=== PATIENT | female | born 1970 | race Caucasian/White ===

== ENCOUNTER 2017-11-08 07:46 | Day surgery (SDC) | payer MEDICARE, MEDICAID, SELFPAY ==
[2017-11-08 08:20] VITALS: BP 112/68; PULSE 53; RESP 18; TEMP 35.8; O2SAT 99; BMI 63.3
--- NOTE | 2017-11-08 09:40 | RAD_ITS ---
PROCEDURE: Cervical facet joint block DATE OF EXAMINATION: November 08, 2017. INDICATION: Female, 47 years old. Chronic neck pain. FLUOROSCOPY TIME (if supplied): (0:11) minutes/seconds Fluoroscopic services provided for left C4-C7 facet joint block. RAD/Cerv Spine 2 or 3 Views IMPRESSION: Imaging provided for left C4-C7 facet joint block. Electronically Signed: Sabino Ackerman MD at 11:33 EST Tel [phone], Service support ,
[2017-11-08] MEDS: MethylPREDNISolone Acetate 80 MG/ML Vial (09:55)
[2017-11-08] MEDS: Bupivacaine 0.25% 30 ML Vial (09:55)
[2017-11-08 10:07] VITALS: BP 112/68; BP 118/73; PULSE 52; RESP 16; TEMP 36.4; O2SAT 100
[2017-11-08 10:12] VITALS: BP 110/72; BP 112/68; PULSE 52; RESP 16; O2SAT 100
[2017-11-08 10:15] VITALS: BP 112/68; BP 118/74; PULSE 50; RESP 16; O2SAT 100
[2017-11-08 10:16] VITALS: BP 112/68; BP 121/73; PULSE 74; RESP 16; TEMP 36.4; O2SAT 99
[2017-11-08 10:46] VITALS: BP 112/68
--- NOTE | 2017-11-08 13:20 | OP.PCM_ITS ---
Problem List (1) Cervical spondylosis Status: Chronic (2) Degenerative disc disease, cervical Status: Chronic (3) Facet arthropathy, cervical Status: Chronic Report of Operation Date of Procedure: 11/08/17 Pre-Operative Diagnosis: Cervical spondylosis, cervical degenerative disc disease, cervical facet arthropathy Post-Operative Diagnosis: Cervical spondylosis, cervical degenerative disc disease, cervical facet arthropathy Surgery/Procedure Performed:: Left-sided cervical facet steroid injection C4, C5 , C6, C7 Description of Surgical Findings:: PROCEDURE: Left-sided cervical facet steroid injection C4, C5, C6, C7 PREOPERATIVE DIAGNOSES: Cervical spondylosis, cervical degenerative disc disease, and cervical facet arthropathy POSTOPERATIVE DIAGNOSES: Cervical spondylosis, cervical degenerative disc disease, and cervical facet arthropathy ANESTHESIA: MAC COMPLICATIONS: None BLOOD LOSS: Minimal PROCEDURE IN DETAIL: History and physical today was reviewed. Risks and benefits of the procedure were explained. The patient understood, agreed to our procedure, and informed consent was obtained. IV inserted per routine protocol. The patient was taken to the operating room, placed in a prone position with a pillow positioned underneath the chest. The neck area was prepped and draped in a sterile fashion using iodine x3. Under fluoroscopy guidance, on AP view, C4 through C7 vertebral bodies were visualized. . Under direct visualization with fluoroscopy at approximately 15-degree angle, starting on the left C4, ending on the left C7, passing through the C5-C6 using a 25-gauge 3-1/2 inch spinal needle, the needle was passed through the skin. The tip of the needle was maneuvered and directed towards the apophyseal junction of each corresponding vertebra. Once the tip of the needle was at the vicinity of the medial branch and in contact with the bone, the needle was redirected more lateral towards the medial branch. Once in contact with the medial branch, the stylet of each needle was then removed. After negative aspiration of blood with CSF and confirmation of AP as well as oblique view, a total of 3 mL of preservative- free 0.25% Marcaine with 80 mg Depo-Medrol was injected in divided doses between those 4 levels. The needles were then removed intact. The patient experienced no signs or symptoms of intrathecal, intravascular injection. The patient experienced no paraesthesia. The procedure was completed without any apparent Difficulty or complication the patient appeared to tolerate well. ASSESSMENT AND PLAN: This is a 47-year-old Female with cervical spondylosis, cervical degenerative disc disease, and cervical facet arthropathy, status post left-sided cervical facet steroid injection C4 through C7. The patient will continue her current medications. The patient will follow up in approximately 2 weeks fo reevaluation.
== END 2017-11-08 10:48 | disposition home or self-care (01) ==
LOC: SDC 07:46 → AC 07:48
PROVIDERS: Family Provider Family Medicine; PCP Family Medicine; Visit Provider Anesthesiology Pain Medicine
PROC: 3E0U3BZ Introduction of Anesthetic Agent into Joints, Percutaneous Approach (ICD-10-PCS; CPT 64490; principal; 2017-11-08 09:35)
DX: M47.892 Other spondylosis, cervical region (principal); M50.30 Other cervical disc degeneration, unspecified cervical region; M46.92 Unspecified inflammatory spondylopathy, cervical region; M48.02 Spinal stenosis, cervical region; M54.12 Radiculopathy, cervical region; M19.119 Post-traumatic osteoarthritis, unspecified shoulder; M75.02 Adhesive capsulitis of left shoulder; M70.62 Trochanteric bursitis, left hip; G89.29 Other chronic pain; Z79.891 Long term (current) use of opiate analgesic; I48.91 Unspecified atrial fibrillation; I27.20 Pulmonary hypertension, unspecified; I07.1 Rheumatic tricuspid insufficiency; I10 Essential (primary) hypertension; R01.1 Cardiac murmur, unspecified; K21.9 Gastro-esophageal reflux disease without esophagitis; F32.9 Major depressive disorder, single episode, unspecified; F41.0 Panic disorder [episodic paroxysmal anxiety]; G43.909 Migraine, unspecified, not intractable, without status migrainosus; Z79.01 Long term (current) use of anticoagulants; Z79.899 Other long term (current) drug therapy
CPT/HCPCS: 64490; 64491; 64492; 72040; J7120

== ENCOUNTER 2017-12-06 07:38 | Day surgery (SDC) | payer MEDICARE, MEDICAID, SELFPAY ==
[2017-12-06 08:02] VITALS: BP 126/68; PULSE 60; RESP 16; TEMP 36.1; O2SAT 98; BMI 64.0
--- NOTE | 2017-12-06 09:30 | RAD_ITS ---
STUDY: GREATER TROCHANTERIC INJECTION LEFT REASON FOR EXAM: Female, 47 years old. Pain. FLUOROSCOPY TIME (if supplied): (0:57) minutes/seconds TECHNIQUE: Imaging provided for left greater trochanteric bursa injection. COMPARISON: None. RAD/Hip 1 view with Pelvis IMPRESSION: Intraoperative imaging provided for left trochanteric injection. Electronically Signed: Sabino Ackerman MD at 9:04 EST Tel [phone], Service support ,
[2017-12-06] MEDS: Bupivacaine 0.25% 30 ML Vial (09:56)
[2017-12-06] MEDS: MethylPREDNISolone Acetate 80 MG/ML Vial (09:56)
[2017-12-06 10:10] VITALS: BP 120/73; BP 126/68; PULSE 65; RESP 16; TEMP 36.7; O2SAT 99
[2017-12-06 10:15] VITALS: BP 123/74; BP 126/68; PULSE 66; RESP 18; O2SAT 99
[2017-12-06 10:20] VITALS: BP 126/68; BP 134/85; PULSE 60; RESP 16; O2SAT 98
[2017-12-06 10:24] VITALS: BP 126/68; BP 128/68; PULSE 62; RESP 18; TEMP 36.4; O2SAT 100
[2017-12-06 10:50] VITALS: BP 126/68
--- NOTE | 2017-12-06 10:57 | OP.PCM_ITS ---
Problem List (1) Trochanteric bursitis of left hip Status: Chronic Report of Operation Date of Procedure: 12/06/17 Pre-Operative Diagnosis: Greater trochanteric bursitis Post-Operative Diagnosis: Greater trochanteric bursitis Surgery/Procedure Performed:: Left greater trochanteric bursa steroid injection under fluoroscopy guidance Description of Surgical Findings:: PROCEDURE: Left sided greater trochanteric bursa steroid injection under fluoroscopy guidance PREOPERATIVE DIAGNOSES: Greater trochanteric bursitis POSTOPERATIVE DIAGNOSES: Greater trochanteric bursitis ANESTHESIA: MAC COMPLICATIONS: None BLOOD LOSS: Minimal PROCEDURE IN DETAIL: History and physical today was reviewed. Risks and benefits of the procedure were explained. The patient understood, agreed to our procedure, and informed consent was obtained. IV inserted per routine protocol. The patient was taken to the operating room, placed in a supine position the left hip area was prepped and draped in a sterile fashion using iodine ?3 under direct visualization with fluoroscopy on AP view the left greater trochanter was visualized the skin and subcutaneous tissue were anesthetized with approximately 3 cc of 1% lidocaine using a 25- gauge regular needle under direct visualization with fluoroscopy on a lateral approach using a 22-gauge 5 inch spinal needle the needle was advanced via the skin the tip of the needle was was maneuvered and directed towards the greater trochanteric bursa once the tip of the needle is at the vicinity of the greater trochanteric bone and bursa after negative aspiration for blood a total of 1 cc of contrast were injected to confirm correct placement of the needle as well as wrapping around the greater trochanteric bursa, after repeated negative aspiration for blood and confirmation AP as well as oblique view a total of 10 cc of preservative-free 0.25% Marcaine with 80 mg of Depo-Medrol were injected in and around the bursa the needle was then removed intact patient experienced no signs or symptoms of intravascular injection patient experienced no paresthesia the procedure was completed without any apparent difficulty any complication and the patient appeared to tolerate well. ASSESSMENT AND PLAN: This is a 47-year-old female with greater trochanteric bursitis status post left greater trochanteric bursa steroid injection under fluoroscopic guidance patient will continue her current medications patient will follow approximately 2 weeks for reevaluation.
== END 2017-12-06 10:50 | disposition home or self-care (01) ==
LOC: SDC 07:41 → AC 07:41
PROVIDERS: Family Provider Family Medicine; PCP Family Medicine; Visit Provider Anesthesiology Pain Medicine
PROC: 3E0U3GC Introduction of Other Therapeutic Substance into Joints, Percutaneous Approach (ICD-10-PCS; CPT 20610; principal; 2017-12-06 09:25)
DX: M70.62 Trochanteric bursitis, left hip (principal); G89.29 Other chronic pain; Y93.9 Activity, unspecified; I10 Essential (primary) hypertension; R01.1 Cardiac murmur, unspecified; I48.91 Unspecified atrial fibrillation; Z79.01 Long term (current) use of anticoagulants; J45.909 Unspecified asthma, uncomplicated; G43.909 Migraine, unspecified, not intractable, without status migrainosus; K21.9 Gastro-esophageal reflux disease without esophagitis; K58.9 Irritable bowel syndrome, unspecified; F41.9 Anxiety disorder, unspecified; F32.9 Major depressive disorder, single episode, unspecified; M06.9 Rheumatoid arthritis, unspecified; E66.01 Morbid (severe) obesity due to excess calories; Z68.44 Body mass index [BMI] 60.0-69.9, adult; M48.02 Spinal stenosis, cervical region; M50.10 Cervical disc disorder with radiculopathy, unspecified cervical region; M46.92 Unspecified inflammatory spondylopathy, cervical region; M47.812 Spondylosis without myelopathy or radiculopathy, cervical region; M19.019 Primary osteoarthritis, unspecified shoulder; M75.00 Adhesive capsulitis of unspecified shoulder; M79.2 Neuralgia and neuritis, unspecified; Z79.52 Long term (current) use of systemic steroids; Z79.891 Long term (current) use of opiate analgesic; Z79.899 Other long term (current) drug therapy
CPT/HCPCS: 20610; 73501; 76000; J7120

== ENCOUNTER → 2018-01-20 10:53 | Outpatient (CLI) | payer MEDICARE, MEDICAID, SELFPAY ==
--- NOTE | 2018-01-20 11:06 | RAD_ITS ---
STUDY: X-RAY - PELVIS AND LEFT HIP REASON FOR EXAM: Female, 47 years old. Left hip pain. TECHNIQUE: Radiological exam, hip, unilateral, with pelvis when performed; 2 or 3 views. COMPARISON: None. FINDINGS: There is a non-specific bowel gas pattern. Normal visualized soft tissue structures. Normal bilateral iliac wings, sacroiliac joints and visualized sacrum. Normal bilateral superior and inferior pubic rami. Normal pubic symphysis. Normal bilateral ischial tuberosities. Normal visualized femoral head. Normal acetabulum. Normal hip joint. RAD/Hip 2-3 Views with Pelvis IMPRESSION: Normal x-ray examination of the pelvis and hip. Electronically Signed: Sabino Ackerman MD at 12:36 EDT Tel [phone], Service support ,
== END ==
PROVIDERS: Family Provider Family Medicine; PCP Family Medicine; Visit Provider Anesthesiology Pain Medicine
DX: M25.552 Pain in left hip (principal)
CPT/HCPCS: 73502

== ENCOUNTER 2018-02-07 12:02 | Day surgery (SDC) | payer MEDICARE, MEDICAID, SELFPAY ==
[2018-02-07] VITALS (7 sets, daily range): BP systolic 116–126; BP diastolic 63–70; PULSE 52–56; RESP 16; TEMP 36.1–36.4; O2SAT 99–100; BMI 67.9
--- NOTE | 2018-02-07 13:10 | RAD_ITS ---
STUDY: X-RAY - SACROILIAC JOINTS REASON FOR EXAM: Female, 47 years old. Left SI joint injection. TECHNIQUE: Fluoroscopic assistance was provided to Dr. Mix. A single intraprocedural fluoroscopic spot view(s) of the sacroiliac joint was obtained. COMPARISON: None. FINDINGS: A metal needle is seen at the inferior aspect of the left sacroiliac joint, and localizing contrast injection opacifies tissues along the inferior margin of the SI joint. RAD/Fluoro Guided Needle Placement IMPRESSION: Fluoroscopic guidance for left sacroiliac joint injection. Electronically Signed: Humble Parker MD at 15:56 EDT , Service support ,
[2018-02-07] MEDS: MethylPREDNISolone Acetate 80 MG/ML Vial (13:54)
[2018-02-07] MEDS: Bupivacaine 0.25% 30 ML Vial (13:54)
--- NOTE | 2018-02-07 14:05 | PCM.OPRPT ---
Problem List (1) Sacroiliitis Status: Chronic (2) Sacrococcygeal disorders, not elsewhere classified Status: Chronic Report of Operation Date of Procedure: 02/07/18 Pre-Operative Diagnosis: Sacroiliitis, sacroiliac joint dysfunction Post-Operative Diagnosis: Sacroiliitis, sacroiliac joint dysfunction Surgery/Procedure Performed:: Left sacroiliac joint steroid injection under fluoroscopic guidance Description of Surgical Findings:: PROCEDURE: Left-sided sacroiliac joint steroid injection under fluoroscopic guidance PREOPERATIVE DIAGNOSIS: Sacroiliitis, sacroiliac joint dysfunction POSTOPERATIVE DIAGNOSIS: Sacroiliitis, sacroiliac joint dysfunction ANESTHESIA: MAC COMPLICATIONS: None BLOOD LOSS: Minimal PROCEDURE IN DETAIL: History and physical today was reviewed. Risks and benefits of the procedure were explained. The patient understood, agreed to our procedure, and informed consent was obtained. IV inserted per routine protocol. The patient was taken to the operating room, placed in a prone position with a pillow positioned underneath the abdomen. The left side of the lower back and buttock area was prepped and draped in a sterile fashion using iodine ?3 under fluoroscopic guidance on AP with approximately 15? angle the left sacroiliac joint with visualized the skin and subcutaneous tissue and size approximately 3 cc of 1% lidocaine using a 25-gauge regular needle under direct visualization fluoroscopy at approximately 15? angle using a 22-gauge 5 inch spinal needle the needle passed through the skin the tip of the needle's maneuver and directed towards the inferior one third of the posterior SI joint once the tip of the needle was at the vicinity of the joint after negative aspiration for blood or CSF a total of 1 cc of contrast were injected to confirm correct placement of the needle as well as cephalocaudad spread the confirmation was obtained on AP as well as lateral view after repeated negative aspiration confirmation a total of 4 cc of preservative-free 0.25% Marcaine with 40 mg of Depo-Medrol were injected in and around the SI joint the needle was then removed intact. The patient experienced no signs or symptoms intrathecal, intravascular injection. The patient experienced no paraesthesia. The procedure was completed without any apparent difficult, any complication. The patient appeared to tolerate well. ASSESSMENT AND PLAN: This is a 47-year-old Female with sacroiliitis, sacroiliac joint dysfunction status post left sacroiliac joint steroid injection under fluoroscopic guidance. The patient will continue her current medications. The patient will follow in approximately 2 weeks for possible repeat of the procedure if indicated.
--- NOTE | 2018-02-07 14:17 | OP.PCM_ITS ---
Problem List (1) Sacroiliitis Status: Chronic (2) Sacrococcygeal disorders, not elsewhere classified Status: Chronic Report of Operation Date of Procedure: 02/07/18 Pre-Operative Diagnosis: Sacroiliitis, sacroiliac joint dysfunction Post-Operative Diagnosis: Sacroiliitis, sacroiliac joint dysfunction Surgery/Procedure Performed:: Left sacroiliac joint steroid injection under fluoroscopic guidance Description of Surgical Findings:: PROCEDURE: Left-sided sacroiliac joint steroid injection under fluoroscopic guidance PREOPERATIVE DIAGNOSIS: Sacroiliitis, sacroiliac joint dysfunction POSTOPERATIVE DIAGNOSIS: Sacroiliitis, sacroiliac joint dysfunction ANESTHESIA: MAC COMPLICATIONS: None BLOOD LOSS: Minimal PROCEDURE IN DETAIL: History and physical today was reviewed. Risks and benefits of the procedure were explained. The patient understood, agreed to our procedure, and informed consent was obtained. IV inserted per routine protocol. The patient was taken to the operating room, placed in a prone position with a pillow positioned underneath the abdomen. The left side of the lower back and buttock area was prepped and draped in a sterile fashion using iodine ?3 under fluoroscopic guidance on AP with approximately 15? angle the left sacroiliac joint with visualized the skin and subcutaneous tissue and size approximately 3 cc of 1% lidocaine using a 25- gauge regular needle under direct visualization fluoroscopy at approximately 15 ? angle using a 22-gauge 5 inch spinal needle the needle passed through the skin the tip of the needle's maneuver and directed towards the inferior one third of the posterior SI joint once the tip of the needle was at the vicinity of the joint after negative aspiration for blood or CSF a total of 1 cc of contrast were injected to confirm correct placement of the needle as well as cephalocaudad spread the confirmation was obtained on AP as well as lateral view after repeated negative aspiration confirmation a total of 4 cc of preservative-free 0.25% Marcaine with 40 mg of Depo-Medrol were injected in and around the SI joint the needle was then removed intact. The patient experienced no signs or symptoms intrathecal, intravascular injection. The patient experienced no paraesthesia. The procedure was completed without any apparent difficult, any complication. The patient appeared to tolerate well. ASSESSMENT AND PLAN: This is a 47-year-old Female with sacroiliitis, sacroiliac joint dysfunction status post left sacroiliac joint steroid injection under fluoroscopic guidance. The patient will continue her current medications. The patient will follow in approximately 2 weeks for possible repeat of the procedure if indicated.
== END 2018-02-07 14:46 | disposition home or self-care (01) ==
LOC: SDC 12:03 → AC 12:06
PROVIDERS: Family Provider Family Medicine; PCP Family Medicine; Visit Provider Anesthesiology Pain Medicine
PROC: 3E0U3GC Introduction of Other Therapeutic Substance into Joints, Percutaneous Approach (ICD-10-PCS; CPT 27096; principal; 2018-02-07 13:05)
DX: M46.1 Sacroiliitis, not elsewhere classified (principal); M53.3 Sacrococcygeal disorders, not elsewhere classified; I48.91 Unspecified atrial fibrillation; I10 Essential (primary) hypertension; E07.9 Disorder of thyroid, unspecified; K21.9 Gastro-esophageal reflux disease without esophagitis; F32.9 Major depressive disorder, single episode, unspecified; F41.9 Anxiety disorder, unspecified; M06.862 Other specified rheumatoid arthritis, left knee; M06.861 Other specified rheumatoid arthritis, right knee; G43.909 Migraine, unspecified, not intractable, without status migrainosus; Z79.891 Long term (current) use of opiate analgesic; Z79.01 Long term (current) use of anticoagulants; Z79.899 Other long term (current) drug therapy
CPT/HCPCS: 27096; 76000; 77002; J7120

== ENCOUNTER 2018-02-25 05:24 | Day surgery (SDC) | payer MEDICARE, MEDICAID, SELFPAY ==
--- NOTE | 2018-02-21 11:26 | RAD_ITS ---
STUDY: X-RAY CHEST REASON FOR EXAM: Female, 47 years old. Preoperative evaluation. Shortness of breath. TECHNIQUE: PA and lateral views of the chest. COMPARISON: Comparison is made with prior study dated May 07, 2017. FINDINGS: The lungs are clear and expanded. There is no demonstrated pleural abnormality. Normal size heart. Normal mediastinum and gene. Normal visualized pulmonary arteries. Normal visualized aortic arch and descending thoracic aorta. Normal visualized thoracic spine. Normal visualized ribs, clavicles, and shoulders. There is no demonstrated abnormality of the visualized soft tissue structures of the upper abdomen. RAD/Chest PA and Lateral IMPRESSION: Normal x-ray examination of the chest. Electronically Signed: Sabino Ackerman MD at 12:17 EDT Tel [phone], Service support ,
[2018-02-21 13:12] LABS: Hematocrit 35.4 % (37-47); Hemoglobin 11.5 g/dl (12.0-15.0); Mean Corp Hgb Conc 32.5 g/gl (32-36); Mean Corpuscular Hgb 28.8 pg (27.0-32.0); Mean Corpuscular Volume 88.5 fL (81-99); Mean Platelet Vol. 10.8 fl (6.2-12.0); Platelet Count 317 K/mm3 (150-450); RBC Distribution Width CV 16.2 % (11.6-14.6); RBC Distribution Width SD 52.3 fl (35.1-43.9); White Blood Count 6.8 K/mm3 (4.4-11.0)
[2018-02-21 13:13] LABS: Scan Indicated on CBC? Y/N NO
[2018-02-21 14:01] LABS: BUN 13 mg/dL (7-18); BUN/Creat Ratio 14.9 RATIO (10-20); Calcium,Total 8.9 mg/dL (8.5-10.1); Chloride 105 mmol/L (98-107); Creatinine, Serum 0.87 mg/dL (0.55-1.02); EST Glomerular Filtration Rate 74 mL/min (>60); Est Glom Filt Rate - Afr Amer 90 mL/min (>60); Glucose 75 mg/dL (74-106); Potassium 4.2 mmol/L (3.5-5.1); Sodium Level 135 mmol/L (136-145)
[2018-02-21 14:02] LABS: Anion Gap 9 (5-15); Thyroid Stim Hormone (TSH) 1.78 uIU/mL (0.358-3.74)
[2018-02-25] VITALS (7 sets, daily range): BP systolic 98–139; BP diastolic 42–79; PULSE 50–58; RESP 14–16; TEMP 36.2–36.7; O2SAT 97–99; BMI 66.6
[2018-02-25] MEDS: Cefazolin 2 GM in 0.9% Normal Saline 100 ML IV (07:15)
--- NOTE | 2018-02-25 07:27 | PCM.OPRPT ---
Report of Operation Date of Procedure: 02/25/18 Pre-Operative Diagnosis: Recurrent rotator cuff tear left shoulder Post-Operative Diagnosis: Recurrent rotator cuff left shoulder Surgery/Procedure Performed:: Revision rotator cuff repair left shoulder Description of Surgical Findings:: Returns tear supraspinatus japanese interpreter: Phuc Harkins Type of Anesthesia:: General Anesthesiologist: Octaviano Samuel Estimated Blood Loss (mL): 25 Fluids Replaced: See anesthesia report Description of Procedure: Implants: Arthrex double loaded 5.5 mm corkscrew ?1, speed bridge construct 1 of the medial plants failed fixation, 2 swivel locks for lateral row Surgical indications: Sienna is a 47-year-old female who had previously undergone rotator cuff repair by me several months ago. MRI does reveal that the rotator cuff repair had failed. She has elected to undergo revision of that repair Procedure description: Patient was greeted in the preoperative area. Their left shoulder was marked with surgical marker. Preoperative antibiotics were administered. The patient was then taken to the operating suite in a stable condition. After adequate anesthesia was obtained and it was secured there placed in standard beachchair position. All bony prominences were well-padded her head was secured in a beachchair positioner. The arm was then prepped and draped in the usual sterile fashion. Surgical timeout was performed surgery was commenced. Standard posterior viewing portal was made and 30? arthroscope was introduced into the glenohumeral joint. Anterior portal was made under direct visualization. Extensive debridement of the anterior capsule was performed evaluation of the shoulder itself was performed with the following findings: Previous repair sutures intact as well as the anchor in place however the tissue pulled away from the prepared greater tuberosity. Spinal needle was used to place a PDS suture through this tear for easier identification from the bursal side. The subacromial space was then entered and extensive debridement of the subacromial bursa was performed. I then used a taper and floater and remove the previous suture material. I debrided the recurrent tear which revealed approximately 2-1/2 cm mesenteric shaped tear I then debrided the greater tuberosity and decorticated this for bleeding bony surface for repair. I did require sensory portals because of the patient's size and for easier suture management. A passport was placed however because of the patient's size I did require a formal cannula as the passport was not long enough. Once I had obtained viable rotator cuff tissue were then percutaneously placed speed bridge medial row and passes through the rotator cuff. As I was placing tension on the suture did identify that the anchor itself lost fixation and pulled out of patient's poor bone quality. Because of this I then placed a double loaded 5.5 mm corkscrew which did purchase nicely I then used a scorpion suture passer to pass the 2 suture limbs in a horizontal mattress type fashion through the supraspinatus. I then parked these in the accessory posterior lateral portal. The second speed bridge was then placed the medial row posteriorly good purchase was obtained with this and the suture was then passed with the scorpion suture passer. At this point I retrieved the horizontal mattress sutures and tied a modified Road sliding locking knot with 3 half hitches to secure the rotator cuff to the prepared bone at the medial row excellent loop and not security was obtained and approximation of the rotator cuff to the decorticated bone was achieved. At this point I then prepared for the lateral row with thermal wand and retrieved one suture limb from each horizontal mattress knot as well as 1 of the fiber tapes posteriorly from the speed bridge. These were placed in a swivel lock and placed in the lateral aspect the greater tuberosity to create lateral repair excellent purchase was obtained and these were trimmed at the anchor. The remaining sutures were then retrieved through the cannula placed in a swivel lock and placed posteriorly to this to complete the double row for anchor repair. Was extremely happy with the fixation and approximation of the rotator cuff to the prepared bone. This point all instruments were removed the arthroscopy portals were closed in a standard fashion with 4-0 nylon Physician food service assistant was integral in all portions of this procedure. They assisted with positioning the patient, draping the extremity, holding retractors, closing the wound, and applying the dressing. This was all done under my direct supervision. The physician food service assistant was essential for a successful, efficient surgery. - Admit VTE Documentation VTE Present on Admission: Yes VTE Mechan Device Prophylaxis: SCD's, Knee High CARON Hose VTE Pharm Prophylaxis ordered?: Yes
--- NOTE | 2018-02-25 07:36 | DCINST_ITS ---
Discharge Diet: No Restrictions Discharge Activity: May Not Drive May shower in (days): 1 Ice area for (Minutes): 20 - Ice area for 20 minutes each hour while awake Call your doctor if your incision/area has: Continuous Slow Oozing, Sudden Increased Bleeding, Increased Pain/ Swelling, Increased Redness, Foul Smelling Discharge Call your doctor if you observe: Fever of 101 or Higher, Coldness, Increased Pain, Numbness or Tingling, Change in Color Suture Line Care: Avoid Pulling/Pushing Change Dressing in (Days):: 3 Remove Dressing in (days):: 3 Cleanse incision/area with: Soap & Water Additional Instructions: Maintain UltraSling for 6 weeks, may remove for bathing and therapy Allergies/Adverse Reactions: Allergies amoxicillin trihydrate [From Augmentin] Allergy (Verified 11/03/17 14:03) Hives Iodinated Contrast- Oral and IV Dye [CONTRASTS] Allergy (Verified 11/03/17 14:03 ) Anaphylaxis potassium clavulanate [From Augmentin] Allergy (Verified 11/03/17 14:03) Hives Medications to take at Discharge Amlodipine [Norvasc] 10 mg PO QHS 08/01/14 Furosemide [Lasix] 80 mg PO BID 08/01/14 Isosorbide Mononitrate [Imdur] 60 mg PO BID 08/01/14 Lisinopril [Zestril] 10 mg PO DAILY 08/01/14 Topiramate [Topamax] 100 mg PO BID 08/01/14 Apixaban [Eliquis] 5 mg PO BID 05/07/17 Escitalopram Oxalate [Lexapro] 20 mg PO DAILY 05/07/17 Gabapentin [Neurontin] 300 mg PO TID 05/07/17 Melatonin 10 mg PO QHS 05/07/17 Omeprazole [Prilosec] 20 mg PO DAILY 05/07/17 Sotalol HCl [Betapace AF (Beta Bijan)] 120 mg PO BID 05/07/17 Cyclobenzaprine [Flexeril] 10 mg PO TID 07/13/17 Dicyclomine HCl [Bentyl] 20 mg PO TIDAC #20 capsule 10/07/17 Ondansetron [Zofran Odt] 4 mg PO Q8H PRN PRN #10 tablet 10/07/17 Oxycodone [Oxyir] 5 mg PO Q4H PRN PRN 7 Days #56 tablet 02/25/18 The following prescriptions were given: Oxycodone [Oxyir] 5 mg PO Q4H PRN PRN 7 Days #56 tablet PRN Reason: Pain Please Follow Up With: Abdiel Leija, When: as scheduled
[2018-02-25] MEDS: Bupivacaine Mpf 0.5% 30 ML VIAL (09:07)
== END 2018-02-25 11:44 | disposition home or self-care (01) ==
LOC: SDC 05:25 → AC 05:26
PROVIDERS: Family Provider Family Medicine; PCP Family Medicine; Visit Provider Orthopaedic Surgery
PROC: (CPT 29827; principal; 2018-02-25 06:55)
DX: M75.102 Unspecified rotator cuff tear or rupture of left shoulder, not specified as traumatic (principal); I48.91 Unspecified atrial fibrillation; R01.1 Cardiac murmur, unspecified; E66.01 Morbid (severe) obesity due to excess calories; Z68.44 Body mass index [BMI] 60.0-69.9, adult; J45.909 Unspecified asthma, uncomplicated; K21.9 Gastro-esophageal reflux disease without esophagitis; K58.9 Irritable bowel syndrome, unspecified; G43.909 Migraine, unspecified, not intractable, without status migrainosus; F32.9 Major depressive disorder, single episode, unspecified; F41.9 Anxiety disorder, unspecified; E07.9 Disorder of thyroid, unspecified; Z98.84 Bariatric surgery status; Z86.73 Personal history of transient ischemic attack (TIA), and cerebral infarction without residual deficits; Z79.01 Long term (current) use of anticoagulants; Z79.899 Other long term (current) drug therapy
CPT/HCPCS: 01630; 29827; 36415; 71046; 80048; 84443; 85027; J7120; C1713; J2405

== ENCOUNTER 2018-05-23 09:59 | Day surgery (SDC) | payer MEDICARE, MEDICAID, SELFPAY ==
[2018-05-23 10:32] VITALS: BP 115/48; PULSE 66; RESP 18; TEMP 36; O2SAT 100; BMI 67.9
[2018-05-23] MEDS: Bupivacaine 0.25% 30 ML Vial (11:18)
[2018-05-23] MEDS: MethylPREDNISolone Acetate 80 MG/ML Vial (11:18)
[2018-05-23 11:25] VITALS: BP 110/54; BP 115/48; PULSE 66; RESP 22; TEMP 36.5; O2SAT 98
[2018-05-23 11:30] VITALS: BP 108/56; BP 115/48; PULSE 66; RESP 22; O2SAT 100
[2018-05-23 11:35] VITALS: BP 108/52; BP 115/48; PULSE 66; RESP 20; O2SAT 100
[2018-05-23 11:40] VITALS: BP 111/56; BP 115/48; PULSE 66; RESP 18; TEMP 36.5; O2SAT 100
[2018-05-23 12:00] VITALS: BP 115/48
--- NOTE | 2018-05-23 13:05 | PCM.OPRPT ---
Problem List (1) Sacrococcygeal disorders, not elsewhere classified Status: Chronic (2) Sacroiliitis Status: Chronic Report of Operation Date of Procedure: 05/23/18 Pre-Operative Diagnosis: Sacroiliitis, sacroiliac joint dysfunction Post-Operative Diagnosis: Sacroiliitis, sacroiliac joint dysfunction Surgery/Procedure Performed:: Left sacroiliac joint steroid injection under fluoroscopic guidance Description of Surgical Findings:: PROCEDURE: Left sacroiliac joint steroid injection under fluoroscopic guidance PREOPERATIVE DIAGNOSIS: Sacroiliitis, sacroiliac joint dysfunction POSTOPERATIVE DIAGNOSIS: Sacroiliitis, sacroiliac joint dysfunction ANESTHESIA: MAC COMPLICATIONS: None BLOOD LOSS: Minimal PROCEDURE IN DETAIL: History and physical today was reviewed. Risks and benefits of the procedure were explained. The patient understood, agreed to our procedure, and informed consent was obtained. IV inserted per routine protocol. The patient was taken to the operating room, placed in a prone position with a pillow positioned underneath the abdomen. The lower back and buttock area was prepped and draped in a sterile fashion using iodine ?3 under fluoroscopy guidance on an AP view the left SI joint was visualized the skin and subcutaneous tissue were anesthetized with approximately 5 cc of 1% lidocaine using a 25-gauge regular needle under direct visual visualization with fluoroscopy at approximately 15? angle starting on the left sacroiliac joint using a 22-gauge 3-1/2 inch spinal needle the needle was advanced via the skin the tip of the needle's maneuver and directed towards the inferior one third of the posterior SI joint once tip of the needle was at the vicinity of the SI joint after negative aspiration for blood or CSF and confirmation of AP as well as oblique view a total of 1 cc of contrast were injected in divided doses to confirm correct placement of the needle as well as cephalocaudad spread after repeated negative aspiration and confirmation a total of 4 cc of preservative-free 0.25% Marcaine with 40 mg of Depo-Medrol were injected in divided doses between both levels. The needles were then removed intact. The patient experienced no signs or symptoms intrathecal, intravascular injection. The patient experienced no paraesthesia. The procedure was completed without any apparent difficult, any complication. The patient appeared to tolerate well. ASSESSMENT AND PLAN: This is a 48-year-old Female with sacroiliitis, sacroiliac joint dysfunction status post left sacroiliac joint steroid injection under fluoroscopic guidance. The patient will continue her current medications. The patient will follow in approximately 2 weeks for possible repeat of the procedure if indicated.
== END 2018-05-23 12:03 | disposition home or self-care (01) ==
LOC: SDC 10:00
PROVIDERS: Family Provider Family Medicine; PCP Family Medicine; Visit Provider Anesthesiology Pain Medicine
PROC: 3E0U3GC Introduction of Other Therapeutic Substance into Joints, Percutaneous Approach (ICD-10-PCS; CPT 27096; principal; 2018-05-23 11:05)
DX: M46.1 Sacroiliitis, not elsewhere classified (principal); M53.3 Sacrococcygeal disorders, not elsewhere classified; M47.22 Other spondylosis with radiculopathy, cervical region; M48.02 Spinal stenosis, cervical region; M50.30 Other cervical disc degeneration, unspecified cervical region; M19.019 Primary osteoarthritis, unspecified shoulder; M75.00 Adhesive capsulitis of unspecified shoulder; G89.29 Other chronic pain; M70.62 Trochanteric bursitis, left hip; I10 Essential (primary) hypertension; E07.9 Disorder of thyroid, unspecified; R01.1 Cardiac murmur, unspecified; E66.01 Morbid (severe) obesity due to excess calories; Z68.44 Body mass index [BMI] 60.0-69.9, adult; G43.909 Migraine, unspecified, not intractable, without status migrainosus; J45.909 Unspecified asthma, uncomplicated; K58.9 Irritable bowel syndrome, unspecified; K21.9 Gastro-esophageal reflux disease without esophagitis; E78.00 Pure hypercholesterolemia, unspecified; F41.9 Anxiety disorder, unspecified; F32.9 Major depressive disorder, single episode, unspecified; M06.9 Rheumatoid arthritis, unspecified; Z79.891 Long term (current) use of opiate analgesic; Z79.01 Long term (current) use of anticoagulants; Z79.899 Other long term (current) drug therapy
CPT/HCPCS: 01992; 64493; 76000; 77002; J7120; J2405

== ENCOUNTER 2018-06-08 13:03 | Emergency (ER) | payer MEDICARE, MEDICAID, SELFPAY ==
[2018-06-08 13:04] VITALS: BP 125/83; PULSE 71; RESP 22; TEMP 36.6; O2SAT 99; BMI 66.2
--- NOTE | 2018-06-08 13:49 | ED.DEP ---
ED Disposition - Plan for ED Patient: Chief Complaint: Anxiety Instructions: ED Panic Attack Prescriptions: Lorazepam [Ativan] 1 mg PO TID PRN #6 tablet PRN Reason: Anxiety Referrals: Andres Wade MD [Primary Care Provider] - [facility] [GROUP OF PHYSICIANS] -
[2018-06-08] MEDS: LORazepam 1 MG Tablet PO (13:53)
--- NOTE | 2018-06-08 13:53 | ED.VISSUMM ---
- ER Visit Summary Date of Service: 06/08/18 Chief Complaint: Panic attack History of Present Illness: The patient is a 48 F presenting with panic attack. She states her symptoms started 2 days ago. She has been arguing with her daughter. She was brought in today by her objective c developer. She takes Vistaril as needed for anxiety. Her counselor is requesting a benzo on a short-term basis. Her appointment with the counseling center to see the psychiatrist is on June 22. She denies suicidal thoughts or plan. Denies chest pain or shortness of breath. Denies other complaints. Physical Examination: Vitals are stable. Patient is afebrile. Alert no acute distress. HEENT exam is unremarkable. Neck is supple. Lungs are clear and equal bilaterally. Heart is regular rate and rhythm. Abdomen is soft nontender nondistended. Extremities are unremarkable. Skin is warm and dry. No focal neurologic deficit. Anxious. No suicidal ideation Remainder of exam is unremarkable. Emergency Department Course and Treatment: Patient is given Ativan p.o. with improvement. She is given a prescription for Ativan #6. Discussed with the counseling center, they are unable to move up her appointment. She will follow-up at her scheduled appointment on June 22. She is advised to return to the ED for any worsening complaints. Disposition: Discharge home Impression: Anxiety This note was generated with [employer] dictation software. It may contain incorrect words, spelling, and punctuation that were not noted in review of the chart prior to signing ED Disposition - Plan for ED Patient: Chief Complaint: Anxiety Instructions: ED Panic Attack Prescriptions: Lorazepam [Ativan] 1 mg PO TID PRN #6 tablet PRN Reason: Anxiety Referrals: [facility] [GROUP OF PHYSICIANS] - Andres Wade MD [Primary Care Provider] -
[2018-06-08 14:11] VITALS: BP 140/81; PULSE 63; RESP 16; O2SAT 100
== END 2018-06-08 14:12 | disposition home or self-care (01) ==
LOC: ED 13:41
PROVIDERS: Emergency Provider Emergency Medicine; Family Provider Family Medicine; PCP Family Medicine
DX: F41.9 Anxiety disorder, unspecified (principal); F32.9 Major depressive disorder, single episode, unspecified; I10 Essential (primary) hypertension; Z79.899 Other long term (current) drug therapy
CPT/HCPCS: 99283

== ENCOUNTER 2018-08-08 07:38 | Day surgery (SDC) | payer MEDICARE, MEDICAID, SELFPAY ==
[2018-08-08 07:58] VITALS: BP 127/90; PULSE 62; RESP 20; TEMP 36.6; O2SAT 100; BMI 69.3
[2018-08-08] MEDS: MethylPREDNISolone Acetate 80 MG/ML Vial (08:36)
[2018-08-08] MEDS: Bupivacaine 0.5% PF 10 ML VIAL (08:37)
[2018-08-08 08:46] VITALS: BP 127/90; BP 96/46; PULSE 60; RESP 16; TEMP 36.6; O2SAT 99
--- NOTE | 2018-08-08 08:49 | PCM.OPRPT ---
Problem List (1) Cervical spondylosis Status: Chronic (2) Degenerative disc disease, cervical Status: Chronic (3) Facet arthropathy, cervical Status: Chronic Report of Operation Date of Procedure: 08/08/18 Pre-Operative Diagnosis: Cervical spondylosis, cervical degenerative disc disease, cervical facet arthropathy Post-Operative Diagnosis: Cervical spondylosis, cervical degenerative disc disease, cervical facet arthropathy Surgery/Procedure Performed:: Left-sided cervical facet steroid injection at C4, C5, C6, C7 Description of Surgical Findings:: PROCEDURE: Left-sided cervical facet steroid injection C4, C5, C6, C7 PREOPERATIVE DIAGNOSES: Cervical spondylosis, cervical degenerative disc disease, and cervical facet arthropathy POSTOPERATIVE DIAGNOSES: Cervical spondylosis, cervical degenerative disc disease, and cervical facet arthropathy ANESTHESIA: MAC COMPLICATIONS: None BLOOD LOSS: Minimal PROCEDURE IN DETAIL: History and physical today was reviewed. Risks and benefits of the procedure were explained. The patient understood, agreed to our procedure, and informed consent was obtained. IV inserted per routine protocol. The patient was taken to the operating room, placed in a prone position with a pillow positioned underneath the chest. The neck area was prepped and draped in a sterile fashion using iodine x3. Under fluoroscopy guidance, on AP view, C4 through C7 vertebral bodies were visualized, at approximately 10 degrees starting on the left C4 ending on the left C7 passing through the C5-C6 using a 25-gauge 3-1/2 inch spinal needle the needle was advanced via the skin through the needle's maneuver and directed towards the epiphyseal junction of each corresponding vertebra once the tip of the needle was at the vicinity of the medial branch and contact with the bone after negative aspiration for blood or CSF and confirmation AP oblique as well as lateral view a total of 4 cc of preservative-free 0.25% Marcaine with 80 mg of Depo-Medrol were injected in divided doses between those 4 levels the needles were then removed intact patient experienced no sinus symptoms of intrathecal or intravascular injection patient experienced no paresthesia the procedure was completed without any apparent difficulty any complication the patient appeared to tolerate well. ASSESSMENT AND PLAN: This is a 48-year-old Female with cervical spondylosis, cervical degenerative disc disease, and cervical facet arthropathy, status post left-sided cervical facet steroid injection C4 through C7. The patient will continue her current medications. The patient will follow up in approximately 2 weeks fo reevaluation.
[2018-08-08 08:50] VITALS: BP 127/90; BP 93/60; PULSE 60; RESP 16; O2SAT 99
[2018-08-08 08:55] VITALS: BP 112/47; BP 127/90; PULSE 57; RESP 14; TEMP 36.4; O2SAT 100
[2018-08-08 09:15] VITALS: BP 127/90
--- NOTE | 2018-08-08 09:15 | RAD_ITS ---
STUDY: X-RAY - CERVICAL SPINE REASON FOR EXAM: Female, 48 years old. Cervical block facet at C4-C7 TECHNIQUE: 4 view(s) of the cervical spine were obtained. COMPARISON: None FINDINGS: 4 intraoperative spot fluoroscopy images were obtained. No acute findings. Please see performing physician's report for full details. RAD/Cerv Spine 4 or 5 Views IMPRESSION: As above Electronically Signed: Andrew Weinstein DO at 12:42 EST Tel , Service support ,
== END 2018-08-08 09:50 | disposition home or self-care (01) ==
LOC: SDC 07:40
PROVIDERS: Family Provider Family Medicine; PCP Family Medicine; Referring Provider Anesthesiology Pain Medicine; Visit Provider Anesthesiology Pain Medicine
PROC: 3E0U3BZ Introduction of Anesthetic Agent into Joints, Percutaneous Approach (ICD-10-PCS; CPT 64490; principal; 2018-08-08 09:10)
DX: M47.892 Other spondylosis, cervical region (principal); M50.30 Other cervical disc degeneration, unspecified cervical region; M46.82 Other specified inflammatory spondylopathies, cervical region; I10 Essential (primary) hypertension; I48.91 Unspecified atrial fibrillation; E03.9 Hypothyroidism, unspecified; K21.9 Gastro-esophageal reflux disease without esophagitis; F32.9 Major depressive disorder, single episode, unspecified; F41.9 Anxiety disorder, unspecified; Z79.01 Long term (current) use of anticoagulants; Z79.899 Other long term (current) drug therapy
CPT/HCPCS: 64491; 64492; 64490; 72050; J7120; J3490

== ENCOUNTER 2018-12-01 09:45 | Outpatient (RCR) | payer MEDICARE, MEDICAID, SELFPAY ==
[2018-11-08 16:30] VITALS: BMI 63.3
[2018-11-10 11:07] VITALS: BP 110/72; PULSE 67; RESP 18; TEMP 36; BMI 73.8
--- NOTE | 2018-11-10 12:31 | HP.PCM_ITS ---
(1) Ulcer of right lower extremity with fat layer exposed Status: Acute Current Visit: Yes Code(s): L97.912 - Non-pressure chronic ulcer of unspecified part of right lower leg with fat layer exposed (2) Morbid obesity Status: Chronic Current Visit: Yes Code(s): E66.01 - Morbid (severe) obesity due to excess calories (3) Bilateral lower extremity edema Status: Chronic Current Visit: Yes Code(s): R60.0 - Localized edema History of Present Illness Chief Complaint: Right lower extremity ulcers. History of Wound: Ms. Molina is a 48-year-old who was referred to the wound center by her primary care physician due to right lower extremity ulcers. Per patient, started out with redness pain and swelling for which she was managed for cellulitis. Subsequently developed ulcerations in her calf and enciso. She feels well other at this time and denies chills, fever, nausea, vomitting or change in her bowel habit. Past Medical History Past Medical History: Chronic Problems Trochanteric bursitis of left hip (Chronic) Sacroiliitis (Chronic) Sacrococcygeal disorders, not elsewhere classified (Chronic) Morbid obesity (Chronic) Bilateral lower extremity edema (Chronic) Facet arthropathy, cervical (Chronic) Degenerative disc disease, cervical (Chronic) Cervical spondylosis (Chronic) Allergies/Adverse Reactions: Allergies amoxicillin trihydrate [From Augmentin] Allergy (Verified 08/08/18 07:53) Hives baclofen Allergy (Verified 11/10/18 11:36) Unknown gabapentin Allergy (Verified 11/10/18 11:36) Unknown Iodinated Contrast- Oral and IV Dye [CONTRASTS] Allergy (Verified 08/08/18 07:53) Anaphylaxis potassium clavulanate [From Augmentin] Allergy (Verified 08/08/18 07:53) Hives shrimp Allergy (Verified 11/10/18 11:36) Unknown valerian root Allergy (Uncoded 11/10/18 11:36) Unknown Home Medications: Ambulatory Orders Medication Instructions Recorded Furosemide [Lasix] 80 mg PO BID 08/01/14 Isosorbide Mononitrate [Imdur] 120 mg PO DAILY 08/01/14 Topiramate [Topamax] 100 mg PO TID 08/01/14 Apixaban [Eliquis] 5 mg PO BID 05/07/17 Omeprazole [Prilosec] 20 mg PO DAILY 05/07/17 Sotalol HCl [Betapace AF (Beta 80 mg PO BID 05/07/17 Bijan)] Cyclobenzaprine [Flexeril] 10 mg PO TID PRN 07/13/17 Ondansetron [Zofran Odt] 4 mg PO Q8H PRN PRN #10 tablet 10/07/17 Amitriptyline HCl 25 mg PO 06/08/18 Dicyclomine HCl [Bentyl] 10 mg PO 4X/DAY 06/08/18 Hydroxyzine Pamoate [Vistaril] 100 mg PO TID PRN PRN 06/08/18 Spironolactone 25 mg PO DAILY 06/08/18 ALPRAZolam [Xanax] 0.5 mg PO QHS PRN 07/01/18 Albuterol Inhaler [Ventolin Hfa 2 puff INHALATION Q6H PRN PRN 11/10/18 (SP)] Amlodipine [Norvasc] 10 mg PO DAILY 11/10/18 Colestipol Tablet [Colestid Tablet] 3 gm PO DAILY 11/10/18 Doxycycline Monohydrate [Monodox] 100 mg PO BID 11/10/18 Ferrous Sulfate 325 mg PO DAILY@0800 11/10/18 Furosemide [Lasix] 20 mg PO DAILY 11/10/18 Guaifenesin [Mucinex] 600 mg PO BID PRN 11/10/18 Meclizine HCl [Antivert] 25 mg PO TID PRN 11/10/18 Nystatin Powder [Mycostatin Powder] 1 applic TOPICAL 4X/DAY 11/10/18 Sertraline HCl [Zoloft] 50 mg PO DAILY 11/10/18 Sumatriptan Succinate [Imitrex] 100 mg PO .X1 PRN 11/10/18 Smoking Status: Never smoker Review of Systems Constitutional: Denies: Anorexia, Chills Eyes: Denies: Blurred vision, Pain Cardiovascular: Denies: Chest Pain, Claudication Respiratory: Denies: Cough, Hemoptysis Gastrointestinal: Denies: Abdominal Pain, Hematemesis, Vomiting Genitourinary: Denies: Hematuria Skin: Denies: Jaundice - Physical Exam Vital Signs Temp Pulse Resp BP 96.8 F L 67 18 110/72 11/10/18 11:07 11/10/18 11:07 11/10/18 11:07 11/10/18 11:07 General: Alert, Oriented x3, Cooperative, No apparent distress HEENT: Atraumatic, Normocephalic Oral: Moist Mucosa Neck: Supple Lungs: Normal air movement Cardiovascular: Regular rate, Regular Rhythm, Normal S1, Normal S2 Abdomen: Non Tender, Obese Extremities: No cyanosis, Edema Skin: Ulcer/ Wound Wound Measurements and Assessment WC - Nurse 1 - General Ulcer Measurement Start: 11/10/18 11:04 Freq: Status: Active Protocol: Activity Type Activity Date Activity User E-Sign Co-Sign Detail Recorded Client Recorded Date Recorded By Document 11/10/18 11:07 AN [id number] 11/10/18 11:37 AN 11/10/18 11:07 Wound Center Nurse 1 [Ulcer Assessment] #2 RIGHT ENCISO -Current Size (cm) - Length 0.8 -Current Size (cm) - Width 0.4 -Current Size (cm) - Depth 0.1 -Total Square Cm 0.32 -Date of Last Picture (Recall this 11/10/18 field) -Photo Taken Yes -Epithelialization None Present -Tunneling No -Undermining/Tunneling No -Circular Undermining No -Classification - Thickness Unclassifiable (Eschar Covered ) -Exudate Amt None Present -Wound Margin Distinct, Outline Attached -Granulation Amt None Present (0 %) -Necrosis Amt Large (67-100%) -Necrotic Tissue Type Eschar -Texture (Martha-wound Skin Appearance) Assessed Localized Edema -Moisture (Martha-wound Skin Appearance Assessed ) -Color (Martha-wound Skin Appearance) Assessed Erythema -Temperature (Martha-wound Skin No Abnormality Appearance) (Pt Warm) -Tenderness on Palpation (Martha-wound Yes Skin Appearance) -Ulcer Cleansing Rinsed/ Irrigated with Saline -Foul Odor after Cleansing Yes -Anesthetic Used 5% Lidocaine Gel #1 RIGHT POSTERIOR CALF CLUSTER -Current Size (cm) - Length 13.5 -Current Size (cm) - Width 11.7 -Current Size (cm) - Depth 0.1 -Total Square Cm 157.95 -Date of Last Picture (Recall this 11/17/18 field) -Photo Taken Yes -Epithelialization None Present -Tunneling No -Undermining/Tunneling No -Circular Undermining No -Classification - Thickness Full Thickness without Exposed Support Structure -Exudate Amt Large -Exudate Type Serous -Wound Margin Flat & Intact -Granulation Amt None Present (0 %) -Granulation Quality Red -Slough/Fibrin Yes -Necrosis Amt Large (67-100%) -Necrotic Tissue Type Adherent Slough -Texture (Martha-wound Skin Appearance) Assessed Localized Edema -Moisture (Martha-wound Skin Appearance Assessed ) Weeping -Color (Martha-wound Skin Appearance) Assessed Erythema -Temperature (Martha-wound Skin No Abnormality Appearance) (Pt Warm) -Tenderness on Palpation (Martha-wound Yes Skin Appearance) -Ulcer Cleansing Rinsed/ Irrigated with Saline -Foul Odor after Cleansing No -Anesthetic Used 5% Lidocaine Gel [Edema Assessment] -Right Calf (cm) 63.5 -Right Ankle (cm) 34.7 -Left Calf (cm) 59.5 -Left Ankle (cm) 31.3 WC - Nurse 2 - General Ulcer CM Notes Start: 11/10/18 11:04 Freq: Status: Active Protocol: Activity Type Activity Date Activity User E-Sign Co-Sign Detail Recorded Client Recorded Date Recorded By Document 11/10/18 11:55 MW [id number] 11/10/18 12:01 MW 11/10/18 11:55 Wound Center Nurse 2 [Procedure/Treatment] #2 RIGHT ENCISO -Time 11:58 -Correct Patient Yes -Correct Side, Site, Position Yes -Correct Procedure Yes -Procedure Performed Yes -Type of Procedure Debridement -Clinical Debridement Subcutaneous -Post Debridement Size (cm) - Length 0.8 -Post Debridement Size (cm) - Width 0.3 -Post Debridement Size (cm) - Depth 0.1 -Total Square Cm 0.24 -Wound/Ulcer Outcome Not Healed -Ulcer Cleansing Rinsed/ Irrigated with Saline -Foul Odor after Cleansing No -Bioengineered Tissue No -Bleeding Controlled with Pressure -Offloading No -Treatment Response Procedure Tolerated Well #1 RIGHT POSTERIOR CALF CLUSTER -Time 11:56 -Correct Patient Yes -Correct Side, Site, Position Yes -Correct Procedure Yes -Procedure Performed Yes -Type of Procedure Debridement -Clinical Debridement Subcutaneous -Post Debridement Size (cm) - Length 13.0 -Post Debridement Size (cm) - Width 11.0 -Post Debridement Size (cm) - Depth 0.1 -Total Square Cm 143.00 -Wound/Ulcer Outcome Not Healed -Ulcer Cleansing Rinsed/ Irrigated with Saline -Foul Odor after Cleansing No -Bioengineered Tissue No -Bleeding Controlled with Pressure -Offloading No -Treatment Response Procedure Tolerated Well [See Physician Procedure note for Specifics] Pain Scale: 0-10 Numeric [Pain] -Is Patient Pain Free? Yes Musculoskeletal: No Muscle Wasting Neurological: Cranial nerves II-XII grossly intact Psych/Mental Status: Normal Affect Debridement Note Post-Debridement Measurements/Treatment WC - Nurse 2 - General Ulcer CM Notes Start: 11/10/18 11:04 Freq: Status: Active Protocol: Activity Type Activity Date Activity User E-Sign Co-Sign Detail Recorded Client Recorded Date Recorded By Document 11/10/18 11:55 MW [id number] 11/10/18 12:01 MW 11/10/18 11:55 Wound Center Nurse 2 #2 RIGHT ENCISO -Time 11:58 -Correct Patient Yes -Correct Side, Site, Position Yes -Correct Procedure Yes -Procedure Performed Yes -Type of Procedure Debridement -Clinical Debridement Subcutaneous -Post Debridement Size (cm) - Length 0.8 -Post Debridement Size (cm) - Width 0.3 -Post Debridement Size (cm) - Depth 0.1 -Total Square Cm 0.24 -Wound/Ulcer Outcome Not Healed -Ulcer Cleansing Rinsed/ Irrigated with Saline -Foul Odor after Cleansing No -Bioengineered Tissue No -Bleeding Controlled with Pressure -Offloading No -Treatment Response Procedure Tolerated Well #1 RIGHT POSTERIOR CALF CLUSTER -Time 11:56 -Correct Patient Yes -Correct Side, Site, Position Yes -Correct Procedure Yes -Procedure Performed Yes -Type of Procedure Debridement -Clinical Debridement Subcutaneous -Post Debridement Size (cm) - Length 13.0 -Post Debridement Size (cm) - Width 11.0 -Post Debridement Size (cm) - Depth 0.1 -Total Square Cm 143.00 -Wound/Ulcer Outcome Not Healed -Ulcer Cleansing Rinsed/ Irrigated with Saline -Foul Odor after Cleansing No -Bioengineered Tissue No -Bleeding Controlled with Pressure -Offloading No -Treatment Response Procedure Tolerated Well Pain Scale: 0-10 Numeric Is Patient Pain Free? Yes Wound debrided: Right lower extremity, calf Wound Grade/Stage: Stage II Type of Debridement: Excisional debridement Anesthesia Used: 4% Lidocaine Solution Depth: Down to and including healthy tissue, in the subcutaneous layer Percentage of wound debrided: 100 Instrument Used: 3mm curette Tissue Removed: Slough and devitalized tissue Severity: Fat Layer Exposed Amount of bleeding with debridement: Mild Bleeding Controlled with: Pressure Patient tolerated procedure well - Additional Wound Wound debrided: Right enciso Wound Grade/Stage: Stage II Type of Debridement: Excisional debridement Anesthesia Used: 4% Lidocaine Solution Depth: Down to and including healthy tissue, in the subcutaneous layer Percentage of wound debrided: 100 Instrument Used: 3mm curette Tissue Removed: Slough and devitalized tissue Amount of bleeding with debridement: Mild Bleeding Controlled with: Pressure Patient tolerated procedure: Patient tolerated procedure well Assessment/Plan Active Problems Ulcer of right lower extremity with fat layer exposed (Acute) Morbid obesity (Chronic) Bilateral lower extremity edema (Chronic) Assessment: Same as above. Plan: Debridement done as documented above. Procedure was well-tolerated. Fibracol to open surfaces with Xeroform over right posterior lower extremity. Fibracol over the right enciso ulcer. Change daily. SurePress for edema management. Elevate lower extremity when seated and in bed. Increased protein intake recommended. Her questions were answered and she was advised to call with any further questions or concerns. Follow-up in 1 week. This note was generated with [employer] software. It may contain incorrect words, spelling, and punctuation that were not noted in checking the note before signing.
[2018-11-24 10:06] VITALS: BP 124/83; PULSE 62; RESP 18; TEMP 35.7; BMI 73.8
--- NOTE | 2018-11-24 11:35 | PN.PCM_ITS ---
(1) Ulcer of right lower extremity with fat layer exposed Status: Acute Current Visit: Yes Code(s): L97.912 - Non-pressure chronic ulcer of unspecified part of right lower leg with fat layer exposed (2) Morbid obesity Status: Chronic Current Visit: Yes Code(s): E66.01 - Morbid (severe) obesity due to excess calories (3) Bilateral lower extremity edema Status: Chronic Current Visit: Yes Code(s): R60.0 - Localized edema (4) Ulcer of left lower extremity with fat layer exposed Status: Acute Current Visit: Yes Code(s): L97.922 - Non-pressure chronic ulcer of unspecified part of left lower leg with fat layer exposed (5) Toe ulcer, right Status: Acute Current Visit: Yes Code(s): L97.519 - Non-pressure chronic ulcer of other part of right foot with unspecified severity Comment: Third and fourth. Type of Wound Chief Complaint: Right lower extremity ulcers. History of Wound: Ms. Molina is a 48-year-old who was referred to the wound center by her primary care physician due to right lower extremity ulcers. Per patient, started out with redness pain and swelling for which she was managed for cellulitis. Subsequently developed ulcerations in her calf and enciso. She feels well other at this time and denies chills, fever, nausea, vomitting or change in her bowel habit. Progress of Wound: Right enciso ulcer is healed. Right posterior cluster improving. New left posterior and right toe ulcers. - Physical Exam Vital Signs Temp Pulse Resp BP 96.2 F L 62 18 124/83 H 11/24/18 10:06 11/24/18 10:06 11/24/18 10:06 11/24/18 10:06 General: Alert, Oriented x3, Cooperative, No apparent distress HEENT: Atraumatic, Normocephalic Oral: Moist Mucosa Neck: Supple Lungs: Normal air movement Abdomen: Obese Extremities: No cyanosis, Edema Skin: Ulcer/ Wound Wound Measurements and Assessment WC - Nurse 1 - General Ulcer Measurement Start: 11/10/18 11:04 Freq: Status: Active Protocol: Activity Type Activity Date Activity User E-Sign Co-Sign Detail Recorded Client Recorded Date Recorded By Document 11/24/18 10:06 AN [id number] 11/24/18 10:38 AN 11/24/18 10:06 Wound Center Nurse 1 [Ulcer Assessment] #5 RIGHT FOURTH TOE POSTERIOR -Current Size (cm) - Length 0.5 -Current Size (cm) - Width 1.5 -Current Size (cm) - Depth 0.4 -Total Square Cm 0.75 -Date of Last Picture (Recall this 11/24/18 field) -Photo Taken Yes -Epithelialization None Present -Tunneling No -Undermining/Tunneling No -Classification - Thickness Full Thickness without Exposed Support Structure -Exudate Amt Medium -Exudate Type Serosanguineous -Wound Margin Distinct, Outline Attached -Granulation Amt Large (67-100%) -Granulation Quality Red -Slough/Fibrin No -Necrosis Amt None Present (0 %) -Structure Exposed None/Limited to Skin Breakdown -Texture (Martha-wound Skin Appearance) Assessed -Moisture (Martha-wound Skin Appearance Assessed ) Maceration -Color (Martha-wound Skin Appearance) Assessed -Temperature (Martha-wound Skin Cool/Cold Appearance) -Tenderness on Palpation (Martha-wound Yes Skin Appearance) -Ulcer Cleansing Rinsed/ Irrigated with Saline -Foul Odor after Cleansing No -Anesthetic Used 4% Lidocaine Solution #4 RIGHT THIRD TOE POSTERIOR -Current Size (cm) - Length 0.2 -Current Size (cm) - Width 1.1 -Current Size (cm) - Depth 0.3 -Total Square Cm 0.22 -Date of Last Picture (Recall this 11/24/18 field) -Photo Taken Yes -Epithelialization None Present -Tunneling No -Undermining/Tunneling No -Circular Undermining No -Classification - Thickness Full Thickness without Exposed Support Structure -Exudate Amt Medium -Exudate Type Serosanguineous -Wound Margin Distinct, Outline Attached -Granulation Amt Large (67-100%) -Granulation Quality Red -Slough/Fibrin No -Structure Exposed None/Limited to Skin Breakdown -Texture (Martha-wound Skin Appearance) Assessed -Moisture (Martha-wound Skin Appearance Assessed ) Maceration -Color (Martha-wound Skin Appearance) Assessed -Temperature (Martha-wound Skin Cool/Cold Appearance) -Tenderness on Palpation (Martha-wound Yes Skin Appearance) -Ulcer Cleansing Rinsed/ Irrigated with Saline -Foul Odor after Cleansing No -Anesthetic Used 4% Lidocaine Solution #3 LEFT POSTERIOR LOWER LEG -Current Size (cm) - Length 4.5 -Current Size (cm) - Width 2.5 -Current Size (cm) - Depth 0.1 -Total Square Cm 11.25 -Date of Last Picture (Recall this 11/24/18 field) -Photo Taken Yes -Epithelialization None Present -Tunneling No -Undermining/Tunneling No -Circular Undermining No -Classification - Thickness Full Thickness without Exposed Support Structure -Exudate Amt Small -Exudate Type Serosanguineous -Wound Margin Distinct, Outline Attached -Granulation Amt Large (67-100%) -Granulation Quality Red -Slough/Fibrin No -Necrosis Amt None Present (0 %) -Texture (Martha-wound Skin Appearance) Assessed Localized Edema -Moisture (Martha-wound Skin Appearance Assessed ) Weeping -Color (Martha-wound Skin Appearance) Assessed -Temperature (Martha-wound Skin Cool/Cold Appearance) -Tenderness on Palpation (Martha-wound Yes Skin Appearance) -Ulcer Cleansing Rinsed/ Irrigated with Saline -Foul Odor after Cleansing No -Anesthetic Used 4% Lidocaine Solution #2 RIGHT ENCISO -Current Size (cm) - Length 0.1 -Current Size (cm) - Width 0.1 -Current Size (cm) - Depth 0.1 -Total Square Cm 0.01 #1 RIGHT POSTERIOR CALF CLUSTER -Current Size (cm) - Length 13.5 -Current Size (cm) - Width 11.5 -Current Size (cm) - Depth 0.1 -Total Square Cm 155.25 -Photo Taken No -Epithelialization Small 1-33% -Tunneling No -Undermining/Tunneling No -Circular Undermining No -Classification - Thickness Full Thickness without Exposed Support Structure -Exudate Amt Medium -Exudate Type Serous -Wound Margin Flat & Intact -Granulation Amt Medium (34-66%) -Granulation Quality Red -Necrosis Amt Medium (34-66%) -Necrotic Tissue Type Adherent Slough -Structure Exposed None/Limited to Skin Breakdown -Texture (Martha-wound Skin Appearance) Assessed -Moisture (Martha-wound Skin Appearance Assessed ) -Color (Martha-wound Skin Appearance) Not Assessed -Temperature (Martha-wound Skin No Abnormality Appearance) (Pt Warm) -Tenderness on Palpation (Martha-wound No Skin Appearance) -Ulcer Cleansing Rinsed/ Irrigated with Saline -Foul Odor after Cleansing No -Anesthetic Used 4% Lidocaine Solution [Edema Assessment] -Right Calf (cm) 66 -Right Ankle (cm) 33 -Left Calf (cm) 60 -Left Ankle (cm) 30 WC - Nurse 2 - General Ulcer CM Notes Start: 11/10/18 11:04 Freq: Status: Active Protocol: Activity Type Activity Date Activity User E-Sign Co-Sign Detail Recorded Client Recorded Date Recorded By Document 11/24/18 10:57 AN [id number] 11/24/18 11:12 AN 11/24/18 10:57 Wound Center Nurse 2 [Procedure/Treatment] #5 RIGHT FOURTH TOE POSTERIOR -Time 10:58 -Correct Patient Yes -Correct Side, Site, Position Yes -Correct Procedure Yes -Procedure Performed Yes -Post Debridement Size (cm) - Length 0.4 -Post Debridement Size (cm) - Width 1.0 -Post Debridement Size (cm) - Depth 0.2 -Total Square Cm 0.40 -Wound/Ulcer Outcome Not Healed -Ulcer Cleansing Rinsed/ Irrigated with Saline -Foul Odor after Cleansing No -Bioengineered Tissue No -Bleeding Controlled with Pressure -Treatment Response Procedure Tolerated Well #4 RIGHT THIRD TOE POSTERIOR -Time 10:58 -Correct Patient Yes -Correct Side, Site, Position Yes -Correct Procedure Yes -Procedure Performed Yes -Type of Procedure Debridement -Clinical Debridement Subcutaneous -Post Debridement Size (cm) - Length 0.4 -Post Debridement Size (cm) - Width 1.2 -Post Debridement Size (cm) - Depth 0.2 -Total Square Cm 0.48 -Wound/Ulcer Outcome Not Healed -Ulcer Cleansing Rinsed/ Irrigated with Saline -Foul Odor after Cleansing No -Bioengineered Tissue No -Bleeding Controlled with Pressure -Treatment Response Procedure Tolerated Well #3 LEFT POSTERIOR LOWER LEG -Time 10:58 -Correct Patient Yes -Correct Side, Site, Position Yes -Correct Procedure Yes -Procedure Performed Yes -Type of Procedure Debridement -Clinical Debridement Selective -Post Debridement Size (cm) - Length 4.6 -Post Debridement Size (cm) - Width 2.6 -Post Debridement Size (cm) - Depth 0.1 -Total Square Cm 11.96 -Wound/Ulcer Outcome Not Healed -Ulcer Cleansing Rinsed/ Irrigated with Saline -Foul Odor after Cleansing No -Bioengineered Tissue No -Bleeding Controlled with Pressure -Offloading No -Treatment Response Procedure Tolerated Well #2 RIGHT ENCISO -Time 10:59 -Correct Patient Yes -Correct Side, Site, Position Yes -Correct Procedure Yes -Procedure Performed No -Post Debridement Size (cm) - Length 0 -Post Debridement Size (cm) - Width 0 -Post Debridement Size (cm) - Depth 0 -Total Square Cm 0 -Wound/Ulcer Outcome Healed- Epithelialized #1 RIGHT POSTERIOR CALF CLUSTER -Time 11:00 -Correct Patient Yes -Correct Side, Site, Position Yes -Correct Procedure Yes -Procedure Performed Yes -Type of Procedure Debridement -Clinical Debridement Subcutaneous -Post Debridement Size (cm) - Length 11.0 -Post Debridement Size (cm) - Width 9 -Post Debridement Size (cm) - Depth 0.1 -Total Square Cm 99.0 -Wound/Ulcer Outcome Not Healed -Ulcer Cleansing Rinsed/ Irrigated with Saline -Foul Odor after Cleansing No -Bioengineered Tissue No -Bleeding Controlled with Pressure -Offloading No -Treatment Response Procedure Tolerated Well [See Physician Procedure note for Specifics] Musculoskeletal: No Muscle Wasting Neurological: Cranial nerves II-XII grossly intact Psych/Mental Status: Normal Affect Debridement Note Post-Debridement Measurements/Treatment WC - Nurse 2 - General Ulcer CM Notes Start: 11/10/18 11:04 Freq: Status: Active Protocol: Activity Type Activity Date Activity User E-Sign Co-Sign Detail Recorded Client Recorded Date Recorded By Document 11/10/18 11:55 MW [id number] 11/10/18 12:01 MW Document 11/24/18 10:57 AN [id number] 11/24/18 11:12 AN 11/10/18 11/24/18 11:55 10:57 Wound Center Nurse 2 #5 RIGHT FOURTH TOE POSTERIOR -Time 10:58 -Correct Patient Yes -Correct Side, Site, Position Yes -Correct Procedure Yes -Procedure Performed Yes -Post Debridement Size (cm) - Length 0.4 -Post Debridement Size (cm) - Width 1.0 -Post Debridement Size (cm) - Depth 0.2 -Total Square Cm 0.40 -Wound/Ulcer Outcome Not Healed -Ulcer Cleansing Rinsed/ Irrigated with Saline -Foul Odor after Cleansing No -Bioengineered Tissue No -Bleeding Controlled with Pressure -Treatment Response Procedure Tolerated Well #4 RIGHT THIRD TOE POSTERIOR -Time 10:58 -Correct Patient Yes -Correct Side, Site, Position Yes -Correct Procedure Yes -Procedure Performed Yes -Type of Procedure Debridement -Clinical Debridement Subcutaneous -Post Debridement Size (cm) - Length 0.4 -Post Debridement Size (cm) - Width 1.2 -Post Debridement Size (cm) - Depth 0.2 -Total Square Cm 0.48 -Wound/Ulcer Outcome Not Healed -Ulcer Cleansing Rinsed/ Irrigated with Saline -Foul Odor after Cleansing No -Bioengineered Tissue No -Bleeding Controlled with Pressure -Treatment Response Procedure Tolerated Well #3 LEFT POSTERIOR LOWER LEG -Time 10:58 -Correct Patient Yes -Correct Side, Site, Position Yes -Correct Procedure Yes -Procedure Performed Yes -Type of Procedure Debridement -Clinical Debridement Selective -Post Debridement Size (cm) - Length 4.6 -Post Debridement Size (cm) - Width 2.6 -Post Debridement Size (cm) - Depth 0.1 -Total Square Cm 11.96 -Wound/Ulcer Outcome Not Healed -Ulcer Cleansing Rinsed/ Irrigated with Saline -Foul Odor after Cleansing No -Bioengineered Tissue No -Bleeding Controlled with Pressure -Offloading No -Treatment Response Procedure Tolerated Well #2 RIGHT ENCISO -Time 11:58 10:59 -Correct Patient Yes Yes -Correct Side, Site, Position Yes Yes -Correct Procedure Yes Yes -Procedure Performed Yes No -Type of Procedure Debridement -Clinical Debridement Subcutaneous -Post Debridement Size (cm) - Length 0.8 0 -Post Debridement Size (cm) - Width 0.3 0 -Post Debridement Size (cm) - Depth 0.1 0 -Total Square Cm 0.24 0 -Wound/Ulcer Outcome Not Healed Healed- Epithelialized -Ulcer Cleansing Rinsed/ Irrigated with Saline -Foul Odor after Cleansing No -Bioengineered Tissue No -Bleeding Controlled with Pressure -Offloading No -Treatment Response Procedure Tolerated Well #1 RIGHT POSTERIOR CALF CLUSTER -Time 11:56 11:00 -Correct Patient Yes Yes -Correct Side, Site, Position Yes Yes -Correct Procedure Yes Yes -Procedure Performed Yes Yes -Type of Procedure Debridement Debridement -Clinical Debridement Subcutaneous Subcutaneous -Post Debridement Size (cm) - Length 13.0 11.0 -Post Debridement Size (cm) - Width 11.0 9 -Post Debridement Size (cm) - Depth 0.1 0.1 -Total Square Cm 143.00 99.0 -Wound/Ulcer Outcome Not Healed Not Healed -Ulcer Cleansing Rinsed/ Rinsed/ Irrigated with Irrigated with Saline Saline -Foul Odor after Cleansing No No -Bioengineered Tissue No No -Bleeding Controlled with Pressure Pressure -Offloading No No -Treatment Response Procedure Procedure Tolerated Well Tolerated Well Pain Scale: 0-10 Numeric Is Patient Pain Free? Yes Wound debrided: Right lower extremity posterior (calf) Wound Grade/Stage: Stage II Type of Debridement: Excisional debridement Anesthesia Used: 4% Lidocaine Solution Depth: Down to and including healthy tissue, in the subcutaneous layer Percentage of wound debrided: 100 Instrument Used: 3mm curette Tissue Removed: Slough and devitalized tissue Severity: Fat Layer Exposed Amount of bleeding with debridement: Mild Bleeding Controlled with: Pressure Patient tolerated procedure well - Additional Wound Wound debrided: Left lower extremity cluster Wound Grade/Stage: Stage II Type of Debridement: Selective debridement Anesthesia Used: 4% Lidocaine Solution Depth: Down to and including healthy tissue Percentage of wound debrided: 100 Instrument Used: 3mm curette Tissue Removed: Often devitalized tissue Severity: Limited To Skin Breakdown Amount of bleeding with debridement: Mild Bleeding Controlled with: Pressure Patient tolerated procedure: Patient tolerated procedure well - Additional Wound Wound debrided: Right third toe Wound Grade/Stage: Stage II Type of Debridement: Excisional debridement Anesthesia Used: 4% Lidocaine Solution Depth: Down to and including healthy tissue, in the subcutaneous layer Percentage of wound debrided: 100 Instrument Used: 3mm curette Tissue Removed: Slough and devitalized tissue Severity: Fat Layer Exposed Amount of bleeding with debridement: Mild Bleeding Controlled with: Pressure Patient tolerated procedure: Patient tolerated procedure well - Additional Wound Wound debrided: Right fourth toe Wound Grade/Stage: Stage II Type of Debridement: Excisional debridement Anesthesia Used: 4% Lidocaine Solution Depth: Down to and including healthy tissue, in the subcutaneous layer Percentage of wound debrided: 100 Instrument Used: 3mm curette Tissue Removed: Slough and devitalized tissue Severity: Fat Layer Exposed Amount of bleeding with debridement: Mild Bleeding Controlled with: Pressure Patient tolerated procedure: Patient tolerated procedure well Assessment/Plan Active Problems Ulcer of right lower extremity with fat layer exposed (Acute) Morbid obesity (Chronic) Bilateral lower extremity edema (Chronic) Ulcer of left lower extremity with fat layer exposed (Acute) Toe ulcer, right (Acute) Third and fourth. Assessment: Same as above. Plan: Debridement done as documented above. Procedure was well-tolerated. Fibracol to open surfaces with Xeroform over right and left posterior lower extremity. Fibracol ulcer to right toe ulcers. Change daily. Not able to properly apply SurePress, switch to daily Isreal wraps. Elevate lower extremity when seated and in bed. Increased protein intake recommended. Her questions were answered and she was advised to call with any further questions or concerns. Follow-up in 1 week. This note was generated with [employer] software. It may contain incorrect words, spelling, and punctuation that were not noted in checking the note before signing.
[2018-12-01 09:44] VITALS: BP 125/72; PULSE 70; RESP 22; TEMP 35.9; BMI 73.8
--- NOTE | 2018-12-01 11:16 | PN.PCM_ITS ---
(1) Ulcer of right lower extremity with fat layer exposed Status: Acute Current Visit: Yes Code(s): L97.912 - Non-pressure chronic ulcer of unspecified part of right lower leg with fat layer exposed (2) Morbid obesity Status: Chronic Current Visit: Yes Code(s): E66.01 - Morbid (severe) obesity due to excess calories (3) Bilateral lower extremity edema Status: Chronic Current Visit: Yes Code(s): R60.0 - Localized edema (4) Ulcer of left lower extremity with fat layer exposed Status: Acute Current Visit: Yes Code(s): L97.922 - Non-pressure chronic ulcer of unspecified part of left lower leg with fat layer exposed (5) Toe ulcer, right Status: Acute Current Visit: Yes Code(s): L97.519 - Non-pressure chronic ulcer of other part of right foot with unspecified severity Comment: Third and fourth. Type of Wound Chief Complaint: Right lower extremity ulcers. History of Wound: Ms. Molina is a 48-year-old who was referred to the wound center by her primary care physician due to right lower extremity ulcers. Per patient, started out with redness pain and swelling for which she was managed for cellulitis. Subsequently developed ulcerations in her calf and enciso. She feels well other at this time and denies chills, fever, nausea, vomitting or change in her bowel habit. Progress of Wound: Improving. No new concerns at this time. - Physical Exam Vital Signs Temp Pulse Resp BP 96.6 F L 70 22 H 125/72 H 12/01/18 09:44 12/01/18 09:44 12/01/18 09:44 12/01/18 09:44 General: Alert, Oriented x3, Cooperative, No apparent distress HEENT: Atraumatic, Normocephalic Oral: Moist Mucosa Neck: Supple Lungs: Normal air movement Abdomen: Non Tender, Obese Extremities: No cyanosis, Edema Skin: Ulcer/ Wound Wound Measurements and Assessment WC - Nurse 1 - General Ulcer Measurement Start: 11/10/18 11:04 Freq: Status: Active Protocol: Activity Type Activity Date Activity User E-Sign Co-Sign Detail Recorded Client Recorded Date Recorded By Document 12/01/18 09:44 [facility] [id number] 12/01/18 09:59 BMF 12/01/18 09:44 Wound Center Nurse 1 [Ulcer Assessment] #5 RIGHT FOURTH TOE POSTERIOR -Combined with other wound No -Current Size (cm) - Length 0.2 -Current Size (cm) - Width 1.7 -Current Size (cm) - Depth 0.1 -Total Square Cm 0.34 -Photo Taken No -Epithelialization Small 1-33% -Tunneling No -Undermining/Tunneling No -Circular Undermining No -Exudate Amt None Present -Wound Margin Thickened -Granulation Amt Large (67-100%) -Granulation Quality [place] -Slough/Fibrin No -Necrosis Amt None Present (0 %) -Texture (Martha-wound Skin Appearance) Scarring -Moisture (Martha-wound Skin Appearance Maceration ) -Color (Martha-wound Skin Appearance) Palor -Temperature (Martha-wound Skin No Abnormality Appearance) (Pt Warm) -Tenderness on Palpation (Martha-wound No Skin Appearance) -Ulcer Cleansing Wound Cleanser -Foul Odor after Cleansing No -Anesthetic Used 4% Lidocaine Solution #4 RIGHT THIRD TOE POSTERIOR -Combined with other wound No -Current Size (cm) - Length 0.1 -Current Size (cm) - Width 1.3 -Current Size (cm) - Depth 0.2 -Total Square Cm 0.13 -Photo Taken No -Epithelialization Small 1-33% -Tunneling No -Undermining/Tunneling No -Circular Undermining No -Exudate Amt None Present -Wound Margin Thickened -Granulation Amt Large (67-100%) -Granulation Quality [place] -Slough/Fibrin No -Necrosis Amt None Present (0 %) -Texture (Martha-wound Skin Appearance) Scarring -Moisture (Martha-wound Skin Appearance Maceration ) -Color (Martha-wound Skin Appearance) Palor -Temperature (Martha-wound Skin No Abnormality Appearance) (Pt Warm) -Tenderness on Palpation (Martha-wound No Skin Appearance) -Ulcer Cleansing Wound Cleanser -Foul Odor after Cleansing No -Anesthetic Used 4% Lidocaine Solution #3 LEFT POSTERIOR LOWER LEG -Combined with other wound No -Current Size (cm) - Length 0.1 -Current Size (cm) - Width 0.1 -Current Size (cm) - Depth 0.1 -Total Square Cm 0.01 -Epithelialization Large 67-100% -Tunneling No -Undermining/Tunneling No -Circular Undermining No -Temperature (Martha-wound Skin No Abnormality Appearance) (Pt Warm) -Tenderness on Palpation (Martha-wound No Skin Appearance) -Ulcer Cleansing Wound Cleanser -Foul Odor after Cleansing No -Anesthetic Used 4% Lidocaine Solution #1 RIGHT POSTERIOR CALF CLUSTER -Combined with other wound No -Current Size (cm) - Length 5.9 -Current Size (cm) - Width 11 -Current Size (cm) - Depth 0.1 -Total Square Cm 64.9 -Photo Taken No -Epithelialization Small 1-33% -Tunneling No -Undermining/Tunneling No -Circular Undermining No -Exudate Amt Small -Exudate Type Serous -Wound Margin Flat & Intact -Granulation Amt Small (1-33%) -Granulation Quality [place] -Slough/Fibrin Yes -Necrosis Amt Large (67-100%) -Necrotic Tissue Type Adherent Slough -Texture (Martha-wound Skin Appearance) Scarring -Moisture (Martha-wound Skin Appearance Assessed ) -Color (Martha-wound Skin Appearance) Assessed Erythema -Temperature (Martha-wound Skin No Abnormality Appearance) (Pt Warm) -Tenderness on Palpation (Martha-wound No Skin Appearance) -Ulcer Cleansing Wound Cleanser -Foul Odor after Cleansing No -Anesthetic Used 4% Lidocaine Solution [Edema Assessment] -Lower Limb Edema Present Yes -Right Calf (cm) 67 -Right Ankle (cm) 34.5 -Left Calf (cm) 61 -Left Ankle (cm) 30.8 WC - Nurse 2 - General Ulcer CM Notes Start: 11/10/18 11:04 Freq: Status: Active Protocol: Activity Type Activity Date Activity User E-Sign Co-Sign Detail Recorded Client Recorded Date Recorded By Document 12/01/18 10:38 MW [id number] 12/01/18 10:44 MW 12/01/18 10:38 Wound Center Nurse 2 [Procedure/Treatment] #5 RIGHT FOURTH TOE POSTERIOR -Time 10:40 -Correct Patient Yes -Correct Side, Site, Position Yes -Correct Procedure Yes -Procedure Performed Yes -Type of Procedure Debridement -Clinical Debridement Subcutaneous -Post Debridement Size (cm) - Length 0.2 -Post Debridement Size (cm) - Width 0.5 -Post Debridement Size (cm) - Depth 0.1 -Total Square Cm 0.10 -Wound/Ulcer Outcome Not Healed -Ulcer Cleansing Rinsed/ Irrigated with Saline -Foul Odor after Cleansing No -Bioengineered Tissue No -Bleeding Controlled with Pressure -Offloading No -Treatment Response Procedure Tolerated Well #4 RIGHT THIRD TOE POSTERIOR -Time 10:40 -Correct Patient Yes -Correct Side, Site, Position Yes -Correct Procedure Yes -Procedure Performed No -Post Debridement Size (cm) - Length 0 -Post Debridement Size (cm) - Width 0 -Post Debridement Size (cm) - Depth 0 -Total Square Cm 0 -Wound/Ulcer Outcome Healed- Epithelialized #3 LEFT POSTERIOR LOWER LEG -Time 10:40 -Correct Patient Yes -Correct Side, Site, Position Yes -Correct Procedure Yes -Procedure Performed No -Post Debridement Size (cm) - Length 0 -Post Debridement Size (cm) - Width 0 -Post Debridement Size (cm) - Depth 0 -Total Square Cm 0 -Wound/Ulcer Outcome Healed- Epithelialized #1 RIGHT POSTERIOR CALF CLUSTER -Time 10:40 -Correct Patient Yes -Correct Side, Site, Position Yes -Correct Procedure Yes -Procedure Performed Yes -Type of Procedure Debridement -Clinical Debridement Subcutaneous -Post Debridement Size (cm) - Length 6.0 -Post Debridement Size (cm) - Width 9.0 -Post Debridement Size (cm) - Depth 0.1 -Total Square Cm 54.00 -Wound/Ulcer Outcome Not Healed -Ulcer Cleansing Rinsed/ Irrigated with Saline -Foul Odor after Cleansing No -Bioengineered Tissue No -Bleeding Controlled with Pressure -Offloading No -Treatment Response Procedure Tolerated Well [See Physician Procedure note for Specifics] Pain Scale: 0-10 Numeric [Pain] -Is Patient Pain Free? Yes Musculoskeletal: No Muscle Wasting Neurological: Cranial nerves II-XII grossly intact Psych/Mental Status: Normal Affect Debridement Note Post-Debridement Measurements/Treatment WC - Nurse 2 - General Ulcer CM Notes Start: 11/10/18 11:04 Freq: Status: Active Protocol: Activity Type Activity Date Activity User E-Sign Co-Sign Detail Recorded Client Recorded Date Recorded By Document 11/10/18 11:55 MW [id number] 11/10/18 12:01 MW Document 11/24/18 10:57 AN [id number] 11/24/18 11:12 AN Document 12/01/18 10:38 MW [id number] 12/01/18 10:44 MW 11/10/18 11/24/18 12/01/18 11:55 10:57 10:38 Wound Center Nurse 2 #5 RIGHT FOURTH TOE POSTERIOR -Time 10:58 10:40 -Correct Patient Yes Yes -Correct Side, Site, Position Yes Yes -Correct Procedure Yes Yes -Procedure Performed Yes Yes -Type of Procedure Debridement -Clinical Debridement Subcutaneous -Post Debridement Size (cm) - Length 0.4 0.2 -Post Debridement Size (cm) - Width 1.0 0.5 -Post Debridement Size (cm) - Depth 0.2 0.1 -Total Square Cm 0.40 0.10 -Wound/Ulcer Outcome Not Healed Not Healed -Ulcer Cleansing Rinsed/ Rinsed/ Irrigated with Irrigated with Saline Saline -Foul Odor after Cleansing No No -Bioengineered Tissue No No -Bleeding Controlled with Pressure Pressure -Offloading No -Treatment Response Procedure Procedure Tolerated Well Tolerated Well #4 RIGHT THIRD TOE POSTERIOR -Time 10:58 10:40 -Correct Patient Yes Yes -Correct Side, Site, Position Yes Yes -Correct Procedure Yes Yes -Procedure Performed Yes No -Type of Procedure Debridement -Clinical Debridement Subcutaneous -Post Debridement Size (cm) - Length 0.4 0 -Post Debridement Size (cm) - Width 1.2 0 -Post Debridement Size (cm) - Depth 0.2 0 -Total Square Cm 0.48 0 -Wound/Ulcer Outcome Not Healed Healed- Epithelialized -Ulcer Cleansing Rinsed/ Irrigated with Saline -Foul Odor after Cleansing No -Bioengineered Tissue No -Bleeding Controlled with Pressure -Treatment Response Procedure Tolerated Well #3 LEFT POSTERIOR LOWER LEG -Time 10:58 10:40 -Correct Patient Yes Yes -Correct Side, Site, Position Yes Yes -Correct Procedure Yes Yes -Procedure Performed Yes No -Type of Procedure Debridement -Clinical Debridement Selective -Post Debridement Size (cm) - Length 4.6 0 -Post Debridement Size (cm) - Width 2.6 0 -Post Debridement Size (cm) - Depth 0.1 0 -Total Square Cm 11.96 0 -Wound/Ulcer Outcome Not Healed Healed- Epithelialized -Ulcer Cleansing Rinsed/ Irrigated with Saline -Foul Odor after Cleansing No -Bioengineered Tissue No -Bleeding Controlled with Pressure -Offloading No -Treatment Response Procedure Tolerated Well #2 RIGHT ENCISO -Time 11:58 10:59 -Correct Patient Yes Yes -Correct Side, Site, Position Yes Yes -Correct Procedure Yes Yes -Procedure Performed Yes No -Type of Procedure Debridement -Clinical Debridement Subcutaneous -Post Debridement Size (cm) - Length 0.8 0 -Post Debridement Size (cm) - Width 0.3 0 -Post Debridement Size (cm) - Depth 0.1 0 -Total Square Cm 0.24 0 -Wound/Ulcer Outcome Not Healed Healed- Epithelialized -Ulcer Cleansing Rinsed/ Irrigated with Saline -Foul Odor after Cleansing No -Bioengineered Tissue No -Bleeding Controlled with Pressure -Offloading No -Treatment Response Procedure Tolerated Well #1 RIGHT POSTERIOR CALF CLUSTER -Time 11:56 11:00 10:40 -Correct Patient Yes Yes Yes -Correct Side, Site, Position Yes Yes Yes -Correct Procedure Yes Yes Yes -Procedure Performed Yes Yes Yes -Type of Procedure Debridement Debridement Debridement -Clinical Debridement Subcutaneous Subcutaneous Subcutaneous -Post Debridement Size (cm) - Length 13.0 11.0 6.0 -Post Debridement Size (cm) - Width 11.0 9 9.0 -Post Debridement Size (cm) - Depth 0.1 0.1 0.1 -Total Square Cm 143.00 99.0 54.00 -Wound/Ulcer Outcome Not Healed Not Healed Not Healed -Ulcer Cleansing Rinsed/ Rinsed/ Rinsed/ Irrigated with Irrigated with Irrigated with Saline Saline Saline -Foul Odor after Cleansing No No No -Bioengineered Tissue No No No -Bleeding Controlled with Pressure Pressure Pressure -Offloading No No No -Treatment Response Procedure Procedure Procedure Tolerated Well Tolerated Well Tolerated Well Pain Scale: 0-10 Numeric Is Patient Pain Free? Yes Yes Wound debrided: Right lower extremity (posterior) Wound Grade/Stage: Stage II Type of Debridement: Excisional debridement Anesthesia Used: 4% Lidocaine Solution Depth: Down to and including healthy tissue, in the subcutaneous layer Percentage of wound debrided: 100 Instrument Used: 3mm curette Tissue Removed: Slough and devitalized tissue Severity: Fat Layer Exposed Amount of bleeding with debridement: Mild Bleeding Controlled with: Pressure Patient tolerated procedure well - Additional Wound Wound debrided: Right fourth toe Wound Grade/Stage: Stage II Type of Debridement: Excisional debridement Anesthesia Used: 4% Lidocaine Solution Depth: Down to and including healthy tissue, in the subcutaneous layer Percentage of wound debrided: 100 Instrument Used: 3mm curette Tissue Removed: Slough and devitalized tissue Severity: Fat Layer Exposed Amount of bleeding with debridement: Mild Bleeding Controlled with: Pressure Patient tolerated procedure: Patient tolerated procedure well Assessment/Plan Active Problems Ulcer of right lower extremity with fat layer exposed (Acute) Morbid obesity (Chronic) Bilateral lower extremity edema (Chronic) Ulcer of left lower extremity with fat layer exposed (Acute) Toe ulcer, right (Acute) Third and fourth. Assessment: Same as above. Plan: Left lower extremity and right third toe ulcers are healed. Debridement done as documented above. Procedure was well-tolerated. Fibracol to open surfaces with Xeroform over right and left posterior lower extremity. Fibracol ulcer to right toe ulcers. Change daily. Continue daily Isreal wraps. Elevate lower extremity when seated and in bed. Increased protein intake recommended. Her questions were answered and she was advised to call with any further questions or concerns. Follow-up in 1 week. This note was generated with [employer] dictation software. It may contain incorrect words, spelling, and punctuation that were not noted in checking the note before signing.
== END 2018-12-01 23:59 ==
LOC: WC 09:45
PROVIDERS: Family Provider Family Medicine; PCP Family Medicine; Visit Provider Internal Medicine
DX: L97.812 Non-pressure chronic ulcer of other part of right lower leg with fat layer exposed (principal); E66.01 Morbid (severe) obesity due to excess calories; Z68.45 Body mass index [BMI] 70 or greater, adult; Z71.3 Dietary counseling and surveillance; R60.0 Localized edema; M50.30 Other cervical disc degeneration, unspecified cervical region; L97.212 Non-pressure chronic ulcer of right calf with fat layer exposed; L97.512 Non-pressure chronic ulcer of other part of right foot with fat layer exposed
CPT/HCPCS: 11042; 11045; 97597; 99213; G0463

== ENCOUNTER 2018-12-19 08:04 | Day surgery (SDC) | payer MEDICARE, MEDICAID, SELFPAY ==
[2018-11-24 10:06] VITALS: BMI 73.8
[2018-12-14 09:44] VITALS: BMI 73.8
[2018-12-19 08:55] VITALS: BP 113/81; PULSE 63; RESP 18; TEMP 36.4; O2SAT 95; BMI 76.2
--- NOTE | 2018-12-19 09:43 | RAD_ITS ---
STUDY: X-RAY - SACROILIAC JOINTS REASON FOR EXAM: Female, 48 years old. SI joint block TECHNIQUE: 2 intraoperative view(s) of the sacroiliac joints were obtained. COMPARISON: None. FINDINGS: 2 limited intraoperative views of the left SI joint performed as the patient has undergone block. RAD/Fluoro Guided Needle Placement IMPRESSION: SI joint block Electronically Signed: Humble Orr MD at 12:47 EDT , Service support ,
[2018-12-19] MEDS: MethylPREDNISolone Acetate 80 MG/ML Vial (09:48)
[2018-12-19] MEDS: Bupivacaine 0.25% 30 ML Vial (09:48)
[2018-12-19 09:55] VITALS: BP 104/78; BP 113/81; PULSE 62; RESP 16; TEMP 36.5; O2SAT 97
[2018-12-19 10:00] VITALS: BP 113/81; BP 119/63; PULSE 58; RESP 18; O2SAT 100
[2018-12-19 10:05] VITALS: BP 113/81; BP 93/75; PULSE 59; RESP 18; O2SAT 100
[2018-12-19 10:10] VITALS: BP 107/60; BP 113/81; PULSE 59; RESP 18; TEMP 36.7; O2SAT 100
[2018-12-19 10:36] VITALS: BP 113/81
--- NOTE | 2018-12-19 11:20 | OP.PCM_ITS ---
Problem List (1) Sacrococcygeal disorders, not elsewhere classified Status: Chronic (2) Sacroiliitis Status: Chronic Report of Operation Date of Procedure: 12/19/18 Pre-Operative Diagnosis: Sacroiliitis, SI joint dysfunction Post-Operative Diagnosis: Sacroiliitis, SI joint dysfunction Surgery/Procedure Performed:: Left sacroiliac joint steroid injection under fluoroscopic guidance Description of Surgical Findings:: PROCEDURE: Left sacroiliac joint steroid injection under fluoroscopic guidance PREOPERATIVE DIAGNOSIS: Sacroiliitis, SI joint dysfunction POSTOPERATIVE DIAGNOSIS: Sacroiliitis, SI joint dysfunction ANESTHESIA: MAC COMPLICATIONS: None BLOOD LOSS: Minimal PROCEDURE IN DETAIL: History and physical today was reviewed. Risks and benefits of the procedure were explained. The patient understood, agreed to our procedure, and informed consent was obtained. IV inserted per routine protocol. The patient was taken to the operat ing room, placed in a prone position with a pillow positioned underneath the abdomen. The left lower back and buttock area was prepped and draped in a sterile fashion using iodine x3 under fluoroscopic guidance and approximately 15 degree the left SI joint was visualized the skin and subcutaneous tissue were anesthetized approximately 5 cc 1% lidocaine using a 25-gauge regular needle.under direct visualization fluoroscopy using a 22-gauge 5 inch spinal needle the needle passed through the skin the tip of the needle was maneuvered and directed towards the inferior one third of the posterior SI joint once the tip of the needle was at the vicinity of the joint after negative aspiration for blood or CSF a total of 2 cc of contrast were injected to confirm correct placement of the needle as well as cephalocaudad spread of the contrast after repeated negative aspiration and confirmation with AP as well as oblique view a total of 4 cc of preservative-free 0.25% Marcaine and 40 mg of Depo-Medrol were injected in and around the SI joint, the needles were then removed intact. The patient experienced no signs or symptoms intrathecal, intravascular injection. The patient experienced no paraesthesia. The procedure was completed without any apparent difficult, any complication. The patient appeared to tolerate well. ASSESSMENT AND PLAN: This is a 48-year-old female with sacroiliitis, SI joint dysfunction status post left-sided sacroiliac joint steroid injection under fluoroscopic guidance. The patient will continue her current medications. The patient will follow in approximately 2 weeks for toleration..
== END 2018-12-19 10:37 | disposition home or self-care (01) ==
LOC: SDC 08:06 → AC 08:33
PROVIDERS: Family Provider Family Medicine; PCP Family Medicine; Referring Provider Anesthesiology Pain Medicine; Visit Provider Anesthesiology Pain Medicine
PROC: 3E0U3BZ Introduction of Anesthetic Agent into Joints, Percutaneous Approach (ICD-10-PCS; CPT 64451; principal; 2018-12-05 08:05)
DX: M46.1 Sacroiliitis, not elsewhere classified (principal); M53.3 Sacrococcygeal disorders, not elsewhere classified; K21.9 Gastro-esophageal reflux disease without esophagitis; E78.00 Pure hypercholesterolemia, unspecified; I48.91 Unspecified atrial fibrillation; I10 Essential (primary) hypertension; J45.909 Unspecified asthma, uncomplicated; K58.9 Irritable bowel syndrome, unspecified; G43.909 Migraine, unspecified, not intractable, without status migrainosus; Z79.899 Other long term (current) drug therapy
CPT/HCPCS: 27096; 76000; 77002; J7120

== ENCOUNTER 2018-12-28 09:45 | Outpatient (RCR) | payer MEDICARE, MEDICAID, SELFPAY ==
[2018-12-02 01:35] VITALS: BP 125/72; PULSE 70; RESP 22; TEMP 35.9
[2018-12-08 09:39] VITALS: BP 118/65; PULSE 76; RESP 20; TEMP 35.3; BMI 73.8
--- NOTE | 2018-12-08 10:46 | PCM.WC.PN ---
(1) Toe ulcer, right Status: Acute Current Visit: Yes Code(s): L97.519 - Non-pressure chronic ulcer of other part of right foot with unspecified severity Comment: Third and fourth. (2) Ulcer of right lower extremity with fat layer exposed Status: Acute Current Visit: Yes Code(s): L97.912 - Non-pressure chronic ulcer of unspecified part of right lower leg with fat layer exposed (3) Bilateral lower extremity edema Status: Chronic Current Visit: Yes Code(s): R60.0 - Localized edema (4) Open wound of second toe of left foot Status: Acute Current Visit: Yes Code(s): S91.105A - Unspecified open wound of left lesser toe(s) without damage to nail, initial encounter Comment: Traumatic, Penetrating. Type of Wound Chief Complaint: Right lower extremity ulcers. History of Wound: Ms. Molina is a 48-year-old who was referred to the wound center by her primary care physician due to right lower extremity ulcers. Per patient, started out with redness pain and swelling for which she was managed for cellulitis. Subsequently developed ulcerations in her calf and enciso. She feels well other at this time and denies chills, fever, nausea, vomitting or change in her bowel habit. Progress of Wound: Increased darinage and pain of right posterior lower extremity. Right toes have healed. New left toe wound after fall. - Physical Exam Vital Signs Temp Pulse Resp BP 95.5 F L 76 20 H 118/65 12/08/18 09:39 12/08/18 09:39 12/08/18 09:39 12/08/18 09:39 General: Alert, Oriented x3, Cooperative, No apparent distress HEENT: Atraumatic, Normocephalic Oral: Moist Mucosa Neck: Supple Lungs: Normal air movement Abdomen: Non Tender, Obese Extremities: No cyanosis, Edema Skin: Ulcer/ Wound Wound Measurements and Assessment WC - Nurse 1 - General Ulcer Measurement Start: 12/08/18 09:38 Freq: Status: Active Protocol: Activity Type Activity Date Activity User E-Sign Co-Sign Detail Recorded Client Recorded Date Recorded By Document 12/08/18 09:39 AN [id number] 12/08/18 09:51 AN 12/08/18 09:39 Wound Center Nurse 1 [Ulcer Assessment] #5 RIGHT FOURTH TOE POSTERIOR -Combined with other wound No -Current Size (cm) - Length 0.1 -Current Size (cm) - Width 0.1 -Current Size (cm) - Depth 0.1 -Total Square Cm 0.01 -Epithelialization Large 67-100% -Tunneling No -Undermining/Tunneling No -Circular Undermining No -Temperature (Martha-wound Skin No Abnormality Appearance) (Pt Warm) -Tenderness on Palpation (Martha-wound No Skin Appearance) -Ulcer Cleansing Wound Cleanser -Foul Odor after Cleansing No -Anesthetic Used 4% Lidocaine Solution #4 RIGHT THIRD TOE POSTERIOR -Combined with other wound No -Current Size (cm) - Length 0.1 -Current Size (cm) - Width 0.1 -Current Size (cm) - Depth 0.1 -Total Square Cm 0.01 -Epithelialization Large 67-100% -Temperature (Martha-wound Skin No Abnormality Appearance) (Pt Warm) -Ulcer Cleansing Wound Cleanser -Foul Odor after Cleansing No -Anesthetic Used 4% Lidocaine Solution #3 LEFT POSTERIOR LOWER LEG -Combined with other wound No -Current Size (cm) - Length 0 -Current Size (cm) - Width 0 -Current Size (cm) - Depth 0 -Total Square Cm 0 -Date of Last Picture (Recall this 12/08/18 field) -Photo Taken Yes -Epithelialization Large 67-100% -Tunneling No -Undermining/Tunneling No -Circular Undermining No #1 RIGHT POSTERIOR CALF CLUSTER -Combined with other wound No -Current Size (cm) - Length 15 -Current Size (cm) - Width 9.3 -Current Size (cm) - Depth 0.1 -Total Square Cm 139.5 -Photo Taken No -Epithelialization None Present -Tunneling No -Undermining/Tunneling No -Circular Undermining No -Exudate Amt Large -Exudate Type Serous -Wound Margin Flat & Intact -Granulation Amt Medium (34-66%) -Granulation Quality [place] -Slough/Fibrin Yes -Necrosis Amt Large (67-100%) -Necrotic Tissue Type Adherent Slough -Structure Exposed None/Limited to Skin Breakdown -Texture (Martha-wound Skin Appearance) Scarring -Moisture (Martha-wound Skin Appearance Weeping ) -Color (Martha-wound Skin Appearance) Erythema -Temperature (Martha-wound Skin No Abnormality Appearance) (Pt Warm) -Tenderness on Palpation (Martha-wound No Skin Appearance) -Ulcer Cleansing Wound Cleanser -Foul Odor after Cleansing No -Anesthetic Used 4% Lidocaine Solution [Edema Assessment] -Lower Limb Edema Present Yes -Right Calf (cm) 69.6 -Right Ankle (cm) 34.4 -Left Calf (cm) 62 -Left Ankle (cm) 31.1 WC - Nurse 2 - General Ulcer CM Notes Start: 12/08/18 09:38 Freq: Status: Active Protocol: Activity Type Activity Date Activity User E-Sign Co-Sign Detail Recorded Client Recorded Date Recorded By Document 12/08/18 10:12 MW [id number] 12/08/18 10:19 MW 12/08/18 10:12 Wound Center Nurse 2 [Procedure/Treatment] #6 left 2nd toe dorsal -Time 10:16 -Correct Patient Yes -Correct Side, Site, Position Yes -Correct Procedure Yes -Procedure Performed Yes -Type of Procedure Debridement -Clinical Debridement Subcutaneous -Post Debridement Size (cm) - Length 0.6 -Post Debridement Size (cm) - Width 0.7 -Post Debridement Size (cm) - Depth 0.1 -Total Square Cm 0.42 -Wound/Ulcer Outcome Not Healed -Ulcer Cleansing Rinsed/ Irrigated with Saline -Foul Odor after Cleansing No -Bioengineered Tissue No -Bleeding Controlled with Pressure -Offloading No -Treatment Response Procedure Tolerated Well #5 RIGHT FOURTH TOE POSTERIOR -Time 10:13 -Correct Patient Yes -Correct Side, Site, Position Yes -Correct Procedure Yes -Procedure Performed No -Post Debridement Size (cm) - Length 0 -Post Debridement Size (cm) - Width 0 -Post Debridement Size (cm) - Depth 0 -Total Square Cm 0 -Wound/Ulcer Outcome Healed- Epithelialized #4 RIGHT THIRD TOE POSTERIOR -Time 10:15 -Correct Patient Yes -Correct Side, Site, Position Yes -Correct Procedure Yes -Procedure Performed No -Wound/Ulcer Outcome Healed- Epithelialized #3 LEFT POSTERIOR LOWER LEG -Time 10:13 -Correct Patient Yes -Correct Side, Site, Position Yes -Correct Procedure Yes -Procedure Performed No -Wound/Ulcer Outcome Healed- Epithelialized #1 RIGHT POSTERIOR CALF CLUSTER -Time 10:14 -Correct Patient Yes -Correct Side, Site, Position Yes -Correct Procedure Yes -Procedure Performed Yes -Type of Procedure Debridement -Clinical Debridement Subcutaneous -Post Debridement Size (cm) - Length 16.5 -Post Debridement Size (cm) - Width 15.0 -Post Debridement Size (cm) - Depth 0.1 -Total Square Cm 247.50 -Wound/Ulcer Outcome Not Healed -Ulcer Cleansing Rinsed/ Irrigated with Saline -Foul Odor after Cleansing No -Bioengineered Tissue No -Bleeding Controlled with Pressure -Offloading No -Treatment Response Procedure Tolerated Well [See Physician Procedure note for Specifics] Pain Scale: 0-10 Numeric [Pain] -Is Patient Pain Free? Yes Musculoskeletal: No Muscle Wasting Neurological: Cranial nerves II-XII grossly intact Psych/Mental Status: Normal Affect Debridement Note Post-Debridement Measurements/Treatment WC - Nurse 2 - General Ulcer CM Notes Start: 12/08/18 09:38 Freq: Status: Active Protocol: Activity Type Activity Date Activity User E-Sign Co-Sign Detail Recorded Client Recorded Date Recorded By Document 12/08/18 10:12 MW [id number] 12/08/18 10:19 MW 12/08/18 10:12 Wound Center Nurse 2 #6 left 2nd toe dorsal -Time 10:16 -Correct Patient Yes -Correct Side, Site, Position Yes -Correct Procedure Yes -Procedure Performed Yes -Type of Procedure Debridement -Clinical Debridement Subcutaneous -Post Debridement Size (cm) - Length 0.6 -Post Debridement Size (cm) - Width 0.7 -Post Debridement Size (cm) - Depth 0.1 -Total Square Cm 0.42 -Wound/Ulcer Outcome Not Healed -Ulcer Cleansing Rinsed/ Irrigated with Saline -Foul Odor after Cleansing No -Bioengineered Tissue No -Bleeding Controlled with Pressure -Offloading No -Treatment Response Procedure Tolerated Well #5 RIGHT FOURTH TOE POSTERIOR -Time 10:13 -Correct Patient Yes -Correct Side, Site, Position Yes -Correct Procedure Yes -Procedure Performed No -Post Debridement Size (cm) - Length 0 -Post Debridement Size (cm) - Width 0 -Post Debridement Size (cm) - Depth 0 -Total Square Cm 0 -Wound/Ulcer Outcome Healed- Epithelialized #4 RIGHT THIRD TOE POSTERIOR -Time 10:15 -Correct Patient Yes -Correct Side, Site, Position Yes -Correct Procedure Yes -Procedure Performed No -Wound/Ulcer Outcome Healed- Epithelialized #3 LEFT POSTERIOR LOWER LEG -Time 10:13 -Correct Patient Yes -Correct Side, Site, Position Yes -Correct Procedure Yes -Procedure Performed No -Wound/Ulcer Outcome Healed- Epithelialized #1 RIGHT POSTERIOR CALF CLUSTER -Time 10:14 -Correct Patient Yes -Correct Side, Site, Position Yes -Correct Procedure Yes -Procedure Performed Yes -Type of Procedure Debridement -Clinical Debridement Subcutaneous -Post Debridement Size (cm) - Length 16.5 -Post Debridement Size (cm) - Width 15.0 -Post Debridement Size (cm) - Depth 0.1 -Total Square Cm 247.50 -Wound/Ulcer Outcome Not Healed -Ulcer Cleansing Rinsed/ Irrigated with Saline -Foul Odor after Cleansing No -Bioengineered Tissue No -Bleeding Controlled with Pressure -Offloading No -Treatment Response Procedure Tolerated Well Pain Scale: 0-10 Numeric Is Patient Pain Free? Yes Wound debrided: Right Calf Cluster Wound Grade/Stage: Stage II Type of Debridement: Excisional debridement Anesthesia Used: 4% Lidocaine Solution Depth: Down to and including healthy tissue, in the subcutaneous layer Percentage of wound debrided: 100 Instrument Used: 5mm curette Tissue Removed: Slough and devitalized tissue Severity: Fat Layer Exposed Amount of bleeding with debridement: Mild Bleeding Controlled with: Pressure Patient tolerated procedure well - Additional Wound Wound debrided: Left seond toe Wound Grade/Stage: Stage I Type of Debridement: Excisional debridement Anesthesia Used: 4% Lidocaine Solution Depth: Down to and including healthy tissue Percentage of wound debrided: 100 Instrument Used: 3mm curette Tissue Removed: Devitalized tissue Severity: Limited To Skin Breakdown Amount of bleeding with debridement: Mild Bleeding Controlled with: Pressure Patient tolerated procedure: Patient tolerated procedure well Assessment/Plan Active Problems Ulcer of right lower extremity with fat layer exposed (Acute) Bilateral lower extremity edema (Chronic) Toe ulcer, right (Acute) Third and fourth. Open wound of second toe of left foot (Acute) Traumatic, Penetrating. Assessment: Same as above. Plan: Debridement done as documented above. Procedure was well-tolerated. Fibracol to open surfaces with Xeroform over top. Fibrocol also to new left foot wound. Due to concern for right calf cellulitis, will start on Keflex and Doxycycline. Prescription given. 3M wraps for edema management. Change on Wednesday. Elevate lower extremity when seated and in bed. Increased protein intake recommended. Her questions were answered and she was advised to call with any further questions or concerns. Follow-up in 1 week. This note was generated with [employer] software. It may contain incorrect words, spelling, and punctuation that were not noted in checking the note before signing.
--- NOTE | 2018-12-08 10:50 | PN.PCM_ITS ---
(1) Toe ulcer, right Status: Acute Current Visit: Yes Code(s): L97.519 - Non-pressure chronic u lcer of other part of right foot with unspecified severity Comment: Third and fourth. (2) Ulcer of right lower extremity with fat layer exposed Status: Acute Current Visit: Yes Code(s): L97.912 - Non-pressure chronic ulcer of unspecified part of right lower leg with fat layer exposed (3) Bilateral lower extremity edema Status: Chronic Current Visit: Yes Code(s): R60.0 - Localized edema (4) Open wound of second toe of left foot Status: Acute Current Visit: Yes Code(s): S91.105A - Unspecified open wound of left lesser toe(s) without damage to nail, initial encounter Comment: Traumatic, Penetrating. Type of Wound Chief Complaint: Right lower extremity ulcers. History of Wound: Ms. Molina is a 48-year-old who was referred to the wound center by her primary care physician due to right lower extremity ulcers. Per patient, started out with redness pain and swelling for which she was managed for cellulitis. Subsequently developed ulcerations in her calf and enciso. She feels well other at this time and denies chills, fever, nausea, vomitting or change in her bowel habit. Progress of Wound: Increased darinage and pain of right posterior lower extremity. Right toes have healed. New left toe wound after fall. - Physical Exam Vital Signs Temp Pulse Resp BP 95.5 F L 76 20 H 118/65 12/08/18 09:39 12/08/18 09:39 12/08/18 09:39 12/08/18 09:39 General: Alert, Oriented x3, Cooperative, No apparent distress HEENT: Atraumatic, Normocephalic Oral: Moist Mucosa Neck: Supple Lungs: Normal air movement Abdomen: Non Tender, Obese Extremities: No cyanosis, Edema Skin: Ulcer/ Wound Wound Measurements and Assessment WC - Nurse 1 - General Ulcer Measurement Start: 12/08/18 09:38 Freq: Status: Active Protocol: Activity Type Activity Date Activity User E-Sign Co-Sign Detail Recorded Client Recorded Date Recorded By Document 12/08/18 09:39 AN [id number] 12/08/18 09:51 AN 12/08/18 09:39 Wound Center Nurse 1 [Ulcer Assessment] #5 RIGHT FOURTH TOE POSTERIOR -Combined with other wound No -Current Size (cm) - Length 0.1 -Current Size (cm) - Width 0.1 -Current Size (cm) - Depth 0.1 -Total Square Cm 0.01 -Epithelialization Large 67-100% -Tunneling No -Undermining/Tunneling No -Circular Undermining No -Temperature (Martha-wound Skin No Abnormality Appearance) (Pt Warm) -Tenderness on Palpation (Martha-wound No Skin Appearance) -Ulcer Cleansing Wound Cleanser -Foul Odor after Cleansing No -Anesthetic Used 4% Lidocaine Solution #4 RIGHT THIRD TOE POSTERIOR -Combined with other wound No -Current Size (cm) - Length 0.1 -Current Size (cm) - Width 0.1 -Current Size (cm) - Depth 0.1 -Total Square Cm 0.01 -Epithelialization Large 67-100% -Temperature (Martha-wound Skin No Abnormality Appearance) (Pt Warm) -Ulcer Cleansing Wound Cleanser -Foul Odor after Cleansing No -Anesthetic Used 4% Lidocaine Solution #3 LEFT POSTERIOR LOWER LEG -Combined with other wound No -Current Size (cm) - Length 0 -Current Size (cm) - Width 0 -Current Size (cm) - Depth 0 -Total Square Cm 0 -Date of Last Picture (Recall this 12/08/18 field) -Photo Taken Yes -Epithelialization Large 67-100% -Tunneling No -Undermining/Tunneling No -Circular Undermining No #1 RIGHT POSTERIOR CALF CLUSTER -Combined with other wound No -Current Size (cm) - Length 15 -Current Size (cm) - Width 9.3 -Current Size (cm) - Depth 0.1 -Total Square Cm 139.5 -Photo Taken No -Epithelialization None Present -Tunneling No -Undermining/Tunneling No -Circular Undermining No -Exudate Amt Large -Exudate Type Serous -Wound Margin Flat & Intact -Granulation Amt Medium (34-66%) -Granulation Quality [place] -Slough/Fibrin Yes -Necrosis Amt Large (67-100%) -Necrotic Tissue Type Adherent Slough -Structure Exposed None/Limited to Skin Breakdown -Texture (Martha-wound Skin Appearance) Scarring -Moisture (Martha-wound Skin Appearance Weeping ) -Color (Martha-wound Skin Appearance) Erythema -Temperature (Martha-wound Skin No Abnormality Appearance) (Pt Warm) -Tenderness on Palpation (Martha-wound No Skin Appearance) -Ulcer Cleansing Wound Cleanser -Foul Odor after Cleansing No -Anesthetic Used 4% Lidocaine Solution [Edema Assessment] -Lower Limb Edema Present Yes -Right Calf (cm) 69.6 -Right Ankle (cm) 34.4 -Left Calf (cm) 62 -Left Ankle (cm) 31.1 WC - Nurse 2 - General Ulcer CM Notes Start: 12/08/18 09:38 Freq: Status: Active Protocol: Activity Type Activity Date Activity User E-Sign Co-Sign Detail Recorded Client Recorded Date Recorded By Document 12/08/18 10:12 MW [id number] 12/08/18 10:19 MW 12/08/18 10:12 Wound Center Nurse 2 [Procedure/Treatment] #6 left 2nd toe dorsal -Time 10:16 -Correct Patient Yes -Correct Side, Site, Position Yes -Correct Procedure Yes -Procedure Performed Yes -Type of Procedure Debridement -Clinical Debridement Subcutaneous -Post Debridement Size (cm) - Length 0.6 -Post Debridement Size (cm) - Width 0.7 -Post Debridement Size (cm) - Depth 0.1 -Total Square Cm 0.42 -Wound/Ulcer Outcome Not Healed -Ulcer Cleansing Rinsed/ Irrigated with Saline -Foul Odor after Cleansing No -Bioengineered Tissue No -Bleeding Controlled with Pressure -Offloading No -Treatment Response Procedure Tolerated Well #5 RIGHT FOURTH TOE POSTERIOR -Time 10:13 -Correct Patient Yes -Correct Side, Site, Position Yes -Correct Procedure Yes -Procedure Performed No -Post Debridement Size (cm) - Length 0 -Post Debridement Size (cm) - Width 0 -Post Debridement Size (cm) - Depth 0 -Total Square Cm 0 -Wound/Ulcer Outcome Healed- Epithelialized #4 RIGHT THIRD TOE POSTERIOR -Time 10:15 -Correct Patient Yes -Correct Side, Site, Position Yes -Correct Procedure Yes -Procedure Performed No -Wound/Ulcer Outcome Healed- Epithelialized #3 LEFT POSTERIOR LOWER LEG -Time 10:13 -Correct Patient Yes -Correct Side, Site, Position Yes -Correct Procedure Yes -Procedure Performed No -Wound/Ulcer Outcome Healed- Epithelialized #1 RIGHT POSTERIOR CALF CLUSTER -Time 10:14 -Correct Patient Yes -Correct Side, Site, Position Yes -Correct Procedure Yes -Procedure Performed Yes -Type of Procedure Debridement -Clinical Debridement Subcutaneous -Post Debridement Size (cm) - Length 16.5 -Post Debridement Size (cm) - Width 15.0 -Post Debridement Size (cm) - Depth 0.1 -Total Square Cm 247.50 -Wound/Ulcer Outcome Not Healed -Ulcer Cleansing Rinsed/ Irrigated with Saline -Foul Odor after Cleansing No -Bioengineered Tissue No -Bleeding Controlled with Pressure -Offloading No -Treatment Response Procedure Tolerated Well [See Physician Procedure note for Specifics] Pain Scale: 0-10 Numeric [Pain] -Is Patient Pain Free? Yes Musculoskeletal: No Muscle Wasting Neurological: Cranial nerves II-XII grossly intact Psych/Mental Status: Normal Affect Debridement Note Post-Debridement Measurements/Treatment WC - Nurse 2 - General Ulcer CM Notes Start: 12/08/18 09:38 Freq: Status: Active Protocol: Activity Type Activity Date Activity User E-Sign Co-Sign Detail Recorded Client Recorded Date Recorded By Document 12/08/18 10:12 MW [id number] 12/08/18 10:19 MW 12/08/18 10:12 Wound Center Nurse 2 #6 left 2nd toe dorsal -Time 10:16 -Correct Patient Yes -Correct Side, Site, Position Yes -Correct Procedure Yes -Procedure Performed Yes -Type of Procedure Debridement -Clinical Debridement Subcutaneous -Post Debridement Size (cm) - Length 0.6 -Post Debridement Size (cm) - Width 0.7 -Post Debridement Size (cm) - Depth 0.1 -Total Square Cm 0.42 -Wound/Ulcer Outcome Not Healed -Ulcer Cleansing Rinsed/ Irrigated with Saline -Foul Odor after Cleansing No -Bioengineered Tissue No -Bleeding Controlled with Pressure -Offloading No -Treatment Response Procedure Tolerated Well #5 RIGHT FOURTH TOE POSTERIOR -Time 10:13 -Correct Patient Yes -Correct Side, Site, Position Yes -Correct Procedure Yes -Procedure Performed No -Post Debridement Size (cm) - Length 0 -Post Debridement Size (cm) - Width 0 -Post Debridement Size (cm) - Depth 0 -Total Square Cm 0 -Wound/Ulcer Outcome Healed- Epithelialized #4 RIGHT THIRD TOE POSTERIOR -Time 10:15 -Correct Patient Yes -Correct Side, Site, Position Yes -Correct Procedure Yes -Procedure Performed No -Wound/Ulcer Outcome Healed- Epithelialized #3 LEFT POSTERIOR LOWER LEG -Time 10:13 -Correct Patient Yes -Correct Side, Site, Position Yes -Correct Procedure Yes -Procedure Performed No -Wound/Ulcer Outcome Healed- Epithelialized #1 RIGHT POSTERIOR CALF CLUSTER -Time 10:14 -Correct Patient Yes -Correct Side, Site, Position Yes -Correct Procedure Yes -Procedure Performed Yes -Type of Procedure Debridement -Clinical Debridement Subcutaneous -Post Debridement Size (cm) - Length 16.5 -Post Debridement Size (cm) - Width 15.0 -Post Debridement Size (cm) - Depth 0.1 -Total Square Cm 247.50 -Wound/Ulcer Outcome Not Healed -Ulcer Cleansing Rinsed/ Irrigated with Saline -Foul Odor after Cleansing No -Bioengineered Tissue No -Bleeding Controlled with Pressure -Offloading No -Treatment Response Procedure Tolerated Well Pain Scale: 0-10 Numeric Is Patient Pain Free? Yes Wound debrided: Right Calf Cluster Wound Grade/Stage: Stage II Type of Debridement: Excisional debridement Anesthesia Used: 4% Lidocaine Solution Depth: Down to and including healthy tissue, in the subcutaneous layer Percentage of wound debrided: 100 Instrument Used: 5mm curette Tissue Removed: Slough and devitalized tissue Severity: Fat Layer Exposed Amount of bleeding with debridement: Mild Bleeding Controlled with: Pressure Patient tolerated procedure well - Additional Wound Wound debrided: Left seond toe Wound Grade/Stage: Stage I Type of Debridement: Excisional debridement Anesthesia Used: 4% Lidocaine Solution Depth: Down to and including healthy tissue Percentage of wound debrided: 100 Instrument Used: 3mm curette Tissue Removed: Devitalized tissue Severity: Limited To Skin Breakdown Amount of bleeding with debridement: Mild Bleeding Controlled with: Pressure Patient tolerated procedure: Patient tolerated procedure well Assessment/Plan Active Problems Ulcer of right lower extremity with fat layer exposed (Acute) Bilateral lower extremity edema (Chronic) Toe ulcer, right (Acute) Third and fourth. Open wound of second toe of left foot (Acute) Traumatic, Penetrating. Assessment: Same as above. Plan: Debridement done as documented above. Procedure was well-tolerated. Fibracol to open surfaces with Xeroform over top. Fibrocol also to new left foot wound. Due to concern for right calf cellulitis, will start on Keflex and Doxycycline. Prescription given. 3M wraps for edema management. Change on Wednesday . Elevate lower extremity when seated and in bed. Increased protein intake recommended. Her questions were answered and she was advised to call with any further questions or concerns. Follow-up in 1 week. This note was generated with [employer] software. It may contain incorrect words, spelling, and punctuation that were not noted in checking the note before signing.
[2018-12-14 09:44] VITALS: BP 134/75; PULSE 69; RESP 16; TEMP 36; BMI 73.8
--- NOTE | 2018-12-14 10:46 | PCM.WC.PN ---
(1) Toe ulcer, right Status: Acute Current Visit: Yes Code(s): L97.519 - Non-pressure chronic ulcer of other part of right foot with unspecified severity Comment: Third and fourth. (2) Ulcer of right lower extremity with fat layer exposed Status: Acute Current Visit: Yes Code(s): L97.912 - Non-pressure chronic ulcer of unspecified part of right lower leg with fat layer exposed (3) Bilateral lower extremity edema Status: Chronic Current Visit: Yes Code(s): R60.0 - Localized edema (4) Open wound of second toe of left foot Status: Acute Current Visit: Yes Code(s): S91.105A - Unspecified open wound of left lesser toe(s) without damage to nail, initial encounter Comment: Traumatic, Penetrating. Type of Wound Chief Complaint: Right lower extremity ulcers. History of Wound: Ms. Molina is a 48-year-old who was referred to the wound center by her primary care physician due to right lower extremity ulcers. Per patient, started out with redness pain and swelling for which she was managed for cellulitis. Subsequently developed ulcerations in her calf and enciso. She feels well other at this time and denies chills, fever, nausea, vomitting or change in her bowel habit. Progress of Wound: Drainage and pain of her right lower extremity have improved. She has completed a course of antibiotics. Had some concerns with her 3M wrap over the last week. - Physical Exam Vital Signs Temp Pulse Resp BP 96.8 F L 69 16 134/75 H 12/14/18 09:44 12/14/18 09:44 12/14/18 09:44 12/14/18 09:44 General: Alert, Oriented x3, Cooperative, No apparent distress HEENT: Atraumatic, Normocephalic Oral: Moist Mucosa Neck: Supple Lungs: Normal air movement Abdomen: Obese Extremities: No cyanosis, Edema Skin: Ulcer/ Wound Wound Measurements and Assessment WC - Nurse 1 - General Ulcer Measurement Start: 12/08/18 09:38 Freq: Status: Active Protocol: Activity Type Activity Date Activity User E-Sign Co-Sign Detail Recorded Client Recorded Date Recorded By Document 12/14/18 09:44 [facility] [id number] 12/14/18 09:54 [facility] 12/14/18 09:44 Wound Center Nurse 1 [Ulcer Assessment] #6 left 2nd toe dorsal -Combined with other wound No -Current Size (cm) - Length 0.5 -Current Size (cm) - Width 0.8 -Current Size (cm) - Depth 0.1 -Total Square Cm 0.40 -Photo Taken No -Epithelialization None Present -Tunneling No -Undermining/Tunneling No -Circular Undermining No -Exudate Amt None Present -Wound Margin Flat & Intact -Granulation Amt None Present (0 %) -Slough/Fibrin Yes -Necrosis Amt Large (67-100%) -Necrotic Tissue Type Eschar -Texture (Martha-wound Skin Appearance) Scarring -Moisture (Martha-wound Skin Appearance Assessed ) -Color (Martha-wound Skin Appearance) Assessed -Temperature (Martha-wound Skin No Abnormality Appearance) (Pt Warm) -Tenderness on Palpation (Martha-wound No Skin Appearance) -Ulcer Cleansing Wound Cleanser -Foul Odor after Cleansing No -Anesthetic Used 4% Lidocaine Solution #1 RIGHT POSTERIOR CALF CLUSTER -Combined with other wound No -Current Size (cm) - Length 14 -Current Size (cm) - Width 7.5 -Current Size (cm) - Depth 0.1 -Total Square Cm 105.0 -Photo Taken No -Epithelialization Small 1-33% -Tunneling No -Undermining/Tunneling No -Circular Undermining No -Exudate Amt Medium -Exudate Type Serous -Wound Margin Flat & Intact -Granulation Amt Medium (34-66%) -Granulation Quality [place] -Slough/Fibrin Yes -Necrosis Amt Medium (34-66%) -Necrotic Tissue Type Adherent Slough -Texture (Martha-wound Skin Appearance) Scarring -Moisture (Martha-wound Skin Appearance Maceration ) -Color (Martha-wound Skin Appearance) Erythema Palor -Temperature (Martha-wound Skin No Abnormality Appearance) (Pt Warm) -Tenderness on Palpation (Martha-wound No Skin Appearance) -Ulcer Cleansing Wound Cleanser -Foul Odor after Cleansing No -Anesthetic Used 4% Lidocaine Solution [Edema Assessment] -Lower Limb Edema Present Yes -Right Calf (cm) 66.4 -Right Ankle (cm) 34.5 -Left Calf (cm) 62.6 -Left Ankle (cm) 32.2 WC - Nurse 2 - General Ulcer CM Notes Start: 12/08/18 09:38 Freq: Status: Active Protocol: Activity Type Activity Date Activity User E-Sign Co-Sign Detail Recorded Client Recorded Date Recorded By Document 12/14/18 10:31 MW [id number] 12/14/18 10:38 MW 12/14/18 10:31 Wound Center Nurse 2 [Procedure/Treatment] #6 left 2nd toe dorsal -Time 10:31 -Correct Patient Yes -Correct Side, Site, Position Yes -Correct Procedure Yes -Procedure Performed Yes -Type of Procedure Debridement -Clinical Debridement Subcutaneous -Post Debridement Size (cm) - Length 0.4 -Post Debridement Size (cm) - Width 0.9 -Post Debridement Size (cm) - Depth 0.1 -Total Square Cm 0.36 -Wound/Ulcer Outcome Not Healed -Ulcer Cleansing Rinsed/ Irrigated with Saline -Foul Odor after Cleansing No -Bioengineered Tissue No -Bleeding Controlled with Pressure -Offloading No -Treatment Response Procedure Tolerated Well #1 RIGHT POSTERIOR CALF CLUSTER -Time 10:35 -Correct Patient Yes -Correct Side, Site, Position Yes -Correct Procedure Yes -Procedure Performed Yes -Type of Procedure Debridement -Clinical Debridement Subcutaneous -Post Debridement Size (cm) - Length 13.0 -Post Debridement Size (cm) - Width 8.0 -Post Debridement Size (cm) - Depth 0.1 -Total Square Cm 104.00 -Wound/Ulcer Outcome Not Healed -Ulcer Cleansing Rinsed/ Irrigated with Saline -Foul Odor after Cleansing No -Bioengineered Tissue No -Bleeding Controlled with Pressure -Offloading No -Treatment Response Procedure Tolerated Well [See Physician Procedure note for Specifics] Pain Scale: 0-10 Numeric [Pain] -Is Patient Pain Free? Yes Musculoskeletal: No Muscle Wasting Neurological: Cranial nerves II-XII grossly intact Psych/Mental Status: Normal Affect Debridement Note Post-Debridement Measurements/Treatment WC - Nurse 2 - General Ulcer CM Notes Start: 12/08/18 09:38 Freq: Status: Active Protocol: Activity Type Activity Date Activity User E-Sign Co-Sign Detail Recorded Client Recorded Date Recorded By Document 12/08/18 10:12 MW [id number] 12/08/18 10:19 MW Document 12/14/18 10:31 MW [id number] 12/14/18 10:38 MW 12/08/18 12/14/18 10:12 10:31 Wound Center Nurse 2 #6 left 2nd toe dorsal -Time 10:16 10:31 -Correct Patient Yes Yes -Correct Side, Site, Position Yes Yes -Correct Procedure Yes Yes -Procedure Performed Yes Yes -Type of Procedure Debridement Debridement -Clinical Debridement Subcutaneous Subcutaneous -Post Debridement Size (cm) - Length 0.6 0.4 -Post Debridement Size (cm) - Width 0.7 0.9 -Post Debridement Size (cm) - Depth 0.1 0.1 -Total Square Cm 0.42 0.36 -Wound/Ulcer Outcome Not Healed Not Healed -Ulcer Cleansing Rinsed/ Rinsed/ Irrigated with Irrigated with Saline Saline -Foul Odor after Cleansing No No -Bioengineered Tissue No No -Bleeding Controlled with Pressure Pressure -Offloading No No -Treatment Response Procedure Procedure Tolerated Well Tolerated Well #5 RIGHT FOURTH TOE POSTERIOR -Time 10:13 -Correct Patient Yes -Correct Side, Site, Position Yes -Correct Procedure Yes -Procedure Performed No -Post Debridement Size (cm) - Length 0 -Post Debridement Size (cm) - Width 0 -Post Debridement Size (cm) - Depth 0 -Total Square Cm 0 -Wound/Ulcer Outcome Healed- Epithelialized #4 RIGHT THIRD TOE POSTERIOR -Time 10:15 -Correct Patient Yes -Correct Side, Site, Position Yes -Correct Procedure Yes -Procedure Performed No -Wound/Ulcer Outcome Healed- Epithelialized #3 LEFT POSTERIOR LOWER LEG -Time 10:13 -Correct Patient Yes -Correct Side, Site, Position Yes -Correct Procedure Yes -Procedure Performed No -Wound/Ulcer Outcome Healed- Epithelialized #1 RIGHT POSTERIOR CALF CLUSTER -Time 10:14 10:35 -Correct Patient Yes Yes -Correct Side, Site, Position Yes Yes -Correct Procedure Yes Yes -Procedure Performed Yes Yes -Type of Procedure Debridement Debridement -Clinical Debridement Subcutaneous Subcutaneous -Post Debridement Size (cm) - Length 16.5 13.0 -Post Debridement Size (cm) - Width 15.0 8.0 -Post Debridement Size (cm) - Depth 0.1 0.1 -Total Square Cm 247.50 104.00 -Wound/Ulcer Outcome Not Healed Not Healed -Ulcer Cleansing Rinsed/ Rinsed/ Irrigated with Irrigated with Saline Saline -Foul Odor after Cleansing No No -Bioengineered Tissue No No -Bleeding Controlled with Pressure Pressure -Offloading No No -Treatment Response Procedure Procedure Tolerated Well Tolerated Well Pain Scale: 0-10 Numeric Is Patient Pain Free? Yes Yes Wound debrided: Right calf Wound Grade/Stage: Stage II Type of Debridement: Excisional debridement Anesthesia Used: 4% Lidocaine Solution Depth: Down to and including healthy tissue, in the subcutaneous layer Percentage of wound debrided: 100 Instrument Used: 5mm curette Tissue Removed: Slough and devitalized tissue Severity: Fat Layer Exposed Amount of bleeding with debridement: Mild Bleeding Controlled with: Pressure Patient tolerated procedure well - Additional Wound Wound debrided: Left second toe Wound Grade/Stage: Stage II Type of Debridement: Excisional debridement Anesthesia Used: 4% Lidocaine Solution Depth: Down to and including healthy tissue, in the subcutaneous layer Percentage of wound debrided: 100 Instrument Used: 3mm curette Tissue Removed: Slough and devitalized tissue Severity: Fat Layer Exposed Amount of bleeding with debridement: Mild Bleeding Controlled with: Pressure Patient tolerated procedure: Patient tolerated procedure well Assessment/Plan Active Problems Ulcer of right lower extremity with fat layer exposed (Acute) Bilateral lower extremity edema (Chronic) Toe ulcer, right (Acute) Third and fourth. Open wound of second toe of left foot (Acute) Traumatic, Penetrating. Assessment: Same as above. Plan: Debridement done as documented above. Procedure was well-tolerated. Continue Fibracol to open surfaces with Xeroform over top. Will switch back to daily Isreal wraps. Did not do well with the 3M's. Elevate lower extremity when seated and in bed. Increased protein intake recommended. Her questions were answered and she was advised to call with any further questions or concerns. Follow-up in 1 week. This note was generated with [employer] software. It may contain incorrect words, spelling, and punctuation that were not noted in checking the note before signing.
--- NOTE | 2018-12-14 10:49 | PN.PCM_ITS ---
(1) Toe ulcer, right Status: Acute Current Visit: Yes Code(s): L97.519 - Non-pressure chronic u lcer of other part of right foot with unspecified severity Comment: Third and fourth. (2) Ulcer of right lower extremity with fat layer exposed Status: Acute Current Visit: Yes Code(s): L97.912 - Non-pressure chronic ulcer of unspecified part of right lower leg with fat layer exposed (3) Bilateral lower extremity edema Status: Chronic Current Visit: Yes Code(s): R60.0 - Localized edema (4) Open wound of second toe of left foot Status: Acute Current Visit: Yes Code(s): S91.105A - Unspecified open wound of left lesser toe(s) without damage to nail, initial encounter Comment: Traumatic, Penetrating. Type of Wound Chief Complaint: Right lower extremity ulcers. History of Wound: Ms. Molina is a 48-year-old who was referred to the wound center by her primary care physician due to right lower extremity ulcers. Per patient, started out with redness pain and swelling for which she was managed for cellulitis. Subsequently developed ulcerations in her calf and enciso. She feels well other at this time and denies chills, fever, nausea, vomitting or change in her bowel habit. Progress of Wound: Drainage and pain of her right lower extremity have improved. She has completed a course of antibiotics. Had some concerns with her 3M wrap over the last week. - Physical Exam Vital Signs Temp Pulse Resp BP 96.8 F L 69 16 134/75 H 12/14/18 09:44 12/14/18 09:44 12/14/18 09:44 12/14/18 09:44 General: Alert, Oriented x3, Cooperative, No apparent distress HEENT: Atraumatic, Normocephalic Oral: Moist Mucosa Neck: Supple Lungs: Normal air movement Abdomen: Obese Extremities: No cyanosis, Edema Skin: Ulcer/ Wound Wound Measurements and Assessment WC - Nurse 1 - General Ulcer Measurement Start: 12/08/18 09:38 Freq: Status: Active Protocol: Activity Type Activity Date Activity User E-Sign Co-Sign Detail Recorded Client Recorded Date Recorded By Document 12/14/18 09:44 [facility] [id number] 12/14/18 09:54 [facility] 12/14/18 09:44 Wound Center Nurse 1 [Ulcer Assessment] #6 left 2nd toe dorsal -Combined with other wound No -Current Size (cm) - Length 0.5 -Current Size (cm) - Width 0.8 -Current Size (cm) - Depth 0.1 -Total Square Cm 0.40 -Photo Taken No -Epithelialization None Present -Tunneling No -Undermining/Tunneling No -Circular Undermining No -Exudate Amt None Present -Wound Margin Flat & Intact -Granulation Amt None Present (0 %) -Slough/Fibrin Yes -Necrosis Amt Large (67-100%) -Necrotic Tissue Type Eschar -Texture (Martha-wound Skin Appearance) Scarring -Moisture (Martha-wound Skin Appearance Assessed ) -Color (Martha-wound Skin Appearance) Assessed -Temperature (Martha-wound Skin No Abnormality Appearance) (Pt Warm) -Tenderness on Palpation (Martha-wound No Skin Appearance) -Ulcer Cleansing Wound Cleanser -Foul Odor after Cleansing No -Anesthetic Used 4% Lidocaine Solution #1 RIGHT POSTERIOR CALF CLUSTER -Combined with other wound No -Current Size (cm) - Length 14 -Current Size (cm) - Width 7.5 -Current Size (cm) - Depth 0.1 -Total Square Cm 105.0 -Photo Taken No -Epithelialization Small 1-33% -Tunneling No -Undermining/Tunneling No -Circular Undermining No -Exudate Amt Medium -Exudate Type Serous -Wound Margin Flat & Intact -Granulation Amt Medium (34-66%) -Granulation Quality [place] -Slough/Fibrin Yes -Necrosis Amt Medium (34-66%) -Necrotic Tissue Type Adherent Slough -Texture (Martha-wound Skin Appearance) Scarring -Moisture (Martha-wound Skin Appearance Maceration ) -Color (Martha-wound Skin Appearance) Erythema Palor -Temperature (Martha-wound Skin No Abnormality Appearance) (Pt Warm) -Tenderness on Palpation (Martha-wound No Skin Appearance) -Ulcer Cleansing Wound Cleanser -Foul Odor after Cleansing No -Anesthetic Used 4% Lidocaine Solution [Edema Assessment] -Lower Limb Edema Present Yes -Right Calf (cm) 66.4 -Right Ankle (cm) 34.5 -Left Calf (cm) 62.6 -Left Ankle (cm) 32.2 WC - Nurse 2 - General Ulcer CM Notes Start: 12/08/18 09:38 Freq: Status: Active Protocol: Activity Type Activity Date Activity User E-Sign Co-Sign Detail Recorded Client Recorded Date Recorded By Document 12/14/18 10:31 MW [id number] 12/14/18 10:38 MW 12/14/18 10:31 Wound Center Nurse 2 [Procedure/Treatment] #6 left 2nd toe dorsal -Time 10:31 -Correct Patient Yes -Correct Side, Site, Position Yes -Correct Procedure Yes -Procedure Performed Yes -Type of Procedure Debridement -Clinical Debridement Subcutaneous -Post Debridement Size (cm) - Length 0.4 -Post Debridement Size (cm) - Width 0.9 -Post Debridement Size (cm) - Depth 0.1 -Total Square Cm 0.36 -Wound/Ulcer Outcome Not Healed -Ulcer Cleansing Rinsed/ Irrigated with Saline -Foul Odor after Cleansing No -Bioengineered Tissue No -Bleeding Controlled with Pressure -Offloading No -Treatment Response Procedure Tolerated Well #1 RIGHT POSTERIOR CALF CLUSTER -Time 10:35 -Correct Patient Yes -Correct Side, Site, Position Yes -Correct Procedure Yes -Procedure Performed Yes -Type of Procedure Debridement -Clinical Debridement Subcutaneous -Post Debridement Size (cm) - Length 13.0 -Post Debridement Size (cm) - Width 8.0 -Post Debridement Size (cm) - Depth 0.1 -Total Square Cm 104.00 -Wound/Ulcer Outcome Not Healed -Ulcer Cleansing Rinsed/ Irrigated with Saline -Foul Odor after Cleansing No -Bioengineered Tissue No -Bleeding Controlled with Pressure -Offloading No -Treatment Response Procedure Tolerated Well [See Physician Procedure note for Specifics] Pain Scale: 0-10 Numeric [Pain] -Is Patient Pain Free? Yes Musculoskeletal: No Muscle Wasting Neurological: Cranial nerves II-XII grossly intact Psych/Mental Status: Normal Affect Debridement Note Post-Debridement Measurements/Treatment WC - Nurse 2 - General Ulcer CM Notes Start: 12/08/18 09:38 Freq: Status: Active Protocol: Activity Type Activity Date Activity User E-Sign Co-Sign Detail Recorded Client Recorded Date Recorded By Document 12/08/18 10:12 MW [id number] 12/08/18 10:19 MW Document 12/14/18 10:31 MW [id number] 12/14/18 10:38 MW 12/08/18 12/14/18 10:12 10:31 Wound Center Nurse 2 #6 left 2nd toe dorsal -Time 10:16 10:31 -Correct Patient Yes Yes -Correct Side, Site, Position Yes Yes -Correct Procedure Yes Yes -Procedure Performed Yes Yes -Type of Procedure Debridement Debridement -Clinical Debridement Subcutaneous Subcutaneous -Post Debridement Size (cm) - Length 0.6 0.4 -Post Debridement Size (cm) - Width 0.7 0.9 -Post Debridement Size (cm) - Depth 0.1 0.1 -Total Square Cm 0.42 0.36 -Wound/Ulcer Outcome Not Healed Not Healed -Ulcer Cleansing Rinsed/ Rinsed/ Irrigated with Irrigated with Saline Saline -Foul Odor after Cleansing No No -Bioengineered Tissue No No -Bleeding Controlled with Pressure Pressure -Offloading No No -Treatment Response Procedure Procedure Tolerated Well Tolerated Well #5 RIGHT FOURTH TOE POSTERIOR -Time 10:13 -Correct Patient Yes -Correct Side, Site, Position Yes -Correct Procedure Yes -Procedure Performed No -Post Debridement Size (cm) - Length 0 -Post Debridement Size (cm) - Width 0 -Post Debridement Size (cm) - Depth 0 -Total Square Cm 0 -Wound/Ulcer Outcome Healed- Epithelialized #4 RIGHT THIRD TOE POSTERIOR -Time 10:15 -Correct Patient Yes -Correct Side, Site, Position Yes -Correct Procedure Yes -Procedure Performed No -Wound/Ulcer Outcome Healed- Epithelialized #3 LEFT POSTERIOR LOWER LEG -Time 10:13 -Correct Patient Yes -Correct Side, Site, Position Yes -Correct Procedure Yes -Procedure Performed No -Wound/Ulcer Outcome Healed- Epithelialized #1 RIGHT POSTERIOR CALF CLUSTER -Time 10:14 10:35 -Correct Patient Yes Yes -Correct Side, Site, Position Yes Yes -Correct Procedure Yes Yes -Procedure Performed Yes Yes -Type of Procedure Debridement Debridement -Clinical Debridement Subcutaneous Subcutaneous -Post Debridement Size (cm) - Length 16.5 13.0 -Post Debridement Size (cm) - Width 15.0 8.0 -Post Debridement Size (cm) - Depth 0.1 0.1 -Total Square Cm 247.50 104.00 -Wound/Ulcer Outcome Not Healed Not Healed -Ulcer Cleansing Rinsed/ Rinsed/ Irrigated with Irrigated with Saline Saline -Foul Odor after Cleansing No No -Bioengineered Tissue No No -Bleeding Controlled with Pressure Pressure -Offloading No No -Treatment Response Procedure Procedure Tolerated Well Tolerated Well Pain Scale: 0-10 Numeric Is Patient Pain Free? Yes Yes Wound debrided: Right calf Wound Grade/Stage: Stage II Type of Debridement: Excisional debridement Anesthesia Used: 4% Lidocaine Solution Depth: Down to and including healthy tissue, in the subcutaneous layer Percentage of wound debrided: 100 Instrument Used: 5mm curette Tissue Removed: Slough and devitalized tissue Severity: Fat Layer Exposed Amount of bleeding with debridement: Mild Bleeding Controlled with: Pressure Patient tolerated procedure well - Additional Wound Wound debrided: Left second toe Wound Grade/Stage: Stage II Type of Debridement: Excisional debridement Anesthesia Used: 4% Lidocaine Solution Depth: Down to and including healthy tissue, in the subcutaneous layer Percentage of wound debrided: 100 Instrument Used: 3mm curette Tissue Removed: Slough and devitalized tissue Severity: Fat Layer Exposed Amount of bleeding with debridement: Mild Bleeding Controlled with: Pressure Patient tolerated procedure: Patient tolerated procedure well Assessment/Plan Active Problems Ulcer of right lower extremity with fat layer exposed (Acute) Bilateral lower extremity edema (Chronic) Toe ulcer, right (Acute) Third and fourth. Open wound of second toe of left foot (Acute) Traumatic, Penetrating. Assessment: Same as above. Plan: Debridement done as documented above. Procedure was well-tolerated. Continue Fibracol to open surfaces with Xeroform over top. Will switch back to daily Isreal wraps. Did not do well with the 3M's. Elevate lower extremity when seated and in bed. Increased protein intake recommended. Her questions were answered and she was advised to call with any further questions or concerns. Follow-up in 1 week. This note was generated with [employer] dictation software. It may contain incorrect words, spelling, and punctuation that were not noted in checking the note before signing.
[2018-12-21 09:13] VITALS: BP 145/81; PULSE 73; RESP 22; TEMP 35.3; BMI 73.8
--- NOTE | 2018-12-21 12:19 | PCM.WC.PN ---
(1) Toe ulcer, right Status: Acute Current Visit: Yes Code(s): L97.519 - Non-pressure chronic ulcer of other part of right foot with unspecified severity Comment: Third and fourth. (2) Ulcer of right lower extremity with fat layer exposed Status: Acute Current Visit: Yes Code(s): L97.912 - Non-pressure chronic ulcer of unspecified part of right lower leg with fat layer exposed (3) Bilateral lower extremity edema Status: Chronic Current Visit: Yes Code(s): R60.0 - Localized edema (4) Open wound of second toe of left foot Status: Acute Current Visit: Yes Code(s): S91.105A - Unspecified open wound of left lesser toe(s) without damage to nail, initial encounter Comment: Traumatic, Penetrating. Type of Wound Chief Complaint: Right lower extremity ulcers. History of Wound: Ms. Molina is a 48-year-old who was referred to the wound center by her primary care physician due to right lower extremity ulcers. Per patient, started out with redness pain and swelling for which she was managed for cellulitis. Subsequently developed ulcerations in her calf and enciso. She feels well other at this time and denies chills, fever, nausea, vomitting or change in her bowel habit. Progress of Wound: For edema control. She will like to go back on the 3M wraps. - Physical Exam Vital Signs Temp Pulse Resp BP 95.5 F L 73 22 H 145/81 H 12/21/18 09:13 12/21/18 09:13 12/21/18 09:13 12/21/18 09:13 General: Alert, Oriented x3, Cooperative, No apparent distress HEENT: Atraumatic, Normocephalic Oral: Moist Mucosa Neck: Supple Lungs: Normal air movement Abdomen: Non Tender, Obese Extremities: No cyanosis, Edema Skin: Ulcer/ Wound Wound Measurements and Assessment WC - Nurse 1 - General Ulcer Measurement Start: 12/08/18 09:38 Freq: Status: Active Protocol: Activity Type Activity Date Activity User E-Sign Co-Sign Detail Recorded Client Recorded Date Recorded By Document 12/21/18 09:[address] [facility] [id number] 12/21/18 09:[address] [facility] 12/21/18 09:13 Wound Center Nurse 1 [Ulcer Assessment] #6 left 2nd toe dorsal -Combined with other wound No -Current Size (cm) - Length 0.5 -Current Size (cm) - Width 0.6 -Current Size (cm) - Depth 0.1 -Total Square Cm 0.30 -Photo Taken No -Epithelialization Small 1-33% -Tunneling No -Undermining/Tunneling No -Circular Undermining No -Exudate Amt Small -Exudate Type Serosanguineous -Wound Margin Distinct, Outline Attached -Granulation Amt Small (1-33%) -Granulation Quality [place] -Slough/Fibrin Yes -Necrosis Amt Large (67-100%) -Necrotic Tissue Type Adherent Slough -Texture (Martha-wound Skin Appearance) Scarring -Moisture (Martha-wound Skin Appearance Assessed ) -Color (Martha-wound Skin Appearance) Assessed -Temperature (Martha-wound Skin No Abnormality Appearance) (Pt Warm) -Tenderness on Palpation (Martha-wound No Skin Appearance) -Ulcer Cleansing Wound Cleanser -Foul Odor after Cleansing No -Anesthetic Used 4% Lidocaine Solution #1 RIGHT POSTERIOR CALF CLUSTER -Combined with other wound No -Current Size (cm) - Length 16.5 -Current Size (cm) - Width 10 -Current Size (cm) - Depth 0.1 -Total Square Cm 165.0 -Photo Taken No -Epithelialization None Present -Tunneling No -Undermining/Tunneling No -Circular Undermining No -Exudate Amt Large -Exudate Type Serous -Wound Margin Flat & Intact -Granulation Amt Medium (34-66%) -Granulation Quality Red -Slough/Fibrin Yes -Necrosis Amt Medium (34-66%) -Necrotic Tissue Type Adherent Slough -Texture (Martha-wound Skin Appearance) Scarring -Moisture (Martha-wound Skin Appearance Maceration ) Weeping -Color (Martha-wound Skin Appearance) Erythema -Temperature (Martha-wound Skin No Abnormality Appearance) (Pt Warm) -Tenderness on Palpation (Martha-wound No Skin Appearance) -Ulcer Cleansing Rinsed/ Irrigated with Saline -Foul Odor after Cleansing No -Anesthetic Used 4% Lidocaine Solution [Edema Assessment] -Lower Limb Edema Present Yes -Right Calf (cm) 69.6 -Right Ankle (cm) 30.4 -Left Calf (cm) 61.5 -Left Ankle (cm) 32 WC - Nurse 2 - General Ulcer CM Notes Start: 12/08/18 09:38 Freq: Status: Active Protocol: Activity Type Activity Date Activity User E-Sign Co-Sign Detail Recorded Client Recorded Date Recorded By Document 12/21/18 09:56 MW [id number] 12/21/18 10:02 MW 12/21/18 09:56 Wound Center Nurse 2 [Procedure/Treatment] #6 left 2nd toe dorsal -Time 09:58 -Correct Patient Yes -Correct Side, Site, Position Yes -Correct Procedure Yes -Procedure Performed Yes -Type of Procedure Debridement -Clinical Debridement Subcutaneous -Post Debridement Size (cm) - Length 0.4 -Post Debridement Size (cm) - Width 0.8 -Post Debridement Size (cm) - Depth 0.1 -Total Square Cm 0.32 -Wound/Ulcer Outcome Not Healed -Ulcer Cleansing Rinsed/ Irrigated with Saline -Foul Odor after Cleansing No -Bioengineered Tissue No -Bleeding Controlled with Pressure -Offloading No -Treatment Response Procedure Tolerated Well #1 RIGHT POSTERIOR CALF CLUSTER -Time 09:58 -Correct Patient Yes -Correct Side, Site, Position Yes -Correct Procedure Yes -Procedure Performed Yes -Type of Procedure Debridement -Clinical Debridement Subcutaneous -Post Debridement Size (cm) - Length 17.5 -Post Debridement Size (cm) - Width 9.0 -Post Debridement Size (cm) - Depth 0.1 -Total Square Cm 157.50 -Wound/Ulcer Outcome Not Healed -Ulcer Cleansing Rinsed/ Irrigated with Saline -Foul Odor after Cleansing No -Bioengineered Tissue No -Bleeding Controlled with Pressure -Offloading No -Treatment Response Procedure Tolerated Well [See Physician Procedure note for Specifics] Pain Scale: 0-10 Numeric [Pain] -Is Patient Pain Free? Yes Musculoskeletal: No Muscle Wasting Neurological: Cranial nerves II-XII grossly intact Psych/Mental Status: Normal Affect Debridement Note Post-Debridement Measurements/Treatment WC - Nurse 2 - General Ulcer CM Notes Start: 12/08/18 09:38 Freq: Status: Active Protocol: Activity Type Activity Date Activity User E-Sign Co-Sign Detail Recorded Client Recorded Date Recorded By Document 12/08/18 10:12 MW [id number] 12/08/18 10:19 MW Document 12/14/18 10:31 MW [id number] 12/14/18 10:38 MW Document 12/21/18 09:56 MW [id number] 12/21/18 10:02 MW 12/08/18 12/14/18 12/21/18 10:12 10:31 09:56 Wound Center Nurse 2 #6 left 2nd toe dorsal -Time 10:16 10:31 09:58 -Correct Patient Yes Yes Yes -Correct Side, Site, Position Yes Yes Yes -Correct Procedure Yes Yes Yes -Procedure Performed Yes Yes Yes -Type of Procedure Debridement Debridement Debridement -Clinical Debridement Subcutaneous Subcutaneous Subcutaneous -Post Debridement Size (cm) - Length 0.6 0.4 0.4 -Post Debridement Size (cm) - Width 0.7 0.9 0.8 -Post Debridement Size (cm) - Depth 0.1 0.1 0.1 -Total Square Cm 0.42 0.36 0.32 -Wound/Ulcer Outcome Not Healed Not Healed Not Healed -Ulcer Cleansing Rinsed/ Rinsed/ Rinsed/ Irrigated with Irrigated with Irrigated with Saline Saline Saline -Foul Odor after Cleansing No No No -Bioengineered Tissue No No No -Bleeding Controlled with Pressure Pressure Pressure -Offloading No No No -Treatment Response Procedure Procedure Procedure Tolerated Well Tolerated Well Tolerated Well #5 RIGHT FOURTH TOE POSTERIOR -Time 10:13 -Correct Patient Yes -Correct Side, Site, Position Yes -Correct Procedure Yes -Procedure Performed No -Post Debridement Size (cm) - Length 0 -Post Debridement Size (cm) - Width 0 -Post Debridement Size (cm) - Depth 0 -Total Square Cm 0 -Wound/Ulcer Outcome Healed- Epithelialized #4 RIGHT THIRD TOE POSTERIOR -Time 10:15 -Correct Patient Yes -Correct Side, Site, Position Yes -Correct Procedure Yes -Procedure Performed No -Wound/Ulcer Outcome Healed- Epithelialized #3 LEFT POSTERIOR LOWER LEG -Time 10:13 -Correct Patient Yes -Correct Side, Site, Position Yes -Correct Procedure Yes -Procedure Performed No -Wound/Ulcer Outcome Healed- Epithelialized #1 RIGHT POSTERIOR CALF CLUSTER -Time 10:14 10:35 09:58 -Correct Patient Yes Yes Yes -Correct Side, Site, Position Yes Yes Yes -Correct Procedure Yes Yes Yes -Procedure Performed Yes Yes Yes -Type of Procedure Debridement Debridement Debridement -Clinical Debridement Subcutaneous Subcutaneous Subcutaneous -Post Debridement Size (cm) - Length 16.5 13.0 17.5 -Post Debridement Size (cm) - Width 15.0 8.0 9.0 -Post Debridement Size (cm) - Depth 0.1 0.1 0.1 -Total Square Cm 247.50 104.00 157.50 -Wound/Ulcer Outcome Not Healed Not Healed Not Healed -Ulcer Cleansing Rinsed/ Rinsed/ Rinsed/ Irrigated with Irrigated with Irrigated with Saline Saline Saline -Foul Odor after Cleansing No No No -Bioengineered Tissue No No No -Bleeding Controlled with Pressure Pressure Pressure -Offloading No No No -Treatment Response Procedure Procedure Procedure Tolerated Well Tolerated Well Tolerated Well Pain Scale: 0-10 Numeric Is Patient Pain Free? Yes Yes Yes Wound debrided: Left second toe Wound Grade/Stage: Stage II Type of Debridement: Excisional debridement Anesthesia Used: 4% Lidocaine Solution Depth: Down to and including healthy tissue, in the subcutaneous layer Percentage of wound debrided: 100 Instrument Used: 3mm curette Tissue Removed: Slough and devitalized tissue Severity: Fat Layer Exposed Amount of bleeding with debridement: Mild Bleeding Controlled with: Pressure Patient tolerated procedure well - Additional Wound Wound debrided: Right lower extremity Wound Grade/Stage: Stage II Type of Debridement: Excisional debridement Anesthesia Used: 4% Lidocaine Solution Depth: Down to and including healthy tissue, in the subcutaneous layer Percentage of wound debrided: 100 Instrument Used: 5mm curette Tissue Removed: Slough and devitalized tissue Severity: Fat Layer Exposed Amount of bleeding with debridement: Mild Bleeding Controlled with: Pressure Patient tolerated procedure: Patient tolerated procedure well Assessment/Plan Active Problems Ulcer of right lower extremity with fat layer exposed (Acute) Bilateral lower extremity edema (Chronic) Toe ulcer, right (Acute) Third and fourth. Open wound of second toe of left foot (Acute) Traumatic, Penetrating. Assessment: Same as above. Plan: Debridement done as documented above. Procedure was well-tolerated. Switch to Promogran to open surfaces with Adaptic over top. Worsening edema. Patient states that she believes she will better tolerate the 3M wraps now ?. 3M wrap for edema management. Change in Wednesday by home health. Elevate lower extremity when seated and in bed. Increased protein intake recommended. Her questions were answered and she was advised to call with any further questions or concerns. Follow-up in 1 week. This note was generated with Spreadsaveation software. It may contain incorrect words, spelling, and punctuation that were not noted in checking the note before signing.
--- NOTE | 2018-12-21 12:23 | PN.PCM_ITS ---
(1) Toe ulcer, right Status: Acute Current Visit: Yes Code(s): L97.519 - Non-pressure chronic u lcer of other part of right foot with unspecified severity Comment: Third and fourth. (2) Ulcer of right lower extremity with fat layer exposed Status: Acute Current Visit: Yes Code(s): L97.912 - Non-pressure chronic ulcer of unspecified part of right lower leg with fat layer exposed (3) Bilateral lower extremity edema Status: Chronic Current Visit: Yes Code(s): R60.0 - Localized edema (4) Open wound of second toe of left foot Status: Acute Current Visit: Yes Code(s): S91.105A - Unspecified open wound of left lesser toe(s) without damage to nail, initial encounter Comment: Traumatic, Penetrating. Type of Wound Chief Complaint: Right lower extremity ulcers. History of Wound: Ms. Molina is a 48-year-old who was referred to the wound center by her primary care physician due to right lower extremity ulcers. Per patient, started out with redness pain and swelling for which she was managed for cellulitis. Subsequently developed ulcerations in her calf and enciso. She feels well other at this time and denies chills, fever, nausea, vomitting or change in her bowel habit. Progress of Wound: For edema control. She will like to go back on the 3M wraps. - Physical Exam Vital Signs Temp Pulse Resp BP 95.5 F L 73 22 H 145/81 H 12/21/18 09:13 12/21/18 09:13 12/21/18 09:13 12/21/18 09:13 General: Alert, Oriented x3, Cooperative, No apparent distress HEENT: Atraumatic, Normocephalic Oral: Moist Mucosa Neck: Supple Lungs: Normal air movement Abdomen: Non Tender, Obese Extremities: No cyanosis, Edema Skin: Ulcer/ Wound Wound Measurements and Assessment WC - Nurse 1 - General Ulcer Measurement Start: 12/08/18 09:38 Freq: Status: Active Protocol: Activity Type Activity Date Activity User E-Sign Co-Sign Detail Recorded Client Recorded Date Recorded By Document 12/21/18 09:13 [facility] [id number] 12/21/18 09:28 [facility] 12/21/18 09:13 Wound Center Nurse 1 [Ulcer Assessment] #6 left 2nd toe dorsal -Combined with other wound No -Current Size (cm) - Length 0.5 -Current Size (cm) - Width 0.6 -Current Size (cm) - Depth 0.1 -Total Square Cm 0.30 -Photo Taken No -Epithelialization Small 1-33% -Tunneling No -Undermining/Tunneling No -Circular Undermining No -Exudate Amt Small -Exudate Type Serosanguineous -Wound Margin Distinct, Outline Attached -Granulation Amt Small (1-33%) -Granulation Quality [place] -Slough/Fibrin Yes -Necrosis Amt Large (67-100%) -Necrotic Tissue Type Adherent Slough -Texture (Martha-wound Skin Appearance) Scarring -Moisture (Martha-wound Skin Appearance Assessed ) -Color (Martha-wound Skin Appearance) Assessed -Temperature (Martha-wound Skin No Abnormality Appearance) (Pt Warm) -Tenderness on Palpation (Martha-wound No Skin Appearance) -Ulcer Cleansing Wound Cleanser -Foul Odor after Cleansing No -Anesthetic Used 4% Lidocaine Solution #1 RIGHT POSTERIOR CALF CLUSTER -Combined with other wound No -Current Size (cm) - Length 16.5 -Current Size (cm) - Width 10 -Current Size (cm) - Depth 0.1 -Total Square Cm 165.0 -Photo Taken No -Epithelialization None Present -Tunneling No -Undermining/Tunneling No -Circular Undermining No -Exudate Amt Large -Exudate Type Serous -Wound Margin Flat & Intact -Granulation Amt Medium (34-66%) -Granulation Quality Red -Slough/Fibrin Yes -Necrosis Amt Medium (34-66%) -Necrotic Tissue Type Adherent Slough -Texture (Martha-wound Skin Appearance) Scarring -Moisture (Martha-wound Skin Appearance Maceration ) Weeping -Color (Martha-wound Skin Appearance) Erythema -Temperature (Martha-wound Skin No Abnormality Appearance) (Pt Warm) -Tenderness on Palpation (Martha-wound No Skin Appearance) -Ulcer Cleansing Rinsed/ Irrigated with Saline -Foul Odor after Cleansing No -Anesthetic Used 4% Lidocaine Solution [Edema Assessment] -Lower Limb Edema Present Yes -Right Calf (cm) 69.6 -Right Ankle (cm) 30.4 -Left Calf (cm) 61.5 -Left Ankle (cm) 32 WC - Nurse 2 - General Ulcer CM Notes Start: 12/08/18 09:38 Freq: Status: Active Protocol: Activity Type Activity Date Activity User E-Sign Co-Sign Detail Recorded Client Recorded Date Recorded By Document 12/21/18 09:56 MW [id number] 12/21/18 10:02 MW 12/21/18 09:56 Wound Center Nurse 2 [Procedure/Treatment] #6 left 2nd toe dorsal -Time 09:58 -Correct Patient Yes -Correct Side, Site, Position Yes -Correct Procedure Yes -Procedure Performed Yes -Type of Procedure Debridement -Clinical Debridement Subcutaneous -Post Debridement Size (cm) - Length 0.4 -Post Debridement Size (cm) - Width 0.8 -Post Debridement Size (cm) - Depth 0.1 -Total Square Cm 0.32 -Wound/Ulcer Outcome Not Healed -Ulcer Cleansing Rinsed/ Irrigated with Saline -Foul Odor after Cleansing No -Bioengineered Tissue No -Bleeding Controlled with Pressure -Offloading No -Treatment Response Procedure Tolerated Well #1 RIGHT POSTERIOR CALF CLUSTER -Time 09:58 -Correct Patient Yes -Correct Side, Site, Position Yes -Correct Procedure Yes -Procedure Performed Yes -Type of Procedure Debridement -Clinical Debridement Subcutaneous -Post Debridement Size (cm) - Length 17.5 -Post Debridement Size (cm) - Width 9.0 -Post Debridement Size (cm) - Depth 0.1 -Total Square Cm 157.50 -Wound/Ulcer Outcome Not Healed -Ulcer Cleansing Rinsed/ Irrigated with Saline -Foul Odor after Cleansing No -Bioengineered Tissue No -Bleeding Controlled with Pressure -Offloading No -Treatment Response Procedure Tolerated Well [See Physician Procedure note for Specifics] Pain Scale: 0-10 Numeric [Pain] -Is Patient Pain Free? Yes Musculoskeletal: No Muscle Wasting Neurological: Cranial nerves II-XII grossly intact Psych/Mental Status: Normal Affect Debridement Note Post-Debridement Measurements/Treatment WC - Nurse 2 - General Ulcer CM Notes Start: 12/08/18 09:38 Freq: Status: Active Protocol: Activity Type Activity Date Activity User E-Sign Co-Sign Detail Recorded Client Recorded Date Recorded By Document 12/08/18 10:12 MW [id number] 12/08/18 10:19 MW Document 12/14/18 10:31 MW [id number] 12/14/18 10:38 MW Document 12/21/18 09:56 MW [id number] 12/21/18 10:02 MW 12/08/18 12/14/18 12/21/18 10:12 10:31 09:56 Wound Center Nurse 2 #6 left 2nd toe dorsal -Time 10:16 10:31 09:58 -Correct Patient Yes Yes Yes -Correct Side, Site, Position Yes Yes Yes -Correct Procedure Yes Yes Yes -Procedure Performed Yes Yes Yes -Type of Procedure Debridement Debridement Debridement -Clinical Debridement Subcutaneous Subcutaneous Subcutaneous -Post Debridement Size (cm) - Length 0.6 0.4 0.4 -Post Debridement Size (cm) - Width 0.7 0.9 0.8 -Post Debridement Size (cm) - Depth 0.1 0.1 0.1 -Total Square Cm 0.42 0.36 0.32 -Wound/Ulcer Outcome Not Healed Not Healed Not Healed -Ulcer Cleansing Rinsed/ Rinsed/ Rinsed/ Irrigated with Irrigated with Irrigated with Saline Saline Saline -Foul Odor after Cleansing No No No -Bioengineered Tissue No No No -Bleeding Controlled with Pressure Pressure Pressure -Offloading No No No -Treatment Response Procedure Procedure Procedure Tolerated Well Tolerated Well Tolerated Well #5 RIGHT FOURTH TOE POSTERIOR -Time 10:13 -Correct Patient Yes -Correct Side, Site, Position Yes -Correct Procedure Yes -Procedure Performed No -Post Debridement Size (cm) - Length 0 -Post Debridement Size (cm) - Width 0 -Post Debridement Size (cm) - Depth 0 -Total Square Cm 0 -Wound/Ulcer Outcome Healed- Epithelialized #4 RIGHT THIRD TOE POSTERIOR -Time 10:15 -Correct Patient Yes -Correct Side, Site, Position Yes -Correct Procedure Yes -Procedure Performed No -Wound/Ulcer Outcome Healed- Epithelialized #3 LEFT POSTERIOR LOWER LEG -Time 10:13 -Correct Patient Yes -Correct Side, Site, Position Yes -Correct Procedure Yes -Procedure Performed No -Wound/Ulcer Outcome Healed- Epithelialized #1 RIGHT POSTERIOR CALF CLUSTER -Time 10:14 10:35 09:58 -Correct Patient Yes Yes Yes -Correct Side, Site, Position Yes Yes Yes -Correct Procedure Yes Yes Yes -Procedure Performed Yes Yes Yes -Type of Procedure Debridement Debridement Debridement -Clinical Debridement Subcutaneous Subcutaneous Subcutaneous -Post Debridement Size (cm) - Length 16.5 13.0 17.5 -Post Debridement Size (cm) - Width 15.0 8.0 9.0 -Post Debridement Size (cm) - Depth 0.1 0.1 0.1 -Total Square Cm 247.50 104.00 157.50 -Wound/Ulcer Outcome Not Healed Not Healed Not Healed -Ulcer Cleansing Rinsed/ Rinsed/ Rinsed/ Irrigated with Irrigated with Irrigated with Saline Saline Saline -Foul Odor after Cleansing No No No -Bioengineered Tissue No No No -Bleeding Controlled with Pressure Pressure Pressure -Offloading No No No -Treatment Response Procedure Procedure Procedure Tolerated Well Tolerated Well Tolerated Well Pain Scale: 0-10 Numeric Is Patient Pain Free? Yes Yes Yes Wound debrided: Left second toe Wound Grade/Stage: Stage II Type of Debridement: Excisional debridement Anesthesia Used: 4% Lidocaine Solution Depth: Down to and including healthy tissue, in the subcutaneous layer Percentage of wound debrided: 100 Instrument Used: 3mm curette Tissue Removed: Slough and devitalized tissue Severity: Fat Layer Exposed Amount of bleeding with debridement: Mild Bleeding Controlled with: Pressure Patient tolerated procedure well - Additional Wound Wound debrided: Right lower extremity Wound Grade/Stage: Stage II Type of Debridement: Excisional debridement Anesthesia Used: 4% Lidocaine Solution Depth: Down to and including healthy tissue, in the subcutaneous layer Percentage of wound debrided: 100 Instrument Used: 5mm curette Tissue Removed: Slough and devitalized tissue Severity: Fat Layer Exposed Amount of bleeding with debridement: Mild Bleeding Controlled with: Pressure Patient tolerated procedure: Patient tolerated procedure well Assessment/Plan Active Problems Ulcer of right lower extremity with fat layer exposed (Acute) Bilateral lower extremity edema (Chronic) Toe ulcer, right (Acute) Third and fourth. Open wound of second toe of left foot (Acute) Traumatic, Penetrating. Assessment: Same as above. Plan: Debridement done as documented above. Procedure was well-tolerated. Switch to Promogran to open surfaces with Adaptic over top. Worsening edema. Patient states that she believes she will better tolerate the 3M wraps now ?. 3M wrap for edema management. Change in Wednesday by home health. Elevate lower extremity when seated and in bed. Increased protein intake recommended. Her questions were answered and she was advised to call with any further questions or concerns. Follow-up in 1 week. This note was generated with Riboxxation software. It may contain incorrect words, spelling, and punctuation that were not noted in checking the note before signing.
[2018-12-28 09:20] VITALS: BP 128/79; PULSE 70; RESP 22; TEMP 35; BMI 73.8
--- NOTE | 2018-12-28 09:56 | PCM.WC.PN ---
(1) Toe ulcer, right Status: Acute Current Visit: Yes Code(s): L97.519 - Non-pressure chronic ulcer of other part of right foot with unspecified severity Comment: Third and fourth. (2) Ulcer of right lower extremity with fat layer exposed Status: Acute Current Visit: Yes Code(s): L97.912 - Non-pressure chronic ulcer of unspecified part of right lower leg with fat layer exposed (3) Bilateral lower extremity edema Status: Chronic Current Visit: Yes Code(s): R60.0 - Localized edema (4) Open wound of second toe of left foot Status: Acute Current Visit: Yes Code(s): S91.105A - Unspecified open wound of left lesser toe(s) without damage to nail, initial encounter Comment: Traumatic, Penetrating. (5) Ulcer of left lower extremity with fat layer exposed Status: Acute Current Visit: No Code(s): L97.922 - Non-pressure chronic ulcer of unspecified part of left lower leg with fat layer exposed Type of Wound Chief Complaint: Right lower extremity ulcers. History of Wound: Ms. Molina is a 48-year-old who was referred to the wound center by her primary care physician due to right lower extremity ulcers. Per patient, started out with redness pain and swelling for which she was managed for cellulitis. Subsequently developed ulcerations in her calf and enciso. She feels well other at this time and denies chills, fever, nausea, vomitting or change in her bowel habit. Progress of Wound: New left lower extremity ulcer and increased swelling/blistering of both lower extremitoes. Per home health, patient is non compliant with dressing, wraps and keeping her extremitoes up. She denies any new concerns at this time. - Physical Exam Vital Signs Temp Pulse Resp BP 95 F L 70 22 H 128/79 H 12/28/18 09:20 12/28/18 09:20 12/28/18 09:20 12/28/18 09:20 General: Alert, Oriented x3, Cooperative, No apparent distress HEENT: Atraumatic, Normocephalic Oral: Moist Mucosa Neck: Supple Lungs: Normal air movement Abdomen: Obese Extremities: No cyanosis, Edema Skin: Ulcer/ Wound Wound Measurements and Assessment WC - Nurse 1 - General Ulcer Measurement Start: 12/08/18 09:38 Freq: Status: Active Protocol: Activity Type Activity Date Activity User E-Sign Co-Sign Detail Recorded Client Recorded Date Recorded By Document 12/28/18 09:20 [facility] [id number] 12/28/18 09:33 [facility] 12/28/18 09:20 Wound Center Nurse 1 [Ulcer Assessment] #7- LT ENCISO -Combined with other wound No -Current Size (cm) - Length 2.2 -Current Size (cm) - Width 2.4 -Current Size (cm) - Depth 0.1 -Total Square Cm 5.28 -Date of Last Picture (Recall this 12/28/18 field) -Photo Taken Yes -Epithelialization None Present -Tunneling No -Undermining/Tunneling No -Circular Undermining No -Classification - Thickness Partial Thickness -Exudate Amt Small -Exudate Type Serous -Wound Margin Flat & Intact -Granulation Amt Large (67-100%) -Granulation Quality Red -Slough/Fibrin No -Necrosis Amt None Present (0 %) -Structure Exposed None/Limited to Skin Breakdown -Texture (Martha-wound Skin Appearance) Assessed -Moisture (Martha-wound Skin Appearance Assessed ) Weeping -Color (Martha-wound Skin Appearance) Assessed Erythema -Temperature (Martha-wound Skin No Abnormality Appearance) (Pt Warm) -Tenderness on Palpation (Martha-wound No Skin Appearance) -Ulcer Cleansing Wound Cleanser -Foul Odor after Cleansing No -Anesthetic Used 4% Lidocaine Solution #6 left 2nd toe dorsal -Combined with other wound No -Current Size (cm) - Length 0.4 -Current Size (cm) - Width 0.5 -Current Size (cm) - Depth 0.2 -Total Square Cm 0.20 -Photo Taken No -Epithelialization Small 1-33% -Tunneling No -Undermining/Tunneling No -Circular Undermining No -Exudate Amt Small -Exudate Type Serous -Wound Margin Flat & Intact -Granulation Amt Large (67-100%) -Granulation Quality [place] -Slough/Fibrin Yes -Necrosis Amt Small (1-33%) -Necrotic Tissue Type Adherent Slough -Texture (Martha-wound Skin Appearance) Scarring -Moisture (Martha-wound Skin Appearance Maceration ) -Color (Martha-wound Skin Appearance) Palor -Temperature (Martha-wound Skin No Abnormality Appearance) (Pt Warm) -Tenderness on Palpation (Martha-wound No Skin Appearance) -Ulcer Cleansing Wound Cleanser -Foul Odor after Cleansing No -Anesthetic Used 4% Lidocaine Solution #1 RIGHT POSTERIOR CALF CLUSTER -Combined with other wound No -Current Size (cm) - Length 14 -Current Size (cm) - Width 8 -Current Size (cm) - Depth 0.1 -Total Square Cm 112 -Photo Taken No -Epithelialization Small 1-33% -Tunneling No -Undermining/Tunneling No -Circular Undermining No -Exudate Amt Large -Exudate Type Serous -Wound Margin Flat & Intact -Granulation Amt Medium (34-66%) -Granulation Quality Red -Slough/Fibrin Yes -Necrosis Amt Medium (34-66%) -Necrotic Tissue Type Adherent Slough -Texture (Martha-wound Skin Appearance) Assessed Excoriation Scarring Rash -Moisture (Martha-wound Skin Appearance Assessed ) Weeping -Color (Martha-wound Skin Appearance) Assessed Erythema -Temperature (Martha-wound Skin No Abnormality Appearance) (Pt Warm) -Tenderness on Palpation (Martha-wound No Skin Appearance) -Ulcer Cleansing Wound Cleanser -Foul Odor after Cleansing No -Anesthetic Used 4% Lidocaine Solution [Edema Assessment] -Lower Limb Edema Present Yes -Right Calf (cm) 60 -Right Ankle (cm) 32.1 -Left Calf (cm) 67.2 -Left Ankle (cm) 35 WC - Nurse 2 - General Ulcer CM Notes Start: 12/08/18 09:38 Freq: Status: Active Protocol: Activity Type Activity Date Activity User E-Sign Co-Sign Detail Recorded Client Recorded Date Recorded By Document 12/28/18 09:47 MW [id number] 12/28/18 09:55 MW 12/28/18 09:47 Wound Center Nurse 2 [Procedure/Treatment] #7- LT ENCISO -Time 09:50 -Correct Patient Yes -Correct Side, Site, Position Yes -Correct Procedure Yes -Procedure Performed Yes -Type of Procedure Debridement -Clinical Debridement Subcutaneous -Post Debridement Size (cm) - Length 2.5 -Post Debridement Size (cm) - Width 3.0 -Post Debridement Size (cm) - Depth 0.1 -Total Square Cm 7.50 -Wound/Ulcer Outcome Not Healed -Ulcer Cleansing Rinsed/ Irrigated with Saline -Foul Odor after Cleansing No -Bioengineered Tissue No -Bleeding Controlled with Pressure -Offloading No -Treatment Response Procedure Tolerated Well #6 left 2nd toe dorsal -Time 09:51 -Correct Patient Yes -Correct Side, Site, Position Yes -Correct Procedure Yes -Procedure Performed Yes -Type of Procedure Debridement -Clinical Debridement Subcutaneous -Post Debridement Size (cm) - Length 0.3 -Post Debridement Size (cm) - Width 0.5 -Post Debridement Size (cm) - Depth 0.1 -Total Square Cm 0.15 -Wound/Ulcer Outcome Not Healed -Ulcer Cleansing Rinsed/ Irrigated with Saline -Foul Odor after Cleansing No -Bioengineered Tissue No -Bleeding Controlled with Pressure -Offloading No -Treatment Response Procedure Tolerated Well #1 RIGHT POSTERIOR CALF CLUSTER -Time 09:52 -Correct Patient Yes -Correct Side, Site, Position Yes -Correct Procedure Yes -Procedure Performed Yes -Type of Procedure Debridement -Clinical Debridement Subcutaneous -Post Debridement Size (cm) - Length 15.0 -Post Debridement Size (cm) - Width 9.0 -Post Debridement Size (cm) - Depth 0.1 -Total Square Cm 135.00 -Wound/Ulcer Outcome Not Healed -Ulcer Cleansing Rinsed/ Irrigated with Saline -Foul Odor after Cleansing No -Bioengineered Tissue No -Bleeding Controlled with Pressure -Offloading No -Treatment Response Procedure Tolerated Well [See Physician Procedure note for Specifics] Pain Scale: 0-10 Numeric [Pain] -Is Patient Pain Free? Yes Musculoskeletal: No Muscle Wasting Neurological: Cranial nerves II-XII grossly intact Psych/Mental Status: Normal Affect Debridement Note Post-Debridement Measurements/Treatment WC - Nurse 2 - General Ulcer CM Notes Start: 12/08/18 09:38 Freq: Status: Active Protocol: Activity Type Activity Date Activity User E-Sign Co-Sign Detail Recorded Client Recorded Date Recorded By Document 12/08/18 10:12 MW [id number] 12/08/18 10:19 MW Document 12/14/18 10:31 MW [id number] 12/14/18 10:38 MW Document 12/21/18 09:56 MW [id number] 12/21/18 10:02 MW Document 12/28/18 09:47 MW [id number] 12/28/18 09:55 MW 12/08/18 12/14/18 12/21/18 10:12 10:31 09:56 Wound Center Nurse 2 #7- LT ENCISO -Time -Correct Patient -Correct Side, Site, Position -Correct Procedure -Procedure Performed -Type of Procedure -Clinical Debridement -Post Debridement Size (cm) - Length -Post Debridement Size (cm) - Width -Post Debridement Size (cm) - Depth -Total Square Cm -Wound/Ulcer Outcome -Ulcer Cleansing -Foul Odor after Cleansing -Bioengineered Tissue -Bleeding Controlled with -Offloading -Treatment Response #6 left 2nd toe dorsal -Time 10:16 10:31 09:58 -Correct Patient Yes Yes Yes -Correct Side, Site, Position Yes Yes Yes -Correct Procedure Yes Yes Yes -Procedure Performed Yes Yes Yes -Type of Procedure Debridement Debridement Debridement -Clinical Debridement Subcutaneous Subcutaneous Subcutaneous -Post Debridement Size (cm) - Length 0.6 0.4 0.4 -Post Debridement Size (cm) - Width 0.7 0.9 0.8 -Post Debridement Size (cm) - Depth 0.1 0.1 0.1 -Total Square Cm 0.42 0.36 0.32 -Wound/Ulcer Outcome Not Healed Not Healed Not Healed -Ulcer Cleansing Rinsed/ Rinsed/ Rinsed/ Irrigated with Irrigated with Irrigated with Saline Saline Saline -Foul Odor after Cleansing No No No -Bioengineered Tissue No No No -Bleeding Controlled with Pressure Pressure Pressure -Offloading No No No -Treatment Response Procedure Procedure Procedure Tolerated Well Tolerated Well Tolerated Well #5 RIGHT FOURTH TOE POSTERIOR -Time 10:13 -Correct Patient Yes -Correct Side, Site, Position Yes -Correct Procedure Yes -Procedure Performed No -Post Debridement Size (cm) - Length 0 -Post Debridement Size (cm) - Width 0 -Post Debridement Size (cm) - Depth 0 -Total Square Cm 0 -Wound/Ulcer Outcome Healed- Epithelialized #4 RIGHT THIRD TOE POSTERIOR -Time 10:15 -Correct Patient Yes -Correct Side, Site, Position Yes -Correct Procedure Yes -Procedure Performed No -Wound/Ulcer Outcome Healed- Epithelialized #3 LEFT POSTERIOR LOWER LEG -Time 10:13 -Correct Patient Yes -Correct Side, Site, Position Yes -Correct Procedure Yes -Procedure Performed No -Wound/Ulcer Outcome Healed- Epithelialized #1 RIGHT POSTERIOR CALF CLUSTER -Time 10:14 10:35 09:58 -Correct Patient Yes Yes Yes -Correct Side, Site, Position Yes Yes Yes -Correct Procedure Yes Yes Yes -Procedure Performed Yes Yes Yes -Type of Procedure Debridement Debridement Debridement -Clinical Debridement Subcutaneous Subcutaneous Subcutaneous -Post Debridement Size (cm) - Length 16.5 13.0 17.5 -Post Debridement Size (cm) - Width 15.0 8.0 9.0 -Post Debridement Size (cm) - Depth 0.1 0.1 0.1 -Total Square Cm 247.50 104.00 157.50 -Wound/Ulcer Outcome Not Healed Not Healed Not Healed -Ulcer Cleansing Rinsed/ Rinsed/ Rinsed/ Irrigated with Irrigated with Irrigated with Saline Saline Saline -Foul Odor after Cleansing No No No -Bioengineered Tissue No No No -Bleeding Controlled with Pressure Pressure Pressure -Offloading No No No -Treatment Response Procedure Procedure Procedure Tolerated Well Tolerated Well Tolerated Well Pain Scale: 0-10 Numeric Is Patient Pain Free? Yes Yes Yes 12/28/18 09:47 Wound Center Nurse 2 #7- LT ENCISO -Time 09:50 -Correct Patient Yes -Correct Side, Site, Position Yes -Correct Procedure Yes -Procedure Performed Yes -Type of Procedure Debridement -Clinical Debridement Subcutaneous -Post Debridement Size (cm) - Length 2.5 -Post Debridement Size (cm) - Width 3.0 -Post Debridement Size (cm) - Depth 0.1 -Total Square Cm 7.50 -Wound/Ulcer Outcome Not Healed -Ulcer Cleansing Rinsed/ Irrigated with Saline -Foul Odor after Cleansing No -Bioengineered Tissue No -Bleeding Controlled with Pressure -Offloading No -Treatment Response Procedure Tolerated Well #6 left 2nd toe dorsal -Time 09:51 -Correct Patient Yes -Correct Side, Site, Position Yes -Correct Procedure Yes -Procedure Performed Yes -Type of Procedure Debridement -Clinical Debridement Subcutaneous -Post Debridement Size (cm) - Length 0.3 -Post Debridement Size (cm) - Width 0.5 -Post Debridement Size (cm) - Depth 0.1 -Total Square Cm 0.15 -Wound/Ulcer Outcome Not Healed -Ulcer Cleansing Rinsed/ Irrigated with Saline -Foul Odor after Cleansing No -Bioengineered Tissue No -Bleeding Controlled with Pressure -Offloading No -Treatment Response Procedure Tolerated Well #5 RIGHT FOURTH TOE POSTERIOR -Time -Correct Patient -Correct Side, Site, Position -Correct Procedure -Procedure Performed -Post Debridement Size (cm) - Length -Post Debridement Size (cm) - Width -Post Debridement Size (cm) - Depth -Total Square Cm -Wound/Ulcer Outcome #4 RIGHT THIRD TOE POSTERIOR -Time -Correct Patient -Correct Side, Site, Position -Correct Procedure -Procedure Performed -Wound/Ulcer Outcome #3 LEFT POSTERIOR LOWER LEG -Time -Correct Patient -Correct Side, Site, Position -Correct Procedure -Procedure Performed -Wound/Ulcer Outcome #1 RIGHT POSTERIOR CALF CLUSTER -Time 09:52 -Correct Patient Yes -Correct Side, Site, Position Yes -Correct Procedure Yes -Procedure Performed Yes -Type of Procedure Debridement -Clinical Debridement Subcutaneous -Post Debridement Size (cm) - Length 15.0 -Post Debridement Size (cm) - Width 9.0 -Post Debridement Size (cm) - Depth 0.1 -Total Square Cm 135.00 -Wound/Ulcer Outcome Not Healed -Ulcer Cleansing Rinsed/ Irrigated with Saline -Foul Odor after Cleansing No -Bioengineered Tissue No -Bleeding Controlled with Pressure -Offloading No -Treatment Response Procedure Tolerated Well Pain Scale: 0-10 Numeric Is Patient Pain Free? Yes Wound debrided: Left enciso cluster Wound Grade/Stage: Stage II Type of Debridement: Excisional debridement Anesthesia Used: 4% Lidocaine Solution Depth: Down to and including healthy tissue, in the subcutaneous layer Percentage of wound debrided: 100 Instrument Used: 3mm curette Tissue Removed: Slough and devitalized tissue Severity: Fat Layer Exposed Amount of bleeding with debridement: Mild Bleeding Controlled with: Pressure Patient tolerated procedure well - Additional Wound Wound debrided: Left second toe Wound Grade/Stage: Stage II Type of Debridement: Excisional debridement Anesthesia Used: 4% Lidocaine Solution Depth: Down to and including healthy tissue, in the subcutaneous layer Percentage of wound debrided: 100 Instrument Used: 3mm curette Tissue Removed: slough and devitalized tissue Severity: Fat Layer Exposed Amount of bleeding with debridement: Mild Bleeding Controlled with: Pressure Patient tolerated procedure: Patient tolerated procedure well - Additional Wound Wound debrided: Right lower extremity posterior cluster Wound Grade/Stage: Stage II Type of Debridement: Excisional debridement Anesthesia Used: 4% Lidocaine Solution Depth: Down to and including healthy tissue, in the subcutaneous layer Percentage of wound debrided: 100 Instrument Used: 5mm curette Tissue Removed: Slough and devitalized tissue Severity: Fat Layer Exposed Amount of bleeding with debridement: Mild Bleeding Controlled with: Pressure Patient tolerated procedure: Patient tolerated procedure well Assessment/Plan Active Problems Ulcer of right lower extremity with fat layer exposed (Acute) Bilateral lower extremity edema (Chronic) Toe ulcer, right (Acute) Third and fourth. Open wound of second toe of left foot (Acute) Traumatic, Penetrating. Assessment: Same as above. Plan: Debridement done as documented above. Procedure was well-tolerated. Continue Promogran to open surfaces with Adaptic over top. Worsening edema. Tried 3M last week however patient took it off again beacuse she did not tolerate it. Went back to [place] [facility] but she has not been complaint. Compliance with dressings very strongly recommended. Also advised that she elevate lower extremity when seated and in bed. Increased protein intake recommended. She expressed understanding. Her questions were answered and she was advised to call with any further questions or concerns. Follow-up in 1 week. This note was generated with [employer] dictation software. It may contain incorrect words, spelling, and punctuation that were not noted in checking the note before signing.
--- NOTE | 2018-12-28 10:00 | PN.PCM_ITS ---
(1) Toe ulcer, right Status: Acute Current Visit: Yes Code(s): L97.519 - Non-pressure chronic u lcer of other part of right foot with unspecified severity Comment: Third and fourth. (2) Ulcer of right lower extremity with fat layer exposed Status: Acute Current Visit: Yes Code(s): L97.912 - Non-pressure chronic ulcer of unspecified part of right lower leg with fat layer exposed (3) Bilateral lower extremity edema Status: Chronic Current Visit: Yes Code(s): R60.0 - Localized edema (4) Open wound of second toe of left foot Status: Acute Current Visit: Yes Code(s): S91.105A - Unspecified open wound of left lesser toe(s) without damage to nail, initial encounter Comment: Traumatic, Penetrating. (5) Ulcer of left lower extremity with fat layer exposed Status: Acute Current Visit: No Code(s): L97.922 - Non-pressure chronic ulcer of unspecified part of left lower leg with fat layer exposed Type of Wound Chief Complaint: Right lower extremity ulcers. History of Wound: Ms. Molina is a 48-year-old who was referred to the wound center by her primary care physician due to right lower extremity ulcers. Per patient, started out with redness pain and swelling for which she was managed for cellulitis. Subsequently developed ulcerations in her calf and enciso. She feels well other at this time and denies chills, fever, nausea, vomitting or change in her bowel habit. Progress of Wound: New left lower extremity ulcer and increased swelling/blistering of both lower extremitoes. Per home health, patient is non compliant with dressing, wraps and keeping her extremitoes up. She denies any new concerns at this time. - Physical Exam Vital Signs Temp Pulse Resp BP 95 F L 70 22 H 128/79 H 12/28/18 09:20 12/28/18 09:20 12/28/18 09:20 12/28/18 09:20 General: Alert, Oriented x3, Cooperative, No apparent distress HEENT: Atraumatic, Normocephalic Oral: Moist Mucosa Neck: Supple Lungs: Normal air movement Abdomen: Obese Extremities: No cyanosis, Edema Skin: Ulcer/ Wound Wound Measurements and Assessment WC - Nurse 1 - General Ulcer Measurement Start: 12/08/18 09:38 Freq: Status: Active Protocol: Activity Type Activity Date Activity User E-Sign Co-Sign Detail Recorded Client Recorded Date Recorded By Document 12/28/18 09:20 [facility] [id number] 12/28/18 09:33 [facility] 12/28/18 09:20 Wound Center Nurse 1 [Ulcer Assessment] #7- LT ENCISO -Combined with other wound No -Current Size (cm) - Length 2.2 -Current Size (cm) - Width 2.4 -Current Size (cm) - Depth 0.1 -Total Square Cm 5.28 -Date of Last Picture (Recall this 12/28/18 field) -Photo Taken Yes -Epithelialization None Present -Tunneling No -Undermining/Tunneling No -Circular Undermining No -Classification - Thickness Partial Thickness -Exudate Amt Small -Exudate Type Serous -Wound Margin Flat & Intact -Granulation Amt Large (67-100%) -Granulation Quality Red -Slough/Fibrin No -Necrosis Amt None Present (0 %) -Structure Exposed None/Limited to Skin Breakdown -Texture (Martha-wound Skin Appearance) Assessed -Moisture (Martha-wound Skin Appearance Assessed ) Weeping -Color (Martha-wound Skin Appearance) Assessed Erythema -Temperature (Martha-wound Skin No Abnormality Appearance) (Pt Warm) -Tenderness on Palpation (Martha-wound No Skin Appearance) -Ulcer Cleansing Wound Cleanser -Foul Odor after Cleansing No -Anesthetic Used 4% Lidocaine Solution #6 left 2nd toe dorsal -Combined with other wound No -Current Size (cm) - Length 0.4 -Current Size (cm) - Width 0.5 -Current Size (cm) - Depth 0.2 -Total Square Cm 0.20 -Photo Taken No -Epithelialization Small 1-33% -Tunneling No -Undermining/Tunneling No -Circular Undermining No -Exudate Amt Small -Exudate Type Serous -Wound Margin Flat & Intact -Granulation Amt Large (67-100%) -Granulation Quality [place] -Slough/Fibrin Yes -Necrosis Amt Small (1-33%) -Necrotic Tissue Type Adherent Slough -Texture (Martha-wound Skin Appearance) Scarring -Moisture (Martha-wound Skin Appearance Maceration ) -Color (Martha-wound Skin Appearance) Palor -Temperature (Martha-wound Skin No Abnormality Appearance) (Pt Warm) -Tenderness on Palpation (Martha-wound No Skin Appearance) -Ulcer Cleansing Wound Cleanser -Foul Odor after Cleansing No -Anesthetic Used 4% Lidocaine Solution #1 RIGHT POSTERIOR CALF CLUSTER -Combined with other wound No -Current Size (cm) - Length 14 -Current Size (cm) - Width 8 -Current Size (cm) - Depth 0.1 -Total Square Cm 112 -Photo Taken No -Epithelialization Small 1-33% -Tunneling No -Undermining/Tunneling No -Circular Undermining No -Exudate Amt Large -Exudate Type Serous -Wound Margin Flat & Intact -Granulation Amt Medium (34-66%) -Granulation Quality Red -Slough/Fibrin Yes -Necrosis Amt Medium (34-66%) -Necrotic Tissue Type Adherent Slough -Texture (Martha-wound Skin Appearance) Assessed Excoriation Scarring Rash -Moisture (Martha-wound Skin Appearance Assessed ) Weeping -Color (Martha-wound Skin Appearance) Assessed Erythema -Temperature (Martha-wound Skin No Abnormality Appearance) (Pt Warm) -Tenderness on Palpation (Martha-wound No Skin Appearance) -Ulcer Cleansing Wound Cleanser -Foul Odor after Cleansing No -Anesthetic Used 4% Lidocaine Solution [Edema Assessment] -Lower Limb Edema Present Yes -Right Calf (cm) 60 -Right Ankle (cm) 32.1 -Left Calf (cm) 67.2 -Left Ankle (cm) 35 WC - Nurse 2 - General Ulcer CM Notes Start: 12/08/18 09:38 Freq: Status: Active Protocol: Activity Type Activity Date Activity User E-Sign Co-Sign Detail Recorded Client Recorded Date Recorded By Document 12/28/18 09:47 MW [id number] 12/28/18 09:55 MW 12/28/18 09:47 Wound Center Nurse 2 [Procedure/Treatment] #7- LT ENCISO -Time 09:50 -Correct Patient Yes -Correct Side, Site, Position Yes -Correct Procedure Yes -Procedure Performed Yes -Type of Procedure Debridement -Clinical Debridement Subcutaneous -Post Debridement Size (cm) - Length 2.5 -Post Debridement Size (cm) - Width 3.0 -Post Debridement Size (cm) - Depth 0.1 -Total Square Cm 7.50 -Wound/Ulcer Outcome Not Healed -Ulcer Cleansing Rinsed/ Irrigated with Saline -Foul Odor after Cleansing No -Bioengineered Tissue No -Bleeding Controlled with Pressure -Offloading No -Treatment Response Procedure Tolerated Well #6 left 2nd toe dorsal -Time 09:51 -Correct Patient Yes -Correct Side, Site, Position Yes -Correct Procedure Yes -Procedure Performed Yes -Type of Procedure Debridement -Clinical Debridement Subcutaneous -Post Debridement Size (cm) - Length 0.3 -Post Debridement Size (cm) - Width 0.5 -Post Debridement Size (cm) - Depth 0.1 -Total Square Cm 0.15 -Wound/Ulcer Outcome Not Healed -Ulcer Cleansing Rinsed/ Irrigated with Saline -Foul Odor after Cleansing No -Bioengineered Tissue No -Bleeding Controlled with Pressure -Offloading No -Treatment Response Procedure Tolerated Well #1 RIGHT POSTERIOR CALF CLUSTER -Time 09:52 -Correct Patient Yes -Correct Side, Site, Position Yes -Correct Procedure Yes -Procedure Performed Yes -Type of Procedure Debridement -Clinical Debridement Subcutaneous -Post Debridement Size (cm) - Length 15.0 -Post Debridement Size (cm) - Width 9.0 -Post Debridement Size (cm) - Depth 0.1 -Total Square Cm 135.00 -Wound/Ulcer Outcome Not Healed -Ulcer Cleansing Rinsed/ Irrigated with Saline -Foul Odor after Cleansing No -Bioengineered Tissue No -Bleeding Controlled with Pressure -Offloading No -Treatment Response Procedure Tolerated Well [See Physician Procedure note for Specifics] Pain Scale: 0-10 Numeric [Pain] -Is Patient Pain Free? Yes Musculoskeletal: No Muscle Wasting Neurological: Cranial nerves II-XII grossly intact Psych/Mental Status: Normal Affect Debridement Note Post-Debridement Measurements/Treatment WC - Nurse 2 - General Ulcer CM Notes Start: 12/08/18 09:38 Freq: Status: Active Protocol: Activity Type Activity Date Activity User E-Sign Co-Sign Detail Recorded Client Recorded Date Recorded By Document 12/08/18 10:12 MW [id number] 12/08/18 10:19 MW Document 12/14/18 10:31 MW [id number] 12/14/18 10:38 MW Document 12/21/18 09:56 MW [id number] 12/21/18 10:02 MW Document 12/28/18 09:47 MW [id number] 12/28/18 09:55 MW 12/08/18 12/14/18 12/21/18 10:12 10:31 09:56 Wound Center Nurse 2 #7- LT ENCISO -Time -Correct Patient -Correct Side, Site, Position -Correct Procedure -Procedure Performed -Type of Procedure -Clinical Debridement -Post Debridement Size (cm) - Length -Post Debridement Size (cm) - Width -Post Debridement Size (cm) - Depth -Total Square Cm -Wound/Ulcer Outcome -Ulcer Cleansing -Foul Odor after Cleansing -Bioengineered Tissue -Bleeding Controlled with -Offloading -Treatment Response #6 left 2nd toe dorsal -Time 10:16 10:31 09:58 -Correct Patient Yes Yes Yes -Correct Side, Site, Position Yes Yes Yes -Correct Procedure Yes Yes Yes -Procedure Performed Yes Yes Yes -Type of Procedure Debridement Debridement Debridement -Clinical Debridement Subcutaneous Subcutaneous Subcutaneous -Post Debridement Size (cm) - Length 0.6 0.4 0.4 -Post Debridement Size (cm) - Width 0.7 0.9 0.8 -Post Debridement Size (cm) - Depth 0.1 0.1 0.1 -Total Square Cm 0.42 0.36 0.32 -Wound/Ulcer Outcome Not Healed Not Healed Not Healed -Ulcer Cleansing Rinsed/ Rinsed/ Rinsed/ Irrigated with Irrigated with Irrigated with Saline Saline Saline -Foul Odor after Cleansing No No No -Bioengineered Tissue No No No -Bleeding Controlled with Pressure Pressure Pressure -Offloading No No No -Treatment Response Procedure Procedure Procedure Tolerated Well Tolerated Well Tolerated Well #5 RIGHT FOURTH TOE POSTERIOR -Time 10:13 -Correct Patient Yes -Correct Side, Site, Position Yes -Correct Procedure Yes -Procedure Performed No -Post Debridement Size (cm) - Length 0 -Post Debridement Size (cm) - Width 0 -Post Debridement Size (cm) - Depth 0 -Total Square Cm 0 -Wound/Ulcer Outcome Healed- Epithelialized #4 RIGHT THIRD TOE POSTERIOR -Time 10:15 -Correct Patient Yes -Correct Side, Site, Position Yes -Correct Procedure Yes -Procedure Performed No -Wound/Ulcer Outcome Healed- Epithelialized #3 LEFT POSTERIOR LOWER LEG -Time 10:13 -Correct Patient Yes -Correct Side, Site, Position Yes -Correct Procedure Yes -Procedure Performed No -Wound/Ulcer Outcome Healed- Epithelialized #1 RIGHT POSTERIOR CALF CLUSTER -Time 10:14 10:35 09:58 -Correct Patient Yes Yes Yes -Correct Side, Site, Position Yes Yes Yes -Correct Procedure Yes Yes Yes -Procedure Performed Yes Yes Yes -Type of Procedure Debridement Debridement Debridement -Clinical Debridement Subcutaneous Subcutaneous Subcutaneous -Post Debridement Size (cm) - Length 16.5 13.0 17.5 -Post Debridement Size (cm) - Width 15.0 8.0 9.0 -Post Debridement Size (cm) - Depth 0.1 0.1 0.1 -Total Square Cm 247.50 104.00 157.50 -Wound/Ulcer Outcome Not Healed Not Healed Not Healed -Ulcer Cleansing Rinsed/ Rinsed/ Rinsed/ Irrigated with Irrigated with Irrigated with Saline Saline Saline -Foul Odor after Cleansing No No No -Bioengineered Tissue No No No -Bleeding Controlled with Pressure Pressure Pressure -Offloading No No No -Treatment Response Procedure Procedure Procedure Tolerated Well Tolerated Well Tolerated Well Pain Scale: 0-10 Numeric Is Patient Pain Free? Yes Yes Yes 12/28/18 09:47 Wound Center Nurse 2 #7- LT ENCISO -Time 09:50 -Correct Patient Yes -Correct Side, Site, Position Yes -Correct Procedure Yes -Procedure Performed Yes -Type of Procedure Debridement -Clinical Debridement Subcutaneous -Post Debridement Size (cm) - Length 2.5 -Post Debridement Size (cm) - Width 3.0 -Post Debridement Size (cm) - Depth 0.1 -Total Square Cm 7.50 -Wound/Ulcer Outcome Not Healed -Ulcer Cleansing Rinsed/ Irrigated with Saline -Foul Odor after Cleansing No -Bioengineered Tissue No -Bleeding Controlled with Pressure -Offloading No -Treatment Response Procedure Tolerated Well #6 left 2nd toe dorsal -Time 09:51 -Correct Patient Yes -Correct Side, Site, Position Yes -Correct Procedure Yes -Procedure Performed Yes -Type of Procedure Debridement -Clinical Debridement Subcutaneous -Post Debridement Size (cm) - Length 0.3 -Post Debridement Size (cm) - Width 0.5 -Post Debridement Size (cm) - Depth 0.1 -Total Square Cm 0.15 -Wound/Ulcer Outcome Not Healed -Ulcer Cleansing Rinsed/ Irrigated with Saline -Foul Odor after Cleansing No -Bioengineered Tissue No -Bleeding Controlled with Pressure -Offloading No -Treatment Response Procedure Tolerated Well #5 RIGHT FOURTH TOE POSTERIOR -Time -Correct Patient -Correct Side, Site, Position -Correct Procedure -Procedure Performed -Post Debridement Size (cm) - Length -Post Debridement Size (cm) - Width -Post Debridement Size (cm) - Depth -Total Square Cm -Wound/Ulcer Outcome #4 RIGHT THIRD TOE POSTERIOR -Time -Correct Patient -Correct Side, Site, Position -Correct Procedure -Procedure Performed -Wound/Ulcer Outcome #3 LEFT POSTERIOR LOWER LEG -Time -Correct Patient -Correct Side, Site, Position -Correct Procedure -Procedure Performed -Wound/Ulcer Outcome #1 RIGHT POSTERIOR CALF CLUSTER -Time 09:52 -Correct Patient Yes -Correct Side, Site, Position Yes -Correct Procedure Yes -Procedure Performed Yes -Type of Procedure Debridement -Clinical Debridement Subcutaneous -Post Debridement Size (cm) - Length 15.0 -Post Debridement Size (cm) - Width 9.0 -Post Debridement Size (cm) - Depth 0.1 -Total Square Cm 135.00 -Wound/Ulcer Outcome Not Healed -Ulcer Cleansing Rinsed/ Irrigated with Saline -Foul Odor after Cleansing No -Bioengineered Tissue No -Bleeding Controlled with Pressure -Offloading No -Treatment Response Procedure Tolerated Well Pain Scale: 0-10 Numeric Is Patient Pain Free? Yes Wound debrided: Left enciso cluster Wound Grade/Stage: Stage II Type of Debridement: Excisional debridement Anesthesia Used: 4% Lidocaine Solution Depth: Down to and including healthy tissue, in the subcutaneous layer Percentage of wound debrided: 100 Instrument Used: 3mm curette Tissue Removed: Slough and devitalized tissue Severity: Fat Layer Exposed Amount of bleeding with debridement: Mild Bleeding Controlled with: Pressure Patient tolerated procedure well - Additional Wound Wound debrided: Left second toe Wound Grade/Stage: Stage II Type of Debridement: Excisional debridement Anesthesia Used: 4% Lidocaine Solution Depth: Down to and including healthy tissue, in the subcutaneous layer Percentage of wound debrided: 100 Instrument Used: 3mm curette Tissue Removed: slough and devitalized tissue Severity: Fat Layer Exposed Amount of bleeding with debridement: Mild Bleeding Controlled with: Pressure Patient tolerated procedure: Patient tolerated procedure well - Additional Wound Wound debrided: Right lower extremity posterior cluster Wound Grade/Stage: Stage II Type of Debridement: Excisional debridement Anesthesia Used: 4% Lidocaine Solution Depth: Down to and including healthy tissue, in the subcutaneous layer Percentage of wound debrided: 100 Instrument Used: 5mm curette Tissue Removed: Slough and devitalized tissue Severity: Fat Layer Exposed Amount of bleeding with debridement: Mild Bleeding Controlled with: Pressure Patient tolerated procedure: Patient tolerated procedure well Assessment/Plan Active Problems Ulcer of right lower extremity with fat layer exposed (Acute) Bilateral lower extremity edema (Chronic) Toe ulcer, right (Acute) Third and fourth. Open wound of second toe of left foot (Acute) Traumatic, Penetrating. Assessment: Same as above. Plan: Debridement done as documented above. Procedure was well-tolerated. Continue Promogran to open surfaces with Adaptic over top. Worsening edema. Tried 3M last week however patient took it off again beacuse she did not tolerate it. Went back to [place] [facility] but she has not been complaint. Compliance with dressings very strongly recommended. Also advised that she elevate lower extremity when seated and in bed. Increased protein intake recommended. She expressed understanding. Her questions were answered and she was advised to call with any further questions or concerns. Follow-up in 1 week. This note was generated with [employer] dictation software. It may contain incorrect words, spelling, and punctuation that were not noted in checking the note before signing.
== END 2019-01-01 23:59 ==
LOC: WC 09:45
PROVIDERS: Family Provider Family Medicine; PCP Family Medicine; Visit Provider Internal Medicine
DX: L97.212 Non-pressure chronic ulcer of right calf with fat layer exposed (principal); R60.0 Localized edema; S91.135A Puncture wound without foreign body of left lesser toe(s) without damage to nail, initial encounter; W19.XXXA Unspecified fall, initial encounter; Z91.19 Patient's noncompliance with other medical treatment and regimen; L97.812 Non-pressure chronic ulcer of other part of right lower leg with fat layer exposed
CPT/HCPCS: 11042; 11045; 29581

== ENCOUNTER 2019-01-25 10:15 | Outpatient (RCR) | payer MEDICARE, MEDICAID, SELFPAY ==
[2019-01-02 01:13] VITALS: BP 128/79; PULSE 70; RESP 22; TEMP 35
[2019-01-05 10:25] VITALS: BP 127/72; PULSE 66; RESP 16; TEMP 35.7; BMI 73.8
--- NOTE | 2019-01-05 12:04 | PCM.WC.PN ---
(1) Open wound of second toe of left foot Status: Chronic Current Visit: Yes Code(s): S91.105A - Unspecified open wound of left lesser toe(s) without damage to nail, initial encounter Comment: Traumatic, Penetrating. (2) Ulcer of left lower extremity with fat layer exposed Status: Chronic Current Visit: Yes Code(s): L97.922 - Non-pressure chronic ulcer of unspecified part of left lower leg with fat layer exposed (3) Ulcer of right lower extremity with fat layer exposed Status: Chronic Current Visit: Yes Code(s): L97.912 - Non-pressure chronic ulcer of unspecified part of right lower leg with fat layer exposed (4) Bilateral lower extremity edema Status: Chronic Current Visit: Yes Code(s): R60.0 - Localized edema (5) Morbid obesity Status: Chronic Current Visit: No Code(s): E66.01 - Morbid (severe) obesity due to excess calories Type of Wound Chief Complaint: Right lower extremity ulcers. History of Wound: Ms. Molina is a 48-year-old who was referred to the wound center by her primary care physician due to right lower extremity ulcers. Per patient, started out with redness pain and swelling for which she was managed for cellulitis. Subsequently developed ulcerations in her calf and enciso. She feels well other at this time and denies chills, fever, nausea, vomitting or change in her bowel habit. Progress of Wound: Worsening. Bilateral lower extremity edema also worsening. Again not compliant with compression. - Physical Exam Vital Signs Temp Pulse Resp BP 96.2 F L 66 16 127/72 H 01/05/19 10:25 01/05/19 10:25 01/05/19 10:25 01/05/19 10:25 General: Alert, Cooperative, No apparent distress HEENT: Atraumatic, Normocephalic Oral: Moist Mucosa Neck: Supple Lungs: Normal air movement Abdomen: Non Tender, Obese Extremities: No cyanosis, Edema Skin: Ulcer/ Wound Wound Measurements and Assessment WC - Nurse 1 - General Ulcer Measurement Start: 01/05/19 10:24 Freq: Status: Active Protocol: Activity Type Activity Date Activity User E-Sign Co-Sign Detail Recorded Client Recorded Date Recorded By Document 01/05/19 10:25 [facility] [id number] 01/05/19 10:39 [facility] 01/05/19 10:25 Wound Center Nurse 1 [Ulcer Assessment] #7- LT ENCISO -Combined with other wound No -Current Size (cm) - Length 2 -Current Size (cm) - Width 2.6 -Current Size (cm) - Depth 0.1 -Total Square Cm 5.2 -Photo Taken No -Epithelialization None Present -Tunneling No -Undermining/Tunneling No -Circular Undermining No -Exudate Amt Small -Exudate Type Serous -Wound Margin Flat & Intact -Granulation Amt Small (1-33%) -Granulation Quality Red -Slough/Fibrin Yes -Necrosis Amt Large (67-100%) -Necrotic Tissue Type Adherent Slough -Texture (Martha-wound Skin Appearance) Scarring -Moisture (Martha-wound Skin Appearance Assessed ) -Color (Martha-wound Skin Appearance) Assessed Erythema -Temperature (Martha-wound Skin No Abnormality Appearance) (Pt Warm) -Tenderness on Palpation (Martha-wound No Skin Appearance) -Ulcer Cleansing Wound Cleanser -Foul Odor after Cleansing No -Anesthetic Used 4% Lidocaine Solution #6 left 2nd toe dorsal -Combined with other wound No -Current Size (cm) - Length 0.2 -Current Size (cm) - Width 0.4 -Current Size (cm) - Depth 0.1 -Total Square Cm 0.08 -Photo Taken No -Epithelialization Small 1-33% -Tunneling No -Undermining/Tunneling No -Circular Undermining No -Exudate Amt None Present -Wound Margin Flat & Intact -Granulation Amt Small (1-33%) -Granulation Quality [place] -Slough/Fibrin Yes -Necrosis Amt Medium (34-66%) -Necrotic Tissue Type Adherent Slough -Texture (Martha-wound Skin Appearance) Scarring -Moisture (Martha-wound Skin Appearance Assessed ) -Color (Martha-wound Skin Appearance) Assessed -Temperature (Martha-wound Skin No Abnormality Appearance) (Pt Warm) -Tenderness on Palpation (Martha-wound No Skin Appearance) -Ulcer Cleansing Wound Cleanser -Foul Odor after Cleansing No -Anesthetic Used 4% Lidocaine Solution #1 RIGHT POSTERIOR CALF CLUSTER -Combined with other wound No -Current Size (cm) - Length 18 -Current Size (cm) - Width 10.6 -Current Size (cm) - Depth 0.1 -Total Square Cm 190.8 -Photo Taken No -Epithelialization Small 1-33% -Tunneling No -Undermining/Tunneling No -Circular Undermining No -Exudate Amt Large -Exudate Type Serous -Wound Margin Flat & Intact -Granulation Amt Large (67-100%) -Granulation Quality Red -Slough/Fibrin Yes -Necrosis Amt Small (1-33%) -Necrotic Tissue Type Adherent Slough -Texture (Martha-wound Skin Appearance) Assessed Scarring -Moisture (Martha-wound Skin Appearance Assessed ) Weeping -Color (Martha-wound Skin Appearance) Assessed Erythema -Temperature (Martha-wound Skin No Abnormality Appearance) (Pt Warm) -Tenderness on Palpation (Martha-wound Yes Skin Appearance) -Ulcer Cleansing Wound Cleanser -Foul Odor after Cleansing No -Anesthetic Used 4% Lidocaine Solution [Edema Assessment] -Lower Limb Edema Present Yes -Right Calf (cm) 68.6 -Right Ankle (cm) 35.6 -Left Calf (cm) 61.6 -Left Ankle (cm) 31.1 WC - Nurse 2 - General Ulcer CM Notes Start: 01/05/19 10:24 Freq: Status: Active Protocol: Activity Type Activity Date Activity User E-Sign Co-Sign Detail Recorded Client Recorded Date Recorded By Document 01/05/19 10:57 MW [id number] 01/05/19 11:05 MW 01/05/19 10:57 Wound Center Nurse 2 [Procedure/Treatment] #7- LT ENCISO -Time 10:59 -Correct Patient Yes -Correct Side, Site, Position Yes -Correct Procedure Yes -Procedure Performed Yes -Type of Procedure Debridement -Clinical Debridement Subcutaneous -Post Debridement Size (cm) - Length 1.6 -Post Debridement Size (cm) - Width 2.5 -Post Debridement Size (cm) - Depth 0.1 -Total Square Cm 4.00 -Wound/Ulcer Outcome Not Healed -Ulcer Cleansing Rinsed/ Irrigated with Saline -Foul Odor after Cleansing No -Bioengineered Tissue No -Bleeding Controlled with Pressure -Offloading No -Treatment Response Procedure Tolerated Well #6 left 2nd toe dorsal -Time 10:59 -Correct Patient Yes -Correct Side, Site, Position Yes -Correct Procedure Yes -Procedure Performed Yes -Type of Procedure Debridement -Clinical Debridement Subcutaneous -Post Debridement Size (cm) - Length 0.2 -Post Debridement Size (cm) - Width 0.2 -Post Debridement Size (cm) - Depth 0.1 -Total Square Cm 0.04 -Wound/Ulcer Outcome Not Healed -Ulcer Cleansing Rinsed/ Irrigated with Saline -Foul Odor after Cleansing No -Bioengineered Tissue No -Bleeding Controlled with Pressure -Offloading No -Treatment Response Procedure Tolerated Well #1 RIGHT POSTERIOR CALF CLUSTER -Time 10:57 -Correct Patient Yes -Correct Side, Site, Position Yes -Correct Procedure Yes -Procedure Performed Yes -Type of Procedure Debridement -Clinical Debridement Subcutaneous -Post Debridement Size (cm) - Length 20.0 -Post Debridement Size (cm) - Width 10.0 -Post Debridement Size (cm) - Depth 0.1 -Total Square Cm 200.00 -Wound/Ulcer Outcome Not Healed -Ulcer Cleansing Rinsed/ Irrigated with Saline -Foul Odor after Cleansing No -Bioengineered Tissue No -Bleeding Controlled with Pressure -Offloading No -Treatment Response Procedure Tolerated Well [See Physician Procedure note for Specifics] Pain Scale: 0-10 Numeric [Pain] -Is Patient Pain Free? Yes Musculoskeletal: No Muscle Wasting Neurological: Cranial nerves II-XII grossly intact Psych/Mental Status: Normal Affect Debridement Note Post-Debridement Measurements/Treatment WC - Nurse 2 - General Ulcer CM Notes Start: 01/05/19 10:24 Freq: Status: Active Protocol: Activity Type Activity Date Activity User E-Sign Co-Sign Detail Recorded Client Recorded Date Recorded By Document 01/05/19 10:57 MW [id number] 01/05/19 11:05 MW 01/05/19 10:57 Wound Center Nurse 2 #7- LT ENCISO -Time 10:59 -Correct Patient Yes -Correct Side, Site, Position Yes -Correct Procedure Yes -Procedure Performed Yes -Type of Procedure Debridement -Clinical Debridement Subcutaneous -Post Debridement Size (cm) - Length 1.6 -Post Debridement Size (cm) - Width 2.5 -Post Debridement Size (cm) - Depth 0.1 -Total Square Cm 4.00 -Wound/Ulcer Outcome Not Healed -Ulcer Cleansing Rinsed/ Irrigated with Saline -Foul Odor after Cleansing No -Bioengineered Tissue No -Bleeding Controlled with Pressure -Offloading No -Treatment Response Procedure Tolerated Well #6 left 2nd toe dorsal -Time 10:59 -Correct Patient Yes -Correct Side, Site, Position Yes -Correct Procedure Yes -Procedure Performed Yes -Type of Procedure Debridement -Clinical Debridement Subcutaneous -Post Debridement Size (cm) - Length 0.2 -Post Debridement Size (cm) - Width 0.2 -Post Debridement Size (cm) - Depth 0.1 -Total Square Cm 0.04 -Wound/Ulcer Outcome Not Healed -Ulcer Cleansing Rinsed/ Irrigated with Saline -Foul Odor after Cleansing No -Bioengineered Tissue No -Bleeding Controlled with Pressure -Offloading No -Treatment Response Procedure Tolerated Well #1 RIGHT POSTERIOR CALF CLUSTER -Time 10:57 -Correct Patient Yes -Correct Side, Site, Position Yes -Correct Procedure Yes -Procedure Performed Yes -Type of Procedure Debridement -Clinical Debridement Subcutaneous -Post Debridement Size (cm) - Length 20.0 -Post Debridement Size (cm) - Width 10.0 -Post Debridement Size (cm) - Depth 0.1 -Total Square Cm 200.00 -Wound/Ulcer Outcome Not Healed -Ulcer Cleansing Rinsed/ Irrigated with Saline -Foul Odor after Cleansing No -Bioengineered Tissue No -Bleeding Controlled with Pressure -Offloading No -Treatment Response Procedure Tolerated Well Pain Scale: 0-10 Numeric Is Patient Pain Free? Yes Wound debrided: Left lower extremity Wound Grade/Stage: Stage II Type of Debridement: Excisional debridement Anesthesia Used: 4% Lidocaine Solution Depth: Down to and including healthy tissue, in the subcutaneous layer Percentage of wound debrided: 100 Instrument Used: 3mm curette Tissue Removed: Slough and devitalized tissue Severity: Fat Layer Exposed Amount of bleeding with debridement: Mild Bleeding Controlled with: Pressure Patient tolerated procedure well - Additional Wound Wound debrided: Left second toe Wound Grade/Stage: Stage II Type of Debridement: Excisional debridement Anesthesia Used: 4% Lidocaine Solution Depth: Down to and including healthy tissue, in the subcutaneous layer Percentage of wound debrided: 100 Instrument Used: 3mm curette Tissue Removed: Slough and devitalized tissue Severity: Fat Layer Exposed Amount of bleeding with debridement: Mild Bleeding Controlled with: Pressure Patient tolerated procedure: Patient tolerated procedure well - Additional Wound Wound debrided: Right lower extremity Cluster(posterior) Wound Grade/Stage: Stage II Type of Debridement: Excisional debridement Anesthesia Used: 4% Lidocaine Solution Depth: Down to and including healthy tissue, in the subcutaneous layer Percentage of wound debrided: 100 Instrument Used: 5mm curette Tissue Removed: Slough and devitalized tissue Severity: Fat Layer Exposed Amount of bleeding with debridement: Mild Bleeding Controlled with: Pressure Assessment/Plan Active Problems Ulcer of right lower extremity with fat layer exposed (Chronic) Bilateral lower extremity edema (Chronic) Ulcer of left lower extremity with fat layer exposed (Chronic) Open wound of second toe of left foot (Chronic) Traumatic, Penetrating. Assessment: Same as above. Plan: Debridement done as documented above. Procedure was well-tolerated. Switch to Aquacel daily to twice daily depending on drainage. ABD over top. Worsening edema. Tried 3M however patient took it off again beacuse she did not tolerate it. Went back to Isreal wraps but she has not been complaint. Compliance with dressings very strongly recommended. Also advised that she elevate lower extremity when seated and in bed. Referred to the lymphedema clinic. Increased protein intake recommended. She expressed understanding. Her questions were answered and she was advised to call with any further questions or concerns. Follow-up in 1 week. This note was generated with [employer] dictation software. It may contain incorrect words, spelling, and punctuation that were not noted in checking the note before signing.
[2019-01-11 08:15] VITALS: BP 105/49; PULSE 73; RESP 18; TEMP 36.1; BMI 73.8
--- NOTE | 2019-01-11 08:41 | PCM.WC.PN ---
(1) Open wound of second toe of left foot Status: Chronic Current Visit: Yes Code(s): S91.105A - Unspecified open wound of left lesser toe(s) without damage to nail, initial encounter Comment: Traumatic, Penetrating. (2) Ulcer of left lower extremity with fat layer exposed Status: Chronic Current Visit: Yes Code(s): L97.922 - Non-pressure chronic ulcer of unspecified part of left lower leg with fat layer exposed (3) Ulcer of right lower extremity with fat layer exposed Status: Chronic Current Visit: Yes Code(s): L97.912 - Non-pressure chronic ulcer of unspecified part of right lower leg with fat layer exposed (4) Bilateral lower extremity edema Status: Chronic Current Visit: Yes Code(s): R60.0 - Localized edema (5) Morbid obesity Status: Chronic Current Visit: No Code(s): E66.01 - Morbid (severe) obesity due to excess calories Type of Wound Chief Complaint: Right lower extremity ulcers. History of Wound: Ms. Molina is a 48-year-old who was referred to the wound center by her primary care physician due to right lower extremity ulcers. Per patient, started out with redness pain and swelling for which she was managed for cellulitis. Subsequently developed ulcerations in her calf and enciso. She feels well other at this time and denies chills, fever, nausea, vomitting or change in her bowel habit. Progress of Wound: Worsening. Bilateral lower extremity edema also worsening. Caring for herself is becoming increasingly difficult. - Physical Exam Vital Signs Temp Pulse Resp BP 97 F L 73 18 105/49 L 01/11/19 08:15 01/11/19 08:15 01/11/19 08:15 01/11/19 08:15 General: Alert, Oriented x3, Cooperative, No apparent distress HEENT: Atraumatic, Normocephalic Oral: Moist Mucosa Neck: Supple Lungs: Normal air movement Abdomen: Non Tender, Obese Extremities: No cyanosis, Edema Skin: Ulcer/ Wound Wound Measurements and Assessment WC - Nurse 1 - General Ulcer Measurement Start: 01/05/19 10:24 Freq: Status: Active Protocol: Activity Type Activity Date Activity User E-Sign Co-Sign Detail Recorded Client Recorded Date Recorded By Document 01/11/19 08:15 RB [id number] 01/11/19 08:26 RB 01/11/19 08:15 Wound Center Nurse 1 [Ulcer Assessment] #7- LT ENCISO -Combined with other wound No -Current Size (cm) - Length 1.8 -Current Size (cm) - Width 2.5 -Current Size (cm) - Depth 0.1 -Total Square Cm 4.50 -Photo Taken No -Tunneling No -Undermining/Tunneling No -Circular Undermining No -Exudate Amt Small -Exudate Type Serosanguineous -Wound Margin Distinct, Outline Attached -Granulation Amt Large (67-100%) -Granulation Quality Tuckerman -Slough/Fibrin Yes -Necrosis Amt Small (1-33%) -Necrotic Tissue Type Adherent Slough -Structure Exposed N/A -Texture (Martha-wound Skin Appearance) Assessed -Moisture (Martha-wound Skin Appearance Assessed ) Weeping -Color (Martha-wound Skin Appearance) Assessed -Temperature (Martha-wound Skin No Abnormality Appearance) (Pt Warm) -Tenderness on Palpation (Martha-wound No Skin Appearance) -Ulcer Cleansing Wound Cleanser -Foul Odor after Cleansing No -Anesthetic Used 5% Lidocaine Gel #6 left 2nd toe dorsal -Combined with other wound No -Current Size (cm) - Length 0.1 -Current Size (cm) - Width 0.1 -Current Size (cm) - Depth 0.1 -Total Square Cm 0.01 -Photo Taken No -Tunneling No -Undermining/Tunneling No -Circular Undermining No -Exudate Amt None Present -Wound Margin Distinct, Outline Attached -Granulation Amt Medium (34-66%) -Granulation Quality Tuckerman -Slough/Fibrin Yes -Necrosis Amt Medium (34-66%) -Necrotic Tissue Type Adherent Slough -Structure Exposed N/A -Texture (Martha-wound Skin Appearance) Assessed -Moisture (Martha-wound Skin Appearance Assessed ) -Color (Martha-wound Skin Appearance) Assessed -Temperature (Martha-wound Skin No Abnormality Appearance) (Pt Warm) -Tenderness on Palpation (Martha-wound No Skin Appearance) -Ulcer Cleansing Wound Cleanser -Foul Odor after Cleansing No -Anesthetic Used 4% Lidocaine Solution #1 RIGHT POSTERIOR CALF CLUSTER -Combined with other wound No -Current Size (cm) - Length 16.5 -Current Size (cm) - Width 13 -Current Size (cm) - Depth 0.1 -Total Square Cm 214.5 -Photo Taken No -Tunneling No -Undermining/Tunneling No -Circular Undermining No -Exudate Amt Large -Exudate Type Serosanguineous -Wound Margin Distinct, Outline Attached -Granulation Amt Large (67-100%) -Granulation Quality Tuckerman -Slough/Fibrin Yes -Necrosis Amt Medium (34-66%) -Necrotic Tissue Type Adherent Slough -Structure Exposed N/A -Texture (Martha-wound Skin Appearance) Assessed -Moisture (Martha-wound Skin Appearance Maceration ) -Color (Martha-wound Skin Appearance) Assessed -Temperature (Martha-wound Skin No Abnormality Appearance) (Pt Warm) -Ulcer Cleansing Wound Cleanser -Anesthetic Used 4% Lidocaine Solution [Edema Assessment] -Lower Limb Edema Present Yes -Right Calf (cm) 69 -Right Ankle (cm) 36 -Left Calf (cm) 63 -Left Ankle (cm) 31 WC - Nurse 2 - General Ulcer CM Notes Start: 01/05/19 10:24 Freq: Status: Active Protocol: Activity Type Activity Date Activity User E-Sign Co-Sign Detail Recorded Client Recorded Date Recorded By Document 01/11/19 08:39 MW [id number] 01/11/19 08:40 MW 01/11/19 08:39 Wound Center Nurse 2 [Procedure/Treatment] #7- LT ENCISO -Time 08:39 -Correct Patient Yes -Correct Side, Site, Position Yes -Correct Procedure Yes -Procedure Performed Yes -Type of Procedure Debridement -Clinical Debridement Subcutaneous -Post Debridement Size (cm) - Length 2.0 -Post Debridement Size (cm) - Width 2.6 -Post Debridement Size (cm) - Depth 0.1 -Total Square Cm 5.20 -Wound/Ulcer Outcome Not Healed -Ulcer Cleansing Rinsed/ Irrigated with Saline -Foul Odor after Cleansing No -Bioengineered Tissue No -Bleeding Controlled with Pressure -Offloading No -Treatment Response Procedure Tolerated Well #6 left 2nd toe dorsal -Time 08:40 -Correct Patient Yes -Correct Side, Site, Position Yes -Correct Procedure Yes -Procedure Performed Yes -Type of Procedure Debridement -Clinical Debridement Subcutaneous -Post Debridement Size (cm) - Length 0.1 -Post Debridement Size (cm) - Width 0.3 -Post Debridement Size (cm) - Depth 0.1 -Total Square Cm 0.03 -Wound/Ulcer Outcome Not Healed -Ulcer Cleansing Rinsed/ Irrigated with Saline -Foul Odor after Cleansing No -Bioengineered Tissue No -Bleeding Controlled with Pressure -Offloading No -Treatment Response Procedure Tolerated Well #1 RIGHT POSTERIOR CALF CLUSTER -Time 08:40 -Correct Patient Yes -Correct Side, Site, Position Yes -Correct Procedure Yes -Procedure Performed Yes -Type of Procedure Debridement -Clinical Debridement Subcutaneous -Post Debridement Size (cm) - Length 24.0 -Post Debridement Size (cm) - Width 11.0 -Post Debridement Size (cm) - Depth 0.1 -Total Square Cm 264.00 -Wound/Ulcer Outcome Not Healed -Ulcer Cleansing Rinsed/ Irrigated with Saline -Foul Odor after Cleansing No -Bioengineered Tissue No -Bleeding Controlled with Pressure -Offloading No -Treatment Response Procedure Tolerated Well [See Physician Procedure note for Specifics] Pain Scale: 0-10 Numeric [Pain] -Is Patient Pain Free? Yes Musculoskeletal: No Muscle Wasting Neurological: Cranial nerves II-XII grossly intact Psych/Mental Status: Normal Affect Debridement Note Post-Debridement Measurements/Treatment WC - Nurse 2 - General Ulcer CM Notes Start: 01/05/19 10:24 Freq: Status: Active Protocol: Activity Type Activity Date Activity User E-Sign Co-Sign Detail Recorded Client Recorded Date Recorded By Document 01/05/19 10:57 MW [id number] 01/05/19 11:05 MW Document 01/11/19 08:39 MW [id number] 01/11/19 08:40 MW 01/05/19 01/11/19 10:57 08:39 Wound Center Nurse 2 #7- LT ENCISO -Time 10:59 08:39 -Correct Patient Yes Yes -Correct Side, Site, Position Yes Yes -Correct Procedure Yes Yes -Procedure Performed Yes Yes -Type of Procedure Debridement Debridement -Clinical Debridement Subcutaneous Subcutaneous -Post Debridement Size (cm) - Length 1.6 2.0 -Post Debridement Size (cm) - Width 2.5 2.6 -Post Debridement Size (cm) - Depth 0.1 0.1 -Total Square Cm 4.00 5.20 -Wound/Ulcer Outcome Not Healed Not Healed -Ulcer Cleansing Rinsed/ Rinsed/ Irrigated with Irrigated with Saline Saline -Foul Odor after Cleansing No No -Bioengineered Tissue No No -Bleeding Controlled with Pressure Pressure -Offloading No No -Treatment Response Procedure Procedure Tolerated Well Tolerated Well #6 left 2nd toe dorsal -Time 10:59 08:40 -Correct Patient Yes Yes -Correct Side, Site, Position Yes Yes -Correct Procedure Yes Yes -Procedure Performed Yes Yes -Type of Procedure Debridement Debridement -Clinical Debridement Subcutaneous Subcutaneous -Post Debridement Size (cm) - Length 0.2 0.1 -Post Debridement Size (cm) - Width 0.2 0.3 -Post Debridement Size (cm) - Depth 0.1 0.1 -Total Square Cm 0.04 0.03 -Wound/Ulcer Outcome Not Healed Not Healed -Ulcer Cleansing Rinsed/ Rinsed/ Irrigated with Irrigated with Saline Saline -Foul Odor after Cleansing No No -Bioengineered Tissue No No -Bleeding Controlled with Pressure Pressure -Offloading No No -Treatment Response Procedure Procedure Tolerated Well Tolerated Well #1 RIGHT POSTERIOR CALF CLUSTER -Time 10:57 08:40 -Correct Patient Yes Yes -Correct Side, Site, Position Yes Yes -Correct Procedure Yes Yes -Procedure Performed Yes Yes -Type of Procedure Debridement Debridement -Clinical Debridement Subcutaneous Subcutaneous -Post Debridement Size (cm) - Length 20.0 24.0 -Post Debridement Size (cm) - Width 10.0 11.0 -Post Debridement Size (cm) - Depth 0.1 0.1 -Total Square Cm 200.00 264.00 -Wound/Ulcer Outcome Not Healed Not Healed -Ulcer Cleansing Rinsed/ Rinsed/ Irrigated with Irrigated with Saline Saline -Foul Odor after Cleansing No No -Bioengineered Tissue No No -Bleeding Controlled with Pressure Pressure -Offloading No No -Treatment Response Procedure Procedure Tolerated Well Tolerated Well Pain Scale: 0-10 Numeric Is Patient Pain Free? Yes Yes Wound debrided: Left second toe Wound Grade/Stage: Stage II Type of Debridement: Excisional debridement Anesthesia Used: 4% Lidocaine Solution Depth: Down to and including healthy tissue, in the subcutaneous layer Percentage of wound debrided: 100 Instrument Used: 3mm curette Tissue Removed: Slough and devitalized tissue Severity: Fat Layer Exposed Amount of bleeding with debridement: Mild Bleeding Controlled with: Pressure Patient tolerated procedure well - Additional Wound Wound debrided: Left enciso Wound Grade/Stage: Stage II Type of Debridement: Excisional debridement Anesthesia Used: 4% Lidocaine Solution Depth: Down to and including healthy tissue, in the subcutaneous layer Percentage of wound debrided: 100 Instrument Used: 3mm curette Tissue Removed: Slough adn devitalized tissue Severity: Fat Layer Exposed Amount of bleeding with debridement: Mild Bleeding Controlled with: Pressure Patient tolerated procedure: Patient tolerated procedure well - Additional Wound Wound debrided: Right lower extremity ( Posterior ) cluster Wound Grade/Stage: Stage II Type of Debridement: Excisional debridement Anesthesia Used: 4% Lidocaine Solution Depth: Down to and including healthy tissue, in the subcutaneous layer Percentage of wound debrided: 100 Instrument Used: 3mm curette Tissue Removed: Slough and devitaluzed tissue Severity: Fat Layer Exposed Amount of bleeding with debridement: Mild Bleeding Controlled with: Pressure Patient tolerated procedure: Patient tolerated procedure well Assessment/Plan Active Problems Ulcer of right lower extremity with fat layer exposed (Chronic) Bilateral lower extremity edema (Chronic) Ulcer of left lower extremity with fat layer exposed (Chronic) Open wound of second toe of left foot (Chronic) Traumatic, Penetrating. Assessment: Same as above. Plan: Debridement done as documented above. Procedure was well-tolerated. Again worsening edema is noted and right nlower extremity with new clusters. Spoke with her about being admitted to a NH however, she states that she is in the process of getting a nurse come in via the state waiver program 3 x weekly.Continue Aquacel daily to twice daily depending on drainage. ABD over top. Worsening edema. Tried 3M however patient took it off again beacuse she did not tolerate it. Went back to Isreal wraps but she has not been complaint. Compliance with dressings very strongly recommended. Also advised that she elevate lower extremity when seated and in bed. Referred to the lymphedema clinic. First visit scheduled for a week. Increased protein intake recommended. She expressed understanding. Her questions were answered and she was advised to call with any further questions or concerns. Follow-up in 1 week. This note was generated with [employer] dictation software. It may contain incorrect words, spelling, and punctuation that were not noted in checking the note before signing.
[2019-01-18 10:20] VITALS: BP 128/69; PULSE 76; RESP 20; TEMP 35.5; BMI 73.8
--- NOTE | 2019-01-18 12:57 | PCM.WC.PN ---
(1) Open wound of second toe of left foot Status: Chronic Current Visit: Yes Code(s): S91.105A - Unspecified open wound of left lesser toe(s) without damage to nail, initial encounter Comment: Traumatic, Penetrating. (2) Ulcer of left lower extremity with fat layer exposed Status: Chronic Current Visit: Yes Code(s): L97.922 - Non-pressure chronic ulcer of unspecified part of left lower leg with fat layer exposed (3) Ulcer of right lower extremity with fat layer exposed Status: Chronic Current Visit: Yes Code(s): L97.912 - Non-pressure chronic ulcer of unspecified part of right lower leg with fat layer exposed (4) Bilateral lower extremity edema Status: Chronic Current Visit: Yes Code(s): R60.0 - Localized edema (5) Morbid obesity Status: Chronic Current Visit: No Code(s): E66.01 - Morbid (severe) obesity due to excess calories Type of Wound Chief Complaint: Right lower extremity ulcers. History of Wound: Ms. Molina is a 48-year-old who was referred to the wound center by her primary care physician due to right lower extremity ulcers. Per patient, started out with redness pain and swelling for which she was managed for cellulitis. Subsequently developed ulcerations in her calf and enciso. She feels well other at this time and denies chills, fever, nausea, vomitting or change in her bowel habit. Progress of Wound: Worsening. Bilateral lower extremity edema also worsening. Caring for herself is becoming increasingly difficult and patient is not open to [place] [facility]. - Physical Exam Vital Signs Temp Pulse Resp BP 96 F L 76 20 H 128/69 H 01/18/19 10:20 01/18/19 10:20 01/18/19 10:20 01/18/19 10:20 General: Alert, Oriented x3, Cooperative, No apparent distress HEENT: Atraumatic, Normocephalic Oral: Moist Mucosa Neck: Supple Lungs: Normal air movement Abdomen: Obese Extremities: No cyanosis, Edema Skin: Ulcer/ Wound Wound Measurements and Assessment WC - Nurse 1 - General Ulcer Measurement Start: 01/05/19 10:24 Freq: Status: Active Protocol: Activity Type Activity Date Activity User E-Sign Co-Sign Detail Recorded Client Recorded Date Recorded By Document 01/18/19 10:20 [facility] [id number] 01/18/19 10:40 [facility] 01/18/19 10:20 Wound Center Nurse 1 [Ulcer Assessment] #8- LT POST CALF CLUSTER -Combined with other wound No -Current Size (cm) - Length 6.6 -Current Size (cm) - Width 5.8 -Current Size (cm) - Depth 0.1 -Total Square Cm 38.28 -Date of Last Picture (Recall this 01/18/19 field) -Photo Taken Yes -Epithelialization None Present -Tunneling No -Undermining/Tunneling No -Circular Undermining No -Exudate Amt Medium -Exudate Type Serous -Wound Margin Flat & Intact -Granulation Amt Medium (34-66%) -Granulation Quality Red -Slough/Fibrin Yes -Necrosis Amt Medium (34-66%) -Necrotic Tissue Type Adherent Slough -Texture (Martha-wound Skin Appearance) Assessed Scarring -Moisture (Martha-wound Skin Appearance Assessed ) Maceration Weeping -Color (Martha-wound Skin Appearance) Assessed Erythema -Temperature (Martha-wound Skin No Abnormality Appearance) (Pt Warm) -Tenderness on Palpation (Martha-wound Yes Skin Appearance) -Ulcer Cleansing Wound Cleanser -Foul Odor after Cleansing No -Anesthetic Used 4% Lidocaine Solution #7- LT ENCISO -Combined with other wound No -Current Size (cm) - Length 4 -Current Size (cm) - Width 2.6 -Current Size (cm) - Depth 0.1 -Total Square Cm 10.4 -Photo Taken No -Epithelialization None Present -Tunneling No -Undermining/Tunneling No -Circular Undermining No -Exudate Amt Medium -Exudate Type Serous -Wound Margin Flat & Intact -Granulation Amt Medium (34-66%) -Granulation Quality Red -Slough/Fibrin Yes -Necrosis Amt Medium (34-66%) -Necrotic Tissue Type Adherent Slough -Texture (Martha-wound Skin Appearance) Assessed Scarring Rash -Moisture (Martha-wound Skin Appearance Assessed ) Maceration Weeping -Color (Martha-wound Skin Appearance) Assessed Erythema -Temperature (Martha-wound Skin No Abnormality Appearance) (Pt Warm) -Tenderness on Palpation (Martha-wound Yes Skin Appearance) -Ulcer Cleansing Wound Cleanser -Foul Odor after Cleansing No -Anesthetic Used 4% Lidocaine Solution #6 left 2nd toe dorsal -Combined with other wound No -Current Size (cm) - Length 0.1 -Current Size (cm) - Width 0.1 -Current Size (cm) - Depth 0.1 -Total Square Cm 0.01 -Photo Taken No -Epithelialization Large 67-100% -Tunneling No -Undermining/Tunneling No -Circular Undermining No -Exudate Amt None Present -Temperature (Martha-wound Skin No Abnormality Appearance) (Pt Warm) -Tenderness on Palpation (Martha-wound No Skin Appearance) -Ulcer Cleansing Wound Cleanser -Foul Odor after Cleansing No -Anesthetic Used 5% Lidocaine Gel #1 RIGHT POSTERIOR CALF CLUSTER -Combined with other wound No -Current Size (cm) - Length 21.5 -Current Size (cm) - Width 18.4 -Current Size (cm) - Depth 0.1 -Total Square Cm 395.60 -Photo Taken No -Epithelialization None Present -Tunneling No -Undermining/Tunneling No -Circular Undermining No -Exudate Amt Large -Exudate Type Serous -Wound Margin Flat & Intact -Granulation Amt Medium (34-66%) -Granulation Quality Red -Slough/Fibrin Yes -Necrosis Amt Medium (34-66%) -Necrotic Tissue Type Adherent Slough -Texture (Martha-wound Skin Appearance) Assessed Scarring -Moisture (Martha-wound Skin Appearance Assessed ) Maceration Weeping -Color (Martha-wound Skin Appearance) Assessed Erythema -Temperature (Martha-wound Skin No Abnormality Appearance) (Pt Warm) -Tenderness on Palpation (Martha-wound Yes Skin Appearance) -Ulcer Cleansing Wound Cleanser -Foul Odor after Cleansing No -Anesthetic Used 4% Lidocaine Solution [Edema Assessment] -Lower Limb Edema Present Yes -Right Calf (cm) 65.5 -Right Ankle (cm) 34.5 -Left Calf (cm) 61.5 -Left Ankle (cm) 31.5 WC - Nurse 2 - General Ulcer CM Notes Start: 01/05/19 10:24 Freq: Status: Active Protocol: Activity Type Activity Date Activity User E-Sign Co-Sign Detail Recorded Client Recorded Date Recorded By Document 01/18/19 10:48 MW [id number] 01/18/19 10:56 MW 01/18/19 10:48 Wound Center Nurse 2 [Procedure/Treatment] #8- LT POST CALF CLUSTER -Time 10:50 -Correct Patient Yes -Correct Side, Site, Position Yes -Correct Procedure Yes -Procedure Performed Yes -Type of Procedure Debridement -Clinical Debridement Subcutaneous -Post Debridement Size (cm) - Length 14.0 -Post Debridement Size (cm) - Width 9.0 -Post Debridement Size (cm) - Depth 0.2 -Total Square Cm 126.00 -Wound/Ulcer Outcome Not Healed -Ulcer Cleansing Rinsed/ Irrigated with Saline -Foul Odor after Cleansing No -Bioengineered Tissue No -Bleeding Controlled with Pressure -Offloading No -Treatment Response Procedure Tolerated Well #7- LT ENCISO -Time 10:50 -Correct Patient Yes -Correct Side, Site, Position Yes -Correct Procedure Yes -Procedure Performed Yes -Type of Procedure Debridement -Clinical Debridement Subcutaneous -Post Debridement Size (cm) - Length 4.0 -Post Debridement Size (cm) - Width 3.5 -Post Debridement Size (cm) - Depth 0.1 -Total Square Cm 14.00 -Wound/Ulcer Outcome Not Healed -Ulcer Cleansing Rinsed/ Irrigated with Saline -Foul Odor after Cleansing No -Bioengineered Tissue No -Bleeding Controlled with Pressure -Offloading No -Treatment Response Procedure Tolerated Well #6 left 2nd toe dorsal -Time 10:50 -Correct Patient Yes -Correct Side, Site, Position Yes -Correct Procedure Yes -Procedure Performed No -Post Debridement Size (cm) - Length 0 -Post Debridement Size (cm) - Width 0 -Post Debridement Size (cm) - Depth 0 -Total Square Cm 0 -Wound/Ulcer Outcome Healed- Epithelialized #1 RIGHT POSTERIOR CALF CLUSTER -Time 10:49 -Correct Patient Yes -Correct Side, Site, Position Yes -Correct Procedure Yes -Procedure Performed Yes -Type of Procedure Debridement -Clinical Debridement Subcutaneous -Post Debridement Size (cm) - Length 20.0 -Post Debridement Size (cm) - Width 16.0 -Post Debridement Size (cm) - Depth 0.1 -Total Square Cm 320.00 -Wound/Ulcer Outcome Not Healed -Ulcer Cleansing Rinsed/ Irrigated with Saline -Foul Odor after Cleansing No -Bioengineered Tissue No -Bleeding Controlled with Pressure -Offloading No -Treatment Response Procedure Tolerated Well [See Physician Procedure note for Specifics] Pain Scale: 0-10 Numeric [Pain] -Is Patient Pain Free? Yes Musculoskeletal: No Muscle Wasting Neurological: Cranial nerves II-XII grossly intact Psych/Mental Status: Normal Affect Debridement Note Post-Debridement Measurements/Treatment WC - Nurse 2 - General Ulcer CM Notes Start: 01/05/19 10:24 Freq: Status: Active Protocol: Activity Type Activity Date Activity User E-Sign Co-Sign Detail Recorded Client Recorded Date Recorded By Document 01/05/19 10:57 MW [id number] 01/05/19 11:05 MW Document 01/11/19 08:39 MW [id number] 01/11/19 08:40 MW Document 01/18/19 10:48 MW [id number] 01/18/19 10:56 MW 01/05/19 01/11/19 01/18/19 10:57 08:39 10:48 Wound Center Nurse 2 #8- LT POST CALF CLUSTER -Time 10:50 -Correct Patient Yes -Correct Side, Site, Position Yes -Correct Procedure Yes -Procedure Performed Yes -Type of Procedure Debridement -Clinical Debridement Subcutaneous -Post Debridement Size (cm) - Length 14.0 -Post Debridement Size (cm) - Width 9.0 -Post Debridement Size (cm) - Depth 0.2 -Total Square Cm 126.00 -Wound/Ulcer Outcome Not Healed -Ulcer Cleansing Rinsed/ Irrigated with Saline -Foul Odor after Cleansing No -Bioengineered Tissue No -Bleeding Controlled with Pressure -Offloading No -Treatment Response Procedure Tolerated Well #7- LT ENCISO -Time 10:59 08:39 10:50 -Correct Patient Yes Yes Yes -Correct Side, Site, Position Yes Yes Yes -Correct Procedure Yes Yes Yes -Procedure Performed Yes Yes Yes -Type of Procedure Debridement Debridement Debridement -Clinical Debridement Subcutaneous Subcutaneous Subcutaneous -Post Debridement Size (cm) - Length 1.6 2.0 4.0 -Post Debridement Size (cm) - Width 2.5 2.6 3.5 -Post Debridement Size (cm) - Depth 0.1 0.1 0.1 -Total Square Cm 4.00 5.20 14.00 -Wound/Ulcer Outcome Not Healed Not Healed Not Healed -Ulcer Cleansing Rinsed/ Rinsed/ Rinsed/ Irrigated with Irrigated with Irrigated with Saline Saline Saline -Foul Odor after Cleansing No No No -Bioengineered Tissue No No No -Bleeding Controlled with Pressure Pressure Pressure -Offloading No No No -Treatment Response Procedure Procedure Procedure Tolerated Well Tolerated Well Tolerated Well #6 left 2nd toe dorsal -Time 10:59 08:40 10:50 -Correct Patient Yes Yes Yes -Correct Side, Site, Position Yes Yes Yes -Correct Procedure Yes Yes Yes -Procedure Performed Yes Yes No -Type of Procedure Debridement Debridement -Clinical Debridement Subcutaneous Subcutaneous -Post Debridement Size (cm) - Length 0.2 0.1 0 -Post Debridement Size (cm) - Width 0.2 0.3 0 -Post Debridement Size (cm) - Depth 0.1 0.1 0 -Total Square Cm 0.04 0.03 0 -Wound/Ulcer Outcome Not Healed Not Healed Healed- Epithelialized -Ulcer Cleansing Rinsed/ Rinsed/ Irrigated with Irrigated with Saline Saline -Foul Odor after Cleansing No No -Bioengineered Tissue No No -Bleeding Controlled with Pressure Pressure -Offloading No No -Treatment Response Procedure Procedure Tolerated Well Tolerated Well #1 RIGHT POSTERIOR CALF CLUSTER -Time 10:57 08:40 10:49 -Correct Patient Yes Yes Yes -Correct Side, Site, Position Yes Yes Yes -Correct Procedure Yes Yes Yes -Procedure Performed Yes Yes Yes -Type of Procedure Debridement Debridement Debridement -Clinical Debridement Subcutaneous Subcutaneous Subcutaneous -Post Debridement Size (cm) - Length 20.0 24.0 20.0 -Post Debridement Size (cm) - Width 10.0 11.0 16.0 -Post Debridement Size (cm) - Depth 0.1 0.1 0.1 -Total Square Cm 200.00 264.00 320.00 -Wound/Ulcer Outcome Not Healed Not Healed Not Healed -Ulcer Cleansing Rinsed/ Rinsed/ Rinsed/ Irrigated with Irrigated with Irrigated with Saline Saline Saline -Foul Odor after Cleansing No No No -Bioengineered Tissue No No No -Bleeding Controlled with Pressure Pressure Pressure -Offloading No No No -Treatment Response Procedure Procedure Procedure Tolerated Well Tolerated Well Tolerated Well Pain Scale: 0-10 Numeric Is Patient Pain Free? Yes Yes Yes Wound debrided: Right lower extremity Wound Grade/Stage: Stage II Type of Debridement: Excisional debridement Anesthesia Used: 4% Lidocaine Solution Depth: Down to and including healthy tissue, in the subcutaneous layer Percentage of wound debrided: 100 Instrument Used: 5mm curette Tissue Removed: slough and devitalized tissue Severity: Fat Layer Exposed Amount of bleeding with debridement: Mild Bleeding Controlled with: Pressure Patient tolerated procedure well - Additional Wound Wound debrided: Left enciso Wound Grade/Stage: Stage II Type of Debridement: Excisional debridement Anesthesia Used: 4% Lidocaine Solution, 5% Lidocaine Gel Depth: Down to and including healthy tissue, in the subcutaneous layer Percentage of wound debrided: 100 Instrument Used: 5mm curette Tissue Removed: Slough and devitalized tissue Severity: Fat Layer Exposed Amount of bleeding with debridement: Mild Bleeding Controlled with: Pressure Patient tolerated procedure: Patient tolerated procedure well - Additional Wound Wound debrided: Left posterior cluster Wound Grade/Stage: Stage II Type of Debridement: Excisional debridement Anesthesia Used: 4% Lidocaine Solution Depth: Down to and including healthy tissue, in the subcutaneous layer Percentage of wound debrided: 100 Instrument Used: 5mm curette Tissue Removed: Slough and devitalized tissue Severity: Fat Layer Exposed Amount of bleeding with debridement: Mild Bleeding Controlled with: Pressure Patient tolerated procedure: Patient tolerated procedure well Assessment/Plan Active Problems Ulcer of right lower extremity with fat layer exposed (Chronic) Bilateral lower extremity edema (Chronic) Ulcer of left lower extremity with fat layer exposed (Chronic) Open wound of second toe of left foot (Chronic) Traumatic, Penetrating. Assessment: Same as above. Plan: Debridement done as documented above. Procedure was well-tolerated. Again worsening edema is noted both right and left lower extremity new clusters/worsening ulcers. Again spoke with her about being admitted to a NH however again declined. We did speak with a case worker and patient will get a nurse aide but not a nurse. She has no one helping with her wound care and she is unable to. She however is adamant about not going to a nursing facility. She is not compliant with compression. Continue Aquacel daily to twice daily depending on drainage. ABD over top. Worsening edema. Tried 3M however patient took it off again beacuse she did not tolerate it. Went back to Isreal wraps but she has not been complaint. Compliance with dressings very strongly recommended. Also advised that she elevate lower extremity when seated and in bed. Increased protein intake recommended. She expressed understanding. Due to poor compliance and inability to adequately care for herself prognosis for wound healing is not very encouraging. She will become complex care pending further resolution of home care situation. Her questions were answered and she was advised to call with any further questions or concerns. Follow-up in 1 week. This note was generated with Onarboration software. It may contain incorrect words, spelling, and punctuation that were not noted in checking the note before signing.
--- NOTE | 2019-01-18 13:01 | PN.PCM_ITS ---
(1) Open wound of second toe of left foot Status: Chronic Current Visit: Yes Code(s): S91.105A - Unspecified open wound of left lesser toe(s) without damage to nail, initial encounter Comment: Traumatic, Penetrating. (2) Ulcer of left lower extremity with fat layer exposed Status: Chronic Current Visit: Yes Code(s): L97.922 - Non-pressure chronic ulcer of unspecified part of left lower leg with fat layer exposed (3) Ulcer of right lower extremity with fat layer exposed Status: Chronic Current Visit: Yes Code(s): L97.912 - Non-pressure chronic ulcer of unspecified part of right lower leg with fat layer exposed (4) Bilateral lower extremity edema Status: Chronic Current Visit: Yes Code(s): R60.0 - Localized edema (5) Morbid obesity Status: Chronic Current Visit: No Code(s): E66.01 - Morbid (severe) obesity due to excess calories Type of Wound Chief Complaint: Right lower extremity ulcers. History of Wound: Ms. Molina is a 48-year-old who was referred to the wound center by her primary care physician due to right lower extremity ulcers. Per patient, started out with redness pain and swelling for which she was managed for cellulitis. Subsequently developed ulcerations in her calf and enciso. She feels well other at this time and denies chills, fever, nausea, vomitting or change in her bowel habit. Progress of Wound: Worsening. Bilateral lower extremity edema also worsening. Caring for herself is becoming increasingly difficult and patient is not open to correction/facility. - Physical Exam Vital Signs Temp Pulse Resp BP 96 F L 76 20 H 128/69 H 01/18/19 10:20 01/18/19 10:20 01/18/19 10:20 01/18/19 10:20 General: Alert, Oriented x3, Cooperative, No apparent distress HEENT: Atraumatic, Normocephalic Oral: Moist Mucosa Neck: Supple Lungs: Normal air movement Abdomen: Obese Extremities: No cyanosis, Edema Skin: Ulcer/ Wound Wound Measurements and Assessment WC - Nurse 1 - General Ulcer Measurement Start: 01/05/19 10:24 Freq: Status: Active Protocol: Activity Type Activity Date Activity User E-Sign Co-Sign Detail Recorded Client Recorded Date Recorded By Document 01/18/19 10:20 [facility] [id number] 01/18/19 10:40 [facility] 01/18/19 10:20 Wound Center Nurse 1 [Ulcer Assessment] #8- LT POST CALF CLUSTER -Combined with other wound No -Current Size (cm) - Length 6.6 -Current Size (cm) - Width 5.8 -Current Size (cm) - Depth 0.1 -Total Square Cm 38.28 -Date of Last Picture (Recall this 01/18/19 field) -Photo Taken Yes -Epithelialization None Present -Tunneling No -Undermining/Tunneling No -Circular Undermining No -Exudate Amt Medium -Exudate Type Serous -Wound Margin Flat & Intact -Granulation Amt Medium (34-66%) -Granulation Quality Red -Slough/Fibrin Yes -Necrosis Amt Medium (34-66%) -Necrotic Tissue Type Adherent Slough -Texture (Martha-wound Skin Appearance) Assessed Scarring -Moisture (Martha-wound Skin Appearance Assessed ) Maceration Weeping -Color (Martha-wound Skin Appearance) Assessed Erythema -Temperature (Martha-wound Skin No Abnormality Appearance) (Pt Warm) -Tenderness on Palpation (Martha-wound Yes Skin Appearance) -Ulcer Cleansing Wound Cleanser -Foul Odor after Cleansing No -Anesthetic Used 4% Lidocaine Solution #7- LT ENCISO -Combined with other wound No -Current Size (cm) - Length 4 -Current Size (cm) - Width 2.6 -Current Size (cm) - Depth 0.1 -Total Square Cm 10.4 -Photo Taken No -Epithelialization None Present -Tunneling No -Undermining/Tunneling No -Circular Undermining No -Exudate Amt Medium -Exudate Type Serous -Wound Margin Flat & Intact -Granulation Amt Medium (34-66%) -Granulation Quality Red -Slough/Fibrin Yes -Necrosis Amt Medium (34-66%) -Necrotic Tissue Type Adherent Slough -Texture (Martha-wound Skin Appearance) Assessed Scarring Rash -Moisture (Martha-wound Skin Appearance Assessed ) Maceration Weeping -Color (Martha-wound Skin Appearance) Assessed Erythema -Temperature (Martha-wound Skin No Abnormality Appearance) (Pt Warm) -Tenderness on Palpation (Martha-wound Yes Skin Appearance) -Ulcer Cleansing Wound Cleanser -Foul Odor after Cleansing No -Anesthetic Used 4% Lidocaine Solution #6 left 2nd toe dorsal -Combined with other wound No -Current Size (cm) - Length 0.1 -Current Size (cm) - Width 0.1 -Current Size (cm) - Depth 0.1 -Total Square Cm 0.01 -Photo Taken No -Epithelialization Large 67-100% -Tunneling No -Undermining/Tunneling No -Circular Undermining No -Exudate Amt None Present -Temperature (Martha-wound Skin No Abnormality Appearance) (Pt Warm) -Tenderness on Palpation (Martha-wound No Skin Appearance) -Ulcer Cleansing Wound Cleanser -Foul Odor after Cleansing No -Anesthetic Used 5% Lidocaine Gel #1 RIGHT POSTERIOR CALF CLUSTER -Combined with other wound No -Current Size (cm) - Length 21.5 -Current Size (cm) - Width 18.4 -Current Size (cm) - Depth 0.1 -Total Square Cm 395.60 -Photo Taken No -Epithelialization None Present -Tunneling No -Undermining/Tunneling No -Circular Undermining No -Exudate Amt Large -Exudate Type Serous -Wound Margin Flat & Intact -Granulation Amt Medium (34-66%) -Granulation Quality Red -Slough/Fibrin Yes -Necrosis Amt Medium (34-66%) -Necrotic Tissue Type Adherent Slough -Texture (Martha-wound Skin Appearance) Assessed Scarring -Moisture (Martha-wound Skin Appearance Assessed ) Maceration Weeping -Color (Martha-wound Skin Appearance) Assessed Erythema -Temperature (Martha-wound Skin No Abnormality Appearance) (Pt Warm) -Tenderness on Palpation (Martha-wound Yes Skin Appearance) -Ulcer Cleansing Wound Cleanser -Foul Odor after Cleansing No -Anesthetic Used 4% Lidocaine Solution [Edema Assessment] -Lower Limb Edema Present Yes -Right Calf (cm) 65.5 -Right Ankle (cm) 34.5 -Left Calf (cm) 61.5 -Left Ankle (cm) 31.5 WC - Nurse 2 - General Ulcer CM Notes Start: 01/05/19 10:24 Freq: Status: Active Protocol: Activity Type Activity Date Activity User E-Sign Co-Sign Detail Recorded Client Recorded Date Recorded By Document 01/18/19 10:48 MW [id number] 01/18/19 10:56 MW 01/18/19 10:48 Wound Center Nurse 2 [Procedure/Treatment] #8- LT POST CALF CLUSTER -Time 10:50 -Correct Patient Yes -Correct Side, Site, Position Yes -Correct Procedure Yes -Procedure Performed Yes -Type of Procedure Debridement -Clinical Debridement Subcutaneous -Post Debridement Size (cm) - Length 14.0 -Post Debridement Size (cm) - Width 9.0 -Post Debridement Size (cm) - Depth 0.2 -Total Square Cm 126.00 -Wound/Ulcer Outcome Not Healed -Ulcer Cleansing Rinsed/ Irrigated with Saline -Foul Odor after Cleansing No -Bioengineered Tissue No -Bleeding Controlled with Pressure -Offloading No -Treatment Response Procedure Tolerated Well #7- LT ENCISO -Time 10:50 -Correct Patient Yes -Correct Side, Site, Position Yes -Correct Procedure Yes -Procedure Performed Yes -Type of Procedure Debridement -Clinical Debridement Subcutaneous -Post Debridement Size (cm) - Length 4.0 -Post Debridement Size (cm) - Width 3.5 -Post Debridement Size (cm) - Depth 0.1 -Total Square Cm 14.00 -Wound/Ulcer Outcome Not Healed -Ulcer Cleansing Rinsed/ Irrigated with Saline -Foul Odor after Cleansing No -Bioengineered Tissue No -Bleeding Controlled with Pressure -Offloading No -Treatment Response Procedure Tolerated Well #6 left 2nd toe dorsal -Time 10:50 -Correct Patient Yes -Correct Side, Site, Position Yes -Correct Procedure Yes -Procedure Performed No -Post Debridement Size (cm) - Length 0 -Post Debridement Size (cm) - Width 0 -Post Debridement Size (cm) - Depth 0 -Total Square Cm 0 -Wound/Ulcer Outcome Healed- Epithelialized #1 RIGHT POSTERIOR CALF CLUSTER -Time 10:49 -Correct Patient Yes -Correct Side, Site, Position Yes -Correct Procedure Yes -Procedure Performed Yes -Type of Procedure Debridement -Clinical Debridement Subcutaneous -Post Debridement Size (cm) - Length 20.0 -Post Debridement Size (cm) - Width 16.0 -Post Debridement Size (cm) - Depth 0.1 -Total Square Cm 320.00 -Wound/Ulcer Outcome Not Healed -Ulcer Cleansing Rinsed/ Irrigated with Saline -Foul Odor after Cleansing No -Bioengineered Tissue No -Bleeding Controlled with Pressure -Offloading No -Treatment Response Procedure Tolerated Well [See Physician Procedure note for Specifics] Pain Scale: 0-10 Numeric [Pain] -Is Patient Pain Free? Yes Musculoskeletal: No Muscle Wasting Neurological: Cranial nerves II-XII grossly intact Psych/Mental Status: Normal Affect Debridement Note Post-Debridement Measurements/Treatment WC - Nurse 2 - General Ulcer CM Notes Start: 01/05/19 10:24 Freq: Status: Active Protocol: Activity Type Activity Date Activity User E-Sign Co-Sign Detail Recorded Client Recorded Date Recorded By Document 01/05/19 10:57 MW [id number] 01/05/19 11:05 MW Document 01/11/19 08:39 MW [id number] 01/11/19 08:40 MW Document 01/18/19 10:48 MW [id number] 01/18/19 10:56 MW 01/05/19 01/11/19 01/18/19 10:57 08:39 10:48 Wound Center Nurse 2 #8- LT POST CALF CLUSTER -Time 10:50 -Correct Patient Yes -Correct Side, Site, Position Yes -Correct Procedure Yes -Procedure Performed Yes -Type of Procedure Debridement -Clinical Debridement Subcutaneous -Post Debridement Size (cm) - Length 14.0 -Post Debridement Size (cm) - Width 9.0 -Post Debridement Size (cm) - Depth 0.2 -Total Square Cm 126.00 -Wound/Ulcer Outcome Not Healed -Ulcer Cleansing Rinsed/ Irrigated with Saline -Foul Odor after Cleansing No -Bioengineered Tissue No -Bleeding Controlled with Pressure -Offloading No -Treatment Response Procedure Tolerated Well #7- LT ENCISO -Time 10:59 08:39 10:50 -Correct Patient Yes Yes Yes -Correct Side, Site, Position Yes Yes Yes -Correct Procedure Yes Yes Yes -Procedure Performed Yes Yes Yes -Type of Procedure Debridement Debridement Debridement -Clinical Debridement Subcutaneous Subcutaneous Subcutaneous -Post Debridement Size (cm) - Length 1.6 2.0 4.0 -Post Debridement Size (cm) - Width 2.5 2.6 3.5 -Post Debridement Size (cm) - Depth 0.1 0.1 0.1 -Total Square Cm 4.00 5.20 14.00 -Wound/Ulcer Outcome Not Healed Not Healed Not Healed -Ulcer Cleansing Rinsed/ Rinsed/ Rinsed/ Irrigated with Irrigated with Irrigated with Saline Saline Saline -Foul Odor after Cleansing No No No -Bioengineered Tissue No No No -Bleeding Controlled with Pressure Pressure Pressure -Offloading No No No -Treatment Response Procedure Procedure Procedure Tolerated Well Tolerated Well Tolerated Well #6 left 2nd toe dorsal -Time 10:59 08:40 10:50 -Correct Patient Yes Yes Yes -Correct Side, Site, Position Yes Yes Yes -Correct Procedure Yes Yes Yes -Procedure Performed Yes Yes No -Type of Procedure Debridement Debridement -Clinical Debridement Subcutaneous Subcutaneous -Post Debridement Size (cm) - Length 0.2 0.1 0 -Post Debridement Size (cm) - Width 0.2 0.3 0 -Post Debridement Size (cm) - Depth 0.1 0.1 0 -Total Square Cm 0.04 0.03 0 -Wound/Ulcer Outcome Not Healed Not Healed Healed- Epithelialized -Ulcer Cleansing Rinsed/ Rinsed/ Irrigated with Irrigated with Saline Saline -Foul Odor after Cleansing No No -Bioengineered Tissue No No -Bleeding Controlled with Pressure Pressure -Offloading No No -Treatment Response Procedure Procedure Tolerated Well Tolerated Well #1 RIGHT POSTERIOR CALF CLUSTER -Time 10:57 08:40 10:49 -Correct Patient Yes Yes Yes -Correct Side, Site, Position Yes Yes Yes -Correct Procedure Yes Yes Yes -Procedure Performed Yes Yes Yes -Type of Procedure Debridement Debridement Debridement -Clinical Debridement Subcutaneous Subcutaneous Subcutaneous -Post Debridement Size (cm) - Length 20.0 24.0 20.0 -Post Debridement Size (cm) - Width 10.0 11.0 16.0 -Post Debridement Size (cm) - Depth 0.1 0.1 0.1 -Total Square Cm 200.00 264.00 320.00 -Wound/Ulcer Outcome Not Healed Not Healed Not Healed -Ulcer Cleansing Rinsed/ Rinsed/ Rinsed/ Irrigated with Irrigated with Irrigated with Saline Saline Saline -Foul Odor after Cleansing No No No -Bioengineered Tissue No No No -Bleeding Controlled with Pressure Pressure Pressure -Offloading No No No -Treatment Response Procedure Procedure Procedure Tolerated Well Tolerated Well Tolerated Well Pain Scale: 0-10 Numeric Is Patient Pain Free? Yes Yes Yes Wound debrided: Right lower extremity Wound Grade/Stage: Stage II Type of Debridement: Excisional debridement Anesthesia Used: 4% Lidocaine Solution Depth: Down to and including healthy tissue, in the subcutaneous layer Percentage of wound debrided: 100 Instrument Used: 5mm curette Tissue Removed: slough and devitalized tissue Severity: Fat Layer Exposed Amount of bleeding with debridement: Mild Bleeding Controlled with: Pressure Patient tolerated procedure well - Additional Wound Wound debrided: Left enciso Wound Grade/Stage: Stage II Type of Debridement: Excisional debridement Anesthesia Used: 4% Lidocaine Solution, 5% Lidocaine Gel Depth: Down to and including healthy tissue, in the subcutaneous layer Percentage of wound debrided: 100 Instrument Used: 5mm curette Tissue Removed: Slough and devitalized tissue Severity: Fat Layer Exposed Amount of bleeding with debridement: Mild Bleeding Controlled with: Pressure Patient tolerated procedure: Patient tolerated procedure well - Additional Wound Wound debrided: Left posterior cluster Wound Grade/Stage: Stage II Type of Debridement: Excisional debridement Anesthesia Used: 4% Lidocaine Solution Depth: Down to and including healthy tissue, in the subcutaneous layer Percentage of wound debrided: 100 Instrument Used: 5mm curette Tissue Removed: Slough and devitalized tissue Severity: Fat Layer Exposed Amount of bleeding with debridement: Mild Bleeding Controlled with: Pressure Patient tolerated procedure: Patient tolerated procedure well Assessment/Plan Active Problems Ulcer of right lower extremity with fat layer exposed (Chronic) Bilateral lower extremity edema (Chronic) Ulcer of left lower extremity with fat layer exposed (Chronic) Open wound of second toe of left foot (Chronic) Traumatic, Penetrating. Assessment: Same as above. Plan: Debridement done as documented above. Procedure was well-tolerated. Again worsening edema is noted both right and left lower extremity new clusters/worsening ulcers. Again spoke with her about being admitted to a NH however again declined. We did speak with a pillowcase folder and patient will get a nurse aide but not a nurse. She has no one helping with her wound care and she is unable to. She however is adamant about not going to a nursing facility. She is not compliant with compression. Continue Aquacel daily to twice daily depending on drainage. ABD over top. Worsening edema. Tried 3M however patient took it off again beacuse she did not tolerate it. Went back to Isreal wraps but she has not been complaint. Compliance with dressings very strongly recommended. Also advised that she elevate lower extremity when seated and in bed. Increased protein intake recommended. She expressed understanding. Due to poor compliance and inability to adequately care for herself prognosis for wound healing is not very encouraging. She will become complex care pending further resolution of home care situation. Her questions were answered and she was advised to call with any further questions or concerns. Follow-up in 1 week. This note was generated with [employer]iz[employer] software. It may contain incorrect words, spelling, and punctuation that were not noted in checking the note before signing.
[2019-01-25 10:11] VITALS: BP 112/68; PULSE 79; RESP 24; TEMP 36.6; BMI 73.8
--- NOTE | 2019-01-25 11:18 | PCM.WC.PN ---
(1) Open wound of second toe of left foot Status: Chronic Current Visit: Yes Code(s): S91.105A - Unspecified open wound of left lesser toe(s) without damage to nail, initial encounter Comment: Traumatic, Penetrating. (2) Ulcer of left lower extremity with fat layer exposed Status: Chronic Current Visit: Yes Code(s): L97.922 - Non-pressure chronic ulcer of unspecified part of left lower leg with fat layer exposed (3) Ulcer of right lower extremity with fat layer exposed Status: Chronic Current Visit: Yes Code(s): L97.912 - Non-pressure chronic ulcer of unspecified part of right lower leg with fat layer exposed (4) Bilateral lower extremity edema Status: Chronic Current Visit: Yes Code(s): R60.0 - Localized edema (5) Morbid obesity Status: Chronic Current Visit: No Code(s): E66.01 - Morbid (severe) obesity due to excess calories Type of Wound Chief Complaint: Right lower extremity ulcers. History of Wound: Ms. Molina is a 48-year-old who was referred to the wound center by her primary care physician due to right lower extremity ulcers. Per patient, started out with redness pain and swelling for which she was managed for cellulitis. Subsequently developed ulcerations in her calf and enciso. She feels well other at this time and denies chills, fever, nausea, vomitting or change in her bowel habit. Progress of Wound: New left lateral ulcer. Now has home health nurse who comes in daily and also in the process of getting a home health aid. - Physical Exam Vital Signs Temp Pulse Resp BP 97.8 F 79 24 H 112/68 01/25/19 10:11 01/25/19 10:11 01/25/19 10:11 01/25/19 10:11 General: Alert, Oriented x3, Cooperative, No apparent distress HEENT: Atraumatic, Normocephalic Oral: Moist Mucosa Neck: Supple Lungs: Normal air movement Abdomen: Non Tender, Obese Extremities: No cyanosis, Edema Skin: Ulcer/ Wound Wound Measurements and Assessment WC - Nurse 1 - General Ulcer Measurement Start: 01/05/19 10:24 Freq: Status: Active Protocol: Activity Type Activity Date Activity User E-Sign Co-Sign Detail Recorded Client Recorded Date Recorded By Document 01/25/19 10:11 DL [id number] 01/25/19 10:26 DL 01/25/19 10:11 Wound Center Nurse 1 [Ulcer Assessment] #8- LT POST CALF CLUSTER -Current Size (cm) - Length 7 -Current Size (cm) - Width 6 -Current Size (cm) - Depth 0.1 -Total Square Cm 42 -Photo Taken No -Exudate Amt Medium -Exudate Type Serosanguineous -Wound Margin Indistinct, Non -Visible -Granulation Amt Small (1-33%) -Granulation Quality [place] -Necrosis Amt Large (67-100%) -Necrotic Tissue Type Adherent Slough -Structure Exposed N/A -Texture (Martha-wound Skin Appearance) Scarring -Moisture (Martha-wound Skin Appearance Weeping ) -Color (Martha-wound Skin Appearance) Erythema Rubor -Temperature (Martha-wound Skin No Abnormality Appearance) (Pt Warm) -Tenderness on Palpation (Martha-wound No Skin Appearance) -Ulcer Cleansing Wound Cleanser -Foul Odor after Cleansing No -Anesthetic Used 4% Lidocaine Solution #7- LT ENCISO -Current Size (cm) - Length 3.5 -Current Size (cm) - Width 3.5 -Current Size (cm) - Depth 0.1 -Total Square Cm 12.25 -Photo Taken No -Exudate Amt Medium -Exudate Type Serosanguineous -Wound Margin Indistinct, Non -Visible -Granulation Amt Large (67-100%) -Granulation Quality Pale [place] -Necrosis Amt Small (1-33%) -Necrotic Tissue Type Adherent Slough -Structure Exposed N/A -Texture (Martha-wound Skin Appearance) Localized Edema -Moisture (Martha-wound Skin Appearance Weeping ) -Color (Martha-wound Skin Appearance) Erythema -Temperature (Martha-wound Skin No Abnormality Appearance) (Pt Warm) -Tenderness on Palpation (Martha-wound No Skin Appearance) -Ulcer Cleansing Wound Cleanser -Foul Odor after Cleansing No -Anesthetic Used 4% Lidocaine Solution #1 RIGHT POSTERIOR CALF CLUSTER -Current Size (cm) - Length 18 -Current Size (cm) - Width 14 -Current Size (cm) - Depth 0.1 -Total Square Cm 252 -Photo Taken No -Epithelialization None Present -Tunneling No -Undermining/Tunneling No -Circular Undermining No -Exudate Amt Large -Exudate Type Serosanguineous -Wound Margin Flat & Intact -Granulation Amt Medium (34-66%) -Granulation Quality Red -Slough/Fibrin Yes -Necrosis Amt Medium (34-66%) -Necrotic Tissue Type Adherent Slough -Texture (Martha-wound Skin Appearance) Scarring -Moisture (Martha-wound Skin Appearance Maceration ) Weeping -Color (Martha-wound Skin Appearance) Erythema -Temperature (Martha-wound Skin No Abnormality Appearance) (Pt Warm) -Tenderness on Palpation (Martha-wound No Skin Appearance) -Ulcer Cleansing Wound Cleanser -Foul Odor after Cleansing No -Anesthetic Used 4% Lidocaine Solution [Edema Assessment] -Lower Limb Edema Present Yes -Right Calf (cm) 64.5 -Right Ankle (cm) 33 -Left Calf (cm) 59 -Left Ankle (cm) 29 WC - Nurse 2 - General Ulcer CM Notes Start: 01/05/19 10:24 Freq: Status: Active Protocol: Activity Type Activity Date Activity User E-Sign Co-Sign Detail Recorded Client Recorded Date Recorded By Document 01/25/19 10:56 MW [id number] 01/25/19 10:59 MW 01/25/19 10:56 Wound Center Nurse 2 [Procedure/Treatment] #8- LT POST CALF CLUSTER -Time 10:56 -Correct Patient Yes -Correct Side, Site, Position Yes -Correct Procedure Yes -Procedure Performed Yes -Type of Procedure Debridement -Clinical Debridement Subcutaneous -Post Debridement Size (cm) - Length 9.0 -Post Debridement Size (cm) - Width 5.0 -Post Debridement Size (cm) - Depth 0.1 -Total Square Cm 45.00 -Wound/Ulcer Outcome Not Healed -Ulcer Cleansing Rinsed/ Irrigated with Saline -Foul Odor after Cleansing No -Bioengineered Tissue No -Bleeding Controlled with Pressure -Offloading No -Treatment Response Procedure Tolerated Well #7- LT ENCISO -Time 10:57 -Correct Patient Yes -Correct Side, Site, Position Yes -Correct Procedure Yes -Procedure Performed Yes -Type of Procedure Debridement -Clinical Debridement Subcutaneous -Post Debridement Size (cm) - Length 10.0 -Post Debridement Size (cm) - Width 9.0 -Post Debridement Size (cm) - Depth 0.1 -Total Square Cm 90.00 -Wound/Ulcer Outcome Not Healed -Ulcer Cleansing Rinsed/ Irrigated with Saline -Foul Odor after Cleansing No -Bioengineered Tissue No -Bleeding Controlled with Pressure -Offloading No -Treatment Response Procedure Tolerated Well #1 RIGHT POSTERIOR CALF CLUSTER -Time 10:57 -Correct Patient Yes -Correct Side, Site, Position Yes -Correct Procedure Yes -Procedure Performed Yes -Type of Procedure Debridement -Clinical Debridement Subcutaneous -Post Debridement Size (cm) - Length 24.0 -Post Debridement Size (cm) - Width 17.0 -Post Debridement Size (cm) - Depth 0.1 -Total Square Cm 408.00 -Wound/Ulcer Outcome Not Healed -Ulcer Cleansing Rinsed/ Irrigated with Saline -Foul Odor after Cleansing No -Bioengineered Tissue No -Bleeding Controlled with Pressure -Offloading No -Treatment Response Procedure Tolerated Well [See Physician Procedure note for Specifics] Pain Scale: 0-10 Numeric [Pain] -Is Patient Pain Free? Yes Musculoskeletal: No Muscle Wasting Neurological: Cranial nerves II-XII grossly intact Psych/Mental Status: Normal Affect Debridement Note Post-Debridement Measurements/Treatment WC - Nurse 2 - General Ulcer CM Notes Start: 01/05/19 10:24 Freq: Status: Active Protocol: Activity Type Activity Date Activity User E-Sign Co-Sign Detail Recorded Client Recorded Date Recorded By Document 01/05/19 10:57 MW [id number] 01/05/19 11:05 MW Document 01/11/19 08:39 MW [id number] 01/11/19 08:40 MW Document 01/18/19 10:48 MW [id number] 01/18/19 10:56 MW Document 01/25/19 10:56 MW [id number] 01/25/19 10:59 MW 01/05/19 01/11/19 01/18/19 10:57 08:39 10:48 Wound Center Nurse 2 #8- LT POST CALF CLUSTER -Time 10:50 -Correct Patient Yes -Correct Side, Site, Position Yes -Correct Procedure Yes -Procedure Performed Yes -Type of Procedure Debridement -Clinical Debridement Subcutaneous -Post Debridement Size (cm) - Length 14.0 -Post Debridement Size (cm) - Width 9.0 -Post Debridement Size (cm) - Depth 0.2 -Total Square Cm 126.00 -Wound/Ulcer Outcome Not Healed -Ulcer Cleansing Rinsed/ Irrigated with Saline -Foul Odor after Cleansing No -Bioengineered Tissue No -Bleeding Controlled with Pressure -Offloading No -Treatment Response Procedure Tolerated Well #7- LT ENCISO -Time 10:59 08:39 10:50 -Correct Patient Yes Yes Yes -Correct Side, Site, Position Yes Yes Yes -Correct Procedure Yes Yes Yes -Procedure Performed Yes Yes Yes -Type of Procedure Debridement Debridement Debridement -Clinical Debridement Subcutaneous Subcutaneous Subcutaneous -Post Debridement Size (cm) - Length 1.6 2.0 4.0 -Post Debridement Size (cm) - Width 2.5 2.6 3.5 -Post Debridement Size (cm) - Depth 0.1 0.1 0.1 -Total Square Cm 4.00 5.20 14.00 -Wound/Ulcer Outcome Not Healed Not Healed Not Healed -Ulcer Cleansing Rinsed/ Rinsed/ Rinsed/ Irrigated with Irrigated with Irrigated with Saline Saline Saline -Foul Odor after Cleansing No No No -Bioengineered Tissue No No No -Bleeding Controlled with Pressure Pressure Pressure -Offloading No No No -Treatment Response Procedure Procedure Procedure Tolerated Well Tolerated Well Tolerated Well #6 left 2nd toe dorsal -Time 10:59 08:40 10:50 -Correct Patient Yes Yes Yes -Correct Side, Site, Position Yes Yes Yes -Correct Procedure Yes Yes Yes -Procedure Performed Yes Yes No -Type of Procedure Debridement Debridement -Clinical Debridement Subcutaneous Subcutaneous -Post Debridement Size (cm) - Length 0.2 0.1 0 -Post Debridement Size (cm) - Width 0.2 0.3 0 -Post Debridement Size (cm) - Depth 0.1 0.1 0 -Total Square Cm 0.04 0.03 0 -Wound/Ulcer Outcome Not Healed Not Healed Healed- Epithelialized -Ulcer Cleansing Rinsed/ Rinsed/ Irrigated with Irrigated with Saline Saline -Foul Odor after Cleansing No No -Bioengineered Tissue No No -Bleeding Controlled with Pressure Pressure -Offloading No No -Treatment Response Procedure Procedure Tolerated Well Tolerated Well #1 RIGHT POSTERIOR CALF CLUSTER -Time 10:57 08:40 10:49 -Correct Patient Yes Yes Yes -Correct Side, Site, Position Yes Yes Yes -Correct Procedure Yes Yes Yes -Procedure Performed Yes Yes Yes -Type of Procedure Debridement Debridement Debridement -Clinical Debridement Subcutaneous Subcutaneous Subcutaneous -Post Debridement Size (cm) - Length 20.0 24.0 20.0 -Post Debridement Size (cm) - Width 10.0 11.0 16.0 -Post Debridement Size (cm) - Depth 0.1 0.1 0.1 -Total Square Cm 200.00 264.00 320.00 -Wound/Ulcer Outcome Not Healed Not Healed Not Healed -Ulcer Cleansing Rinsed/ Rinsed/ Rinsed/ Irrigated with Irrigated with Irrigated with Saline Saline Saline -Foul Odor after Cleansing No No No -Bioengineered Tissue No No No -Bleeding Controlled with Pressure Pressure Pressure -Offloading No No No -Treatment Response Procedure Procedure Procedure Tolerated Well Tolerated Well Tolerated Well Pain Scale: 0-10 Numeric Is Patient Pain Free? Yes Yes Yes 01/25/19 10:56 Wound Center Nurse 2 #8- LT POST CALF CLUSTER -Time 10:56 -Correct Patient Yes -Correct Side, Site, Position Yes -Correct Procedure Yes -Procedure Performed Yes -Type of Procedure Debridement -Clinical Debridement Subcutaneous -Post Debridement Size (cm) - Length 9.0 -Post Debridement Size (cm) - Width 5.0 -Post Debridement Size (cm) - Depth 0.1 -Total Square Cm 45.00 -Wound/Ulcer Outcome Not Healed -Ulcer Cleansing Rinsed/ Irrigated with Saline -Foul Odor after Cleansing No -Bioengineered Tissue No -Bleeding Controlled with Pressure -Offloading No -Treatment Response Procedure Tolerated Well #7- LT ENCISO -Time 10:57 -Correct Patient Yes -Correct Side, Site, Position Yes -Correct Procedure Yes -Procedure Performed Yes -Type of Procedure Debridement -Clinical Debridement Subcutaneous -Post Debridement Size (cm) - Length 10.0 -Post Debridement Size (cm) - Width 9.0 -Post Debridement Size (cm) - Depth 0.1 -Total Square Cm 90.00 -Wound/Ulcer Outcome Not Healed -Ulcer Cleansing Rinsed/ Irrigated with Saline -Foul Odor after Cleansing No -Bioengineered Tissue No -Bleeding Controlled with Pressure -Offloading No -Treatment Response Procedure Tolerated Well #6 left 2nd toe dorsal -Time -Correct Patient -Correct Side, Site, Position -Correct Procedure -Procedure Performed -Type of Procedure -Clinical Debridement -Post Debridement Size (cm) - Length -Post Debridement Size (cm) - Width -Post Debridement Size (cm) - Depth -Total Square Cm -Wound/Ulcer Outcome -Ulcer Cleansing -Foul Odor after Cleansing -Bioengineered Tissue -Bleeding Controlled with -Offloading -Treatment Response #1 RIGHT POSTERIOR CALF CLUSTER -Time 10:57 -Correct Patient Yes -Correct Side, Site, Position Yes -Correct Procedure Yes -Procedure Performed Yes -Type of Procedure Debridement -Clinical Debridement Subcutaneous -Post Debridement Size (cm) - Length 24.0 -Post Debridement Size (cm) - Width 17.0 -Post Debridement Size (cm) - Depth 0.1 -Total Square Cm 408.00 -Wound/Ulcer Outcome Not Healed -Ulcer Cleansing Rinsed/ Irrigated with Saline -Foul Odor after Cleansing No -Bioengineered Tissue No -Bleeding Controlled with Pressure -Offloading No -Treatment Response Procedure Tolerated Well Pain Scale: 0-10 Numeric Is Patient Pain Free? Yes Wound debrided: Left Enciso Cluster Wound Grade/Stage: Stage II Type of Debridement: Excisional debridement Anesthesia Used: 4% Lidocaine Solution Depth: Down to and including healthy tissue, in the subcutaneous layer Percentage of wound debrided: 100 Instrument Used: 5mm curette Tissue Removed: Slough and devitalized tissue Severity: Fat Layer Exposed Amount of bleeding with debridement: Mild Bleeding Controlled with: Pressure Patient tolerated procedure well - Additional Wound Wound debrided: Left lower extremity ( Posterior Cluster ) Wound Grade/Stage: Stage II Type of Debridement: Excisional debridement Anesthesia Used: 4% Lidocaine Solution Depth: Down to and including healthy tissue, in the subcutaneous layer Percentage of wound debrided: 100 Instrument Used: 5mm curette Tissue Removed: Slough and devitalized tissue Severity: Fat Layer Exposed Amount of bleeding with debridement: Mild Bleeding Controlled with: Pressure Patient tolerated procedure: Patient tolerated procedure well - Additional Wound Wound debrided: Right lower extremity posterior cluster Wound Grade/Stage: Stage II Type of Debridement: Excisional debridement Anesthesia Used: 4% Lidocaine Solution Depth: Down to and including healthy tissue, in the subcutaneous layer Percentage of wound debrided: 100 Instrument Used: 5mm curette Tissue Removed: Slough and devitalized tissue Severity: Fat Layer Exposed Amount of bleeding with debridement: Mild Bleeding Controlled with: Pressure Patient tolerated procedure: Patient tolerated procedure well Assessment/Plan Active Problems Ulcer of right lower extremity with fat layer exposed (Chronic) Bilateral lower extremity edema (Chronic) Ulcer of left lower extremity with fat layer exposed (Chronic) Open wound of second toe of left foot (Chronic) Traumatic, Penetrating. Assessment: Same as above. Plan: Debridement done as documented above. Procedure was well-tolerated. Now has a HHN coming in daily. also in the process of getting a [employer]NAGER [employer]. Continue Aquacel daily to twice daily depending on drainage. Also advised that she elevate lower extremity when seated and in bed. Increased protein intake recommended. She expressed understanding. Daily ric wraps for edema management. Due to poor compliance and inability to adequately care for herself prognosis for wound healing is not very encouraging. She will become complex care pending further resolution of home care situation. Her questions were answered and she was advised to call with any further questions or concerns. Follow-up in 1 week. This note was generated with [employer] dictation software. It may contain incorrect words, spelling, and punctuation that were not noted in checking the note before signing.
--- NOTE | 2019-01-25 11:23 | PN.PCM_ITS ---
(1) Open wound of second toe of left foot Status: Chronic Current Visit: Yes Code(s): S91.105A - Unspecified open wound of left lesser toe(s) without damage to nail, initial encounter Comment: Traumatic, Penetrating. (2) Ulcer of left lower extremity with fat layer exposed Status: Chronic Current Visit: Yes Code(s): L97.922 - Non-pressure chronic ulcer of unspecified part of left lower leg with fat layer exposed (3) Ulcer of right lower extremity with fat layer exposed Status: Chronic Current Visit: Yes Code(s): L97.912 - Non-pressure chronic ulcer of unspecified part of right lower leg with fat layer exposed (4) Bilateral lower extremity edema Status: Chronic Current Visit: Yes Code(s): R60.0 - Localized edema (5) Morbid obesity Status: Chronic Current Visit: No Code(s): E66.01 - Morbid (severe) obesity due to excess calories Type of Wound Chief Complaint: Right lower extremity ulcers. History of Wound: Ms. Molina is a 48-year-old who was referred to the wound center by her primary care physician due to right lower extremity ulcers. Per patient, started out with redness pain and swelling for which she was managed for cellulitis. Subsequently developed ulcerations in her calf and enciso. She feels well other at this time and denies chills, fever, nausea, vomitting or change in her bowel habit. Progress of Wound: New left lateral ulcer. Now has home health nurse who comes in daily and also in the process of getting a home health aid. - Physical Exam Vital Signs Temp Pulse Resp BP 97.8 F 79 24 H 112/68 01/25/19 10:11 01/25/19 10:11 01/25/19 10:11 01/25/19 10:11 General: Alert, Oriented x3, Cooperative, No apparent distress HEENT: Atraumatic, Normocephalic Oral: Moist Mucosa Neck: Supple Lungs: Normal air movement Abdomen: Non Tender, Obese Extremities: No cyanosis, Edema Skin: Ulcer/ Wound Wound Measurements and Assessment WC - Nurse 1 - General Ulcer Measurement Start: 01/05/19 10:24 Freq: Status: Active Protocol: Activity Type Activity Date Activity User E-Sign Co-Sign Detail Recorded Client Recorded Date Recorded By Document 01/25/19 10:11 DL [id number] 01/25/19 10:26 DL 01/25/19 10:11 Wound Center Nurse 1 [Ulcer Assessment] #8- LT POST CALF CLUSTER -Current Size (cm) - Length 7 -Current Size (cm) - Width 6 -Current Size (cm) - Depth 0.1 -Total Square Cm 42 -Photo Taken No -Exudate Amt Medium -Exudate Type Serosanguineous -Wound Margin Indistinct, Non -Visible -Granulation Amt Small (1-33%) -Granulation Quality Wellman -Necrosis Amt Large (67-100%) -Necrotic Tissue Type Adherent Slough -Structure Exposed N/A -Texture (Martha-wound Skin Appearance) Scarring -Moisture (Martha-wound Skin Appearance Weeping ) -Color (Martha-wound Skin Appearance) Erythema Rubor -Temperature (Martha-wound Skin No Abnormality Appearance) (Pt Warm) -Tenderness on Palpation (Martha-wound No Skin Appearance) -Ulcer Cleansing Wound Cleanser -Foul Odor after Cleansing No -Anesthetic Used 4% Lidocaine Solution #7- LT ENCISO -Current Size (cm) - Length 3.5 -Current Size (cm) - Width 3.5 -Current Size (cm) - Depth 0.1 -Total Square Cm 12.25 -Photo Taken No -Exudate Amt Medium -Exudate Type Serosanguineous -Wound Margin Indistinct, Non -Visible -Granulation Amt Large (67-100%) -Granulation Quality Pale Wellman -Necrosis Amt Small (1-33%) -Necrotic Tissue Type Adherent Slough -Structure Exposed N/A -Texture (Martha-wound Skin Appearance) Localized Edema -Moisture (Martha-wound Skin Appearance Weeping ) -Color (Martha-wound Skin Appearance) Erythema -Temperature (Martha-wound Skin No Abnormality Appearance) (Pt Warm) -Tenderness on Palpation (Martha-wound No Skin Appearance) -Ulcer Cleansing Wound Cleanser -Foul Odor after Cleansing No -Anesthetic Used 4% Lidocaine Solution #1 RIGHT POSTERIOR CALF CLUSTER -Current Size (cm) - Length 18 -Current Size (cm) - Width 14 -Current Size (cm) - Depth 0.1 -Total Square Cm 252 -Photo Taken No -Epithelialization None Present -Tunneling No -Undermining/Tunneling No -Circular Undermining No -Exudate Amt Large -Exudate Type Serosanguineous -Wound Margin Flat & Intact -Granulation Amt Medium (34-66%) -Granulation Quality Red -Slough/Fibrin Yes -Necrosis Amt Medium (34-66%) -Necrotic Tissue Type Adherent Slough -Texture (Martha-wound Skin Appearance) Scarring -Moisture (Martha-wound Skin Appearance Maceration ) Weeping -Color (Martha-wound Skin Appearance) Erythema -Temperature (Martha-wound Skin No Abnormality Appearance) (Pt Warm) -Tenderness on Palpation (Martha-wound No Skin Appearance) -Ulcer Cleansing Wound Cleanser -Foul Odor after Cleansing No -Anesthetic Used 4% Lidocaine Solution [Edema Assessment] -Lower Limb Edema Present Yes -Right Calf (cm) 64.5 -Right Ankle (cm) 33 -Left Calf (cm) 59 -Left Ankle (cm) 29 WC - Nurse 2 - General Ulcer CM Notes Start: 01/05/19 10:24 Freq: Status: Active Protocol: Activity Type Activity Date Activity User E-Sign Co-Sign Detail Recorded Client Recorded Date Recorded By Document 01/25/19 10:56 MW [id number] 01/25/19 10:59 MW 01/25/19 10:56 Wound Center Nurse 2 [Procedure/Treatment] #8- LT POST CALF CLUSTER -Time 10:56 -Correct Patient Yes -Correct Side, Site, Position Yes -Correct Procedure Yes -Procedure Performed Yes -Type of Procedure Debridement -Clinical Debridement Subcutaneous -Post Debridement Size (cm) - Length 9.0 -Post Debridement Size (cm) - Width 5.0 -Post Debridement Size (cm) - Depth 0.1 -Total Square Cm 45.00 -Wound/Ulcer Outcome Not Healed -Ulcer Cleansing Rinsed/ Irrigated with Saline -Foul Odor after Cleansing No -Bioengineered Tissue No -Bleeding Controlled with Pressure -Offloading No -Treatment Response Procedure Tolerated Well #7- LT ENCISO -Time 10:57 -Correct Patient Yes -Correct Side, Site, Position Yes -Correct Procedure Yes -Procedure Performed Yes -Type of Procedure Debridement -Clinical Debridement Subcutaneous -Post Debridement Size (cm) - Length 10.0 -Post Debridement Size (cm) - Width 9.0 -Post Debridement Size (cm) - Depth 0.1 -Total Square Cm 90.00 -Wound/Ulcer Outcome Not Healed -Ulcer Cleansing Rinsed/ Irrigated with Saline -Foul Odor after Cleansing No -Bioengineered Tissue No -Bleeding Controlled with Pressure -Offloading No -Treatment Response Procedure Tolerated Well #1 RIGHT POSTERIOR CALF CLUSTER -Time 10:57 -Correct Patient Yes -Correct Side, Site, Position Yes -Correct Procedure Yes -Procedure Performed Yes -Type of Procedure Debridement -Clinical Debridement Subcutaneous -Post Debridement Size (cm) - Length 24.0 -Post Debridement Size (cm) - Width 17.0 -Post Debridement Size (cm) - Depth 0.1 -Total Square Cm 408.00 -Wound/Ulcer Outcome Not Healed -Ulcer Cleansing Rinsed/ Irrigated with Saline -Foul Odor after Cleansing No -Bioengineered Tissue No -Bleeding Controlled with Pressure -Offloading No -Treatment Response Procedure Tolerated Well [See Physician Procedure note for Specifics] Pain Scale: 0-10 Numeric [Pain] -Is Patient Pain Free? Yes Musculoskeletal: No Muscle Wasting Neurological: Cranial nerves II-XII grossly intact Psych/Mental Status: Normal Affect Debridement Note Post-Debridement Measurements/Treatment WC - Nurse 2 - General Ulcer CM Notes Start: 01/05/19 10:24 Freq: Status: Active Protocol: Activity Type Activity Date Activity User E-Sign Co-Sign Detail Recorded Client Recorded Date Recorded By Document 01/05/19 10:57 MW [id number] 01/05/19 11:05 MW Document 01/11/19 08:39 MW [id number] 01/11/19 08:40 MW Document 01/18/19 10:48 MW [id number] 01/18/19 10:56 MW Document 01/25/19 10:56 MW [id number] 01/25/19 10:59 MW 01/05/19 01/11/19 01/18/19 10:57 08:39 10:48 Wound Center Nurse 2 #8- LT POST CALF CLUSTER -Time 10:50 -Correct Patient Yes -Correct Side, Site, Position Yes -Correct Procedure Yes -Procedure Performed Yes -Type of Procedure Debridement -Clinical Debridement Subcutaneous -Post Debridement Size (cm) - Length 14.0 -Post Debridement Size (cm) - Width 9.0 -Post Debridement Size (cm) - Depth 0.2 -Total Square Cm 126.00 -Wound/Ulcer Outcome Not Healed -Ulcer Cleansing Rinsed/ Irrigated with Saline -Foul Odor after Cleansing No -Bioengineered Tissue No -Bleeding Controlled with Pressure -Offloading No -Treatment Response Procedure Tolerated Well #7- LT ENCISO -Time 10:59 08:39 10:50 -Correct Patient Yes Yes Yes -Correct Side, Site, Position Yes Yes Yes -Correct Procedure Yes Yes Yes -Procedure Performed Yes Yes Yes -Type of Procedure Debridement Debridement Debridement -Clinical Debridement Subcutaneous Subcutaneous Subcutaneous -Post Debridement Size (cm) - Length 1.6 2.0 4.0 -Post Debridement Size (cm) - Width 2.5 2.6 3.5 -Post Debridement Size (cm) - Depth 0.1 0.1 0.1 -Total Square Cm 4.00 5.20 14.00 -Wound/Ulcer Outcome Not Healed Not Healed Not Healed -Ulcer Cleansing Rinsed/ Rinsed/ Rinsed/ Irrigated with Irrigated with Irrigated with Saline Saline Saline -Foul Odor after Cleansing No No No -Bioengineered Tissue No No No -Bleeding Controlled with Pressure Pressure Pressure -Offloading No No No -Treatment Response Procedure Procedure Procedure Tolerated Well Tolerated Well Tolerated Well #6 left 2nd toe dorsal -Time 10:59 08:40 10:50 -Correct Patient Yes Yes Yes -Correct Side, Site, Position Yes Yes Yes -Correct Procedure Yes Yes Yes -Procedure Performed Yes Yes No -Type of Procedure Debridement Debridement -Clinical Debridement Subcutaneous Subcutaneous -Post Debridement Size (cm) - Length 0.2 0.1 0 -Post Debridement Size (cm) - Width 0.2 0.3 0 -Post Debridement Size (cm) - Depth 0.1 0.1 0 -Total Square Cm 0.04 0.03 0 -Wound/Ulcer Outcome Not Healed Not Healed Healed- Epithelialized -Ulcer Cleansing Rinsed/ Rinsed/ Irrigated with Irrigated with Saline Saline -Foul Odor after Cleansing No No -Bioengineered Tissue No No -Bleeding Controlled with Pressure Pressure -Offloading No No -Treatment Response Procedure Procedure Tolerated Well Tolerated Well #1 RIGHT POSTERIOR CALF CLUSTER -Time 10:57 08:40 10:49 -Correct Patient Yes Yes Yes -Correct Side, Site, Position Yes Yes Yes -Correct Procedure Yes Yes Yes -Procedure Performed Yes Yes Yes -Type of Procedure Debridement Debridement Debridement -Clinical Debridement Subcutaneous Subcutaneous Subcutaneous -Post Debridement Size (cm) - Length 20.0 24.0 20.0 -Post Debridement Size (cm) - Width 10.0 11.0 16.0 -Post Debridement Size (cm) - Depth 0.1 0.1 0.1 -Total Square Cm 200.00 264.00 320.00 -Wound/Ulcer Outcome Not Healed Not Healed Not Healed -Ulcer Cleansing Rinsed/ Rinsed/ Rinsed/ Irrigated with Irrigated with Irrigated with Saline Saline Saline -Foul Odor after Cleansing No No No -Bioengineered Tissue No No No -Bleeding Controlled with Pressure Pressure Pressure -Offloading No No No -Treatment Response Procedure Procedure Procedure Tolerated Well Tolerated Well Tolerated Well Pain Scale: 0-10 Numeric Is Patient Pain Free? Yes Yes Yes 01/25/19 10:56 Wound Center Nurse 2 #8- LT POST CALF CLUSTER -Time 10:56 -Correct Patient Yes -Correct Side, Site, Position Yes -Correct Procedure Yes -Procedure Performed Yes -Type of Procedure Debridement -Clinical Debridement Subcutaneous -Post Debridement Size (cm) - Length 9.0 -Post Debridement Size (cm) - Width 5.0 -Post Debridement Size (cm) - Depth 0.1 -Total Square Cm 45.00 -Wound/Ulcer Outcome Not Healed -Ulcer Cleansing Rinsed/ Irrigated with Saline -Foul Odor after Cleansing No -Bioengineered Tissue No -Bleeding Controlled with Pressure -Offloading No -Treatment Response Procedure Tolerated Well #7- LT ENCISO -Time 10:57 -Correct Patient Yes -Correct Side, Site, Position Yes -Correct Procedure Yes -Procedure Performed Yes -Type of Procedure Debridement -Clinical Debridement Subcutaneous -Post Debridement Size (cm) - Length 10.0 -Post Debridement Size (cm) - Width 9.0 -Post Debridement Size (cm) - Depth 0.1 -Total Square Cm 90.00 -Wound/Ulcer Outcome Not Healed -Ulcer Cleansing Rinsed/ Irrigated with Saline -Foul Odor after Cleansing No -Bioengineered Tissue No -Bleeding Controlled with Pressure -Offloading No -Treatment Response Procedure Tolerated Well #6 left 2nd toe dorsal -Time -Correct Patient -Correct Side, Site, Position -Correct Procedure -Procedure Performed -Type of Procedure -Clinical Debridement -Post Debridement Size (cm) - Length -Post Debridement Size (cm) - Width -Post Debridement Size (cm) - Depth -Total Square Cm -Wound/Ulcer Outcome -Ulcer Cleansing -Foul Odor after Cleansing -Bioengineered Tissue -Bleeding Controlled with -Offloading -Treatment Response #1 RIGHT POSTERIOR CALF CLUSTER -Time 10:57 -Correct Patient Yes -Correct Side, Site, Position Yes -Correct Procedure Yes -Procedure Performed Yes -Type of Procedure Debridement -Clinical Debridement Subcutaneous -Post Debridement Size (cm) - Length 24.0 -Post Debridement Size (cm) - Width 17.0 -Post Debridement Size (cm) - Depth 0.1 -Total Square Cm 408.00 -Wound/Ulcer Outcome Not Healed -Ulcer Cleansing Rinsed/ Irrigated with Saline -Foul Odor after Cleansing No -Bioengineered Tissue No -Bleeding Controlled with Pressure -Offloading No -Treatment Response Procedure Tolerated Well Pain Scale: 0-10 Numeric Is Patient Pain Free? Yes Wound debrided: Left Enciso Cluster Wound Grade/Stage: Stage II Type of Debridement: Excisional debridement Anesthesia Used: 4% Lidocaine Solution Depth: Down to and including healthy tissue, in the subcutaneous layer Percentage of wound debrided: 100 Instrument Used: 5mm curette Tissue Removed: Slough and devitalized tissue Severity: Fat Layer Exposed Amount of bleeding with debridement: Mild Bleeding Controlled with: Pressure Patient tolerated procedure well - Additional Wound Wound debrided: Left lower extremity ( Posterior Cluster ) Wound Grade/Stage: Stage II Type of Debridement: Excisional debridement Anesthesia Used: 4% Lidocaine Solution Depth: Down to and including healthy tissue, in the subcutaneous layer Percentage of wound debrided: 100 Instrument Used: 5mm curette Tissue Removed: Slough and devitalized tissue Severity: Fat Layer Exposed Amount of bleeding with debridement: Mild Bleeding Controlled with: Pressure Patient tolerated procedure: Patient tolerated procedure well - Additional Wound Wound debrided: Right lower extremity posterior cluster Wound Grade/Stage: Stage II Type of Debridement: Excisional debridement Anesthesia Used: 4% Lidocaine Solution Depth: Down to and including healthy tissue, in the subcutaneous layer Percentage of wound debrided: 100 Instrument Used: 5mm curette Tissue Removed: Slough and devitalized tissue Severity: Fat Layer Exposed Amount of bleeding with debridement: Mild Bleeding Controlled with: Pressure Patient tolerated procedure: Patient tolerated procedure well Assessment/Plan Active Problems Ulcer of right lower extremity with fat layer exposed (Chronic) Bilateral lower extremity edema (Chronic) Ulcer of left lower extremity with fat layer exposed (Chronic) Open wound of second toe of left foot (Chronic) Traumatic, Penetrating. Assessment: Same as above. Plan: Debridement done as documented above. Procedure was well-tolerated. Now has a HHN coming in daily. 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 Continue Aquacel daily to twice daily depending on drainage. Also advised that she elevate lower extremity when seated and in bed. Increased protein intake recommended. She expressed understanding. Daily ric wraps for edema management. Due to poor compliance and inability to adequately care for herself prognosis for wound healing is not very encouraging. She will become complex care pending further resolution of home care situation. Her questions were answered and she was advised to call with any further questions or concerns. Follow-up in 1 week. This note was generated with [employer] dictation software. It may contain incorrect words, spelling, and punctuation that were not noted in checking the note before signing.
== END 2019-01-31 23:59 ==
LOC: WC 10:15
PROVIDERS: Family Provider Family Medicine; PCP Family Medicine; Visit Provider Internal Medicine
DX: L97.212 Non-pressure chronic ulcer of right calf with fat layer exposed (principal); E66.01 Morbid (severe) obesity due to excess calories; Z71.3 Dietary counseling and surveillance; R60.0 Localized edema; L97.822 Non-pressure chronic ulcer of other part of left lower leg with fat layer exposed; S91.135A Puncture wound without foreign body of left lesser toe(s) without damage to nail, initial encounter; X58.XXXA Exposure to other specified factors, initial encounter; Z68.45 Body mass index [BMI] 70 or greater, adult
CPT/HCPCS: 11042; 11045

== ENCOUNTER 2019-02-22 10:30 | Outpatient (RCR) | payer MEDICARE, MEDICAID, SELFPAY ==
[2019-02-01 01:17] VITALS: BP 112/68; PULSE 79; RESP 24; TEMP 36.6
[2019-02-01 10:28] VITALS: BP 128/77; PULSE 70; RESP 18; TEMP 36.1; BMI 73.8
--- NOTE | 2019-02-01 12:36 | PN.PCM_ITS ---
(1) Ulcer of right heel Status: Acute Current Visit: Yes Qualifiers: Non-pressure ulcer stage: with fat layer exposed Qualified Code(s): L97.412 - Non-pressure chronic ulcer of right heel and midfoot with fat layer exposed Code(s): L97.419 - Non-pressure chronic ulcer of right heel and midfoot with unspecified severity (2) Bilateral lower extremity edema Status: Chronic Current Visit: Yes Code(s): R60.0 - Localized edema (3) Ulcer of left lower extremity with fat layer exposed Status: Chronic Current Visit: Yes Code(s): L97.922 - Non-pressure chronic ulcer of unspecified part of left lower leg with fat layer exposed (4) Ulcer of right lower extremity with fat layer exposed Status: Chronic Current Visit: Yes Code(s): L97.912 - Non-pressure chronic ulcer of unspecified part of right lower leg with fat layer exposed (5) Morbid obesity Status: Chronic Current Visit: No Code(s): E66.01 - Morbid (severe) obesity due to excess calories Type of Wound Chief Complaint: Right lower extremity ulcers. History of Wound: Ms. Molina is a 48-year-old who was referred to the wound center by her primary care physician due to right lower extremity ulcers. Per patient, started out with redness pain and swelling for which she was managed for cellulitis. Subsequently developed ulcerations in her calf and enciso. She feels well other at this time and denies chills, fever, nausea, vomitting or change in her bowel habit. Progress of Wound: Old ulcers look better. Now has a nurse come in twice daily to help with dressing and home cre. New right heel ulcer noted during the past week. - Physical Exam Vital Signs Temp Pulse Resp BP 97 F L 70 18 128/77 H 02/01/19 10:28 02/01/19 10:28 02/01/19 10:28 02/01/19 10:28 General: Alert, Oriented x3, Cooperative, No apparent distress HEENT: Atraumatic, Normocephalic Oral: Moist Mucosa Neck: Supple Lungs: Normal air movement Abdomen: Non Tender, Obese Extremities: No cyanosis, Edema Skin: Ulcer/ Wound Wound Measurements and Assessment WC - Nurse 1 - General Ulcer Measurement Start: 02/01/19 10:21 Freq: Status: Active Protocol: Activity Type Activity Date Activity User E-Sign Co-Sign Detail Recorded Client Recorded Date Recorded By Document 02/01/19 10:28 RB [id number] 02/01/19 10:40 RB 02/01/19 10:28 Wound Center Nurse 1 [Ulcer Assessment] #8- LT POST CALF CLUSTER -Combined with other wound No -Current Size (cm) - Length 13.5 -Current Size (cm) - Width 10.5 -Current Size (cm) - Depth 0.1 -Total Square Cm 141.75 -Tunneling No -Undermining/Tunneling No -Circular Undermining No -Exudate Amt Large -Exudate Type Serosanguineous -Wound Margin Distinct, Outline Attached -Granulation Amt Large (67-100%) -Granulation Quality [place] -Slough/Fibrin Yes -Necrosis Amt Medium (34-66%) -Necrotic Tissue Type Adherent Slough -Structure Exposed N/A -Texture (Martha-wound Skin Appearance) Assessed Excoriation -Moisture (Martha-wound Skin Appearance Assessed ) -Color (Martha-wound Skin Appearance) Assessed -Temperature (Martha-wound Skin No Abnormality Appearance) (Pt Warm) -Tenderness on Palpation (Martha-wound No Skin Appearance) -Ulcer Cleansing Wound Cleanser -Foul Odor after Cleansing No -Anesthetic Used 4% Lidocaine Solution #7- LT ENCISO -Combined with other wound No -Current Size (cm) - Length 8 -Current Size (cm) - Width 6.5 -Current Size (cm) - Depth 0.1 -Total Square Cm 52.0 -Tunneling No -Undermining/Tunneling No -Circular Undermining No -Exudate Amt Medium -Exudate Type Serosanguineous -Wound Margin Distinct, Outline Attached -Granulation Amt Large (67-100%) -Granulation Quality [place]ott -Slough/Fibrin Yes -Necrosis Amt Small (1-33%) -Necrotic Tissue Type Adherent Slough -Structure Exposed N/A -Texture (Martha-wound Skin Appearance) Assessed -Moisture (Martha-wound Skin Appearance Assessed ) -Color (Martha-wound Skin Appearance) Assessed -Temperature (Martha-wound Skin No Abnormality Appearance) (Pt Warm) -Tenderness on Palpation (Martha-wound No Skin Appearance) -Ulcer Cleansing Wound Cleanser -Foul Odor after Cleansing No -Anesthetic Used 4% Lidocaine Solution #1 RIGHT POSTERIOR CALF CLUSTER -Combined with other wound No -Current Size (cm) - Length 19 -Current Size (cm) - Width 15.5 -Current Size (cm) - Depth 0.1 -Total Square Cm 294.5 -Photo Taken No -Tunneling No -Undermining/Tunneling No -Circular Undermining No -Exudate Amt Large -Exudate Type Serosanguineous -Wound Margin Distinct, Outline Attached -Granulation Amt Large (67-100%) -Granulation Quality [place] -Slough/Fibrin Yes -Necrosis Amt Small (1-33%) -Necrotic Tissue Type Adherent Slough -Structure Exposed N/A -Texture (Martha-wound Skin Appearance) Assessed Excoriation -Moisture (Martha-wound Skin Appearance Assessed ) -Color (Martha-wound Skin Appearance) Assessed -Temperature (Martha-wound Skin No Abnormality Appearance) (Pt Warm) -Tenderness on Palpation (Martha-wound No Skin Appearance) -Ulcer Cleansing Wound Cleanser -Foul Odor after Cleansing No -Anesthetic Used 4% Lidocaine Solution [Edema Assessment] -Lower Limb Edema Present Yes -Right Calf (cm) 69 -Right Ankle (cm) 31.5 -Left Calf (cm) 62.5 -Left Ankle (cm) 29.3 WC - Nurse 2 - General Ulcer CM Notes Start: 02/01/19 10:21 Freq: Status: Active Protocol: Activity Type Activity Date Activity User E-Sign Co-Sign Detail Recorded Client Recorded Date Recorded By Document 02/01/19 11:17 MW [id number] 02/01/19 11:28 MW 02/01/19 11:17 Wound Center Nurse 2 [Procedure/Treatment] # 9 right heel -Time 11:22 -Correct Patient Yes -Correct Side, Site, Position Yes -Correct Procedure Yes -Procedure Performed Yes -Type of Procedure Debridement -Clinical Debridement Subcutaneous -Post Debridement Size (cm) - Length 1.0 -Post Debridement Size (cm) - Width 0.5 -Post Debridement Size (cm) - Depth 0.1 -Total Square Cm 0.50 -Wound/Ulcer Outcome Not Healed -Ulcer Cleansing Rinsed/ Irrigated with Saline -Foul Odor after Cleansing No -Bioengineered Tissue No -Bleeding Controlled with Pressure -Offloading No -Treatment Response Procedure Tolerated Well #8- LT POST CALF CLUSTER -Time 11:19 -Correct Patient Yes -Correct Side, Site, Position Yes -Correct Procedure Yes -Procedure Performed Yes -Type of Procedure Debridement -Clinical Debridement Subcutaneous -Post Debridement Size (cm) - Length 12.0 -Post Debridement Size (cm) - Width 7.0 -Post Debridement Size (cm) - Depth 0.1 -Total Square Cm 84.00 -Wound/Ulcer Outcome Not Healed -Ulcer Cleansing Rinsed/ Irrigated with Saline -Foul Odor after Cleansing No -Bioengineered Tissue No -Bleeding Controlled with Pressure -Offloading No -Treatment Response Procedure Tolerated Well #7- LT ENCISO -Time 11:19 -Correct Patient Yes -Correct Side, Site, Position Yes -Correct Procedure Yes -Procedure Performed Yes -Type of Procedure Debridement -Clinical Debridement Subcutaneous -Post Debridement Size (cm) - Length 8.0 -Post Debridement Size (cm) - Width 7.5 -Post Debridement Size (cm) - Depth 0.1 -Total Square Cm 60.00 -Wound/Ulcer Outcome Not Healed -Ulcer Cleansing Rinsed/ Irrigated with Saline -Foul Odor after Cleansing No -Bioengineered Tissue No -Bleeding Controlled with Pressure -Offloading No -Treatment Response Procedure Tolerated Well #1 RIGHT POSTERIOR CALF CLUSTER -Time 11:18 -Correct Patient Yes -Correct Side, Site, Position Yes -Correct Procedure Yes -Procedure Performed Yes -Type of Procedure Debridement -Clinical Debridement Subcutaneous -Post Debridement Size (cm) - Length 18.0 -Post Debridement Size (cm) - Width 13.0 -Post Debridement Size (cm) - Depth 0.1 -Total Square Cm 234.00 -Wound/Ulcer Outcome Not Healed -Ulcer Cleansing Rinsed/ Irrigated with Saline -Foul Odor after Cleansing No -Bioengineered Tissue No -Bleeding Controlled with Pressure -Offloading No -Treatment Response Procedure Tolerated Well [See Physician Procedure note for Specifics] Pain Scale: 0-10 Numeric [Pain] -Is Patient Pain Free? Yes Musculoskeletal: No Muscle Wasting Neurological: Cranial nerves II-XII grossly intact Psych/Mental Status: Normal Affect Debridement Note Post-Debridement Measurements/Treatment WC - Nurse 2 - General Ulcer CM Notes Start: 02/01/19 10:21 Freq: Status: Active Protocol: Activity Type Activity Date Activity User E-Sign Co-Sign Detail Recorded Client Recorded Date Recorded By Document 02/01/19 11:17 MW [id number] 02/01/19 11:28 MW 02/01/19 11:17 Wound Center Nurse 2 # 9 right heel -Time 11:22 -Correct Patient Yes -Correct Side, Site, Position Yes -Correct Procedure Yes -Procedure Performed Yes -Type of Procedure Debridement -Clinical Debridement Subcutaneous -Post Debridement Size (cm) - Length 1.0 -Post Debridement Size (cm) - Width 0.5 -Post Debridement Size (cm) - Depth 0.1 -Total Square Cm 0.50 -Wound/Ulcer Outcome Not Healed -Ulcer Cleansing Rinsed/ Irrigated with Saline -Foul Odor after Cleansing No -Bioengineered Tissue No -Bleeding Controlled with Pressure -Offloading No -Treatment Response Procedure Tolerated Well #8- LT POST CALF CLUSTER -Time 11:19 -Correct Patient Yes -Correct Side, Site, Position Yes -Correct Procedure Yes -Procedure Performed Yes -Type of Procedure Debridement -Clinical Debridement Subcutaneous -Post Debridement Size (cm) - Length 12.0 -Post Debridement Size (cm) - Width 7.0 -Post Debridement Size (cm) - Depth 0.1 -Total Square Cm 84.00 -Wound/Ulcer Outcome Not Healed -Ulcer Cleansing Rinsed/ Irrigated with Saline -Foul Odor after Cleansing No -Bioengineered Tissue No -Bleeding Controlled with Pressure -Offloading No -Treatment Response Procedure Tolerated Well #7- LT ENCISO -Time 11:19 -Correct Patient Yes -Correct Side, Site, Position Yes -Correct Procedure Yes -Procedure Performed Yes -Type of Procedure Debridement -Clinical Debridement Subcutaneous -Post Debridement Size (cm) - Length 8.0 -Post Debridement Size (cm) - Width 7.5 -Post Debridement Size (cm) - Depth 0.1 -Total Square Cm 60.00 -Wound/Ulcer Outcome Not Healed -Ulcer Cleansing Rinsed/ Irrigated with Saline -Foul Odor after Cleansing No -Bioengineered Tissue No -Bleeding Controlled with Pressure -Offloading No -Treatment Response Procedure Tolerated Well #1 RIGHT POSTERIOR CALF CLUSTER -Time 11:18 -Correct Patient Yes -Correct Side, Site, Position Yes -Correct Procedure Yes -Procedure Performed Yes -Type of Procedure Debridement -Clinical Debridement Subcutaneous -Post Debridement Size (cm) - Length 18.0 -Post Debridement Size (cm) - Width 13.0 -Post Debridement Size (cm) - Depth 0.1 -Total Square Cm 234.00 -Wound/Ulcer Outcome Not Healed -Ulcer Cleansing Rinsed/ Irrigated with Saline -Foul Odor after Cleansing No -Bioengineered Tissue No -Bleeding Controlled with Pressure -Offloading No -Treatment Response Procedure Tolerated Well Pain Scale: 0-10 Numeric Is Patient Pain Free? Yes Wound debrided: Right lower extremity Wound Grade/Stage: Stage II Type of Debridement: Excisional debridement Anesthesia Used: 4% Lidocaine Solution Depth: Down to and including healthy tissue, in the subcutaneous layer Percentage of wound debrided: 100 Instrument Used: 7mm curette Tissue Removed: Slough and devitalized tissue Severity: Fat Layer Exposed Amount of bleeding with debridement: Mild Bleeding Controlled with: Pressure Patient tolerated procedure well - Additional Wound Wound debrided: Right heel Wound Grade/Stage: Stage III Type of Debridement: Excisional debridement Anesthesia Used: 4% Lidocaine Solution Depth: Down to and including healthy tissue Percentage of wound debrided: 100 Instrument Used: 3mm curette Tissue Removed: Slough and devitalized tissue Severity: Fat Layer Exposed Amount of bleeding with debridement: Mild Bleeding Controlled with: Pressure Patient tolerated procedure: Patient tolerated procedure well - Additional Wound Wound debrided: Left lower extremity ( Posterior ) Wound Grade/Stage: Stage II Type of Debridement: Excisional debridement Anesthesia Used: 4% Lidocaine Solution Depth: Down to and including healthy tissue, in the subcutaneous layer Percentage of wound debrided: 100 Instrument Used: 7mm curette Tissue Removed: Slougha and devitalized tissue Severity: Fat Layer Exposed Amount of bleeding with debridement: Mild Bleeding Controlled with: Pressure Patient tolerated procedure: Patient tolerated procedure well - Additional Wound Wound debrided: Left enciso cluster Wound Grade/Stage: Stage II Type of Debridement: Excisional debridement Anesthesia Used: 4% Lidocaine Solution Depth: Down to and including healthy tissue, in the subcutaneous layer Percentage of wound debrided: 100 Instrument Used: 7mm curette Tissue Removed: Slough and devitalized tissue Severity: Fat Layer Exposed Amount of bleeding with debridement: Mild Bleeding Controlled with: Pressure Patient tolerated procedure: Patient tolerated procedure well Assessment/Plan Active Problems Ulcer of right lower extremity with fat layer exposed (Chronic) Bilateral lower extremity edema (Chronic) Ulcer of left lower extremity with fat layer exposed (Chronic) Ulcer of right heel (Acute) Assessment: Same as above. Plan: Debridement done as documented above. Procedure was well-tolerated. Now has a HHN coming in twice daily and ulcers appear better. Also in the process of getting a MEDICAL OFFICE CLERK. Continue Aquacel daily to twice daily depending on drainage to all ulcers. Also advised that she elevate lower extremity when seated and in bed. Increased protein intake recommended. She expressed understanding. Daily ric wraps for edema management. Due to poor compliance and inability to adequately care for herself prognosis for wound healing is not very encouraging. She remains complex care pending further resolution/consistency of home care situation. Her questions were answered and she was advised to call with any further questions or concerns. Follow-up in 1 week. This note was generated with [employer] dictation software. It may contain incorrect words, spelling, and punctuation that were not noted in checking the note before signing.
[2019-02-08 11:12] VITALS: BP 103/66; PULSE 64; RESP 18; TEMP 36.1; BMI 73.8
--- NOTE | 2019-02-08 16:59 | PCM.WC.PN ---
(1) Ulcer of right heel Status: Acute Current Visit: Yes Qualifiers: Non-pressure ulcer stage: with fat layer exposed Qualified Code(s): L97.412 - Non-pressure chronic ulcer of right heel and midfoot with fat layer exposed Code(s): L97.419 - Non-pressure chronic ulcer of right heel and midfoot with unspecified severity (2) Bilateral lower extremity edema Status: Chronic Current Visit: Yes Code(s): R60.0 - Localized edema (3) Ulcer of left lower extremity with fat layer exposed Status: Chronic Current Visit: Yes Code(s): L97.922 - Non-pressure chronic ulcer of unspecified part of left lower leg with fat layer exposed (4) Ulcer of right lower extremity with fat layer exposed Status: Chronic Current Visit: Yes Code(s): L97.912 - Non-pressure chronic ulcer of unspecified part of right lower leg with fat layer exposed (5) Morbid obesity Status: Chronic Current Visit: No Code(s): E66.01 - Morbid (severe) obesity due to excess calories Type of Wound Chief Complaint: Right lower extremity ulcers. History of Wound: Ms. Molina is a 48-year-old who was referred to the wound center by her primary care physician due to right lower extremity ulcers. Per patient, started out with redness pain and swelling for which she was managed for cellulitis. Subsequently developed ulcerations in her calf and enciso. She feels well other at this time and denies chills, fever, nausea, vomitting or change in her bowel habit. Progress of Wound: Stable. No new concerns at this time. Did not do so well with leg elevations. - Physical Exam Vital Signs Temp Pulse Resp BP 97 F L 64 18 103/66 02/08/19 11:12 02/08/19 11:12 02/08/19 11:12 02/08/19 11:12 General: Alert, Oriented x3, Cooperative, No apparent distress HEENT: Atraumatic, Normocephalic Oral: Moist Mucosa Neck: Supple Abdomen: Non Tender, Obese Extremities: No cyanosis, Edema Skin: Ulcer/ Wound Wound Measurements and Assessment WC - Nurse 1 - General Ulcer Measurement Start: 02/01/19 10:21 Freq: Status: Active Protocol: Activity Type Activity Date Activity User E-Sign Co-Sign Detail Recorded Client Recorded Date Recorded By Document 02/08/19 11:12 MYRA [id number] 02/08/19 11:25 MYRA 02/08/19 11:12 Wound Center Nurse 1 [Ulcer Assessment] # 9 right heel -Combined with other wound No -Current Size (cm) - Length 1 -Current Size (cm) - Width 0.4 -Current Size (cm) - Depth 0.2 -Total Square Cm 0.4 -Tunneling No -Undermining/Tunneling No -Circular Undermining No -Exudate Amt Medium -Exudate Type Serosanguineous -Wound Margin Distinct, Outline Attached -Granulation Amt Medium (34-66%) -Granulation Quality [place] -Slough/Fibrin Yes -Necrosis Amt Small (1-33%) -Necrotic Tissue Type Adherent Slough -Structure Exposed N/A -Texture (Martha-wound Skin Appearance) Assessed -Moisture (Martha-wound Skin Appearance Assessed ) Maceration -Color (Martha-wound Skin Appearance) Assessed -Temperature (Martha-wound Skin No Abnormality Appearance) (Pt Warm) -Tenderness on Palpation (Martha-wound No Skin Appearance) -Ulcer Cleansing Wound Cleanser -Foul Odor after Cleansing No -Anesthetic Used 4% Lidocaine Solution #8- LT POST CALF CLUSTER -Combined with other wound No -Current Size (cm) - Length 17.5 -Current Size (cm) - Width 13 -Current Size (cm) - Depth 0.1 -Total Square Cm 227.5 -Tunneling No -Undermining/Tunneling No -Circular Undermining No -Exudate Amt Medium -Exudate Type Serosanguineous -Wound Margin Distinct, Outline Attached -Granulation Amt Medium (34-66%) -Granulation Quality [place] -Slough/Fibrin Yes -Necrosis Amt Medium (34-66%) -Necrotic Tissue Type Adherent Slough -Structure Exposed N/A -Texture (Martha-wound Skin Appearance) Assessed -Moisture (Martha-wound Skin Appearance Assessed ) -Color (Martha-wound Skin Appearance) Assessed -Temperature (Martha-wound Skin No Abnormality Appearance) (Pt Warm) -Tenderness on Palpation (Martha-wound No Skin Appearance) -Ulcer Cleansing Wound Cleanser -Foul Odor after Cleansing No -Anesthetic Used 4% Lidocaine Solution #7- LT ENCISO -Current Size (cm) - Length 8 -Current Size (cm) - Width 9 -Current Size (cm) - Depth 0.1 -Total Square Cm 72 -Tunneling No -Undermining/Tunneling No -Circular Undermining No -Exudate Amt Medium -Exudate Type Serosanguineous -Wound Margin Distinct, Outline Attached -Granulation Amt Medium (34-66%) -Granulation Quality [place] -Slough/Fibrin Yes -Necrosis Amt Medium (34-66%) -Necrotic Tissue Type Adherent Slough -Structure Exposed N/A -Texture (Martha-wound Skin Appearance) Assessed -Moisture (Martha-wound Skin Appearance Assessed ) Maceration -Color (Martha-wound Skin Appearance) Assessed -Temperature (Martha-wound Skin No Abnormality Appearance) (Pt Warm) -Tenderness on Palpation (Martha-wound No Skin Appearance) -Ulcer Cleansing Rinsed/ Irrigated with Saline -Foul Odor after Cleansing No -Anesthetic Used 4% Lidocaine Solution #1 RIGHT POSTERIOR CALF CLUSTER -Combined with other wound No -Current Size (cm) - Length 18.5 -Current Size (cm) - Width 19 -Current Size (cm) - Depth 0.1 -Total Square Cm 351.5 -Tunneling No -Undermining/Tunneling No -Circular Undermining No -Exudate Amt Medium -Exudate Type Serosanguineous -Wound Margin Distinct, Outline Attached -Granulation Amt Medium (34-66%) -Granulation Quality [place] -Slough/Fibrin Yes -Necrosis Amt Small (1-33%) -Necrotic Tissue Type Adherent Slough -Structure Exposed N/A -Texture (Martha-wound Skin Appearance) Assessed -Moisture (Martha-wound Skin Appearance Assessed ) -Color (Martha-wound Skin Appearance) Assessed -Temperature (Martha-wound Skin No Abnormality Appearance) (Pt Warm) -Tenderness on Palpation (Martha-wound No Skin Appearance) -Ulcer Cleansing Wound Cleanser -Foul Odor after Cleansing No -Anesthetic Used 4% Lidocaine Solution [Edema Assessment] -Lower Limb Edema Present Yes -Right Calf (cm) 71.5 -Right Ankle (cm) 32 -Left Calf (cm) 67.5 -Left Ankle (cm) 31 WC - Nurse 2 - General Ulcer CM Notes Start: 02/01/19 10:21 Freq: Status: Active Protocol: Activity Type Activity Date Activity User E-Sign Co-Sign Detail Recorded Client Recorded Date Recorded By Document 02/08/19 11:44 MW [id number] 02/08/19 11:48 MW 02/08/19 11:44 Wound Center Nurse 2 [Procedure/Treatment] # 9 right heel -Time 11:45 -Correct Patient Yes -Correct Side, Site, Position Yes -Correct Procedure Yes -Procedure Performed Yes -Type of Procedure Debridement -Clinical Debridement Subcutaneous -Post Debridement Size (cm) - Length 0.5 -Post Debridement Size (cm) - Width 0.3 -Post Debridement Size (cm) - Depth 0.1 -Total Square Cm 0.15 -Wound/Ulcer Outcome Not Healed -Ulcer Cleansing Rinsed/ Irrigated with Saline -Foul Odor after Cleansing No -Bioengineered Tissue No -Bleeding Controlled with Pressure -Offloading No -Treatment Response Procedure Tolerated Well #8- LT POST CALF CLUSTER -Time 11:45 -Correct Patient Yes -Correct Side, Site, Position Yes -Correct Procedure Yes -Procedure Performed Yes -Type of Procedure Debridement -Clinical Debridement Subcutaneous -Post Debridement Size (cm) - Length 12.0 -Post Debridement Size (cm) - Width 9.0 -Post Debridement Size (cm) - Depth 0.1 -Total Square Cm 108.00 -Wound/Ulcer Outcome Not Healed -Ulcer Cleansing Rinsed/ Irrigated with Saline -Foul Odor after Cleansing No -Bioengineered Tissue No -Bleeding Controlled with Pressure -Offloading No -Treatment Response Procedure Tolerated Well #7- LT ENCISO -Time 11:45 -Correct Patient Yes -Correct Side, Site, Position Yes -Correct Procedure Yes -Procedure Performed Yes -Type of Procedure Debridement -Clinical Debridement Subcutaneous -Post Debridement Size (cm) - Length 8.0 -Post Debridement Size (cm) - Width 7.0 -Post Debridement Size (cm) - Depth 0.1 -Total Square Cm 56.00 -Wound/Ulcer Outcome Not Healed -Ulcer Cleansing Rinsed/ Irrigated with Saline -Foul Odor after Cleansing No -Bioengineered Tissue No -Bleeding Controlled with Pressure -Offloading No -Treatment Response Procedure Tolerated Well #1 RIGHT POSTERIOR CALF CLUSTER -Time 11:45 -Correct Patient Yes -Correct Side, Site, Position Yes -Correct Procedure Yes -Procedure Performed Yes -Type of Procedure Debridement -Clinical Debridement Subcutaneous -Post Debridement Size (cm) - Length 18.0 -Post Debridement Size (cm) - Width 15.0 -Post Debridement Size (cm) - Depth 0.1 -Total Square Cm 270.00 -Wound/Ulcer Outcome Not Healed -Ulcer Cleansing Rinsed/ Irrigated with Saline -Foul Odor after Cleansing No -Bioengineered Tissue No -Bleeding Controlled with Pressure -Offloading No -Treatment Response Procedure Tolerated Well [See Physician Procedure note for Specifics] Pain Scale: 0-10 Numeric [Pain] -Is Patient Pain Free? Yes Musculoskeletal: No Muscle Wasting Neurological: Cranial nerves II-XII grossly intact Psych/Mental Status: Normal Affect Debridement Note Post-Debridement Measurements/Treatment WC - Nurse 2 - General Ulcer CM Notes Start: 02/01/19 10:21 Freq: Status: Active Protocol: Activity Type Activity Date Activity User E-Sign Co-Sign Detail Recorded Client Recorded Date Recorded By Document 02/01/19 11:17 MW [id number] 02/01/19 11:28 MW Document 02/08/19 11:44 MW [id number] 02/08/19 11:48 MW 02/01/19 02/08/19 11:17 11:44 Wound Center Nurse 2 # 9 right heel -Time 11:22 11:45 -Correct Patient Yes Yes -Correct Side, Site, Position Yes Yes -Correct Procedure Yes Yes -Procedure Performed Yes Yes -Type of Procedure Debridement Debridement -Clinical Debridement Subcutaneous Subcutaneous -Post Debridement Size (cm) - Length 1.0 0.5 -Post Debridement Size (cm) - Width 0.5 0.3 -Post Debridement Size (cm) - Depth 0.1 0.1 -Total Square Cm 0.50 0.15 -Wound/Ulcer Outcome Not Healed Not Healed -Ulcer Cleansing Rinsed/ Rinsed/ Irrigated with Irrigated with Saline Saline -Foul Odor after Cleansing No No -Bioengineered Tissue No No -Bleeding Controlled with Pressure Pressure -Offloading No No -Treatment Response Procedure Procedure Tolerated Well Tolerated Well #8- LT POST CALF CLUSTER -Time 11:19 11:45 -Correct Patient Yes Yes -Correct Side, Site, Position Yes Yes -Correct Procedure Yes Yes -Procedure Performed Yes Yes -Type of Procedure Debridement Debridement -Clinical Debridement Subcutaneous Subcutaneous -Post Debridement Size (cm) - Length 12.0 12.0 -Post Debridement Size (cm) - Width 7.0 9.0 -Post Debridement Size (cm) - Depth 0.1 0.1 -Total Square Cm 84.00 108.00 -Wound/Ulcer Outcome Not Healed Not Healed -Ulcer Cleansing Rinsed/ Rinsed/ Irrigated with Irrigated with Saline Saline -Foul Odor after Cleansing No No -Bioengineered Tissue No No -Bleeding Controlled with Pressure Pressure -Offloading No No -Treatment Response Procedure Procedure Tolerated Well Tolerated Well #7- LT ENCISO -Time 11:19 11:45 -Correct Patient Yes Yes -Correct Side, Site, Position Yes Yes -Correct Procedure Yes Yes -Procedure Performed Yes Yes -Type of Procedure Debridement Debridement -Clinical Debridement Subcutaneous Subcutaneous -Post Debridement Size (cm) - Length 8.0 8.0 -Post Debridement Size (cm) - Width 7.5 7.0 -Post Debridement Size (cm) - Depth 0.1 0.1 -Total Square Cm 60.00 56.00 -Wound/Ulcer Outcome Not Healed Not Healed -Ulcer Cleansing Rinsed/ Rinsed/ Irrigated with Irrigated with Saline Saline -Foul Odor after Cleansing No No -Bioengineered Tissue No No -Bleeding Controlled with Pressure Pressure -Offloading No No -Treatment Response Procedure Procedure Tolerated Well Tolerated Well #1 RIGHT POSTERIOR CALF CLUSTER -Time 11:18 11:45 -Correct Patient Yes Yes -Correct Side, Site, Position Yes Yes -Correct Procedure Yes Yes -Procedure Performed Yes Yes -Type of Procedure Debridement Debridement -Clinical Debridement Subcutaneous Subcutaneous -Post Debridement Size (cm) - Length 18.0 18.0 -Post Debridement Size (cm) - Width 13.0 15.0 -Post Debridement Size (cm) - Depth 0.1 0.1 -Total Square Cm 234.00 270.00 -Wound/Ulcer Outcome Not Healed Not Healed -Ulcer Cleansing Rinsed/ Rinsed/ Irrigated with Irrigated with Saline Saline -Foul Odor after Cleansing No No -Bioengineered Tissue No No -Bleeding Controlled with Pressure Pressure -Offloading No No -Treatment Response Procedure Procedure Tolerated Well Tolerated Well Pain Scale: 0-10 Numeric Is Patient Pain Free? Yes Yes Wound debrided: Right lower extremity posterior cluster Wound Grade/Stage: stage II Type of Debridement: Excisional debridement Anesthesia Used: 4% Lidocaine Solution Depth: Down to and including healthy tissue, in the subcutaneous layer Percentage of wound debrided: 100 Instrument Used: 7mm curette Tissue Removed: Slough and devitalized tissue Severity: Fat Layer Exposed Amount of bleeding with debridement: Mild Bleeding Controlled with: Pressure Patient tolerated procedure well - Additional Wound Wound debrided: Right heel Wound Grade/Stage: Stage III Type of Debridement: Excisional debridement Anesthesia Used: 4% Lidocaine Solution Depth: Down to and including healthy tissue, in the subcutaneous layer Percentage of wound debrided: 100 Instrument Used: 3mm curette Tissue Removed: Slough and devitalized tissue Severity: Fat Layer Exposed Amount of bleeding with debridement: Mild Bleeding Controlled with: Pressure Patient tolerated procedure: Patient tolerated procedure well - Additional Wound Wound debrided: Left lower extremity posterior cluster Wound Grade/Stage: Stage II Type of Debridement: Excisional debridement Anesthesia Used: 4% Lidocaine Solution Depth: Down to and including healthy tissue, in the subcutaneous layer Percentage of wound debrided: 100 Instrument Used: 7mm curette Tissue Removed: Slough and devitalized tissue Severity: Fat Layer Exposed Amount of bleeding with debridement: Mild Bleeding Controlled with: Pressure Patient tolerated procedure: Patient tolerated procedure well - Additional Wound Wound debrided: Right enciso cluster Wound Grade/Stage: Stage II Type of Debridement: Excisional debridement Anesthesia Used: 4% Lidocaine Solution Depth: Down to and including healthy tissue, in the subcutaneous layer Percentage of wound debrided: 100 Instrument Used: 7mm curette Tissue Removed: Slough and devitalized tissue Severity: Fat Layer Exposed Amount of bleeding with debridement: Mild Bleeding Controlled with: Pressure Patient tolerated procedure: Patient tolerated procedure well Assessment/Plan Active Problems Ulcer of right lower extremity with fat layer exposed (Chronic) Bilateral lower extremity edema (Chronic) Ulcer of left lower extremity with fat layer exposed (Chronic) Ulcer of right heel (Acute) Assessment: Same as above. Plan: Debridement done as documented above. Procedure was well-tolerated. Continue Aquacel daily to twice daily depending on drainage to all ulcers. Also advised that she elevate lower extremity when seated and in bed. Increased protein intake recommended. She expressed understanding. Daily ric wraps for edema management. Due to poor compliance and inability to adequately care for herself prognosis for wound healing is not very encouraging. She remains complex care pending further resolution/consistency of home care situation. Plan is to go to an assisted living facility. Her questions were answered and she was advised to call with any further questions or concerns. Follow-up in 1 week. This note was generated with [employer] software. It may contain incorrect words, spelling, and punctuation that were not noted in checking the note before signing.
[2019-02-22 10:43] VITALS: BP 136/78; PULSE 75; RESP 22; TEMP 36.9; BMI 73.8
--- NOTE | 2019-02-22 11:41 | PN.PCM_ITS ---
(1) Ulcer of right heel Status: Acute Current Visit: Yes Qualifiers: Non-pressure ulcer stage: with fat layer exposed Qualified Code(s): L97.412 - Non-pressure chronic ulcer of right heel and midfoot with fat layer exposed Code(s): L97.419 - Non-pressure chronic ulcer of right heel and midfoot with unspecified severity (2) Bilateral lower extremity edema Status: Chronic Current Visit: Yes Code(s): R60.0 - Localized edema (3) Ulcer of left lower extremity with fat layer exposed Status: Chronic Current Visit: Yes Code(s): L97.922 - Non-pressure chronic ulcer of unspecified part of left lower leg with fat layer exposed (4) Ulcer of right lower extremity with fat layer exposed Status: Chronic Current Visit: Yes Code(s): L97.912 - Non-pressure chronic ulcer of unspecified part of right lower leg with fat layer exposed (5) Morbid obesity Status: Chronic Current Visit: No Code(s): E66.01 - Morbid (severe) obesity due to excess calories Type of Wound Chief Complaint: Right lower extremity ulcers. History of Wound: Ms. Molina is a 48-year-old who was referred to the wound center by her primary care physician due to right lower extremity ulcers. Per patient, started out with redness pain and swelling for which she was managed for cellulitis. Subsequently developed ulcerations in her calf and enciso. She feels well other at this time and denies chills, fever, nausea, vomitting or change in her bowel habit. Progress of Wound: Stable. No new concerns at this time. - Physical Exam Vital Signs Temp Pulse Resp BP 98.5 F 75 22 H 136/78 H 02/22/19 10:43 02/22/19 10:43 02/22/19 10:43 02/22/19 10:43 General: Alert, Oriented x3, Cooperative, No apparent distress HEENT: Atraumatic, Normocephalic Oral: Moist Mucosa Neck: Supple Lungs: Normal air movement Abdomen: Non Tender, Obese Extremities: No cyanosis, Edema Skin: Ulcer/ Wound Wound Measurements and Assessment WC - Nurse 1 - General Ulcer Measurement Start: 02/01/19 10:21 Freq: Status: Active Protocol: Activity Type Activity Date Activity User E-Sign Co-Sign Detail Recorded Client Recorded Date Recorded By Document 02/22/19 10:43 DL [id number] 02/22/19 10:56 DL 02/22/19 10:43 Wound Center Nurse 1 [Ulcer Assessment] # 9 right heel -Current Size (cm) - Length 0.5 -Current Size (cm) - Width 0.4 -Current Size (cm) - Depth 0.1 -Total Square Cm 0.20 -Photo Taken No -Exudate Amt None Present -Wound Margin Thickened -Granulation Amt Small (1-33%) -Granulation Quality Pale -Necrosis Amt None Present (0 %) -Structure Exposed N/A -Texture (Martha-wound Skin Appearance) Scarring -Moisture (Martha-wound Skin Appearance Dry/Scaly ) -Color (Martha-wound Skin Appearance) No Abnormality -Temperature (Martha-wound Skin No Abnormality Appearance) (Pt Warm) -Tenderness on Palpation (Martha-wound No Skin Appearance) -Ulcer Cleansing Wound Cleanser -Foul Odor after Cleansing No -Anesthetic Used 4% Lidocaine Solution #8- LT POST CALF CLUSTER -Current Size (cm) - Length 13 -Current Size (cm) - Width 9 -Current Size (cm) - Depth 0.1 -Total Square Cm 117 -Photo Taken No -Exudate Amt Large -Exudate Type Serosanguineous -Wound Margin Indistinct, Non -Visible -Granulation Amt Small (1-33%) -Granulation Quality [place] -Necrosis Amt Large (67-100%) -Necrotic Tissue Type Adherent Slough -Texture (Martha-wound Skin Appearance) Localized Edema Scarring -Moisture (Martha-wound Skin Appearance Maceration ) -Color (Martha-wound Skin Appearance) Hemosiderin Staining -Temperature (Martha-wound Skin No Abnormality Appearance) (Pt Warm) -Tenderness on Palpation (Martha-wound No Skin Appearance) -Anesthetic Used 4% Lidocaine Solution #7- LT ENCISO -Current Size (cm) - Length 1.1 -Current Size (cm) - Width 0.2 -Current Size (cm) - Depth 0.1 -Total Square Cm 0.22 -Photo Taken No -Exudate Amt None Present -Wound Margin Flat & Intact -Granulation Amt Large (67-100%) -Granulation Quality Pale [place] -Necrosis Amt None Present (0 %) -Structure Exposed N/A -Texture (Martha-wound Skin Appearance) Localized Edema Scarring -Moisture (Martha-wound Skin Appearance No Abnormality ) -Color (Martha-wound Skin Appearance) Hemosiderin Staining -Temperature (Martha-wound Skin No Abnormality Appearance) (Pt Warm) -Tenderness on Palpation (Martha-wound No Skin Appearance) -Ulcer Cleansing Wound Cleanser -Foul Odor after Cleansing No -Anesthetic Used 4% Lidocaine Solution #1 RIGHT POSTERIOR CALF CLUSTER -Current Size (cm) - Length 15 -Current Size (cm) - Width 13 -Current Size (cm) - Depth 0.1 -Total Square Cm 195 -Photo Taken No -Exudate Amt Large -Exudate Type Serosanguineous -Wound Margin Indistinct, Non -Visible -Granulation Amt Medium (34-66%) -Granulation Quality Red -Necrosis Amt Medium (34-66%) -Necrotic Tissue Type Adherent Slough -Structure Exposed N/A -Texture (Martha-wound Skin Appearance) Localized Edema Scarring -Moisture (Martha-wound Skin Appearance Maceration ) -Color (Martha-wound Skin Appearance) Hemosiderin Staining -Temperature (Martha-wound Skin No Abnormality Appearance) (Pt Warm) -Tenderness on Palpation (Martha-wound No Skin Appearance) -Ulcer Cleansing Wound Cleanser -Foul Odor after Cleansing No -Anesthetic Used 4% Lidocaine Solution [Edema Assessment] -Right Calf (cm) 71 -Right Ankle (cm) 34 -Left Calf (cm) 63.6 -Left Ankle (cm) 31.5 WC - Nurse 2 - General Ulcer CM Notes Start: 02/01/19 10:21 Freq: Status: Active Protocol: Activity Type Activity Date Activity User E-Sign Co-Sign Detail Recorded Client Recorded Date Recorded By Document 02/22/19 11:26 MW [id number] 02/22/19 11:36 MW 02/22/19 11:26 Wound Center Nurse 2 [Procedure/Treatment] # 9 right heel -Time 11:27 -Correct Patient Yes -Correct Side, Site, Position Yes -Correct Procedure Yes -Procedure Performed Yes -Type of Procedure Debridement -Clinical Debridement Subcutaneous -Post Debridement Size (cm) - Length 0.5 -Post Debridement Size (cm) - Width 0.1 -Post Debridement Size (cm) - Depth 0.1 -Total Square Cm 0.05 -Wound/Ulcer Outcome Not Healed -Ulcer Cleansing Rinsed/ Irrigated with Saline -Foul Odor after Cleansing No -Bioengineered Tissue No -Bleeding Controlled with Pressure -Offloading No -Treatment Response Procedure Tolerated Well #8- LT POST CALF CLUSTER -Time 11:27 -Correct Patient Yes -Correct Side, Site, Position Yes -Correct Procedure Yes -Procedure Performed Yes -Type of Procedure Debridement -Clinical Debridement Subcutaneous -Post Debridement Size (cm) - Length 15.0 -Post Debridement Size (cm) - Width 12.0 -Post Debridement Size (cm) - Depth 0.1 -Total Square Cm 180.00 -Wound/Ulcer Outcome Not Healed -Ulcer Cleansing Rinsed/ Irrigated with Saline -Foul Odor after Cleansing No -Bioengineered Tissue No -Bleeding Controlled with Pressure -Offloading No -Treatment Response Procedure Tolerated Well #7- LT ENCISO -Time 11:27 -Correct Patient Yes -Correct Side, Site, Position Yes -Correct Procedure Yes -Procedure Performed Yes -Type of Procedure Debridement -Clinical Debridement Subcutaneous -Post Debridement Size (cm) - Length 1.2 -Post Debridement Size (cm) - Width 5.0 -Post Debridement Size (cm) - Depth 0.1 -Total Square Cm 6.00 -Wound/Ulcer Outcome Not Healed -Ulcer Cleansing Rinsed/ Irrigated with Saline -Foul Odor after Cleansing No -Bioengineered Tissue No -Bleeding Controlled with Pressure -Offloading No -Treatment Response Procedure Tolerated Well #1 RIGHT POSTERIOR CALF CLUSTER -Time 11:27 -Correct Patient Yes -Correct Side, Site, Position Yes -Correct Procedure Yes -Procedure Performed Yes -Type of Procedure Debridement -Clinical Debridement Subcutaneous -Post Debridement Size (cm) - Length 23.0 -Post Debridement Size (cm) - Width 14.0 -Post Debridement Size (cm) - Depth 0.1 -Total Square Cm 322.00 -Wound/Ulcer Outcome Not Healed -Ulcer Cleansing Rinsed/ Irrigated with Saline -Foul Odor after Cleansing No -Bioengineered Tissue No -Bleeding Controlled with Pressure -Offloading No -Treatment Response Procedure Tolerated Well [See Physician Procedure note for Specifics] Pain Scale: 0-10 Numeric [Pain] -Is Patient Pain Free? Yes Musculoskeletal: No Muscle Wasting Neurological: Cranial nerves II-XII grossly intact Psych/Mental Status: Normal Affect Debridement Note Post-Debridement Measurements/Treatment WC - Nurse 2 - General Ulcer CM Notes Start: 02/01/19 10:21 Freq: Status: Active Protocol: Activity Type Activity Date Activity User E-Sign Co-Sign Detail Recorded Client Recorded Date Recorded By Document 02/01/19 11:17 MW [id number] 02/01/19 11:28 MW Document 02/08/19 11:44 MW [id number] 02/08/19 11:48 MW Document 02/22/19 11:26 MW [id number] 02/22/19 11:36 MW 02/01/19 02/08/19 02/22/19 11:17 11:44 11:26 Wound Center Nurse 2 # 9 right heel -Time 11:22 11:45 11:27 -Correct Patient Yes Yes Yes -Correct Side, Site, Position Yes Yes Yes -Correct Procedure Yes Yes Yes -Procedure Performed Yes Yes Yes -Type of Procedure Debridement Debridement Debridement -Clinical Debridement Subcutaneous Subcutaneous Subcutaneous -Post Debridement Size (cm) - Length 1.0 0.5 0.5 -Post Debridement Size (cm) - Width 0.5 0.3 0.1 -Post Debridement Size (cm) - Depth 0.1 0.1 0.1 -Total Square Cm 0.50 0.15 0.05 -Wound/Ulcer Outcome Not Healed Not Healed Not Healed -Ulcer Cleansing Rinsed/ Rinsed/ Rinsed/ Irrigated with Irrigated with Irrigated with Saline Saline Saline -Foul Odor after Cleansing No No No -Bioengineered Tissue No No No -Bleeding Controlled with Pressure Pressure Pressure -Offloading No No No -Treatment Response Procedure Procedure Procedure Tolerated Well Tolerated Well Tolerated Well #8- LT POST CALF CLUSTER -Time 11:19 11:45 11:27 -Correct Patient Yes Yes Yes -Correct Side, Site, Position Yes Yes Yes -Correct Procedure Yes Yes Yes -Procedure Performed Yes Yes Yes -Type of Procedure Debridement Debridement Debridement -Clinical Debridement Subcutaneous Subcutaneous Subcutaneous -Post Debridement Size (cm) - Length 12.0 12.0 15.0 -Post Debridement Size (cm) - Width 7.0 9.0 12.0 -Post Debridement Size (cm) - Depth 0.1 0.1 0.1 -Total Square Cm 84.00 108.00 180.00 -Wound/Ulcer Outcome Not Healed Not Healed Not Healed -Ulcer Cleansing Rinsed/ Rinsed/ Rinsed/ Irrigated with Irrigated with Irrigated with Saline Saline Saline -Foul Odor after Cleansing No No No -Bioengineered Tissue No No No -Bleeding Controlled with Pressure Pressure Pressure -Offloading No No No -Treatment Response Procedure Procedure Procedure Tolerated Well Tolerated Well Tolerated Well #7- LT ENCISO -Time 11:19 11:45 11:27 -Correct Patient Yes Yes Yes -Correct Side, Site, Position Yes Yes Yes -Correct Procedure Yes Yes Yes -Procedure Performed Yes Yes Yes -Type of Procedure Debridement Debridement Debridement -Clinical Debridement Subcutaneous Subcutaneous Subcutaneous -Post Debridement Size (cm) - Length 8.0 8.0 1.2 -Post Debridement Size (cm) - Width 7.5 7.0 5.0 -Post Debridement Size (cm) - Depth 0.1 0.1 0.1 -Total Square Cm 60.00 56.00 6.00 -Wound/Ulcer Outcome Not Healed Not Healed Not Healed -Ulcer Cleansing Rinsed/ Rinsed/ Rinsed/ Irrigated with Irrigated with Irrigated with Saline Saline Saline -Foul Odor after Cleansing No No No -Bioengineered Tissue No No No -Bleeding Controlled with Pressure Pressure Pressure -Offloading No No No -Treatment Response Procedure Procedure Procedure Tolerated Well Tolerated Well Tolerated Well #1 RIGHT POSTERIOR CALF CLUSTER -Time 11:18 11:45 11:27 -Correct Patient Yes Yes Yes -Correct Side, Site, Position Yes Yes Yes -Correct Procedure Yes Yes Yes -Procedure Performed Yes Yes Yes -Type of Procedure Debridement Debridement Debridement -Clinical Debridement Subcutaneous Subcutaneous Subcutaneous -Post Debridement Size (cm) - Length 18.0 18.0 23.0 -Post Debridement Size (cm) - Width 13.0 15.0 14.0 -Post Debridement Size (cm) - Depth 0.1 0.1 0.1 -Total Square Cm 234.00 270.00 322.00 -Wound/Ulcer Outcome Not Healed Not Healed Not Healed -Ulcer Cleansing Rinsed/ Rinsed/ Rinsed/ Irrigated with Irrigated with Irrigated with Saline Saline Saline -Foul Odor after Cleansing No No No -Bioengineered Tissue No No No -Bleeding Controlled with Pressure Pressure Pressure -Offloading No No No -Treatment Response Procedure Procedure Procedure Tolerated Well Tolerated Well Tolerated Well Pain Scale: 0-10 Numeric Is Patient Pain Free? Yes Yes Yes Wound debrided: Right lower extremity posterior cluster Wound Grade/Stage: Stage II Type of Debridement: Excisional debridement Anesthesia Used: 4% Lidocaine Solution Depth: Down to and including healthy tissue Instrument Used: 5mm curette Tissue Removed: Slough and devitalized tissue Severity: Fat Layer Exposed Amount of bleeding with debridement: Mild Bleeding Controlled with: Pressure Patient tolerated procedure well - Additional Wound Wound debrided: Right heel Wound Grade/Stage: Stage III Type of Debridement: Excisional debridement Anesthesia Used: 4% Lidocaine Solution Depth: Down to and including healthy tissue, in the subcutaneous layer Percentage of wound debrided: 100 Instrument Used: 5mm curette Tissue Removed: Slough and devitalized tissue Severity: Fat Layer Exposed Amount of bleeding with debridement: Mild Bleeding Controlled with: Pressure Patient tolerated procedure: Patient tolerated procedure well - Additional Wound Wound debrided: Left lower extremity ( posterior cluster ) Wound Grade/Stage: Stage II Type of Debridement: Excisional debridement Anesthesia Used: 4% Lidocaine Solution Depth: Down to and including healthy tissue, in the subcutaneous layer Percentage of wound debrided: 100 Instrument Used: 5mm curette Tissue Removed: SLough and devitalized tissue Severity: Fat Layer Exposed Amount of bleeding with debridement: Mild Bleeding Controlled with: Pressure Patient tolerated procedure: Patient tolerated procedure well - Additional Wound Wound debrided: Left lower extremity enciso Wound Grade/Stage: Stage II Type of Debridement: Excisional debridement Anesthesia Used: 4% Lidocaine Solution Depth: Down to and including healthy tissue, in the subcutaneous layer Percentage of wound debrided: 100 Instrument Used: 5mm curette Tissue Removed: Slough and devitalized tissue Severity: Fat Layer Exposed Amount of bleeding with debridement: Mild Bleeding Controlled with: Pressure Patient tolerated procedure: Patient tolerated procedure well Assessment/Plan Active Problems Ulcer of right lower extremity with fat layer exposed (Chronic) Bilateral lower extremity edema (Chronic) Ulcer of left lower extremity with fat layer exposed (Chronic) Ulcer of right heel (Acute) Assessment: Same as above. Plan: Over all stable with improvement noted in the right heel ulcer. Debridement done as documented above. Procedure was well-tolerated. Continue Aquacel daily to twice daily depending on drainage to all ulcers. Also advised that she elevate lower extremity when seated and in bed. Increased protein intake recommended. She expressed understanding. Daily ric wraps for edema management. Due to poor compliance and inability to adequately care for herself prognosis for wound healing is not very encouraging. She remains complex care pending further resolution/consistency of home care situation. Plan is to go to an assisted living facility. Her questions were answered and she was advised to call with any further questions or concerns. Follow-up in 1 week. This note was generated with [employer] software. It may contain incorrect words, spelling, and punctuation that were not noted in checking the note before signing.
== END 2019-03-03 23:59 ==
LOC: WC 10:30
PROVIDERS: Family Provider Family Medicine; PCP Family Medicine; Visit Provider Internal Medicine
DX: L97.212 Non-pressure chronic ulcer of right calf with fat layer exposed (principal); L97.412 Non-pressure chronic ulcer of right heel and midfoot with fat layer exposed; L97.822 Non-pressure chronic ulcer of other part of left lower leg with fat layer exposed; R60.0 Localized edema; E66.01 Morbid (severe) obesity due to excess calories; Z68.45 Body mass index [BMI] 70 or greater, adult; Z71.3 Dietary counseling and surveillance
CPT/HCPCS: 11042; 11045

== ENCOUNTER 2019-03-20 12:46 | Inpatient (IN) | payer MEDICARE, MEDICAID, SELFPAY ==
[2019-03-09 11:45] VITALS: BMI 73.8
[2019-03-20] VITALS (10 sets, daily range): BP systolic 102–147; BP diastolic 45–81; PULSE 62–92; RESP 16–21; TEMP 36.6–37.1; O2SAT 95–99; BMI 76.2; BMI 75.7
--- NOTE | 2019-03-20 13:02 | CT_ITS ---
STUDY: CT SCAN OF THE LOWER EXTREMITY LEFT REASON FOR EXAM: Female, 49 years old. Left thigh wound with the redness and swelling. RADIATION DOSAGE (If Supplied By Facility): CTDIvol = ( 72.95 ) mGy, DLP = ( 4927.59 ) mGycm. Individualized dose optimization techniques were used for this CT.? TECHNIQUE: Multiple axial tomographic images of the left lower extremity were obtained following intravenous contrast administration. Coronal and sagittal reconstruction was obtained as well. COMPARISON: None. FINDINGS: A focal soft tissue ulceration is seen along the anterior medial aspect of the proximal left thigh involving the skin and the deep subcutaneous tissues. Increased markings are seen in the surrounding area as well as air most likely due to communication with the overlying skin. There is evidence of increased markings within the subcutaneous tissues from the proximal left thigh extending down into the proximal portion of the leg. There is evidence of the overlying skin thickening. There is also evidence of varicosities. No focal abscess is seen. There is also evidence of a skin thickening involving the distal portion of the medial aspect of the right side. CT/Extremity Lower WITH Contrast IMPRESSION: Findings suggestive of a cellulitis. Focal soft tissue ulceration/defect in the proximal medial anterior aspect of the left thigh. Electronically Signed: Sabino Ackerman, at 15:16 EDT , Service support ,
--- NOTE | 2019-03-20 13:06 | ED.DCSUM_ITS ---
- ER Visit Summary Date of Service: 03/20/19 Chief Complaint: Abscess History of Present Illness: The patient is a 49 F with a left thigh abscess. This started about a week ago. It was draining. She saw her PCP and was started on Bactrim. This is getting worse. It is draining more, more erythematous, and more painful. Patient has a history of cutaneous infections and ulcers. This is new over the past week. Patient denies fever or systemic symptoms. Physical Examination: Vital signs unremarkable. Afebrile. Patient has a large area of induration and erythema to her left anterior thigh. There is a central ulceration that appears full-thickness, ovoid measuring approximately 8 cm in greatest length. No active bleeding or drainage. The area is tender to palpation. She is neurovascular intact distally. Test Results: Labs, cultures, imaging pending. Emergency Department Course and Treatment: Patient will be treated with fentanyl. Will start empiric treatment with vancomycin. Patient presents with a full-thickness ulceration, pain, redness. Failed outpatient. She will likely need inpatient care. Labs and imaging are pending. Imaging shows cellulitis. White count 11.1. Creatinine 1.39. BUN 47. Patient does not have sepsis. Patient does have worsening symptoms despite outpatient therapy. Hospitalist was contacted for inpatient care. Treatment Plan: As above Disposition: Admission Impression: 1. Left leg cellulitis 2. Failed outpatient therapy This note was generated with [employer] dictation software. It may contain incorrect words, spelling, and punctuation that were not noted in review of the chart prior to signing ED Disposition - Plan for ED Patient: Referrals: Andres Wade MD [Primary Care Provider] -
[2019-03-20 13:43] LABS: Anion Gap 9 (5-15); BUN 47 mg/dL (7-18); BUN/Creat Ratio 33.8 RATIO (10-20); Calcium,Total 9.1 mg/dL (8.5-10.1); Chloride 108 mmol/L (98-107); Creatinine, Serum 1.39 mg/dL (0.55-1.02); EST Glomerular Filtration Rate 43 mL/min (>60); Est Glom Filt Rate - Afr Amer 52 mL/min (>60); Estimated Creatinine Clearance 44.54 ml/min; Glucose 102 mg/dL (74-106); Potassium 4.1 mmol/L (3.5-5.1); Sodium Level 139 mmol/L (136-145)
[2019-03-20 13:45] LABS: Absolute Lymphocyte Count 2.01 X10^3/ul (0.83-4.51); Absolute Neutrophil Count 7.7 X10^3/uL (2.0-7.7); Basophil# 0.11 X10^3/uL; Eosinophil# 0.28 X10^3/uL; Eosinophils% 2.5 % (0-5); Hematocrit 37.2 % (37-47); Hemoglobin 11.8 g/dl (12.0-15.0); Lymphocyte # 2.01 X10^3/ul (4.0); Lymphocyte % 18.2 % (19-41); Mean Corp Hgb Conc 31.7 g/gl (32-36); Mean Corpuscular Hgb 30.5 pg (27.0-32.0); Mean Corpuscular Volume 96.1 fL (81-99); Mean Platelet Vol. 10.3 fl (6.2-12.0); Monocyte# 0.79 X10^3/uL; Monocyte% 7.1 % (0-10); Neutrophil # 7.68 X10^3/uL (2.7-7.7); Neutrophil % 69.6 % (47-70); Platelet Count 501 K/mm3 (150-450); RBC Distribution Width CV 15.4 % (11.6-14.6); RBC Distribution Width SD 53.9 fl (35.1-43.9); Red Blood Count 3.87 M/mm3 (4.2-5.4); White Blood Count 11.1 K/mm3 (4.4-11.0)
[2019-03-20 13:46] LABS: POSITIVE COUNT NO; POSITIVE DIFFERENTIAL NO; POSITIVE MORPHOLOGY NO
[2019-03-20] MEDS: fentaNYL 100 MCG/2 ML Ampul 50 MCG IV ×2 (13:58→16:30)
[2019-03-20] MEDS: DiphenhydrAMINE 50 MG/ML Syringe 25 MG IV (15:09)
--- NOTE | 2019-03-20 15:10 | ED.RN ---
PT STATES FEELING SENSATION OF SWELLING IN THE THROAT AND ITCHING/TINGLING. DR. JESSICA INFORMED, MEDICATION GIVEN PER ORDER. PT STATES SHE NEVER HAS HAD REACTION TO IV CONTRAST OR ATB BEFORE. WILL CONTINUE TO MONITOR. PT PLACED ON MONITOR AND VS UPDATED. ALL VS WNL AT THIS TIME.
--- NOTE | 2019-03-20 15:11 | PCM.HP.STD ---
Problem List (1) Abscess of left lower extremity Status: Acute (2) PAF (paroxysmal atrial fibrillation) Status: Chronic (3) HTN (hypertension) Status: Chronic Qualifiers: Hypertension type: essential hypertension Qualified Code(s): I10 - Essential (primary) hypertension (4) HLD (hyperlipidemia) Status: Chronic Qualifiers: Hyperlipidemia type: unspecified Qualified Code(s): E78.5 - Hyperlipidemia, unspecified (5) Anxiety and depression Status: Chronic (6) CKD (chronic kidney disease), stage III Status: Chronic (7) Morbid obesity Status: Chronic (8) Abscess of left lower leg Status: Chronic History of Present Illness Date of Admission: 03/20/19 Chief Complaint: LLE cellulitis, draining abscess. The patient is a 49 y/o F w/ PMHx: CKD stage III, Morbid Obesity, HTN, HLD, GERD, Anxiety and Depression, PAF on Sotalol and Eliquis who presents to the [facility] ED on 03/20/19 with history of left lower extremity inner thigh redness and small wound possibly from folliculitis starting a little over 1 week prior to current presentation with evaluation per her primary care physician on Wednesday with initiation of oral doxycycline at that time with reevaluation on however the region continue to worsen with eventual open drainage of purulent material with fevers and chills. She notes that she is completed nearly the entire prescription of doxycycline with only 3 more pills left. In the ED work-up included T 98.4, heart rate 62, BP 110/64, respiratory rate 21, 96% on room air, BC with WC 11.1, hemoglobin 11.8, platelet 501, BMP with chloride 108, BUN/creatinine 47/1.39, glucose 102, CT of the left lower extremity with findings suggestive of cellulitis with focal soft tissue ulceration/defect in the proximal medial anterior aspect of the left thigh. In the ED patient ministered vancomycin, fentanyl as well as Benadryl. Upon evaluation of patient concern for possible operative intervention needs therefore general surgeon, Dr. Engel was consulted and evaluated the patient in the emergency room with intention to transition from the ED to the OR. Past Medical History Past Medical History (Chronic Problems): Chronic Problems Trochanteric bursitis of left hip (Chronic) Sacroiliitis (Chronic) Sacrococcygeal disorders, not elsewhere classified (Chronic) Ulcer of right lower extremity with fat layer exposed (Chronic) Morbid obesity (Chronic) Bilateral lower extremity edema (Chronic) Ulcer of left lower extremity with fat layer exposed (Chronic) Open wound of second toe of left foot (Chronic) Traumatic, Penetrating. Ulcer of right heel (Chronic) Abscess of left lower leg (Chronic) PAF (paroxysmal atrial fibrillation) (Chronic) HTN (hypertension) (Chronic) HLD (hyperlipidemia) (Chronic) Anxiety and depression (Chronic) CKD (chronic kidney disease), stage III (Chronic) Facet arthropathy, cervical (Chronic) Degenerative disc disease, cervical (Chronic) Cervical spondylosis (Chronic) Allergies amoxicillin trihydrate [From Augmentin] Allergy (Verified 03/20/19 12:48) Hives baclofen Allergy (Verified 03/20/19 12:48) Unknown gabapentin Allergy (Verified 03/20/19 12:48) Unknown Iodinated Contrast- Oral and IV Dye [CONTRASTS] Allergy (Verified 03/20/19 12:48) Anaphylaxis potassium clavulanate [From Augmentin] Allergy (Verified 03/20/19 12:48) Hives shrimp Allergy (Verified 03/20/19 12:48) Unknown valerian root Allergy (Uncoded 03/20/19 12:48) Unknown Home Medications: Ambulatory Orders Medication Instructions Recorded Furosemide [Lasix] 80 mg PO BID 08/01/14 Isosorbide Mononitrate [Imdur] 120 mg PO BID 08/01/14 Apixaban [Eliquis] 5 mg PO BID 05/07/17 Omeprazole [Prilosec] 20 mg PO DAILY 05/07/17 Sotalol HCl [Betapace AF (Beta 80 mg PO BID 05/07/17 Bijan)] cycloBENZAPRine HCl [Flexeril] 10 mg PO TID PRN 07/13/17 Ondansetron [Zofran Odt] 4 mg PO Q8H PRN PRN #10 tablet 10/07/17 Amitriptyline HCl 25 mg PO QHS 06/08/18 Dicyclomine HCl [Bentyl] 10 mg PO 4X/DAY 06/08/18 ALPRAZolam [Xanax] 0.5 mg PO QHS PRN 07/01/18 Albuterol Inhaler [Ventolin Hfa 2 puff INHALATION Q6H PRN PRN 11/10/18 (SP)] Amlodipine [Norvasc] 10 mg PO DAILY 11/10/18 Colestipol Tablet [Colestid Tablet] 3 gm PO BID 11/10/18 Doxycycline Monohydrate [Monodox] 100 mg PO BID 11/10/18 Meclizine HCl [Antivert] 25 mg PO TID PRN 11/10/18 Nystatin Powder [Mycostatin Powder] 1 applic TOPICAL 4X/DAY PRN PRN 11/10/18 Sertraline HCl [Zoloft] 50 mg PO QHS 11/10/18 Sumatriptan Succinate [Imitrex] 100 mg PO .X1 PRN 11/10/18 Ergocalciferol (Vitamin D2) 50,000 unit PO MOFR 03/20/19 [Vitamin D2] Spironolactone [Aldactone] 25 mg PO DAILY 03/20/19 Topiramate 100 mg PO TID 03/20/19 Surgical History: - - Hysterectomy, partial gastric bypass, cholecystectomy, appendectomy. 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 Paternal History Items: - - Patient notes a paternal family history of coronary disease, history of NC, passed in his 60s. Review of Systems Constitutional: Reports: Anorexia, Chills, Fever, Malaise, Weakness, Fatigue. Denies: Weight Change HEENT: Denies: Head Aches, Sinus Congestion, Sinus Drainage Cardiovascular: Denies: Chest Pain, Palpitations Respiratory: Reports: Shortness of Breath. Denies: Cough, Shortness of breath at rest, Sputum production Gastrointestinal: Reports: Nausea. Denies: Abdominal Pain, Vomiting Genitourinary: Denies: Dysuria Musculoskeletal: Reports: Back Pain, Joint Pain. Denies: Joint Tenderness Skin: Reports: Skin Changes, Wounds. Denies: Rash Neurological: Denies: Numbness, Tingling, Focal weakness Psychiatric: Reports: Anxiety, Depression. Denies: Homicidal Ideations, Suicidal Ideations Hematologic/ Lymphatic: Reports: Anemia. Denies: Easy Bruising, Easy Bleeding VTE Information - Inpt Only VTE Present on Admission: No VTE Mechan Device Prophylaxis: SCD's VTE Pharm Prophylaxis ordered?: Yes Patient Problems: Active and Suspected Problems Abscess of left lower extremity (Acute) Subjective: Seated upright in the ED bed, fatigued appearance, notes ongoing left lower extremity discomfort and drainage. Objective: Physical Examination: General: awake, alert, oriented x 3 and cooperative, seated upright in the ED bed in no apparent distress, Mouna mildly ill-appearing. Skin: normal color, turgor, no icterus, cyanosis except BL LE chronic venous stasis changes as well as L anterior medial thigh region of cellulitis and open draining abscess with notable region of induration, TTP, able to express material with pressure as well as notable intertrigo beneath the breasts and in the groin folds as well as underneath the abdominal folds. HEENT: AT/NC, EOMI, PERRLA, mildly dry MM, no carotid bruits or JVD noted. Lungs: CTA bilaterally, moderate effort, moderate decrease BL bases, no rales, ronchi or wheezing. Heart: Regular rate and rhythm; no gallop, rub audible. Abdomen: soft, morbidly obese, NTTP, ND difficult to assess given morbid obesity, normal BS, difficult to assess HSM secondary to morbidly obese habitus. Extremities: no cyanosis, clubbing, bilateral lower extremity chronic venous skin changes with ankle to distal enciso edema. Neurological: patient awake, alert, oriented x 3; cognitive function intact; pupils equally reactive to light and accomodation; cranial nerves II-XII grossly normal, moving all 4 extremities although some limitation left lower extremity given discomfort, no focal deficits, strength severely global decrease secondary to acute presentation and cold remedies especially morbidly obese status. Psychiatric: affect appears fatigued, no acute evidence of depressive or anxiety feelings. - Physical Exam Vital Signs Temp Pulse Resp BP Pulse Ox 98.4 F 92 17 145/68 H 97 03/20/19 13:45 03/20/19 13:45 03/20/19 13:45 03/20/19 13:45 03/20/19 13:45 Oxygen Delivery Method Room Air Weight: 458 lb Body Mass Index (BMI) 76.2 Laboratory Tests Past 24 Hrs 03/20/19 03/20/19 13:16 13:16 WBC 11.1 H RBC 3.87 L Hgb 11.8 L Hct 37.2 MCV 96.1 MCH 30.5 MCHC 31.7 L RDW 15.4 H RDW Differential 53.9 H Plt Count 501 H MPV 10.3 Immature Gran % (Auto) 1.600 H Neut % (Auto) 69.6 Lymph % (Auto) 18.2 L [place] % (Auto) 7.1 Eos % (Auto) 2.5 Baso % (Auto) 1.0 Absolute Neuts (auto) 7.7 Absolute Lymphs (auto) 2.01 Total Counted Not Reportable Sodium 139 Potassium 4.1 Chloride 108 H Carbon Dioxide 22.0 Anion Gap 9 BUN 47 H Creatinine 1.39 H Estim Creat Clear Calc 44.54 Est GFR (MDRD) Af Amer 52 L Est GFR (MDRD) Non-Af 43 L BUN/Creatinine Ratio 33.8 H Glucose 102 Calcium 9.1 Assessment/Plan All Active Problems Toe ulcer, right (Acute) Abscess of left lower extremity (Acute) The patient is a 49 y/o F w/ PMHx: CKD stage III, Morbid Obesity, HTN, HLD, GERD, Anxiety and Depression, PAF on Sotalol and Eliquis who presents to the [facility] ED on 03/20/19 with history of left lower extremity inner thigh redness and small wound possibly from folliculitis starting a little over 1 week prior to current presentation with evaluation per her primary care physician on Wednesday with initiation of oral doxycycline at that time with reevaluation on however the region continue to worsen with eventual open drainage of purulent material with fevers and chills. (1) Left Lower Extremity Cellulitis and Abscess: ED work-up included T 98.4, heart rate 62, BP 110/64, respiratory rate 21, 96% on room air, BC with WC 11.1, hemoglobin 11.8, platelet 501, BMP with chloride 108, BUN/creatinine 47/1.39, glucose 102, CT of the left lower extremity with findings suggestive of cellulitis with focal soft tissue ulceration/defect in the proximal medial anterior aspect of the left thigh. In the ED patient ministered vancomycin, fentanyl as well as Benadryl. Upon evaluation of patient concern for possible operative intervention needs therefore general surgeon, Dr. Engel was consulted and evaluated the patient in the emergency room with intention to transition from the ED to the OR. Following operative intervention will admit to medical surgical floor, maintain on IV vancomycin and Rocephin pending wound culture and wound MRSA PCR which have been requested, plan repeat CBC in a.m, continue affected extremity elevation above heart when seated and in bed, monitor erythema outline with VS checks. (2) Hypertension: Continue home regimen including Norvasc, Lasix, isosorbide, spironolactone, PRN hydralazine. (3) PAF: We will continue home sotalol and Eliquis regimen. (4) Chronic normocytic anemia: Admission hemoglobin 11.8, baseline 11, stable, encourage continued outpatient evaluation. (5) Chronic Kidney Disease Stage III: Admission BUN/Cr 47/1.39, baseline renal function 1.1-1.2, repeat BMP in AM. (6) Anxiety and depression: We will continue home Xanax and sertraline regimen. (7) Morbid Obesity: Weight loss and lifestyle changes encouraged, nutrition consulted. (8) Chronic migraines: We will continue home topiramate regimen. (9) Intertrigo: We will continue home nystatin powder regimen. (10) GERD: Continue home PPI. (11) DVT prophylaxis: SCDs, Lovenox. Code Visit Inpatient E&M: 83146 Init Hosp L3
--- NOTE | 2019-03-20 15:20 | ABS_PTH ---
PATIENT: QUINTEN YARBROUGH LOC: MS3 U#:[id number] AGE/SX: 49/F ROOM: MS317 RE03/20/[address]: Dr. Eugenia Segundo MD : 1970 BED: 1 DIS: 03/23/2019 SPEC #: [id number] RECD: 03/21/19 07:58 STATUS: ZAY PIMENTELKasi #: [id number] NYLA: 03/20/19 15:[address]: Henry Engel DEPT: SURGICAL PATHOLOGY RECD BY: Jenise Haynes ENTERED: 03/21/19 09:09 SP TYPE: Abscess OTHR DR: MD Dr. Andres Hoskins MD Dr. Ghasem E Ashelfah, MD Tissues: Left leg Procedures: Surgery Specimen Level III HEADER OPERATION: Incision, drainage, debridement, abscess leg PRE-OP DIAGNOSIS: Abscess, left leg TISSUE SUBMITTED: Left leg abscess, infected tissue MICROSCOPIC DIAGNOSIS Left leg abscess, debridement: Adipose tissue with fat necrosis, acute and chronic inflammation, abscess and granulation tissue formation. CE:edison 03/22/19 MICROSCOPIC DESCRIPTION Slides are reviewed. GROSS DESCRIPTION Received in fixative is one container labeled with the patient's name and designated left leg abscess, infected tissue. The specimen consists of an irregular piece of krueger, indurated tissue measuring 4 x 2.5 x 1.5 cm. Sections do not reveal any mass lesion. Specialty Person sections are submitted in two cassettes. / SJ:edison 03/21/19 TC:2 CPT: 19381
--- NOTE | 2019-03-20 16:33 | PCM.CONS.GEN ---
Problem List (1) Abscess of left lower leg Status: Acute Reason for Consult Date of Consultation: 03/20/19 History of Present Illness: The patient is a 49 F with a left thigh abscess. This started about a week ago. It was draining. She saw her PCP and was started on Bactrim. This is getting worse. It is draining more, more erythematous, and more painful. Patient has a history of cutaneous infections and ulcers. This is new over the past week. Patient denies fever or systemic symptoms. CT scan shows open wound with cellulitis extending down towards the fascia. Past Medical History Past Medical History (Chronic Problems): Chronic Problems Trochanteric bursitis of left hip (Chronic) Sacroiliitis (Chronic) Sacrococcygeal disorders, not elsewhere classified (Chronic) Ulcer of right lower extremity with fat layer exposed (Chronic) Morbid obesity (Chronic) Bilateral lower extremity edema (Chronic) Ulcer of left lower extremity with fat layer exposed (Chronic) Open wound of second toe of left foot (Chronic) Traumatic, Penetrating. Ulcer of right heel (Chronic) Facet arthropathy, cervical (Chronic) Degenerative disc disease, cervical (Chronic) Cervical spondylosis (Chronic) Allergies amoxicillin trihydrate [From Augmentin] Allergy (Verified 03/20/19 12:48) Hives baclofen Allergy (Verified 03/20/19 12:48) Unknown gabapentin Allergy (Verified 03/20/19 12:48) Unknown Iodinated Contrast- Oral and IV Dye [CONTRASTS] Allergy (Verified 03/20/19 12:48) Anaphylaxis potassium clavulanate [From Augmentin] Allergy (Verified 03/20/19 12:48) Hives shrimp Allergy (Verified 03/20/19 12:48) Unknown valerian root Allergy (Uncoded 03/20/19 12:48) Unknown Home Medications: Ambulatory Orders Medication Instructions Recorded Furosemide [Lasix] 80 mg PO BID 08/01/14 Isosorbide Mononitrate [Imdur] 120 mg PO BID 08/01/14 Apixaban [Eliquis] 5 mg PO BID 05/07/17 Omeprazole [Prilosec] 20 mg PO DAILY 05/07/17 Sotalol HCl [Betapace AF (Beta 80 mg PO BID 05/07/17 Bijan)] cycloBENZAPRine HCl [Flexeril] 10 mg PO TID PRN 10/10/17 Ondansetron [Zofran Odt] 4 mg PO Q8H PRN PRN #10 tablet 10/07/17 Amitriptyline HCl 25 mg PO QHS 06/08/18 Dicyclomine HCl [Bentyl] 10 mg PO 4X/DAY 06/08/18 ALPRAZolam [Xanax] 0.5 mg PO QHS PRN 07/01/18 Albuterol Inhaler [Ventolin Hfa 2 puff INHALATION Q6H PRN PRN 11/10/18 (SP)] Amlodipine [Norvasc] 10 mg PO DAILY 11/10/18 Colestipol Tablet [Colestid Tablet] 3 gm PO BID 11/10/18 Doxycycline Monohydrate [Monodox] 100 mg PO BID 11/10/18 Meclizine HCl [Antivert] 25 mg PO TID PRN 11/10/18 Nystatin Powder [Mycostatin Powder] 1 applic TOPICAL 4X/DAY PRN PRN 11/10/18 Sertraline HCl [Zoloft] 50 mg PO QHS 11/10/18 Sumatriptan Succinate [Imitrex] 100 mg PO .X1 PRN 11/10/18 Ergocalciferol (Vitamin D2) 50,000 unit PO MOFR 03/20/19 [Vitamin D2] Spironolactone [Aldactone] 25 mg PO DAILY 03/20/19 Topiramate 100 mg PO TID 03/20/19 Smoking Status: Never smoker Tobacco Use: Secondhand - *Family History Maternal History Items: No pertinent history Review of Systems Constitutional: Denies: Chills, Fever Cardiovascular: Denies: Chest Pain, Chest Pressure, Chest Tightness, Palpitations Respiratory: Denies: Cough, Hemoptysis, Shortness of breath at rest, Shortness of breath upon exertion, Wheezing Gastrointestinal: Denies: Abdominal Pain, Constipation, Diarrhea, Hematemesis, Nausea, Melena, Vomiting Musculoskeletal: Reports: Leg Pain Patient Problems: Active and Suspected Problems Abscess of left lower leg (Acute) - Physical Exam General: Alert, Oriented x3 HEENT: Atraumatic, PERRLA, EOMI, Normocephalic Neck: Supple, No JVD Lungs: Clear to auscultation Cardiovascular: Regular rate, Regular Rhythm, No murmurs Abdomen: Bowel Sounds Present, Soft, Non Tender, Non-Distended, Obese Extremities: - - Patient has significant cellulitis of the left medial thigh purulent material is identified this extends quite deep into the fascia and is extremely tender surrounding skin is red and hot Vital Signs Temp Pulse Resp BP Pulse Ox 98.5 F 63 21 H 112/64 98 03/20/19 15:00 03/20/19 15:26 03/20/19 15:26 03/20/19 15:26 03/20/19 15:26 Oxygen Delivery Method Room Air Weight: 458 lb Body Mass Index (BMI) 76.2 Laboratory Tests Past 24 Hrs 03/20/19 03/20/19 13:16 13:16 WBC 11.1 H RBC 3.87 L Hgb 11.8 L Hct 37.2 MCV 96.1 MCH 30.5 MCHC 31.7 L RDW 15.4 H RDW Differential 53.9 H Plt Count 501 H MPV 10.3 Immature Gran % (Auto) 1.600 H Neut % (Auto) 69.6 Lymph % (Auto) 18.2 L [place] % (Auto) 7.1 Eos % (Auto) 2.5 Baso % (Auto) 1.0 Absolute Neuts (auto) 7.7 Absolute Lymphs (auto) 2.01 Total Counted Not Reportable Sodium 139 Potassium 4.1 Chloride 108 H Carbon Dioxide 22.0 Anion Gap 9 BUN 47 H Creatinine 1.39 H Estim Creat Clear Calc 44.54 Est GFR (MDRD) Af Amer 52 L Est GFR (MDRD) Non-Af 43 L BUN/Creatinine Ratio 33.8 H Glucose 102 Calcium 9.1 Assessment/Plan All Active Problems Toe ulcer, right (Acute) Abscess of left lower leg (Acute) I plan to take the patient to the OR and do a formal debridement of the medial aspect of her left thigh. Risks to include bleeding infection and possible need to further treatment with more surgery. Patient is aware that this is a significant infection and will not be able to be primarily closed. All questions asked were answered she agrees to proceed.
--- NOTE | 2019-03-20 19:43 | PCM.OPRPT ---
Problem List (1) Abscess of left lower leg Status: Chronic Report of Operation Date of Procedure: 03/20/19 Pre-Operative Diagnosis: Abscess to left leg Post-Operative Diagnosis: Same Surgery/Procedure Performed:: I&D of abscess to left leg Type of Anesthesia:: General Anesthesiologist: Arden Espinosa Estimated Blood Loss (mL): < 25 cc Description of Procedure: She was brought into the operating room placed in the supine position under excellent general anesthetic left leg was sterilely prepped and draped in the usual fashion. I ellipsed out an old abscess cavity removing all the purulent material obtaining deep wound cultures. I took this all the way down to the fascia using electrocautery for good hemostasis and she was still on her Xarelto. The leg had some significant cellulitis but there were no other undrained pus pockets. The wound was packed with Betadine soaked Kerlix. Sterile dressings were applied. The patient tolerated the procedure well. - Admit VTE Documentation VTE Present on Admission: No VTE Mechan Device Prophylaxis: None - Patient was on Xarelto VTE Pharm Prophylaxis ordered?: No Reason prophylaxis not ordered:: Treatment Not Indicated
--- NOTE | 2019-03-20 20:01 | PCM.RX.CS ---
Consult Pharmacy has been consulted to manage selected antiobiotic: Vancomycin Type of Consult: New start Suspected Infection: Skin/Soft tissue Labs: Sodium 139 mmol/L (136-145) 03/20/19 13:16 Potassium 4.1 mmol/L (3.5-5.1) 03/20/19 13:16 Chloride 108 mmol/L (98-107) H 03/20/19 13:16 Carbon Dioxide 22.0 mmol/L (21.0-32.0) 03/20/19 13:16 Anion Gap 9 (5-15) 03/20/19 13:16 BUN 47 mg/dL (7-18) H 03/20/19 13:16 Creatinine 1.39 mg/dL (0.55-1.02) H 03/20/19 13:16 Est GFR (MDRD) Af Amer 52 mL/min (>60) L 03/20/19 13:16 Est GFR (MDRD) Non-Af 43 mL/min (>60) L 03/20/19 13:16 BUN/Creatinine Ratio 33.8 RATIO (10-20) H 03/20/19 13:16 Glucose 102 mg/dL (74-106) 03/20/19 13:16 Weight used for dosin lb 4.073 oz Estimated Creatinine Clearance: 91 Goal Trough: 10-15 mcg/mL Pharmacy Plan for Drug Dosing: Pharmacy Service will continue to monitor and adjust dosing as required. Vancomycin 2000mg given in ED at 1400 Calculated dose of 1750mg q12h for goal trough of 10-15 Vancomycin Trough to be done 03/22 at 0200 Follow-Up Labs: Trough Vancomycin
[2019-03-20] MEDS: Ondansetron 4 MG/2 ML Vial IV (20:11)
[2019-03-20] MEDS: 0.9% Normal Saline 1,000 ML 100 ML IV (20:11)
[2019-03-20] MEDS: Morphine 2 MG/ML Syringe IV (20:11)
[2019-03-20 20:28] LABS: Magnesium 3.1 mg/dL (1.6-2.6)
[2019-03-20 20:52] LABS: Hemoglobin A1c 6.1 % (4.2-6.3)
[2019-03-20] MEDS: Ceftriaxone 1 GM/50 ML BAG IV (21:34)
[2019-03-20] MEDS: Sotalol Hydrochloride 80 MG Tablet PO (21:40)
[2019-03-20] MEDS: Nystatin Powder 15gm Bottle 1 APPLIC TOPICAL (21:40)
[2019-03-20] MEDS: Dicyclomine 10 MG Capsule PO (21:40)
[2019-03-20] MEDS: Amitriptyline 25 MG Tablet PO (21:41)
[2019-03-20] MEDS: Isosorbide Mononitrate 60 MG Tablet PO (21:41)
[2019-03-20] MEDS: APIXABAN 5 MG TABLET PO (21:41)
[2019-03-20] MEDS: Sertraline 50 MG Tablet PO (21:41)
[2019-03-20 22:52] LABS: Probe Check PASS; Staph aureus DNA By PCR POSITIVE (Negative)
[2019-03-20 22:53] LABS: M R Staph aureus DNA By PCR POSITIVE (Negative)
[2019-03-21] VITALS (9 sets, daily range): BP systolic 94–114; BP diastolic 42–68; PULSE 53–65; RESP 20–22; TEMP 36.4–36.8; O2SAT 91–99
[2019-03-21] MEDS: MELATONIN 3 MG TABLET PO ×2 (00:09→21:31)
[2019-03-21] MEDS: Morphine 2 MG/ML Syringe IV (00:09)
[2019-03-21 06:11] LABS: Absolute Lymphocyte Count 1.43 X10^3/ul (0.83-4.51); Absolute Neutrophil Count 5.3 X10^3/uL (2.0-7.7); Basophil# 0.03 X10^3/uL; Basophil% 0.4 % (0-1); Eosinophil# 0.17 X10^3/uL; Eosinophils% 2.2 % (0-5); Hematocrit 33.4 % (37-47); Hemoglobin 10.2 g/dl (12.0-15.0); Lymphocyte # 1.43 X10^3/ul (4.0); Lymphocyte % 18.3 % (19-41); Mean Corp Hgb Conc 30.5 g/gl (32-36); Mean Corpuscular Hgb 30.4 pg (27.0-32.0); Mean Corpuscular Volume 99.7 fL (81-99); Mean Platelet Vol. 10.4 fl (6.2-12.0); Monocyte# 0.75 X10^3/uL; Monocyte% 9.6 % (0-10); Neutrophil # 5.31 X10^3/uL (2.7-7.7); POSITIVE COUNT NO; POSITIVE DIFFERENTIAL NO; POSITIVE MORPHOLOGY NO; Platelet Count 345 K/mm3 (150-450); RBC Distribution Width CV 15.6 % (11.6-14.6); RBC Distribution Width SD 57.2 fl (35.1-43.9); Red Blood Count 3.35 M/mm3 (4.2-5.4); White Blood Count 7.8 K/mm3 (4.4-11.0)
[2019-03-21] MEDS: Dicyclomine 10 MG Capsule PO ×4 (06:13→21:31)
[2019-03-21] MEDS: HYDROcodone Bitartrate/Apap 5/325 Tablet PO ×3 (06:13→20:55)
[2019-03-21 06:18] LABS: Anion Gap 9 (5-15); BUN 41 mg/dL (7-18); BUN/Creat Ratio 33.9 RATIO (10-20); Calcium,Total 8.1 mg/dL (8.5-10.1); Chloride 113 mmol/L (98-107); Creatinine, Serum 1.21 mg/dL (0.55-1.02); EST Glomerular Filtration Rate 51 mL/min (>60); Est Glom Filt Rate - Afr Amer 61 mL/min (>60); Estimated Creatinine Clearance 51.16 ml/min; Glucose 104 mg/dL (74-106); Potassium 4.3 mmol/L (3.5-5.1); Sodium Level 141 mmol/L (136-145)
[2019-03-21] MEDS: Ferrous Sulfate 325 MG Tablet PO (08:39)
[2019-03-21] MEDS: Nystatin Powder 15gm Bottle 1 APPLIC TOPICAL ×4 (08:39→21:30)
[2019-03-21] MEDS: 0.9% Normal Saline 1,000 ML 100 ML IV ×2 (08:39→22:58)
[2019-03-21] MEDS: Ceftriaxone 1 GM/50 ML BAG IV (09:16)
[2019-03-21] MEDS: Ondansetron ODT 4 MG Tablet PO (09:16)
--- NOTE | 2019-03-21 09:24 | PCM.PROGNOTE ---
Patient Problems: Active and Suspected Problems Abscess of left lower extremity (Acute) Subjective: Chief complaint: Follow-up after admission for acute left lower extremity cellulitis/abscess, status post incision and drainage. Patient seen and examined. No acute events overnight. This morning, she complained of nausea, no vomiting. She denies dizziness or lightheadedness. She complained of left leg pain but it is manageable. She has been afebrile. Her blood pressure has been borderline but it is her baseline, asymptomatic. Other vital signs are stable. - Physical Exam General: Alert, Oriented x3, Cooperative, No apparent distress HEENT: Atraumatic, PERRLA, EOMI, Normocephalic Oral: Moist Mucosa, No Gingival or Mucosal Lesions/ Ulcerations Neck: Supple, No JVD, Negative Carotid Bruits, Trachea Midline, Thyroid Normal Size and Texture Lungs: Clear to auscultation, No rhonchi, No wheeze, No rales, Diminished Cardiovascular: Regular rate, Regular Rhythm, Normal S1, Normal S2, No murmurs, PMI Normal Abdomen: Bowel Sounds Present, Soft, Non Tender, Non-Distended, No Hepato-splenomegaly, Obese Extremities: No clubbing, No cyanosis, Edema Skin: No rashes, Ulcer/ Wound Lymphatic: No Cervical, Supraclavicular, or Inguinal Adenopathy Neurological: Cranial nerves II-XII grossly intact, Motor Exam 5/5 strength throughout Psych/Mental Status: Normal Affect, Appropriate, Alert and oriented to time, place, person, mood and affect Vital Signs Temp Pulse Resp BP Pulse Ox 97.7 F L 57 L 20 H 94/49 L 97 03/21/19 08:32 03/21/19 08:32 03/21/19 08:32 03/21/19 08:32 03/21/19 08:32 Oxygen Delivery Method Room Air Weight: 455 lb 4.073 oz Body Mass Index (BMI) 75.7 Intake and Output for Last 24 Hours 03/19/19 03/20/19 03/21/19 23:59 23:59 23:59 Intake Total 500 / 1498 2224 / 2224 Output Total 750 / 750 Balance 500 / 1048 1474 / 1474 Laboratory Tests Past 24 Hrs 03/20/19 03/20/19 03/20/19 13:16 13:16 13:16 WBC 11.1 H RBC 3.87 L Hgb 11.8 L Hct 37.2 MCV 96.1 MCH 30.5 MCHC 31.7 L RDW 15.4 H RDW Differential 53.9 H Plt Count 501 H MPV 10.3 Immature Gran % (Auto) 1.600 H Neut % (Auto) 69.6 Lymph % (Auto) 18.2 L Hind[place] % (Auto) 7.1 Eos % (Auto) 2.5 Baso % (Auto) 1.0 Absolute Neuts (auto) 7.7 Absolute Lymphs (auto) 2.01 Total Counted Not Reportable Sodium 139 Potassium 4.1 Chloride 108 H Carbon Dioxide 22.0 Anion Gap 9 BUN 47 H Creatinine 1.39 H Estim Creat Clear Calc 44.54 Est GFR (MDRD) Af Amer 52 L Est GFR (MDRD) Non-Af 43 L BUN/Creatinine Ratio 33.8 H Glucose 102 Hemoglobin A1c Calcium 9.1 Magnesium 3.1 H S.aureus Protein A PCR MRSA (PCR) 03/20/19 03/20/19 03/21/19 13:16 18:48 05:15 WBC 7.8 RBC 3.35 L Hgb 10.2 L Hct 33.4 L MCV 99.7 H MCH 30.4 MCHC 30.5 L RDW 15.6 H RDW Differential 57.2 H Plt Count 345 MPV 10.4 Immature Gran % (Auto) 1.500 H Neut % (Auto) 68.0 Lymph % (Auto) 18.3 L [place] % (Auto) 9.6 Eos % (Auto) 2.2 Baso % (Auto) 0.4 Absolute Neuts (auto) 5.3 Absolute Lymphs (auto) 1.43 Total Counted Not Reportable Sodium Potassium Chloride Carbon Dioxide Anion Gap BUN Creatinine Estim Creat Clear Calc Est GFR (MDRD) Af Amer Est GFR (MDRD) Non-Af BUN/Creatinine Ratio Glucose Hemoglobin A1c 6.1 Calcium Magnesium S.aureus Protein A PCR POSITIVE H MRSA (PCR) POSITIVE H 03/21/19 05:15 WBC RBC Hgb Hct MCV MCH MCHC RDW RDW Differential Plt Count MPV Immature Gran % (Auto) Neut % (Auto) Lymph % (Auto) Hind[place] % (Auto) Eos % (Auto) Baso % (Auto) Absolute Neuts (auto) Absolute Lymphs (auto) Total Counted Sodium 141 Potassium 4.3 Chloride 113 H Carbon Dioxide 19.0 L Anion Gap 9 BUN 41 H Creatinine 1.21 H Estim Creat Clear Calc 51.16 Est GFR (MDRD) Af Amer 61 Est GFR (MDRD) Non-Af 51 L BUN/Creatinine Ratio 33.9 H Glucose 104 Hemoglobin A1c Calcium 8.1 L Magnesium S.aureus Protein A PCR MRSA (PCR) Clinical Impression(s) from Imaging Studies Lower Extremity CT 03/20/19 13:02 IMPRESSION: Findings suggestive of a cellulitis. Focal soft tissue ulceration/defect in the proximal medial anterior aspect of the left thigh. Electronically Signed: Sabino Ackerman, at 15:16 EDT , Service support , Medical Necessity - Tobacco Use Smoking Status: Never smoker Tobacco Use: Secondhand Assessment/Plan All Active Problems Abscess of left lower extremity (Acute) The patient is a 49 y/o F patient presented to the emergency room because of history of left lower extremity inner thigh redness and small wound possibly from folliculitis starting a little over 1 week prior to current presentation with evaluation per her primary care physician on Wednesday with initiation of oral doxycycline at that time with reevaluation on however the region continue to worsen with eventual open drainage of purulent material with fevers and chills. (1) Left Lower Extremity Cellulitis and Abscess: Status post incision and drainage, postoperative day 1. She is on IV Rocephin and vancomycin. She has been afebrile, white blood count is back to normal. Wound and urine cultures are pending. Her vital signs are stable. MRSA screen was positive. General surgery on the case. Plan to continue same treatment. (2) Hypertension: Blood pressure has been borderline and according to the patient, that is her baseline. Continue Norvasc, Lasix, isosorbide, spironolactone, PRN hydralazine. (3) PAF: She is in sinus rhythm, rate is controlled. Continue sotalol and Eliquis regimen. (4) Chronic normocytic anemia: Admission hemoglobin 11.8, baseline 11, stable, today's hemoglobin is 10.2 g/dL. This is likely because of blood loss during surgery. Plan to monitor. (5) Chronic Kidney Disease Stage III: Admission BUN/Cr 47/1.39, baseline renal function 1.1-1.2, today's creatinine is 1.21, stable at baseline. (6) Anxiety and depression: continue Xanax and sertraline regimen. (7) Morbid Obesity: Weight loss and lifestyle changes encouraged, nutrition consulted. (8) Chronic migraines: continue topiramate. (9) GERD: Continue PPI. (10) DVT prophylaxis: SCDs, Lovenox. This note was generated with [employer] dictation software. It may contain incorrect words, spelling, and punctuation that were not noted in checking the note before signing. Code Visit Inpatient E&M: 02919 Subs Hosp L2
[2019-03-21] MEDS: Sotalol Hydrochloride 80 MG Tablet PO ×2 (10:17→21:31)
[2019-03-21] MEDS: Pantoprazole Sodium 20 MG Tablet PO (10:17)
[2019-03-21] MEDS: Furosemide 80 MG Tablet PO (10:17)
[2019-03-21] MEDS: APIXABAN 5 MG TABLET PO ×2 (10:17→21:31)
--- NOTE | 2019-03-21 11:28 | CASEMGMT ---
Addendum entered by Julieth Hassan 03/21/19 12:34: AARON called [facility] out of [place], they are current w/pt([phone], fax [phone]). An [employer]ING [employer]PERINTENDENT is going out twice daily to help w/wounds. For any wound supplies, they will need a script along with all discharge instructions. [facility] confirmed they are working on getting an aide for this pt. SW asked about IV antibiotics. They may be able to do IV antibiotics depending on how often they would be needed. SW/CM will keep [facility] informed of pt's needs and discharge plan. SW then received a call back from pt's nurse Pam Magana. SW let her know that SW did speak w/the office at [facility], thanked her for calling this SW back. AARON/CM will continue to follow, plan will be home for home care at discharge. CHUNG Iqbal Addendum entered by Julieth Hassan 03/21/19 12:11: AARON unable to find any agency called [facility]. AARON spoke w/pt again, she states her nurse is Pam Antunez and her number is [phone]. SW called, message left though voicemail is generic so no information left. SW will call PCP to try and find the name of the home care agency. CHUNG Iqbal Original Note: SW met w/pt in room, reviewed prior level of function and discharge plan. PCP: Dr. Wade Specialists: Dr. Mason from [facility], heart doctor. Pt goes to [facility]. Also sees counselor Edwin Chino 2x/week at [facility], sees Leonie Sullivan at [facility] for medication management. Preferred Pharmacy: [facility], prepackaged. When needs a short term medication uses [facility] in [place] Insurance/Prescription benefit: Medicare/Medicaid Living Will/POA: Pt does not have LW/POA, not interested in completing the documents at this time. LNOK/Living arrangements: Pt lives w/niece Shanel in a one story apartment, no steps in. Pt independent w/personal ADL's, meds packaged by [facility]. Pt's niece helps w/cooking and cleaning. Transportation: Pt uses [facility] [employer], through Medicaid. Pt states she will call them to take her home at discharge. DME/HHC: Pt is current w/[facility] for nursing, and they are working on getting pt an aide. Pt has a rollator, shower chair, grab bars. Pt states that [facility] brings the dressing supplies. Plan: Pt plans to return home w/resumption of [facility]. SW called [facility], they state they do not have this pt. SW spoke w/pt, she states it's called [facility], out of [place], not [facility]. SW will work on finding a number for [facility] and call. CHUNG Iqbal
[2019-03-21] MEDS: Acetaminophen 325 MG Tablet 650 MG PO (11:46)
--- NOTE | 2019-03-21 12:04 | NURSING ---
wound photo: left posterior lower leg
--- NOTE | 2019-03-21 12:05 | NURSING ---
wound photo: right posterior lower leg
--- NOTE | 2019-03-21 12:06 | NURSING ---
wound photo: left anterior thigh
--- NOTE | 2019-03-21 12:56 | PCM.PN.SRG ---
Patient Problems: Active and Suspected Problems Abscess of left lower extremity (Acute) Subjective: Patient evaluated resting comfortably in bed. She notes very little to no discomfort of the left anterior thigh wound. She denies nausea, vomiting. - Physical Exam General: Alert, Oriented x3, Cooperative Extremities: - - Left anterior thigh open wound- decreasing cellultitis/erythema. Open wound with dark tissue noted. Vital Signs Temp Pulse Resp BP Pulse Ox 98 F 53 L 20 H 96/45 L 97 03/21/19 10:15 03/21/19 11:40 03/21/19 10:15 03/21/19 11:40 03/21/19 10:15 Oxygen Delivery Method Room Air Weight: 455 lb 4.073 oz Body Mass Index (BMI) 75.7 Intake and Output for Last 24 Hours 03/19/19 03/20/19 03/21/19 23:59 23:59 23:59 Intake Total 500 / 1498 3424 / 3424 Output Total 750 / 750 Balance 500 / 1048 2674 / 2674 Microbiology Past 72 Hours 03/20/19 18:40 Gram Stain - Final Wound Abcess - Aerobic & Anaerobic Swabs Wound Culture - Preliminary Staphylococcus aureus Laboratory Tests Past 24 Hrs 03/20/19 03/20/19 03/20/19 13:16 13:16 13:16 WBC 11.1 H RBC 3.87 L Hgb 11.8 L Hct 37.2 MCV 96.1 MCH 30.5 MCHC 31.7 L RDW 15.4 H RDW Differential 53.9 H Plt Count 501 H MPV 10.3 Immature Gran % (Auto) 1.600 H Neut % (Auto) 69.6 Lymph % (Auto) 18.2 L [place] % (Auto) 7.1 Eos % (Auto) 2.5 Baso % (Auto) 1.0 Absolute Neuts (auto) 7.7 Absolute Lymphs (auto) 2.01 Total Counted Not Reportable Sodium 139 Potassium 4.1 Chloride 108 H Carbon Dioxide 22.0 Anion Gap 9 BUN 47 H Creatinine 1.39 H Estim Creat Clear Calc 44.54 Est GFR (MDRD) Af Amer 52 L Est GFR (MDRD) Non-Af 43 L BUN/Creatinine Ratio 33.8 H Glucose 102 Hemoglobin A1c Calcium 9.1 Magnesium 3.1 H S.aureus Protein A PCR MRSA (PCR) 03/20/19 03/20/1903/21/19 13:16 18:48 05:15 WBC 7.8 RBC 3.35 L Hgb 10.2 L Hct 33.4 L MCV 99.7 H MCH 30.4 MCHC 30.5 L RDW 15.6 H RDW Differential 57.2 H Plt Count 345 MPV 10.4 Immature Gran % (Auto) 1.500 H Neut % (Auto) 68.0 Lymph % (Auto) 18.3 L [place] % (Auto) 9.6 Eos % (Auto) 2.2 Baso % (Auto) 0.4 Absolute Neuts (auto) 5.3 Absolute Lymphs (auto) 1.43 Total Counted Not Reportable Sodium Potassium Chloride Carbon Dioxide Anion Gap BUN Creatinine Estim Creat Clear Calc Est GFR (MDRD) Af Amer Est GFR (MDRD) Non-Af BUN/Creatinine Ratio Glucose Hemoglobin A1c 6.1 Calcium Magnesium S.aureus Protein A PCR POSITIVE H MRSA (PCR) POSITIVE H 03/21/19 05:15 WBC RBC Hgb Hct MCV MCH MCHC RDW RDW Differential Plt Count MPV Immature Gran % (Auto) Neut % (Auto) Lymph % (Auto) [place] % (Auto) Eos % (Auto) Baso % (Auto) Absolute Neuts (auto) Absolute Lymphs (auto) Total Counted Sodium 141 Potassium 4.3 Chloride 113 H Carbon Dioxide 19.0 L Anion Gap 9 BUN 41 H Creatinine 1.21 H Estim Creat Clear Calc 51.16 Est GFR (MDRD) Af Amer 61 Est GFR (MDRD) Non-Af 51 L BUN/Creatinine Ratio 33.9 H Glucose 104 Hemoglobin A1c Calcium 8.1 L Magnesium S.aureus Protein A PCR MRSA (PCR) Medical Necessity - Tobacco Use Smoking Status: Never smoker Tobacco Use: Secondhand Assessment/Plan All Active Problems Abscess of left lower extremity (Acute) I am following this patient in conjunction with Dr. Engel S/p left anterior thigh I&D abscess Wet to dry dressing changes JOSUE Wright to see patient We will continue to follow this patient. Code Visit Inpatient E&M: 81406 Subs Hosp L1 - No charge
--- NOTE | 2019-03-21 13:27 | CHAPLAIN ---
Type of Pastoral Visit _x__ Initial Visit ___ Follow-up Visit ___ On-call Visit ___ General Patient Visit ___ Spiritual Assessment ___ Family Conference ___ Bereavement ___ Rapid Response ___ Code Blue ___ Other (describe below) Pastoral Care Referral From _x__ Patient ___ Family ___ Nurse ___ Physician ___ Human Resource Advisor ___ Automobile Accessories Installer ___ Other (describe below) Sacrament/Intervention _x__ Active listening ___ Anointing ___ Caodaism ___ Bereavement ___ Communion _x__ Sharon exploration ___ _x__ Life review _x__ Prayer ___ Reconciliation ___ Sacrament of Sick _x__ Supportive presence ___ Wedding ___ Other (describe below) Pastoral Comments
[2019-03-21] MEDS: Ondansetron 4 MG/2 ML Vial IV (17:45)
[2019-03-21] MEDS: 0.9% NaCl Peripheral Flush Adult/Peds IV (17:45)
[2019-03-21] MEDS: Isosorbide Mononitrate 60 MG Tablet PO (21:31)
[2019-03-21] MEDS: Amitriptyline 25 MG Tablet PO (21:31)
[2019-03-21] MEDS: Sertraline 50 MG Tablet PO (21:31)
[2019-03-22 01:51] LABS: Vancomycin, Trough Level 25.7 ug/mL (5.0-15.0)
--- NOTE | 2019-03-22 02:22 | PCM.RX.CS ---
Consult Pharmacy has been consulted to manage selected antiobiotic: Vancomycin Type of Consult: Follow-up Suspected Infection: Skin/Soft tissue Prior Doses of Antibiotics Received/Current Regimen: Medications Discontinued Medications Vancomycin HCl 1,750 mg/ (Sodium Chloride) 535 mls @ 250 mls/hr IV Q12H KIKE Last Admin: 03/22/19 01:54 Dose: Not Given Documented by: Labs: Sodium 141 mmol/L (136-145) 03/21/19 05:15 Potassium 4.3 mmol/L (3.5-5.1) 03/21/19 05:15 Chloride 113 mmol/L (98-107) H 03/21/19 05:15 Carbon Dioxide 19.0 mmol/L (21.0-32.0) L 03/21/19 05:15 9 (5-15) 03/21/19 05:15 BUN 41 mg/dL (7-18) H 03/21/19 05:15 1.21 mg/dL (0.55-1.02) H 03/21/19 05:15 Est GFR (MDRD) Af Amer 61 mL/min (>60) 03/21/19 05:15 Est GFR (MDRD) Non-Af 51 mL/min (>60) L 03/21/19 05:15 33.9 RATIO (10-20) H 03/21/19 05:15 Glucose 104 mg/dL (74-106) 03/21/19 05:15 Vancomycin Trough 25.7 ug/mL (5.0-15.0) H 03/22/19 01:10 Microbiology: Microbiology 03/20/19 18:40 Wound Abcess - Aerobic & Anaerobic Swabs Gram Stain - Final 03/20/19 18:40 Wound Abcess - Aerobic & Anaerobic Swabs Wound Culture - Preliminary Staphylococcus aureus Weight used for dosin.5 kg Estimated Creatinine Clearance: 51 Goal Trough: 10-15 mcg/mL Pharmacy Plan for Drug Dosing: Trough level of 25.7. Held the scheduled dose 03/22/19 @0200. Will redraw random vanco level in 12 hours and re-dose from that level. Pharmacy Service will continue to monitor and adjust dosing as required. Follow-Up Labs: Trough Vancomycin - random Labs to be done on [date and time ordered]: 03/22/19 @1330
[2019-03-22 03:15] VITALS: BP 106/57; PULSE 58; RESP 18; TEMP 36.4; O2SAT 94
[2019-03-22] MEDS: Dicyclomine 10 MG Capsule PO ×4 (05:47→22:30)
[2019-03-22] MEDS: HYDROcodone Bitartrate/Apap 5/325 Tablet PO ×3 (05:47→18:20)
[2019-03-22] MEDS: Pantoprazole Sodium 20 MG Tablet PO (08:35)
[2019-03-22] MEDS: Ferrous Sulfate 325 MG Tablet PO (08:35)
[2019-03-22] MEDS: amLODIPine 10 MG Tablet PO (08:35)
[2019-03-22] MEDS: Furosemide 80 MG Tablet PO ×2 (08:35→17:10)
[2019-03-22] MEDS: Sotalol Hydrochloride 80 MG Tablet PO ×2 (08:36→22:40)
[2019-03-22] MEDS: Spironolactone 25 MG Tablet PO (08:36)
[2019-03-22] MEDS: Isosorbide Mononitrate 60 MG Tablet PO ×2 (08:36→22:30)
--- NOTE | 2019-03-22 08:36 | PCM.PN.SRG ---
Patient Problems: Active and Suspected Problems Abscess of left lower extremity (Acute) Subjective: Patient evaluated resting comfortably in bed. Patient notes very minimal amount of discomfort at the incision site. She notes much improvement since admission. - Physical Exam General: Alert, Oriented x3, Cooperative Skin: Ulcer/ Wound - left anterior thigh- open incision with continued decrease in erythema. Slightly tender to palpation. Wet to dry packing. Wound base improving. Vital Signs Temp Pulse Resp BP Pulse Ox 97.6 F L 58 L 18 106/57 L 94 03/22/19 03:15 03/22/19 03:15 03/22/19 03:15 03/22/19 03:15 03/22/19 03:15 Oxygen Delivery Method Room Air Weight: 455 lb 4.073 oz Body Mass Index (BMI) 75.7 Intake and Output for Last 24 Hours 03/20/19 03/21/19 03/22/19 23:59 23:59 23:59 Intake Total 500 / 1498 4617 / 5746 1842 / 1842 Output Total 1850 / 2850 1999 / 1999 Balance 500 / 1048 2767 / 2896 -158 / -158 Microbiology Past 72 Hours 03/20/19 18:40 Gram Stain - Final Wound Abcess - Aerobic & Anaerobic Swabs Wound Culture - Preliminary Staphylococcus aureus Laboratory Tests Past 24 Hrs 03/22/19 01:10 Vancomycin Trough 25.7 H Medical Necessity - Tobacco Use Smoking Status: Never smoker Tobacco Use: Secondhand Assessment/Plan All Active Problems Abscess of left lower extremity (Acute) I am following this patient in conjunction with Dr. Engel S/p left anterior thigh I&D abscess Wet to dry dressing changes JOSUE Wright to see patient We will continue to follow this patient. Patient to follow-up with wound center after discharge Code Visit Inpatient E&M: 83505 Subs Hosp L1 - No charge/post-op
[2019-03-22 08:40] VITALS: BP 99/47; PULSE 58; RESP 18; TEMP 36.9; O2SAT 97
--- NOTE | 2019-03-22 09:03 | PN_ITS ---
Patient Problems: Active and Suspected Problems Abscess of left lower extremity (Acute) Subjective: Chief complaint: Follow-up after admission for acute left lower extremity cellulitis/abscess, status post incision and drainage. Patient seen and examined. No acute events overnight. She denies any significant complaints. Left leg pain is manageable. Her vital signs are stable, afebrile. - Physical Exam General: Alert, Oriented x3, Cooperative, No apparent distress HEENT: Atraumatic, PERRLA, EOMI, Normocephalic Oral: Moist Mucosa, No Gingival or Mucosal Lesions/ Ulcerations Neck: Supple, No JVD, Negative Carotid Bruits, Trachea Midline, Thyroid Normal Size and Texture Lungs: Clear to auscultation, No rhonchi, No wheeze, No rales, Diminished Cardiovascular: Regular rate, Regular Rhythm, Normal S1, Normal S2, No murmurs, PMI Normal Abdomen: Bowel Sounds Present, Soft, Non Tender, Non-Distended, No Hepato- splenomegaly, Obese Extremities: No clubbing, No cyanosis, Edema Skin: No rashes, Ulcer/ Wound Lymphatic: No Cervical, Supraclavicular, or Inguinal Adenopathy Neurological: Cranial nerves II-XII grossly intact, Neuro grossly intact Psych/Mental Status: Normal Affect, Appropriate, Alert and oriented to time, place, person, mood and affect Vital Signs Temp Pulse Resp BP Pulse Ox 98.4 F 58 L 18 99/47 L 97 03/22/19 08:40 03/22/19 08:40 03/22/19 08:40 03/22/19 08:40 03/22/19 08:40 Oxygen Delivery Method Room Air Weight: 455 lb 4.073 oz Body Mass Index (BMI) 75.7 Intake and Output for Last 24 Hours 03/20/19 03/21/19 03/22/19 23:59 23:59 23:59 Intake Total 500 / 1498 4617 / 5746 1842 / 1842 Output Total 1850 / 2850 1999 / 1999 Balance 500 / 1048 2767 / 2896 -158 / -158 Microbiology Past 72 Hours 03/20/19 18:40 Gram Stain - Final Wound Abcess - Aerobic & Anaerobic Swabs Wound Culture - Preliminary Staphylococcus aureus Laboratory Tests Past 24 Hrs 03/22/19 01:10 Vancomycin Trough 25.7 H Microbiology 03/20/19 18:40 Wound Abcess - Aerobic & Anaerobic Swabs Gram Stain - Final 03/20/19 18:40 Wound Abcess - Aerobic & Anaerobic Swabs Wound Culture - Preliminary Staphylococcus aureus Medical Necessity - Tobacco Use Smoking Status: Never smoker Tobacco Use: Secondhand Assessment/Plan All Active Problems Abscess of left lower extremity (Acute) The patient is a 49 y/o F patient presented to the emergency room because of history of left lower extremity inner thigh redness and small wound possibly from folliculitis starting a little over 1 week prior to current presentation with evaluation per her primary care physician on Wednesday with initiation of oral doxycycline at that time with reevaluation on however the region continue to worsen with eventual open drainage of purulent material with fevers and chills. (1) Left Lower Extremity Cellulitis and Abscess: Status post incision and drainage, postoperative day 2. Remained on IV Rocephin and vancomycin. She has been afebrile, white blood count is back to normal. Wound culture revealed staph aureus, final is pending. Blood cultures pending. Her vital signs are stable. MRSA screen was positive. General surgery on the case. Plan to continue same treatment, possible DC home tomorrow after final results of the wound culture. (2) Hypertension: Blood pressure has been borderline and according to the patient, that is her baseline. Continue Norvasc, Lasix, isosorbide, spironolactone, PRN hydralazine. (3) PAF: She is in sinus rhythm, rate is controlled. Continue sotalol and Eliquis regimen. (4) Chronic normocytic anemia: Admission hemoglobin 11.8, baseline 11, stable, yesterday's hemoglobin is 10.2 g/dL. This is likely because of blood loss during surgery. Plan to monitor. (5) Chronic Kidney Disease Stage III: Admission BUN/Cr 47/1.39, baseline renal function 1.1-1.2, yesterday's creatinine is 1.21, stable at baseline. (6) Anxiety and depression: continue Xanax and sertraline regimen. (7) Morbid Obesity: Weight loss and lifestyle changes encouraged, nutrition consulted. (8) Chronic migraines: continue topiramate. (9) GERD: Continue PPI. (10) DVT prophylaxis: SCDs, Lovenox. This note was generated with [employer] software. It may contain incorrect words, spelling, and punctuation that were not noted in checking the note before signing. Code Visit Inpatient E&M: 60421 Subs Hosp L2
[2019-03-22] MEDS: Nystatin Powder 15gm Bottle 1 APPLIC TOPICAL ×4 (10:37→22:31)
[2019-03-22] MEDS: APIXABAN 5 MG TABLET PO ×2 (10:37→22:35)
[2019-03-22] MEDS: 0.9% Normal Saline 1,000 ML 100 ML IV (11:41)
[2019-03-22] MEDS: Ceftriaxone 1 GM/50 ML BAG IV (11:41)
[2019-03-22] MEDS: Ondansetron 4 MG/2 ML Vial IV (12:54)
[2019-03-22 13:42] LABS: Vancomycin, Random Level 18.4 ug/mL (0.0-15.0)
[2019-03-22 14:47] VITALS: BP 106/60; PULSE 57; RESP 18; TEMP 36.6; O2SAT 98
[2019-03-22] MEDS: DiphenhydrAMINE 25 MG Capsule PO (15:46)
[2019-03-22 20:33] VITALS: BP 118/66; PULSE 62; RESP 18; TEMP 36.6; O2SAT 94
[2019-03-22] MEDS: Sertraline 50 MG Tablet PO (22:31)
[2019-03-22] MEDS: Acetaminophen 325 MG Tablet 650 MG PO (22:32)
[2019-03-22] MEDS: Amitriptyline 25 MG Tablet PO (22:34)
[2019-03-23] MEDS: DiphenhydrAMINE 25 MG Capsule PO (00:11)
[2019-03-23] MEDS: HYDROcodone Bitartrate/Apap 5/325 Tablet PO ×2 (02:08→11:14)
[2019-03-23 02:30] VITALS: BP 112/62; PULSE 60; RESP 18; TEMP 36.6; O2SAT 95
[2019-03-23] MEDS: 0.9% Normal Saline 1,000 ML 100 ML IV (02:41)
[2019-03-23] MEDS: Dicyclomine 10 MG Capsule PO ×2 (06:54→10:07)
--- NOTE | 2019-03-23 07:16 | PCM.PN.SRG ---
Patient Problems: Active and Suspected Problems Abscess of left lower extremity (Acute) Subjective: Patient evaluated resting comfortably in bed. She notes very little discomfort at her wound. Microbiology returned as MRSA. - Physical Exam General: Alert, Oriented x3, Cooperative Skin: Ulcer/ Wound - Left anterior thigh- open wound with minimal granulation tissue and multiple areas of cauterization. Wound was packed with saline dampened gauze and covered with ABD pad. Vital Signs Temp Pulse Resp BP Pulse Ox 97.9 F 60 18 112/62 95 03/23/19 02:30 03/23/19 02:30 03/23/19 02:30 03/23/19 02:30 03/23/19 02:30 Oxygen Delivery Method Room Air Weight: 455 lb 4.073 oz Body Mass Index (BMI) 75.7 Intake and Output for Last 24 Hours 03/21/19 03/22/19 03/23/19 23:59 23:59 23:59 Intake Total 4617 / 5746 3202 / 4838 3125 / 3125 Output Total 1850 / 2850 2000 / 4100 3200 / 3200 Balance 2767 / 2896 1202 / 738 -75 / -75 Microbiology Past 72 Hours 03/20/19 13:23 Blood Culture - Preliminary Blood Culture (Wb) - Right Hand No growth in 48 hours. 03/20/19 13:16 Blood Culture - Preliminary Blood Culture (Wb) - Anticubital Left No growth in 48 hours. 03/20/19 18:40 Gram Stain - Final Wound Abcess - Aerobic & Anaerobic Swabs Wound Culture - Preliminary Meth. resistant Staph. aureus Anaerobic Culture - Preliminary Checking for anaerobes, further studies to follow. Laboratory Tests Past 24 Hrs 03/22/19 13:05 Random Vancomycin 18.4 H Medical Necessity - Tobacco Use Smoking Status: Never smoker Tobacco Use: Secondhand Assessment/Plan All Active Problems Abscess of left lower extremity (Acute) I am following this patient in conjunction with Dr. Engel S/p left anterior thigh I&D abscess Wet to dry dressing changes BID Patient to follow-up with wound center after discharge Possible discharge today Code Visit Inpatient E&M: 62289 Subs Hosp L1 - No charge
[2019-03-23 08:03] VITALS: BP 133/64; PULSE 60; RESP 18; TEMP 36.5; O2SAT 92
[2019-03-23] MEDS: Ferrous Sulfate 325 MG Tablet PO (08:16)
--- NOTE | 2019-03-23 08:35 | DCINST_ITS ---
- Discharge Diagnoses Current Active Problems: Current Active and Chronic Problems Abscess of left lower leg (Chronic) PAF (paroxysmal atrial fibrillation) (Chronic) HTN (hypertension) (Chronic) HLD (hyperlipidemia) (Chronic) Anxiety and depression (Chronic) CKD (chronic kidney disease), stage III (Chronic) Abscess of left lower extremity (Acute) You will use the following diet at home:: Cardiac Your food should be the consistency of: Regular Discharge Activity: Return to Normal Activity Weight Bearing Status: Weight bearing as tolerated Call your doctor if your incision/area has: Continuous Slow Oozing, Increased Pain/ Swelling, Increased Redness, Foul Smelling Discharge, Swelling at the incision site Call your doctor if you observe: Fever of 101 or Higher, Shortness of breath, Dizziness, Fainting spells, Chest pain, Increased palpitations (irregular heartbeat), Uncontrolled pain Additional Instructions: Follow-up with the wound care center in 3 to 4 days. Allergies/Adverse Reactions: Allergies amoxicillin trihydrate [From Augmentin] Allergy (Verified 03/20/19 12:48) Hives baclofen Allergy (Verified 03/20/19 12:48) Unknown gabapentin Allergy (Verified 03/20/19 12:48) Unknown Iodinated Contrast- Oral and IV Dye [CONTRASTS] Allergy (Verified 03/20/19 12:48) Anaphylaxis potassium clavulanate [From Augmentin] Allergy (Verified 03/20/19 12:48) Hives shrimp Allergy (Verified 03/20/19 12:48) Unknown valerian root Allergy (Uncoded 03/20/19 12:48) Unknown Medications to take at Discharge Furosemide [Lasix] 80 mg PO BID 08/01/14 Isosorbide Mononitrate [Imdur] 120 mg PO BID 08/01/14 Apixaban [Eliquis] 5 mg PO BID 05/07/17 Omeprazole [Prilosec] 20 mg PO DAILY 05/07/17 Sotalol HCl [Betapace AF (Beta Bijan)] 80 mg PO BID 05/07/17 cycloBENZAPRine HCl [Flexeril] 10 mg PO TID PRN 07/13/17 Ondansetron [Zofran Odt] 4 mg PO Q8H PRN PRN #10 tablet 10/07/17 Amitriptyline HCl 25 mg PO QHS 06/08/18 Dicyclomine HCl [Bentyl] 10 mg PO 4X/DAY 06/08/18 ALPRAZolam [Xanax] 0.5 mg PO QHS PRN 07/01/18 Albuterol Inhaler [Ventolin Hfa] 2 puff INHALATION Q6H PRN PRN 11/10/18 Amlodipine [Norvasc] 10 mg PO DAILY 11/10/18 Colestipol Tablet [Colestid Tablet] 3 gm PO BID 11/10/18 Meclizine HCl [Antivert] 25 mg PO TID PRN 11/10/18 Nystatin Powder [Mycostatin Powder] 1 applic TOPICAL 4X/DAY PRN PRN 11/10/18 Sertraline HCl [Zoloft] 50 mg PO QHS 11/10/18 Sumatriptan Succinate [Imitrex] 100 mg PO .X1 PRN 11/10/18 Ergocalciferol (Vitamin D2) [Vitamin D2] 50,000 unit PO MOFR 03/20/19 Spironolactone [Aldactone] 25 mg PO DAILY 03/20/19 Topiramate 100 mg PO TID 03/20/19 Clindamycin [Cleocin] 450 mg PO TID #63 cap 03/23/19 Lactobacillus Acidophilus [Acidophilus] 1 tab PO BID #14 tab 03/23/19 The following prescriptions were given: Lactobacillus Acidophilus [Acidophilus] 1 tab PO BID #14 tab Transmission Status: Pending to [facility] [address] Clindamycin [Cleocin] 450 mg PO TID #63 cap Transmission Status: Pending to [facility] [address] Primary Care Physician: Andres Wade MD [Primary Care Provider] - Please follow up with your Primary Care Physician in: 1 WEEK. Test Results: Test results from this visit will be discussed in further detail at your follow- up appointment, if applicable.
[2019-03-23] MEDS: amLODIPine 10 MG Tablet PO (10:07)
[2019-03-23] MEDS: Ceftriaxone 1 GM/50 ML BAG IV (10:07)
[2019-03-23] MEDS: Pantoprazole Sodium 20 MG Tablet PO (10:07)
[2019-03-23] MEDS: Spironolactone 25 MG Tablet PO (10:07)
[2019-03-23] MEDS: APIXABAN 5 MG TABLET PO (10:07)
[2019-03-23] MEDS: Sotalol Hydrochloride 80 MG Tablet PO (10:07)
[2019-03-23] MEDS: Isosorbide Mononitrate 60 MG Tablet PO (10:07)
[2019-03-23] MEDS: Furosemide 80 MG Tablet PO (10:07)
[2019-03-23] MEDS: Nystatin Powder 15gm Bottle 1 APPLIC TOPICAL (10:13)
--- NOTE | 2019-03-23 12:35 | PCM.DC.SUM ---
Discharge Date and Diagnosis Date of Admission: 03/20/19 Date of Discharge: 03/23/19 - Primary Discharge Diagnosis Polymicrobial left lower extremity cellulitis/abscess status post incision and drainage. - Secondary Discharge Diagnosis Chronic Problems Trochanteric bursitis of left hip (Chronic) Sacroiliitis (Chronic) Sacrococcygeal disorders, not elsewhere classified (Chronic) Ulcer of right lower extremity with fat layer exposed (Chronic) Morbid obesity (Chronic) Bilateral lower extremity edema (Chronic) Ulcer of left lower extremity with fat layer exposed (Chronic) Open wound of second toe of left foot (Chronic) Traumatic, Penetrating. Ulcer of right heel (Chronic) Abscess of left lower leg (Chronic) PAF (paroxysmal atrial fibrillation) (Chronic) HTN (hypertension) (Chronic) HLD (hyperlipidemia) (Chronic) Anxiety and depression (Chronic) CKD (chronic kidney disease), stage III (Chronic) Facet arthropathy, cervical (Chronic) Degenerative disc disease, cervical (Chronic) Cervical spondylosis (Chronic) Hospital Course and Treatment Imaging Results: Clinical Impression(s) from Imaging Studies Lower Extremity CT 03/20/19 13:02 IMPRESSION: Findings suggestive of a cellulitis. Focal soft tissue ulceration/defect in the proximal medial anterior aspect of the left thigh. Electronically Signed: Sabino Ackerman, at 15:16 EDT , Service support , Consultations 03/20/19 19:39 Consult: Onc/Wound/personal coach Routine Comment: Dr. Engel, general surgery. Operations: None Procedures: - - Incision and drainage of left lower extremity abscess. Summary of Care Provided: Patient seen and examined on the day of discharge and appeared to be stable to be discharged home. She has no complaints and her vital signs were stable. The patient is a 49 y/o F patient presented to the emergency room because of history of left lower extremity inner thigh redness and small wound possibly from folliculitis starting a little over 1 week prior to current presentation, found to have left lower extremity abscess with cellulitis and she underwent incision and drainage. (1) polymicrobial left Lower Extremity Cellulitis and Abscess: Status post incision and drainage by general surgery. Patient was treated with IV Rocephin and vancomycin. Her MRSA wound screen was positive. Wound culture revealed MRSA, corynebacterium stratum, Streptococcus mitis. Blood culture showed no growth in 48 hours. Postoperatively, patient did very well and she remained afebrile throughout admission. Patient discharged home with home health in a stable medical condition, discharged on clindamycin for 7 days of treatment, plan to follow-up with the wound care center in 3 to 5 days. (2) Hypertension: Upon discharge, blood pressure was stable and she was continued on Norvasc, Lasix, isosorbide, spironolactone. (3) PAF: Remained in sinus rhythm, rate was controlled. Continued on sotalol and Eliquis regimen upon discharge. (4) Chronic normocytic anemia: Admission hemoglobin 11.8, baseline 11, remained stable during this hospital stay. (5) Chronic Kidney Disease Stage III: Admission BUN/Cr 47/1.39, baseline renal function 1.1-1.2, most recent creatinine is 1.21, stable at baseline. (6) Anxiety and depression: continued on Xanax and sertraline regimen. Patient discharged home with home health in a stable medical condition, discharged on clindamycin 450 mg p.o. 3 times daily for 7 days, plan to follow-up with the wound care center in 3 to 5 days, follow-up with PCP in 1 week. This note was generated with [employer] dictation software. It may contain incorrect words, spelling, and punctuation that were not noted in checking the note before signing. - Physical Exam General: Alert, Oriented x3, Cooperative, No apparent distress HEENT: PERRLA, EOMI, Normocephalic Oral: Moist Mucosa, No Gingival or Mucosal Lesions/ Ulcerations Neck: Supple, No JVD, Negative Carotid Bruits, Trachea Midline, Thyroid Normal Size and Texture Lungs: Clear to auscultation, Normal air movement, No rhonchi, No wheeze, No rales, Diminished Cardiovascular: Regular rate, Regular Rhythm, Normal S1, Normal S2, PMI Normal Abdomen: Bowel Sounds Present, Soft, Non Tender, Non-Distended, No Hepato-splenomegaly, Obese Extremities: No clubbing, No cyanosis, Edema Skin: No rashes, Ulcer/ Wound Lymphatic: No Cervical, Supraclavicular, or Inguinal Adenopathy Neurological: Cranial nerves II-XII grossly intact, Neuro grossly intact Psych/Mental Status: Normal Affect, Appropriate Vital Signs Temp Pulse Resp BP Pulse Ox 97.7 F L 60 18 133/64 H 92 03/23/19 08:03 03/23/19 08:03 03/23/19 08:03 03/23/19 08:03 03/23/19 08:03 Oxygen Delivery Method Room Air Weight: 455 lb 4.073 oz Body Mass Index (BMI) 75.7 Intake and Output for Last 24 Hours 03/21/19 03/22/19 03/23/19 23:59 23:59 23:59 Intake Total 4617 / 5746 3202 / 4838 3125 / 3125 Output Total 1850 / 2850 2000 / 4100 3200 / 3200 Balance 2767 / 2896 1202 / 738 -75 / -75 Microbiology Past 72 Hours 03/20/19 18:40 Gram Stain - Final Wound Abcess - Aerobic & Anaerobic Swabs Wound Culture - Preliminary Meth. resistant Staph. aureus Corynebacterium striatum Streptococcus mitis/ oralis Anaerobic Culture - Preliminary Checking for anaerobes, further studies to follow. 03/20/19 13:23 Blood Culture - Preliminary Blood Culture (Wb) - Right Hand No growth in 48 hours. 03/20/19 13:16 Blood Culture - Preliminary Blood Culture (Wb) - Anticubital Left No growth in 48 hours. Laboratory Tests Past 24 Hrs 03/22/19 13:05 Random Vancomycin 18.4 H Discharge Activity: Return to Normal Activity Weight Bearing Status: Weight bearing as tolerated Call your doctor if your incision/area has: Continuous Slow Oozing, Increased Pain/ Swelling, Increased Redness, Foul Smelling Discharge, Swelling at the incision site Call your doctor if you observe: Fever of 101 or Higher, Shortness of breath, Dizziness, Fainting spells, Chest pain, Increased palpitations (irregular heartbeat), Uncontrolled pain Home Medications: Medications to take at Discharge Furosemide [Lasix] 80 mg PO BID 08/01/14 Isosorbide Mononitrate [Imdur] 120 mg PO BID 08/01/14 Apixaban [Eliquis] 5 mg PO BID 05/07/17 Omeprazole [Prilosec] 20 mg PO DAILY 05/07/17 Sotalol HCl [Betapace AF (Beta Bijan)] 80 mg PO BID 05/07/17 cycloBENZAPRine HCl [Flexeril] 10 mg PO TID PRN 07/13/17 Ondansetron [Zofran Odt] 4 mg PO Q8H PRN PRN #10 tablet 10/07/17 Amitriptyline HCl 25 mg PO QHS 06/08/18 Dicyclomine HCl [Bentyl] 10 mg PO 4X/DAY 06/08/18 ALPRAZolam [Xanax] 0.5 mg PO QHS PRN 07/01/18 Albuterol Inhaler [Ventolin Hfa] 2 puff INHALATION Q6H PRN PRN 11/10/18 Amlodipine [Norvasc] 10 mg PO DAILY 11/10/18 Colestipol Tablet [Colestid Tablet] 3 gm PO BID 11/10/18 Meclizine HCl [Antivert] 25 mg PO TID PRN 11/10/18 Nystatin Powder [Mycostatin Powder] 1 applic TOPICAL 4X/DAY PRN PRN 11/10/18 Sertraline HCl [Zoloft] 50 mg PO QHS 11/10/18 Sumatriptan Succinate [Imitrex] 100 mg PO .X1 PRN 11/10/18 Ergocalciferol (Vitamin D2) [Vitamin D2] 50,000 unit PO MOFR 03/20/19 Spironolactone [Aldactone] 25 mg PO DAILY 03/20/19 Topiramate 100 mg PO TID 03/20/19 Clindamycin [Cleocin] 450 mg PO TID #63 cap 03/23/19 Lactobacillus Acidophilus [Acidophilus] 1 tab PO BID #14 tab 03/23/19 Following Prescrptions Were Given to Patient: Lactobacillus Acidophilus [Acidophilus] 1 tab PO BID #14 tab Transmission Status: Received by [facility] [address] Clindamycin [Cleocin] 450 mg PO TID #63 cap Transmission Status: Received by [facility] [address] Primary Care Physician: Andres Wade MD [Primary Care Provider] - Please follow up with your Primary Care Physician in: 1 WEEK. Please Follow Up With: Andres Wade MD When: 1 week Disposition: Home with Home Health Minutes spent on discharge:: 32 Patient Condition:: Stable Medical Necessity - Tobacco Use Smoking Status: Never smoker Tobacco Use: Secondhand Meaningful Use Info Meaningful Use Diagnoses (Choose all that apply): None applicable Code Visit Inpatient E&M: 71593 Disch Hosp
--- NOTE | 2019-03-24 15:59 | CASEMGMT ---
CHAD GAN Discharge Follow-up Phone Call: ERIC: Sagrario Strata: 3 Call Date: 03/24/19 Discharge Date: 03/23/19 Time of Call: 1600 Duration: 5 min Admitting Diagnosis: Cellulitis CHAD GAN completed follow-up phone call after recent hospitalization. Patient states she is doing well and had no questions or concerns regarding discharge instructions. Patient inquired what else she could take for pain besides tylenol. CHAD GAN instructed patient to follow-up with PCP. Patient states that home health care has been to her house. Patient is aware of PCP appt on 03/28/19.
== END 2019-03-23 11:55 | disposition home health service (06) | DRG 571 ==
LOC: ED 13:24 → MS3 15:55
PROVIDERS: Surgery; Admitting Provider Family Medicine; Emergency Provider Emergency Medicine; Family Provider Family Medicine; PCP Family Medicine; Visit Provider Hospitalist
PROC: 0JBM0ZZ Excision of Left Upper Leg Subcutaneous Tissue and Fascia, Open Approach (ICD-10-PCS; principal; 2019-03-20 15:10)
DX: L02.416 Cutaneous abscess of left lower limb (principal); Z68.45 Body mass index [BMI] 70 or greater, adult; L03.116 Cellulitis of left lower limb; I48.0 Paroxysmal atrial fibrillation; D64.9 Anemia, unspecified; E66.01 Morbid (severe) obesity due to excess calories; K21.9 Gastro-esophageal reflux disease without esophagitis; G43.909 Migraine, unspecified, not intractable, without status migrainosus; B95.62 Methicillin resistant Staphylococcus aureus infection as the cause of diseases classified elsewhere; B95.4 Other streptococcus as the cause of diseases classified elsewhere; B96.89 Other specified bacterial agents as the cause of diseases classified elsewhere; N18.3 Chronic kidney disease, stage 3 (moderate); F32.9 Major depressive disorder, single episode, unspecified; F41.9 Anxiety disorder, unspecified; I12.9 Hypertensive chronic kidney disease with stage 1 through stage 4 chronic kidney disease, or unspecified chronic kidney disease; Z79.01 Long term (current) use of anticoagulants
CPT/HCPCS: 36415; 73701; 80048; 80202; 83036; 83735; 85025; 87040; 87070; 87075; 87077; 87186; 87205; 87640; 88304; 97802; 99282; J7030; J7040; Q9967; A4216; J2405

== ENCOUNTER 2019-03-30 11:45 | Outpatient (RCR) | payer MEDICARE, MEDICAID, SELFPAY ==
[2019-03-04 00:52] VITALS: BP 136/78; PULSE 75; RESP 22; TEMP 36.9
[2019-03-09 11:45] VITALS: BP 119/57; PULSE 67; RESP 20; TEMP 36.1; BMI 73.8
--- NOTE | 2019-03-09 12:33 | PN.PCM_ITS ---
(1) Ulcer of right heel Status: Chronic Current Visit: Yes Qualifiers: Code(s): L97.419 - Non-pressure chronic ulcer of right heel and midfoot with unspecified severity (2) Bilateral lower extremity edema Status: Chronic Current Visit: Yes Code(s): R60.0 - Localized edema (3) Morbid obesity Status: Chronic Current Visit: Yes Code(s): E66.01 - Morbid (severe) obesity due to excess calories (4) Ulcer of left lower extremity with fat layer exposed Status: Chronic Current Visit: Yes Code(s): L97.922 - Non-pressure chronic ulcer of unspecified part of left lower leg with fat layer exposed (5) Ulcer of right lower extremity with fat layer exposed Status: Chronic Current Visit: Yes Code(s): L97.912 - Non-pressure chronic ulcer of unspecified part of right lower leg with fat layer exposed Type of Wound Chief Complaint: Right lower extremity ulcers. History of Wound: Ms. Molina is a 48-year-old who was referred to the wound center by her primary care physician due to right lower extremity ulcers. Per patient, started out with redness pain and swelling for which she was managed for cellulitis. Subsequently developed ulcerations in her calf and enciso. She feels well other at this time and denies chills, fever, nausea, vomitting or change in her bowel habit. Progress of Wound: Again significant drainage from bilateral lower extremity ulcers. Worsening of right lower extremity ulcer noted. - Physical Exam Vital Signs Temp Pulse Resp BP 97 F L 67 20 H 119/57 L 03/09/19 11:45 03/09/19 11:45 03/09/19 11:45 03/09/19 11:45 General: Alert, Oriented x3, Cooperative, No apparent distress HEENT: Atraumatic, Normocephalic Oral: Moist Mucosa Neck: Supple Lungs: Normal air movement Abdomen: Non Tender, Obese Extremities: No cyanosis, Edema Skin: Ulcer/ Wound Wound Measurements and Assessment WC - Nurse 1 - General Ulcer Measurement Start: 03/09/19 11:45 Freq: Status: Active Protocol: Activity Type Activity Date Activity User E-Sign Co-Sign Detail Recorded Client Recorded Date Recorded By Document 03/09/19 11:45 DL [id number] 03/09/19 12:03 DL 03/09/19 11:45 Wound Center Nurse 1 [Ulcer Assessment] # 9 right heel -Combined with other wound No -Current Size (cm) - Length 0.3 -Current Size (cm) - Width 0.2 -Current Size (cm) - Depth 0.1 -Total Square Cm 0.06 -Tunneling No -Undermining/Tunneling No -Circular Undermining No -Exudate Amt Small -Exudate Type Serosanguineous -Wound Margin Distinct, Outline Attached -Granulation Amt Medium (34-66%) -Granulation Quality [place] -Slough/Fibrin Yes -Necrosis Amt Small (1-33%) -Necrotic Tissue Type Adherent Slough -Structure Exposed N/A -Texture (Martha-wound Skin Appearance) Assessed -Moisture (Martha-wound Skin Appearance Assessed ) -Color (Martha-wound Skin Appearance) Assessed -Temperature (Martha-wound Skin No Abnormality Appearance) (Pt Warm) -Tenderness on Palpation (Martha-wound No Skin Appearance) -Ulcer Cleansing Wound Cleanser -Foul Odor after Cleansing No -Anesthetic Used 4% Lidocaine Solution #8- LT POST CALF CLUSTER -Combined with other wound No -Current Size (cm) - Length 8 -Current Size (cm) - Width 6 -Current Size (cm) - Depth 0.1 -Total Square Cm 48 -Tunneling No -Undermining/Tunneling No -Circular Undermining No -Exudate Amt Large -Exudate Type Serosanguineous -Wound Margin Distinct, Outline Attached -Granulation Amt Large (67-100%) -Granulation Quality [place] -Slough/Fibrin Yes -Necrosis Amt Medium (34-66%) -Necrotic Tissue Type Adherent Slough -Structure Exposed N/A -Texture (Martha-wound Skin Appearance) Assessed -Moisture (Martha-wound Skin Appearance Assessed ) Maceration -Color (Martha-wound Skin Appearance) Assessed -Temperature (Martha-wound Skin No Abnormality Appearance) (Pt Warm) -Tenderness on Palpation (Martha-wound No Skin Appearance) -Ulcer Cleansing Wound Cleanser -Foul Odor after Cleansing No -Anesthetic Used 4% Lidocaine Solution #7- LT [place] -Combined with other wound No -Current Size (cm) - Length 0.1 -Current Size (cm) - Width 0.1 -Current Size (cm) - Depth 0.1 -Total Square Cm 0.01 -Tunneling No -Undermining/Tunneling No -Circular Undermining No -Exudate Amt Small -Exudate Type Serosanguineous -Wound Margin Distinct, Outline Attached -Granulation Amt Medium (34-66%) -Granulation Quality [place] -Slough/Fibrin Yes -Necrosis Amt Small (1-33%) -Necrotic Tissue Type Adherent Slough -Structure Exposed N/A -Texture (Martha-wound Skin Appearance) Assessed -Moisture (Martha-wound Skin Appearance Assessed ) -Color (Martha-wound Skin Appearance) Assessed -Temperature (Martha-wound Skin No Abnormality Appearance) (Pt Warm) -Tenderness on Palpation (Martha-wound No Skin Appearance) -Ulcer Cleansing Wound Cleanser -Foul Odor after Cleansing No -Anesthetic Used 4% Lidocaine Solution #1 RIGHT POSTERIOR CALF CLUSTER -Combined with other wound No -Current Size (cm) - Length 14.5 -Current Size (cm) - Width 18 -Current Size (cm) - Depth 0.1 -Total Square Cm 261.0 -Tunneling No -Undermining/Tunneling No -Circular Undermining No -Exudate Amt Large -Exudate Type Serosanguineous -Wound Margin Distinct, Outline Attached -Granulation Amt Medium (34-66%) -Granulation Quality [place] -Necrosis Amt Medium (34-66%) -Necrotic Tissue Type Adherent Slough -Structure Exposed N/A -Texture (Martha-wound Skin Appearance) Assessed -Moisture (Martha-wound Skin Appearance Assessed ) Maceration -Color (Martha-wound Skin Appearance) Assessed -Temperature (Martha-wound Skin No Abnormality Appearance) (Pt Warm) -Tenderness on Palpation (Martha-wound No Skin Appearance) -Ulcer Cleansing Wound Cleanser -Foul Odor after Cleansing No -Anesthetic Used 4% Lidocaine Solution [Edema Assessment] -Lower Limb Edema Present Yes -Right Calf (cm) 72 -Right Ankle (cm) 36 -Left Calf (cm) 66 -Left Ankle (cm) 30.5 Musculoskeletal: No Muscle Wasting Neurological: Cranial nerves II-XII grossly intact Psych/Mental Status: Normal Affect Debridement Note Wound debrided: Right lower extremity (posterior) Wound Grade/Stage: Stage II Type of Debridement: Excisional debridement Anesthesia Used: 4% Lidocaine Solution Depth: Down to and including healthy tissue, in the subcutaneous layer Percentage of wound debrided: 100 Instrument Used: 5mm curette Tissue Removed: Slough and devitalized tissue Severity: Fat Layer Exposed Amount of bleeding with debridement: Mild Bleeding Controlled with: Pressure Patient tolerated procedure well - Additional Wound Wound debrided: Left lower extremity (posterior) Wound Grade/Stage: Stage II Type of Debridement: Excisional debridement Anesthesia Used: 4% Lidocaine Solution Depth: Down to and including healthy tissue, in the subcutaneous layer Percentage of wound debrided: 100 Instrument Used: 5mm curette Tissue Removed: Slough and devitalized tissue Severity: Fat Layer Exposed Amount of bleeding with debridement: Mild Bleeding Controlled with: Pressure Patient tolerated procedure: Patient tolerated procedure well Assessment/Plan Active Problems Ulcer of right lower extremity with fat layer exposed (Chronic) Morbid obesity (Chronic) Bilateral lower extremity edema (Chronic) Ulcer of left lower extremity with fat layer exposed (Chronic) Toe ulcer, right (Acute) Third and fourth. Open wound of second toe of left foot (Chronic) Traumatic, Penetrating. Ulcer of right heel (Chronic) Assessment: Same as above. Plan: Ms. Molina has clusters of bilateral lower extremity ulcers. Likely secondary to venous insufficiency/poorly controlled lower extremity edema. Right heel ulcer is healed. Right Calf/posterior lower extremity ulcers with worsening drainage and maceration. Patient with significant clear drainage from both lower extremities. Debridement done as documented above. Procedure was well-tolerated. Continue Aquacel with ABD over top. Change 4-5 times daily depending on drainage. Patient continues to require large amounts of wound care supply due to size as documented above of ulcer and significant drainage. Also advised that she elevate her lower extremity when seated and in bed. Increased protein intake recommended. She expressed understanding. Daily ric wraps for edema management. Due to poor compliance and inability to adequately care for herself prognosis for wound healing is not very encouraging. She remains complex care pending further resolution/consistency of home care situation. Plan is to go to an assisted living facility. Her questions were answered and she was advised to call with any further questions or concerns. Follow-up in 1 week for courtesy visit. This note was generated with [employer] dictation software. It may contain incorrect words, spelling, and punctuation that were not noted in checking the note before signing.
[2019-03-30 12:21] VITALS: BP 113/51; PULSE 63; RESP 18; TEMP 35.7; BMI 73.8
--- NOTE | 2019-03-30 19:41 | PN.PCM_ITS ---
(1) Ulcer of right heel Status: Chronic Current Visit: No Qualifiers: Code(s): L97.419 - Non-pressure chronic ulcer of right heel and midfoot with unspecified severity (2) Bilateral lower extremity edema Status: Chronic Current Visit: Yes Code(s): R60.0 - Localized edema (3) Morbid obesity Status: Chronic Current Visit: Yes Code(s): E66.01 - Morbid (severe) obesity due to excess calories (4) Ulcer of left lower extremity with fat layer exposed Status: Chronic Current Visit: Yes Code(s): L97.922 - Non-pressure chronic ulcer of unspecified part of left lower leg with fat layer exposed (5) Ulcer of right lower extremity with fat layer exposed Status: Chronic Current Visit: No Code(s): L97.912 - Non-pressure chronic ulcer of unspecified part of right lower leg with fat layer exposed (6) Abscess of left lower extremity Status: Acute Current Visit: Yes Code(s): L02.416 - Cutaneous abscess of left lower limb Type of Wound Date of Service: 03/30/19 Chief Complaint: Right lower extremity ulcers. History of Wound: Ms. Molina is a 48-year-old who was referred to the wound center by her primary care physician due to right lower extremity ulcers. Per patient, started out with redness pain and swelling for which she was managed for cellulitis. Subsequently developed ulcerations in her calf and enciso. She feels well other at this time and denies chills, fever, nausea, vomitting or change in her bowel habit. Progress of Wound: Sienna is status post recent hospital admission for i ncision and drainage of the left thigh abscess. She has done well since hospital discharge. Was on vancomycin during the hospital stay and discharged on clindamycin. No significant concerns at this time. Prior ulcers are improving. - Physical Exam Vital Signs Temp Pulse Resp BP 96.2 F L 63 18 113/51 L 03/30/19 12:21 03/30/19 12:21 03/30/19 12:21 03/30/19 12:21 General: Alert, Oriented x3, Cooperative, No apparent distress HEENT: Atraumatic, Normocephalic Oral: Moist Mucosa Neck: Supple Lungs: Normal air movement Abdomen: Non Tender, Obese Extremities: No edema, Edema Skin: Ulcer/ Wound Wound Measurements and Assessment WC - Nurse 1 - General Ulcer Measurement Start: 03/09/19 11:45 Freq: Status: Active Protocol: Activity Type Activity Date Activity User E-Sign Co-Sign Detail Recorded Client Recorded Date Recorded By Document 03/30/19 12:21 [facility] [id number] 03/30/19 12:33 [facility] 03/30/19 12:21 Wound Center Nurse 1 [Ulcer Assessment] #10- LT ANTERIOR THIGH -Combined with other wound No -Current Size (cm) - Length 1.2 -Current Size (cm) - Width 4.7 -Current Size (cm) - Depth 4 -Total Square Cm 5.64 -Date of Last Picture (Recall this 03/30/19 field) -Photo Taken Yes -Epithelialization None Present -Tunneling No -Undermining/Tunneling No -Circular Undermining No -Exudate Amt Medium -Exudate Type Serosanguineous -Wound Margin Distinct, Outline Attached -Granulation Amt Small (1-33%) -Granulation Quality Red -Slough/Fibrin Yes -Necrosis Amt Large (67-100%) -Necrotic Tissue Type Adherent Slough -Texture (Martha-wound Skin Appearance) Assessed, Scarring -Moisture (Martha-wound Skin Appearance Assessed ) -Color (Martha-wound Skin Appearance) Assessed, Erythema -Temperature (Martha-wound Skin No Abnormality Appearance) (Pt Warm) -Tenderness on Palpation (Martha-wound No Skin Appearance) -Ulcer Cleansing Wound Cleanser -Foul Odor after Cleansing No -Anesthetic Used 4% Lidocaine Solution #8- LT POST CALF CLUSTER -Combined with other wound No -Current Size (cm) - Length 2.3 -Current Size (cm) - Width 3 -Current Size (cm) - Depth 0.1 -Total Square Cm 6.9 -Photo Taken No -Epithelialization None Present -Tunneling No -Undermining/Tunneling No -Circular Undermining No -Exudate Amt Large -Exudate Type Serous -Wound Margin Distinct, Outline Attached -Granulation Amt None Present (0 %) -Slough/Fibrin Yes -Necrosis Amt Large (67-100%) -Necrotic Tissue Type Adherent Slough -Texture (Martha-wound Skin Appearance) Assessed, Excoriation, Scarring -Moisture (Martha-wound Skin Appearance Assessed, ) Maceration, Weeping,Dry/ Scaly -Color (Martha-wound Skin Appearance) Assessed, Erythema,Palor -Temperature (Martha-wound Skin No Abnormality Appearance) (Pt Warm) -Tenderness on Palpation (Martha-wound No Skin Appearance) -Ulcer Cleansing Wound Cleanser -Foul Odor after Cleansing No -Anesthetic Used 4% Lidocaine Solution #1 RIGHT POSTERIOR CALF CLUSTER -Combined with other wound No -Current Size (cm) - Length 0.1 -Current Size (cm) - Width 0.1 -Current Size (cm) - Depth 0.1 -Total Square Cm 0.01 -Photo Taken No -Epithelialization Large 67-100% -Tunneling No -Undermining/Tunneling No -Circular Undermining No -Exudate Amt Small -Exudate Type Serous -Texture (Martha-wound Skin Appearance) Assessed, Scarring -Moisture (Martha-wound Skin Appearance Assessed, ) Maceration,Dry/ Scaly -Color (Martha-wound Skin Appearance) Assessed, Erythema,Palor -Temperature (Martha-wound Skin No Abnormality Appearance) (Pt Warm) -Tenderness on Palpation (Martha-wound No Skin Appearance) -Foul Odor after Cleansing No -Anesthetic Used 4% Lidocaine Solution WC - Nurse 2 - General Ulcer CM Notes Start: 03/09/19 11:45 Freq: Status: Active Protocol: Activity Type Activity Date Activity User E-Sign Co-Sign Detail Recorded Client Recorded Date Recorded By Document 03/30/19 13:06 MW [id number] 03/30/19 13:22 MW 03/30/19 13:06 Wound Center Nurse 2 [Procedure/Treatment] #10- LT ANTERIOR THIGH -Time 13:07 -Correct Patient Yes -Correct Side, Site, Position Yes -Correct Procedure Yes -Procedure Performed Yes -Type of Procedure Debridement -Clinical Debridement Subcutaneous -Post Debridement Size (cm) - Length 1.2 -Post Debridement Size (cm) - Width 5.0 -Post Debridement Size (cm) - Depth 4.5 -Total Square Cm 6.00 -Wound/Ulcer Outcome Not Healed -Ulcer Cleansing Rinsed/ Irrigated with Saline -Foul Odor after Cleansing No -Bioengineered Tissue No -Bleeding Controlled with Pressure -Offloading No -Treatment Response Procedure Tolerated Well #8- LT POST CALF CLUSTER -Time 13:12 -Correct Patient Yes -Correct Side, Site, Position Yes -Correct Procedure Yes -Procedure Performed Yes -Type of Procedure Debridement -Clinical Debridement Subcutaneous -Post Debridement Size (cm) - Length 3.5 -Post Debridement Size (cm) - Width 4.5 -Post Debridement Size (cm) - Depth 0.4 -Total Square Cm 15.75 -Wound/Ulcer Outcome Not Healed -Ulcer Cleansing Rinsed/ Irrigated with Saline -Foul Odor after Cleansing No -Bioengineered Tissue No -Bleeding Controlled with Pressure -Offloading No -Treatment Response Procedure Tolerated Well #1 RIGHT POSTERIOR CALF CLUSTER -Time 13:13 -Correct Patient Yes -Correct Side, Site, Position Yes -Correct Procedure Yes -Procedure Performed Yes -Type of Procedure Debridement -Clinical Debridement Subcutaneous -Post Debridement Size (cm) - Length 13.0 -Post Debridement Size (cm) - Width 16.0 -Post Debridement Size (cm) - Depth 0.1 -Total Square Cm 208.00 -Wound/Ulcer Outcome Not Healed -Ulcer Cleansing Rinsed/ Irrigated with Saline -Foul Odor after Cleansing No -Bioengineered Tissue No -Bleeding Controlled with Pressure -Offloading No -Treatment Response Procedure Tolerated Well [See Physician Procedure note for Specifics] Pain Scale: 0-10 Numeric [Pain] -Is Patient Pain Free? Yes Musculoskeletal: No Muscle Wasting Neurological: Cranial nerves II-XII grossly intact Psych/Mental Status: Normal Affect Debridement Note Post-Debridement Measurements/Treatment WC - Nurse 2 - General Ulcer CM Notes Start: 03/09/19 11:45 Freq: Status: Active Protocol: Activity Type Activity Date Activity User E-Sign Co-Sign Detail Recorded Client Recorded Date Recorded By Document 03/09/19 12:32 MW [id number] 03/09/19 12:37 MW Document 03/30/19 13:06 MW [id number] 03/30/19 13:22 MW 03/09/19 03/30/19 12:32 13:06 Wound Center Nurse 2 #10- LT ANTERIOR THIGH -Time 13:07 -Correct Patient Yes -Correct Side, Site, Position Yes -Correct Procedure Yes -Procedure Performed Yes -Type of Procedure Debridement -Clinical Debridement Subcutaneous -Post Debridement Size (cm) - Length 1.2 -Post Debridement Size (cm) - Width 5.0 -Post Debridement Size (cm) - Depth 4.5 -Total Square Cm 6.00 -Wound/Ulcer Outcome Not Healed -Ulcer Cleansing Rinsed/ Irrigated with Saline -Foul Odor after Cleansing No -Bioengineered Tissue No -Bleeding Controlled with Pressure -Offloading No -Treatment Response Procedure Tolerated Well # 9 right heel -Time 12:32 -Correct Patient Yes -Correct Side, Site, Position Yes -Correct Procedure Yes -Procedure Performed No -Post Debridement Size (cm) - Length 0 -Post Debridement Size (cm) - Width 0 -Post Debridement Size (cm) - Depth 0 -Total Square Cm 0 -Wound/Ulcer Outcome Healed- Epithelialized #8- LT POST CALF CLUSTER -Time 12:34 13:12 -Correct Patient Yes Yes -Correct Side, Site, Position Yes Yes -Correct Procedure Yes Yes -Procedure Performed Yes Yes -Type of Procedure Debridement Debridement -Clinical Debridement Subcutaneous Subcutaneous -Post Debridement Size (cm) - Length 11.0 3.5 -Post Debridement Size (cm) - Width 11.0 4.5 -Post Debridement Size (cm) - Depth 0.1 0.4 -Total Square Cm 121.00 15.75 -Wound/Ulcer Outcome Not Healed Not Healed -Ulcer Cleansing Rinsed/ Rinsed/ Irrigated with Irrigated with Saline Saline -Foul Odor after Cleansing No No -Bioengineered Tissue No No -Bleeding Controlled with Pressure Pressure -Offloading No No -Treatment Response Procedure Procedure Tolerated Well Tolerated Well #7- LT ENCISO -Time 12:35 -Correct Patient Yes -Correct Side, Site, Position Yes -Correct Procedure Yes -Procedure Performed No -Wound/Ulcer Outcome Healed- Epithelialized #1 RIGHT POSTERIOR CALF CLUSTER -Time 12:35 13:13 -Correct Patient Yes Yes -Correct Side, Site, Position Yes Yes -Correct Procedure Yes Yes -Procedure Performed Yes Yes -Type of Procedure Debridement Debridement -Clinical Debridement Subcutaneous Subcutaneous -Post Debridement Size (cm) - Length 22.0 13.0 -Post Debridement Size (cm) - Width 22.0 16.0 -Post Debridement Size (cm) - Depth 0.1 0.1 -Total Square Cm 484.00 208.00 -Wound/Ulcer Outcome Not Healed Not Healed -Ulcer Cleansing Rinsed/ Rinsed/ Irrigated with Irrigated with Saline Saline -Foul Odor after Cleansing No No -Bioengineered Tissue No No -Bleeding Controlled with Pressure Pressure -Offloading No No -Treatment Response Procedure Procedure Tolerated Well Tolerated Well Pain Scale: 0-10 Numeric Is Patient Pain Free? Yes Yes Wound debrided: Left thigh Wound Grade/Stage: stage III Type of Debridement: Excisional debridement Anesthesia Used: 4% Lidocaine Solution Depth: Down to and including healthy tissue, in the subcutaneous layer Percentage of wound debrided: 100 Instrument Used: 5mm curette Tissue Removed: Slough and devitalized tissue Severity: Fat Layer Exposed Amount of bleeding with debridement: Mild Bleeding Controlled with: Pressure Patient tolerated procedure well - Additional Wound Wound debrided: Right calf (posterior) Wound Grade/Stage: Stage II Type of Debridement: Excisional debridement Anesthesia Used: 4% Lidocaine Solution Depth: Down to and including healthy tissue, in the subcutaneous layer Percentage of wound debrided: 100 Instrument Used: 5mm curette Tissue Removed: slough and devitalized tissue Severity: Fat Layer Exposed Amount of bleeding with debridement: Mild Bleeding Controlled with: Pressure Patient tolerated procedure: Patient tolerated procedure well - Additional Wound Wound debrided: Left lower extremity (posterior) Wound Grade/Stage: Stage II Type of Debridement: Excisional debridement Anesthesia Used: 4% Lidocaine Solution Depth: Down to and including healthy tissue, in the subcutaneous layer Percentage of wound debrided: 100 Instrument Used: 5mm curette Tissue Removed: slough and devitalized tissue Severity: Fat Layer Exposed Amount of bleeding with debridement: Mild Bleeding Controlled with: Pressure Patient tolerated procedure: Patient tolerated procedure well Assessment/Plan Active Problems Morbid obesity (Chronic) Bilateral lower extremity edema (Chronic) Ulcer of left lower extremity with fat layer exposed (Chronic) Abscess of left lower extremity (Acute) Assessment: Same as above. Plan: Ms. Molina has clusters of bilateral lower extremity ulcers. Likely secondary to venous insufficiency/poorly controlled lower extremity edema. Bilateral lower extremity ulcers have however improved since her last visit and I believe this is been due to largely being bedbound during the hospital stay. She also has a new left thigh post surgical wound status post left thigh abscess. Debridement done as documented above. Procedure was well-tolerated. Continue Aquacel with ABD over top to left and right lower leg ulcers. Change 4-5 times daily depending on drainage. Due to significant depth and drainage of her left thigh postsurgical wound, she will benefit from a wound VAC. Patient continues to require large amounts of wound care supply due to size as documented above of ulcer and significant drainage. Also advised that she elevate her lower extremity when seated and in bed. Increased protein intake recommended. She expressed understanding. Daily ric wraps for edema management. Due to poor compliance and inability to adequately care for herself prognosis for wound healing is not very encouraging. She remains complex care pending further resolution/consistency of home care situation. Plan is to go to an assisted living facility. Her questions were answered and she was advised to call with any further questions or concerns. Follow-up in 1 week. This note was generated with [employer] dictation software. It may contain incorrect words, spelling, and punctuation that were not noted in checking the note before signing.
== END 2019-04-02 23:59 ==
LOC: WC 11:45
PROVIDERS: Family Provider Family Medicine; PCP Family Medicine; Visit Provider Internal Medicine
DX: L97.212 Non-pressure chronic ulcer of right calf with fat layer exposed (principal); E66.01 Morbid (severe) obesity due to excess calories; Z68.45 Body mass index [BMI] 70 or greater, adult; Z71.3 Dietary counseling and surveillance; L97.222 Non-pressure chronic ulcer of left calf with fat layer exposed; R60.0 Localized edema; L97.122 Non-pressure chronic ulcer of left thigh with fat layer exposed
CPT/HCPCS: 11042; 11045

== ENCOUNTER 2019-04-12 10:40 | Emergency (ER) | payer MEDICARE, MEDICAID, SELFPAY ==
[2019-04-03 00:36] VITALS: BMI 75.7
[2019-04-12 10:40] VITALS: BP 114/59; PULSE 67; RESP 24; TEMP 36.6; O2SAT 100; BMI 74.0
--- NOTE | 2019-04-12 10:51 | RAD_ITS ---
STUDY: X-RAY - RIGHT KNEE REASON FOR EXAM: Female, 49 years old. Knee pain TECHNIQUE: 3 view(s) of the knee. COMPARISON: None. FINDINGS: Normal visualized distal femur. Normal visualized proximal tibia and fibula. Normal proximal tibiofibular articulation. There is mild degenerative arthrosis of the medial femorotibial compartment. There is mild degenerative arthrosis of the lateral femorotibial compartment. There is mild degenerative arthrosis of the patellofemoral articulation. The soft tissue structures are unremarkable. RAD/Knee 4 or More Views IMPRESSION: Degenerative arthrosis. Electronically Signed: Rodney Simms MD at 11:28 EDT Tel , Service support ,
--- NOTE | 2019-04-12 10:52 | ED.DCSUM_ITS ---
- ER Visit Summary Date of Service: 04/12/19 Chief Complaint: Right knee injury History of Present Illness: The patient is a 49 F states that last night around 220 0 hours she was laying in bed. She rolled over at the anterior aspect of the right knee on the wall. She states she has painful range of motion and is also painful with weightbearing. She denies any prior surgeries on the knee. She has been using a walker which is not abnormal for her. Physical Examination: Afebrile vital signs are stable Gen: Well-nourished well-developed morbid obesity Head: Normocephalic atraumatic Eyes: Perrl EOMI ENT: TMs clear no rhinorrhea moist mucous membranes Neck: Supple no lymphadenopathy no JVD nontender CVS: Regular rate rhythm no murmurs normal S1-S2 Respiratory: No distress clear to auscultation bilaterally chest nontender Abdomen: Soft nontender nondistended normal bowel sounds no masses Back: Nontender Extremity: There is some mild erythema over the anterior aspect of the right knee. The skin is tender to palpation. Body habitus precludes palpation of the bony prominences of the knee. Ligamentous testing is also limited. Bilateral lower extremity edema Skin: Normal color no rash Neuro: alert orientated ?3 CN II-XII intact normal strength sensation Psych: Normal affect normal mood Test Results: Knee x-rays were obtained. These were negative for fracture. Noted degenerative arthrosis Emergency Department Course and Treatment: Patient received Tylenol for pain. I believe this to be a contusion. Patient be discharged home with supportive care. Impression: 1. Right knee contusion This note was generated with [employer] dictation software. It may contain incorrect words, spelling, and punctuation that were not noted in review of the chart prior to signing ED Disposition - Plan for ED Patient: Disposition: Home or Assisted Living Instructions: CONTUSION, Lower Extremity Referrals: Devin Rivera MD [NON-STAFF] - 10-14 Days if not better
[2019-04-12 10:58] VITALS: BP 114/59; PULSE 67; RESP 24; TEMP 36.6; O2SAT 100
[2019-04-12] MEDS: Acetaminophen 500 MG Tablet 1000 MG PO (11:35)
[2019-04-12 11:46] VITALS: BP 105/54; PULSE 63; RESP 18
== END 2019-04-12 11:47 | disposition home or self-care (01) ==
PROVIDERS: Emergency Provider Emergency Medicine; Family Provider Family Medicine; PCP Family Medicine
DX: S80.01XA Contusion of right knee, initial encounter (principal); M17.11 Unilateral primary osteoarthritis, right knee; X58.XXXA Exposure to other specified factors, initial encounter; Y93.9 Activity, unspecified; Y92.9 Unspecified place or not applicable; E66.01 Morbid (severe) obesity due to excess calories; I48.91 Unspecified atrial fibrillation; I12.9 Hypertensive chronic kidney disease with stage 1 through stage 4 chronic kidney disease, or unspecified chronic kidney disease; N18.9 Chronic kidney disease, unspecified; F41.9 Anxiety disorder, unspecified; F32.9 Major depressive disorder, single episode, unspecified; M54.9 Dorsalgia, unspecified; G89.29 Other chronic pain; Z98.84 Bariatric surgery status; Z79.01 Long term (current) use of anticoagulants; Z79.899 Other long term (current) drug therapy
CPT/HCPCS: 73564; 99283

== ENCOUNTER 2019-04-27 11:45 | Outpatient (RCR) | payer MEDICARE, MEDICAID, SELFPAY ==
[2019-04-03 00:36] VITALS: BP 113/51; PULSE 63; RESP 18; TEMP 35.7; BMI 75.7
[2019-04-13 10:26] VITALS: BP 128/67; PULSE 63; RESP 18; TEMP 35.8; BMI 74.0
--- NOTE | 2019-04-13 12:21 | PCM.WC.PN ---
(1) Abscess of left lower extremity Status: Acute Current Visit: Yes Code(s): L02.416 - Cutaneous abscess of left lower limb (2) Morbid obesity Status: Chronic Current Visit: Yes Code(s): E66.01 - Morbid (severe) obesity due to excess calories (3) Ulcer of left lower extremity with fat layer exposed Status: Chronic Current Visit: Yes Code(s): L97.922 - Non-pressure chronic ulcer of unspecified part of left lower leg with fat layer exposed (4) Ulcer of right lower extremity with fat layer exposed Status: Chronic Current Visit: Yes Code(s): L97.912 - Non-pressure chronic ulcer of unspecified part of right lower leg with fat layer exposed Type of Wound Date of Service: 04/13/19 Chief Complaint: Right lower extremity ulcers. History of Wound: Ms. Molina is a 48-year-old who was referred to the wound center by her primary care physician due to right lower extremity ulcers. Per patient, started out with redness pain and swelling for which she was managed for cellulitis. Subsequently developed ulcerations in her calf and enciso. She feels well other at this time and denies chills, fever, nausea, vomitting or change in her bowel habit. Progress of Wound: Improving. No new concerns at this time. Recieved her wound Vac yesterday. - Physical Exam Vital Signs Temp Pulse Resp BP 96.4 F L 63 18 128/67 H 04/13/19 10:26 04/13/19 10:26 04/13/19 10:26 04/13/19 10:26 General: Alert, Oriented x3, Cooperative, No apparent distress HEENT: Atraumatic, Normocephalic Neck: Supple Lungs: Normal air movement Abdomen: Non Tender, Obese Extremities: No cyanosis, Edema Skin: Ulcer/ Wound Wound Measurements and Assessment WC - Nurse 1 - General Ulcer Measurement Start: 04/13/19 10:25 Freq: Status: Active Protocol: Activity Type Activity Date Activity User E-Sign Co-Sign Detail Recorded Client Recorded Date Recorded By Document 04/13/19 10:26 [facility] [id number] 04/13/19 10:42 [facility] 04/13/19 10:26 Wound Center Nurse 1 [Ulcer Assessment] #10- LT ANTERIOR THIGH -Combined with other wound No -Current Size (cm) - Length 1.0 -Current Size (cm) - Width 4.3 -Current Size (cm) - Depth 2.6 -Total Square Cm 4.30 -Photo Taken No -Tunneling No -Undermining/Tunneling No -Circular Undermining No -Classification - Thickness Full Thickness without Exposed Support Structure -Exudate Amt Large -Exudate Type Serosanguineous -Wound Margin Epibole -Granulation Amt None Present (0 %) -Granulation Quality N/A -Slough/Fibrin Yes -Necrosis Amt Large (67-100%) -Necrotic Tissue Type Adherent Slough -Structure Exposed None/Limited to Skin Breakdown -Texture (Martha-wound Skin Appearance) Assessed, Localized Edema ,Scarring -Moisture (Martha-wound Skin Appearance Assessed,Dry/ ) Scaly -Color (Martha-wound Skin Appearance) No Abnormality, Assessed -Temperature (Martha-wound Skin No Abnormality Appearance) (Pt Warm) -Tenderness on Palpation (Martha-wound No Skin Appearance) -Foul Odor after Cleansing No -Anesthetic Used 4% Lidocaine Solution #8- LT POST CALF CLUSTER -Combined with other wound No -Photo Taken No -Tunneling No -Undermining/Tunneling No -Circular Undermining No -Classification - Thickness Full Thickness without Exposed Support Structure -Exudate Amt Medium -Exudate Type Serous -Wound Margin Flat & Intact -Granulation Amt None Present (0 %) -Granulation Quality N/A -Slough/Fibrin Yes -Necrosis Amt Large (67-100%) -Necrotic Tissue Type Adherent Slough -Structure Exposed None/Limited to Skin Breakdown -Texture (Martha-wound Skin Appearance) Assessed, Scarring -Moisture (Martha-wound Skin Appearance Assessed,Dry/ ) Scaly -Color (Martha-wound Skin Appearance) No Abnormality, Assessed, Erythema -Temperature (Martha-wound Skin No Abnormality Appearance) (Pt Warm) -Tenderness on Palpation (Martha-wound No Skin Appearance) -Foul Odor after Cleansing No -Anesthetic Used 4% Lidocaine Solution #1 RIGHT POSTERIOR CALF CLUSTER -Combined with other wound No -Current Size (cm) - Length 22.0 -Current Size (cm) - Width 16.5 -Current Size (cm) - Depth 0.1 -Total Square Cm 363.00 -Photo Taken No -Tunneling No -Undermining/Tunneling No -Circular Undermining No -Classification - Thickness Full Thickness without Exposed Support Structure -Exudate Amt Small -Exudate Type Serous -Wound Margin Flat & Intact -Granulation Amt None Present (0 %) -Granulation Quality N/A -Slough/Fibrin Yes -Necrosis Amt Large (67-100%) -Necrotic Tissue Type Adherent Slough -Structure Exposed None/Limited to Skin Breakdown -Texture (Martha-wound Skin Appearance) Assessed, Scarring -Moisture (Martha-wound Skin Appearance Dry/Scaly ) -Color (Martha-wound Skin Appearance) No Abnormality, Assessed -Temperature (Martha-wound Skin No Abnormality Appearance) (Pt Warm) -Tenderness on Palpation (Martha-wound No Skin Appearance) -Foul Odor after Cleansing No -Anesthetic Used 4% Lidocaine Solution WC - Nurse 2 - General Ulcer CM Notes Start: 04/13/19 10:25 Freq: Status: Active Protocol: Activity Type Activity Date Activity User E-Sign Co-Sign Detail Recorded Client Recorded Date Recorded By Document 04/13/19 11:17 MW [id number] 04/13/19 11:31 MW 04/13/19 11:17 Wound Center Nurse 2 [Procedure/Treatment] #10- LT ANTERIOR THIGH -Time 11:19 -Correct Patient Yes -Correct Side, Site, Position Yes -Correct Procedure Yes -Procedure Performed Yes -Type of Procedure Debridement -Clinical Debridement Subcutaneous -Post Debridement Size (cm) - Length 1.0 -Post Debridement Size (cm) - Width 4.0 -Post Debridement Size (cm) - Depth 2.5 -Total Square Cm 4.00 -Wound/Ulcer Outcome Not Healed -Ulcer Cleansing Rinsed/ Irrigated with Saline -Foul Odor after Cleansing No -Bioengineered Tissue No -Bleeding Controlled with Pressure -Offloading No -Treatment Response Procedure Tolerated Well #8- LT POST CALF CLUSTER -Time 11:20 -Correct Patient Yes -Correct Side, Site, Position Yes -Correct Procedure Yes -Procedure Performed Yes -Type of Procedure Debridement -Clinical Debridement Subcutaneous -Post Debridement Size (cm) - Length 0.6 -Post Debridement Size (cm) - Width 2.0 -Post Debridement Size (cm) - Depth 0.1 -Total Square Cm 1.20 -Wound/Ulcer Outcome Not Healed -Ulcer Cleansing Rinsed/ Irrigated with Saline -Foul Odor after Cleansing No -Bioengineered Tissue No -Bleeding Controlled with Pressure -Offloading No -Treatment Response Procedure Tolerated Well #1 RIGHT POSTERIOR CALF CLUSTER -Time 11:21 -Correct Patient Yes -Correct Side, Site, Position Yes -Correct Procedure Yes -Procedure Performed Yes -Type of Procedure Debridement -Clinical Debridement Subcutaneous -Post Debridement Size (cm) - Length 8.8 -Post Debridement Size (cm) - Width 6.5 -Post Debridement Size (cm) - Depth 0.1 -Total Square Cm 57.20 -Wound/Ulcer Outcome Not Healed -Ulcer Cleansing Rinsed/ Irrigated with Saline -Foul Odor after Cleansing No -Bioengineered Tissue No -Bleeding Controlled with Pressure -Offloading No -Treatment Response Procedure Tolerated Well [See Physician Procedure note for Specifics] Pain Scale: 0-10 Numeric [Pain] -Is Patient Pain Free? Yes Musculoskeletal: No Muscle Wasting Neurological: Cranial nerves II-XII grossly intact Psych/Mental Status: Normal Affect Debridement Note Post-Debridement Measurements/Treatment WC - Nurse 2 - General Ulcer CM Notes Start: 04/13/19 10:25 Freq: Status: Active Protocol: Activity Type Activity Date Activity User E-Sign Co-Sign Detail Recorded Client Recorded Date Recorded By Document 04/13/19 11:17 MW [id number] 04/13/19 11:31 MW 04/13/19 11:17 Wound Center Nurse 2 #10- LT ANTERIOR THIGH -Time 11:19 -Correct Patient Yes -Correct Side, Site, Position Yes -Correct Procedure Yes -Procedure Performed Yes -Type of Procedure Debridement -Clinical Debridement Subcutaneous -Post Debridement Size (cm) - Length 1.0 -Post Debridement Size (cm) - Width 4.0 -Post Debridement Size (cm) - Depth 2.5 -Total Square Cm 4.00 -Wound/Ulcer Outcome Not Healed -Ulcer Cleansing Rinsed/ Irrigated with Saline -Foul Odor after Cleansing No -Bioengineered Tissue No -Bleeding Controlled with Pressure -Offloading No -Treatment Response Procedure Tolerated Well #8- LT POST CALF CLUSTER -Time 11:20 -Correct Patient Yes -Correct Side, Site, Position Yes -Correct Procedure Yes -Procedure Performed Yes -Type of Procedure Debridement -Clinical Debridement Subcutaneous -Post Debridement Size (cm) - Length 0.6 -Post Debridement Size (cm) - Width 2.0 -Post Debridement Size (cm) - Depth 0.1 -Total Square Cm 1.20 -Wound/Ulcer Outcome Not Healed -Ulcer Cleansing Rinsed/ Irrigated with Saline -Foul Odor after Cleansing No -Bioengineered Tissue No -Bleeding Controlled with Pressure -Offloading No -Treatment Response Procedure Tolerated Well #1 RIGHT POSTERIOR CALF CLUSTER -Time 11:21 -Correct Patient Yes -Correct Side, Site, Position Yes -Correct Procedure Yes -Procedure Performed Yes -Type of Procedure Debridement -Clinical Debridement Subcutaneous -Post Debridement Size (cm) - Length 8.8 -Post Debridement Size (cm) - Width 6.5 -Post Debridement Size (cm) - Depth 0.1 -Total Square Cm 57.20 -Wound/Ulcer Outcome Not Healed -Ulcer Cleansing Rinsed/ Irrigated with Saline -Foul Odor after Cleansing No -Bioengineered Tissue No -Bleeding Controlled with Pressure -Offloading No -Treatment Response Procedure Tolerated Well Pain Scale: 0-10 Numeric Is Patient Pain Free? Yes Wound debrided: Left Thigh ( Abscess ) Post surgical Wound Grade/Stage: Stage III Type of Debridement: Excisional debridement Anesthesia Used: 4% Lidocaine Solution Depth: Down to and including healthy tissue, in the subcutaneous layer Percentage of wound debrided: 100 Instrument Used: 5mm curette Tissue Removed: Slough and devitalized tissue Severity: Fat Layer Exposed Amount of bleeding with debridement: Mild Bleeding Controlled with: Pressure Patient tolerated procedure well - Additional Wound Wound debrided: Right lower extremity ( Posterior ) Wound Grade/Stage: Stage III Type of Debridement: Excisional debridement Anesthesia Used: 4% Lidocaine Solution Depth: Down to and including healthy tissue, in the subcutaneous layer Percentage of wound debrided: 100 Instrument Used: 5mm curette Tissue Removed: Slough and devitalized tissue Severity: Fat Layer Exposed Amount of bleeding with debridement: Mild Bleeding Controlled with: Pressure Patient tolerated procedure: Patient tolerated procedure well - Additional Wound Wound debrided: Left lowere xtremity ( Posterior ) Wound Grade/Stage: Stage II Type of Debridement: Excisional debridement Anesthesia Used: 4% Lidocaine Solution Depth: Down to and including healthy tissue, in the subcutaneous layer Percentage of wound debrided: 100 Instrument Used: 5mm curette Tissue Removed: Slough and devitalized tissye Severity: Fat Layer Exposed Amount of bleeding with debridement: Mild Bleeding Controlled with: Pressure Patient tolerated procedure: Patient tolerated procedure well Assessment/Plan Active Problems Ulcer of right lower extremity with fat layer exposed (Chronic) Morbid obesity (Chronic) Ulcer of left lower extremity with fat layer exposed (Chronic) Abscess of left lower extremity (Acute) Assessment: Same as above. Plan: Post surgical thigh wound and bilateral leg ulcers are improving. Debridement done as documented above. Procedure was well-tolerated. Continue Aquacel with ABD over top to left and right lower leg ulcers. Change 4-5 times daily depending on drainage. Continue wound Vac to left thigh wound at 150 mmHG. Change every 48 hrs.Patient continues to require large amounts of wound care supply due to size as documented above of ulcer and significant drainage. Also advised that she elevate her lower extremity when seated and in bed. Increased protein intake recommended. She expressed understanding. Daily ric wraps for edema management. Due to poor compliance and inability to adequately care for herself prognosis for wound healing is not very encouraging. She remains complex care pending further resolution/consistency of home care situation. Plan is to go to an assisted living facility. Her questions were answered and she was advised to call with any further questions or concerns. Follow-up in 1 week. This note was generated with [employer] dictation software. It may contain incorrect words, spelling, and punctuation that were not noted in checking the note before signing.
[2019-04-20 10:59] VITALS: BP 131/80; PULSE 69; RESP 20; TEMP 35.3; BMI 74.0
--- NOTE | 2019-04-20 11:32 | PN.PCM_ITS ---
(1) Abscess of left lower extremity Status: Acute Code(s): L02.416 - Cutaneous abscess of left lower limb (2) Morbid obesity Status: Chronic Code(s): E66.01 - Morbid (severe) obesity due to excess calories (3) Ulcer of left lower extremity with fat layer exposed Status: Chronic Code(s): L97.922 - Non-pressure chronic ulcer of unspecified part of left lower leg with fat layer exposed (4) Ulcer of right lower extremity with fat layer exposed Status: Chronic Code(s): L97.912 - Non-pressure chronic ulcer of unspecified part of right lower leg with fat layer exposed (5) Lymphedema Status: Chronic Code(s): I89.0 - Lymphedema, not elsewhere classified Comment: Bilateral Lower Extremity. Type of Wound Date of Service: 04/25/19 Chief Complaint: Right lower extremity ulcers. History of Wound: Ms. Molina is a 48-year-old who was referred to the wound center by her primary care physician due to right lower extremity ulcers. Per patient, started out with redness pain and swelling for which she was managed for cellulitis. Subsequently developed ulcerations in her calf and enciso. She feels well other at this time and denies chills, fever, nausea, vomitting or change in her bowel habit. Progress of Wound: Worsening lower extremity swelling and also had concerns with her wound Vac this week. - Physical Exam Vital Signs Temp Pulse Resp BP 95.5 F L 69 20 H 131/80 H 04/20/19 10:59 04/20/19 10:59 04/20/19 10:59 04/20/19 10:59 General: Alert, Oriented x3, Cooperative, No apparent distress HEENT: Atraumatic, Normocephalic Oral: Moist Mucosa Neck: Supple Lungs: Normal air movement Extremities: No cyanosis, Edema Skin: Ulcer/ Wound Wound Measurements and Assessment WC - Nurse 1 - General Ulcer Measurement Start: 04/13/19 10:25 Freq: Status: Active Protocol: Activity Type Activity Date Activity User E-Sign Co-Sign Detail Recorded Client Recorded Date Recorded By Document 04/20/19 10:59 [id number] 04/20/19 11:02 04/20/19 10:59 Wound Center Nurse 1 [Ulcer Assessment] #10- LT ANTERIOR THIGH -Combined with other wound No -Current Size (cm) - Length 4.3 -Current Size (cm) - Width 1.0 -Current Size (cm) - Depth 0.4 -Total Square Cm 4.30 -Photo Taken No -Epithelialization None Present -Tunneling No -Undermining/Tunneling No -Circular Undermining No -Exudate Amt Small -Exudate Type Yellow/Green -Wound Margin Distinct, Outline Attached -Granulation Amt Small (1-33%) -Granulation Quality Pale -Slough/Fibrin Yes -Necrosis Amt None Present (0 %) -Necrotic Tissue Type Adherent Slough -Structure Exposed None/Limited to Skin Breakdown -Texture (Martha-wound Skin Appearance) No Abnormality, Assessed -Moisture (Martha-wound Skin Appearance Maceration ) -Color (Martha-wound Skin Appearance) No Abnormality, Assessed -Temperature (Martha-wound Skin No Abnormality Appearance) (Pt Warm) -Tenderness on Palpation (Martha-wound No Skin Appearance) -Ulcer Cleansing Rinsed/ Irrigated with Saline -Foul Odor after Cleansing No -Anesthetic Used 4% Lidocaine Solution #8- LT POST CALF CLUSTER -Combined with other wound No -Current Size (cm) - Length 1.1 -Current Size (cm) - Width 2.5 -Current Size (cm) - Depth 0.1 -Total Square Cm 2.75 -Photo Taken No -Epithelialization Small 1-33% -Tunneling No -Undermining/Tunneling No -Circular Undermining No -Exudate Amt Small -Exudate Type Serosanguineous -Wound Margin Distinct, Outline Attached -Granulation Amt Large (67-100%) -Granulation Quality Red -Slough/Fibrin Yes -Necrosis Amt None Present (0 %) -Necrotic Tissue Type Adherent Slough -Structure Exposed None/Limited to Skin Breakdown -Texture (Martha-wound Skin Appearance) Friable, Localized Edema -Moisture (Martha-wound Skin Appearance No Abnormality, ) Assessed -Color (Martha-wound Skin Appearance) Erythema -Temperature (Martha-wound Skin No Abnormality Appearance) (Pt Warm) -Tenderness on Palpation (Martha-wound No Skin Appearance) -Ulcer Cleansing Rinsed/ Irrigated with Saline -Foul Odor after Cleansing No -Anesthetic Used 4% Lidocaine Solution #1 RIGHT POSTERIOR CALF CLUSTER -Combined with other wound No -Current Size (cm) - Length 1.1 -Current Size (cm) - Width 0.4 -Current Size (cm) - Depth 0.1 -Total Square Cm 0.44 -Photo Taken No -Epithelialization None Present -Tunneling No -Undermining/Tunneling No -Circular Undermining No -Exudate Amt Small -Exudate Type Serosanguineous -Wound Margin Distinct, Outline Attached -Granulation Amt Medium (34-66%) -Granulation Quality Red -Slough/Fibrin Yes -Necrosis Amt None Present (0 %) -Necrotic Tissue Type Adherent Slough -Texture (Martha-wound Skin Appearance) Assessed, Friable -Moisture (Martha-wound Skin Appearance No Abnormality, ) Assessed -Color (Martha-wound Skin Appearance) Erythema -Temperature (Martha-wound Skin No Abnormality Appearance) (Pt Warm) -Tenderness on Palpation (Martha-wound No Skin Appearance) -Ulcer Cleansing Rinsed/ Irrigated with Saline -Foul Odor after Cleansing No -Anesthetic Used 4% Lidocaine Solution [Edema Assessment] -Lower Limb Edema Present NA Musculoskeletal: No Muscle Wasting Neurological: Cranial nerves II-XII grossly intact Psych/Mental Status: Normal Affect Debridement Note Post-Debridement Measurements/Treatment WC - Nurse 2 - General Ulcer CM Notes Start: 04/13/19 10:25 Freq: Status: Active Protocol: Activity Type Activity Date Activity User E-Sign Co-Sign Detail Recorded Client Recorded Date Recorded By Document 04/13/19 11:17 MW [id number] 04/13/19 11:31 MW 04/13/19 11:17 Wound Center Nurse 2 #10- LT ANTERIOR THIGH -Time 11:19 -Correct Patient Yes -Correct Side, Site, Position Yes -Correct Procedure Yes -Procedure Performed Yes -Type of Procedure Debridement -Clinical Debridement Subcutaneous -Post Debridement Size (cm) - Length 1.0 -Post Debridement Size (cm) - Width 4.0 -Post Debridement Size (cm) - Depth 2.5 -Total Square Cm 4.00 -Wound/Ulcer Outcome Not Healed -Ulcer Cleansing Rinsed/ Irrigated with Saline -Foul Odor after Cleansing No -Bioengineered Tissue No -Bleeding Controlled with Pressure -Offloading No -Treatment Response Procedure Tolerated Well #8- LT POST CALF CLUSTER -Time 11:20 -Correct Patient Yes -Correct Side, Site, Position Yes -Correct Procedure Yes -Procedure Performed Yes -Type of Procedure Debridement -Clinical Debridement Subcutaneous -Post Debridement Size (cm) - Length 0.6 -Post Debridement Size (cm) - Width 2.0 -Post Debridement Size (cm) - Depth 0.1 -Total Square Cm 1.20 -Wound/Ulcer Outcome Not Healed -Ulcer Cleansing Rinsed/ Irrigated with Saline -Foul Odor after Cleansing No -Bioengineered Tissue No -Bleeding Controlled with Pressure -Offloading No -Treatment Response Procedure Tolerated Well #1 RIGHT POSTERIOR CALF CLUSTER -Time 11:21 -Correct Patient Yes -Correct Side, Site, Position Yes -Correct Procedure Yes -Procedure Performed Yes -Type of Procedure Debridement -Clinical Debridement Subcutaneous -Post Debridement Size (cm) - Length 8.8 -Post Debridement Size (cm) - Width 6.5 -Post Debridement Size (cm) - Depth 0.1 -Total Square Cm 57.20 -Wound/Ulcer Outcome Not Healed -Ulcer Cleansing Rinsed/ Irrigated with Saline -Foul Odor after Cleansing No -Bioengineered Tissue No -Bleeding Controlled with Pressure -Offloading No -Treatment Response Procedure Tolerated Well Pain Scale: 0-10 Numeric Is Patient Pain Free? Yes Wound debrided: Right loer extremity Wound Grade/Stage: Stage II Type of Debridement: Excisional debridement Anesthesia Used: 4% Lidocaine Solution Depth: Down to and including healthy tissue, in the subcutaneous layer Percentage of wound debrided: 100 Instrument Used: 5mm curette Tissue Removed: Slough and devitalized tisue Severity: Fat Layer Exposed Amount of bleeding with debridement: Mild Bleeding Controlled with: Pressure Patient tolerated procedure well - Additional Wound Wound debrided: Left lower extremity Wound Grade/Stage: Stage II Type of Debridement: Excisional debridement Anesthesia Used: 4% Lidocaine Solution Depth: Down to and including healthy tissue, in the subcutaneous layer Percentage of wound debrided: 100 Instrument Used: 3mm curette Tissue Removed: Slough and devitalized tissue Severity: Fat Layer Exposed Amount of bleeding with debridement: Mild Bleeding Controlled with: Pressure Patient tolerated procedure: Patient tolerated procedure well - Additional Wound Wound debrided: Left Calf Wound Grade/Stage: Stage III Type of Debridement: Excisional debridement Anesthesia Used: 4% Lidocaine Solution Depth: Down to and including healthy tissue, in the subcutaneous layer Percentage of wound debrided: 100 Instrument Used: 5mm curette Tissue Removed: Slough and devitalized tissue Severity: Fat Layer Exposed Amount of bleeding with debridement: Mild Bleeding Controlled with: Pressure Patient tolerated procedure: Patient tolerated procedure well Assessment/Plan Assessment: Same as above. Plan: Post surgical thigh wound is improving. Right lower extremity with new clusters. Left is improving. Debridement done as documented above. Procedure was well-tolerated. Continue Aquacel with ABD over top to left and right lower leg ulcers. Change 4-5 times daily depending on drainage. Continue wound Vac to left thigh wound at 150 mmHG. Change every 48 hrs.Patient continues to require large amounts of wound care supply due to size as documented above of ulcer and significant drainage. Also advised that she elevate her lower extremity when seated and in bed. Increased protein intake recommended. She expressed understanding. Daily isreal wraps for edema management for now. Did not tolerate 3M wraps and Isreal wrap not sufficiently managing edema. Will require a lymphedema pump due to chronic poorly controlled bilateral lymphedema. Due to poor compliance and inability to adequately care for herself prognosis for wound healing is not very encouraging. She remains complex care pending further resolution/consistency of home care situation. Her questions were answered and she was advised to call with any further questions or concerns. Follow-up in 1 week. This note was generated with [employer] dictation software. It may contain incorrect words, spelling, and punctuation that were not noted in checking the note before signing.
[2019-04-27 12:14] VITALS: BP 123/76; PULSE 60; RESP 18; TEMP 35.2; BMI 74.0
--- NOTE | 2019-04-27 13:11 | PN.PCM_ITS ---
(1) Abscess of left lower extremity Status: Acute Current Visit: Yes Code(s): L02.416 - Cutaneous abscess of left lower limb (2) Morbid obesity Status: Chronic Current Visit: Yes Code(s): E66.01 - Morbid (severe) obesity due to excess calories (3) Ulcer of left lower extremity with fat layer exposed Status: Chronic Current Visit: Yes Code(s): L97.922 - Non-pressure chronic ulcer of unspecified part of left lower leg with fat layer exposed (4) Ulcer of right lower extremity with fat layer exposed Status: Chronic Current Visit: Yes Code(s): L97.912 - Non-pressure chronic ulcer of unspecified part of right lower leg with fat layer exposed (5) Lymphedema Status: Chronic Current Visit: Yes Code(s): I89.0 - Lymphedema, not elsewhere classified Comment: Bilateral Lower Extremity. Type of Wound Date of Service: 04/27/19 Chief Complaint: Right lower extremity ulcers. History of Wound: Ms. Molina is a 48-year-old who was referred to the wound center by her primary care physician due to right lower extremity ulcers. Per patient, started out with redness pain and swelling for which she was managed for cellulitis. Subsequently developed ulcerations in her calf and enciso. She feels well other at this time and denies chills, fever, nausea, vomitting or change in her bowel habit. Progress of Wound: No new concerns at this time. Tolerated wound VAC better t his week. - Physical Exam Vital Signs Temp Pulse Resp BP 95.3 F L 60 18 123/76 H 04/27/19 12:14 04/27/19 12:14 04/27/19 12:14 04/27/19 12:14 General: Alert, Oriented x3, Cooperative, No apparent distress HEENT: Atraumatic, Normocephalic Oral: Moist Mucosa Neck: Supple Lungs: Normal air movement Extremities: No cyanosis, Edema Skin: Ulcer/ Wound Wound Measurements and Assessment WC - Nurse 1 - General Ulcer Measurement Start: 04/13/19 10:25 Freq: Status: Active Protocol: Activity Type Activity Date Activity User E-Sign Co-Sign Detail Recorded Client Recorded Date Recorded By Document 04/27/19 12:14 DV [id number] 04/27/19 12:22 DV 04/27/19 12:14 Wound Center Nurse 1 [Ulcer Assessment] #10- LT ANTERIOR THIGH -Combined with other wound No -Current Size (cm) - Length 0.3 -Current Size (cm) - Width 0.6 -Current Size (cm) - Depth 0.6 -Total Square Cm 0.18 -Photo Taken No -Epithelialization Small 1-33% -Tunneling No -Undermining/Tunneling No -Circular Undermining No -Classification - Thickness Full Thickness without Exposed Support Structure -Exudate Amt Small -Exudate Type Serosanguineous -Wound Margin Thickened -Granulation Amt Small (1-33%) -Granulation Quality Pale,Red -Slough/Fibrin Yes -Necrosis Amt Medium (34-66%) -Necrotic Tissue Type Adherent Slough -Structure Exposed None/Limited to Skin Breakdown -Texture (Martha-wound Skin Appearance) Assessed, Scarring,Rash -Moisture (Martha-wound Skin Appearance Assessed, ) Weeping -Color (Martha-wound Skin Appearance) Assessed, Erythema -Temperature (Martha-wound Skin No Abnormality Appearance) (Pt Warm) -Foul Odor after Cleansing No -Anesthetic Used 4% Lidocaine Solution #8- LT POST CALF CLUSTER -Combined with other wound No -Current Size (cm) - Length 1.8 -Current Size (cm) - Width 2.0 -Current Size (cm) - Depth 0.1 -Total Square Cm 3.60 -Photo Taken No -Epithelialization None Present -Tunneling No -Undermining/Tunneling No -Circular Undermining No -Classification - Thickness Full Thickness without Exposed Support Structure -Exudate Type Serous -Wound Margin Indistinct, Non -Visible -Granulation Amt None Present (0 %) -Granulation Quality N/A -Slough/Fibrin No -Necrosis Amt Large (67-100%) -Necrotic Tissue Type Adherent Slough -Structure Exposed None/Limited to Skin Breakdown -Texture (Martha-wound Skin Appearance) Assessed, Localized Edema ,Scarring -Moisture (Martha-wound Skin Appearance Assessed, ) Maceration, Weeping -Color (Martha-wound Skin Appearance) Assessed, Erythema -Temperature (Martha-wound Skin No Abnormality Appearance) (Pt Warm) -Tenderness on Palpation (Martha-wound No Skin Appearance) -Foul Odor after Cleansing No -Anesthetic Used 4% Lidocaine Solution #1 RIGHT POSTERIOR CALF CLUSTER -Combined with other wound No -Current Size (cm) - Length 11.2 -Current Size (cm) - Width 25.3 -Current Size (cm) - Depth 0.1 -Total Square Cm 283.36 -Photo Taken No -Epithelialization None Present -Tunneling No -Undermining/Tunneling No -Circular Undermining No -Classification - Thickness Full Thickness without Exposed Support Structure -Wound Margin Indistinct, Non -Visible -Granulation Amt None Present (0 %) -Granulation Quality N/A -Slough/Fibrin Yes -Necrosis Amt Large (67-100%) -Necrotic Tissue Type Eschar -Texture (Martha-wound Skin Appearance) Assessed, Scarring,Rash -Moisture (Martha-wound Skin Appearance Assessed, ) Weeping -Color (Martha-wound Skin Appearance) Assessed, Erythema -Temperature (Martha-wound Skin No Abnormality Appearance) (Pt Warm) -Tenderness on Palpation (Martha-wound No Skin Appearance) -Foul Odor after Cleansing No -Anesthetic Used 4% Lidocaine Solution [Edema Assessment] -Lower Limb Edema Present Yes WC - Nurse 2 - General Ulcer CM Notes Start: 04/13/19 10:25 Freq: Status: Active Protocol: Activity Type Activity Date Activity User E-Sign Co-Sign Detail Recorded Client Recorded Date Recorded By Document 04/27/19 12:36 MW [id number] 04/27/19 12:40 MW 04/27/19 12:36 Wound Center Nurse 2 [Procedure/Treatment] #10- LT ANTERIOR THIGH -Time 12:37 -Correct Patient Yes -Correct Side, Site, Position Yes -Correct Procedure Yes -Procedure Performed Yes -Type of Procedure Debridement -Clinical Debridement Subcutaneous -Post Debridement Size (cm) - Length 0.6 -Post Debridement Size (cm) - Width 2.3 -Post Debridement Size (cm) - Depth 0.4 -Total Square Cm 1.38 -Wound/Ulcer Outcome Not Healed -Ulcer Cleansing Rinsed/ Irrigated with Saline -Foul Odor after Cleansing No -Bioengineered Tissue No -Bleeding Controlled with Pressure -Offloading No -Treatment Response Procedure Tolerated Well #8- LT POST CALF CLUSTER -Time 12:37 -Correct Patient Yes -Correct Side, Site, Position Yes -Correct Procedure Yes -Procedure Performed Yes -Type of Procedure Debridement -Clinical Debridement Subcutaneous -Post Debridement Size (cm) - Length 0.4 -Post Debridement Size (cm) - Width 0.6 -Post Debridement Size (cm) - Depth 0.1 -Total Square Cm 0.24 -Wound/Ulcer Outcome Not Healed -Ulcer Cleansing Rinsed/ Irrigated with Saline -Foul Odor after Cleansing No -Bioengineered Tissue No -Bleeding Controlled with Pressure -Offloading No -Treatment Response Procedure Tolerated Well #1 RIGHT POSTERIOR CALF CLUSTER -Time 12:37 -Correct Patient Yes -Correct Side, Site, Position Yes -Correct Procedure Yes -Procedure Performed Yes -Type of Procedure Debridement -Clinical Debridement Subcutaneous -Post Debridement Size (cm) - Length 7.0 -Post Debridement Size (cm) - Width 14.0 -Post Debridement Size (cm) - Depth 0.1 -Total Square Cm 98.00 -Wound/Ulcer Outcome Not Healed -Ulcer Cleansing Rinsed/ Irrigated with Saline -Foul Odor after Cleansing No -Bioengineered Tissue No -Bleeding Controlled with Pressure -Offloading No -Treatment Response Procedure Tolerated Well [See Physician Procedure note for Specifics] Pain Scale: 0-10 Numeric [Pain] -Is Patient Pain Free? Yes Musculoskeletal: No Muscle Wasting Neurological: Cranial nerves II-XII grossly intact Psych/Mental Status: Normal Affect Debridement Note Post-Debridement Measurements/Treatment WC - Nurse 2 - General Ulcer CM Notes Start: 04/13/19 10:25 Freq: Status: Active Protocol: Activity Type Activity Date Activity User E-Sign Co-Sign Detail Recorded Client Recorded Date Recorded By Document 04/13/19 11:17 MW [id number] 04/13/19 11:31 MW Document 04/20/19 11:23 MW [id number] 04/20/19 11:35 MW Document 04/27/19 12:36 MW [id number] 04/27/19 12:40 MW 04/13/19 04/20/19 04/27/19 11:17 11:23 12:36 Wound Center Nurse 2 #10- LT ANTERIOR THIGH -Time 11:19 11:23 12:37 -Correct Patient Yes Yes Yes -Correct Side, Site, Position Yes Yes Yes -Correct Procedure Yes Yes Yes -Procedure Performed Yes Yes Yes -Type of Procedure Debridement Debridement Debridement -Clinical Debridement Subcutaneous Subcutaneous Subcutaneous -Post Debridement Size (cm) - Length 1.0 0.8 0.6 -Post Debridement Size (cm) - Width 4.0 2.8 2.3 -Post Debridement Size (cm) - Depth 2.5 1.0 0.4 -Total Square Cm 4.00 2.24 1.38 -Wound/Ulcer Outcome Not Healed Not Healed Not Healed -Ulcer Cleansing Rinsed/ Rinsed/ Rinsed/ Irrigated with Irrigated with Irrigated with Saline Saline Saline -Foul Odor after Cleansing No No No -Bioengineered Tissue No No No -Bleeding Controlled with Pressure Pressure Pressure -Offloading No No No -Treatment Response Procedure Procedure Procedure Tolerated Well Tolerated Well Tolerated Well #8- LT POST CALF CLUSTER -Time 11:20 11:24 12:37 -Correct Patient Yes Yes Yes -Correct Side, Site, Position Yes Yes Yes -Correct Procedure Yes Yes Yes -Procedure Performed Yes Yes Yes -Type of Procedure Debridement Debridement Debridement -Clinical Debridement Subcutaneous Subcutaneous Subcutaneous -Post Debridement Size (cm) - Length 0.6 0.3 0.4 -Post Debridement Size (cm) - Width 2.0 2.0 0.6 -Post Debridement Size (cm) - Depth 0.1 0.1 0.1 -Total Square Cm 1.20 0.60 0.24 -Wound/Ulcer Outcome Not Healed Not Healed Not Healed -Ulcer Cleansing Rinsed/ Rinsed/ Rinsed/ Irrigated with Irrigated with Irrigated with Saline Saline Saline -Foul Odor after Cleansing No No No -Bioengineered Tissue No No No -Bleeding Controlled with Pressure Pressure Pressure -Offloading No No No -Treatment Response Procedure Procedure Procedure Tolerated Well Tolerated Well Tolerated Well #1 RIGHT POSTERIOR CALF CLUSTER -Time 11:21 11:24 12:37 -Correct Patient Yes Yes Yes -Correct Side, Site, Position Yes Yes Yes -Correct Procedure Yes Yes Yes -Procedure Performed Yes Yes Yes -Type of Procedure Debridement Debridement Debridement -Clinical Debridement Subcutaneous Subcutaneous Subcutaneous -Post Debridement Size (cm) - Length 8.8 8.0 7.0 -Post Debridement Size (cm) - Width 6.5 16.0 14.0 -Post Debridement Size (cm) - Depth 0.1 0.1 0.1 -Total Square Cm 57.20 128.00 98.00 -Wound/Ulcer Outcome Not Healed Not Healed Not Healed -Ulcer Cleansing Rinsed/ Rinsed/ Rinsed/ Irrigated with Irrigated with Irrigated with Saline Saline Saline -Foul Odor after Cleansing No No No -Bioengineered Tissue No No No -Bleeding Controlled with Pressure Pressure Pressure -Offloading No No No -Treatment Response Procedure Procedure Procedure Tolerated Well Tolerated Well Tolerated Well Pain Scale: 0-10 Numeric Is Patient Pain Free? Yes Yes Yes Wound debrided: Left lower extremity Wound Grade/Stage: Stage II Type of Debridement: Excisional debridement Anesthesia Used: 4% Lidocaine Solution Depth: Down to and including healthy tissue, in the subcutaneous layer Percentage of wound debrided: 100 Instrument Used: 5mm curette Tissue Removed: Slough and-Devitalized tissue Severity: Fat Layer Exposed Amount of bleeding with debridement: Mild Bleeding Controlled with: Pressure Patient tolerated procedure well - Additional Wound Wound debrided: Right lower extremity Wound Grade/Stage: Stage 2 Type of Debridement: Selective debridement Anesthesia Used: 4% Lidocaine Solution Depth: Down to and including healthy tissue Percentage of wound debrided: 100 Instrument Used: 5mm curette Tissue Removed: Devitalized tissue Amount of bleeding with debridement: Mild Bleeding Controlled with: Pressure Patient tolerated procedure: Patient tolerated procedure well - Additional Wound Wound debrided: Left thigh Wound Grade/Stage: Stage III Type of Debridement: Excisional debridement Anesthesia Used: 4% Lidocaine Solution Depth: Down to and including healthy tissue, in the subcutaneous layer Percentage of wound debrided: 100 Instrument Used: 3mm curette Tissue Removed: Slough and devitalized tissue Severity: Fat Layer Exposed Amount of bleeding with debridement: Mild Bleeding Controlled with: Pressure Patient tolerated procedure: Patient tolerated procedure well Assessment/Plan Active Problems Lymphedema (Chronic) Bilateral Lower Extremity. Ulcer of right lower extremity with fat layer exposed (Chronic) Morbid obesity (Chronic) Ulcer of left lower extremity with fat layer exposed (Chronic) Abscess of left lower extremity (Acute) Assessment: Same as above. Plan: Stable ulcers. Left thigh with most improvement. Debridement done as documented above. Procedure was well-tolerated. Continue Aquacel with ABD over top to all ulcers. Change 4-5 times daily depending on drainage. VAC holiday for a week, reassess next week. Patient continues to require large amounts of wound care supply due to size as documented above of ulcer and significant drainage. Also advised that she elevate her lower extremity when seated and in bed. Increased protein intake recommended. She expressed understanding. Daily isreal wraps for edema management for now. Did not tolerate 3M wraps and Isreal wrap not sufficiently managing edema. Will require a lymphedema pump due to chronic poorly controlled bilateral lymphedema. Due to poor compliance and inability to adequately care for herself prognosis for wound healing is not very encouraging. She remains complex care pending further resolution/consistency of home care situation. Her questions were answered and she was advised to call with any further questions or concerns. Follow-up in 1 week. This note was generated with [employer] dictation software. It may contain incorrect words, spelling, and punctuation that were not noted in checking the note before signing.
[2019-05-03 09:19] VITALS: BP 127/73; PULSE 64; RESP 18; TEMP 35; BMI 74.0
== END 2019-05-03 23:59 ==
LOC: WC 11:45
PROVIDERS: Family Provider Family Medicine; PCP Family Medicine; Visit Provider Internal Medicine
DX: L97.212 Non-pressure chronic ulcer of right calf with fat layer exposed (principal); L97.222 Non-pressure chronic ulcer of left calf with fat layer exposed; L97.122 Non-pressure chronic ulcer of left thigh with fat layer exposed; E66.01 Morbid (severe) obesity due to excess calories; Z71.3 Dietary counseling and surveillance; Z68.45 Body mass index [BMI] 70 or greater, adult
CPT/HCPCS: 11042; 11045; 97597; 97605

== ENCOUNTER 2019-05-22 08:38 | Day surgery (SDC) | payer MEDICARE, MEDICAID, SELFPAY ==
[2019-05-11 09:36] VITALS: BMI 74.0
[2019-05-22 09:13] VITALS: BP 115/52; PULSE 64; RESP 20; TEMP 36.7; O2SAT 100; BMI 71.4
[2019-05-22] MEDS: MethylPREDNISolone Acetate 80 MG/ML Vial (10:45)
[2019-05-22] MEDS: Bupivacaine 0.25% 30 ML Vial (10:45)
[2019-05-22 10:56] VITALS: BP 111/58; BP 115/52; PULSE 61; RESP 16; TEMP 36.1; O2SAT 100
[2019-05-22 11:01] VITALS: BP 105/60; BP 115/52; PULSE 60; RESP 16; O2SAT 100
[2019-05-22 11:06] VITALS: BP 105/56; BP 115/52; PULSE 57; RESP 16; O2SAT 100
--- NOTE | 2019-05-22 11:10 | RAD_ITS ---
STUDY: RADIO FREQUENCY ABLATION C4-C7 LEFT SIDE REASON FOR EXAM: Female, 49 years old. Neck pain RADIATION DOSAGE (If Supplied By Facility): CTDIvol = ( ) mGy, DLP = ( ) mGycm. Individualized dose optimization techniques were used for this CT.? FLUOROSCOPY TIME (if supplied): (0:26) minutes/seconds TECHNIQUE: Intraoperative fluoroscopy COMPARISON: None. FINDINGS: INTRAOPERATIVE FLUOROSCOPY PROVIDED FOR RADIO FREQUENCY ABLATION OF C4-C7 ON THE LEFT SIDE RAD/Cerv Spine 4 or 5 Views IMPRESSION: As above. Electronically Signed: Kip William MD at 14:40 EDT Tel [phone], Service support ,
[2019-05-22 11:11] VITALS: BP 115/52; BP 98/53; PULSE 59; RESP 16; TEMP 36.2; O2SAT 100
[2019-05-22 11:28] VITALS: BP 115/52
--- NOTE | 2019-05-22 17:55 | PCM.OPRPT ---
Problem List (1) Cervical spondylosis Status: Chronic (2) Degenerative disc disease, cervical Status: Chronic (3) Facet arthropathy, cervical Status: Chronic Report of Operation Date of Procedure: 05/22/19 Description of Surgical Findings:: PROCEDURE: Left-sided cervical facet steroid injection C4, C5, C6, C7 PREOPERATIVE DIAGNOSES: Cervical spondylosis, cervical degenerative disc disease, and cervical facet arthropathy POSTOPERATIVE DIAGNOSES: Cervical spondylosis, cervical degenerative disc disease, and cervical facet arthropathy ANESTHESIA: MAC COMPLICATIONS: None BLOOD LOSS: Minimal PROCEDURE IN DETAIL: History and physical today was reviewed. Risks and benefits of the procedure were explained. The patient understood, agreed to our procedure, and informed consent was obtained. IV inserted per routine protocol. The patient was taken to the operating room, placed in a prone position with a pillow positioned underneath the chest. The neck area was prepped and draped in a sterile fashion using iodine x3. Under fluoroscopy guidance, on AP view, C4 through C7 vertebral bodies were visualized. At approximately 10 degrees angle starting on the left C4 ending on the left C7 passing through the C5-C6 using a 25-gauge 3-1/2 inch spinal needle the needle was advanced by the skin the tip of the needle was maneuvered and directed towards the epiphyseal junction of each corresponding vertebra once the tip of the needle was at the vicinity of the medial branch and contact with the bone the needle pulled approximately 2 mm of the bone after negative aspiration for blood or CSF and confirmation AP as well as oblique view a total of 4 cc of preservative-free 0.25% Marcaine with 80 mg of Depo-Medrol were injected in divided doses between those 4 levels. The needles were then removed intact. The patient experienced no signs or symptoms of intrathecal, intravascular injection. The patient experienced no paraesthesia. The procedure was completed without any apparent difficulty, any complication. The patient appeared to tolerate well. Sensory as well as motor exam was unchanged from prior to procedure. ASSESSMENT AND PLAN: This is a 49-year-old female with cervical spondylosis, cervical degenerative disc disease, and cervical facet arthropathy, status post left-sided cervical facet steroid injection C4 through C7. The patient will continue her current medications. The patient will follow up in approximately 2 weeks fo reevaluation.
== END 2019-05-22 11:44 | disposition home or self-care (01) ==
LOC: SDC 08:43 → AC 09:08
PROVIDERS: Family Provider Family Medicine; PCP Family Medicine; Referring Provider Anesthesiology Pain Medicine; Visit Provider Anesthesiology Pain Medicine
PROC: 3E0U3BZ Introduction of Anesthetic Agent into Joints, Percutaneous Approach (ICD-10-PCS; CPT 64490; principal; 2019-05-22 11:05)
DX: M47.892 Other spondylosis, cervical region (principal); M50.30 Other cervical disc degeneration, unspecified cervical region; M46.92 Unspecified inflammatory spondylopathy, cervical region; G89.29 Other chronic pain; K21.9 Gastro-esophageal reflux disease without esophagitis; K58.9 Irritable bowel syndrome, unspecified; E78.00 Pure hypercholesterolemia, unspecified; F32.9 Major depressive disorder, single episode, unspecified; F41.9 Anxiety disorder, unspecified; E06.9 Thyroiditis, unspecified; I10 Essential (primary) hypertension; J44.9 Chronic obstructive pulmonary disease, unspecified; G43.909 Migraine, unspecified, not intractable, without status migrainosus; E66.01 Morbid (severe) obesity due to excess calories; Z68.45 Body mass index [BMI] 70 or greater, adult; Z79.891 Long term (current) use of opiate analgesic; Z79.899 Other long term (current) drug therapy
CPT/HCPCS: 64491; 64492; 64490; 72050; J7120

== ENCOUNTER 2019-06-01 09:45 | Outpatient (RCR) | payer MEDICARE, MEDICAID, SELFPAY ==
[2019-05-04 00:40] VITALS: BP 127/73; PULSE 64; RESP 18; TEMP 35
[2019-05-11 09:36] VITALS: BP 117/74; PULSE 71; RESP 18; TEMP 36.1; BMI 74.0
--- NOTE | 2019-05-11 11:43 | PN.PCM_ITS ---
(1) Abscess of left lower leg Status: Chronic Current Visit: Yes Code(s): L02.416 - Cutaneous abscess of left lower limb Comment: Left lower extremity ulcer s/p surgical I and D with fat layer exposed. (2) Lymphedema Status: Chronic Current Visit: Yes Code(s): I89.0 - Lymphedema, not elsewhere classified Comment: Secondary to chronic venous insufficieny of Bilateral Lower Extremity. (3) Morbid obesity Status: Chronic Current Visit: No Code(s): E66.01 - Morbid (severe) obesity due to excess calories (4) Ulcer of left lower extremity with fat layer exposed Status: Chronic Current Visit: Yes Code(s): L97.922 - Non-pressure chronic ulcer of unspecified part of left lower leg with fat layer exposed (5) Ulcer of right lower extremity with fat layer exposed Status: Chronic Current Visit: No Code(s): L97.912 - Non-pressure chronic ulcer of unspecified part of right lower leg with fat layer exposed (6) Secondary lymphedema Status: Chronic Current Visit: Yes Code(s): I89.0 - Lymphedema, not elsewhere classified Type of Wound Date of Service: 05/11/19 Chief Complaint: Right lower extremity ulcers. History of Wound: Ms. Molina is a 48-year-old who was referred to the wound center by her primary care physician due to right lower extremity ulcers. Per patient, started out with redness pain and swelling for which she was managed for cellulitis. Subsequently developed ulcerations in her calf and enciso. She feels well other at this time and denies chills, fever, nausea, vomitting or change in her bowel habit. Progress of Wound: No new concerns at this time. Right lower extremity with new areas( over previoulsy healed areas ) . - Physical Exam Vital Signs Temp Pulse Resp BP 97 F L 71 18 117/74 05/11/19 09:36 05/11/19 09:36 05/11/19 09:36 05/11/19 09:36 General: Alert, Oriented x3, Cooperative, No apparent distress HEENT: Atraumatic, Normocephalic Oral: Moist Mucosa Neck: Supple Lungs: Normal air movement Abdomen: Non Tender, Obese Extremities: No cyanosis, Edema Skin: Ulcer/ Wound Wound Measurements and Assessment WC - Nurse 1 - General Ulcer Measurement Start: 05/11/19 09:36 Freq: Status: Active Protocol: Activity Type Activity Date Activity User E-Sign Co-Sign Detail Recorded Client Recorded Date Recorded By Document 05/11/19 09:36 RB [id number] 05/11/19 09:49 MYRA 05/11/19 09:36 Wound Center Nurse 1 [Ulcer Assessment] #10- LT ANTERIOR THIGH -Combined with other wound No -Current Size (cm) - Length 0.3 -Current Size (cm) - Width 3 -Current Size (cm) - Depth 0.2 -Total Square Cm 0.9 -Tunneling No -Undermining/Tunneling No -Circular Undermining No -Exudate Amt Small -Exudate Type Serosanguineous -Wound Margin Flat & Intact -Granulation Amt Large (67-100%) -Granulation Quality [place] -Slough/Fibrin Yes -Necrosis Amt Small (1-33%) -Necrotic Tissue Type Adherent Slough -Structure Exposed N/A -Texture (Martha-wound Skin Appearance) Assessed, Friable -Moisture (Martha-wound Skin Appearance Maceration ) -Color (Martha-wound Skin Appearance) Assessed -Temperature (Martha-wound Skin No Abnormality Appearance) (Pt Warm) -Tenderness on Palpation (Martha-wound No Skin Appearance) -Ulcer Cleansing Wound Cleanser -Foul Odor after Cleansing No -Anesthetic Used 5% Lidocaine Gel #8- LT POST CALF CLUSTER -Combined with other wound No -Current Size (cm) - Length 0.1 -Current Size (cm) - Width 0.1 -Current Size (cm) - Depth 0.1 -Total Square Cm 0.01 -Tunneling No -Undermining/Tunneling No -Circular Undermining No -Exudate Amt None Present -Wound Margin Flat & Intact -Granulation Amt Medium (34-66%) -Granulation Quality [place] -Slough/Fibrin Yes -Necrosis Amt Medium (34-66%) -Necrotic Tissue Type Adherent Slough -Structure Exposed N/A -Texture (Martha-wound Skin Appearance) Assessed -Moisture (Martha-wound Skin Appearance Assessed ) -Color (Martha-wound Skin Appearance) Assessed -Ulcer Cleansing Wound Cleanser -Foul Odor after Cleansing No -Anesthetic Used 5% Lidocaine Gel #1 RIGHT POSTERIOR CALF superior -Combined with other wound No -Current Size (cm) - Length 21 -Current Size (cm) - Width 12 -Current Size (cm) - Depth 0.1 -Total Square Cm 252 -Tunneling No -Undermining/Tunneling No -Circular Undermining No -Exudate Amt Small -Exudate Type Serosanguineous -Wound Margin Flat & Intact -Granulation Amt Large (67-100%) -Granulation Quality [place] -Slough/Fibrin Yes -Necrosis Amt Small (1-33%) -Necrotic Tissue Type Adherent Slough -Structure Exposed N/A -Texture (Martha-wound Skin Appearance) Assessed -Moisture (Martha-wound Skin Appearance Assessed ) -Color (Martha-wound Skin Appearance) Assessed -Temperature (Martha-wound Skin No Abnormality Appearance) (Pt Warm) -Tenderness on Palpation (Martha-wound No Skin Appearance) -Ulcer Cleansing Wound Cleanser -Foul Odor after Cleansing No -Anesthetic Used 5% Lidocaine Gel [Edema Assessment] -Lower Limb Edema Present Yes -Right Calf (cm) 76 -Right Ankle (cm) 36.2 -Left Calf (cm) 66 -Left Ankle (cm) 31 WC - Nurse 2 - General Ulcer CM Notes Start: 05/11/19 09:36 Freq: Status: Active Protocol: Activity Type Activity Date Activity User E-Sign Co-Sign Detail Recorded Client Recorded Date Recorded By Document 05/11/19 10:01 MW [id number] 05/11/19 10:09 MW 05/11/19 10:01 Wound Center Nurse 2 [Procedure/Treatment] #11 right posterior calf inferior -Time 10:04 -Correct Patient Yes -Correct Side, Site, Position Yes -Correct Procedure Yes -Procedure Performed Yes -Type of Procedure Debridement -Clinical Debridement Subcutaneous -Post Debridement Size (cm) - Length 7.0 -Post Debridement Size (cm) - Width 6.0 -Post Debridement Size (cm) - Depth 0.1 -Total Square Cm 42.00 -Wound/Ulcer Outcome Not Healed -Ulcer Cleansing Rinsed/ Irrigated with Saline -Foul Odor after Cleansing No -Bioengineered Tissue No -Bleeding Controlled with Pressure -Offloading No -Treatment Response Procedure Tolerated Well #10- LT ANTERIOR THIGH -Time 10:02 -Correct Patient Yes -Correct Side, Site, Position Yes -Correct Procedure Yes -Procedure Performed Yes -Type of Procedure Debridement -Clinical Debridement Subcutaneous -Post Debridement Size (cm) - Length 0.3 -Post Debridement Size (cm) - Width 0.5 -Post Debridement Size (cm) - Depth 0.1 -Total Square Cm 0.15 -Wound/Ulcer Outcome Not Healed -Ulcer Cleansing Rinsed/ Irrigated with Saline -Foul Odor after Cleansing No -Bioengineered Tissue No -Bleeding Controlled with Pressure -Offloading No -Treatment Response Procedure Tolerated Well #8- LT POST CALF CLUSTER -Time 10:02 -Correct Patient Yes -Correct Side, Site, Position Yes -Correct Procedure Yes -Procedure Performed No -Post Debridement Size (cm) - Length 0.1 -Post Debridement Size (cm) - Width 0.1 -Post Debridement Size (cm) - Depth 0.1 -Total Square Cm 0.01 -Wound/Ulcer Outcome Not Healed -Ulcer Cleansing Rinsed/ Irrigated with Saline -Foul Odor after Cleansing No -Bioengineered Tissue No -Bleeding Controlled with Pressure -Offloading No -Treatment Response Procedure Tolerated Well #1 RIGHT POSTERIOR CALF superior -Time 10:03 -Correct Patient Yes -Correct Side, Site, Position Yes -Correct Procedure Yes -Procedure Performed Yes -Type of Procedure Debridement -Clinical Debridement Subcutaneous -Post Debridement Size (cm) - Length 4.0 -Post Debridement Size (cm) - Width 4.5 -Post Debridement Size (cm) - Depth 0.1 -Total Square Cm 18.00 -Wound/Ulcer Outcome Not Healed -Ulcer Cleansing Rinsed/ Irrigated with Saline -Foul Odor after Cleansing No -Bioengineered Tissue No -Bleeding Controlled with Pressure -Offloading No -Treatment Response Procedure Tolerated Well [See Physician Procedure note for Specifics] Pain Scale: 0-10 Numeric [Pain] -Is Patient Pain Free? Yes Musculoskeletal: No Muscle Wasting Neurological: Cranial nerves II-XII grossly intact Psych/Mental Status: Normal Affect Debridement Note Post-Debridement Measurements/Treatment WC - Nurse 2 - General Ulcer CM Notes Start: 05/11/19 09:36 Freq: Status: Active Protocol: Activity Type Activity Date Activity User E-Sign Co-Sign Detail Recorded Client Recorded Date Recorded By Document 05/11/19 10:01 MW [id number] 05/11/19 10:09 MW 05/11/19 10:01 Wound Center Nurse 2 #11 right posterior calf inferior -Time 10:04 -Correct Patient Yes -Correct Side, Site, Position Yes -Correct Procedure Yes -Procedure Performed Yes -Type of Procedure Debridement -Clinical Debridement Subcutaneous -Post Debridement Size (cm) - Length 7.0 -Post Debridement Size (cm) - Width 6.0 -Post Debridement Size (cm) - Depth 0.1 -Total Square Cm 42.00 -Wound/Ulcer Outcome Not Healed -Ulcer Cleansing Rinsed/ Irrigated with Saline -Foul Odor after Cleansing No -Bioengineered Tissue No -Bleeding Controlled with Pressure -Offloading No -Treatment Response Procedure Tolerated Well #10- LT ANTERIOR THIGH -Time 10:02 -Correct Patient Yes -Correct Side, Site, Position Yes -Correct Procedure Yes -Procedure Performed Yes -Type of Procedure Debridement -Clinical Debridement Subcutaneous -Post Debridement Size (cm) - Length 0.3 -Post Debridement Size (cm) - Width 0.5 -Post Debridement Size (cm) - Depth 0.1 -Total Square Cm 0.15 -Wound/Ulcer Outcome Not Healed -Ulcer Cleansing Rinsed/ Irrigated with Saline -Foul Odor after Cleansing No -Bioengineered Tissue No -Bleeding Controlled with Pressure -Offloading No -Treatment Response Procedure Tolerated Well #8- LT POST CALF CLUSTER -Time 10:02 -Correct Patient Yes -Correct Side, Site, Position Yes -Correct Procedure Yes -Procedure Performed No -Post Debridement Size (cm) - Length 0.1 -Post Debridement Size (cm) - Width 0.1 -Post Debridement Size (cm) - Depth 0.1 -Total Square Cm 0.01 -Wound/Ulcer Outcome Not Healed -Ulcer Cleansing Rinsed/ Irrigated with Saline -Foul Odor after Cleansing No -Bioengineered Tissue No -Bleeding Controlled with Pressure -Offloading No -Treatment Response Procedure Tolerated Well #1 RIGHT POSTERIOR CALF superior -Time 10:03 -Correct Patient Yes -Correct Side, Site, Position Yes -Correct Procedure Yes -Procedure Performed Yes -Type of Procedure Debridement -Clinical Debridement Subcutaneous -Post Debridement Size (cm) - Length 4.0 -Post Debridement Size (cm) - Width 4.5 -Post Debridement Size (cm) - Depth 0.1 -Total Square Cm 18.00 -Wound/Ulcer Outcome Not Healed -Ulcer Cleansing Rinsed/ Irrigated with Saline -Foul Odor after Cleansing No -Bioengineered Tissue No -Bleeding Controlled with Pressure -Offloading No -Treatment Response Procedure Tolerated Well Pain Scale: 0-10 Numeric Is Patient Pain Free? Yes Wound debrided: Right lower extremity ( superior ) Wound Grade/Stage: Stage II Type of Debridement: Excisional debridement Anesthesia Used: 4% Lidocaine Solution Depth: Down to and including healthy tissue, in the subcutaneous layer Percentage of wound debrided: 100 Instrument Used: 3mm curette Tissue Removed: Slough and devitalized tissue Severity: Fat Layer Exposed Amount of bleeding with debridement: Mild Bleeding Controlled with: Pressure Patient tolerated procedure well - Additional Wound Wound debrided: Right lower extremity ( Inferior ) Wound Grade/Stage: Stage II Type of Debridement: Excisional debridement Anesthesia Used: 4% Lidocaine Solution Depth: Down to and including healthy tissue, in the subcutaneous layer Percentage of wound debrided: 100 Instrument Used: 3mm curette Tissue Removed: Slough and devitalized tissue Severity: Fat Layer Exposed Amount of bleeding with debridement: Mild Bleeding Controlled with: Pressure Patient tolerated procedure: Patient tolerated procedure well - Additional Wound Wound debrided: Left Thigh Wound Grade/Stage: Stage III Type of Debridement: Excisional debridement Anesthesia Used: 4% Lidocaine Solution Depth: Down to and including healthy tissue, in the subcutaneous layer Percentage of wound debrided: 100 Instrument Used: 3mm curette Tissue Removed: Slough and devitalized tissue Severity: Fat Layer Exposed Amount of bleeding with debridement: Mild Bleeding Controlled with: Pressure Patient tolerated procedure: Patient tolerated procedure well Assessment/Plan Active Problems Lymphedema (Chronic) Secondary to chronic venous insufficieny of Bilateral Lower Extremity. Secondary lymphedema (Chronic) Ulcer of left lower extremity with fat layer exposed (Chronic) Abscess of left lower leg (Chronic) Left lower extremity ulcer s/p surgical I and D with fat layer exposed. Assessment: Same as above. Plan: Improving. Debridement done as documented above. Procedure was well- tolerated. Continue Aquacel with ABD over top to all ulcers. Change 4-5 times daily depending on drainage. DC VAc.Patient continues to require large amounts of wound care supply due to size as documented above of ulcer and significant drainage. Also advised that she elevate her lower extremity when seated and in bed. Increased protein intake recommended. Exercise as tolerated and avoid idle standing. She expressed understanding. Daily isreal wraps for edema management for now. Did not tolerate 3M wraps and Isreal wrap not sufficiently managing edema. Will require a lymphedema pump due to chronic poorly controlled bilateral lymphedema. Due to poor compliance and inability to adequately care for herself prognosis for wound healing is not very encouraging. She remains complex care pending further resolution/consistency of home care situation. Her questions were answered and she was advised to call with any further questions or con cerns. Follow-up in 1 week. This note was generated with [employer] dictation software. It may contain incorrect words, spelling, and punctuation that were not noted in checking the note before signing.
[2019-05-25 11:32] VITALS: BP 145/82; PULSE 62; RESP 18; TEMP 36.5; BMI 74.0
--- NOTE | 2019-05-25 12:13 | PN.PCM_ITS ---
(1) Abscess of left lower leg Status: Chronic Current Visit: No Code(s): L02.416 - Cutaneous abscess of left lower limb Comment: Left lower extremity ulcer s/p surgical I and D with fat layer exposed. (2) Lymphedema Status: Chronic Current Visit: No Code(s): I89.0 - Lymphedema, not elsewhere classified Comment: Secondary to chronic venous insufficieny of Bilateral Lower Extremity. (3) Morbid obesity Status: Chronic Current Visit: No Code(s): E66.01 - Morbid (severe) obesity due to excess calories (4) Ulcer of left lower extremity with fat layer exposed Status: Chronic Current Visit: No Code(s): L97.922 - Non-pressure chronic ulcer of unspecified part of left lower leg with fat layer exposed (5) Ulcer of right lower extremity with fat layer exposed Status: Chronic Current Visit: No Code(s): L97.912 - Non-pressure chronic ulcer of unspecified part of right lower leg with fat layer exposed (6) Secondary lymphedema Status: Chronic Current Visit: No Code(s): I89.0 - Lymphedema, not elsewhere classified Type of Wound Date of Service: 05/25/19 Chief Complaint: Right lower extremity ulcers. History of Wound: Ms. Molina is a 48-year-old who was referred to the wound center by her primary care physician due to right lower extremity ulcers. Per patient, started out with redness pain and swelling for which she was managed for cellulitis. Subsequently developed ulcerations in her calf and enciso. She feels well other at this time and denies chills, fever, nausea, vomitting or change in her bowel habit. Progress of Wound: Left Thigh is healed. New left posterior lower extremity ulcer. Right lower extremity with new areas again. ( over previoulsy healed areas ) . She reports compliance with her pump. - Physical Exam Vital Signs Temp Pulse Resp BP 97.7 F L 62 18 145/82 H 05/25/19 11:32 05/25/19 11:32 05/25/19 11:32 05/25/19 11:32 General: Alert, Oriented x3, Cooperative, No apparent distress HEENT: Atraumatic Oral: Moist Mucosa Neck: Supple Lungs: Normal air movement Abdomen: Non Tender, Obese Extremities: No cyanosis, Edema Skin: Ulcer/ Wound Wound Measurements and Assessment WC - Nurse 1 - General Ulcer Measurement Start: 05/11/19 09:36 Freq: Status: Active Protocol: Activity Type Activity Date Activity User E-Sign Co-Sign Detail Recorded Client Recorded Date Recorded By Document 05/25/19 11:32 DL [id number] 05/25/19 11:49 DL 05/25/19 11:32 Wound Center Nurse 1 [Ulcer Assessment] #11 right posterior calf inferior -Current Size (cm) - Length 22 -Current Size (cm) - Width 20 -Current Size (cm) - Depth 0.1 -Total Square Cm 440 -Photo Taken No -Exudate Amt Large -Exudate Type Serosanguineous -Wound Margin Indistinct, Non -Visible -Granulation Amt Medium (34-66%) -Granulation Quality [place] -Necrosis Amt Medium (34-66%) -Necrotic Tissue Type Adherent Slough -Structure Exposed N/A -Texture (Martha-wound Skin Appearance) Localized Edema ,Scarring -Moisture (Martha-wound Skin Appearance Maceration ) -Color (Martha-wound Skin Appearance) Erythema, Hemosiderin Staining -Temperature (Martha-wound Skin No Abnormality Appearance) (Pt Warm) -Tenderness on Palpation (Martha-wound No Skin Appearance) -Ulcer Cleansing Wound Cleanser -Foul Odor after Cleansing No -Anesthetic Used 4% Lidocaine Solution #10- LT ANTERIOR THIGH -Current Size (cm) - Length 0 -Current Size (cm) - Width 0 -Current Size (cm) - Depth 0 -Total Square Cm 0 -Photo Taken Yes -Exudate Amt None Present -Exudate Type Serosanguineous -Wound Margin Flat & Intact -Granulation Amt Large (67-100%) -Granulation Quality [place] -Necrosis Amt None Present (0 %) -Structure Exposed N/A -Texture (Martha-wound Skin Appearance) Scarring -Moisture (Martha-wound Skin Appearance No Abnormality ) -Color (Martha-wound Skin Appearance) No Abnormality -Temperature (Martha-wound Skin No Abnormality Appearance) (Pt Warm) -Tenderness on Palpation (Amrtha-wound No Skin Appearance) -Ulcer Cleansing Wound Cleanser -Foul Odor after Cleansing No #8- LT POST CALF CLUSTER -Current Size (cm) - Length 2.5 -Current Size (cm) - Width 1.8 -Current Size (cm) - Depth 0.1 -Total Square Cm 4.50 -Photo Taken No -Exudate Amt Small -Exudate Type Serosanguineous -Wound Margin Indistinct, Non -Visible -Granulation Amt Large (67-100%) -Granulation Quality [place] -Necrosis Amt None Present (0 %) -Structure Exposed N/A -Texture (Martha-wound Skin Appearance) Localized Edema ,Scarring -Moisture (Martha-wound Skin Appearance No Abnormality ) -Color (Martha-wound Skin Appearance) Hemosiderin Staining -Temperature (Martha-wound Skin No Abnormality Appearance) (Pt Warm) -Tenderness on Palpation (Martha-wound No Skin Appearance) -Ulcer Cleansing Wound Cleanser -Foul Odor after Cleansing No -Anesthetic Used 5% Lidocaine Gel Musculoskeletal: No Muscle Wasting Neurological: Cranial nerves II-XII grossly intact Psych/Mental Status: Normal Affect Debridement Note Post-Debridement Measurements/Treatment WC - Nurse 2 - General Ulcer CM Notes Start: 05/11/19 09:36 Freq: Status: Active Protocol: Activity Type Activity Date Activity User E-Sign Co-Sign Detail Recorded Client Recorded Date Recorded By Document 05/11/19 10:01 MW [id number] 05/11/19 10:09 MW 05/11/19 10:01 Wound Center Nurse 2 #11 right posterior calf inferior -Time 10:04 -Correct Patient Yes -Correct Side, Site, Position Yes -Correct Procedure Yes -Procedure Performed Yes -Type of Procedure Debridement -Clinical Debridement Subcutaneous -Post Debridement Size (cm) - Length 7.0 -Post Debridement Size (cm) - Width 6.0 -Post Debridement Size (cm) - Depth 0.1 -Total Square Cm 42.00 -Wound/Ulcer Outcome Not Healed -Ulcer Cleansing Rinsed/ Irrigated with Saline -Foul Odor after Cleansing No -Bioengineered Tissue No -Bleeding Controlled with Pressure -Offloading No -Treatment Response Procedure Tolerated Well #10- LT ANTERIOR THIGH -Time 10:02 -Correct Patient Yes -Correct Side, Site, Position Yes -Correct Procedure Yes -Procedure Performed Yes -Type of Procedure Debridement -Clinical Debridement Subcutaneous -Post Debridement Size (cm) - Length 0.3 -Post Debridement Size (cm) - Width 0.5 -Post Debridement Size (cm) - Depth 0.1 -Total Square Cm 0.15 -Wound/Ulcer Outcome Not Healed -Ulcer Cleansing Rinsed/ Irrigated with Saline -Foul Odor after Cleansing No -Bioengineered Tissue No -Bleeding Controlled with Pressure -Offloading No -Treatment Response Procedure Tolerated Well #8- LT POST CALF CLUSTER -Time 10:02 -Correct Patient Yes -Correct Side, Site, Position Yes -Correct Procedure Yes -Procedure Performed No -Post Debridement Size (cm) - Length 0.1 -Post Debridement Size (cm) - Width 0.1 -Post Debridement Size (cm) - Depth 0.1 -Total Square Cm 0.01 -Wound/Ulcer Outcome Not Healed -Ulcer Cleansing Rinsed/ Irrigated with Saline -Foul Odor after Cleansing No -Bioengineered Tissue No -Bleeding Controlled with Pressure -Offloading No -Treatment Response Procedure Tolerated Well #1 RIGHT POSTERIOR CALF superior -Time 10:03 -Correct Patient Yes -Correct Side, Site, Position Yes -Correct Procedure Yes -Procedure Performed Yes -Type of Procedure Debridement -Clinical Debridement Subcutaneous -Post Debridement Size (cm) - Length 4.0 -Post Debridement Size (cm) - Width 4.5 -Post Debridement Size (cm) - Depth 0.1 -Total Square Cm 18.00 -Wound/Ulcer Outcome Not Healed -Ulcer Cleansing Rinsed/ Irrigated with Saline -Foul Odor after Cleansing No -Bioengineered Tissue No -Bleeding Controlled with Pressure -Offloading No -Treatment Response Procedure Tolerated Well Pain Scale: 0-10 Numeric Is Patient Pain Free? Yes Wound debrided: Right lower extremity superior cluster Type of Debridement: Selective debridement Anesthesia Used: 4% Lidocaine Solution Percentage of wound debrided: 100 Instrument Used: 3mm curette Tissue Removed: Slough and devitalized tissue Severity: Limited To Skin Breakdown Amount of bleeding with debridement: Mild Bleeding Controlled with: Pressure Patient tolerated procedure well - Additional Wound Wound debrided: Right lower extremity inferior cluster Type of Debridement: Selective debridement Anesthesia Used: 4% Lidocaine Solution Depth: Down to and including healthy tissue Percentage of wound debrided: 100 Instrument Used: 3mm curette Tissue Removed: Slough and devitalized tissue Severity: Limited To Skin Breakdown Amount of bleeding with debridement: Mild Bleeding Controlled with: Pressure Patient tolerated procedure: Patient tolerated procedure well - Additional Wound Wound debrided: Left Calf Type of Debridement: Selective debridement Anesthesia Used: 4% Lidocaine Solution Depth: Down to and including healthy tissue Percentage of wound debrided: 100 Instrument Used: 3mm curette Tissue Removed: Slough and devitalized tissue Severity: Limited To Skin Breakdown Amount of bleeding with debridement: Mild Bleeding Controlled with: Pressure Patient tolerated procedure: Patient tolerated procedure well Assessment/Plan Assessment: Same as above. Plan: New right and left posterior ulcers. Debridement done as documented above. Procedure was well-tolerated. Continue Aquacel with ABD over top to all ulcers. Change 4-5 times daily depending on drainage. Patient continues to require large amounts of wound care supply due to size as documented above of ulcer and significant drainage. Also advised that she elevate her lower extremity when seated and in bed. Increased protein intake recommended. Exercise as tolerated and avoid idle standing. She expressed understanding. Daily isreal wraps for edema management for now. Did not tolerate 3M wraps and Isreal wrap not sufficiently managing edema. Compliance with lymphedema pump strongly recommended. Due to poor compliance and inability to adequately care for herself prognosis for wound healing is not very encouraging. She remains complex care pending further resolution/consistency of home care situation. Her questions were answered and she was advised to call with any further questions or concerns. Follow-up in 1 week. This note was generated with [employer] dictation software. It may contain incorrect words, spelling, and punctuation that were not noted in checking the note before signing.
[2019-06-01 09:47] VITALS: BP 117/72; PULSE 62; RESP 18; TEMP 36.1; BMI 74.0
--- NOTE | 2019-06-01 13:08 | PN.PCM_ITS ---
(1) Abscess of left lower leg Status: Chronic Current Visit: No Code(s): L02.416 - Cutaneous abscess of left lower limb Comment: Left lower extremity ulcer s/p surgical I and D with fat layer exposed. (2) Lymphedema Status: Chronic Current Visit: Yes Code(s): I89.0 - Lymphedema, not elsewhere classified Comment: Secondary to chronic venous insufficieny of Bilateral Lower Extremity. (3) Morbid obesity Status: Chronic Current Visit: Yes Code(s): E66.01 - Morbid (severe) obesity due to excess calories (4) Ulcer of left lower extremity with fat layer exposed Status: Chronic Current Visit: No Code(s): L97.922 - Non-pressure chronic ulcer of unspecified part of left lower leg with fat layer exposed (5) Ulcer of right lower extremity with fat layer exposed Status: Chronic Current Visit: Yes Code(s): L97.912 - Non-pressure chronic ulcer of unspecified part of right lower leg with fat layer exposed (6) Secondary lymphedema Status: Chronic Current Visit: Yes Code(s): I89.0 - Lymphedema, not elsewhere classified Type of Wound Date of Service: 06/01/19 Chief Complaint: Right lower extremity ulcers. History of Wound: Ms. Molina is a 48-year-old who was referred to the wound center by her primary care physician due to right lower extremity ulcers. Per patient, started out with redness pain and swelling for which she was managed for cellulitis. Subsequently developed ulcerations in her calf and enciso. She feels well other at this time and denies chills, fever, nausea, vomitting or change in her bowel habit. Progress of Wound: Stable. No new concerns at this time. - Physical Exam Vital Signs Temp Pulse Resp BP 97 F L 62 18 117/72 06/01/19 09:47 06/01/19 09:47 06/01/19 09:47 06/01/19 09:47 General: Alert, Oriented x3, Cooperative, No apparent distress HEENT: Atraumatic, Normocephalic Oral: Moist Mucosa Neck: Supple Lungs: Normal air movement Abdomen: Non Tender, Obese Extremities: No cyanosis, Edema Skin: Ulcer/ Wound Wound Measurements and Assessment WC - Nurse 1 - General Ulcer Measurement Start: 05/11/19 09:36 Freq: Status: Active Protocol: Activity Type Activity Date Activity User E-Sign Co-Sign Detail Recorded Client Recorded Date Recorded By Document 06/01/19 09:47 RB [id number] 06/01/19 10:03 RB 06/01/19 09:47 Wound Center Nurse 1 [Ulcer Assessment] #12 Left superior calf -Combined with other wound No -Current Size (cm) - Length 3.5 -Current Size (cm) - Width 4.4 -Current Size (cm) - Depth 0.1 -Total Square Cm 15.40 -Tunneling No -Undermining/Tunneling No -Circular Undermining No -Exudate Amt Medium -Exudate Type Serosanguineous -Wound Margin Flat & Intact -Granulation Amt Medium (34-66%) -Granulation Quality [place] -Slough/Fibrin Yes -Necrosis Amt Medium (34-66%) -Necrotic Tissue Type Adherent Slough -Structure Exposed N/A -Texture (Martha-wound Skin Appearance) Assessed -Moisture (Martha-wound Skin Appearance Maceration ) -Color (Martha-wound Skin Appearance) Assessed -Temperature (Martha-wound Skin No Abnormality Appearance) (Pt Warm) -Ulcer Cleansing Wound Cleanser -Foul Odor after Cleansing No -Anesthetic Used 5% Lidocaine Gel #11 right posterior calf inferior -Combined with other wound No -Current Size (cm) - Length 0.1 -Current Size (cm) - Width 0.1 -Current Size (cm) - Depth 0.1 -Total Square Cm 0.01 -Tunneling No -Undermining/Tunneling No -Circular Undermining No -Exudate Amt Large -Exudate Type Serosanguineous -Wound Margin Flat & Intact -Granulation Amt Medium (34-66%) -Granulation Quality [place] -Slough/Fibrin Yes -Necrosis Amt Medium (34-66%) -Necrotic Tissue Type Adherent Slough -Structure Exposed N/A -Texture (Martha-wound Skin Appearance) Excoriation -Moisture (Martha-wound Skin Appearance Maceration ) -Color (Martha-wound Skin Appearance) Erythema -Temperature (Martha-wound Skin No Abnormality Appearance) (Pt Warm) -Tenderness on Palpation (Martha-wound No Skin Appearance) -Ulcer Cleansing Wound Cleanser -Foul Odor after Cleansing No -Anesthetic Used 5% Lidocaine Gel #1 RIGHT POSTERIOR CALF superior -Combined with other wound No -Current Size (cm) - Length 7.5 -Current Size (cm) - Width 5 -Current Size (cm) - Depth 0.1 -Total Square Cm 37.5 -Tunneling No -Undermining/Tunneling No -Circular Undermining No -Exudate Amt Large -Exudate Type Serosanguineous -Wound Margin Flat & Intact -Granulation Amt Medium (34-66%) -Granulation Quality [place] -Slough/Fibrin Yes -Necrosis Amt Medium (34-66%) -Necrotic Tissue Type Adherent Slough -Structure Exposed N/A -Texture (Martha-wound Skin Appearance) Excoriation -Moisture (Martha-wound Skin Appearance Maceration ) -Color (Martha-wound Skin Appearance) Erythema -Temperature (Martha-wound Skin No Abnormality Appearance) (Pt Warm) -Tenderness on Palpation (Martha-wound No Skin Appearance) -Ulcer Cleansing Wound Cleanser -Foul Odor after Cleansing No -Anesthetic Used 5% Lidocaine Gel [Edema Assessment] -Lower Limb Edema Present Yes -Right Calf (cm) 78.5 -Right Ankle (cm) 36.5 -Left Calf (cm) 70.2 -Left Ankle (cm) 32 WC - Nurse 2 - General Ulcer CM Notes Start: 05/11/19 09:36 Freq: Status: Active Protocol: Activity Type Activity Date Activity User E-Sign Co-Sign Detail Recorded Client Recorded Date Recorded By Document 06/01/19 10:13 MW [id number] 06/01/19 10:18 MW 06/01/19 10:13 Wound Center Nurse 2 [Procedure/Treatment] #12 Left superior calf -Time 10:16 -Correct Patient Yes -Correct Side, Site, Position Yes -Correct Procedure Yes -Procedure Performed Yes -Type of Procedure Debridement -Clinical Debridement Subcutaneous -Post Debridement Size (cm) - Length 3.0 -Post Debridement Size (cm) - Width 3.0 -Post Debridement Size (cm) - Depth 0.1 -Total Square Cm 9.00 -Wound/Ulcer Outcome Not Healed -Ulcer Cleansing Rinsed/ Irrigated with Saline -Foul Odor after Cleansing No -Bioengineered Tissue No -Bleeding Controlled with Pressure -Offloading No -Treatment Response Procedure Tolerated Well #11 right posterior calf inferior -Time 10:14 -Correct Patient Yes -Correct Side, Site, Position Yes -Correct Procedure Yes -Procedure Performed No -Post Debridement Size (cm) - Length 0 -Post Debridement Size (cm) - Width 0 -Post Debridement Size (cm) - Depth 0 -Total Square Cm 0 -Wound/Ulcer Outcome Healed- Epithelialized #1 RIGHT POSTERIOR CALF superior -Time 10:14 -Correct Patient Yes -Correct Side, Site, Position Yes -Correct Procedure Yes -Procedure Performed Yes -Type of Procedure Debridement -Clinical Debridement Subcutaneous -Post Debridement Size (cm) - Length 7.0 -Post Debridement Size (cm) - Width 8.0 -Post Debridement Size (cm) - Depth 0.1 -Total Square Cm 56.00 -Wound/Ulcer Outcome Not Healed -Ulcer Cleansing Rinsed/ Irrigated with Saline -Foul Odor after Cleansing No -Bioengineered Tissue No -Bleeding Controlled with Pressure -Offloading No -Treatment Response Procedure Tolerated Well [See Physician Procedure note for Specifics] Pain Scale: 0-10 Numeric [Pain] -Is Patient Pain Free? Yes Neurological: Cranial nerves II-XII grossly intact Psych/Mental Status: Normal Affect Debridement Note Post-Debridement Measurements/Treatment WC - Nurse 2 - General Ulcer CM Notes Start: 05/11/19 09:36 Freq: Status: Active Protocol: Activity Type Activity Date Activity User E-Sign Co-Sign Detail Recorded Client Recorded Date Recorded By Document 05/11/19 10:01 MW [id number] 05/11/19 10:09 MW Document 05/25/19 12:06 MW [id number] 05/25/19 12:20 MW Document 06/01/19 10:13 MW [id number] 06/01/19 10:18 MW 05/11/19 05/25/19 06/01/19 10:01 12:06 10:13 Wound Center Nurse 2 #12 Left superior calf -Time 12:11 10:16 -Correct Patient Yes Yes -Correct Side, Site, Position Yes Yes -Correct Procedure Yes Yes -Procedure Performed Yes Yes -Type of Procedure Debridement Debridement -Clinical Debridement Selective Subcutaneous -Post Debridement Size (cm) - Length 4.5 3.0 -Post Debridement Size (cm) - Width 4.0 3.0 -Post Debridement Size (cm) - Depth 0.1 0.1 -Total Square Cm 18.00 9.00 -Wound/Ulcer Outcome Not Healed Not Healed -Ulcer Cleansing Rinsed/ Rinsed/ Irrigated with Irrigated with Saline Saline -Foul Odor after Cleansing No No -Bioengineered Tissue No No -Bleeding Controlled with Pressure Pressure -Offloading No No -Treatment Response Procedure Procedure Tolerated Well Tolerated Well #11 right posterior calf inferior -Time 10:04 12:06 10:14 -Correct Patient Yes Yes Yes -Correct Side, Site, Position Yes Yes Yes -Correct Procedure Yes Yes Yes -Procedure Performed Yes Yes No -Type of Procedure Debridement Debridement -Clinical Debridement Subcutaneous Subcutaneous -Post Debridement Size (cm) - Length 7.0 8.0 0 -Post Debridement Size (cm) - Width 6.0 7.0 0 -Post Debridement Size (cm) - Depth 0.1 0.1 0 -Total Square Cm 42.00 56.00 0 -Wound/Ulcer Outcome Not Healed Not Healed Healed- Epithelialized -Ulcer Cleansing Rinsed/ Rinsed/ Irrigated with Irrigated with Saline Saline -Foul Odor after Cleansing No No -Bioengineered Tissue No No -Bleeding Controlled with Pressure Pressure -Offloading No No -Treatment Response Procedure Procedure Tolerated Well Tolerated Well #10- LT ANTERIOR THIGH -Time 10:02 12:10 -Correct Patient Yes Yes -Correct Side, Site, Position Yes Yes -Correct Procedure Yes Yes -Procedure Performed Yes No -Type of Procedure Debridement -Clinical Debridement Subcutaneous -Post Debridement Size (cm) - Length 0.3 0 -Post Debridement Size (cm) - Width 0.5 0 -Post Debridement Size (cm) - Depth 0.1 0 -Total Square Cm 0.15 0 -Wound/Ulcer Outcome Not Healed Healed- Epithelialized -Ulcer Cleansing Rinsed/ Irrigated with Saline -Foul Odor after Cleansing No -Bioengineered Tissue No -Bleeding Controlled with Pressure -Offloading No -Treatment Response Procedure Tolerated Well #8- LT POST CALF CLUSTER -Time 10:02 12:08 -Correct Patient Yes Yes -Correct Side, Site, Position Yes Yes -Correct Procedure Yes Yes -Procedure Performed No No -Post Debridement Size (cm) - Length 0.1 0 -Post Debridement Size (cm) - Width 0.1 0 -Post Debridement Size (cm) - Depth 0.1 0 -Total Square Cm 0.01 0 -Wound/Ulcer Outcome Not Healed Healed- Epithelialized -Ulcer Cleansing Rinsed/ Irrigated with Saline -Foul Odor after Cleansing No -Bioengineered Tissue No -Bleeding Controlled with Pressure -Offloading No -Treatment Response Procedure Tolerated Well #1 RIGHT POSTERIOR CALF superior -Time 10:03 12:07 10:14 -Correct Patient Yes Yes Yes -Correct Side, Site, Position Yes Yes Yes -Correct Procedure Yes Yes Yes -Procedure Performed Yes Yes Yes -Type of Procedure Debridement Debridement Debridement -Clinical Debridement Subcutaneous Selective Subcutaneous -Post Debridement Size (cm) - Length 4.0 10.0 7.0 -Post Debridement Size (cm) - Width 4.5 11.0 8.0 -Post Debridement Size (cm) - Depth 0.1 0.1 0.1 -Total Square Cm 18.00 110.00 56.00 -Wound/Ulcer Outcome Not Healed Not Healed Not Healed -Ulcer Cleansing Rinsed/ Rinsed/ Rinsed/ Irrigated with Irrigated with Irrigated with Saline Saline Saline -Foul Odor after Cleansing No No No -Bioengineered Tissue No No No -Bleeding Controlled with Pressure Pressure Pressure -Offloading No No No -Treatment Response Procedure Procedure Procedure Tolerated Well Tolerated Well Tolerated Well Pain Scale: 0-10 Numeric Is Patient Pain Free? Yes Yes Yes Wound debrided: Left lower extremity (posterior cluster) Type of Debridement: Excisional debridement Anesthesia Used: 4% Lidocaine Solution Depth: Down to and including healthy tissue, in the subcutaneous layer Percentage of wound debrided: 100 Instrument Used: 7mm curette Tissue Removed: Slough and devitalized tissue Severity: Fat Layer Exposed Amount of bleeding with debridement: Mild Bleeding Controlled with: Pressure Patient tolerated procedure well - Additional Wound Wound debrided: Right lower extremity superior cluster Wound Grade/Stage: Stage II Type of Debridement: Excisional debridement Anesthesia Used: 4% Lidocaine Solution Depth: Down to and including healthy tissue, in the subcutaneous layer Percentage of wound debrided: 100 Instrument Used: 7mm curette Tissue Removed: Slough and devitalized tissue Severity: Fat Layer Exposed Amount of bleeding with debridement: Mild Bleeding Controlled with: Pressure Patient tolerated procedure: Patient tolerated procedure well Assessment/Plan Active Problems Lymphedema (Chronic) Secondary to chronic venous insufficieny of Bilateral Lower Extremity. Secondary lymphedema (Chronic) Ulcer of right lower extremity with fat layer exposed (Chronic) Morbid obesity (Chronic) Assessment: Same as above. Plan: Debridement done as documented above. Procedure was well-tolerated. Continue Aquacel with ABD over top to all ulcers. Change 4-5 times daily depending on drainage. Patient continues to require large amounts of wound care supply due to size as documented above of ulcer and significant drainage. Also advised that she elevate her lower extremity when seated and in bed. Increased protein intake recommended. Exercise as tolerated and avoid idle standing. She expressed understanding. Daily isreal wraps for edema management for now. Did not tolerate 3M wraps and Isreal wrap not sufficiently managing edema. Compliance with lymphedema pump strongly recommended. Due to poor compliance and inability to adequately care for herself prognosis for wound healing is not very encouraging. She remains complex care pending further resolution/consistency of home care situation. Her questions were answered and she was advised to call with any further questions or concerns. Follow-up in 2 week. This note was generated with [email or web address] dictation software. It may contain incorrect words, spelling, and punctuation that were not noted in checking the note before signing.
== END 2019-06-03 23:59 ==
LOC: WC 09:45
PROVIDERS: Family Provider Family Medicine; PCP Family Medicine; Visit Provider Internal Medicine
DX: L97.212 Non-pressure chronic ulcer of right calf with fat layer exposed (principal); L97.122 Non-pressure chronic ulcer of left thigh with fat layer exposed; E66.01 Morbid (severe) obesity due to excess calories; Z71.3 Dietary counseling and surveillance; Z68.45 Body mass index [BMI] 70 or greater, adult; I89.0 Lymphedema, not elsewhere classified; L97.221 Non-pressure chronic ulcer of left calf limited to breakdown of skin; L97.222 Non-pressure chronic ulcer of left calf with fat layer exposed
CPT/HCPCS: 11042; 11045; 97597; 97598

== ENCOUNTER 2019-06-29 10:30 | Outpatient (RCR) | payer MEDICARE, MEDICAID, SELFPAY ==
[2019-06-04 00:35] VITALS: BP 117/72; PULSE 62; RESP 18; TEMP 36.1; BMI 71.4
[2019-06-22 10:09] VITALS: BP 125/73; PULSE 66; RESP 24; TEMP 36; BMI 71.4
--- NOTE | 2019-06-22 18:48 | PN.PCM_ITS ---
(1) Bilateral lower extremity edema Status: Chronic Current Visit: Yes Code(s): R60.0 - Localized edema (2) Lymphedema Status: Chronic Current Visit: Yes Code(s): I89.0 - Lymphedema, not elsewhere classified Comment: Secondary to chronic venous insufficieny of Bilateral Lower Extremity. (3) Ulcer of left lower extremity with fat layer exposed Status: Chronic Current Visit: Yes Code(s): L97.922 - Non-pressure chronic ulcer of unspecified part of left lower leg with fat layer exposed (4) Ulcer of right lower extremity with fat layer exposed Status: Chronic Current Visit: Yes Code(s): L97.912 - Non-pressure chronic ulcer of unspecified part of right lower leg with fat layer exposed Type of Wound Date of Service: 06/22/19 Chief Complaint: Right lower extremity ulcers. History of Wound: Ms. Molina is a 48-year-old who was referred to the wound center by her primary care physician due to right lower extremity ulcers. Per patient, started out with redness pain and swelling for which she was managed for cellulitis. Subsequently developed ulcerations in her calf and enciso. She feels well other at this time and denies chills, fever, nausea, vomitting or change in her bowel habit. Progress of Wound: Status post recent hospital admission for right lower extremity cellulitis. Doing well post discharge. Currently on antibiotics. New right lower extremity ulcerations. - Physical Exam Vital Signs Temp Pulse Resp BP 96.8 F L 66 24 H 125/73 H 06/22/19 10:09 06/22/19 10:09 06/22/19 10:09 06/22/19 10:09 General: Alert, Oriented x3, Cooperative, No apparent distress HEENT: Atraumatic, Normocephalic Oral: Moist Mucosa Neck: Supple Lungs: Normal air movement Abdomen: Soft, Non Tender, Obese Extremities: No cyanosis, Edema Skin: Ulcer/ Wound Wound Measurements and Assessment WC - Nurse 1 - General Ulcer Measurement Start: 06/22/19 10:09 Freq: Status: Active Protocol: Activity Type Activity Date Activity User E-Sign Co-Sign Detail Recorded Client Recorded Date Recorded By Document 06/22/19 10:09 DL [id number] 06/22/19 10:44 DL 06/22/19 10:09 Wound Center Nurse 1 [Ulcer Assessment] #16 R Upper Med thigh Cluster -Current Size (cm) - Length 5 -Current Size (cm) - Width 8 -Current Size (cm) - Depth 0.1 -Total Square Cm 40 -Photo Taken Yes -Exudate Amt Medium -Exudate Type Serosanguineous -Wound Margin Indistinct, Non -Visible -Granulation Amt Medium (34-66%) -Granulation Quality Red -Necrosis Amt Medium (34-66%) -Necrotic Tissue Type Adherent Slough -Structure Exposed N/A -Texture (Martha-wound Skin Appearance) Scarring -Moisture (Martha-wound Skin Appearance Weeping ) -Color (Martha-wound Skin Appearance) Erythema, Hemosiderin Staining -Temperature (Martha-wound Skin No Abnormality Appearance) (Pt Warm) -Tenderness on Palpation (Martha-wound No Skin Appearance) -Ulcer Cleansing Wound Cleanser -Foul Odor after Cleansing No -Anesthetic Used 4% Lidocaine Solution #15 R Lat Knee -Current Size (cm) - Length 1 -Current Size (cm) - Width 5.7 -Current Size (cm) - Depth 0.1 -Total Square Cm 5.7 -Photo Taken Yes -Exudate Amt None Present -Wound Margin Distinct, Outline Attached -Granulation Amt None Present (0 %) -Necrosis Amt Large (67-100%) -Necrotic Tissue Type Eschar -Structure Exposed N/A -Texture (Martha-wound Skin Appearance) Scarring -Moisture (Martha-wound Skin Appearance No Abnormality ) -Color (Martha-wound Skin Appearance) Erythema, Hemosiderin Staining -Temperature (Martha-wound Skin No Abnormality Appearance) (Pt Warm) -Tenderness on Palpation (Martha-wound No Skin Appearance) -Ulcer Cleansing Wound Cleanser -Foul Odor after Cleansing No -Anesthetic Used 4% Lidocaine Solution #14 R MedLE cluster -Current Size (cm) - Length 12 -Current Size (cm) - Width 23 -Current Size (cm) - Depth 0.1 -Total Square Cm 276 -Photo Taken Yes -Exudate Amt Medium -Exudate Type Serosanguineous -Wound Margin Indistinct, Non -Visible -Granulation Amt Medium (34-66%) -Granulation Quality Red -Necrosis Amt Medium (34-66%) -Necrotic Tissue Type Adherent Slough -Structure Exposed N/A -Texture (Martha-wound Skin Appearance) Excoriation, Localized Edema ,Scarring -Moisture (Martha-wound Skin Appearance Weeping ) -Color (Martha-wound Skin Appearance) Hemosiderin Staining -Temperature (Martha-wound Skin No Abnormality Appearance) (Pt Warm) -Tenderness on Palpation (Martha-wound No Skin Appearance) -Ulcer Cleansing Wound Cleanser -Foul Odor after Cleansing No -Anesthetic Used 4% Lidocaine Solution #13 R Lat/Post Cluster -Current Size (cm) - Length 26.5 -Current Size (cm) - Width 27 -Current Size (cm) - Depth 0.1 -Total Square Cm 715.5 -Photo Taken Yes -Exudate Amt Large -Exudate Type Serosanguineous -Wound Margin Indistinct, Non -Visible -Granulation Amt Medium (34-66%) -Granulation Quality [place] -Necrosis Amt Medium (34-66%) -Necrotic Tissue Type Adherent Slough -Structure Exposed N/A -Texture (Martha-wound Skin Appearance) Excoriation, Localized Edema ,Scarring -Moisture (Martha-wound Skin Appearance Weeping ) -Color (Martha-wound Skin Appearance) Erythema, Hemosiderin Staining -Temperature (Martha-wound Skin No Abnormality Appearance) (Pt Warm) -Tenderness on Palpation (Martha-wound No Skin Appearance) -Ulcer Cleansing Wound Cleanser -Foul Odor after Cleansing No -Anesthetic Used 4% Lidocaine Solution #12 Left superior calf -Current Size (cm) - Length 1 -Current Size (cm) - Width 0.7 -Current Size (cm) - Depth 0.1 -Total Square Cm 0.7 -Photo Taken No -Exudate Amt None Present -Wound Margin Distinct, Outline Attached -Granulation Amt Medium (34-66%) -Granulation Quality [place] -Necrosis Amt Small (1-33%) -Necrotic Tissue Type Adherent Slough -Structure Exposed N/A -Texture (Martha-wound Skin Appearance) Scarring -Moisture (Martha-wound Skin Appearance No Abnormality ) -Color (Martha-wound Skin Appearance) No Abnormality -Temperature (Martha-wound Skin No Abnormality Appearance) (Pt Warm) -Tenderness on Palpation (Martha-wound No Skin Appearance) -Ulcer Cleansing Wound Cleanser -Foul Odor after Cleansing No -Anesthetic Used 5% Lidocaine Gel #10- LT ANTERIOR THIGH -Current Size (cm) - Length 0 -Current Size (cm) - Width 0 -Current Size (cm) - Depth 0 -Total Square Cm 0 #8- LT POST CALF CLUSTER -Current Size (cm) - Length 0 -Current Size (cm) - Width 0 -Current Size (cm) - Depth 0 -Total Square Cm 0 -Photo Taken Yes -Exudate Amt None Present -Wound Margin Flat & Intact -Granulation Amt Large (67-100%) -Granulation Quality [place] -Necrosis Amt None Present (0 %) -Structure Exposed N/A -Texture (Martha-wound Skin Appearance) Scarring -Moisture (Martha-wound Skin Appearance No Abnormality ) -Color (Martha-wound Skin Appearance) No Abnormality -Temperature (Martha-wound Skin No Abnormality Appearance) (Pt Warm) -Tenderness on Palpation (Martha-wound No Skin Appearance) -Ulcer Cleansing Wound Cleanser -Foul Odor after Cleansing No #1 RIGHT POSTERIOR CALF superior -Current Size (cm) - Length 0 -Current Size (cm) - Width 0 -Current Size (cm) - Depth 0 -Total Square Cm 0 -Photo Taken Yes -Granulation Amt Large (67-100%) -Granulation Quality [place] -Necrosis Amt None Present (0 %) -Texture (Martha-wound Skin Appearance) Scarring -Moisture (Martha-wound Skin Appearance Dry/Scaly ) -Color (Martha-wound Skin Appearance) Hemosiderin Staining -Ulcer Cleansing Wound Cleanser -Foul Odor after Cleansing No WC - Nurse 2 - General Ulcer CM Notes Start: 06/22/19 10:09 Freq: Status: Active Protocol: Activity Type Activity Date Activity User E-Sign Co-Sign Detail Recorded Client Recorded Date Recorded By Document 06/22/19 10:46 MW [id number] 06/22/19 11:15 MW 06/22/19 10:46 Wound Center Nurse 2 [Procedure/Treatment] #16 R Upper Med thigh Cluster -Time 10:51 -Correct Patient Yes -Correct Side, Site, Position Yes -Correct Procedure Yes -Procedure Performed Yes -Type of Procedure Debridement -Clinical Debridement Selective -Post Debridement Size (cm) - Length 4.0 -Post Debridement Size (cm) - Width 8.0 -Post Debridement Size (cm) - Depth 0.1 -Total Square Cm 32.00 -Wound/Ulcer Outcome Not Healed -Ulcer Cleansing Rinsed/ Irrigated with Saline -Foul Odor after Cleansing No -Bioengineered Tissue No -Bleeding Controlled with Pressure -Offloading No -Treatment Response Procedure Tolerated Well #15 R Lat Knee -Time 10:52 -Correct Patient Yes -Correct Side, Site, Position Yes -Correct Procedure Yes -Procedure Performed Yes -Type of Procedure Debridement -Clinical Debridement Subcutaneous -Post Debridement Size (cm) - Length 1.4 -Post Debridement Size (cm) - Width 5.0 -Post Debridement Size (cm) - Depth 0.2 -Total Square Cm 7.00 -Wound/Ulcer Outcome Not Healed -Ulcer Cleansing Rinsed/ Irrigated with Saline -Foul Odor after Cleansing No -Bioengineered Tissue No -Bleeding Controlled with Pressure -Offloading No -Treatment Response Procedure Tolerated Well #14 R MedLE cluster -Time 10:52 -Correct Patient Yes -Correct Side, Site, Position Yes -Correct Procedure Yes -Procedure Performed Yes -Type of Procedure Debridement -Clinical Debridement Selective -Post Debridement Size (cm) - Length 8.0 -Post Debridement Size (cm) - Width 15.0 -Post Debridement Size (cm) - Depth 0.1 -Total Square Cm 120.00 -Wound/Ulcer Outcome Not Healed -Ulcer Cleansing Rinsed/ Irrigated with Saline -Foul Odor after Cleansing No -Bioengineered Tissue No -Bleeding Controlled with Pressure -Offloading No -Treatment Response Procedure Tolerated Well #13 R Lat/Post Cluster -Time 10:52 -Correct Patient Yes -Correct Side, Site, Position Yes -Correct Procedure Yes -Procedure Performed Yes -Type of Procedure Debridement -Clinical Debridement Subcutaneous -Post Debridement Size (cm) - Length 24.0 -Post Debridement Size (cm) - Width 19.0 -Post Debridement Size (cm) - Depth 0.1 -Total Square Cm 456.00 -Wound/Ulcer Outcome Not Healed -Ulcer Cleansing Rinsed/ Irrigated with Saline -Foul Odor after Cleansing No -Bioengineered Tissue No -Bleeding Controlled with Pressure -Offloading No -Treatment Response Procedure Tolerated Well #12 Left superior calf -Time 10:52 -Correct Patient Yes -Correct Side, Site, Position Yes -Correct Procedure Yes -Procedure Performed Yes -Type of Procedure Debridement -Clinical Debridement Subcutaneous -Post Debridement Size (cm) - Length 2.0 -Post Debridement Size (cm) - Width 0.6 -Post Debridement Size (cm) - Depth 0.1 -Total Square Cm 1.20 -Wound/Ulcer Outcome Not Healed -Ulcer Cleansing Rinsed/ Irrigated with Saline -Bioengineered Tissue No -Offloading No -Treatment Response Procedure Tolerated Well #8- LT POST CALF CLUSTER -Time 10:53 -Correct Patient Yes -Correct Side, Site, Position Yes -Correct Procedure Yes -Procedure Performed No -Post Debridement Size (cm) - Length 0 -Post Debridement Size (cm) - Width 0 -Post Debridement Size (cm) - Depth 0 -Total Square Cm 0 -Wound/Ulcer Outcome Healed- Epithelialized [See Physician Procedure note for Specifics] Pain Scale: 0-10 Numeric [Pain] -Is Patient Pain Free? Yes Musculoskeletal: No Muscle Wasting Neurological: Cranial nerves II-XII grossly intact Psych/Mental Status: Normal Affect Debridement Note Post-Debridement Measurements/Treatment WC - Nurse 2 - General Ulcer CM Notes Start: 06/22/19 10:09 Freq: Status: Active Protocol: Activity Type Activity Date Activity User E-Sign Co-Sign Detail Recorded Client Recorded Date Recorded By Document 06/22/19 10:46 MW [id number] 06/22/19 11:15 MW 06/22/19 10:46 Wound Center Nurse 2 #16 R Upper Med thigh Cluster -Time 10:51 -Correct Patient Yes -Correct Side, Site, Position Yes -Correct Procedure Yes -Procedure Performed Yes -Type of Procedure Debridement -Clinical Debridement Selective -Post Debridement Size (cm) - Length 4.0 -Post Debridement Size (cm) - Width 8.0 -Post Debridement Size (cm) - Depth 0.1 -Total Square Cm 32.00 -Wound/Ulcer Outcome Not Healed -Ulcer Cleansing Rinsed/ Irrigated with Saline -Foul Odor after Cleansing No -Bioengineered Tissue No -Bleeding Controlled with Pressure -Offloading No -Treatment Response Procedure Tolerated Well #15 R Lat Knee -Time 10:52 -Correct Patient Yes -Correct Side, Site, Position Yes -Correct Procedure Yes -Procedure Performed Yes -Type of Procedure Debridement -Clinical Debridement Subcutaneous -Post Debridement Size (cm) - Length 1.4 -Post Debridement Size (cm) - Width 5.0 -Post Debridement Size (cm) - Depth 0.2 -Total Square Cm 7.00 -Wound/Ulcer Outcome Not Healed -Ulcer Cleansing Rinsed/ Irrigated with Saline -Foul Odor after Cleansing No -Bioengineered Tissue No -Bleeding Controlled with Pressure -Offloading No -Treatment Response Procedure Tolerated Well #14 R MedLE cluster -Time 10:52 -Correct Patient Yes -Correct Side, Site, Position Yes -Correct Procedure Yes -Procedure Performed Yes -Type of Procedure Debridement -Clinical Debridement Selective -Post Debridement Size (cm) - Length 8.0 -Post Debridement Size (cm) - Width 15.0 -Post Debridement Size (cm) - Depth 0.1 -Total Square Cm 120.00 -Wound/Ulcer Outcome Not Healed -Ulcer Cleansing Rinsed/ Irrigated with Saline -Foul Odor after Cleansing No -Bioengineered Tissue No -Bleeding Controlled with Pressure -Offloading No -Treatment Response Procedure Tolerated Well #13 R Lat/Post Cluster -Time 10:52 -Correct Patient Yes -Correct Side, Site, Position Yes -Correct Procedure Yes -Procedure Performed Yes -Type of Procedure Debridement -Clinical Debridement Subcutaneous -Post Debridement Size (cm) - Length 24.0 -Post Debridement Size (cm) - Width 19.0 -Post Debridement Size (cm) - Depth 0.1 -Total Square Cm 456.00 -Wound/Ulcer Outcome Not Healed -Ulcer Cleansing Rinsed/ Irrigated with Saline -Foul Odor after Cleansing No -Bioengineered Tissue No -Bleeding Controlled with Pressure -Offloading No -Treatment Response Procedure Tolerated Well #12 Left superior calf -Time 10:52 -Correct Patient Yes -Correct Side, Site, Position Yes -Correct Procedure Yes -Procedure Performed Yes -Type of Procedure Debridement -Clinical Debridement Subcutaneous -Post Debridement Size (cm) - Length 2.0 -Post Debridement Size (cm) - Width 0.6 -Post Debridement Size (cm) - Depth 0.1 -Total Square Cm 1.20 -Wound/Ulcer Outcome Not Healed -Ulcer Cleansing Rinsed/ Irrigated with Saline -Bioengineered Tissue No -Offloading No -Treatment Response Procedure Tolerated Well #8- LT POST CALF CLUSTER -Time 10:53 -Correct Patient Yes -Correct Side, Site, Position Yes -Correct Procedure Yes -Procedure Performed No -Post Debridement Size (cm) - Length 0 -Post Debridement Size (cm) - Width 0 -Post Debridement Size (cm) - Depth 0 -Total Square Cm 0 -Wound/Ulcer Outcome Healed- Epithelialized Pain Scale: 0-10 Numeric Is Patient Pain Free? Yes Wound debrided: Right thigh (medial Type of Debridement: Selective debridement Anesthesia Used: 4% Lidocaine Solution Depth: Down to and including healthy tissue Percentage of wound debrided: 100 Instrument Used: 3mm curette Tissue Removed: Slough and devitalized tissue Severity: Limited To Skin Breakdown Amount of bleeding with debridement: Mild Bleeding Controlled with: Pressure Patient tolerated procedure well - Additional Wound Wound debrided: Right medial lower extremity/calf Type of Debridement: Selective debridement Anesthesia Used: 4% Lidocaine Solution Depth: Down to and including healthy tissue Percentage of wound debrided: 100 Instrument Used: 3mm curette Tissue Removed: -Slough and devitalized tissue Severity: Fat Layer Exposed Amount of bleeding with debridement: Mild Bleeding Controlled with: Pressure Patient tolerated procedure: Patient tolerated procedure well - Additional Wound Wound debrided: Right posterior/calf cluster Type of Debridement: Excisional debridement Anesthesia Used: 4% Lidocaine Solution Depth: Down to and including healthy tissue, in the subcutaneous layer Percentage of wound debrided: 100 Instrument Used: 7mm curette Tissue Removed: Slough and devitalized tissue Severity: Fat Layer Exposed Amount of bleeding with debridement: Mild Bleeding Controlled with: Pressure Patient tolerated procedure: Patient tolerated procedure well - Additional Wound Wound debrided: Right knee Type of Debridement: Excisional debridement Anesthesia Used: 4% Lidocaine Solution Depth: Down to and including healthy tissue, in the subcutaneous layer Percentage of wound debrided: 100 Instrument Used: 7mm curette, #15 blade, Forceps Tissue Removed: Slough and devitalized tissue Severity: Fat Layer Exposed Amount of bleeding with debridement: Mild Bleeding Controlled with: Pressure Patient tolerated procedure: Patient tolerated procedure well - Additional Wound Wound debrided: Left lower extremity Type of Debridement: Excisional debridement Anesthesia Used: 4% Lidocaine Solution Depth: Down to and including healthy tissue, in the subcutaneous layer Percentage of wound debrided: 100 Instrument Used: 3mm curette Tissue Removed: Slough and devitalized tissue Severity: Fat Layer Exposed Amount of bleeding with debridement: Mild Bleeding Controlled with: Pressure Patient tolerated procedure: Patient tolerated procedure well Assessment/Plan Active Problems Lymphedema (Chronic) Secondary to chronic venous insufficieny of Bilateral Lower Extremity. Ulcer of right lower extremity with fat layer exposed (Chronic) Bilateral lower extremity edema (Chronic) Ulcer of left lower extremity with fat layer exposed (Chronic) Assessment: Same as above. Plan: Debridement done as documented above. Procedure was well-tolerated. The right lower extremity ulcerations as stated above. Santyl to the right lateral knee ulcer. Continue Aquacel with ABD over top to all ulcers. Change 4-5 times daily depending on drainage. Patient continues to require large amounts of wound care supply due to size as documented above of ulcer and significant drainage. Also advised that she elevate her lower extremity when seated and in bed. Increased protein intake recommended. Exercise as tolerated and avoid idle standing. She expressed understanding. Daily isreal wraps for edema management for now. Did not tolerate 3M wraps and Isreal wrap not sufficiently managing edema. Compliance with lymphedema pump strongly recommended. Continue antibiotics per current management. Due to poor compliance and inability to adequately care for herself prognosis for wound healing is not very encouraging. She remains complex care pending further resolution/consistency of home care situation. Her questions were answered and she was advised to call with any further questions or concerns. Follow-up in 2 week. This note was generated with [employer] dictation software. It may contain incorrect words, spelling, and punctuation that were not noted in checking the note before signing.
[2019-06-29 10:50] VITALS: BP 137/70; PULSE 52; RESP 18; BMI 71.4
--- NOTE | 2019-06-29 11:39 | PN.PCM_ITS ---
(1) Bilateral lower extremity edema Status: Chronic Current Visit: Yes Code(s): R60.0 - Localized edema (2) Lymphedema Status: Chronic Current Visit: Yes Code(s): I89.0 - Lymphedema, not elsewhere classified Comment: Secondary to chronic venous insufficieny of Bilateral Lower Extremity. (3) Ulcer of left lower extremity with fat layer exposed Status: Chronic Current Visit: Yes Code(s): L97.922 - Non-pressure chronic ulcer of unspecified part of left lower leg with fat layer exposed (4) Ulcer of right lower extremity with fat layer exposed Status: Chronic Current Visit: Yes Code(s): L97.912 - Non-pressure chronic ulcer of unspecified part of right lower leg with fat layer exposed Type of Wound Date of Service: 06/29/19 Chief Complaint: Right lower extremity ulcers. History of Wound: Ms. Molina is a 48-year-old who was referred to the wound center by her primary care physician due to right lower extremity ulcers. Per patient, started out with redness pain and swelling for which she was managed for cellulitis. Subsequently developed ulcerations in her calf and enciso. She feels well other at this time and denies chills, fever, nausea, vomitting or change in her bowel habit. Progress of Wound: No new concerns at this time. Improving ulcers. - Physical Exam Vital Signs Temp Pulse Resp BP 96.8 F L 52 L 18 137/70 H 06/22/19 10:09 06/29/19 10:50 06/29/19 10:50 06/29/19 10:50 General: Alert, Oriented x3, Cooperative, No apparent distress HEENT: Atraumatic, Normocephalic Oral: Moist Mucosa Neck: Supple Lungs: Normal air movement Abdomen: Non Tender, Obese Extremities: No cyanosis, Edema Skin: Ulcer/ Wound Wound Measurements and Assessment WC - Nurse 1 - General Ulcer Measurement Start: 06/22/19 10:09 Freq: Status: Active Protocol: Activity Type Activity Date Activity User E-Sign Co-Sign Detail Recorded Client Recorded Date Recorded By Document 06/29/19 10:50 BS [id number] 06/29/19 11:08 BS 06/29/19 10:50 Wound Center Nurse 1 [Ulcer Assessment] #16 R Upper Med thigh Cluster -Combined with other wound No -Necrotic Tissue Type Eschar -Moisture (Martha-wound Skin Appearance Assessed,Dry/ ) Scaly -Temperature (Martha-wound Skin No Abnormality Appearance) (Pt Warm) -Tenderness on Palpation (Martha-wound No Skin Appearance) -Ulcer Cleansing Rinsed/ Irrigated with Saline -Foul Odor after Cleansing No -Anesthetic Used 5% Lidocaine Gel #15 R Lat Knee -Combined with other wound No -Current Size (cm) - Length 4.0 -Current Size (cm) - Width 5.3 -Current Size (cm) - Depth 0.3 -Total Square Cm 21.20 -Photo Taken No -Necrotic Tissue Type Eschar -Moisture (Martha-wound Skin Appearance Assessed,Dry/ ) Scaly -Temperature (Martha-wound Skin No Abnormality Appearance) (Pt Warm) -Tenderness on Palpation (Martha-wound No Skin Appearance) -Ulcer Cleansing Rinsed/ Irrigated with Saline -Anesthetic Used 5% Lidocaine Gel #14 R MedLE cluster -Combined with other wound No -Current Size (cm) - Length 2.0 -Current Size (cm) - Width 2.0 -Current Size (cm) - Depth 0.1 -Total Square Cm 4.00 -Temperature (Martha-wound Skin No Abnormality Appearance) (Pt Warm) -Tenderness on Palpation (Martha-wound No Skin Appearance) -Ulcer Cleansing Rinsed/ Irrigated with Saline -Foul Odor after Cleansing No -Anesthetic Used 5% Lidocaine Gel #13 R Lat cluster -Combined with other wound No -Current Size (cm) - Length 1.3 -Current Size (cm) - Width 4.6 -Current Size (cm) - Depth 0.1 -Total Square Cm 5.98 -Temperature (Martha-wound Skin No Abnormality Appearance) (Pt Warm) -Tenderness on Palpation (Martha-wound No Skin Appearance) -Ulcer Cleansing Rinsed/ Irrigated with Saline -Foul Odor after Cleansing No -Anesthetic Used 5% Lidocaine Gel #12 Left superior calf -Combined with other wound No -Current Size (cm) - Length 0.8 -Current Size (cm) - Width 1.8 -Current Size (cm) - Depth 0.1 -Total Square Cm 1.44 -Tunneling No -Undermining/Tunneling No -Moisture (Martha-wound Skin Appearance Assessed,Dry/ ) Scaly -Temperature (Martha-wound Skin No Abnormality Appearance) (Pt Warm) -Tenderness on Palpation (Martha-wound No Skin Appearance) -Ulcer Cleansing Rinsed/ Irrigated with Saline -Foul Odor after Cleansing No -Anesthetic Used 5% Lidocaine Gel WC - Nurse 2 - General Ulcer CM Notes Start: 06/22/19 10:09 Freq: Status: Active Protocol: Activity Type Activity Date Activity User E-Sign Co-Sign Detail Recorded Client Recorded Date Recorded By Document 06/29/19 11:19 MW [id number] 06/29/19 11:33 MW 06/29/19 11:19 Wound Center Nurse 2 [Procedure/Treatment] #16 right posterior cluster -Time 11:24 -Correct Patient Yes -Correct Side, Site, Position Yes -Correct Procedure Yes -Procedure Performed Yes -Type of Procedure Debridement -Clinical Debridement Subcutaneous -Post Debridement Size (cm) - Length 1.5 -Post Debridement Size (cm) - Width 2.0 -Post Debridement Size (cm) - Depth 0.1 -Total Square Cm 3.00 -Wound/Ulcer Outcome Not Healed -Ulcer Cleansing Rinsed/ Irrigated with Saline -Foul Odor after Cleansing No -Bioengineered Tissue No -Bleeding Controlled with Pressure -Treatment Response Procedure Tolerated Well #15 R Lat Knee -Time 11:22 -Correct Patient Yes -Correct Side, Site, Position Yes -Correct Procedure Yes -Procedure Performed Yes -Type of Procedure Debridement -Clinical Debridement Subcutaneous -Post Debridement Size (cm) - Length 1.1 -Post Debridement Size (cm) - Width 4.3 -Post Debridement Size (cm) - Depth 0.2 -Total Square Cm 4.73 -Wound/Ulcer Outcome Not Healed -Ulcer Cleansing Rinsed/ Irrigated with Saline -Foul Odor after Cleansing No -Bioengineered Tissue No -Bleeding Controlled with Pressure -Offloading No -Treatment Response Procedure Tolerated Well #14 R MedLE cluster -Time 11:25 -Correct Patient Yes -Correct Side, Site, Position Yes -Correct Procedure Yes -Procedure Performed No -Post Debridement Size (cm) - Length 0 -Post Debridement Size (cm) - Width 0 -Post Debridement Size (cm) - Depth 0 -Total Square Cm 0 -Wound/Ulcer Outcome Healed- Epithelialized #13 R Lat cluster -Time 11:25 -Correct Patient Yes -Correct Side, Site, Position Yes -Correct Procedure Yes -Procedure Performed Yes -Type of Procedure Debridement -Clinical Debridement Subcutaneous -Post Debridement Size (cm) - Length 6.0 -Post Debridement Size (cm) - Width 7.0 -Post Debridement Size (cm) - Depth 0.1 -Total Square Cm 42.00 -Wound/Ulcer Outcome Not Healed -Ulcer Cleansing Rinsed/ Irrigated with Saline -Foul Odor after Cleansing No -Bioengineered Tissue No -Bleeding Controlled with Pressure -Offloading No -Treatment Response Procedure Tolerated Well #12 Left superior calf -Time 11:25 -Correct Patient Yes -Correct Side, Site, Position Yes -Correct Procedure Yes -Procedure Performed Yes -Type of Procedure Debridement -Clinical Debridement Subcutaneous -Post Debridement Size (cm) - Length 1.0 -Post Debridement Size (cm) - Width 0.5 -Post Debridement Size (cm) - Depth 0.1 -Total Square Cm 0.50 -Wound/Ulcer Outcome Not Healed -Ulcer Cleansing Rinsed/ Irrigated with Saline -Foul Odor after Cleansing No -Bioengineered Tissue No -Bleeding Controlled with Pressure -Offloading No -Treatment Response Procedure Tolerated Well [See Physician Procedure note for Specifics] Pain Scale: 0-10 Numeric [Pain] -Is Patient Pain Free? Yes Musculoskeletal: No Muscle Wasting Neurological: Cranial nerves II-XII grossly intact Psych/Mental Status: Normal Affect Debridement Note Post-Debridement Measurements/Treatment WC - Nurse 2 - General Ulcer CM Notes Start: 06/22/19 10:09 Freq: Status: Active Protocol: Activity Type Activity Date Activity User E-Sign Co-Sign Detail Recorded Client Recorded Date Recorded By Document 06/22/19 10:46 MW [id number] 06/22/19 11:15 MW Document 06/29/19 11:19 MW [id number] 06/29/19 11:33 MW 06/22/19 06/29/19 10:46 11:19 Wound Center Nurse 2 #16 right posterior cluster -Time 11:24 -Correct Patient Yes -Correct Side, Site, Position Yes -Correct Procedure Yes -Procedure Performed Yes -Type of Procedure Debridement -Clinical Debridement Subcutaneous -Post Debridement Size (cm) - Length 1.5 -Post Debridement Size (cm) - Width 2.0 -Post Debridement Size (cm) - Depth 0.1 -Total Square Cm 3.00 -Wound/Ulcer Outcome Not Healed -Ulcer Cleansing Rinsed/ Irrigated with Saline -Foul Odor after Cleansing No -Bioengineered Tissue No -Bleeding Controlled with Pressure -Treatment Response Procedure Tolerated Well #16 R Upper Med thigh Cluster -Time 10:51 -Correct Patient Yes -Correct Side, Site, Position Yes -Correct Procedure Yes -Procedure Performed Yes -Type of Procedure Debridement -Clinical Debridement Selective -Post Debridement Size (cm) - Length 4.0 -Post Debridement Size (cm) - Width 8.0 -Post Debridement Size (cm) - Depth 0.1 -Total Square Cm 32.00 -Wound/Ulcer Outcome Not Healed -Ulcer Cleansing Rinsed/ Irrigated with Saline -Foul Odor after Cleansing No -Bioengineered Tissue No -Bleeding Controlled with Pressure -Offloading No -Treatment Response Procedure Tolerated Well #15 R Lat Knee -Time 10:52 11:22 -Correct Patient Yes Yes -Correct Side, Site, Position Yes Yes -Correct Procedure Yes Yes -Procedure Performed Yes Yes -Type of Procedure Debridement Debridement -Clinical Debridement Subcutaneous Subcutaneous -Post Debridement Size (cm) - Length 1.4 1.1 -Post Debridement Size (cm) - Width 5.0 4.3 -Post Debridement Size (cm) - Depth 0.2 0.2 -Total Square Cm 7.00 4.73 -Wound/Ulcer Outcome Not Healed Not Healed -Ulcer Cleansing Rinsed/ Rinsed/ Irrigated with Irrigated with Saline Saline -Foul Odor after Cleansing No No -Bioengineered Tissue No No -Bleeding Controlled with Pressure Pressure -Offloading No No -Treatment Response Procedure Procedure Tolerated Well Tolerated Well #14 R MedLE cluster -Time 10:52 11:25 -Correct Patient Yes Yes -Correct Side, Site, Position Yes Yes -Correct Procedure Yes Yes -Procedure Performed Yes No -Type of Procedure Debridement -Clinical Debridement Selective -Post Debridement Size (cm) - Length 8.0 0 -Post Debridement Size (cm) - Width 15.0 0 -Post Debridement Size (cm) - Depth 0.1 0 -Total Square Cm 120.00 0 -Wound/Ulcer Outcome Not Healed Healed- Epithelialized -Ulcer Cleansing Rinsed/ Irrigated with Saline -Foul Odor after Cleansing No -Bioengineered Tissue No -Bleeding Controlled with Pressure -Offloading No -Treatment Response Procedure Tolerated Well #13 R Lat cluster -Time 10:52 11:25 -Correct Patient Yes Yes -Correct Side, Site, Position Yes Yes -Correct Procedure Yes Yes -Procedure Performed Yes Yes -Type of Procedure Debridement Debridement -Clinical Debridement Subcutaneous Subcutaneous -Post Debridement Size (cm) - Length 24.0 6.0 -Post Debridement Size (cm) - Width 19.0 7.0 -Post Debridement Size (cm) - Depth 0.1 0.1 -Total Square Cm 456.00 42.00 -Wound/Ulcer Outcome Not Healed Not Healed -Ulcer Cleansing Rinsed/ Rinsed/ Irrigated with Irrigated with Saline Saline -Foul Odor after Cleansing No No -Bioengineered Tissue No No -Bleeding Controlled with Pressure Pressure -Offloading No No -Treatment Response Procedure Procedure Tolerated Well Tolerated Well #12 Left superior calf -Time 10:52 11:25 -Correct Patient Yes Yes -Correct Side, Site, Position Yes Yes -Correct Procedure Yes Yes -Procedure Performed Yes Yes -Type of Procedure Debridement Debridement -Clinical Debridement Subcutaneous Subcutaneous -Post Debridement Size (cm) - Length 2.0 1.0 -Post Debridement Size (cm) - Width 0.6 0.5 -Post Debridement Size (cm) - Depth 0.1 0.1 -Total Square Cm 1.20 0.50 -Wound/Ulcer Outcome Not Healed Not Healed -Ulcer Cleansing Rinsed/ Rinsed/ Irrigated with Irrigated with Saline Saline -Foul Odor after Cleansing No -Bioengineered Tissue No No -Bleeding Controlled with Pressure -Offloading No No -Treatment Response Procedure Procedure Tolerated Well Tolerated Well #8- LT POST CALF CLUSTER -Time 10:53 -Correct Patient Yes -Correct Side, Site, Position Yes -Correct Procedure Yes -Procedure Performed No -Post Debridement Size (cm) - Length 0 -Post Debridement Size (cm) - Width 0 -Post Debridement Size (cm) - Depth 0 -Total Square Cm 0 -Wound/Ulcer Outcome Healed- Epithelialized Pain Scale: 0-10 Numeric Is Patient Pain Free? Yes Yes Wound debrided: Right Leg ( lateral ) Type of Debridement: Excisional debridement Anesthesia Used: 5% Lidocaine Gel Depth: Down to and including healthy tissue, in the subcutaneous layer Percentage of wound debrided: 100 Instrument Used: 7mm curette Tissue Removed: Slough and devitalized tissue Severity: Fat Layer Exposed Amount of bleeding with debridement: Mild Bleeding Controlled with: Pressure Patient tolerated procedure well - Additional Wound Wound debrided: Right Leg ( Posterior ) Type of Debridement: Excisional debridement Anesthesia Used: 5% Lidocaine Gel Depth: in the subcutaneous layer Percentage of wound debrided: 100 Instrument Used: 7mm curette Tissue Removed: Slough and devitalized tissue Severity: Fat Layer Exposed Amount of bleeding with debridement: Mild Bleeding Controlled with: Pressure Patient tolerated procedure: Patient tolerated procedure well - Additional Wound Wound debrided: Right lateral Knee Type of Debridement: Excisional debridement Anesthesia Used: 4% Lidocaine Solution Depth: Down to and including healthy tissue, in the subcutaneous layer Percentage of wound debrided: 100 Instrument Used: 7mm curette Tissue Removed: Slough and devitalized tissue Severity: Fat Layer Exposed Amount of bleeding with debridement: Mild Bleeding Controlled with: Pressure Patient tolerated procedure: Patient tolerated procedure well - Additional Wound Wound debrided: Left Postreior leg Type of Debridement: Excisional debridement Anesthesia Used: 5% Lidocaine Gel Depth: Down to and including healthy tissue, in the subcutaneous layer Percentage of wound debrided: 100 Instrument Used: 3mm curette Tissue Removed: slough and devitalized tissue Severity: Fat Layer Exposed Amount of bleeding with debridement: Mild Bleeding Controlled with: Pressure Patient tolerated procedure: Patient tolerated procedure well Assessment/Plan Active Problems Lymphedema (Chronic) Secondary to chronic venous insufficieny of Bilateral Lower Extremity. Ulcer of right lower extremity with fat layer exposed (Chronic) Bilateral lower extremity edema (Chronic) Ulcer of left lower extremity with fat layer exposed (Chronic) Assessment: Same as above. Plan: Debridement done as documented above. Procedure was well-tolerated. Improving ulcers. Continue Santyl to the right lateral knee ulcer. Continue Aquacel with ABD over top to all ulcers. Change 4-5 times daily depending on drainage. Patient continues to require large amounts of wound care supply due to size as documented above of ulcer and significant drainage. Also advised that she elevate her lower extremity when seated and in bed. Increased protein intake recommended. Exercise as tolerated and avoid idle standing. She expressed understanding. Daily isreal wraps for edema management for now. Did not tolerate 3M wraps and Isreal wrap not sufficiently managing edema. Compliance with lymphedema pump strongly recommended. Continue antibiotics per current management. Due to poor compliance and inability to adequately care for herself prognosis for wound healing is not very encouraging. She remains complex care pending further resolution/consistency of home care situation. Her questions were answered and she was advised to call with any further questions or concerns. Follow-up in 1 week. This note was generated with [employer] software. It may contain incorrect words, spelling, and punctuation that were not noted in checking the note before signing.
== END 2019-07-03 23:59 ==
LOC: WC 10:30
PROVIDERS: Family Provider Family Medicine; PCP Family Medicine; Visit Provider Internal Medicine
DX: I89.0 Lymphedema, not elsewhere classified (principal); R60.0 Localized edema; L03.115 Cellulitis of right lower limb; L97.111 Non-pressure chronic ulcer of right thigh limited to breakdown of skin; L97.212 Non-pressure chronic ulcer of right calf with fat layer exposed; L97.812 Non-pressure chronic ulcer of other part of right lower leg with fat layer exposed; L97.222 Non-pressure chronic ulcer of left calf with fat layer exposed
CPT/HCPCS: 11042; 11045; 97597; 97598

== ENCOUNTER 2019-08-03 10:00 | Outpatient (RCR) | payer MEDICARE, MEDICAID, SELFPAY ==
[2019-07-04 00:37] VITALS: BP 137/70; PULSE 52; RESP 18; TEMP 36
[2019-07-13 09:05] VITALS: BP 130/73; PULSE 66; RESP 18; TEMP 36.1; BMI 71.4
--- NOTE | 2019-07-13 09:44 | PN.PCM_ITS ---
(1) Ulcer of left lower extremity with fat layer exposed Status: Chronic Current Visit: Yes Code(s): L97.922 - Non-pressure chronic ulcer of unspecified part of left lower leg with fat layer exposed (2) Ulcer of right lower extremity with fat layer exposed Status: Chronic Current Visit: Yes Code(s): L97.912 - Non-pressure chronic ulcer of unspecified part of right lower leg with fat layer exposed (3) Lymphedema Status: Chronic Current Visit: Yes Code(s): I89.0 - Lymphedema, not elsewhere classified Comment: Secondary to chronic venous insufficieny of Bilateral Lower Extremity. Type of Wound Date of Service: 07/13/19 Chief Complaint: Right lower extremity ulcers. History of Wound: Ms. Molina is a 48-year-old who was referred to the wound center by her primary care physician due to right lower extremity ulcers. Per patient, started out with redness pain and swelling for which she was managed for cellulitis. Subsequently developed ulcerations in her calf and enciso. She feels well other at this time and denies chills, fever, nausea, vomitting or change in her bowel habit. Progress of Wound: Left lower extremity ulcer is healed. Right leg ulcers with minimal area left. Stable R lateral Knee. - Physical Exam Vital Signs Temp Pulse Resp BP 97 F L 66 18 130/73 H 07/13/19 09:05 07/13/19 09:05 07/13/19 09:05 07/13/19 09:05 General: Alert, Oriented x3, Cooperative, No apparent distress HEENT: Atraumatic, Normocephalic Oral: Moist Mucosa Neck: Supple Lungs: Normal air movement Extremities: No cyanosis, Edema Skin: Ulcer/ Wound Wound Measurements and Assessment WC - Nurse 1 - General Ulcer Measurement Start: 07/13/19 09:05 Freq: Status: Active Protocol: Activity Type Activity Date Activity User E-Sign Co-Sign Detail Recorded Client Recorded Date Recorded By Document 07/13/19 09:05 MYRA [id number] 07/13/19 09:18 RB 07/13/19 09:05 Wound Center Nurse 1 [Ulcer Assessment] #16 right posterior cluster -Current Size (cm) - Length 1.3 -Current Size (cm) - Width 1 -Current Size (cm) - Depth 0.1 -Total Square Cm 1.3 -Photo Taken No -Exudate Amt Small -Exudate Type Serosanguineous -Wound Margin Indistinct, Non -Visible -Granulation Amt Medium (34-66%) -Granulation Quality [place],Red -Necrosis Amt Medium (34-66%) -Necrotic Tissue Type Adherent Slough -Texture (Martha-wound Skin Appearance) Scarring -Moisture (Martha-wound Skin Appearance Dry/Scaly ) -Color (Martha-wound Skin Appearance) Hemosiderin Staining,Rubor -Temperature (Martha-wound Skin No Abnormality Appearance) (Pt Warm) -Tenderness on Palpation (Martha-wound No Skin Appearance) -Ulcer Cleansing Wound Cleanser -Foul Odor after Cleansing No -Anesthetic Used 4% Lidocaine Solution #15 R Lat Knee -Current Size (cm) - Length 1.3 -Current Size (cm) - Width 4 -Current Size (cm) - Depth 0.2 -Total Square Cm 5.2 -Photo Taken No -Exudate Amt Small -Exudate Type Serosanguineous -Wound Margin Distinct, Outline Attached -Granulation Amt None Present (0 %) -Necrosis Amt Large (67-100%) -Necrotic Tissue Type Adherent Slough -Structure Exposed N/A -Texture (Martha-wound Skin Appearance) Scarring -Moisture (Martha-wound Skin Appearance Dry/Scaly ) -Color (Martha-wound Skin Appearance) Hemosiderin Staining,Rubor -Temperature (Martha-wound Skin No Abnormality Appearance) (Pt Warm) -Tenderness on Palpation (Martha-wound No Skin Appearance) -Ulcer Cleansing Wound Cleanser -Foul Odor after Cleansing No -Anesthetic Used 4% Lidocaine Solution #13 R Lat cluster -Current Size (cm) - Length 0.1 -Current Size (cm) - Width 0.1 -Current Size (cm) - Depth 0.1 -Total Square Cm 0.01 -Photo Taken No -Exudate Amt Small -Exudate Type Serosanguineous -Wound Margin Indistinct, Non -Visible -Granulation Amt Large (67-100%) -Granulation Quality [place] -Necrosis Amt Small (1-33%) -Necrotic Tissue Type Adherent Slough -Structure Exposed N/A -Texture (Martha-wound Skin Appearance) Localized Edema ,Scarring -Moisture (Martha-wound Skin Appearance Dry/Scaly ) -Color (Martha-wound Skin Appearance) Hemosiderin Staining,Rubor -Temperature (Martha-wound Skin No Abnormality Appearance) (Pt Warm) -Tenderness on Palpation (Martha-wound No Skin Appearance) -Ulcer Cleansing Wound Cleanser -Anesthetic Used 4% Lidocaine Solution #12 Left superior calf -Current Size (cm) - Length 0 -Current Size (cm) - Width 0 -Current Size (cm) - Depth 0 -Total Square Cm 0 -Photo Taken Yes -Exudate Amt None Present -Wound Margin Flat & Intact -Granulation Amt Large (67-100%) -Granulation Quality [place] -Necrosis Amt None Present (0 %) -Structure Exposed N/A -Texture (Martha-wound Skin Appearance) Scarring -Moisture (Martha-wound Skin Appearance Dry/Scaly ) -Color (Martha-wound Skin Appearance) Hemosiderin Staining -Temperature (Martha-wound Skin No Abnormality Appearance) (Pt Warm) -Tenderness on Palpation (Martha-wound No Skin Appearance) -Ulcer Cleansing Rinsed/ Irrigated with Saline -Foul Odor after Cleansing No [Edema Assessment] -Right Calf (cm) 77.5 -Right Ankle (cm) 35.5 -Left Calf (cm) 65 -Left Ankle (cm) 32 WC - Nurse 2 - General Ulcer CM Notes Start: 07/13/19 09:05 Freq: Status: Active Protocol: Activity Type Activity Date Activity User E-Sign Co-Sign Detail Recorded Client Recorded Date Recorded By Document 07/13/19 09:32 MW [id number] 07/13/19 09:37 MW 07/13/19 09:32 Wound Center Nurse 2 [Procedure/Treatment] #16 right posterior cluster -Time 09:33 -Correct Patient Yes -Correct Side, Site, Position Yes -Correct Procedure Yes -Procedure Performed No -Post Debridement Size (cm) - Length 0.1 -Post Debridement Size (cm) - Width 0.1 -Post Debridement Size (cm) - Depth 0.1 -Total Square Cm 0.01 -Wound/Ulcer Outcome Not Healed -Ulcer Cleansing Rinsed/ Irrigated with Saline -Foul Odor after Cleansing No -Bioengineered Tissue No -Bleeding Controlled with Pressure -Offloading No -Treatment Response Procedure Tolerated Well #15 R Lat Knee -Time 09:33 -Correct Patient Yes -Correct Side, Site, Position Yes -Correct Procedure Yes -Procedure Performed Yes -Type of Procedure Debridement -Clinical Debridement Subcutaneous -Post Debridement Size (cm) - Length 1.0 -Post Debridement Size (cm) - Width 4.0 -Post Debridement Size (cm) - Depth 0.5 -Total Square Cm 4.00 -Wound/Ulcer Outcome Not Healed -Ulcer Cleansing Rinsed/ Irrigated with Saline -Foul Odor after Cleansing No -Bioengineered Tissue No -Bleeding Controlled with Pressure -Offloading No -Treatment Response Procedure Tolerated Well #13 R Lat cluster -Time 09:33 -Correct Patient Yes -Correct Side, Site, Position Yes -Correct Procedure Yes -Procedure Performed No -Post Debridement Size (cm) - Length 0.1 -Post Debridement Size (cm) - Width 0.1 -Post Debridement Size (cm) - Depth 0.1 -Total Square Cm 0.01 -Wound/Ulcer Outcome Not Healed -Ulcer Cleansing Rinsed/ Irrigated with Saline -Foul Odor after Cleansing No -Bioengineered Tissue No -Bleeding Controlled with Pressure -Offloading No -Treatment Response Procedure Tolerated Well #12 Left superior calf -Time 09:34 -Correct Patient Yes -Correct Side, Site, Position Yes -Correct Procedure Yes -Procedure Performed No -Post Debridement Size (cm) - Length 0 -Post Debridement Size (cm) - Width 0 -Post Debridement Size (cm) - Depth 0 -Total Square Cm 0 -Wound/Ulcer Outcome Healed- Epithelialized -Ulcer Cleansing Not Cleansed -Foul Odor after Cleansing No -Bioengineered Tissue No -Bleeding Controlled with NA -Offloading No -Treatment Response Procedure Tolerated Well [See Physician Procedure note for Specifics] Pain Scale: 0-10 Numeric [Pain] -Is Patient Pain Free? Yes Musculoskeletal: No Muscle Wasting Neurological: Cranial nerves II-XII grossly intact Psych/Mental Status: Normal Affect Debridement Note Post-Debridement Measurements/Treatment WC - Nurse 2 - General Ulcer CM Notes Start: 07/13/19 09:05 Freq: Status: Active Protocol: Activity Type Activity Date Activity User E-Sign Co-Sign Detail Recorded Client Recorded Date Recorded By Document 07/13/19 09:32 MW [id number] 07/13/19 09:37 MW 07/13/19 09:32 Wound Center Nurse 2 #16 right posterior cluster -Time 09:33 -Correct Patient Yes -Correct Side, Site, Position Yes -Correct Procedure Yes -Procedure Performed No -Post Debridement Size (cm) - Length 0.1 -Post Debridement Size (cm) - Width 0.1 -Post Debridement Size (cm) - Depth 0.1 -Total Square Cm 0.01 -Wound/Ulcer Outcome Not Healed -Ulcer Cleansing Rinsed/ Irrigated with Saline -Foul Odor after Cleansing No -Bioengineered Tissue No -Bleeding Controlled with Pressure -Offloading No -Treatment Response Procedure Tolerated Well #15 R Lat Knee -Time 09:33 -Correct Patient Yes -Correct Side, Site, Position Yes -Correct Procedure Yes -Procedure Performed Yes -Type of Procedure Debridement -Clinical Debridement Subcutaneous -Post Debridement Size (cm) - Length 1.0 -Post Debridement Size (cm) - Width 4.0 -Post Debridement Size (cm) - Depth 0.5 -Total Square Cm 4.00 -Wound/Ulcer Outcome Not Healed -Ulcer Cleansing Rinsed/ Irrigated with Saline -Foul Odor after Cleansing No -Bioengineered Tissue No -Bleeding Controlled with Pressure -Offloading No -Treatment Response Procedure Tolerated Well #13 R Lat cluster -Time 09:33 -Correct Patient Yes -Correct Side, Site, Position Yes -Correct Procedure Yes -Procedure Performed No -Post Debridement Size (cm) - Length 0.1 -Post Debridement Size (cm) - Width 0.1 -Post Debridement Size (cm) - Depth 0.1 -Total Square Cm 0.01 -Wound/Ulcer Outcome Not Healed -Ulcer Cleansing Rinsed/ Irrigated with Saline -Foul Odor after Cleansing No -Bioengineered Tissue No -Bleeding Controlled with Pressure -Offloading No -Treatment Response Procedure Tolerated Well #12 Left superior calf -Time 09:34 -Correct Patient Yes -Correct Side, Site, Position Yes -Correct Procedure Yes -Procedure Performed No -Post Debridement Size (cm) - Length 0 -Post Debridement Size (cm) - Width 0 -Post Debridement Size (cm) - Depth 0 -Total Square Cm 0 -Wound/Ulcer Outcome Healed- Epithelialized -Ulcer Cleansing Not Cleansed -Foul Odor after Cleansing No -Bioengineered Tissue No -Bleeding Controlled with NA -Offloading No -Treatment Response Procedure Tolerated Well Pain Scale: 0-10 Numeric Is Patient Pain Free? Yes Wound debrided: Right Lateral Knee Type of Debridement: Excisional debridement Anesthesia Used: 4% Lidocaine Solution Depth: Down to and including healthy tissue, in the subcutaneous layer Percentage of wound debrided: 100 Instrument Used: 5mm curette, #15 blade, Forceps Tissue Removed: Slough and devitalized tissue Severity: Fat Layer Exposed Amount of bleeding with debridement: Mild Bleeding Controlled with: Pressure Patient tolerated procedure well Assessment/Plan Active Problems Lymphedema (Chronic) Secondary to chronic venous insufficieny of Bilateral Lower Extremity. Ulcer of right lower extremity with fat layer exposed (Chronic) Ulcer of left lower extremity with fat layer exposed (Chronic) Assessment: Same as above. Plan: Debridement done as documented above. Procedure was well-tolerated. Improving ulcers. Continue Santyl to the right lateral knee ulcer. Continue Aquacel with ABD over top to other surfaces. Change 4-5 times daily depending o n drainage. Patient continues to require large amounts of wound care supply due to size as documented above of ulcer and significant drainage. Also advised that she elevate her lower extremity when seated and in bed. Increased protein intake recommended. Exercise as tolerated and avoid idle standing. She expressed understanding. Daily isreal wraps for edema management for now. Did not tolerate 3M wraps and Isreal wrap not sufficiently managing edema. Compliance with lymphedema pump strongly recommended. Continue antibiotics per current management. Due to poor compliance and inability to adequately care for herself prognosis for wound healing is not very encouraging. She remains complex care pending further resolution/consistency of home care situation. Her questions were answered and she was advised to call with any further questions or concerns. Follow-up in 1 week. This note was generated with [employer] dictation software. It may contain incorrect words, spelling, and punctuation that were not noted in checking the note before signing.
[2019-07-20 08:53] VITALS: BP 119/76; PULSE 64; RESP 22; TEMP 37; BMI 71.4
--- NOTE | 2019-07-20 10:21 | PN.PCM_ITS ---
(1) Ulcer of left lower extremity with fat layer exposed Status: Chronic Current Visit: Yes Code(s): L97.922 - Non-pressure chronic ulcer of unspecified part of left lower leg with fat layer exposed (2) Ulcer of right lower extremity with fat layer exposed Status: Chronic Current Visit: Yes Code(s): L97.912 - Non-pressure chronic ulcer of unspecified part of right lower leg with fat layer exposed (3) Lymphedema Status: Chronic Current Visit: Yes Code(s): I89.0 - Lymphedema, not elsewhere classified Comment: Secondary to chronic venous insufficieny of Bilateral Lower Extremity. Type of Wound Date of Service: 07/20/19 Chief Complaint: Right lower extremity ulcers. History of Wound: Ms. Molina is a 48-year-old who was referred to the wound center by her primary care physician due to right lower extremity ulcers. Per patient, started out with redness pain and swelling for which she was managed for cellulitis. Subsequently developed ulcerations in her calf and enciso. She feels well other at this time and denies chills, fever, nausea, vomitting or change in her bowel habit. Progress of Wound: Right lateral knee ulcer with increased depth and more drainage. patient feels well otherwise. - Physical Exam Vital Signs Temp Pulse Resp BP 98.6 F 64 22 H 119/76 07/20/19 08:53 07/20/19 08:53 07/20/19 08:53 07/20/19 08:53 General: Alert, Oriented x3, Cooperative, No apparent distress HEENT: Atraumatic, Normocephalic Oral: Moist Mucosa Neck: Supple Abdomen: Obese Extremities: No cyanosis, Edema Skin: Ulcer/ Wound Wound Measurements and Assessment WC - Nurse 1 - General Ulcer Measurement Start: 07/13/19 09:05 Freq: Status: Active Protocol: Activity Type Activity Date Activity User E-Sign Co-Sign Detail Recorded Client Recorded Date Recorded By Document 07/20/19 08:53 DV [id number] 07/20/19 09:02 DV 07/20/19 08:53 Wound Center Nurse 1 [Ulcer Assessment] #16 right posterior cluster -Current Size (cm) - Length 0.8 -Current Size (cm) - Width 4.0 -Current Size (cm) - Depth 0.9 -Total Square Cm 3.20 -Foul Odor after Cleansing No #15 R Lat Knee -Combined with other wound No -Current Size (cm) - Length 0.8 -Current Size (cm) - Width 4.0 -Current Size (cm) - Depth 0.9 -Total Square Cm 3.20 -Photo Taken No -Epithelialization Small 1-33% -Tunneling No -Undermining/Tunneling No -Circular Undermining No -Classification - Thickness Full Thickness without Exposed Support Structure -Exudate Amt Medium -Exudate Type Serosanguineous -Wound Margin Flat & Intact -Granulation Amt Small (1-33%) -Granulation Quality Pale,Boron -Slough/Fibrin Yes -Necrosis Amt Large (67-100%) -Necrotic Tissue Type Adherent Slough -Structure Exposed None/Limited to Skin Breakdown -Texture (Martha-wound Skin Appearance) Assessed, Localized Edema ,Scarring -Moisture (Martha-wound Skin Appearance Assessed, ) Weeping -Color (Martha-wound Skin Appearance) Assessed, Erythema -Temperature (Martha-wound Skin No Abnormality Appearance) (Pt Warm) -Tenderness on Palpation (Martha-wound Yes Skin Appearance) -Ulcer Cleansing Rinsed/ Irrigated with Saline -Foul Odor after Cleansing No -Anesthetic Used 4% Lidocaine Solution [Edema Assessment] -Lower Limb Edema Present Yes -Right Calf (cm) 79.5 -Right Ankle (cm) 34.5 WC - Nurse 2 - General Ulcer CM Notes Start: 07/13/19 09:05 Freq: Status: Active Protocol: Activity Type Activity Date Activity User E-Sign Co-Sign Detail Recorded Client Recorded Date Recorded By Document 07/20/19 09:17 MW [id number] 07/20/19 09:27 MW 07/20/19 09:17 Wound Center Nurse 2 [Procedure/Treatment] #16 right posterior cluster -Time 09:20 -Correct Patient Yes -Correct Side, Site, Position Yes -Correct Procedure Yes -Procedure Performed No -Post Debridement Size (cm) - Length 0 -Post Debridement Size (cm) - Width 0 -Post Debridement Size (cm) - Depth 0 -Total Square Cm 0 -Wound/Ulcer Outcome Healed- Epithelialized -Ulcer Cleansing Not Cleansed -Bleeding Controlled with NA -Offloading No -Treatment Response Procedure Tolerated Well #15 R Lat Knee -Time 09:21 -Correct Patient Yes -Correct Side, Site, Position Yes -Correct Procedure Yes -Procedure Performed Yes -Type of Procedure Debridement -Clinical Debridement Subcutaneous -Post Debridement Size (cm) - Length 0.3 -Post Debridement Size (cm) - Width 3.5 -Post Debridement Size (cm) - Depth 2.2 -Total Square Cm 1.05 -Wound/Ulcer Outcome Not Healed -Ulcer Cleansing Rinsed/ Irrigated with Saline -Foul Odor after Cleansing No -Bioengineered Tissue No -Bleeding Controlled with Pressure -Offloading No -Treatment Response Procedure Tolerated Well #13 R Lat cluster -Time 09:21 -Correct Patient Yes -Correct Side, Site, Position Yes -Correct Procedure Yes -Procedure Performed No -Post Debridement Size (cm) - Length 0 -Post Debridement Size (cm) - Width 0 -Post Debridement Size (cm) - Depth 0 -Total Square Cm 0 -Wound/Ulcer Outcome Healed- Epithelialized [See Physician Procedure note for Specifics] Pain Scale: 0-10 Numeric [Pain] -Is Patient Pain Free? Yes Musculoskeletal: No Muscle Wasting Neurological: Cranial nerves II-XII grossly intact Psych/Mental Status: Normal Affect Debridement Note Post-Debridement Measurements/Treatment WC - Nurse 2 - General Ulcer CM Notes Start: 07/13/19 09:05 Freq: Status: Active Protocol: Activity Type Activity Date Activity User E-Sign Co-Sign Detail Recorded Client Recorded Date Recorded By Document 07/13/19 09:32 MW [id number] 07/13/19 09:37 MW Document 07/20/19 09:17 MW [id number] 07/20/19 09:27 MW 07/13/19 07/20/19 09:32 09:17 Wound Center Nurse 2 #16 right posterior cluster -Time 09:33 09:20 -Correct Patient Yes Yes -Correct Side, Site, Position Yes Yes -Correct Procedure Yes Yes -Procedure Performed No No -Post Debridement Size (cm) - Length 0.1 0 -Post Debridement Size (cm) - Width 0.1 0 -Post Debridement Size (cm) - Depth 0.1 0 -Total Square Cm 0.01 0 -Wound/Ulcer Outcome Not Healed Healed- Epithelialized -Ulcer Cleansing Rinsed/ Not Cleansed Irrigated with Saline -Foul Odor after Cleansing No -Bioengineered Tissue No -Bleeding Controlled with Pressure NA -Offloading No No -Treatment Response Procedure Procedure Tolerated Well Tolerated Well #15 R Lat Knee -Time 09:33 09:21 -Correct Patient Yes Yes -Correct Side, Site, Position Yes Yes -Correct Procedure Yes Yes -Procedure Performed Yes Yes -Type of Procedure Debridement Debridement -Clinical Debridement Subcutaneous Subcutaneous -Post Debridement Size (cm) - Length 1.0 0.3 -Post Debridement Size (cm) - Width 4.0 3.5 -Post Debridement Size (cm) - Depth 0.5 2.2 -Total Square Cm 4.00 1.05 -Wound/Ulcer Outcome Not Healed Not Healed -Ulcer Cleansing Rinsed/ Rinsed/ Irrigated with Irrigated with Saline Saline -Foul Odor after Cleansing No No -Bioengineered Tissue No No -Bleeding Controlled with Pressure Pressure -Offloading No No -Treatment Response Procedure Procedure Tolerated Well Tolerated Well #13 R Lat cluster -Time 09:33 09:21 -Correct Patient Yes Yes -Correct Side, Site, Position Yes Yes -Correct Procedure Yes Yes -Procedure Performed No No -Post Debridement Size (cm) - Length 0.1 0 -Post Debridement Size (cm) - Width 0.1 0 -Post Debridement Size (cm) - Depth 0.1 0 -Total Square Cm 0.01 0 -Wound/Ulcer Outcome Not Healed Healed- Epithelialized -Ulcer Cleansing Rinsed/ Irrigated with Saline -Foul Odor after Cleansing No -Bioengineered Tissue No -Bleeding Controlled with Pressure -Offloading No -Treatment Response Procedure Tolerated Well #12 Left superior calf -Time 09:34 -Correct Patient Yes -Correct Side, Site, Position Yes -Correct Procedure Yes -Procedure Performed No -Post Debridement Size (cm) - Length 0 -Post Debridement Size (cm) - Width 0 -Post Debridement Size (cm) - Depth 0 -Total Square Cm 0 -Wound/Ulcer Outcome Healed- Epithelialized -Ulcer Cleansing Not Cleansed -Foul Odor after Cleansing No -Bioengineered Tissue No -Bleeding Controlled with NA -Offloading No -Treatment Response Procedure Tolerated Well Pain Scale: 0-10 Numeric Is Patient Pain Free? Yes Yes Wound debrided: Right Lateral Knee Type of Debridement: Excisional debridement Anesthesia Used: 4% Lidocaine Solution Depth: Down to and including healthy tissue, in the subcutaneous layer Percentage of wound debrided: 100 Instrument Used: 5mm curette Tissue Removed: Slough and devitalized tissue Severity: Fat Layer Exposed Amount of bleeding with debridement: Mild Bleeding Controlled with: Pressure Patient tolerated procedure well Assessment/Plan Active Problems Lymphedema (Chronic) Secondary to chronic venous insufficieny of Bilateral Lower Extremity. Ulcer of right lower extremity with fat layer exposed (Chronic) Ulcer of left lower extremity with fat layer exposed (Chronic) Assessment: Same as above. Plan: Debridement done as documented above. Procedure was well-tolerated. Bilateral lower extremities ulcers are healed. Lateral knee ulcer with worsening depth and increased drainage. Continue Santyl. Will start a Snap Vac due to increased drainage and depth. Daily isreal wraps for edema management for now. Did not tolerate 3M wraps and Isreal wrap not sufficiently managing edema. Compliance with lymphedema pump strongly recommended. Due to poor compliance and inability to adequately care for herself prognosis for wound healing is not very encouraging. She remains complex care pending further resolution/consistency of home care situation. Her questions were answered and she was advised to call with any further questions or concerns. Follow-up in 1 week. This note was generated with [employer] dictation software. It may contain incorrect words, s pelling, and punctuation that were not noted in checking the note before signing.
[2019-07-25 14:24] VITALS: BP 142/81; PULSE 86; RESP 22; TEMP 36.4; BMI 71.4
[2019-07-27 09:28] VITALS: BP 113/67; PULSE 60; RESP 18; TEMP 35.5; BMI 71.4
--- NOTE | 2019-07-27 12:12 | PN.PCM_ITS ---
(1) Ulcer of left lower extremity with fat layer exposed Status: Chronic Current Visit: Yes Code(s): L97.922 - Non-pressure chronic ulcer of unspecified part of left lower leg with fat layer exposed (2) Ulcer of right lower extremity with fat layer exposed Status: Chronic Current Visit: Yes Code(s): L97.912 - Non-pressure chronic ulcer of unspecified part of right lower leg with fat layer exposed (3) Lymphedema Status: Chronic Current Visit: Yes Code(s): I89.0 - Lymphedema, not elsewhere classified Comment: Secondary to chronic venous insufficieny of Bilateral Lower Extremity. Type of Wound Date of Service: 07/27/19 Chief Complaint: Right lower extremity ulcers. History of Wound: Ms. Molina is a 48-year-old who was referred to the wound center by her primary care physician due to right lower extremity ulcers. Per patient, started out with redness pain and swelling for which she was managed for cellulitis. Subsequently developed ulcerations in her calf and enciso. She feels well other at this time and denies chills, fever, nausea, vomitting or change in her bowel habit. Progress of Wound: Having concerns with Snap. Right lateral knee ulcer is however improving. - Physical Exam Vital Signs Temp Pulse Resp BP 96 F L 60 18 113/67 07/27/19 09:28 07/27/19 09:28 07/27/19 09:28 07/27/19 09:28 General: Alert, Oriented x3, Cooperative, No apparent distress HEENT: Atraumatic, Normocephalic Oral: Moist Mucosa Neck: Supple Lungs: Normal air movement Abdomen: Obese Extremities: No cyanosis, Edema Skin: Ulcer/ Wound Wound Measurements and Assessment WC - Nurse 1 - General Ulcer Measurement Start: 07/13/19 09:05 Freq: Status: Active Protocol: Activity Type Activity Date Activity User E-Sign Co-Sign Detail Recorded Client Recorded Date Recorded By Document 07/25/19 14:24 DL [id number] 07/25/19 14:27 DL Document 07/27/19 09:28 [facility] [id number] 07/27/19 09:35 BMF 07/25/19 07/27/19 14:24 09:28 Wound Center Nurse 1 [Ulcer Assessment] #15 R Lat Knee -Combined with other wound No -Current Size (cm) - Length 0.7 -Current Size (cm) - Width 3.8 -Current Size (cm) - Depth 0.4 -Total Square Cm 2.66 -Photo Taken No -Epithelialization Small 1-33% -Tunneling No -Undermining/Tunneling No -Circular Undermining No -Exudate Amt Small -Exudate Type Serosanguineous -Wound Margin Distinct, Outline Attached -Granulation Amt Medium (34-66%) -Granulation Quality Red -Slough/Fibrin Yes -Necrosis Amt Medium (34-66%) -Necrotic Tissue Type Adherent Slough -Texture (Martha-wound Skin Appearance) No Abnormality Assessed, Scarring -Moisture (Martha-wound Skin Appearance No Abnormality Assessed ) -Color (Martha-wound Skin Appearance) No Abnormality Assessed -Temperature (Martha-wound Skin No Abnormality No Abnormality Appearance) (Pt Warm) (Pt Warm) -Tenderness on Palpation (Martha-wound No No Skin Appearance) -Ulcer Cleansing Wound Cleanser SOAP AND WATER -Foul Odor after Cleansing No No -Anesthetic Used 5% Lidocaine Gel [Edema Assessment] -Lower Limb Edema Present Yes -Right Calf (cm) 72 -Right Ankle (cm) 33 -Left Calf (cm) 63 -Left Ankle (cm) 29.5 WC - Nurse 2 - General Ulcer CM Notes Start: 07/13/19 09:05 Freq: Status: Active Protocol: Activity Type Activity Date Activity User E-Sign Co-Sign Detail Recorded Client Recorded Date Recorded By Document 07/27/19 09:48 MW [id number] 07/27/19 09:51 MW 07/27/19 09:48 Wound Center Nurse 2 [Procedure/Treatment] #15 R Lat Knee -Time 09:50 -Correct Patient Yes -Correct Side, Site, Position Yes -Correct Procedure Yes -Procedure Performed Yes -Type of Procedure Debridement -Clinical Debridement Subcutaneous -Post Debridement Size (cm) - Length 0.3 -Post Debridement Size (cm) - Width 3.5 -Post Debridement Size (cm) - Depth 0.7 -Total Square Cm 1.05 -Wound/Ulcer Outcome Not Healed -Ulcer Cleansing Rinsed/ Irrigated with Saline -Foul Odor after Cleansing No -Bioengineered Tissue No -Bleeding Controlled with Pressure -Offloading No -Treatment Response Procedure Tolerated Well [See Physician Procedure note for Specifics] Pain Scale: 0-10 Numeric [Pain] -Is Patient Pain Free? Yes Musculoskeletal: No Muscle Wasting Neurological: Cranial nerves II-XII grossly intact Psych/Mental Status: Normal Affect Debridement Note Post-Debridement Measurements/Treatment WC - Nurse 2 - General Ulcer CM Notes Start: 07/13/19 09:05 Freq: Status: Active Protocol: Activity Type Activity Date Activity User E-Sign Co-Sign Detail Recorded Client Recorded Date Recorded By Document 07/13/19 09:32 MW [id number] 07/13/19 09:37 MW Document 07/20/19 09:17 MW [id number] 07/20/19 09:27 MW Document 07/27/19 09:48 MW [id number] 07/27/19 09:51 MW 07/13/19 07/20/19 07/27/19 09:32 09:17 09:48 Wound Center Nurse 2 #16 right posterior cluster -Time 09:33 09:20 -Correct Patient Yes Yes -Correct Side, Site, Position Yes Yes -Correct Procedure Yes Yes -Procedure Performed No No -Post Debridement Size (cm) - Length 0.1 0 -Post Debridement Size (cm) - Width 0.1 0 -Post Debridement Size (cm) - Depth 0.1 0 -Total Square Cm 0.01 0 -Wound/Ulcer Outcome Not Healed Healed- Epithelialized -Ulcer Cleansing Rinsed/ Not Cleansed Irrigated with Saline -Foul Odor after Cleansing No -Bioengineered Tissue No -Bleeding Controlled with Pressure NA -Offloading No No -Treatment Response Procedure Procedure Tolerated Well Tolerated Well #15 R Lat Knee -Time 09:33 09:21 09:50 -Correct Patient Yes Yes Yes -Correct Side, Site, Position Yes Yes Yes -Correct Procedure Yes Yes Yes -Procedure Performed Yes Yes Yes -Type of Procedure Debridement Debridement Debridement -Clinical Debridement Subcutaneous Subcutaneous Subcutaneous -Post Debridement Size (cm) - Length 1.0 0.3 0.3 -Post Debridement Size (cm) - Width 4.0 3.5 3.5 -Post Debridement Size (cm) - Depth 0.5 2.2 0.7 -Total Square Cm 4.00 1.05 1.05 -Wound/Ulcer Outcome Not Healed Not Healed Not Healed -Ulcer Cleansing Rinsed/ Rinsed/ Rinsed/ Irrigated with Irrigated with Irrigated with Saline Saline Saline -Foul Odor after Cleansing No No No -Bioengineered Tissue No No No -Bleeding Controlled with Pressure Pressure Pressure -Offloading No No No -Treatment Response Procedure Procedure Procedure Tolerated Well Tolerated Well Tolerated Well #13 R Lat cluster -Time 09:33 09:21 -Correct Patient Yes Yes -Correct Side, Site, Position Yes Yes -Correct Procedure Yes Yes -Procedure Performed No No -Post Debridement Size (cm) - Length 0.1 0 -Post Debridement Size (cm) - Width 0.1 0 -Post Debridement Size (cm) - Depth 0.1 0 -Total Square Cm 0.01 0 -Wound/Ulcer Outcome Not Healed Healed- Epithelialized -Ulcer Cleansing Rinsed/ Irrigated with Saline -Foul Odor after Cleansing No -Bioengineered Tissue No -Bleeding Controlled with Pressure -Offloading No -Treatment Response Procedure Tolerated Well #12 Left superior calf -Time 09:34 -Correct Patient Yes -Correct Side, Site, Position Yes -Correct Procedure Yes -Procedure Performed No -Post Debridement Size (cm) - Length 0 -Post Debridement Size (cm) - Width 0 -Post Debridement Size (cm) - Depth 0 -Total Square Cm 0 -Wound/Ulcer Outcome Healed- Epithelialized -Ulcer Cleansing Not Cleansed -Foul Odor after Cleansing No -Bioengineered Tissue No -Bleeding Controlled with NA -Offloading No -Treatment Response Procedure Tolerated Well Pain Scale: 0-10 Numeric Is Patient Pain Free? Yes Yes Yes Wound debrided: Right lateral Knee Type of Debridement: Excisional debridement Anesthesia Used: 4% Lidocaine Solution Depth: Down to and including healthy tissue, in the subcutaneous layer Percentage of wound debrided: 100 Instrument Used: 5mm curette Tissue Removed: Slough and devitalzied tissue Severity: Fat Layer Exposed Amount of bleeding with debridement: Mild Bleeding Controlled with: Pressure Patient tolerated procedure well Assessment/Plan Active Problems Lymphedema (Chronic) Secondary to chronic venous insufficieny of Bilateral Lower Extremity. Ulcer of right lower extremity with fat layer exposed (Chronic) Ulcer of left lower extremity with fat layer exposed (Chronic) Assessment: Same as above. Plan: Debridement done as documented above. Procedure was well-tolerated. Bilateral lower extremities ulcers stay healed. Lateral knee ulcer improving. Continue Santyl and Snap. Daily isreal wraps for edema management for now. Did not tolerate 3M wraps and Isreal wrap not sufficiently managing edema. Compliance with lymphedema pump strongly recommended. Due to poor compliance and inability to adequately care for herself prognosis for wound healing is not very encouraging. She remains complex care pending further resolution/consistency of home care situation. Her questions were answered and she was advised to call with any further questions or concerns. Follow-up in 1 week. This note was generated with [employer] dictation software. It may contain incorrect words, spelling, and punctuation that were not noted in checking the note before signing.
[2019-07-31 14:59] VITALS: BP 122/72; PULSE 57; RESP 18; TEMP 36.4; BMI 71.4
[2019-08-03 09:16] VITALS: BP 127/76; PULSE 73; RESP 18; TEMP 35.7; BMI 71.4
--- NOTE | 2019-08-03 10:10 | PN.PCM_ITS ---
(1) Ulcer of left lower extremity with fat layer exposed Status: Chronic Current Visit: Yes Code(s): L97.922 - Non-pressure chronic ulcer of unspecified part of left lower leg with fat layer exposed (2) Ulcer of right lower extremity with fat layer exposed Status: Chronic Current Visit: Yes Code(s): L97.912 - Non-pressure chronic ulcer of unspecified part of right lower leg with fat layer exposed (3) Lymphedema Status: Chronic Current Visit: Yes Code(s): I89.0 - Lymphedema, not elsewhere classified Comment: Secondary to chronic venous insufficieny of Bilateral Lower Extremity. Type of Wound Date of Service: 08/03/19 Chief Complaint: Right lower extremity ulcers. History of Wound: Ms. Molina is a 48-year-old who was referred to the wound center by her primary care physician due to right lower extremity ulcers. Per patient, started out with redness pain and swelling for which she was managed for cellulitis. Subsequently developed ulcerations in her calf and enciso. She feels well other at this time and denies chills, fever, nausea, vomitting or change in her bowel habit. Progress of Wound: Snap Dced due to concerns with maintainig suction. No new concerns at this time. Other ulcers stay healed. - Physical Exam Vital Signs Temp Pulse Resp BP 96.2 F L 73 18 127/76 H 08/03/19 09:16 08/03/19 09:16 08/03/19 09:16 08/03/19 09:16 General: Alert, Oriented x3, Cooperative, No apparent distress HEENT: Atraumatic, Normocephalic Oral: Moist Mucosa Neck: Supple Lungs: Normal air movement Abdomen: Non Tender, Obese Extremities: No cyanosis, Edema Skin: Ulcer/ Wound Wound Measurements and Assessment WC - Nurse 1 - General Ulcer Measurement Start: 07/13/19 09:05 Freq: Status: Active Protocol: Activity Type Activity Date Activity User E-Sign Co-Sign Detail Recorded Client Recorded Date Recorded By Document 07/31/19 14:59 DL [id number] 07/31/19 15:19 DL Document 08/03/19 09:16 [facility] [id number] 08/03/19 09:21 BMF 07/31/19 08/03/19 14:59 09:16 Wound Center Nurse 1 [Ulcer Assessment] #15 R Lat Knee -Combined with other wound No -Current Size (cm) - Length 0.5 -Current Size (cm) - Width 3.8 -Current Size (cm) - Depth 0.3 -Total Square Cm 1.90 -Photo Taken No -Epithelialization None Present -Tunneling No -Undermining/Tunneling No -Circular Undermining No -Exudate Amt Small -Exudate Type Serous -Wound Margin Distinct, Outline Attached -Granulation Amt Small (1-33%) -Granulation Quality [place] -Slough/Fibrin Yes -Necrosis Amt Large (67-100%) -Necrotic Tissue Type Adherent Slough -Structure Exposed Bone -Texture (Martha-wound Skin Appearance) Assessed, Scarring -Moisture (Martha-wound Skin Appearance No Abnormality Assessed ) -Color (Martha-wound Skin Appearance) No Abnormality Assessed -Temperature (Martha-wound Skin No Abnormality No Abnormality Appearance) (Pt Warm) (Pt Warm) -Tenderness on Palpation (Martha-wound No No Skin Appearance) -Ulcer Cleansing Wound Cleanser Rinsed/ Irrigated with Saline -Foul Odor after Cleansing No No -Anesthetic Used 5% Lidocaine Gel [Edema Assessment] -Lower Limb Edema Present Yes -Right Calf (cm) 72.8 -Right Ankle (cm) 35 WC - Nurse 2 - General Ulcer CM Notes Start: 07/13/19 09:05 Freq: Status: Active Protocol: Activity Type Activity Date Activity User E-Sign Co-Sign Detail Recorded Client Recorded Date Recorded By Document 08/03/19 09:56 MW [id number] 08/03/19 09:57 MW 08/03/19 09:56 Wound Center Nurse 2 [Procedure/Treatment] #15 R Lat Knee -Time 09:56 -Correct Patient Yes -Correct Side, Site, Position Yes -Correct Procedure Yes -Procedure Performed Yes -Type of Procedure Debridement -Clinical Debridement Subcutaneous -Post Debridement Size (cm) - Length 0.3 -Post Debridement Size (cm) - Width 3.0 -Post Debridement Size (cm) - Depth 0.6 -Total Square Cm 0.90 -Wound/Ulcer Outcome Not Healed -Ulcer Cleansing Rinsed/ Irrigated with Saline -Foul Odor after Cleansing No -Bioengineered Tissue No -Bleeding Controlled with Pressure -Offloading No -Treatment Response Procedure Tolerated Well [See Physician Procedure note for Specifics] Pain Scale: 0-10 Numeric [Pain] -Is Patient Pain Free? Yes Musculoskeletal: No Muscle Wasting Neurological: Cranial nerves II-XII grossly intact Psych/Mental Status: Normal Affect Debridement Note Post-Debridement Measurements/Treatment WC - Nurse 2 - General Ulcer CM Notes Start: 07/13/19 09:05 Freq: Status: Active Protocol: Activity Type Activity Date Activity User E-Sign Co-Sign Detail Recorded Client Recorded Date Recorded By Document 07/13/19 09:32 MW [id number] 07/13/19 09:37 MW Document 07/20/19 09:17 MW [id number] 07/20/19 09:27 MW Document 07/27/19 09:48 MW [id number] 07/27/19 09:51 MW Document 08/03/19 09:56 MW [id number] 08/03/19 09:57 MW 07/13/19 07/20/19 07/27/19 09:32 09:17 09:48 Wound Center Nurse 2 #16 right posterior cluster -Time 09:33 09:20 -Correct Patient Yes Yes -Correct Side, Site, Position Yes Yes -Correct Procedure Yes Yes -Procedure Performed No No -Post Debridement Size (cm) - Length 0.1 0 -Post Debridement Size (cm) - Width 0.1 0 -Post Debridement Size (cm) - Depth 0.1 0 -Total Square Cm 0.01 0 -Wound/Ulcer Outcome Not Healed Healed- Epithelialized -Ulcer Cleansing Rinsed/ Not Cleansed Irrigated with Saline -Foul Odor after Cleansing No -Bioengineered Tissue No -Bleeding Controlled with Pressure NA -Offloading No No -Treatment Response Procedure Procedure Tolerated Well Tolerated Well #15 R Lat Knee -Time 09:33 09:21 09:50 -Correct Patient Yes Yes Yes -Correct Side, Site, Position Yes Yes Yes -Correct Procedure Yes Yes Yes -Procedure Performed Yes Yes Yes -Type of Procedure Debridement Debridement Debridement -Clinical Debridement Subcutaneous Subcutaneous Subcutaneous -Post Debridement Size (cm) - Length 1.0 0.3 0.3 -Post Debridement Size (cm) - Width 4.0 3.5 3.5 -Post Debridement Size (cm) - Depth 0.5 2.2 0.7 -Total Square Cm 4.00 1.05 1.05 -Wound/Ulcer Outcome Not Healed Not Healed Not Healed -Ulcer Cleansing Rinsed/ Rinsed/ Rinsed/ Irrigated with Irrigated with Irrigated with Saline Saline Saline -Foul Odor after Cleansing No No No -Bioengineered Tissue No No No -Bleeding Controlled with Pressure Pressure Pressure -Offloading No No No -Treatment Response Procedure Procedure Procedure Tolerated Well Tolerated Well Tolerated Well #13 R Lat cluster -Time 09:33 09:21 -Correct Patient Yes Yes -Correct Side, Site, Position Yes Yes -Correct Procedure Yes Yes -Procedure Performed No No -Post Debridement Size (cm) - Length 0.1 0 -Post Debridement Size (cm) - Width 0.1 0 -Post Debridement Size (cm) - Depth 0.1 0 -Total Square Cm 0.01 0 -Wound/Ulcer Outcome Not Healed Healed- Epithelialized -Ulcer Cleansing Rinsed/ Irrigated with Saline -Foul Odor after Cleansing No -Bioengineered Tissue No -Bleeding Controlled with Pressure -Offloading No -Treatment Response Procedure Tolerated Well #12 Left superior calf -Time 09:34 -Correct Patient Yes -Correct Side, Site, Position Yes -Correct Procedure Yes -Procedure Performed No -Post Debridement Size (cm) - Length 0 -Post Debridement Size (cm) - Width 0 -Post Debridement Size (cm) - Depth 0 -Total Square Cm 0 -Wound/Ulcer Outcome Healed- Epithelialized -Ulcer Cleansing Not Cleansed -Foul Odor after Cleansing No -Bioengineered Tissue No -Bleeding Controlled with NA -Offloading No -Treatment Response Procedure Tolerated Well Pain Scale: 0-10 Numeric Is Patient Pain Free? Yes Yes Yes 08/03/19 09:56 Wound Center Nurse 2 #16 right posterior cluster -Time -Correct Patient -Correct Side, Site, Position -Correct Procedure -Procedure Performed -Post Debridement Size (cm) - Length -Post Debridement Size (cm) - Width -Post Debridement Size (cm) - Depth -Total Square Cm -Wound/Ulcer Outcome -Ulcer Cleansing -Foul Odor after Cleansing -Bioengineered Tissue -Bleeding Controlled with -Offloading -Treatment Response #15 R Lat Knee -Time 09:56 -Correct Patient Yes -Correct Side, Site, Position Yes -Correct Procedure Yes -Procedure Performed Yes -Type of Procedure Debridement -Clinical Debridement Subcutaneous -Post Debridement Size (cm) - Length 0.3 -Post Debridement Size (cm) - Width 3.0 -Post Debridement Size (cm) - Depth 0.6 -Total Square Cm 0.90 -Wound/Ulcer Outcome Not Healed -Ulcer Cleansing Rinsed/ Irrigated with Saline -Foul Odor after Cleansing No -Bioengineered Tissue No -Bleeding Controlled with Pressure -Offloading No -Treatment Response Procedure Tolerated Well #13 R Lat cluster -Time -Correct Patient -Correct Side, Site, Position -Correct Procedure -Procedure Performed -Post Debridement Size (cm) - Length -Post Debridement Size (cm) - Width -Post Debridement Size (cm) - Depth -Total Square Cm -Wound/Ulcer Outcome -Ulcer Cleansing -Foul Odor after Cleansing -Bioengineered Tissue -Bleeding Controlled with -Offloading -Treatment Response #12 Left superior calf -Time -Correct Patient -Correct Side, Site, Position -Correct Procedure -Procedure Performed -Post Debridement Size (cm) - Length -Post Debridement Size (cm) - Width -Post Debridement Size (cm) - Depth -Total Square Cm -Wound/Ulcer Outcome -Ulcer Cleansing -Foul Odor after Cleansing -Bioengineered Tissue -Bleeding Controlled with -Offloading -Treatment Response Pain Scale: 0-10 Numeric Is Patient Pain Free? Yes Wound debrided: Right Lateral Knee Type of Debridement: Excisional debridement Anesthesia Used: 4% Lidocaine Solution Depth: Down to and including healthy tissue, in the subcutaneous layer Percentage of wound debrided: 100 Instrument Used: 3mm curette Tissue Removed: Slough and devitalized tissue Severity: Fat Layer Exposed Amount of bleeding with debridement: Mild Bleeding Controlled with: Pressure Patient tolerated procedure well Assessment/Plan Active Problems Lymphedema (Chronic) Secondary to chronic venous insufficieny of Bilateral Lower Extremity. Ulcer of right lower extremity with fat layer exposed (Chronic) Ulcer of left lower extremity with fat layer exposed (Chronic) Assessment: Same as above. Plan: Debridement done as documented above. Procedure was well-tolerated. Bilateral lower extremities ulcers stay healed. Lateral knee ulcer is improving . Snap Dced. Switch to Pomogran daily. Daily isreal wraps for edema management for now. Did not tolerate 3M wraps and Isreal wrap not sufficiently managing edema. Compliance with lymphedema pump strongly recommended. Elevate lower xtremity when setaed and in bed. Avoid idle standing and exercise as tolerated. Her questions were answered and she was advised to call with any further questions or concerns. Follow-up in 1 week. This note was generated with [employer]ation software. It may contain incorrect words, spelling, and punctuation that were not noted in checking the note before signing.
== END 2019-08-03 23:59 ==
LOC: WC 10:00
PROVIDERS: Family Provider Family Medicine; PCP Family Medicine; Visit Provider Internal Medicine
DX: L97.812 Non-pressure chronic ulcer of other part of right lower leg with fat layer exposed (principal); I89.0 Lymphedema, not elsewhere classified; R60.0 Localized edema
CPT/HCPCS: 11042; 97605; 97606; 97607; 99212; G0463

== ENCOUNTER 2019-08-24 08:45 | Outpatient (RCR) | payer MEDICARE, MEDICAID, SELFPAY ==
[2019-08-04 00:39] VITALS: BP 127/76; PULSE 73; RESP 18; TEMP 35.7
[2019-08-17 08:57] VITALS: BP 125/72; PULSE 65; RESP 18; TEMP 35.5; BMI 71.4
--- NOTE | 2019-08-17 10:20 | PCM.WC.PN ---
(1) Lymphedema Status: Chronic Current Visit: Yes Code(s): I89.0 - Lymphedema, not elsewhere classified Comment: Secondary to chronic venous insufficieny of Bilateral Lower Extremity. (2) Ulcer of right lower extremity with fat layer exposed Status: Chronic Current Visit: Yes Code(s): L97.912 - Non-pressure chronic ulcer of unspecified part of right lower leg with fat layer exposed Type of Wound Date of Service: 08/17/19 Chief Complaint: Right lower extremity ulcers. History of Wound: Ms. Molina is a 48-year-old who was referred to the wound center by her primary care physician due to right lower extremity ulcers. Per patient, started out with redness pain and swelling for which she was managed for cellulitis. Subsequently developed ulcerations in her calf and enciso. She feels well other at this time and denies chills, fever, nausea, vomitting or change in her bowel habit. Progress of Wound: Right lateral knee is improving. Some skin breakdown noted on the right posterior leg. - Physical Exam Vital Signs Temp Pulse Resp BP 96 F L 65 18 125/72 H 08/17/19 08:57 08/17/19 08:57 08/17/19 08:57 08/17/19 08:57 General: Alert, Oriented x3, Cooperative, No apparent distress HEENT: Atraumatic, Normocephalic Oral: Moist Mucosa Neck: Supple Lungs: Normal air movement Abdomen: Non Tender, Obese Extremities: Edema Skin: Ulcer/ Wound Wound Measurements and Assessment WC - Nurse 1 - General Ulcer Measurement Start: 08/17/19 08:57 Freq: Status: Active Protocol: Activity Type Activity Date Activity User E-Sign Co-Sign Detail Recorded Client Recorded Date Recorded By Document 08/17/19 08:57 [id number] 08/17/19 09:00 RB 08/17/19 08:57 Wound Center Nurse 1 [Ulcer Assessment] #15 R Lat Knee -Combined with other wound No -Current Size (cm) - Length 2.5 -Current Size (cm) - Width 0.7 -Current Size (cm) - Depth 0.2 -Total Square Cm 1.75 -Tunneling No -Undermining/Tunneling No -Circular Undermining No -Exudate Amt Small -Exudate Type Serosanguineous -Wound Margin Thickened & Rolled Under -Granulation Amt Small (1-33%) -Granulation Quality [place] -Slough/Fibrin Yes -Necrosis Amt Large (67-100%) -Necrotic Tissue Type Adherent Slough -Structure Exposed N/A -Texture (Martha-wound Skin Appearance) Assessed -Moisture (Martha-wound Skin Appearance Assessed ) -Color (Martha-wound Skin Appearance) Erythema -Temperature (Martha-wound Skin No Abnormality Appearance) (Pt Warm) -Tenderness on Palpation (Martha-wound No Skin Appearance) -Ulcer Cleansing Wound Cleanser -Foul Odor after Cleansing No -Anesthetic Used 5% Lidocaine Gel [Edema Assessment] -Lower Limb Edema Present Yes -Right Calf (cm) 73.5 -Right Ankle (cm) 36 WC - Nurse 2 - General Ulcer CM Notes Start: 08/17/19 08:57 Freq: Status: Active Protocol: Activity Type Activity Date Activity User E-Sign Co-Sign Detail Recorded Client Recorded Date Recorded By Document 08/17/19 09:40 MW [id number] 08/17/19 09:48 MW 08/17/19 09:40 Wound Center Nurse 2 [Procedure/Treatment] #15 R Lat Knee -Time 09:43 -Correct Patient Yes -Correct Side, Site, Position Yes -Correct Procedure Yes -Procedure Performed Yes -Type of Procedure Debridement -Clinical Debridement Subcutaneous -Post Debridement Size (cm) - Length 0.2 -Post Debridement Size (cm) - Width 2.0 -Post Debridement Size (cm) - Depth 0.2 -Total Square Cm 0.40 -Wound/Ulcer Outcome Not Healed -Ulcer Cleansing Rinsed/ Irrigated with Saline -Foul Odor after Cleansing No -Bioengineered Tissue No -Bleeding Controlled with NA,Pressure -Offloading No -Treatment Response Procedure Tolerated Well [See Physician Procedure note for Specifics] Pain Scale: 0-10 Numeric [Pain] -Is Patient Pain Free? Yes Neurological: Cranial nerves II-XII grossly intact Psych/Mental Status: Normal Affect Debridement Note Post-Debridement Measurements/Treatment WC - Nurse 2 - General Ulcer CM Notes Start: 08/17/19 08:57 Freq: Status: Active Protocol: Activity Type Activity Date Activity User E-Sign Co-Sign Detail Recorded Client Recorded Date Recorded By Document 08/17/19 09:40 MW [id number] 08/17/19 09:48 MW 08/17/19 09:40 Wound Center Nurse 2 #15 R Lat Knee -Time 09:43 -Correct Patient Yes -Correct Side, Site, Position Yes -Correct Procedure Yes -Procedure Performed Yes -Type of Procedure Debridement -Clinical Debridement Subcutaneous -Post Debridement Size (cm) - Length 0.2 -Post Debridement Size (cm) - Width 2.0 -Post Debridement Size (cm) - Depth 0.2 -Total Square Cm 0.40 -Wound/Ulcer Outcome Not Healed -Ulcer Cleansing Rinsed/ Irrigated with Saline -Foul Odor after Cleansing No -Bioengineered Tissue No -Bleeding Controlled with NA,Pressure -Offloading No -Treatment Response Procedure Tolerated Well Pain Scale: 0-10 Numeric Is Patient Pain Free? Yes Wound debrided: Right Lateral Knee Type of Debridement: Excisional debridement Anesthesia Used: 4% Lidocaine Solution Depth: Down to and including healthy tissue, in the subcutaneous layer Percentage of wound debrided: 100 Instrument Used: 3mm curette Tissue Removed: Slough and devitalized tissue Severity: Fat Layer Exposed Amount of bleeding with debridement: Mild Bleeding Controlled with: Pressure Patient tolerated procedure well Assessment/Plan Active Problems Lymphedema (Chronic) Secondary to chronic venous insufficieny of Bilateral Lower Extremity. Ulcer of right lower extremity with fat layer exposed (Chronic) Assessment: Same as above. Plan: Debridement done as documented above. Procedure was well-tolerated. Bilateral lower extremities ulcers stay largely healed. Mild skin breakdown of the right posterior leg due to worsening edema. Lateral knee ulcer is improving. Continue Pomogran daily to right lateral knee and aquacel with ABD to right posterior leg.. Daily isreal wraps for edema management for now. Did not tolerate 3M wraps and Isreal wrap not sufficiently managing edema. Compliance with lymphedema pump strongly recommended. Elevate lower extremity when seated and in bed. Avoid idle standing and exercise as tolerated. Also advised to reschedule her appointment with the lymphedema clinic. Her questions were answered and she was advised to call with any further questions or concerns. Follow-up in 1 week. This note was generated with [employer]ation software. It may contain incorrect words, spelling, and punctuation that were not noted in checking the note before signing. Code Visit 111xxx-113xx: [address] [place] subq tissue 20 sq cm/<
[2019-08-24 09:05] VITALS: BP 113/64; PULSE 59; RESP 22; TEMP 35.8; BMI 71.4
--- NOTE | 2019-08-24 09:38 | PCM.WC.PN ---
(1) Lymphedema Status: Chronic Current Visit: Yes Code(s): I89.0 - Lymphedema, not elsewhere classified Comment: Secondary to chronic venous insufficieny of Bilateral Lower Extremity. (2) Ulcer of right lower extremity with fat layer exposed Status: Chronic Current Visit: Yes Code(s): L97.912 - Non-pressure chronic ulcer of unspecified part of right lower leg with fat layer exposed Type of Wound Date of Service: 08/24/19 Chief Complaint: Right lower extremity ulcers. History of Wound: Ms. Molina is a 48-year-old who was referred to the wound center by her primary care physician due to right lower extremity ulcers. Per patient, started out with redness pain and swelling for which she was managed for cellulitis. Subsequently developed ulcerations in her calf and enciso. She feels well other at this time and denies chills, fever, nausea, vomitting or change in her bowel habit. Progress of Wound: Stable. No new concerns at this time. - Physical Exam Vital Signs Temp Pulse Resp BP 96.4 F L 59 L 22 H 113/64 08/24/19 09:05 08/24/19 09:05 08/24/19 09:05 08/24/19 09:05 General: Alert, Oriented x3, Cooperative, No apparent distress HEENT: Atraumatic, Normocephalic Oral: Moist Mucosa Lungs: Normal air movement Abdomen: Non Tender, Obese Extremities: No cyanosis, Edema Skin: Ulcer/ Wound Wound Measurements and Assessment WC - Nurse 1 - General Ulcer Measurement Start: 08/17/19 08:57 Freq: Status: Active Protocol: Activity Type Activity Date Activity User E-Sign Co-Sign Detail Recorded Client Recorded Date Recorded By Document 08/24/19 09:05 [id number] 08/24/19 09:10 DL 08/24/19 09:05 Wound Center Nurse 1 [Ulcer Assessment] #15 R Lat Knee -Current Size (cm) - Length 1.3 -Current Size (cm) - Width 0.4 -Current Size (cm) - Depth 0.2 -Total Square Cm 0.52 -Photo Taken No -Exudate Amt Small -Exudate Type Serosanguineous -Wound Margin Distinct, Outline Attached -Granulation Amt Large (67-100%) -Granulation Quality [place] -Necrosis Amt Small (1-33%) -Necrotic Tissue Type Adherent Slough -Structure Exposed N/A -Texture (Martha-wound Skin Appearance) Scarring -Moisture (Martha-wound Skin Appearance No Abnormality ) -Color (Martha-wound Skin Appearance) No Abnormality -Temperature (Martha-wound Skin No Abnormality Appearance) (Pt Warm) -Tenderness on Palpation (Martha-wound No Skin Appearance) -Ulcer Cleansing Wound Cleanser -Foul Odor after Cleansing No -Anesthetic Used 5% Lidocaine Gel [Edema Assessment] -Right Calf (cm) 76.5 -Right Ankle (cm) 33.8 WC - Nurse 2 - General Ulcer CM Notes Start: 08/17/19 08:57 Freq: Status: Active Protocol: Activity Type Activity Date Activity User E-Sign Co-Sign Detail Recorded Client Recorded Date Recorded By Document 08/24/19 09:24 MW [id number] 08/24/19 09:26 MW 08/24/19 09:24 Wound Center Nurse 2 [Procedure/Treatment] #15 R Lat Knee -Time 09:24 -Correct Patient Yes -Correct Side, Site, Position Yes -Correct Procedure Yes -Procedure Performed Yes -Type of Procedure Debridement -Clinical Debridement Subcutaneous -Post Debridement Size (cm) - Length 0.2 -Post Debridement Size (cm) - Width 1.5 -Post Debridement Size (cm) - Depth 0.1 -Total Square Cm 0.30 -Wound/Ulcer Outcome Not Healed -Ulcer Cleansing Rinsed/ Irrigated with Saline -Foul Odor after Cleansing No -Bioengineered Tissue No -Bleeding Controlled with Pressure -Offloading No -Treatment Response Procedure Tolerated Well [See Physician Procedure note for Specifics] Pain Scale: 0-10 Numeric [Pain] -Is Patient Pain Free? Yes Musculoskeletal: No Muscle Wasting Neurological: Cranial nerves II-XII grossly intact Psych/Mental Status: Normal Affect Debridement Note Post-Debridement Measurements/Treatment - Nurse 2 - General Ulcer CM Notes Start: 08/17/19 08:57 Freq: Status: Active Protocol: Activity Type Activity Date Activity User E-Sign Co-Sign Detail Recorded Client Recorded Date Recorded By Document 08/17/19 09:40 MW [id number] 08/17/19 09:48 MW Document 08/24/19 09:24 MW [id number] 08/24/19 09:26 MW 08/17/19 08/24/19 09:40 09:24 Wound Center Nurse 2 #15 R Lat Knee -Time 09:43 09:24 -Correct Patient Yes Yes -Correct Side, Site, Position Yes Yes -Correct Procedure Yes Yes -Procedure Performed Yes Yes -Type of Procedure Debridement Debridement -Clinical Debridement Subcutaneous Subcutaneous -Post Debridement Size (cm) - Length 0.2 0.2 -Post Debridement Size (cm) - Width 2.0 1.5 -Post Debridement Size (cm) - Depth 0.2 0.1 -Total Square Cm 0.40 0.30 -Wound/Ulcer Outcome Not Healed Not Healed -Ulcer Cleansing Rinsed/ Rinsed/ Irrigated with Irrigated with Saline Saline -Foul Odor after Cleansing No No -Bioengineered Tissue No No -Bleeding Controlled with NA,Pressure Pressure -Offloading No No -Treatment Response Procedure Procedure Tolerated Well Tolerated Well Pain Scale: 0-10 Numeric Is Patient Pain Free? Yes Yes Wound debrided: Right lateral knee Type of Debridement: Excisional debridement Anesthesia Used: 4% Lidocaine Solution Depth: Down to and including healthy tissue, in the subcutaneous layer Percentage of wound debrided: 100 Instrument Used: 3mm curette Tissue Removed: Slough and devitalized tissue Severity: Fat Layer Exposed Amount of bleeding with debridement: Mild Bleeding Controlled with: Pressure Patient tolerated procedure well Assessment/Plan Active Problems Lymphedema (Chronic) Secondary to chronic venous insufficieny of Bilateral Lower Extremity. Ulcer of right lower extremity with fat layer exposed (Chronic) Assessment: Same as above. Plan: Debridement done as documented above. Procedure was well-tolerated. Bilateral lower extremities ulcers stay largely healed. Lateral knee ulcer is improving. Continue Pomogran daily to right lateral knee and aquacel with ABD to right posterior leg.. Daily isreal wraps for edema management for now. Did not tolerate 3M wraps and Isreal wrap not sufficiently managing edema. Compliance with lymphedema pump strongly recommended. Elevate lower extremity when seated and in bed. Avoid idle standing and exercise as tolerated. Also advised to reschedule her appointment with the lymphedema clinic. Her questions were answered and she was advised to call with any further questions or concerns. Follow-up in 1 week. This note was generated with [employer] software. It may contain incorrect words, spelling, and punctuation that were not noted in checking the note before signing. Code Visit 111xxx-113xx: [address]185 [place] subq tissue 20 sq cm/<
== END 2019-09-02 23:59 ==
LOC: WC 08:45
PROVIDERS: Family Provider Family Medicine; PCP Family Medicine; Visit Provider Internal Medicine
DX: I87.2 Venous insufficiency (chronic) (peripheral) (principal); L97.812 Non-pressure chronic ulcer of other part of right lower leg with fat layer exposed; I89.0 Lymphedema, not elsewhere classified; R60.0 Localized edema
CPT/HCPCS: 11042

== ENCOUNTER 2019-09-07 09:14 | Outpatient (RCR) | payer MEDICARE, MEDICAID, SELFPAY ==
[2019-09-03 00:31] VITALS: BP 113/64; PULSE 59; RESP 22; TEMP 35.8
[2019-09-07 09:24] VITALS: BP 121/65; PULSE 62; RESP 22; TEMP 35.5; BMI 71.4
--- NOTE | 2019-09-07 10:31 | PCM.WC.PN ---
(1) Ulcer of right lower extremity with fat layer exposed Status: Chronic Current Visit: Yes Code(s): L97.912 - Non-pressure chronic ulcer of unspecified part of right lower leg with fat layer exposed (2) Morbid obesity Status: Chronic Current Visit: Yes Code(s): E66.01 - Morbid (severe) obesity due to excess calories (3) Lymphedema Status: Chronic Current Visit: Yes Code(s): I89.0 - Lymphedema, not elsewhere classified Comment: Secondary to chronic venous insufficieny of Bilateral Lower Extremity. Type of Wound Date of Service: 09/07/19 Chief Complaint: Right lower extremity ulcers. History of Wound: Ms. Molina is a 48-year-old who was referred to the wound center by her primary care physician due to right lower extremity ulcers. Per patient, started out with redness pain and swelling for which she was managed for cellulitis. Subsequently developed ulcerations in her calf and enciso. She feels well other at this time and denies chills, fever, nausea, vomitting or change in her bowel habit. Progress of Wound: Improving. No new concerns at this time. - Physical Exam Vital Signs Temp Pulse Resp BP 96 F L 62 22 H 121/65 H 09/07/19 09:24 12 09:24 09/07/19 09:24 09/07/19 09:24 General: Alert, Oriented x3, Cooperative, No apparent distress HEENT: Atraumatic, Normocephalic Oral: Moist Mucosa Neck: Supple Lungs: Normal air movement Abdomen: Non Tender, Obese Extremities: No cyanosis, Edema Skin: Ulcer/ Wound Wound Measurements and Assessment WC - Nurse 1 - General Ulcer Measurement Start: 09/07/19 09:23 Freq: Status: Active Protocol: Activity Type Activity Date Activity User E-Sign Co-Sign Detail Recorded Client Recorded Date Recorded By Document 09/07/19 09:24 [facility] [id number] 09/07/19 09:31 [facility] 09/07/19 09:24 Wound Center Nurse 1 [Ulcer Assessment] #15 R Lat Knee -Combined with other wound No -Current Size (cm) - Length 0.2 -Current Size (cm) - Width 0.8 -Current Size (cm) - Depth 0.1 -Total Square Cm 0.16 -Photo Taken No -Epithelialization Medium 34-66% -Tunneling No -Undermining/Tunneling No -Circular Undermining No -Exudate Amt None Present -Wound Margin Flat & Intact -Granulation Amt None Present (0 %) -Slough/Fibrin Yes -Necrosis Amt Small (1-33%) -Necrotic Tissue Type Adherent Slough -Texture (Martha-wound Skin Appearance) Assessed, Scarring -Moisture (Martha-wound Skin Appearance Assessed,Dry/ ) Scaly -Color (Martha-wound Skin Appearance) Assessed -Temperature (Martha-wound Skin No Abnormality Appearance) (Pt Warm) -Tenderness on Palpation (Martha-wound No Skin Appearance) -Ulcer Cleansing Rinsed/ Irrigated with Saline -Foul Odor after Cleansing No -Anesthetic Used 5% Lidocaine Gel [Edema Assessment] -Lower Limb Edema Present Yes -Right Calf (cm) 81.5 -Right Ankle (cm) 35 -Left Calf (cm) 66 -Left Ankle (cm) 29.9 WC - Nurse 2 - General Ulcer CM Notes Start: 09/07/19 09:23 Freq: Status: Active Protocol: Activity Type Activity Date Activity User E-Sign Co-Sign Detail Recorded Client Recorded Date Recorded By Document 09/07/19 09:50 MW [id number] 09/07/19 09:56 MW 09/07/19 09:50 Wound Center Nurse 2 [Procedure/Treatment] #15 R Lat Knee -Time 09:52 -Correct Patient Yes -Correct Side, Site, Position Yes -Correct Procedure Yes -Procedure Performed Yes -Type of Procedure Debridement -Clinical Debridement Subcutaneous -Post Debridement Size (cm) - Length 0.2 -Post Debridement Size (cm) - Width 0.8 -Post Debridement Size (cm) - Depth 0.1 -Total Square Cm 0.16 -Wound/Ulcer Outcome Not Healed -Ulcer Cleansing Rinsed/ Irrigated with Saline -Foul Odor after Cleansing No -Bioengineered Tissue No -Bleeding Controlled with Pressure -Offloading No -Treatment Response Procedure Tolerated Well [See Physician Procedure note for Specifics] Pain Scale: 0-10 Numeric [Pain] -Is Patient Pain Free? Yes Musculoskeletal: No Muscle Wasting Neurological: Cranial nerves II-XII grossly intact Psych/Mental Status: Normal Affect Debridement Note Post-Debridement Measurements/Treatment WC - Nurse 2 - General Ulcer CM Notes Start: 09/07/19 09:23 Freq: Status: Active Protocol: Activity Type Activity Date Activity User E-Sign Co-Sign Detail Recorded Client Recorded Date Recorded By Document 09/07/19 09:50 MW [id number] 09/07/19 09:56 MW 09/07/19 09:50 Wound Center Nurse 2 #15 R Lat Knee -Time 09:52 -Correct Patient Yes -Correct Side, Site, Position Yes -Correct Procedure Yes -Procedure Performed Yes -Type of Procedure Debridement -Clinical Debridement Subcutaneous -Post Debridement Size (cm) - Length 0.2 -Post Debridement Size (cm) - Width 0.8 -Post Debridement Size (cm) - Depth 0.1 -Total Square Cm 0.16 -Wound/Ulcer Outcome Not Healed -Ulcer Cleansing Rinsed/ Irrigated with Saline -Foul Odor after Cleansing No -Bioengineered Tissue No -Bleeding Controlled with Pressure -Offloading No -Treatment Response Procedure Tolerated Well Pain Scale: 0-10 Numeric Is Patient Pain Free? Yes Wound debrided: Right lateral knee Type of Debridement: Excisional debridement Anesthesia Used: 4% Lidocaine Solution Depth: Down to and including healthy tissue, in the subcutaneous layer Percentage of wound debrided: 100 Instrument Used: 3mm curette Tissue Removed: Slough and devitalized tissue Severity: Fat Layer Exposed Amount of bleeding with debridement: Mild Bleeding Controlled with: Pressure Patient tolerated procedure well Assessment/Plan Active Problems Lymphedema (Chronic) Secondary to chronic venous insufficieny of Bilateral Lower Extremity. Ulcer of right lower extremity with fat layer exposed (Chronic) Morbid obesity (Chronic) Assessment: Same as above. Plan: Debridement done as documented above. Procedure was well-tolerated. Bilateral lower extremities ulcers stay largely healed. Lateral knee ulcer is improving. Continue Pomogran daily to right lateral knee and aquacel with ABD to right posterior leg.. Daily isreal wraps for edema management for now. Did not tolerate 3M wraps and Isreal wrap not sufficiently managing edema. Compliance with lymphedema pump strongly recommended. Elevate lower extremity when seated and in bed. Avoid idle standing and exercise as tolerated. Also advised to reschedule her appointment with the lymphedema clinic. Her questions were answered and she was advised to call with any further questions or concerns. Follow-up in 1 week. This note was generated with [employer] software. It may contain incorrect words, spelling, and punctuation that were not noted in checking the note before signing. Code Visit 111xxx-113xx: 64126 [place] subq tissue 20 sq cm/<
== END 2019-10-03 23:59 ==
LOC: WC 09:14
PROVIDERS: Family Provider Family Medicine; PCP Family Medicine; Visit Provider Internal Medicine
DX: I87.2 Venous insufficiency (chronic) (peripheral) (principal); E66.01 Morbid (severe) obesity due to excess calories; I89.0 Lymphedema, not elsewhere classified; L97.812 Non-pressure chronic ulcer of other part of right lower leg with fat layer exposed; Z68.45 Body mass index [BMI] 70 or greater, adult
CPT/HCPCS: 11042

== ENCOUNTER 2019-11-02 10:15 | Outpatient (RCR) | payer MEDICARE, MEDICAID, SELFPAY ==
[2019-10-04 00:27] VITALS: BP 121/65; PULSE 62; RESP 22; TEMP 35.5
[2019-10-19 10:01] VITALS: BP 134/87; PULSE 56; RESP 20; TEMP 35.2; BMI 71.4
--- NOTE | 2019-10-19 11:03 | HP.PCM_ITS ---
(1) Ulcer of right lower extremity with fat layer exposed Status: Acute Current Visit: Yes Code(s): L97.912 - Non-pressure chronic ulcer of unspecified part of right lower leg with fat layer exposed (2) Morbid obesity Status: Chronic Current Visit: Yes Code(s): E66.01 - Morbid (severe) obesity due to excess calories (3) Lymphedema Status: Chronic Current Visit: Yes Code(s): I89.0 - Lymphedema, not elsewhere classified Comment: Secondary to chronic venous insufficieny of Bilateral Lower Extremity. History of Present Illness Date of Service: 10/19/19 Chief Complaint: Right lower extremity ulcers. History of Wound: Ms. Molina is a 49-year-old well known to the wound center. Last seen here over a month ago for a right lateral knee ulcer whch has now healed. She presents today with new right lower extremity ulcers secondary to right lower extremity cellulitis. S/P hospital admission. Doing well post discharge. She has completed her course of antibiotics and denies chills fever, nausea or vomiting. Past Medical History Past Medical History: Chronic Problems Lymphedema (Chronic) Secondary to chronic venous insufficieny of Bilateral Lower Extremity. Secondary lymphedema (Chronic) Trochanteric bursitis of left hip (Chronic) Sacroiliitis (Chronic) Sacrococcygeal disorders, not elsewhere classified (Chronic) Morbid obesity (Chronic) Bilateral lower extremity edema (Chronic) Ulcer of left lower extremity with fat layer exposed (Chronic) Open wound of second toe of left foot (Chronic) Traumatic, Penetrating. Ulcer of right heel (Chronic) Abscess of left lower leg (Chronic) Left lower extremity ulcer s/p surgical I and D with fat layer exposed. PAF (paroxysmal atrial fibrillation) (Chronic) HTN (hypertension) (Chronic) HLD (hyperlipidemia) (Chronic) Anxiety and depression (Chronic) CKD (chronic kidney disease), stage III (Chronic) Facet arthropathy, cervical (Chronic) Degenerative disc disease, cervical (Chronic) Cervical spondylosis (Chronic) Surgical History: - - Hysterectomy, partial gastric bypass, cholecystectomy, appendectomy. Allergies/Adverse Reactions: Allergies amoxicillin trihydrate [From Augmentin] Allergy (Verified 04/12/19 10:43) Hives baclofen Allergy (Verified 04/12/19 10:43) Unknown gabapentin Allergy (Verified 04/12/19 10:43) Unknown Iodinated Contrast Media [CONTRASTS] Allergy (Verified 04/12/19 10:43) Anaphylaxis potassium clavulanate [From Augmentin] Allergy (Verified 04/12/19 10:43) Hives shrimp Allergy (Verified 04/12/19 10:43) Unknown valerian root Allergy (Uncoded 04/12/19 10:43) Unknown Home Medications: Ambulatory Orders Medication Instructions Recorded Furosemide [Lasix] 80 mg PO BID 08/01/14 Isosorbide Mononitrate [Imdur] 120 mg PO BID 08/01/14 Apixaban [Eliquis] 5 mg PO BID 05/07/17 Omeprazole [Prilosec] 20 mg PO LUNCH 05/07/17 Sotalol HCl [Betapace AF (Beta 80 mg PO BID 05/07/17 Bijan)] cycloBENZAPRine HCl [Flexeril] 10 mg PO TID PRN 07/13/17 Ondansetron [Zofran Odt] 4 mg PO Q8H PRN PRN #10 tablet 10/07/17 Amitriptyline HCl 25 mg PO QHS 06/08/18 Dicyclomine HCl [Bentyl] 10 mg PO 4X/DAY 06/08/18 ALPRAZolam [Xanax] 0.5 mg PO QHS PRN 07/01/18 Albuterol Inhaler [Ventolin Hfa] 2 puff INHALATION Q6H PRN PRN 11/10/18 Amlodipine [Norvasc] 10 mg PO QHS 11/10/18 Colestipol Tablet [Colestid Tablet] 3 gm PO BID 11/10/18 Meclizine HCl [Antivert] 25 mg PO TID PRN 11/10/18 Nystatin Powder [Mycostatin Powder] 1 applic TOPICAL 4X/DAY PRN PRN 11/10/18 Sertraline HCl [Zoloft] 50 mg PO QHS 11/10/18 Sumatriptan Succinate [Imitrex] 100 mg PO .X1 PRN 11/10/18 Ergocalciferol (Vitamin D2) 50,000 unit PO MOFR 03/20/19 [Vitamin D2] Spironolactone [Aldactone] 25 mg PO DAILY 03/20/19 Topiramate 100 mg PO TID 03/20/19 Clindamycin [Cleocin] 450 mg PO TID #63 cap 03/23/19 Lactobacillus Acidophilus 1 tab PO BID #14 tab 03/23/19 [Acidophilus] oxycodone-acetaminophen 5 mg-325 1 tab PO Q6H PRN #30 tab 03/25/19 mg tablet - Family History Maternal Family History: Family History (Last Updated 03/28/19 @ 13:45 by Idalia Andrews) Mother Hypertension Father Heart disease - - Patient notes a maternal family history of coronary disease, HI, passed her 50s. Paternal Family History: Family History (Last Updated 03/28/19 @ 13:45 by Idalia Andrews) Mother Hypertension Father Heart disease - - Patient notes a paternal family history of coronary disease, history of HI, passed in his 60s. Smoking Status: Never smoker Review of Systems Constitutional: Denies: Anorexia, Chills, Fever, Night Sweats Eyes: Denies: Blurred vision HEENT: Denies: Difficulty Swallowing Cardiovascular: Denies: Chest Pain, Chest Pressure Respiratory: Denies: Cough, Pleuritic Pain Gastrointestinal: Denies: Abdominal Pain, Hematemesis, Vomiting Skin: Denies: Jaundice - Physical Exam Vital Signs Temp Pulse Resp BP 95.3 F L 56 L 20 H 134/87 H 10/19/19 10:01 10/19/19 10:01 10/19/19 10:01 10/19/19 10:01 General: Alert, Oriented x3, Cooperative, No apparent distress HEENT: Atraumatic, Normocephalic Oral: Moist Mucosa Neck: Supple Lungs: Normal air movement Abdomen: Non Tender, Obese Extremities: No cyanosis, Edema Skin: Ulcer/ Wound Wound Measurements and Assessment - Nurse 1 - General Ulcer Measurement Start: 10/19/19 10:00 Freq: Status: Active Protocol: Activity Type Activity Date Activity User E-Sign Co-Sign Detail Recorded Client Recorded Date Recorded By Document 10/19/19 10:01 [id number] 10/19/19 10:09 10/19/19 10:01 Wound Center Nurse 1 [Ulcer Assessment] #17 RIGHT UPPER MEDIAL THIGH -Combined with other wound No -Current Size (cm) - Length 8 -Current Size (cm) - Width 6.8 -Current Size (cm) - Depth 0.1 -Total Square Cm 54.4 -Date of Last Picture (Recall this 10/19/19 field) -Photo Taken Yes -Epithelialization None Present -Tunneling No -Undermining/Tunneling No -Circular Undermining No -Exudate Amt Medium -Exudate Type Serosanguineous -Wound Margin Distinct, Outline Attached -Granulation Amt None Present (0 %) -Granulation Quality N/A -Slough/Fibrin Yes -Necrosis Amt None Present (0 %) -Necrotic Tissue Type Adherent Slough -Structure Exposed None/Limited to Skin Breakdown -Texture (Martha-wound Skin Appearance) Excoriation, Localized Edema -Moisture (Martha-wound Skin Appearance Maceration ) -Color (Amrtha-wound Skin Appearance) Erythema -Temperature (Martha-wound Skin No Abnormality Appearance) (Pt Warm) -Tenderness on Palpation (Martha-wound No Skin Appearance) -Ulcer Cleansing Rinsed/ Irrigated with Saline -Foul Odor after Cleansing No -Anesthetic Used 4% Lidocaine Solution [Edema Assessment] -Lower Limb Edema Present Yes -Right Calf (cm) 80 -Right Ankle (cm) 36.8 -Left Calf (cm) 61.2 -Left Ankle (cm) 34 WC - Nurse 2 - General Ulcer CM Notes Start: 10/19/19 10:00 Freq: Status: Active Protocol: Activity Type Activity Date Activity User E-Sign Co-Sign Detail Recorded Client Recorded Date Recorded By Document 10/19/19 10:56 MW [id number] 10/19/19 11:01 MW 10/19/19 10:56 Wound Center Nurse 2 [Procedure/Treatment] #18 RIGHT POSTERIOR -Time 11:00 -Correct Patient Yes -Correct Side, Site, Position Yes -Correct Procedure Yes -Procedure Performed Yes -Type of Procedure Debridement -Clinical Debridement Subcutaneous -Post Debridement Size (cm) - Length 8.0 -Post Debridement Size (cm) - Width 9.0 -Post Debridement Size (cm) - Depth 0.1 -Total Square Cm 72.00 -Wound/Ulcer Outcome Not Healed -Ulcer Cleansing Rinsed/ Irrigated with Saline -Foul Odor after Cleansing No -Bioengineered Tissue No -Bleeding Controlled with Pressure -Offloading No -Treatment Response Procedure Tolerated Well #17 RIGHT UPPER MEDIAL THIGH -Time 10:56 -Correct Patient Yes -Correct Side, Site, Position Yes -Correct Procedure Yes -Procedure Performed Yes -Type of Procedure Debridement -Clinical Debridement Selective -Post Debridement Size (cm) - Length 9.0 -Post Debridement Size (cm) - Width 14.0 -Post Debridement Size (cm) - Depth 0.1 -Total Square Cm 126.00 -Wound/Ulcer Outcome Not Healed -Ulcer Cleansing Rinsed/ Irrigated with Saline -Foul Odor after Cleansing No -Bioengineered Tissue No -Bleeding Controlled with Pressure -Offloading No -Treatment Response Procedure Tolerated Well [See Physician Procedure note for Specifics] Pain Scale: 0-10 Numeric [Pain] -Is Patient Pain Free? Yes Musculoskeletal: No Muscle Wasting Neurological: Cranial nerves II-XII grossly intact Psych/Mental Status: Normal Affect Debridement Note Post-Debridement Measurements/Treatment WC - Nurse 2 - General Ulcer CM Notes Start: 10/19/19 10:00 Freq: Status: Active Protocol: Activity Type Activity Date Activity User E-Sign Co-Sign Detail Recorded Client Recorded Date Recorded By Document 10/19/19 10:56 MW [id number] 10/19/19 11:01 MW 10/19/19 10:56 Wound Center Nurse 2 #18 RIGHT POSTERIOR -Time 11:00 -Correct Patient Yes -Correct Side, Site, Position Yes -Correct Procedure Yes -Procedure Performed Yes -Type of Procedure Debridement -Clinical Debridement Subcutaneous -Post Debridement Size (cm) - Length 8.0 -Post Debridement Size (cm) - Width 9.0 -Post Debridement Size (cm) - Depth 0.1 -Total Square Cm 72.00 -Wound/Ulcer Outcome Not Healed -Ulcer Cleansing Rinsed/ Irrigated with Saline -Foul Odor after Cleansing No -Bioengineered Tissue No -Bleeding Controlled with Pressure -Offloading No -Treatment Response Procedure Tolerated Well #17 RIGHT UPPER MEDIAL THIGH -Time 10:56 -Correct Patient Yes -Correct Side, Site, Position Yes -Correct Procedure Yes -Procedure Performed Yes -Type of Procedure Debridement -Clinical Debridement Selective -Post Debridement Size (cm) - Length 9.0 -Post Debridement Size (cm) - Width 14.0 -Post Debridement Size (cm) - Depth 0.1 -Total Square Cm 126.00 -Wound/Ulcer Outcome Not Healed -Ulcer Cleansing Rinsed/ Irrigated with Saline -Foul Odor after Cleansing No -Bioengineered Tissue No -Bleeding Controlled with Pressure -Offloading No -Treatment Response Procedure Tolerated Well Pain Scale: 0-10 Numeric Is Patient Pain Free? Yes Wound debrided: Right Medial Thigh Type of Debridement: Selective debridement Anesthesia Used: 4% Lidocaine Solution Depth: Down to and including healthy tissue Percentage of wound debrided: 100 Instrument Used: 7mm curette Tissue Removed: Slough and devitalized tissue Severity: Limited To Skin Breakdown Bleeding Controlled with: Pressure Patient tolerated procedure well - Additional Wound Wound debrided: Right Leg ( Posteromedial ) Type of Debridement: Excisional debridement Anesthesia Used: 4% Lidocaine Solution Depth: Down to and including healthy tissue, in the subcutaneous layer Percentage of wound debrided: 100 Instrument Used: 7mm curette Tissue Removed: Slough and devitalized tissue Severity: Limited To Skin Breakdown Amount of bleeding with debridement: Mild Bleeding Controlled with: Pressure Patient tolerated procedure: Patient tolerated procedure well Assessment/Plan Active Problems Lymphedema (Chronic) Secondary to chronic venous insufficieny of Bilateral Lower Extremity. Ulcer of right lower extremity with fat layer exposed (Acute) Morbid obesity (Chronic) Assessment: Same as above. Plan: Debridement done as documented above. Procedure was well-tolerated. Silveecel daily to both ulcers. Change 3 - 4 x daily depending on drainage. Daily isreal wraps for edema management. Did not tolerate 3M wraps and Isreal wrap not sufficiently managing edema. Compliance with lymphedema pump strongly recommended. Elevate lower extremity when seated and in bed. Avoid idle standing and exercise as tolerated. Follow up with lymphedema clinic. Her questions were answered and she was advised to call with any further questions or concerns. Follow-up in 1 week. This note was generated with [employer] dictation software. It may contain incorrect words, spelling, and punctuation that were not noted in checking the note before signing. Multi Select Codes - Visit Charges Office Visit/Consults: 17452 OV L3 Est - Integumentary Integumentary CPT Codes: [address] [place] subq tissue 20 sq cm/< - Selective debridement done. additional sq cm debrided. Please refer to clinical note.
[2019-10-26 10:58] VITALS: BP 107/54; PULSE 54; RESP 22; TEMP 36; BMI 71.4
--- NOTE | 2019-10-26 12:45 | PN.PCM_ITS ---
(1) Ulcer of right lower extremity with fat layer exposed Status: Acute Current Visit: Yes Code(s): L97.912 - Non-pressure chronic ulcer of unspecified part of right lower leg with fat layer exposed (2) Morbid obesity Status: Chronic Current Visit: Yes Code(s): E66.01 - Morbid (severe) obesity due to excess calories (3) Lymphedema Status: Chronic Current Visit: Yes Code(s): I89.0 - Lymphedema, not elsewhere classified Comment: Secondary to chronic venous insufficieny of Bilateral Lower Extremity. Type of Wound Date of Service: 10/26/19 Chief Complaint: Right lower extremity ulcers. History of Wound: Ms. Molina is a 49-year-old well known to the wound center. Last seen here over a month ago for a right lateral knee ulcer whch has now healed. She presents today with new right lower extremity ulcers secondary to right lower extremity cellulitis. S/P hospital admission. Doing well post discharge. She has completed her course of antibiotics and denies chills fever, nausea or vomiting. Progress of Wound: Stable. No new concerns at this time. - Physical Exam Vital Signs Temp Pulse Resp BP 96.8 F L 54 L 22 H 107/54 L 10/26/19 10:58 10/26/19 10:58 10/26/19 10:58 10/26/19 10:58 General: Alert, Oriented x3, Cooperative, No apparent distress HEENT: Atraumatic, Normocephalic Oral: Moist Mucosa Neck: Supple Lungs: Normal air movement Abdomen: Non Tender, Obese Extremities: No cyanosis, Edema Skin: Ulcer/ Wound Wound Measurements and Assessment WC - Nurse 1 - General Ulcer Measurement Start: 10/19/19 10:00 Freq: Status: Active Protocol: Activity Type Activity Date Activity User E-Sign Co-Sign Detail Recorded Client Recorded Date Recorded By Document 10/26/19 10:58 DL [id number] 10/26/19 11:09 DL 10/26/19 10:58 Wound Center Nurse 1 [Ulcer Assessment] #18 RIGHT POSTERIOR -Current Size (cm) - Length 6.6 -Current Size (cm) - Width 12 -Current Size (cm) - Depth 0.1 -Total Square Cm 79.2 -Photo Taken No -Exudate Amt Medium -Exudate Type Serosanguineous -Wound Margin Indistinct, Non -Visible -Granulation Amt Medium (34-66%) -Granulation Quality [place] -Necrosis Amt Medium (34-66%) -Necrotic Tissue Type Adherent Slough -Structure Exposed N/A -Texture (Martha-wound Skin Appearance) Localized Edema ,Scarring -Moisture (Martha-wound Skin Appearance Maceration, ) Weeping -Color (Martha-wound Skin Appearance) Erythema -Temperature (Martha-wound Skin No Abnormality Appearance) (Pt Warm) -Tenderness on Palpation (Martha-wound No Skin Appearance) -Ulcer Cleansing Wound Cleanser -Foul Odor after Cleansing No -Anesthetic Used 4% Lidocaine Solution #17 RIGHT UPPER MEDIAL THIGH -Current Size (cm) - Length 5.4 -Current Size (cm) - Width 3.3 -Current Size (cm) - Depth 0.1 -Total Square Cm 17.82 -Photo Taken No -Exudate Amt Small -Exudate Type Serosanguineous -Wound Margin Indistinct, Non -Visible -Granulation Amt Large (67-100%) -Granulation Quality [place] -Necrosis Amt Small (1-33%) -Necrotic Tissue Type Adherent Slough -Structure Exposed N/A -Texture (Martha-wound Skin Appearance) Localized Edema ,Scarring -Moisture (Martha-wound Skin Appearance Dry/Scaly ) -Color (Martha-wound Skin Appearance) Rubor -Temperature (Martha-wound Skin No Abnormality Appearance) (Pt Warm) -Tenderness on Palpation (Martha-wound No Skin Appearance) -Ulcer Cleansing Wound Cleanser -Foul Odor after Cleansing No -Anesthetic Used 4% Lidocaine Solution [Edema Assessment] -Right Calf (cm) 82 -Right Ankle (cm) 35 WC - Nurse 2 - General Ulcer CM Notes Start: 10/19/19 10:00 Freq: Status: Active Protocol: Activity Type Activity Date Activity User E-Sign Co-Sign Detail Recorded Client Recorded Date Recorded By Document 10/26/19 11:24 MW [id number] 10/26/19 11:32 MW 10/26/19 11:24 Wound Center Nurse 2 [Procedure/Treatment] #18 RIGHT POSTERIOR -Time 11:25 -Correct Patient Yes -Correct Side, Site, Position Yes -Correct Procedure Yes -Procedure Performed Yes -Type of Procedure Debridement -Clinical Debridement Subcutaneous -Post Debridement Size (cm) - Length 9.0 -Post Debridement Size (cm) - Width 15 -Post Debridement Size (cm) - Depth 0.1 -Total Square Cm 135.0 -Wound/Ulcer Outcome Not Healed -Ulcer Cleansing Rinsed/ Irrigated with Saline -Foul Odor after Cleansing No -Bioengineered Tissue No -Bleeding Controlled with Pressure -Offloading No -Treatment Response Procedure Tolerated Well #17 RIGHT UPPER MEDIAL THIGH -Time 11:25 -Correct Patient Yes -Correct Side, Site, Position Yes -Correct Procedure Yes -Procedure Performed Yes -Type of Procedure Debridement -Clinical Debridement Subcutaneous -Post Debridement Size (cm) - Length 5.0 -Post Debridement Size (cm) - Width 3.0 -Post Debridement Size (cm) - Depth 0.1 -Total Square Cm 15.00 -Wound/Ulcer Outcome Not Healed -Ulcer Cleansing Rinsed/ Irrigated with Saline -Foul Odor after Cleansing No -Bioengineered Tissue No -Bleeding Controlled with Pressure -Offloading No -Treatment Response Procedure Tolerated Well [See Physician Procedure note for Specifics] Pain Scale: 0-10 Numeric [Pain] -Is Patient Pain Free? Yes Musculoskeletal: No Muscle Wasting Neurological: Cranial nerves II-XII grossly intact Psych/Mental Status: Normal Affect Debridement Note Post-Debridement Measurements/Treatment WC - Nurse 2 - General Ulcer CM Notes Start: 10/19/19 10:00 Freq: Status: Active Protocol: Activity Type Activity Date Activity User E-Sign Co-Sign Detail Recorded Client Recorded Date Recorded By Document 10/19/19 10:56 MW [id number] 10/19/19 11:01 MW Document 10/26/19 11:24 MW [id number] 10/26/19 11:32 MW 10/19/19 10/26/19 10:56 11:24 Wound Center Nurse 2 #18 RIGHT POSTERIOR -Time 11:00 11:25 -Correct Patient Yes Yes -Correct Side, Site, Position Yes Yes -Correct Procedure Yes Yes -Procedure Performed Yes Yes -Type of Procedure Debridement Debridement -Clinical Debridement Subcutaneous Subcutaneous -Post Debridement Size (cm) - Length 8.0 9.0 -Post Debridement Size (cm) - Width 9.0 15 -Post Debridement Size (cm) - Depth 0.1 0.1 -Total Square Cm 72.00 135.0 -Wound/Ulcer Outcome Not Healed Not Healed -Ulcer Cleansing Rinsed/ Rinsed/ Irrigated with Irrigated with Saline Saline -Foul Odor after Cleansing No No -Bioengineered Tissue No No -Bleeding Controlled with Pressure Pressure -Offloading No No -Treatment Response Procedure Procedure Tolerated Well Tolerated Well #17 RIGHT UPPER MEDIAL THIGH -Time 10:56 11:25 -Correct Patient Yes Yes -Correct Side, Site, Position Yes Yes -Correct Procedure Yes Yes -Procedure Performed Yes Yes -Type of Procedure Debridement Debridement -Clinical Debridement Selective Subcutaneous -Post Debridement Size (cm) - Length 9.0 5.0 -Post Debridement Size (cm) - Width 14.0 3.0 -Post Debridement Size (cm) - Depth 0.1 0.1 -Total Square Cm 126.00 15.00 -Wound/Ulcer Outcome Not Healed Not Healed -Ulcer Cleansing Rinsed/ Rinsed/ Irrigated with Irrigated with Saline Saline -Foul Odor after Cleansing No No -Bioengineered Tissue No No -Bleeding Controlled with Pressure Pressure -Offloading No No -Treatment Response Procedure Procedure Tolerated Well Tolerated Well Pain Scale: 0-10 Numeric Is Patient Pain Free? Yes Yes Wound debrided: Right Thigh Type of Debridement: Excisional debridement Depth: Down to and including healthy tissue, in the subcutaneous layer Percentage of wound debrided: 100 Instrument Used: 7mm curette Tissue Removed: Slough and devitalized tissue Severity: Fat Layer Exposed Amount of bleeding with debridement: Mild Bleeding Controlled with: Pressure Patient tolerated procedure well - Additional Wound Wound debrided: Right posterior leg Type of Debridement: Excisional debridement Anesthesia Used: 4% Lidocaine Solution Depth: Down to and including healthy tissue, in the subcutaneous layer Percentage of wound debrided: 100 Instrument Used: 7mm curette Tissue Removed: Slough and devitalized tissue Severity: Fat Layer Exposed Amount of bleeding with debridement: Mild Bleeding Controlled with: Pressure Patient tolerated procedure: Patient tolerated procedure well Assessment/Plan Active Problems Lymphedema (Chronic) Secondary to chronic venous insufficieny of Bilateral Lower Extremity. Ulcer of right lower extremity with fat layer exposed (Acute) Morbid obesity (Chronic) Assessment: Same as above. Plan: Debridement done as documented above. Procedure was well-tolerated. Continue [place] daily to both ulcers. Change 3 - 4 x daily depending on drainage. Daily isreal wraps for edema management. Did not tolerate 3M wraps and Isreal wrap not sufficiently managing edema. Compliance with lymphedema pump strongly recommended. Increase to 40mmHg. Elevate lower extremity when seated and in bed. Avoid idle standing and exercise as tolerated. Follow up with lymphedema clinic. Her questions were answered and she was advised to call with any further questions or concerns. Follow-up in 1 week. This note was generated with [employer] software. It may contain incorrect words, spelling, and punctuation that were not noted in checking the note before signing. Code Visit 111xxx-113xx: [address]4048 [place] subq tissue 20 sq cm/<
[2019-11-02 10:57] VITALS: BP 121/68; PULSE 62; RESP 20; TEMP 35.4; BMI 71.4
--- NOTE | 2019-11-02 12:35 | PCM.WC.PN ---
(1) Ulcer of right lower extremity with fat layer exposed Status: Acute Current Visit: Yes Code(s): L97.912 - Non-pressure chronic ulcer of unspecified part of right lower leg with fat layer exposed (2) Morbid obesity Status: Chronic Current Visit: Yes Code(s): E66.01 - Morbid (severe) obesity due to excess calories (3) Lymphedema Status: Chronic Current Visit: Yes Code(s): I89.0 - Lymphedema, not elsewhere classified Comment: Secondary to chronic venous insufficieny of Bilateral Lower Extremity. Type of Wound Date of Service: 11/02/19 Chief Complaint: Right lower extremity ulcers. History of Wound: Ms. Molina is a 49-year-old well known to the wound center. Last seen here over a month ago for a right lateral knee ulcer whch has now healed. She presents today with new right lower extremity ulcers secondary to right lower extremity cellulitis. S/P hospital admission. Doing well post discharge. She has completed her course of antibiotics and denies chills fever, nausea or vomiting. Progress of Wound: She reports increased pain in the right posterior leg ulcer. - Physical Exam Vital Signs Temp Pulse Resp BP 95.8 F L 62 20 H 121/68 H 11/02/19 10:57 11/02/19 10:57 11/02/19 10:57 11/02/19 10:57 General: Alert, Oriented x3, Cooperative, No apparent distress HEENT: Atraumatic, Normocephalic Oral: Moist Mucosa Neck: Supple Lungs: Normal air movement Abdomen: Non Tender, Obese Extremities: No cyanosis, Edema Skin: Ulcer/ Wound Wound Measurements and Assessment WC - Nurse 1 - General Ulcer Measurement Start: 10/19/19 10:00 Freq: Status: Active Protocol: Activity Type Activity Date Activity User E-Sign Co-Sign Detail Recorded Client Recorded Date Recorded By Document 11/02/19 10:57 [id number] 11/02/19 11:02 11/02/19 10:57 Wound Center Nurse 1 [Ulcer Assessment] #18 RIGHT POSTERIOR -Combined with other wound No -Current Size (cm) - Length 9 -Current Size (cm) - Width 15 -Current Size (cm) - Depth 0.1 -Total Square Cm 135 -Photo Taken No -Epithelialization None Present -Tunneling No -Undermining/Tunneling No -Circular Undermining No -Granulation Quality N/A -Structure Exposed N/A -Texture (Martha-wound Skin Appearance) Localized Edema -Moisture (Martha-wound Skin Appearance Weeping ) -Color (Martha-wound Skin Appearance) Erythema -Temperature (Martha-wound Skin No Abnormality Appearance) (Pt Warm) -Tenderness on Palpation (Martha-wound Yes Skin Appearance) -Ulcer Cleansing Rinsed/ Irrigated with Saline -Foul Odor after Cleansing No -Anesthetic Used 5% Lidocaine Gel #17 RIGHT UPPER MEDIAL THIGH -Combined with other wound No -Current Size (cm) - Length 0.1 -Current Size (cm) - Width 0.1 -Current Size (cm) - Depth 0.1 -Total Square Cm 0.01 -Photo Taken No -Epithelialization None Present -Tunneling No -Undermining/Tunneling No -Circular Undermining No -Texture (Martha-wound Skin Appearance) Localized Edema -Moisture (Martha-wound Skin Appearance Dry/Scaly ) -Color (Martha-wound Skin Appearance) Erythema -Temperature (Martha-wound Skin No Abnormality Appearance) (Pt Warm) -Tenderness on Palpation (Martha-wound Yes Skin Appearance) -Ulcer Cleansing Rinsed/ Irrigated with Saline -Foul Odor after Cleansing No -Anesthetic Used 5% Lidocaine Gel WC - Nurse 2 - General Ulcer CM Notes Start: 10/19/19 10:00 Freq: Status: Active Protocol: Activity Type Activity Date Activity User E-Sign Co-Sign Detail Recorded Client Recorded Date Recorded By Document 11/02/19 11:23 MW [id number] 11/02/19 11:28 MW 11/02/19 11:23 Wound Center Nurse 2 [Procedure/Treatment] #18 RIGHT POSTERIOR -Time 11:23 -Correct Patient Yes -Correct Side, Site, Position Yes -Correct Procedure Yes -Procedure Performed Yes -Type of Procedure Debridement -Clinical Debridement Subcutaneous -Post Debridement Size (cm) - Length 8.0 -Post Debridement Size (cm) - Width 12.0 -Post Debridement Size (cm) - Depth 0.1 -Total Square Cm 96.00 -Wound/Ulcer Outcome Not Healed -Ulcer Cleansing Rinsed/ Irrigated with Saline -Foul Odor after Cleansing No -Bioengineered Tissue No -Bleeding Controlled with Pressure -Offloading No -Treatment Response Procedure Tolerated Well #17 RIGHT UPPER MEDIAL THIGH -Time 11:24 -Correct Patient Yes -Correct Side, Site, Position Yes -Correct Procedure Yes -Procedure Performed Yes -Type of Procedure Debridement -Clinical Debridement Subcutaneous -Post Debridement Size (cm) - Length 0.1 -Post Debridement Size (cm) - Width 0.1 -Post Debridement Size (cm) - Depth 0.1 -Total Square Cm 0.01 -Wound/Ulcer Outcome Not Healed -Ulcer Cleansing Rinsed/ Irrigated with Saline -Foul Odor after Cleansing No -Bioengineered Tissue No -Bleeding Controlled with Pressure -Offloading No -Treatment Response Procedure Tolerated Well [See Physician Procedure note for Specifics] Pain Scale: 0-10 Numeric [Pain] -Is Patient Pain Free? Yes Musculoskeletal: No Muscle Wasting Neurological: Cranial nerves II-XII grossly intact Psych/Mental Status: Normal Affect Debridement Note Post-Debridement Measurements/Treatment WC - Nurse 2 - General Ulcer CM Notes Start: 10/19/19 10:00 Freq: Status: Active Protocol: Activity Type Activity Date Activity User E-Sign Co-Sign Detail Recorded Client Recorded Date Recorded By Document 10/19/19 10:56 MW [id number] 10/19/19 11:01 MW Document 10/26/19 11:24 MW [id number] 10/26/19 11:32 MW Document 11/02/19 11:23 MW [id number] 11/02/19 11:28 MW 10/19/19 10/26/19 11/02/19 10:56 11:24 11:23 Wound Center Nurse 2 #18 RIGHT POSTERIOR -Time 11:00 11:25 11:23 -Correct Patient Yes Yes Yes -Correct Side, Site, Position Yes Yes Yes -Correct Procedure Yes Yes Yes -Procedure Performed Yes Yes Yes -Type of Procedure Debridement Debridement Debridement -Clinical Debridement Subcutaneous Subcutaneous Subcutaneous -Post Debridement Size (cm) - Length 8.0 9.0 8.0 -Post Debridement Size (cm) - Width 9.0 15 12.0 -Post Debridement Size (cm) - Depth 0.1 0.1 0.1 -Total Square Cm 72.00 135.0 96.00 -Wound/Ulcer Outcome Not Healed Not Healed Not Healed -Ulcer Cleansing Rinsed/ Rinsed/ Rinsed/ Irrigated with Irrigated with Irrigated with Saline Saline Saline -Foul Odor after Cleansing No No No -Bioengineered Tissue No No No -Bleeding Controlled with Pressure Pressure Pressure -Offloading No No No -Treatment Response Procedure Procedure Procedure Tolerated Well Tolerated Well Tolerated Well #17 RIGHT UPPER MEDIAL THIGH -Time 10:56 11:25 11:24 -Correct Patient Yes Yes Yes -Correct Side, Site, Position Yes Yes Yes -Correct Procedure Yes Yes Yes -Procedure Performed Yes Yes Yes -Type of Procedure Debridement Debridement Debridement -Clinical Debridement Selective Subcutaneous Subcutaneous -Post Debridement Size (cm) - Length 9.0 5.0 0.1 -Post Debridement Size (cm) - Width 14.0 3.0 0.1 -Post Debridement Size (cm) - Depth 0.1 0.1 0.1 -Total Square Cm 126.00 15.00 0.01 -Wound/Ulcer Outcome Not Healed Not Healed Not Healed -Ulcer Cleansing Rinsed/ Rinsed/ Rinsed/ Irrigated with Irrigated with Irrigated with Saline Saline Saline -Foul Odor after Cleansing No No No -Bioengineered Tissue No No No -Bleeding Controlled with Pressure Pressure Pressure -Offloading No No No -Treatment Response Procedure Procedure Procedure Tolerated Well Tolerated Well Tolerated Well Pain Scale: 0-10 Numeric Is Patient Pain Free? Yes Yes Yes Wound debrided: Right leg (posterior) Type of Debridement: Excisional debridement Anesthesia Used: 4% Lidocaine Solution Depth: Down to and including healthy tissue, in the subcutaneous layer Percentage of wound debrided: 100 Instrument Used: 7mm curette Tissue Removed: Slough and devitalized tissue Severity: Fat Layer Exposed Amount of bleeding with debridement: Mild Bleeding Controlled with: Pressure Patient tolerated procedure well Assessment/Plan Active Problems Lymphedema (Chronic) Secondary to chronic venous insufficieny of Bilateral Lower Extremity. Ulcer of right lower extremity with fat layer exposed (Acute) Morbid obesity (Chronic) Assessment: Same as above. Plan: Debridement done as documented above. Procedure was well-tolerated. Continue Silvercel daily to posterior right leg ulcer. Change 3 - 4 x daily depending on drainage. Daily isreal wraps for edema management. Did not tolerate 3M wraps and Isreal wrap not sufficiently managing edema. Compliance with lymphedema pump strongly recommended. Increase to 40mmHg. Elevate lower extremity when seated and in bed. Avoid idle standing and exercise as tolerated. Follow up with lymphedema clinic. Prescription for doxycycline given due to significant pain. Patient states that she did well on doxycycline during her most recent episode of cellulitis. Her questions were answered and she was advised to call with any further questions or concerns. She was also advised to go to the emergency room if pain worsens. She expressed understanding. Follow-up in 1 week. This note was generated with [employer] dictation software. It may contain incorrect words, spelling, and punctuation that were not noted in checking the note before signing. Code Visit 111xxx-113xx: 39542 [place] subq tissue 20 sq cm/<
== END 2019-11-03 23:59 ==
LOC: WC 10:15
PROVIDERS: Family Provider Family Medicine; PCP Family Medicine; Visit Provider Internal Medicine
DX: L97.111 Non-pressure chronic ulcer of right thigh limited to breakdown of skin (principal); L97.811 Non-pressure chronic ulcer of other part of right lower leg limited to breakdown of skin; I89.0 Lymphedema, not elsewhere classified; E66.01 Morbid (severe) obesity due to excess calories; I12.9 Hypertensive chronic kidney disease with stage 1 through stage 4 chronic kidney disease, or unspecified chronic kidney disease; I48.0 Paroxysmal atrial fibrillation; E78.5 Hyperlipidemia, unspecified; N18.3 Chronic kidney disease, stage 3 (moderate); Z79.899 Other long term (current) drug therapy; Z79.01 Long term (current) use of anticoagulants
CPT/HCPCS: 11042; 11045; 97597; 97598; 99213; G0463

== ENCOUNTER 2019-11-23 11:00 | Outpatient (RCR) | payer MEDICARE, MEDICAID, SELFPAY ==
[2019-11-04 00:31] VITALS: BP 121/68; PULSE 62; RESP 20; TEMP 35.4
[2019-11-09 11:42] VITALS: BP 120/60; PULSE 57; RESP 18; BMI 71.4
--- NOTE | 2019-11-09 12:46 | PN.PCM_ITS ---
(1) Ulcer of right lower extremity with fat layer exposed Status: Acute Current Visit: Yes Code(s): L97.912 - Non-pressure chronic ulcer of unspecified part of right lower leg with fat layer exposed (2) Lymphedema Status: Chronic Current Visit: Yes Code(s): I89.0 - Lymphedema, not elsewhere classified Comment: Secondary to chronic venous insufficieny of Bilateral Lower Extremity. (3) Morbid obesity Status: Chronic Current Visit: Yes Code(s): E66.01 - Morbid (severe) obesity due to excess calories Type of Wound Date of Service: 11/09/19 Chief Complaint: Right lower extremity ulcers. History of Wound: Ms. Molina is a 49-year-old well known to the wound center. Last seen here over a month ago for a right lateral knee ulcer whch has now healed. She presents today with new right lower extremity ulcers secondary to right lower extremity cellulitis. S/P hospital admission. Doing well post discharge. She has completed her course of antibiotics and denies chills fever, nausea or vomiting. Progress of Wound: No significant change. Still unable to get home healthcare to help with wound care at home. Worsening lower extremity swelling. - Physical Exam Vital Signs Temp Pulse Resp BP 95.8 F L 57 L 18 120/60 11/04/19 00:31 11/09/19 11:42 11/09/19 11:42 11/09/19 11:42 General: Alert, Oriented x3, Cooperative, No apparent distress HEENT: Atraumatic, Normocephalic Oral: Moist Mucosa Neck: Supple Lungs: Normal air movement Extremities: No cyanosis, Edema Skin: Ulcer/ Wound Wound Measurements and Assessment WC - Nurse 1 - General Ulcer Measurement Start: 11/09/19 11:42 Freq: Status: Active Protocol: Activity Type Activity Date Activity User E-Sign Co-Sign Detail Recorded Client Recorded Date Recorded By Document 11/09/19 11:42 [facility] [id number] 11/09/19 11:53 [facility] 11/09/19 11:42 Wound Center Nurse 1 [Ulcer Assessment] #18 RIGHT POSTERIOR -Combined with other wound No -Current Size (cm) - Length 9.5 -Current Size (cm) - Width 11 -Current Size (cm) - Depth 0.1 -Total Square Cm 104.5 -Photo Taken No -Epithelialization None Present -Tunneling No -Undermining/Tunneling No -Circular Undermining No -Wound Margin Flat & Intact -Granulation Amt Medium (34-66%) -Granulation Quality Red -Slough/Fibrin Yes -Necrosis Amt Medium (34-66%) -Necrotic Tissue Type Adherent Slough -Texture (Martha-wound Skin Appearance) Assessed, Scarring -Moisture (Martha-wound Skin Appearance Assessed, ) Weeping,Dry/ Scaly -Color (Martha-wound Skin Appearance) Assessed, Erythema -Temperature (Martha-wound Skin No Abnormality Appearance) (Pt Warm) -Tenderness on Palpation (Martha-wound No Skin Appearance) -Ulcer Cleansing soapy water -Foul Odor after Cleansing No -Anesthetic Used 4% Lidocaine Solution #17 RIGHT UPPER MEDIAL THIGH -Combined with other wound No -Current Size (cm) - Length 0.1 -Current Size (cm) - Width 0.1 -Current Size (cm) - Depth 0.1 -Total Square Cm 0.01 -Epithelialization Large 67-100% [Edema Assessment] -Lower Limb Edema Present Yes -Right Calf (cm) 78 -Right Ankle (cm) 35 -Left Calf (cm) 62 -Left Ankle (cm) 31.5 WC - Nurse 2 - General Ulcer CM Notes Start: 11/09/19 11:42 Freq: Status: Active Protocol: Activity Type Activity Date Activity User E-Sign Co-Sign Detail Recorded Client Recorded Date Recorded By Document 11/09/19 12:17 MW [id number] 11/09/19 12:22 MW 11/09/19 12:17 Wound Center Nurse 2 [Procedure/Treatment] #18 RIGHT POSTERIOR -Time 12:17 -Correct Patient Yes -Correct Side, Site, Position Yes -Correct Procedure Yes -Procedure Performed Yes -Type of Procedure Debridement -Clinical Debridement Subcutaneous -Post Debridement Size (cm) - Length 8.5 -Post Debridement Size (cm) - Width 11.5 -Post Debridement Size (cm) - Depth 0.1 -Total Square Cm 97.75 -Wound/Ulcer Outcome Not Healed -Ulcer Cleansing Rinsed/ Irrigated with Saline -Foul Odor after Cleansing No -Bioengineered Tissue No -Bleeding Controlled with Pressure -Offloading No -Treatment Response Procedure Tolerated Well #17 RIGHT UPPER MEDIAL THIGH -Time 12:20 -Correct Patient Yes -Correct Side, Site, Position Yes -Correct Procedure Yes -Procedure Performed No -Post Debridement Size (cm) - Length 0 -Post Debridement Size (cm) - Width 0 -Post Debridement Size (cm) - Depth 0 -Total Square Cm 0 -Wound/Ulcer Outcome Healed- Epithelialized [See Physician Procedure note for Specifics] Pain Scale: 0-10 Numeric [Pain] -Is Patient Pain Free? Yes Musculoskeletal: No Muscle Wasting Neurological: Cranial nerves II-XII grossly intact Psych/Mental Status: Normal Affect Debridement Note Post-Debridement Measurements/Treatment WC - Nurse 2 - General Ulcer CM Notes Start: 11/09/19 11:42 Freq: Status: Active Protocol: Activity Type Activity Date Activity User E-Sign Co-Sign Detail Recorded Client Recorded Date Recorded By Document 11/09/19 12:17 MW [id number] 11/09/19 12:22 MW 11/09/19 12:17 Wound Center Nurse 2 #18 RIGHT POSTERIOR -Time 12:17 -Correct Patient Yes -Correct Side, Site, Position Yes -Correct Procedure Yes -Procedure Performed Yes -Type of Procedure Debridement -Clinical Debridement Subcutaneous -Post Debridement Size (cm) - Length 8.5 -Post Debridement Size (cm) - Width 11.5 -Post Debridement Size (cm) - Depth 0.1 -Total Square Cm 97.75 -Wound/Ulcer Outcome Not Healed -Ulcer Cleansing Rinsed/ Irrigated with Saline -Foul Odor after Cleansing No -Bioengineered Tissue No -Bleeding Controlled with Pressure -Offloading No -Treatment Response Procedure Tolerated Well #17 RIGHT UPPER MEDIAL THIGH -Time 12:20 -Correct Patient Yes -Correct Side, Site, Position Yes -Correct Procedure Yes -Procedure Performed No -Post Debridement Size (cm) - Length 0 -Post Debridement Size (cm) - Width 0 -Post Debridement Size (cm) - Depth 0 -Total Square Cm 0 -Wound/Ulcer Outcome Healed- Epithelialized Pain Scale: 0-10 Numeric Is Patient Pain Free? Yes Wound debrided: Right Leg ( Posterior ) Anesthesia Used: 4% Lidocaine Solution Depth: Down to and including healthy tissue, in the subcutaneous layer Percentage of wound debrided: 100 Instrument Used: 7mm curette Tissue Removed: Slough and devitalized tissue Severity: Fat Layer Exposed Amount of bleeding with debridement: Mild Bleeding Controlled with: Pressure Patient tolerated procedure well Assessment/Plan Active Problems Lymphedema (Chronic) Secondary to chronic venous insufficieny of Bilateral Lower Extremity. Ulcer of right lower extremity with fat layer exposed (Acute) Morbid obesity (Chronic) Assessment: Same as above. Plan: Debridement done as documented above. Procedure was well-tolerated. As above, no significant change and also has worsening lower extremity edema. There has been concern with [place] caring for self and so far she has been unable to get home health to help. She states that she is looking into getting to [place] (an assisted living facility). For now, continue Silvercel daily to posterior right leg ulcer. Change 3 - 4 x daily depending on drainage. Daily isreal wraps for edema management. Did not tolerate 3M wraps and Isreal wrap not sufficiently managing edema. Compliance with lymphedema pump strongly recommended. Increase to 40mmHg. Elevate lower extremity when seated and in bed. Avoid idle standing and exercise as tolerated. Follow up with lymphedema clinic. Her questions were answered and she was advised to call with any further questions or concerns. She was also advised to go to the emergency room if pain worsens. She expressed understanding. Follow-up in 1 week. This note was generated with [employer] dictation software. It may contain incorrect words, spelling, and punctuation that were not noted in checking the note before signing. Code Visit 111xxx-113xx: 78260 [place] subq tissue 20 sq cm/< - Additional Sq Cm debrided. Please refer to clinical note.
[2019-11-23 11:03] VITALS: BP 113/64; PULSE 65; RESP 18; BMI 71.4
--- NOTE | 2019-11-23 12:31 | PCM.WC.PN ---
(1) Ulcer of right lower extremity with fat layer exposed Status: Acute Current Visit: Yes Code(s): L97.912 - Non-pressure chronic ulcer of unspecified part of right lower leg with fat layer exposed (2) Lymphedema Status: Chronic Current Visit: Yes Code(s): I89.0 - Lymphedema, not elsewhere classified Comment: Secondary to chronic venous insufficieny of Bilateral Lower Extremity. (3) Morbid obesity Status: Chronic Current Visit: Yes Code(s): E66.01 - Morbid (severe) obesity due to excess calories Type of Wound Date of Service: 11/23/19 Chief Complaint: Right lower extremity ulcers. History of Wound: Ms. Molina is a 49-year-old well known to the wound center. Last seen here over a month ago for a right lateral knee ulcer whch has now healed. She presents today with new right lower extremity ulcers secondary to right lower extremity cellulitis. S/P hospital admission. Doing well post discharge. She has completed her course of antibiotics and denies chills fever, nausea or vomiting. Progress of Wound: No significant change. Still unable to get home healthcare to help with wound care at home. Lower extremity swelling with some skin breakdown noted. - Physical Exam Vital Signs Temp Pulse Resp BP 95.8 F L 65 18 113/64 11/04/19 00:31 11/23/19 11:03 11/23/19 11:03 11/23/19 11:03 General: Alert, Oriented x3, Cooperative, No apparent distress HEENT: Atraumatic, Normocephalic Oral: Moist Mucosa Neck: Supple Lungs: Normal air movement Abdomen: Obese Extremities: No cyanosis, Edema Skin: Ulcer/ Wound Wound Measurements and Assessment WC - Nurse 1 - General Ulcer Measurement Start: 11/09/19 11:42 Freq: Status: Active Protocol: Activity Type Activity Date Activity User E-Sign Co-Sign Detail Recorded Client Recorded Date Recorded By Document 11/23/19 11:03 [facility] [id number] 11/23/19 11:14 [facility] 11/23/19 11:03 Wound Center Nurse 1 [Ulcer Assessment] #18 RIGHT POSTERIOR LE -Combined with other wound No -Current Size (cm) - Length 7.8 -Current Size (cm) - Width 8.5 -Current Size (cm) - Depth 0.1 -Total Square Cm 66.30 -Photo Taken No -Epithelialization Small 1-33% -Tunneling No -Undermining/Tunneling No -Circular Undermining No -Exudate Amt Large -Exudate Type Serosanguineous -Wound Margin Flat & Intact -Granulation Amt Large (67-100%) -Granulation Quality Red -Slough/Fibrin Yes -Necrosis Amt Small (1-33%) -Necrotic Tissue Type Adherent Slough -Structure Exposed None/Limited to Skin Breakdown -Texture (Martha-wound Skin Appearance) Assessed, Excoriation, Scarring -Moisture (Martha-wound Skin Appearance Assessed, ) Maceration, Weeping -Color (Martha-wound Skin Appearance) Assessed, Erythema,Palor -Temperature (Martha-wound Skin No Abnormality Appearance) (Pt Warm) -Tenderness on Palpation (Martha-wound No Skin Appearance) -Ulcer Cleansing SOAPY WATER -Foul Odor after Cleansing No -Anesthetic Used 4% Lidocaine Solution [Edema Assessment] -Lower Limb Edema Present Yes -Right Calf (cm) 78 -Right Ankle (cm) 35.2 -Left Calf (cm) 57.7 -Left Ankle (cm) 28.7 WC - Nurse 2 - General Ulcer CM Notes Start: 11/09/19 11:42 Freq: Status: Active Protocol: Activity Type Activity Date Activity User E-Sign Co-Sign Detail Recorded Client Recorded Date Recorded By Document 11/23/19 11:35 MW [id number] 11/23/19 11:40 MW 11/23/19 11:35 Wound Center Nurse 2 [Procedure/Treatment] #18 RIGHT POSTERIOR LE -Time 11:35 -Correct Patient Yes -Correct Side, Site, Position Yes -Correct Procedure Yes -Procedure Performed Yes -Type of Procedure Debridement -Clinical Debridement Subcutaneous -Post Debridement Size (cm) - Length 5.0 -Post Debridement Size (cm) - Width 6.0 -Post Debridement Size (cm) - Depth 0.1 -Total Square Cm 30.00 -Wound/Ulcer Outcome Not Healed -Ulcer Cleansing Rinsed/ Irrigated with Saline -Foul Odor after Cleansing No -Bioengineered Tissue No -Bleeding Controlled with Pressure -Offloading No -Treatment Response Procedure Tolerated Well [See Physician Procedure note for Specifics] Pain Scale: 0-10 Numeric [Pain] -Is Patient Pain Free? Yes Neurological: Cranial nerves II-XII grossly intact Psych/Mental Status: Normal Affect Debridement Note Post-Debridement Measurements/Treatment WC - Nurse 2 - General Ulcer CM Notes Start: 11/09/19 11:42 Freq: Status: Active Protocol: Activity Type Activity Date Activity User E-Sign Co-Sign Detail Recorded Client Recorded Date Recorded By Document 11/09/19 12:17 MW [id number] 11/09/19 12:22 MW Document 11/23/19 11:35 MW [id number] 11/23/19 11:40 MW 11/09/19 11/23/19 12:17 11:35 Wound Center Nurse 2 #18 RIGHT POSTERIOR LE -Time 12:17 11:35 -Correct Patient Yes Yes -Correct Side, Site, Position Yes Yes -Correct Procedure Yes Yes -Procedure Performed Yes Yes -Type of Procedure Debridement Debridement -Clinical Debridement Subcutaneous Subcutaneous -Post Debridement Size (cm) - Length 8.5 5.0 -Post Debridement Size (cm) - Width 11.5 6.0 -Post Debridement Size (cm) - Depth 0.1 0.1 -Total Square Cm 97.75 30.00 -Wound/Ulcer Outcome Not Healed Not Healed -Ulcer Cleansing Rinsed/ Rinsed/ Irrigated with Irrigated with Saline Saline -Foul Odor after Cleansing No No -Bioengineered Tissue No No -Bleeding Controlled with Pressure Pressure -Offloading No No -Treatment Response Procedure Procedure Tolerated Well Tolerated Well #17 RIGHT UPPER MEDIAL THIGH -Time 12:20 -Correct Patient Yes -Correct Side, Site, Position Yes -Correct Procedure Yes -Procedure Performed No -Post Debridement Size (cm) - Length 0 -Post Debridement Size (cm) - Width 0 -Post Debridement Size (cm) - Depth 0 -Total Square Cm 0 -Wound/Ulcer Outcome Healed- Epithelialized Pain Scale: 0-10 Numeric Is Patient Pain Free? Yes Yes Wound debrided: Right Leg Type of Debridement: Excisional debridement Anesthesia Used: 4% Lidocaine Solution Depth: Down to and including healthy tissue, in the subcutaneous layer Percentage of wound debrided: 100 Instrument Used: 5mm curette Tissue Removed: Slough and devitalized tissue Severity: Fat Layer Exposed Amount of bleeding with debridement: Mild Bleeding Controlled with: Pressure Patient tolerated procedure well Assessment/Plan Active Problems Lymphedema (Chronic) Secondary to chronic venous insufficieny of Bilateral Lower Extremity. Ulcer of right lower extremity with fat layer exposed (Acute) Morbid obesity (Chronic) Assessment: Same as above. Plan: Debridement done as documented above. Procedure was well - tolerated. Lower leg with evidence of skin breakdown. There has been concern with [place] caring for herself and so far she has been unable to get home health to help. She states that she was denied admittance at [facility]. For now, continue Silvercel daily to posterior right leg ulcer. Change 3 - 4 x daily depending on drainage. Daily isreal wraps for edema management. Did not tolerate 3M wraps and Isreal wrap not sufficiently managing edema. Compliance with lymphedema pump strongly recommended. Elevate lower extremity when seated and in bed. Avoid idle standing and exercise as tolerated. Follow up with lymphedema clinic. Her questions were answered and she was advised to call with any further questions or concerns. She was also advised to go to the emergency room if pain worsens. She expressed understanding. Follow-up in 1 week. This note was generated with [employer] dictation software. It may contain incorrect words, spelling, and punctuation that were not noted in checking the note before signing. Code Visit 111xxx-113xx: [id number] [place] subq tissue 20 sq cm/<
== END 2019-12-02 23:59 ==
LOC: WC 11:00
PROVIDERS: Family Provider Family Medicine; PCP Family Medicine; Visit Provider Internal Medicine
DX: L97.811 Non-pressure chronic ulcer of other part of right lower leg limited to breakdown of skin (principal); I89.0 Lymphedema, not elsewhere classified; E66.01 Morbid (severe) obesity due to excess calories; M79.89 Other specified soft tissue disorders; L03.115 Cellulitis of right lower limb
CPT/HCPCS: 11042; 11045

== ENCOUNTER 2020-02-01 09:30 | Outpatient (RCR) | payer MEDICARE, MEDICAID, SELFPAY ==
[2019-12-03 00:26] VITALS: BP 113/64; PULSE 65; RESP 18; TEMP 35.4
[2020-01-18 09:01] VITALS: BP 107/66; PULSE 58; RESP 22; TEMP 36.6; BMI 66.4
--- NOTE | 2020-01-18 10:48 | HP.PCM_ITS ---
(1) Decubitus ulcer Status: Chronic Current Visit: Yes Qualifiers: Pressure injury location: other site Pressure injury stage: stage 3 Qualified Code(s): L89.893 - Pressure ulcer of other site, stage 3 Code(s): L89.90 - Pressure ulcer of unspecified site, unspecified stage Comment: Gluteal Cleft (2) Ulcer of right lower extremity with fat layer exposed Status: Chronic Current Visit: Yes Code(s): L97.912 - Non-pressure chronic ulcer of unspecified part of right lower leg with fat layer exposed (3) Bilateral lower extremity edema Status: Chronic Current Visit: Yes Code(s): R60.0 - Localized edema (4) Lymphedema Status: Chronic Current Visit: Yes Code(s): I89.0 - Lymphedema, not elsewher e classified Comment: Secondary to chronic venous insufficieny of Bilateral Lower Extremity. (5) Morbid obesity Status: Chronic Current Visit: Yes Code(s): E66.01 - Morbid (severe) obesity due to excess calories History of Present Illness Date of Service: 01/18/20 Chief Complaint: Right lower extremity ulcers. History of Wound: Ms. Molina is a 49-year-old well-known to the wound center with past medical history among others as documented above who presents to the wound center due to chronic gluteal cleft pressure ulcer. Started while in a [facility]. She was admitted to the [facility] after hospital stay/management for heart and renal failure. While in the [facility], developed a gluteal cleft ulcer which was managed by [facility] staff with ? Toby. Also history of recurrent bilateral lower extremity ulcers due to chronic lymphedema. Some superficial skin openings of chronic ulcer. She feels well otherwise, denies chills or fever. Now home with home health care. Past Medical History Past Medical History: Chronic Problems Lymphedema (Chronic) Secondary to chronic venous insufficieny of Bilateral Lower Extremity. Secondary lymphedema (Chronic) Decubitus ulcer (Chronic) Gluteal Cleft Trochanteric bursitis of left hip (Chronic) Sacroiliitis (Chronic) Sacrococcygeal disorders, not elsewhere classified (Chronic) Ulcer of right lower extremity with fat layer exposed (Chronic) Morbid obesity (Chronic) Bilateral lower extremity edema (Chronic) Ulcer of left lower extremity with fat layer exposed (Chronic) Open wound of second toe of left foot (Chronic) Traumatic, Penetrating. Ulcer of right heel (Chronic) Abscess of left lower leg (Chronic) Left lower extremity ulcer s/p surgical I and D with fat layer exposed. PAF (paroxysmal atrial fibrillation) (Chronic) HTN (hypertension) (Chronic) HLD (hyperlipidemia) (Chronic) Anxiety and depression (Chronic) CKD (chronic kidney disease), stage III (Chronic) Facet arthropathy, cervical (Chronic) Degenerative disc disease, cervical (Chronic) Cervical spondylosis (Chronic) Surgical History: - - Hysterectomy, partial gastric bypass, cholecystectomy, appendectomy. Allergies/Adverse Reactions: Allergies amoxicillin trihydrate [From Augmentin] Allergy (Verified 01/18/20 09:21) Hives baclofen Allergy (Verified 01/18/20 09:21) Unknown gabapentin Allergy (Verified 01/18/20 09:21) Unknown Iodinated Contrast Media [CONTRASTS] Allergy (Verified 01/18/20 09:21) Anaphylaxis potassium clavulanate [From Augmentin] Allergy (Verified 01/18/20 09:21) Hives shrimp Allergy (Verified 01/18/20 09:21) Unknown valerian root Allergy (Uncoded 04/12/19 10:43) Unknown Home Medications: Ambulatory Orders Medication Instructions Recorded Furosemide [Lasix] 80 mg PO BID 08/01/14 Isosorbide Mononitrate [Imdur] 120 mg PO BID 08/01/14 Apixaban [Eliquis] 5 mg PO BID 05/07/17 Omeprazole [Prilosec] 20 mg PO LUNCH 05/07/17 Sotalol HCl [Betapace AF (Beta 80 mg PO BID 05/07/17 Bijan)] cycloBENZAPRine HCl [Flexeril] 10 mg PO TID PRN 07/13/17 Ondansetron [Zofran Odt] 4 mg PO Q8H PRN PRN #10 tablet 10/07/17 Amitriptyline HCl 25 mg PO QHS 06/08/18 Dicyclomine HCl [Bentyl] 10 mg PO 4X/DAY 06/08/18 ALPRAZolam [Xanax] 0.5 mg PO QHS PRN 07/01/18 Albuterol Inhaler [Ventolin Hfa] 2 puff INHALATION Q6H PRN PRN 11/10/18 Amlodipine [Norvasc] 10 mg PO QHS 11/10/18 Colestipol Tablet [Colestid Tablet] 3 gm PO BID 11/10/18 Meclizine HCl [Antivert] 25 mg PO TID PRN 11/10/18 Nystatin Powder [Mycostatin Powder] 1 applic TOPICAL 4X/DAY PRN PRN 11/10/18 Sertraline HCl [Zoloft] 50 mg PO QHS 11/10/18 Sumatriptan Succinate [Imitrex] 100 mg PO .X1 PRN 11/10/18 Ergocalciferol (Vitamin D2) 50,000 unit PO MOFR 03/20/19 [Vitamin D2] Spironolactone [Aldactone] 25 mg PO DAILY 03/20/19 Topiramate 100 mg PO TID 03/20/19 Clindamycin [Cleocin] 450 mg PO TID #63 cap 03/23/19 Lactobacillus Acidophilus 1 tab PO BID #14 tab 03/23/19 [Acidophilus] oxycodone-acetaminophen 5 mg-325 1 tab PO Q6H PRN #30 tab 03/25/19 mg tablet - Family History Maternal Family History: Family History (Last Updated 03/28/19 @ 13:45 by Idalia Andrews) Mother Hypertension Father Heart disease - - Patient notes a maternal family history of coronary disease, ND, passed her 50s. Paternal Family History: Family History (Last Updated 03/28/19 @ 13:45 by Idalia Andrews) Mother Hypertension Father Heart disease - - Patient notes a paternal family history of coronary disease, history of ND, passed in his 60s. Smoking Status: Never smoker Review of Systems Constitutional: Denies: Anorexia, Chills, Fever, Night Sweats Eyes: Denies: Blurred vision, Pain, Redness HEENT: Denies: Difficulty Hearing, Difficulty Swallowing Cardiovascular: Denies: Chest Pain, Claudication, Chest Pressure Respiratory: Denies: Cough, Hemoptysis Gastrointestinal: Denies: Abdominal Pain, Hematemesis, Vomiting Genitourinary: Denies: Frequency, Hematuria Skin: Denies: Jaundice - Physical Exam Vital Signs Temp Pulse Resp BP 97.9 F 58 L 22 H 107/66 01/18/20 09:01 01/18/20 09:01 01/18/20 09:01 01/18/20 09:01 General: Alert, Oriented x3, Cooperative, No apparent distress HEENT: Atraumatic, Normocephalic Oral: Moist Mucosa Neck: Supple Lungs: Normal air movement Abdomen: Non Tender, Obese Extremities: No cyanosis, Edema Skin: Ulcer/ Wound Wound Measurements and Assessment WC - Nurse 1 - General Ulcer Measurement Start: 01/18/20 09:01 Freq: Status: Active Protocol: Activity Type Activity Date Activity User E-Sign Co-Sign Detail Recorded Client Recorded Date Recorded By Document 01/18/20 09:01 SINGH [id number] 01/18/20 09:21 SINGH 01/18/20 09:01 Wound Center Nurse 1 [Ulcer Assessment] #20 sacral -Current Size (cm) - Length 4 -Current Size (cm) - Width 0.5 -Current Size (cm) - Depth 0.1 -Total Square Cm 2.0 -Photo Taken Yes -Exudate Amt Medium -Exudate Type Yellow/Green -Wound Margin Distinct, Outline Attached -Granulation Amt Large (67-100%) -Granulation Quality [place] -Necrosis Amt None Present (0 %) -Structure Exposed N/A -Texture (Martha-wound Skin Appearance) Excoriation -Moisture (Martha-wound Skin Appearance No Abnormality ) -Color (Martha-wound Skin Appearance) Rubor -Temperature (Martha-wound Skin No Abnormality Appearance) (Pt Warm) -Tenderness on Palpation (Martha-wound No Skin Appearance) -Ulcer Cleansing Wound Cleanser -Foul Odor after Cleansing No -Anesthetic Used 4% Lidocaine Solution #19 RLE Cluster -Current Size (cm) - Length 15.5 -Current Size (cm) - Width 24 -Current Size (cm) - Depth 0.1 -Total Square Cm 372.0 -Photo Taken Yes -Classification - Thickness Partial Thickness -Exudate Amt Small -Exudate Type Serosanguineous -Wound Margin Indistinct, Non -Visible -Granulation Amt Large (67-100%) -Granulation Quality [place] -Necrosis Amt None Present (0 %) -Structure Exposed N/A -Texture (Martha-wound Skin Appearance) Localized Edema ,Scarring -Moisture (Martha-wound Skin Appearance No Abnormality ) -Color (Martha-wound Skin Appearance) Erythema,Rubor -Temperature (Martha-wound Skin No Abnormality Appearance) (Pt Warm) -Tenderness on Palpation (Martha-wound No Skin Appearance) -Ulcer Cleansing Wound Cleanser -Foul Odor after Cleansing No -Anesthetic Used 4% Lidocaine Solution [Edema Assessment] -Right Calf (cm) 81 -Right Ankle (cm) 32 -Left Calf (cm) 62 -Left Ankle (cm) 32 WC - Nurse 2 - General Ulcer CM Notes Start: 01/18/20 09:01 Freq: Status: Active Protocol: Activity Type Activity Date Activity User E-Sign Co-Sign Detail Recorded Client Recorded Date Recorded By Document 01/18/20 09:50 MW [id number] 01/18/20 09:52 MW 01/18/20 09:50 Wound Center Nurse 2 [Procedure/Treatment] #20 sacral -Time 09:50 -Correct Patient Yes -Correct Side, Site, Position Yes -Correct Procedure Yes -Procedure Performed Yes -Type of Procedure Debridement -Clinical Debridement Subcutaneous -Post Debridement Size (cm) - Length 8.0 -Post Debridement Size (cm) - Width 1.0 -Post Debridement Size (cm) - Depth 0.1 -Total Square Cm 8.00 -Wound/Ulcer Outcome Not Healed -Ulcer Cleansing Rinsed/ Irrigated with Saline -Foul Odor after Cleansing No -Bioengineered Tissue No -Bleeding Controlled with Pressure -Offloading No -Treatment Response Procedure Tolerated Well #19 RLE Cluster -Time 09:51 -Correct Patient Yes -Correct Side, Site, Position Yes -Correct Procedure Yes -Procedure Performed No -Wound/Ulcer Outcome Not Healed -Ulcer Cleansing Rinsed/ Irrigated with Saline -Foul Odor after Cleansing No -Bioengineered Tissue No -Bleeding Controlled with Pressure -Offloading No -Treatment Response Procedure Tolerated Well [See Physician Procedure note for Specifics] Pain Scale: 0-10 Numeric [Pain] -Is Patient Pain Free? Yes Neurological: Cranial nerves II-XII grossly intact Psych/Mental Status: Normal Affect Debridement Note Post-Debridement Measurements/Treatment WC - Nurse 2 - General Ulcer CM Notes Start: 01/18/20 09:01 Freq: Status: Active Protocol: Activity Type Activity Date Activity User E-Sign Co-Sign Detail Recorded Client Recorded Date Recorded By Document 01/18/20 09:50 MW [id number] 01/18/20 09:52 MW 01/18/20 09:50 Wound Center Nurse 2 #20 sacral -Time 09:50 -Correct Patient Yes -Correct Side, Site, Position Yes -Correct Procedure Yes -Procedure Performed Yes -Type of Procedure Debridement -Clinical Debridement Subcutaneous -Post Debridement Size (cm) - Length 8.0 -Post Debridement Size (cm) - Width 1.0 -Post Debridement Size (cm) - Depth 0.1 -Total Square Cm 8.00 -Wound/Ulcer Outcome Not Healed -Ulcer Cleansing Rinsed/ Irrigated with Saline -Foul Odor after Cleansing No -Bioengineered Tissue No -Bleeding Controlled with Pressure -Offloading No -Treatment Response Procedure Tolerated Well #19 RLE Cluster -Time 09:51 -Correct Patient Yes -Correct Side, Site, Position Yes -Correct Procedure Yes -Procedure Performed No -Wound/Ulcer Outcome Not Healed -Ulcer Cleansing Rinsed/ Irrigated with Saline -Foul Odor after Cleansing No -Bioengineered Tissue No -Bleeding Controlled with Pressure -Offloading No -Treatment Response Procedure Tolerated Well Pain Scale: 0-10 Numeric Is Patient Pain Free? Yes Wound debrided: Gluteal Cleft Wound Grade/Stage: Stage III Type of Debridement: Excisional debridement Anesthesia Used: 4% Lidocaine Solution Depth: Down to and including healthy tissue, in the subcutaneous layer Percentage of wound debrided: 100 Instrument Used: 5mm curette Tissue Removed: Slough and devitalized tissue Severity: Fat Layer Exposed Amount of bleeding with debridement: Mild Bleeding Controlled with: Pressure Patient tolerated procedure well Assessment/Plan Active Problems Lymphedema (Chronic) Secondary to chronic venous insufficieny of Bilateral Lower Extremity. Decubitus ulcer (Chronic) Gluteal Cleft Ulcer of right lower extremity with fat layer exposed (Chronic) Morbid obesity (Chronic) Bilateral lower extremity edema (Chronic) Assessment: Same as above. Plan: Debridement done as documented above. Procedure was well-tolerated. No debridement to right lower extremity ulcer, superficial. Apply silver cell to all ulcers surfaces. Gauze over top. Change daily to twice daily as needed. Offloading of decubitus ulcer recommended. Elevate lower extremities when seated and in bed. Use lymphedema pump consistently. Continue Isreal wraps for compression. Increase protein intake. Her questions were answered and she was advised to call with any further questions or concerns. Follow-up in 2 weeks. This note was generated with [employer] software. It may contain incorrect words, spelling, and punctuation that were not noted in checking the note before signing. Multi Select Codes - Visit Charges Office Visit/Consults: 13270 OV L3 Est - Integumentary Integumentary CPT Codes: 50093 [place] subq tissue 20 sq cm/<
[2020-02-01 09:20] VITALS: BP 142/80; PULSE 67; RESP 20; TEMP 36.2; BMI 66.4
--- NOTE | 2020-02-01 10:28 | PN.PCM_ITS ---
(1) Decubitus ulcer Status: Chronic Current Visit: Yes Qualifiers: Pressure injury location: other site Pressure injury stage: stage 3 Qualified Code(s): L89.893 - Pressure ulcer of other site, stage 3 Code(s): L89.90 - Pressure ulcer of unspecified site, unspecified stage Comment: Gluteal Cleft (2) Ulcer of right lower extremity with fat layer exposed Status: Chronic Current Visit: Yes Code(s): L97.912 - Non-pressure chronic ulcer of unspecified part of right lower leg with fat layer exposed (3) Bilateral lower extremity edema Status: Chronic Current Visit: Yes Code(s): R60.0 - Localized edema (4) Lymphedema Status: Chronic Current Visit: Yes Code(s): I89.0 - Lymphedema, not elsewher e classified Comment: Secondary to chronic venous insufficieny of Bilateral Lower Extremity. (5) Morbid obesity Status: Chronic Current Visit: Yes Code(s): E66.01 - Morbid (severe) obesity due to excess calories Type of Wound Date of Service: 02/01/20 Chief Complaint: Right lower extremity ulcers. History of Wound: Ms. Molina is a 49-year-old well-known to the wound center with past medical history among others as documented above who presents to the wound center due to chronic gluteal cleft pressure ulcer. Started while in a intermediate. She was admitted to the intermediate after hospital stay/management for heart and renal failure. While in the intermediate, developed a gluteal cleft ulcer which was managed by intermediate staff with Marcos Luis. Also history of recurrent bilateral lower extremity ulcers due to chronic lymphedema. Some superficial skin openings of chronic ulcer. She feels well otherwise, denies chills or fever. Now home with home health care. Progress of Wound: Improving. No new concerns at this time. - Physical Exam Vital Signs Temp Pulse Resp BP 97.2 F L 67 20 H 142/80 H 02/01/20 09:20 02/01/20 09:20 02/01/20 09:20 02/01/20 09:20 General: Alert, Oriented x3, Cooperative, No apparent distress HEENT: Atraumatic, Normocephalic Oral: Moist Mucosa Neck: Supple Lungs: Normal air movement Abdomen: Non Tender, Obese Extremities: No cyanosis, Edema Skin: Ulcer/ Wound Wound Measurements and Assessment WC - Nurse 1 - General Ulcer Measurement Start: 01/18/20 09:01 Freq: Status: Active Protocol: Activity Type Activity Date Activity User E-Sign Co-Sign Detail Recorded Client Recorded Date Recorded By Document 02/01/20 09:20 PL [id number] 02/01/20 09:36 PL 02/01/20 09:20 Wound Center Nurse 1 [Ulcer Assessment] #20 sacral -Combined with other wound No -Current Size (cm) - Length 2.0 -Current Size (cm) - Width 0.3 -Current Size (cm) - Depth 0.3 -Total Square Cm 0.60 -Photo Taken No -Epithelialization None Present -Tunneling No -Undermining/Tunneling No -Circular Undermining No -Exudate Amt Medium -Exudate Type Serosanguineous -Granulation Amt Large (67-100%) -Granulation Quality [place],Red -Slough/Fibrin Yes -Necrosis Amt Small (1-33%) -Necrotic Tissue Type Adherent Slough -Temperature (Martha-wound Skin No Abnormality Appearance) (Pt Warm) -Tenderness on Palpation (Martha-wound No Skin Appearance) -Ulcer Cleansing Rinsed/ Irrigated with Saline -Anesthetic Used 4% Lidocaine Solution #19 RLE Cluster -Combined with other wound No -Current Size (cm) - Length 0 -Current Size (cm) - Width 0 -Current Size (cm) - Depth 0 -Total Square Cm 0 -Epithelialization Large 67-100% -Tunneling No -Undermining/Tunneling No -Granulation Amt Large (67-100%) -Granulation Quality [place] -Slough/Fibrin No -Necrosis Amt None Present (0 %) -Temperature (Martha-wound Skin No Abnormality Appearance) (Pt Warm) -Tenderness on Palpation (Martha-wound No Skin Appearance) -Ulcer Cleansing Soap and water -Foul Odor after Cleansing No WC - Nurse 2 - General Ulcer CM Notes Start: 01/18/20 09:01 Freq: Status: Active Protocol: Activity Type Activity Date Activity User E-Sign Co-Sign Detail Recorded Client Recorded Date Recorded By Document 02/01/20 10:11 MW [id number] 02/01/20 10:12 MW 02/01/20 10:11 Wound Center Nurse 2 [Procedure/Treatment] #20 sacral -Time 10:11 -Correct Patient Yes -Correct Side, Site, Position Yes -Correct Procedure Yes -Procedure Performed Yes -Type of Procedure Debridement -Clinical Debridement Subcutaneous -Post Debridement Size (cm) - Length 2.4 -Post Debridement Size (cm) - Width 0.3 -Post Debridement Size (cm) - Depth 0.1 -Total Square Cm 0.72 -Wound/Ulcer Outcome Not Healed -Ulcer Cleansing Rinsed/ Irrigated with Saline -Foul Odor after Cleansing No -Bioengineered Tissue No -Bleeding Controlled with Pressure -Offloading No -Treatment Response Procedure Tolerated Well #19 RLE Cluster -Time 10:11 -Correct Patient Yes -Correct Side, Site, Position Yes -Correct Procedure Yes -Procedure Performed No -Post Debridement Size (cm) - Length 0.1 -Post Debridement Size (cm) - Width 0.1 -Post Debridement Size (cm) - Depth 0.1 -Total Square Cm 0.01 -Wound/Ulcer Outcome Not Healed -Ulcer Cleansing Not Cleansed -Foul Odor after Cleansing No -Bioengineered Tissue No -Bleeding Controlled with NA -Offloading No -Treatment Response Procedure Tolerated Well [See Physician Procedure note for Specifics] Pain Scale: 0-10 Numeric [Pain] -Is Patient Pain Free? Yes Musculoskeletal: No Muscle Wasting Neurological: Cranial nerves II-XII grossly intact Psych/Mental Status: Normal Affect Debridement Note Post-Debridement Measurements/Treatment WC - Nurse 2 - General Ulcer CM Notes Start: 01/18/20 09:01 Freq: Status: Active Protocol: Activity Type Activity Date Activity User E-Sign Co-Sign Detail Recorded Client Recorded Date Recorded By Document 01/18/20 09:50 MW [id number] 01/18/20 09:52 MW Document 02/01/20 10:11 MW [id number] 02/01/20 10:12 MW 01/18/20 02/01/20 09:50 10:11 Wound Center Nurse 2 #20 sacral -Time 09:50 10:11 -Correct Patient Yes Yes -Correct Side, Site, Position Yes Yes -Correct Procedure Yes Yes -Procedure Performed Yes Yes -Type of Procedure Debridement Debridement -Clinical Debridement Subcutaneous Subcutaneous -Post Debridement Size (cm) - Length 8.0 2.4 -Post Debridement Size (cm) - Width 1.0 0.3 -Post Debridement Size (cm) - Depth 0.1 0.1 -Total Square Cm 8.00 0.72 -Wound/Ulcer Outcome Not Healed Not Healed -Ulcer Cleansing Rinsed/ Rinsed/ Irrigated with Irrigated with Saline Saline -Foul Odor after Cleansing No No -Bioengineered Tissue No No -Bleeding Controlled with Pressure Pressure -Offloading No No -Treatment Response Procedure Procedure Tolerated Well Tolerated Well #19 RLE Cluster -Time 09:51 10:11 -Correct Patient Yes Yes -Correct Side, Site, Position Yes Yes -Correct Procedure Yes Yes -Procedure Performed No No -Post Debridement Size (cm) - Length 0.1 -Post Debridement Size (cm) - Width 0.1 -Post Debridement Size (cm) - Depth 0.1 -Total Square Cm 0.01 -Wound/Ulcer Outcome Not Healed Not Healed -Ulcer Cleansing Rinsed/ Not Cleansed Irrigated with Saline -Foul Odor after Cleansing No No -Bioengineered Tissue No No -Bleeding Controlled with Pressure NA -Offloading No No -Treatment Response Procedure Procedure Tolerated Well Tolerated Well Pain Scale: 0-10 Numeric Is Patient Pain Free? Yes Yes Wound debrided: Gluteal cleft Wound Grade/Stage: Stage III Type of Debridement: Excisional debridement Anesthesia Used: 4% Lidocaine Solution Depth: Down to and including healthy tissue, in the subcutaneous layer Percentage of wound debrided: 100 Instrument Used: 3mm curette Tissue Removed: Slough and devitalized tissue Severity: Fat Layer Exposed Amount of bleeding with debridement: Mild Bleeding Controlled with: Pressure Patient tolerated procedure well Assessment/Plan Active Problems Lymphedema (Chronic) Secondary to chronic venous insufficieny of Bilateral Lower Extremity. Decubitus ulcer (Chronic) Gluteal Cleft Ulcer of right lower extremity with fat layer exposed (Chronic) Morbid obesity (Chronic) Bilateral lower extremity edema (Chronic) Assessment: Same as above. Plan: Debridement done as documented above. Procedure was well-tolerated. No debridement to right lower extremity ulcer, superficial. Ulcers are improving. Continue silver cell to all ulcers surfaces. Gauze over top. Change daily to twice daily as needed. Offloading of decubitus ulcer recommended. Elevate lowe r extremities when seated and in bed. Use lymphedema pump consistently. Continue Isreal wraps for compression. Increase protein intake. Her questions were answered and she was advised to call with any further questions or concerns. Follow-up in 2 weeks. This note was generated with [employer] software. It may contain incorrect words, spelling, and punctuation that were not noted in checking the note before signing.
== END 2020-02-01 23:59 ==
LOC: WC 09:30
PROVIDERS: Family Provider Family Medicine; PCP Family Medicine; Visit Provider Internal Medicine
DX: L89.893 Pressure ulcer of other site, stage 3 (principal); L97.912 Non-pressure chronic ulcer of unspecified part of right lower leg with fat layer exposed; R60.0 Localized edema; I89.0 Lymphedema, not elsewhere classified; E66.01 Morbid (severe) obesity due to excess calories; I87.2 Venous insufficiency (chronic) (peripheral); E78.5 Hyperlipidemia, unspecified; F32.9 Major depressive disorder, single episode, unspecified; F41.9 Anxiety disorder, unspecified; I12.9 Hypertensive chronic kidney disease with stage 1 through stage 4 chronic kidney disease, or unspecified chronic kidney disease; I48.0 Paroxysmal atrial fibrillation; M46.1 Sacroiliitis, not elsewhere classified; N18.3 Chronic kidney disease, stage 3 (moderate); Z79.01 Long term (current) use of anticoagulants; Z98.84 Bariatric surgery status; Z79.899 Other long term (current) drug therapy
CPT/HCPCS: 11042; 99213; G0463

== ENCOUNTER 2020-02-22 09:30 | Outpatient (RCR) | payer MEDICARE, MEDICAID, SELFPAY ==
[2020-02-02 00:04] VITALS: BP 142/80; PULSE 67; RESP 20; TEMP 36.2
--- NOTE | 2020-02-09 16:03 | WC ---
Patient called with a complaint of her leg wounds draining more then they had been and was wondering what could be done till her visit on 02/15/20. The only description of the problem she could provide was that her leg was swelling more and looked like it was cracking. I advised her that if she felt it need to seen immediately or if she felt it was infected that she should go to the ER for further evaluation. Pt refused stating it was not that bad. I advised that if she was having excessive draining then she should change the dressing twice a day, and if was still having issues to call us on Wednesday when the clinic reopened. She verbally acknowledged understanding.
[2020-02-22 09:25] VITALS: BP 141/75; PULSE 77; RESP 18; TEMP 36.5; BMI 66.4
--- NOTE | 2020-02-22 09:53 | PN.PCM_ITS ---
(1) Decubitus ulcer Status: Chronic Current Visit: Yes Qualifiers: Pressure injury location: unspecified location Pressure injury stage: stage 3 Qualified Code(s): L89.93 - Pressure ulcer of unspecified site, stage 3 Code(s): L89.90 - Pressure ulcer of unspecified site, unspecified stage Comment: Gluteal Cleft (2) Lymphedema Status: Chronic Current Visit: No Code(s): I89.0 - Lymphedema, not elsewhere classified Comment: Secondary to chronic venous insufficieny of Bilateral Lower Extremity. (3) Morbid obesity Status: Chronic Current Visit: Yes Code(s): E66.01 - Morbid (severe) obesity due to excess calories (4) Ulcer of right lower extremity with fat layer exposed Status: Chronic Current Visit: Yes Code(s): L97.912 - Non-pressure chronic ulcer of unspecified part of right lower leg with fat layer exposed Comment: Gluteal Cleft. Stage III (5) Bilateral lower extremity edema Status: Chronic Current Visit: Yes Code(s): R60.0 - Localized edema Type of Wound Date of Service: 02/22/20 Chief Complaint: Right lower extremity ulcers. History of Wound: Ms. Molina is a 49-year-old well-known to the wound center with past medical history among others as documented above who presents to the wound center due to chronic gluteal cleft pressure ulcer. Started while in a senior care. She was admitted to the senior care after hospital stay/management for heart and renal failure. While in the senior care, developed a gluteal cleft ulcer which was managed by senior care staff with ? Toby. Also history of recurrent bilateral lower extremity ulcers due to chronic lymphedema. Some superficial skin openings of chronic ulcer. She feels well otherwise, denies chills or fever. Now home with home health care. Progress of Wound: Right lower extremity is healed. Gluteal cleft stable. - Physical Exam Vital Signs Temp Pulse Resp BP 97.7 F L 77 18 141/75 H 02/22/20 09:25 02/22/20 09:25 02/22/20 09:25 02/22/20 09:25 General: Alert, Oriented x3, Cooperative, No apparent distress HEENT: Atraumatic, Normocephalic Oral: Moist Mucosa Neck: Supple Lungs: Normal air movement Abdomen: Non Tender, Obese Extremities: No cyanosis, Edema Skin: Ulcer/ Wound Wound Measurements and Assessment WC - Nurse 1 - General Ulcer Measurement Start: 02/15/20 11:26 Freq: Status: Active Protocol: Activity Type Activity Date Activity User E-Sign Co-Sign Detail Recorded Client Recorded Date Recorded By Document 02/22/20 09:25 DV [id number] 02/22/20 09:40 DV 02/22/20 09:25 Wound Center Nurse 1 [Ulcer Assessment] #20 sacral -Combined with other wound No -Current Size (cm) - Length 2.1 -Current Size (cm) - Width 0.2 -Current Size (cm) - Depth 0.1 -Total Square Cm 0.42 -Photo Taken No -Epithelialization None Present -Tunneling No -Undermining/Tunneling No -Circular Undermining No -Classification - Thickness Full Thickness without Exposed Support Structure -Exudate Amt Small -Exudate Type Serous -Wound Margin Flat & Intact -Granulation Amt None Present (0 %) -Granulation Quality N/A -Slough/Fibrin Yes -Necrosis Amt Medium (34-66%) -Necrotic Tissue Type Adherent Slough -Structure Exposed None/Limited to Skin Breakdown -Texture (Martha-wound Skin Appearance) No Abnormality, Assessed -Moisture (Martha-wound Skin Appearance No Abnormality, ) Assessed -Color (Martha-wound Skin Appearance) No Abnormality, Assessed -Temperature (Martha-wound Skin No Abnormality Appearance) (Pt Warm) -Ulcer Cleansing Rinsed/ Irrigated with Saline -Foul Odor after Cleansing No -Anesthetic Used 4% Lidocaine Solution #19 RLE Cluster -Combined with other wound No -Current Size (cm) - Length 0.1 -Current Size (cm) - Width 0.1 -Current Size (cm) - Depth 0.1 -Total Square Cm 0.01 -Date of Last Picture (Recall this 02/22/20 field) -Photo Taken Yes -Epithelialization None Present -Tunneling No -Undermining/Tunneling No -Circular Undermining No -Classification - Thickness Full Thickness without Exposed Support Structure -Exudate Amt None Present -Wound Margin Flat & Intact -Granulation Amt None Present (0 %) -Granulation Quality N/A -Slough/Fibrin No -Necrosis Amt None Present (0 %) -Structure Exposed N/A -Texture (Martha-wound Skin Appearance) No Abnormality, Assessed -Moisture (Martha-wound Skin Appearance Assessed,Dry/ ) Scaly -Color (Martha-wound Skin Appearance) No Abnormality, Assessed -Temperature (Martha-wound Skin No Abnormality Appearance) (Pt Warm) -Tenderness on Palpation (Martha-wound No Skin Appearance) -Foul Odor after Cleansing No [Edema Assessment] -Lower Limb Edema Present Yes -Right Calf (cm) 76.0 -Right Ankle (cm) 31 -Left Calf (cm) 59.0 -Left Ankle (cm) 28 WC - Nurse 2 - General Ulcer CM Notes Start: 02/15/20 11:26 Freq: Status: Active Protocol: Activity Type Activity Date Activity User E-Sign Co-Sign Detail Recorded Client Recorded Date Recorded By Document 02/22/20 09:49 MW [id number] 02/22/20 09:52 MW 02/22/20 09:49 Wound Center Nurse 2 [Procedure/Treatment] #20 sacral -Time 09:50 -Correct Patient Yes -Correct Side, Site, Position Yes -Correct Procedure Yes -Procedure Performed Yes -Type of Procedure Debridement -Clinical Debridement Subcutaneous -Post Debridement Size (cm) - Length 2.5 -Post Debridement Size (cm) - Width 0.3 -Post Debridement Size (cm) - Depth 0.1 -Total Square Cm 0.75 -Wound/Ulcer Outcome Not Healed -Ulcer Cleansing Rinsed/ Irrigated with Saline -Foul Odor after Cleansing No -Bioengineered Tissue No -Bleeding Controlled with Pressure -Offloading No -Treatment Response Procedure Tolerated Well #19 RLE Cluster -Time 09:51 -Correct Patient Yes -Correct Side, Site, Position Yes -Correct Procedure Yes -Procedure Performed No -Post Debridement Size (cm) - Length 0 -Post Debridement Size (cm) - Width 0 -Post Debridement Size (cm) - Depth 0 -Total Square Cm 0 -Wound/Ulcer Outcome Healed- Epithelialized [See Physician Procedure note for Specifics] Pain Scale: 0-10 Numeric [Pain] -Is Patient Pain Free? Yes Neurological: Cranial nerves II-XII grossly intact Psych/Mental Status: Normal Affect Debridement Note Post-Debridement Measurements/Treatment FELICITY - Nurse 2 - General Ulcer CM Notes Start: 02/15/20 11:26 Freq: Status: Active Protocol: Activity Type Activity Date Activity User E-Sign Co-Sign Detail Recorded Client Recorded Date Recorded By Document 02/22/20 09:49 MW [id number] 02/22/20 09:52 MW 02/22/20 09:49 Wound Center Nurse 2 #20 sacral -Time 09:50 -Correct Patient Yes -Correct Side, Site, Position Yes -Correct Procedure Yes -Procedure Performed Yes -Type of Procedure Debridement -Clinical Debridement Subcutaneous -Post Debridement Size (cm) - Length 2.5 -Post Debridement Size (cm) - Width 0.3 -Post Debridement Size (cm) - Depth 0.1 -Total Square Cm 0.75 -Wound/Ulcer Outcome Not Healed -Ulcer Cleansing Rinsed/ Irrigated with Saline -Foul Odor after Cleansing No -Bioengineered Tissue No -Bleeding Controlled with Pressure -Offloading No -Treatment Response Procedure Tolerated Well #19 RLE Cluster -Time 09:51 -Correct Patient Yes -Correct Side, Site, Position Yes -Correct Procedure Yes -Procedure Performed No -Post Debridement Size (cm) - Length 0 -Post Debridement Size (cm) - Width 0 -Post Debridement Size (cm) - Depth 0 -Total Square Cm 0 -Wound/Ulcer Outcome Healed- Epithelialized Pain Scale: 0-10 Numeric Is Patient Pain Free? Yes Wound debrided: Gluteal cleft Wound Grade/Stage: Stage 3 Type of Debridement: Excisional debridement Anesthesia Used: 4% Lidocaine Solution Depth: Down to and including healthy tissue, in the subcutaneous layer Percentage of wound debrided: 100 Instrument Used: 3mm curette Tissue Removed: Slough and devitalized tissue Severity: Fat Layer Exposed Amount of bleeding with debridement: Mild Bleeding Controlled with: Pressure Patient tolerated procedure well Assessment/Plan Active Problems Decubitus ulcer (Chronic) Gluteal Cleft Ulcer of right lower extremity with fat layer exposed (Chronic) Gluteal Cleft. Stage III Morbid obesity (Chronic) Bilateral lower extremity edema (Chronic) Assessment: Same as above. Plan: Debridement done as documented above. Procedure was well-tolerated. Right lower extremity is healed. Switch to Promogran to gluteal cleft. Change daily. Offloading of decubitus ulcer also recommended. Elevate lower extremities when seated and in bed. Use lymphedema pump consistently. Continue Isreal wraps for compression. Increase protein intake. Her questions were answered and she was advised to call with any further questions or concerns. Follow-up in 1 week. This note was generated with [employer] software. It may contain incorrect words, spelling, and punctuation that were not noted in checking the note before signing. [id number]: [id number] [place] subq tissue 20 sq cm/<
== END 2020-03-03 23:59 ==
LOC: WC 09:30
PROVIDERS: Family Provider Family Medicine; PCP Family Medicine; Visit Provider Internal Medicine
DX: L89.93 Pressure ulcer of unspecified site, stage 3 (principal); I89.0 Lymphedema, not elsewhere classified; E66.01 Morbid (severe) obesity due to excess calories; L97.912 Non-pressure chronic ulcer of unspecified part of right lower leg with fat layer exposed; R60.0 Localized edema
CPT/HCPCS: 11042

== ENCOUNTER 2020-03-28 09:30 | Outpatient (RCR) | payer MEDICARE, MEDICAID, SELFPAY ==
[2020-03-04 00:17] VITALS: BP 141/75; PULSE 77; RESP 18; TEMP 36.5
--- NOTE | 2020-03-07 11:21 | PCM.WC.PN ---
(1) Decubitus ulcer Status: Chronic Current Visit: Yes Qualifiers: Pressure injury stage: stage 2 Code(s): L89.90 - Pressure ulcer of unspecified site, unspecified stage Comment: Gluteal Cleft (2) Lymphedema Status: Chronic Current Visit: Yes Code(s): I89.0 - Lymphedema, not elsewhere classified Comment: Secondary to chronic venous insufficieny of Bilateral Lower Extremity. (3) Morbid obesity Status: Chronic Current Visit: Yes Code(s): E66.01 - Morbid (severe) obesity due to excess calories Type of Wound Date of Service: 03/07/20 Chief Complaint: Right lower extremity ulcers. History of Wound: Ms. Molina is a 49-year-old well-known to the wound center with past medical history among others as documented above who presents to the wound center due to chronic gluteal cleft pressure ulcer. [facility]. [facility] the [facility] after hospital stay/management for heart and renal failure. While in the penitentiary, developed a gluteal cleft ulcer which was managed by [facility] staff with ? Ocyl. Also history of recurrent bilateral lower extremity ulcers due to chronic lymphedema. Some superficial skin openings of chronic ulcer. She feels well otherwise, denies chills or fever. Now home with home health care. Progress of Wound: States that she has been sitting a lot. Was not here last week due to fever. Feels well today. Mild worsening of the gluteal cleft ulcer noted. - Physical Exam Vital Signs Temp Pulse Resp BP 97.7 F L 77 18 141/75 H 03/04/20 00:17 03/04/20 00:17 03/04/20 00:17 03/04/20 00:17 General: Alert, Oriented x3, Cooperative, No apparent distress HEENT: Atraumatic, Normocephalic Oral: Moist Mucosa Neck: Supple Lungs: Normal air movement Abdomen: Non Tender, Obese Extremities: No cyanosis Skin: Ulcer/ Wound Wound Measurements and Assessment WC - Nurse 2 - General Ulcer CM Notes Start: 03/07/20 11:03 Freq: Status: Active Protocol: Activity Type Activity Date Activity User E-Sign Co-Sign Detail Recorded Client Recorded Date Recorded By Document 03/07/20 11:07 MW [id number] 03/07/20 11:08 MW 03/07/20 11:07 Wound Center Nurse 2 [Procedure/Treatment] #20 sacral -Time 11:07 -Correct Patient Yes -Correct Side, Site, Position Yes -Correct Procedure Yes -Procedure Performed Yes -Type of Procedure Debridement -Clinical Debridement Subcutaneous -Post Debridement Size (cm) - Length 3.0 -Post Debridement Size (cm) - Width 0.3 -Post Debridement Size (cm) - Depth 0.1 -Total Square Cm 0.90 -Wound/Ulcer Outcome Not Healed -Ulcer Cleansing Rinsed/ Irrigated with Saline -Foul Odor after Cleansing No -Bioengineered Tissue No -Bleeding Controlled with Pressure -Offloading No -Treatment Response Procedure Tolerated Well [See Physician Procedure note for Specifics] Pain Scale: 0-10 Numeric [Pain] -Is Patient Pain Free? Yes Musculoskeletal: No Muscle Wasting Neurological: Cranial nerves II-XII grossly intact Psych/Mental Status: Normal Affect Debridement Note Post-Debridement Measurements/Treatment WC - Nurse 2 - General Ulcer CM Notes Start: 03/07/20 11:03 Freq: Status: Active Protocol: Activity Type Activity Date Activity User E-Sign Co-Sign Detail Recorded Client Recorded Date Recorded By Document 03/07/20 11:07 MW [id number] 03/07/20 11:08 MW 03/07/20 11:07 Wound Center Nurse 2 #20 sacral -Time 11:07 -Correct Patient Yes -Correct Side, Site, Position Yes -Correct Procedure Yes -Procedure Performed Yes -Type of Procedure Debridement -Clinical Debridement Subcutaneous -Post Debridement Size (cm) - Length 3.0 -Post Debridement Size (cm) - Width 0.3 -Post Debridement Size (cm) - Depth 0.1 -Total Square Cm 0.90 -Wound/Ulcer Outcome Not Healed -Ulcer Cleansing Rinsed/ Irrigated with Saline -Foul Odor after Cleansing No -Bioengineered Tissue No -Bleeding Controlled with Pressure -Offloading No -Treatment Response Procedure Tolerated Well Pain Scale: 0-10 Numeric Is Patient Pain Free? Yes Wound debrided: Gluteal cleft Wound Grade/Stage: Stage II Type of Debridement: Excisional debridement Anesthesia Used: 4% Lidocaine Solution Depth: Down to and including healthy tissue, in the subcutaneous layer Percentage of wound debrided: 100 Instrument Used: 3mm curette Tissue Removed: Slough and devitalized tissue Severity: Fat Layer Exposed Amount of bleeding with debridement: Mild Bleeding Controlled with: Pressure Patient tolerated procedure well Assessment/Plan Active Problems Lymphedema (Chronic) Secondary to chronic venous insufficieny of Bilateral Lower Extremity. Decubitus ulcer (Chronic) Gluteal Cleft Morbid obesity (Chronic) Assessment: Same as above. Plan: Debridement done as documented above. Procedure was well-tolerated. Continue Promogran to gluteal cleft. Change daily. Offloading of decubitus ulcer also recommended. Elevate lower extremities when seated and in bed. Use lymphedema pump consistently. Continue Isreal wraps for compression. Increase protein intake. Her questions were answered and she was advised to call with any further questions or concerns. Follow-up in 1 week. This note was generated with [employer] dictation software. It may contain incorrect words, spelling, and punctuation that were not noted in checking the note before signing. [id number]: [id number] [place] subq tissue 20 sq cm/<
[2020-03-14 10:32] VITALS: BP 140/74; PULSE 63; RESP 22; TEMP 36.3; BMI 66.4
--- NOTE | 2020-03-14 12:40 | PCM.WC.PN ---
(1) Decubitus ulcer Status: Chronic Current Visit: Yes Qualifiers: Pressure injury stage: stage 2 Code(s): L89.90 - Pressure ulcer of unspecified site, unspecified stage Comment: Gluteal Cleft (2) Lymphedema Status: Chronic Current Visit: Yes Code(s): I89.0 - Lymphedema, not elsewhere classified Comment: Secondary to chronic venous insufficieny of Bilateral Lower Extremity. (3) Morbid obesity Status: Chronic Current Visit: Yes Code(s): E66.01 - Morbid (severe) obesity due to excess calories Type of Wound Date of Service: 03/14/20 Chief Complaint: Right lower extremity ulcers. History of Wound: Ms. Molina is a 49-year-old well-known to the wound center with past medical history among others as documented above who presents to the wound center due to chronic gluteal cleft pressure ulcer. Started while in a correction. She was admitted to the correction after hospital stay/management for heart and renal failure. While in the correction, developed a gluteal cleft ulcer which was managed by correction staff with ? Toby. Also history of recurrent bilateral lower extremity ulcers due to chronic lymphedema. Some superficial skin openings of chronic ulcer. She feels well otherwise, denies chills or fever. Now home with home health care. Progress of Wound: New areas of maceration. She maintains that she has been sitting a lot. - Physical Exam Vital Signs Temp Pulse Resp BP 97.3 F L 63 22 H 140/74 H 03/14/20 10:32 03/14/20 10:32 03/14/20 10:32 03/14/20 10:32 General: Alert, Oriented x3, Cooperative, No apparent distress HEENT: Atraumatic, Normocephalic Oral: Moist Mucosa Neck: Supple Lungs: Normal air movement Abdomen: Non Tender, Obese Extremities: No cyanosis, Edema Skin: Ulcer/ Wound Wound Measurements and Assessment WC - Nurse 1 - General Ulcer Measurement Start: 03/07/20 11:03 Freq: Status: Active Protocol: Activity Type Activity Date Activity User E-Sign Co-Sign Detail Recorded Client Recorded Date Recorded By Document 03/14/20 10:32 DL [id number] 03/14/20 10:46 DL 03/14/20 10:32 Wound Center Nurse 1 [Ulcer Assessment] #20 sacral -Current Size (cm) - Length 5 -Current Size (cm) - Width 0.7 -Current Size (cm) - Depth 0.1 -Total Square Cm 3.5 -Photo Taken No -Exudate Amt None Present -Wound Margin Flat & Intact -Granulation Amt Large (67-100%) -Granulation Quality [place] -Necrosis Amt None Present (0 %) -Structure Exposed N/A -Texture (Martha-wound Skin Appearance) Scarring -Moisture (Martha-wound Skin Appearance No Abnormality ) -Color (Martha-wound Skin Appearance) No Abnormality -Temperature (Martha-wound Skin No Abnormality Appearance) (Pt Warm) -Tenderness on Palpation (Martha-wound No Skin Appearance) -Ulcer Cleansing Rinsed/ Irrigated with Saline -Foul Odor after Cleansing No -Anesthetic Used 4% Lidocaine Solution [Edema Assessment] -Right Calf (cm) 87 -Right Ankle (cm) 34 WC - Nurse 2 - General Ulcer CM Notes Start: 03/07/20 11:03 Freq: Status: Active Protocol: Activity Type Activity Date Activity User E-Sign Co-Sign Detail Recorded Client Recorded Date Recorded By Document 03/14/20 11:23 MW [id number] 03/14/20 11:24 MW 03/14/20 11:23 Wound Center Nurse 2 [Procedure/Treatment] #20 sacral -Time 11:23 -Correct Patient Yes -Correct Side, Site, Position Yes -Correct Procedure Yes -Procedure Performed Yes -Type of Procedure Debridement -Clinical Debridement Subcutaneous -Post Debridement Size (cm) - Length 1.3 -Post Debridement Size (cm) - Width 0.3 -Post Debridement Size (cm) - Depth 0.1 -Total Square Cm 0.39 -Wound/Ulcer Outcome Not Healed -Ulcer Cleansing Rinsed/ Irrigated with Saline -Foul Odor after Cleansing No -Bioengineered Tissue No -Bleeding Controlled with Pressure -Offloading No -Treatment Response Procedure Tolerated Well [See Physician Procedure note for Specifics] Pain Scale: 0-10 Numeric [Pain] -Is Patient Pain Free? Yes Musculoskeletal: No Muscle Wasting Neurological: Cranial nerves II-XII grossly intact Psych/Mental Status: Normal Affect Debridement Note Post-Debridement Measurements/Treatment WC - Nurse 2 - General Ulcer CM Notes Start: 03/07/20 11:03 Freq: Status: Active Protocol: Activity Type Activity Date Activity User E-Sign Co-Sign Detail Recorded Client Recorded Date Recorded By Document 03/07/20 11:07 MW [id number] 03/07/20 11:08 MW Document 03/14/20 11:23 MW [id number] 03/14/20 11:24 MW 03/07/20 03/14/20 11:07 11:23 Wound Center Nurse 2 #20 sacral -Time 11: 11:23 -Correct Patient Yes Yes -Correct Side, Site, Position Yes Yes -Correct Procedure Yes Yes -Procedure Performed Yes Yes -Type of Procedure Debridement Debridement -Clinical Debridement Subcutaneous Subcutaneous -Post Debridement Size (cm) - Length 3.0 1.3 -Post Debridement Size (cm) - Width 0.3 0.3 -Post Debridement Size (cm) - Depth 0.1 0.1 -Total Square Cm 0.90 0.39 -Wound/Ulcer Outcome Not Healed Not Healed -Ulcer Cleansing Rinsed/ Rinsed/ Irrigated with Irrigated with Saline Saline -Foul Odor after Cleansing No No -Bioengineered Tissue No No -Bleeding Controlled with Pressure Pressure -Offloading No No -Treatment Response Procedure Procedure Tolerated Well Tolerated Well Pain Scale: 0-10 Numeric Is Patient Pain Free? Yes Yes Wound debrided: Gluteal cleft Type of Debridement: Excisional debridement Anesthesia Used: 4% Lidocaine Solution Depth: Down to and including healthy tissue, in the subcutaneous layer Percentage of wound debrided: 100 Instrument Used: - - 1mm Tissue Removed: Slough and devitalized tissue Severity: Fat Layer Exposed Amount of bleeding with debridement: Mild Bleeding Controlled with: Pressure Patient tolerated procedure well Assessment/Plan Active Problems Lymphedema (Chronic) Secondary to chronic venous insufficieny of Bilateral Lower Extremity. Decubitus ulcer (Chronic) Gluteal Cleft Morbid obesity (Chronic) Assessment: Same as above. Plan: Debridement done as documented above. Procedure was well-tolerated. Area of ulceration itself has improved however significant maceration. Stop Promogran. Silver cell daily to twice daily depending on drainage. Offloading strongly recommended. Elevate lower extremities when seated and in bed. Use lymphedema pump consistently. Continue Isreal wraps for compression. Increase protein intake. Her questions were answered and she was advised to call with any further questions or concerns. Follow-up in 1 week. This note was generated with [employer] software. It may contain incorrect words, spelling, and punctuation that were not noted in checking the note before signing. [id number]: [id number] [place] subq tissue 20 sq cm/<
--- NOTE | 2020-03-21 13:32 | WC ---
Pt called with c/o of new blisters. pt had cancelled her appt for today and later called in with a problem. Unable to contact pt, Phone number that was left to call was no longer in service and phone number on [facility] Voice mail was full, unable to leave a message for pt.
[2020-03-28 09:24] VITALS: BP 137/65; PULSE 62; RESP 22; TEMP 36.1; BMI 66.4
--- NOTE | 2020-03-28 10:09 | PCM.WC.PN ---
(1) Decubitus ulcer Status: Chronic Current Visit: Yes Qualifiers: Pressure injury stage: stage 2 Code(s): L89.90 - Pressure ulcer of unspecified site, unspecified stage Comment: Gluteal Cleft (2) Lymphedema Status: Chronic Current Visit: Yes Code(s): I89.0 - Lymphedema, not elsewhere classified Comment: Secondary to chronic venous insufficieny of Bilateral Lower Extremity. (3) Morbid obesity Status: Chronic Current Visit: Yes Code(s): E66.01 - Morbid (severe) obesity due to excess calories (4) Ulcer of right lower extremity with fat layer exposed Status: Acute Current Visit: Yes Code(s): L97.912 - Non-pressure chronic ulcer of unspecified part of right lower leg with fat layer exposed Comment: Gluteal Cleft. Stage III Type of Wound Date of Service: 03/28/20 Chief Complaint: Right lower extremity ulcers. History of Wound: Ms. Molina is a 49-year-old well-known to the wound center with past medical history among others as documented above who presents to the wound center due to chronic gluteal cleft pressure ulcer. Started while in a longterm. She was admitted to the longterm after hospital stay/management for heart and renal failure. While in the longterm, developed a gluteal cleft ulcer which was managed by longterm staff with Marcos Luis. Also history of recurrent bilateral lower extremity ulcers due to chronic lymphedema. Some superficial skin openings of chronic ulcer. She feels well otherwise, denies chills or fever. Now home with home health care. Progress of Wound: Presents with new/recurrent right posterior lower extremity ulcer. Has not been using her pumps as directed. - Physical Exam Vital Signs Temp Pulse Resp BP 97 F L 62 22 H 137/65 H 03/28/20 09:24 03/28/20 09:24 03/28/20 09:24 03/28/20 09:24 General: Alert, Oriented x3, Cooperative, No apparent distress HEENT: Atraumatic, Normocephalic Oral: Moist Mucosa Neck: Supple Lungs: Normal air movement Abdomen: Non Tender, Obese Extremities: No cyanosis, Edema Skin: Ulcer/ Wound Wound Measurements and Assessment WC - Nurse 1 - General Ulcer Measurement Start: 03/07/20 11:03 Freq: Status: Active Protocol: Activity Type Activity Date Activity User E-Sign Co-Sign Detail Recorded Client Recorded Date Recorded By Document 03/28/20 09:24 [facility] [id number] 03/28/20 09:40 [facility] 03/28/20 09:24 Wound Center Nurse 1 [Ulcer Assessment] #21- R LAT LE CLUSTER -Combined with other wound No -Current Size (cm) - Length 5.3 -Current Size (cm) - Width 4.5 -Current Size (cm) - Depth 0.2 -Total Square Cm 23.85 -Date of Last Picture (Recall this 03/28/20 field) -Photo Taken Yes -Epithelialization None Present -Tunneling No -Undermining/Tunneling No -Circular Undermining No -Exudate Amt Medium -Exudate Type Serous -Wound Margin Distinct, Outline Attached -Granulation Amt Medium (34-66%) -Granulation Quality [place] -Slough/Fibrin Yes -Necrosis Amt Medium (34-66%) -Necrotic Tissue Type Adherent Slough -Texture (Martha-wound Skin Appearance) Assessed, Scarring -Moisture (Martha-wound Skin Appearance Assessed, ) Maceration, Weeping -Color (Martha-wound Skin Appearance) Assessed, Erythema,Palor -Temperature (Martha-wound Skin No Abnormality Appearance) (Pt Warm) -Tenderness on Palpation (Martha-wound No Skin Appearance) -Ulcer Cleansing SOAPY WATER -Foul Odor after Cleansing No -Anesthetic Used 4% Lidocaine Solution #20 sacral -Combined with other wound No -Current Size (cm) - Length 1.6 -Current Size (cm) - Width 0.3 -Current Size (cm) - Depth 0.3 -Total Square Cm 0.48 -Date of Last Picture (Recall this 03/28/20 field) -Photo Taken Yes -Epithelialization None Present -Tunneling No -Undermining/Tunneling No -Circular Undermining No -Exudate Amt Small -Exudate Type Serous -Wound Margin Distinct, Outline Attached -Granulation Amt Large (67-100%) -Granulation Quality Red -Slough/Fibrin No -Necrosis Amt None Present (0 %) -Texture (Martha-wound Skin Appearance) Assessed, Scarring -Moisture (Martha-wound Skin Appearance Assessed ) -Color (Martha-wound Skin Appearance) Assessed -Temperature (Martha-wound Skin No Abnormality Appearance) (Pt Warm) -Tenderness on Palpation (Martha-wound No Skin Appearance) -Ulcer Cleansing Rinsed/ Irrigated with Saline -Foul Odor after Cleansing No -Anesthetic Used 5% Lidocaine Gel [Edema Assessment] -Lower Limb Edema Present Yes -Right Calf (cm) 86.1 -Right Ankle (cm) 34 -Left Calf (cm) 67.8 -Left Ankle (cm) 28.8 WC - Nurse 2 - General Ulcer CM Notes Start: 03/07/20 11:03 Freq: Status: Active Protocol: Activity Type Activity Date Activity User E-Sign Co-Sign Detail Recorded Client Recorded Date Recorded By Document 03/28/20 09:55 DV [id number] 03/28/20 09:56 DV 03/28/20 09:55 Wound Center Nurse 2 [Procedure/Treatment] #21- R LAT LE CLUSTER -Time 09:55 -Correct Patient Yes -Correct Side, Site, Position Yes -Correct Procedure Yes -Procedure Performed Yes -Type of Procedure Debridement -Clinical Debridement Subcutaneous -Post Debridement Size (cm) - Length 5.0 -Post Debridement Size (cm) - Width 1.5 -Post Debridement Size (cm) - Depth 0.1 -Total Square Cm 7.50 #20 sacral -Time 09:55 -Correct Patient Yes -Correct Side, Site, Position Yes -Correct Procedure Yes -Procedure Performed Yes -Type of Procedure Debridement -Clinical Debridement Subcutaneous -Post Debridement Size (cm) - Length 1.5 -Post Debridement Size (cm) - Width 0.2 -Post Debridement Size (cm) - Depth 0.1 -Total Square Cm 0.30 -Wound/Ulcer Outcome Not Healed [See Physician Procedure note for Specifics] Musculoskeletal: No Muscle Wasting Neurological: Cranial nerves II-XII grossly intact Psych/Mental Status: Normal Affect Debridement Note Post-Debridement Measurements/Treatment - Nurse 2 - General Ulcer CM Notes Start: 03/07/20 11:03 Freq: Status: Active Protocol: Activity Type Activity Date Activity User E-Sign Co-Sign Detail Recorded Client Recorded Date Recorded By Document 03/07/20 11:07 MW [id number] 03/07/20 11:08 MW Document 03/14/20 11:23 MW [id number] 03/14/20 11:24 MW Document 03/28/20 09:55 DV [id number] 03/28/20 09:56 DV 03/07/20 03/14/20 03/28/20 11:07 11:23 09:55 Wound Center Nurse 2 #21- R LAT LE CLUSTER -Time 09:55 -Correct Patient Yes -Correct Side, Site, Position Yes -Correct Procedure Yes -Procedure Performed Yes -Type of Procedure Debridement -Clinical Debridement Subcutaneous -Post Debridement Size (cm) - Length 5.0 -Post Debridement Size (cm) - Width 1.5 -Post Debridement Size (cm) - Depth 0.1 -Total Square Cm 7.50 #20 sacral -Time 11:07 11:23 09:55 -Correct Patient Yes Yes Yes -Correct Side, Site, Position Yes Yes Yes -Correct Procedure Yes Yes Yes -Procedure Performed Yes Yes Yes -Type of Procedure Debridement Debridement Debridement -Clinical Debridement Subcutaneous Subcutaneous Subcutaneous -Post Debridement Size (cm) - Length 3.0 1.3 1.5 -Post Debridement Size (cm) - Width 0.3 0.3 0.2 -Post Debridement Size (cm) - Depth 0.1 0.1 0.1 -Total Square Cm 0.90 0.39 0.30 -Wound/Ulcer Outcome Not Healed Not Healed Not Healed -Ulcer Cleansing Rinsed/ Rinsed/ Irrigated with Irrigated with Saline Saline -Foul Odor after Cleansing No No -Bioengineered Tissue No No -Bleeding Controlled with Pressure Pressure -Offloading No No -Treatment Response Procedure Procedure Tolerated Well Tolerated Well Pain Scale: 0-10 Numeric Is Patient Pain Free? Yes Yes Wound debrided: Gluteal Cleft Type of Debridement: Excisional debridement Anesthesia Used: 4% Lidocaine Solution Depth: Down to and including healthy tissue, in the subcutaneous layer Percentage of wound debrided: 100 Instrument Used: 3mm curette Tissue Removed: Slough and devitalized tissue Severity: Fat Layer Exposed Amount of bleeding with debridement: Mild Bleeding Controlled with: Pressure Patient tolerated procedure well - Additional Wound Wound debrided: Right lower extremity cluster ( Posterior ) Type of Debridement: Excisional debridement Anesthesia Used: 4% Lidocaine Solution Depth: Down to and including healthy tissue, in the subcutaneous layer Percentage of wound debrided: 100 Instrument Used: 5mm curette Tissue Removed: Slough and devitalized tissue Severity: Fat Layer Exposed Amount of bleeding with debridement: Mild Bleeding Controlled with: Pressure Patient tolerated procedure: Patient tolerated procedure well Assessment/Plan Active Problems Lymphedema (Chronic) Secondary to chronic venous insufficieny of Bilateral Lower Extremity. Decubitus ulcer (Chronic) Gluteal Cleft Ulcer of right lower extremity with fat layer exposed (Acute) Gluteal Cleft. Stage III Morbid obesity (Chronic) Assessment: Same as above. Plan: Debridement done as documented above. Procedure was well-tolerated. Silver cell to all ulcers. Change sacral daily to twice daily and right lower extremity 2 - 4x daily. Offloading strongly recommended. Elevate lower extremities when seated and in bed. Use lymphedema pump consistently. 4x 30 minutes daily. Continue Isreal wraps for compression. Increase protein intake. Her questions were answered and she was advised to call with any further questions or concerns. Follow-up in 1 week. This note was generated with [employer] dictation software. It may contain incorrect words, spelling, and punctuation that were not noted in checking the note before signing. [id number]: [id number] [place] subq tissue 20 sq cm/<
== END 2020-04-02 23:59 ==
LOC: WC 09:30
PROVIDERS: Family Provider Family Medicine; PCP Family Medicine; Visit Provider Internal Medicine
DX: L89.302 Pressure ulcer of unspecified buttock, stage 2 (principal); L89.303 Pressure ulcer of unspecified buttock, stage 3; L97.912 Non-pressure chronic ulcer of unspecified part of right lower leg with fat layer exposed; I89.0 Lymphedema, not elsewhere classified; E66.01 Morbid (severe) obesity due to excess calories
CPT/HCPCS: 11042

== ENCOUNTER 2020-04-25 11:30 | Outpatient (RCR) | payer MEDICARE, MEDICAID, SELFPAY ==
[2020-04-03 00:19] VITALS: BP 137/65; PULSE 62; RESP 22; TEMP 36.1
[2020-04-11 09:24] VITALS: BP 140/68; PULSE 62; RESP 18; TEMP 36.5; BMI 66.4
--- NOTE | 2020-04-11 10:13 | PN.PCM_ITS ---
(1) Ulcer of right lower extremity with fat layer exposed Status: Acute Current Visit: Yes Code(s): L97.912 - Non-pressure chronic ulcer of unspecified part of right lower leg with fat layer exposed Comment: Gluteal Cleft. Stage III (2) Decubitus ulcer Status: Chronic Current Visit: Yes Code(s): L89.90 - Pressure ulcer of unspecified site, unspecified stage Comment: Gluteal Cleft (3) Lymphedema Status: Chronic Current Visit: Yes Code(s): I89.0 - Lymphedema, not elsewhere classified Comment: Secondary to chronic venous insufficieny of Bilateral Lower Extremity. (4) Morbid obesity Status: Chronic Current Visit: Yes Code(s): E66.01 - Morbid (severe) obesity due to excess calories Type of Wound Date of Service: 04/11/20 Chief Complaint: Right lower extremity ulcers. History of Wound: Ms. Molina is a 49-year-old well-known to the wound center with past medical history among others as documented above who presents to the wound center due to chronic gluteal cleft pressure ulcer. Started while in a longterm. She was admitted to the longterm after hospital stay/management for heart and renal failure. While in the longterm, developed a gluteal cleft ulcer which was managed by longterm staff with ? Toby. Also history of recurrent bilateral lower extremity ulcers due to chronic lymphedema. Some superficial skin openings of chronic ulcer. She feels well otherwise, denies chills or fever. Now home with home health care. Progress of Wound: No significant changes. - Physical Exam Vital Signs Temp Pulse Resp BP 97.7 F L 62 18 140/68 H 04/11/20 09:24 04/11/20 09:24 04/11/20 09:24 04/11/20 09:24 General: Alert, Oriented x3, Cooperative, No apparent distress HEENT: Atraumatic, Normocephalic Oral: Moist Mucosa Neck: Supple Lungs: Normal air movement Abdomen: Non Tender, Obese Extremities: No cyanosis, Edema Skin: Ulcer/ Wound Wound Measurements and Assessment WC - Nurse 1 - General Ulcer Measurement Start: 04/07/20 10:20 Freq: Status: Active Protocol: Activity Type Activity Date Activity User E-Sign Co-Sign Detail Recorded Client Recorded Date Recorded By Document 04/11/20 09:24 RB [id number] 04/11/20 09:40 RB 04/11/20 09:24 Wound Center Nurse 1 [Ulcer Assessment] #21- R LATERAL/ POSTERIOR LE CLUSTER -Combined with other wound No -Current Size (cm) - Length 0.3 -Current Size (cm) - Width 1.5 -Current Size (cm) - Depth 0.2 -Total Square Cm 0.45 -Tunneling No -Undermining/Tunneling No -Circular Undermining No -Exudate Amt Large -Exudate Type Serosanguineous -Wound Margin Flat & Intact -Granulation Amt Medium (34-66%) -Granulation Quality [place],Red -Slough/Fibrin Yes -Necrosis Amt Small (1-33%) -Necrotic Tissue Type Adherent Slough -Structure Exposed N/A -Texture (Martha-wound Skin Appearance) Assessed, Excoriation -Moisture (Martha-wound Skin Appearance Assessed, ) Maceration -Color (Martha-wound Skin Appearance) Assessed, Erythema -Temperature (Martha-wound Skin No Abnormality Appearance) (Pt Warm) -Tenderness on Palpation (Martha-wound No Skin Appearance) -Ulcer Cleansing Wound Cleanser -Foul Odor after Cleansing No -Anesthetic Used 4% Lidocaine Solution #20 sacral -Combined with other wound No -Current Size (cm) - Length 3 -Current Size (cm) - Width 0.5 -Current Size (cm) - Depth 0.1 -Total Square Cm 1.5 -Tunneling No -Undermining/Tunneling No -Circular Undermining No -Exudate Amt Small -Exudate Type Serosanguineous -Wound Margin Flat & Intact -Granulation Amt Medium (34-66%) -Granulation Quality [place] -Slough/Fibrin Yes -Necrosis Amt Small (1-33%) -Necrotic Tissue Type Adherent Slough -Structure Exposed N/A -Texture (Martha-wound Skin Appearance) Assessed -Moisture (Martha-wound Skin Appearance Assessed, ) Maceration -Color (Martha-wound Skin Appearance) Assessed -Temperature (Martha-wound Skin No Abnormality Appearance) (Pt Warm) -Tenderness on Palpation (Martha-wound No Skin Appearance) -Ulcer Cleansing Wound Cleanser -Foul Odor after Cleansing No -Anesthetic Used 4% Lidocaine Solution [Edema Assessment] -Lower Limb Edema Present Yes -Right Calf (cm) 86 -Right Ankle (cm) 37 WC - Nurse 2 - General Ulcer CM Notes Start: 04/07/20 10:20 Freq: Status: Active Protocol: Activity Type Activity Date Activity User E-Sign Co-Sign Detail Recorded Client Recorded Date Recorded By Document 04/11/20 09:49 MW [id number] 04/11/20 09:54 MW 04/11/20 09:49 Wound Center Nurse 2 [Procedure/Treatment] #21- R LATERAL/ POSTERIOR LE CLUSTER -Time 09:51 -Correct Patient Yes -Correct Side, Site, Position Yes -Correct Procedure Yes -Procedure Performed Yes -Type of Procedure Debridement -Clinical Debridement Subcutaneous -Post Debridement Size (cm) - Length 5.0 -Post Debridement Size (cm) - Width 1.3 -Post Debridement Size (cm) - Depth 0.1 -Total Square Cm 6.50 -Wound/Ulcer Outcome Not Healed -Ulcer Cleansing Rinsed/ Irrigated with Saline -Foul Odor after Cleansing No -Bioengineered Tissue No -Bleeding Controlled with Pressure -Offloading No -Treatment Response Procedure Tolerated Well #20 sacral -Time 09:51 -Correct Patient Yes -Correct Side, Site, Position Yes -Correct Procedure Yes -Procedure Performed Yes -Type of Procedure Debridement -Clinical Debridement Subcutaneous -Post Debridement Size (cm) - Length 3.0 -Post Debridement Size (cm) - Width 0.2 -Post Debridement Size (cm) - Depth 0.1 -Total Square Cm 0.60 -Wound/Ulcer Outcome Not Healed -Ulcer Cleansing Rinsed/ Irrigated with Saline -Foul Odor after Cleansing No -Bioengineered Tissue No -Bleeding Controlled with Pressure -Offloading No -Treatment Response Procedure Tolerated Well [See Physician Procedure note for Specifics] Pain Scale: 0-10 Numeric [Pain] -Is Patient Pain Free? Yes Musculoskeletal: No Muscle Wasting Neurological: Cranial nerves II-XII grossly intact Psych/Mental Status: Normal Affect Debridement Note Post-Debridement Measurements/Treatment WC - Nurse 2 - General Ulcer CM Notes Start: 04/07/20 10:20 Freq: Status: Active Protocol: Activity Type Activity Date Activity User E-Sign Co-Sign Detail Recorded Client Recorded Date Recorded By Document 04/11/20 09:49 MW [id number] 04/11/20 09:54 MW 04/11/20 09:49 Wound Center Nurse 2 #21- R LATERAL/ POSTERIOR LE CLUSTER -Time 09:51 -Correct Patient Yes -Correct Side, Site, Position Yes -Correct Procedure Yes -Procedure Performed Yes -Type of Procedure Debridement -Clinical Debridement Subcutaneous -Post Debridement Size (cm) - Length 5.0 -Post Debridement Size (cm) - Width 1.3 -Post Debridement Size (cm) - Depth 0.1 -Total Square Cm 6.50 -Wound/Ulcer Outcome Not Healed -Ulcer Cleansing Rinsed/ Irrigated with Saline -Foul Odor after Cleansing No -Bioengineered Tissue No -Bleeding Controlled with Pressure -Offloading No -Treatment Response Procedure Tolerated Well #20 sacral -Time 09:51 -Correct Patient Yes -Correct Side, Site, Position Yes -Correct Procedure Yes -Procedure Performed Yes -Type of Procedure Debridement -Clinical Debridement Subcutaneous -Post Debridement Size (cm) - Length 3.0 -Post Debridement Size (cm) - Width 0.2 -Post Debridement Size (cm) - Depth 0.1 -Total Square Cm 0.60 -Wound/Ulcer Outcome Not Healed -Ulcer Cleansing Rinsed/ Irrigated with Saline -Foul Odor after Cleansing No -Bioengineered Tissue No -Bleeding Controlled with Pressure -Offloading No -Treatment Response Procedure Tolerated Well Pain Scale: 0-10 Numeric Is Patient Pain Free? Yes Wound debrided: Gluteal cleft Wound Grade/Stage: Stage II Type of Debridement: Excisional debridement Anesthesia Used: 4% Lidocaine Solution Depth: Down to and including healthy tissue, in the subcutaneous layer Percentage of wound debrided: 100 Instrument Used: 3mm curette Tissue Removed: Slough and devitalized tissue Severity: Fat Layer Exposed Amount of bleeding with debridement: Mild Bleeding Controlled with: Pressure Patient tolerated procedure well Assessment/Plan Active Problems Lymphedema (Chronic) Secondary to chronic venous insufficieny of Bilateral Lower Extremity. Decubitus ulcer (Chronic) Gluteal Cleft Ulcer of right lower extremity with fat layer exposed (Acute) Gluteal Cleft. Stage III Morbid obesity (Chronic) Assessment: Same as above. Plan: Debridement done as documented above. Procedure was well-tolerated. Cultures taken of gluteal cleft ulcers. No significant improvement. Silver cell to all ulcers. Change sacral daily to twice daily and right lower extremity 2 - 4x daily. Offloading strongly recommended. Elevate lower extremities when seated and in bed. Use lymphedema pump consistently. 4x 30 minutes daily. Continue Isreal wraps for compression. Increase protein intake. Her questions were answered and she was advised to call with any further questions or conc erns. Follow-up in 1 week. This note was generated with [employer] dictation software. It may contain incorrect words, spelling, and punctuation that were not noted in checking the note before signing. [id number]: [id number] [place] subq tissue 20 sq cm/<
[2020-04-18 09:35] VITALS: BP 156/78; PULSE 58; RESP 16; TEMP 35.6; BMI 66.4
--- NOTE | 2020-04-18 12:09 | PN.PCM_ITS ---
(1) Ulcer of right lower extremity with fat layer exposed Status: Acute Current Visit: Yes Code(s): L97.912 - Non-pressure chronic ulcer of unspecified part of right lower leg with fat layer exposed Comment: Gluteal Cleft. Stage III (2) Decubitus ulcer Status: Chronic Current Visit: Yes Code(s): L89.90 - Pressure ulcer of unspecified site, unspecified stage Comment: Gluteal Cleft (3) Lymphedema Status: Chronic Current Visit: Yes Code(s): I89.0 - Lymphedema, not elsewhere classified Comment: Secondary to chronic venous insufficieny of Bilateral Lower Extremity. (4) Morbid obesity Status: Chronic Current Visit: Yes Code(s): E66.01 - Morbid (severe) obesity due to excess calories Type of Wound Date of Service: 04/18/20 Chief Complaint: Right lower extremity ulcers. History of Wound: Ms. Molina is a 49-year-old well-known to the wound center with past medical history among others as documented above who presents to the wound center due to chronic gluteal cleft pressure ulcer. Started while in a long-term. She was admitted to the long-term after hospital stay/management for heart and renal failure. While in the long-term, developed a gluteal cleft ulcer which was managed by long-term staff with ? Toby. Also history of recurrent bilateral lower extremity ulcers due to chronic lymphedema. Some superficial skin openings of chronic ulcer. She feels well otherwise, denies chills or fever. Now home with home health care. Progress of Wound: Presents today with significant right lower extremity tenderness, redness and feeling unwell. Gluteal cleft ulcer is stable. Was s een at the emergency room yesterday and inpatient stay was recommended. - Physical Exam Vital Signs Temp Pulse Resp BP 96.1 F L 58 L 16 156/78 H 04/18/20 09:35 04/18/20 09:35 04/18/20 09:35 04/18/20 09:35 General: Alert, Oriented x3, Cooperative, No apparent distress HEENT: Atraumatic, Normocephalic Oral: Moist Mucosa Neck: Supple Lungs: Normal air movement Abdomen: Non Tender, Obese Extremities: No cyanosis, Edema Skin: Ulcer/ Wound Wound Measurements and Assessment WC - Nurse 1 - General Ulcer Measurement Start: 04/07/20 10:20 Freq: Status: Active Protocol: Activity Type Activity Date Activity User E-Sign Co-Sign Detail Recorded Client Recorded Date Recorded By Document 04/18/20 09:35 CRIS [id number] 04/18/20 09:52 CRIS 04/18/20 09:35 Wound Center Nurse 1 [Ulcer Assessment] #21- R LATERAL/ POSTERIOR LE CLUSTER -Combined with other wound No -Current Size (cm) - Length 0.2 -Current Size (cm) - Width 2.0 -Current Size (cm) - Depth 0.2 -Total Square Cm 0.40 -Photo Taken No -Epithelialization Medium 34-66% -Tunneling No -Undermining/Tunneling No -Circular Undermining No -Exudate Amt Small -Exudate Type Serosanguineous -Wound Margin Flat & Intact -Granulation Amt Large (67-100%) -Granulation Quality Red -Slough/Fibrin Yes -Necrosis Amt Small (1-33%) -Necrotic Tissue Type Adherent Slough -Structure Exposed N/A -Texture (Martha-wound Skin Appearance) Assessed, Excoriation -Moisture (Martha-wound Skin Appearance Assessed, ) Weeping -Color (Martha-wound Skin Appearance) Assessed, Erythema -Temperature (Martha-wound Skin No Abnormality Appearance) (Pt Warm) -Tenderness on Palpation (Martha-wound No Skin Appearance) -Ulcer Cleansing Wound Cleanser -Foul Odor after Cleansing No -Anesthetic Used 4% Lidocaine Solution #20 sacral -Combined with other wound No -Current Size (cm) - Length 0.3 -Current Size (cm) - Width 2.6 -Current Size (cm) - Depth 0.2 -Total Square Cm 0.78 -Photo Taken No -Epithelialization Small 1-33% -Tunneling No -Undermining/Tunneling No -Circular Undermining No -Exudate Amt Small -Exudate Type Serosanguineous -Wound Margin Flat & Intact -Granulation Amt Large (67-100%) -Granulation Quality Red -Slough/Fibrin Yes -Necrosis Amt Small (1-33%) -Necrotic Tissue Type Adherent Slough -Structure Exposed N/A -Texture (Martha-wound Skin Appearance) Assessed -Moisture (Martha-wound Skin Appearance Assessed,Dry/ ) Scaly -Color (Martha-wound Skin Appearance) Assessed -Temperature (Martha-wound Skin No Abnormality Appearance) (Pt Warm) -Tenderness on Palpation (Martha-wound No Skin Appearance) -Ulcer Cleansing Rinsed/ Irrigated with Saline -Foul Odor after Cleansing No -Anesthetic Used 4% Lidocaine Solution [Edema Assessment] -Lower Limb Edema Present Yes -Right Calf (cm) 83 -Right Ankle (cm) 37 WC - Nurse 2 - General Ulcer CM Notes Start: 04/07/20 10:20 Freq: Status: Active Protocol: Activity Type Activity Date Activity User E-Sign Co-Sign Detail Recorded Client Recorded Date Recorded By Document 04/18/20 10:20 MW [id number] 04/18/20 10:24 MW 04/18/20 10:20 Wound Center Nurse 2 [Procedure/Treatment] #21- R LATERAL/ POSTERIOR LE CLUSTER -Time 10:22 -Correct Patient Yes -Correct Side, Site, Position Yes -Correct Procedure Yes -Procedure Performed No -Post Debridement Size (cm) - Length 0.2 -Post Debridement Size (cm) - Width 0.2 -Post Debridement Size (cm) - Depth 0.2 -Total Square Cm 0.04 -Wound/Ulcer Outcome Not Healed -Ulcer Cleansing Rinsed/ Irrigated with Saline -Foul Odor after Cleansing No -Bioengineered Tissue No -Bleeding Controlled with NA -Offloading No -Treatment Response Procedure Tolerated Well #20 sacral -Time 10:23 -Correct Patient Yes -Correct Side, Site, Position Yes -Correct Procedure Yes -Procedure Performed Yes -Type of Procedure Debridement -Clinical Debridement Subcutaneous -Post Debridement Size (cm) - Length 2.0 -Post Debridement Size (cm) - Width 0.2 -Post Debridement Size (cm) - Depth 0.1 -Total Square Cm 0.40 -Wound/Ulcer Outcome Not Healed -Ulcer Cleansing Rinsed/ Irrigated with Saline -Foul Odor after Cleansing No -Bioengineered Tissue No -Bleeding Controlled with Pressure -Offloading No -Treatment Response Procedure Tolerated Well [See Physician Procedure note for Specifics] Pain Scale: 0-10 Numeric [Pain] -Is Patient Pain Free? Yes Musculoskeletal: No Muscle Wasting Neurological: Cranial nerves II-XII grossly intact Psych/Mental Status: Normal Affect Debridement Note Post-Debridement Measurements/Treatment WC - Nurse 2 - General Ulcer CM Notes Start: 04/07/20 10:20 Freq: Status: Active Protocol: Activity Type Activity Date Activity User E-Sign Co-Sign Detail Recorded Client Recorded Date Recorded By Document 04/11/20 09:49 MW [id number] 04/11/20 09:54 MW Document 04/18/20 10:20 MW [id number] 04/18/20 10:24 MW 04/11/20 04/18/20 09:49 10:20 Wound Center Nurse 2 #21- R LATERAL/ POSTERIOR LE CLUSTER -Time 09:51 10:22 -Correct Patient Yes Yes -Correct Side, Site, Position Yes Yes -Correct Procedure Yes Yes -Procedure Performed Yes No -Type of Procedure Debridement -Clinical Debridement Subcutaneous -Post Debridement Size (cm) - Length 5.0 0.2 -Post Debridement Size (cm) - Width 1.3 0.2 -Post Debridement Size (cm) - Depth 0.1 0.2 -Total Square Cm 6.50 0.04 -Wound/Ulcer Outcome Not Healed Not Healed -Ulcer Cleansing Rinsed/ Rinsed/ Irrigated with Irrigated with Saline Saline -Foul Odor after Cleansing No No -Bioengineered Tissue No No -Bleeding Controlled with Pressure NA -Offloading No No -Treatment Response Procedure Procedure Tolerated Well Tolerated Well #20 sacral -Time 09:51 10:23 -Correct Patient Yes Yes -Correct Side, Site, Position Yes Yes -Correct Procedure Yes Yes -Procedure Performed Yes Yes -Type of Procedure Debridement Debridement -Clinical Debridement Subcutaneous Subcutaneous -Post Debridement Size (cm) - Length 3.0 2.0 -Post Debridement Size (cm) - Width 0.2 0.2 -Post Debridement Size (cm) - Depth 0.1 0.1 -Total Square Cm 0.60 0.40 -Wound/Ulcer Outcome Not Healed Not Healed -Ulcer Cleansing Rinsed/ Rinsed/ Irrigated with Irrigated with Saline Saline -Foul Odor after Cleansing No No -Bioengineered Tissue No No -Bleeding Controlled with Pressure Pressure -Offloading No No -Treatment Response Procedure Procedure Tolerated Well Tolerated Well Pain Scale: 0-10 Numeric Is Patient Pain Free? Yes Yes Wound debrided: Gluteal Cleft Type of Debridement: Excisional debridement Anesthesia Used: 4% Lidocaine Solution Depth: Down to and including healthy tissue, in the subcutaneous layer Percentage of wound debrided: 100 Instrument Used: 3mm curette Tissue Removed: Slough and devitalized tissue Severity: Fat Layer Exposed Amount of bleeding with debridement: Mild Bleeding Controlled with: Pressure Patient tolerated procedure well Assessment/Plan Active Problems Lymphedema (Chronic) Secondary to chronic venous insufficieny of Bilateral Lower Extremity. Decubitus ulcer (Chronic) Gluteal Cleft Ulcer of right lower extremity with fat layer exposed (Acute) Gluteal Cleft. Stage III Morbid obesity (Chronic) Assessment: Same as above. Plan: Debridement done as documented above. Procedure was well-tolerated. Right lower extremity does appear cellulitic. Was prescribed clindamycin at the emergency room however she is yet to pick it up. Feels unwell and reports a lot of pain in her right lower extremity. Erythema and differential warmth appreciated. Typically does not do well on p.o. antibiotics, strongly advised to represent to the emergency room and go ahead with inpatient care. She voiced understanding. Continue silver cell to gluteal cleft ulcer. Xeroform and ABD to right lower extremity. Follow-up in a week. Offloading strongly re commended. Elevate lower extremities when seated and in bed. Use lymphedema pump consistently. 4x 30 minutes daily. Continue Isreal wraps for compression. Increase protein intake. Her questions were answered and she was advised to call with any further questions or concerns. Follow-up in 1 week. This note was generated with [employer] dictation software. It may contain incorrect words, spelling, and punctuation that were not noted in checking the note before signing. [id number]: [id number] [place] subq tissue 20 sq cm/<
== END 2020-05-03 23:59 ==
LOC: WC 11:30
PROVIDERS: Family Provider Family Medicine; PCP Family Medicine; Visit Provider Internal Medicine
DX: L89.892 Pressure ulcer of other site, stage 2 (principal); E66.01 Morbid (severe) obesity due to excess calories; I89.0 Lymphedema, not elsewhere classified; Z68.44 Body mass index [BMI] 60.0-69.9, adult; L89.893 Pressure ulcer of other site, stage 3
CPT/HCPCS: 11042; 87070; 87075; 87077; 87186; 87205

== ENCOUNTER 2020-05-23 10:15 | Outpatient (RCR) | payer MEDICARE, MEDICAID, SELFPAY ==
[2020-04-18 09:35] VITALS: BMI 66.4
[2020-05-04 00:19] VITALS: BP 156/78; PULSE 58; RESP 16; TEMP 35.6
[2020-05-09 11:26] VITALS: BP 154/65; PULSE 58; RESP 18; TEMP 36.3; BMI 66.4
--- NOTE | 2020-05-09 12:52 | PCM.WC.PN ---
(1) Ulcer of right lower extremity with fat layer exposed Status: Chronic Current Visit: Yes Code(s): L97.912 - Non-pressure chronic ulcer of unspecified part of right lower leg with fat layer exposed Comment: Gluteal Cleft. Stage III (2) Decubitus ulcer Status: Chronic Current Visit: Yes Qualifiers: Pressure injury stage: stage 3 Code(s): L89.90 - Pressure ulcer of unspecified site, unspecified stage Comment: Gluteal Cleft (3) Morbid obesity Status: Chronic Current Visit: Yes Code(s): E66.01 - Morbid (severe) obesity due to excess calories Type of Wound Date of Service: 05/09/20 Chief Complaint: Right lower extremity ulcers. History of Wound: Ms. Molina is a 49-year-old well-known to the wound center with past medical history among others as documented above who presents to the wound center due to chronic gluteal cleft pressure ulcer. Started while in a senior living. She was admitted to the senior living after hospital stay/management for heart and renal failure. While in the senior living, developed a gluteal cleft ulcer which was managed by senior living staff with ? Toby. Also history of recurrent bilateral lower extremity ulcers due to chronic lymphedema. Some superficial skin openings of chronic ulcer. She feels well otherwise, denies chills or fever. Now home with home health care. Progress of Wound: Right lower extremity ulcer is healed. Gluteal cleft is improving. - Physical Exam Vital Signs Temp Pulse Resp BP 97.3 F L 58 L 18 154/65 H 05/09/20 11:26 05/09/20 11:26 05/09/20 11:26 05/09/20 11:26 General: Alert, Oriented x3, Cooperative, No apparent distress HEENT: Atraumatic, Normocephalic Oral: Moist Mucosa Neck: Supple Lungs: Normal air movement Abdomen: Non Tender, Obese Extremities: No cyanosis, Edema Skin: Ulcer/ Wound Wound Measurements and Assessment WC - Nurse 1 - General Ulcer Measurement Start: 05/09/20 11:26 Freq: Status: Active Protocol: Activity Type Activity Date Activity User E-Sign Co-Sign Detail Recorded Client Recorded Date Recorded By Document 05/09/20 11:26 RB [id number] 05/09/20 11:29 RB 05/09/20 11:26 Wound Center Nurse 1 [Ulcer Assessment] #21- R LATERAL/ POSTERIOR LE CLUSTER -Combined with other wound No -Current Size (cm) - Length 0.1 -Current Size (cm) - Width 0.1 -Current Size (cm) - Depth 0.1 -Total Square Cm 0.01 -Photo Taken Yes -Tunneling No -Undermining/Tunneling No -Circular Undermining No -Exudate Amt Medium -Exudate Type Serosanguineous -Wound Margin Flat & Intact -Granulation Amt Large (67-100%) -Granulation Quality Juliette -Slough/Fibrin Yes -Necrosis Amt Small (1-33%) -Necrotic Tissue Type Adherent Slough -Structure Exposed N/A -Texture (Martha-wound Skin Appearance) Excoriation -Moisture (Martha-wound Skin Appearance Maceration ) -Color (Martha-wound Skin Appearance) Erythema -Temperature (Martha-wound Skin No Abnormality Appearance) (Pt Warm) -Tenderness on Palpation (Martha-wound No Skin Appearance) -Ulcer Cleansing Wound Cleanser -Foul Odor after Cleansing No -Anesthetic Used 4% Lidocaine Solution #20 sacral -Combined with other wound No -Current Size (cm) - Length 4.2 -Current Size (cm) - Width 0.3 -Current Size (cm) - Depth 0.1 -Total Square Cm 1.26 -Photo Taken Yes -Tunneling No -Undermining/Tunneling No -Circular Undermining No -Exudate Amt Small -Exudate Type Serosanguineous -Wound Margin Flat & Intact -Granulation Amt Medium (34-66%) -Granulation Quality Juliette -Slough/Fibrin Yes -Necrosis Amt Small (1-33%) -Necrotic Tissue Type Adherent Slough -Structure Exposed N/A -Texture (Martha-wound Skin Appearance) Assessed -Moisture (Martha-wound Skin Appearance Assessed, ) Maceration -Color (Martha-wound Skin Appearance) Assessed -Temperature (Martha-wound Skin No Abnormality Appearance) (Pt Warm) -Tenderness on Palpation (Martha-wound No Skin Appearance) -Ulcer Cleansing Wound Cleanser -Foul Odor after Cleansing No -Anesthetic Used 4% Lidocaine Solution [Edema Assessment] -Lower Limb Edema Present Yes -Right Calf (cm) 87 -Right Ankle (cm) 34.5 WC - Nurse 2 - General Ulcer CM Notes Start: 05/09/20 11:26 Freq: Status: Active Protocol: Activity Type Activity Date Activity User E-Sign Co-Sign Detail Recorded Client Recorded Date Recorded By Document 05/09/20 11:52 MW [id number] 05/09/20 11:54 MW 05/09/20 11:52 Wound Center Nurse 2 [Procedure/Treatment] #21- R LATERAL/ POSTERIOR LE CLUSTER -Time 11:54 -Correct Patient Yes -Correct Side, Site, Position Yes -Correct Procedure Yes -Procedure Performed No -Post Debridement Size (cm) - Length 0 -Post Debridement Size (cm) - Width 0 -Post Debridement Size (cm) - Depth 0 -Total Square (cm) 0 -Wound/Ulcer Outcome Healed- Epithelialized #20 sacral -Time 11:53 -Correct Patient Yes -Correct Side, Site, Position Yes -Correct Procedure Yes -Procedure Performed No -Wound/Ulcer Outcome Not Healed -Ulcer Cleansing Rinsed/ Irrigated with Saline -Foul Odor after Cleansing No -Bioengineered Tissue No -Bleeding Controlled with Pressure -Offloading No -Treatment Response Procedure Tolerated Well [See Physician Procedure note for Specifics] Pain Scale: 0-10 Numeric [Pain] -Is Patient Pain Free? Yes Musculoskeletal: No Muscle Wasting Neurological: Cranial nerves II-XII grossly intact Psych/Mental Status: Normal Affect Debridement Note Post-Debridement Measurements/Treatment WC - Nurse 2 - General Ulcer CM Notes Start: 05/09/20 11:26 Freq: Status: Active Protocol: Activity Type Activity Date Activity User E-Sign Co-Sign Detail Recorded Client Recorded Date Recorded By Document 05/09/20 11:52 MW [id number] 05/09/20 11:54 MW 05/09/20 11:52 Wound Center Nurse 2 #21- R LATERAL/ POSTERIOR LE CLUSTER -Time 11:54 -Correct Patient Yes -Correct Side, Site, Position Yes -Correct Procedure Yes -Procedure Performed No -Post Debridement Size (cm) - Length 0 -Post Debridement Size (cm) - Width 0 -Post Debridement Size (cm) - Depth 0 -Total Square (cm) 0 -Wound/Ulcer Outcome Healed- Epithelialized #20 sacral -Time 11:53 -Correct Patient Yes -Correct Side, Site, Position Yes -Correct Procedure Yes -Procedure Performed No -Wound/Ulcer Outcome Not Healed -Ulcer Cleansing Rinsed/ Irrigated with Saline -Foul Odor after Cleansing No -Bioengineered Tissue No -Bleeding Controlled with Pressure -Offloading No -Treatment Response Procedure Tolerated Well Pain Scale: 0-10 Numeric Is Patient Pain Free? Yes No debridement was completed today Assessment/Plan Active Problems Decubitus ulcer (Chronic) Gluteal Cleft Ulcer of right lower extremity with fat layer exposed (Chronic) Gluteal Cleft. Stage III Morbid obesity (Chronic) Assessment: Same as above. Plan: Right lower extremity ulcer is healed status post recent hospital stay and senior living stay as well. Gluteal cleft ulcer is improving. Continue silver cell with gauze over top. Change daily. Offloading strongly recommended. Elevate lower extremities when seated and in bed. Use lymphedema pump consistently. 4x 30 minutes daily. Continue Isreal wraps for compression. Increase protein intake. Her questions were answered and she was advised to call with any further questions or concerns. Follow-up in 2 weeks. This note was generated with [employer] dictation software. It may contain incorrect words, spelling, and punctuation that were not noted in checking the note before signing. Office Visits / Consults: [id number] L3 Est
[2020-05-23 10:14] VITALS: BP 160/83; PULSE 60; RESP 18; TEMP 36.4; BMI 66.4
--- NOTE | 2020-05-23 13:10 | PN.PCM_ITS ---
(1) Ulcer of right lower extremity with fat layer exposed Status: Chronic Code(s): L97.912 - Non-pressure chronic ulcer of unspecified part of right lower leg with fat layer exposed Comment: Gluteal Cleft. Stage III (2) Decubitus ulcer Status: Resolved Qualifiers: Pressure injury stage: stage 3 Code(s): L89.90 - Pressure ulcer of unspecified site, unspecified stage Comment: Gluteal Cleft, Stage III (3) Morbid obesity Status: Chronic Code(s): E66.01 - Morbid (severe) obesity due to excess calori es Type of Wound Date of Service: 05/23/20 Chief Complaint: Right lower extremity ulcers. History of Wound: Ms. Molina is a 49-year-old well-known to the wound center with past medical history among others as documented above who presents to the wound center due to chronic gluteal cleft pressure ulcer. Started while in a detention. She was admitted to the detention after hospital stay/management for heart and renal failure. While in the detention, developed a gluteal cleft ulcer which was managed by detention staff with ? Ocyl. Also history of recurrent bilateral lower extremity ulcers due to chronic lymphedema. Some superficial skin openings of chronic ulcer. She feels well otherwise, denies chills or fever. Now home with home health care. Progress of Wound: Gluteal Cleft Ulcer is healed. No new concerns at this time. - Physical Exam Vital Signs Temp Pulse Resp BP 97.5 F L 60 18 160/83 H 05/23/20 10:14 05/23/20 10:14 05/23/20 10:14 05/23/20 10:14 General: Alert, Oriented x3, Cooperative, No apparent distress HEENT: Atraumatic, Normocephalic Oral: Moist Mucosa Neck: Supple Lungs: Normal air movement Abdomen: Non Tender, Obese Extremities: No cyanosis Wound Measurements and Assessment WC - Nurse 1 - General Ulcer Measurement Start: 05/09/20 11:26 Freq: Status: Discharge Protocol: Activity Type Activity Date Activity User E-Sign Co-Sign Detail Recorded Client Recorded Date Recorded By Document 05/23/20 10:14 BMF [id number] 05/23/20 10:23 BMF Edit Status 05/23/20 11:23 FERNANDO CLARK Active=>Discharge [id number] 05/23/20 11:23 FERNANDO DAJOHANNE 05/23/20 10:14 Wound Center Nurse 1 [Ulcer Assessment] #20 sacral -Combined with other wound No -Current Size (cm) - Length 0.1 -Current Size (cm) - Width 0.1 -Current Size (cm) - Depth 0.1 -Total Square Cm 0.01 -Epithelialization Large 67-100% -Tunneling No -Undermining/Tunneling No -Circular Undermining No -Texture (Martha-wound Skin Appearance) Assessed, Scarring -Moisture (Martha-wound Skin Appearance Assessed ) -Color (Martha-wound Skin Appearance) Assessed -Temperature (Martha-wound Skin No Abnormality Appearance) (Pt Warm) -Tenderness on Palpation (Martha-wound No Skin Appearance) -Ulcer Cleansing soapy water -Foul Odor after Cleansing No [Edema Assessment] -Lower Limb Edema Present Yes -Right Calf (cm) 78.6 -Right Ankle (cm) 31 -Left Calf (cm) 64.8 -Left Ankle (cm) 27.4 WC - Nurse 2 - General Ulcer CM Notes Start: 05/21/20 20:02 Freq: Status: Discharge Protocol: Activity Type Activity Date Activity User E-Sign Co-Sign Detail Recorded Client Recorded Date Recorded By Document 05/23/20 11:12 MW [id number] 05/23/20 11:13 MW Edit Status 05/23/20 11:23 FERNANDO CLARK Active=>Discharge [facility] 05/23/20 11:23 FERNANDO CLARK 05/23/20 11:12 Wound Center Nurse 2 [Procedure/Treatment] #20 sacral -Time 11:12 -Correct Patient Yes -Correct Side, Site, Position Yes -Correct Procedure Yes -Procedure Performed No -Post Debridement (cm) - Length 0 -Post Debridement (cm) - Width 0 -Post Debridement (cm) - Depth 0 -Total Square (Post) (cm) 0 -Tunneling No -Undermining/Tunneling No -Circular Undermining No -Wound/Ulcer Outcome Healed- Epithelialized [See Physician Procedure note for Specifics] Pain Scale: 0-10 Numeric [Pain] -Is Patient Pain Free? Yes FELICITY - Nurse 3 - General Ulcer D/C NN Start: 05/21/20 20:02 Freq: Status: Discharge Protocol: Activity Type Activity Date Activity User E-Sign Co-Sign Detail Recorded Client Recorded Date Recorded By Edit Status 05/23/20 11:23 FERNANDO DAEMON Active=>Discharge [id number] 05/23/20 11:23 BKG DAEMON Document 05/23/20 11:27 RB [id number] 05/23/20 11:28 RB 05/23/20 11:27 Wound Care Nurse 3 [Compression Applied] Right -Other isreal Left -Other isreal [Post Procedure Tolerated] -Treatment Response Procedure Tolerated Well Pain Scale: 0-10 Numeric [Pain] -Is Patient Pain Free? Yes Teaching: Wound Center [Wound Center Education] (Items with an * have Printed Materials Available- Please identify what is given to patient under the Teaching materials given to patient and caregiver Section. Control Swelling with Leg Elevation -Person Taught Patient -Teaching Method Discussion -Response to teaching Verbalize understanding WC - Visit Discharge [Visit Discharge Information] -Discharge Condition Stable -Ambulatory Status Ambulatory, Walker -Transportation Private Auto -Medication Reconcilliation completed No & provided to patient/care provider -Clinical Summary of Care Provided Yes Musculoskeletal: No Muscle Wasting Neurological: Cranial nerves II-XII grossly intact Psych/Mental Status: Normal Affect Debridement Note Post-Debridement Measurements/Treatment WC - Nurse 2 - General Ulcer CM Notes Start: 05/21/20 20:02 Freq: Status: Discharge Protocol: Activity Type Activity Date Activity User E-Sign Co-Sign Detail Recorded Client Recorded Date Recorded By Document 05/23/20 11:12 MW [id number] 05/23/20 11:13 MW 05/23/20 11:12 Wound Center Nurse 2 #20 sacral -Time 11:12 -Correct Patient Yes -Correct Side, Site, Position Yes -Correct Procedure Yes -Procedure Performed No -Post Debridement (cm) - Length 0 -Post Debridement (cm) - Width 0 -Post Debridement (cm) - Depth 0 -Total Square (Post) (cm) 0 -Tunneling No -Undermining/Tunneling No -Circular Undermining No -Wound/Ulcer Outcome Healed- Epithelialized Pain Scale: 0-10 Numeric Is Patient Pain Free? Yes WC - Nurse 3 - General Ulcer D/C NN Start: 05/21/20 20:02 Freq: Status: Discharge Protocol: Activity Type Activity Date Activity User E-Sign Co-Sign Detail Recorded Client Recorded Date Recorded By Document 05/23/20 11:27 RB [id number] 05/23/20 11:28 RB 05/23/20 11:27 Wound Care Nurse 3 Right -Other isreal Left -Other isreal Treatment Response Procedure Tolerated Well Pain Scale: 0-10 Numeric Is Patient Pain Free? Yes Teaching: Wound Center Control Swelling with Leg Elevation -Person Taught Patient -Teaching Method Discussion -Response to teaching Verbalize understanding WC - Visit Discharge Discharge Condition Stable Ambulatory Status Ambulatory, Walker Transportation Private Auto Medication Reconcilliation completed & No provided to patient/care provider Clinical Summary of Care Provided Yes No debridement was completed today Assessment/Plan Assessment: Gluteal Cleft/ Decubitus Ulcer. Healed. Morbid Obesity. Chronic Lymphedema. Recurrent lower extremity ulcers. Plan: Decubitus ulcer is healed. Moisturize adequately. Gauze and ABD over top for 2 weeks. Offloading strongly recommended. Elevate lower extremities when seated and in bed. Use lymphedema pump consistently. 4x 30 minutes daily. Continue Isreal wraps for compression. Increase protein intake. Her questions were answered and she was advised to call with any further questions or concerns. Discharged from the wound clinic. This note was generated with [email or web address] dictation software. It may contain incorrect words, spelling, and punctuation that were not noted in checking the note before signing. Office Visits / Consults: [id number] OV L3 Est
== END 2020-05-23 11:22 | disposition home or self-care (01) ==
LOC: WC 10:15
PROVIDERS: Family Provider Family Medicine; PCP Family Medicine; Visit Provider Internal Medicine
DX: L89.893 Pressure ulcer of other site, stage 3 (principal); E66.01 Morbid (severe) obesity due to excess calories; I89.0 Lymphedema, not elsewhere classified; Z68.44 Body mass index [BMI] 60.0-69.9, adult
CPT/HCPCS: 99212; 99213; G0463

== ENCOUNTER 2020-08-01 14:15 | Outpatient (RCR) | payer MEDICARE, MEDICAID, SELFPAY ==
[2020-07-16 09:17] VITALS: BP 168/90; PULSE 56; RESP 24; TEMP 37.1; BMI 73.2
[2020-07-16 13:14] LABS: Erythrocyte Sedimentation Rate 51 mm/hr (0-20)
[2020-07-16 13:16] LABS: Absolute Lymphocyte Count 1.52 X10^3/uL (0.83-4.51); Absolute Neutrophil Count 5.5 X10^3/uL (2.0-7.7); Basophil% 1.2 % (0-1); Eosinophil# 0.35 X10^3/uL; Eosinophils% 4.3 % (0-5); Hematocrit 38.9 % (37-47); Lymphocyte # 1.52 X10^3/ul (4.0); Lymphocyte % 18.6 % (19-41); Mean Corp Hgb Conc 30.8 g/dL (32-36); Mean Corpuscular Hgb 30.1 pg (27.0-32.0); Mean Corpuscular Volume 97.5 fL (81-99); Mean Platelet Vol. 11.6 fl (6.2-12.0); Monocyte# 0.67 X10^3/uL; Monocyte% 8.2 % (0-10); NRBC Flagged by Analyzer 0 % (0-5); Neutrophil # 5.49 X10^3/uL (2.7-7.7); Neutrophil % 67.1 % (47-70); Platelet Count 274 K/mm3 (150-450); RBC Distribution Width CV 16.1 % (11.6-14.6); RBC Distribution Width SD 57.7 fl (35.1-43.9); Red Blood Count 3.99 M/mm3 (4.2-5.4); White Blood Count 8.2 K/mm3 (4.4-11.0)
[2020-07-16 13:34] LABS: ALB/GLOB Ratio 0.9 RATIO (0.9-2.4); AST(SGOT) 18 U/L (15-37); Alanine Aminotransfer ALT/SGPT 41 U/L (13-56); Albumin, Serum 3.6 g/dL (3.2-5.0); Alkaline Phosphatase 187 U/L (45-117); Anion Gap 6 (5-15); BUN 15 mg/dL (7-18); Calcium,Total 9.4 mg/dL (8.5-10.1); Chloride 113 mmol/L (98-107); Creatinine, Serum 0.75 mg/dL (0.55-1.02); EST Glomerular Filtration Rate 87 mL/min (>60); Est Glom Filt Rate - Afr Amer 106 mL/min (>60); Estimated Creatinine Clearance 81.65 ml/min; Globulin 4.1 g/dL (2.2-4.2); Glucose 80 mg/dL (74-106); Potassium 3.9 mmol/L (3.5-5.1); Prealbumin 21.2 mg/dL (20.0-40.0); Protein, Total 7.7 g/dL (6.4-8.2); Sodium Level 143 mmol/L (136-145)
--- NOTE | 2020-07-16 13:42 | PCM.WC.HP ---
(1) History of CVA (cerebrovascular accident) Status: Chronic Code(s): Z86.73 - Personal history of transient ischemic attack (TIA), and cerebral infarction without residual deficits (2) GERD (gastroesophageal reflux disease) Status: Chronic Code(s): K21.9 - Gastro-esophageal reflux disease without esophagitis (3) Venous stasis dermatitis Status: Chronic Qualifiers: Laterality: right Qualified Code(s): I87.2 - Venous insufficiency (chronic) (peripheral) Code(s): I87.2 - Venous insufficiency (chronic) (peripheral) (4) PARAMJIT (obstructive sleep apnea) Status: Chronic Code(s): G47.33 - Obstructive sleep apnea (adult) (pediatric) (5) Hypothyroidism Status: Chronic Code(s): E03.9 - Hypothyroidism, unspecified (6) Bipolar 1 disorder Status: Chronic Code(s): F31.9 - Bipolar disorder, unspecified (7) Anemia in chronic illness Status: Chronic Code(s): D63.8 - Anemia in other chronic diseases classified elsewhere (8) Angina pectoris Status: Chronic Code(s): I20.9 - Angina pectoris, unspecified (9) Lymphedema Status: Chronic Code(s): I89.0 - Lymphedema, not elsewhere classified Comment: Secondary to chronic venous insufficieny of Bilateral Lower Extremity. (10) Secondary lymphedema Status: Chronic Code(s): I89.0 - Lymphedema, not elsewhere classified (11) Morbid obesity Status: Chronic Code(s): E66.01 - Morbid (severe) obesity due to excess calories (12) Bilateral lower extremity edema Status: Chronic Code(s): R60.0 - Localized edema (13) PAF (paroxysmal atrial fibrillation) Status: Chronic Code(s): I48.0 - Paroxysmal atrial fibrillation (14) HTN (hypertension) Status: Chronic Qualifiers: Code(s): I10 - Essential (primary) hypertension (15) HLD (hyperlipidemia) Status: Chronic Qualifiers: Code(s): E78.5 - Hyperlipidemia, unspecified (16) CKD (chronic kidney disease), stage III Status: Chronic Code(s): N18.3 - Chronic kidney disease, stage 3 (moderate) (17) Degenerative disc disease, cervical Status: Chronic Code(s): M50.30 - Other cervical disc degeneration, unspecified cervical region (18) Cervical spondylosis Status: Chronic Code(s): M47.812 - Spondylosis without myelopathy or radiculopathy, cervical region History of Present Illness Date of Service: 07/16/20 Chief Complaint: Swelling, edema, and lymphedema of the lower extremities bilaterally, with profound venous stasis changes of the distal right lower extremity. History of Wound: This is a 50-year-old morbidly obese white female with severe swelling, edema, and lymphedema in her lower extremities bilaterally. She has had multiple episodes of venous stasis dermatitis and ulcerations in her lower extremities, more predominantly in the right lower extremity. She denies a history of thrombophlebitis. Her morbid obesity precludes significant ambulation. She requires a walker for assistance. She spends most of her day in an idle sitting position. She claims to sleep on a flat mattress at night, often with her legs elevated. She presents with profound venous stasis dermatitis in the distal right lower extremity, which she says has been present for approximately 3 months. The patient relates that fluid has been oozing from the pores of her distal right lower extremity. She has been treated by her primary care physician with clindamycin 300 mg every 6 hours x7 days. She has also been treated recently with doxycycline. She has been using silver cell topically, and wrapping her right lower extremity with [place] wrap. Despite these measures, there has been little improvement. She presents at this time for definitive management. Past Medical History Past Medical History: Chronic Problems Lymphedema (Chronic) Secondary to chronic venous insufficieny of Bilateral Lower Extremity. Secondary lymphedema (Chronic) History of CVA (cerebrovascular accident) (Chronic) GERD (gastroesophageal reflux disease) (Chronic) Venous stasis dermatitis (Chronic) PARAMJIT (obstructive sleep apnea) (Chronic) Hypothyroidism (Chronic) Bipolar 1 disorder (Chronic) Anemia in chronic illness (Chronic) Angina pectoris (Chronic) Trochanteric bursitis of left hip (Chronic) Sacroiliitis (Chronic) Sacrococcygeal disorders, not elsewhere classified (Chronic) Ulcer of right lower extremity with fat layer exposed (Chronic) Gluteal Cleft. Stage III Morbid obesity (Chronic) Bilateral lower extremity edema (Chronic) Ulcer of left lower extremity with fat layer exposed (Chronic) Open wound of second toe of left foot (Chronic) Traumatic, Penetrating. Ulcer of right heel (Chronic) Abscess of left lower leg (Chronic) Left lower extremity ulcer s/p surgical I and D with fat layer exposed. PAF (paroxysmal atrial fibrillation) (Chronic) HTN (hypertension) (Chronic) HLD (hyperlipidemia) (Chronic) Anxiety and depression (Chronic) CKD (chronic kidney disease), stage III (Chronic) Facet arthropathy, cervical (Chronic) Degenerative disc disease, cervical (Chronic) Cervical spondylosis (Chronic) Past Medical History: The patient denies a history of myocardial infarction and diabetes mellitus. Surgical History: - - Hysterectomy, partial gastric bypass, cholecystectomy, appendectomy. Allergies/Adverse Reactions: Allergies amoxicillin trihydrate [From Augmentin] Allergy (Verified 01/18/20 09:21) Hives baclofen Allergy (Verified 01/18/20 09:21) Unknown gabapentin Allergy (Verified 01/18/20 09:21) Unknown Iodinated Contrast Media [CONTRASTS] Allergy (Verified 01/18/20 09:21) Anaphylaxis potassium clavulanate [From Augmentin] Allergy (Verified 01/18/20 09:21) Hives shrimp Allergy (Verified 01/18/20 09:21) Unknown valerian root Allergy (Uncoded 04/12/19 10:43) Unknown Home Medications: Ambulatory Orders Medication Instructions Recorded Furosemide [Lasix] 80 mg PO BID 08/01/14 Isosorbide Mononitrate [Imdur] 120 mg PO BID 08/01/14 Apixaban [Eliquis] 5 mg PO BID 05/07/17 Omeprazole [Prilosec] 20 mg PO LUNCH 05/07/17 Sotalol HCl [Betapace AF (Beta 80 mg PO BID 05/07/17 Bijan)] cycloBENZAPRine HCl [Flexeril] 10 mg PO TID PRN 07/13/17 Ondansetron [Zofran Odt] 4 mg PO Q8H PRN PRN #10 tablet 10/07/17 Amitriptyline HCl 25 mg PO QHS 06/08/18 Dicyclomine HCl [Bentyl] 10 mg PO 4X/DAY 06/08/18 ALPRAZolam [Xanax] 0.5 mg PO QHS PRN 07/01/18 Albuterol Inhaler [Ventolin Hfa] 2 puff INHALATION Q6H PRN PRN 11/10/18 Amlodipine [Norvasc] 10 mg PO QHS 11/10/18 Colestipol Tablet [Colestid Tablet] 3 gm PO BID 11/10/18 Meclizine HCl [Antivert] 25 mg PO TID PRN 11/10/18 Nystatin Powder [Mycostatin Powder] 1 applic TOPICAL 4X/DAY PRN PRN 11/10/18 Sertraline HCl [Zoloft] 50 mg PO QHS 11/10/18 Sumatriptan Succinate [Imitrex] 100 mg PO .X1 PRN 11/10/18 Ergocalciferol (Vitamin D2) 50,000 unit PO MOFR 03/20/19 [Vitamin D2] Spironolactone [Aldactone] 25 mg PO DAILY 03/20/19 Topiramate 100 mg PO TID 03/20/19 Clindamycin [Cleocin] 450 mg PO TID #63 cap 03/23/19 Lactobacillus Acidophilus 1 tab PO BID #14 tab 03/23/19 [Acidophilus] oxycodone-acetaminophen 5 mg-325 1 tab PO Q6H PRN #30 tab 03/25/19 mg tablet - Family History Maternal Family History: Family History (Last Updated 03/28/19 @ 13:45 by Idalia Andrews) Mother Hypertension Father Heart disease - - Patient notes a maternal family history of coronary disease, [place], passed in her 50s. Paternal Family History: Family History (Last Updated 03/28/19 @ 13:45 by Idalia Andrews) Mother Hypertension Father Heart disease - - Patient notes a paternal family history of coronary disease, history of [place], passed in his 60s. Social History: The patient is unemployed. She is disabled. She lives alone. She is single. She denies use of alcohol and tobacco products. Lives: Alone Smoking Status: Never smoker Tobacco Use: Non-smoker Alcohol: None Drugs: None Review of Systems Constitutional: Denies: Chills, Fever, Weight Change Eyes: Denies: Pain, Vision Change HEENT: Denies: Difficulty Hearing, Difficulty Swallowing, Sinus Congestion Cardiovascular: Denies: Chest Pain, Palpitations Respiratory: Denies: Cough, Shortness of Breath Gastrointestinal: Denies: Diarrhea, Nausea, Vomiting Genitourinary: Denies: Dysuria, Hematuria Endocrine: Denies: Heat/ Cold Intolerance, Polydipsia, Polyuria Hematologic/ Lymphatic: Denies: Easy Bruising, Easy Bleeding - Physical Exam Vital Signs Temp Pulse Resp BP 98.7 F 56 L 24 H 168/90 H 07/16/20 09:17 07/16/20 09:17 07/16/20 09:17 07/16/20 09:17 General: Alert, Oriented x3, Cooperative, No apparent distress, Well developed, Well nourished, - - The patient is morbidly obese. Her BMI is 73.2. HEENT: Atraumatic, PERRLA, EOMI, Normocephalic Oral: Moist Mucosa, No Gingival or Mucosal Lesions/ Ulcerations Neck: Supple, No JVD, Negative Carotid Bruits, Negative Hepatojugular Reflux, No Nodes, No Nuchal Rigidity, Trachea Midline Lungs: Clear to auscultation, Normal air movement, No rhonchi, No wheeze, No rales Cardiovascular: Regular rate, Regular Rhythm, Normal S1, Normal S2, No murmurs Abdomen: Non Tender, Non-Distended, Obese, - Extremities: No clubbing, No cyanosis, No Calf Tenderness, - - Patient's lower extremities demonstrate severe swelling, edema, and lymphedema. There is surface moisture involving the distal right lower extremity, with diffuse erythema in the right gaiter area. There are no howard open ulcers or wounds. Rather, the area appears excoriated. Wound Measurements and Assessment WC - Nurse 1 - General Ulcer Measurement Start: 07/16/20 09:17 Freq: Status: Active Protocol: Activity Type Activity Date Activity User E-Sign Co-Sign Detail Recorded Client Recorded Date Recorded By Document 07/16/20 09:17 [id number] 07/16/20 09:38 DL 07/16/20 09:17 Wound Center Nurse 1 [Ulcer Assessment] #22 RLE -Current Size (cm) - Length 17 -Current Size (cm) - Width 55 -Current Size (cm) - Depth 0.1 -Total Square Cm 935 -Photo Taken Yes -Classification - Thickness Partial Thickness -Exudate Amt Large -Exudate Type Serosanguineous -Wound Margin Indistinct, Non -Visible -Granulation Amt Large (67-100%) -Granulation Quality [place] -Necrosis Amt None Present (0 %) -Structure Exposed N/A -Texture (Martha-wound Skin Appearance) Excoriation, Localized Edema ,Scarring -Moisture (Martha-wound Skin Appearance No Abnormality ) -Color (Martha-wound Skin Appearance) Erythema -Temperature (Martha-wound Skin No Abnormality Appearance) (Pt Warm) -Tenderness on Palpation (Martha-wound Yes Skin Appearance) -Ulcer Cleansing Wound Cleanser -Foul Odor after Cleansing No -Anesthetic Used 4% Lidocaine Solution [Edema Assessment] -Right Calf (cm) 82 -Right Ankle (cm) 36 - Nurse 3 - General Ulcer D/C NN Start: 07/16/20 09:17 Freq: Status: Active Protocol: Activity Type Activity Date Activity User E-Sign Co-Sign Detail Recorded Client Recorded Date Recorded By Document 07/16/20 10:45 [facility] [id number] 07/16/20 10:46 [facility] 07/16/20 10:45 Wound Care Nurse 3 [Wound Dressing] #22 RLE -Ulcer Cleansing Rinsed/ Irrigated with Saline -Foul Odor after Cleansing No -Primary Dressing Applied Other -Other Dressing unna boot [Compression Applied] Right -Multi-Layered Wrap Application Unna Boot - Right ($) Left -Multi-Layered Wrap Application Multi-Layer Comp - Left ($) [Post Procedure Tolerated] -Treatment Response Procedure Tolerated Well Pain Scale: 0-10 Numeric [Pain] -Is Patient Pain Free? Yes - Visit Discharge [Visit Discharge Information] -Discharge Condition Stable -Ambulatory Status Ambulatory, Walker Musculoskeletal: No Muscle Wasting Neurological: Cranial nerves II-XII grossly intact, Neuro grossly intact Psych/Mental Status: Normal Affect, Appropriate, Alert and oriented to time, place, person, mood and affect Debridement Note Post-Debridement Measurements/Treatment WC - Nurse 3 - General Ulcer D/C NN Start: 07/16/20 09:17 Freq: Status: Active Protocol: Activity Type Activity Date Activity User E-Sign Co-Sign Detail Recorded Client Recorded Date Recorded By Document 07/16/20 10:45 [facility] [id number] 07/16/20 10:46 [facility] 07/16/20 10:45 Wound Care Nurse 3 #22 RLE -Ulcer Cleansing Rinsed/ Irrigated with Saline -Foul Odor after Cleansing No -Primary Dressing Applied Other -Other Dressing unna boot Right -Multi-Layered Wrap Application Unna Boot - Right ($) Left -Multi-Layered Wrap Application Multi-Layer Comp - Left ($) Treatment Response Procedure Tolerated Well Pain Scale: 0-10 Numeric Is Patient Pain Free? Yes WC - Visit Discharge Discharge Condition Stable Ambulatory Status Ambulatory, Walker No debridement was completed today - There are no howard open wounds or ulcerations. Assessment/Plan Active Problems Lymphedema (Chronic) Secondary to chronic venous insufficieny of Bilateral Lower Extremity. Secondary lymphedema (Chronic) History of CVA (cerebrovascular accident) (Chronic) GERD (gastroesophageal reflux disease) (Chronic) Venous stasis dermatitis (Chronic) PARAMJIT (obstructive sleep apnea) (Chronic) Hypothyroidism (Chronic) Bipolar 1 disorder (Chronic) Anemia in chronic illness (Chronic) Angina pectoris (Chronic) Morbid obesity (Chronic) Bilateral lower extremity edema (Chronic) PAF (paroxysmal atrial fibrillation) (Chronic) HTN (hypertension) (Chronic) HLD (hyperlipidemia) (Chronic) CKD (chronic kidney disease), stage III (Chronic) Degenerative disc disease, cervical (Chronic) Cervical spondylosis (Chronic) Assessment: This is a 50-year-old morbidly obese female who presents with recurrence of venous stasis dermatitis in her right lower extremity. Both lower extremities demonstrate severe swelling, edema, and lymphedema. Patient appears to be relatively inactive, and sits in idle fashion throughout most of each day. Plan: The erythematous surface of the patient's distal right lower extremity has been cultured by swab, for both aerobic and anaerobic growth. The erythema appears to be dermatitic, not necessarily infectious in nature. However, we will await the results of cultures. Patient has been counseled to modify her daily habits. She claims to sleep on a flat surface at night, which has been encouraged to continue as a practice. However, the patient has been urged to elevate her lower extremities as much as possible even during daytime hours. Elevation is to be to heart level, or higher. This is to be accomplished as much as possible. Prolonged idle sitting has been discouraged. Activity has been encouraged. However, the patient's morbid obesity is likely to preclude significant enhancement of her activity level. We are to implement compression to the lower extremities. In the right lower extremity this will be by placement of a multilayer Unna boot. The zinc oxide will help to address the dermatitic changes in the distal right lower extremity. On the left distal lower extremity we will use a 3M 2 layer compression wrap. These compression wraps will be changed twice weekly. Patient will return in 1 week for reassessment. We will await the results of the swab bacterial cultures. We will also obtain a battery of laboratory tests, including a CBC, comprehensive metabolic profile, and a serum prealbumin. Influenza vaccine was not administered today. The patient is not a smoker. Patient weighs 440 pounds. She stands 5 feet 5 inches tall. Her BMI is 73.2. Weight loss has been recommended, in collaboration with the patient's primary care physician has been advised.
[2020-07-19 15:05] VITALS: BP 142/76; PULSE 61; RESP 18; TEMP 36.1; BMI 73.2
[2020-07-23 11:29] VITALS: BP 188/106; PULSE 55; RESP 20; TEMP 35.5; BMI 73.2
--- NOTE | 2020-07-23 12:34 | HP.PCM_ITS ---
(1) History of CVA (cerebrovascular accident) Status: Chronic Code(s): Z86.73 - Personal history of transient ischemic att ack (TIA), and cerebral infarction without residual deficits (2) GERD (gastroesophageal reflux disease) Status: Chronic Code(s): K21.9 - Gastro-esophageal reflux disease without esophagitis (3) Venous stasis dermatitis Status: Chronic Qualifiers: Laterality: right Qualified Code(s): I87.2 - Venous insufficiency (chronic) (peripheral) Code(s): I87.2 - Venous insufficiency (chronic) (peripheral) (4) PARAMJIT (obstructive sleep apnea) Status: Chronic Code(s): G47.33 - Obstructive sleep apnea (adult) (pediatric) (5) Hypothyroidism Status: Chronic Code(s): E03.9 - Hypothyroidism, unspecified (6) Bipolar 1 disorder Status: Chronic Code(s): F31.9 - Bipolar disorder, unspecified (7) Anemia in chronic illness Status: Chronic Code(s): D63.8 - Anemia in other chronic diseases classified elsewhere (8) Angina pectoris Status: Chronic Code(s): I20.9 - Angina pectoris, unspecified (9) Lymphedema Status: Chronic Code(s): I89.0 - Lymphedema, not elsewhere classified Comment: Secondary to chronic venous insufficieny of Bilateral Lower Extremity. (10) Secondary lymphedema Status: Chronic Code(s): I89.0 - Lymphedema, not elsewhere classified (11) Morbid obesity Status: Chronic Code(s): E66.01 - Morbid (severe) obesity due to excess calories (12) Bilateral lower extremity edema Status: Chronic Code(s): R60.0 - Localized edema (13) PAF (paroxysmal atrial fibrillation) Status: Chronic Code(s): I48.0 - Paroxysmal atrial fibrillation (14) HTN (hypertension) Status: Chronic Qualifiers: Code(s): I10 - Essential (primary) hypertension (15) HLD (hyperlipidemia) Status: Chronic Qualifiers: Code(s): E78.5 - Hyperlipidemia, unspecified (16) CKD (chronic kidney disease), stage III Status: Chronic Code(s): N18.3 - Chronic kidney disease, stage 3 (moderate) (17) Degenerative disc disease, cervical Status: Chronic Code(s): M50.30 - Other cervical disc degeneration, unspecified cervical region (18) Cervical spondylosis Status: Chronic Code(s): M47.812 - Spondylosis without myelopathy or radiculopathy, cervical region History of Present Illness Date of Service: 07/23/20 Chief Complaint: Swelling, edema, and lymphedema of the lower extremities bilaterally, with profound venous stasis changes of the distal right lower extremity. History of Wound: This is a 50-year-old morbidly obese white female with severe swelling, edema, and lymphedema in her lower extremities bilaterally. She has had multiple episodes of venous stasis dermatitis and ulcerations in her lower extremities, more predominantly in the right lower extremity. She denies a history of thrombophlebitis. Her morbid obesity precludes significant ambulation. She requires a walker for assistance. She spends most of her day in an idle sitting position. She claims to sleep on a flat mattress at night, often with her legs elevated. She presented with profound venous stasis dermatitis in the distal right lower extremity, which she says had been present for approximately 3 months. The patient related that fluid had been oozing from the pores of her distal right lower extremity. She had been treated by her primary care physician with clindamycin 300 mg every 6 hours x7 days. She had also been treated recently with doxycycline. She had been using Silver Tita topically, and wrapping her right lower extremity with Isreal wrap. Despite these measures, there had been little improvement. She presented for definitive management. Past Medical History Past Medical History: Chronic Problems Lymphedema (Chronic) Secondary to chronic venous insufficieny of Bilateral Lower Extremity. Secondary lymphedema (Chronic) History of CVA (cerebrovascular accident) (Chronic) GERD (gastroesophageal reflux disease) (Chronic) Venous stasis dermatitis (Chronic) PARAMJIT (obstructive sleep apnea) (Chronic) Hypothyroidism (Chronic) Bipolar 1 disorder (Chronic) Anemia in chronic illness (Chronic) Angina pectoris (Chronic) Trochanteric bursitis of left hip (Chronic) Sacroiliitis (Chronic) Sacrococcygeal disorders, not elsewhere classified (Chronic) Ulcer of right lower extremity with fat layer exposed (Chronic) Gluteal Cleft. Stage III Morbid obesity (Chronic) Bilateral lower extremity edema (Chronic) Ulcer of left lower extremity with fat layer exposed (Chronic) Open wound of second toe of left foot (Chronic) Traumatic, Penetrating. Ulcer of right heel (Chronic) Abscess of left lower leg (Chronic) Left lower extremity ulcer s/p surgical I and D with fat layer exposed. PAF (paroxysmal atrial fibrillation) (Chronic) HTN (hypertension) (Chronic) HLD (hyperlipidemia) (Chronic) Anxiety and depression (Chronic) CKD (chronic kidney disease), stage III (Chronic) Facet arthropathy, cervical (Chronic) Degenerative disc disease, cervical (Chronic) Cervical spondylosis (Chronic) Surgical History: - - Hysterectomy, partial gastric bypass, cholecystectomy, appendectomy. Allergies/Adverse Reactions: Allergies amoxicillin trihydrate [From Augmentin] Allergy (Verified 01/18/20 09:21) Hives baclofen Allergy (Verified 01/18/20 09:21) Unknown gabapentin Allergy (Verified 01/18/20 09:21) Unknown Iodinated Contrast Media [CONTRASTS] Allergy (Verified 01/18/20 09:21) Anaphylaxis potassium clavulanate [From Augmentin] Allergy (Verified 01/18/20 09:21) Hives shrimp Allergy (Verified 01/18/20 09:21) Unknown valerian root Allergy (Uncoded 04/12/19 10:43) Unknown Home Medications: Ambulatory Orders Medication Instructions Recorded Furosemide [Lasix] 80 mg PO BID 08/01/14 Isosorbide Mononitrate [Imdur] 120 mg PO BID 08/01/14 Apixaban [Eliquis] 5 mg PO BID 05/07/17 Omeprazole [Prilosec] 20 mg PO LUNCH 05/07/17 Sotalol HCl [Betapace AF (Beta 80 mg PO BID 05/07/17 Bijan)] cycloBENZAPRine HCl [Flexeril] 10 mg PO TID PRN 07/13/17 Ondansetron [Zofran Odt] 4 mg PO Q8H PRN PRN #10 tablet 10/07/17 Amitriptyline HCl 25 mg PO QHS 06/08/18 Dicyclomine HCl [Bentyl] 10 mg PO 4X/DAY 06/08/18 ALPRAZolam [Xanax] 0.5 mg PO QHS PRN 07/01/18 Albuterol Inhaler [Ventolin Hfa] 2 puff INHALATION Q6H PRN PRN 11/10/18 Amlodipine [Norvasc] 10 mg PO QHS 11/10/18 Colestipol Tablet [Colestid Tablet] 3 gm PO BID 11/10/18 Meclizine HCl [Antivert] 25 mg PO TID PRN 11/10/18 Nystatin Powder [Mycostatin Powder] 1 applic TOPICAL 4X/DAY PRN PRN 11/10/18 Sertraline HCl [Zoloft] 50 mg PO QHS 11/10/18 Sumatriptan Succinate [Imitrex] 100 mg PO .X1 PRN 11/10/18 Ergocalciferol (Vitamin D2) 50,000 unit PO MOFR 03/20/19 [Vitamin D2] Spironolactone [Aldactone] 25 mg PO DAILY 03/20/19 Topiramate 100 mg PO TID 03/20/19 Clindamycin [Cleocin] 450 mg PO TID #63 cap 03/23/19 Lactobacillus Acidophilus 1 tab PO BID #14 tab 03/23/19 [Acidophilus] oxycodone-acetaminophen 5 mg-325 1 tab PO Q6H PRN #30 tab 03/25/19 mg tablet - Family History Maternal Family History: Family History (Last Updated 03/28/19 @ 13:45 by Idalia Andrews) Mother Hypertension Father Heart disease - - Patient notes a maternal family history of coronary disease, VA, passed in her 50s. Paternal Family History: Family History (Last Updated 03/28/19 @ 13:45 by Idalia Andrews) Mother Hypertension Father Heart disease - - Patient notes a paternal family history of coronary disease, history of VA, passed in his 60s. Lives: Alone Smoking Status: Never smoker Tobacco Use: Non-smoker Alcohol: None Drugs: None Review of Systems Constitutional: Denies: Chills, Fever, Weight Change Eyes: Denies: Pain, Vision Change HEENT: Denies: Difficulty Hearing, Difficulty Swallowing, Sinus Congestion Cardiovascular: Denies: Chest Pain, Palpitations Respiratory: Denies: Cough, Shortness of Breath Gastrointestinal: Denies: Diarrhea, Nausea, Vomiting Genitourinary: Denies: Dysuria, Hematuria Endocrine: Denies: Heat/ Cold Intolerance, Polydipsia, Polyuria Hematologic/ Lymphatic: Denies: Easy Bruising, Easy Bleeding - Physical Exam Vital Signs Temp Pulse Resp BP 95.9 F L 55 L 20 H 188/106 H 07/23/20 11:29 07/23/20 11:29 07/23/20 11:29 07/23/20 11:29 General: Alert, Oriented x3, Cooperative, No apparent distress, Well developed, Well nourished, - - The patient is morbidly obese. HEENT: Atraumatic, PERRLA, EOMI, Normocephalic Oral: Moist Mucosa Neck: No JVD Lungs: Normal air movement Abdomen: Non-Distended, Obese Extremities: No clubbing, No cyanosis, No Calf Tenderness Addt'l Extremities Findings: Severe swelling, edema, and lymphedema are again noted in the patient's lower extremities bilaterally. However, there have been significant changes. The swelling and edema is markedly diminished. Circumference measurements are documented elsewhere. There are no open wounds or ulcerations. There is no drainage or exudate from the pores of either lower extremity. The erythema noted last week diffusely in the distal right lower extremity is now nearly abated. There has been significant improvement in the swelling, edema, drainage, and erythema. Wound Measurements and Assessment WC - Nurse 1 - General Ulcer Measurement Start: 07/16/20 09:17 Freq: Status: Active Protocol: Activity Type Activity Date Activity User E-Sign Co-Sign Detail Recorded Client Recorded Date Recorded By Document 07/23/20 11:29 [facility] [id number] 07/23/20 11:38 [facility] 07/23/20 11:29 Wound Center Nurse 1 [Ulcer Assessment] #22 RLE -Combined with other wound No -Current Size (cm) - Length 0.1 -Current Size (cm) - Width 0.1 -Current Size (cm) - Depth 0.1 -Total Square Cm 0.01 -Epithelialization Large 67-100% -Tunneling No -Undermining/Tunneling No -Circular Undermining No -Texture (Martha-wound Skin Appearance) Assessed, Scarring -Moisture (Martha-wound Skin Appearance Assessed,Dry/ ) Scaly -Color (Martha-wound Skin Appearance) Assessed, Hemosiderin Staining -Temperature (Martha-wound Skin No Abnormality Appearance) (Pt Warm) -Tenderness on Palpation (Martha-wound No Skin Appearance) -Ulcer Cleansing soapy wter -Foul Odor after Cleansing No [Edema Assessment] -Lower Limb Edema Present Yes -Right Calf (cm) 72 -Right Ankle (cm) 34.7 -Point of measurement (cm from the 60 medial instep) -Point of Measurement (cm from the 28 medial instep) - Nurse 3 - General Ulcer D/C NN Start: 07/16/20 09:17 Freq: Status: Active Protocol: Activity Type Activity Date Activity User E-Sign Co-Sign Detail Recorded Client Recorded Date Recorded By Document 07/23/20 12:25 DL [id number] 07/23/20 12:27 DL 07/23/20 12:25 Wound Care Nurse 3 [Wound Dressing] #22 RLE -Ulcer Cleansing Wound Cleanser -Foul Odor after Cleansing No [Compression Applied] Right -Multi-Layered Wrap Application Unna Boot - Right ($) -Compression Wrap Unna Boot ($) ( single) Left -Multi-Layered Wrap Application Multi-Layer Comp - Right ($ ) Pain Scale: 0-10 Numeric [Pain] -Is Patient Pain Free? Yes - Visit Discharge [Visit Discharge Information] -Discharge Condition Stable -Ambulatory Status Ambulatory, Walker Neurological: Cranial nerves II-XII grossly intact, Neuro grossly intact Psych/Mental Status: Normal Affect, Appropriate, Alert and oriented to time, place, person, mood and affect Debridement Note Post-Debridement Measurements/Treatment WC - Nurse 2 - General Ulcer CM Notes Start: 07/16/20 09:17 Freq: Status: Active Protocol: Activity Type Activity Date Activity User E-Sign Co-Sign Detail Recorded Client Recorded Date Recorded By Document 07/16/20 16:31 PL [id number] 07/16/20 16:32 PL 07/16/20 16:31 Wound Center Nurse 2 #22 RLE -Procedure Performed No Pain Scale: 0-10 Numeric Is Patient Pain Free? Yes - Nurse 3 - General Ulcer D/C NN Start: 07/16/20 09:17 Freq: Status: Active Protocol: Activity Type Activity Date Activity User E-Sign Co-Sign Detail Recorded Client Recorded Date Recorded By Document 07/16/20 10:45 BMF [id number] 07/16/20 10:46 BMF Document 07/19/20 15:05 RB [id number] 07/19/20 15:07 RB Document 07/23/20 12:25 DL [id number] 07/23/20 12:27 DL 07/16/20 07/19/20 07/23/20 10:45 15:05 12:25 Wound Care Nurse 3 #22 RLE -Ulcer Cleansing Rinsed/ Wound Cleanser Irrigated with Saline -Foul Odor after Cleansing No No -Primary Dressing Applied Other -Other Dressing unna boot Right -Multi-Layered Wrap Application Unna Boot - Unna Boot - Unna Boot - Right ($) Right ($) Right ($) -Compression Wrap Unna Boot ($) ( single) Left -Multi-Layered Wrap Application Multi-Layer Multi-Layer Multi-Layer Comp - Left ($) Comp - Left ($) Comp - Right ($ ) Treatment Response Procedure Procedure Tolerated Well Tolerated Well Vital Signs Temperature (97.8 F-99.1 F) 97 F L Temperature Source Temporal Pulse Rate (60-100) 61 Pulse Location Monitor Respiratory Rate (12-18) 18 Respiratory rate source Observation Blood Pressure (90/60-120/80) 142/76 H Blood Pressure Mean (mm Hg) 98 Source Monitor Position Semi-Fowlers Blood Pressure Location Left Arm Pain Scale: 0-10 Numeric Is Patient Pain Free? Yes Yes Yes WC - Visit Discharge Discharge Condition Stable Stable Stable Ambulatory Status Ambulatory, Ambulatory Ambulatory, Walker Walker Transportation Private Auto Medication Reconcilliation completed & No provided to patient/care provider Clinical Summary of Care Provided Yes No debridement was completed today - There are no open wounds or ulcerations Assessment/Plan Active Problems Lymphedema (Chronic) Secondary to chronic venous insufficieny of Bilateral Lower Extremity. Secondary lymphedema (Chronic) History of CVA (cerebrovascular accident) (Chronic) GERD (gastroesophageal reflux disease) (Chronic) Venous stasis dermatitis (Chronic) PARAMJIT (obstructive sleep apnea) (Chronic) Hypothyroidism (Chronic) Bipolar 1 disorder (Chronic) Anemia in chronic illness (Chronic) Angina pectoris (Chronic) Morbid obesity (Chronic) Bilateral lower extremity edema (Chronic) PAF (paroxysmal atrial fibrillation) (Chronic) HTN (hypertension) (Chronic) HLD (hyperlipidemia) (Chronic) CKD (chronic kidney disease), stage III (Chronic) Degenerative disc disease, cervical (Chronic) Cervical spondylosis (Chronic) Assessment: This is a 50-year-old morbidly obese female who presented with recurrence of venous stasis dermatitis in her right lower extremity. Both lower extremities demonstrate severe swelling, edema, and lymphedema. The patient appears to be relatively inactive, and sits in idle fashion throughout most of each day. Cultures of the exudate from the right lower extremity, which were obtained 1 week ago, have been positive for Pseudomonas aeruginosa, Alcaligenes faecalis, klebsiella oxytoca, and Corynebacterium striatum. Furthermore, laboratory studies have been obtained as well, dated July 16, 2020, with results as follows: White blood count 8.2, hemoglobin 12.0, hematocrit 38.9, pl atelets 274,000, sed rate 51, glucose 80, BUN 15, creatinine 0.75, total protein 7.7, albumin 3.6, calcium 9.4, AST 18, alkaline phosphatase 187, ALT 41, total bilirubin 0.30, sodium 143, potassium 3.9, chloride 113, serum prealbumin 21.2. Plan: The patient appears to be much improved within the last week. In response to her positive cultures, the patient has been placed on Cipro 750 mg p.o. twice daily for 10 days. She is currently in the midst of that course of oral antibiotic. We are to continue with the multilayer Unna boot to the right lower extremity, and it 3M 2 layer compression wrap to the left lower extremity. Both wraps will be changed twice weekly. Patient will return in 1 week for reassessment. If her improvement continues, it is quite likely that discharge will be imminent. The patient will likely benefit from the use of compression garments or devices for the lower extremities long-term. CircAid compression garments will be considered. She may also benefit from lymphedema pumps. Additionally, referral to our lymphedema clinic will be to the patient's benefit upon discharge from our facility. The patient is to return in 1 week for r eassessment. The patient has been counseled to modify her daily habits. She claims to sleep on a flat surface at night, which has been encouraged to continue as a practice. However, the patient has been urged to elevate her lower extremities as much as possible even during daytime hours. Elevation is to be to heart level, or higher. This is to be accomplished as much as possible. Prolonged idle sitting has been discouraged. Activity has been encouraged. However, the patient's morbid obesity is likely to preclude significant enhancement of her activity level. Patient will return in 1 week for reassessment. Influenza vaccine was not administered today. The patient is not a smoker. Patient weighs 440 pounds. She stands 5 feet 5 inches tall. Her BMI is 73.2. Weight loss has been recommended, in collaboration with the patient's primary care physician has been advised.
[2020-07-25 14:33] VITALS: BP 154/81; PULSE 51; RESP 20; TEMP 36.2; BMI 73.2
[2020-08-01 14:31] VITALS: BP 160/67; PULSE 59; RESP 18; TEMP 36.3; BMI 73.2
--- NOTE | 2020-08-01 14:35 | WC ---
pt arrived to nurses visit appointment compression wraps had fell to mid enciso bilat since last appointment pt states compression wraps stay up for 2 days then start to falll down
== END 2020-08-03 23:59 ==
LOC: WC 14:15
PROVIDERS: PCP Family Medicine; Referring Provider Surgery; Visit Provider Surgery
DX: L97.412 Non-pressure chronic ulcer of right heel and midfoot with fat layer exposed (principal); I87.2 Venous insufficiency (chronic) (peripheral); B96.5 Pseudomonas (aeruginosa) (mallei) (pseudomallei) as the cause of diseases classified elsewhere; E03.9 Hypothyroidism, unspecified; G47.33 Obstructive sleep apnea (adult) (pediatric); K21.9 Gastro-esophageal reflux disease without esophagitis; I89.0 Lymphedema, not elsewhere classified; D63.8 Anemia in other chronic diseases classified elsewhere; E66.01 Morbid (severe) obesity due to excess calories; R60.0 Localized edema; I48.0 Paroxysmal atrial fibrillation; E78.5 Hyperlipidemia, unspecified; I12.9 Hypertensive chronic kidney disease with stage 1 through stage 4 chronic kidney disease, or unspecified chronic kidney disease; N18.30 Chronic kidney disease, stage 3 unspecified; M50.30 Other cervical disc degeneration, unspecified cervical region; M47.812 Spondylosis without myelopathy or radiculopathy, cervical region; Z56.0 Unemployment, unspecified; Z68.45 Body mass index [BMI] 70 or greater, adult; Z79.01 Long term (current) use of anticoagulants; Z79.899 Other long term (current) drug therapy; Z82.49 Family history of ischemic heart disease and other diseases of the circulatory system; Z86.73 Personal history of transient ischemic attack (TIA), and cerebral infarction without residual deficits; Z88.0 Allergy status to penicillin; Z88.1 Allergy status to other antibiotic agents; Z88.8 Allergy status to other drugs, medicaments and biological substances; Z90.49 Acquired absence of other specified parts of digestive tract; Z98.84 Bariatric surgery status; F41.9 Anxiety disorder, unspecified; M46.1 Sacroiliitis, not elsewhere classified; F31.9 Bipolar disorder, unspecified
CPT/HCPCS: 29580; 29581; 80053; 84134; 85025; 85652; 87070; 87075; 87077; 87186; 87205; 99212; G0463

== ENCOUNTER 2020-08-06 08:30 | Outpatient (RCR) | payer MEDICARE, MEDICAID, SELFPAY ==
[2020-08-04 00:38] VITALS: BP 160/67; PULSE 59; RESP 18; TEMP 36.3
[2020-08-06 08:45] VITALS: BP 155/88; PULSE 61; RESP 20; TEMP 35.9; BMI 73.2
--- NOTE | 2020-08-06 09:09 | HP.PCM_ITS ---
(1) Lymphedema Status: Chronic Code(s): I89.0 - Lymphedema, not elsewhere classified Comment: Secondary to chronic venous insufficieny of Bilateral Lower Extremity. (2) Secondary lymphedema Status: Chronic Code(s): I89.0 - Lymphedema, not elsewhere classified (3) Decubitus ulcer Status: Resolved Code(s): L89.90 - Pressure ulcer of unspecified site, unspe cified stage Comment: Gluteal Cleft, Stage III (4) History of CVA (cerebrovascular accident) Status: Chronic Code(s): Z86.73 - Personal history of transient ischemic attack (TIA), and cerebral infarction without residual deficits (5) GERD (gastroesophageal reflux disease) Status: Chronic Code(s): K21.9 - Gastro-esophageal reflux disease without esophagitis (6) Venous stasis dermatitis Status: Chronic Qualifiers: Code(s): I87.2 - Venous insufficiency (chronic) (peripheral) (7) PARAMJIT (obstructive sleep apnea) Status: Chronic Code(s): G47.33 - Obstructive sleep apnea (adult) (pediatric) (8) Hypothyroidism Status: Chronic Code(s): E03.9 - Hypothyroidism, unspecified (9) Bipolar 1 disorder Status: Chronic Code(s): F31.9 - Bipolar disorder, unspecified (10) Anemia in chronic illness Status: Chronic Code(s): D63.8 - Anemia in other chronic diseases classified elsewhere (11) Angina pectoris Status: Chronic Code(s): I20.9 - Angina pectoris, unspecified (12) Trochanteric bursitis of left hip Status: Inactive Code(s): M70.62 - Trochanteric bursitis, left hip (13) Sacroiliitis Status: Inactive Code(s): M46.1 - Sacroiliitis, not elsewhere classified (14) Sacrococcygeal disorders, not elsewhere classified Status: Chronic Code(s): M53.3 - Sacrococcygeal disorders, not elsewhere classified (15) Ulcer of right lower extremity with fat layer exposed Status: Chronic Code(s): L97.912 - Non-pressure chronic ulcer of unspecified part of right lower leg with fat layer exposed Comment: Gluteal Cleft. Stage III (16) Morbid obesity Status: Chronic Code(s): E66.01 - Morbid (severe) obesity due to excess calories (17) Bilateral lower extremity edema Status: Chronic Code(s): R60.0 - Localized edema (18) Ulcer of left lower extremity with fat layer exposed Status: Chronic Code(s): L97.922 - Non-pressure chronic ulcer of unspecified part of left lower leg with fat layer exposed (19) Open wound of second toe of left foot Status: Chronic Code(s): S91.105A - Unspecified open wound of left lesser toe(s) without damage to nail, initial encounter Comment: Traumatic, Penetrating. (20) Ulcer of right heel Status: Chronic Qualifiers: Code(s): L97.419 - Non-pressure chronic ulcer of right heel and midfoot with unspecified severity (21) Abscess of left lower leg Status: Chronic Code(s): L02.416 - Cutaneous abscess of left lower limb Comment: Left lower extremity ulcer s/p surgical I and D with fat layer exposed. (22) PAF (paroxysmal atrial fibrillation) Status: Chronic Code(s): I48.0 - Paroxysmal atrial fibrillation (23) HTN (hypertension) Status: Chronic Qualifiers: Code(s): I10 - Essential (primary) hypertension (24) HLD (hyperlipidemia) Status: Chronic Qualifiers: Code(s): E78.5 - Hyperlipidemia, unspecified (25) Anxiety and depression Status: Chronic Code(s): F41.9 - Anxiety disorder, unspecified; F32.9 - Major depressive disorder, single episode, unspecified (26) CKD (chronic kidney disease), stage III Status: Chronic Code(s): N18.3 - Chronic kidney disease, stage 3 (moderate) (27) Abscess of left lower extremity Status: Inactive Code(s): L02.416 - Cutaneous abscess of left lower limb (28) Facet arthropathy, cervical Status: Chronic Code(s): M46.92 - Unspecified inflammatory spondylopathy, cervical region (29) Degenerative disc disease, cervical Status: Chronic Code(s): M50.30 - Other cervical disc degeneration, unspecified cervical region (30) Cervical spondylosis Status: Chronic Code(s): M47.812 - Spondylosis without myelopathy or radiculopathy, cervical region History of Present Illness Date of Service: 08/06/20 Chief Complaint: Swelling, edema, and lymphedema of the lower extremities bilaterally, with profound venous stasis changes of the distal right lower extremity. History of Wound: This is a 50-year-old morbidly obese white female with severe swelling, edema, and lymphedema in her lower extremities bilaterally. She has had multiple episodes of venous stasis dermatitis and ulcerations in her lower extremities, more predominantly in the right lower extremity. She denies a history of thrombophlebitis. Her morbid obesity precludes significant ambulation. She requires a walker for assistance. She spends most of her day in an idle sitting position. She claims to sleep on a flat mattress at night, often with her legs elevated. She presented with profound venous stasis de rmatitis in the distal right lower extremity, which she says had been present for approximately 3 months. The patient related that fluid had been oozing from the pores of her distal right lower extremity. She had been treated by her primary care physician with clindamycin 300 mg every 6 hours x7 days. She had also been treated recently with doxycycline. She had been using Silver Tita topically, and wrapping her right lower extremity with Isreal wrap. Despite these measures, there had been little improvement. She presented for definitive management. Past Medical History Past Medical History: Chronic Problems Lymphedema (Chronic) Secondary to chronic venous insufficieny of Bilateral Lower Extremity. Secondary lymphedema (Chronic) History of CVA (cerebrovascular accident) (Chronic) GERD (gastroesophageal reflux disease) (Chronic) Venous stasis dermatitis (Chronic) PARAMJIT (obstructive sleep apnea) (Chronic) Hypothyroidism (Chronic) Bipolar 1 disorder (Chronic) Anemia in chronic illness (Chronic) Angina pectoris (Chronic) Sacrococcygeal disorders, not elsewhere classified (Chronic) Ulcer of right lower extremity with fat layer exposed (Chronic) Gluteal Cleft. Stage III Morbid obesity (Chronic) Bilateral lower extremity edema (Chronic) Ulcer of left lower extremity with fat layer exposed (Chronic) Open wound of second toe of left foot (Chronic) Traumatic, Penetrating. Ulcer of right heel (Chronic) Abscess of left lower leg (Chronic) Left lower extremity ulcer s/p surgical I and D with fat layer exposed. PAF (paroxysmal atrial fibrillation) (Chronic) HTN (hypertension) (Chronic) HLD (hyperlipidemia) (Chronic) Anxiety and depression (Chronic) CKD (chronic kidney disease), stage III (Chronic) Facet arthropathy, cervical (Chronic) Degenerative disc disease, cervical (Chronic) Cervical spondylosis (Chronic) Surgical History: - - Hysterectomy, partial gastric bypass, cholecystectomy, appendectomy. Allergies/Adverse Reactions: Allergies amoxicillin trihydrate [From Augmentin] Allergy (Verified 01/18/20 09:21) Hives baclofen Allergy (Verified 01/18/20 09:21) Unknown gabapentin Allergy (Verified 01/18/20 09:21) Unknown Iodinated Contrast Media [CONTRASTS] Allergy (Verified 01/18/20 09:21) Anaphylaxis potassium clavulanate [From Augmentin] Allergy (Verified 01/18/20 09:21) Hives shrimp Allergy (Verified 01/18/20 09:21) Unknown valerian root Allergy (Uncoded 04/12/19 10:43) Unknown Home Medications: Ambulatory Orders Medication Instructions Recorded Furosemide [Lasix] 80 mg PO BID 08/01/14 Isosorbide Mononitrate [Imdur] 120 mg PO BID 08/01/14 Apixaban [Eliquis] 5 mg PO BID 05/07/17 Omeprazole [Prilosec] 20 mg PO LUNCH 05/07/17 Sotalol HCl [Betapace AF (Beta 80 mg PO BID 05/07/17 Bijan)] cycloBENZAPRine HCl [Flexeril] 10 mg PO TID PRN 07/13/17 Ondansetron [Zofran Odt] 4 mg PO Q8H PRN PRN #10 tablet 10/07/17 Amitriptyline HCl 25 mg PO QHS 06/08/18 Dicyclomine HCl [Bentyl] 10 mg PO 4X/DAY 06/08/18 ALPRAZolam [Xanax] 0.5 mg PO QHS PRN 07/01/18 Albuterol Inhaler [Ventolin Hfa] 2 puff INHALATION Q6H PRN PRN 11/10/18 Amlodipine [Norvasc] 10 mg PO QHS 11/10/18 Colestipol Tablet [Colestid Tablet] 3 gm PO BID 11/10/18 Meclizine HCl [Antivert] 25 mg PO TID PRN 11/10/18 Nystatin Powder [Mycostatin Powder] 1 applic TOPICAL 4X/DAY PRN PRN 11/10/18 Sertraline HCl [Zoloft] 50 mg PO QHS 11/10/18 Sumatriptan Succinate [Imitrex] 100 mg PO .X1 PRN 11/10/18 Ergocalciferol (Vitamin D2) 50,000 unit PO MOFR 03/20/19 [Vitamin D2] Spironolactone [Aldactone] 25 mg PO DAILY 03/20/19 Topiramate 100 mg PO TID 03/20/19 Clindamycin [Cleocin] 450 mg PO TID #63 cap 03/23/19 Lactobacillus Acidophilus 1 tab PO BID #14 tab 03/23/19 [Acidophilus] oxycodone-acetaminophen 5 mg-325 1 tab PO Q6H PRN #30 tab 03/25/19 mg tablet - Family History Maternal Family History: Family History (Last Updated 03/28/19 @ 13:45 by Idalia Andrews) Mother Hypertension Father Heart disease - - Patient notes a maternal family history of coronary disease, [place], passed in her 50s. Paternal Family History: Family History (Last Updated 03/28/19 @ 13:45 by Idalia Andrews) Mother Hypertension Father Heart disease - - Patient notes a paternal family history of coronary disease, history of [place], passed in his 60s. Smoking Status: Never smoker Tobacco Use: Non-smoker Review of Systems Constitutional: Denies: Chills, Fever, Weight Change Eyes: Denies: Pain, Vision Change HEENT: Denies: Difficulty Hearing, Difficulty Swallowing, Sinus Congestion Cardiovascular: Denies: Chest Pain, Palpitations Respiratory: Denies: Cough, Shortness of Breath Gastrointestinal: Denies: Diarrhea, Nausea, Vomiting Genitourinary: Denies: Dysuria, Hematuria Endocrine: Denies: Heat/ Cold Intolerance, Polydipsia, Polyuria Hematologic/ Lymphatic: Denies: Easy Bruising, Easy Bleeding - Physical Exam Vital Signs Temp Pulse Resp BP 96.7 F L 61 20 H 155/88 H 08/06/20 08:45 08/06/20 08:45 08/06/20 08:45 08/06/20 08:45 General: Alert, Oriented x3, Cooperative, No apparent distress, Well developed, Well nourished, - - The patient is morbidly obese. HEENT: Atraumatic, PERRLA, EOMI, Normocephalic Oral: Moist Mucosa Neck: No JVD Lungs: Normal air movement Abdomen: Non-Distended Extremities: No clubbing, No cyanosis, No Calf Tenderness, - - Swelling and edema persist in both lower extremities, though lymphedema appears to be the primary pathology in the patient's lower extremity. Her morbid obesity is also a contributing factor. There are no open wounds or ulcerations. The dermatitic changes have largely resolved. Addt'l Wound Findings: There are no open wounds or ulcerations in the patient's lower extremities. All such sites are now completely epithelialized. There is no significant dermatitis. The patient has responded well to recent interventions. Skin: No breakdown Wound Measurements and Assessment WC - Nurse 1 - General Ulcer Measurement Start: 08/06/20 08:45 Freq: Status: Active Protocol: Activity Type Activity Date Activity User E-Sign Co-Sign Detail Recorded Client Recorded Date Recorded By Document 08/06/20 08:45 MS [id number] 08/06/20 08:57 MS 08/06/20 08:45 Wound Center Nurse 1 [Ulcer Assessment] #22 RLE -Current Size (cm) - Length 0.1 -Current Size (cm) - Width 0.1 -Current Size (cm) - Depth 0.1 -Total Square Cm 0.01 -Epithelialization Large 67-100% -Exudate Amt None Present [Edema Assessment] -Right Calf (cm) 59 -Right Ankle (cm) 34 -Left Calf (cm) 50 -Left Ankle (cm) 29 Musculoskeletal: No Muscle Wasting Neurological: Cranial nerves II-XII grossly intact, Neuro grossly intact Psych/Mental Status: Normal Affect, Appropriate, Alert and oriented to time, place, person, mood and affect Debridement Note No debridement was completed today - There are no open wounds or ulcerations. Assessment/Plan Assessment: This is a 50-year-old morbidly obese female who presented with recurrence of venous stasis dermatitis in her right lower extremity. Both lower extremities demonstrated severe swelling, edema, and lymphedema. The patient appears to be relatively inactive, and sits in idle fashion throughout most of each day. Cultures of the exudate from the right lower extremity were positive for Pseudomonas aeruginosa, Alcaligenes faecalis, klebsiella oxytoca, and Corynebacterium striatum. Furthermore, laboratory studies have been obtained as well, dated July 16, 2020, with results as follows: White blood count 8.2, hemoglobin 12.0, hematocrit 38.9, platelets 274,000, sed rate 51, glucose 80, BU N 15, creatinine 0.75, total protein 7.7, albumin 3.6, calcium 9.4, AST 18, alkaline phosphatase 187, ALT 41, total bilirubin 0.30, sodium 143, potassium 3.9, chloride 113, serum prealbumin 21.2. Plan: In response to her positive cultures, the patient was placed on Cipro 750 mg p.o. twice daily for 10 days, which has now been completed. Upon her presentation today, the dermatitic changes in the lower extremities are resolved. There are no open wounds or ulcerations. She has responded nicely to recent conservative treatment measures. The patient is to be discharged from our facility. She is to follow-up henceforth as needed. Patient is to be referred to our local [facility]. For the short-term, she is to use SurePress wraps to both lower extremities to minimize the swelling. She is in possession of mechanical pneumatic compression pumps, which she has been advised to continue using 3 times daily. We are to defer to the Lymphedema Clinic with regard to long-term compression, whether that be by means of graduated compression stockings or CircAid Velcro compression garments. The patient has been adequately counseled to modify her daily habits. She claims to sleep on a flat surface at night, which has been encouraged to continue as a practice. However, the patient has been urged to elevate her lower extremities as much as possible even during daytime hours. Elevation is to be to heart level, or higher. This is to be accomplished as much as possible. Prolonged idle sitting has been discouraged. Activity has been encouraged. However, the patient's morbid obesity is likely to preclude significant enhancement of her activity level. She has been encouraged to lose weight. Influenza vaccine was not administered today. The patient is not a smoker. Patient weighs 440 pounds. She stands 5 feet 5 inches tall. Her BMI is 73.2. Weight loss has been recommended, in collaboration with the patient's primary care physician has been advised.
== END 2020-08-06 09:22 | disposition home or self-care (01) ==
LOC: WC 08:30
PROVIDERS: PCP Family Medicine; Referring Provider Surgery; Visit Provider Surgery
DX: I89.0 Lymphedema, not elsewhere classified (principal); L97.912 Non-pressure chronic ulcer of unspecified part of right lower leg with fat layer exposed; L97.922 Non-pressure chronic ulcer of unspecified part of left lower leg with fat layer exposed; E66.01 Morbid (severe) obesity due to excess calories; L97.412 Non-pressure chronic ulcer of right heel and midfoot with fat layer exposed; R60.0 Localized edema; L02.416 Cutaneous abscess of left lower limb; L89.90 Pressure ulcer of unspecified site, unspecified stage; M46.1 Sacroiliitis, not elsewhere classified; I87.2 Venous insufficiency (chronic) (peripheral); I48.0 Paroxysmal atrial fibrillation; E78.5 Hyperlipidemia, unspecified; F41.9 Anxiety disorder, unspecified; N18.30 Chronic kidney disease, stage 3 unspecified; M46.92 Unspecified inflammatory spondylopathy, cervical region; Z86.73 Personal history of transient ischemic attack (TIA), and cerebral infarction without residual deficits; F32.9 Major depressive disorder, single episode, unspecified; E03.9 Hypothyroidism, unspecified; I12.9 Hypertensive chronic kidney disease with stage 1 through stage 4 chronic kidney disease, or unspecified chronic kidney disease; G47.33 Obstructive sleep apnea (adult) (pediatric); Z68.45 Body mass index [BMI] 70 or greater, adult; Z79.01 Long term (current) use of anticoagulants; Z79.899 Other long term (current) drug therapy; Z82.49 Family history of ischemic heart disease and other diseases of the circulatory system; Z88.0 Allergy status to penicillin; Z88.1 Allergy status to other antibiotic agents; Z88.8 Allergy status to other drugs, medicaments and biological substances; Z90.49 Acquired absence of other specified parts of digestive tract; Z98.84 Bariatric surgery status
CPT/HCPCS: 99212; G0463

== ENCOUNTER 2020-08-22 09:30 | Outpatient (RCR) | payer MEDICARE, MEDICAID, SELFPAY ==
--- NOTE | 2020-08-13 07:48 | HP.OTEVAL_ITS ---
Patient's Visit Information QUINTEN YARBROUGH is a 50 year old F, referred to Occupational Therapy by Dr. Samuel Puentes MD, with a diagnosis of Lymphedema. Date of Evaluation: 08/08/20 Occupational Therapist: Alexandria Mason, MITALIR/Ness, CHT - Subjective This 50-year-old female was seen for OT eval with dx of BLE lymphedema. pt state s she has struggled with cellulitis x4. pt states she has had swelling her entire life and has been on a Lasix medication her entire life. 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 pt states she has been to the wound center for three years. pt states she has almost lost her right leg x2 because of the cellulitis. pt states she has lymphedema pumps she is using 3x a day for 30min. Pt states she lives alone, and a nurse comes daily to wrap her legs and help her with her lymphedema pumps. pt states she ambulates a long melara about 150 feet 2x a day. Today pt arrives with ric wraps on bilateral LE, they have rolled down pts legs. pt admits she has a hard time keeping wraps up on her legs. pt would like to know what else she can do to mtg her lymphedema - Pain BLE 5 - Lymphedema (Circumferential Measure) Mid-foot: right 25cm left 24cm Ankle: right 30cm left 27cm Lower calf: right 60cm left 51cm Largest calf: right 80cm left 60cm Below knee: right 86cm left 53cm - Goals Demonstrate a 20% reduction in edema by d/c: Yes Demonstrate adequate knowledge of self-bangaging by 1st week: Yes Demonstrate adequate knowledge of self-massage by 2nd week: Yes Demonstrate adequate knowledge skin care/prec by 2nd week: Yes Demonstrate adequate knowledge therapeutic exercises by d/c: Yes Select approp compression garment w/donning/care/wear by d/c: Yes Voice need to replace compression garment every 4-6mo by dc: Yes - Rehabilitation General Assessment: Pt demo with stage III lymphedema, thick fibrotic tissue and would benefit from skilled OT services 2-3 visits to ed. pt on life long lymphedema mtg. Today therapist ed. pt on lymph system and circulation, and need of compression. Today therapist ed. pt to continue to use her leg pumps. Therapist advised pt while on leg pumps to stimulate her lymph nodes with massaging her arms, abdomen and deep breathing. Therapist also ed. pt to get up every hour and move around and to AVOID sitting with legs propped as this keeps hips positioned at 90* and decreases fluid flow. Pt demo understanding. Pt expressed the difficulty she has keeping her ric wraps up on her legs- therapist ed. pt that there are Velcro closure alternative for compression but after assessment of limb size she currently does not fit in theses devices. Therapist rec.d cont. with wraps and ed. pt to pad the contours of he legs to get her limb more of a cylinder shape prior to wrapping. Therapist advised to measure her limbs weekly to monitor reduction and once limbs reduce, she could investigate the Ferrow, circaid Velcro closer device as this would increase ease from w rapping. Therapist expressed pt is more than welcome to return with her caregiver on wrapping if she wanted. pt agree to talk with her caregiver. Rehabilitation Potential: Questionable - Anticipated Interventions Education re Diagnosis, Manual Lymph Drainage, Education re Life-long lymphedema Management, Education re Self-Bandaging Techniques, Education re Skin Care and Precautions, Education re Self Massage Techniques, Education re Correct Donning Tech,Care&Wearing Sched Comp Garments, Caregiver Training, Home Program - Visit Plan TEXT: Thank you for the opportunity to evaluate your patient. For Medicare and Medicare HMO plans, please review the plan of care and approve it. It will need to be FAXED BACK to us at [phone] for Medicare purposes. Please let me know if there are questions or concerns regarding this plan of care. Physician Signature: Date:
--- NOTE | 2021-01-16 13:56 | HP.OT.NRP ---
QUINTEN YARBROUGH was seen in my office for initial evaluation on 08/08/20. The following Plan of Care was established for this patient:pt arrived with caregiver to ed. pt on use of wraps for LE lymphedema- both demo understanding of wrapping LE, and use of ad. circaide once pts limb size decreases. pt has not scheduled further OT apts.and is d/c due to time lapse in services. Anticipated Interventions: Education re Diagnosis, Manual Lymph Drainage, Education re Life-long lymphedema Management, Education re Self-Bandaging Techniques, Education re Skin Care and Precautions, Education re Self Massage Techniques, Education re Correct Donning Tech,Care&Wearing Sched Comp Garments, Caregiver Training, Home Program This patient was last seen in our office 08/22/20 . Pertinent comments regarding their Occupational therapy will appear below: pt arrived with caregiver to ed. pt on use of wraps for LE lymphedema- both demo understanding of wrapping LE, and use of ad. circaide once pts limb size decreases. pt has not scheduled further OT apts.and is d/c due to time lapse in services. At this point I will be discontinuing this patient from occupational therapy. I would be happy to see this patient again in the future if found appropriate by the physician. Thank you! Alexandria Mason, OTR/L, CHT
== END 2020-08-22 19:00 | disposition home or self-care (01) ==
LOC: OT 09:30
PROVIDERS: PCP Student in an Organized Health Care Education/Training Program; Referring Provider Surgery; Visit Provider Surgery
DX: I89.0 Lymphedema, not elsewhere classified (principal)
CPT/HCPCS: 97166; 97530

== ENCOUNTER 2020-09-26 08:15 | Outpatient (RCR) | payer MEDICARE, MEDICAID, SELFPAY ==
[2020-09-12 14:07] VITALS: BP 152/63; PULSE 54; RESP 24; TEMP 36.4; BMI 73.2
--- NOTE | 2020-09-12 14:54 | PCM.WC.HP ---
(1) Ulcer of right lower extremity with fat layer exposed Status: Acute Code(s): L97.912 - Non-pressure chronic ulcer of unspecified part of right lower leg with fat layer exposed Comment: Right lower extremity (2) Lymphedema Status: Chronic Code(s): I89.0 - Lymphedema, not elsewhere classified Comment: Secondary to chronic venous insufficieny of Bilateral Lower Extremity. (3) History of CVA (cerebrovascular accident) Status: Chronic Code(s): Z86.73 - Personal history of transient ischemic attack (TIA), and cerebral infarction without residual deficits (4) GERD (gastroesophageal reflux disease) Status: Chronic Code(s): K21.9 - Gastro-esophageal reflux disease without esophagitis (5) Venous stasis dermatitis Status: Chronic Qualifiers: Code(s): I87.2 - Venous insufficiency (chronic) (peripheral) (6) PARAMJIT (obstructive sleep apnea) Status: Chronic Code(s): G47.33 - Obstructive sleep apnea (adult) (pediatric) (7) Hypothyroidism Status: Chronic Code(s): E03.9 - Hypothyroidism, unspecified (8) Bipolar 1 disorder Status: Chronic Code(s): F31.9 - Bipolar disorder, unspecified (9) Anemia in chronic illness Status: Chronic Code(s): D63.8 - Anemia in other chronic diseases classified elsewhere (10) Angina pectoris Status: Chronic Code(s): I20.9 - Angina pectoris, unspecified (11) Morbid obesity Status: Chronic Code(s): E66.01 - Morbid (severe) obesity due to excess calories (12) Bilateral lower extremity edema Status: Chronic Code(s): R60.0 - Localized edema (13) PAF (paroxysmal atrial fibrillation) Status: Chronic Code(s): I48.0 - Paroxysmal atrial fibrillation (14) HTN (hypertension) Status: Chronic Qualifiers: Code(s): I10 - Essential (primary) hypertension (15) HLD (hyperlipidemia) Status: Chronic Qualifiers: Code(s): E78.5 - Hyperlipidemia, unspecified (16) Anxiety and depression Status: Chronic Code(s): F41.9 - Anxiety disorder, unspecified; F32.9 - Major depressive disorder, single episode, unspecified (17) CKD (chronic kidney disease), stage III Status: Chronic Code(s): N18.3 - Chronic kidney disease, stage 3 (moderate) (18) Degenerative disc disease, cervical Status: Chronic Code(s): M50.30 - Other cervical disc degeneration, unspecified cervical region (19) Cervical spondylosis Status: Chronic Code(s): M47.812 - Spondylosis without myelopathy or radiculopathy, cervical region History of Present Illness Date of Service: 09/12/20 Chief Complaint: Swelling, edema, and lymphedema of the lower extremities bilaterally, with ulceration present x3 weeks to the right lower extremity. History of Wound: This is a 50-year-old morbidly obese white female with severe swelling, edema, and lymphedema in her lower extremities bilaterally. She has had multiple episodes of venous stasis dermatitis and ulcerations in her lower extremities, more predominantly in the right lower extremity. She denies a history of thrombophlebitis. Her morbid obesity precludes significant ambulation. She requires a walker for assistance. She spends most of her day in an idle sitting position. She claims to sleep on a flat mattress at night, often with her legs elevated. She presented with profound venous stasis dermatitis in the distal right lower extremity, which she says had been present for approximately 3 months and also an ulceration to the right lower extremity as well which has been present for 3 weeks. She notes small amount of clear fluid draining from her ulcer. She followed up with her primary care provider who referred her to the wound healing center for further evaluation and care. At home she uses lymphedema pumps at 40 mmHg 3 times a day for 30 minutes and wraps her lower extremities with Isreal wraps when she is not utilizing these. She has not been utilizing anything over top of the open ulcer. Past medical, family, and social history reviewed and not pertinent to the current visit and all other systems reviewed and negative with exception of those listed above. Past Medical History Past Medical History: Chronic Problems Lymphedema (Chronic) Secondary to chronic venous insufficieny of Bilateral Lower Extremity. Secondary lymphedema (Chronic) History of CVA (cerebrovascular accident) (Chronic) GERD (gastroesophageal reflux disease) (Chronic) Venous stasis dermatitis (Chronic) PARAMJIT (obstructive sleep apnea) (Chronic) Hypothyroidism (Chronic) Bipolar 1 disorder (Chronic) Anemia in chronic illness (Chronic) Angina pectoris (Chronic) Sacrococcygeal disorders, not elsewhere classified (Chronic) Morbid obesity (Chronic) Bilateral lower extremity edema (Chronic) Ulcer of left lower extremity with fat layer exposed (Chronic) Open wound of second toe of left foot (Chronic) Traumatic, Penetrating. Ulcer of right heel (Chronic) Abscess of left lower leg (Chronic) Left lower extremity ulcer s/p surgical I and D with fat layer exposed. PAF (paroxysmal atrial fibrillation) (Chronic) HTN (hypertension) (Chronic) HLD (hyperlipidemia) (Chronic) Anxiety and depression (Chronic) CKD (chronic kidney disease), stage III (Chronic) Facet arthropathy, cervical (Chronic) Degenerative disc disease, cervical (Chronic) Cervical spondylosis (Chronic) Surgical History: - - Hysterectomy, partial gastric bypass, cholecystectomy, appendectomy. Allergies/Adverse Reactions: Allergies amoxicillin trihydrate [From Augmentin] Allergy (Verified 01/18/20 09:21) Hives baclofen Allergy (Verified 01/18/20 09:21) Unknown gabapentin Allergy (Verified 01/18/20 09:21) Unknown Iodinated Contrast Media [CONTRASTS] Allergy (Verified 01/18/20 09:21) Anaphylaxis potassium clavulanate [From Augmentin] Allergy (Verified 01/18/20 09:21) Hives shrimp Allergy (Verified 01/18/20 09:21) Unknown valerian root Allergy (Uncoded 04/12/19 10:43) Unknown Home Medications: Ambulatory Orders Medication Instructions Recorded Furosemide [Lasix] 80 mg PO BID 08/01/14 Isosorbide Mononitrate [Imdur] 120 mg PO BID 08/01/14 Apixaban [Eliquis] 5 mg PO BID 05/07/17 Omeprazole [Prilosec] 20 mg PO LUNCH 05/07/17 Sotalol HCl [Betapace AF (Beta 80 mg PO BID 05/07/17 Bijan)] cycloBENZAPRine HCl [Flexeril] 10 mg PO TID PRN 07/13/17 Ondansetron [Zofran Odt] 4 mg PO Q8H PRN PRN #10 tablet 10/07/17 Amitriptyline HCl 25 mg PO QHS 06/08/18 Dicyclomine HCl [Bentyl] 10 mg PO 4X/DAY 06/08/18 ALPRAZolam [Xanax] 0.5 mg PO QHS PRN 07/01/18 Albuterol Inhaler [Ventolin Hfa] 2 puff INHALATION Q6H PRN PRN 11/10/18 Amlodipine [Norvasc] 10 mg PO QHS 11/10/18 Colestipol Tablet [Colestid Tablet] 3 gm PO BID 11/10/18 Meclizine HCl [Antivert] 25 mg PO TID PRN 11/10/18 Nystatin Powder [Mycostatin Powder] 1 applic TOPICAL 4X/DAY PRN PRN 11/10/18 Sertraline HCl [Zoloft] 50 mg PO QHS 11/10/18 Sumatriptan Succinate [Imitrex] 100 mg PO .X1 PRN 11/10/18 Ergocalciferol (Vitamin D2) 50,000 unit PO MOFR 03/20/19 [Vitamin D2] Spironolactone [Aldactone] 25 mg PO DAILY 03/20/19 Topiramate 100 mg PO TID 03/20/19 Clindamycin [Cleocin] 450 mg PO TID #63 cap 03/23/19 Lactobacillus Acidophilus 1 tab PO BID #14 tab 03/23/19 [Acidophilus] oxycodone-acetaminophen 5 mg-325 1 tab PO Q6H PRN #30 tab 03/25/19 mg tablet - Family History Maternal Family History: Family History (Last Updated 03/28/19 @ 13:45 by Idalia Andrews) Mother Hypertension Father Heart disease - - Patient notes a maternal family history of coronary disease, [place], passed in her 50s. Paternal Family History: Family History (Last Updated 03/28/19 @ 13:45 by Idalia Andrews) Mother Hypertension Father Heart disease - - Patient notes a paternal family history of coronary disease, history of [place], passed in his 60s. Smoking Status: Never smoker Review of Systems Constitutional: Denies: Chills, Fever, Weight Change Eyes: Denies: Pain, Vision Change HEENT: Denies: Difficulty Hearing, Difficulty Swallowing, Sinus Congestion Cardiovascular: Denies: Chest Pain, Palpitations Respiratory: Denies: Cough, Shortness of Breath Gastrointestinal: Denies: Diarrhea, Nausea, Vomiting Genitourinary: Denies: Dysuria, Hematuria Skin: Reports: Wounds - See HPI. Denies: Dryness Neurological: Denies: Balance problems Psychiatric: Denies: Anxiety Endocrine: Denies: Heat/ Cold Intolerance, Polydipsia, Polyuria Hematologic/ Lymphatic: Denies: Easy Bruising, Easy Bleeding - Physical Exam Vital Signs Temp Pulse Resp BP 97.5 F L 54 L 24 H 152/63 H 09/12/20 14:07 09/12/20 14:07 09/12/20 14:07 09/12/20 14:07 General: Alert, Oriented x3, Cooperative, No apparent distress HEENT: Atraumatic Oral: Moist Mucosa Neck: Supple Lungs: Clear to auscultation, Normal air movement Cardiovascular: Regular rate, Regular Rhythm, No murmurs Abdomen: Soft, Non Tender, Obese Extremities: No clubbing, No cyanosis, Edema - Severe chronic lymphedema present to bilateral lower extremities chronic venous stasis dermatitis present to right lower extremity, Peripheral Pulses Normal Skin: Ulcer/ Wound - See nursing documentation, right lower extremity ulcer with adherent slough, no obvious signs of infection at this time, no differential warmth or streaking noted Wound Measurements and Assessment WC - Nurse 1 - General Ulcer Measurement Start: 09/12/20 14:07 Freq: Status: Active Protocol: Activity Type Activity Date Activity User E-Sign Co-Sign Detail Recorded Client Recorded Date Recorded By Document 09/12/20 14:07 DL [id number] 09/12/20 14:20 DL 09/12/20 14:07 Wound Center Nurse 1 [Ulcer Assessment] #23 RLE Lat -Current Size (cm) - Length 0.3 -Current Size (cm) - Width 5.5 -Current Size (cm) - Depth 0.1 -Total Square Cm 1.65 -Photo Taken Yes -Exudate Amt Small -Exudate Type Serosanguineous -Wound Margin Distinct, Outline Attached -Granulation Amt Large (67-100%) -Granulation Quality [place] -Necrosis Amt Small (1-33%) -Necrotic Tissue Type Adherent Slough -Structure Exposed N/A -Texture (Martha-wound Skin Appearance) Scarring -Moisture (Martha-wound Skin Appearance Weeping ) -Color (Martha-wound Skin Appearance) Erythema, Hemosiderin Staining -Temperature (Martha-wound Skin No Abnormality Appearance) (Pt Warm) -Tenderness on Palpation (Martha-wound No Skin Appearance) -Ulcer Cleansing Rinsed/ Irrigated with Saline -Foul Odor after Cleansing No -Anesthetic Used 4% Lidocaine Solution [Edema Assessment] -Right Calf (cm) 77 -Right Ankle (cm) 36.2 -Right Foot (cm) 59 -Left Calf (cm) 30.5 - Nurse 2 - General Ulcer CM Notes Start: 09/12/20 14:07 Freq: Status: Active Protocol: Activity Type Activity Date Activity User E-Sign Co-Sign Detail Recorded Client Recorded Date Recorded By Document 09/12/20 14:35 MW [id number] 09/12/20 14:45 MW 09/12/20 14:35 Wound Center Nurse 2 [Procedure/Treatment] #23 RLE Lat -Time 14:36 -Correct Patient Yes -Correct Side, Site, Position Yes -Correct Procedure Yes -Procedure Performed Yes -Type of Procedure Debridement -Clinical Debridement Subcutaneous -Tissue Removed Subcutaneous -Post Debridement (cm) - Length 0.5 -Post Debridement (cm) - Width 7.0 -Post Debridement (cm) - Depth 0.1 -Total Square (Post) (cm) 3.50 -Area of Debridement (cm) - Length 0.5 -Area of Debridement (cm) - Width 7.0 -Total Square (Area) (cm) 3.50 -Tunneling No -Undermining/Tunneling No -Circular Undermining No -Wound/Ulcer Outcome Not Healed -Ulcer Cleansing Rinsed/ Irrigated with Saline -Foul Odor after Cleansing No -Bioengineered Tissue No -Bleeding Controlled with Pressure -Offloading No -Treatment Response Procedure Tolerated Well -Debridement - Subq, 1st 20sq cm Yes [See Physician Procedure note for Specifics] Pain Scale: 0-10 Numeric [Pain] -Is Patient Pain Free? Yes Neurological: Neuro grossly intact Psych/Mental Status: Normal Affect, Appropriate, Alert and oriented to time, place, person, mood and affect Debridement Note Post-Debridement Measurements/Treatment - Nurse 2 - General Ulcer CM Notes Start: 09/12/20 14:07 Freq: Status: Active Protocol: Activity Type Activity Date Activity User E-Sign Co-Sign Detail Recorded Client Recorded Date Recorded By Document 09/12/20 14:35 MW [id number] 09/12/20 14:45 MW 09/12/20 14:35 Wound Center Nurse 2 #23 RLE Lat -Time 14:36 -Correct Patient Yes -Correct Side, Site, Position Yes -Correct Procedure Yes -Procedure Performed Yes -Type of Procedure Debridement -Clinical Debridement Subcutaneous -Tissue Removed Subcutaneous -Post Debridement (cm) - Length 0.5 -Post Debridement (cm) - Width 7.0 -Post Debridement (cm) - Depth 0.1 -Total Square (Post) (cm) 3.50 -Area of Debridement (cm) - Length 0.5 -Area of Debridement (cm) - Width 7.0 -Total Square (Area) (cm) 3.50 -Tunneling No -Undermining/Tunneling No -Circular Undermining No -Wound/Ulcer Outcome Not Healed -Ulcer Cleansing Rinsed/ Irrigated with Saline -Foul Odor after Cleansing No -Bioengineered Tissue No -Bleeding Controlled with Pressure -Offloading No -Treatment Response Procedure Tolerated Well -Debridement - Subq, 1st 20sq cm Yes Pain Scale: 0-10 Numeric Is Patient Pain Free? Yes Wound debrided: Right lower extremity VL U Laterality: Right Type of Debridement: Excisional debridement Anesthesia Used: 5% Lidocaine Gel Depth: Down to and including healthy tissue, in the subcutaneous layer Percentage of wound debrided: 100 Instrument Used: 3mm curette Tissue Removed: Slough and-Devitalized tissue Severity: Fat Layer Exposed Amount of bleeding with debridement: Mild Bleeding Controlled with: Pressure Patient tolerated procedure well Assessment/Plan Assessment: Right lower extremity venous leg ulcer. Chronic venous stasis dermatitis. Chronic bilateral lymphedema Plan: The patient was seen and examined at the wound center today and was updated on the plan of care. A subcutaneous debridement was performed today. The patient tolerated the procedure well. The patients wound care will consist of: Application of silver cell change daily and as needed to open ulcerations and for compression she was instructed to continue utilizing her lymphedema pumps at 40 mmHg 30 minutes 3 times a day and that in between she should utilize her Isreal wraps for compression. No sign of cellulitis at this time. Wound cultures were collected. Baseline bloodwork held, will be considered if no improvement in wounds. Patient educated on the importance of diet on wound healing and instructed to increase protein and vitamin C intake. Patient verbalized understanding. Patient has been advised to elevate lower extremities as much as possible. Elevation is to be implemented during daytime hours and legs are to be elevated to heart level, or higher, as much as possible. Prolonged idle sitting has been discouraged. Activity and ambulation has been encouraged. Patient will follow up at wound healing center in one week or sooner if needed. This note was generated with Dragon dictation software. It may contain incorrect words, spelling, and punctuation that were not noted in checking the note before signing. Office Visits / Consults: [id number] OV L4 Est [id number]: [id number] [place] subq tissue 20 sq cm/<
[2020-09-12 15:27] VITALS: BP 145/65
[2020-09-19 13:21] VITALS: BP 147/91; PULSE 58; TEMP 35.9; BMI 73.2
--- NOTE | 2020-09-19 15:01 | PN.PCM_ITS ---
(1) Ulcer of right lower extremity with fat layer exposed Status: Acute Code(s): L97.912 - Non-pressure chronic ulcer of unspecified part of right lower leg with fat layer exposed Comment: Right lower extremity (2) Lymphedema Status: Chronic Code(s): I89.0 - Lymphedema, not elsewhere classified Comment: Secondary to chronic venous insufficieny of Bilateral Lower Extremity. (3) History of CVA (cerebrovascular accident) Status: Chronic Code(s): Z86.73 - Personal history of transient ischemic attack (TIA), and cerebral infarction without residual deficits (4) GERD (gastroesophageal reflux disease) Status: Chronic Code(s): K21.9 - Gastro-esophageal reflux disease without esophagitis (5) Venous stasis dermatitis Status: Chronic Qualifiers: Code(s): I87.2 - Venous insufficiency (chronic) (peripheral) (6) PARAMJIT (obstructive sleep apnea) Status: Chronic Code(s): G47.33 - Obstructive sleep apnea (adult) (pediatric) (7) Hypothyroidism Status: Chronic Code(s): E03.9 - Hypothyroidism, unspecified (8) Bipolar 1 disorder Status: Chronic Code(s): F31.9 - Bipolar disorder, unspecified (9) Anemia in chronic illness Status: Chronic Code(s): D63.8 - Anemia in other chronic diseases classified elsewhere (10) Angina pectoris Status: Chronic Code(s): I20.9 - Angina pectoris, unspecified (11) Morbid obesity Status: Chronic Code(s): E66.01 - Morbid (severe) obesity due to excess calories (12) Bilateral lower extremity edema Status: Chronic Code(s): R60.0 - Localized edema (13) PAF (paroxysmal atrial fibrillation) Status: Chronic Code(s): I48.0 - Paroxysmal atrial fibrillation (14) HTN (hypertension) Status: Chronic Qualifiers: Code(s): I10 - Essential (primary) hypertension (15) HLD (hyperlipidemia) Status: Chronic Qualifiers: Code(s): E78.5 - Hyperlipidemia, unspecified (16) Anxiety and depression Status: Chronic Code(s): F41.9 - Anxiety disorder, unspecified; F32.9 - Major depressive disorder, single episode, unspecified (17) CKD (chronic kidney disease), stage III Status: Chronic Code(s): N18.3 - Chronic kidney disease, stage 3 (moderate) (18) Degenerative disc disease, cervical Status: Chronic Code(s): M50.30 - Other cervical disc degeneration, unspecified cervical region (19) Cervical spondylosis Status: Chronic Code(s): M47.812 - Spondylosis without myelopathy or radiculopathy, cervical region Type of Wound Date of Service: 09/19/20 Chief Complaint: Swelling, edema, and lymphedema of the lower extremities bilaterally, with ulceration present x3 weeks to the right lower extremity. History of Wound: This is a 50-year-old morbidly obese white female with severe swelling, edema, and lymphedema in her lower extremities bilaterally. She has had multiple episodes of venous stasis dermatitis and ulcerations in her lower extremities, more predominantly in the right lower extremity. She denies a history of thrombophlebitis. Her morbid obesity precludes significant ambulation. She requires a walker for assistance. She spends most of her day in an idle sitting position. She claims to sleep on a flat mattress at night, often with her legs elevated. She presented with profound venous stasis dermatitis in the distal right lower extremity, which she says had been present for approximately 3 months and also an ulceration to the right lower extremity as well which has been present for 3 weeks. She notes small amount of clear fluid draining from her ulcer. She followed up with her primary care provider who referred her to the wound healing center for further evaluation and care. At home she uses lymphedema pumps at 40 mmHg 3 times a day for 30 minutes and wraps her lower extremities with Isreal wraps when she is not utilizing these. She has not been utilizing anything over top of the open ulcer. Past medical, family, and social history reviewed and not pertinent to the current visit and all other systems reviewed and negative with exception of those listed above. Progress of Wound: 09/19/2020?wound cultures were reviewed and showed staph aureus, patient will be placed on doxycycline, wound is deteriorated as patient states that it has become more itchy and she has been scratching it more. She states that she has tolerated Unna boots well in the past and would be willing to try these again today. Denies any systemic signs of infection at this time. - Physical Exam Vital Signs Temp Pulse Resp BP 96.7 F L 58 L 24 H 147/91 H 09/19/20 13:21 12/17/20 13:21 09/12/20 14:07 09/19/20 13:21 General: Alert, Oriented x3, Cooperative, No apparent distress HEENT: Atraumatic Oral: Moist Mucosa Lungs: Clear to auscultation Cardiovascular: Regular rate Abdomen: Soft, Non Tender, Obese Extremities: No clubbing, No cyanosis, Edema - 2+ edema bilateral lower extremities with chronic venous stasis dermatitis to right lower extremity, Peripheral Pulses Normal Skin: Ulcer/ Wound - See nursing documentation, slough and devitalized tissue present, no signs of infection at this time, site is reddened but this is chronically due to venous stasis dermatitis Wound Measurements and Assessment WC - Nurse 1 - General Ulcer Measurement Start: 09/12/20 14:07 Freq: Status: Active Protocol: Activity Type Activity Date Activity User E-Sign Co-Sign Detail Recorded Client Recorded Date Recorded By Document 09/19/20 13:21 KR [id number] 09/19/20 13:31 KR 09/19/20 13:21 Wound Center Nurse 1 [Ulcer Assessment] #23 RLE Lat -Current Size (cm) - Length 0.5 -Current Size (cm) - Width 0.4 -Current Size (cm) - Depth 0.1 -Total Square Cm 0.20 -Exudate Amt Medium -Exudate Type Serosanguineous -Wound Margin Distinct, Outline Attached -Granulation Amt Medium (34-66%) -Granulation Quality Red -Necrosis Amt Medium (34-66%) -Necrotic Tissue Type Adherent Slough -Texture (Martha-wound Skin Appearance) Assessed, Scarring -Moisture (Martha-wound Skin Appearance Assessed,Dry/ ) Scaly -Color (Martha-wound Skin Appearance) No Abnormality, Assessed -Temperature (Martha-wound Skin No Abnormality Appearance) (Pt Warm) -Ulcer Cleansing Rinsed/ Irrigated with Saline -Foul Odor after Cleansing No -Anesthetic Used 4% Lidocaine Solution [Edema Assessment] -Right Calf (cm) 86 -Right Ankle (cm) 33 WC - Nurse 2 - General Ulcer CM Notes Start: 09/12/20 14:07 Freq: Status: Active Protocol: Activity Type Activity Date Activity User E-Sign Co-Sign Detail Recorded Client Recorded Date Recorded By Document 09/19/20 14:12 MW [id number] 12/17/20 14:15 MW 09/19/20 14:12 Wound Center Nurse 2 [Procedure/Treatment] #23 RLE Lat -Time 14:14 -Correct Patient Yes -Correct Side, Site, Position Yes -Correct Procedure Yes -Procedure Performed Yes -Type of Procedure Debridement -Clinical Debridement Subcutaneous -Tissue Removed Subcutaneous -Post Debridement (cm) - Length 6.0 -Post Debridement (cm) - Width 5.0 -Post Debridement (cm) - Depth 0.1 -Total Square (Post) (cm) 30.00 -Area of Debridement (cm) - Length 6.0 -Area of Debridement (cm) - Width 5.0 -Total Square (Area) (cm) 30.00 -Tunneling No -Undermining/Tunneling No -Circular Undermining No -Wound/Ulcer Outcome Not Healed -Ulcer Cleansing Rinsed/ Irrigated with Saline -Foul Odor after Cleansing No -Bioengineered Tissue No -Bleeding Controlled with Pressure -Offloading No -Treatment Response Procedure Tolerated Well -Debridement - Subq, 1st 20sq cm Yes -Debridement, SubQ, ea addt'l 20sq cm 1 or part thereof [See Physician Procedure note for Specifics] Pain Scale: 0-10 Numeric [Pain] -Is Patient Pain Free? Yes Neurological: Neuro grossly intact Psych/Mental Status: Normal Affect, Appropriate, Alert and oriented to time, place, person, mood and affect Debridement Note Post-Debridement Measurements/Treatment WC - Nurse 2 - General Ulcer CM Notes Start: 09/12/20 14:07 Freq: Status: Active Protocol: Activity Type Activity Date Activity User E-Sign Co-Sign Detail Recorded Client Recorded Date Recorded By Document 09/12/20 14:35 MW [id number] 09/12/20 14:45 MW Document 09/19/20 14:12 MW [id number] 09/19/20 14:15 MW 09/12/20 09/19/20 14:35 14:12 Wound Center Nurse 2 #23 RLE Lat -Time 14:36 14:14 -Correct Patient Yes Yes -Correct Side, Site, Position Yes Yes -Correct Procedure Yes Yes -Procedure Performed Yes Yes -Type of Procedure Debridement Debridement -Clinical Debridement Subcutaneous Subcutaneous -Tissue Removed Subcutaneous Subcutaneous -Post Debridement (cm) - Length 0.5 6.0 -Post Debridement (cm) - Width 7.0 5.0 -Post Debridement (cm) - Depth 0.1 0.1 -Total Square (Post) (cm) 3.50 30.00 -Area of Debridement (cm) - Length 0.5 6.0 -Area of Debridement (cm) - Width 7.0 5.0 -Total Square (Area) (cm) 3.50 30.00 -Tunneling No No -Undermining/Tunneling No No -Circular Undermining No No -Wound/Ulcer Outcome Not Healed Not Healed -Ulcer Cleansing Rinsed/ Rinsed/ Irrigated with Irrigated with Saline Saline -Foul Odor after Cleansing No No -Bioengineered Tissue No No -Bleeding Controlled with Pressure Pressure -Offloading No No -Treatment Response Procedure Procedure Tolerated Well Tolerated Well -Debridement - Subq, 1st 20sq cm Yes Yes -Debridement, SubQ, ea addt'l 20sq cm 1 or part thereof Pain Scale: 0-10 Numeric Is Patient Pain Free? Yes Yes - Nurse 3 - General Ulcer D/C NN Start: 09/12/20 14:07 Freq: Status: Active Protocol: Activity Type Activity Date Activity User E-Sign Co-Sign Detail Recorded Client Recorded Date Recorded By Document 09/12/20 15:27 [id number] 09/12/20 15:28 09/12/20 15:27 Wound Care Nurse 3 #23 RLE Lat -Ulcer Cleansing Wound Cleanser -Primary Dressing Applied Silvercel -Other Dressing abd -Primary Dressing Covered/Secured with Dry Gauze,Dry Gauze & Roll Gauze,Secured with Tape -Silvercel 1 Right -Other isreal Left -Other isreal Vital Signs Blood Pressure (90/60-120/80) 145/65 H Blood Pressure Mean (mm Hg) 91 Source Monitor Position Semi-Fowlers Blood Pressure Location Left Arm Pain Scale: 0-10 Numeric Is Patient Pain Free? Yes - Visit Discharge Discharge Condition Stable Ambulatory Status Ambulatory, Walker Transportation Private Auto Medication Reconcilliation completed & No provided to patient/care provider Clinical Summary of Care Provided Yes Wound debrided: Right lower extremity venous leg ulcer Laterality: Right Type of Debridement: Excisional debridement Anesthesia Used: 5% Lidocaine Gel Depth: in the subcutaneous layer Percentage of wound debrided: 100 Instrument Used: 5mm curette Tissue Removed: Slough and devitalized tissue Severity: Fat Layer Exposed Amount of bleeding with debridement: Mild Bleeding Controlled with: Pressure Patient tolerated procedure well Assessment/Plan Active Problems Lymphedema (Chronic) Secondary to chronic venous insufficieny of Bilateral Lower Extremity. History of CVA (cerebrovascular accident) (Chronic) GERD (gastroesophageal reflux disease) (Chronic) Venous stasis dermatitis (Chronic) PARAMJIT (obstructive sleep apnea) (Chronic) Hypothyroidism (Chronic) Bipolar 1 disorder (Chronic) Anemia in chronic illness (Chronic) Angina pectoris (Chronic) Ulcer of right lower extremity with fat layer exposed (Acute) Right lower extremity Morbid obesity (Chronic) Bilateral lower extremity edema (Chronic) PAF (paroxysmal atrial fibrillation) (Chronic) HTN (hypertension) (Chronic) HLD (hyperlipidemia) (Chronic) Anxiety and depression (Chronic) CKD (chronic kidney disease), stage III (Chronic) Degenerative disc disease, cervical (Chronic) Cervical spondylosis (Chronic) Assessment: Right lower extremity venous leg ulcer. Chronic venous stasis dermatitis. Chronic bilateral lymphedema Plan: The patient was seen and examined at the wound center today and was updated on the plan of care. A subcutaneous debridement was performed today. The patient tolerated the procedure well. The patients wound care will consist of: Application of an Unna boot to her right lower extremity change on Wednesday. She may continue to utilize her lymphedema pumps at 40 mmHg 30 minutes 3 times a day on her other leg. No sign of cellulitis at this time. Wound cultures were collected and showed staph aureus which we will be treating with doxycycline. Baseline bloodwork held, will be considered if no improvement in wounds. Patient educated on the importance of diet on wound healing and instructed to increase protein and vitamin C intake. Patient verbalized understanding. Patient has been advised to elevate lower extremities as much as possible. Elevation is to be implemented during daytime hours and legs are to be elevated to heart level, or higher, as much as possible. Prolonged idle sitting has been discouraged. Activity and ambulation has been encouraged. Patient will follow up at wound healing center in one week or sooner if needed. This note was generated with [employer] dictation software. It may contain incorrect words, spelling, and punctuation that were not noted in checking the note before signing. [id number]: [id number] [place] subq tissue 20 sq cm/<
[2020-09-23 14:27] VITALS: BP 160/98; PULSE 56; RESP 16; TEMP 36.2; BMI 73.2
[2020-09-26 08:34] VITALS: BP 146/74; PULSE 58; RESP 18; TEMP 35.8; BMI 73.2
--- NOTE | 2020-09-26 09:26 | PCM.WC.PN ---
(1) Ulcer of right lower extremity with fat layer exposed Status: Acute Code(s): L97.912 - Non-pressure chronic ulcer of unspecified part of right lower leg with fat layer exposed Comment: Right lower extremity (2) Bilateral lower extremity edema Status: Chronic Code(s): R60.0 - Localized edema (3) Lymphedema Status: Chronic Code(s): I89.0 - Lymphedema, not elsewhere classified Comment: Secondary to chronic venous insufficieny of Bilateral Lower Extremity. (4) Morbid obesity Status: Chronic Code(s): E66.01 - Morbid (severe) obesity due to excess calories Type of Wound Date of Service: 09/26/20 Chief Complaint: Swelling, edema, and lymphedema of the lower extremities bilaterally, with ulceration present x3 weeks to the right lower extremity. History of Wound: This is a 50-year-old morbidly obese white female with severe swelling, edema, and lymphedema in her lower extremities bilaterally. She has had multiple episodes of venous stasis dermatitis and ulcerations in her lower extremities, more predominantly in the right lower extremity. She denies a history of thrombophlebitis. Her morbid obesity precludes significant ambulation. She requires a walker for assistance. She spends most of her day in an idle sitting position. She claims to sleep on a flat mattress at night, often with her legs elevated. She presented with profound venous stasis dermatitis in the distal right lower extremity, which she says had been present for approximately 3 months and also an ulceration to the right lower extremity as well which has been present for 3 weeks. She notes small amount of clear fluid draining from her ulcer. She followed up with her primary care provider who referred her to the wound healing center for further evaluation and care. At home she uses lymphedema pumps at 40 mmHg 3 times a day for 30 minutes and wraps her lower extremities with Isreal wraps when she is not utilizing these. She has not been utilizing anything over top of the open ulcer. Past medical, family, and social history reviewed and not pertinent to the current visit and all other systems reviewed and negative with exception of those listed above. Progress of Wound: Courtesy Visit for Shawn Moulton NP. No new concerns at this time. Minimal area left. - Physical Exam Vital Signs Temp Pulse Resp BP 96.5 F L 58 L 18 146/74 H 09/26/20 08:34 09/26/20 08:34 09/26/20 08:34 09/26/20 08:34 General: Alert, Oriented x3, Cooperative, No apparent distress HEENT: Atraumatic, Normocephalic Oral: Moist Mucosa Neck: Supple Lungs: Normal air movement Abdomen: Non Tender, Obese Extremities: No cyanosis, Edema Skin: Ulcer/ Wound Wound Measurements and Assessment WC - Nurse 1 - General Ulcer Measurement Start: 09/12/20 14:07 Freq: Status: Active Protocol: Activity Type Activity Date Activity User E-Sign Co-Sign Detail Recorded Client Recorded Date Recorded By Document 09/23/20 14:27 BMF [id number] 09/23/20 14:29 BM Document 09/26/20 08:34 RB [id number] 09/26/20 08:43 RB 09/23/20 09/26/20 14:27 08:34 [Ulcer Assessment] #23 RLE Lat -Combined with other wound No -Current Size (cm) - Length 0.1 -Current Size (cm) - Width 0.1 -Current Size (cm) - Depth 0.1 -Total Square Cm 0.01 -Tunneling No -Undermining/Tunneling No -Circular Undermining No -Exudate Amt Medium -Exudate Type Serosanguineous -Wound Margin Flat & Intact -Granulation Amt Medium (34-66%) -Granulation Quality [place],Red -Slough/Fibrin Yes -Necrosis Amt Small (1-33%) -Necrotic Tissue Type Adherent Slough -Structure Exposed N/A -Texture (Martha-wound Skin Appearance) Excoriation -Moisture (Martha-wound Skin Appearance Weeping ) -Color (Martha-wound Skin Appearance) Assessed -Temperature (Martha-wound Skin No Abnormality Appearance) (Pt Warm) -Tenderness on Palpation (Martha-wound No Skin Appearance) -Ulcer Cleansing Wound Cleanser -Foul Odor after Cleansing No -Anesthetic Used 4% Lidocaine Solution Wound Center Nurse 1 [Edema Assessment] -Lower Limb Edema Present Yes Yes -Right Calf (cm) 72 73.5 -Right Ankle (cm) 32 32.3 WC - Nurse 2 - General Ulcer CM Notes Start: 09/12/20 14:07 Freq: Status: Active Protocol: Activity Type Activity Date Activity User E-Sign Co-Sign Detail Recorded Client Recorded Date Recorded By Document 09/26/20 08:49 MW [id number] 09/26/20 08:52 MW 09/26/20 08:49 Wound Center Nurse 2 [Procedure/Treatment] #23 RLE Lat -Time 08:49 -Correct Patient Yes -Correct Side, Site, Position Yes -Correct Procedure Yes -Procedure Performed No -Post Debridement (cm) - Length 0.1 -Post Debridement (cm) - Width 0.1 -Post Debridement (cm) - Depth 0.1 -Total Square (Post) (cm) 0.01 -Tunneling No -Undermining/Tunneling No -Circular Undermining No -Wound/Ulcer Outcome Not Healed -Ulcer Cleansing Rinsed/ Irrigated with Saline -Foul Odor after Cleansing No -Bioengineered Tissue No -Bleeding Controlled with Pressure -Offloading No -Treatment Response Procedure Tolerated Well -Debridement - Subq, 1st 20sq cm No [See Physician Procedure note for Specifics] Pain Scale: 0-10 Numeric [Pain] -Is Patient Pain Free? Yes WC - Nurse 3 - General Ulcer D/C NN Start: 09/12/20 14:07 Freq: Status: Active Protocol: Activity Type Activity Date Activity User E-Sign Co-Sign Detail Recorded Client Recorded Date Recorded By Document 09/23/20 14:27 [facility] [id number] 09/23/20 14:29 [facility] Document 09/26/20 09:13 DL [id number] 09/26/20 09:15 DL 09/23/20 09/26/20 14:27 09:13 Vital Signs [Temperature Protocol: VS] -Temperature (97.8 F-99.1 F) 97.2 F L -Temperature Source Temporal [Pulse] -Pulse Rate (60-100 beats/min) 56 L -Pulse Location Monitor [Respirations] -Respiratory Rate (12-18 breaths/min) 16 -Respiratory rate source Observation -Oxygen Delivery Method Room Air [Blood Pressure] -Blood Pressure (90/60-120/80 mm Hg) 160/98 H -Blood Pressure Mean (mm Hg) 118 -Source Monitor -Position Sitting -Blood Pressure Location Right Forearm Pain Scale: 0-10 Numeric [Pain] -Is Patient Pain Free? Yes Yes Wound Care Nurse 3 [Wound Dressing] #23 RLE Lat -Ulcer Cleansing SOAPY WATER Wound Cleanser -Foul Odor after Cleansing No No -Other Dressing unna boot -Primary Dressing Covered/Secured Other with -Other Covering UNNA BOOT [Compression Applied] Right -Multi-Layered Wrap Application Unna Boot - Unna Boot - Right ($) Bilateral ($) -Compression Wrap Unna Boot ($) ( Unna Boot ($) ( single) single) -Unna Boots (Bilat) ($) 2 Left -Other isreal [Post Procedure Tolerated] -Treatment Response Procedure Procedure Tolerated Well Tolerated Well WC - Visit Discharge [Visit Discharge Information] -Discharge Condition Stable -Ambulatory Status Ambulatory, Ambulatory Walker -Notes: sentj extra unna boot with pt for HH to use Musculoskeletal: No Muscle Wasting Neurological: Cranial nerves II-XII grossly intact Debridement Note Post-Debridement Measurements/Treatment WC - Nurse 2 - General Ulcer CM Notes Start: 09/12/20 14:07 Freq: Status: Active Protocol: Activity Type Activity Date Activity User E-Sign Co-Sign Detail Recorded Client Recorded Date Recorded By Document 09/12/20 14:35 MW [id number] 09/12/20 14:45 MW Document 09/19/20 14:12 MW [id number] 09/19/20 14:15 MW Document 09/26/20 08:49 MW [id number] 09/26/20 08:52 MW 09/12/20 09/19/20 09/26/20 14:35 14:12 08:49 Wound Center Nurse 2 #23 RLE Lat -Time 14:36 14:14 08:49 -Correct Patient Yes Yes Yes -Correct Side, Site, Position Yes Yes Yes -Correct Procedure Yes Yes Yes -Procedure Performed Yes Yes No -Type of Procedure Debridement Debridement -Clinical Debridement Subcutaneous Subcutaneous -Tissue Removed Subcutaneous Subcutaneous -Post Debridement (cm) - Length 0.5 6.0 0.1 -Post Debridement (cm) - Width 7.0 5.0 0.1 -Post Debridement (cm) - Depth 0.1 0.1 0.1 -Total Square (Post) (cm) 3.50 30.00 0.01 -Area of Debridement (cm) - Length 0.5 6.0 -Area of Debridement (cm) - Width 7.0 5.0 -Total Square (Area) (cm) 3.50 30.00 -Tunneling No No No -Undermining/Tunneling No No No -Circular Undermining No No No -Wound/Ulcer Outcome Not Healed Not Healed Not Healed -Ulcer Cleansing Rinsed/ Rinsed/ Rinsed/ Irrigated with Irrigated with Irrigated with Saline Saline Saline -Foul Odor after Cleansing No No No -Bioengineered Tissue No No No -Bleeding Controlled with Pressure Pressure Pressure -Offloading No No No -Treatment Response Procedure Procedure Procedure Tolerated Well Tolerated Well Tolerated Well -Debridement - Subq, 1st 20sq cm Yes Yes No -Debridement, SubQ, ea addt'l 20sq cm 1 or part thereof Pain Scale: 0-10 Numeric Is Patient Pain Free? Yes Yes Yes WC - Nurse 3 - General Ulcer D/C NN Start: 09/12/20 14:07 Freq: Status: Active Protocol: Activity Type Activity Date Activity User E-Sign Co-Sign Detail Recorded Client Recorded Date Recorded By Document 09/12/20 15:27 RB [id number] 09/12/20 15:28 RB Document 09/19/20 15:17 DL [id number] 09/19/20 15:18 DL Document 09/23/20 14:27 BMF [id number] 09/23/20 14:29 BMF Document 09/26/20 09:13 DL [id number] 09/26/20 09:15 DL 09/12/20 09/19/20 09/23/20 15:27 15:17 14:27 Wound Care Nurse 3 #23 RLE Lat -Ulcer Cleansing Wound Cleanser Wound Cleanser SOAPY WATER -Foul Odor after Cleansing No No -Primary Dressing Applied Silvercel -Other Dressing abd -Primary Dressing Covered/Secured with Dry Gauze,Dry Other Gauze & Roll Gauze,Secured with Tape -Other Covering UNNA BOOT -Silvercel 1 Right -Multi-Layered Wrap Application Unna Boot - Unna Boot - Right ($) Right ($) -Compression Wrap Unna Boot ($) ( single) -Unna Boots (Bilat) ($) -Other isreal Left -Other isreal Treatment Response Procedure Procedure Tolerated Well Tolerated Well Temperature (97.8 F-99.1 F) 97.2 F L Temperature Source Temporal Pulse Rate (60-100 beats/min) 56 L Pulse Location Monitor Respiratory Rate (12-18 breaths/min) 16 Respiratory rate source Observation Oxygen Delivery Method Room Air Vital Signs Blood Pressure (90/60-120/80 mm Hg) 145/65 H 160/98 H Blood Pressure Mean (mm Hg) 91 118 Source Monitor Monitor Position Semi-Fowlers Sitting Blood Pressure Location Left Arm Right Forearm Pain Scale: 0-10 Numeric Is Patient Pain Free? Yes Yes Yes WC - Visit Discharge Discharge Condition Stable Stable Stable Ambulatory Status Ambulatory, Ambulatory Ambulatory, Walker Walker Transportation Private Auto Private Auto Medication Reconcilliation completed & No provided to patient/care provider Clinical Summary of Care Provided Yes Notes: Facility Type Home Health Orders Sent Yes 09/26/20 09:13 Wound Care Nurse 3 #23 RLE Lat -Ulcer Cleansing Wound Cleanser -Foul Odor after Cleansing No -Primary Dressing Applied -Other Dressing unna boot -Primary Dressing Covered/Secured with -Other Covering -Silvercel Right -Multi-Layered Wrap Application Unna Boot - Bilateral ($) -Compression Wrap Unna Boot ($) ( single) -Unna Boots (Bilat) ($) 2 -Other Left -Other isreal Treatment Response Procedure Tolerated Well Temperature (97.8 F-99.1 F) Temperature Source Pulse Rate (60-100 beats/min) Pulse Location Respiratory Rate (12-18 breaths/min) Respiratory rate source Oxygen Delivery Method Vital Signs Blood Pressure (90/60-120/80 mm Hg) Blood Pressure Mean (mm Hg) Source Position Blood Pressure Location Pain Scale: 0-10 Numeric Is Patient Pain Free? Yes WC - Visit Discharge Discharge Condition Ambulatory Status Ambulatory Transportation Medication Reconcilliation completed & provided to patient/care provider Clinical Summary of Care Provided Notes: sentj extra unna boot with pt for HH to use Facility Type Orders Sent No debridement was completed today Assessment/Plan Active Problems Lymphedema (Chronic) Secondary to chronic venous insufficieny of Bilateral Lower Extremity. History of CVA (cerebrovascular accident) (Chronic) GERD (gastroesophageal reflux disease) (Chronic) Venous stasis dermatitis (Chronic) PARAMJIT (obstructive sleep apnea) (Chronic) Hypothyroidism (Chronic) Bipolar 1 disorder (Chronic) Anemia in chronic illness (Chronic) Angina pectoris (Chronic) Ulcer of right lower extremity with fat layer exposed (Acute) Right lower extremity Morbid obesity (Chronic) Bilateral lower extremity edema (Chronic) PAF (paroxysmal atrial fibrillation) (Chronic) HTN (hypertension) (Chronic) HLD (hyperlipidemia) (Chronic) Anxiety and depression (Chronic) CKD (chronic kidney disease), stage III (Chronic) Degenerative disc disease, cervical (Chronic) Cervical spondylosis (Chronic) Assessment: Right lower extremity venous leg ulcer. Chronic venous stasis dermatitis. Chronic bilateral lymphedema Plan: Minimal area left. Still area of erythema. No debridement completed today. Continue silver cell and Dulce boot. Change in a week by home health. Complete current antibiotic. Elevate lower extremity when seated and in bed. Increase protein intake as well. Exercise as tolerated. Her questions were answered and she was advised to call with any further questions or concerns. Follow-up in 2 weeks with Shawn Moulton NP. This note was generated with [employer] software. It may contain incorrect words, spelling, and punctuation that were not noted in checking the note before signing. Office Visits / Consults: [id number] OV L3 Est
== END 2020-10-03 23:59 ==
LOC: WC 08:15
PROVIDERS: PCP Student in an Organized Health Care Education/Training Program; Referring Provider Student in an Organized Health Care Education/Training Program; Visit Provider Nurse Practitioner Family
DX: I87.2 Venous insufficiency (chronic) (peripheral) (principal); K21.9 Gastro-esophageal reflux disease without esophagitis; L97.812 Non-pressure chronic ulcer of other part of right lower leg with fat layer exposed; G47.33 Obstructive sleep apnea (adult) (pediatric); I89.0 Lymphedema, not elsewhere classified; D63.8 Anemia in other chronic diseases classified elsewhere; E66.01 Morbid (severe) obesity due to excess calories; I48.0 Paroxysmal atrial fibrillation; R60.0 Localized edema; I12.9 Hypertensive chronic kidney disease with stage 1 through stage 4 chronic kidney disease, or unspecified chronic kidney disease; E78.5 Hyperlipidemia, unspecified; N18.30 Chronic kidney disease, stage 3 unspecified; Z79.899 Other long term (current) drug therapy; Z79.01 Long term (current) use of anticoagulants; F41.9 Anxiety disorder, unspecified; F31.9 Bipolar disorder, unspecified
CPT/HCPCS: 11042; 11045; 29580; 87070; 87075; 87077; 87186; 87205; 99213; G0463

== ENCOUNTER 2020-10-24 13:00 | Outpatient (RCR) | payer MEDICARE, MEDICAID, SELFPAY ==
[2020-10-04 00:08] VITALS: BP 146/74; PULSE 58; RESP 18; TEMP 35.8
[2020-10-08 14:06] VITALS: BP 175/81; PULSE 62; RESP 20; TEMP 36; BMI 73.2
[2020-10-10 13:19] VITALS: BP 179/69; PULSE 56; RESP 24; TEMP 35.6; BMI 73.2
--- NOTE | 2020-10-10 17:15 | PN.PCM_ITS ---
(1) Ulcer of right lower extremity with fat layer exposed Status: Acute Code(s): L97.912 - Non-pressure chronic ulcer of unspecified part of right lower leg with fat layer exposed Comment: Right lower extremity (2) Anxiety and depression Status: Chronic Code(s): F41.9 - Anxiety disorder, unspecified; F32.9 - Major depressive disorder, single episode, unspecified (3) Bilateral lower extremity edema Status: Chronic Code(s): R60.0 - Localized edema (4) Bipolar 1 disorder Status: Chronic Code(s): F31.9 - Bipolar disorder, unspecified (5) CKD (chronic kidney disease), stage III Status: Chronic Code(s): N18.3 - Chronic kidney disease, stage 3 (moderate) (6) GERD (gastroesophageal reflux disease) Status: Chronic Code(s): K21.9 - Gastro-esophageal reflux disease without esophagitis (7) HLD (hyperlipidemia) Status: Chronic Qualifiers: Code(s): E78.5 - Hyperlipidemia, unspecified (8) HTN (hypertension) Status: Chronic Qualifiers: Code(s): I10 - Essential (primary) hypertension (9) Morbid obesity Status: Chronic Code(s): E66.01 - Morbid (severe) obesity due to excess calories (10) Venous stasis dermatitis Status: Chronic Qualifiers: Code(s): I87.2 - Venous insufficiency (chronic) (peripheral) Type of Wound Date of Service: 10/10/20 Chief Complaint: Swelling, edema, and lymphedema of the lower extremities bilaterally, with ulceration present x3 weeks to the right lower extremity. History of Wound: This is a 50-year-old morbidly obese white female with severe swelling, edema, and lymphedema in her lower extremities bilaterally. She has had multiple episodes of venous stasis dermatitis and ulcerations in her lower extremities, more predominantly in the right lower extremity. She denies a history of thrombophlebitis. Her morbid obesity precludes significant ambulation. She requires a walker for assistance. She spends most of her day in an idle sitting position. She claims to sleep on a flat mattress at night, often with her legs elevated. She presented with profound venous stasis dermatitis in the distal right lower extremity, which she says had been present for approximately 3 months and also an ulceration to the right lower extremity as well which has been present for 3 weeks. She notes small amount of clear fluid draining from her ulcer. She followed up with her primary care provider who referred her to the wound healing center for further evaluation and care. At home she uses lymphedema pumps at 40 mmHg 3 times a day for 30 minutes and wraps her lower extremities with Isreal wraps when she is not utilizing these. She has not been utilizing anything over top of the open ulcer. Past medical, family, and social history reviewed and not pertinent to the current visit and all other systems reviewed and negative with exception of those listed above. Progress of Wound: Patient has noted an increase in redness, warmth, and pain to her right lower extremity ulcer. No streaking at this time and no systemic signs of infection such as fever chills. Site does appear cellulitic and therefore patient will be treated empirically with doxycycline and wound cultures were collected. - Physical Exam Vital Signs Temp Pulse Resp BP 96.1 F L 56 L 24 H 179/69 H 10/10/20 13:19 10/10/20 13:19 10/10/20 13:19 10/10/20 13:19 General: Alert, Oriented x3, Cooperative, No apparent distress HEENT: Atraumatic Oral: Moist Mucosa Lungs: Clear to auscultation, Normal air movement Cardiovascular: Regular rate, Regular Rhythm Abdomen: Soft, Non Tender, Obese Extremities: No clubbing, No cyanosis, Edema - Severe chronic lymphedema bilateral lower extremities, Peripheral Pulses Normal Skin: Ulcer/ Wound - See nursing documentation, slough and devitalized tissue present right lower extremity ulcer, large surrounding area consistent with cellulitis present as well with venous stasis dermatitis Wound Measurements and Assessment WC - Nurse 1 - General Ulcer Measurement Start: 10/08/20 14:06 Freq: Status: Active Protocol: Activity Type Activity Date Activity User E-Sign Co-Sign Detail Recorded Client Recorded Date Recorded By Document 10/10/20 13:19 DL [id number] 10/10/20 13:31 DL 10/10/20 13:19 Wound Center Nurse 1 [Ulcer Assessment] #23 RLE Lat -Current Size (cm) - Length 18 -Current Size (cm) - Width 33 -Current Size (cm) - Depth 0.1 -Total Square Cm 594 -Photo Taken No -Exudate Amt Medium -Exudate Type Serosanguineous -Wound Margin Distinct, Outline Attached -Granulation Amt Large (67-100%) -Granulation Quality Red -Necrosis Amt Medium (34-66%) -Necrotic Tissue Type Adherent Slough -Structure Exposed N/A -Texture (Martha-wound Skin Appearance) Excoriation, Scarring -Moisture (Martha-wound Skin Appearance Weeping ) -Color (Martha-wound Skin Appearance) No Abnormality -Temperature (Martha-wound Skin No Abnormality Appearance) (Pt Warm) -Tenderness on Palpation (Martha-wound Yes Skin Appearance) -Ulcer Cleansing Wound Cleanser -Foul Odor after Cleansing No -Anesthetic Used 4% Lidocaine Solution [Edema Assessment] -Right Calf (cm) 74.5 -Right Ankle (cm) 33 WC - Nurse 2 - General Ulcer CM Notes Start: 10/08/20 14:06 Freq: Status: Active Protocol: Activity Type Activity Date Activity User E-Sign Co-Sign Detail Recorded Client Recorded Date Recorded By Document 10/10/20 14:34 MW [id number] 10/10/20 14:36 MW 10/10/20 14:34 Wound Center Nurse 2 [Procedure/Treatment] #23 RLE Lat -Time 14:36 -Correct Patient Yes -Correct Side, Site, Position Yes -Correct Procedure Yes -Procedure Performed Yes -Type of Procedure Debridement -Clinical Debridement Subcutaneous -Tissue Removed Subcutaneous -Post Debridement (cm) - Length 0.5 -Post Debridement (cm) - Width 2.0 -Post Debridement (cm) - Depth 0.1 -Total Square (Post) (cm) 1.00 -Area of Debridement (cm) - Length 0.5 -Area of Debridement (cm) - Width 2.0 -Total Square (Area) (cm) 1.00 -Tunneling No -Undermining/Tunneling No -Circular Undermining No -Wound/Ulcer Outcome Not Healed -Ulcer Cleansing Rinsed/ Irrigated with Saline -Foul Odor after Cleansing No -Bioengineered Tissue No -Bleeding Controlled with Pressure -Offloading No -Treatment Response Procedure Tolerated Well -Debridement - Subq, 1st 20sq cm Yes [See Physician Procedure note for Specifics] Pain Scale: 0-10 Numeric [Pain] -Is Patient Pain Free? Yes FELICITY - Nurse 3 - General Ulcer D/C NN Start: 10/08/20 14:06 Freq: Status: Active Protocol: Activity Type Activity Date Activity User E-Sign Co-Sign Detail Recorded Client Recorded Date Recorded By Document 10/08/20 14:06 [facility] [id number] 10/08/20 14:07 [facility] Document 10/10/20 14:54 [facility] [id number] 10/10/20 14:54 [facility] 10/08/20 10/10/20 14:06 14:54 Vital Signs [Temperature Protocol: VS] -Temperature (97.8 F-99.1 F) 96.8 F L -Temperature Source Temporal [Pulse] -Pulse Rate (60-100) 62 -Pulse Location Monitor [Respirations] -Respiratory Rate (12-18) 20 H -Respiratory rate source Observation -Oxygen Delivery Method Room Air [Blood Pressure] -Blood Pressure (90/60-120/80) 175/81 H -Blood Pressure Mean (mm Hg) 112 -Source Monitor -Position Sitting -Blood Pressure Location Right Arm Pain Scale: 0-10 Numeric [Pain] -Is Patient Pain Free? Yes Yes Wound Care Nurse 3 [Wound Dressing] #23 RLE Lat -Ulcer Cleansing SOAPY WATER -Foul Odor after Cleansing No -Primary Dressing Applied Other Other -Other Dressing UNNA BOOT unna boot -Other Covering DRSG PER M YOLI RN [Compression Applied] Left -Compression Wrap Isreal Wrap Right -Multi-Layered Wrap Application Unna Boot - Unna Boot - Right ($) Right ($) -Compression Wrap Unna Boot ($) ( Unna Boot ($) ( single) single) [Post Procedure Tolerated] -Treatment Response Procedure Tolerated Well WC - Visit Discharge [Visit Discharge Information] -Discharge Condition Stable Stable -Ambulatory Status Ambulatory Ambulatory -Transportation [facility] [Facility Notification] -Facility Type Home Health Neurological: Neuro grossly intact Psych/Mental Status: Normal Affect, Appropriate, Alert and oriented to time, place, person, mood and affect Debridement Note Post-Debridement Measurements/Treatment WC - Nurse 2 - General Ulcer CM Notes Start: 10/08/20 14:06 Freq: Status: Active Protocol: Activity Type Activity Date Activity User E-Sign Co-Sign Detail Recorded Client Recorded Date Recorded By Document 10/10/20 14:34 MW [id number] 10/10/20 14:36 MW 10/10/20 14:34 Wound Center Nurse 2 #23 RLE Lat -Time 14:36 -Correct Patient Yes -Correct Side, Site, Position Yes -Correct Procedure Yes -Procedure Performed Yes -Type of Procedure Debridement -Clinical Debridement Subcutaneous -Tissue Removed Subcutaneous -Post Debridement (cm) - Length 0.5 -Post Debridement (cm) - Width 2.0 -Post Debridement (cm) - Depth 0.1 -Total Square (Post) (cm) 1.00 -Area of Debridement (cm) - Length 0.5 -Area of Debridement (cm) - Width 2.0 -Total Square (Area) (cm) 1.00 -Tunneling No -Undermining/Tunneling No -Circular Undermining No -Wound/Ulcer Outcome Not Healed -Ulcer Cleansing Rinsed/ Irrigated with Saline -Foul Odor after Cleansing No -Bioengineered Tissue No -Bleeding Controlled with Pressure -Offloading No -Treatment Response Procedure Tolerated Well -Debridement - Subq, 1st 20sq cm Yes Pain Scale: 0-10 Numeric Is Patient Pain Free? Yes WC - Nurse 3 - General Ulcer D/C NN Start: 10/08/20 14:06 Freq: Status: Active Protocol: Activity Type Activity Date Activity User E-Sign Co-Sign Detail Recorded Client Recorded Date Recorded By Document 10/08/20 14:06 [facility] [id number] 10/08/20 14:07 [employer] Document 10/10/20 14:54 [employer] [id number] 10/10/20 14:54 [employer] 10/08/20 10/10/20 14:06 14:54 Vital Signs Temperature (97.8 F-99.1 F) 96.8 F L Temperature Source Temporal Pulse Rate (60-100) 62 Pulse Location Monitor Respiratory Rate (12-18) 20 H Respiratory rate source Observation Oxygen Delivery Method Room Air Blood Pressure (90/60-120/80) 175/81 H Blood Pressure Mean (mm Hg) 112 Source Monitor Position Sitting Blood Pressure Location Right Arm Pain Scale: 0-10 Numeric Is Patient Pain Free? Yes Yes Wound Care Nurse 3 #23 RLE Lat -Ulcer Cleansing SOAPY WATER -Foul Odor after Cleansing No -Primary Dressing Applied Other Other -Other Dressing UNNA BOOT unna boot -Other Covering DRSG PER M YOLI RN Left -Compression Wrap Isreal Wrap Right -Multi-Layered Wrap Application Unna Boot - Unna Boot - Right ($) Right ($) -Compression Wrap Unna Boot ($) ( Unna Boot ($) ( single) single) Treatment Response Procedure Tolerated Well WC - Visit Discharge Discharge Condition Stable Stable Ambulatory Status Ambulatory Ambulatory Transportation [facility] Facility Type Home Health Wound debrided: Right lower extremity ulcer Laterality: Right Type of Debridement: Excisional debridement Anesthesia Used: 5% Lidocaine Gel Depth: in the subcutaneous layer Percentage of wound debrided: 100 Instrument Used: 5mm curette Tissue Removed: Slough and devitalized tissue Severity: Fat Layer Exposed Amount of bleeding with debridement: Mild Bleeding Controlled with: Pressure Patient tolerated procedure well Assessment/Plan Assessment: Right lower extremity venous leg ulcer. Chronic venous stasis dermatitis. Chronic bilateral lymphedema Plan: Large area of erythema and warmth consistent with cellulitis, smaller wound area which was debrided today subcutaneously. For her wound care she will continue silver cell and Dulce boot. Change on Wednesday and follow-up in 1 week with me. Patient was started empirically on doxycycline. Elevate lower extremity when seated and in bed. Increase protein intake as well. Exercise as tolerated. Her questions were answered and she was advised to call with any further questions or concerns. This note was generated with [employer]ation software. It may contain incorrect words, spelling, and punctuation that were not noted in checking the note before signing. [id number]: [id number] [place] subq tissue 20 sq cm/<
[2020-10-15 11:18] VITALS: BP 189/77; PULSE 89; TEMP 36.2; BMI 73.2
[2020-10-17 14:05] VITALS: BMI 73.2
--- NOTE | 2020-10-17 16:13 | PCM.WC.PN ---
(1) Ulcer of right lower extremity with fat layer exposed Status: Acute Code(s): L97.912 - Non-pressure chronic ulcer of unspecified part of right lower leg with fat layer exposed Comment: Right lower extremity (2) Anxiety and depression Status: Chronic Code(s): F41.9 - Anxiety disorder, unspecified; F32.9 - Major depressive disorder, single episode, unspecified (3) Bilateral lower extremity edema Status: Chronic Code(s): R60.0 - Localized edema (4) Bipolar 1 disorder Status: Chronic Code(s): F31.9 - Bipolar disorder, unspecified (5) CKD (chronic kidney disease), stage III Status: Chronic Code(s): N18.3 - Chronic kidney disease, stage 3 (moderate) (6) GERD (gastroesophageal reflux disease) Status: Chronic Code(s): K21.9 - Gastro-esophageal reflux disease without esophagitis (7) HLD (hyperlipidemia) Status: Chronic Qualifiers: Code(s): E78.5 - Hyperlipidemia, unspecified (8) HTN (hypertension) Status: Chronic Qualifiers: Code(s): I10 - Essential (primary) hypertension (9) Morbid obesity Status: Chronic Code(s): E66.01 - Morbid (severe) obesity due to excess calories (10) Venous stasis dermatitis Status: Chronic Qualifiers: Code(s): I87.2 - Venous insufficiency (chronic) (peripheral) Type of Wound Date of Service: 10/17/20 Chief Complaint: Swelling, edema, and lymphedema of the lower extremities bilaterally, with ulceration present x3 weeks to the right lower extremity. History of Wound: This is a 50-year-old morbidly obese white female with severe swelling, edema, and lymphedema in her lower extremities bilaterally. She has had multiple episodes of venous stasis dermatitis and ulcerations in her lower extremities, more predominantly in the right lower extremity. She denies a history of thrombophlebitis. Her morbid obesity precludes significant ambulation. She requires a walker for assistance. She spends most of her day in an idle sitting position. She claims to sleep on a flat mattress at night, often with her legs elevated. She presented with profound venous stasis dermatitis in the distal right lower extremity, which she says had been present for approximately 3 months and also an ulceration to the right lower extremity as well which has been present for 3 weeks. She notes small amount of clear fluid draining from her ulcer. She followed up with her primary care provider who referred her to the wound healing center for further evaluation and care. At home she uses lymphedema pumps at 40 mmHg 3 times a day for 30 minutes and wraps her lower extremities with Isreal wraps when she is not utilizing these. She has not been utilizing anything over top of the open ulcer. Past medical, family, and social history reviewed and not pertinent to the current visit and all other systems reviewed and negative with exception of those listed above. Progress of Wound: The patient's wound on her right lower extremity has healed, however her cellulitis remains. It has improved slightly since starting the doxycycline. However her cultures were reviewed and showed 3+ Enterobacter, actinobacter, and rare MRSA, these are sensitive to levofloxacin and therefore patient will be started on a course of Levaquin. Wounds are healed, however cellulitis remains, she will follow-up in 1 week for reevaluation. - Physical Exam Vital Signs Temp Pulse Resp BP 97.2 F L 89 24 H 189/77 H 10/15/20 11:18 10/15/20 11:18 10/10/20 13:19 10/15/20 11:18 General: Alert, Oriented x3, Cooperative, No apparent distress HEENT: Atraumatic Oral: Moist Mucosa Neck: Supple Lungs: Clear to auscultation Cardiovascular: Regular rate Abdomen: Soft, Non Tender, Obese Extremities: No clubbing, No cyanosis, Edema - Severe edema bilateral lower extremities with pitting edema to right lower extremity 3+. Right lower extremity warm and cellulitic, however improved from the week prior Skin: Ulcer/ Wound - Healed Wound Measurements and Assessment WC - Nurse 1 - General Ulcer Measurement Start: 10/08/20 14:06 Freq: Status: Active Protocol: Activity Type Activity Date Activity User E-Sign Co-Sign Detail Recorded Client Recorded Date Recorded By Document 10/17/20 14:05 AMELIA [id number] 10/17/20 14:14 KR 10/17/20 14:05 Wound Center Nurse 1 [Ulcer Assessment] #23 RLE Lat -Current Size (cm) - Length 0.1 -Current Size (cm) - Width 0.1 -Current Size (cm) - Depth 0.1 -Total Square Cm 0.01 -Wound Margin Distinct, Outline Attached -Granulation Amt None Present (0 %) -Granulation Quality Red -Slough/Fibrin No -Texture (Martha-wound Skin Appearance) Assessed, Scarring -Moisture (Martha-wound Skin Appearance Assessed,Dry/ ) Scaly -Color (Martha-wound Skin Appearance) No Abnormality, Assessed -Temperature (Martha-wound Skin No Abnormality Appearance) (Pt Warm) -Tenderness on Palpation (Martha-wound No Skin Appearance) -Ulcer Cleansing soap and water [Edema Assessment] -Right Calf (cm) 77 -Right Ankle (cm) 31 WC - Nurse 2 - General Ulcer CM Notes Start: 10/08/20 14:06 Freq: Status: Active Protocol: Activity Type Activity Date Activity User E-Sign Co-Sign Detail Recorded Client Recorded Date Recorded By Document 10/17/20 14:30 MW [id number] 10/17/20 14:34 MW 10/17/20 14:30 Wound Center Nurse 2 [Procedure/Treatment] #23 RLE Lat -Time 14:32 -Correct Patient Yes -Correct Side, Site, Position Yes -Correct Procedure Yes -Procedure Performed No -Post Debridement (cm) - Length 0 -Post Debridement (cm) - Width 0 -Post Debridement (cm) - Depth 0 -Total Square (Post) (cm) 0 -Wound/Ulcer Outcome Healed- Epithelialized [See Physician Procedure note for Specifics] Pain Scale: 0-10 Numeric [Pain] -Is Patient Pain Free? Yes - Nurse 3 - General Ulcer D/C NN Start: 10/08/20 14:06 Freq: Status: Active Protocol: Activity Type Activity Date Activity User E-Sign Co-Sign Detail Recorded Client Recorded Date Recorded By Document 10/15/20 11:19 KR [id number] 10/15/20 11:20 KR Document 10/17/20 14:51 DL [id number] 10/17/20 14:53 DL 10/15/20 10/17/20 11:19 14:51 Wound Care Nurse 3 [Wound Dressing] #23 RLE Lat -Ulcer Cleansing soap and water [Compression Applied] Left -Multi-Layered Wrap Application Unna Boot - Right ($) Right -Multi-Layered Wrap Application Unna Boot - Right ($) -Compression Wrap Unna Boot ($) ( single) [Post Procedure Tolerated] -Treatment Response Procedure Tolerated Well Pain Scale: 0-10 Numeric [Pain] -Is Patient Pain Free? Yes Yes WC - Visit Discharge [Visit Discharge Information] -Discharge Condition Stable Stable -Ambulatory Status Walker Ambulatory, Walker -Transportation Private Auto -Notes: Nurse Visit Neurological: Neuro grossly intact Psych/Mental Status: Normal Affect, Appropriate, Alert and oriented to time, place, person, mood and affect Debridement Note Post-Debridement Measurements/Treatment FELICITY - Nurse 2 - General Ulcer CM Notes Start: 10/08/20 14:06 Freq: Status: Active Protocol: Activity Type Activity Date Activity User E-Sign Co-Sign Detail Recorded Client Recorded Date Recorded By Document 10/10/20 14:34 MW [id number] 10/10/20 14:36 MW Document 10/17/20 14:30 MW [id number] 10/17/20 14:34 MW 10/10/20 10/17/20 14:34 14:30 Wound Center Nurse 2 #23 RLE Lat -Time 14:36 14:32 -Correct Patient Yes Yes -Correct Side, Site, Position Yes Yes -Correct Procedure Yes Yes -Procedure Performed Yes No -Type of Procedure Debridement -Clinical Debridement Subcutaneous -Tissue Removed Subcutaneous -Post Debridement (cm) - Length 0.5 0 -Post Debridement (cm) - Width 2.0 0 -Post Debridement (cm) - Depth 0.1 0 -Total Square (Post) (cm) 1.00 0 -Area of Debridement (cm) - Length 0.5 -Area of Debridement (cm) - Width 2.0 -Total Square (Area) (cm) 1.00 -Tunneling No -Undermining/Tunneling No -Circular Undermining No -Wound/Ulcer Outcome Not Healed Healed- Epithelialized -Ulcer Cleansing Rinsed/ Irrigated with Saline -Foul Odor after Cleansing No -Bioengineered Tissue No -Bleeding Controlled with Pressure -Offloading No -Treatment Response Procedure Tolerated Well -Debridement - Subq, 1st 20sq cm Yes Pain Scale: 0-10 Numeric Is Patient Pain Free? Yes Yes - Nurse 3 - General Ulcer D/C NN Start: 10/08/20 14:06 Freq: Status: Active Protocol: Activity Type Activity Date Activity User E-Sign Co-Sign Detail Recorded Client Recorded Date Recorded By Document 10/08/20 14:06 [facility] [id number] 10/08/20 14:07 BM Document 10/10/20 14:54 [facility] [id number] 10/10/20 14:54 [facility] Document 10/15/20 11:19 KR [id number] 10/15/20 11:20 KR Document 10/17/20 14:51 DL [id number] 10/17/20 14:53 DL 10/08/20 10/10/20 10/15/20 14:06 14:54 11:19 Vital Signs Temperature (97.8 F-99.1 F) 96.8 F L Temperature Source Temporal Pulse Rate (60-100) 62 Pulse Location Monitor Respiratory Rate (12-18) 20 H Respiratory rate source Observation Oxygen Delivery Method Room Air Blood Pressure (90/60-120/80) 175/81 H Blood Pressure Mean (mm Hg) 112 Source Monitor Position Sitting Blood Pressure Location Right Arm Pain Scale: 0-10 Numeric Is Patient Pain Free? Yes Yes Yes Wound Care Nurse 3 #23 RLE Lat -Ulcer Cleansing SOAPY WATER soap and water -Foul Odor after Cleansing No -Primary Dressing Applied Other Other -Other Dressing UNNA BOOT unna boot -Other Covering DRSG PER M YOLI RN Left -Multi-Layered Wrap Application -Compression Wrap Isreal Wrap Right -Multi-Layered Wrap Application Unna Boot - Unna Boot - Unna Boot - Right ($) Right ($) Right ($) -Compression Wrap Unna Boot ($) ( Unna Boot ($) ( Unna Boot ($) ( single) single) single) Treatment Response Procedure Tolerated Well WC - Visit Discharge Discharge Condition Stable Stable Stable Ambulatory Status Ambulatory Ambulatory Walker Transportation [facility] Private Auto Notes: Nurse Visit Facility Type Home Health 10/17/20 14:51 Vital Signs Temperature (97.8 F-99.1 F) Temperature Source Pulse Rate (60-100) Pulse Location Respiratory Rate (12-18) Respiratory rate source Oxygen Delivery Method Blood Pressure (90/60-120/80) Blood Pressure Mean (mm Hg) Source Position Blood Pressure Location Pain Scale: 0-10 Numeric Is Patient Pain Free? Yes Wound Care Nurse 3 #23 RLE Lat -Ulcer Cleansing -Foul Odor after Cleansing -Primary Dressing Applied -Other Dressing -Other Covering Left -Multi-Layered Wrap Application Unna Boot - Right ($) -Compression Wrap Right -Multi-Layered Wrap Application -Compression Wrap Treatment Response Procedure Tolerated Well WC - Visit Discharge Discharge Condition Stable Ambulatory Status Ambulatory, Walker Transportation Notes: Facility Type Assessment/Plan Active Problems GERD (gastroesophageal reflux disease) (Chronic) Venous stasis dermatitis (Chronic) Bipolar 1 disorder (Chronic) Ulcer of right lower extremity with fat layer exposed (Acute) Right lower extremity Morbid obesity (Chronic) Bilateral lower extremity edema (Chronic) HTN (hypertension) (Chronic) HLD (hyperlipidemia) (Chronic) Anxiety and depression (Chronic) CKD (chronic kidney disease), stage III (Chronic) Assessment: Right lower extremity venous leg ulcer. Chronic venous stasis dermatitis. Chronic bilateral lymphedema Plan: Large area of erythema and warmth consistent with cellulitis, wound has healed and therefore no debridement indicated, reviewed her wound cultures and will switch antibiotic to Levaquin. Continue with Dulce boot. Change on Wednesday and follow-up in 1 week with me. Elevate lower extremity when seated and in bed. Increase protein intake as well. Exercise as tolerated. Her questions were answered and she was advised to call with any further questions or concerns. This note was generated with [facility] dictation software. It may contain incorrect words, spelling, and punctuation that were not noted in checking the note before signing. Office Visits / Consults: [id number] OV [id number] Est
[2020-10-21 14:32] VITALS: BP 143/62; PULSE 73; TEMP 36.1; BMI 73.2
[2020-10-24 13:15] VITALS: BP 175/74; PULSE 60; RESP 22; TEMP 36.9; BMI 73.2
--- NOTE | 2020-10-24 14:08 | PCM.WC.PN ---
(1) Ulcer of right lower extremity with fat layer exposed Status: Acute Code(s): L97.912 - Non-pressure chronic ulcer of unspecified part of right lower leg with fat layer exposed Comment: Right lower extremity (2) Anxiety and depression Status: Chronic Code(s): F41.9 - Anxiety disorder, unspecified; F32.9 - Major depressive disorder, single episode, unspecified (3) Bilateral lower extremity edema Status: Chronic Code(s): R60.0 - Localized edema (4) Bipolar 1 disorder Status: Chronic Code(s): F31.9 - Bipolar disorder, unspecified (5) CKD (chronic kidney disease), stage III Status: Chronic Code(s): N18.3 - Chronic kidney disease, stage 3 (moderate) (6) GERD (gastroesophageal reflux disease) Status: Chronic Code(s): K21.9 - Gastro-esophageal reflux disease without esophagitis (7) HLD (hyperlipidemia) Status: Chronic Qualifiers: Code(s): E78.5 - Hyperlipidemia, unspecified (8) HTN (hypertension) Status: Chronic Qualifiers: Code(s): I10 - Essential (primary) hypertension (9) Morbid obesity Status: Chronic Code(s): E66.01 - Morbid (severe) obesity due to excess calories (10) Venous stasis dermatitis Status: Chronic Qualifiers: Code(s): I87.2 - Venous insufficiency (chronic) (peripheral) Type of Wound Date of Service: 10/24/20 Chief Complaint: Swelling, edema, and lymphedema of the lower extremities bilaterally, with ulceration present x3 weeks to the right lower extremity. History of Wound: This is a 50-year-old morbidly obese white female with severe swelling, edema, and lymphedema in her lower extremities bilaterally. She has had multiple episodes of venous stasis dermatitis and ulcerations in her lower extremities, more predominantly in the right lower extremity. She denies a history of thrombophlebitis. Her morbid obesity precludes significant ambulation. She requires a walker for assistance. She spends most of her day in an idle sitting position. She claims to sleep on a flat mattress at night, often with her legs elevated. She presented with profound venous stasis dermatitis in the distal right lower extremity, which she says had been present for approximately 3 months and also an ulceration to the right lower extremity as well which has been present for 3 weeks. She notes small amount of clear fluid draining from her ulcer. She followed up with her primary care provider who referred her to the wound healing center for further evaluation and care. At home she uses lymphedema pumps at 40 mmHg 3 times a day for 30 minutes and wraps her lower extremities with Isreal wraps when she is not utilizing these. She has not been utilizing anything over top of the open ulcer. Past medical, family, and social history reviewed and not pertinent to the current visit and all other systems reviewed and negative with exception of those listed above. Progress of Wound: The patient's wound on her right lower extremity has healed, her cellulitis has resolved as well with the treatment of doxycycline and Levaquin.. Most recent cultures were reviewed and showed 3+ Enterobacter, actinobacter, and rare MRSA, these are sensitive to levofloxacin. She denies any systemic signs of infection. She denies any acute concerns. Past medical, family, and social history reviewed and not pertinent to the current visit and all other systems reviewed and negative with exception of those listed above. - Physical Exam Vital Signs Temp Pulse Resp BP 98.4 F 60 22 H 175/74 H 10/24/20 13:15 10/24/20 13:15 10/24/20 13:15 10/24/20 13:15 General: Alert, Oriented x3, Cooperative, No apparent distress HEENT: Atraumatic Oral: Moist Mucosa Neck: Supple Lungs: Clear to auscultation, Normal air movement Cardiovascular: Regular rate Abdomen: Soft, Non Tender Extremities: No clubbing, No cyanosis, Edema - Tonic lymphedema to bilateral lower extremities with venous stasis dermatitis present, Peripheral Pulses Normal Skin: Ulcer/ Wound - All wounds are healed without any signs of infection or cellulitis at this time Wound Measurements and Assessment WC - Nurse 1 - General Ulcer Measurement Start: 10/08/20 14:06 Freq: Status: Discharge Protocol: Activity Type Activity Date Activity User E-Sign Co-Sign Detail Recorded Client Recorded Date Recorded By Document 10/24/20 13:15 DL [id number] 10/24/20 13:25 DL Edit Status 10/24/20 13:52 BKG DAEMON Active=>Discharge [id number] 10/24/20 13:52 FERNANDO DAEMON 10/24/20 13:15 Wound Center Nurse 1 [Edema Assessment] -Right Calf (cm) 69 -Right Ankle (cm) 30.5 - Nurse 2 - General Ulcer CM Notes Start: 10/08/20 14:06 Freq: Status: Discharge Protocol: Activity Type Activity Date Activity User E-Sign Co-Sign Detail Recorded Client Recorded Date Recorded By Document 10/24/20 13:33 MW [id number] 10/24/20 13:35 MW Edit Status 10/24/20 13:52 BKG DAEMON [facility] 10/24/[facility] 13:52 BKG DAEMON 10/24/20 13:33 Pain Scale: 0-10 Numeric [Pain] -Is Patient Pain Free? Yes - Nurse 3 - General Ulcer D/C NN Start: 10/08/20 14:06 Freq: Status: Discharge Protocol: Activity Type Activity Date Activity User E-Sign Co-Sign Detail Recorded Client Recorded Date Recorded By Document 10/21/20 14:33 KR [id number] 10/21/20 14:34 KR Edit Status 10/24/20 13:52 BKG DAEMON Active=>Discharge [place] [id number] 10/24/20 13:52 BKG DAEMON 10/21/20 14:33 Wound Care Nurse 3 [Compression Applied] Right -Multi-Layered Wrap Application Unna Boot - Right ($) Pain Scale: 0-10 Numeric [Pain] -Is Patient Pain Free? Yes - Visit Discharge [Visit Discharge Information] -Discharge Condition Stable -Ambulatory Status Ambulatory,Cane -Transportation Private Auto Neurological: Neuro grossly intact Psych/Mental Status: Normal Affect, Appropriate, Alert and oriented to time, place, person, mood and affect Debridement Note Post-Debridement Measurements/Treatment - Nurse 2 - General Ulcer CM Notes Start: 10/08/20 14:06 Freq: Status: Discharge Protocol: Activity Type Activity Date Activity User E-Sign Co-Sign Detail Recorded Client Recorded Date Recorded By Document 10/10/20 14:34 MW [id number] 10/10/20 14:36 MW Document 10/17/20 14:30 MW [id number] 10/17/20 14:34 MW Document 10/24/20 13:33 MW [id number] 10/24/20 13:35 MW 10/10/20 10/17/20 10/24/20 14:34 14:30 13:33 Wound Center Nurse 2 #23 RLE Lat -Time 14:36 14:32 -Correct Patient Yes Yes -Correct Side, Site, Position Yes Yes -Correct Procedure Yes Yes -Procedure Performed Yes No -Type of Procedure Debridement -Clinical Debridement Subcutaneous -Tissue Removed Subcutaneous -Post Debridement (cm) - Length 0.5 0 -Post Debridement (cm) - Width 2.0 0 -Post Debridement (cm) - Depth 0.1 0 -Total Square (Post) (cm) 1.00 0 -Area of Debridement (cm) - Length 0.5 -Area of Debridement (cm) - Width 2.0 -Total Square (Area) (cm) 1.00 -Tunneling No -Undermining/Tunneling No -Circular Undermining No -Wound/Ulcer Outcome Not Healed Healed- Epithelialized -Ulcer Cleansing Rinsed/ Irrigated with Saline -Foul Odor after Cleansing No -Bioengineered Tissue No -Bleeding Controlled with Pressure -Offloading No -Treatment Response Procedure Tolerated Well -Debridement - Subq, 1st 20sq cm Yes Pain Scale: 0-10 Numeric Is Patient Pain Free? Yes Yes Yes - Nurse 3 - General Ulcer D/C NN Start: 10/08/20 14:06 Freq: Status: Discharge Protocol: Activity Type Activity Date Activity User E-Sign Co-Sign Detail Recorded Client Recorded Date Recorded By Document 10/08/20 14:06 [facility] [id number] 10/08/20 14:07 [facility] Document 10/10/20 14:54 [facility] [id number] 10/10/20 14:54 [facility] Document 10/15/20 11:19 KR [id number] 10/15/20 11:20 KR Document 10/17/20 14:51 DL [id number] 10/17/20 14:53 DL Document 10/21/20 14:33 KR [id number] 10/21/20 14:34 KR 10/08/20 10/10/20 10/15/20 14:06 14:54 11:19 Vital Signs Temperature (97.8 F-99.1 F) 96.8 F L Temperature Source Temporal Pulse Rate (60-100) 62 Pulse Location Monitor Respiratory Rate (12-18) 20 H Respiratory rate source Observation Oxygen Delivery Method Room Air Blood Pressure (90/60-120/80) 175/81 H Blood Pressure Mean (mm Hg) 112 Source Monitor Position Sitting Blood Pressure Location Right Arm Pain Scale: 0-10 Numeric Is Patient Pain Free? Yes Yes Yes Wound Care Nurse 3 #23 RLE Lat -Ulcer Cleansing SOAPY WATER soap and water -Foul Odor after Cleansing No -Primary Dressing Applied Other Other -Other Dressing UNNA BOOT unna boot -Other Covering DRSG PER M YOLI BONILLA Left -Multi-Layered Wrap Application -Compression Wrap Isreal Wrap Right -Multi-Layered Wrap Application Unna Boot - Unna Boot - Unna Boot - Right ($) Right ($) Right ($) -Compression Wrap Unna Boot ($) ( Unna Boot ($) ( Unna Boot ($) ( single) single) single) Treatment Response Procedure Tolerated Well WC - Visit Discharge Discharge Condition Stable Stable Stable Ambulatory Status Ambulatory Ambulatory Walker Transportation [place] Notes: Nurse Visit Facility Type Home Health 10/17/20 10/21/20 14:51 14:33 Vital Signs Temperature (97.8 F-99.1 F) Temperature Source Pulse Rate (60-100) Pulse Location Respiratory Rate (12-18) Respiratory rate source Oxygen Delivery Method Blood Pressure (90/60-120/80) Blood Pressure Mean (mm Hg) Source Position Blood Pressure Location Pain Scale: 0-10 Numeric Is Patient Pain Free? Yes Yes Wound Care Nurse 3 #23 RLE Lat -Ulcer Cleansing -Foul Odor after Cleansing -Primary Dressing Applied -Other Dressing -Other Covering Left -Multi-Layered Wrap Application Unna Boot - Right ($) -Compression Wrap Right -Multi-Layered Wrap Application Unna Boot - Right ($) -Compression Wrap Treatment Response Procedure Tolerated Well WC - Visit Discharge Discharge Condition Stable Stable Ambulatory Status Ambulatory, Ambulatory,Cane Walker Transportation Private Auto Notes: Facility Type No debridement was completed today Assessment/Plan Active Problems GERD (gastroesophageal reflux disease) (Chronic) Venous stasis dermatitis (Chronic) Bipolar 1 disorder (Chronic) Ulcer of right lower extremity with fat layer exposed (Acute) Right lower extremity Morbid obesity (Chronic) Bilateral lower extremity edema (Chronic) HTN (hypertension) (Chronic) HLD (hyperlipidemia) (Chronic) Anxiety and depression (Chronic) CKD (chronic kidney disease), stage III (Chronic) Assessment: Right lower extremity venous leg ulcer. Chronic venous stasis dermatitis. Chronic bilateral lymphedema Plan: The patient was seen and evaluated in the wound healing center today and updated on the plan of care. Her wounds have healed and her cellulitis is resolved. Instructed to take the entire course of Levaquin however. Elevate lower extremity when seated and in bed. Increase protein intake as well. Exercise as tolerated. Discussed in detail with patient that she needs to be consistent with her lymphedema pumps at home 3 times a day and wearing her Isreal wraps in between. For her chronic venous stasis dermatitis she may consider the use of hydrocortisone cream as well. Her questions were answered and she was advised to call with any further questions or concerns. This note was generated with [employer] dictation software. It may contain incorrect words, spelling, and punctuation that were not noted in checking the note before signing. 25 minutes were spent today on educating patient on plan of care and physically examining the patient. Office Visits / Consults: [id number] OV L3 Est
--- NOTE | 2020-11-05 09:42 | WC ---
PATIENT called in 11/05/20 complaining of increase redness and warmth to lower leg. She is scheduled as a new patient for 11/07/20 and has refills on Levaquin and Doxycycline. She wants to know if she should start taking them before seen. Shawn Moulton notified and he advised patient to see urgent care for this if the redness is bad enough. He cannot advise patient to start any ATB without seeing the patient. The patient was notified and voiced understanding to report to Urgent care before her wound visit if it need immediate attention.
== END 2020-10-24 13:52 | disposition home or self-care (01) ==
LOC: WC 13:00
PROVIDERS: PCP Student in an Organized Health Care Education/Training Program; Referring Provider Student in an Organized Health Care Education/Training Program; Visit Provider Nurse Practitioner Family
DX: I87.2 Venous insufficiency (chronic) (peripheral) (principal); I12.9 Hypertensive chronic kidney disease with stage 1 through stage 4 chronic kidney disease, or unspecified chronic kidney disease; N18.30 Chronic kidney disease, stage 3 unspecified; K21.9 Gastro-esophageal reflux disease without esophagitis; E78.5 Hyperlipidemia, unspecified; E66.01 Morbid (severe) obesity due to excess calories; L97.812 Non-pressure chronic ulcer of other part of right lower leg with fat layer exposed; I89.0 Lymphedema, not elsewhere classified; R60.0 Localized edema
CPT/HCPCS: 11042; 29580; 87070; 87075; 87077; 87186; 87205; 99213; G0463

== ENCOUNTER 2020-11-07 14:15 | Outpatient (RCR) | payer MEDICARE, MEDICAID, SELFPAY ==
[2020-11-07 14:17] VITALS: BP 125/74; PULSE 60; RESP 20; TEMP 35.7; BMI 73.2
== END 2020-11-07 15:25 | disposition home or self-care (01) ==
LOC: WC 14:15
PROVIDERS: PCP Student in an Organized Health Care Education/Training Program; Visit Provider Nurse Practitioner Family
DX: Z09 Encounter for follow-up examination after completed treatment for conditions other than malignant neoplasm (principal)
CPT/HCPCS: 99211; G0463

== ENCOUNTER → 2023-12-20 | Outpatient (REF) | payer MEDICARE, MEDICAID, SELFPAY ==
[2023-12-20 08:24] LABS: Absolute Lymphocyte Count 2.01 X10^3/uL (0.83-4.51); Absolute Neutrophil Count 4.2 X10^3/uL (2.0-7.7); Basophil# 0.12 X10^3/uL; Basophil% 1.6 % (0-1); Eosinophil# 0.29 X10^3/uL; Eosinophils% 3.8 % (0-5); Hematocrit 23.6 % (37-47); Hemoglobin 7.2 g/dL (12.0-15.0); Lymphocyte # 2.01 X10^3/ul (0.83-4.51); Lymphocyte % 26.7 % (19-41); Mean Corp Hgb Conc 30.5 g/dL (32-36); Mean Corpuscular Hgb 30.1 pg (27.0-32.0); Mean Corpuscular Volume 98.7 fL (81-99); Mean Platelet Vol. 10.3 fl (6.2-12.0); Monocyte# 0.68 X10^3/uL; NRBC Flagged by Analyzer 0 % (0-5); Neutrophil # 4.22 X10^3/uL (2.7-7.7); Platelet Count 468 K/mm3 (150-450); RBC Distribution Width CV 16.7 % (11.6-14.6); RBC Distribution Width SD 59.1 fl (35.1-43.9); Red Blood Count 2.39 M/mm3 (4.2-5.4); White Blood Count 7.5 K/mm3 (4.4-11.0)
[2023-12-20 08:45] LABS: Vitamin B12 160 pg/mL (211-911); Vitamin D,25 Hydroxy 32.6 ng/mL
[2023-12-20 09:28] LABS: AST(SGOT) 17 U/L (15-37); Alanine Aminotransfer ALT/SGPT 16 U/L (13-56); Albumin, Serum 2.4 g/dL (3.2-5.0); Alkaline Phosphatase 140 U/L (45-117); Anion Gap 5 (5-15); BUN 16 mg/dL (7-18); BUN/Creat Ratio 26.4 RATIO (10-20); Bilirubin, Direct 0.11 mg/dL (0.00-0.30); Calcium,Total 8.6 mg/dL (8.5-10.1); Chloride 112 mmol/L (98-107); Cholesterol 101 mg/dL (200); Creatinine, Serum 0.61 mg/dL (0.55-1.02); EST Glomerular Filtration Rate 110 mL/min (>60); Est Glom Filt Rate - Afr Amer 133 mL/min (>60); Globulin 3.5 g/dL (2.2-4.2); Glucose 91 mg/dL (74-106); High Density Lipoprotein 37 mg/dL; Magnesium 2.2 mg/dL (1.6-2.6); Potassium 3.7 mmol/L (3.5-5.1); Protein, Total 5.9 g/dL (6.4-8.2); Sodium Level 142 mmol/L (136-145); Thyroid Stim Hormone (TSH) 1.58 uIU/mL (0.358-3.74); Triglycerides 62 mg/dL; Very Low Density Lipoprotein 12 mg/dL (5-40)
== END ==
LOC: OLS.SW 05:00
PROVIDERS: PCP Student in an Organized Health Care Education/Training Program; Visit Provider Internal Medicine
DX: Z02.2 Encounter for examination for admission to residential institution (principal); E03.9 Hypothyroidism, unspecified; G47.33 Obstructive sleep apnea (adult) (pediatric); I12.9 Hypertensive chronic kidney disease with stage 1 through stage 4 chronic kidney disease, or unspecified chronic kidney disease; N18.30 Chronic kidney disease, stage 3 unspecified
CPT/HCPCS: 36415; 80048; 80061; 80076; 82306; 82607; 83735; 84443; 85025

== ENCOUNTER → 2023-12-26 | Outpatient (REF) | payer MEDICARE, MEDICAID, SELFPAY ==
[2023-12-26 01:33] LABS: Absolute Lymphocyte Count 2.03 X10^3/uL (0.83-4.51); Absolute Neutrophil Count 3.8 X10^3/uL (2.0-7.7); Basophil% 1.4 % (0-1); Eosinophil# 0.39 X10^3/uL; Eosinophils% 5.6 % (0-5); Hematocrit 27.9 % (37-47); Hemoglobin 8.2 g/dL (12.0-15.0); Lymphocyte # 2.03 X10^3/ul (0.83-4.51); Lymphocyte % 29.2 % (19-41); Mean Corp Hgb Conc 29.4 g/dL (32-36); Mean Corpuscular Hgb 28.8 pg (27.0-32.0); Mean Corpuscular Volume 97.9 fL (81-99); Mean Platelet Vol. 10.3 fl (6.2-12.0); Monocyte# 0.59 X10^3/uL; Monocyte% 8.5 % (0-10); NRBC Flagged by Analyzer 0 % (0-5); Neutrophil # 3.79 X10^3/uL (2.7-7.7); Neutrophil % 54.4 % (47-70); Platelet Count 536 K/mm3 (150-450); RBC Distribution Width CV 17.8 % (11.6-14.6); RBC Distribution Width SD 63.7 fl (35.1-43.9); Red Blood Count 2.85 M/mm3 (4.2-5.4)
== END ==
LOC: OLS.SW 00:25
PROVIDERS: PCP Student in an Organized Health Care Education/Training Program; Referring Provider Internal Medicine; Visit Provider Internal Medicine
DX: I50.32 Chronic diastolic (congestive) heart failure (principal); S82.435D Nondisplaced oblique fracture of shaft of left fibula, subsequent encounter for closed fracture with routine healing; S82.252D Displaced comminuted fracture of shaft of left tibia, subsequent encounter for closed fracture with routine healing
CPT/HCPCS: 85025; 86140

== ENCOUNTER → 2023-12-27 | Outpatient (REF) | payer MEDICARE, MEDICAID, SELFPAY ==
[2023-12-27 09:17] LABS: Hematocrit 29.5 % (37-47); Hemoglobin 8.7 g/dL (12.0-15.0); Mean Corp Hgb Conc 29.5 g/dL (32-36); Mean Corpuscular Hgb 29.5 pg (27.0-32.0); Mean Platelet Vol. 10.5 fl (6.2-12.0); POSITIVE MORPHOLOGY YES; Platelet Count 500 K/mm3 (150-450); RBC Distribution Width CV 17.7 % (11.6-14.6); RBC Distribution Width SD 65.1 fl (35.1-43.9); Red Blood Count 2.95 M/mm3 (4.2-5.4)
[2023-12-27 09:18] LABS: Scan Indicated on CBC? Y/N YES- FLAGS NOTED
[2023-12-27 09:36] LABS: Anion Gap 4 (5-15); BUN 13 mg/dL (7-18); BUN/Creat Ratio 20.3 RATIO (10-20); Calcium,Total 8.5 mg/dL (8.5-10.1); Chloride 112 mmol/L (98-107); Creatinine, Serum 0.64 mg/dL (0.55-1.02); EST Glomerular Filtration Rate 103 mL/min (>60); Est Glom Filt Rate - Afr Amer 125 mL/min (>60); Glucose 95 mg/dL (74-106); Magnesium 2.5 mg/dL (1.6-2.6); Potassium 4.1 mmol/L (3.5-5.1); Sodium Level 140 mmol/L (136-145)
== END ==
LOC: OLS.SW 05:00
PROVIDERS: PCP Student in an Organized Health Care Education/Training Program; Visit Provider Internal Medicine
DX: E78.5 Hyperlipidemia, unspecified (principal); E03.9 Hypothyroidism, unspecified
CPT/HCPCS: 36415; 80048; 83735; 85027

== ENCOUNTER → 2024-01-03 | Outpatient (REF) | payer MEDICARE, MEDICAID, SELFPAY ==
[2024-01-03 08:49] LABS: Hematocrit 32.7 % (37-47); Hemoglobin 9.7 g/dL (12.0-15.0); Mean Corp Hgb Conc 29.7 g/dL (32-36); Mean Corpuscular Volume 97.6 fL (81-99); Platelet Count 364 K/mm3 (150-450); RBC Distribution Width CV 16.3 % (11.6-14.6); RBC Distribution Width SD 58.8 fl (35.1-43.9); Red Blood Count 3.35 M/mm3 (4.2-5.4); White Blood Count 5.1 K/mm3 (4.4-11.0)
[2024-01-03 08:54] LABS: Anion Gap 4 (5-15); BUN 18 mg/dL (7-18); BUN/Creat Ratio 30.9 RATIO (10-20); Calcium,Total 8.7 mg/dL (8.5-10.1); Chloride 112 mmol/L (98-107); Creatinine, Serum 0.58 mg/dL (0.55-1.02); EST Glomerular Filtration Rate 115 mL/min (>60); Est Glom Filt Rate - Afr Amer 139 mL/min (>60); Glucose 84 mg/dL (74-106); Magnesium 2.6 mg/dL (1.6-2.6); Potassium 3.9 mmol/L (3.5-5.1); Sodium Level 140 mmol/L (136-145)
== END ==
LOC: OLS.SW 04:00
PROVIDERS: PCP Student in an Organized Health Care Education/Training Program; Referring Provider Internal Medicine; Visit Provider Internal Medicine
DX: E78.5 Hyperlipidemia, unspecified (principal); E03.9 Hypothyroidism, unspecified
CPT/HCPCS: 36415; 80048; 83735; 85027

== ENCOUNTER → 2024-01-10 | Outpatient (REF) | payer MEDICARE, MEDICAID, SELFPAY ==
[2024-01-10 09:07] LABS: Hematocrit 33.5 % (37-47); Hemoglobin 9.6 g/dL (12.0-15.0); Mean Corp Hgb Conc 28.7 g/dL (32-36); Mean Corpuscular Hgb 28.9 pg (27.0-32.0); Mean Corpuscular Volume 100.9 fL (81-99); Mean Platelet Vol. 11.5 fl (6.2-12.0); Platelet Count 251 K/mm3 (150-450); RBC Distribution Width CV 15.4 % (11.6-14.6); RBC Distribution Width SD 57.7 fl (35.1-43.9); Red Blood Count 3.32 M/mm3 (4.2-5.4); White Blood Count 4.9 K/mm3 (4.4-11.0)
[2024-01-10 09:11] LABS: Anion Gap 7 (5-15); BUN 14 mg/dL (7-18); Calcium,Total 8.5 mg/dL (8.5-10.1); Chloride 111 mmol/L (98-107); Creatinine, Serum 0.56 mg/dL (0.55-1.02); EST Glomerular Filtration Rate 120 mL/min (>60); Est Glom Filt Rate - Afr Amer 146 mL/min (>60); Glucose 88 mg/dL (74-106); Magnesium 2.3 mg/dL (1.6-2.6); Sodium Level 142 mmol/L (136-145)
== END ==
LOC: OLS.SW 05:00
PROVIDERS: PCP Student in an Organized Health Care Education/Training Program; Visit Provider Internal Medicine
DX: E78.5 Hyperlipidemia, unspecified (principal); E03.9 Hypothyroidism, unspecified
CPT/HCPCS: 36415; 80048; 83735; 85027

== ENCOUNTER → 2024-01-17 04:00 | Outpatient (REF) | payer MEDICARE, MEDICAID, SELFPAY ==
[2024-01-17 09:18] LABS: Absolute Neutrophil Count 2.3 X10^3/uL (2.0-7.7); Basophil# 0.07 X10^3/uL; Basophil% 1.5 % (0-1); Eosinophil# 0.27 X10^3/uL; Eosinophils% 5.8 % (0-5); Hematocrit 31.4 % (37-47); Hemoglobin 9.5 g/dL (12.0-15.0); Lymphocyte % 36.5 % (19-41); Mean Corp Hgb Conc 30.3 g/dL (32-36); Mean Corpuscular Hgb 29.3 pg (27.0-32.0); Mean Corpuscular Volume 96.9 fL (81-99); Mean Platelet Vol. 11.3 fl (6.2-12.0); Monocyte# 0.35 X10^3/uL; Monocyte% 7.5 % (0-10); NRBC Flagged by Analyzer 0 % (0-5); Neutrophil # 2.26 X10^3/uL (2.7-7.7); Neutrophil % 48.5 % (47-70); Platelet Count 253 K/mm3 (150-450); RBC Distribution Width CV 14.6 % (11.6-14.6); RBC Distribution Width SD 51.5 fl (35.1-43.9); Red Blood Count 3.24 M/mm3 (4.2-5.4); White Blood Count 4.7 K/mm3 (4.4-11.0)
== END ==
LOC: OLS.SW 04:00
PROVIDERS: PCP Student in an Organized Health Care Education/Training Program; Referring Provider Internal Medicine; Visit Provider Internal Medicine
DX: E78.5 Hyperlipidemia, unspecified (principal); E03.9 Hypothyroidism, unspecified; S82.252D Displaced comminuted fracture of shaft of left tibia, subsequent encounter for closed fracture with routine healing; I11.0 Hypertensive heart disease with heart failure; I50.9 Heart failure, unspecified; I48.0 Paroxysmal atrial fibrillation
CPT/HCPCS: 36415; 85025; 86140

== ENCOUNTER 2024-03-11 17:30 | Emergency (ER) | payer MEDICARE, MEDICAID, SELFPAY ==
[2024-03-11] VITALS (30 sets, daily range): BP systolic 94–153; BP diastolic 52–93; PULSE 5–85; RESP 10–21; TEMP 35.8–36.3; O2SAT 90–98; BMI 54.6
--- NOTE | 2024-03-11 17:37 | ED.RN ---
[facility] HAS NOT CALLED REPORT. ATTEMPTED TO CALL, NO ANSWER.
--- NOTE | 2024-03-11 17:38 | EKG12_ITS ---
Test Reason : CP Blood Pressure : / mmHG Vent. Rate : 048 BPM Atrial Rate : 048 BPM P-R Int : 172 ms QRS Dur : 102 ms QT Int : 510 ms P-R-T Axes : 093 012 030 degrees QTc Int : 455 ms Sinus bradycardia Otherwise normal ECG Confirmed by KRISTEN JANE, ROMEO ([id number]), assistant editor JIMI CHEN ([id number]) on 03/13/2024 10:43:22 AM Referred By: DONAVON/DEXTER Confirmed By:ROMEO PETERSON MD
--- NOTE | 2024-03-11 17:38 | ED.RN ---
2ND ATTEMPT TO CONTACT [facility], NO ANSWER.
--- NOTE | 2024-03-11 17:43 | RAD_ITS ---
INDICATION: chest pain EXAMINATION/TECHNIQUE: X-RAY - XR Chest 1 View AP portable. 5:42 PM COMPARISON: 02/21/2018 FINDINGS: LINES/DEVICES: None. LUNGS: No consolidation. No pneumothorax. MEDIASTINUM: Unremarkable. CARDIAC SILHOUETTE: Not enlarged. BONES AND SOFT TISSUES: No acute abnormalities. RAD/Chest 1 View (Portable) IMPRESSION: No evidence of active intrathoracic disease. Electronically Signed: Dana Barksdale MD at 18:31 EDT ,
[2024-03-11 17:48] LABS: Absolute Lymphocyte Count 2.19 X10^3/uL (0.83-4.51); Absolute Neutrophil Count 4.6 X10^3/uL (2.0-7.7); Basophil# 0.07 X10^3/uL; Basophil% 0.9 % (0-1); Eosinophil# 0.37 X10^3/uL; Eosinophils% 4.8 % (0-5); Hemoglobin 11.8 g/dL (12.0-15.0); Lymphocyte # 2.19 X10^3/ul (0.83-4.51); Lymphocyte % 28.6 % (19-41); Mean Corp Hgb Conc 30.3 g/dL (32-36); Mean Corpuscular Hgb 27.8 pg (27.0-32.0); Mean Corpuscular Volume 91.8 fL (81-99); Mean Platelet Vol. 10.5 fl (6.2-12.0); Monocyte# 0.41 X10^3/uL; Monocyte% 5.4 % (0-10); NRBC Flagged by Analyzer 0 % (0-5); Neutrophil # 4.57 X10^3/uL (2.7-7.7); Neutrophil % 59.6 % (47-70); Platelet Count 347 K/mm3 (150-450); RBC Distribution Width CV 15.4 % (11.6-14.6); RBC Distribution Width SD 50.4 fl (35.1-43.9); Red Blood Count 4.25 M/mm3 (4.2-5.4); White Blood Count 7.7 K/mm3 (4.4-11.0)
[2024-03-11] MEDS: Nitroglycerin SL (ED/IMG/CATH) 0.4 MG TABLET SL ×3 (17:49→18:16)
[2024-03-11 18:06] LABS: Anion Gap 3 (5-15); BUN 16 mg/dL (7-18); Calcium,Total 9.6 mg/dL (8.5-10.1); Chloride 107 mmol/L (98-107); Creatinine, Serum 0.89 mg/dL (0.55-1.02); EST Glomerular Filtration Rate 71 mL/min (>60); Est Glom Filt Rate - Afr Amer 85 mL/min (>60); Estimated Creatinine Clearance 156.88 ml/min; Glucose 101 mg/dL (74-106); Potassium 3.9 mmol/L (3.5-5.1); Sodium Level 140 mmol/L (136-145); Troponin-I HS (w/2H Reflex) 3 pg/mL (3.0-54.0)
--- NOTE | 2024-03-11 18:14 | ED.VIS.CHEST ---
HPI History of Present Illness Chief Complaint: Chest Pain [facility] Medical History (Updated 10/10/20 @ 17:20 by Shawn Moulton NP, CLINICAL COUNSELOR-C) CKD (chronic kidney disease), stage III Anxiety and depression HLD (hyperlipidemia) HTN (hypertension) PAF (paroxysmal atrial fibrillation) Bilateral lower extremity edema Morbid obesity Sacroiliitis Home Medications ?Medication ?Instructions ?Recorded ?Last Taken ?Type furosemide 40 mg tablet 80 mg PO BID 08/01/14 03/20/19 History isosorbide mononitrate 60 mg 120 mg PO BID BP 08/01/14 03/20/19 History tablet,extended release 24 hr apixaban 5 mg tablet (Eliquis) 5 mg PO BID AFIB 05/07/17 03/20/19 History omeprazole 20 mg capsule,delayed 20 mg PO LUNCH GERD 05/07/17 03/20/19 History release sotalol 80 mg tablet (Betapace AF) 80 mg PO BID HEART 05/07/17 05/22/19 History cyclobenzaprine 10 mg tablet 10 mg PO TID PRN Spasms 07/13/17 03/20/19 History ondansetron 4 mg disintegrating 4 mg PO Q8H PRN PRN Nausea #10 tabs 10/07/17 03/17/19 Rx tablet amitriptyline 25 mg tablet 25 mg PO QHS PAIN 06/08/18 03/19/19 History dicyclomine 10 mg capsule 10 mg PO 4X/DAY IBS 06/08/18 03/20/19 History alprazolam 0.5 mg tablet 0.5 mg PO QHS PRN Anxiety 07/01/18 03/12/19 History albuterol sulfate 90 mcg/actuation 2 puff inhalation Q6H PRN PRN 11/10/18 03/20/19 History aerosol inhaler (Ventolin HFA) Wheezing amlodipine 10 mg tablet 10 mg PO QHS BP 11/10/18 03/20/19 History colestipol 1 gram tablet (Colestid) 3 g PO BID CHOLESTEROL 11/10/18 03/20/19 History meclizine 25 mg tablet 25 mg PO TID PRN 11/10/18 03/20/19 History nystatin 100,000 unit/gram topical 1 applic topical 4X/DAY PRN PRN 11/10/18 Unknown History powder (Nyamyc) SKIN sertraline 50 mg tablet 50 mg PO QHS DEPRESSION 11/10/18 03/19/19 History sumatriptan succinate 100 mg 100 mg PO .X1 PRN headache 11/10/18 Unknown History tablet (Imitrex) ergocalciferol (vitamin D2) 1,250 50,000 unit PO MOFR SUPPLEMENT 03/20/19 03/20/19 History mcg (50,000 unit) capsule (Vitamin D2) spironolactone 25 mg tablet 25 mg PO DAILY 03/20/19 03/20/19 History topiramate 100 mg tablet 100 mg PO TID 03/20/19 03/20/19 History acidophilus 25 million 1 tab PO BID #14 tabs 03/23/19 Unknown Rx cell-pectin, citrus 100 mg tablet clindamycin HCl 150 mg capsule 450 mg (3 x 150 mg) PO TID #63 caps 03/23/19 Unknown Rx oxycodone-acetaminophen 5 mg-325 1 tab PO Q6H PRN pain #30 tabs 03/25/19 Unknown Rx mg tablet (Percocet) ondansetron 4 mg disintegrating 4 mg PO Q8H PRN PRN Nausea 3 days 03/11/24 Unknown Rx tablet #10 tabs Allergy/AdvReac Type Severity Reaction Status Date / Time amoxicillin trihydrate (From Allergy Hives Verified 03/11/24 17:37 Augmentin) baclofen Allergy Unknown Verified 03/11/24 17:37 gabapentin Allergy Unknown Verified 03/11/24 17:37 Iodinated Contrast Media Allergy Anaphylaxis Verified 03/11/24 17:37 (CONTRASTS) potassium clavulanate (From Allergy Hives Verified 03/11/24 17:37 Augmentin) shrimp Allergy Unknown Verified 03/11/24 17:37 valerian AdvReac NEEDS Verified 03/11/24 17:37 FOLLOW-UP Family History (Updated 03/28/19 @ 13:45 by Idalia Andrews) Mother Hypertension Father Heart disease Surgical History (Updated 03/30/19 @ 19:[address] Ravi Brewster MD) History of hysterectomy History of appendectomy History of cholecystectomy History of gastric bypass Status post incision and drainage Social History (Updated 03/30/19 @ 13:05 by Danielle MESSINA PA-C) Smoking Status: Current every day smoker tobacco type: e-cigarettes EXAM Physical Exam Const Vital Signs: 03/11/24 17:31 03/11/24 17:39 03/11/24 17:42 Temperature 97.3 F L Temperature Source Temporal Pulse Rate 49 L Respiratory Rate 14 Respiratory Effort Normal Non-Labored Respiratory Pattern Blood Pressure 153/93 H Blood Pressure Mean 113 Pulse Ox 98 Oxygen Delivery Method Room Air Room Air 03/11/24 17:49 03/11/24 18:00 03/11/24 18:16 Temperature Temperature Source Pulse Rate 85 48 L 49 L Respiratory Rate Respiratory Effort Respiratory Pattern Blood Pressure 143/85 H 115/68 134/80 H Blood Pressure Mean Pulse Ox Oxygen Delivery Method 03/11/24 18:31 03/11/24 18:34 03/11/24 18:41 Temperature Temperature Source Pulse Rate 51 L 47 L Respiratory Rate 19 H 19 H Respiratory Effort Normal Non-Labored Respiratory Pattern Normal Blood Pressure 118/74 Blood Pressure Mean 88 Pulse Ox 96 95 Oxygen Delivery Method Room Air Room Air 03/11/24 18:45 03/11/24 19:00 03/11/24 20:00 Temperature Temperature Source Pulse Rate 49 L 51 L 50 L Respiratory Rate 18 20 H 14 Respiratory Effort Respiratory Pattern Blood Pressure 131/75 H 129/52 H Blood Pressure Mean 93 77 Pulse Ox 97 96 94 Oxygen Delivery Method Room Air Room Air Room Air 03/11/24 21:00 03/11/24 21:29 03/11/24 22:00 Temperature 96.5 F L Temperature Source Pulse Rate 53 L 5 L 50 L Respiratory Rate 14 15 13 Respiratory Effort Respiratory Pattern Blood Pressure 134/83 H 144/80 H 134/71 H Blood Pressure Mean 100 101 92 Pulse Ox 98 92 93 Oxygen Delivery Method Room Air Room Air 03/11/24 23:00 03/12/24 00:00 Temperature Temperature Source Pulse Rate 49 L 48 L Respiratory Rate 13 12 Respiratory Effort Respiratory Pattern Blood Pressure 139/88 H 144/62 H Blood Pressure Mean 105 89 Pulse Ox 94 94 Oxygen Delivery Method Room Air Room Air Heart Score History: Highly Suspicious ECG: Nonspecific Repolarization Age: >45 - <65 years Risk Factors: 1 or 2 Risk Factors Troponin: </= Normal Limit Score: 5 MDM MDM MDM Narrative Medical decision making narrative: HISTORY OF PRESENT ILLNESS: 53-year-old female presents with chest pain. Notes severe chest pain is midsternal radiating to her shoulder. Denies syncope. Denies focal weakness. Denies shortness of breath. Denies any recent cough fever chills. Denies any volume loss such as vomiting or diarrhea. Denies any bleeding diathesis. Notes compliance Eliquis. Patient denies sudden onset of pain, no tearing sensation, no migratory symptoms, no new numbness, weakness or loss of sensation. Patient denies family history or personal history of Connective tissue disorders (Marfan's Syndrome, Todd Danlos etc). the patient denies recent surgery in the last 4 weeks or immobilization in the last 3 days, denies previous diagnosis of DVT or PE, hemoptysis, unilateral leg swelling or malignancy with treatment the last 6 months or palliative. No estrogen use noted. REVIEW OF SYSTEMS: Pertinent positives: Chest pain Pertinent negatives: Focal weakness, new leg swelling, syncope, bleeding diathesis, hemoptysis, vomiting, diarrhea PHYSICAL EXAM: Nursing triage notes reviewed, Vital signs reviewed Constitutional: please see mdm HENT: MMM Eyes: Pupils equal round and reactive to light, Extraocular muscles intact Neck: No stridor, no JVD, full neck ROM Lungs: Clear to auscultation, No wheezing or rales. No increased work of breathing, no conversational dyspnea, no accessory muscle use, no nasal flaring. No respiratory distress noted Heart: Regular rate and rhythm, No murmurs, No rubs and No gallops, 2+ distal pulses (radial, femoral, posterior tibial) in all extremities Abdomen: Soft, there is no tenderness, rigidity, rebound or guarding, no obvious peritoneal signs, no palpable pulsatile abdominal masses, no auscultated abdominal bruit : No CVAT Extremities: Chronic swelling to bilateral lower extremities, lymphedema changes, no rashes, no calf tenderness Neuro: No focal neurological deficits, cranial nerves II through XII intact, 5/5 strength in all extremities. Intact sensation to light touch in all extremities, 2+ reflexes bilateral patella tendons. Normal gait. No ataxia. Skin: No rash or lesions noted MEDICAL DECISION MAKING: Chief Complaint: Chest pain External records reviewed: Cardiovascular studies reviewed: No recent echocardiograms, stress test or catheterizations noted Factors affecting care: Anemia, bipolar 1 disorder, PARAMJIT, GERD, CVA, lymphedema, morbid obesity, hypertension, hyperlipidemia, CKD 3, A-fib on Eliquis Social determinants of health: detention resident History obtained from others: EMS Consults: none MDM Narrative: Patient was initially hemodynamically stable, afebrile and nontoxic-appearing. Exam without focal cardiopulmonary maladies. No stigmata of VTE. No focal neurologic deficits I considered the following differential diagnosis: ACS, arrhythmia, anemia, electrolyte disturbance, pneumonia, pneumothorax, PE, dissection I considered obtaining a CTA of the chest rule out PE or dissection or without this test was not indicated given patient's lack of physical exam findings, stroke risk factors presence of Eliquis, compliant with Eliquis, low Wells score. ALL IMAGES (IF OBTAINED) HAVE BEEN PERSONALLY REVIEWED AND INTERPRETED BY MYSELF. EKG with sinus bradycardia, normal intervals, normal axis, no acute ischemia non-specific TWI noted in V2,V3 CBC with no leukocytosis, noted mild anemia however this is baseline, no thrombocytopenia CMP without evidence of acute kidney injury, significant electrolyte abnormality, anion gap, no evidence hepatobiliary pathology. High-sensitivity troponin is negative, no evidence of myocardial ischemia I have personally reviewed the patient's chest x-ray. Chest x-ray is unremarkable for pulmonary edema, pneumothorax, pneumonia or focal cardiopulmonary abnormality. High-sensitivity troponin is negative, no evidence of myocardial ischemia x2 The synthesis of the patient's history, physical exam, labs images suggest no acute life-limiting etiology. Her high-sensitivity troponins are negative x 2 which makes her risk of adverse cardiac event lower. However given concerning hx and TWI in anterior leads I offered the patient admission. Patient was alert and oriented x 3 and had capacity to make medical decisions and chose to be discharged and lieu of following up with her primary care physician for further outpatient testing. Risk and benefits of missed and delayed diagnosis were discussed. Understanding risk were voiced by the patient however she still chose to be discharged at this time. The patient and/or family, caregivers express understanding. The patient and/or family, caregivers agrees with the plan. Shared decision making: I will have a discussion with the patient and or visitors regarding risk/benefits of further testing or admission. They will be made aware of of the risk/benefits inherent in this decision they will be given the opportunity to voice understanding. Total critical care time today provided was at least 0 minutes. This excludes separately billable procedures. Critical care time (if documented) is secondary to the patient having high probability of clinically significant/life threatening deterioration in the patient's condition which required my urgent intervention. Impression: 1. Chest pain 2. History of bipolar disorder 3. History of high blood pressure Dispo: Discharge home This note was generated with [employer] dictation software. It may contain incorrect words, spelling, and punctuation that were not noted in review of the chart prior to signing. Lab Data Labs: Laboratory Results - last 24 hr 03/11/24 03/11/24 17:39 19:40 WBC 7.7 RBC 4.25 Hgb 11.8 L Hct 39.0 MCV 91.8 MCH 27.8 MCHC 30.3 L RDW Std Deviation 50.4 H RDW Coeff of Jaylen 15.4 H Plt Count 347 MPV 10.5 Immature Gran % (Auto) 0.700 Neut % (Auto) 59.6 Lymph % (Auto) 28.6 [place] % (Auto) 5.4 Eos % (Auto) 4.8 Baso % (Auto) 0.9 Absolute Neuts (auto) 4.6 Absolute Lymphs (auto) 2.19 Nucleated RBC % 0 Sodium 140 Potassium 3.9 Chloride 107 Carbon Dioxide 30.0 Anion Gap 3 L BUN 16 Creatinine 0.89 Estim Creat Clear Calc 156.88 Est GFR (MDRD) Af Amer 85 Est GFR (MDRD) Non-Af 71 BUN/Creatinine Ratio 18.0 Glucose 101 Calcium 9.6 Troponin I High Sens 3 4 Radiography Diagnostic Testing: Clinical Impression(s) from Imaging Studies Chest X-Ray 03/11/24 17:43 IMPRESSION: No evidence of active intrathoracic disease. Electronically Signed: Dana Barksdale MD at 18:31 EDT , Discharge Plan Triage Chief Complaint: Chest Pain ED Provider: Sean Emerson Dx/Rx/DC Orders Instructions: Chest Pain [facility] Prescriptions: New ondansetron 4 mg tablet,disintegrating 4 mg PO Q8H PRN PRN (Reason: Nausea) 3 Days Qty: 10 0RF No Action furosemide 40 MG tablet 80 mg PO BID isosorbide mononitrate 60 MG tablet 120 mg PO BID sotalol [Betapace AF] 80 MG tablet 80 mg PO BID omeprazole 20 MG capsule 20 mg PO LUNCH apixaban [Eliquis] 5 MG tablet 5 mg PO BID Patient Comments: STATES DR RICHTER NOT NEEDED TO STOP FOR INJECTION cyclobenzaprine 10 MG tablet 10 mg PO TID PRN (Reason: Spasms) ondansetron 4 MG tablet 4 mg PO Q8H PRN PRN (Reason: Nausea) Qty: 10 0RF amitriptyline 25 MG tablet 25 mg PO QHS dicyclomine 10 MG capsule 10 mg PO 4X/DAY Patient Comments: with meals and HS alprazolam 0.5 MG tablet 0.5 mg PO QHS PRN (Reason: Anxiety) sumatriptan succinate [Imitrex] 100 MG tablet 100 mg PO .X1 PRN meclizine 25 MG tablet 25 mg PO TID PRN amlodipine 10 MG tablet 10 mg PO QHS nystatin [Nyamyc] 1 APPLIC bottle 1 applic topical 4X/DAY PRN PRN (Reason: SKIN) albuterol sulfate [Ventolin HFA] 1 INHALER inhaler 2 puff inhalation Q6H PRN PRN (Reason: Wheezing) sertraline 50 MG tablet 50 mg PO QHS colestipol [Colestid] 1 GM tablet 3 g PO BID spironolactone 25 tablet 25 mg PO DAILY ergocalciferol (vitamin D2) [Vitamin D2] 50,000 UNIT capsule 50,000 unit PO MOFR topiramate 100 tablet 100 mg PO TID clindamycin HCl 150 MG capsule 450 mg PO TID Qty: 63 0RF acidophilus-pectin, citrus 1 TABLET tablet 1 tab PO BID Qty: 14 0RF oxycodone-acetaminophen [Percocet] 5-325 mg tablet 1 tab PO Q6H PRN (Reason: pain) Qty: 30 0RF Primary Care Provider: Ashwini Oconnell Referrals: Ashwini Oconnell MD [Primary Care Provider] - Activity Restrictions/Additional Instructions: Thank you for trusting us with your care today! Please take Tylenol (2 pills, 650 mg), ibuprofen (2 pills, 400 mg) every 6 hours as needed for pain and fever control. Please return to the emergency department if your symptoms change or worsen. Please follow with your primary care physician for further outpatient evaluation and management. Print Language: Hungarian Disposition Disposition: Home, Self Care
--- NOTE | 2024-03-11 19:25 | EKG12_ITS ---
Test Reason : REPEAT Blood Pressure : / mmHG Vent. Rate : 050 BPM Atrial Rate : 050 BPM P-R Int : 176 ms QRS Dur : 098 ms QT Int : 492 ms P-R-T Axes : 038 009 014 degrees QTc Int : 448 ms Sinus bradycardia Otherwise normal ECG Confirmed by KRISTEN JANE, ROMEO ([id number]), senior technical editor JIMI CHEN ([id number]) on 03/13/2024 11:01:45 AM Referred By: Confirmed By:ROMEO PETERSON MD
[2024-03-11 19:44] LABS: Reflex Troponin-HS? (from REC) Y
[2024-03-11 20:10] LABS: Troponin-I HS 4 pg/mL (3.0-54.0)
[2024-03-11] MEDS: Acetaminophen 325 MG Tablet 650 MG PO (21:28)
[2024-03-11] MEDS: Ondansetron 4 MG/2 ML Vial IV (21:28)
--- NOTE | 2024-03-11 21:37 | ED.RN ---
Called [facility] for transport. Informed that pt uses wheelchair for mobility and ravinder lift for transfer; also bariatric patient. Per Lisa at [facility], patient requires cot and does not meet criteria for wheelchair transportation.
[2024-03-12] VITALS (11 sets, daily range): BP systolic 110–144; BP diastolic 62–82; PULSE 46–53; RESP 10–12; O2SAT 90–94
== END 2024-03-12 02:49 | disposition home or self-care (01) ==
PROVIDERS: Emergency Provider Emergency Medicine; PCP Internal Medicine; Visit Provider Emergency Medicine
DX: R07.9 Chest pain, unspecified (principal); F31.9 Bipolar disorder, unspecified; I48.0 Paroxysmal atrial fibrillation; N18.30 Chronic kidney disease, stage 3 unspecified; K21.9 Gastro-esophageal reflux disease without esophagitis; E78.5 Hyperlipidemia, unspecified; I12.9 Hypertensive chronic kidney disease with stage 1 through stage 4 chronic kidney disease, or unspecified chronic kidney disease; Z79.01 Long term (current) use of anticoagulants; Z79.899 Other long term (current) drug therapy; F41.8 Other specified anxiety disorders; Z90.710 Acquired absence of both cervix and uterus; Z90.49 Acquired absence of other specified parts of digestive tract; F17.290 Nicotine dependence, other tobacco product, uncomplicated; Z86.73 Personal history of transient ischemic attack (TIA), and cerebral infarction without residual deficits
CPT/HCPCS: 71045; 80048; 84484; 85025; 93005; 96374; 96376; 99285; A4216; J2405

== ENCOUNTER → 2024-03-22 06:28 | Outpatient (REF) | payer MEDICARE, MEDICAID, SELFPAY ==
[2024-03-22 08:09] LABS: Hematocrit 35.4 % (37-47); Hemoglobin 10.9 g/dL (12.0-15.0); Mean Corp Hgb Conc 30.8 g/dL (32-36); Mean Corpuscular Hgb 27.8 pg (27.0-32.0); Mean Corpuscular Volume 90.3 fL (81-99); Platelet Count 277 K/mm3 (150-450); RBC Distribution Width CV 16.4 % (11.6-14.6); RBC Distribution Width SD 54.4 fl (35.1-43.9); Red Blood Count 3.92 M/mm3 (4.2-5.4); White Blood Count 5.6 K/mm3 (4.4-11.0)
== END ==
LOC: OLS.SW 06:28
PROVIDERS: PCP Internal Medicine; Visit Provider Internal Medicine
DX: E78.5 Hyperlipidemia, unspecified (principal); I50.32 Chronic diastolic (congestive) heart failure
CPT/HCPCS: 36415; 85027

== ENCOUNTER → 2024-04-10 05:00 | Outpatient (REF) | payer MEDICARE, MEDICAID, SELFPAY ==
[2024-04-10 09:42] LABS: Mucous, Urine 0 SEEN /hpf (<or=2+)
[2024-04-10 09:47] LABS: Color, Urine Yellow (Yellow); Glucose, Dipstick Normal (Normal); Ketone-Dipstick Negative (Negative); Leukocyte Esterase-Dipstick 500 /ul (Negative); Nitrite-Dipstick Positive (Negative); Occult Blood-Urine 25 /ul (Negative); Protein-Dipstick 30 mg/dl (Negative); Urine Bilirubin Dipstick Negative (Negative); Urine Clarity Cloudy (Clear); Urine Urobilinogen Normal (Normal); Urine pH 6.5 (5.0 - 8.0)
[2024-04-10 10:26] LABS: Red Blood Cells-Urine 5-10 SEEN /hpf (0-5); White Blood Cells 50-100 SEEN /hpf (0-5)
[2024-04-10 10:27] LABS: Bacteria 1+ /hpf (None Seen); Calcium Oxalate Crystals Ur 1+ /hpf (<or=2+); Squamous Epithelial Cells - UA 0-5 SEEN /hpf (5-10)
== END ==
LOC: OLS.SW 05:00
PROVIDERS: PCP Internal Medicine; Visit Provider Internal Medicine
DX: R30.9 Painful micturition, unspecified (principal)
CPT/HCPCS: 81001; 87077; 87086; 87088; 87186

== ENCOUNTER → 2024-05-01 | Outpatient (REF) | payer MEDICARE, MEDICAID, SELFPAY ==
[2024-05-01 08:29] LABS: Absolute Lymphocyte Count 1.57 X10^3/uL (0.83-4.51); Absolute Neutrophil Count 2.7 X10^3/uL (2.0-7.7); Basophil# 0.05 X10^3/uL; Eosinophil# 0.28 X10^3/uL; Eosinophils% 5.6 % (0-5); Hematocrit 31.3 % (37-47); Hemoglobin 9.7 g/dL (12.0-15.0); Lymphocyte # 1.57 X10^3/ul (0.83-4.51); Lymphocyte % 31.2 % (19-41); Mean Corpuscular Hgb 27.9 pg (27.0-32.0); Mean Corpuscular Volume 89.9 fL (81-99); Monocyte# 0.41 X10^3/uL; Monocyte% 8.1 % (0-10); NRBC Flagged by Analyzer 0 % (0-5); Neutrophil % 53.5 % (47-70); Platelet Count 210 K/mm3 (150-450); RBC Distribution Width CV 18.6 % (11.6-14.6); RBC Distribution Width SD 61.6 fl (35.1-43.9); Red Blood Count 3.48 M/mm3 (4.2-5.4)
[2024-05-01 09:03] LABS: ALB/GLOB Ratio 0.9 RATIO (0.9-2.4); AST(SGOT) 14 U/L (15-37); Alanine Aminotransfer ALT/SGPT 18 U/L (13-56); Albumin, Serum 2.9 g/dL (3.2-5.0); Alkaline Phosphatase 123 U/L (45-117); Anion Gap 4 (5-15); BUN 15 mg/dL (7-18); BUN/Creat Ratio 19.6 RATIO (10-20); Calcium,Total 8.8 mg/dL (8.5-10.1); Chloride 112 mmol/L (98-107); Cholesterol 98 mg/dL (200); Creatinine, Serum 0.77 mg/dL (0.55-1.02); EST Glomerular Filtration Rate 84 mL/min (>60); Est Glom Filt Rate - Afr Amer 101 mL/min (>60); Globulin 3.3 g/dL (2.2-4.2); Glucose 84 mg/dL (74-106); High Density Lipoprotein 57 mg/dL; Potassium 3.8 mmol/L (3.5-5.1); Protein, Total 6.2 g/dL (6.4-8.2); Sodium Level 141 mmol/L (136-145); Triglycerides 54 mg/dL; Very Low Density Lipoprotein 11 mg/dL (5-40)
== END ==
LOC: OLS.SW 05:00
PROVIDERS: PCP Internal Medicine; Visit Provider Internal Medicine
DX: E78.5 Hyperlipidemia, unspecified (principal); E03.9 Hypothyroidism, unspecified; I11.0 Hypertensive heart disease with heart failure; I50.32 Chronic diastolic (congestive) heart failure; I48.0 Paroxysmal atrial fibrillation
CPT/HCPCS: 36415; 80053; 80061; 85025

== ENCOUNTER → 2024-05-03 | Outpatient (REF) | payer MEDICARE, MEDICAID, SELFPAY ==
[2024-05-03 10:05] LABS: Vitamin D,25 Hydroxy 38.2 ng/mL
== END ==
LOC: OLS.SW 05:00
PROVIDERS: PCP Internal Medicine; Visit Provider Internal Medicine
DX: E55.9 Vitamin D deficiency, unspecified (principal)
CPT/HCPCS: 36415; 82306

== ENCOUNTER → 2024-06-19 | Outpatient (REF) | payer MEDICARE, MEDICAID, SELFPAY ==
[2024-06-19 09:00] LABS: Absolute Lymphocyte Count 1.03 X10^3/uL (0.83-4.51); Absolute Neutrophil Count 9.7 X10^3/uL (2.0-7.7); Basophil# 0.04 X10^3/uL; Basophil% 0.4 % (0-1); Eosinophil# 0.01 X10^3/uL; Eosinophils% 0.1 % (0-5); Hematocrit 34.8 % (37-47); Hemoglobin 11.1 g/dL (12.0-15.0); Lymphocyte # 1.03 X10^3/ul (0.83-4.51); Lymphocyte % 9.1 % (19-41); Mean Corp Hgb Conc 31.9 g/dL (32-36); Mean Corpuscular Hgb 29.2 pg (27.0-32.0); Mean Corpuscular Volume 91.6 fL (81-99); Mean Platelet Vol. 11.4 fl (6.2-12.0); Monocyte# 0.54 X10^3/uL; Monocyte% 4.8 % (0-10); NRBC Flagged by Analyzer 0 % (0-5); Neutrophil # 9.68 X10^3/uL (2.7-7.7); Neutrophil % 85.2 % (47-70); Platelet Count 274 K/mm3 (150-450); RBC Distribution Width CV 18.6 % (11.6-14.6); RBC Distribution Width SD 61.5 fl (35.1-43.9); White Blood Count 11.3 K/mm3 (4.4-11.0)
[2024-06-19 09:06] LABS: ALB/GLOB Ratio 0.8 RATIO (0.9-2.4); AST(SGOT) 16 U/L (15-37); Alanine Aminotransfer ALT/SGPT 12 U/L (13-56); Albumin, Serum 2.8 g/dL (3.2-5.0); Alkaline Phosphatase 107 U/L (45-117); Anion Gap 5 (5-15); BUN 15 mg/dL (7-18); BUN/Creat Ratio 20.2 RATIO (10-20); Calcium,Total 8.7 mg/dL (8.5-10.1); Chloride 110 mmol/L (98-107); Creatinine, Serum 0.74 mg/dL (0.55-1.02); EST Glomerular Filtration Rate 87 mL/min (>60); Est Glom Filt Rate - Afr Amer 105 mL/min (>60); Globulin 3.7 g/dL (2.2-4.2); Glucose 108 mg/dL (74-106); Magnesium 2.3 mg/dL (1.6-2.6); Potassium 3.5 mmol/L (3.5-5.1); Protein, Total 6.5 g/dL (6.4-8.2); Sodium Level 140 mmol/L (136-145)
== END ==
LOC: OLS.SW 05:00
PROVIDERS: PCP Internal Medicine; Visit Provider Internal Medicine
DX: Z79.899 Other long term (current) drug therapy (principal)
CPT/HCPCS: 36415; 80053; 83735; 85025

== ENCOUNTER 2024-07-21 12:36 | Inpatient (IN) | payer MEDICARE, MEDICAID, SELFPAY ==
[2024-07-21] VITALS (23 sets, daily range): BP systolic 128–162; BP diastolic 58–134; PULSE 57–115; RESP 12–36; TEMP 37.4–39.3; O2SAT 93–99; BMI 74.0; BMI 73.0
[2024-07-21 13:37] LABS: Blood Gas Specimen Type VEN; O2 Delivery Device Not entered; SITE Not entered; VBG BASE EXCESS 1 mmol/L (-1.0-3.5); VBG Bicarbonate 26 mmol/L (22-26); VBG PO2 34 mmHg (25-40); VBG SO2 63 % (50-70); VBG TCO2 28 mmol/L (23-33); VBG pCO2 45.7 mmHg (41-51); VBG pH 7.37 (7.32-7.42)
--- NOTE | 2024-07-21 13:57 | EKG12_ITS ---
Test Reason : SOB Blood Pressure : / mmHG Vent. Rate : 092 BPM Atrial Rate : 092 BPM P-R Int : 166 ms QRS Dur : 096 ms QT Int : 364 ms P-R-T Axes : 051 015 024 degrees QTc Int : 450 ms Sinus rhythm with marked sinus arrhythmia Nonspecific ST abnormality Abnormal ECG Confirmed by Reynaldo England ([id number]), editor department JAZMINE PABON ([id number]) on 07/24/2024 11:52:00 AM Referred By: KRISTIN/STEPHANIE Confirmed By:Reynaldo England
[2024-07-21] MEDS: MethylPREDNISolone 125 MG/2 ML Vial IV (14:08)
--- NOTE | 2024-07-21 14:10 | RAD_ITS ---
INDICATION: Shortness of breath EXAMINATION/TECHNIQUE: X-RAY - XR Chest 1 View COMPARISON: Prior study dated: 03/11/2024 FINDINGS: LINES/DEVICES: None. LUNGS: No consolidation, edema or effusion. No pneumothorax. MEDIASTINUM AND CARDIOVASCULAR STRUCTURES: Cardiac silhouette not enlarged. Central airways and mediastinal contour are unremarkable. BONES AND SOFT TISSUES: Unremarkable. RAD/Chest 1 View (Portable) IMPRESSION: No radiographic evidence of acute cardiopulmonary disease. Electronically Signed: Shamir Richard MD at 14:48 EDT ,
[2024-07-21] MEDS: Ipratropium/Albuterol Sulfate 3 ML AMPUL.NEB 9 ML INHALATION (14:15)
[2024-07-21 14:17] LABS: Bacteria 0 SEEN /hpf (None Seen); Mucous, Urine 0 SEEN /hpf (<or=2+); Red Blood Cells-Urine 0 SEEN /hpf (0-5); Squamous Epithelial Cells - UA 0 SEEN /hpf (5-10)
--- NOTE | 2024-07-21 14:19 | EX.ED.CRITCA ---
HPI History of Present Illness Chief Complaint: Alt LOC Narrative Narrative: Chief complaint and HPI: Altered mental status and increased work of breathing. History obtained by EMS report, SNF paperwork, and SNF nursing staff. History unable to be obtained by patient. Per report, patient was at SNF due to a mechanical fall receiving therapy. Patient did have physical therapy today. Nursing staff reports that she was at her baseline during physical therapy however after physical therapy when they checked on the patient in the room she was altered with increased respirations. On presentation, patient is alert but will not answer any of my questions. She has increased work of breathing with tachypnea, diffuse wheezing, and is febrile. On chart review patient has a history of proximal A-fib on Eliquis, anxiety, depression, bipolar, CHF. Review of systems: See HPI Medications: As listed on the chart Allergies: As listed on the chart PFSH: Per chart Vital signs: As listed on the chart. Reviewed. Physical exam: Head: Normocephalic, atraumatic Eyes: No sclera icterus, conjunctiva clear, PERRL ENT: Dry mucous membranes Neck: Trachea midline, supple CV: RRR, no murmurs, no peripheral edema Resp: Lungs diminished bilaterally and coarse, diffuse expiratory wheezing, tachypnea, on 2 L nasal cannula GI: Morbidly obese, abd soft, non-distended, non-tender, no r/r/g : Maloney catheter in place-this was placed by emergency department team clear urine, Musc: Moves all extremities, no deformity Skin: Warm, dry Neuro: GCS 10 (E3, M6-squeezed my hand and wiggled her toes when I asked her, V1), unable to assess orientation [facility] Medical History CKD (chronic kidney disease), stage III Anxiety and depression HLD (hyperlipidemia) HTN (hypertension) PAF (paroxysmal atrial fibrillation) Bilateral lower extremity edema Morbid obesity Sacroiliitis Home Medications ?Medication ?Instructions ?Recorded ?Last Taken ?Type isosorbide mononitrate 60 mg 120 mg PO DAILY BP 08/01/14 07/21/24 History tablet,extended release 24 hr apixaban 5 mg tablet (Eliquis) 5 mg PO BID AFIB 05/07/17 07/21/24 History omeprazole 20 mg capsule,delayed 20 mg PO DAILY GERD 05/07/17 07/21/24 History release amlodipine 10 mg tablet 10 mg PO QHS BP 11/10/18 07/21/24 History Prostat AWC 30 ml PO BID WOUND HEALING 07/21/24 07/21/24 History acetaminophen 325 mg tablet 650 mg PO Q4H PRN pain 07/21/24 07/19/24 History atorvastatin 10 mg tablet 10 mg PO QHS 07/21/24 07/20/24 History azelastine 137 mcg (0.1 %) nasal 1 spray intranasal Q12H 07/21/24 07/21/24 History spray buspirone 15 mg tablet 15 mg PO TID ANXIETY 07/21/24 07/21/24 History carboxymethylcellulose sodium 1 % 2 drp EACH EYE BID 07/21/24 07/21/24 History eye liquid gel drops (Refresh Liquigel) clonazepam 0.5 mg tablet 0.5 mg PO QHS 07/21/24 07/20/24 History escitalopram oxalate 10 mg tablet 10 mg PO DAILY 07/21/24 07/21/24 History escitalopram oxalate 5 mg tablet 5 mg PO DAILY 07/21/24 07/21/24 History furosemide 20 mg tablet 20 mg PO DAILY 07/21/24 07/21/24 History gabapentin 600 mg tablet 600 mg PO BID 07/21/24 07/21/24 History hydroxyzine HCl 25 mg tablet 25 mg PO Q12H PRN itching 07/21/24 07/20/24 History levocetirizine 5 mg tablet 5 mg PO QHS 07/21/24 07/20/24 History lisinopril 10 mg tablet 10 mg PO DAILY 07/21/24 07/21/24 History loperamide 2 mg tablet 2 mg PO Q12H PRN IBS 07/21/24 07/11/24 History (Anti-Diarrheal (loperamide)) melatonin 5 mg tablet 5 mg PO QHS PRN sleep 07/21/24 07/20/24 History methocarbamol 750 mg tablet 750 mg PO Q12H PRN muscle pain 07/21/24 07/20/24 History multivitamin (Daily Multi-Vitamin 1 tab PO DAILY 07/21/24 07/21/24 History tablet) ondansetron 4 mg disintegrating 4 mg PO Q8H PRN Nausea 07/21/24 Unknown History tablet potassium chloride 10 mEq 10 meq PO DAILY 07/21/24 07/21/24 History tablet,extended release prazosin 1 mg capsule 2 mg PO QHS 07/21/24 07/20/24 History quetiapine 100 mg tablet 100 mg PO DAILY 07/21/24 07/20/24 History sotalol 120 mg tablet 120 mg PO BID 07/21/24 07/21/24 History topiramate 25 mg tablet 25 mg PO QHS CHRONIC OBESITY 07/21/24 07/20/24 History topiramate 50 mg tablet 50 mg PO DAILY CHRONIC OBESITY 07/21/24 07/21/24 History tramadol 50 mg tablet 50 mg PO Q4H PRN pain 07/21/24 07/21/24 History Allergy/AdvReac Type Severity Reaction Status Date / Time amoxicillin trihydrate (From Allergy Hives Verified 07/21/24 12:38 Augmentin) baclofen Allergy Unknown Verified 07/21/24 12:38 gabapentin Allergy Unknown Verified 07/21/24 12:38 Iodinated Contrast Media Allergy Anaphylaxis Verified 07/21/24 12:38 (CONTRASTS) potassium clavulanate (From Allergy Hives Verified 07/21/24 12:38 Augmentin) shrimp Allergy Unknown Verified 07/21/24 12:38 valerian AdvReac NEEDS Verified 07/21/24 12:38 FOLLOW-UP Family History Mother Hypertension Father Heart disease Surgical History History of hysterectomy History of appendectomy History of cholecystectomy History of gastric bypass Status post incision and drainage Social History Smoking Status: Current every day smoker tobacco type: e-cigarettes EXAM Physical Exam Const Vital Signs: 07/21/24 12:38 07/21/24 12:44 07/21/24 12:47 Temperature 100.8 F H 100.8 F H Temperature Source Oral Oral Pulse Rate 99 98 Respiratory Rate 24 H 18 Respiratory Effort Labored Respiratory Depth Shallow Respiratory Pattern Tachypnea Blood Pressure 151/58 H 151/88 H Blood Pressure Mean 89 109 Pulse Ox 96 93 Oxygen Delivery Method Room Air Nasal Cannula Nasal Cannula Oxygen Flow Rate (L/min) 2 1 Fraction of Inspired Oxygen (FIO2) 07/21/24 13:20 07/21/24 14:01 07/21/24 14:05 Temperature 102.1 F H Temperature Source Core Pulse Rate 107 H 115 H Respiratory Rate 20 H 36 H Respiratory Effort Respiratory Depth Respiratory Pattern Blood Pressure 157/95 H Blood Pressure Mean 115 Pulse Ox 94 95 97 Oxygen Delivery Method Nasal Cannula Nasal Cannula Oxygen Flow Rate (L/min) 1 2 Fraction of Inspired Oxygen (FIO2) 30 07/21/24 14:18 07/21/24 14:20 07/21/24 15:00 Temperature 102.7 F H 102.7 F H Temperature Source Core Core Pulse Rate 98 88 78 Respiratory Rate 27 H 28 H 22 H Respiratory Effort Respiratory Depth Respiratory Pattern Blood Pressure 162/134 H 150/91 H Blood Pressure Mean 143 110 Pulse Ox 99 98 Oxygen Delivery Method Bi-pap Bi-pap Oxygen Flow Rate (L/min) Fraction of Inspired Oxygen (FIO2) 07/21/24 16:00 07/21/24 16:00 Temperature 102.3 F H Temperature Source Core Pulse Rate 74 77 Respiratory Rate 21 H 22 H Respiratory Effort Respiratory Depth Respiratory Pattern Blood Pressure 137/75 H Blood Pressure Mean 95 Pulse Ox 99 99 Oxygen Delivery Method Bi-pap Oxygen Flow Rate (L/min) Fraction of Inspired Oxygen (FIO2) 30 MDM MDM MDM Narrative Medical decision making narrative: 54-year-old female presents for evaluation of altered mental status and increased work of breathing. On arrival patient is hypertensive, tachypneic, and febrile. GCS is 10. Rectal Tylenol ordered. On [facility] paperwork patient is a full code. Will hold off on intubation as of now given GCS of 10. Will place on BiPAP for increased work of breathing. DuoNeb x 3 and Solu-Medrol ordered. Patient has a niece and nephew listed as emergency contact as well as his son Darryl. I called all of the cell phones personally and nobody answered. I did call the SNF and spoke with the nurse that was taking care of the patient. That is how I obtained the history. Differential diagnosis includes but is not limited to COPD exacerbation, pneumonia, CHF exacerbation, ACS, PE, UTI, viral illness, electrolyte abnormality. Patient was made a sepsis alert. Rocephin and azithromycin given prophylactically for suspected pneumonia. Patient is not hypotensive and concern for respiratory distress only 500 cc NS bolus ordered. Venous blood gas shows pH of 7.365 pCO2 of 45.7 this was before BiPAP. CBC with leukocytosis of 17.2. No anemia. Coagulation panel unremarkable. CMP relatively unremarkable. No ELISABET. No transaminitis. Lactic acid unremarkable. Troponin unremarkable. BNP unremarkable. UA has few leuk esterase but overall negative for UTI. Respiratory panel ordered and pending. Chest x-ray shows a questionable early pneumonia of the right lung compared to previous chest x-ray, however no obvious pneumonia. At this point in time, I suspect patient's encephalopathy is secondary to infection. No signs of trauma. Patient will warrant admission. Patient is in a COPD exacerbation requiring BiPAP for either early pneumonia versus viral illness. Patient was discussed with the hospitalist service, Dr. Rouse. He agrees with admission. He recommends CT head be performed. This was ordered. Patient will be admitted to the ICU. Patient was reexamined multiple times by myself. Her work of breathing improved on BiPAP. Her mentation is improving as well. She is now nodding intermittently to questions. She was updated of her plan and results. EKG: Interpreted by me/EM physician: EKG EKG shows sinus arrhythmia with heart rate of 92. Nonspecific ST changes. No ST elevation. Diagnostic: Interpreted by me/EM physician: Chest x-ray shows a questionable early pneumonia of the right lung compared to previous chest x-ray, however no obvious pneumonia. 30 minutes of critical care time utilized in managing the patient. This is due to high probability of and deterioration of the patient based on the patient's condition and excludes any separately billable procedures. Impression: 1. Acute hypoxic respiratory failure requiring BiPAP 2. COPD exacerbation 3. Possible early pneumonia versus viral illness 4. Metabolic encephalopathy 5. Concern for sepsis Lab Data Labs: Laboratory Results - last 24 hr 07/21/24 13:30 WBC 17.2 H RBC 3.99 L Hgb 12.1 Hct 37.8 MCV 94.7 MCH 30.3 MCHC 32.0 RDW Std Deviation 59.1 H RDW Coeff of Jaylen 17.2 H Plt Count 210 MPV 12.7 H Immature Gran % (Auto) 0.500 Neut % (Auto) 92.1 H Lymph % (Auto) 3.0 L [place] % (Auto) 3.7 Eos % (Auto) 0.2 Baso % (Auto) 0.5 Absolute Neuts (auto) 15.9 H Absolute Lymphs (auto) 0.51 L Nucleated RBC % 0 PT 14.7 INR 1.2 APTT 30.4 Sodium 141 Potassium 4.3 Chloride 109 H Carbon Dioxide 25.0 Anion Gap 7 BUN 15 Creatinine 0.83 Estim Creat Clear Calc 147.03 Est GFR (MDRD) Af Amer 92 Est GFR (MDRD) Non-Af 76 BUN/Creatinine Ratio 18.0 Glucose 99 Lactic Acid 1.4 Calcium 9.4 Phosphorus 3.4 Magnesium 2.4 Total Bilirubin 0.50 AST 20 ALT 15 Alkaline Phosphatase 128 H Total Creatine Kinase 89 Troponin I High Sens 8 B-Natriuretic Peptide 49.3 Total Protein 7.8 Albumin 3.7 Globulin 4.1 Albumin/Globulin Ratio 0.9 Urine Color Yellow Urine Clarity Clear Urine pH 7.0 Ur Specific [place] 1.005 Urine Protein Negative Urine Glucose (UA) Normal Urine Ketones Negative Urine Occult Blood Negative Urine Nitrite Negative Urine Bilirubin Negative Urine Urobilinogen Normal Ur Leukocyte Esterase 25 H Urine RBC 0 SEEN Urine WBC 0-5 SEEN Ur Squamous Epith Cells 0 SEEN Urine Bacteria 0 SEEN Urine Mucus 0 SEEN ABG Data ABG results: ABG 07/21/24 07/21/24 13:29 14:47 Specimen Type SHIRA ART Sample Site Not entered L Radial pH 7.40 Bicarbonate Actual 23.2 Total CO2 24 Base Excess -2 O2 Saturation 97 O2 % 30.0 ABG pCO2 37.5 ABG pO2 86 Sudarshan Test Positive VBG pH 7.37 VBG pO2 34 VBG HCO3 26 VBG Total CO2 28 VBG O2 Sat (Calc) 63 VBG Base Excess 1 POC Mix VBG pCO2 Pt Tmp 45.7 Respiration Rate 12 O2 Delivery Device Not entered BiPAP Vent Mode st POC PEEP 6 Clinical Comments 09/08 Radiography Diagnostic Testing: Clinical Impression(s) from Imaging Studies Chest X-Ray 07/21/24 14:10 IMPRESSION: No radiographic evidence of acute cardiopulmonary disease. Electronically Signed: Shamir Richard MD at 14:48 EDT , Discharge Plan Triage Chief Complaint: Alt LOC ED Provider: Mitchell Benjamin Dx/Rx/DC Orders Primary Care Provider: Ashwini Oconnell
[2024-07-21 14:27] LABS: Absolute Lymphocyte Count 0.51 X10^3/uL (0.83-4.51); Absolute Neutrophil Count 15.9 X10^3/uL (2.0-7.7); Basophil# 0.09 X10^3/uL; Basophil% 0.5 % (0-1); Eosinophil# 0.04 X10^3/uL; Eosinophils% 0.2 % (0-5); Hematocrit 37.8 % (37-47); Hemoglobin 12.1 g/dL (12.0-15.0); Lymphocyte # 0.51 X10^3/ul (0.83-4.51); Mean Corpuscular Hgb 30.3 pg (27.0-32.0); Mean Corpuscular Volume 94.7 fL (81-99); Mean Platelet Vol. 12.7 fl (6.2-12.0); Monocyte# 0.64 X10^3/uL; Monocyte% 3.7 % (0-10); NRBC Flagged by Analyzer 0 % (0-5); Neutrophil # 15.87 X10^3/uL (2.7-7.7); Neutrophil % 92.1 % (47-70); POSITIVE DIFFERENTIAL YES; Platelet Count 210 K/mm3 (150-450); RBC Distribution Width CV 17.2 % (11.6-14.6); RBC Distribution Width SD 59.1 fl (35.1-43.9); Red Blood Count 3.99 M/mm3 (4.2-5.4); White Blood Count 17.2 K/mm3 (4.4-11.0)
[2024-07-21] MEDS: 0.9% Normal Saline (500mL Bag) 500 ML 999 ML IV (14:28)
[2024-07-21] MEDS: Acetaminophen 650 MG Suppository RC (14:28)
[2024-07-21 14:30] LABS: Color, Urine Yellow (Yellow); Glucose, Dipstick Normal (Normal); Ketone-Dipstick Negative (Negative); Leukocyte Esterase-Dipstick 25 /ul (Negative); Nitrite-Dipstick Negative (Negative); Occult Blood-Urine Negative /ul (Negative); Protein-Dipstick Negative (Negative); Specific Gravity, Urine 1.005 (1.002-1.030); Urine Bilirubin Dipstick Negative (Negative); Urine Clarity Clear (Clear); Urine Urobilinogen Normal (Normal)
[2024-07-21] MEDS: Ceftriaxone 2 GM in 0.9% Normal Saline (50mL MB+) 50 ML IV (14:31)
[2024-07-21 14:35] LABS: International Normalized Ratio 1.2; Prothrombin Time (Protime)PT. 14.7 SECONDS (11.7-14.9)
[2024-07-21 14:36] LABS: Partial Thromboplast Time 30.4 Seconds (24.1-36.2); White Blood Cells 0-5 SEEN /hpf (0-5)
[2024-07-21 14:37] LABS: Lactic Acid 1.4 mmol/L (0.4-1.9)
[2024-07-21 14:43] LABS: ALB/GLOB Ratio 0.9 RATIO (0.9-2.4); AST(SGOT) 20 U/L (15-37); Alanine Aminotransfer ALT/SGPT 15 U/L (13-56); Albumin, Serum 3.7 g/dL (3.2-5.0); Alkaline Phosphatase 128 U/L (45-117); Anion Gap 7 (5-15); BUN 15 mg/dL (7-18); Calcium,Total 9.4 mg/dL (8.5-10.1); Chloride 109 mmol/L (98-107); Creatinine, Serum 0.83 mg/dL (0.55-1.02); EST Glomerular Filtration Rate 76 mL/min (>60); Est Glom Filt Rate - Afr Amer 92 mL/min (>60); Estimated Creatinine Clearance 147.03 ml/min; Globulin 4.1 g/dL (2.2-4.2); Glucose 99 mg/dL (74-106); Potassium 4.3 mmol/L (3.5-5.1); Protein, Total 7.8 g/dL (6.4-8.2); Sodium Level 141 mmol/L (136-145); Troponin-I HS 8 pg/mL (3.0-54.0)
[2024-07-21 14:51] LABS: Allen Test Positive; Base Excess -2 mmol/L (-2 to +2); Bicarbonate 23.2 mmol/L (22-26); Blood Gas Specimen Type ART; O2 Delivery Device BiPAP; PEEP 6; PO2 86 mmHG (75-100); RR 12; SITE L Radial; SO2 97 % (95-99); Total Carbon Dioxide 24 mmol/L; pCO2 37.5 mmHg (35-45)
[2024-07-21] MEDS: Azithromycin 500 MG in Dextrose 5%-Water (250mL Bag) 250 ML 250 MG IV (15:02)
[2024-07-21] MEDS: Acetaminophen 120 MG Suppository 240 MG RC (15:27)
[2024-07-21 15:48] LABS: BNP,B-Type NATRIURETIC PEPTIDE 49.3 pg/mL (0-100)
--- NOTE | 2024-07-21 16:45 | CT_ITS ---
STUDY: CT BRAIN WITHOUT CONTRAST REASON FOR EXAM: Female, 54 years old. AMS/Somnolent RADIATION DOSAGE (If Supplied By Facility): CTDIvol = ( 44.99 ) mGy, DLP = ( 846.73 ) mGycm TECHNIQUE: Transaxial CT imaging of the brain was performed without administration of intravenous contrast material. Individualized dose optimization techniques were used for this CT. COMPARISON: No relevant priors. FINDINGS: Normal soft tissue structures. Normal calvarium. Normal size ventricles and extra-axial spaces for the patient''s age. Normal white matter tracts of the cerebral hemispheres. Normal basal ganglia and thalami. Normal brainstem. Normal cerebellum. There is no intracranial hemorrhage. There are no findings of an acute ischemic infarction. Normal visualized paranasal sinuses. Postsurgical changes of the orbits. CT/Brain/Head without Contrast IMPRESSION: Normal unenhanced CT scan of the brain. MRI may be useful for further evaluation if clinically warranted Electronically Signed: Devin Monahan MD at 18:39 EDT ,
--- NOTE | 2024-07-21 16:52 | PCM.HP.STD ---
HPI - General General Date of Admission: 07/21/24 Date of Service: 07/21/24 Chief Complaint: Altered mental status, labored breathing from today. HPI Narrative QUINTEN YARBROUGH, is a 54 F with multiple comorbidities in [facility] for rehab following mechanical fall. On nurses checking, she was found to have increased shortness of breath, labored breathing, found somnolent, not answering question. She also tachypneic with diffuse wheezing and febrile. Patient is morbidly obese, paroxysmal A-fib on Eliquis, anxiety, depression/bipolar disorder and chronic heart failure History is mainly obtained from the chart, ED physician and the nursing staff. In ED, patient was febrile, heart rate upper 100s, Tmax 102.7 Fahrenheit, labored shallow tachypneic breathing and was put on BiPAP. ABG was done. Imaging done and reviewed. Patient further admitted in ICU [facility] Medical History CKD (chronic kidney disease), stage III Anxiety and depression HLD (hyperlipidemia) HTN (hypertension) PAF (paroxysmal atrial fibrillation) Bilateral lower extremity edema Morbid obesity Sacroiliitis Home Medications ?Medication ?Instructions ?Recorded ?Last Taken ?Type isosorbide mononitrate 60 mg 120 mg PO DAILY BP 08/01/14 07/21/24 History tablet,extended release 24 hr apixaban 5 mg tablet (Eliquis) 5 mg PO BID AFIB 05/07/17 07/21/24 History omeprazole 20 mg capsule,delayed 20 mg PO DAILY GERD 05/07/17 07/21/24 History release amlodipine 10 mg tablet 10 mg PO QHS BP 11/10/18 07/21/24 History Prostat AWC 30 ml PO BID WOUND HEALING 07/21/24 07/21/24 History acetaminophen 325 mg tablet 650 mg PO Q4H PRN pain 07/21/24 07/19/24 History atorvastatin 10 mg tablet 10 mg PO QHS 07/21/24 07/20/24 History azelastine 137 mcg (0.1 %) nasal 1 spray intranasal Q12H 07/21/24 07/21/24 History spray buspirone 15 mg tablet 15 mg PO TID ANXIETY 07/21/24 07/21/24 History carboxymethylcellulose sodium 1 % 2 drp EACH EYE BID 07/21/24 07/21/24 History eye liquid gel drops (Refresh Liquigel) clonazepam 0.5 mg tablet 0.5 mg PO QHS 07/21/24 07/20/24 History escitalopram oxalate 10 mg tablet 10 mg PO DAILY 07/21/24 07/21/24 History escitalopram oxalate 5 mg tablet 5 mg PO DAILY 07/21/24 07/21/24 History furosemide 20 mg tablet 20 mg PO DAILY 07/21/24 07/21/24 History gabapentin 600 mg tablet 600 mg PO BID 07/21/24 07/21/24 History hydroxyzine HCl 25 mg tablet 25 mg PO Q12H PRN itching 07/21/24 07/20/24 History levocetirizine 5 mg tablet 5 mg PO QHS 07/21/24 07/20/24 History lisinopril 10 mg tablet 10 mg PO DAILY 07/21/24 07/21/24 History loperamide 2 mg tablet 2 mg PO Q12H PRN IBS 07/21/24 07/11/24 History (Anti-Diarrheal (loperamide)) melatonin 5 mg tablet 5 mg PO QHS PRN sleep 07/21/24 07/20/24 History methocarbamol 750 mg tablet 750 mg PO Q12H PRN muscle pain 07/21/24 07/20/24 History multivitamin (Daily Multi-Vitamin 1 tab PO DAILY 07/21/24 07/21/24 History tablet) ondansetron 4 mg disintegrating 4 mg PO Q8H PRN Nausea 07/21/24 Unknown History tablet potassium chloride 10 mEq 10 meq PO DAILY 07/21/24 07/21/24 History tablet,extended release prazosin 1 mg capsule 2 mg PO QHS 07/21/24 07/20/24 History quetiapine 100 mg tablet 100 mg PO DAILY 07/21/24 07/20/24 History sotalol 120 mg tablet 120 mg PO BID 07/21/24 07/21/24 History topiramate 25 mg tablet 25 mg PO QHS CHRONIC OBESITY 07/21/24 07/20/24 History topiramate 50 mg tablet 50 mg PO DAILY CHRONIC OBESITY 07/21/24 07/21/24 History tramadol 50 mg tablet 50 mg PO Q4H PRN pain 07/21/24 07/21/24 History Allergy/AdvReac Type Severity Reaction Status Date / Time amoxicillin trihydrate (From Allergy Hives Verified 07/21/24 12:38 Augmentin) baclofen Allergy Unknown Verified 07/21/24 12:38 gabapentin Allergy Unknown Verified 07/21/24 12:38 Iodinated Contrast Media Allergy Anaphylaxis Verified 07/21/24 12:38 (CONTRASTS) potassium clavulanate (From Allergy Hives Verified 07/21/24 12:38 Augmentin) shrimp Allergy Unknown Verified 07/21/24 12:38 valerian AdvReac NEEDS Verified 07/21/24 12:38 FOLLOW-UP Family History Mother Hypertension Father Heart disease Surgical History History of hysterectomy History of appendectomy History of cholecystectomy History of gastric bypass Status post incision and drainage Social History Smoking Status: Current every day smoker tobacco type: e-cigarettes ROS ROS Narrative 14 system ROS unobtainable as patient is encephalopathic and very somnolent Review of Systems ROS Unobtainable: due to encephalopathy Vital Signs Vital Signs Vital Signs: 07/21/24 12:38 07/21/24 12:44 07/21/24 12:47 Temperature 100.8 F H 100.8 F H Temperature Source Oral Oral Pulse Rate 99 98 Respiratory Rate 24 H 18 Respiratory Effort Labored Respiratory Depth Shallow Respiratory Pattern Tachypnea Blood Pressure 151/58 H 151/88 H Blood Pressure Mean 89 109 Pulse Ox 96 93 Oxygen Delivery Method Room Air Nasal Cannula Nasal Cannula Oxygen Flow Rate (L/min) 2 1 Fraction of Inspired Oxygen (FIO2) 07/21/24 13:20 07/21/24 14:01 07/21/24 14:05 Temperature 102.1 F H Temperature Source Core Pulse Rate 107 H 115 H Respiratory Rate 20 H 36 H Respiratory Effort Respiratory Depth Respiratory Pattern Blood Pressure 157/95 H Blood Pressure Mean 115 Pulse Ox 94 95 97 Oxygen Delivery Method Nasal Cannula Nasal Cannula Oxygen Flow Rate (L/min) 1 2 Fraction of Inspired Oxygen (FIO2) 30 07/21/24 14:18 07/21/24 14:20 07/21/24 15:00 Temperature 102.7 F H 102.7 F H Temperature Source Core Core Pulse Rate 98 88 78 Respiratory Rate 27 H 28 H 22 H Respiratory Effort Respiratory Depth Respiratory Pattern Blood Pressure 162/134 H 150/91 H Blood Pressure Mean 143 110 Pulse Ox 99 98 Oxygen Delivery Method Bi-pap Bi-pap Oxygen Flow Rate (L/min) Fraction of Inspired Oxygen (FIO2) 07/21/24 16:00 07/21/24 16:00 Temperature 102.3 F H Temperature Source Core Pulse Rate 74 77 Respiratory Rate 21 H 22 H Respiratory Effort Respiratory Depth Respiratory Pattern Blood Pressure 137/75 H Blood Pressure Mean 95 Pulse Ox 99 99 Oxygen Delivery Method Bi-pap Oxygen Flow Rate (L/min) Fraction of Inspired Oxygen (FIO2) 30 Weight Weight: 458 lb 12.511 oz Body Mass Index (BMI) 74.0 Physical Exam Narrative General: Somnolent, lethargic, opens eyes on verbal command. Noncommunicative/non verbal. BMI 74.0 kg/m? HEENT: Atraumatic, PERRLA, EOMI, Normocephalic Oral: On BiPAP. Neck: Short and wide neck. Chest wall/Lungs: Air entry diffusely diminished in all lungs. Bilateral fine wheezing Cardiovascular: Sinus tachycardia, Normal S1, Normal S2, No M/G/R Abdomen: Bowel Sounds sluggish, Soft, Non Tender, Non-Distended. Fat abdomen : No renal angle tenderness. No suprapubic tenderness. Extremities: Mild bilateral lower extremity pitting edema, Capillary Refill Less than 3 Seconds Skin: No rashes, No breakdown Musculoskeletal: No Tenderness to Palpation of Joints or Extremities Neurological: Neuroexam could not be obtained. GCS 10 Somnolent and lethargic Psych/Mental Status: Somnolent. History of bipolar disorder Results Lab / Micro Data 07/21/24 13:30 07/21/24 13:30 Labs: Laboratory Results - last 24 hr 07/21/24 13:30: WBC 17.2 H, RBC 3.99 L, Hgb 12.1, Hct 37.8, MCV 94.7, MCH 30.3, MCHC 32.0, RDW Std Deviation 59.1 H, RDW Coeff of Jaylen 17.2 H, Plt Count 210, MPV 12.7 H, Immature Gran % (Auto) 0.500, Neut % (Auto) 92.1 H, Lymph % (Auto) 3.0 L, [place] % (Auto) 3.7, Eos % (Auto) 0.2, Baso % (Auto) 0.5, Absolute Neuts (auto) 15.9 H, Absolute Lymphs (auto) 0.51 L, Nucleated RBC % 0, PT 14.7, INR 1.2, APTT 30.4, Sodium 141, Potassium 4.3, Chloride 109 H, Carbon Dioxide 25.0, Anion Gap 7, BUN 15, Creatinine 0.83, Estim Creat Clear Calc 147.03, Est GFR (MDRD) Af Amer 92, Est GFR (MDRD) Non-Af 76, BUN/Creatinine Ratio 18.0, Glucose 99, Lactic Acid 1.4, Calcium 9.4, Total Bilirubin 0.50, AST 20, ALT 15, Alkaline Phosphatase 128 H, Troponin I High Sens 8, B-Natriuretic Peptide 49.3, Total Protein 7.8, Albumin 3.7, Globulin 4.1, Albumin/Globulin Ratio 0.9, Urine Color Yellow, Urine Clarity Clear, Urine pH 7.0, Ur Specific [place] 1.005, Urine Protein Negative, Urine Glucose (UA) Normal, Urine Ketones Negative, Urine Occult Blood Negative, Urine Nitrite Negative, Urine Bilirubin Negative, Urine Urobilinogen Normal, Ur Leukocyte Esterase 25 H, Urine RBC 0 SEEN, Urine WBC 0-5 SEEN, Ur Squamous Epith Cells 0 SEEN, Urine Bacteria 0 SEEN, Urine Mucus 0 SEEN ABG Data ABG results: ABG 07/21/24 07/21/24 13:29 14:47 Specimen Type SHIRA ART Sample Site Not entered L Radial pH 7.40 Bicarbonate Actual 23.2 Total CO2 24 Base Excess -2 O2 Saturation 97 O2 % 30.0 ABG pCO2 37.5 ABG pO2 86 Sudarshan Test Positive VBG pH 7.37 VBG pO2 34 VBG HCO3 26 VBG Total CO2 28 VBG O2 Sat (Calc) 63 VBG Base Excess 1 POC Mix VBG pCO2 Pt Tmp 45.7 Respiration Rate 12 O2 Delivery Device Not entered BiPAP Vent Mode st POC PEEP 6 Clinical Comments 09/08 Imaging Radiology Impression Chest X-Ray 07/21/24 14:10 IMPRESSION: No radiographic evidence of acute cardiopulmonary disease. Electronically Signed: Shamir Richard MD at 14:48 EDT , Assessment & Plan Assessment/Plan (1) Acute and chronic respiratory failure: QUALIFIERS: Respiratory failure complication: hypoxia Qualified Code(s): J96.21 - Acute and chronic respiratory failure with hypoxia PLAN: Plan This 51-year-old female being admitted from correction for respiratory distress and altered mental status. 1. Acute on chronic hypoxic respiratory failure: Patient is being admitted in ICU. On BiPAP. ABG 7.40/37.5/86 on 30% FiO2. Cigarette Examiner consulted. Patient is still somnolent but mental status as per ED patient is improving as she can open eyes and try to speak but is still nonverbal 2. SIRS criteria, possible sepsis due to possible pneumonia with obstructive sleep apnea, COPD exacerbation: Chest x-ray individually reviewed. Does not show significant change from the previous x-ray of 03/11/2024. No acute consolidation edema or effusion but patient might have bibasilar atelectasis. With fever, pneumonia suspected therefore started on IV vancomycin and cefepime. Patient is allergic to amoxicillin but tolerated ceftriaxone in ED. Suspected sepsis because patient is febrile, tachypneic, hypoxic with leukocytosis 17,000 mainly neutrophils and patient is encephalopathic with GCS 10. Lactic acid is pending. Patient not candidate for sepsis protocol IV fluid because she has a heart failure. UA shows LE 25, nitrite negative, 0-5 cells therefore benign. 3. Acute encephalopathy, exact etiology unclear but possible due to obstructive sleep apnea/encephalopathy: ABG did not show high pCO2. Lactic acid ordered. CT head ordered. 4. Hypertension: Blood pressure is elevated 151/58 but currently in a set range 135/98. Hold antihypertensive medications 5. PAF: Sinus rhythm with sinus arrhythmia at 92 bpm, QTc 458 ms. Patient on sotalol . An apex of for now we will hold it 6. Chronic normocytic anemia: Mild chronic normocytic normochromic anemia. Patient baseline hemoglobin runs around 10 to 11 g%. Currently 12.1 g. Platelet count 210,000. 7. Anxiety and depression: As patient is somnolent therefore hold antidepressant. 8. Morbid obesity: BMI 74.0 kg/m?. Life Insurance Actuary consult. 9. DVT prophylaxis: High risk. Lovenox 40 mill subcu twice daily. Hold Eliquis Charges/Coding Visit Charges Inpatient E&M: 64138 Init Hosp L3 Procedures Hospitalists Procedures: 63324 Advncd Care Plan 30 Min
[2024-07-21 17:08] LABS: Lactic Acid 0.8 mmol/L (0.4-1.9)
[2024-07-21] MEDS: Cefepime HCl 2 GM in 0.9% Normal Saline (100mL MB+) 100 ML IV ×2 (17:22→22:19)
[2024-07-21 17:40] LABS: CPK Total, Creatine Kinase 89 U/L (26-192)
[2024-07-21 17:51] LABS: Magnesium 2.4 mg/dL (1.6-2.6); Phosphorus 3.4 mg/dL (2.5-4.9)
--- NOTE | 2024-07-21 19:17 | PCMCONS.TICU ---
HPI Consult Data Date of Consult: 07/21/24 HPI Narrative Reason for Consultation: respiratory failure, acute encephalopathy HPI Narrative: 54Y F PMH including but not limited to super morbid obesity (BMI 73), chronic respiratory failure, A-fib on Eliquis, anxiety, depression, bipolar, CHF, PARAMJIT & hypothyroidism who presented fron SNF where she was receiving treatment after a mechanical fall with acute onset altered mental status and increased work of breathing. Per chart review patient completed PT today and was at her baseline but when PT went back to check on her she was altered and SOB. In the ED she was noted to be in respiratory distress a/w wheezing and also febrile. She was placed on NIV before admission to the ICU but on my evaluation she is currently on 2L O2 via NC and is lethargic but awakens easily. Review of systems: Unable to obtain due to clinical condition. Physical exam: Gen: super morbidly obese, lethargic but no distress HEENT: EOMI, MMM, neck supple, unable to assess JVD CV: RRR, no murmurs, no peripheral edema Resp: Lungs diminished bilaterally but no clinically evident wheezing at this time; nl chest wall GI: soft, non-distended, non-tender, no r/r/g Musc: Moves all extremities, no deformity Skin: Warm, dry; venous stasis dermatitis Neuro: lethargic but responds to stimuli; no gross deficits A/P #Acute on chronic hypox respiratory failure #Acute febrile illness, ?sepsis #?COPD/asthma vs other reactive airways syndrome #CHF #Acute encephalopathy #PARAMJIT #Super morbid obesity #AF on Eliquis #Recent fall -Sx seem to have markedly improved and currently she is on 2L NC; would certainly encourage NIV use qHS for at least 6-8h if tolerated for now and use PRN otherwise; titrate O2 to keep sats >90% -On emp IV Abx; F/U Cx -Cont nebs + steroids -Consider TTE if none available to review -Cont home meds -PT/OT PO diet Eliquis Guarded prognosis The entirety of this encounter was completed via telemedicine. [facility] Medical History CKD (chronic kidney disease), stage III Anxiety and depression HLD (hyperlipidemia) HTN (hypertension) PAF (paroxysmal atrial fibrillation) Bilateral lower extremity edema Morbid obesity Sacroiliitis Home Medications ?Medication ?Instructions ?Recorded ?Last Taken ?Type isosorbide mononitrate 60 mg 120 mg PO DAILY BP 08/01/14 07/21/24 History tablet,extended release 24 hr apixaban 5 mg tablet (Eliquis) 5 mg PO BID AFIB 05/07/17 07/21/24 History omeprazole 20 mg capsule,delayed 20 mg PO DAILY GERD 05/07/17 07/21/24 History release amlodipine 10 mg tablet 10 mg PO QHS BP 11/10/18 07/21/24 History Prostat AWC 30 ml PO BID WOUND HEALING 07/21/24 07/21/24 History acetaminophen 325 mg tablet 650 mg PO Q4H PRN pain 07/21/24 07/19/24 History atorvastatin 10 mg tablet 10 mg PO QHS 07/21/24 07/20/24 History azelastine 137 mcg (0.1 %) nasal 1 spray intranasal Q12H 07/21/24 07/21/24 History spray buspirone 15 mg tablet 15 mg PO TID ANXIETY 07/21/24 07/21/24 History carboxymethylcellulose sodium 1 % 2 drp EACH EYE BID 07/21/24 07/21/24 History eye liquid gel drops (Refresh Liquigel) clonazepam 0.5 mg tablet 0.5 mg PO QHS 07/21/24 07/20/24 History escitalopram oxalate 10 mg tablet 10 mg PO DAILY 07/21/24 07/21/24 History escitalopram oxalate 5 mg tablet 5 mg PO DAILY 07/21/24 07/21/24 History furosemide 20 mg tablet 20 mg PO DAILY 07/21/24 07/21/24 History gabapentin 600 mg tablet 600 mg PO BID 07/21/24 07/21/24 History hydroxyzine HCl 25 mg tablet 25 mg PO Q12H PRN itching 07/21/24 07/20/24 History levocetirizine 5 mg tablet 5 mg PO QHS 07/21/24 07/20/24 History lisinopril 10 mg tablet 10 mg PO DAILY 07/21/24 07/21/24 History loperamide 2 mg tablet 2 mg PO Q12H PRN IBS 07/21/24 07/11/24 History (Anti-Diarrheal (loperamide)) melatonin 5 mg tablet 5 mg PO QHS PRN sleep 07/21/24 07/20/24 History methocarbamol 750 mg tablet 750 mg PO Q12H PRN muscle pain 07/21/24 07/20/24 History multivitamin (Daily Multi-Vitamin 1 tab PO DAILY 07/21/24 07/21/24 History tablet) ondansetron 4 mg disintegrating 4 mg PO Q8H PRN Nausea 07/21/24 Unknown History tablet potassium chloride 10 mEq 10 meq PO DAILY 07/21/24 07/21/24 History tablet,extended release prazosin 1 mg capsule 2 mg PO QHS 07/21/24 07/20/24 History quetiapine 100 mg tablet 100 mg PO DAILY 07/21/24 07/20/24 History sotalol 120 mg tablet 120 mg PO BID 07/21/24 07/21/24 History topiramate 25 mg tablet 25 mg PO QHS CHRONIC OBESITY 07/21/24 07/20/24 History topiramate 50 mg tablet 50 mg PO DAILY CHRONIC OBESITY 07/21/24 07/21/24 History tramadol 50 mg tablet 50 mg PO Q4H PRN pain 07/21/24 07/21/24 History Allergy/AdvReac Type Severity Reaction Status Date / Time amoxicillin trihydrate (From Allergy Hives Verified 07/21/24 12:38 Augmentin) baclofen Allergy Unknown Verified 07/21/24 12:38 gabapentin Allergy Unknown Verified 07/21/24 12:38 Iodinated Contrast Media Allergy Anaphylaxis Verified 07/21/24 12:38 (CONTRASTS) potassium clavulanate (From Allergy Hives Verified 07/21/24 12:38 Augmentin) shrimp Allergy Unknown Verified 07/21/24 12:38 valerian AdvReac NEEDS Verified 07/21/24 12:38 FOLLOW-UP Family History Mother Hypertension Father Heart disease Surgical History History of hysterectomy History of appendectomy History of cholecystectomy History of gastric bypass Status post incision and drainage Social History Smoking Status: Current every day smoker tobacco type: e-cigarettes Objective Data Objective Data Vital Signs: Vital Signs Last response Temperature 38.3 C H 07/21/24 18:00 Temperature Source Core 07/21/24 17:00 Pulse Rate 63 07/21/24 18:37 Respiratory Rate 18 07/21/24 18:37 Respiratory Effort Labored 07/21/24 12:47 Respiratory Depth Shallow 07/21/24 12:47 Respiratory Pattern Tachypnea 07/21/24 12:47 Blood Pressure 128/66 H 07/21/24 18:37 Blood Pressure Mean 86 07/21/24 18:37 Blood Pressure Source Monitor 07/21/24 18:37 Blood Pressure Position Semi-Fowlers 07/21/24 18:37 Blood Pressure Location Right Forearm 07/21/24 18:37 Pulse Ox 96 07/21/24 18:37 Oxygen Delivery Method Nasal Cannula 07/21/24 18:37 Oxygen Flow Rate (L/min) 2 07/21/24 18:37 Fraction of Inspired Oxygen (FIO2) 30 07/21/24 16:00 I&O: I&O Last 24 Hours 07/20/24 07/21/24 07/21/24 23:59 11:59 23:59 Intake Total 905 / 905 Balance 905 / 905 I&O: Total Stay 07/21/24 12:36 thru 07/21/24 18:37 Intake Total 905 Balance 905 Current Meds Ordered / Administered: Current meds ordered / Administered Generic Name Dose Route Start Last Admin Trade Name Freq PRN Reason Stop Dose Admin Acetaminophen 650 mg 07/21/24 18:43 Acetaminophen 325 Mg Tablet PO Q6H PRN PRN Pain 1-10 Or Fever >100.7 Albuterol/Ipratropium 3 ml 07/21/24 18:43 Ipratropium/Albuterol Sulfate 3 Ml Ampul.Neb INHALATION Q4H.RT KIKE Bisacodyl 5 mg 07/21/24 18:43 Bisacodyl 5 Mg Tablet PO DAILY PRN PRN Constipation Enoxaparin Sodium 40 mg 07/21/24 22:00 Enoxaparin 40 Mg/0.4 Ml Syringe SC BID [facility] Protocol Cefepime HCl 2 gm/ Sodium 100 mls @ 200 mls/hr 07/21/24 22:00 Chloride IV Q8 KIKE Sodium Chloride 1,000 mls @ 999 mls/hr 07/21/24 18:43 IV 10/18/24 20:43 .Q1H1M [facility] Protocol Vancomycin IV-PHARMACY TO DOSE 500 mls @ 250 mls/hr 07/21/24 18:43 1 each/ Sodium Chloride IV DAILY [facility] Protocol Vancomycin HCl 2,000 mg/ 540 mls @ 250 mls/hr 07/21/24 19:00 Sodium Chloride IV 07/21/24 21:09 X1 ONE Methylprednisolone 40 mg 07/21/24 22:00 Methylprednisolone 40 Mg/Ml Vial IV Q8 [facility] Nitroglycerin 0.4 mg 07/21/24 18:43 Nitroglycerin (Inpatient Use) 0.4 Mg Tab.Subl SL Q5M PRN CARDIAC/CHEST PAIN Prochlorperazine Edisylate 5 mg 07/21/24 18:43 Prochlorperazine 10 Mg/2 Ml Vial IV Q4H PRN PRN Breakthrough Nausea/Vomiting Senna/Docusate Sodium 2 tablet 07/21/24 22:00 Senna/Docusate Sodium 1 Tablet PO BID [facility] Sodium Chloride 10 - 40 ml 07/21/24 18:45 0.9% Saline Lock 10 Ml Syringe IV UD PRN SALINE FLUSH Lab / Micro Data 07/21/24 13:30 07/21/24 13:30 Labs: Laboratory Results - last 24 hr 07/21/24 13:30: WBC 17.2 H, RBC 3.99 L, Hgb 12.1, Hct 37.8, MCV 94.7, MCH 30.3, MCHC 32.0, RDW Std Deviation 59.1 H, RDW Coeff of Jaylen 17.2 H, Plt Count 210, MPV 12.7 H, Immature Gran % (Auto) 0.500, Neut % (Auto) 92.1 H, Lymph % (Auto) 3.0 L, [place] % (Auto) 3.7, Eos % (Auto) 0.2, Baso % (Auto) 0.5, Absolute Neuts (auto) 15.9 H, Absolute Lymphs (auto) 0.51 L, Nucleated RBC % 0, PT 14.7, INR 1.2, APTT 30.4, Sodium 141, Potassium 4.3, Chloride 109 H, Carbon Dioxide 25.0, Anion Gap 7, BUN 15, Creatinine 0.83, Estim Creat Clear Calc 147.03, Est GFR (MDRD) Af Amer 92, Est GFR (MDRD) Non-Af 76, BUN/Creatinine Ratio 18.0, Glucose 99, Lactic Acid 1.4, Calcium 9.4, Phosphorus 3.4, Magnesium 2.4, Total Bilirubin 0.50, AST 20, ALT 15, Alkaline Phosphatase 128 H, Total Creatine Kinase 89, Troponin I High Sens 8, B-Natriuretic Peptide 49.3, Total Protein 7.8, Albumin 3.7, Globulin 4.1, Albumin/Globulin Ratio 0.9, Urine Color Yellow, Urine Clarity Clear, Urine pH 7.0, Ur Specific [place] 1.005, Urine Protein Negative, Urine Glucose (UA) Normal, Urine Ketones Negative, Urine Occult Blood Negative, Urine Nitrite Negative, Urine Bilirubin Negative, Urine Urobilinogen Normal, Ur Leukocyte Esterase 25 H, Urine RBC 0 SEEN, Urine WBC 0-5 SEEN, Ur Squamous Epith Cells 0 SEEN, Urine Bacteria 0 SEEN, Urine Mucus 0 SEEN 07/21/24 16:36: Lactic Acid 0.8 Micro: Microbiology 07/21/24 14:28 Mucosa - Nasopharyngeal Respiratory Panel (PCR) - Final ABG Data ABG results: ABG 07/21/24 07/21/24 13:29 14:47 Specimen Type SHIRA ART Sample Site Not entered L Radial pH 7.40 Bicarbonate Actual 23.2 Total CO2 24 Base Excess -2 O2 Saturation 97 O2 % 30.0 ABG pCO2 37.5 ABG pO2 86 Sudarshan Test Positive VBG pH 7.37 VBG pO2 34 VBG HCO3 26 VBG Total CO2 28 VBG O2 Sat (Calc) 63 VBG Base Excess 1 POC Mix VBG pCO2 Pt Tmp 45.7 Respiration Rate 12 O2 Delivery Device Not entered BiPAP Vent Mode st POC PEEP 6 Clinical Comments 09/08 Imaging Radiology Impression Chest X-Ray 07/21/24 14:10 IMPRESSION: No radiographic evidence of acute cardiopulmonary disease. Electronically Signed: Shamir Richard MD at 14:48 EDT , Brain CT 07/21/24 16:45 IMPRESSION: Normal unenhanced CT scan of the brain. MRI may be useful for further evaluation if clinically warranted Electronically Signed: Devin Monahan MD at 18:39 EDT , Assessment and Plan . Assessment and plan: Critical Care Time: The entirety of this encounter was done via Telemedicine
[2024-07-21] MEDS: Ipratropium/Albuterol Sulfate 3 ML AMPUL.NEB INHALATION ×2 (19:26→22:50)
[2024-07-21] MEDS: Vancomycin HCl 2,000 MG in 0.9% Normal Saline (500mL Bag) 500 ML 250 MG IV (20:03)
[2024-07-21] MEDS: 0.9% Saline Lock 10 ML Syringe IV (20:07)
[2024-07-21] MEDS: Enoxaparin 40 MG/0.4 ML Syringe SC (20:08)
[2024-07-21] MEDS: Lactated Ringers 1,000 ML 75 ML IV (20:09)
--- NOTE | 2024-07-21 20:17 | PCM.RX.CS ---
Consult Antibiotic Management Pharmacy has been consulted to manage selected antibiotic: Vancomycin Type of Intervention Type of Consult: New start Suspected Infection Suspected Infection: Pneumonia Labs Labs: Sodium 141 mmol/L (136-145) 07/21/24 13:30 Potassium 4.3 mmol/L (3.5-5.1) 07/21/24 13:30 Chloride 109 mmol/L (98-107) H 07/21/24 13:30 Carbon Dioxide 25.0 mmol/L (21.0-32.0) 07/21/24 13:30 Anion Gap 7 (5-15) 07/21/24 13:30 BUN 15 mg/dL (7-18) 07/21/24 13:30 Creatinine 0.83 mg/dL (0.55-1.02) 07/21/24 13:30 Est GFR (MDRD) Af Amer 92 mL/min (>60) 07/21/24 13:30 Est GFR (MDRD) Non-Af 76 mL/min (>60) 07/21/24 13:30 BUN/Creatinine Ratio 18.0 RATIO (10-20) 07/21/24 13:30 Glucose 99 mg/dL (74-106) 07/21/24 13:30 Microbiology Microbiology: Microbiology 07/21/24 14:28 Mucosa - Nasopharyngeal Respiratory Panel (PCR) - Final Pharmacy Plan for Drug Dosing Pharmacy Plan for Drug Dosing: NEW START IV VANCOMYCIN Consulting Physician: Nasim Indication: Pneumonia Goal Trough: 15-20 mg/dl SrCr: 0.83 mg/dl CrCl: 147 mL/min Comments: loading dose of 2000mg given 07/21 Vancomycin Dose: Will start 1500mg Q8H (07/22 @ 0400) and get a level prior to the fourth total dose per policy. Pending Level: 07/22/24 @ 1930 Pharmacy Service will continue to monitor and adjust dosing as required.
[2024-07-21] MEDS: Acetaminophen 325 MG Tablet 650 MG PO (23:41)
[2024-07-22] VITALS (19 sets, daily range): BP systolic 121–153; BP diastolic 59–97; PULSE 50–64; RESP 12–28; TEMP 36.3–37.6; O2SAT 95–100; BMI 72.9
[2024-07-22] MEDS: Ipratropium/Albuterol Sulfate 3 ML AMPUL.NEB INHALATION ×5 (02:15→21:05)
[2024-07-22] MEDS: Vancomycin HCl 1,500 MG in 0.9% Normal Saline (500mL Bag) 500 ML 250 MG IV ×2 (03:23→12:46)
[2024-07-22 04:23] LABS: Absolute Lymphocyte Count 0.77 X10^3/uL (0.83-4.51); Absolute Neutrophil Count 13.1 X10^3/uL (2.0-7.7); Basophil# 0.01 X10^3/uL; Basophil% 0.1 % (0-1); Hematocrit 32.3 % (37-47); Hemoglobin 10.7 g/dL (12.0-15.0); Lymphocyte # 0.77 X10^3/ul (0.83-4.51); Lymphocyte % 5.4 % (19-41); Mean Corp Hgb Conc 33.1 g/dL (32-36); Mean Corpuscular Hgb 30.6 pg (27.0-32.0); Mean Corpuscular Volume 92.3 fL (81-99); Mean Platelet Vol. 11.5 fl (6.2-12.0); Monocyte# 0.26 X10^3/uL; Monocyte% 1.8 % (0-10); NRBC Flagged by Analyzer 0 % (0-5); Neutrophil # 13.13 X10^3/uL (2.7-7.7); Neutrophil % 92.1 % (47-70); Platelet Count 181 K/mm3 (150-450); RBC Distribution Width CV 17.1 % (11.6-14.6); RBC Distribution Width SD 57.7 fl (35.1-43.9); White Blood Count 14.3 K/mm3 (4.4-11.0)
[2024-07-22 04:37] LABS: Anion Gap 6 (5-15); BUN 13 mg/dL (7-18); BUN/Creat Ratio 19.1 RATIO (10-20); Calcium,Total 8.7 mg/dL (8.5-10.1); Chloride 111 mmol/L (98-107); Creatinine, Serum 0.68 mg/dL (0.55-1.02); EST Glomerular Filtration Rate 96 mL/min (>60); Est Glom Filt Rate - Afr Amer 116 mL/min (>60); Estimated Creatinine Clearance 178.08 ml/min; Glucose 149 mg/dL (74-106); Potassium 3.5 mmol/L (3.5-5.1); Sodium Level 141 mmol/L (136-145)
[2024-07-22] MEDS: Acetaminophen 325 MG Tablet 650 MG PO ×2 (06:05→17:36)
[2024-07-22] MEDS: 0.9% Saline Lock 10 ML Syringe IV ×2 (06:05→17:27)
[2024-07-22] MEDS: Cefepime HCl 2 GM in 0.9% Normal Saline (100mL MB+) 100 ML IV ×3 (06:06→21:30)
[2024-07-22] MEDS: Enoxaparin 40 MG/0.4 ML Syringe SC (09:42)
[2024-07-22] MEDS: traMADol 50 MG Tablet 100 MG PO ×2 (10:13→21:19)
--- NOTE | 2024-07-22 10:58 | CASEMGMT ---
Addendum entered by Rita Coleman 07/22/24 12:36: Plan: [facility], intermediate level of care when medically ready SILVANA Michael Original Note: Social Work- SW met with pt to confirm pt plans to return to [facility]; pt reports desire to return to [facility] when medically ready. SW called [facility] and confirmed pt is there intermediate and can return at d/c. Pt updated contacts, as pt niece is in intermediate and can no longer be reached and pt Darryl jaramillo (whom she also refers to as son) has new numbers, as old contact in chart was disconnected. Pt nephew is primary contact at [phone] with an alternate number of [phone]. Pt reports that she would like to do HCPOA. SW completed HCPOA. Copy placed on chart. Pt requests copy to be sent to [facility]. Original provided to pt. Pt also reports that she would like to change code status; hospitalist notified. SILVANA Michael
--- NOTE | 2024-07-22 12:33 | PCM.PN.HOSP ---
Reason for Visit Reason for Visit: Diagnoses Acute and chronic respiratory failure with hypoxia (07/21/24) Subjective Subjective Patient was seen and examined today, she is alert and appropriate. She is currently on 2 L of oxygen. Patient's white blood cell count today was 14.3, urine and blood cultures are pending at this time Objective Data Objective Data Vital Signs: Vital Signs Temp Pulse Resp BP Pulse Ox O2 Del Method O2 Flow Rate 99.7 F H 63 18 127/78 H 97 Nasal Cannula 2 07/22/24 09:45 07/22/24 10:16 07/22/24 10:16 07/22/24 09:45 07/22/24 09:45 07/22/24 10:00 07/22/24 10:00 FiO2 30 07/22/24 03:00 Oxygen Flow Rate (L/min) 2 Oxygen Delivery Method Nasal Cannula Weight: 205.8 kg Body Mass Index (BMI) 72.9 Intake & Output: Intake and Output for Last 24 Hours 07/20/24 07/21/24 07/22/24 23:59 23:59 23:59 Intake Total 1545 / 1545 630 / 630 Output Total 300 / 300 225 / 225 Balance 1245 / 1245 405 / 405 Lab / Micro Data 07/22/24 04:16 07/22/24 04:16 Labs: Laboratory Results - last 24 hr 07/21/24 13:30: WBC 17.2 H, RBC 3.99 L, Hgb 12.1, Hct 37.8, MCV 94.7, MCH 30.3, MCHC 32.0, RDW Std Deviation 59.1 H, RDW Coeff of Jaylen 17.2 H, Plt Count 210, MPV 12.7 H, Immature Gran % (Auto) 0.500, Neut % (Auto) 92.1 H, Lymph % (Auto) 3.0 L, Cedar % (Auto) 3.7, Eos % (Auto) 0.2, Baso % (Auto) 0.5, Absolute Neuts (auto) 15.9 H, Absolute Lymphs (auto) 0.51 L, Nucleated RBC % 0, PT 14.7, INR 1.2, APTT 30.4, Sodium 141, Potassium 4.3, Chloride 109 H, Carbon Dioxide 25.0, Anion Gap 7, BUN 15, Creatinine 0.83, Estim Creat Clear Calc 147.03, Est GFR (MDRD) Af Amer 92, Est GFR (MDRD) Non-Af 76, BUN/Creatinine Ratio 18.0, Glucose 99, Lactic Acid 1.4, Calcium 9.4, Phosphorus 3.4, Magnesium 2.4, Total Bilirubin 0.50, AST 20, ALT 15, Alkaline Phosphatase 128 H, Total Creatine Kinase 89, Troponin I High Sens 8, B-Natriuretic Peptide 49.3, Total Protein 7.8, Albumin 3.7, Globulin 4.1, Albumin/Globulin Ratio 0.9, Urine Color Yellow, Urine Clarity Clear, Urine pH 7.0, Ur Specific [place] 1.005, Urine Protein Negative, Urine Glucose (UA) Normal, Urine Ketones Negative, Urine Occult Blood Negative, Urine Nitrite Negative, Urine Bilirubin Negative, Urine Urobilinogen Normal, Ur Leukocyte Esterase 25 H, Urine RBC 0 SEEN, Urine WBC 0-5 SEEN, Ur Squamous Epith Cells 0 SEEN, Urine Bacteria 0 SEEN, Urine Mucus 0 SEEN 07/21/24 16:36: Lactic Acid 0.8 07/22/24 04:16: WBC 14.3 H, RBC 3.50 L, Hgb 10.7 L, Hct 32.3 L, MCV 92.3, MCH 30.6, MCHC 33.1, RDW Std Deviation 57.7 H, RDW Coeff of Jaylen 17.1 H, Plt Count 181, MPV 11.5, Immature Gran % (Auto) 0.600, Neut % (Auto) 92.1 H, Lymph % (Auto) 5.4 L, Cedar % (Auto) 1.8, Eos % (Auto) 0.0, Baso % (Auto) 0.1, Absolute Neuts (auto) 13.1 H, Absolute Lymphs (auto) 0.77 L, Nucleated RBC % 0, Sodium 141, Potassium 3.5, Chloride 111 H, Carbon Dioxide 24.0, Anion Gap 6, BUN 13, Creatinine 0.68, Estim Creat Clear Calc 178.08, Est GFR (MDRD) Af Amer 116, Est GFR (MDRD) Non-Af 96, BUN/Creatinine Ratio 19.1, Glucose 149 H, Calcium 8.7 Micro: Microbiology 07/21/24 14:26 Mucosa - Nasopharyngeal Coronavirus COVID-19 PCR - Final 07/21/24 22:20 Urine Catheter - Maloney Streptococcus pneumoniae Antigen (M - Final 07/21/24 14:28 Mucosa - Nasopharyngeal Respiratory Panel (PCR) - Final ABG Data ABG results: ABG 07/21/24 07/21/24 13:29 14:47 Specimen Type SHIRA ART Sample Site Not entered L Radial pH 7.40 Bicarbonate Actual 23.2 Total CO2 24 Base Excess -2 O2 Saturation 97 O2 % 30.0 ABG pCO2 37.5 ABG pO2 86 Sudarshan Test Positive VBG pH 7.37 VBG pO2 34 VBG HCO3 26 VBG Total CO2 28 VBG O2 Sat (Calc) 63 VBG Base Excess 1 POC Mix VBG pCO2 Pt Tmp 45.7 Respiration Rate 12 O2 Delivery Device Not entered BiPAP Vent Mode st POC PEEP 6 Clinical Comments 09/08 Radiography Diagnostic Testing: Radiology Impression Chest X-Ray 07/21/24 14:10 IMPRESSION: No radiographic evidence of acute cardiopulmonary disease. Electronically Signed: Shamir Richard MD at 14:48 EDT , Brain CT 07/21/24 16:45 IMPRESSION: Normal unenhanced CT scan of the brain. MRI may be useful for further evaluation if clinically warranted Electronically Signed: Devin Monahan MD at 18:39 EDT , Physical Exam Const alert, oriented x3 and no apparent distress Constitutional Narrative: Patient is super super obese General Appearance: cooperative, well kempt and well developed Orientation / Consciousness: awake, oriented to person, oriented to place and oriented to time HEENT normocephalic, head/scalp atraumatic and moist oral mucous membranes Eyes PERRL, EOMs intact bilaterally and conjunctivae normal Neck supple and no JVD General: trachea midline Resp normal respiratory effort, no retractions, no use of accessory muscles and clear to auscultation bilaterally Auscultation: Negative for rales, rhonchi or wheezes Cardio regular rate, regular rhythm, S1 normal heart sound, S2 normal heart sound, no murmurs, no rub and no gallops GI normal to inspection, nondistended, normoactive bowel sounds, soft to palpation, non-tender and non-distended Extremity Extremity Narrative: Bilateral lower extremity lymphedema Skin no rashes or lesions noted General Skin Exam: no breakdown Neuro oriented x3, CN's II-XII intact bilaterally, no focal motor deficits and no sensory deficits noted Sensorium / Orientation: awake and alert Speech: speech normal Psych affect normal Assessment & Plan Assessment/Plan (1) Acute and chronic respiratory failure: QUALIFIERS: Respiratory failure complication: hypoxia Qualified Code(s): J96.21 - Acute and chronic respiratory failure with hypoxia PLAN: Plan 1. Acute on chronic hypoxic respiratory failure-exact etiology unclear at this time, continue present medications including aerosol treatments and IV antibiotics, patient appears stable for transfer to PCU at this time #2 acute encephalopathy-etiology unclear, patient is alert and oriented x 3 today, continue to provide supportive care #3 essential hypertension-patient will remain on her blood pressure medications, I added these today #4 paroxysmal atrial fibrillation-patient is on sotalol, I restarted this medication today patient is on anticoagulation. #5 super superobesity-complicates care, management, recovery, and prognosis #6 bipolar 1 disorder-patient will remain on her present medications Total clinical time spent by myself addressing patient's medical issues, reviewing all of her data, and collaborating with patient's care team: 35 minutes Charges/Coding Visit Charges Inpatient E&M: 97526 Subs Hosp L2
[2024-07-22] MEDS: Gabapentin 600 MG Tablet PO ×2 (12:44→21:18)
[2024-07-22] MEDS: APIXABAN 5 MG TABLET PO ×2 (12:44→21:19)
[2024-07-22] MEDS: Escitalopram Oxalate 10 MG Tablet PO (12:44)
[2024-07-22] MEDS: Pantoprazole Sodium 20 MG Tablet PO (12:45)
[2024-07-22] MEDS: Sotalol Hydrochloride 80 MG Tablet 120 MG PO ×2 (12:45→21:19)
[2024-07-22] MEDS: QUEtiapine 100 MG Tablet PO (12:46)
[2024-07-22] MEDS: Lisinopril 10 MG Tablet PO (12:46)
[2024-07-22] MEDS: busPIRone 15 MG TABLET PO ×2 (17:27→21:19)
[2024-07-22 20:11] LABS: Vancomycin, Trough Level 26.2 ug/mL (5.0-15.0)
--- NOTE | 2024-07-22 20:22 | PCM.RX.CS ---
Consult Antibiotic Management Pharmacy has been consulted to manage selected antibiotic: Vancomycin Type of Intervention Type of Consult: Follow-up Labs Labs: Sodium 141 mmol/L (136-145) 07/22/24 04:16 Potassium 3.5 mmol/L (3.5-5.1) 07/22/24 04:16 Chloride 111 mmol/L (98-107) H 07/22/24 04:16 Carbon Dioxide 24.0 mmol/L (21.0-32.0) 07/22/24 04:16 Anion Gap 6 (5-15) 07/22/24 04:16 BUN 13 mg/dL (7-18) 07/22/24 04:16 Creatinine 0.68 mg/dL (0.55-1.02) 07/22/24 04:16 Est GFR (MDRD) Af Amer 116 mL/min (>60) 07/22/24 04:16 Est GFR (MDRD) Non-Af 96 mL/min (>60) 07/22/24 04:16 BUN/Creatinine Ratio 19.1 RATIO (-) 07/22/24 04:16 Glucose 149 mg/dL (74-106) H 07/22/24 04:16 Vancomycin Trough 26.2 ug/mL (5.0-15.0) H 07/22/24 19:30 Microbiology Microbiology: Microbiology 07/22/24 15:25 Stool Clostridioides difficile (PCR) - Final 07/21/24 13:30 Urine Catheter - Catheter Urine Culture - Preliminary Presumptive E. coli 07/21/24 14:26 Mucosa - Nasopharyngeal Coronavirus COVID-19 PCR - Final 07/21/24 22:20 Urine Catheter - Maloney Streptococcus pneumoniae Antigen (M - Final 07/21/24 14:28 Mucosa - Nasopharyngeal Respiratory Panel (PCR) - Final Goal Trough Goal Trough: 15-20 mcg/mL Pharmacy Plan for Drug Dosing Pharmacy Plan for Drug Dosing: Pharmacy Service will continue to monitor and adjust dosing as required. TROUGH 26.2 @ 7 HOURS. HOLD DOSE AND DRAW RANDOM LEVEL IN 8 HOURS Follow-Up Labs Follow-Up Labs: Trough: Vancomycin Date/Time Labs Ordered Labs to be done on [date and time ordered]: 07/23 @ 5210
[2024-07-22] MEDS: Loratadine 10 MG Tablet PO (21:19)
[2024-07-22] MEDS: Atorvastatin Calcium 10 MG Tablet PO (21:19)
[2024-07-22] MEDS: Prazosin HCl 1 MG Capsule 2 MG PO (21:19)
[2024-07-22] MEDS: clonazePAM 0.5 MG Tablet PO (21:20)
--- NOTE | 2024-07-23 00:31 | EX.EMERGENCY ---
EMERGENCY DOCUMENTATION INITIATED: Date: 06/22/2024 Time: 1300 Initiated 07/22/24
[2024-07-23 02:06] VITALS: RESP 12
[2024-07-23 03:05] VITALS: BP 129/87; PULSE 48; RESP 18; TEMP 36.4; O2SAT 98
[2024-07-23 04:49] VITALS: BMI 74.3
[2024-07-23 04:56] LABS: Vancomycin, Random Level 18.6 ug/mL (0.0-15.0)
[2024-07-23] MEDS: busPIRone 15 MG TABLET PO (05:05)
[2024-07-23] MEDS: traMADol 50 MG Tablet 100 MG PO (05:05)
[2024-07-23] MEDS: Cefepime HCl 2 GM in 0.9% Normal Saline (100mL MB+) 100 ML IV (05:05)
--- NOTE | 2024-07-23 05:29 | PCM.RX.CS ---
Consult Antibiotic Management Pharmacy has been consulted to manage selected antibiotic: Vancomycin Type of Intervention Type of Consult: Follow-up Labs Labs: Sodium 141 mmol/L (136-145) 07/22/24 04:16 Potassium 3.5 mmol/L (3.5-5.1) 07/22/24 04:16 Chloride 111 mmol/L (98-107) H 07/22/24 04:16 Carbon Dioxide 24.0 mmol/L (21.0-32.0) 07/22/24 04:16 Anion Gap 6 (5-15) 07/22/24 04:16 BUN 13 mg/dL (7-18) 07/22/24 04:16 Creatinine 0.68 mg/dL (0.55-1.02) 07/22/24 04:16 Est GFR (MDRD) Af Amer 116 mL/min (>60) 07/22/24 04:16 Est GFR (MDRD) Non-Af 96 mL/min (>60) 07/22/24 04:16 BUN/Creatinine Ratio 19.1 RATIO (-20) 07/22/24 04:16 Glucose 149 mg/dL (74-106) H 07/22/24 04:16 Vancomycin Trough 26.2 ug/mL (5.0-15.0) H 07/22/24 19:30 Random Vancomycin 18.6 ug/mL (0.0-15.0) H 07/23/24 03:44 Microbiology Microbiology: Microbiology 07/22/24 15:25 Stool Clostridioides difficile (PCR) - Final 07/21/24 13:30 Urine Catheter - Catheter Urine Culture - Preliminary Presumptive E. coli 07/21/24 14:26 Mucosa - Nasopharyngeal Coronavirus COVID-19 PCR - Final 07/21/24 22:20 Urine Catheter - Maloney Streptococcus pneumoniae Antigen (M - Final 07/21/24 14:28 Mucosa - Nasopharyngeal Respiratory Panel (PCR) - Final Pharmacy Plan for Drug Dosing Pharmacy Plan for Drug Dosing: Pharmacy Service will continue to monitor and adjust dosing as required. RANDOM LEVEL 18.6. START 1GM Q8H AND FOLLOW UP TROUGH PRIOR TO 4TH DOSE Follow-Up Labs Follow-Up Labs: Trough: Vancomycin Date/Time Labs Ordered Labs to be done on [date and time ordered]: 07/24 @ 0500
[2024-07-23] MEDS: Vancomycin IV 1,000 MG/200 ML BAG 200 MG IV (05:49)
[2024-07-23] MEDS: Ipratropium/Albuterol Sulfate 3 ML AMPUL.NEB INHALATION ×2 (07:27→11:03)
[2024-07-23 07:28] VITALS: PULSE 47; RESP 18; O2SAT 95
[2024-07-23 09:05] VITALS: BP 151/74; PULSE 49; RESP 16; TEMP 36.6; O2SAT 99
[2024-07-23] MEDS: APIXABAN 5 MG TABLET PO (10:17)
[2024-07-23] MEDS: Escitalopram Oxalate 10 MG Tablet PO ×2 (10:17)
[2024-07-23] MEDS: Escitalopram Oxalate 10 MG Tablet 5 MG PO (10:18)
[2024-07-23] MEDS: QUEtiapine 100 MG Tablet PO (10:19)
[2024-07-23] MEDS: Senna/Docusate Sodium 1 Tablet 2 TABLET PO (10:19)
[2024-07-23] MEDS: Pantoprazole Sodium 20 MG Tablet PO (10:19)
[2024-07-23] MEDS: Lisinopril 10 MG Tablet PO (10:20)
[2024-07-23] MEDS: Gabapentin 600 MG Tablet PO (10:25)
[2024-07-23] MEDS: Acetaminophen 325 MG Tablet 650 MG PO (10:28)
[2024-07-23 11:05] VITALS: PULSE 50; RESP 18
--- NOTE | 2024-07-23 11:41 | PCM.TXEXTCAR ---
Diet Diet Order/Speech Therapy: 07/22/24 15:53 Diet: Cardiac: Calorie-Controlled Food consistency:: Regular Liquid Consistency:: Regular/Thin Dietary Modifications:: Sodium Restricted How many daily calories?: 2000 calorie Routine Orders/Code Status Code Status: Full Code Therapies Weight Bearing: Weight bearing as tolerated (With a walker) Problem/Diagnosis (1) Acute and chronic respiratory failure: Status: Chronic Code(s): J96.20 - Acute and chronic respiratory failure, unspecified whether with hypoxia or hypercapnia Plan 1. Acute hypoxic respiratory failure-exact etiology unclear at this time, continue present medications including aerosol treatments and IV antibiotics, patient appears stable for transfer to PCU at this time #2 acute encephalopathy-etiology unclear, patient is alert and oriented x 3 today, continue to provide supportive care #3 essential hypertension-patient will remain on her blood pressure medications, I added these today #4 paroxysmal atrial fibrillation-patient is on sotalol, I restarted this medication today patient is on anticoagulation. #5 super superobesity-complicates care, management, recovery, and prognosis #6 bipolar 1 disorder-patient will remain on her present medications #7 bacteriuria with ESBL Total clinical time spent by myself addressing patient's medical issues, reviewing all of her data, and collaborating with patient's care team: 35 minutes Allergies/Procedures Done in Hospital Allergies amoxicillin trihydrate (From Augmentin) Allergy (Verified 07/21/24 12:38) Hives baclofen Allergy (Verified 07/21/24 12:38) Unknown gabapentin Allergy (Verified 07/21/24 12:38) Unknown Iodinated Contrast Media (CONTRASTS) Allergy (Verified 07/21/24 12:38) Anaphylaxis potassium clavulanate (From Augmentin) Allergy (Verified 07/21/24 12:38) Hives shrimp Allergy (Verified 07/21/24 12:38) Unknown valerian Adverse Reaction (Verified 07/21/24 12:38) NEEDS FOLLOW-UP Procedures: None Type of Care/Length of Stay Estimated LOS: More Than 30 Days Type of Care Needed: Intermediate Rehab Potential: Fair Prognosis: Fair Additional Orders/Day of Discharge H&P will serve as current which was dated: 07/21/24 Day of Discharge: 07/23/24 Dietary and Speech Recommendations Dietitian Recommendations/Changes: Will adjust diet to 2000 calorie controlled, cardiac/sodium-restricted. FR as needed per physician. Diet education as pt willing. Discharge Plan Admission Admit Date/Time: 07/21/24 16:25 Primary Reason for Your Visit: Acute hypoxic respiratory failure Attending Provider: Shawn Bey Primary Care Provider: Ashwini Oconnell Consulting Providers: Aroldo Rouse; Edgar Scott; Rakesh Coker; Ricardo Benito; Carlos Nation; Alvino Dinero; Miguel Smiley; Sharri Medrano; Haim Naranjo; Shane Freed; Lakia Bates; Sharonda Rodas; Edgar Samuels; Ricky Iniguez; Tl Singh; Dread Perez; Erick Harper; Devin Burciaga Discharge Orders/Prescriptions Prescriptions: New clonazepam 0.5 mg Tablet 0.5 mg PO QHS Qty: 2 0RF tramadol 50 mg Tablet 100 mg PO Q8H PRN (Reason: headache) Qty: 6 0RF Continued omeprazole 20 MG capsule 20 mg PO DAILY Eliquis 5 MG tablet 5 mg PO BID amlodipine 10 MG tablet 10 mg PO QHS atorvastatin 10 mg tablet 10 mg PO QHS furosemide 20 mg tablet 20 mg PO DAILY levocetirizine 5 mg tablet 5 mg PO QHS escitalopram oxalate 10 mg tablet 10 mg PO DAILY Patient Comments: GIVE 1 10MG TABLET AND 1 5MG TABLET TO EQUAL TOTAL DOSE OF 15MG IN THE MORNING escitalopram oxalate 5 mg tablet 5 mg PO DAILY Patient Comments: GIVE 1 10MG TABLET AND 1 5MG TABLET TO EQUAL TOTAL DOSE OF 15MG IN THE MORNING lisinopril 10 mg tablet 10 mg PO DAILY multivitamin [Daily Multi-Vitamin] Tablet 1 tab PO DAILY prazosin 1 mg capsule 2 mg PO QHS quetiapine 100 mg tablet 100 mg PO DAILY azelastine 137 mcg (0.1 %) spray,non-aerosol 1 spray INTRANASAL Q12H Rx Instructions: INSTILL 1 SPRAY INTO EACH NOSTRIL gabapentin 600 mg tablet 600 mg PO BID carboxymethylcellulose sodium [Refresh Liquigel] 1 % drops, liquid gel 2 drp EACH EYE BID sotalol 120 mg tablet 120 mg PO BID buspirone 15 mg tablet 15 mg PO TID loperamide [Anti-Diarrheal (loperamide)] 2 mg tablet 2 mg PO Q12H PRN (Reason: IBS) methocarbamol 750 mg tablet 750 mg PO Q12H PRN (Reason: muscle pain) ondansetron 4 MG tablet 4 mg PO Q8H PRN (Reason: Nausea) acetaminophen 325 mg tablet 650 mg PO Q4H PRN (Reason: pain) Discontinued isosorbide mononitrate 60 MG tablet 120 mg PO DAILY melatonin 5 mg tablet 5 mg PO QHS PRN (Reason: sleep) potassium chloride 10 mEq tablet extended release 10 meq PO DAILY topiramate 25 mg tablet 25 mg PO QHS topiramate 50 mg tablet 50 mg PO DAILY Prostat AWC liquid 30 ml PO BID Rx Instructions: NUTRITIONAL BEVERAGE hydroxyzine HCl 25 mg tablet 25 mg PO Q12H PRN (Reason: itching) tramadol 50 mg tablet 50 mg PO Q4H PRN (Reason: pain) No Action clonazepam 0.5 mg tablet 0.5 mg PO QHS Referrals / Follow Up: Ashwini Oconnell MD [Primary Care Provider] - Disposition Disposition (needs filled in before D/C Order can be placed): NonSkilled NH/Intermed Care (1) Acute and chronic respiratory failure Qualifiers: Respiratory failure complication: hypoxia Qualified Code(s): J96.21 - Acute and chronic respiratory failure with hypoxia
--- NOTE | 2024-07-23 12:01 | PCM.DC.SUM ---
Providers Date of Admission: 07/21/24 Date of Discharge: 07/23/24 Primary Care Physician: Dr. Ashwini Oconnell MD Consultations 07/21/24 18:43 Consult: [employer] Process Control Technician / Pulmonary Medicine Routine Consulting Provider: Intensivists/Pulmonary Med Reason for Consult: Acute hypoxic resp failure EMERGENT Consult: No MD Notified: Yes Date Notified: 07/21/24 Time Notified: 16:26 Method of Notification: Verbal Reason For Visit: ACUTE ON CHR RESP FAILURE Diagnosis Discharge Diagnosis (1) Acute and chronic respiratory failure: Status: Chronic Code(s): J96.20 - Acute and chronic respiratory failure, unspecified whether with hypoxia or hypercapnia Qualifiers: Respiratory failure complication: hypoxia Qualified Code(s): J96.21 - Acute and chronic respiratory failure with hypoxia Plan 1. Acute hypoxic respiratory failure-exact etiology unclear at this time, continue present medications including aerosol treatments and IV antibiotics, patient appears stable for transfer to PCU at this time #2 acute encephalopathy-etiology unclear, patient is alert and oriented x 3 today, continue to provide supportive care #3 essential hypertension-patient will remain on her blood pressure medications, I added these today #4 paroxysmal atrial fibrillation-patient is on sotalol, I restarted this medication today patient is on anticoagulation. #5 super super obesity-complicates care, management, recovery, and prognosis #6 bipolar 1 disorder-patient will remain on her present medications #7 bacteriuria with ESBL Acute on chronic hypoxic respiratory failure was ruled out, sepsis was ruled out Total clinical time spent by myself addressing patient's medical issues, reviewing all of her data, and collaborating with patient's care team: 35 minutes Medications at Discharge Home Medications apixaban 5 mg tablet (Eliquis) 5 mg PO BID AFIB 05/07/17 omeprazole 20 mg capsule,delayed release 20 mg PO DAILY GERD 05/07/17 amlodipine 10 mg tablet 10 mg PO QHS BP 11/10/18 acetaminophen 325 mg tablet 650 mg PO Q4H PRN pain 07/21/24 atorvastatin 10 mg tablet 10 mg PO QHS 07/21/24 azelastine 137 mcg (0.1 %) nasal spray 1 spray intranasal Q12H 07/21/24 buspirone 15 mg tablet 15 mg PO TID ANXIETY 07/21/24 carboxymethylcellulose sodium 1 % eye liquid gel drops (Refresh Liquigel) 2 drp EACH EYE BID 07/21/24 clonazepam 0.5 mg tablet 0.5 mg PO QHS 07/21/24 escitalopram oxalate 10 mg tablet 10 mg PO DAILY 07/21/24 escitalopram oxalate 5 mg tablet 5 mg PO DAILY 07/21/24 furosemide 20 mg tablet 20 mg PO DAILY 07/21/24 gabapentin 600 mg tablet 600 mg PO BID 07/21/24 levocetirizine 5 mg tablet 5 mg PO QHS 07/21/24 lisinopril 10 mg tablet 10 mg PO DAILY 07/21/24 loperamide 2 mg tablet (Anti-Diarrheal (loperamide)) 2 mg PO Q12H PRN IBS 07/21/24 methocarbamol 750 mg tablet 750 mg PO Q12H PRN muscle pain 07/21/24 multivitamin (Daily Multi-Vitamin tablet) 1 tab PO DAILY 07/21/24 ondansetron 4 mg disintegrating tablet 4 mg PO Q8H PRN Nausea 07/21/24 prazosin 1 mg capsule 2 mg PO QHS 07/21/24 quetiapine 100 mg tablet 100 mg PO DAILY 07/21/24 sotalol 120 mg tablet 120 mg PO BID 07/21/24 clonazepam 0.5 mg tablet 0.5 mg PO QHS #2 tabs 07/23/24 tramadol 50 mg tablet 100 mg (2 x 50 mg) PO Q8H PRN headache #6 tabs 07/23/24 Hospital Course Operations None Procedures None Summary of Care Provided Minutes Spent on Discharge: 32 Hospital Course: This 54-year-old white female was seen in the emergency room at [facility] after being transported from an intermediate care facility due to altered level of consciousness and dyspnea. History was unable to be obtained from the patient, workup in the emergency room included a chest x-ray which did not show a definite infiltrate, EKG showed a sinus arrhythmia with a heart rate of 92, patient had a venous blood gas performed which did not show acidosis, she was placed on BiPAP due to her work of breathing. Patient's CBC showed an elevated white count at 17.2, CMP was relatively unremarkable. Lactic acid was normal. Beta natruretic peptide was unremarkable. UA did not show an obvious urinary tract infection. Respiratory panel was pending at the time of her admission. Patient was admitted to ICU, she was seen in consultation by critical care and IV antibiotics were instituted, patient's oxygen demand dropped and she was weaned down on her oxygen. Patient improved and was transferred from ICU to PCU, she was weaned off oxygen altogether and her mentation improved before she was moved to PCU. Urine culture grew out small numbers of ESBL E. coli-this was not thought to be significant, blood culture was negative at 48 hours. On 07/23/2024, patient was seen and examined: On examination she appeared in good health and spirits, patient is super superobese, she does not appear to be in any distress. Vital signs as documented. Skin warm and dry and without overt rashes. Neck without JVD, thyroid appears normal, trachea is midline, neck is supple. Lungs clear, normal air movement was noted. Heart exam notable for regular rhythm, normal sounds and absence of murmurs, rubs or gallops. Abdomen unremarkable and without evidence of organomegaly, masses, or abdominal aortic enlargement, bowel sounds are present in all 4 quadrants, no abdominal tenderness was noted. Extremities edematous, no cyanosis was noted, no clubbing was noted. Neuro: Cranial nerves II through XII are grossly intact, no focal motor deficits were noted, sensation to light touch and pinprick is intact, motor exam 5/5 throughout. Psych: Patient is alert and oriented x3, she does not appear anxious or depressed, she does not appear agitated. On 07/23/2024, patient was felt to be stable for discharge back to her intermediate care facility [facility]. Weight / BMI Weight Weight: 209 kg Body Mass Index (BMI) 74.3 ABG / Lab / Microbiology Data 07/22/24 04:16 07/22/24 04:16 Laboratory: Laboratory Results - last 24 hr 07/22/24 19:30: Vancomycin Trough 26.2 H 07/23/24 03:44: Random Vancomycin 18.6 H Microbiology: Microbiology 07/21/24 13:30 Urine Catheter - Catheter Urine Culture - Preliminary ESBL Escherichia coli 07/22/24 15:25 Stool Clostridioides difficile (PCR) - Final 07/21/24 14:26 Mucosa - Nasopharyngeal Coronavirus COVID-19 PCR - Final 07/21/24 22:20 Urine Catheter - [place] Streptococcus pneumoniae Antigen (M - Final 07/21/24 14:28 Mucosa - Nasopharyngeal Respiratory Panel (PCR) - Final Meaningful Use Info Meaningful Use Meaningful Use Diagnoses (Choose all that apply): None applicable Ischemic Stroke Statin Dosing Therapy Reference: STATIN DOSE THERAPY REFERENCE: * Patients > 75 years receive moderate or high dose statin therapy. * Patients 75 years or YOUNGER should receive HIGH intensity statin dose unless contraindicated. You will be required to document reason for non-treatment if statin daily dose does not meet guidelines. HIGH DOSE STATIN THERAPY DAILY Atorvastatin > than or = to 40 mg Rosuvastatin > than or = to 20 mg Amlodipine + Atorvastatin > than or = to 2.5/40 mg Ezetimibe + Simvastatin 10/80 mg Simvastatin 80mg Discharge Plan Admission Admit Date/Time: 07/21/24 16:25 Primary Reason for Your Visit: Acute hypoxic respiratory failure Attending Provider: Shawn Bey Primary Care Provider: Ashwini Oconnell Consulting Providers: Aroldo Rouse; Edgar Scott; Rakesh Coker; Ricardo Benito; Carlos Nation; Alvino Dinero; Miguel Smiley; Sharri Medrano; Haim Naranjo; Shane Freed; Lakia Bates; Sharonda Rodas; Edgar Samuels; Ricky Iniguez; Tl Singh; Dread Perez; Erick Harper; Devin Burciaga Discharge Orders/Prescriptions Prescriptions: New clonazepam 0.5 mg Tablet 0.5 mg PO QHS Qty: 2 0RF tramadol 50 mg Tablet 100 mg PO Q8H PRN (Reason: headache) Qty: 6 0RF Continued omeprazole 20 MG capsule 20 mg PO DAILY Eliquis 5 MG tablet 5 mg PO BID amlodipine 10 MG tablet 10 mg PO QHS atorvastatin 10 mg tablet 10 mg PO QHS furosemide 20 mg tablet 20 mg PO DAILY levocetirizine 5 mg tablet 5 mg PO QHS escitalopram oxalate 10 mg tablet 10 mg PO DAILY Patient Comments: GIVE 1 10MG TABLET AND 1 5MG TABLET TO EQUAL TOTAL DOSE OF 15MG IN THE MORNING escitalopram oxalate 5 mg tablet 5 mg PO DAILY Patient Comments: GIVE 1 10MG TABLET AND 1 5MG TABLET TO EQUAL TOTAL DOSE OF 15MG IN THE MORNING lisinopril 10 mg tablet 10 mg PO DAILY multivitamin [Daily Multi-Vitamin] Tablet 1 tab PO DAILY prazosin 1 mg capsule 2 mg PO QHS quetiapine 100 mg tablet 100 mg PO DAILY azelastine 137 mcg (0.1 %) spray,non-aerosol 1 spray INTRANASAL Q12H Rx Instructions: INSTILL 1 SPRAY INTO EACH NOSTRIL gabapentin 600 mg tablet 600 mg PO BID carboxymethylcellulose sodium [Refresh Liquigel] 1 % drops, liquid gel 2 drp EACH EYE BID sotalol 120 mg tablet 120 mg PO BID buspirone 15 mg tablet 15 mg PO TID loperamide [Anti-Diarrheal (loperamide)] 2 mg tablet 2 mg PO Q12H PRN (Reason: IBS) methocarbamol 750 mg tablet 750 mg PO Q12H PRN (Reason: muscle pain) ondansetron 4 MG tablet 4 mg PO Q8H PRN (Reason: Nausea) acetaminophen 325 mg tablet 650 mg PO Q4H PRN (Reason: pain) Discontinued isosorbide mononitrate 60 MG tablet 120 mg PO DAILY melatonin 5 mg tablet 5 mg PO QHS PRN (Reason: sleep) potassium chloride 10 mEq tablet extended release 10 meq PO DAILY topiramate 25 mg tablet 25 mg PO QHS topiramate 50 mg tablet 50 mg PO DAILY Prostat AWC liquid 30 ml PO BID Rx Instructions: NUTRITIONAL BEVERAGE hydroxyzine HCl 25 mg tablet 25 mg PO Q12H PRN (Reason: itching) tramadol 50 mg tablet 50 mg PO Q4H PRN (Reason: pain) No Action clonazepam 0.5 mg tablet 0.5 mg PO QHS Referrals / Follow Up: Ashwini Oconnell MD [Primary Care Provider] - Disposition Disposition (needs filled in before D/C Order can be placed): NonSkilled NH/Intermed Care Charges/Coding Visit Charges Inpatient E&M: 43236 Disch Hosp >30min
== END 2024-07-23 13:36 | disposition intermediate care facility (04) | DRG 189 ==
LOC: ED 17:13 → ICU 17:25 → PCU 07-22 13:21
PROVIDERS: Admitting Provider Internal Medicine; Emergency Provider Surgery; PCP Internal Medicine; Visit Provider Internal Medicine
DX: J96.01 Acute respiratory failure with hypoxia (principal); G93.49 Other encephalopathy; Z68.45 Body mass index [BMI] 70 or greater, adult; J44.1 Chronic obstructive pulmonary disease with (acute) exacerbation; Z16.12 Extended spectrum beta lactamase (ESBL) resistance; F31.9 Bipolar disorder, unspecified; I10 Essential (primary) hypertension; D64.9 Anemia, unspecified; I48.0 Paroxysmal atrial fibrillation; E66.01 Morbid (severe) obesity due to excess calories; F41.9 Anxiety disorder, unspecified; E78.5 Hyperlipidemia, unspecified; G47.33 Obstructive sleep apnea (adult) (pediatric); F17.290 Nicotine dependence, other tobacco product, uncomplicated; R82.71 Bacteriuria; B96.20 Unspecified Escherichia coli [E. coli] as the cause of diseases classified elsewhere; Z88.1 Allergy status to other antibiotic agents; Z88.0 Allergy status to penicillin; Z79.01 Long term (current) use of anticoagulants; Z98.84 Bariatric surgery status; Z90.49 Acquired absence of other specified parts of digestive tract; Z79.899 Other long term (current) drug therapy
CPT/HCPCS: 36415; 36600; 70450; 71045; 80048; 80053; 80202; 81001; 82550; 82803; 83605; 83735; 83880; 84100; 84484; 85025; 85610; 85730; 87040; 87086; 87088; 87186; 87449; 87493; 87633; 87635; 93005; 94002; 94003; 94640; 94668; 97802; 99285; J7040; J7120; A4216; J0696

== ENCOUNTER → 2024-07-24 05:00 | Outpatient (REF) | payer MEDICARE, MEDICAID, SELFPAY ==
[2024-07-24 09:35] LABS: Absolute Neutrophil Count 6.1 X10^3/uL (2.0-7.7); Basophil# 0.03 X10^3/uL; Basophil% 0.3 % (0-1); Eosinophil# 0.06 X10^3/uL; Eosinophils% 0.7 % (0-5); Hematocrit 37.8 % (37-47); Hemoglobin 11.5 g/dL (12.0-15.0); Mean Corp Hgb Conc 30.4 g/dL (32-36); Mean Corpuscular Hgb 29.6 pg (27.0-32.0); Mean Corpuscular Volume 97.4 fL (81-99); Mean Platelet Vol. 12.3 fl (6.2-12.0); Monocyte% 6.5 % (0-10); NRBC Flagged by Analyzer 0 % (0-5); Neutrophil # 6.11 X10^3/uL (2.7-7.7); Neutrophil % 66.4 % (47-70); Platelet Count 182 K/mm3 (150-450); RBC Distribution Width CV 17.2 % (11.6-14.6); Red Blood Count 3.88 M/mm3 (4.2-5.4); White Blood Count 9.2 K/mm3 (4.4-11.0)
[2024-07-24 10:10] LABS: ALB/GLOB Ratio 0.9 RATIO (0.9-2.4); AST(SGOT) 42 U/L (15-37); Alanine Aminotransfer ALT/SGPT 40 U/L (13-56); Albumin, Serum 3.3 g/dL (3.2-5.0); Alkaline Phosphatase 92 U/L (45-117); Anion Gap 7 (5-15); BUN 17 mg/dL (7-18); BUN/Creat Ratio 20.2 RATIO (10-20); Chloride 112 mmol/L (98-107); Creatinine, Serum 0.84 mg/dL (0.55-1.02); EST Glomerular Filtration Rate 75 mL/min (>60); Est Glom Filt Rate - Afr Amer 91 mL/min (>60); Globulin 3.8 g/dL (2.2-4.2); Glucose 69 mg/dL (74-106); Magnesium 2.5 mg/dL (1.6-2.6); Potassium 2.9 mmol/L (3.5-5.1); Protein, Total 7.1 g/dL (6.4-8.2); Sodium Level 144 mmol/L (136-145)
== END ==
LOC: OLS.SW 05:00
PROVIDERS: PCP Internal Medicine; Visit Provider Internal Medicine
DX: I11.0 Hypertensive heart disease with heart failure (principal); I50.32 Chronic diastolic (congestive) heart failure; I48.91 Unspecified atrial fibrillation; E78.5 Hyperlipidemia, unspecified; E03.9 Hypothyroidism, unspecified
CPT/HCPCS: 36415; 80053; 83735; 85025

== ENCOUNTER 2024-07-25 20:48 | Emergency (ER) | payer MEDICARE, MEDICAID, SELFPAY ==
[2024-07-25 20:48] VITALS: BP 159/85; PULSE 57; RESP 19; TEMP 36.7; O2SAT 97; BMI 74.9
[2024-07-25 21:48] VITALS: BP 148/79; PULSE 58; RESP 14; O2SAT 95
[2024-07-25 22:00] VITALS: BP 148/79; PULSE 57; RESP 14; O2SAT 96
--- NOTE | 2024-07-25 22:22 | CT_ITS ---
EXAM: CT HEAD WITHOUT INTRAVENOUS CONTRAST CLINICAL INDICATION: headache TECHNIQUE: Multiple axial images were obtained of the head without intravenous contrast. CTDIvol = ( 44.99 ) mGy, DLP = ( 893.60 ) mGycm This CT exam was performed using one or more of the following dose reduction techniques: automated exposure control, adjustment of the mA and/or kV according to patient size, and/or use of iterative reconstruction technique. COMPARISON: No relevant prior studies available. FINDINGS: BRAIN AND EXTRA-AXIAL SPACES: Unremarkable. No intra- or extra-axial hemorrhage. No evidence of acute infarct. No intracranial mass or mass effect. There is preservation of the chery/white matter interface. Posterior fossa structures are unremarkable. Ventricles are appropriate for age. No hydrocephalus. Basal cisterns are patent. BONES/JOINTS: Unremarkable. No discrete lytic or blastic abnormalities. SINUSES: Unremarkable as visualized. Clear. MASTOID AIR CELLS: Unremarkable. Clear. ORBITS: Visualized globes, extraocular muscles, optic nerves and retrobulbar fat appear unremarkable. CT/Brain/Head without Contrast IMPRESSION: Negative head/brain CT without intravenous contrast. AIDOC was utilized to assist in identifying pertinent positive findings. Electronically Signed: Danie Tiwari MD at 0:20 EDT ,
[2024-07-25] MEDS: Ketorolac 15 MG/ML Vial IV (22:28)
--- OUTSIDE RECORDS SUMMARY | 2024-07-25 22:28 | XMS RPT_ITS | CCD ---
Author Organization [facility] Care Team Providers Care Prepress Stripper Name Role Phone Dina Wade Primary Care Provider [phone] Kianna JANE, Eliane Primary Care Provider JULIO C MORRISSEY Referring Unavailable ELIANE GONSALEZ Primary Care Unavailable JULIO C MORRISSEY Referring Unavailable ELIANE GONSALEZ Primary Care Unavailable ONUZO, BIJAN Primary Care Unavailable ONUZO, BIJAN Attending Unavailable ONUZO, BIJAN Referring Unavailable ONUZO, BIJAN Primary Care Unavailable ONUZO, BIJAN Attending Unavailable ONUZO, BIJAN Referring Unavailable ONUZO, BIJAN Primary Care Unavailable NIDIA POWELL Attending Unavailable ONUZO, BIJAN Referring Unavailable ONUZO, BIJAN Primary Care Unavailable NIDIA POWELL Attending Unavailable ONUZO, BIJAN Referring Unavailable ONUZO, BIJAN Referring Unavailable ONUZO, BIJAN Attending Unavailable RAH JANE~[id number], RAH hall Unavailable NONE, NONE Consulting Unavailable NONE, NONE Primary Care Unavailable RAH JANE~[id number], RAH hall Unavailable NONE, NONE Consulting Unavailable KIRKHOPE FILM LIBRARY CLERK~[id number], KIRKHOPE KOMAL L Attend ing Unavailable KIRKHOPE FILM LIBRARY CLERK~[id number], KIRKHOPE KOMAL L Admitt ing Unavailable JASWANT FILM LIBRARY CLERK~[id number], JASWANT Bahena Primary Care Unavailable JASWINDER MICHAUD APRN Consulting Unavailab le JASWANT FILM LIBRARY CLERK, JASWINDER C Consulting Unavailab le PHYSICIAN, NOT RECORDED Primary Care Physician U vishal Patel Rounding Nurse, Bj Unavailable Unaborisi arvin Green, Danielle S Unavailable Unavailable LEONCIO JANE, DR SARAH Patel Admitting Unaborisi arvin GUAJARDO DO, DR BELLE Attending Unavailable STUART NYE MD Consulting Unavailable PHYSICIAN, NOT RECORDED Primary Care Unavaila ble LASKOVSKMelba DO, CHASITY Consulting UnavailSOLIS Cowan MD Consulting Unavailable AKBAR, ANANT C Attending Unavailable AKBAR ANANT C Admitting Unavailable AKBAR, ANANT C Primary Care Unavailable LEMASTERS, DEVIN Shon Primary Care Unavailable LEMDEVIN HAMMOND Attending Unavailable LEMDEVIN HAMMOND Admitting Unavailable Consulting Unavailable Referring Unavailable DEVIN COLLIER Primary Care Unavailable LEMDEVIN HAMMOND Attending Unavailable LEMDEVIN HAMMOND Admitting Unavailable Consulting Unavailable Referring Unavailable Consulting Unavailable DEVIN COLLIER Attending Unavailable DEVIN COLLIER Admitting Unavailable Referring Unavailable DEVIN COLLIER Primary Care Unavailable JASWINDER MICHAUD FILM LIBRARY CLERK Attending Unavailable JASWANT, JASWINDER FILM LIBRARY CLERK Admitting Unavailable JASWANT, JASWINDER FILM LIBRARY CLERK Primary Care Unavailable Consulting Unavailable JASWINDER MICHAUD FILM LIBRARY CLERK Attending Unavailable JASWANT, JASWINDER FILM LIBRARY CLERK Admitting Unavailable JASWANT, JASWINDER FILM LIBRARY CLERK Primary Care Unavailable Consulting Unavailable JASWINDER MICHAUD FILM LIBRARY CLERK Attending Unavailable JASWANT, JASWINDER FILM LIBRARY CLERK Admitting Unavailable JASWANT, JASWINDER FILM LIBRARY CLERK Primary Care Unavailable LEHMAN, SPRING T Attending Unavailable LEHMAN, SPRING T Admitting Unavailable Consulting Unavailable LEHMAN, SPRING T Primary Care Unavailable Consulting Unavailable JULIET HERRERA MD Attending Unavailable JULIET HERRERA MD Admitting Unavailable JULIET HERRERA MD Primary Care Unavailable Referring Unavailable DEVIN COLLIER Primary Care Unavailable LEMDEVIN HAMMOND Attending Unavailable LEMMANISH, DEVIN D Admitting Unavailable JASWANT, JASWINDER FILM LIBRARY CLERK Referring Unavailable BAILEY MERCHANT MD Attending Unavailable BAILEY MERCHANT MD Admitting Unavailable JASWANT, JASWINDER FILM LIBRARY CLERK Consulting Unavailable BAILEY MERCHANT MD Primary Care Unavailable PROVIDER, UNKNOWN Consulting Unavailable JIMENA COOLEY MD Attending Unavailable JIMENA COOLEY MD Admitting Unavailable Referring Unavailable JIMENA COOLEY MD Primary Care Unavailable Consulting Unavailable Referring Unavailable RAHAT, MARGARETH Sho Attending Unavailable RAHAT, MARGARETH E Admitting Unavailable RAHAT, MARGARETH E Primary Care Unavailable Consulting Unavailable JASWINDER MICHAUD APRN Consulting Unavailable JASWINDER MICHAUD APRN Referring Unavailable RAHAT, MARGARETH E Primary Care Unavailable RAHAT, MARGARETH E Attending Unavailable RAHAT, MARGARETH E Admitting Unavailable PROVIDER, UNKNOWN Consulting Unavailable JASWINDER MICHAUD FILM LIBRARY CLERK Consulting Unavailable OMLEY, ABHINAV DO Attending Unavailable OMLEY, ABHINAV DO Admitting Unavailable OMLEY, ABHINAV DO Primary Care Unavailable PROVIDER, UNKNOWN Consulting Unavailable Consulting Unavailable RAHAT, MARGARETH E Primary Care Unavailable RAHAT, MARGARETH E Attending Unavailable RAHAT, MARGARETH E Admitting Unavailable Allergies Allergy Classification Reported Allergen(s) Allergy Type Date of Onset Reaction(s) Facility Anti-Epileptic Agents (6 sources) gabapentin Drug Allergy 2 Swelling [facility] (13 sources) gabapentin; Translations: [GABAPENTIN] Drug Allergy 2 Swelling [place], [place] (19 sources) Amoxicillin-Pot Clavulanate; Translations: [AMOXICILLIN-PO T CLAVULANATE] Propensity to adverse reactions to drug 5 Hives, Rash [place], [place] (15 sources) Iodides Propensity to adverse reactions to drug 9 [place], [place] (4 sources) Baclofen; Translations: [BACLOFEN] Drug Allergy 7 Mental Status Change [facility] (4 sources) Contrast media; Translations: [CONTRAST DYE] Drug Allergy 9 [facility] (4 sources) shrimp allergenic extract; Translations: [SHRIMP] Drug Allergy 7 [facility] Work Phone: (4 sources) SUMAtriptan; Translations: [SUMATRIPTAN] Drug Allergy 9 Mental Status Change [facility] Work Phone: (4 sources) valerian root extract; Translations: [VALERIAN ROOT] Drug [facility] Work Phone: (1 source) Amoxicillin; Translations: [amoxicillin] Drug Allergy unspecified [facility] (3 sources) Amoxicillin / Clavulanate; Translations: [amoxicillin-cl avulanate] Drug Allergy Congestion of throat (finding), Weal (disorder) [facility] (1 source) Contrast media Drug allergy Congestion of throat (finding), Weal (disorder) [facility] (1 source) Iodine; Translations: [iodine] Drug Allergy unspecified [facility] (1 source) Amoxicillin Drug Allergy [facility] (1 source) Amoxicillin / Clavulanate Drug Allergy [facility] (1 source) Baclofen Drug Allergy [facility] (1 source) Iodine Drug Allergy [facility] (1 source) Latex; Translations: [LATEX] Propensity to adverse reactions (disorder) [facility] (1 source) CONTRAST MEDIA, IODINE RELATED Drug allergy (disorder) [facility] (1 source) 11/18/17 (-) MRSA SCREEN; Translations: [11/18/17 (-) MRSA SCREEN] Propensity to adverse reactions (disorder) [facility] Medications Current Medications Medication Drug Class(es) Dates Sig (Normalized) Sig (Original) acetaminophen 325 mg oral capsule (3 sources) Start: 12-17-2023 Tylenol 325 mg oral capsule Dose : 650 mg =, Oral, q4h, PRN Pain, scale 1-3, 0 Refill(s) Start Date: 12/17/23 Status: Ordered Start: 12-16-2019 acetaminophen (TYLENOL) tablet 1,000 mg Start: 12-15-2019 End: 12-16-2019 acetaminophen (OFIRMEV) infu scotty 1,000 mg acetaminophen 325 mg / oxyCODONE hydrochloride 5 mg oral tablet (1 source) Opioid Agonist Start: 12-17-2023 End: 12-20-2023 take 1 tablet by mouth every six hours as needed for pain Percocet 5 mg-325 mg oral tablet Dose = 1 tab(s), Oral, q6hr, PRN as needed for pain, X 3 day(s), # 12 tab(s), 0 Refill(s), Post-op pain, 209.8 Start Date: 12/17/23 Stop Date: 12/20/23 Status: Ordered amLODIPine 10 mg oral tablet (5 sources) Dihydropyridine Calcium Channel Bijna Start: 12-06-2023 amLODIPine 10 mg oral tablet Dose : 10 mg = 1 tab(s), Oral, qDay Start Date: 12/06/23 Status: Ordered Start: 11-12-2016 End: 12-20-2019 amLODIPine (NORVASC) 10 mg t ablet TAKE 1 TABLET DAILY 28 tablet 5 12/01/2017 Active Comment on above: TAKE 1 TABLET DAILY apixaban 5 mg oral tablet (20 sources) Factor Xa Inhibitor Start: 12-06-2023 Eliquis 5 mg oral tablet Dose : 5 mg = 1 tab(s), Oral, BID, 209.8 Start Date: 12/06/23 Status: Ordered Start: 01-02-2016 take 1 tablet by annette th twice daily apixaban (ELIQUIS) 5 mg tab tab(s) Take 1 tablet by mouth twice daily. 0 01/02/2016 Active Comment on above: Take 1 tablet by annette th twice daily. ARIPiprazole 2 mg oral tablet (16 sources) Atypical Antipsychotic Start: 12-19-19 take 1 tablet by mouth once daily ARIPiprazole (ABILIFY) 2 MG tablet Take 1 tablet by mouth daily 30 tablet 3 12/21/2019 Active atorvastatin 10 mg oral tablet (1 source) HMG-CoA Reductase Inhibitor Start: 12-06-19 atorvastatin 10 mg oral tablet Dose : 10 mg = 1 tab(s), Oral, qDay Start Date: 12/06/23 Status: Ordered busPIRone hydrochloride 15 mg oral tablet (1 source) Start: 12-06-19 busPIRone 15 mg oral tablet Dose : 15 mg = 1 tab(s), Oral, TID Start Date: 12/06/23 Status: Ordered castor oil 0.788 mg/mg / malian balsam 0.087 mg/mg topical ointment (16 sources) Standardized Chemical Allergen Start: 12-20-19 Balsam [place] Oil (VENELEX) OINT ointment Apply topically every 8 hours 1 Tube 0 12/20/2019 Active Start: 12-15-2019 Venelex ointme nt cephalexin 500 mg oral capsule (2 sources) Cephalosporin Antibacterial Start: 12-19-2019 End: 12-24-2019 take 1 capsule by mouth four times daily cephALEXin (KEFLEX) 500 MG capsule Take 1 capsule by mouth 4 times daily for 4 days 16 capsule 0 12/20/2019 12/24/2019 Active docusate sodium 100 mg oral capsule (1 source) Start: 12-17-2023 Colace 100 mg oral capsule Dose : 100 mg = 1 cap(s), Oral, BID, PRN Constipation, 0 Refill(s) Start Date: 12/17/23 Status: Ordered doxycycline monohydrate 100 mg oral capsule (2 sources) Tetracycline-class Drug Start: 12-19-2019 End: 12-24-2019 take 1 capsule by mouth every twelve hours doxycycline monohydrate (MONODOX) 100 MG capsule Take 1 capsule by mouth every 12 hours for 4 days 8 capsule 0 12/20/2019 12/24/2019 Active ferrous sulfate 325 mg delayed release oral tablet (4 sources) Start: 12-17-2023 End: 01-16-2024 ferrous sulfate 325 mg (65 mg elemental iron) oral delayed release tablet Dose : 325 mg = 1 tab(s), Oral, Every other day, # 15 tab(s), 0 Refill(s), other reason (Rx) Start Date: 12/17/23 Stop Date: 01/16/24 Status: Ordered Start: 05-18-2019 take 1 tablet by annette th twice daily ferrous sulfate 325 mg (65 mg iron) tablet Take 1 tablet by mouth twice daily. 90 tablet 3 05/18/2019 Active Comment on above: Take 1 tablet by annette th twice daily. fluticasone propionate 0.05 mg/actuat metered dose nasal spray (4 sources) Corticosteroid Start: 12-06-19 take 50 ug by inhalation twice daily as needed fluticasone proprionate NASAL 50 mcg/ spray 50 mcg Dose = 1 spray(s), Inhalation, BID, PRN as needed for allergy symptoms Start Date: 12/06/23 Status: Ordered Start: 03-08-2019 take 2 spray(s) nasa l route once daily fluticasone (FLONASE) 50 mcg/actuation nasal spray USE 2 SPRAYS IN EACH NOSTRIL DAILY 1 Bottle 5 03/08/2019 Active Comment on above: USE 2 SPRAYS IN EACH NOSTRIL DAILY gabapentin 300 mg oral capsule (1 source) Anti-epileptic Agent Start: 11-21-2015 gabapentin 300 mg oral capsule Dose : 600 mg = 2 cap(s), Oral, BID, 0 Refill(s) Start Date: 11/21/15 Status: Ordered hydrOXYzine hydrochloride 25 mg oral tablet (5 sources) Antihistamine Start: 12-06-2023 hydrOXYzine hydrochloride 25 mg oral tablet Dose : 25 mg = 1 tab(s), Oral, q8h, PRN as needed for itching Start Date: 12/06/23 Status: Ordered Start: 03-22-2018 take 2 capsules by [facility] three times daily as needed for anxiety hydrOXYzine pamoate (VISTARIL) 50 mg capsule TAKE 2 CAPSULES (100 MG) BY MOUTH THREE TIMES A DAY NEEDED FOR ANXIETY 60 capsule 2 03/22/2018 Active Start: 10-29-2016 End: 12-20-2019 hydrOXYzine (VISTARIL) 50 MG capsule Take 50 mg by mouth 0 10/29/2016 12/20/2019 Discontinued (Stop Taking at Discharge) Comment on above: TAKE 2 CAPSULES (100 MG) BY MOUTH THREE TIMES A DAY NEEDED FOR ANXIETY 24 hr isosorbide mononitrate 60 mg extended release oral tablet (4 sources) Nitrate Vasodilator Start: 12-06-2023 isosorbide mononitrate 60 mg oral tablet, extended release Dose : 60 mg = 1 tab(s), Oral, qAM Start Date: 12/06/23 Status: Ordered Start: 07-14-2019 take 2 tablets by mo [facility] once daily isosorbide mononitrate ER (IMDUR) 60 mg 24 hr tablet Take 2 tablets by mouth once daily. NO further refills from this provider, patient has been instructed to find new PCP 56 tablet 0 07/14/2019 Active Comment on above: Take 2 tablets by mo [facility] once daily. NO further refills from this provider, patient has been instructed to find new PCP lansoprazole 30 mg delayed release oral capsule (15 sources) Proton Pump Inhibitor Start: 017 lansoprazole (PREVACID) 30 MG delayed release capsule TAKE 1 CAPSULE TWICE A DAY 0 11/12/2016 Active levocetirizine dihydrochloride 5 mg oral tablet (1 source) Histamine-1 Receptor Antagonist Start: levocetirizine 5 mg oral tablet Dose : 5 mg = 1 tab(s), Oral, qPM Start Date: 12/06/23 Status: Ordered lidocaine 0.04 mg/mg medicated patch (16 sources) Antiarrhythmic, Amide Local Anesthetic Start: apply 1 dose transdermal route once daily lidocaine 4 % external patch Place 1 patch onto the skin daily 30 patch 0 12/21/2019 Active magnesium hydroxide 80 mg/ml oral suspension (1 source) Start: take 30 mL by mouth once daily as needed for constipation 30 mL, Oral, DAILY PRN, Constipation, Starting [facility] 12/14/19 at 1024 First line therapy for constipation. Robaxin (1 source) Muscle Relaxant Start: Robaxin Dose : 1,000 mg = 2 tab(s), Oral, QID, 0 Refill(s) Start Date: 12/17/23 Status: Ordered miconazole nitrate 0.02 mg/mg topical powder (17 sources) Azole Antifungal Start: miconazole (MICOTIN) 2 % powder Apply topically 2 times daily. 45 g 1 12/20/2019 Active Start: 12-14-2019 End: 12-15-2019 miconazole (MICOTIN) 2 % pow floyd olopatadine 2 mg/ml ophthalmic solution (1 source) Histamine-1 Receptor Inhibitor Start: 12-06-2023 take 1 dose into the eye(s) once daily Pataday 0.2% ophthalmic solution Dose = 1 drop(s), Eyes, both, qDay Start Date: 12/06/23 Status: Ordered omeprazole 20 mg delayed release oral capsule (4 sources) Proton Pump Inhibitor Start: 12-06-2023 omeprazole 20 mg oral delayed release capsule Dose : 20 mg = 1 cap(s), Oral, qDayAC Start Date: 12/06/23 Status: Ordered Start: 03-22-2019 take 1 capsule by mo [facility] once daily omeprazole (PRILOSEC) 20 mg capsule Take 1 capsule by mouth once daily. 28 capsule 5 03/22/2019 Active Comment on above: Take 1 capsule by mo ut[facility] once daily. oxyCODONE hydrochloride 5 mg oral tablet (2 sources) Opioid Agonist Start: 12-20-2019 End: 12-23-2019 take 1 tablet by mouth every six hours as needed for pain oxyCODONE (ROXICODONE) 5 MG immediate release tablet Indications: Wound cellulitis Take 1 tablet by mouth every 6 hours as needed for Pain for up to 3 days. 12 tablet 0 12/20/2019 12/23/2019 Active Start: 12-16-2019 oxyCODONE (TIM ICODONE) immediate release tablet 5 mg pantoprazole 40 mg delayed release oral tablet (1 source) Proton Pump Inhibitor Start: 12-18-2019 pantoprazole (PROTONIX) tablet 40 mg petrolatum 0.41 mg/mg topical ointment (17 sources) Start: 12-20-2019 mineral oil-hydrophilic petrolatum (AQUAPHOR) ointment Start: 12-20-2019 mineral oil-hy drophilic petrolatum (AQUAPHOR) ointment Apply topically as needed. 1 Tube 0 12/20/2019 Active Start: 12-15-2019 End: 12-20-2019 mineral oil-hydrophilic jose olatum (AQUAPHOR) ointment polyethylene glycol 3350 39515 mg powder for oral solution (1 source) Osmotic Laxative Start: 12-17-2023 MiraLax oral powder for reconstitution Oral, BID, 0 Refill(s) Start Date: 12/17/23 Status: Ordered potassium chloride 10 meq extended release oral capsule (20 sources) Start: 12-06-2023 potassium chlo ride 10 mEq oral capsule, extended release Dose : 10 mEq = 1 cap(s), Oral, qDay, PRN Control symptoms Start Date: 12/06/23 Status: Ordered Start: 12-21-2019 take 2 tablets by mo [facility] once daily at breakfast potassium chloride (KLOR-CON M) 20 MEQ extended release tablet Take 2 tablets by mouth daily (with breakfast) 60 tablet 3 12/21/2019 Active Start: 12-17-2019 potassium chlo ride (KLOR-CON M) extended release tablet 40 mEq Start: 12-15-2019 End: 12-16-2019 potassium chloride 10 mEq/10 0 mL IVPB (Peripheral Line) Start: 12-15-2019 End: 12-16-2019 potassium chloride 20 mEq/50 mL IVPB (Central Line) prazosin 1 mg oral capsule (1 source) alpha-Adrenergic Bijan Start: 06-19-2022 Minip ress 1 mg oral capsule Dose : 1 mg = 1 cap(s), Oral, qHS, 0 Refill(s) Start Date: 06/19/22 Status: Ordered Promethazine (1 source) Phenothiazine Start: 12-14-2019 promethazine (PHENERGAN) tablet 12.5 mg QUEtiapine 300 mg oral tablet (2 sources) Atypical Antipsychotic Start: 06-25-2023 QUEtiap ine 300 mg oral tablet Dose : 300 mg = 1 tab(s), Oral, qHS, 0 Refill(s) Start Date: 06/25/23 Status: Ordered Start: 12-16-2019 End: 12-18-2019 QUEtiapine (SEROQUEL) tablet 25 mg 3 ml sodium chloride 9 mg/ml injection (4 sources) Start: 12-14-2019 sodium chlorid e flush 0.9 % injection 10 mL Start: 12-14-2019 10 mL, Intrave nous, EVERY 12 HOURS SCHEDULED (2 times per day), First dose on Shae 12/14/19 at 1045 Start: 12-14-2019 take 10 mL intraveno us route once as needed 10 mL, Intravenous, PRN, Line Care, After every IV line use, Starting Shae 12/14/19 at 1024 sotalol hydrochloride 120 mg oral tablet (4 sources) Antiarrhythmic Start: 12-06-2023 sotalol 120 mg oral tablet Dose : 120 mg = 1 tab(s), Oral, BID Start Date: 12/06/23 Status: Ordered Start: 11-12-2016 take 1 tablet by annette th every twelve hours sotalol (BETAPACE) 80 mg tablet Take 1 tablet by mouth every 12 hours. 60 tablet 1 11/12/2016 Active Comment on above: Take 1 tablet by annette th every 12 hours. stomahesive in petrolatum (ET MIX) (1 source) Start: 12-15-2019 stomahesive in petrolatum (ET MIX) sucralfate 1000 mg oral tablet (15 sources) Aluminum Complex Start: 11-12-2016 sucralfate (CARAFATE) 1 GM tablet TAKE 1 TABLET FOUR TIMES A DAY WITH MEALS AND AT BEDTIME 0 11/12/2016 Active SUMAtriptan 100 mg oral tablet (15 sources) Serotonin-1b and Serotonin-1d Receptor Agonist Start: 09-10-2016 take 1 tablet by mouth twice daily SUMAtriptan (IMITREX) 100 MG tablet Take 1 tablet PO at onset of headache. February repeat dose x1 after 2 hours. Max dose: 2 tablets daily 0 09/10/2016 Active topiramate 25 mg oral capsule (6 sources) Start: 12-06-2023 topiramate 25 mg oral capsule Dose : 50 mg = 2 cap(s), Oral, qAM Start Date: 12/06/23 Status: Ordered Start: 02-05-2022 topiramate 25 mg oral tablet Dose : 25 mg = 1 tab(s), Oral, qPM, 0 Refill(s) Start Date: 02/05/22 Status: Ordered End: 12-20-2019 take 1 tablet by mouth three times daily topiramate (TOPAMAX) 100 mg tablet Take 100 mg by mouth three times daily. 0 Active Comment on above: Take 100 mg by mouth three times daily. Vitamin D3 50 mcg (2000 intl units) oral tablet (1 source) Start: 12-17-2023 Vitamin D3 50 mcg (2000 intl units) oral tablet Dose : 50 mcg = 1 tab(s), Oral, qDay, 0 Refill(s) Start Date: 12/17/23 Status: Ordered Completed/Discontinued Medications Medication Drug Class(es) Dates Sig (Normalized) Sig (Original) 20 ml albumin human, [facility] 250 mg/ml injection (2 sources) Human Serum Albumin Start: 12-15-2019 End: 12-15-2019 albumin human 25 % IV solution 50 g Start: 12-15-2019 End: 12-15-2019 albumin human 25 % IV soluti on [id number] actuat albuterol 0.09 mg/actuat metered dose inhaler (18 sources) beta2-Adrenergic Agonist Start: 06-15-2019 take 2 puff(s) by inhalation every six hours as needed albuterol HFA (PROVENTIL HFA, VENTOLIN HFA) 90 mcg/actuation inhaler Inhale 2 Puffs as instructed every 6 hours as needed. 1 Inhaler 5 06/15/2019 Active Start: 08-18-2016 VENTOLIN HFA 1 08 (90 BASE) MCG/ACT inhaler Start: 08-18-2016 VENTOLIN HFA 1 08 (90 BASE) MCG/ACT inhaler Comment on above: Inhale 2 Puffs as in structed every 6 hours as needed. ALPRAZolam 1 mg oral tablet (3 sources) Benzodiazepine take 1 tablet by mouth every twenty-four hours as needed ALPRAZolam (XANAX) 1 mg tablet Take 1 mg by mouth at bedtime as needed. 0 Active Comment on above: Take 1 mg by mouth a t bedtime as needed. amitriptyline hydrochloride 25 mg oral tablet (3 sources) Tricyclic Antidepressant Start: take 1 tablet by mouth once daily at bedtime amitriptyline (ELAVIL) 25 mg tablet Indications: Infection, skin Take 25 mg by mouth daily at bedtime. 0 06/23/2018 Active Comment on above: Take 25 mg by mouth daily at bedtime. atropine sulfate 0.025 mg / diphenoxylate hydrochloride 2.5 mg oral tablet (3 sources) Anticholinergic, Cholinergic Muscarinic Antagonist, Antidiarrheal Start: take 1 tablet by mouth four times daily as needed diphenoxylate-atropin e (LOMOTIL) 2.5-0.025 mg per tablet Indications: Functional bowel disorder Take 1 tablet by mouth four times daily as needed for up to 30 days. 120 tablet 1 09/11/2020 Active Comment on above: Take 1 tablet by annette four times daily as needed for up to 30 days. bacitracin 0.5 unt/mg topical ointment (3 sources) Start: bacitracin 500 unit/gram ointment Indications: Cellulitis of skin Apply 1 application to affected area twice daily. 28 g 1 11/08/2018 Active Comment on above: Apply 1 application to affected area twice daily. baclofen 10 mg oral tablet (1 source) gamma-Aminobutyric Acid-ergic Agonist Start: 017 End: baclofen (LIORESAL) 10 MG tablet calcium chloride 0.0014 meq/ml / potassium chloride 0.004 meq/ml / sodium chloride 0.103 meq/ml / sodium lactate 0.028 meq/ml injectable solution (1 source) Start: End: lactated ringers infusion calcium gluconate 1 g in dextrose 5 % 100 mL IVPB (1 source) Start: End: calcium gluconate 1 g in dextrose 5 % 100 mL IVPB calcium gluconate 1 g in sodium chloride 0.9 % 100 mL IVPB (1 source) Start: End: calcium gluconate 1 g in sodium chloride 0.9 % 100 mL IVPB ceftaroline fosamil (TEFLARO) 300 mg in dextrose 5 % 50 mL IVPB (1 source) Start: End: ceftaroline fosamil (TEFLARO) 300 mg in dextrose 5 % 50 mL IVPB clonazePAM 0.5 mg oral tablet (1 source) Benzodiazepine Start: KlonoPIN 0.5 mg oral tablet Dose : 0.5 mg = 1 tab(s), Oral, qHS, 0 Refill(s), 195.5 Start Date: 07/15/22 Status: Ordered clotrimazole 10 mg/ml topical cream (3 sources) Azole Antifungal Start: clotrimazole (LOTRIMIN, CLOTRIM) 1 % cream Indications: Candidal intertrigo Apply 1 application to affected area twice daily. 60 g 1 12/12/2018 Active Comment on above: Apply 1 application to affected area twice daily. COMPOUNDED PRESCRIPTION (3 sources) Start: COMPOUNDED PRESCRIPTION Indications: Class 3 severe obesity due to excess calories with serious comorbidity and body mass index (BMI) greater than or equal to 70 in adult ([facility]) Hospital bed with trapeze to be used nightly for morbidly obese patient with BMI >75 Dx: E66.01 1 Device 0 01/27/2019 Active Comment on above: Hospital bed with tr apeze to be used nightly for morbidly obese patient with BMI >75 Dx: E66.01 cyclobenzaprine hydrochloride 5 mg oral tablet (4 sources) Muscle Relaxant Start: End: take 1 tablet by mouth three times daily as needed for muscle spasms cyclobenzaprine (FLEXERIL) 5 mg tablet Indications: Arthritis of right knee Take 1 tablet by mouth three times daily as needed for Muscle Spasm. 30 tablet 0 05/01/2019 Active Comment on above: Take 1 tablet by [facility] three times daily as needed for Muscle Spasm. 100 ml dexmedetomidine 0.004 mg/ml injection (1 source) Central alpha-2 Adrenergic Agonist Start: End: dexmedetomidine (PRECEDEX) 400 mcg in sodium chloride 0.9 % 100 mL infusion dicyclomine hydrochloride 10 mg oral capsule (3 sources) Anticholinergic Start: take 1 capsule by mouth at bedtime dicyclomine (BENTYL) 10 mg capsule Indications: Functional bowel disorder Take 1 capsule by mouth before meals and at bedtime. 120 capsule 5 09/10/2020 Active Comment on above: Take 1 capsule by [facility] before meals and at bedtime. 1 ml diphenhydrAMINE hydrochloride 50 mg/ml cartridge (1 source) Histamine-1 Receptor Antagonist Start: End: diphenhydrAMINE (BENADRYL) injection 25 mg [id number] 0.3 ml EPINEPHrine 1 mg/ml auto-injector (3 sources) alpha-Adrenergic Agonist, beta-Adrenergic Agonist, Catecholamine Start: EPINEPHrine (EPIPEN) 0.3 mg/0.3 mL auto-injector Inject 0.3 mL intramuscularly as needed (For allergic reaction). 2 Each 1 05/03/2019 Active Comment on above: Inject 0.3 mL intram uscularly as needed (For allergic reaction). ergocalciferol 1.25 mg oral capsule (3 sources) Provitamin D2 Compound Start: take 1 capsule by mouth two times weekly ergocalciferol, vitamin D2, (DRISDOL) 50,000 unit capsule Take 1 capsule by mouth twice a week. 24 capsule 3 01/18/2019 Active Comment on above: Take 1 capsule by [facility] twice a week. escitalopram 20 mg oral tablet (1 source) Serotonin Reuptake Inhibitor End: escitalopram (LEXAPRO) 20 MG tablet Take 20 mg by mouth 0 12/20/2019 Discontinued (Stop Taking at Discharge) 4 ml furosemide 10 mg/ml injection (5 sources) Loop Diuretic Start: End: furosemide (LASIX) injection 80 mg Start: 11-13-2016 End: 12-20-2019 take 2 tablets by mouth twice daily furosemide (LASIX) 40 mg tablet Take 2 tablets by mouth twice daily. 112 tablet 5 06/15/2019 Active Comment on above: Take 2 tablets by [facility] twice daily. 12 hr guaiFENesin 600 mg extended release oral tablet (3 sources) Start: 06-09-20 19 take 2 tablets by mouth twice daily as needed guaiFENesin (MUCINEX) 600 mg 12 hr tablet Indications: Acute non-recurrent maxillary sinusitis Take 2 tablets by mouth twice daily as needed for Cold/Allergy Symptoms. 40 tablet 0 06/09/2019 Active Comment on above: Take 2 tablets by [facility] twice daily as needed for Cold/Allergy Symptoms. 250 ml heparin sodium, porcine 100 unt/ml injection (3 sources) Unfractionated Heparin, Anti-coagulant Start: 12-16-19 End: 12-16-19 heparin (porcine) injection 10,000 Units Start: 12-16-2019 End: 12-17-2019 heparin 25,000 units in dext ender 5% 250 mL infusion Start: 12-14-2019 End: 12-16-2019 heparin (porcine) injection 5,000 Units 1 ml HYDROmorphone hydrochloride 1 mg/ml cartridge (1 source) Opioid Agonist Start: 12-16-2019 End: 12-16-2019 HYDROmorphone (DILAUDID) injection 0.5 mg Start: 12-16-2019 End: 12-16-2019 HYDROmorphone (DILAUDID) inj ection 0.5 mg loperamide hydrochloride 2 mg oral capsule (3 sources) Opioid Agonist Start: 01-06-2021 loperamide (IM ODIUM A-D) 2 mg cap(s) Indications: Functional bowel disorder Take 2 capsules, twice a day. 112 capsule 5 01/06/2021 Active Comment on above: Take 2 capsules, twi ce a day. 1 ml LORazepam 2 mg/ml injection (2 sources) Benzodiazepine Start: 12-14-2019 End: 12-14-2019 LORazepam (ATIVAN) injection 1 mg Start: 12-14-2019 End: 12-14-2019 LORazepam (ATIVAN) 2 MG/ML i njection 50 ml magnesium sulfate 40 mg/ml injection (1 source) Start: 12-17-2019 End: 12-17-2019 magnesium sulfate 2 g in 50 mL IVPB premix meclizine hydrochloride 25 mg oral tablet (4 sources) Antiemetic End: 12-20-2019 take 1 tablet by mouth three times daily meclizine (ANTIVERT) 25 mg tab Take 25 mg by mouth three times daily. 0 Active Comment on above: Take 25 mg by mouth three times daily. meropenem (1 source) Penem Antibacterial Start: 12-14-2019 End: 12-15-2019 meropenem (MERREM) 1 g IVPB extended (mini-bag) metoclopramide 10 mg oral tablet (1 source) Dopamine-2 Receptor Antagonist Start: 11-12-2016 End: 12-20-2019 metoclopramide (REGLAN) 10 MG tablet Take 10 mg by mouth 0 11/12/2016 12/20/2019 Discontinued (Stop Taking at Discharge) 2 ml midazolam 1 mg/ml injection (1 source) Benzodiazepine Start: 12-15-2019 End: 12-15-2019 midazolam (VERSED) injection 2 mg Start: 12-15-2019 End: 12-15-2019 midazolam (VERSED) injection 2 mg norepinephrine (LEVOPHED) 16 mg in sodium chloride 0.9 % 250 mL infusion (1 source) Start: 12-14-2019 End: 12-17-2019 2 mcg/min (1.875 mL/hr, roun ded to 1.9 mL/hr), Intravenous, at 1.9 mL/hr, CONTINUOUS, Starting [facility] 12/14/19 at 1045 Titrate to MAP greater than 65 Dose Range: 8 - 12 mcg/min Max Dose: 30 mcg/min Contact physician if max dose does not achieve desired response If rate LESS than 10 mcg/min: Titrate by 2 mcg/min no faster than every 5 minutes to goal If rate GREATER than or equal to 10 mcg/min: Titrate by 5 mcg/min no faster than every 5 minutes to goal When approaching therapeutic goal or weaning off, smaller titration increments of 1 mcg/min no faster than every 5 minutes may be used to maintain goal. norepinephrine- sodium chloride (LEVOPHED) 16-0.9 MG/250ML-% infusion (1 source) Start: 12-14-2019 End: 12-14-2019 norepinephrine-sodium chlori de (LEVOPHED) 16-0.9 MG/250ML-% infusion nystatin 100 unt/mg topical powder (3 sources) P o l y e n e A n t i f u n g a l Start: 05-20-2018 nystatin (NYSTOP) powder Ind ications: Candidal intertrigo Apply 1 application to affected area four times daily. 30 g 1 05/20/2018 Active Comment on above: Apply 1 application to affected area fou r times daily. ondansetron 4 mg disintegrating oral tablet (3 sources) S e r o t o n i n - 3 R e c e p t o r A n t a g o n i s t Start: 01-31-2019 t parisa candelaria e 1 t a b l e t b y m o u t h e v e r y e i g h t h o u r s a s n e e d e d f o r n a u s e a ondansetron orally disintegrating (ZOFRA N ODT) 4 mg disintegrating tablet Indications: Non-intractable vomiting with nausea, unspecified vomiting type Take 1 tablet by mouth every 8 hours as needed for Nausea/Vomiting. 12 tablet 0 01/31/2019 Active Comment on above: Take 1 tablet by mouth every 8 hours as needed for Nausea/Vomiting. piperacillin-ta zobactam (ZOSYN) 2.25 g in dextrose 5 % 50 mL IVPB (mini-bag) (1 source) Start: 12-14-2019 End: 12-14-2019 piperacillin-tazobactam (ZOS YN) 2.25 g in dextrose 5 % 50 mL IVPB (mini-bag) sertraline 50 mg oral tablet (3 sources) S e r o t o n i n R e u p t a k e I n h i b i t o r Start: 10-10-2018 t parisa k e 1 t a b l e t b y m o u t h o n c e d a i l y sertraline (ZOLOFT) 50 mg tablet Take 1 tablet by mouth once daily. 30 tablet 3 10/10/2018 Active Comment on above: Take 1 tablet by mouth once daily. 10 ml sodium bicarbonate 84 mg/ml injection (2 sources) Start: 12-14-2019 End: 12-14-2019 sodium bicarbonate 8.4 % inj ection 50 mEq sodium bicarbonate 150 mEq in dextrose 5 % 1,000 mL infusion (1 source) Start: 12-14-2019 End: 12-15-2019 Intravenous, at 150 mL/hr, C ONTINUOUS, Starting [facility] 12/14/19 at 1045 spironolactone 25 mg oral tablet (3 sources) A l d o s t e r o n e A n t a g o n i s t Start: 06-15-2019 t a k e 1 t a b l e t b y m o u t h o n c e d a i l y spironolactone (ALDACTONE) 25 mg tablet Take 1 tablet by mouth once daily. 28 tablet 5 06/15/2019 Active Comment on above: Take 1 tablet by mouth once daily. 200 ml vancomycin 5 mg/ml injection (1 source) G l y c o p e p t i d e A n t i b a c t e r i a l Start: 12-14-2019 End: 12-14-2019 vancomycin (VANCOCIN) 1000 m g in dextrose 5% 200 mL IVPB Zinc (3 sources) Start: 05-18-2019 t a k e 1 t a b l e t b y m o u t h o n c e d a i l y Zinc 50 mg tab Take 1 tablet by mouth on ce daily. 90 tablet 3 05/18/2019 Active Comment on above: Take 1 tablet by mouth once daily. Problems Active Problems Problem Classification Problem Date Documented Da te Episodic/Chronic Acute posthemorrhagic anemia (1 source) Acute posthemorrhagic anemia; Translations: [Acute posthemorrhagic anemia] Episodic Anxiety disorders (20 sources) Anxiety; Translations: [Anxiety disorder, unspecified] Onset: 09-15-2012 12-15-2019 Chronic Asthma (1 source) Unspecified asthma, uncomplicated; Translations: [Unspecified asthma, uncomplicated] Onset: 08-11-2023 Chronic Cardiac dysrhythmias (20 sources) Atrial fibrillation; Translations: [Unspecified atrial fibrillation] Onset: 12-15-2019 12-15-2019 Chronic Comment on above: paroxysmal. The merline ent is on Sotalol and Eliquis therapy. Cardiac dysrhythmias (1 source) Palpitations 06-20-2022 Episodic Chronic kidney disease (1 source) Chronic kidney disease; Translations: [Chronic kidney disease, stage 3a (HCC)] Onset: 02-23-2023 Chronic ulcer of skin (3 sources) Pressure ulcer of unspecified part of back, stage 2; Translations: [Non-pressure chronic ulcer of back limited to breakdown of skin] Onset: 02-23-2023 Chronic Complications of surgical procedures or medical care (3 sources) Post-surgical malabsorption; Translations: [Postsurgical malabsorption, not elsewhere classified] Onset: 07-24-2010 07-24-2010 Chronic Congestive heart failure; nonhypertensive (3 sources) Chronic diastolic heart failure; Translations: [Chronic diastolic (congestive) heart failure] Onset: 08-24-2023 Chronic Diabetes mellitus without complication (1 source) Type 2 diabetes mellitus without complications; Translations: [Type 2 diabetes mellitus without complications] Onset: 08-23-2023 Chronic Disorders of lipid metabolism (3 sources) Mixed hyperlipidemia; Translations: [Hyperlipidemia, unspecified] Onset: 02-23-2023 Chronic Esophageal disorders (2 sources) Gastro-esophageal reflux disease without esophagitis; Translations: [Gastroesophageal reflux disease] Onset: 02-23-2023 12-12-2020 Chronic Essential hypertension (6 sources) Hypertensive disorder; Translations: [Essential (primary) hypertension] Onset: 03-25-2023 06-30-2017 Chronic Comment on above: Well-controlled on c urrent medication regimen. Continue current treatment. Fracture of lower limb (2 sources) Closed fracture of upper end of tibia; Translations: [Unspecified fracture of upper end of left tibia, initial encounter for closed fracture] Episodic Headache; including migraine (1 source) Migraine without aura, not intractable, without status migrainosus; Translations: [Migraine without aura, not intractable, without status migrainosus] Onset: 02-23-2023 Chronic Headache; including migraine (1 source) Headache; including migraine; Translations: [Headache, unspecified] Onset: 08-11-2023 Hypertension with complications and secondary hypertension (2 sources) Hypertensive heart failure; Translations: [Hypertensive heart disease with heart failure] Onset: 08-24-2023 Chronic Miscellaneous mental health disorders (3 sources) Eating disorder; Translations: [Eating disorder, unspecified] Onset: 12-03-2008 Chronic Mood disorders (20 sources) Depressed bipolar I disorder in partial remission; Translations: [Depressive disorder] Onset: 12-10-2008 12-15-2019 Chronic Comment on above: Schizophrenia with p anic attacks. Mood disorders (3 sources) Bipolar disorder, most recent episode depression; Translations: [Mood disorders] Onset: 07-08-2023 12-17-2019 Nonspecific chest pain (4 sources) Chest pain; Translations: [Other chest pain] Onset: 10-29-2022 Episodic Nutritional deficiencies (3 sources) Vitamin D deficiency; Translations: [Vitamin D deficiency, unspecified] Onset: 05-01-2011 05-01-2011 Chronic Osteoarthritis (1 source) Bilateral post-traumatic osteoarthritis of knee; Translations: [Bilateral post-traumatic osteoarthritis of knee] Onset: 03-25-2023 Chronic Other connective tissue disease (1 source) Fibromyalgia; Translations: [Fibromyalgia] Onset: 06-01-2023 Episodic Other connective tissue disease (3 sources) Tear of left rotator cuff; Translations: [Tear of left rotator cuff] Onset: 07-11-2018 07-11-2018 Other diseases of bladder and urethra (1 source) Overactive bladder; Translations: [Overactive bladder] Onset: 02-23-2023 Chronic Other diseases of veins and lymphatics (2 sources) Lymphedema, not elsewhere classified; Translations: [Lymphedema, not elsewhere classified] Onset: 03-25-2023 Chronic Other diseases of veins and lymphatics (1 source) Venous insufficiency (chronic) (peripheral); Translations: [Venous insufficiency (chronic) (peripheral)] Onset: 05-25-2023 Episodic Other gastrointestinal disorders (3 sources) Malabsorption - iron; Translations: [Intestinal malabsorption, unspecified] Onset: 01-18-2019 01-18-2019 Chronic Other lower respiratory disease (1 source) Dyspnea on exertion 12-12-2020 Episodic Comment on above: appears non cardiac and related to obesity +/- other non cardiac problems. Multifactorial and suspect undiagnosed/untreated sleep apnea and obesity hypoventilation syndrome all contributing to her symptoms. Other nervous system disorders (1 source) Chronic pain syndrome; Translations: [Chronic pain syndrome] Onset: 08-11-2023 Chronic Other nutritional; endocrine; and metabolic disorders (16 sources) Hypocalcemia; Translations: [Hypocalcemia] Onset: 12-15-2019 12-15-2019 Chronic Other nutritional; endocrine; and metabolic disorders (3 sources) Severe obesity; Translations: [Morbid (severe) obesity due to excess calories] Onset: 12-12-2018 12-12-2018 Chronic Other nutritional; endocrine; and metabolic disorders (2 sources) Morbid (severe) obesity due to excess calories; Translations: [Morbid (severe) obesity due to excess calories] Onset: 05-25-2023 Chronic Other nutritional; endocrine; and metabolic disorders (1 source) Body mass index (BMI) 50.0-59.9, adult; Translations: [Body mass index (BMI) 50.0-59.9, adult] Onset: 02-23-2023 Chronic Other nutritional; endocrine; and metabolic disorders (1 source) Body mass index 40+ - severely obese; Translations: [Body mass index (BMI) 60.0-69.9, adult] Chronic Other nutritional; endocrine; and metabolic disorders (2 sources) Morbid obesity; Translations: [Morbid (severe) obesity due to excess calories] Chronic Other nutritional; endocrine; and metabolic disorders (1 source) Body mass index (BMI) 70 or greater, adult; Translations: [Body mass index [BMI] 70 or greater, adult] Onset: 08-11-2023 Chronic Other nutritional; endocrine; and metabolic disorders (1 source) Overweight 12-12-2020 Episodic Prolapse of female genital organs (1 source) Female genital prolapse, unspecified; Translations: [Female genital prolapse, unspecified] Onset: 02-23-2023 Chronic Residual codes; unclassified (1 source) Obstructive sleep apnea syndrome 02-06-2022 Chronic Residual codes; unclassified (1 source) Obstructive sleep apnea (adult) (pediatric); Translations: [Obstructive sleep apnea (adult) (pediatric)] Onset: 08-11-2023 Chronic Thyroid disorders (3 sources) Hypothyroidism, unspecified; Translations: [Hypothyroidism] Onset: 02-23-2023 12-12-2020 Chronic Unclassified (3 sources) Spells; Translations: [Spells] Onset: 12-31-2015 12-31-2015 Unclassified (1 source) Chronic atrial fibrillation, unspecified; Translations: [Chronic atrial fibrillation, unspecified] Onset: 08-11-2023 Past or Other Problems Problem Classification Problem Date Documented Da te Episodic/Chronic Abdominal pain (9 sources) Right upper quadrant pain; Translations: [Right upper quadrant pain] Onset: 06-05-2010 06-05-2010 Episodic Acute and unspecified renal failure (16 sources) Acute renal failure syndrome; Translations: [Acute kidney failure, unspecified] Onset: 12-15-2019 12-15-2019 Episodic Administrative/social admission (3 sources) Patient encounter status; Translations: [Dietary counseling and surveillance] Onset: 07-24-2010 07-24-2010 Episodic Allergic reactions (4 sources) Allergy status to other antibiotic agents status; Translations: [Radiographic dye allergy status] Onset: 07-16-2023 Episodic Bacterial infection; unspecified site (1 source) Personal history of Methicillin resistant Staphylococcus aureus infection; Translations: [Personal history of Methicillin resistant Staphylococcus aureus infection] Onset: 08-11-2023 Episodic Cancer of ovary (1 source) Personal history of malignant neoplasm of ovary; Translations: [Personal history of malignant neoplasm of ovary] Onset: 08-23-2023 Episodic Conditions associated with dizziness or vertigo (3 sources) Dizziness and giddiness; Translations: [Dizziness and giddiness] Onset: 08-23-2023 Episodic Deficiency and other anemia (3 sources) Anemia; Translations: [Anemia, unspecified] Onset: 01-18-2019 01-18-2019 Episodic Diabetes mellitus without complication (1 source) Prediabetes; Translations: [Prediabetes] Onset: 02-23-2023 Episodic Fluid and electrolyte disorders (20 sources) Metabolic acidosis; Translations: [Hypokalemia] Onset: 12-15-2019 12-15-2019 Episodic Immunizations and screening for infectious disease (1 source) Encounter for immunization; Translations: [Encounter for immunization] Onset: 08-11-2023 Episodic Malaise and fatigue (4 sources) Other fatigue; Translations: [Weakness] Onset: 08-18-2023 Episodic Nausea and vomiting (1 source) Nausea; Translations: [Nausea] Onset: 07-24-2023 Episodic Other aftercare (1 source) Other termite treater helper (current) drug therapy; Translations: [Other group home (current) drug therapy] Onset: 08-23-2023 Episodic Other aftercare (1 source) emt intermediate (current) use of oral hypoglycemic drugs; Translations: [emt intermediate (current) use of oral hypoglycemic drugs] Onset: 08-23-2023 Episodic Other aftercare (1 source) emt intermediate (current) use of anticoagulants; Translations: [shelter (current) use of anticoagulants] Onset: 08-23-2023 Episodic Other aftercare (1 source) shelter (current) use of opiate analgesic; Translations: [emt intermediate (current) use of opiate analgesic] Onset: 08-18-2023 Episodic Other and unspecified benign neoplasm (3 sources) Lipoma of skin and subcutaneous tissue of neck; Translations: [Benign lipomatous neoplasm of skin and subcutaneous tissue of head, face and neck] Onset: 05-01-2011 05-01-2011 Episodic Other connective tissue disease (12 sources) Tear of left rotator cuff; Translations: [Unspecified rotator cuff tear or rupture of left shoulder, not specified as traumatic] Onset: 07-11-2018 07-11-2018 Episodic Other connective tissue disease (3 sources) Muscle pain; Translations: [Myalgia and myositis] Onset: 06-05-2010 06-05-2010 Episodic Other connective tissue disease (3 sources) Pain in right leg; Translations: [Pain in right leg] Onset: 07-24-2023 Episodic Other connective tissue disease (1 source) Other specified soft tissue disorders; Translations: [Other specified soft tissue disorders] Onset: 07-16-2023 Episodic Other gastrointestinal disorders (3 sources) Diarrhea; Translations: [Diarrhea, unspecified] Onset: 03-09-2018 03-09-2018 Episodic Other gastrointestinal disorders (3 sources) Altered bowel function; Translations: [Other specified symptoms and signs involving the digestive system and abdomen] Onset: 03-09-2018 03-09-2018 Episodic Other gastrointestinal disorders (3 sources) H/O: GIT by-pass; Translations: [Bariatric surgery status] Onset: 01-18-2019 01-18-2019 Episodic Other gastrointestinal disorders (1 source) Bariatric surgery status; Translations: [Bariatric surgery status] Onset: 08-23-2023 Episodic Other lower respiratory disease (1 source) Shortness of breath; Translations: [Shortness of breath] Onset: 08-18-2023 Episodic Other lower respiratory disease (3 sources) Dyspnea, unspecified; Translations: [Dyspnea, unspecified] Onset: 08-15-2023 Episodic Other non-traumatic joint disorders (3 sources) Effusion, left hand; Translations: [Effusion, left hand] Onset: 07-16-2023 Episodic Other non-traumatic joint disorders (1 source) Effusion, right hand; Translations: [Effusion, right hand] Onset: 07-16-2023 Episodic Other non-traumatic joint disorders (1 source) Effusion, left foot; Translations: [Effusion, left foot] Onset: 07-16-2023 Episodic Other non-traumatic joint disorders (1 source) Effusion, right foot; Translations: [Effusion, right foot] Onset: 07-16-2023 Episodic Other skin disorders (3 sources) Other skin changes; Translations: [Other skin changes] Onset: 08-09-2023 Episodic Residual codes; unclassified (3 sources) Pain; Translations: [Pain, unspecified] Onset: 06-27-2009 Episodic Residual codes; unclassified (1 source) Acquired absence of other specified parts of digestive tract; Translations: [Acquired absence of other specified parts of digestive tract] Onset: 08-23-2023 Episodic Residual codes; unclassified (1 source) Acquired absence of both cervix and uterus; Translations: [Acquired absence of both cervix and uterus] Onset: 08-23-2023 Episodic Residual codes; unclassified (1 source) Acquired absence of other genital organ(s); Translations: [Acquired absence of other genital organ(s)] Onset: 08-09-2023 Episodic Shock (16 sources) Hypovolemic shock; Translations: [Hypovolemic shock] Onset: 12-14-2019 12-20-2019 Episodic Skin and subcutaneous tissue infections (19 sources) Wound cellulitis; Translations: [Cellulitis, unspecified] Onset: 12-20-2019 12-20-2019 Episodic Results Test Name Value Interpretation Reference Range Facility HIP COMPLETE LT MIN 2 VIEWS W/PELVISon 06-14-2024 HIP COMPLETE LT MIN 2 VIEWS W/PELVIS [address] [address] Patient: QUINTEN YARBROUGH Phone#: : 1970 Age: 54 Gender: F Pt. Type: ER Account: [id number] Location: 052 Ordering: [facility] Exam Date: 06/14/2024/14:15 Family Phys: JASWINDER MICHAUD Charge Code: 921190 Physician: [place] Order #: [id number] Dose#: PROCEDURE: X-RAY HIP LT COMPLETE MIN 2 VIEWS W/PELVIS COMPARISON: [facility], XR, HIP COMPLETE LT, 12/07/2018, 5:00. INDICATIONS: Trauma. FINDINGS: BONES: Normal. No significant arthropathy or acute abnormality. SOFT TISSUES: Negative. No visible soft tissue swelling. EFFUSION: None visible. OTHER: Negative. CONCLUSION: 1. There is no evidence of acute abnormality. Dictated by: July Tavera MD on 06/14/2024 at 14:53 Approved by: July Tavera MD on 06/14/2024 at 14:54 Normal [facility] KNEE 2 VIEWS LTon 06-14-2024 KNEE 2 VIEWS LT [place] [address] Patient: QUINTEN YARBROUGH Phone#: : 1970 Age: 54 Gender: F Pt. Type: ER Account: [id number] Location: 052 Ordering: [facility] Exam Date: 06/14/2024/14:29 Family Phys: JASWINDER MICHAUD Charge Code: [id number] Physician: [place] Order #: [id number] Dose#: PROCEDURE: X-RAY KNEE LT 2 VIEWS COMPARISON: [facility], XR, KNEE 2 VIEWS LT, 12/06/2023, 8:35. INDICATIONS: Trauma. FINDINGS: BONES: Surgical hardware is present transfixing the site of prior proximal tibial fracture. Acute abnormality is not identified. SOFT TISSUES: Negative. No visible soft tissue swelling. EFFUSION: None visible. OTHER: Negative. CONCLUSION: 1. Surgical fixation at the site of proximal tibial fracture. No other acute abnormality is identified. Dictated by: July Tavera MD on 06/14/2024 at 14:55 Approved by: July Tavera MD on 06/14/2024 at 14:57 Normal [facility] KNEE 2 VIEWS RTon 06-14-2024 KNEE 2 VIEWS RT [address] [address] Patient: QUINTEN YARBROUGH Phone#: : 1970 Age: 54 Gender: F Pt. Type: ER Account: [id number] Location: 052 Ordering: MARGARETH GIANG Exam Date: 06/14/2024/14:30 Family Phys: JASWINDER MICHAUD Charge Code: [id number] Physician: [place] Order #: [id number] Dose#: PROCEDURE: X-RAY KNEE RT 2 VIEWS COMPARISON: [facility], XR, KNEE COMPLETE RT MIN 4 VIEWS, 06/09/2023, 2:17. INDICATIONS: Trauma. FINDINGS: BONES: Degenerative changes are present at the knee. There is depression of the lateral tibial plateau similar to prior exam. Acute abnormality is not identified. Medial compartment narrowing is present. Osteophytes are present at the medial femoral condyle and tibial plateau. SOFT TISSUES: Negative. No visible soft tissue swelling. EFFUSION: None visible. OTHER: Negative. CONCLUSION: 1. Degenerative changes of the knee are present. Allowing for difference in technique there has been no interval change. Dictated by: July Tavera MD on 06/14/2024 at 14:57 Approved by: July Tavera MD on 06/14/2024 at 14:59 Normal [facility] SHOULDER COMPLETE RTon 06-14 SHOULDER COMPLETE RT [address] [address] Patient: QUINTEN YARBROUGH Phone#: : 1970 Age: 54 Gender: F Pt. Type: ER Account: [id number] Location: 052 Ordering: MARGARETH RAHAT Exam Date: 06/14/2024/14:24 Family Phys: JASWINDER MICHAUD Charge Code: 705944 Physician: [place] Order #: [id number] Dose#: PROCEDURE: X-RAY SHOULDER COMPLETE RT MIN 2 VIEWS COMPARISON: [facility], XR, SHOULDER RT, 03/18/2022, 16:50. INDICATIONS: Trauma. FINDINGS: BONES: Degenerative changes present at the acromioclavicular joint. SOFT TISSUES: Negative. No visible soft tissue swelling. EFFUSION: None visible. OTHER: Negative. CONCLUSION: 1. There is no evidence of acute abnormality. Dictated by: July Tavera MD on 06/14/2024 at 14:54 Approved by: July Tavera MD on 06/14/2024 at 14:55 Normal [facility] .GFRon 12-17-2023 GFR >60 Normal [facility] ([place]) Comment on above: Result Comment: GFR Population mean for , Non- Americans Ages 20-29 = 116 mL/min/1.73 sq.m. Ages 30-39 = 107 mL/min/1.73 sq.m. Ages 40-49 = 99 mL/min/1.73 sq.m. Ages 50-59 = 93 mL/min/1.73 sq.m. Ages 60-69 = 85 mL/min/1.73 sq.m. Ages 70+ = 75 mL/min/1.73 sq.m. Chronic Kidney Disease: Less than 60 mL/min/1.73 square meters End Stage Renal Disease: Less than 15 mL/min/1.73 square meters Performed By: #### G FR, MORPH, CMP, CBC, DIFF ####[place] [address] GFR Non- 60 ml/min/1.73sqm Normal [facility] ([place]) Comment on above: Result Comment: GFR Population mean for , Non- Americans Ages 20-29 = 116 mL/min/1.73 sq.m. Ages 30-39 = 107 mL/min/1.73 sq.m. Ages 40-49 = 99 mL/min/1.73 sq.m. Ages 50-59 = 93 mL/min/1.73 sq.m. Ages 60-69 = 85 mL/min/1.73 sq.m. Ages 70+ = 75 mL/min/1.73 sq.m. Chronic Kidney Disease: Less than 60 mL/min/1.73 square meters End Stage Renal Disease: Less than 15 mL/min/1.73 square meters Performed By: #### G FR, MORPH, CMP, CBC, DIFF ####[address] [address] .Manual Diffon 12-17-2023 Bands 1.0 % Normal 0.0-5.0 [facility] ([place]) Comment on above: Performed By: #### G FR, MORPH, CMP, CBC, DIFF ####[address] [address] Basophil %, Manual 1.0 % Normal 0.0-2.5 [facility] ([place]) Comment on above: Performed By: #### G FR, MORPH, CMP, CBC, DIFF ####[place] [address] Basophil, Abs Manual 0.1 10 3/mcL Normal 0.0-0.3 [facility] ([place]) Comment on above: Performed By: #### G FR, MORPH, CMP, CBC, DIFF ####[place] [address] Eosinophil %, Manual 2.0 % Normal 0.0-6.0 [facility] ([place]) Comment on above: Performed By: #### G FR, MORPH, CMP, CBC, DIFF ####[address] [address] Eosinophil, Abs Manual 0.1 10 3/mcL Normal 0.0-0.7 [facility] ([place]) Comment on above: Performed By: #### G FR, MORPH, CMP, CBC, DIFF ####[place] [address] Lymphocyte %, Manual 28.0 % Normal 20.0-40.0 [facility] ([place]) Comment on above: Performed By: #### G FR, MORPH, CMP, CBC, DIFF ####[place] [address] Lymphocyte, Abs Manual 2.3 10 3/mcL Normal 0.9-4.3 [facility] ([place]) Comment on above: Performed By: #### G FR, MORPH, CMP, CBC, DIFF ####[address] [address] Monocyte %, Manual 7.0 % Normal 2.0-13.0 [facility] ([place]) Comment on above: Performed By: #### G FR, MORPH, CMP, CBC, DIFF ####[address] [address] Monocyte, Abs Manual 0.6 10 3/mcL Normal 0.1-1.4 [facility] ([place]) Comment on above: Performed By: #### G FR, MORPH, CMP, CBC, DIFF ####[place] [address] Myelocyte 1.0 % Normal [facility] ([place]) Comment on above: Performed By: #### G FR, MORPH, CMP, CBC, DIFF ####[place] [address] Neutrophil %, Manual 60.0 % Normal 50.0-75.0 [facility] ([place]) Comment on above: Performed By: #### G FR, MORPH, CMP, CBC, DIFF ####[address] [address] Neutrophil, Abs Manual 4.8 10 3/mcL Normal 2.3-8.1 [facility] ([place]) Comment on above: Performed By: #### G FR, MORPH, CMP, CBC, DIFF ####[place] [address] Nucleated RBC 0.0 /100 WBC Normal [facility] ([place]) Comment on above: Performed By: #### G FR, MORPH, CMP, CBC, DIFF ####[place] [address] .Morphon 12-17-2023 Anisocytosis Ql (Bld) 1+ Normal [facility] ([place]) Comment on above: Performed By: #### G FR, MORPH, CMP, CBC, DIFF ####[address] [address] Platelet Estimate Normal Normal [facility] ([place]) Comment on above: Performed By: #### G FR, MORPH, CMP, CBC, DIFF ####[place] [address] Polychrom 1+ Normal [facility] ([place]) Comment on above: Performed By: #### G FR, MORPH, CMP, CBC, DIFF ####[place] [address] CBCon 12-17-2023 Erythrocyte distribution width (RBC) [Ratio] 15.6 % High 11.5-15.5 [facility] ([place]) Comment on above: Performed By: #### G FR, MORPH, CMP, CBC, DIFF ####[place] [address] Hematocrit (Bld) [Volume fraction] 22.3 % Low 34.0-46.0 [facility] ([place]) Comment on above: Performed By: #### G FR, MORPH, CMP, CBC, DIFF ####[place] [address] Hgb 7.6 G/dL Low 12.0-16.0 [facility] ([place]) Comment on above: Performed By: #### G FR, MORPH, CMP, CBC, DIFF ####[place] [address] MCH (RBC) [Entitic mass] 30.8 pg Normal 27.0-33.0 [facility] ([place]) Comment on above: Performed By: #### G FR, MORPH, CMP, CBC, DIFF ####[place] [address] MCHC 33.8 G/dL Normal 32.0-36.0 [facility] ([place]) Comment on above: Performed By: #### G FR, MORPH, CMP, CBC, DIFF ####[place] [address] MCV (RBC) [Entitic vol] 91.0 fL Normal 80.0-99.0 [facility] ([place]) Comment on above: Performed By: #### G FR, MORPH, CMP, CBC, DIFF ####[address] [address] Platelet 308 10 3/mcL Normal 150-450 [facility] ([place]) Comment on above: Performed By: #### G FR, MORPH, CMP, CBC, DIFF ####[address] [address] Platelet mean volume (Bld) [Entitic vol] 9.1 fL Normal 6.6-10.5 [facility] ([place]) Comment on above: Performed By: #### G FR, MORPH, CMP, CBC, DIFF ####[address] [address] RBC 2.46 10 6/mcL Low 4.10-5.30 [facility] ([place]) Comment on above: Performed By: #### G FR, MORPH, CMP, CBC, DIFF ####[address] [address] WBC 8.1 10 3/mcL Normal 4.5-10.8 [facility] ([place]) Comment on above: Performed By: #### G FR, MORPH, CMP, CBC, DIFF ####[place] [address] CMPon 12-17-2023 Albumin Level 2.4 G/dL Low 3.2-4.8 [facility] ([place]) Comment on above: Performed By: #### G FR, MORPH, CMP, CBC, DIFF ####[place] [address] Albumin/Globulin [Mass ratio] 0.9 {ratio} Normal 0.9-1.6 [facility] ([place]) Comment on above: Performed By: #### G FR, MORPH, CMP, CBC, DIFF ####[address] [address] ALP [Catalytic activity/Vol] 131 U/L High 38-126 [facility] ([place]) Comment on above: Performed By: #### G FR, MORPH, CMP, CBC, DIFF ####[address] [address] ALT/SGPT <8 Low 10-49 [facility] ([place]) Comment on above: Performed By: #### G FR, MORPH, CMP, CBC, DIFF ####[address] [address] AST [Catalytic activity/Vol] 23 U/L Normal 8-34 [facility] ([place]) Comment on above: Performed By: #### G FR, MORPH, CMP, CBC, DIFF ####[address] [address] Bili Total 0.30 mg/dL Normal 0.20-1.20 [facility] ([place]) Comment on above: Result Comment: Use of this assay is not recommended for patients undergoing treatment with eltrombopag due to the potential for falsely elevated results. Performed By: #### G FR, MORPH, CMP, CBC, DIFF ####[address] [address] BUN/Creatinine Ratio 27.8 ratio High 10.0-22.0 [facility] ([place]) Comment on above: Performed By: #### G FR, MORPH, CMP, CBC, DIFF ####[address] [address] Calcium [Mass/Vol] 8.2 mg/dL Low 8.7-10.4 [facility] ([place]) Comment on above: Performed By: #### G FR, MORPH, CMP, CBC, DIFF ####[address] [address] Chloride [Moles/Vol] 107 mmol/L Normal 98-110 [facility] ([place]) Comment on above: Performed By: #### G FR, MORPH, CMP, CBC, DIFF ####[address] [address] CO2 [Moles/Vol] 29 mmol/L Normal 22-32 [facility] ([place]) Comment on above: Performed By: #### G FR, MORPH, CMP, CBC, DIFF ####[address] [address] Creatinine [Mass/Vol] 0.97 mg/dL Normal 0.50-1.20 [facility] ([place]) Comment on above: Performed By: #### G FR, MORPH, CMP, CBC, DIFF ####[address] [address] Electrolyte Balance 4.0 mEq/L Normal 4.0-15.0 [facility] ([place]) Comment on above: Performed By: #### G FR, MORPH, CMP, CBC, DIFF ####[address] [address] Globulin 2.7 G/dL Normal 1.5-3.8 [facility] ([place]) Comment on above: Performed By: #### G FR, MORPH, CMP, CBC, DIFF ####[address] [address] Glucose [Mass/Vol] 96 mg/dL Normal 70-110 [facility] ([place]) Comment on above: Performed By: #### G FR, MORPH, CMP, CBC, DIFF ####[place] [address] Potassium [Moles/Vol] 4.0 mmol/L Normal 3.5-5.0 [facility] ([place]) Comment on above: Performed By: #### G FR, MORPH, CMP, CBC, DIFF ####[place] [address] Sodium [Moles/Vol] 140 mmol/L Normal 136-145 [facility] ([place]) Comment on above: Performed By: #### G FR, MORPH, CMP, CBC, DIFF ####[place] [address] Total Protein 5.1 G/dL Low 5.7-8.2 [facility] ([place]) Comment on above: Result Comment: No te - New Reference Range in effect 20 Performed By: #### G FR, MORPH, CMP, CBC, DIFF ####[place] [address] Urea nitrogen [Mass/Vol] 27.0 mg/dL High 8.0-22.0 [facility] ([place]) Comment on above: Performed By: #### G FR, MORPH, CMP, CBC, DIFF ####[place] [address] LABORATORYOrdered By: SYSTEM SYSTEM on 12-17-2023 Albumin BCP dye [Mass/Vol] 2.4 G/dL Low 3.2 - 4.8 G/dL AH ADM SS Albumin/Globulin [Mass ratio] 0.9 {ratio} Normal 0.9 - 1.6 ratio AH ADM SS ALP [Catalytic activity/Vol] 131 U/L High 38 - 126 U/L AH ADM SS ALT No additional P-5'-P [Catalytic activity/Vol] U/L 1 Low 10 - 49 U/L AH ADM SS Anisocytosis Ql (Bld) 1+ *NA* (12/17/23 4:45 AM) Invalid Interpretation Code AH Workflow SS AST [Catalytic activity/Vol] 23 U/L Normal 8 - 34 U/L AH ADM SS Band form neutrophils/100 WBC (Bld) 1.0 % Normal 0.0 - 5.0 % AH Workflow SS Basophils (Bld) [#/Vol] 0.1 103/mcL Normal 0.0 - 0.3 10^3/mcL AH Workflow SS Basophils/100 WBC (Bld) 1.0 % Normal 0.0 - 2.5 % AH Workflow SS Bilirubin [Mass/Vol] 0.30 mg/dL Normal 0.20 - 1.20 mg/dL AH ADM SS Comment on above: Interpretive Data: U se of this assay is not recommended for patients undergoing treatment with eltrombopag due to the potential for falsely elevated results. Calcium [Mass/Vol] 8.2 mg/dL Low 8.7 - 10. 4 mg/dL AH ADM SS Chloride [Moles/Vol] 107 mmol/L Normal 98 - 11 0 mEq/L AH ADM SS CO2 [Moles/Vol] 29 mmol/L Normal 22 - 32 mEq/L AH ADM SS Creatinine [Mass/Vol] 0.97 mg/dL Normal 0.50 - 1.20 mg/dL AH ADM SS Electrolyte Balance 4.0 mEq/L Normal 4.0 - 15 .0 mEq/L AH ADM SS Eosinophils (Bld) [#/Vol] 0.1 103/mcL Normal 0.0 - 0.7 10^3/mcL AH Workflow SS Eosinophils/100 WBC (Bld) 2.0 % Normal 0.0 - 6.0 % AH Workflow SS Erythrocyte distribution width (RBC) [Ratio] 15.6 % High 11.5 - 15.5 % Workflow SS GFR/1.73 sq M.predicted among blacks MDRD (S/P/Bld) [Vol rate/Area] ml/min/1.73sqm Invalid Interpretation Code [employer] [facility] Comment on above: Interpretive Data: GFR Population mean for , Non- Americans Ages 20-29 = 116 mL/min/1.73 sq.m. Ages 30-39 = 107 mL/min/1.73 sq.m. Ages 40-49 = 99 mL/min/1.73 sq.m. Ages 50-59 = 93 mL/min/1.73 sq.m. Ages 60-69 = 85 mL/min/1.73 sq.m. Ages 70+ = 75 mL/min/1.73 sq.m. Chronic Kidney Disease: Less than 60 mL/min/1.73 square meters End Stage Renal Disease: Less than 15 mL/min/1.73 square meters GFR/1.73 sq M.predicted among non-blacks MDRD (S/P/Bld) [Vol rate/Area] 60 ml/min/1.73sqm Invalid Interpretation Code [employer] [facility] Comment on above: Interpretive Data: GFR Population mean for , Non- Americans Ages 20-29 = 116 mL/min/1.73 sq.m. Ages 30-39 = 107 mL/min/1.73 sq.m. Ages 40-49 = 99 mL/min/1.73 sq.m. Ages 50-59 = 93 mL/min/1.73 sq.m. Ages 60-69 = 85 mL/min/1.73 sq.m. Ages 70+ = 75 mL/min/1.73 sq.m. Chronic Kidney Disease: Less than 60 mL/min/1.73 square meters End Stage Renal Disease: Less than 15 mL/min/1.73 square meters Globulin 2.7 G/dL Normal 1.5 - 3.8 G/dL ADM SS Glucose [Mass/Vol] 96 mg/dL Normal 70 - 110 mg/dL ADM SS Hematocrit (Bld) [Volume fraction] 22.3 % Low 34.0 - 46.0 % Workflow SS Hemoglobin (Bld) [Mass/Vol] 7.6 G/dL Low 12.0 - 16.0 G/dL AH Workflow SS Lymphocytes (Bld) [#/Vol] 2.3 103/mcL Normal 0.9 - 4.3 10^3/mcL AH Workflow SS Lymphocytes/100 WBC (Bld) 28.0 % Normal 20.0 - 40.0 % AH Workflow SS MCH (RBC) [Entitic mass] 30.8 pg Normal 27.0 - 33.0 pg AH Workflow SS MCHC 33.8 G/dL Normal 32.0 - 36.0 G/dL AH Workflow SS MCV (RBC) [Entitic vol] 91.0 fL Normal 80.0 - 99.0 fL AH Workflow SS Monocytes (Bld) [#/Vol] 0.6 103/mcL Normal 0.1 - 1.4 10^3/mcL AH Workflow SS Monocytes/100 WBC (Bld) 7.0 % Normal 2.0 - 13.0 % AH Workflow SS Myelocytes/100 WBC (Bld) 1.0 % Invalid Interpretation Code AH Workflow SS Neutrophils (Bld) [#/Vol] 4.8 103/mcL Normal 2.3 - 8.1 10^3/mcL AH Workflow SS Neutrophils/100 WBC (Bld) 60.0 % Normal 50.0 - 75.0 % AH Workflow SS Nucleated RBC 0.0 /100 WBC Invalid Interpretation Code AH Workflow SS Platelet mean volume (Bld) [Entitic vol] 9.1 fL Normal 6.6 - 10.5 fL AH Workflow SS Platelets (Bld) [#/Vol] 308 103/mcL Normal 150 - 450 10^3/mcL AH Workflow SS Platelets LM Ql (Bld) Normal *NA* (12/17/23 4:45 AM) Invalid Interpretation Code AH Workflow SS Polychromasia LM Ql (Bld) 1+ *NA* (12/17/23 4:45 AM) Invalid Interpretation Code AH Workflow SS Potassium [Moles/Vol] 4.0 mmol/L Normal 3.5 - 5.0 mEq/L AH ADM SS Protein [Mass/Vol] 5.1 G/dL Low 5.7 - 8.2 G/dL AH ADM SS Comment on above: Interpretive Data: * *Note - New Reference Range in effect 20 RBC (Bld) [#/Vol] 2.46 106/mcL Low 4.10 - 5.3 0 10^6/mcL AH Workflow SS Sodium [Moles/Vol] 140 mmol/L Normal 136 - 145 mEq/L AH ADM SS Urea nitrogen [Mass/Vol] 27.0 mg/dL High 8.0 - 22.0 mg/dL AH ADM SS Urea nitrogen/Creatinine [Mass ratio] 27.8 ratio High 10.0 - 22.0 ratio AH ADM SS WBC (Bld) [#/Vol] 8.1 103/mcL Normal 4.5 - 10.8 10^3/mcL AH Workflow SS .GFRon 12-16-2023 GFR >60 Normal [facility] ([place]) Comment on above: Result Comment: GFR Population mean for , Non- Americans Ages 20-29 = 116 mL/min/1.73 sq.m. Ages 30-39 = 107 mL/min/1.73 sq.m. Ages 40-49 = 99 mL/min/1.73 sq.m. Ages 50-59 = 93 mL/min/1.73 sq.m. Ages 60-69 = 85 mL/min/1.73 sq.m. Ages 70+ = 75 mL/min/1.73 sq.m. Chronic Kidney Disease: Less than 60 mL/min/1.73 square meters End Stage Renal Disease: Less than 15 mL/min/1.73 square meters Performed By: #### M G, DAVID, ANEU, GFR, CBC, CMP #### [place] [address] GFR Non- 55 ml/min/1.73sqm Normal [facility] ([place]) Comment on above: Result Comment: GFR Population mean for , Non- Americans Ages 20-29 = 116 mL/min/1.73 sq.m. Ages 30-39 = 107 mL/min/1.73 sq.m. Ages 40-49 = 99 mL/min/1.73 sq.m. Ages 50-59 = 93 mL/min/1.73 sq.m. Ages 60-69 = 85 mL/min/1.73 sq.m. Ages 70+ = 75 mL/min/1.73 sq.m. Chronic Kidney Disease: Less than 60 mL/min/1.73 square meters End Stage Renal Disease: Less than 15 mL/min/1.73 square meters Performed By: #### M G, ADIFF, ANEU, GFR, CBC, CMP #### [address] [address] .Manual Diffon 12-16-2023 Basophil %, Manual 0.0 % Normal 0.0-2.5 [facility] ([place]) Comment on above: Performed By: #### M G, ADIFF, ANEU, GFR, CBC, CMP #### [place] [address] Basophil, Abs Manual 0.0 10 3/mcL Normal 0.0-0.3 [facility] ([place]) Comment on above: Performed By: #### M G, ADIFF, ANEU, GFR, CBC, CMP #### [place] [address] Eosinophil %, Manual 4.0 % Normal 0.0-6.0 [facility] ([place]) Comment on above: Performed By: #### M G, ADIFF, ANEU, GFR, CBC, CMP #### [place] [address] Eosinophil, Abs Manual 0.3 10 3/mcL Normal 0.0-0.7 [facility] ([place]) Comment on above: Performed By: #### M G, ADIFF, ANEU, GFR, CBC, CMP #### [place] [address] Lymphocyte %, Manual 25.0 % Normal 20.0-40.0 [facility] ([place]) Comment on above: Performed By: #### M G, ADIFF, ANEU, GFR, CBC, CMP #### [place] [address] Lymphocyte, Abs Manual 1.9 10 3/mcL Normal 0.9-4.3 [facility] ([place]) Comment on above: Performed By: #### M G, ADIFF, ANEU, GFR, CBC, CMP #### [place] [address] Metamyelocyte 1.0 % Normal [facility] ([place]) Comment on above: Performed By: #### M G, ADIFF, ANEU, GFR, CBC, CMP #### [address] [address] Monocyte %, Manual 10.0 % Normal 2.0-13.0 [facility] ([place]) Comment on above: Performed By: #### M G, ADIFF, ANEU, GFR, CBC, CMP #### [address] [address] Monocyte, Abs Manual 0.8 10 3/mcL Normal 0.1-1.4 [facility] ([place]) Comment on above: Performed By: #### M G, ADIFF, ANEU, GFR, CBC, CMP #### [address] [address] Neutrophil %, Manual 60.0 % Normal 50.0-75.0 [facility] ([place]) Comment on above: Performed By: #### M G, ADIFF, ANEU, GFR, CBC, CMP #### [address] [address] Neutrophil, Abs Manual 4.5 10 3/mcL Normal 2.3-8.1 [facility] ([place]) Comment on above: Performed By: #### M G, ADIFF, ANEU, GFR, CBC, CMP #### [place] [address] Nucleated RBC 0.0 /100 WBC Normal [facility] ([place]) Comment on above: Performed By: #### M G, ADIFF, ANEU, GFR, CBC, CMP #### [address] [address] .Morphon 12-16-2023 Anisocytosis Ql (Bld) 1+ Normal [facility] ([place]) Comment on above: Performed By: #### M G, ADIFF, ANEU, GFR, CBC, CMP #### [address] [address] Platelet Estimate Normal Normal [facility] ([place]) Comment on above: Performed By: #### M G, ADIFF, ANEU, GFR, CBC, CMP #### [address] [address] BMPon 12-16-2023 BUN/Creatinine Ratio 28.6 ratio High 10.0-22.0 [facility] ([place]) Comment on above: Performed By: #### M G, ADIFF, ANEU, GFR, CBC, CMP #### [address] [address] Calcium [Mass/Vol] 7.8 mg/dL Low 8.7-10.4 [facility] ([place]) Comment on above: Performed By: #### M G, ADIFF, ANEU, GFR, CBC, CMP #### [address] [address] Chloride [Moles/Vol] 106 mmol/L Normal 98-110 [facility] ([place]) Comment on above: Performed By: #### M G, ADIFF, ANEU, GFR, CBC, CMP #### [address] [address] CO2 [Moles/Vol] 27 mmol/L Normal 22-32 [facility] ([place]) Comment on above: Performed By: #### M Rafael, ADIFF, ANEU, GFR, CBC, CMP #### [address] [address] Creatinine [Mass/Vol] 1.05 mg/dL Normal 0.50-1.20 [facility] ([place]) Comment on above: Performed By: #### M G, ADIFF, ANEU, GFR, CBC, CMP #### [address] [address] Electrolyte Balance -1.0 mEq/L Low 4.0-15.0 [facility] ([place]) Comment on above: Performed By: #### M G, ADIFF, ANEU, GFR, CBC, CMP #### [address] [address] Glucose [Mass/Vol] 98 mg/dL Normal 70-110 [facility] ([place]) Comment on above: Performed By: #### M G, ADIFF, ANEU, GFR, CBC, CMP #### [address] [address] Potassium [Moles/Vol] 3.8 mmol/L Normal 3.5-5.0 [facility] ([place]) Comment on above: Performed By: #### M G, ADIFF, ANEU, GFR, CBC, CMP #### [place] [address] Sodium [Moles/Vol] 132 mmol/L Low 136-145 [facility] ([place]) Comment on above: Performed By: #### M G, ADIFF, ANEU, GFR, CBC, CMP #### [place] [address] Urea nitrogen [Mass/Vol] 30.0 mg/dL High 8.0-22.0 [facility] ([place]) Comment on above: Performed By: #### M G, ADIFF, ANEU, GFR, CBC, CMP #### [place] [address] CBCon 12-16-2023 Erythrocyte distribution width (RBC) [Ratio] 15.8 % High 11.5-15.5 [facility] ([place]) Comment on above: Performed By: #### M G, ADIFF, ANEU, GFR, CBC, CMP #### [place] [address] Hematocrit (Bld) [Volume fraction] 22.5 % Low 34.0-46.0 [facility] ([place]) Comment on above: Performed By: #### M G, ADIFF, ANEU, GFR, CBC, CMP #### [place] [address] Hgb 7.4 G/dL Low 12.0-16.0 [facility] ([place]) Comment on above: Performed By: #### M G, ADIFF, ANEU, GFR, CBC, CMP #### [place] [address] MCH (RBC) [Entitic mass] 30.1 pg Normal 27.0-33.0 [facility] ([place]) Comment on above: Performed By: #### M G, ADIFF, ANEU, GFR, CBC, CMP #### [place] [address] MCHC 33.1 G/dL Normal 32.0-36.0 [facility] ([place]) Comment on above: Performed By: #### M G, ADIFF, ANEU, GFR, CBC, CMP #### [place] [address] MCV (RBC) [Entitic vol] 90.9 fL Normal 80.0-99.0 [facility] ([place]) Comment on above: Performed By: #### M G, ADIFF, ANEU, GFR, CBC, CMP #### [place] [address] Platelet 252 10 3/mcL Normal 150-450 [facility] ([place]) Comment on above: Performed By: #### M G, ADIFF, ANEU, GFR, CBC, CMP #### [place] [address] Platelet mean volume (Bld) [Entitic vol] 9.2 fL Normal 6.6-10.5 [facility] ([place]) Comment on above: Performed By: #### M G, ADIFF, ANEU, GFR, CBC, CMP #### [place] [address] RBC 2.48 10 6/mcL Low 4.10-5.30 [facility] ([place]) Comment on above: Performed By: #### M G, ADIFF, ANEU, GFR, CBC, CMP #### [place] [address] WBC 7.6 10 3/mcL Normal 4.5-10.8 [facility] ([place]) Comment on above: Performed By: #### M G, ADIFF, ANEU, GFR, CBC, CMP #### [place] [address] Melissa 12-16-2023 Ferritin [Mass/Vol] 145.5 ng/mL Normal 8.0-252.0 [facility] ([place]) Comment on above: Performed By: #### M G, ADIFF, ANEU, GFR, CBC, CMP #### [place] [address] FESon 12-16-2023 Iron [Mass/Vol] 18 ug/dL Low 50-170 [facility] ([place]) Comment on above: Performed By: #### M G, ADIFF, ANEU, GFR, CBC, CMP #### [address] [address] Iron Sat 8 % Normal [facility] ([place]) Comment on above: Performed By: #### M G, ADIFF, ANEU, GFR, CBC, CMP #### [address] [address] TIBC 229 mcg/dL Low 250-500 [facility] ([place]) Comment on above: Performed By: #### M G, ADIFF, ANEU, GFR, CBC, CMP #### [address] [address] LABORATORYOrdered By: SYSTEM SYSTEM on 12-16-2023 25-hydroxyvitamin D3 [Mass/Vol] 18.2 ng/mL Invalid Interpretation Code ADM SS Comment on above: Interpretive Data: I nterpretive Values Based on Total 25(OH)D: Severe Deficiency <20 ng/mL Mild to Moderate Deficiency 20-30 ng/mL Optimum Levels 30-100 ng/mL Toxicity Possible >100 ng/mL Ferritin [Mass/Vol] 145.5 ng/mL Normal 8.0 - 25 2.0 ng/mL ADM SS Iron [Mass/Vol] 18 ug/dL Low 50 - 170 mcg/dL ADM SS Iron binding capacity [Mass/Vol] 229 mcg/dL Low 250 - 500 mcg/dL ADM SS Iron saturation [Mass fraction] 8 % Invalid Interpretation Code ADM SS Anisocytosis Ql (Bld) 1+ *NA* (12/16/23 4:33 AM) Invalid Interpretation Code Workflow SS Basophils (Bld) [#/Vol] 0.0 103/mcL Normal 0.0 - 0.3 10^3/mcL Workflow SS Basophils/100 WBC (Bld) 0.0 % Normal 0.0 - 2.5 % Workflow SS Calcium [Mass/Vol] 7.8 mg/dL Low 8.7 - 10. 4 mg/dL ADM SS Chloride [Moles/Vol] 106 mmol/L Normal 98 - 11 0 mEq/L ADM SS CO2 [Moles/Vol] 27 mmol/L Normal 22 - 32 mEq/L ADM SS Creatinine [Mass/Vol] 1.05 mg/dL Normal 0.50 - 1.20 mg/dL AH ADM SS Electrolyte Balance -1.0 mEq/L Low 4.0 - 15 .0 mEq/L AH ADM SS Eosinophils (Bld) [#/Vol] 0.3 103/mcL Normal 0.0 - 0.7 10^3/mcL AH Workflow SS Eosinophils/100 WBC (Bld) 4.0 % Normal 0.0 - 6.0 % AH Workflow SS Erythrocyte distribution width (RBC) [Ratio] 15.8 % High 11.5 - 15.5 % AH Workflow SS GFR/1.73 sq M.predicted among blacks MDRD (S/P/Bld) [Vol rate/Area] ml/min/1.73sqm Invalid Interpretation Code [facility] S Comment on above: Interpretive Data: GFR Population mean for , Non- Americans Ages 20-29 = 116 mL/min/1.73 sq.m. Ages 30-39 = 107 mL/min/1.73 sq.m. Ages 40-49 = 99 mL/min/1.73 sq.m. Ages 50-59 = 93 mL/min/1.73 sq.m. Ages 60-69 = 85 mL/min/1.73 sq.m. Ages 70+ = 75 mL/min/1.73 sq.m. Chronic Kidney Disease: Less than 60 mL/min/1.73 square meters End Stage Renal Disease: Less than 15 mL/min/1.73 square meters GFR/1.73 sq M.predicted among non-blacks MDRD (S/P/Bld) [Vol rate/Area] 55 ml/min/1.73sqm Invalid Interpretation Code [facility] Chemistry S Comment on above: Interpretive Data: GFR Population mean for , Non- Americans Ages 20-29 = 116 mL/min/1.73 sq.m. Ages 30-39 = 107 mL/min/1.73 sq.m. Ages 40-49 = 99 mL/min/1.73 sq.m. Ages 50-59 = 93 mL/min/1.73 sq.m. Ages 60-69 = 85 mL/min/1.73 sq.m. Ages 70+ = 75 mL/min/1.73 sq.m. Chronic Kidney Disease: Less than 60 mL/min/1.73 square meters End Stage Renal Disease: Less than 15 mL/min/1.73 square meters Glucose [Mass/Vol] 98 mg/dL Normal 70 - 110 mg/dL AH ADM SS Hematocrit (Bld) [Volume fraction] 22.5 % Low 34.0 - 46.0 % AH Workflow SS Hemoglobin (Bld) [Mass/Vol] 7.4 G/dL Low 12.0 - 16.0 G/dL AH Workflow SS Lymphocytes (Bld) [#/Vol] 1.9 103/mcL Normal 0.9 - 4.3 10^3/mcL AH Workflow SS Lymphocytes/100 WBC (Bld) 25.0 % Normal 20.0 - 40.0 % AH Workflow SS MCH (RBC) [Entitic mass] 30.1 pg Normal 27.0 - 33.0 pg AH Workflow SS MCHC 33.1 G/dL Normal 32.0 - 36.0 G/dL AH Workflow SS MCV (RBC) [Entitic vol] 90.9 fL Normal 80.0 - 99.0 fL AH Workflow SS Metamyelocytes/100 WBC (Bld) 1.0 % Invalid Interpretation Code AH Workflow SS Monocytes (Bld) [#/Vol] 0.8 103/mcL Normal 0.1 - 1.4 10^3/mcL AH Workflow SS Monocytes/100 WBC (Bld) 10.0 % Normal 2.0 - 13.0 % AH Workflow SS Neutrophils (Bld) [#/Vol] 4.5 103/mcL Normal 2.3 - 8.1 10^3/mcL AH Workflow SS Neutrophils/100 WBC (Bld) 60.0 % Normal 50.0 - 75.0 % AH Workflow SS Nucleated RBC 0.0 /100 WBC Invalid Interpretation Code AH Workflow SS Platelet mean volume (Bld) [Entitic vol] 9.2 fL Normal 6.6 - 10.5 fL AH Workflow SS Platelets (Bld) [#/Vol] 252 103/mcL Normal 150 - 450 10^3/mcL AH Workflow SS Platelets LM Ql (Bld) Normal *NA* (12/16/23 4:33 AM) Invalid Interpretation Code AH Workflow SS Potassium [Moles/Vol] 3.8 mmol/L Normal 3.5 - 5.0 mEq/L AH ADM SS RBC (Bld) [#/Vol] 2.48 106/mcL Low 4.10 - 5.3 0 10^6/mcL AH Workflow SS Sodium [Moles/Vol] 132 mmol/L Low 136 - 145 mEq/L AH ADM SS Urea nitrogen [Mass/Vol] 30.0 mg/dL High 8.0 - 22.0 mg/dL AH ADM SS Urea nitrogen/Creatinine [Mass ratio] 28.6 ratio High 10.0 - 22.0 ratio AH ADM SS WBC (Bld) [#/Vol] 7.6 103/mcL Normal 4.5 - 10.8 10^3/mcL AH Workflow SS VIDHon 12-16-2023 Vit. D 25-Hydroxy 18.2 ng/mL Normal [facility] ([place]) Comment on above: Result Comment: Inte rpretive Values Based on Total 25(OH)D: Severe Deficiency <20 ng/mL Mild to Moderate Deficiency 20-30 ng/mL Optimum Levels 30-100 ng/mL Toxicity Possible >100 ng/mL Performed By: #### Anupam Hall, ADIFF, ANEU, GFR, CBC, CMP #### [address] [address] .Auto Diffon 12-15-2023 Basophil, Absolute 0.1 10 3/mcL Normal 0.0-0.3 [facility] ([place]) Comment on above: Performed By: #### Anupam Hall ADIFF, ANEU, GFR, CBC, CMP #### [address] [address] Basophils/100 WBC (Bld) 1.4 % Normal 0.0-2.5 [facility] ([place]) Comment on above: Performed By: #### Anupam Hall, ADMOHIT, ANEU, GFR, CBC, CMP #### [address] [address] Eosinophil, Absolute 0.2 10 3/mcL Normal 0.0-0.7 [facility] ([place]) Comment on above: Performed By: #### Anupam Hall, ADIFF, ANEU, GFR, CBC, CMP #### [address] [address] Eosinophils/100 WBC (Bld) 3.0 % Normal 0.0-6.0 [facility] ([place]) Comment on above: Performed By: #### Anupam G, ADIFF, ANEU, GFR, CBC, CMP #### [address] [address] Lymphocyte, Absolute 2.0 10 3/mcL Normal 0.9-4.3 [facility] ([place]) Comment on above: Performed By: #### M G, ADIFF, ANEU, GFR, CBC, CMP #### [address] [address] Lymphocytes/100 WBC (Bld) 26.6 % Normal 20.0-40.0 [facility] ([place]) Comment on above: Performed By: #### M G, ADIFF, ANEU, GFR, CBC, CMP #### [address] [address] Monocyte, Absolute 0.8 10 3/mcL Normal 0.1-1.4 [facility] ([place]) Comment on above: Performed By: #### M G, ADIFF, ANEU, GFR, CBC, CMP #### [address] [address] Monocytes/100 WBC (Bld) 11.1 % Normal 2.0-13.0 [facility] ([place]) Comment on above: Performed By: #### M G, ADIFF, ANEU, GFR, CBC, CMP #### [address] [address] Neutrophils/100 WBC (Bld) 57.9 % Normal 50.0-75.0 [facility] ([place]) Comment on above: Performed By: #### M G, ADIFF, ANEU, GFR, CBC, CMP #### [address] [address] .GFRon 12-15-2023 GFR >60 Normal [facility] ([place]) Comment on above: Result Comment: GFR Population mean for , Non- Americans Ages 20-29 = 116 mL/min/1.73 sq.m. Ages 30-39 = 107 mL/min/1.73 sq.m. Ages 40-49 = 99 mL/min/1.73 sq.m. Ages 50-59 = 93 mL/min/1.73 sq.m. Ages 60-69 = 85 mL/min/1.73 sq.m. Ages 70+ = 75 mL/min/1.73 sq.m. Chronic Kidney Disease: Less than 60 mL/min/1.73 square meters End Stage Renal Disease: Less than 15 mL/min/1.73 square meters Performed By: #### M G, ADIFF, ANEU, GFR, CBC, CMP #### [address] [address] GFR Non- >60 Normal [facility] ([place]) Comment on above: Result Comment: GFR Population mean for , Non- Americans Ages 20-29 = 116 mL/min/1.73 sq.m. Ages 30-39 = 107 mL/min/1.73 sq.m. Ages 40-49 = 99 mL/min/1.73 sq.m. Ages 50-59 = 93 mL/min/1.73 sq.m. Ages 60-69 = 85 mL/min/1.73 sq.m. Ages 70+ = 75 mL/min/1.73 sq.m. Chronic Kidney Disease: Less than 60 mL/min/1.73 square meters End Stage Renal Disease: Less than 15 mL/min/1.73 square meters Performed By: #### M G, ADIFF, ANEU, GFR, CBC, CMP #### [address] [address] .NEUABSon 12-15-2023 Neutrophil, Absolute 4.3 10 3/mcL Normal 2.3-8.1 [facility] ([place]) Comment on above: Performed By: #### M Rafael, ADIFF, ANEU, GFR, CBC, CMP #### [address] [address] CBCon 12-15-2023 Erythrocyte distribution width (RBC) [Ratio] 15.6 % High 11.5-15.5 [facility] ([place]) Comment on above: Performed By: #### M G, ADIFF, ANEU, GFR, CBC, CMP #### [address] [address] Hematocrit (Bld) [Volume fraction] 21.9 % Low 34.0-46.0 [facility] ([place]) Comment on above: Performed By: #### M G, ADIFF, ANEU, GFR, CBC, CMP #### [place] [address] Hgb 7.3 G/dL Low 12.0-16.0 [facility] ([place]) Comment on above: Performed By: #### M G, ADIFF, ANEU, GFR, CBC, CMP #### [place] [address] MCH (RBC) [Entitic mass] 30.3 pg Normal 27.0-33.0 [facility] ([place]) Comment on above: Performed By: #### M G, ADIFF, ANEU, GFR, CBC, CMP #### [place] [address] MCHC 33.3 G/dL Normal 32.0-36.0 [facility] ([place]) Comment on above: Performed By: #### M G, ADIFF, ANEU, GFR, CBC, CMP #### [place] [address] MCV (RBC) [Entitic vol] 91.2 fL Normal 80.0-99.0 [facility] ([place]) Comment on above: Performed By: #### M G, ADIFF, ANEU, GFR, CBC, CMP #### [place] [address] Platelet 236 10 3/mcL Normal 150-450 [facility] ([place]) Comment on above: Performed By: #### M G, ADIFF, ANEU, GFR, CBC, CMP #### [place] [address] Platelet mean volume (Bld) [Entitic vol] 9.1 fL Normal 6.6-10.5 [facility] ([place]) Comment on above: Performed By: #### M G, ADIFF, ANEU, GFR, CBC, CMP #### [place] [address] RBC 2.41 10 6/mcL Low 4.10-5.30 [facility] ([place]) Comment on above: Performed By: #### M G, ADIFF, ANEU, GFR, CBC, CMP #### [address] [address] WBC 7.4 10 3/mcL Normal 4.5-10.8 [facility] ([place]) Comment on above: Performed By: #### M G, ADIFF, ANEU, GFR, CBC, CMP #### [address] [address] CMPon 12-15-2023 Albumin Level 2.3 G/dL Low 3.2-4.8 [facility] ([place]) Comment on above: Performed By: #### M G, ADIFF, ANEU, GFR, CBC, CMP #### [place] [address] Albumin/Globulin [Mass ratio] 0.9 {ratio} Normal 0.9-1.6 [facility] ([place]) Comment on above: Performed By: #### M G, ADIFF, ANEU, GFR, CBC, CMP #### [place] [address] ALP [Catalytic activity/Vol] 134 U/L High 38-126 [facility] ([place]) Comment on above: Performed By: #### M G, ADIFF, ANEU, GFR, CBC, CMP #### [place] [address] ALT [Catalytic activity/Vol] 59 U/L High 10-49 [facility] ([place]) Comment on above: Performed By: #### M G, ADIFF, ANEU, GFR, CBC, CMP #### [place] [id number] AST [Catalytic activity/Vol] 68 U/L High 8-34 [facility] ([place]) Comment on above: Performed By: #### M G, ADIFF, ANEU, GFR, CBC, CMP #### [place] [address] Bili Total 0.30 mg/dL Normal 0.20-1.20 [facility] ([place]) Comment on above: Result Comment: Use of this assay is not recommended for patients undergoing treatment with eltrombopag due to the potential for falsely elevated results. Performed By: #### M G, ADIFF, ANEU, GFR, CBC, CMP #### [address] [address] BUN/Creatinine Ratio 24.5 ratio High 10.0-22.0 [facility] ([place]) Comment on above: Performed By: #### M G, ADIFF, ANEU, GFR, CBC, CMP #### [address] [address] Calcium [Mass/Vol] 8.1 mg/dL Low 8.7-10.4 [facility] ([place]) Comment on above: Performed By: #### M G, ADIFF, ANEU, GFR, CBC, CMP #### [address] [address] Chloride [Moles/Vol] 104 mmol/L Normal 98-110 [facility] ([place]) Comment on above: Performed By: #### M G, ADIFF, ANEU, GFR, CBC, CMP #### [place] [phone] CO2 [Moles/Vol] 29 mmol/L Normal 22-32 [facility] ([place]) Comment on above: Performed By: #### M G, ADIFF, ANEU, GFR, CBC, CMP #### [place] [address] Creatinine [Mass/Vol] 0.94 mg/dL Normal 0.50-1.20 [facility] ([place]) Comment on above: Performed By: #### M G, ADIFF, ANEU, GFR, CBC, CMP #### [place] [address] Electrolyte Balance 3.0 mEq/L Low 4.0-15.0 [facility] ([place]) Comment on above: Performed By: #### M G, ADIFF, ANEU, GFR, CBC, CMP #### [place] [id number] Globulin 2.5 G/dL Normal 1.5-3.8 [facility] ([place]) Comment on above: Performed By: #### M G, ADIFF, ANEU, GFR, CBC, CMP #### [address] [address] Glucose [Mass/Vol] 107 mg/dL Normal 70-110 [facility] ([place]) Comment on above: Performed By: #### M Rafael, ADIFF, ANEU, GFR, CBC, CMP #### [address] [address] Potassium [Moles/Vol] 4.2 mmol/L Normal 3.5-5.0 [facility] ([place]) Comment on above: Performed By: #### M Rafael, ADIFF, ANEU, GFR, CBC, CMP #### [address] [address] Sodium [Moles/Vol] 136 mmol/L Normal 136-145 [facility] ([place]) Comment on above: Performed By: #### M G, ADIFF, ANEU, GFR, CBC, CMP #### [address] [address] Total Protein 4.8 G/dL Low 5.7-8.2 [facility] ([place]) Comment on above: Result Comment: No te - New Reference Range in effect 20 Performed By: #### M Rafael, ADIFF, ANEU, GFR, CBC, CMP #### [address] [address] Urea nitrogen [Mass/Vol] 23.0 mg/dL High 8.0-22.0 [facility] ([place]) Comment on above: Performed By: #### M Rafael, ADIFF, ANEU, GFR, CBC, CMP #### [address] [address] on 12-15-2023 Hematocrit (Bld) [Volume fraction] 23.1 % Low 34.0-46.0 [facility] ([place]) Comment on above: Performed By: #### M G, ADIFF, ANEU, GFR, CBC, CMP #### [address] [address] Hgb 7.9 G/dL Low 12.0-16.0 [facility] ([place]) Comment on above: Performed By: #### Anupam G, ADIFF, ANEU, GFR, CBC, CMP #### [place] [phone] [place] [address] LABORATORYOrdered By: SYSTEM SYSTEM on 12-15-2023 Hematocrit (Bld) [Volume fraction] 23.1 % Low 34.0 - 46.0 % AH Workflow SS Hemoglobin (Bld) [Mass/Vol] 7.9 G/dL Low 12.0 - 16.0 G/dL AH Workflow SS Albumin BCP dye [Mass/Vol] 2.3 G/dL Low 3.2 - 4.8 G/dL AH ADM SS Albumin/Globulin [Mass ratio] 0.9 {ratio} Normal 0.9 - 1.6 ratio ADM SS ALP [Catalytic activity/Vol] 134 U/L High 38 - 126 U/L AH ADM SS ALT No additional P-5'-P [Catalytic activity/Vol] 59 U/L High 10 - 49 U/L AH ADM SS AST [Catalytic activity/Vol] 68 U/L High 8 - 34 U/L AH ADM SS Basophils (Bld) [#/Vol] 0.1 103/mcL Normal 0.0 - 0.3 10^3/mcL AH Workflow SS Basophils/100 WBC (Bld) 1.4 % Normal 0.0 - 2.5 % AH Workflow SS Bilirubin [Mass/Vol] 0.30 mg/dL Normal 0.20 - 1.20 mg/dL AH ADM SS Comment on above: Interpretive Data: U se of this assay is not recommended for patients undergoing treatment with eltrombopag due to the potential for falsely elevated results. Calcium [Mass/Vol] 8.1 mg/dL Low 8.7 - 10. 4 mg/dL AH ADM SS Chloride [Moles/Vol] 104 mmol/L Normal 98 - 11 0 mEq/L ADM SS CO2 [Moles/Vol] 29 mmol/L Normal 22 - 32 mEq/L AH ADM SS Creatinine [Mass/Vol] 0.94 mg/dL Normal 0.50 - 1.20 mg/dL AH ADM SS Electrolyte Balance 3.0 mEq/L Low 4.0 - 15 .0 mEq/L AH ADM SS Eosinophils (Bld) [#/Vol] 0.2 103/mcL Normal 0.0 - 0.7 10^3/mcL AH Workflow SS Eosinophils/100 WBC (Bld) 3.0 % Normal 0.0 - 6.0 % Workflow SS Erythrocyte distribution width (RBC) [Ratio] 15.6 % High 11.5 - 15.5 % Workflow SS GFR/1.73 sq M.predicted among blacks MDRD (S/P/Bld) [Vol rate/Area] ml/min/1.73sqm Invalid Interpretation Code [employer] S Comment on above: Interpretive Data: GFR Population mean for , Non- Americans Ages 20-29 = 116 mL/min/1.73 sq.m. Ages 30-39 = 107 mL/min/1.73 sq.m. Ages 40-49 = 99 mL/min/1.73 sq.m. Ages 50-59 = 93 mL/min/1.73 sq.m. Ages 60-69 = 85 mL/min/1.73 sq.m. Ages 70+ = 75 mL/min/1.73 sq.m. Chronic Kidney Disease: Less than 60 mL/min/1.73 square meters End Stage Renal Disease: Less than 15 mL/min/1.73 square meters GFR/1.73 sq M.predicted among non-blacks MDRD (S/P/Bld) [Vol rate/Area] ml/min/1.73sqm Invalid Interpretation Code [employer] S Comment on above: Interpretive Data: GFR Population mean for , Non- Americans Ages 20-29 = 116 mL/min/1.73 sq.m. Ages 30-39 = 107 mL/min/1.73 sq.m. Ages 40-49 = 99 mL/min/1.73 sq.m. Ages 50-59 = 93 mL/min/1.73 sq.m. Ages 60-69 = 85 mL/min/1.73 sq.m. Ages 70+ = 75 mL/min/1.73 sq.m. Chronic Kidney Disease: Less than 60 mL/min/1.73 square meters End Stage Renal Disease: Less than 15 mL/min/1.73 square meters Globulin 2.5 G/dL Normal 1.5 - 3.8 G/dL ADM SS Glucose [Mass/Vol] 107 mg/dL Normal 70 - 110 mg/dL ADM SS Lymphocytes (Bld) [#/Vol] 2.0 103/mcL Normal 0.9 - 4.3 10^3/mcL AH Workflow SS Lymphocytes/100 WBC (Bld) 26.6 % Normal 20.0 - 40.0 % AH Workflow SS MCH (RBC) [Entitic mass] 30.3 pg Normal 27.0 - 33.0 pg AH Workflow SS MCHC 33.3 G/dL Normal 32.0 - 36.0 G/dL AH Workflow SS MCV (RBC) [Entitic vol] 91.2 fL Normal 80.0 - 99.0 fL AH Workflow SS Monocytes (Bld) [#/Vol] 0.8 103/mcL Normal 0.1 - 1.4 10^3/mcL AH Workflow SS Monocytes/100 WBC (Bld) 11.1 % Normal 2.0 - 13.0 % AH Workflow SS Neutrophils (Bld) [#/Vol] 4.3 103/mcL Normal 2.3 - 8.1 10^3/mcL AH Workflow SS Neutrophils/100 WBC (Bld) 57.9 % Normal 50.0 - 75.0 % AH Workflow SS Platelet mean volume (Bld) [Entitic vol] 9.1 fL Normal 6.6 - 10.5 fL AH Workflow SS Platelets (Bld) [#/Vol] 236 103/mcL Normal 150 - 450 10^3/mcL AH Workflow SS Potassium [Moles/Vol] 4.2 mmol/L Normal 3.5 - 5.0 mEq/L AH ADM SS Protein [Mass/Vol] 4.8 G/dL Low 5.7 - 8.2 G/dL AH ADM SS Comment on above: Interpretive Data: * *Note - New Reference Range in effect 20 RBC (Bld) [#/Vol] 2.41 106/mcL Low 4.10 - 5.3 0 10^6/mcL AH Workflow SS Sodium [Moles/Vol] 136 mmol/L Normal 136 - 145 mEq/L AH ADM SS Urea nitrogen [Mass/Vol] 23.0 mg/dL High 8.0 - 22.0 mg/dL AH ADM SS Urea nitrogen/Creatinine [Mass ratio] 24.5 ratio High 10.0 - 22.0 ratio AH ADM SS WBC (Bld) [#/Vol] 7.4 103/mcL Normal 4.5 - 10.8 10^3/mcL AH Workflow SS .Auto Diffon 12-14-2023 Basophil, Absolute 0.1 10 3/mcL Normal 0.0-0.3 [facility] ([place]) Comment on above: Performed By: #### M G, ADIFF, ANEU, GFR, CBC, CMP #### [address] [address] Basophils/100 WBC (Bld) 0.9 % Normal 0.0-2.5 [facility] ([place]) Comment on above: Performed By: #### M G, ADIFF, ANEU, GFR, CBC, CMP #### [address] [address] Eosinophil, Absolute 0.0 10 3/mcL Normal 0.0-0.7 [facility] ([place]) Comment on above: Performed By: #### M G, ADIFF, ANEU, GFR, CBC, CMP #### [address] [address] Eosinophils/100 WBC (Bld) 0.6 % Normal 0.0-6.0 [facility] ([place]) Comment on above: Performed By: #### M G, ADIFF, ANEU, GFR, CBC, CMP #### [address] [address] Lymphocyte, Absolute 1.7 10 3/mcL Normal 0.9-4.3 [facility] ([place]) Comment on above: Performed By: #### M G, ADIFF, ANEU, GFR, CBC, CMP #### [address] [address] Lymphocytes/100 WBC (Bld) 19.8 % Low 20.0-40.0 [facility] ([place]) Comment on above: Performed By: #### M G, ADIFF, ANEU, GFR, CBC, CMP #### [address] [address] Monocyte, Absolute 0.9 10 3/mcL Normal 0.1-1.4 [facility] ([place]) Comment on above: Performed By: #### M G, ADIFF, ANEU, GFR, CBC, CMP #### [address] [address] Monocytes/100 WBC (Bld) 10.4 % Normal 2.0-13.0 [facility] ([place]) Comment on above: Performed By: #### M G, ADIFF, ANEU, GFR, CBC, CMP #### [place] [address] Neutrophils/100 WBC (Bld) 68.3 % Normal 50.0-75.0 [facility] ([place]) Comment on above: Performed By: #### M G, ADIFF, ANEU, GFR, CBC, CMP #### [place] [id number] .NEUABSon 12-14-2023 Neutrophil, Absolute 5.7 10 3/mcL Normal 2.3-8.1 [facility] ([place]) Comment on above: Performed By: #### M G, ADIFF, ANEU, GFR, CBC, CMP #### [place] [address] CBCon 12-14-2023 Erythrocyte distribution width (RBC) [Ratio] 15.8 % High 11.5-15.5 [facility] ([place]) Comment on above: Performed By: #### M G, ADIFF, ANEU, GFR, CBC, CMP #### [place] [address] Hematocrit (Bld) [Volume fraction] 26.3 % Low 34.0-46.0 [facility] ([place]) Comment on above: Performed By: #### M G, ADIFF, ANEU, GFR, CBC, CMP #### [place] [address] Hgb 8.8 G/dL Low 12.0-16.0 [facility] ([place]) Comment on above: Performed By: #### M G, ADIFF, ANEU, GFR, CBC, CMP #### [place] [address] MCH (RBC) [Entitic mass] 30.2 pg Normal 27.0-33.0 [facility] ([place]) Comment on above: Performed By: #### M G, ADIFF, ANEU, GFR, CBC, CMP #### [place] [address] MCHC 33.4 G/dL Normal 32.0-36.0 [facility] ([place]) Comment on above: Performed By: #### M G, ADIFF, ANEU, GFR, CBC, CMP #### [place] [address] MCV (RBC) [Entitic vol] 90.2 fL Normal 80.0-99.0 [facility] ([place]) Comment on above: Performed By: #### M G, ADIFF, ANEU, GFR, CBC, CMP #### [place] [address] Platelet 280 10 3/mcL Normal 150-450 [facility] ([place]) Comment on above: Performed By: #### M G, ADIFF, ANEU, GFR, CBC, CMP #### [place] [address] Platelet mean volume (Bld) [Entitic vol] 9.1 fL Normal 6.6-10.5 [facility] ([place]) Comment on above: Performed By: #### M G, ADIFF, ANEU, GFR, CBC, CMP #### [place] [address] RBC 2.92 10 6/mcL Low 4.10-5.30 [facility] ([place]) Comment on above: Performed By: #### M G, ADIFF, ANEU, GFR, CBC, CMP #### [place] [address] WBC 8.3 10 3/mcL Normal 4.5-10.8 [facility] ([place]) Comment on above: Performed By: #### M G, ADIFF, ANEU, GFR, CBC, CMP #### [place] [address] HHon 12-14-2023 Hematocrit (Bld) [Volume fraction] 26.2 % Low 34.0-46.0 [facility] ([place]) Comment on above: Performed By: #### M G, ADIFF, ANEU, GFR, CBC, CMP #### [place] [address] Hgb 8.8 G/dL Low 12.0-16.0 [facility] ([place]) Comment on above: Performed By: #### M G, ADIFF, ANEU, GFR, CBC, CMP #### [address] [address] LABORATORYOrdered By: SYSTEM SYSTEM on 12-14-2023 Basophils (Bld) [#/Vol] 0.1 103/mcL Normal 0.0 - 0.3 10^3/mcL AH Workflow SS Basophils/100 WBC (Bld) 0.9 % Normal 0.0 - 2.5 % AH Workflow SS Eosinophils (Bld) [#/Vol] 0.0 103/mcL Normal 0.0 - 0.7 10^3/mcL AH Workflow SS Eosinophils/100 WBC (Bld) 0.6 % Normal 0.0 - 6.0 % AH Workflow SS Lymphocytes (Bld) [#/Vol] 1.7 103/mcL Normal 0.9 - 4.3 10^3/mcL AH Workflow SS Lymphocytes/100 WBC (Bld) 19.8 % Low 20.0 - 40.0 % AH Workflow SS Monocytes (Bld) [#/Vol] 0.9 103/mcL Normal 0.1 - 1.4 10^3/mcL AH Workflow SS Monocytes/100 WBC (Bld) 10.4 % Normal 2.0 - 13.0 % AH Workflow SS Neutrophils (Bld) [#/Vol] 5.7 103/mcL Normal 2.3 - 8.1 10^3/mcL AH Workflow SS Neutrophils/100 WBC (Bld) 68.3 % Normal 50.0 - 75.0 % AH Workflow SS .Auto Diffon 12-13-2023 Basophil, Absolute 0.1 10 3/mcL Normal 0.0-0.3 [facility] ([place]) Comment on above: Performed By: #### M Rafael, ADIFF, ANEU, GFR, CBC, CMP #### [address] [address] Basophils/100 WBC (Bld) 1.3 % Normal 0.0-2.5 [facility] ([place]) Comment on above: Performed By: #### M G, ADIFF, ANEU, GFR, CBC, CMP #### [address] [address] Eosinophil, Absolute 0.4 10 3/mcL Normal 0.0-0.7 [facility] ([place]) Comment on above: Performed By: #### M G, ADIFF, ANEU, GFR, CBC, CMP #### [address] [address] Eosinophils/100 WBC (Bld) 6.3 % High 0.0-6.0 [facility] ([place]) Comment on above: Performed By: #### M G, ADIFF, ANEU, GFR, CBC, CMP #### [address] [address] Lymphocyte, Absolute 1.7 10 3/mcL Normal 0.9-4.3 [facility] ([place]) Comment on above: Performed By: #### M G, ADIFF, ANEU, GFR, CBC, CMP #### [address] [address] Lymphocytes/100 WBC (Bld) 25.0 % Normal 20.0-40.0 [facility] ([place]) Comment on above: Performed By: #### M G, ADIFF, ANEU, GFR, CBC, CMP #### [address] [address] Monocyte, Absolute 0.6 10 3/mcL Normal 0.1-1.4 [facility] ([place]) Comment on above: Performed By: #### M G, ADIFF, ANEU, GFR, CBC, CMP #### [address] [address] Monocytes/100 WBC (Bld) 9.4 % Normal 2.0-13.0 [facility] ([place]) Comment on above: Performed By: #### M G, ADIFF, ANEU, GFR, CBC, CMP #### [address] [address] Neutrophils/100 WBC (Bld) 58.0 % Normal 50.0-75.0 [facility] ([place]) Comment on above: Performed By: #### M G, ADIFF, ANEU, GFR, CBC, CMP #### [address] [address] .GFRon 12-13-2023 GFR Non- >60 Normal [facility] ([place]) Comment on above: Result Comment: GFR Population mean for , Non- Americans Ages 20-29 = 116 mL/min/1.73 sq.m. Ages 30-39 = 107 mL/min/1.73 sq.m. Ages 40-49 = 99 mL/min/1.73 sq.m. Ages 50-59 = 93 mL/min/1.73 sq.m. Ages 60-69 = 85 mL/min/1.73 sq.m. Ages 70+ = 75 mL/min/1.73 sq.m. Chronic Kidney Disease: Less than 60 mL/min/1.73 square meters End Stage Renal Disease: Less than 15 mL/min/1.73 square meters Performed By: #### M G, ADIFF, ANEU, GFR, CBC, CMP #### [address] [address] GFR >60 Normal [facility] ([place]) Comment on above: Result Comment: GFR Population mean for , Non- Americans Ages 20-29 = 116 mL/min/1.73 sq.m. Ages 30-39 = 107 mL/min/1.73 sq.m. Ages 40-49 = 99 mL/min/1.73 sq.m. Ages 50-59 = 93 mL/min/1.73 sq.m. Ages 60-69 = 85 mL/min/1.73 sq.m. Ages 70+ = 75 mL/min/1.73 sq.m. Chronic Kidney Disease: Less than 60 mL/min/1.73 square meters End Stage Renal Disease: Less than 15 mL/min/1.73 square meters Performed By: #### M G, ADIFF, ANEU, GFR, CBC, CMP #### [address] [address] .NEUABSon 12-13-2023 Neutrophil, Absolute 4.0 10 3/mcL Normal 2.3-8.1 [facility] ([place]) Comment on above: Performed By: #### M G, ADIFF, ANEU, GFR, CBC, CMP #### [address] [address] BMPon 12-13-2023 BUN/Creatinine Ratio 20.2 ratio Normal 10.0-22.0 [facility] ([place]) Comment on above: Performed By: #### M G, ADIFF, ANEU, GFR, CBC, CMP #### [address] [address] Calcium [Mass/Vol] 8.6 mg/dL Low 8.7-10.4 [facility] ([place]) Comment on above: Performed By: #### M G, ADIFF, ANEU, GFR, CBC, CMP #### [address] [address] Chloride [Moles/Vol] 106 mmol/L Normal 98-110 [facility] ([place]) Comment on above: Performed By: #### Anupam G, ADIFF, ANEU, GFR, CBC, CMP #### [address] [address] CO2 [Moles/Vol] 29 mmol/L Normal 22-32 [facility] ([place]) Comment on above: Performed By: #### Anupam G, ADIFF, ANEU, GFR, CBC, CMP #### [address] [address] Creatinine [Mass/Vol] 0.89 mg/dL Normal 0.50-1.20 [facility] ([place]) Comment on above: Performed By: #### M G, ADIFF, ANEU, GFR, CBC, CMP #### [address] [address] Electrolyte Balance 5.0 mEq/L Normal 4.0-15.0 [facility] ([place]) Comment on above: Performed By: #### M G, ADIFF, ANEU, GFR, CBC, CMP #### [address] [address] Glucose [Mass/Vol] 93 mg/dL Normal 70-110 [facility] ([place]) Comment on above: Performed By: #### M G, ADIFF, ANEU, GFR, CBC, CMP #### [address] [address] Potassium [Moles/Vol] 4.0 mmol/L Normal 3.5-5.0 [facility] ([place]) Comment on above: Performed By: #### M G, ADIFF, ANEU, GFR, CBC, CMP #### [place] [address] Sodium [Moles/Vol] 140 mmol/L Normal 136-145 [facility] ([place]) Comment on above: Performed By: #### M G, ADIFF, ANEU, GFR, CBC, CMP #### [place] [address] Urea nitrogen [Mass/Vol] 18.0 mg/dL Normal 8.0-22.0 [facility] ([place]) Comment on above: Performed By: #### M G, ADIFF, ANEU, GFR, CBC, CMP #### [place] [address] CBCon 12-13-2023 Erythrocyte distribution width (RBC) [Ratio] 16.0 % High 11.5-15.5 [facility] ([place]) Comment on above: Performed By: #### M G, ADIFF, ANEU, GFR, CBC, CMP #### [place] [address] Hematocrit (Bld) [Volume fraction] 33.5 % Low 34.0-46.0 [facility] ([place]) Comment on above: Performed By: #### M G, ADIFF, ANEU, GFR, CBC, CMP #### [place] [address] Hgb 11.2 G/dL Low 12.0-16.0 [facility] ([place]) Comment on above: Performed By: #### M G, ADIFF, ANEU, GFR, CBC, CMP #### [place] [address] MCH (RBC) [Entitic mass] 30.2 pg Normal 27.0-33.0 [facility] ([place]) Comment on above: Performed By: #### M G, ADIFF, ANEU, GFR, CBC, CMP #### [place] [address] MCHC 33.3 G/dL Normal 32.0-36.0 [facility] ([place]) Comment on above: Performed By: #### M G, ADIFF, ANEU, GFR, CBC, CMP #### [place] [address] MCV (RBC) [Entitic vol] 90.8 fL Normal 80.0-99.0 [facility] ([place]) Comment on above: Performed By: #### M G, ADIFF, ANEU, GFR, CBC, CMP #### [place] [address] Platelet 248 10 3/mcL Normal 150-450 [facility] ([place]) Comment on above: Performed By: #### M G, ADIFF, ANEU, GFR, CBC, CMP #### [place] [address] Platelet mean volume (Bld) [Entitic vol] 9.2 fL Normal 6.6-10.5 [facility] ([place]) Comment on above: Performed By: #### M Rafael, ADIFF, ANEU, GFR, CBC, CMP #### [place] [address] RBC 3.69 10 6/mcL Low 4.10-5.30 [facility] ([place]) Comment on above: Performed By: #### M G, ADIFF, ANEU, GFR, CBC, CMP #### [place] [address] WBC 6.9 10 3/mcL Normal 4.5-10.8 [facility] ([place]) Comment on above: Performed By: #### M G, ADIFF, ANEU, GFR, CBC, CMP #### [address] [address] LABORATORYOrdered By: SYSTEM SYSTEM on 12-13-2023 Basophils (Bld) [#/Vol] 0.1 103/mcL Normal 0.0 - 0.3 10^3/mcL AH Workflow SS Basophils/100 WBC (Bld) 1.3 % Normal 0.0 - 2.5 % AH Workflow SS Eosinophils (Bld) [#/Vol] 0.4 103/mcL Normal 0.0 - 0.7 10^3/mcL AH Workflow SS Eosinophils/100 WBC (Bld) 6.3 % High 0.0 - 6.0 % AH Workflow SS Lymphocytes (Bld) [#/Vol] 1.7 103/mcL Normal 0.9 - 4.3 10^3/mcL AH Workflow SS Lymphocytes/100 WBC (Bld) 25.0 % Normal 20.0 - 40.0 % AH Workflow SS Monocytes (Bld) [#/Vol] 0.6 103/mcL Normal 0.1 - 1.4 10^3/mcL AH Workflow SS Monocytes/100 WBC (Bld) 9.4 % Normal 2.0 - 13.0 % AH Workflow SS Neutrophils (Bld) [#/Vol] 4.0 103/mcL Normal 2.3 - 8.1 10^3/mcL AH Workflow SS Neutrophils/100 WBC (Bld) 58.0 % Normal 50.0 - 75.0 % AH Workflow SS XR FLUORO > 2 HRS TECH TIMEo n 12-13-2023 XR FLUORO > 2 HRS TECH TIME ORIGINAL EXAMINATION: SPOT FLUOROSCOPIC IMAGES 12/13/2023 3:45 pm TECHNIQUE: Fluoroscopy was provided by the radiology department for procedure. Radiologist was not present during examination. FLUOROSCOPY DOSE AND TYPE: Radiation Exposure Index: 23.973 mGy, 181.7 seconds, 24 images COMPARISON: 12/06/2023 HISTORY: ORDERING SYSTEM PROVIDED HISTORY: Reason for Exam: LT TIBIA FX Intraprocedural imaging. FINDINGS: Spot intraoperative images are obtained demonstrating placement of an intramedullary nail in the tibia with proximal and distal locking screws as well as a medial fixation plate and screws in the proximal to mid tibia. IMPRESSION: Intraprocedural fluoroscopic spot images as above. See separate procedure report for more information. Interpreted by: Arnie Nation Preliminary Report By: Arnie Nation Electronically signed By Arnie Nation Dictated Date: 12/13/2023 4:48:48 PM Prelim Date: 12/13/2023 4:50:45 PM Sign Date: 12/13/2023 4:50:45 PM Ordering Provider: CLARENCE Mello [facility] ([place]) .Auto Diffon 12-12-2023 Basophil, Absolute 0.1 10 3/mcL Normal 0.0-0.3 [facility] ([place]) Comment on above: Performed By: #### M G, ADIFF, ANEU, GFR, CBC, CMP #### [facility] [address] [place], [place] [address] Basophils/100 WBC (Bld) 1.0 % Normal 0.0-2.5 [facility] ([place]) Comment on above: Performed By: #### M G, ADIFF, ANEU, GFR, CBC, CMP #### [address] [address] Eosinophil, Absolute 0.4 10 3/mcL Normal 0.0-0.7 [facility] ([place]) Comment on above: Performed By: #### M G, ADIFF, ANEU, GFR, CBC, CMP #### [address] [address] Eosinophils/100 WBC (Bld) 4.8 % Normal 0.0-6.0 [facility] ([place]) Comment on above: Performed By: #### M G, ADIFF, ANEU, GFR, CBC, CMP #### [address] [address] Lymphocyte, Absolute 1.9 10 3/mcL Normal 0.9-4.3 [facility] ([place]) Comment on above: Performed By: #### M G, ADIFF, ANEU, GFR, CBC, CMP #### [address] [address] Lymphocytes/100 WBC (Bld) 25.1 % Normal 20.0-40.0 [facility] ([place]) Comment on above: Performed By: #### M G, ADIFF, ANEU, GFR, CBC, CMP #### [address] [address] Monocyte, Absolute 0.7 10 3/mcL Normal 0.1-1.4 [facility] ([place]) Comment on above: Performed By: #### M G, ADIFF, ANEU, GFR, CBC, CMP #### [address] [address] Monocytes/100 WBC (Bld) 9.4 % Normal 2.0-13.0 [facility] ([place]) Comment on above: Performed By: #### M G, ADIFF, ANEU, GFR, CBC, CMP #### [address] [address] Neutrophils/100 WBC (Bld) 59.7 % Normal 50.0-75.0 [facility] ([place]) Comment on above: Performed By: #### M G, ADIFF, ANEU, GFR, CBC, CMP #### [address] [address] .GFRon 12-12-2023 GFR >60 Normal [facility] ([place]) Comment on above: Result Comment: GFR Population mean for , Non- Americans Ages 20-29 = 116 mL/min/1.73 sq.m. Ages 30-39 = 107 mL/min/1.73 sq.m. Ages 40-49 = 99 mL/min/1.73 sq.m. Ages 50-59 = 93 mL/min/1.73 sq.m. Ages 60-69 = 85 mL/min/1.73 sq.m. Ages 70+ = 75 mL/min/1.73 sq.m. Chronic Kidney Disease: Less than 60 mL/min/1.73 square meters End Stage Renal Disease: Less than 15 mL/min/1.73 square meters Performed By: #### M G, ADIFF, ANEU, GFR, CBC, CMP #### [address] [address] GFR Non- >60 Normal [facility] ([place]) Comment on above: Result Comment: GFR Population mean for , Non- Americans Ages 20-29 = 116 mL/min/1.73 sq.m. Ages 30-39 = 107 mL/min/1.73 sq.m. Ages 40-49 = 99 mL/min/1.73 sq.m. Ages 50-59 = 93 mL/min/1.73 sq.m. Ages 60-69 = 85 mL/min/1.73 sq.m. Ages 70+ = 75 mL/min/1.73 sq.m. Chronic Kidney Disease: Less than 60 mL/min/1.73 square meters End Stage Renal Disease: Less than 15 mL/min/1.73 square meters Performed By: #### M G, ADIFF, ANEU, GFR, CBC, CMP #### [address] [address] .NEUABSon 12-12-2023 Neutrophil, Absolute 4.5 10 3/mcL Normal 2.3-8.1 [facility] ([place]) Comment on above: Performed By: #### M Rafael, ADIFF, ANEU, GFR, CBC, CMP #### [address] [address] ABO/Rh (Gel)on 12-12-2023 ABO/Rh Interp Positive Invalid Interpretation Code [facility] ([place]) Comment on above: Performed By: #### A MARLA CALDERON, PRO #### [address] [address] ABS (Gel)on 12-12-2023 ABSC Interp (Gel) Negative Normal [facility] ([place]) Comment on above: Performed By: #### A MARLA CALDERON, PRO ####[address] [address] BMPon 12-12-2023 BUN/Creatinine Ratio 25.4 ratio High 10.0-22.0 [facility] ([place]) Comment on above: Performed By: #### M Rafael, ADIFF, ANEU, GFR, CBC, CMP #### [address] [address] Calcium [Mass/Vol] 8.5 mg/dL Low 8.7-10.4 [facility] ([place]) Comment on above: Performed By: #### Anupam G, ADIFF, ANEU, GFR, CBC, CMP #### [address] [address] Chloride [Moles/Vol] 110 mmol/L Normal 98-110 [facility] ([place]) Comment on above: Performed By: #### M G, ADIFF, ANEU, GFR, CBC, CMP #### [address] [address] CO2 [Moles/Vol] 27 mmol/L Normal 22-32 [facility] ([place]) Comment on above: Performed By: #### M G, ADIFF, ANEU, GFR, CBC, CMP #### [address] [address] Creatinine [Mass/Vol] 0.71 mg/dL Normal 0.50-1.20 [facility] ([place]) Comment on above: Performed By: #### M G, ADIFF, ANEU, GFR, CBC, CMP #### [place] [id number] Electrolyte Balance 2.0 mEq/L Low 4.0-15.0 [facility] ([place]) Comment on above: Performed By: #### M G, ADIFF, ANEU, GFR, CBC, CMP #### [place] [address] Glucose [Mass/Vol] 100 mg/dL Normal 70-110 [facility] ([place]) Comment on above: Performed By: #### Anupam G, ADIFF, ANEU, GFR, CBC, CMP #### [place] [id number] Potassium [Moles/Vol] 3.8 mmol/L Normal 3.5-5.0 [facility] ([place]) Comment on above: Performed By: #### M G, ADIFF, ANEU, GFR, CBC, CMP #### [place] [id number] Sodium [Moles/Vol] 139 mmol/L Normal 136-145 [facility] ([place]) Comment on above: Performed By: #### M G, ADIFF, ANEU, GFR, CBC, CMP #### [place] [address] Urea nitrogen [Mass/Vol] 18.0 mg/dL Normal 8.0-22.0 [facility] ([place]) Comment on above: Performed By: #### M G, ADIFF, ANEU, GFR, CBC, CMP #### [address] [address] CBCon 12-12-2023 Erythrocyte distribution width (RBC) [Ratio] 16.1 % High 11.5-15.5 [facility] ([place]) Comment on above: Performed By: #### M G, ADIFF, ANEU, GFR, CBC, CMP #### [place] [id number] Hematocrit (Bld) [Volume fraction] 31.9 % Low 34.0-46.0 [facility] ([place]) Comment on above: Performed By: #### M G, ADIFF, ANEU, GFR, CBC, CMP #### [place] [address] Hgb 10.7 G/dL Low 12.0-16.0 [facility] ([place]) Comment on above: Performed By: #### M G, ADIFF, ANEU, GFR, CBC, CMP #### [place] [address] MCH (RBC) [Entitic mass] 30.4 pg Normal 27.0-33.0 [facility] ([place]) Comment on above: Performed By: #### M G, ADIFF, ANEU, GFR, CBC, CMP #### [place] [address] MCHC 33.4 G/dL Normal 32.0-36.0 [facility] ([place]) Comment on above: Performed By: #### M G, ADIFF, ANEU, GFR, CBC, CMP #### [place] [address] MCV (RBC) [Entitic vol] 91.0 fL Normal 80.0-99.0 [facility] ([place]) Comment on above: Performed By: #### M G, ADIFF, ANEU, GFR, CBC, CMP #### [place] [address] Platelet 230 10 3/mcL Normal 150-450 [facility] ([place]) Comment on above: Performed By: #### M G, ADIFF, ANEU, GFR, CBC, CMP #### [place] [address] Platelet mean volume (Bld) [Entitic vol] 9.1 fL Normal 6.6-10.5 [facility] ([place]) Comment on above: Performed By: #### M G, ADIFF, ANEU, GFR, CBC, CMP #### [place] [address] RBC 3.50 10 6/mcL Low 4.10-5.30 [facility] ([place]) Comment on above: Performed By: #### M G, ADIFF, ANEU, GFR, CBC, CMP #### [place] [id number] [address] [place] [address] WBC 7.5 10 3/mcL Normal 4.5-10.8 [facility] ([place]) Comment on above: Performed By: #### M G, ADIFF, ANEU, GFR, CBC, CMP #### [place] [id number] [address] [place] [address] LABORATORYOrdered By: Edward Parra on 12-12-2023 ABO and Rh group Nom (Bld) Blood group A Rh(D) positive Invalid Interpretation Code BB Auto SS Blood group antibody screen Ql Negative ABSC (12/12/23 2:35 PM) Normal BB Auto SS LABORATORYOrdered By: Donna Foster on 12-12-2023 PT Coag (PPP) [Time] 13.7 s Normal 9.0 - 1 4.2 seconds [facility] SS Comment on above: Interpretive Data: E ffective 04/17/08, Protime results may be affected by some antibiotics (i.e. Ciprofloxacin, Azithromycin, Bactrim) which may potentiate the action of oral anticoagulants, with further increases in Protime/INR. PT International Ratio 1.2 ratio Invalid Interpretation Code [facility] SS Comment on above: Interpretive Data: Jalen lugo [employer] (CHEST, 1991, 102:312S-25S) recommended therapeutic range for oral anticoagulant therapy is: LOW RISK: Prophylaxis of venous thrombosis INR: 2.0-3.0 Treatment of pulmonary embolism 2.0-3.0 Prevention of systemic embolism 2.0-3.0 HIGH RISK: Mechanical prosthetic valves 2.5-3.5 LABORATORYOrdered By: SYSTEM SYSTEM on 12-12-2023 Magnesium [Mass/Vol] 2.1 mg/dL Normal 1.6 - 2 .4 mg/dL ADM SS MGon 12-12-2023 Magnesium [Mass/Vol] 2.1 mg/dL Normal 1.6-2.4 [facility] ([place]) Comment on above: Performed By: #### M G, ADIFF, ANEU, GFR, CBC, CMP #### [address] [address] PROon 12-12-2023 INR Coag (PPP) [Relative time] 1.2 {INR} Normal [facility] ([place]) Comment on above: Result Comment: [employer] (CHEST, 1991, 102:312S-25S) recommended therapeutic range for oral anticoagulant therapy is: LOW RISK: Prophylaxis of venous thrombosis INR: 2.0-3.0 Treatment of pulmonary embolism 2.0-3.0 Prevention of systemic embolism 2.0-3.0 HIGH RISK: Mechanical prosthetic valves 2.5-3.5 Performed By: #### A MARLA CALDERON, PRO #### [address] [address] PT Coag (PPP) [Time] 13.7 s Normal 9.0-14.2 [facility] ([place]) Comment on above: Result Comment: Effe ctive 04/17/08, Protime results may be affected by some antibiotics (i.e. Ciprofloxacin, Azithromycin, Bactrim) which may potentiate the action of oral anticoagulants, with further increases in Protime/INR. Performed By: #### A MARLA CALDERON, PRO #### [address] [address] .Auto Diffon 12-09-2023 Basophil, Absolute 0.1 10 3/mcL Normal 0.0-0.3 [facility] ([place]) Comment on above: Performed By: #### M G, ADIFF, ANEU, GFR, CBC, CMP #### [address] [address] Basophils/100 WBC (Bld) 1.2 % Normal 0.0-2.5 [facility] ([place]) Comment on above: Performed By: #### M G, ADIFF, ANEU, GFR, CBC, CMP #### [address] [address] Eosinophil, Absolute 0.3 10 3/mcL Normal 0.0-0.7 [facility] ([place]) Comment on above: Performed By: #### M G, ADIFF, ANEU, GFR, CBC, CMP #### [address] [address] Eosinophils/100 WBC (Bld) 5.3 % Normal 0.0-6.0 [facility] ([place]) Comment on above: Performed By: #### M G, ADIFF, ANEU, GFR, CBC, CMP #### [address] [address] Lymphocyte, Absolute 1.8 10 3/mcL Normal 0.9-4.3 [facility] ([place]) Comment on above: Performed By: #### M G, ADIFF, ANEU, GFR, CBC, CMP #### [address] [address] Lymphocytes/100 WBC (Bld) 27.9 % Normal 20.0-40.0 [facility] ([place]) Comment on above: Performed By: #### M G, ADIFF, ANEU, GFR, CBC, CMP #### [address] [address] Monocyte, Absolute 0.7 10 3/mcL Normal 0.1-1.4 [facility] ([place]) Comment on above: Performed By: #### M G, ADIFF, ANEU, GFR, CBC, CMP #### [address] [address] Monocytes/100 WBC (Bld) 10.7 % Normal 2.0-13.0 [facility] ([place]) Comment on above: Performed By: #### M G, ADIFF, ANEU, GFR, CBC, CMP #### [address] [address] Neutrophils/100 WBC (Bld) 54.9 % Normal 50.0-75.0 [facility] ([place]) Comment on above: Performed By: #### M G, ADIFF, ANEU, GFR, CBC, CMP #### [address] [address] .GFRon 12-09-2023 GFR >60 Normal [facility] ([place]) Comment on above: Result Comment: GFR Population mean for , Non- Americans Ages 20-29 = 116 mL/min/1.73 sq.m. Ages 30-39 = 107 mL/min/1.73 sq.m. Ages 40-49 = 99 mL/min/1.73 sq.m. Ages 50-59 = 93 mL/min/1.73 sq.m. Ages 60-69 = 85 mL/min/1.73 sq.m. Ages 70+ = 75 mL/min/1.73 sq.m. Chronic Kidney Disease: Less than 60 mL/min/1.73 square meters End Stage Renal Disease: Less than 15 mL/min/1.73 square meters Performed By: #### M G, ADIFF, ANEU, GFR, CBC, CMP #### [address] [address] GFR Non- >60 Normal [facility] ([place]) Comment on above: Result Comment: GFR Population mean for , Non- Americans Ages 20-29 = 116 mL/min/1.73 sq.m. Ages 30-39 = 107 mL/min/1.73 sq.m. Ages 40-49 = 99 mL/min/1.73 sq.m. Ages 50-59 = 93 mL/min/1.73 sq.m. Ages 60-69 = 85 mL/min/1.73 sq.m. Ages 70+ = 75 mL/min/1.73 sq.m. Chronic Kidney Disease: Less than 60 mL/min/1.73 square meters End Stage Renal Disease: Less than 15 mL/min/1.73 square meters Performed By: #### M G, ADIFF, ANEU, GFR, CBC, CMP #### [address] [address] .NEUABSon 12-09-2023 Neutrophil, Absolute 3.6 10 3/mcL Normal 2.3-8.1 [facility] ([place]) Comment on above: Performed By: #### M G, ADIFF, ANEU, GFR, CBC, CMP #### [address] [address] CBCon 12-09-2023 Erythrocyte distribution width (RBC) [Ratio] 15.9 % High 11.5-15.5 [facility] ([place]) Comment on above: Performed By: #### M G, ADIFF, ANEU, GFR, CBC, CMP #### [address] [address] Hematocrit (Bld) [Volume fraction] 30.9 % Low 34.0-46.0 [facility] ([place]) Comment on above: Performed By: #### M G, ADIFF, ANEU, GFR, CBC, CMP #### [place] [address] Hgb 10.3 G/dL Low 12.0-16.0 [facility] ([place]) Comment on above: Performed By: #### M G, ADIFF, ANEU, GFR, CBC, CMP #### [place] [address] MCH (RBC) [Entitic mass] 30.2 pg Normal 27.0-33.0 [facility] ([place]) Comment on above: Performed By: #### M G, ADIFF, ANEU, GFR, CBC, CMP #### [place] [address] MCHC 33.2 G/dL Normal 32.0-36.0 [facility] ([place]) Comment on above: Performed By: #### M G, ADIFF, ANEU, GFR, CBC, CMP #### [place] [address] MCV (RBC) [Entitic vol] 91.0 fL Normal 80.0-99.0 [facility] ([place]) Comment on above: Performed By: #### M G, ADIFF, ANEU, GFR, CBC, CMP #### [place] [address] Platelet 194 10 3/mcL Normal 150-450 [facility] ([place]) Comment on above: Performed By: #### M G, ADIFF, ANEU, GFR, CBC, CMP #### [place] [address] Platelet mean volume (Bld) [Entitic vol] 9.5 fL Normal 6.6-10.5 [facility] ([place]) Comment on above: Performed By: #### M G, ADIFF, ANEU, GFR, CBC, CMP #### [place] [address] RBC 3.39 10 6/mcL Low 4.10-5.30 [facility] ([place]) Comment on above: Performed By: #### M G, ADIFF, ANEU, GFR, CBC, CMP #### [address] [address] WBC 6.5 10 3/mcL Normal 4.5-10.8 [facility] ([place]) Comment on above: Performed By: #### M G, ADIFF, ANEU, GFR, CBC, CMP #### [address] [address] CMPon 12-09-2023 Albumin Level 2.5 G/dL Low 3.2-4.8 [facility] ([place]) Comment on above: Performed By: #### M G, ADIFF, ANEU, GFR, CBC, CMP #### [address] [address] Albumin/Globulin [Mass ratio] 0.9 {ratio} Normal 0.9-1.6 [facility] ([place]) Comment on above: Performed By: #### M G, ADIFF, ANEU, GFR, CBC, CMP #### [address] [address] ALP [Catalytic activity/Vol] 102 U/L Normal 38-126 [facility] ([place]) Comment on above: Performed By: #### M G, ADIFF, ANEU, GFR, CBC, CMP #### [address] [address] ALT [Catalytic activity/Vol] 42 U/L Normal 10-49 [facility] ([place]) Comment on above: Performed By: #### M G, ADIFF, ANEU, GFR, CBC, CMP #### [address] [address] AST [Catalytic activity/Vol] 26 U/L Normal 8-34 [facility] ([place]) Comment on above: Performed By: #### M G, ADIFF, ANEU, GFR, CBC, CMP #### [place] [address] Bili Total 0.30 mg/dL Normal 0.20-1.20 [facility] ([place]) Comment on above: Result Comment: Use of this assay is not recommended for patients undergoing treatment with eltrombopag due to the potential for falsely elevated results. Performed By: #### M G, ADIFF, ANEU, GFR, CBC, CMP #### [place] [address] BUN/Creatinine Ratio 18.3 ratio Normal 10.0-22.0 [facility] ([place]) Comment on above: Performed By: #### M G, ADIFF, ANEU, GFR, CBC, CMP #### [place] [address] Calcium [Mass/Vol] 8.1 mg/dL Low 8.7-10.4 [facility] ([place]) Comment on above: Performed By: #### M G, ADIFF, ANEU, GFR, CBC, CMP #### [place] [address] Chloride [Moles/Vol] 112 mmol/L High 98-110 [facility] ([place]) Comment on above: Performed By: #### M G, ADIFF, ANEU, GFR, CBC, CMP #### [place] [phone] CO2 [Moles/Vol] 28 mmol/L Normal 22-32 [facility] ([place]) Comment on above: Performed By: #### M G, ADIFF, ANEU, GFR, CBC, CMP #### [address] [address] Creatinine [Mass/Vol] 0.71 mg/dL Normal 0.50-1.20 [facility] ([place]) Comment on above: Performed By: #### M G, ADIFF, ANEU, GFR, CBC, CMP #### [place] [id number] Electrolyte Balance 0.0 mEq/L Low 4.0-15.0 [facility] ([place]) Comment on above: Performed By: #### M G, ADIFF, ANEU, GFR, CBC, CMP #### [place] [id number] Globulin 2.7 G/dL Normal 1.5-3.8 [facility] ([place]) Comment on above: Performed By: #### M G, ADIFF, ANEU, GFR, CBC, CMP #### [address] [address] Glucose [Mass/Vol] 94 mg/dL Normal 70-110 [facility] ([place]) Comment on above: Performed By: #### M G, ADIFF, ANEU, GFR, CBC, CMP #### [place] [phone] Potassium [Moles/Vol] 3.9 mmol/L Normal 3.5-5.0 [facility] ([place]) Comment on above: Performed By: #### M G, ADIFF, ANEU, GFR, CBC, CMP #### [place] [phone] Sodium [Moles/Vol] 140 mmol/L Normal 136-145 [facility] ([place]) Comment on above: Performed By: #### M G, ADIFF, ANEU, GFR, CBC, CMP #### [place] [id number] Total Protein 5.2 G/dL Low 5.7-8.2 [facility] ([place]) Comment on above: Result Comment: No te - New Reference Range in effect 20 Performed By: #### M G, ADIFF, ANEU, GFR, CBC, CMP #### [place] [phone] Urea nitrogen [Mass/Vol] 13.0 mg/dL Normal 8.0-22.0 [facility] ([place]) Comment on above: Performed By: #### M G, ADIFF, ANEU, GFR, CBC, CMP #### [address] [address] EMERGENCY REPORTon 4 EMERGENCY REPORT [facility] EMERGENCY ROOM REPORT NAME ACCOUNT SEX AGE ADMIT DISCHARGE PT MED. RECORD# NUMBER DATE DATE TYPE ZENON, [id number] F 53 12/06/23 12/06/23 3 QUINTEN Berkowitz [id number] ROOM: ER DATE OF : 1970 DICTATING PHYSICIAN: Abhinav Vargas ADDENDUM: DIAGNOSTIC DATA: X-ray was read as a proximal tibial fracture, with angulation. It is a closed fracture. DIAGNOSIS: Left knee pain with proximal tibial fracture. PLAN/DISPOSITION: Neurovascularly distal is normal. She is going to need to have this repaired. She states that Dr. Js Chilel took care of this for her in the past. She is going to receive additional pain medicines, some kind of a long leg immobilizer if we can fashion one, and we will speak to Dr. Chilel regarding admission and further work on this patient. Dictated By: Abhinav Vargas DO 12/06/23 09:11 JOB #: [id number] Transcribed By: am 12/06/23 12:18 Electronically signed by: E-SIGN ABHINAV VARGAS DO 12/09/23 15:51 Page 1 of 1 QUINTEN YARBROUGH Emergency Room Report Normal [facility] EMERGENCY REPORT [facility] EMERGENCY ROOM REPORT NAME ACCOUNT SEX AGE ADMIT DISCHARGE PT MED. RECORD# NUMBER DATE DATE TYPE ZENON [id number] F 53 12/06/23 3 QUINTEN Berkowitz [id number] ROOM: ER DATE OF : 1970 DICTATING PHYSICIAN: Abhinav Vargas HISTORY OF PRESENT ILLNESS: This is a 53-year-old lady who came in complaining about knee pain. She states that she was at a friend's house cooking dinner last night. She went to turn and felt a little pop in her knee. It did not bother her too much then, but this morning it was so bad she could not walk. She called 911 to come here to the Emergency Room. She has a history of previous injury to the right knee area but never has had left knee injuries. The discomfort does not radiate anywhere. It seems to be just right below her patella. She states it is worse to bend and worse to weightbear. She denies any other injuries. PHYSICAL EXAMINATION: She sits up and lies back easily. She has no tenderness along her mid-lower or upper spine. Her lungs are clear. There are no expiratory wheezes, rales, or paradoxical chest motions. Her heart rate and rhythm are regular without a murmur. Neck is supple. Pupils are equal, round, and reactive. Her skin is warm and dry. Her abdomen is soft. She is very overweight. Dorsalis pedis pulses and posterior tibial pulses were normal on the affected left leg. She has no ecchymosis, lacerations, abrasions or erythema around the knee. We did not check ligaments in deference to discomfort. EMERGENCY DEPARTMENT COURSE AND TREATMENT: Our CT machine handles up to 450 pounds, so we weighed her and she came in at over 450 pounds, which means we will have to use plain film imaging. She had Dilaudid by squad, and she is requesting additional pain medications. We will give her some additional ketorolac for pain here. Her case will be endorsed to the care of the oncoming physician at the change of shift. Dictated By: Abhinav Vargas DO 12/06/23 08:07 JOB #: [id number] Transcribed By: arsen 12/06/23 10:07 Electronically signed by: E-SIGN ABHINAV VARGAS DO 12/09/23 15:51 Page 1 of 1 QUINTEN YARBROUGH Emergency Room Report Normal [facility] LABORATORYOrdered By: SYSTEM SYSTEM on 12-09-2023 Albumin BCP dye [Mass/Vol] 2.5 G/dL Low 3.2 - 4.8 G/dL AH ADM SS Albumin/Globulin [Mass ratio] 0.9 {ratio} Normal 0.9 - 1.6 ratio AH ADM SS ALP [Catalytic activity/Vol] 102 U/L Normal 38 - 126 U/L AH ADM SS ALT No additional P-5'-P [Catalytic activity/Vol] 42 U/L Normal 10 - 49 U/L AH ADM SS AST [Catalytic activity/Vol] 26 U/L Normal 8 - 34 U/L AH ADM SS Bilirubin [Mass/Vol] 0.30 mg/dL Normal 0.20 - 1.20 mg/dL AH ADM SS Comment on above: Interpretive Data: U se of this assay is not recommended for patients undergoing treatment with eltrombopag due to the potential for falsely elevated results. Globulin 2.7 G/dL Normal 1.5 - 3.8 G/dL AH ADM SS Magnesium [Mass/Vol] 1.8 mg/dL Normal 1.6 - 2 .4 mg/dL AH ADM SS Protein [Mass/Vol] 5.2 G/dL Low 5.7 - 8.2 G/dL AH ADM SS Comment on above: Interpretive Data: * *Note - New Reference Range in effect 20 MGon 12-09-2023 Magnesium [Mass/Vol] 1.8 mg/dL Normal 1.6-2.4 [facility] ([place]) Comment on above: Performed By: #### M G, ADIFF, ANEU, GFR, CBC, CMP #### [address] [address] .Auto Diffon 12-08-2023 Basophil, Absolute 0.0 10 3/mcL Normal 0.0-0.3 [facility] ([place]) Comment on above: Performed By: #### M G, ADIFF, ANEU, GFR, CBC, CMP #### [address] [address] Basophils/100 WBC (Bld) 0.5 % Normal 0.0-2.5 [facility] ([place]) Comment on above: Performed By: #### Anupam G, ADIFF, ANEU, GFR, CBC, CMP #### [address] [address] Eosinophil, Absolute 0.0 10 3/mcL Normal 0.0-0.7 [facility] ([place]) Comment on above: Performed By: #### M G, ADIFF, ANEU, GFR, CBC, CMP #### [address] [address] Eosinophils/100 WBC (Bld) 0.2 % Normal 0.0-6.0 [facility] ([place]) Comment on above: Performed By: #### M G, ADIFF, ANEU, GFR, CBC, CMP #### [address] [address] Lymphocyte, Absolute 0.9 10 3/mcL Normal 0.9-4.3 [facility] ([place]) Comment on above: Performed By: #### M G, ADIFF, ANEU, GFR, CBC, CMP #### [address] [address] Lymphocytes/100 WBC (Bld) 13.1 % Low 20.0-40.0 [facility] ([place]) Comment on above: Performed By: #### M G, ADIFF, ANEU, GFR, CBC, CMP #### [address] [address] Monocyte, Absolute 0.7 10 3/mcL Normal 0.1-1.4 [facility] ([place]) Comment on above: Performed By: #### M G, ADIFF, ANEU, GFR, CBC, CMP #### [address] [address] Monocytes/100 WBC (Bld) 9.9 % Normal 2.0-13.0 [facility] ([place]) Comment on above: Performed By: #### M G, ADIFF, ANEU, GFR, CBC, CMP #### [address] [address] Neutrophils/100 WBC (Bld) 76.3 % High 50.0-75.0 [facility] ([place]) Comment on above: Performed By: #### M G, ADIFF, ANEU, GFR, CBC, CMP #### [address] [address] .GFRon 12-08-2023 GFR >60 Normal [facility] ([place]) Comment on above: Result Comment: GFR Population mean for , Non- Americans Ages 20-29 = 116 mL/min/1.73 sq.m. Ages 30-39 = 107 mL/min/1.73 sq.m. Ages 40-49 = 99 mL/min/1.73 sq.m. Ages 50-59 = 93 mL/min/1.73 sq.m. Ages 60-69 = 85 mL/min/1.73 sq.m. Ages 70+ = 75 mL/min/1.73 sq.m. Chronic Kidney Disease: Less than 60 mL/min/1.73 square meters End Stage Renal Disease: Less than 15 mL/min/1.73 square meters Performed By: #### M G, ADIFF, ANEU, GFR, CBC, CMP #### [address] [address] GFR Non- >60 Normal [facility] ([place]) Comment on above: Result Comment: GFR Population mean for , Non- Americans Ages 20-29 = 116 mL/min/1.73 sq.m. Ages 30-39 = 107 mL/min/1.73 sq.m. Ages 40-49 = 99 mL/min/1.73 sq.m. Ages 50-59 = 93 mL/min/1.73 sq.m. Ages 60-69 = 85 mL/min/1.73 sq.m. Ages 70+ = 75 mL/min/1.73 sq.m. Chronic Kidney Disease: Less than 60 mL/min/1.73 square meters End Stage Renal Disease: Less than 15 mL/min/1.73 square meters Performed By: #### M G, ADIFF, ANEU, GFR, CBC, CMP #### [address] [address] .NEUABSon 12-08-2023 Neutrophil, Absolute 5.2 10 3/mcL Normal 2.3-8.1 [facility] ([place]) Comment on above: Performed By: #### Anupam G, ADIFF, ANEU, GFR, CBC, CMP #### [address] [address] BMPon 12-08-2023 BUN/Creatinine Ratio 21.1 ratio Normal 10.0-22.0 [facility] ([place]) Comment on above: Performed By: #### Anupam Hall, ADIFF, ANEU, GFR, CBC, CMP #### [address] [address] Calcium [Mass/Vol] 8.3 mg/dL Low 8.7-10.4 [facility] ([place]) Comment on above: Performed By: #### Anupam G, ADIFF, ANEU, GFR, CBC, CMP #### [address] [address] Chloride [Moles/Vol] 109 mmol/L Normal 98-110 [facility] ([place]) Comment on above: Performed By: #### M G, ADIFF, ANEU, GFR, CBC, CMP #### [address] [address] CO2 [Moles/Vol] 29 mmol/L Normal 22-32 [facility] ([place]) Comment on above: Performed By: #### Anupam G, ADIFF, ANEU, GFR, CBC, CMP #### [address] [address] Creatinine [Mass/Vol] 0.71 mg/dL Normal 0.50-1.20 [facility] ([place]) Comment on above: Performed By: #### M G, ADIFF, ANEU, GFR, CBC, CMP #### [address] [address] Electrolyte Balance 4.0 mEq/L Normal 4.0-15.0 [facility] ([place]) Comment on above: Performed By: #### M G, ADIFF, ANEU, GFR, CBC, CMP #### [address] [address] Glucose [Mass/Vol] 107 mg/dL Normal 70-110 [facility] ([place]) Comment on above: Performed By: #### M G, ADIFF, ANEU, GFR, CBC, CMP #### [address] [address] Potassium [Moles/Vol] 4.3 mmol/L Normal 3.5-5.0 [facility] ([place]) Comment on above: Performed By: #### M G, ADIFF, ANEU, GFR, CBC, CMP #### [place] [id number] Sodium [Moles/Vol] 142 mmol/L Normal 136-145 [facility] ([place]) Comment on above: Performed By: #### M G, ADIFF, ANEU, GFR, CBC, CMP #### [address] [address] Urea nitrogen [Mass/Vol] 15.0 mg/dL Normal 8.0-22.0 [facility] ([place]) Comment on above: Performed By: #### M G, ADIFF, ANEU, GFR, CBC, CMP #### [address] [address] CBCon 12-08-2023 Erythrocyte distribution width (RBC) [Ratio] 16.1 % High 11.5-15.5 [facility] ([place]) Comment on above: Performed By: #### M G, ADIFF, ANEU, GFR, CBC, CMP #### [place] [address] Hematocrit (Bld) [Volume fraction] 33.5 % Low 34.0-46.0 [facility] ([place]) Comment on above: Performed By: #### M G, ADIFF, ANEU, GFR, CBC, CMP #### [place] [address] Hgb 11.2 G/dL Low 12.0-16.0 [facility] ([place]) Comment on above: Performed By: #### M G, ADIFF, ANEU, GFR, CBC, CMP #### [place] [address] MCH (RBC) [Entitic mass] 30.4 pg Normal 27.0-33.0 [facility] ([place]) Comment on above: Performed By: #### M G, ADIFF, ANEU, GFR, CBC, CMP #### [place] [address] MCHC 33.4 G/dL Normal 32.0-36.0 [facility] ([place]) Comment on above: Performed By: #### M G, ADIFF, ANEU, GFR, CBC, CMP #### [place] [address] MCV (RBC) [Entitic vol] 91.2 fL Normal 80.0-99.0 [facility] ([place]) Comment on above: Performed By: #### M G, ADIFF, ANEU, GFR, CBC, CMP #### [place] [address] Platelet 195 10 3/mcL Normal 150-450 [facility] ([place]) Comment on above: Performed By: #### M G, ADIFF, ANEU, GFR, CBC, CMP #### [place] [address] Platelet mean volume (Bld) [Entitic vol] 9.6 fL Normal 6.6-10.5 [facility] ([place]) Comment on above: Performed By: #### M G, ADIFF, ANEU, GFR, CBC, CMP #### [place] [address] RBC 3.67 10 6/mcL Low 4.10-5.30 [facility] ([place]) Comment on above: Performed By: #### M G, ADIFF, ANEU, GFR, CBC, CMP #### [address] [address] WBC 6.8 10 3/mcL Normal 4.5-10.8 [facility] ([place]) Comment on above: Performed By: #### M G, ADIFF, ANEU, GFR, CBC, CMP #### [address] [address] HFPon 12-08-2023 Bili Indirect 0.2 mg/dL Normal 0.1-10.0 [facility] ([place]) Comment on above: Performed By: #### M G, ADIFF, ANEU, GFR, CBC, CMP #### [place] [address] Albumin Level 2.6 G/dL Low 3.2-4.8 [facility] ([place]) Comment on above: Performed By: #### M G, ADIFF, ANEU, GFR, CBC, CMP #### [place] [address] Albumin/Globulin [Mass ratio] 1.0 {ratio} Normal 0.9-1.6 [facility] ([place]) Comment on above: Performed By: #### M G, ADIFF, ANEU, GFR, CBC, CMP #### [place] [address] ALP [Catalytic activity/Vol] 112 U/L Normal 38-126 [facility] ([place]) Comment on above: Performed By: #### M G, ADIFF, ANEU, GFR, CBC, CMP #### [place] [id number] ALT [Catalytic activity/Vol] 54 U/L High 10-49 [facility] ([place]) Comment on above: Performed By: #### M G, ADIFF, ANEU, GFR, CBC, CMP #### [place] [id number] AST [Catalytic activity/Vol] 41 U/L High 8-34 [facility] ([place]) Comment on above: Performed By: #### M G, ADIFF, ANEU, GFR, CBC, CMP #### [address] [address] Bili Direct 0.1 mg/dL Normal 0.0-0.4 [facility] ([place]) Comment on above: Result Comment: Use of this assay is not recommended for patients undergoing treatment with eltrombopag due to the potential for falsely elevated results. Performed By: #### M G, ADIFF, ANEU, GFR, CBC, CMP #### [address] [address] Bili Total 0.30 mg/dL Normal 0.20-1.20 [facility] ([place]) Comment on above: Result Comment: Use of this assay is not recommended for patients undergoing treatment with eltrombopag due to the potential for falsely elevated results. Performed By: #### M G, ADIFF, ANEU, GFR, CBC, CMP #### [place] [id number] Globulin 2.7 G/dL Normal 1.5-3.8 [facility] ([place]) Comment on above: Performed By: #### M G, ADIFF, ANEU, GFR, CBC, CMP #### [address] [address] Total Protein 5.3 G/dL Low 5.7-8.2 [facility] ([place]) Comment on above: Result Comment: No te - New Reference Range in effect 20 Performed By: #### M G, ADIFF, ANEU, GFR, CBC, CMP #### [address] [address] LABORATORYOrdered By: SYSTEM SYSTEM on 12-08-2023 Bili Indirect 0.2 mg/dL Normal 0.1 - 10.0 mg/dL Chemistry S Bilirubin.conjugated [Mass/Vol] 0.1 mg/dL Normal 0.0 - 0.4 mg/dL AH ADM SS Comment on above: Interpretive Data: U se of this assay is not recommended for patients undergoing treatment with eltrombopag due to the potential for falsely elevated results. Magnesium [Mass/Vol] 1.9 mg/dL Normal 1.6 - 2 .4 mg/dL ADM SS MGon 12-08-2023 Magnesium [Mass/Vol] 1.9 mg/dL Normal 1.6-2.4 [facility] ([place]) Comment on above: Performed By: #### M G, ADIFF, ANEU, GFR, CBC, CMP #### [address] [address] .Auto Diffon 12-07-2023 Basophil, Absolute 0.1 10 3/mcL Normal 0.0-0.3 [facility] ([place]) Comment on above: Performed By: #### A DIFF, GFR, CBC, BMP, ANEU ####[address] [address] Basophils/100 WBC (Bld) 1.1 % Normal 0.0-2.5 [facility] ([place]) Comment on above: Performed By: #### A DIFF, GFR, CBC, BMP, ANEU ####[address] [address] Eosinophil, Absolute 0.4 10 3/mcL Normal 0.0-0.7 [facility] ([place]) Comment on above: Performed By: #### A DIFF, GFR, CBC, BMP, ANEU ####[address] [address] Eosinophils/100 WBC (Bld) 6.3 % High 0.0-6.0 [facility] ([place]) Comment on above: Performed By: #### A DIFF, GFR, CBC, BMP, ANEU ####[address] [address] Lymphocyte, Absolute 1.2 10 3/mcL Normal 0.9-4.3 [facility] ([place]) Comment on above: Performed By: #### A DIFF, GFR, CBC, BMP, ANEU ####[address] [address] Lymphocytes/100 WBC (Bld) 19.6 % Low 20.0-40.0 [facility] ([place]) Comment on above: Performed By: #### A DIFF, GFR, CBC, BMP, ANEU ####[address] [address] Monocyte, Absolute 0.6 10 3/mcL Normal 0.1-1.4 [facility] ([place]) Comment on above: Performed By: #### A DIFF, GFR, CBC, BMP, ANEU ####[address] [address] Monocytes/100 WBC (Bld) 10.2 % Normal 2.0-13.0 [facility] ([place]) Comment on above: Performed By: #### A DIFF, GFR, CBC, BMP, ANEU ####[address] [address] Neutrophils/100 WBC (Bld) 62.8 % Normal 50.0-75.0 [facility] ([place]) Comment on above: Performed By: #### A DIFF, GFR, CBC, BMP, ANEU ####[place] [id number] .GFRon 12-07-2023 GFR >60 Normal [facility] ([place]) Comment on above: Result Comment: GFR Population mean for , Non- Americans Ages 20-29 = 116 mL/min/1.73 sq.m. Ages 30-39 = 107 mL/min/1.73 sq.m. Ages 40-49 = 99 mL/min/1.73 sq.m. Ages 50-59 = 93 mL/min/1.73 sq.m. Ages 60-69 = 85 mL/min/1.73 sq.m. Ages 70+ = 75 mL/min/1.73 sq.m. Chronic Kidney Disease: Less than 60 mL/min/1.73 square meters End Stage Renal Disease: Less than 15 mL/min/1.73 square meters Performed By: #### M G, ADIFF, ANEU, GFR, CBC, CMP #### [address] [address] GFR Non- >60 Normal [facility] ([place]) Comment on above: Result Comment: GFR Population mean for , Non- Americans Ages 20-29 = 116 mL/min/1.73 sq.m. Ages 30-39 = 107 mL/min/1.73 sq.m. Ages 40-49 = 99 mL/min/1.73 sq.m. Ages 50-59 = 93 mL/min/1.73 sq.m. Ages 60-69 = 85 mL/min/1.73 sq.m. Ages 70+ = 75 mL/min/1.73 sq.m. Chronic Kidney Disease: Less than 60 mL/min/1.73 square meters End Stage Renal Disease: Less than 15 mL/min/1.73 square meters Performed By: #### M G, ADIFF, ANEU, GFR, CBC, CMP #### [address] [address] .NEUABSon 12-07-2023 Neutrophil, Absolute 3.9 10 3/mcL Normal 2.3-8.1 [facility] ([place]) Comment on above: Performed By: #### A DIFF, GFR, CBC, BMP, ANEU ####[address] [address] BMPon 12-07-2023 BUN/Creatinine Ratio 22.4 ratio High 10.0-22.0 [facility] ([place]) Comment on above: Performed By: #### A DIFF, GFR, CBC, BMP, ANEU ####[address] [address] Calcium [Mass/Vol] 8.6 mg/dL Low 8.7-10.4 [facility] ([place]) Comment on above: Performed By: #### A DIFF, GFR, CBC, BMP, ANEU ####[address] [address] Chloride [Moles/Vol] 110 mmol/L Normal 98-110 [facility] ([place]) Comment on above: Performed By: #### A DIFF, GFR, CBC, BMP, ANEU ####[address] [address] CO2 [Moles/Vol] 27 mmol/L Normal 22-32 [facility] ([place]) Comment on above: Performed By: #### A DIFF, GFR, CBC, BMP, ANEU ####[address] [address] Creatinine [Mass/Vol] 0.76 mg/dL Normal 0.50-1.20 [facility] ([place]) Comment on above: Performed By: #### A DIFF, GFR, CBC, BMP, ANEU ####[place] [address] Electrolyte Balance 5.0 mEq/L Normal 4.0-15.0 [facility] ([place]) Comment on above: Performed By: #### A DIFF, GFR, CBC, BMP, ANEU ####[place] [address] Glucose [Mass/Vol] 98 mg/dL Normal 70-110 [facility] ([place]) Comment on above: Performed By: #### A DIFF, GFR, CBC, BMP, ANEU ####[place] [address] Potassium [Moles/Vol] 4.2 mmol/L Normal 3.5-5.0 [facility] ([place]) Comment on above: Performed By: #### A DIFF, GFR, CBC, BMP, ANEU ####[place] [address] Sodium [Moles/Vol] 142 mmol/L Normal 136-145 [facility] ([place]) Comment on above: Performed By: #### A DIFF, GFR, CBC, BMP, ANEU ####[place] [address] Urea nitrogen [Mass/Vol] 17.0 mg/dL Normal 8.0-22.0 [facility] ([place]) Comment on above: Performed By: #### A DIFF, GFR, CBC, BMP, ANEU ####[address] [address] CBCon 12-07-2023 Erythrocyte distribution width (RBC) [Ratio] 15.9 % High 11.5-15.5 [facility] ([place]) Comment on above: Performed By: #### A DIFF, GFR, CBC, BMP, ANEU ####[place] [address] Hematocrit (Bld) [Volume fraction] 35.2 % Normal 34.0-46.0 [facility] ([place]) Comment on above: Performed By: #### A DIFF, GFR, CBC, BMP, ANEU ####[place] [address] Hgb 11.5 G/dL Low 12.0-16.0 [facility] ([place]) Comment on above: Performed By: #### A DIFF, GFR, CBC, BMP, ANEU ####[place] [address] MCH (RBC) [Entitic mass] 29.8 pg Normal 27.0-33.0 [facility] ([place]) Comment on above: Performed By: #### A DIFF, GFR, CBC, BMP, ANEU ####[place] [address] MCHC 32.5 G/dL Normal 32.0-36.0 [facility] ([place]) Comment on above: Performed By: #### A DIFF, GFR, CBC, BMP, ANEU ####[place] [address] MCV (RBC) [Entitic vol] 91.8 fL Normal 80.0-99.0 [facility] ([place]) Comment on above: Performed By: #### A DIFF, GFR, CBC, BMP, ANEU ####[place] [address] Platelet 204 10 3/mcL Normal 150-450 [facility] ([place]) Comment on above: Performed By: #### A DIFF, GFR, CBC, BMP, ANEU ####[place] [address] Platelet mean volume (Bld) [Entitic vol] 9.3 fL Normal 6.6-10.5 [facility] ([place]) Comment on above: Performed By: #### A DIFF, GFR, CBC, BMP, ANEU ####[place] [address] RBC 3.84 10 6/mcL Low 4.10-5.30 [facility] ([place]) Comment on above: Performed By: #### A DIFF, GFR, CBC, BMP, ANEU ####[address] [address] WBC 6.2 10 3/mcL Normal 4.5-10.8 [facility] ([place]) Comment on above: Performed By: #### A DIFF, GFR, CBC, BMP, ANEU ####[address] [address] XR FLUORO 1-2 HRS TECH TIMEo n 12-07-2023 XR FLUORO 1-2 HRS TECH TIME ORIGINAL EXAMINATION: FLUORO MD - > 1 HR12/07/2023 2:35 pm Intraoperative fluoroscopy and image intensifier views of the left knee/tib fib COMPARISON: Radiographs 12/06/2023 HISTORY: ORDERING SYSTEM PROVIDED HISTORY: Reason for Exam: ex fix, , intraoperative imaging FINDINGS/IMPRESSION: Fluoroscopic time: 3 minutes 15.4 seconds Total dose (Reference Air Kerma): 49.56 MGy Number of fluoroscopic images: 24 Detail is limited. Please see intraoperative notes for additional details of the procedure. Interpreted by: Jhoan Corbett MD Preliminary Report By: Jhoan Corbett MD Electronically signed By Jhoan Corbett MD Dictated Date: 12/07/2023 3:05:22 PM Prelim Date: 12/07/2023 3:06:34 PM Sign Date: 12/07/2023 3:06:34 PM Ordering Provider: STUART Mello [facility] ([place]) .Auto Diffon 12-06-2023 Basophil, Absolute 0.1 10 3/mcL Normal 0.0-0.3 [facility] ([place]) Comment on above: Performed By: #### M G, ADIFF, ANEU, GFR, CBC, CMP #### [address] [address] Basophils/100 WBC (Bld) 0.8 % Normal 0.0-2.5 [facility] ([place]) Comment on above: Performed By: #### M G, ADIFF, ANEU, GFR, CBC, CMP #### [address] [address] Eosinophil, Absolute 0.3 10 3/mcL Normal 0.0-0.7 [facility] ([place]) Comment on above: Performed By: #### M G, ADIFF, ANEU, GFR, CBC, CMP #### [address] [address] Eosinophils/100 WBC (Bld) 3.1 % Normal 0.0-6.0 [facility] ([place]) Comment on above: Performed By: #### M G, ADIFF, ANEU, GFR, CBC, CMP #### [address] [address] Lymphocyte, Absolute 1.0 10 3/mcL Normal 0.9-4.3 [facility] ([place]) Comment on above: Performed By: #### M G, ADIFF, ANEU, GFR, CBC, CMP #### [address] [address] Lymphocytes/100 WBC (Bld) 12.1 % Low 20.0-40.0 [facility] ([place]) Comment on above: Performed By: #### M G, ADIFF, ANEU, GFR, CBC, CMP #### [address] [address] Monocyte, Absolute 0.6 10 3/mcL Normal 0.1-1.4 [facility] ([place]) Comment on above: Performed By: #### M G, ADIFF, ANEU, GFR, CBC, CMP #### [address] [address] Monocytes/100 WBC (Bld) 6.9 % Normal 2.0-13.0 [facility] ([place]) Comment on above: Performed By: #### M G, ADIFF, ANEU, GFR, CBC, CMP #### [address] [address] Neutrophils/100 WBC (Bld) 77.1 % High 50.0-75.0 [facility] ([place]) Comment on above: Performed By: #### M G, ADIFF, ANEU, GFR, CBC, CMP #### [address] [address] .GFRon 12-06-2023 GFR >60 Normal [facility] ([place]) Comment on above: Result Comment: GFR Population mean for , Non- Americans Ages 20-29 = 116 mL/min/1.73 sq.m. Ages 30-39 = 107 mL/min/1.73 sq.m. Ages 40-49 = 99 mL/min/1.73 sq.m. Ages 50-59 = 93 mL/min/1.73 sq.m. Ages 60-69 = 85 mL/min/1.73 sq.m. Ages 70+ = 75 mL/min/1.73 sq.m. Chronic Kidney Disease: Less than 60 mL/min/1.73 square meters End Stage Renal Disease: Less than 15 mL/min/1.73 square meters Performed By: #### M G, ADIFF, ANEU, GFR, CBC, CMP #### [address] [address] GFR Non- >60 Normal [facility] ([place]) Comment on above: Result Comment: GFR Population mean for , Non- Americans Ages 20-29 = 116 mL/min/1.73 sq.m. Ages 30-39 = 107 mL/min/1.73 sq.m. Ages 40-49 = 99 mL/min/1.73 sq.m. Ages 50-59 = 93 mL/min/1.73 sq.m. Ages 60-69 = 85 mL/min/1.73 sq.m. Ages 70+ = 75 mL/min/1.73 sq.m. Chronic Kidney Disease: Less than 60 mL/min/1.73 square meters End Stage Renal Disease: Less than 15 mL/min/1.73 square meters Performed By: #### M G, ADIFF, ANEU, GFR, CBC, CMP #### [address] [address] .MDWon 12-06-2023 Monocyte Distribution Width 16.65 Normal 0.00-20.00 [facility] ([place]) Comment on above: Result Comment: For ED adult patients suspected of sepsis, MDW<=20.0 does not rule out sepsis or risk of sepsis Performed By: #### M G, ADIFF, ANEU, GFR, CBC, CMP #### [address] [address] .NEUABSon 12-06-2023 Neutrophil, Absolute 6.4 10 3/mcL Normal 2.3-8.1 [facility] ([place]) Comment on above: Performed By: #### M G, ADIFF, ANEU, GFR, CBC, CMP #### [place] [address] ABO/Rh (Gel)on 12-06-2023 ABO/Rh Interp Positive Invalid Interpretation Code [facility] ([place]) Comment on above: Performed By: #### M G, ADIFF, ANEU, GFR, CBC, CMP #### [place] [address] ABO/Rh Interp Positive Invalid Interpretation Code [facility] ([place]) Comment on above: Performed By: #### M G, ADIFF, ANEU, GFR, CBC, CMP #### [place] [address] ABS (Gel)on 12-06-2023 ABSC Interp (Gel) Negative Normal [facility] ([place]) Comment on above: Performed By: #### M G, ADIFF, ANEU, GFR, CBC, CMP #### [place] [address] ABSC Interp (Gel) Negative Normal [facility] ([place]) Comment on above: Performed By: #### M G, ADIFF, ANEU, GFR, CBC, CMP #### [place] [address] Amarjit 12-06-2023 Ethanol Level <10.0 Normal [facility] ([place]) Comment on above: Performed By: #### M G, ADIFF, ANEU, GFR, CBC, CMP #### [place] [address] APTTon 12-06-2023 aPTT Coag (Bld) [Time] 38.8 s High 25.0-35.0 [facility] ([place]) Comment on above: Result Comment: For Heparin anticoagulation therapy, the recommended therapeutic range is: 54-77 seconds (APTT Correlation with Anti-Xa therapeutic range of 0.3-0.7 units/ml). PLEASE REFERENCE THE PHARMACY PROTOCOL FOR DOSING. Performed By: #### M G, ADIFF, ANEU, GFR, CBC, CMP #### [place] [id number] Heparin dose (APTT) DTI Normal [facility] ([place]) Comment on above: Performed By: #### M G, ADIFF, ANEU, GFR, CBC, CMP #### [place] [address] CBCon 12-06-2023 Erythrocyte distribution width (RBC) [Ratio] 16.2 % High 11.5-15.5 [facility] ([place]) Comment on above: Performed By: #### M G, ADIFF, ANEU, GFR, CBC, CMP #### [place] [address] Hematocrit (Bld) [Volume fraction] 36.3 % Normal 34.0-46.0 [facility] ([place]) Comment on above: Performed By: #### M G, ADIFF, ANEU, GFR, CBC, CMP #### [place] [address] Hgb 11.8 G/dL Low 12.0-16.0 [facility] ([place]) Comment on above: Performed By: #### M G, ADIFF, ANEU, GFR, CBC, CMP #### [place] [address] MCH (RBC) [Entitic mass] 29.9 pg Normal 27.0-33.0 [facility] ([place]) Comment on above: Performed By: #### M G, ADIFF, ANEU, GFR, CBC, CMP #### [place] [address] MCHC 32.3 G/dL Normal 32.0-36.0 [facility] ([place]) Comment on above: Performed By: #### M G, ADIFF, ANEU, GFR, CBC, CMP #### [place] [address] MCV (RBC) [Entitic vol] 92.4 fL Normal 80.0-99.0 [facility] ([place]) Comment on above: Performed By: #### M G, ADIFF, ANEU, GFR, CBC, CMP #### [place] [address] Platelet 242 10 3/mcL Normal 150-450 [facility] ([place]) Comment on above: Performed By: #### M Rafael, ADIFF, ANEU, GFR, CBC, CMP #### [address] [address] Platelet mean volume (Bld) [Entitic vol] 9.4 fL Normal 6.6-10.5 [facility] ([place]) Comment on above: Performed By: #### M Rafael, ADIFF, ANEU, GFR, CBC, CMP #### [address] [address] RBC 3.93 10 6/mcL Low 4.10-5.30 [facility] ([place]) Comment on above: Performed By: #### Anupam Hall, ADIFF, ANEU, GFR, CBC, CMP #### [address] [address] WBC 8.3 10 3/mcL Normal 4.5-10.8 [facility] ([place]) Comment on above: Performed By: #### Anupam Hall, ADIFF, ANEU, GFR, CBC, CMP #### [address] [address] CBC + DIFFon 12-06-2023 Baso # 0.10 x10EE3/UL Normal 0.00 - 0.10 [facility] Comment on above: Performed By: #### [id number] #### [facility],[address] [place] [id number] Basophils/100 WBC (Bld) 0.9 % Normal 0.0 - 2.0 [facility] Comment on above: Performed By: #### 2 [id number] #### [facility],[address] [place] [id number] CBC + DIFF Normal [facility] Comment on above: Result Comment: CBC- COMPLETE BLOOD COUNT Performed By: #### 2 [id number] #### [facility],[address] [place] [id number] EO # 0.30 x10EE3/UL Normal 0.00 - 0.50 [facility] Comment on above: Performed By: #### 2 [id number] #### [facility],[address] [place] [address] Eosinophils/100 WBC (Bld) 3.9 % Normal 0.0 - 7.0 [facility] Comment on above: Performed By: #### 2 [id number] #### [facility],[address] [place] [address] Erythrocyte distribution width (RBC) [Ratio] 16.5 % High 12.0 - 15.6 [facility] Comment on above: Performed By: #### 2 [id number] #### [facility],[address] [place] [address] Hematocrit (Bld) [Volume fraction] 34.2 % Normal 34.0 - 46.0 [facility] Comment on above: Performed By: #### 2 84294 #### [facility],[address] [place] [address] Hemoglobin (Bld) [Mass/Vol] 11.0 g/dL Low 12.0 - 16.0 [facility] Comment on above: Performed By: #### 2 80357 #### [facility],[address] [place] [address] Lymph # 1.00 x10EE3/UL Normal 0.80 - 2.80 [facility] Comment on above: Performed By: #### 2 56604 #### [facility],[address] [place], [place] [id number] Lymphocytes/100 WBC (Bld) 12.4 % Low 20.0 - 45.0 [facility] Comment on above: Performed By: #### 2 15571 #### [facility],[address] [place] [address] MANUAL DIFF N/A Normal [facility] Comment on above: Performed By: #### 2 26496 #### [facility],[address] [place] [address] MCH (RBC) [Entitic mass] 30 pg Normal 27 - 33 [facility] Comment on above: Performed By: #### 2 44779 #### [facility],[address] [place] [address] MCHC 32 X10 3 Normal 32 - 36 [facility] Comment on above: Performed By: #### 2 62217 #### [facility],[address] [place] [address] MCV (RBC) [Entitic vol] 92 fL Normal 80 - 99 [facility] Comment on above: Performed By: #### 2 03994 #### [place] [address] [place] # 0.50 x10EE3/UL Normal 0.20 - 1.00 [facility] Comment on above: Performed By: #### 2 03171 #### [facility],[address] [place] [address] MONOS % 5.8 % Normal 0.0 - 10.0 [facility] Comment on above: Performed By: #### 2 04042 #### [facility],[address] [place] [address] Morphology Martell (Bld) [Interp] N/A Normal [facility] Comment on above: Performed By: #### 2 68189 #### [facility],[address] [place] [address] Neut # 6.50 x10EE3/UL Normal 1.50 - 7.10 [facility] Comment on above: Performed By: #### 2 41080 #### [place] [address] Neutrophils/100 WBC (Bld) 77.0 % High 46.0 - 76.0 [facility] Comment on above: Performed By: #### 2 13050 #### [facility],[address] [place] [address] PLATELET 241 x10EE3/UL Normal 150 - 450 [facility] Comment on above: Performed By: #### 2 95278 #### [facility],[address] [place] [address] Platelet mean volume (Bld) [Entitic vol] 9.3 fL Normal 6.6 - 10.5 [facility] Comment on above: Result Comment: AUTO MATED DIFFERENTIAL Performed By: #### 2 76577 #### [facility],[address] [place] [address] RBC 3.71 x 10EE6/UL Low 4.10 - 5.30 [facility] Comment on above: Performed By: #### 2 45606 #### [facility],[address] [place] [address] WBC 8.4 x 10EE3/UL Normal 4.5 - 10.8 [facility] Comment on above: Performed By: #### 2 14913 #### [facility],[address] [place] [address] CMPon 12-06-2023 Albumin Level 3.6 G/dL Normal 3.2-4.8 [facility] ([place]) Comment on above: Performed By: #### M G, ADIFF, ANEU, GFR, CBC, CMP #### [address] [address] Albumin/Globulin [Mass ratio] 1.1 {ratio} Normal 0.9-1.6 [facility] ([place]) Comment on above: Performed By: #### M G, ADIFF, ANEU, GFR, CBC, CMP #### [address] [address] ALP [Catalytic activity/Vol] 157 U/L High 38-126 [facility] ([place]) Comment on above: Performed By: #### M G, ADIFF, ANEU, GFR, CBC, CMP #### [address] [address] ALT [Catalytic activity/Vol] 115 U/L High 10-49 [facility] ([place]) Comment on above: Performed By: #### M G, ADIFF, ANEU, GFR, CBC, CMP #### [address] [address] AST [Catalytic activity/Vol] 301 U/L High 8-34 [facility] ([place]) Comment on above: Performed By: #### M G, ADIFF, ANEU, GFR, CBC, CMP #### [address] [address] Bili Total 0.40 mg/dL Normal 0.20-1.20 [facility] ([place]) Comment on above: Result Comment: Use of this assay is not recommended for patients undergoing treatment with eltrombopag due to the potential for falsely elevated results. Performed By: #### M G, ADIFF, ANEU, GFR, CBC, CMP #### [address] [address] BUN/Creatinine Ratio 21.6 ratio Normal 10.0-22.0 [facility] ([place]) Comment on above: Performed By: #### M G, ADIFF, ANEU, GFR, CBC, CMP #### [address] [address] Calcium [Mass/Vol] 8.9 mg/dL Normal 8.7-10.4 [facility] ([place]) Comment on above: Performed By: #### M G, ADIFF, ANEU, GFR, CBC, CMP #### [address] [address] Chloride [Moles/Vol] 108 mmol/L Normal 98-110 [facility] ([place]) Comment on above: Performed By: #### M G, ADIFF, ANEU, GFR, CBC, CMP #### [address] [address] CO2 [Moles/Vol] 28 mmol/L Normal 22-32 [facility] ([place]) Comment on above: Performed By: #### M G, ADIFF, ANEU, GFR, CBC, CMP #### [address] [address] Creatinine [Mass/Vol] 0.88 mg/dL Normal 0.50-1.20 [facility] ([place]) Comment on above: Performed By: #### M G, ADIFF, ANEU, GFR, CBC, CMP #### [address] [address] Electrolyte Balance 5.0 mEq/L Normal 4.0-15.0 [facility] ([place]) Comment on above: Performed By: #### M G, ADIFF, ANEU, GFR, CBC, CMP #### [address] [address] Globulin 3.2 G/dL Normal 1.5-3.8 [facility] ([place]) Comment on above: Performed By: #### M G, ADIFF, ANEU, GFR, CBC, CMP #### [address] [address] Glucose [Mass/Vol] 104 mg/dL Normal 70-110 [facility] ([place]) Comment on above: Performed By: #### M G, ADIFF, ANEU, GFR, CBC, CMP #### [address] [address] Potassium [Moles/Vol] 4.5 mmol/L Normal 3.5-5.0 [facility] ([place]) Comment on above: Performed By: #### M G, ADIFF, ANEU, GFR, CBC, CMP #### [address] [address] Sodium [Moles/Vol] 141 mmol/L Normal 136-145 [facility] ([place]) Comment on above: Performed By: #### M G, ADIFF, ANEU, GFR, CBC, CMP #### [address] [address] Total Protein 6.8 G/dL Normal 5.7-8.2 [facility] ([place]) Comment on above: Result Comment: No te - New Reference Range in effect 20 Performed By: #### M G, ADIFF, ANEU, GFR, CBC, CMP #### [address] [address] Urea nitrogen [Mass/Vol] 19.0 mg/dL Normal 8.0-22.0 [facility] ([place]) Comment on above: Performed By: #### M G, DAVID, ANEU, GFR, CBC, CMP #### [facility] [address] [place] [address] CMP with eGFRon 12-06-2023 AGE 53 years Normal [facility] Comment on above: Performed By: #### 2 55105 #### [facility],[address] [place] [address] Albumin [Mass/Vol] 3.0 g/dL Low 3.4 - 5.0 [facility] Comment on above: Performed By: #### 2 34315 #### [facility],[address] [place] [address] Albumin/Globulin [Mass ratio] 0.9 {ratio} Normal 0.9 - 1.6 [facility] Comment on above: Performed By: #### 2 17517 #### [facility],[address] [place] [address] ALK PHOS 122 U/L High 46 - 116 [facility] Comment on above: Performed By: #### 2 48635 #### [facility],[address] [place] [address] ALT [Catalytic activity/Vol] 40 U/L Normal 16 - 63 [facility] Comment on above: Performed By: #### 2 65694 #### [facility],[address] [place] [address] Anion gap [Moles/Vol] 8 mmol/L Low 10 - 20 [facility] Comment on above: Performed By: #### 2 41711 #### [facility],[address] [place] [address] AST [Catalytic activity/Vol] 96 U/L High 13 - 39 [facility] Comment on above: Performed By: #### 2 26618 #### [facility],[address] [place] [address] B/C RATIO 21 ratio Normal 0 - 30 [facility] Comment on above: Performed By: #### 2 78532 #### [facility],[address] [place], [place] [phone] Bilirubin [Mass/Vol] 0.4 mg/dL Normal 0.2 - 1.0 [facility] Comment on above: Performed By: #### 2 88690 #### [facility],[address] [place] [address] Calcium [Mass/Vol] 8.2 mg/dL Low 8.5 - 10.1 [facility] Comment on above: Performed By: #### 2 55173 #### [facility],[address] [place] [address] Chloride [Moles/Vol] 107 mmol/L Normal 98 - 107 [facility] Comment on above: Performed By: #### 2 19007 #### [facility],[address] [place] [address] CMP with eGFR Normal [facility] Comment on above: Result Comment: COMP REHENSIVE METABOLIC PANEL Performed By: #### 2 16699 #### [facility],[address] [place], [place] [phone] CO2 [Moles/Vol] 30.9 mmol/L Normal 21.0 - 32.0 [facility] Comment on above: Performed By: #### 2 24174 #### [facility],[address] [place], [place] [phone] Creatinine [Mass/Vol] 1.00 mg/dL Normal 0.55 - 1.02 [facility] Comment on above: Performed By: #### 2 78720 #### [facility],[address] [place], [place] [phone] eGFR 58 ML/MINUTE Low 60 - 999 [facility] Comment on above: Performed By: #### 2 62374 #### [facility],[address] [place] [address] GFR/1.73 sq M.predicted among non-blacks MDRD (S/P/Bld) [Vol rate/Area] mL/min/{1.73_m2} Normal 60 - 999 [facility] Comment on above: Result Comment: ACCO RDING TO THE NATIONAL KIDNEY DISEASE EDUCATION PROGRAM(NKDE), A NORMAL eGFR IS A VALUE GREATER THAN OR EQUAL TO 60 ML/MIN/1.73 SQ METERS. CHRONIC KIDNEY DISEASE: <60mL/MIN/1.73 SQ METERS KIDNEY FAILURE: <15mL/MIN/1.73 SQ METERS THIS TEST SHOULD ONLY BE USED FOR PATIENTS 18 YEARS OF AGE AND OLDER. Performed By: #### 2 00685 #### [address] [address] Globulin (S) [Mass/Vol] 3.5 g/dL Normal 1.5 - 3.8 [facility] Comment on above: Performed By: #### 2 37850 #### [address] [address] Glucose [Mass/Vol] 97 mg/dL Normal 74 - 106 [facility] Comment on above: Performed By: #### 2 89205 #### [address] [address] Potassium [Moles/Vol] 4.4 mmol/L Normal 3.5 - 5.1 [facility] Comment on above: Performed By: #### 2 19807 #### [address] [address] Protein [Mass/Vol] 6.5 g/dL Normal 6.4 - 8.2 [facility] Comment on above: Performed By: #### 2 94671 #### [address] [address] Sodium [Moles/Vol] 141 mmol/L Normal 136 - 145 [facility] Comment on above: Performed By: #### 2 25672 #### [address] [address] Urea nitrogen [Mass/Vol] 21 mg/dL High 7 - 18 [facility] Comment on above: Performed By: #### 2 01742 #### [facility],[address] [place] [address] KNEE W/O CONTRAST LEFTon 12-06-2023 CT KNEE W/O CONTRAST LEFT ORIGINAL EXAMINATION: CT OF THE LEFT KNEE WITHOUT CONTRAST 12/06/2023 1:48 pm TECHNIQUE: CT of the left knee was performed without the administration of intravenous contrast. Multiplanar reformatted images are provided for review. Automated exposure control, iterative reconstruction, and/or weight based adjustment of the mA/kV was utilized to reduce the radiation dose to as low as reasonably achievable. COMPARISON: Same day knee x-ray HISTORY ORDERING SYSTEM PROVIDED HISTORY: Reason for Exam: Comminuted proximal tibial fracture FINDINGS: Bones: There are is a comminuted mildly displaced, impacted, and laterally apex angulated fracture involving the proximal tibial metadiaphysis. There is approximately 2.1 cm of impaction noted medially as well as approximately 1.1 cm of medial displacement of the distal fracture. There is no apparent involvement of the tibial plateau. There is an additional subtle oblique nondisplaced she has its fracture through the fibular head best appreciated on the coronal series image 25. There is no intra-articular extension of either fracture identified. Soft Tissue: There is moderate soft tissue swelling particularly along the lateral aspect of the leg adjacent to the fracture sites. No localized hematoma is identified. Joint: The tibia/femur and tibia/fibula articulation are maintained. There is mild tricompartmental degenerative changes. IMPRESSION: Comminuted, displaced, and impacted fracture of the proximal tibial metadiaphysis. Additional nondisplaced oblique fracture through the fibular head. No intra-articular extension is identified for either fracture. I have personally reviewed the images of this examination and agree with the resident's findings and interpretation. Interpreted by: Arnie Nation Preliminary Report By: Lit Gambino Electronically signed By Arnie Nation Dictated Date: 12/06/2023 1:49:27 PM Prelim Date: 12/06/2023 2:04:44 PM Sign Date: 12/06/2023 2:04:44 PM Ordering Provider: ABHINAV ESCALANTE [facility] ([place]) CT PELVIS W/O CONTRASTon CT PELVIS W/O CONTRAST ORIGINAL EXAMINATION: CT OF THE PELVIS WITHOUT CONTRAST 12/06/2023 1:37 pm TECHNIQUE: CT of the pelvis was performed without the administration of intravenous contrast. Multiplanar reformatted images are provided for review. Adjustment of mA and/or kV according to patient size was utilized. Automated exposure control, iterative reconstruction, and/or weight based adjustment of the mA/kV was utilized to reduce the radiation dose to as low as reasonably achievable. COMPARISON: Same day left knee x-ray. HISTORY ORDERING SYSTEM PROVIDED HISTORY: Reason for Exam: Comminuted proximal tibial fracture, PT IS A TRANSFER, STATES FELL ON KNEE WHEN TRYING TO SIT DOWN, PAIN IN LEFT HIP fall let hip pain FINDINGS: Patient body habitus results in significant quantum mottle limiting some details. Bones: No evidence of acute fracture or dislocation. No aggressive appearing osseous abnormality or periostitis. Soft Tissue: No significant soft tissue edema or fluid collections. Visualized peritoneal/pelvic contents are without obvious acute abnormality. Joint: There is mild degenerative changes of bilateral hip and SI joints. Severe degenerative changes L5-S1. IMPRESSION: Patient body habitus results in severe quantum mottle limiting some detail. In that context, no acute osseous abnormality is identified. I have personally reviewed the images of this examination and agree with the resident's findings and interpretation. Interpreted by: Arnie Nation Preliminary Report By: Lit Gambino Electronically signed By Arnie Nation Dictated Date: 12/06/2023 1:38:19 PM Prelim Date: 12/06/2023 2:06:29 PM Sign Date: 12/06/2023 2:06:29 PM Ordering Provider: ABHINAV ESCALANTE [facility] ([place]) FEMUR LT 2+ VIEWSon 12-06-19 24 FEMUR LT 2+ VIEWS [place] [address] Patient: QUINTEN YARBROUGH Phone#: : 1970 Age: 53 Gender: F Pt. Type: ER Account: [id number] Location: [facility] Ordering: DR. ABHINAV VARGAS Exam Date: 12/06/2023/8:31 Family Phys: JASWINDER Pierre JASWANT Charge Code: [id number] Physician: [place] Order #: [id number] Dose#: PROCEDURE: X-RAY FEMUR LT MIN 2 VIEWS COMPARISON: [facility], XR, FEMUR LT, 12/19/2016, 16:21. INDICATIONS: Fall. FINDINGS: BONES: Study limited by patient body habitus. Lateral view of the proximal femur unable to be obtained. No appreciable fracture in the proximal or distal femur. No appreciable dislocation on the AP view. SOFT TISSUES: Negative. No visible soft tissue swelling. EFFUSION: None visible. OTHER: Negative. CONCLUSION: 1. No appreciable acute osseous abnormality Dictated by: Yasir Thrasher MD on 12/06/2023 at 8:59 Approved by: Yasir Thrasher MD on 12/06/2023 at 9:05 Normal [facility] KNEE 2 VIEWS LTon 12-06-2023 KNEE 2 VIEWS LT [place] [address] Patient: QUINTEN YARBROUGH Phone#: : 1970 Age: 53 Gender: F Pt. Type: ER Account: [id number] Location: 052 Ordering: DR. ABHINAV VARGAS Exam Date: 12/06/2023/8:35 Family Phys: JASWINDER Pierre JASWANT Charge Code: [id number] Physician: [place] Order #: [id number] Dose#: PROCEDURE: X-RAY KNEE LT 2 VIEWS COMPARISON: None. INDICATIONS: Fall. FINDINGS: BONES: Study limited by patient ability to position for the exam. There is a comminuted fracture of the proximal tibia metaphysis. Fracture does not appear to involve the articular surface. No fracture of the fibula, cannot exclude a nondisplaced fracture. SOFT TISSUES: Negative. No visible soft tissue swelling. EFFUSION: None visible. OTHER: Negative. CONCLUSION: 1. Comminuted fracture of the proximal tibial metaphysis. There is anterior angulation. Dictated by: Yasir Thrasher MD on 12/06/2023 at 9:05 Approved by: Yasir Thrasher MD on 12/06/2023 at 9:08 Normal [facility] LABORATORYOrdered By: Edward Parra on 12-06-2023 ABO and Rh group Nom (Bld) Blood group A Rh(D) positive Invalid Interpretation Code AH BB Auto SS Blood group antibody screen Ql Negative ABSC (12/06/23 5:43 PM) Normal AH BB Auto SS LABORATORYOrdered By: Reji Davenport on 12-06-2023 PT Coag (PPP) [Time] 11.8 s Normal 9.0 - 1 4.2 seconds [facility] SS Comment on above: Interpretive Data: E ffective 04/17/08, Protime results may be affected by some antibiotics (i.e. Ciprofloxacin, Azithromycin, Bactrim) which may potentiate the action of oral anticoagulants, with further increases in Protime/INR. PT International Ratio 1.0 ratio Invalid Interpretation Code [facility] SS Comment on above: Interpretive Data: Jalen lugo [employer] (CHEST, 1992, 102:312S-25S) recommended therapeutic range for oral anticoagulant therapy is: LOW RISK: Prophylaxis of venous thrombosis INR: 2.0-3.0 Treatment of pulmonary embolism 2.0-3.0 Prevention of systemic embolism 2.0-3.0 HIGH RISK: Mechanical prosthetic valves 2.5-3.5 LABORATORYOrdered By: Carlos Garrett on 12-06-2023 ABO and Rh group Nom (Bld) Blood group A Rh(D) positive Invalid Interpretation Code BB Auto SS Blood group antibody screen Ql Negative ABSC (12/06/23 12:23 PM) Normal AH BB Auto SS LABORATORYOrdered By: Melinda Burns on 12-06-2023 aPTT Coag (Bld) [Time] 38.8 s High 25.0 - 35.0 seconds [facility] SS Comment on above: Interpretive Data: F or Heparin anticoagulation therapy, the recommended therapeutic range is: 54-77 seconds (APTT Correlation with Anti-Xa therapeutic range of 0.3-0.7 units/ml). PLEASE REFERENCE THE PHARMACY PROTOCOL FOR DOSING. Heparin dose (APTT) DTI (12/06/23 12:23 PM) Normal AH Coagulation S PT Coag (PPP) [Time] 12.0 s Normal 9.0 - 1 4.2 seconds [facility] SS Comment on above: Interpretive Data: E ffective 04/17/08, Protime results may be affected by some antibiotics (i.e. Ciprofloxacin, Azithromycin, Bactrim) which may potentiate the action of oral anticoagulants, with further increases in Protime/INR. PT International Ratio 1.0 ratio Invalid Interpretation Code [facility] SS Comment on above: Interpretive Data: T he [employer] (CHEST, 1991, 102:312S-25S) recommended therapeutic range for oral anticoagulant therapy is: LOW RISK: Prophylaxis of venous thrombosis INR: 2.0-3.0 Treatment of pulmonary embolism 2.0-3.0 Prevention of systemic embolism 2.0-3.0 HIGH RISK: Mechanical prosthetic valves 2.5-3.5 LABORATORYOrdered By: SYSTEM SYSTEM on 12-06-2023 Ethanol [Mass/Vol] mg/dL Invalid Interpretation Code ADM SS Monocyte distribution width Auto (Bld) [Entitic vol] 16.65 1 Normal 0.00 - 20.00 [facility] SS Comment on above: Result Comment: For ED adult patients suspected of sepsis, MDW<=20.0 does not rule out sepsis or risk of sepsis PROon 12-06-2023 INR Coag (PPP) [Relative time] 1.0 {INR} Normal [facility] ([place]) Comment on above: Result Comment: [employer] (CHEST, 1991, 102:312S-25S) recommended therapeutic range for oral anticoagulant therapy is: LOW RISK: Prophylaxis of venous thrombosis INR: 2.0-3.0 Treatment of pulmonary embolism 2.0-3.0 Prevention of systemic embolism 2.0-3.0 HIGH RISK: Mechanical prosthetic valves 2.5-3.5 Performed By: #### M G, ADIFF, ANEU, GFR, CBC, CMP #### [address] [address] PT Coag (PPP) [Time] 11.8 s Normal 9.0-14.2 [facility] ([place]) Comment on above: Result Comment: Effe ctive 04/17/08, Protime results may be affected by some antibiotics (i.e. Ciprofloxacin, Azithromycin, Bactrim) which may potentiate the action of oral anticoagulants, with further increases in Protime/INR. Performed By: #### M G, ADIFF, ANEU, GFR, CBC, CMP #### [facility] [address] [place] [address] INR Coag (PPP) [Relative time] 1.0 {INR} Normal [facility] ([place]) Comment on above: Result Comment: [employer] (CHEST, 1992, 102:312S-25S) recommended therapeutic range for oral anticoagulant therapy is: LOW RISK: Prophylaxis of venous thrombosis INR: 2.0-3.0 Treatment of pulmonary embolism 2.0-3.0 Prevention of systemic embolism 2.0-3.0 HIGH RISK: Mechanical prosthetic valves 2.5-3.5 Performed By: #### M G, ADIFF, ANEU, GFR, CBC, CMP #### [facility] [address] [place] [address] PT Coag (PPP) [Time] 12.0 s Normal 9.0-14.2 [facility] ([place]) Comment on above: Result Comment: Effe ctive 04/17/08, Protime results may be affected by some antibiotics (i.e. Ciprofloxacin, Azithromycin, Bactrim) which may potentiate the action of oral anticoagulants, with further increases in Protime/INR. Performed By: #### M G, ADIFF, ANEU, GFR, CBC, CMP #### [place] [id number] [address] [place] [address] TIBIA-FIBULA LTon 12-06-2023 TIBIA-FIBULA LT [place] [id number] Patient: QUINTEN YARBROUGH Phone#: : 1970 Age: 53 Gender: F Pt. Type: ER Account: [id number] Location: 052 Ordering: DR. ABHINAV VARGAS Exam Date: 12/06/2023/8:42 Family Phys: JASWINDER MICHAUD Charge Code: [id number] Physician: [place] Order #: [id number] Dose#: PROCEDURE: X-RAY TIB FIB LT 2 VIEWS COMPARISON: [facility], XR, TIBIA-FIBULA LT, 05/19/2023, 20:50. INDICATIONS: Fall. FINDINGS: BONES: Comminuted fracture of the proximal tibial metaphysis. No fracture of the distal tibia or fibula. SOFT TISSUES: There is stranding in the subcutaneous soft tissues throughout the distal lower extremity. EFFUSION: None visible. OTHER: Negative. CONCLUSION: 1. Comminuted fracture of the proximal tibial metaphysis. 2. Distal tibia and fibula appear intact. Dictated by: Yasir Thrasher MD on 12/06/2023 at 9:08 Approved by: Yasir Thrasher MD on 12/06/2023 at 9:09 Normal [facility] TROPONIN I, HIGH SENSITIVITY on 12-06-2023 HS TROPONIN 4.0 pg/mL Normal 0.0 - 51.4 [facility] Comment on above: Performed By: #### 2 [id number] #### [place] [id number] XR CHEST 1 VIEWon 12-06-2023 XR CHEST 1 VIEW ORIGINAL EXAMINATION: ONE XRAY VIEW OF THE CHEST12/06/2023 12:13 pm COMPARISON: 11/12/2020 HISTORY: ORDERING SYSTEM PROVIDED HISTORY: Reason for Exam: pain; trauma patient FINDINGS: The heart size is stable. The pulmonary vascularity is within normal limits. There is no pleural effusion or pneumothorax. The lungs are clear. IMPRESSION: No acute radiographic findings. Interpreted by: Arnie Nation Preliminary Report By: Arnie Nation Electronically signed By Arnie Nation Dictated Date: 12/06/2023 1:19:42 PM Prelim Date: 12/06/2023 1:20:15 PM Sign Date: 12/06/2023 1:20:15 PM Ordering Provider: ABHINAV ESCALANTE Normal [facility] ([place]) CBC (NO DIFF)on 10-29-2023 CBC panel Auto (Bld) Normal [facility] Comment on above: Result Comment: CBC( WITHOUT DIFFERENTIAL) Performed By: #### 2 63840 #### [address] [address] Erythrocyte distribution width (RBC) [Ratio] 16.3 % High 12.0 - 15.6 [facility] Comment on above: Performed By: #### 2 29968 #### [address],[place] [address] Hematocrit (Bld) [Volume fraction] 35.8 % Normal 34.0 - 46.0 [facility] Comment on above: Performed By: #### 2 00857 #### [facility],[address] [place] [address] 56487 Hemoglobin (Bld) [Mass/Vol] 11.8 g/dL Low 12.0 - 16.0 [facility] Comment on above: Performed By: #### 2 07918 #### [facility],[address] [place] [address] 52256 MCH (RBC) [Entitic mass] 30 pg Normal 27 - 33 [facility] Comment on above: Performed By: #### 2 23898 #### [facility],[address] [place] [address] 35548 MCHC 33 X10 3 Normal 32 - 36 [facility] Comment on above: Performed By: #### 2 98677 #### [facility],[address] [place] [address] 41393 MCV (RBC) [Entitic vol] 92 fL Normal 80 - 99 [facility] Comment on above: Performed By: #### 2 73897 #### [facility],[address] [place] [address] 56389 PLATELET 270 x10EE3/UL Normal 150 - 450 [facility] Comment on above: Performed By: #### 2 39254 #### [facility],[address] [place] [address] 38852 Platelet mean volume (Bld) [Entitic vol] 8.6 fL Normal 6.6 - 10.5 [facility] Comment on above: Result Comment: {CB] Performed By: #### 2 55445 #### [facility],[address] [place] [address] 54004 RBC 3.90 x 10EE6/UL Low 4.10 - 5.30 [facility] Comment on above: Performed By: #### 2 27129 #### [facility],[address] [place] [address] 38588 WBC 5.7 x 10EE3/UL Normal 4.5 - 10.8 [facility] Comment on above: Performed By: #### 2 94279 #### [facility],[address] [place] [address] 75747 CMP with eGFRon 10-29-2023 AGE 53 years Normal [facility] Comment on above: Performed By: #### 2 01535 #### [facility],[address] [place] [address] 27724 Albumin [Mass/Vol] 3.4 g/dL Normal 3.4 - 5.0 [facility] Comment on above: Performed By: #### 2 82408 #### [facility],[address] [place] [address] 97710 Albumin/Globulin [Mass ratio] 0.9 {ratio} Normal 0.9 - 1.6 [facility] Comment on above: Performed By: #### 2 43200 #### [facility],[address] [place] [address] 72839 ALK PHOS 129 U/L High 46 - 116 [facility] Comment on above: Performed By: #### 2 18403 #### [facility],[address] [place] [address] 77891 ALT [Catalytic activity/Vol] 34 U/L Normal 14 - 59 [facility] Comment on above: Performed By: #### 2 05675 #### [facility],[address] [place] [address] 60606 Anion gap [Moles/Vol] 12 mmol/L Normal 10 - 20 [facility] Comment on above: Performed By: #### 2 58817 #### [facility],[address] [place] [address] 14864 AST [Catalytic activity/Vol] 21 U/L Normal 13 - 39 [facility] Comment on above: Performed By: #### 2 36144 #### [facility],[address] [place] [address] 14234 B/C RATIO 27 ratio Normal 0 - 30 [facility] Comment on above: Performed By: #### 2 98518 #### [facility],[address] [place] [address] 38358 Bilirubin [Mass/Vol] 0.2 mg/dL Normal 0.2 - 1.0 [facility] Comment on above: Performed By: #### 2 32645 #### [facility],[address] [place] [address] 01031 Calcium [Mass/Vol] 8.8 mg/dL Normal 8.5 - 10.1 [facility] Comment on above: Performed By: #### 2 54745 #### [facility],[address] [place] [address] 35211 Chloride [Moles/Vol] 107 mmol/L Normal 98 - 107 [facility] Comment on above: Performed By: #### 2 20922 #### [facility],[address] [place] [address] 47014 CMP with eGFR Normal [facility] Comment on above: Result Comment: COMP REHENSIVE METABOLIC PANEL Performed By: #### 2 61211 #### [facility],[address] [place] [address] 14311 CO2 [Moles/Vol] 27.3 mmol/L Normal 21.0 - 32.0 [facility] Comment on above: Performed By: #### 2 23510 #### [facility],[address] [place] [address] 91165 Creatinine [Mass/Vol] 0.94 mg/dL Normal 0.55 - 1.02 [facility] Comment on above: Performed By: #### 2 93316 #### [facility],[address] [place] [address] 65851 GFR/1.73 sq M.predicted among non-blacks MDRD (S/P/Bld) [Vol rate/Area] mL/min/{1.73_m2} Normal 60 - 999 [facility] Comment on above: Performed By: #### 2 00330 #### [facility],[address] [place] [address] 80137 Result Comment: ACCO RDING TO THE NATIONAL KIDNEY DISEASE EDUCATION PROGRAM(NKDE), A NORMAL eGFR IS A VALUE GREATER THAN OR EQUAL TO 60 ML/MIN/1.73 SQ METERS. CHRONIC KIDNEY DISEASE: <60mL/MIN/1.73 SQ METERS KIDNEY FAILURE: <15mL/MIN/1.73 SQ METERS THIS TEST SHOULD ONLY BE USED FOR PATIENTS 18 YEARS OF AGE AND OLDER. Globulin (S) [Mass/Vol] 3.9 g/dL High 1.5 - 3.8 [facility] Comment on above: Performed By: #### 2 28083 #### [facility],[address] [place] [address] 38768 Glucose [Mass/Vol] 60 mg/dL Low 74 - 106 [facility] Comment on above: Performed By: #### 2 81494 #### [address] [address] Potassium [Moles/Vol] 4.0 mmol/L Normal 3.5 - 5.1 [facility] Comment on above: Performed By: #### 2 37669 #### [facility],[address] [place] [address] 12884 Protein [Mass/Vol] 7.3 g/dL Normal 6.4 - 8.2 [facility] Comment on above: Performed By: #### 2 22609 #### [address] [address] Sodium [Moles/Vol] 142 mmol/L Normal 136 - 145 [facility] Comment on above: Performed By: #### 2 79246 #### [facility],[address] [place] [address] 30920 Urea nitrogen [Mass/Vol] 25 mg/dL High 7 - 18 [facility] Comment on above: Performed By: #### 2 04896 #### [facility],[address] [place] [address] BRAIN W/O CONTRASTon 10-05 CT BRAIN W/O CONTRAST [address] [address] Patient: QUINTEN YARBROUGH Phone#: : 1970 Age: 53 Gender: F Pt. Type: ER Account: [id number] Location: 052 Ordering: DR. BAILEY MERCHANT Exam Date: 10/29/2023/12:27 Family Phys: Charge Code: [id number] Physician: [place] Order #: [id number] Dose#: [id number] PROCEDURE: CT BRAIN WITHOUT CONTRAST COMPARISON: [facility], CT, BRAIN W/O CON, 08/13/2021, 15:44. [facility], CT, BRAIN W/O CON, 08/11/2023, 18:20. INDICATIONS: Headache. TECHNIQUE: CT images were obtained without contrast material. All CT scans at this facility use dose modulation, iterative reconstruction, and/or weight based dosing when appropriate to reduce radiation dose to as low as reasonably achievable. IV CONTRAST: No IV contrast used,0ml TOTAL DOSE: 57.50 CTDIvol(mGy) FINDINGS: CEREBRUM: No edema, hemorrhage, mass, acute infarction, or inappropriate atrophy. CEREBELLUM: No edema, hemorrhage, mass, acute infarction, or inappropriate atrophy. BRAINSTEM: No edema, hemorrhage, mass, acute infarction, or inappropriate atrophy. CSF SPACES: Ventricles, cisterns, and sulci are appropriate for age. No hydrocephalus, subarachnoid hemorrhage, or mass. SKULL: No mass or other significant visible lesion. SINUSES: Limited views demonstrate no significant mucosal thickening or fluid. ORBITS: Limited views are unremarkable. OTHER: There is opacification of left petrous apex air cells but without change since previous examination August 13, 2021 and August 11, 2023. CONCLUSION: 1. There is no evidence of acute intracranial abnormality. 2. Opacification of the left petrous apex air cells unchanged from previous exams. Dictated by: July Tavera MD on 10/29/2023 at 12:35 Approved by: July Tavera MD on 10/29/2023 at 12:54 Normal [facility] URINALYSISon 10-29-2023 Bilirubin Ql (U) Negative Normal NORMAL: NEGATIVE [facility] Comment on above: Performed By: #### 2 89441 #### [facility],[address] [place] [address] 47194 Clarity (U) clear Normal NORMAL: CLEAR [facility] Comment on above: Performed By: #### 2 12592 #### [facility],[address] [place] [address] 89505 Color (U) p.yel Normal NORMAL: YELLOW [facility] Comment on above: Performed By: #### 2 33517 #### [facility],[address] [place] [address] 94773 Glucose Ql (U) NORM Normal NORMAL: NORMAL [facility] Comment on above: Performed By: #### 2 32669 #### [facility],[address] [place] [address] 67709 Hemoglobin Ql (U) Negative Normal NORMAL: NEGATIVE [facility] Comment on above: Performed By: #### 2 62577 #### [facility],[address] [place] [address] 93479 Ketone Negative Normal NORMAL: NEGATIVE [facility] Comment on above: Performed By: #### 2 24464 #### [facility],[address] [place] [address] 99989 Leukocytes Negative Normal NORMAL: NEGATIVE [facility] Comment on above: Performed By: #### 2 91891 #### [facility],[address] [place] [address] 16318 Nitrite Ql (U) Negative Normal NORMAL: NEGATIVE [facility] Comment on above: Performed By: #### 2 89346 #### [facility],[address] [place] [address] pH (U) 6 [pH] Normal NORMAL: 5.0-8.0 [facility] Comment on above: Performed By: #### 2 07134 #### [facility],[address] [place] [address] Protein Ql (U) Negative Normal NORMAL: NEGATIVE [facility] Comment on above: Performed By: #### 2 60603 #### [facility],[address] [place] [address] Sp [place] 1.010 Normal NORMAL: 1.010-1.030 [facility] Comment on above: Performed By: #### 2 16518 #### [facility],[address] [place] [address] Specimen Type UNSPECIFIED Normal [facility] Comment on above: Performed By: #### 2 94228 #### [facility],[address] [place] [address] Urinalysis dipstick W Reflex Microscopic panel (U) NOT INDICATED Normal [facility] Comment on above: Performed By: #### 2 95873 #### [facility],[address] [place] [address] Urobilinog NORM Normal NORMAL: NORMAL [facility] Comment on above: Performed By: #### 2 53574 #### [facility],[address] [place] [address] EMERGENCY REPORTon 3 EMERGENCY REPORT [facility] EMERGENCY ROOM REPORT NAME ACCOUNT SEX AGE ADMIT DISCHARGE PT MED. RECORD# NUMBER DATE DATE TYPE ZENON [id number] F 53 08/23/23 08/24/23 3 QUINTEN Berkowitz [id number] ROOM: ER DATE OF : 1970 DICTATING PHYSICIAN: Carlos Simeon ADDENDUM: Date seen is August 23, 2023 at 7 p.m. PLAN/DISPOSITION: I did discuss the case with Dr. Herrera. He had just admitted this patient here last week. The patient has refused to go to a [place] [facility] [place] facility, which is what the Internal Medicine Service thought she should do, but she has refused. Dr. Herrera said he had just treated her here last week as an inpatient, so he felt it would be reasonable to start her on oral antibiotics and have her followup with her primary care physician, which is [facility]. I placed the patient on Keflex 500 mg 1 p.o. every 6 hours x10 days, dispensed #40 with no refill and Bactrim DS 1 p.o. b.i.d. x10 days, dispensed #20 with no refill. I had given her Rocephin and vancomycin here. The patient was discharged in a clinically stable condition. Nursing notes reviewed. Dictated By: Carlos Simeon DO 08/24/23 01:39 JOB #: [id number] Transcribed By: lary 08/25/23 09:13 Electronically signed by: E-Sign: Dr. Carlos Simeon D.O. 08/28/23 08:01 Page 1 of 1 QUINTEN YARBROUGH Emergency Room Report Normal [facility] EMERGENCY REPORT [facility] EMERGENCY ROOM REPORT NAME ACCOUNT SEX AGE ADMIT DISCHARGE PT MED. RECORD# NUMBER DATE DATE TYPE ZENON, [id number] F 53 08/23/23 08/24/23 3 QUINTEN Berkowitz [id number] ROOM: ER DATE OF : 1970 DICTATING PHYSICIAN: Carlos Simeon Date seen is August 23, 2023 at 7 p.m. HISTORY OF PRESENT ILLNESS: The patient is a 53-year-old female complaining of bilateral lower extremity redness, warmth, and swelling. She does have a history of lymphedema. She states she has been running a fever as well. She complains of pain pretty much all over, but it is mostly her legs that hurt the worse. She complains of feeling dizzy and at certain points in time she feels like she is going to pass out because she just does not feel well. PCP is [facility]. PAST MEDICAL HISTORY: The patient has a past medical history of congestive heart failure, hypertension, atrial fibrillation, depression and anxiety, bipolar disorder, schizophrenia, history of ovarian cancer, and type 2 diabetes. PAST SURGICAL HISTORY: Past surgeries include an appendectomy, cholecystectomy, left rotator cuff surgery, gastric bypass surgery, and complete hysterectomy. ALLERGIES: She is allergic to amoxicillin, contrast media, iodine, Augmentin, baclofen, and latex. SOCIAL HISTORY: She is not a smoker. She denies any alcohol or drug use. She lives alone. REVIEW OF SYSTEMS: The patient does admit to fever and chills. She denies any sore throat, ear pain, nasal congestion. She denies any chest pain, shortness of breath, cough, sputum, wheezing, abdominal pain, nausea, vomiting, diarrhea, constipation. She does complain of bilateral lower extremity redness, warmth, and swelling. She does complain of a headache and some diffuse generalized weakness and fatigue and at times feels like she is dizzy and is going to pass out. Further review of systems is negative. PHYSICAL EXAMINATION: VITAL SIGNS: Temperature is 98.7, pulse 62, respiratory rate 36, blood pressure 140/72, pulse oximetry 99% on room air, weight 419 pounds. GENERAL APPEARANCE: The patient is alert and oriented x3. She does appear in some mild distress secondary to not feeling well. She is very tearful, crying, but she is pleasant and cooperative. She makes eye contact. She speaks in full sentences. Page 1 of 3 QUINTEN YARBROUGH Emergency Room Report QUINTEN YARBROUGH : 1970 HEENT: Head appears atraumatic. Pupils are equal and reactive to light. Red reflex intact bilaterally. Extraocular muscles are intact. No conjunctival injection. Nose: Exhibits no rhinorrhea or epistaxis. Mouth: Mucous membranes are dry. No pharyngeal erythema. Uvula is midline and elevates. NECK: Neck is supple. Trachea is midline. No JVD or lymphadenopathy. No posterior cervical tenderness. No nuchal rigidity. LUNGS: Clear to auscultation bilaterally. No adventitious sounds are noted. No accessory muscle use noted. CV: Heart rate and rhythm are regular, somewhat distant heart sounds, but I note no murmur. ABDOMEN: Abdomen is soft, morbidly obese, and nontender with normoactive bowel sounds x4 quadrants. No guarding or rigidity. No rebound. No palpable abdominal masses. No hepatosplenomegaly. EXTREMITIES: I do note diffuse generalized redness to the lower extremities from the knees down. It is warm to touch. It is tender to touch diffusely in both legs. No cyanosis. Peripheral pulses are intact. She does move all 4 extremities symmetrically, but she is somewhat weak, but no focal weakness noted. I see no open sores or lesions right now; although, the patient tells me she did have an open lesion on the lateral aspect of her left lower leg about a week ago that was drained. SKIN: Skin is warm and dry. No diaphoresis. She does have Shari in the perineal region. NEUROLOGIC: Neurologic examine shows the patient to be alert and oriented x4. There is some diffuse generalized weakness is noted. She has a very anxious and tearful affect. DIAGNOSTIC DATA: EKG was done at 1804 hours. It shows a normal sinus rhythm at a rate of 65 beats per minute. No acute ST segment changes were noted. [place] is approximately 0 degrees. Blood work here showed a lactate to be 0.9. White count was 8.9, hemoglobin 10.8, hematocrit 34.3, and platelet count 210,000. Sodium was 140, potassium 4.5, chloride 108, CO2 24.7, BUN 43, creatinine 1.49. I do go back and check some previous kidney functions. Her BUN was 58 and creatinine was 1.81 back on August 19 of this year. It was 56 and 1.74 back on August 19, 2023. Going back to July 24, 2023, it was 28 and 0.90. Her BUN and creatinine has been gradually climbing. It is a little better today than it has been previously. Her GFR today is 37. Her glucose is 92. AST is 53, which was mildly elevated. ALT was elevated at 101. Alkaline phosphatase was 199. Total bilirubin was 0.4. Her liver funct (more content not included)... Normal [facility] LIPID PROFILEon 08-24-2023 Cholesterol [Mass/Vol] 112 mg/dL Normal 0 - 240 [facility] Comment on above: Performed By: #### 2 99640 #### [facility],[address] [place] [address] 85416 Cholesterol in HDL [Mass/Vol] 68 mg/dL High 40 - 60 [facility] Comment on above: Performed By: #### 2 91881 #### [facility],[address] [place] [address] 46231 Cholesterol in LDL [Mass/Vol] 32 mg/dL Normal 0 - 129 [facility] Comment on above: Performed By: #### 2 70778 #### [facility],[address] [place] [address] Cholesterol.total/Cho lesterol in HDL [Mass ratio] 1.6 {ratio} Normal 0.0 - 5.0 [facility] Comment on above: Performed By: #### 2 48234 #### [facility],[address] [place] [address] Lipid 1996 panel Normal [facility] Comment on above: Result Comment: LIPI D PROFILE Performed By: #### 2 36375 #### [facility],[address] [place] [address] Triglyceride [Mass/Vol] 59 mg/dL Normal 0 - 150 [facility] Comment on above: Performed By: #### 2 31655 #### [facility],[address] [place] [address] TSH W/ REFLEX TO FREE T4on 10-24-2022 TSH Qn 1.58 m[IU]/L Normal 0.34 - 5.60 [facility] Comment on above: Performed By: #### 2 78720 #### [facility],[address] [place] [address] CBC + DIFFon 08-23-2023 Baso # 0.10 x10EE3/UL Normal 0.00 - 0.10 [facility] Comment on above: Performed By: #### 2 83689 #### [facility],[address] [place] [address] Basophils/100 WBC (Bld) 1.4 % Normal 0.0 - 2.0 [facility] Comment on above: Performed By: #### 2 60897 #### [facility],[address] [place] [address] CBC + DIFF Normal [facility] Comment on above: Result Comment: CBC- COMPLETE BLOOD COUNT Performed By: #### 2 51357 #### [facility],[address] [place] [address] 76347 EO # 0.40 x10EE3/UL Normal 0.00 - 0.50 [facility] Comment on above: Performed By: #### 2 19648 #### [facility],[address] [place], [place] [id number] Eosinophils/100 WBC (Bld) 4.1 % Normal 0.0 - 7.0 [facility] Comment on above: Performed By: #### 2 50885 #### [facility],[address] [place] [address] Erythrocyte distribution width (RBC) [Ratio] 16.0 % High 12.0 - 15.6 [facility] Comment on above: Performed By: #### 2 03510 #### [facility],[address] [place] [address] Hematocrit (Bld) [Volume fraction] 34.3 % Normal 34.0 - 46.0 [facility] Comment on above: Performed By: #### 2 42789 #### [facility],[address] [place] [address] Hemoglobin (Bld) [Mass/Vol] 10.8 g/dL Low 12.0 - 16.0 [facility] Comment on above: Performed By: #### 2 82699 #### [facility],[address] [place] [address] 93486 Lymph # 1.90 x10EE3/UL Normal 0.80 - 2.80 [facility] Comment on above: Performed By: #### 2 21241 #### [facility],[address] [place], [place] [id number] Lymphocytes/100 WBC (Bld) 21.7 % Normal 20.0 - 45.0 [facility] Comment on above: Performed By: #### 2 66260 #### [facility],[address] [place] [address] MANUAL DIFF N/A Normal [facility] Comment on above: Performed By: #### 2 07742 #### [facility],[address] [place], [place] [id number] MCH (RBC) [Entitic mass] 29 pg Normal 27 - 33 [facility] Comment on above: Performed By: #### 2 21038 #### [facility],[address] [place] [address] MCHC 32 X10 3 Normal 32 - 36 [facility] Comment on above: Performed By: #### 2 11437 #### [facility],[address] [place] [address] 46232 MCV (RBC) [Entitic vol] 93 fL Normal 80 - 99 [facility] Comment on above: Performed By: #### 2 90653 #### [facility],[address] [place] [address] [place] # 0.70 x10EE3/UL Normal 0.20 - 1.00 [facility] Comment on above: Performed By: #### 2 87102 #### [facility],[address] [place] [address] 60307 MONOS % 7.8 % Normal 0.0 - 10.0 [facility] Comment on above: Performed By: #### 2 38679 #### [facility],[address] [place], [place] [phone] Morphology Martell (Bld) [Interp] N/A Normal [facility] Comment on above: Result Comment: {CD] Performed By: #### 2 96360 #### [facility],[address] [place], [place] [id number] Neut # 5.80 x10EE3/UL Normal 1.50 - 7.10 [facility] Comment on above: Performed By: #### 2 11693 #### [facility],[address] [place], [place] [phone] Neutrophils/100 WBC (Bld) 65.0 % Normal 46.0 - 76.0 [facility] Comment on above: Performed By: #### 2 78505 #### [facility],[address] [place] [address] 51452 PLATELET 210 x10EE3/UL Normal 150 - 450 [facility] Comment on above: Performed By: #### 2 41920 #### [facility],[address] [place] [address] 24045 Platelet mean volume (Bld) [Entitic vol] 10.6 fL High 6.6 - 10.5 [facility] Comment on above: Result Comment: AUTO MATED DIFFERENTIAL Performed By: #### 2 28261 #### [facility],[address] [place] [address] 66724 RBC 3.67 x 10EE6/UL Low 4.10 - 5.30 [facility] Comment on above: Performed By: #### 2 35686 #### [facility],[address] [place] [address] 74883 WBC 8.9 x 10EE3/UL Normal 4.5 - 10.8 [facility] Comment on above: Performed By: #### 2 73022 #### [facility],[address] [place] [address] 95833 CHEST 1 VIEWon 08-23-2023 CHEST 1 VIEW [place] [address] Patient: QUINTEN YARBROUGH Phone#: : 1970 Age: 53 Gender: F Pt. Type: ER Account: [id number] Location: [facility] Ordering: DEVIN COLLIER Exam Date: 08/23/2023/18:17 Family Phys: Charge Code: [id number] Physician: [place] Order #: [id number] Dose#: PROCEDURE: X-RAY CHEST 1 VIEW COMPARISON: [facility], , CHEST 1 VIEW, 08/18/2023, 17:49. INDICATIONS: Dizziness. FINDINGS: LUNGS: Exam is taken with poor inspiratory effort.. No significant pulmonary parenchymal abnormalities. VASCULATURE: Mild vascular prominence. CARDIAC: Mild stable cardiomegaly. MEDIASTINUM: Normal. No visible mass or adenopathy. PLEURA: Normal. No effusion or pleural thickening. BONES: Normal. No fracture or visible bony lesion. OTHER: Negative. CONCLUSION: 1. Mild vascular prominence. There has been no significant interval change. Dictated by: July Tavera MD on 08/23/2023 at 19:20 Approved by: July Tavera MD on 08/23/2023 at 19:21 Normal [facility] CMP with eGFRon 08-23-2023 AGE 53 years Normal [facility] Comment on above: Performed By: #### 2 37801 #### [facility],[address] [place] [address] 28742 Albumin [Mass/Vol] 3.2 g/dL Low 3.4 - 5.0 [facility] Comment on above: Performed By: #### 2 34183 #### [facility],[address] [place] [address] 49080 Albumin/Globulin [Mass ratio] 0.8 {ratio} Low 0.9 - 1.6 [facility] Comment on above: Performed By: #### 2 22565 #### [facility],[address] [place] [address] 81308 ALK PHOS 199 U/L High 46 - 116 [facility] Comment on above: Performed By: #### 2 28021 #### [facility],[address] [place] [address] 68825 ALT [Catalytic activity/Vol] 101 U/L High 14 - 59 [facility] Comment on above: Performed By: #### 2 87715 #### [facility],[address] [place] [address] 40841 Anion gap [Moles/Vol] 12 mmol/L Normal 10 - 20 [facility] Comment on above: Performed By: #### 2 86899 #### [facility],[address] [place] [address] 67229 AST [Catalytic activity/Vol] 53 U/L High 13 - 39 [facility] Comment on above: Performed By: #### 2 35974 #### [facility],[address] [place] [address] 92831 B/C RATIO 29 ratio Normal 0 - 30 [facility] Comment on above: Performed By: #### 2 17850 #### [facility],[address] [place] [address] 36766 Bilirubin [Mass/Vol] 0.4 mg/dL Normal 0.2 - 1.0 [facility] Comment on above: Performed By: #### 2 07643 #### [facility],[address] [place] [address] 29541 Calcium [Mass/Vol] 8.6 mg/dL Normal 8.5 - 10.1 [facility] Comment on above: Performed By: #### 2 55450 #### [facility],[address] [place] [address] 23280 Chloride [Moles/Vol] 108 mmol/L High 98 - 107 [facility] Comment on above: Performed By: #### 2 24665 #### [facility],[address] [place] [address] 58358 CMP with eGFR Normal [facility] Comment on above: Result Comment: COMP REHENSIVE METABOLIC PANEL Performed By: #### 2 24230 #### [facility],[address] [place] [address] 59478 CO2 [Moles/Vol] 24.7 mmol/L Normal 21.0 - 32.0 [facility] Comment on above: Performed By: #### 2 67849 #### [facility],[address] [place] [address] 29616 Creatinine [Mass/Vol] 1.49 mg/dL High 0.55 - 1.02 [facility] Comment on above: Performed By: #### 2 87795 #### [facility],[address] [place] [address] 10864 eGFR 37 ML/MINUTE Low 60 - 999 [facility] Comment on above: Performed By: #### 2 12627 #### [facility],[address] [place] [address] 43240 eGFR(AA) 45 ML/MINUTE Low 60 - 999 [facility] Comment on above: Result Comment: ACCO RDING TO THE NATIONAL KIDNEY DISEASE EDUCATION PROGRAM(NKDE), A NORMAL eGFR IS A VALUE GREATER THAN OR EQUAL TO 60 ML/MIN/1.73 SQ METERS. CHRONIC KIDNEY DISEASE: <60mL/MIN/1.73 SQ METERS KIDNEY FAILURE: <15mL/MIN/1.73 SQ METERS THIS TEST SHOULD ONLY BE USED FOR PATIENTS 18 YEARS OF AGE AND OLDER. Performed By: #### 2 14531 #### [address] [address] Globulin (S) [Mass/Vol] 3.8 g/dL Normal 1.5 - 3.8 [facility] Comment on above: Performed By: #### 2 47749 #### [facility],[address] [place] [address] 78464 Glucose [Mass/Vol] 92 mg/dL Normal 74 - 106 [facility] Comment on above: Performed By: #### 2 26454 #### [facility],[address] [place] [address] 55009 Potassium [Moles/Vol] 4.5 mmol/L Normal 3.5 - 5.1 [facility] Comment on above: Performed By: #### 2 04394 #### [address] [address] Protein [Mass/Vol] 7.0 g/dL Normal 6.4 - 8.2 [facility] Comment on above: Performed By: #### 2 20302 #### [address] [address] Sodium [Moles/Vol] 140 mmol/L Normal 136 - 145 [facility] Comment on above: Performed By: #### 2 73156 #### [facility],[address] [place] [address] 53507 Urea nitrogen [Mass/Vol] 43 mg/dL High 7 - 18 [facility] Comment on above: Performed By: #### 2 75041 #### [facility],[address] [place] [address] 84221 CULTURE BLOOD [LEA]on Microscopic examination of blood, culture CULTURE BLOOD [LEA] _BLOOD CULTURE_ GO TO [employer] REPORTS AND ATTACHMENTS FOR SCANNED REPORT 08/30/23.929.DNP.CO MPLETE Normal [facility] Comment on above: Performed By: #### 2 02927 #### [facility],[address] [place] [address] 84083 Microscopic examination of blood, culture CULTURE BLOOD [LEA] _BLOOD CULTURE_ GO TO [employer] REPORTS AND ATTACHMENTS FOR SCANNED REPORT 08/30/23.928.DNP.CO MPLETE Normal [facility] Comment on above: Performed By: #### 2 51476 #### [facility],[address] [place] [address] 22356 LACTATEon 08-23-2023 Lactate [Moles/Vol] 0.9 mmol/L Normal 0.4 - 2.0 [facility] Comment on above: Performed By: #### 2 89630 #### [facility],[address] [place] [address] 86847 NT-proBNPon 08-23-2023 Natriuretic peptide B (Bld) [Mass/Vol] 315 pg/mL High 0 - 125 [facility] Comment on above: Performed By: #### 2 55945 #### [facility],[address] [place] [address] 29679 TROPONIN I, HIGH SENSITIVITY on 08-23-2023 HS TROPONIN 4.8 pg/mL Normal 0.0 - 51.4 [facility] Comment on above: Performed By: #### 2 56170 #### [facility],[address] [place] [address] EMERGENCY REPORTon 3 EMERGENCY REPORT [facility] EMERGENCY ROOM REPORT NAME ACCOUNT SEX AGE ADMIT DISCHARGE PT MED. RECORD# NUMBER DATE DATE TALHA YARBROUGH [id number] F [id number] 08/18/23 08/19/23 3 QUINTEN Berkowitz [id number] ROOM: ER DATE OF : 1970 DICTATING PHYSICIAN: Abhinav Vargas HISTORY OF PRESENT ILLNESS: The patient is a 53-year-old female who came in by squad. She was seen initially by Dr. Collier, and then orders were written. The patient's complaint was that she could not stay awake. However, here in the emergency room, she stayed awake. She takes Tramadol at home. She takes Seroquel at home, and she states she just feels like she does not have any energy. Her provider is a person by the name of Dr. Gupta. She used to have a provider in [place] in [facility], but her insurance changed such that she no longer can see that provider. She states that she has not had an FL. She is not a diabetic, but she has been diagnosed with CHF in the past. She has not had any nausea or vomiting or diarrhea. She has been taking her water pills. Basically then she states that she has pain all over, and she has only one Tramadol left at home. She states she has been using some Tylenol and ibuprofen, which has not helped her any. She states that she did have atrial fibrillation at one time. She does not have physical therapy at home. She does have a caregiver, and the caregiver she states is the one who suggested that she come to the hospital today. She did not talk to her provider. She is a very large lady. She is nice to talk to. She denies any COVID-19 exposure. She denies headache. She denies any fever. She denies sore throat. She denies cough. She states that she really does not have shortness of breath. It is just that she states that she feels weak. She denies any nausea, vomiting, diarrhea. She denies any urinary symptoms. PAST SURGICAL HISTORY: As far as surgeries go, she had gastric bypass in 2008, and she lost some 200 pounds from like 600 down to 400 pounds, but she has gained a little bit back lately according to Dr. Moncada. PHYSICAL EXAMINATION: GENERAL: On exam, she is pleasant, and I talked to her for quite a while a couple of times. HEENT: Her neck is supple. She is known to all of us in the emergency room. She has good eye contact. No anterior, posterior, or cervical nodes. She has chronic lymphedema of the lower extremities, but it is pretty much nonpitting. ABDOMEN: Abdomen is soft, very large, but nontender. LUNGS: Clear. There are no rales or rhonchi. DIAGNOSTIC DATA: Chest x-ray shows no mass, infiltrate, pneumothorax, or widened mediastinum. Initially, I thought maybe she had some interstitial findings, but I did not really see too much change from an x-ray of July 27, 2023. Her EKG is a rate of 47, which shows no evidence of acute FL or ischemia and is sinus. Page 1 of 2 QUINTEN YARBROUGH Emergency Room Report QUINTEN YARBROUGH : 1970 Her initial laboratories showed an H&H of 11 and 35, and her platelets were 194,000, so all of that is okay. Her potassium was 5.8. Her BUN was 56, 182 was her creatinine, which was up from previous creatinine from August 15, which was 94. BNP was slightly elevated at 223, but it is similar to before. Troponins were normal. We rechecked her potassium a couple of times. It was 5.5 and then 5.2. The only problem was her SGOT and SGPT started to go up a little bit, which was unusual. EMERGENCY DEPARTMENT COURSE AND TREATMENT: In general, her vital signs at arrival show a 97 temperature, 60 pulse, 105/60 blood pressure, and 98% saturation. Her pulse rate was 50s here in the emergency room. I talked to her for a while. Blood gas has a little bit of acidosis to it. She was 7.24 with her pH, but her pCO2 was 50, pO2 78, and the saturation was 93. After she was here for a while and sitting up, her saturations were normal. She was 98% on room air. She was alert and she was not sleepy. I think she is just dehydrated. She got Tramadol and she got some Tylenol for discomfort here in the emergency room. Her aches were generalized. She says she is just from her bones all over the place, and then she states it is from her arthritis. She cannot get around well. She takes Tramadol for that, and I believe that maybe that is the case, but I am not inclined to give her any narcotics other than the Tramadol. The Tramadol helped her here in the emergency room. She remained alert. PLAN/DISPOSITION: We are going to check her CMP one more time to make sure to see if maybe that is not the reason for the elevation of her alkaline phosphatase and SGOT, and if that is, she maybe could go home. I have spoke to Dr. Moncada regarding her care, who indicated that he thought she was probably dehydrated and her general weakness was from her dehydration and she could go home once she was feeling better. The patient will be passed off to the attending com (more content not included)... Normal [facility] CMP with eGFRon 08-19-2023 AGE 53 years Normal [facility] Comment on above: Performed By: #### 2 03701 #### [facility],[address] [place] [address] 81213 Albumin [Mass/Vol] 2.9 g/dL Low 3.4 - 5.0 [facility] Comment on above: Performed By: #### 2 04096 #### [facility],[address] [place] [address] 61276 Albumin/Globulin [Mass ratio] 0.7 {ratio} Low 0.9 - 1.6 [facility] Comment on above: Performed By: #### 2 73723 #### [facility],[address] [place] [address] 05319 ALK PHOS 357 U/L High 46 - 116 [facility] Comment on above: Performed By: #### 2 53273 #### [facility],[address] [place] [address] 26195 ALT [Catalytic activity/Vol] 271 U/L High 14 - 59 [facility] Comment on above: Performed By: #### 2 91441 #### [facility],[address] [place] [address] 82120 Anion gap [Moles/Vol] 14 mmol/L Normal 10 - 20 [facility] Comment on above: Performed By: #### 2 06826 #### [facility],[address] [place] [address] 44076 AST [Catalytic activity/Vol] 579 U/L High 13 - 39 [facility] Comment on above: Performed By: #### 2 13461 #### [facility],[address] [place] [address] 84435 B/C RATIO 32 ratio High 0 - 30 [facility] Comment on above: Performed By: #### 2 52372 #### [facility],[address] [place] [address] 70199 Bilirubin [Mass/Vol] 0.2 mg/dL Normal 0.2 - 1.0 [facility] Comment on above: Performed By: #### 2 24533 #### [facility],[address] [place] [address] 92797 Calcium [Mass/Vol] 8.1 mg/dL Low 8.5 - 10.1 [facility] Comment on above: Performed By: #### 2 64079 #### [facility],[address] [place] [address] 95065 Chloride [Moles/Vol] 104 mmol/L Normal 98 - 107 [facility] Comment on above: Performed By: #### 2 91084 #### [facility],[address] [place] [address] 42266 CMP with eGFR Normal [facility] Comment on above: Result Comment: COMP REHENSIVE METABOLIC PANEL Performed By: #### 2 98590 #### [facility],[address] [place] [address] 57110 CO2 [Moles/Vol] 24.1 mmol/L Normal 21.0 - 32.0 [facility] Comment on above: Performed By: #### 2 64978 #### [facility],[address] [place] [address] 22591 Creatinine [Mass/Vol] 1.81 mg/dL High 0.55 - 1.02 [facility] Comment on above: Performed By: #### 2 47165 #### [facility],[address] [place] [address] 51014 eGFR 29 ML/MINUTE Low 60 - 999 [facility] Comment on above: Performed By: #### 2 33888 #### [facility],[address] [place] [address] 19298 eGFR(AA) 36 ML/MINUTE Low 60 - 999 [facility] Comment on above: Result Comment: ACCO RDING TO THE NATIONAL KIDNEY DISEASE EDUCATION PROGRAM(NKDE), A NORMAL eGFR IS A VALUE GREATER THAN OR EQUAL TO 60 ML/MIN/1.73 SQ METERS. CHRONIC KIDNEY DISEASE: <60mL/MIN/1.73 SQ METERS KIDNEY FAILURE: <15mL/MIN/1.73 SQ METERS THIS TEST SHOULD ONLY BE USED FOR PATIENTS 18 YEARS OF AGE AND OLDER. Performed By: #### 2 00938 #### [facility],[address] [place] [address] 52451 Globulin (S) [Mass/Vol] 3.9 g/dL High 1.5 - 3.8 [facility] Comment on above: Performed By: #### 2 84420 #### [facility],[address] [place] [address] 51043 Glucose [Mass/Vol] 81 mg/dL Normal 74 - 106 [facility] Comment on above: Performed By: #### 2 07875 #### [facility],[address] [place] [address] 02904 Potassium [Moles/Vol] 5.5 mmol/L High 3.5 - 5.1 [facility] Comment on above: Performed By: #### 2 17199 #### [facility],[address] [place] [address] 79663 Protein [Mass/Vol] 6.8 g/dL Normal 6.4 - 8.2 [facility] Comment on above: Performed By: #### 2 29370 #### [facility],[address] [place] [address] 70462 Sodium [Moles/Vol] 137 mmol/L Normal 136 - 145 [facility] Comment on above: Performed By: #### 2 59505 #### [facility],[address] [place] [address] 45602 Urea nitrogen [Mass/Vol] 58 mg/dL High 7 - 18 [facility] Comment on above: Performed By: #### 2 88757 #### [facility],[address] [place] [address] 85965 AGE 53 years Normal [facility] Comment on above: Performed By: #### 2 01026 #### [facility],[address] [place] [address] 91870 Albumin [Mass/Vol] 2.9 g/dL Low 3.4 - 5.0 [facility] Comment on above: Performed By: #### 2 00929 #### [facility],[address] [place] [address] 53598 Albumin/Globulin [Mass ratio] 0.7 {ratio} Low 0.9 - 1.6 [facility] Comment on above: Performed By: #### 2 38480 #### [facility],[address] [place] [address] 89444 ALK PHOS 264 U/L High 46 - 116 [facility] Comment on above: Performed By: #### 2 96309 #### [facility],[address] [place] [address] 06809 ALT [Catalytic activity/Vol] 153 U/L High 14 - 59 [facility] Comment on above: Performed By: #### 2 14546 #### [facility],[address] [place] [address] 93011 Anion gap [Moles/Vol] 13 mmol/L Normal 10 - 20 [facility] Comment on above: Performed By: #### 2 46460 #### [facility],[address] [place] [address] 96082 AST [Catalytic activity/Vol] 339 U/L High 13 - 39 [facility] Comment on above: Performed By: #### 2 29674 #### [facility],[address] [place] [address] 80425 B/C RATIO 32 ratio High 0 - 30 [facility] Comment on above: Performed By: #### 2 98756 #### [facility],[address] [place] [address] 66618 Bilirubin [Mass/Vol] 0.3 mg/dL Normal 0.2 - 1.0 [facility] Comment on above: Performed By: #### 2 49949 #### [facility],[address] [place] [address] 00982 Calcium [Mass/Vol] 8.2 mg/dL Low 8.5 - 10.1 [facility] Comment on above: Performed By: #### 2 83074 #### [facility],[address] [place] [address] 35877 Chloride [Moles/Vol] 104 mmol/L Normal 98 - 107 [facility] Comment on above: Performed By: #### 2 74384 #### [facility],[address] [place] [address] 29493 CMP with eGFR Normal [facility] Comment on above: Result Comment: COMP REHENSIVE METABOLIC PANEL Performed By: #### 2 94544 #### [facility],[address] [place] [address] 67403 CO2 [Moles/Vol] 25.6 mmol/L Normal 21.0 - 32.0 [facility] Comment on above: Performed By: #### 2 86958 #### [facility],[address] [place] [address] 41643 Creatinine [Mass/Vol] 1.74 mg/dL High 0.55 - 1.02 [facility] Comment on above: Performed By: #### 2 73837 #### [facility],[address] [place] [address] 71322 eGFR 31 ML/MINUTE Low 60 - 999 [facility] Comment on above: Performed By: #### 2 36498 #### [facility],[address] [place] [address] 16350 eGFR(AA) 37 ML/MINUTE Low 60 - 999 [facility] Comment on above: Result Comment: ACCO RDING TO THE NATIONAL KIDNEY DISEASE EDUCATION PROGRAM(NKDE), A NORMAL eGFR IS A VALUE GREATER THAN OR EQUAL TO 60 ML/MIN/1.73 SQ METERS. CHRONIC KIDNEY DISEASE: <60mL/MIN/1.73 SQ METERS KIDNEY FAILURE: <15mL/MIN/1.73 SQ METERS THIS TEST SHOULD ONLY BE USED FOR PATIENTS 18 YEARS OF AGE AND OLDER. Performed By: #### 2 99912 #### [facility],[address] [place] [address] 85261 Globulin (S) [Mass/Vol] 3.9 g/dL High 1.5 - 3.8 [facility] Comment on above: Performed By: #### 2 87159 #### [facility],[address] [place] [address] 53611 Glucose [Mass/Vol] 81 mg/dL Normal 74 - 106 [facility] Comment on above: Performed By: #### 2 91673 #### [facility],[address] [place] [address] 35257 Potassium [Moles/Vol] 5.2 mmol/L High 3.5 - 5.1 [facility] Comment on above: Performed By: #### 2 70511 #### [facility],[address] [place] [address] 75205 Protein [Mass/Vol] 6.8 g/dL Normal 6.4 - 8.2 [facility] Comment on above: Performed By: #### 2 44242 #### [facility],[address] [place] [address] 44949 Sodium [Moles/Vol] 137 mmol/L Normal 136 - 145 [facility] Comment on above: Performed By: #### 2 33697 #### [facility],[address] [place] [address] 52790 Urea nitrogen [Mass/Vol] 56 mg/dL High 7 - 18 [facility] Comment on above: Performed By: #### 2 68051 #### [facility],[address] [place] [address] 75840 ARTERIAL BLOOD GAS ANALYSISo n 08-18-2023 ALLENS TEST Positive Normal [facility] Comment on above: Result Comment: { TI ME CALLED . Performed By: #### 2 37675 #### [facility],[address] [place], [place] [address] ARTERIAL BLOOD GAS ANALYSIS Normal [facility] Comment on above: Result Comment: INRGID RIAL BLOOD GAS Performed By: #### 2 69242 #### [facility],[address] [place] [address] 30626 BE -6 Low -2 - 3 [facility] Comment on above: Performed By: #### 2 52370 #### [facility],[address] [place] [address] 72530 HCO3 (Bld) [Moles/Vol] 22 mmol/L Normal 20 - 24 [facility] Comment on above: Performed By: #### 2 97992 #### [facility],[address] [place] [address] 08367 Heart rate 48 /min Normal [facility] Comment on above: Performed By: #### 2 15661 #### [facility],[address] [place] [address] 71926 MODALITY RA Normal [facility] Comment on above: Performed By: #### 2 39150 #### [facility],[address] [place] [address] 48237 PCO2 50 mm Hg High 35 - 45 [facility] Comment on above: Performed By: #### 2 37562 #### [facility],[address] [place] [address] 13567 pH (Bld) 7.24 [pH] Low 7.35 - 7.45 [facility] Comment on above: Performed By: #### 2 94562 #### [facility],[address] [place] [address] 01545 PO2 78 mm Hg Low 80 - 105 [facility] Comment on above: Performed By: #### 2 32297 #### [facility],[address] [place] [address] SAMPLE SITE L RAD Normal [facility] Comment on above: Performed By: #### 2 23544 #### [facility],[address] [place] [address] SaO2 93 Low 95 - 98 [facility] Comment on above: Result Comment: TIME RESULT CALLED _. 08/18/23.1802.DWP. { FIO2/LPM .21 Performed By: #### 2 95393 #### [facility],[address] [place] [address] TOTAL RR 18 Normal [facility] Comment on above: Performed By: #### 2 00288 #### [facility],[address] [place] [address] VENT N/A Normal [facility] Comment on above: Performed By: #### 2 28339 #### [facility],[address] [place] [address] CBC + DIFFon 08-18-2023 Baso # 0.10 [id number] Normal 0.00 - 0.10 [facility] Comment on above: Performed By: #### 2 25639 #### [facility],[address] [place] [address] 89481 Basophils/100 WBC (Bld) 0.6 % Normal 0.0 - 2.0 [facility] Comment on above: Performed By: #### 2 44552 #### [facility],[address] [place], [place] [id number] CBC + DIFF Normal [facility] Comment on above: Result Comment: CBC- COMPLETE BLOOD COUNT Performed By: #### 2 20437 #### [facility],[address] [place] [address] 14265 EO # 0.50 x10EE3/UL Normal 0.00 - 0.50 [facility] Comment on above: Performed By: #### 2 66885 #### [facility],[address] [place] [address] 77092 Eosinophils/100 WBC (Bld) 4.3 % Normal 0.0 - 7.0 [facility] Comment on above: Performed By: #### 2 82972 #### [facility],[address] [place] [address] Erythrocyte distribution width (RBC) [Ratio] 16.3 % High 12.0 - 15.6 [facility] Comment on above: Performed By: #### 2 19802 #### [facility],[address] [place], [place] [phone] Hematocrit (Bld) [Volume fraction] 35.7 % Normal 34.0 - 46.0 [facility] Comment on above: Performed By: #### 2 48450 #### [facility],[address] [place] [address] 99749 Hemoglobin (Bld) [Mass/Vol] 11.2 g/dL Low 12.0 - 16.0 [facility] Comment on above: Performed By: #### 2 79306 #### [facility],[address] [place] [address] 94882 Lymph # 1.60 x10EE3/UL Normal 0.80 - 2.80 [facility] Comment on above: Performed By: #### 2 95394 #### [facility],[address] [place] [address] 66849 Lymphocytes/100 WBC (Bld) 15.0 % Low 20.0 - 45.0 [facility] Comment on above: Performed By: #### 2 25797 #### [facility],[address] [place] [address] 88574 MANUAL DIFF N/A Normal [facility] Comment on above: Performed By: #### 2 64783 #### [facility],[address] [place], [place] [phone] MCH (RBC) [Entitic mass] 30 pg Normal 27 - 33 [facility] Comment on above: Performed By: #### 2 10728 #### [facility],[address] [place] [address] MCHC 32 X10 3 Normal 32 - 36 [facility] Comment on above: Performed By: #### 2 38278 #### [facility],[address] [place] [address] 44963 MCV (RBC) [Entitic vol] 94 fL Normal 80 - 99 [facility] Comment on above: Performed By: #### 2 01292 #### [facility],[address] [place] [address] 61548 Hutchinson # 0.70 x10EE3/UL Normal 0.20 - 1.00 [facility] Comment on above: Performed By: #### 2 93896 #### [facility],[address] [place] [address] 86451 MONOS % 7.0 % Normal 0.0 - 10.0 [facility] Comment on above: Performed By: #### 2 82957 #### [facility],[address] [place] [address] 04024 Morphology Martell (Bld) [Interp] N/A Normal [facility] Comment on above: Result Comment: {CD] Performed By: #### 2 46311 #### [facility],[address] [place] [address] 70343 Neut # 7.80 x10EE3/UL High 1.50 - 7.10 [facility] Comment on above: Performed By: #### 2 28833 #### [facility],[address] [place] [address] 20564 Neutrophils/100 WBC (Bld) 73.1 % Normal 46.0 - 76.0 [facility] Comment on above: Performed By: #### 2 33773 #### [address] [address] PLATELET 194 x10EE3/UL Normal 150 - 450 [facility] Comment on above: Performed By: #### 2 18100 #### [facility],[address] [place] [address] 99934 Platelet mean volume (Bld) [Entitic vol] 10.4 fL Normal 6.6 - 10.5 [facility] Comment on above: Result Comment: AUTO MATED DIFFERENTIAL Performed By: #### 2 16401 #### [facility],[address] [place] [address] 37213 RBC 3.78 x 10EE6/UL Low 4.10 - 5.30 [facility] Comment on above: Performed By: #### 2 18492 #### [facility],[address] [place] [address] 74856 WBC 10.7 x 10EE3/UL Normal 4.5 - 10.8 [facility] Comment on above: Performed By: #### 2 45547 #### [facility],[address] [place] [address] 72034 CHEST 1 VIEWon 08-18-2023 CHEST 1 VIEW [place] [address] Patient: ZENON QUINTEN E. Phone#: : 1970 Age: 53 Gender: F Pt. Type: ER Account: [id number] Location: [id number] Ordering: DEVIN COLLIER Exam Date: 08/18/2023/17:49 Family Phys: Charge Code: [id number] Physician: [place] Order #: [id number] Dose#: PROCEDURE: X-RAY CHEST 1 VIEW COMPARISON: [facility], XR, CHEST 1 VIEW, 08/15/2023, 12:42. INDICATIONS: Dyspnea. FINDINGS: LUNGS: Normal. No significant pulmonary parenchymal abnormalities. VASCULATURE: Pulmonary vasculature is mildly prominent. CARDIAC: Moderate worsening cardiomegaly. MEDIASTINUM: Normal. No visible mass or adenopathy. PLEURA: Normal. No effusion or pleural thickening. BONES: Normal. No fracture or visible bony lesion. OTHER: Negative. CONCLUSION: 1. Findings consistent with mild passive congestion. Dictated by: July Tavera MD on 08/18/2023 at 18:15 Approved by: July Tavera MD on 08/18/2023 at 18:16 Normal [facility] CMP with eGFRon 08-18-2023 AGE 53 years Normal [facility] Comment on above: Performed By: #### 2 18891 #### [facility],[address] [place] [address] 50448 Albumin [Mass/Vol] 2.9 g/dL Low 3.4 - 5.0 [facility] Comment on above: Performed By: #### 2 05829 #### [facility],[address] [place] [address] 04665 Albumin/Globulin [Mass ratio] 0.8 {ratio} Low 0.9 - 1.6 [facility] Comment on above: Performed By: #### 2 20650 #### [facility],[address] [place] [address] 70958 ALK PHOS 135 U/L High 46 - 116 [facility] Comment on above: Performed By: #### 2 68829 #### [facility],[address] [place] [address] 00560 ALT [Catalytic activity/Vol] 50 U/L Normal 14 - 59 [facility] Comment on above: Performed By: #### 2 94900 #### [facility],[address] [place] [address] 10302 Anion gap [Moles/Vol] 14 mmol/L Normal 10 - 20 [facility] Comment on above: Performed By: #### 2 76014 #### [facility],[address] [place] [address] AST [Catalytic activity/Vol] 56 U/L High 13 - 39 [facility] Comment on above: Performed By: #### 2 03423 #### [facility],[address] [place] [address] B/C RATIO 31 ratio High 0 - 30 [facility] Comment on above: Performed By: #### 2 69481 #### [facility],[address] [place] [address] 45421 Bilirubin [Mass/Vol] 0.2 mg/dL Normal 0.2 - 1.0 [facility] Comment on above: Performed By: #### 2 56454 #### [facility],[address] [place] [address] 40397 Calcium [Mass/Vol] 8.2 mg/dL Low 8.5 - 10.1 [facility] Comment on above: Performed By: #### 2 63693 #### [facility],[address] [place] [address] 39056 Chloride [Moles/Vol] 104 mmol/L Normal 98 - 107 [facility] Comment on above: Performed By: #### 2 76631 #### [facility],[address] [place] [address] 01744 CMP with eGFR Normal [facility] Comment on above: Result Comment: COMP REHENSIVE METABOLIC PANEL Performed By: #### 2 54880 #### [facility],[address] [place] [address] 72140 CO2 [Moles/Vol] 24.6 mmol/L Normal 21.0 - 32.0 [facility] Comment on above: Performed By: #### 2 67158 #### [facility],[address] [place] [address] 81860 Creatinine [Mass/Vol] 1.82 mg/dL High 0.55 - 1.02 [facility] Comment on above: Performed By: #### 2 60760 #### [facility],[address] [place] [address] 25925 eGFR 29 ML/MINUTE Low 60 - 999 [facility] Comment on above: Performed By: #### 2 63890 #### [facility],[address] [place] [address] 53617 eGFR(AA) 35 ML/MINUTE Low 60 - 999 [facility] Comment on above: Result Comment: ACCO RDING TO THE NATIONAL KIDNEY DISEASE EDUCATION PROGRAM(NKDE), A NORMAL eGFR IS A VALUE GREATER THAN OR EQUAL TO 60 ML/MIN/1.73 SQ METERS. CHRONIC KIDNEY DISEASE: <60mL/MIN/1.73 SQ METERS KIDNEY FAILURE: <15mL/MIN/1.73 SQ METERS THIS TEST SHOULD ONLY BE USED FOR PATIENTS 18 YEARS OF AGE AND OLDER. Performed By: #### 2 70430 #### [facility],[address] [place] [address] 55757 Globulin (S) [Mass/Vol] 3.8 g/dL Normal 1.5 - 3.8 [facility] Comment on above: Performed By: #### 2 68372 #### [facility],[address] [place] [address] 18137 Glucose [Mass/Vol] 107 mg/dL High 74 - 106 [facility] Comment on above: Performed By: #### 2 68316 #### [facility],[address] [place] [address] 14095 Potassium [Moles/Vol] 5.5 mmol/L High 3.5 - 5.1 [facility] Comment on above: Performed By: #### 2 51289 #### [facility],[address] [place] [address] 28326 Protein [Mass/Vol] 6.7 g/dL Normal 6.4 - 8.2 [facility] Comment on above: Performed By: #### 2 34778 #### [facility],[address] [place] [address] 03129 Sodium [Moles/Vol] 137 mmol/L Normal 136 - 145 [facility] Comment on above: Performed By: #### 2 77916 #### [facility],[address] [place] [address] 99986 Urea nitrogen [Mass/Vol] 57 mg/dL High 7 - 18 [facility] Comment on above: Performed By: #### 2 97312 #### [facility],[address] [place] [address] 95603 AGE 53 years Normal [facility] Comment on above: Performed By: #### 2 83161 #### [facility],[address] [place] [address] 40017 Albumin [Mass/Vol] 3.0 g/dL Low 3.4 - 5.0 [facility] Comment on above: Performed By: #### 2 76898 #### [facility],[address] [place] [address] 14172 Albumin/Globulin [Mass ratio] 0.8 {ratio} Low 0.9 - 1.6 [facility] Comment on above: Performed By: #### 2 01715 #### [facility],[address] [place] [address] 97000 ALK PHOS 128 U/L High 46 - 116 [facility] Comment on above: Performed By: #### 2 88980 #### [facility],[address] [place] [address] 43917 ALT [Catalytic activity/Vol] 36 U/L Normal 14 - 59 [facility] Comment on above: Performed By: #### 2 17161 #### [facility],[address] [place] [address] 56863 Anion gap [Moles/Vol] 13 mmol/L Normal 10 - 20 [facility] Comment on above: Performed By: #### 2 07131 #### [facility],[address] [place] [address] 01536 AST [Catalytic activity/Vol] 28 U/L Normal 13 - 39 [facility] Comment on above: Performed By: #### 2 16691 #### [facility],[address] [place] [address] 96339 B/C RATIO 31 ratio High 0 - 30 [facility] Comment on above: Performed By: #### 2 06757 #### [facility],[address] [place] [address] 36036 Bilirubin [Mass/Vol] 0.3 mg/dL Normal 0.2 - 1.0 [facility] Comment on above: Performed By: #### 2 03669 #### [facility],[address] [place] [address] 00065 Calcium [Mass/Vol] 8.5 mg/dL Normal 8.5 - 10.1 [facility] Comment on above: Performed By: #### 2 89471 #### [facility],[address] [place] [address] 48835 Chloride [Moles/Vol] 103 mmol/L Normal 98 - 107 [facility] Comment on above: Performed By: #### 2 23018 #### [facility],[address] [place] [address] 18420 CMP with eGFR Normal [facility] Comment on above: Result Comment: COMP REHENSIVE METABOLIC PANEL Performed By: #### 2 81188 #### [facility],[address] [place] [address] 55093 CO2 [Moles/Vol] 26.7 mmol/L Normal 21.0 - 32.0 [facility] Comment on above: Performed By: #### 2 78714 #### [facility],[address] [place] [address] 12459 Creatinine [Mass/Vol] 1.82 mg/dL High 0.55 - 1.02 [facility] Comment on above: Performed By: #### 2 23610 #### [facility],[address] [place] [address] 04387 eGFR 29 ML/MINUTE Low 60 - 999 [facility] Comment on above: Performed By: #### 2 95479 #### [facility],[address] [place] [address] eGFR(AA) 35 ML/MINUTE Low 60 - 999 [facility] Comment on above: Result Comment: ACCO RDING TO THE NATIONAL KIDNEY DISEASE EDUCATION PROGRAM(NKDE), A NORMAL eGFR IS A VALUE GREATER THAN OR EQUAL TO 60 ML/MIN/1.73 SQ METERS. CHRONIC KIDNEY DISEASE: <60mL/MIN/1.73 SQ METERS KIDNEY FAILURE: <15mL/MIN/1.73 SQ METERS THIS TEST SHOULD ONLY BE USED FOR PATIENTS 18 YEARS OF AGE AND OLDER. Performed By: #### 2 09210 #### [facility],[address] [place] [address] 70739 Globulin (S) [Mass/Vol] 3.9 g/dL High 1.5 - 3.8 [facility] Comment on above: Performed By: #### 2 32595 #### [facility],[address] [place] [address] 01083 Glucose [Mass/Vol] 80 mg/dL Normal 74 - 106 [facility] Comment on above: Performed By: #### 2 62320 #### [facility],[address] [place] [address] 74845 Potassium [Moles/Vol] 5.8 mmol/L High 3.5 - 5.1 [facility] Comment on above: Performed By: #### 2 21206 #### [facility],[address],[place] [address] Protein [Mass/Vol] 6.9 g/dL Normal 6.4 - 8.2 [facility] Comment on above: Performed By: #### 2 66233 #### [facility],[address] [place] [address] 92415 Sodium [Moles/Vol] 137 mmol/L Normal 136 - 145 [facility] Comment on above: Performed By: #### 2 35753 #### [facility],[address] [place] [address] 53443 Urea nitrogen [Mass/Vol] 56 mg/dL High 7 - 18 [facility] Comment on above: Performed By: #### 2 73464 #### [facility],[address] [place] [address] 93039 NT-proBNPon 08-18-2023 Natriuretic peptide B (Bld) [Mass/Vol] 223 pg/mL High 0 - 125 [facility] Comment on above: Performed By: #### 2 39443 #### [facility],[address] [place] [address] 17633 TROPONIN I, HIGH SENSITIVITY on 08-18-2023 HS TROPONIN 4.4 pg/mL Normal 0.0 - 51.4 [facility] Comment on above: Performed By: #### 2 82480 #### [facility],[address] [place] [address] 85470 CBC + DIFFon 08-15-2023 Baso # 0.10 x10EE3/UL Normal 0.00 - 0.10 [facility] Comment on above: Performed By: #### 2 17010 #### [facility],[address] [place] [address] 45148 Basophils/100 WBC (Bld) 1.1 % Normal 0.0 - 2.0 [facility] Comment on above: Performed By: #### 2 93261 #### [facility],[address] [place] [address] 95494 CBC + DIFF Normal [facility] Comment on above: Result Comment: CBC- COMPLETE BLOOD COUNT Performed By: #### 2 68448 #### [facility],[address] [place] [address] EO # 0.50 x10EE3/UL Normal 0.00 - 0.50 [facility] Comment on above: Performed By: #### 2 52646 #### [place] [address] Eosinophils/100 WBC (Bld) 8.0 % High 0.0 - 7.0 [facility] Comment on above: Performed By: #### 2 63026 #### [place] [address] Erythrocyte distribution width (RBC) [Ratio] 16.4 % High 12.0 - 15.6 [facility] Comment on above: Performed By: #### 2 08424 #### [place] [address] Hematocrit (Bld) [Volume fraction] 35.4 % Normal 34.0 - 46.0 [facility] Comment on above: Performed By: #### 2 52545 #### [place] [address] Hemoglobin (Bld) [Mass/Vol] 11.3 g/dL Low 12.0 - 16.0 [facility] Comment on above: Performed By: #### 2 88935 #### [facility],[address] [place], [place] [address] Lymph # 1.20 x10EE3/UL Normal 0.80 - 2.80 [facility] Comment on above: Performed By: #### 2 66075 #### [place] [id number] Lymphocytes/100 WBC (Bld) 19.0 % Low 20.0 - 45.0 [facility] Comment on above: Performed By: #### 2 95900 #### [facility],[address] [place] [address] MANUAL DIFF N/A Normal [facility] Comment on above: Performed By: #### 2 00393 #### [facility],[address] [place] [address] MCH (RBC) [Entitic mass] 30 pg Normal 27 - 33 [facility] Comment on above: Performed By: #### 2 57028 #### [facility],[address] [place] [address] MCHC 32 X10 3 Normal 32 - 36 [facility] Comment on above: Performed By: #### 2 38701 #### [place] [address] MCV (RBC) [Entitic vol] 94 fL Normal 80 - 99 [facility] Comment on above: Performed By: #### 2 24709 #### [facility],[address] [place] [address] Hutchinson # 0.50 x10EE3/UL Normal 0.20 - 1.00 [facility] Comment on above: Performed By: #### 2 30462 #### [facility],[address] [place] [address] MONOS % 8.0 % Normal 0.0 - 10.0 [facility] Comment on above: Performed By: #### 2 30903 #### [facility],[address] [place] [address] Morphology Martell (Bld) [Interp] N/A Normal [facility] Comment on above: Result Comment: {CD] Performed By: #### 2 18146 #### [place] [address] Neut # 3.90 x10EE3/UL Normal 1.50 - 7.10 [facility] Comment on above: Performed By: #### 2 86267 #### [place] [address] Neutrophils/100 WBC (Bld) 63.9 % Normal 46.0 - 76.0 [facility] Comment on above: Performed By: #### 2 96249 #### [facility],[address] [place] [address] 48503 PLATELET 196 x10EE3/UL Normal 150 - 450 [facility] Comment on above: Performed By: #### 2 03527 #### [facility],[address] [place] [address] 20311 Platelet mean volume (Bld) [Entitic vol] 10.2 fL Normal 6.6 - 10.5 [facility] Comment on above: Result Comment: AUTO MATED DIFFERENTIAL Performed By: #### 2 76520 #### [facility],[address] [place] [address] 61098 RBC 3.77 x 10EE6/UL Low 4.10 - 5.30 [facility] Comment on above: Performed By: #### 2 45177 #### [facility],[address] [place] [address] 58808 WBC 6.1 x 10EE3/UL Normal 4.5 - 10.8 [facility] Comment on above: Performed By: #### 2 85789 #### [facility],[address] [place] [address] 85680 CHEST 1 VIEWon 08-15-2023 CHEST 1 VIEW [place] [address] Patient: QUINTEN YARBROUGH Phone#: : 1970 Age: 53 Gender: F Pt. Type: ER Account: [id number] Location: [facility] Ordering: DEVIN COLLIER Exam Date: 08/15/2023/12:42 Family Phys: Charge Code: [id number] Physician: [place] Order #: [id number] Dose#: PROCEDURE: X-RAY CHEST 1 VIEW COMPARISON: [facility], XR, CHEST 1 VIEW, 07/16/2023, 13:49. INDICATIONS: Dyspnea. FINDINGS: LUNGS: Normal. No significant pulmonary parenchymal abnormalities. VASCULATURE: Normal. Unremarkable pulmonary vasculature. CARDIAC: Normal. No cardiac silhouette abnormality or cardiomegaly. MEDIASTINUM: Normal. No visible mass or adenopathy. PLEURA: Normal. No effusion or pleural thickening. BONES: Normal. No fracture or visible bony lesion. OTHER: Negative. CONCLUSION: No acute disease. Dictated by: July Tavera MD on 08/16/2023 at 1:42 Approved by: July Tavera MD on 08/16/2023 at 1:42 Normal [facility] CMP with eGFRon 08-15-2023 AGE 53 years Normal [facility] Comment on above: Performed By: #### 2 64106 #### [facility],[address] [place] [address] 51480 Albumin [Mass/Vol] 2.9 g/dL Low 3.4 - 5.0 [facility] Comment on above: Performed By: #### 2 08930 #### [facility],[address] [place] [address] 30926 Albumin/Globulin [Mass ratio] 0.8 {ratio} Low 0.9 - 1.6 [facility] Comment on above: Performed By: #### 2 84661 #### [facility],[address] [place] [address] 41869 ALK PHOS 137 U/L High 46 - 116 [facility] Comment on above: Performed By: #### 2 53634 #### [facility],[address] [place] [address] 89386 ALT [Catalytic activity/Vol] 44 U/L Normal 14 - 59 [facility] Comment on above: Performed By: #### 2 74978 #### [facility],[address] [place] [address] 26459 Anion gap [Moles/Vol] 13 mmol/L Normal 10 - 20 [facility] Comment on above: Performed By: #### 2 01116 #### [facility],[address] [place] [address] 35007 AST [Catalytic activity/Vol] 38 U/L Normal 13 - 39 [facility] Comment on above: Performed By: #### 2 10436 #### [facility],[address] [place] [address] 96531 B/C RATIO 31 ratio High 0 - 30 [facility] Comment on above: Performed By: #### 2 08196 #### [facility],[address] [place] [address] 11564 Bilirubin [Mass/Vol] 0.2 mg/dL Normal 0.2 - 1.0 [facility] Comment on above: Performed By: #### 2 53262 #### [facility],[address] [place] [address] 30452 Calcium [Mass/Vol] 8.6 mg/dL Normal 8.5 - 10.1 [facility] Comment on above: Performed By: #### 2 55997 #### [facility],[address] [place] [address] 16002 Chloride [Moles/Vol] 106 mmol/L Normal 98 - 107 [facility] Comment on above: Performed By: #### 2 19226 #### [facility],[address] [place] [address] 55222 CMP with eGFR Normal [facility] Comment on above: Result Comment: COMP REHENSIVE METABOLIC PANEL Performed By: #### 2 46924 #### [facility],[address] [place] [address] 30683 CO2 [Moles/Vol] 26.4 mmol/L Normal 21.0 - 32.0 [facility] Comment on above: Performed By: #### 2 70464 #### [facility],[address] [place] [address] 79394 Creatinine [Mass/Vol] 0.94 mg/dL Normal 0.55 - 1.02 [facility] Comment on above: Performed By: #### 2 30348 #### [facility],[address] [place] [address] 64496 GFR/1.73 sq M.predicted among non-blacks MDRD (S/P/Bld) [Vol rate/Area] mL/min/{1.73_m2} Normal 60 - 999 [facility] Comment on above: Performed By: #### 2 86565 #### [facility] [address] [place] [address] 55309 Result Comment: ACCO RDING TO THE NATIONAL KIDNEY DISEASE EDUCATION PROGRAM(NKDE), A NORMAL eGFR IS A VALUE GREATER THAN OR EQUAL TO 60 ML/MIN/1.73 SQ METERS. CHRONIC KIDNEY DISEASE: <60mL/MIN/1.73 SQ METERS KIDNEY FAILURE: <15mL/MIN/1.73 SQ METERS THIS TEST SHOULD ONLY BE USED FOR PATIENTS 18 YEARS OF AGE AND OLDER. Globulin (S) [Mass/Vol] 3.6 g/dL Normal 1.5 - 3.8 [facility] Comment on above: Performed By: #### 2 01899 #### [facility],[address] [place] [address] 04150 Glucose [Mass/Vol] 91 mg/dL Normal 74 - 106 [facility] Comment on above: Performed By: #### 2 65074 #### [facility],[address] [place] [address] 59145 Potassium [Moles/Vol] 4.6 mmol/L Normal 3.5 - 5.1 [facility] Comment on above: Performed By: #### 2 31874 #### [facility],[address] [place] [address] 17034 Protein [Mass/Vol] 6.5 g/dL Normal 6.4 - 8.2 [facility] Comment on above: Performed By: #### 2 01224 #### [facility],[address] [place] [address] 19375 Sodium [Moles/Vol] 141 mmol/L Normal 136 - 145 [facility] Comment on above: Performed By: #### 2 51262 #### [facility],[address] [place] [address] 45093 Urea nitrogen [Mass/Vol] 29 mg/dL High 7 - 18 [facility] Comment on above: Performed By: #### 2 32705 #### [facility],[address] [place] [address] 54333 NT-proBNPon 08-15-2023 Natriuretic peptide B (Bld) [Mass/Vol] 207 pg/mL High 0 - 125 [facility] Comment on above: Performed By: #### 2 69356 #### [facility],[address] [place] [address] 43075 TROPONIN I, HIGH SENSITIVITY on 08-15-2023 HS TROPONIN 4.7 pg/mL Normal 0.0 - 51.4 [facility] Comment on above: Performed By: #### 2 31568 #### [facility],[address] [place] [address] 23461 BMP with eGFRon 08-13-2023 AGE 53 years Normal [facility] Comment on above: Performed By: #### 2 65655 #### [facility],[address] [place] [address] 81471 Anion gap [Moles/Vol] 9 mmol/L Low 10 - 20 [facility] Comment on above: Performed By: #### 2 74421 #### [facility],[address] [place] [address] 55719 BMP with eGFR Normal [facility] Comment on above: Result Comment: BASI C METABOLIC PANEL Performed By: #### 2 88789 #### [facility],[address] [place] [address] 44262 Calcium [Mass/Vol] 8.3 mg/dL Low 8.5 - 10.1 [facility] Comment on above: Performed By: #### 2 89860 #### [facility],[address] [place] [address] 19686 Chloride [Moles/Vol] 109 mmol/L High 98 - 107 [facility] Comment on above: Performed By: #### 2 98929 #### [facility],[address] [place] [address] 44653 CO2 [Moles/Vol] 27.6 mmol/L Normal 21.0 - 32.0 [facility] Comment on above: Performed By: #### 2 49871 #### [facility],[address] [place] [address] 00318 Creatinine [Mass/Vol] 0.98 mg/dL Normal 0.55 - 1.02 [facility] Comment on above: Performed By: #### 2 17618 #### [facility],[address] [place] [address] 07932 eGFR 60 ML/MINUTE Normal 60 - 999 [facility] Comment on above: Performed By: #### 2 71136 #### [facility],[address] [place] [address] 62666 GFR/1.73 sq M.predicted among non-blacks MDRD (S/P/Bld) [Vol rate/Area] mL/min/{1.73_m2} Normal 60 - 999 [facility] Comment on above: Result Comment: ACCO RDING TO THE NATIONAL KIDNEY DISEASE EDUCATION PROGRAM(NKDE), A NORMAL eGFR IS A VALUE GREATER THAN OR EQUAL TO 60 ML/MIN/1.73 SQ METERS. CHRONIC KIDNEY DISEASE: <60mL/MIN/1.73 SQ METERS KIDNEY FAILURE: <15mL/MIN/1.73 SQ METERS THIS TEST SHOULD ONLY BE USED FOR PATIENTS 18 YEARS OF AGE AND OLDER. Performed By: #### 2 58431 #### [facility],[address] [place] [address] 57761 Glucose [Mass/Vol] 72 mg/dL Low 74 - 106 [facility] Comment on above: Performed By: #### 2 80950 #### [facility],[address] [place] [address] 52117 Potassium [Moles/Vol] 4.4 mmol/L Normal 3.5 - 5.1 [facility] Comment on above: Performed By: #### 2 19002 #### [facility],[address] [place] [address] 53870 Sodium [Moles/Vol] 141 mmol/L Normal 136 - 145 [facility] Comment on above: Performed By: #### 2 84525 #### [facility],[address] [place] [address] 12248 Urea nitrogen [Mass/Vol] 31 mg/dL High 7 - 18 [facility] Comment on above: Performed By: #### 2 05837 #### [facility],[address] [place] [address] 82187 BMP with eGFRon 08-12-2023 AGE 53 years Normal [facility] Comment on above: Performed By: #### 2 21738 #### [facility],[address] [place] [address] 86067 Anion gap [Moles/Vol] 11 mmol/L Normal 10 - 20 [facility] Comment on above: Performed By: #### 2 02049 #### [facility],[address] [place] [address] 59385 BMP with eGFR Normal [facility] Comment on above: Result Comment: BASI C METABOLIC PANEL Performed By: #### 2 88014 #### [facility],[address] [place] [address] 65870 Calcium [Mass/Vol] 8.4 mg/dL Low 8.5 - 10.1 [facility] Comment on above: Performed By: #### 2 48907 #### [facility],[address] [place] [address] 37612 Chloride [Moles/Vol] 112 mmol/L High 98 - 107 [facility] Comment on above: Performed By: #### 2 13490 #### [facility],[address] [place] [address] 38601 CO2 [Moles/Vol] 24.2 mmol/L Normal 21.0 - 32.0 [facility] Comment on above: Performed By: #### 2 78648 #### [facility],[address] [place] [address] 70096 Creatinine [Mass/Vol] 0.75 mg/dL Normal 0.55 - 1.02 [facility] Comment on above: Performed By: #### 2 79807 #### [facility],[address] [place] [address] 62032 GFR/1.73 sq M.predicted among non-blacks MDRD (S/P/Bld) [Vol rate/Area] mL/min/{1.73_m2} Normal 60 - 999 [facility] Comment on above: Performed By: #### 2 30306 #### [facility],[address] [place] [address] 95163 Result Comment: ACCO RDING TO THE NATIONAL KIDNEY DISEASE EDUCATION PROGRAM(NKDE), A NORMAL eGFR IS A VALUE GREATER THAN OR EQUAL TO 60 ML/MIN/1.73 SQ METERS. CHRONIC KIDNEY DISEASE: <60mL/MIN/1.73 SQ METERS KIDNEY FAILURE: <15mL/MIN/1.73 SQ METERS THIS TEST SHOULD ONLY BE USED FOR PATIENTS 18 YEARS OF AGE AND OLDER. Glucose [Mass/Vol] 73 mg/dL Low 74 - 106 [facility] Comment on above: Performed By: #### 2 87756 #### [facility],[address] [place] [address] 54497 Potassium [Moles/Vol] 4.2 mmol/L Normal 3.5 - 5.1 [facility] Comment on above: Performed By: #### 2 61766 #### [facility],[address] [place] [address] 47819 Sodium [Moles/Vol] 143 mmol/L Normal 136 - 145 [facility] Comment on above: Performed By: #### 2 91477 #### [facility],[address] [place] [address] 40496 Urea nitrogen [Mass/Vol] 31 mg/dL High 7 - 18 [facility] Comment on above: Performed By: #### 2 35710 #### [facility],[address] [place] [address] CBC + DIFFon 08-12-2023 Baso # 0.10 x10EE3/UL Normal 0.00 - 0.10 [facility] Comment on above: Performed By: #### 2 50460 #### [facility],[address] [place] [address] Basophils/100 WBC (Bld) 1.1 % Normal 0.0 - 2.0 [facility] Comment on above: Performed By: #### 2 08596 #### [facility],[address] [place] [address] CBC + DIFF Normal [facility] Comment on above: Result Comment: CBC- COMPLETE BLOOD COUNT Performed By: #### 2 11372 #### [facility],[address] [place] [address] EO # 0.40 x10EE3/UL Normal 0.00 - 0.50 [facility] Comment on above: Performed By: #### 2 01630 #### [facility],[address] [place] [address] Eosinophils/100 WBC (Bld) 6.5 % Normal 0.0 - 7.0 [facility] Comment on above: Performed By: #### 2 70298 #### [facility],[address] [place] [address] Erythrocyte distribution width (RBC) [Ratio] 16.0 % High 12.0 - 15.6 [facility] Comment on above: Performed By: #### 2 39432 #### [facility],[address] [place] [address] Hematocrit (Bld) [Volume fraction] 32.0 % Low 34.0 - 46.0 [facility] Comment on above: Performed By: #### 2 12852 #### [facility],[address] [place] [address] Hemoglobin (Bld) [Mass/Vol] 10.2 g/dL Low 12.0 - 16.0 [facility] Comment on above: Performed By: #### 2 13404 #### [facility],[address] [place] [address] Lymph # 1.70 x10EE3/UL Normal 0.80 - 2.80 [facility] Comment on above: Performed By: #### 2 01935 #### [facility],[address] [place] [address] Lymphocytes/100 WBC (Bld) 27.0 % Normal 20.0 - 45.0 [facility] Comment on above: Performed By: #### 2 77379 #### [facility],[address] [place] [address] MANUAL DIFF N/A Normal [facility] Comment on above: Performed By: #### 2 60784 #### [facility],[address] [place] [address] MCH (RBC) [Entitic mass] 30 pg Normal 27 - 33 [facility] Comment on above: Performed By: #### 2 62112 #### [facility],[address] [place] [address] MCHC 32 X10 3 Normal 32 - 36 [facility] Comment on above: Performed By: #### 2 07308 #### [facility],[address] [place] [address] MCV (RBC) [Entitic vol] 95 fL Normal 80 - 99 [facility] Comment on above: Performed By: #### 2 90495 #### [facility],[address] [place] [address] Hutchinson # 0.50 x10EE3/UL Normal 0.20 - 1.00 [facility] Comment on above: Performed By: #### 2 36454 #### [facility],[address],[place] [address] MONOS % 7.6 % Normal 0.0 - 10.0 [facility] Comment on above: Performed By: #### 2 62324 #### [facility],[address] [place] [address] 05424 Morphology Martell (Bld) [Interp] N/A Normal [facility] Comment on above: Result Comment: {CD] Performed By: #### 2 74524 #### [facility],[address] [place] [address] 65484 Neut # 3.60 x10EE3/UL Normal 1.50 - 7.10 [facility] Comment on above: Performed By: #### 2 49131 #### [facility],[address] [place], [place] [phone] Neutrophils/100 WBC (Bld) 57.8 % Normal 46.0 - 76.0 [facility] Comment on above: Performed By: #### 2 03866 #### [facility],[address] [place], [place] [phone] PLATELET 220 x10EE3/UL Normal 150 - 450 [facility] Comment on above: Performed By: #### 2 53417 #### [facility],[address] [place], [place] [phone] Platelet mean volume (Bld) [Entitic vol] 10.0 fL Normal 6.6 - 10.5 [facility] Comment on above: Result Comment: AUTO MATED DIFFERENTIAL Performed By: #### 2 75645 #### [facility],[address] [place] [address] 89460 RBC 3.39 x 10EE6/UL Low 4.10 - 5.30 [facility] Comment on above: Performed By: #### 2 42821 #### [facility],[address] [place] [address] 25034 WBC 6.2 x 10EE3/UL Normal 4.5 - 10.8 [facility] Comment on above: Performed By: #### 2 06103 #### [facility],[address] [place] [address] 55854 CBC + DIFFon 08-11-2023 Baso # 0.10 x10EE3/UL Normal 0.00 - 0.10 [facility] Comment on above: Performed By: #### 2 22872 #### [facility],[address] [place] [address] 51183 Basophils/100 WBC (Bld) 1.0 % Normal 0.0 - 2.0 [facility] Comment on above: Performed By: #### 2 09435 #### [facility],[address] [place] [address] CBC + DIFF Normal [facility] Comment on above: Result Comment: CBC- COMPLETE BLOOD COUNT Performed By: #### 2 81594 #### [address] [address] EO # 0.60 x10EE3/UL High 0.00 - 0.50 [facility] Comment on above: Performed By: #### 2 03316 #### [facility],[address] [place] [address] 24811 Eosinophils/100 WBC (Bld) 6.4 % Normal 0.0 - 7.0 [facility] Comment on above: Performed By: #### 2 65006 #### [facility],[address] [place], [place] [phone] Erythrocyte distribution width (RBC) [Ratio] 16.0 % High 12.0 - 15.6 [facility] Comment on above: Performed By: #### 2 01654 #### [facility],[address] [place], [place] [phone] Hematocrit (Bld) [Volume fraction] 36.7 % Normal 34.0 - 46.0 [facility] Comment on above: Performed By: #### 2 79084 #### [facility],[address] [place] [address] 13111 Hemoglobin (Bld) [Mass/Vol] 11.5 g/dL Low 12.0 - 16.0 [facility] Comment on above: Performed By: #### 2 26669 #### [facility],[address] [place] [address] Lymph # 1.40 x10EE3/UL Normal 0.80 - 2.80 [facility] Comment on above: Performed By: #### 2 85016 #### [facility],[address] [place] [address] Lymphocytes/100 WBC (Bld) 14.7 % Low 20.0 - 45.0 [facility] Comment on above: Performed By: #### 2 38063 #### [facility],[address] [place] [address] MANUAL DIFF N/A Normal [facility] Comment on above: Performed By: #### 2 40072 #### [facility],[address] [place] [address] MCH (RBC) [Entitic mass] 30 pg Normal 27 - 33 [facility] Comment on above: Performed By: #### 2 57302 #### [place] [address] MCHC 31 X10 3 Low 32 - 36 [facility] Comment on above: Performed By: #### 2 01193 #### [facility],[address] [place] [address] MCV (RBC) [Entitic vol] 95 fL Normal 80 - 99 [facility] Comment on above: Performed By: #### 2 13887 #### [place] [address] Hutchinson # 0.50 x10EE3/UL Normal 0.20 - 1.00 [facility] Comment on above: Performed By: #### 2 87802 #### [facility],[address] [place] [address] MONOS % 5.8 % Normal 0.0 - 10.0 [facility] Comment on above: Performed By: #### 2 17392 #### [facility],[address] [place] [address] 16903 Morphology Martell (Bld) [Interp] N/A Normal [facility] Comment on above: Result Comment: {CD] Performed By: #### 2 78298 #### [facility],[address] [place], [place] [phone] Neut # 6.90 x10EE3/UL Normal 1.50 - 7.10 [facility] Comment on above: Performed By: #### 2 62768 #### [place] [address] Neutrophils/100 WBC (Bld) 72.1 % Normal 46.0 - 76.0 [facility] Comment on above: Performed By: #### 2 03648 #### [place] [phone] PLATELET 236 x10EE3/UL Normal 150 - 450 [facility] Comment on above: Performed By: #### 2 43077 #### [place] [phone] Platelet mean volume (Bld) [Entitic vol] 9.5 fL Normal 6.6 - 10.5 [facility] Comment on above: Result Comment: AUTO MATED DIFFERENTIAL Performed By: #### 2 07891 #### [facility],[address] [place] [address] 22075 RBC 3.85 x 10EE6/UL Low 4.10 - 5.30 [facility] Comment on above: Performed By: #### 2 24050 #### [address] [address] WBC 9.5 x 10EE3/UL Normal 4.5 - 10.8 [facility] Comment on above: Performed By: #### 2 80148 #### [facility],[address] [place] [address] 82123 CMP with eGFRon 08-11-2023 AGE 53 years Normal [facility] Comment on above: Performed By: #### 2 00276 #### [facility],[address] [place] [address] 34967 Albumin [Mass/Vol] 3.1 g/dL Low 3.4 - 5.0 [facility] Comment on above: Performed By: #### 2 81337 #### [facility],[address] [place] [address] 47597 Albumin/Globulin [Mass ratio] 0.9 {ratio} Normal 0.9 - 1.6 [facility] Comment on above: Performed By: #### 2 48293 #### [facility],[address] [place] [address] 10380 ALK PHOS 115 U/L Normal 46 - 116 [facility] Comment on above: Performed By: #### 2 34685 #### [facility],[address] [place] [address] 81712 ALT [Catalytic activity/Vol] 24 U/L Normal 14 - 59 [facility] Comment on above: Performed By: #### 2 56960 #### [facility],[address] [place] [address] 01300 Anion gap [Moles/Vol] 14 mmol/L Normal 10 - 20 [facility] Comment on above: Performed By: #### 2 27889 #### [facility],[address] [place] [address] 79933 AST [Catalytic activity/Vol] 18 U/L Normal 13 - 39 [facility] Comment on above: Performed By: #### 2 38117 #### [facility],[address] [place] [address] 71423 B/C RATIO 44 ratio High 0 - 30 [facility] Comment on above: Performed By: #### 2 47851 #### [facility],[address] [place] [address] 63830 Bilirubin [Mass/Vol] 0.2 mg/dL Normal 0.2 - 1.0 [facility] Comment on above: Performed By: #### 2 87473 #### [facility],[address] [place] [address] 23710 Calcium [Mass/Vol] 8.5 mg/dL Normal 8.5 - 10.1 [facility] Comment on above: Performed By: #### 2 18359 #### [facility],[address] [place] [address] 45479 Chloride [Moles/Vol] 110 mmol/L High 98 - 107 [facility] Comment on above: Performed By: #### 2 66941 #### [facility],[address] [place], [place] [phone] CMP with eGFR Normal [facility] Comment on above: Result Comment: COMP REHENSIVE METABOLIC PANEL Performed By: #### 2 62970 #### [facility],[address] [place] [address] 67199 CO2 [Moles/Vol] 24.3 mmol/L Normal 21.0 - 32.0 [facility] Comment on above: Performed By: #### 2 18304 #### [facility],[address] [place] [address] 83196 Creatinine [Mass/Vol] 0.84 mg/dL Normal 0.55 - 1.02 [facility] Comment on above: Performed By: #### 2 27747 #### [facility],[address] [place] [address] 92395 GFR/1.73 sq M.predicted among non-blacks MDRD (S/P/Bld) [Vol rate/Area] mL/min/{1.73_m2} Normal 60 - 999 [facility] Comment on above: Performed By: #### 2 33871 #### [facility],[address] [place] [address] Result Comment: ACCO RDING TO THE NATIONAL KIDNEY DISEASE EDUCATION PROGRAM(NKDE), A NORMAL eGFR IS A VALUE GREATER THAN OR EQUAL TO 60 ML/MIN/1.73 SQ METERS. CHRONIC KIDNEY DISEASE: <60mL/MIN/1.73 SQ METERS KIDNEY FAILURE: <15mL/MIN/1.73 SQ METERS THIS TEST SHOULD ONLY BE USED FOR PATIENTS 18 YEARS OF AGE AND OLDER. Globulin (S) [Mass/Vol] 3.6 g/dL Normal 1.5 - 3.8 [facility] Comment on above: Performed By: #### 2 99896 #### [facility],[address] [place] [address] 22148 Glucose [Mass/Vol] 100 mg/dL Normal 74 - 106 [facility] Comment on above: Performed By: #### 2 78353 #### [facility],[address] [place] [address] 16728 Potassium [Moles/Vol] 4.4 mmol/L Normal 3.5 - 5.1 [facility] Comment on above: Performed By: #### 2 06589 #### [facility],[address] [place] [address] 22916 Protein [Mass/Vol] 6.7 g/dL Normal 6.4 - 8.2 [facility] Comment on above: Performed By: #### 2 74107 #### [facility],[address] [place] [address] 46422 Sodium [Moles/Vol] 144 mmol/L Normal 136 - 145 [facility] Comment on above: Performed By: #### 2 40831 #### [facility],[address] [place] [address] 68303 Urea nitrogen [Mass/Vol] 37 mg/dL High 7 - 18 [facility] Comment on above: Performed By: #### 2 07864 #### [facility],[address] [place] [address] BRAIN W/O CONTRASTon 11-0 CT BRAIN W/O CONTRAST [place] [address] Patient: QUINTEN YARBROUGH Phone#: : 1970 Age: 53 Gender: F Pt. Type: ER Account: [id number] Location: [facility] Ordering: MARGARETH GIANG Exam Date: 08/11/2023/18:20 Family Phys: Charge Code: 714316 Physician: [place] Order #: [id number] Dose#: [id number] PROCEDURE: CT BRAIN WITHOUT CONTRAST COMPARISON: [facility], CT, BRAIN W/O CON, 08/13/2021, 15:44. INDICATIONS: Trauma. TECHNIQUE: CT images were obtained without contrast material. All CT scans at this facility use dose modulation, iterative reconstruction, and/or weight based dosing when appropriate to reduce radiation dose to as low as reasonably achievable. IV CONTRAST: No IV contrast used,0ml TOTAL DOSE: 52.30 CTDIvol(mGy) FINDINGS: CEREBRUM: No edema, hemorrhage, mass, acute infarction, or inappropriate atrophy. CEREBELLUM: No edema, hemorrhage, mass, acute infarction, or inappropriate atrophy. BRAINSTEM: No edema, hemorrhage, mass, acute infarction, or inappropriate atrophy. CSF SPACES: Ventricles, cisterns, and sulci are appropriate for age. No hydrocephalus, subarachnoid hemorrhage, or mass. SKULL: No mass or other significant visible lesion. SINUSES: Limited views demonstrate no significant mucosal thickening or fluid. ORBITS: Limited views are unremarkable. OTHER: Negative. CONCLUSION: 1. There is no evidence of acute intracranial abnormality. Dictated by: July Tavera MD on 08/11/2023 at 18:37 Approved by: July Tavera MD on 08/11/2023 at 18:38 Normal [facility] TROPONIN I, HIGH SENSITIVITY on 08-11-2023 HS TROPONIN 4.7 pg/mL Normal 0.0 - 51.4 [facility] Comment on above: Performed By: #### 2 87669 #### [facility],[address] [place] [address] CBC + DIFFon 08-09-2023 Baso # 0.10 x10EE3/UL Normal 0.00 - 0.10 [facility] Comment on above: Performed By: #### 2 34904 #### [place] [address] Basophils/100 WBC (Bld) 1.3 % Normal 0.0 - 2.0 [facility] Comment on above: Performed By: #### 2 27937 #### [place] [address] CBC + DIFF Normal [facility] Comment on above: Result Comment: CBC- COMPLETE BLOOD COUNT Performed By: #### 2 34315 #### [place] [address] EO # 0.50 x10EE3/UL Normal 0.00 - 0.50 [facility] Comment on above: Performed By: #### 2 30465 #### [place] [address] Eosinophils/100 WBC (Bld) 6.3 % Normal 0.0 - 7.0 [facility] [facility] Comment on above: Performed By: #### 2 18623 #### [place] [address] Erythrocyte distribution width (RBC) [Ratio] 15.9 % High 12.0 - 15.6 [facility] Comment on above: Performed By: #### 2 92113 #### [place] [address] Hematocrit (Bld) [Volume fraction] 37.4 % Normal 34.0 - 46.0 [facility] Comment on above: Performed By: #### 2 10078 #### [place] [address] Hemoglobin (Bld) [Mass/Vol] 11.9 g/dL Low 12.0 - 16.0 [facility] Comment on above: Performed By: #### 2 56918 #### [address],[place] [address] Lymph # 1.60 x10EE3/UL Normal 0.80 - 2.80 [facility] Comment on above: Performed By: #### 2 87691 #### [facility],[address] [place] [address] Lymphocytes/100 WBC (Bld) 21.2 % Normal 20.0 - 45.0 [facility] Comment on above: Performed By: #### 2 17884 #### [facility],[address] [place] [address] MANUAL DIFF N/A Normal [facility] Comment on above: Performed By: #### 2 63601 #### [facility],[address] [place] [address] MCH (RBC) [Entitic mass] 30 pg Normal 27 - 33 [facility] Comment on above: Performed By: #### 2 96218 #### [facility],[address] [place] [address] MCHC 32 X10 3 Normal 32 - 36 [facility] Comment on above: Performed By: #### 2 15283 #### [facility],[address] [place] [address] MCV (RBC) [Entitic vol] 94 fL Normal 80 - 99 [facility] Comment on above: Performed By: #### 2 08056 #### [facility],[address] [place] [address] Hutchinson # 0.50 x10EE3/UL Normal 0.20 - 1.00 [facility] Comment on above: Performed By: #### 2 74309 #### [facility],[address] [place] [address] MONOS % 6.2 % Normal 0.0 - 10.0 [facility] Comment on above: Performed By: #### 2 30960 #### [facility],[address] [place] [address] Morphology Martell (Bld) [Interp] N/A Normal [facility] Comment on above: Performed By: #### 2 33450 #### [facility],[address] [place] [address] 54734 Neut # 5.00 x10EE3/UL Normal 1.50 - 7.10 [facility] Comment on above: Performed By: #### 2 44830 #### [facility],[address] [place] [address] 84365 Neutrophils/100 WBC (Bld) 65.0 % Normal 46.0 - 76.0 [facility] Comment on above: Performed By: #### 2 40362 #### [facility],[address] [place] [address] PLATELET 249 x10EE3/UL Normal 150 - 450 [facility] Comment on above: Performed By: #### 2 91972 #### [facility],[address] [place] [address] Platelet mean volume (Bld) [Entitic vol] 9.3 fL Normal 6.6 - 10.5 [facility] Comment on above: Result Comment: AUTO MATED DIFFERENTIAL Performed By: #### 2 87728 #### [facility],[address] [place] [address] 26904 RBC 3.97 x 10EE6/UL Low 4.10 - 5.30 [facility] Comment on above: Performed By: #### 2 99330 #### [facility],[address] [place] [address] 78757 WBC 7.8 x 10EE3/UL Normal 4.5 - 10.8 [facility] Comment on above: Performed By: #### 2 24003 #### [facility],[address] [place] [address] 24198 CMP with eGFRon 08-09-2023 AGE 53 years Normal [facility] Comment on above: Performed By: #### 2 12481 #### [facility],[address] [place] [address] 24319 Albumin [Mass/Vol] 3.5 g/dL Normal 3.4 - 5.0 [facility] Comment on above: Performed By: #### 2 56846 #### [facility],[address] [place] [address] 48320 Albumin/Globulin [Mass ratio] 1.0 {ratio} Normal 0.9 - 1.6 [facility] Comment on above: Performed By: #### 2 97449 #### [facility],[address] [place] [address] 28159 ALK PHOS 100 U/L Normal 46 - 116 [facility] Comment on above: Performed By: #### 2 58470 #### [facility],[address] [place] [address] 95949 ALT [Catalytic activity/Vol] 22 U/L Normal 14 - 59 [facility] Comment on above: Performed By: #### 2 22885 #### [facility],[address] [place] [address] 35557 Anion gap [Moles/Vol] 13 mmol/L Normal 10 - 20 [facility] Comment on above: Performed By: #### 2 19225 #### [facility],[address] [place] [address] 30619 AST [Catalytic activity/Vol] 20 U/L Normal 13 - 39 [facility] Comment on above: Performed By: #### 2 54179 #### [facility],[address] [place] [address] 25392 B/C RATIO 40 ratio High 0 - 30 [facility] Comment on above: Performed By: #### 2 91969 #### [facility],[address] [place] [address] 17869 Bilirubin [Mass/Vol] 0.4 mg/dL Normal 0.2 - 1.0 [facility] Comment on above: Performed By: #### 2 88864 #### [facility],[address] [place] [address] 33896 Calcium [Mass/Vol] 8.5 mg/dL Normal 8.5 - 10.1 [facility] Comment on above: Performed By: #### 2 62458 #### [facility],[address] [place] [address] 75442 Chloride [Moles/Vol] 108 mmol/L High 98 - 107 [facility] Comment on above: Performed By: #### 2 42541 #### [facility],[address] [place] [address] 13667 CMP with eGFR Normal [facility] Comment on above: Result Comment: COMP REHENSIVE METABOLIC PANEL Performed By: #### 2 45303 #### [facility],[address] [place], [place] [id number] CO2 [Moles/Vol] 25.7 mmol/L Normal 21.0 - 32.0 [facility] Comment on above: Performed By: #### 2 37288 #### [facility],[address] [place], [place] [id number] Creatinine [Mass/Vol] 0.80 mg/dL Normal 0.55 - 1.02 [facility] Comment on above: Performed By: #### 2 51190 #### [facility],[address] [place] [address] 51783 GFR/1.73 sq M.predicted among non-blacks MDRD (S/P/Bld) [Vol rate/Area] mL/min/{1.73_m2} Normal 60 - 999 [facility] Comment on above: Performed By: #### 2 28958 #### [facility],[address] [place] [address] Result Comment: ACCO RDING TO THE NATIONAL KIDNEY DISEASE EDUCATION PROGRAM(NKDE), A NORMAL eGFR IS A VALUE GREATER THAN OR EQUAL TO 60 ML/MIN/1.73 SQ METERS. CHRONIC KIDNEY DISEASE: <60mL/MIN/1.73 SQ METERS KIDNEY FAILURE: <15mL/MIN/1.73 SQ METERS THIS TEST SHOULD ONLY BE USED FOR PATIENTS 18 YEARS OF AGE AND OLDER. Globulin (S) [Mass/Vol] 3.4 g/dL Normal 1.5 - 3.8 [facility] Comment on above: Performed By: #### 2 38966 #### [facility],[address] [place] [address] 44279 Glucose [Mass/Vol] 96 mg/dL Normal 74 - 106 [facility] Comment on above: Performed By: #### 2 81487 #### [facility],[address] [place] [address] 10641 Potassium [Moles/Vol] 4.8 mmol/L Normal 3.5 - 5.1 [facility] Comment on above: Performed By: #### 2 40998 #### [facility],[address] [place] [address] 23080 Protein [Mass/Vol] 6.9 g/dL Normal 6.4 - 8.2 [facility] Comment on above: Performed By: #### 2 35113 #### [facility],[address] [place] [address] 78657 Sodium [Moles/Vol] 142 mmol/L Normal 136 - 145 [facility] Comment on above: Performed By: #### 2 41290 #### [facility],[address] [place] [address] 33619 Urea nitrogen [Mass/Vol] 32 mg/dL High 7 - 18 [facility] Comment on above: Performed By: #### 2 03153 #### [facility],[address] [place] [address] 69479 LACTATEon 08-09-2023 Lactate [Moles/Vol] 0.7 mmol/L Normal 0.4 - 2.0 [facility] Comment on above: Performed By: #### 2 31239 #### [facility],[address] [place] [address] 01251 EMERGENCY REPORTon 3 EMERGENCY REPORT [facility] EMERGENCY ROOM REPORT NAME ACCOUNT SEX AGE ADMIT DISCHARGE PT MED. RECORD# NUMBER DATE DATE TYPE ZENON [id number] F [id number] 07/24/23 07/24/23 3 QUINTEN Berkowitz [id number] ROOM: ER DATE OF : 1970 DICTATING PHYSICIAN: Anant Akbar CHIEF COMPLAINT: Leg pain with nausea. HISTORY OF PRESENT ILLNESS: The patient was seen in the ED three days ago and diagnosed with possible cellulitis. She was begun on Keflex. She has been taking that, but states that she is getting increasing pain, not having fever, but nausea. She states that she has had some diarrhea. No chest pain or shortness of breath. PAST MEDICAL HISTORY: Multiple chronic medical problems. The patient has been seen in the ED multiple times. All unchanged from recent visit several days ago. That visit was reviewed. FAMILY HISTORY: All unchanged from recent visit several days ago. That visit was reviewed. SOCIAL HISTORY: All unchanged from recent visit several days ago. That visit was reviewed. REVIEW OF SYSTEMS: As mentioned above. No chest pain. No shortness of breath. No urinary symptoms. No dizziness. PHYSICAL EXAMINATION: GENERAL: This is a morbidly obese 53-year-old female alert, appropriate, and does not appear toxic or in acute distress. SKIN: Her skin is pink, warm, and dry. HEENT: No acute abnormalities. NECK: Her neck is supple without adenopathy. LUNGS: Lungs are clear without crackles or wheezes. CARDIAC: Cardiac exam is regular rhythm without ectopy or murmurs. ABDOMEN: Abdomen is obese, but soft and nontender. EXTREMITIES: She moves all extremities appropriately without focal weaknesses. She has some slight pinkish redness to the right lower leg and some very minimal warmth. There is no marked redness or induration, some mild tenderness is present. No tenderness to the thighs bilaterally. Good capillary refill distal. No focal weaknesses. VITAL SIGNS: Temperature 97.6, pulse 59, respirations 18, and blood pressure 141//80. DIAGNOSTIC DATA: Laboratory studies obtained were generally unremarkable. White count was 9400, unremarkable differential, normal H&H. Electrolytes were normal. BUN and creatinine 28 and 0.9. CRP was 2.0. Anion gap is normal. Page 1 of 2 [facility] YARBROUGH Emergency Room Report QUINTEN YARBROUGH : 1970 EMERGENCY DEPARTMENT COURSE AND TREATMENT: O2 saturation was 98%. IV was placed. She was given some IV fluids. I gave her 12 mg of morphine IV, 4 mg of Zofran IV, and 2 grams of Rocephin IV. The patient has what appears to be a mild clinical cellulitis. She does not appear toxic. She does not appear in any respiratory distress or dehydrated. PLAN/DISPOSITION: I feel that adding doxycycline to her antibiotic regimen and returning to home is a reasonable treatment. I did give her a prescription for doxycycline 100 mg b.i.d. and gave her 10 Tramadol and ondansetron for nausea. She is to followup with her primary care physician, returning if symptoms worsen. Dictated By: Anant Akbar MD 07/24/23 17:58 JOB #: [id number] Transcribed By: am 07/26/23 15:49 Electronically signed by: ADDISON Akbar M.D. 08/02/23 07:09 Page 2 of 2 QUINT[facility] YARBROUGH Emergency Room Report Normal [facility] C-REACTIVE PROTEINon 023 CRP 2.00 mg/dl High 0.00 - 0.90 [facility] Comment on above: Performed By: #### 2 43920 #### [facility],[address] [place] [address] 58399 CBC + DIFFon 07-24-2023 Baso # 0.10 x10EE3/UL Normal 0.00 - 0.10 [facility] Comment on above: Performed By: #### 2 96318 #### [facility],[address] [place] [address] 85691 Basophils/100 WBC (Bld) 1.1 % Normal 0.0 - 2.0 [facility] Comment on above: Performed By: #### 2 94520 #### [facility],[address] [place] [address] 80299 CBC + DIFF Normal [facility] Comment on above: Result Comment: CBC- COMPLETE BLOOD COUNT Performed By: #### 2 98228 #### [facility],[address] [place] [address] 24364 EO # 0.20 x10EE3/UL Normal 0.00 - 0.50 [facility] Comment on above: Performed By: #### 2 40431 #### [facility],[address] [place] [address] Eosinophils/100 WBC (Bld) 2.3 % Normal 0.0 - 7.0 [facility] Comment on above: Performed By: #### 2 77025 #### [facility],[address] [place] [address] Erythrocyte distribution width (RBC) [Ratio] 15.8 % High 12.0 - 15.6 [facility] Comment on above: Performed By: #### 2 47163 #### [facility],[address] [place] [address] Hematocrit (Bld) [Volume fraction] 37.8 % Normal 34.0 - 46.0 [facility] Comment on above: Performed By: #### 2 30135 #### [place] [address] Hemoglobin (Bld) [Mass/Vol] 12.2 g/dL Normal 12.0 - 16.0 [facility] Comment on above: Performed By: #### 2 24705 #### [place] [address] Lymph # 1.40 x10EE3/UL Normal 0.80 - 2.80 [facility] Comment on above: Performed By: #### 2 65861 #### [facility],[address] [place], [place] [phone] Lymphocytes/100 WBC (Bld) 15.1 % Low 20.0 - 45.0 [facility] Comment on above: Performed By: #### 2 16910 #### [place] [id number] MANUAL DIFF N/A Normal [facility] Comment on above: Performed By: #### 2 33040 #### [place] [address] MCH (RBC) [Entitic mass] 31 pg Normal 27 - 33 [facility] Comment on above: Performed By: #### 2 89434 #### [facility],[address] [place] [address] MCHC 32 X10 3 Normal 32 - 36 [facility] Comment on above: Performed By: #### 2 64854 #### [facility],[address] [place] [address] MCV (RBC) [Entitic vol] 95 fL Normal 80 - 99 [facility] Comment on above: Performed By: #### 2 34752 #### [facility],[address] [place] [address] Hutchinson # 0.60 x10EE3/UL Normal 0.20 - 1.00 [facility] Comment on above: Performed By: #### 2 70349 #### [facility],[address] [place] [address] MONOS % 6.1 % Normal 0.0 - 10.0 [facility] Comment on above: Performed By: #### 2 39444 #### [facility],[address] [place] [address] Morphology Martell (Bld) [Interp] N/A Normal [facility] Comment on above: Result Comment: {CD] Performed By: #### 2 54578 #### [facility],[address] [place] [address] Neut # 7.10 x10EE3/UL Normal 1.50 - 7.10 [facility] Comment on above: Performed By: #### 2 65303 #### [place] [address] Neutrophils/100 WBC (Bld) 75.4 % Normal 46.0 - 76.0 [facility] Comment on above: Performed By: #### 2 51401 #### [place] [address] PLATELET 268 x10EE3/UL Normal 150 - 450 [facility] Comment on above: Performed By: #### 2 31246 #### [facility],[address] [place] [address] 61654 Platelet mean volume (Bld) [Entitic vol] 9.3 fL Normal 6.6 - 10.5 [facility] Comment on above: Result Comment: AUTO MATED DIFFERENTIAL Performed By: #### 2 44039 #### [facility],[address] [place] [address] 46597 RBC 4.00 x 10EE6/UL Low 4.10 - 5.30 [facility] Comment on above: Performed By: #### 2 18756 #### [facility],[address] [place] [address] 44038 WBC 9.4 x 10EE3/UL Normal 4.5 - 10.8 [facility] Comment on above: Performed By: #### 2 42856 #### [facility],[address] [place] [address] 77323 CMP with eGFRon 07-24-2023 AGE 53 years Normal [facility] Comment on above: Performed By: #### 2 60458 #### [facility],[address] [place] [address] 75508 Albumin [Mass/Vol] 3.3 g/dL Low 3.4 - 5.0 [facility] Comment on above: Performed By: #### 2 87952 #### [facility],[address] [place] [address] 25579 Albumin/Globulin [Mass ratio] 0.9 {ratio} Normal 0.9 - 1.6 [facility] Comment on above: Performed By: #### 2 82068 #### [facility],[address] [place] [address] 31200 ALK PHOS 115 U/L Normal 46 - 116 [facility] Comment on above: Performed By: #### 2 40988 #### [facility],[address] [place], [place] [phone] ALT [Catalytic activity/Vol] 18 U/L Normal 14 - 59 [facility] Comment on above: Performed By: #### 2 83642 #### [facility],[address] [place] [address] 56520 Anion gap [Moles/Vol] 9 mmol/L Low 10 - 20 [facility] Comment on above: Performed By: #### 2 05686 #### [facility],[address] [place] [address] AST [Catalytic activity/Vol] 16 U/L Normal 13 - 39 [facility] Comment on above: Performed By: #### 2 08910 #### [facility],[address] [place] [address] B/C RATIO 31 ratio High 0 - 30 [facility] Comment on above: Performed By: #### 2 34060 #### [facility],[address] [place], [place] [phone] Bilirubin [Mass/Vol] 0.2 mg/dL Normal 0.2 - 1.0 [facility] Comment on above: Performed By: #### 2 52727 #### [facility],[address] [place] [address] 96982 Calcium [Mass/Vol] 8.4 mg/dL Low 8.5 - 10.1 [facility] Comment on above: Performed By: #### 2 88712 #### [facility],[address] [place], [place] [phone] Chloride [Moles/Vol] 106 mmol/L Normal 98 - 107 [facility] Comment on above: Performed By: #### 2 90011 #### [facility],[address] [place], [place] [phone] CMP with eGFR Normal [facility] Comment on above: Result Comment: COMP REHENSIVE METABOLIC PANEL Performed By: #### 2 90180 #### [facility],[address] [place] [address] 85832 CO2 [Moles/Vol] 29.4 mmol/L Normal 21.0 - 32.0 [facility] Comment on above: Performed By: #### 2 72722 #### [facility],[address] [place] [address] Creatinine [Mass/Vol] 0.90 mg/dL Normal 0.55 - 1.02 [facility] Comment on above: Performed By: #### 2 55497 #### [facility],[address] [place], [place] [address] GFR/1.73 sq M.predicted among non-blacks MDRD (S/P/Bld) [Vol rate/Area] mL/min/{1.73_m2} Normal 60 - 999 [facility] Comment on above: Performed By: #### 2 34424 #### [facility],[address] [place] [address] Result Comment: ACCO RDING TO THE NATIONAL KIDNEY DISEASE EDUCATION PROGRAM(NKDE), A NORMAL eGFR IS A VALUE GREATER THAN OR EQUAL TO 60 ML/MIN/1.73 SQ METERS. CHRONIC KIDNEY DISEASE: <60mL/MIN/1.73 SQ METERS KIDNEY FAILURE: <15mL/MIN/1.73 SQ METERS THIS TEST SHOULD ONLY BE USED FOR PATIENTS 18 YEARS OF AGE AND OLDER. Globulin (S) [Mass/Vol] 3.7 g/dL Normal 1.5 - 3.8 [facility] Comment on above: Performed By: #### 2 37874 #### [facility],[address] [place], [place] [phone] Glucose [Mass/Vol] 90 mg/dL Normal 74 - 106 [facility] Comment on above: Performed By: #### 2 55456 #### [facility],[address] [place], [place] [phone] Potassium [Moles/Vol] 3.8 mmol/L Normal 3.5 - 5.1 [facility] Comment on above: Performed By: #### 2 36021 #### [facility],[address] [place] [address] 18093 Protein [Mass/Vol] 7.0 g/dL Normal 6.4 - 8.2 [facility] Comment on above: Performed By: #### 2 11100 #### [facility],[address] [place] [address] 80326 Sodium [Moles/Vol] 141 mmol/L Normal 136 - 145 [facility] Comment on above: Performed By: #### 2 41608 #### [facility],[address] [place] [address] 59353 Urea nitrogen [Mass/Vol] 28 mg/dL High 7 - 18 [facility] Comment on above: Performed By: #### 2 87441 #### [facility],[address] [place] [address] 42322 CBC + DIFFon 07-16-2023 Baso # 0.10 x10EE3/UL Normal 0.00 - 0.10 [facility] Comment on above: Performed By: #### 2 82849 #### [facility],[address] [place] [address] 20824 Basophils/100 WBC (Bld) 0.4 % Normal 0.0 - 2.0 [facility] Comment on above: Performed By: #### 2 68270 #### [facility],[address] [place] [address] 22391 CBC + DIFF Normal [facility] Comment on above: Result Comment: CBC- COMPLETE BLOOD COUNT Performed By: #### 2 16180 #### [facility],[address] [place] [address] 56831 EO # 0.10 x10EE3/UL Normal 0.00 - 0.50 [facility] Comment on above: Performed By: #### 2 94162 #### [facility],[address] [place] [address] 43559 Eosinophils/100 WBC (Bld) 0.8 % Normal 0.0 - 7.0 [facility] Comment on above: Performed By: #### 2 37887 #### [facility],[address] [place] [address] Erythrocyte distribution width (RBC) [Ratio] 15.2 % Normal 12.0 - 15.6 [facility] Comment on above: Performed By: #### 2 83732 #### [facility],[address] [place] [address] Hematocrit (Bld) [Volume fraction] 38.9 % Normal 34.0 - 46.0 [facility] Comment on above: Performed By: #### 2 24100 #### [facility],[address] [place] [address] Hemoglobin (Bld) [Mass/Vol] 12.2 g/dL Normal 12.0 - 16.0 [facility] Comment on above: Performed By: #### 2 78965 #### [facility],[address] [place] [address] Lymph # 0.70 x10EE3/UL Low 0.80 - 2.80 [facility] Comment on above: Performed By: #### 2 22541 #### [facility],[address] [place] [address] Lymphocytes/100 WBC (Bld) 5.1 % Low 20.0 - 45.0 [facility] Comment on above: Performed By: #### 2 03767 #### [facility],[address] [place], [place] [phone] MANUAL DIFF N/A Normal [facility] Comment on above: Performed By: #### 2 23848 #### [facility],[address] [place], [place] [phone] MCH (RBC) [Entitic mass] 30 pg Normal 27 - 33 [facility] Comment on above: Performed By: #### 2 87008 #### [place] [address] MCHC 32 X10 3 Normal 32 - 36 [facility] Comment on above: Performed By: #### 2 97657 #### [facility],[address] [place] [address] MCV (RBC) [Entitic vol] 95 fL Normal 80 - 99 [facility] Comment on above: Performed By: #### 2 47797 #### [facility],[address] [place] [address] Hutchinson # 0.70 x10EE3/UL Normal 0.20 - 1.00 [facility] Comment on above: Performed By: #### 2 75708 #### [facility],[address] [place] [address] MONOS % 5.1 % Normal 0.0 - 10.0 [facility] Comment on above: Performed By: #### 2 67254 #### [facility],[address] [place] [address] Morphology Martell (Bld) [Interp] N/A Normal [facility] Comment on above: Result Comment: {CD] Performed By: #### 2 72803 #### [facility],[address] [place] [address] Neut # 12.30 x10EE3/UL High 1.50 - 7.10 [facility] Comment on above: Performed By: #### 2 13135 #### [facility],[address] [place] [address] Neutrophils/100 WBC (Bld) 88.6 % High 46.0 - 76.0 [facility] Comment on above: Performed By: #### 2 44360 #### [facility],[address] [place], [place] [phone] PLATELET 237 x10EE3/UL Normal 150 - 450 [facility] Comment on above: Performed By: #### 2 59281 #### [facility],[address] [place] [address] Platelet mean volume (Bld) [Entitic vol] 9.8 fL Normal 6.6 - 10.5 [facility] Comment on above: Result Comment: AUTO MATED DIFFERENTIAL Performed By: #### 2 75317 #### [facility],[address] [place] [address] 07066 RBC 4.09 x 10EE6/UL Low 4.10 - 5.30 [facility] Comment on above: Performed By: #### 2 35095 #### [facility],[address] [place] [address] 53917 WBC 13.9 x 10EE3/UL High 4.5 - 10.8 [facility] Comment on above: Performed By: #### 2 63581 #### [facility],[address] [place] [address] 38967 CHEST 1 VIEWon 07-16-2023 CHEST 1 VIEW [place] [address] Patient: QUINTEN YARBROUGH Phone#: : 1970 Age: 53 Gender: F Pt. Type: ER Account: [id number] Location: [facility] Ordering: MARGARETH GIANG Exam Date: 07/16/2023/13:49 Family Phys: Charge Code: [id number] Physician: [place] Order #: [id number] Dose#: PROCEDURE: X-RAY CHEST 1 VIEW COMPARISON: [facility], XR, CHEST 2 VIEWS, 04/09/2023, 13:49. [facility], XR, CHEST 1 VIEW, 06/15/2023, 14:59. INDICATIONS: Dyspnea. FINDINGS: Study limited by patient by patient body habitus LUNGS: Normal. No significant pulmonary parenchymal abnormalities. VASCULATURE: Normal. Unremarkable pulmonary vasculature. CARDIAC: Normal. No cardiac silhouette abnormality or cardiomegaly. MEDIASTINUM: Normal. No visible mass or adenopathy. PLEURA: Normal. No effusion or pleural thickening. BONES: Normal. No fracture or visible bony lesion. OTHER: Monitoring leads project across the thorax CONCLUSION: No acute disease. No significant change has occurred. Dictated by: Yasir Thrasher MD on 07/16/2023 at 14:15 Approved by: Yasir Thrasher MD on 07/16/2023 at 14:16 Normal [facility] CMP with eGFRon 07-16-2023 AGE 53 years Normal [facility] Comment on above: Performed By: #### 2 35592 #### [facility],[address] [place] [address] 34344 Albumin [Mass/Vol] 3.4 g/dL Normal 3.4 - 5.0 [facility] Comment on above: Performed By: #### 2 57252 #### [facility],[address] [place] [address] 46189 Albumin/Globulin [Mass ratio] 1.0 {ratio} Normal 0.9 - 1.6 [facility] Comment on above: Performed By: #### 2 30816 #### [facility],[address] [place] [address] 31876 ALK PHOS 119 U/L High 46 - 116 [facility] Comment on above: Performed By: #### 2 26807 #### [facility],[address] [place] [address] 76997 ALT [Catalytic activity/Vol] 20 U/L Normal 14 - 59 [facility] Comment on above: Performed By: #### 2 72011 #### [facility],[address] [place] [address] 13114 Anion gap [Moles/Vol] 13 mmol/L Normal 10 - 20 [facility] Comment on above: Performed By: #### 2 01693 #### [facility],[address] [place] [address] 21285 AST [Catalytic activity/Vol] 13 U/L Normal 13 - 39 [facility] Comment on above: Performed By: #### 2 00529 #### [facility],[address] [place] [address] 73029 B/C RATIO 14 ratio Normal 0 - 30 [facility] Comment on above: Performed By: #### 2 69563 #### [facility],[address] [place], [place] [phone] Bilirubin [Mass/Vol] 0.3 mg/dL Normal 0.2 - 1.0 [facility] Comment on above: Performed By: #### 2 25981 #### [facility],[address] [place] [address] Calcium [Mass/Vol] 8.7 mg/dL Normal 8.5 - 10.1 [facility] Comment on above: Performed By: #### 2 00532 #### [facility],[address] [place] [address] Chloride [Moles/Vol] 105 mmol/L Normal 98 - 107 [facility] Comment on above: Performed By: #### 2 85067 #### [facility],[address] [place] [address] CMP with eGFR Normal [facility] Comment on above: Result Comment: COMP REHENSIVE METABOLIC PANEL Performed By: #### 2 41417 #### [facility],[address] [place], [place] [phone] CO2 [Moles/Vol] 27.4 mmol/L Normal 21.0 - 32.0 [facility] Comment on above: Performed By: #### 2 73380 #### [facility],[address] [place], [place] [phone] Creatinine [Mass/Vol] 0.87 mg/dL Normal 0.55 - 1.02 [facility] Comment on above: Performed By: #### 2 91317 #### [facility],[address] [place], [place] [phone] GFR/1.73 sq M.predicted among non-blacks MDRD (S/P/Bld) [Vol rate/Area] mL/min/{1.73_m2} Normal 60 - 999 [facility] Comment on above: Performed By: #### 2 42187 #### [facility],[address] [place] [address] 68763 Result Comment: ACCO RDING TO THE NATIONAL KIDNEY DISEASE EDUCATION PROGRAM(NKDE), A NORMAL eGFR IS A VALUE GREATER THAN OR EQUAL TO 60 ML/MIN/1.73 SQ METERS. CHRONIC KIDNEY DISEASE: <60mL/MIN/1.73 SQ METERS KIDNEY FAILURE: <15mL/MIN/1.73 SQ METERS THIS TEST SHOULD ONLY BE USED FOR PATIENTS 18 YEARS OF AGE AND OLDER. Globulin (S) [Mass/Vol] 3.5 g/dL Normal 1.5 - 3.8 [facility] Comment on above: Performed By: #### 2 07277 #### [facility],[address] [place] [address] 16110 Glucose [Mass/Vol] 104 mg/dL Normal 74 - 106 [facility] Comment on above: Performed By: #### 2 01836 #### [facility],[address] [place] [address] 89232 Potassium [Moles/Vol] 3.9 mmol/L Normal 3.5 - 5.1 [facility] Comment on above: Performed By: #### 2 40947 #### [facility],[address] [place] [address] 27466 Protein [Mass/Vol] 6.9 g/dL Normal 6.4 - 8.2 [facility] Comment on above: Performed By: #### 2 31501 #### [facility],[address] [place] [address] 51277 Sodium [Moles/Vol] 141 mmol/L Normal 136 - 145 [facility] Comment on above: Performed By: #### 2 46890 #### [facility],[address] [place] [address] 68900 Urea nitrogen [Mass/Vol] 12 mg/dL Normal 7 - 18 [facility] Comment on above: Performed By: #### 2 23389 #### [facility],[address] [place] [address] ABD W/WO CONTRASTon 07-16 CT ABD W/WO CONTRAST [address] [address] Patient: QUINTEN YARBROUGH Phone#: : 1970 Age: 53 Gender: F Pt. Type: ER Account: [id number] Location: 052 Ordering: MARGARETH GIANG Exam Date: 07/16/2023/16:57 Family Phys: Charge Code: [id number] Physician: [place] Order #: [id number] Dose#: 112.10 mGy PROCEDURE: CT ABDOMEN WITH AND WITHOUT CONRAST COMPARISON: [facility], CT, CHEST PE W CON, 06/29/2021, 0:22. [facility], CT, ABDOMEN/PELVIS W CON, 07/09/2023, 0:37. INDICATIONS: Mass. TECHNIQUE: After obtaining the patient's consent, CT images were created without and with non-ionic intravenous contrast material . All CT scans at this facility use dose modulation, iterative reconstruction, and/or weight based dosing when appropriate to reduce radiation dose to as low as reasonably achievable. IV CONTRAST: Omnipaque 350,80ml TOTAL DOSE: 112.10 CTDIvol(mGy) FINDINGS: Study limited by patient body habitus. LIVER: Normal. No enlargement, atrophy, abnormal density, or significant focal lesion. BILIARY: Gallbladder is absent. PANCREAS: There is pancreatic atrophy SPLEEN: Normal. No enlargement or focal lesion. KIDNEYS: Kidneys enhance and excrete contrast symmetrically. No hydronephrosis. In the left lower pole there is a low-attenuation lesion measuring 3.0 x 3.1 x 2.5 cm, compared to CT from June 2021 which time it measured 2.7 x 3.0 x 2.2 cm. No significant change in attenuation on noncontrast or postcontrast phases, suggesting a proteinaceous or hemorrhagic cyst though evaluation is limited by patient body habitus. There are 2 cysts in the left midpole measuring 1.4 cm and 1.4 cm. ADRENALS: Normal. No mass or enlargement. AORTA/VASCULAR: No aortic aneurysm. RETROPERITONEUM: Normal. No mass or adenopathy. BOWEL/MESENTERY: There is evidence of prior gastric surgery. No bowel obstruction or dilatation. ABDOMINAL WALL: Normal. No mass or hernia. BONES: Degenerative changes of the spine. LUNG BASES: Normal. No visible pulmonary or pleural disease. Continued Report - Page 2 of 2 Patient: QUINTEN YARBROUGH Phone#: : 1970 Age: 53 Gender: F Pt. Type: ER Account: [id number] Location: [facility] Ordering: MARGARETH GIANG Exam Date: 07/16/2023/16:57 Family Phys: Charge Code: [id number] Physician: [place] Order #: [id number] Dose#: 112.10 mGy OTHER: Negative. CONCLUSION: 1. Probable proteinaceous or hemorrhagic cyst at the lower pole of the left kidney. 2. Left renal cysts. Dictated by: Yasir Thrasher MD on 07/16/2023 at 17:22 Approved by: Yasir Thrasher MD on 07/16/2023 at 17:35 Normal [facility] NT-proBNPon 07-16-2023 Natriuretic peptide B (Bld) [Mass/Vol] 409 pg/mL High 0 - 125 [facility] Comment on above: Performed By: #### 2 60894 #### [facility],[address] [place] [address] 84499 TROPONIN I, HIGH SENSITIVITY on 07-16-2023 HS TROPONIN 5.1 pg/mL Normal 0.0 - 51.4 [facility] Comment on above: Performed By: #### 2 53269 #### [facility],[address] [place] [address] 41956 URINALYSISon 07-16-2023 Bilirubin Ql (U) Negative Normal NORMAL: NEGATIVE [facility] Comment on above: Performed By: #### 2 98966 #### [facility],[address] [place] [address] 67064 Clarity (U) clear Normal NORMAL: CLEAR [facility] Comment on above: Performed By: #### 2 67148 #### [facility],[address] [place] [address] 34263 Color (U) p.yel Normal NORMAL: YELLOW [facility] Comment on above: Performed By: #### 2 57763 #### [facility],[address] [place] [address] 60686 Glucose Ql (U) NORM Normal NORMAL: NORMAL [facility] Comment on above: Performed By: #### 2 05618 #### [facility],[address] [place] [address] 28947 Hemoglobin Ql (U) Negative Normal NORMAL: NEGATIVE [facility] Comment on above: Performed By: #### 2 62216 #### [facility],[address] [place] [address] 47797 Ketone Negative Normal NORMAL: NEGATIVE [facility] Comment on above: Performed By: #### 2 77083 #### [facility],[address] [place] [address] 56672 Leukocytes Negative Normal NORMAL: NEGATIVE [facility] Comment on above: Performed By: #### 2 88855 #### [facility],[address] [place] [address] 52251 Nitrite Ql (U) Negative Normal NORMAL: NEGATIVE [facility] Comment on above: Performed By: #### 2 10579 #### [facility],[address] [place] [address] 71827 pH (U) 8 [pH] Normal NORMAL: 5.0-8.0 [facility] Comment on above: Performed By: #### 2 93333 #### [facility],[address] [place] [address] 20262 Protein Ql (U) Negative Normal NORMAL: NEGATIVE [facility] Comment on above: Performed By: #### 2 83661 #### [facility],[address] [place] [address] 49569 Sp [place] 1.015 Normal NORMAL: 1.010-1.030 [facility] Comment on above: Performed By: #### 2 27281 #### [facility],[address] [place] [address] Specimen Type Void Normal [facility] Comment on above: Performed By: #### 2 85268 #### [facility],[address] [place] [address] Urinalysis dipstick W Reflex Microscopic panel (U) NOT INDICATED Normal [facility] Comment on above: Performed By: #### 2 91337 #### [facility],[address] [place] [address] Urobilinog NORM Normal NORMAL: NORMAL [facility] Comment on above: Performed By: #### 2 25297 #### [facility],[address] [place] [address] CT ABDOMEN/PELVIS Won 2022 CT ABDOMEN/PELVIS [place] [address] Patient: QUINTEN YARBROUGH Phone#: : 1970 Age: 53 Gender: F Pt. Type: ER Account: [id number] Location: [facility] Ordering: MARGARETH GIANG Exam Date: 07/09/2023/0:37 Family Phys: Charge Code: [id number] Physician: [place] Order #: [id number] Dose#: 63.60 PROCEDURE: CT ABDOMEN/PELVIS WITH CONTRAST COMPARISON: [facility], CT, ABDOMEN/PELVIS W/O CON, 03/08/2018, 16:51. INDICATIONS: Abdominal pain. TECHNIQUE: After obtaining the patient's consent, CT images were created with non-ionic intravenous contrast material. All CT scans at this facility use dose modulation, iterative reconstruction, and/or weight based dosing when appropriate to reduce radiation dose to as low as reasonably achievable. IV CONTRAST: Omnipaque 350,80ml TOTAL DOSE: 63.60 CTDIvol(mGy) FINDINGS: There is degradation of the images related to patient body habitus. LIVER: Normal. No enlargement, atrophy, abnormal density, or significant focal lesion. BILIARY: The gallbladder is absent. PANCREAS: Normal. No lesion, fluid collection, ductal dilatation, or atrophy. SPLEEN: Normal. No enlargement or focal lesion. KIDNEYS: The right kidney is unremarkable. There are 3 non-cystic, hypoattenuating foci in the left kidney measuring 2.7, 1.8 and 2.6 centimeters respectively. These foci are not demonstrated on prior examination. Further evaluation by CT or MRI without and with contrast is recommended. ADRENALS: Normal. No mass or enlargement. AORTA/VASCULAR: Normal. No aneurysm or dissection. RETROPERITONEUM: Normal. No mass or adenopathy. BOWEL/MESENTERY: Normal. No visible mass, obstruction, or bowel wall thickening. ABDOMINAL WALL: Normal. No mass or hernia. URINARY BLADDER: Normal. No visible focal wall thickening, lesion, or calculus. PELVIC NODES: Normal. No adenopathy. PELVIC ORGANS: The uterus is absent. BONES: Degenerative changes of the spine present. LUNG BASES: Normal. No visible pulmonary or pleural disease. Continued Report - Page 2 of 2 Patient: QUINTEN YARBROUGH Phone#: : 1970 Age: 53 Gender: F Pt. Type: ER Account: [id number] Location: [facility] Ordering: MARGARETH GIANG Exam Date: 07/09/2023/0:37 Family Phys: Charge Code: [id number] Physician: [place] Order #: [id number] Dose#: 63.60 OTHER: Negative. CONCLUSION: 1. There is degradation of the images related to patient body habitus. There are 3 hypoattenuating foci in the left kidney with attenuation greater than the cysts. Further evaluation by CT or MRI without with contrast is recommended. 2. No other acute abdominal or pelvic abnormality is identified. Dictated by: July Tavera MD on 07/09/2023 at 9:11 Approved by: July Tavera MD on 07/09/2023 at 9:25 Normal [facility] CBC + DIFFon 07-08-2023 Baso # 0.10 x10EE3/UL Normal 0.00 - 0.10 [facility] Comment on above: Performed By: #### 2 73552 #### [facility],[address] [place], [place] [phone] Basophils/100 WBC (Bld) 1.0 % Normal 0.0 - 2.0 [facility] Comment on above: Performed By: #### 2 41488 #### [facility],[address] [place] [address] CBC + DIFF Normal [facility] Comment on above: Result Comment: CBC- COMPLETE BLOOD COUNT Performed By: #### 2 17778 #### [facility],[address] [place] [address] EO # 0.30 x10EE3/UL Normal 0.00 - 0.50 [facility] Comment on above: Performed By: #### 2 85186 #### [place] [address] Eosinophils/100 WBC (Bld) 3.6 % Normal 0.0 - 7.0 [facility] Comment on above: Performed By: #### 2 11466 #### [facility],[address] [place] [address] Erythrocyte distribution width (RBC) [Ratio] 16.1 % High 12.0 - 15.6 [facility] Comment on above: Performed By: #### 2 94990 #### [facility],[address] [place] [address] Hematocrit (Bld) [Volume fraction] 39.9 % Normal 34.0 - 46.0 [facility] Comment on above: Performed By: #### 2 01183 #### [facility],[address] [place] [address] Hemoglobin (Bld) [Mass/Vol] 12.5 g/dL Normal 12.0 - 16.0 [facility] Comment on above: Performed By: #### 2 88741 #### [facility],[address] [place] [address] Lymph # 1.40 x10EE3/UL Normal 0.80 - 2.80 [facility] Comment on above: Performed By: #### 2 19250 #### [facility],[address] [place] [address] Lymphocytes/100 WBC (Bld) 18.6 % Low 20.0 - 45.0 [facility] Comment on above: Performed By: #### 2 43180 #### [facility],[address] [place] [address] MANUAL DIFF N/A Normal [facility] Comment on above: Performed By: #### 2 51506 #### [facility],[address] [place] [address] MCH (RBC) [Entitic mass] 30 pg Normal 27 - 33 [facility] Comment on above: Performed By: #### 2 98451 #### [facility],[address] [place] [address] MCHC 31 X10 3 Low 32 - 36 [facility] Comment on above: Performed By: #### 2 53911 #### [facility],[address] [place] [address] MCV (RBC) [Entitic vol] 97 fL Normal 80 - 99 [facility] Comment on above: Performed By: #### 2 32513 #### [facility],[address] [place] [address] [place] # 0.50 x10EE3/UL Normal 0.20 - 1.00 [facility] Comment on above: Performed By: #### 2 22794 #### [facility],[address] [place] [address] MONOS % 6.8 % Normal 0.0 - 10.0 [facility] Comment on above: Performed By: #### 2 24596 #### [facility],[address] [place] [address] Morphology Martell (Bld) [Interp] N/A Normal [facility] Comment on above: Performed By: #### 2 16268 #### [facility],[address] [place] [address] 87983 Neut # 5.10 x10EE3/UL Normal 1.50 - 7.10 [facility] Comment on above: Performed By: #### 2 89536 #### [facility],[address] [place], [place] [phone] Neutrophils/100 WBC (Bld) 70.0 % Normal 46.0 - 76.0 [facility] Comment on above: Performed By: #### 2 80201 #### [facility],[address] [place] [address] 71068 PLATELET 268 x10EE3/UL Normal 150 - 450 [facility] Comment on above: Performed By: #### 2 56233 #### [facility],[address] [place] [address] Platelet mean volume (Bld) [Entitic vol] 10.0 fL Normal 6.6 - 10.5 [facility] Comment on above: Result Comment: AUTO MATED DIFFERENTIAL Performed By: #### 2 82828 #### [facility],[address] [place] [address] 94149 RBC 4.14 x 10EE6/UL Normal 4.10 - 5.30 [facility] Comment on above: Performed By: #### 2 56305 #### [facility],[address] [place] [address] 99970 WBC 7.3 x 10EE3/UL Normal 4.5 - 10.8 [facility] Comment on above: Performed By: #### 2 83286 #### [facility],[address] [place] [address] 14277 CMP with eGFRon 07-08-2023 AGE 53 years Normal [facility] Comment on above: Performed By: #### 2 88693 #### [facility],[address] [place] [address] 37357 Albumin [Mass/Vol] 3.4 g/dL Normal 3.4 - 5.0 [facility] Comment on above: Performed By: #### 2 52914 #### [facility],[address] [place] [address] 99448 Albumin/Globulin [Mass ratio] 1.0 {ratio} Normal 0.9 - 1.6 [facility] Comment on above: Performed By: #### 2 33092 #### [facility],[address] [place] [address] 10495 ALK PHOS 131 U/L High 46 - 116 [facility] Comment on above: Performed By: #### 2 29396 #### [facility],[address] [place], [place] [phone] ALT [Catalytic activity/Vol] 22 U/L Normal 14 - 59 [facility] Comment on above: Performed By: #### 2 93867 #### [facility],[address] [place] [address] 17749 Anion gap [Moles/Vol] 13 mmol/L Normal 10 - 20 [facility] Comment on above: Performed By: #### 2 63201 #### [facility],[address] [place] [address] 02841 AST [Catalytic activity/Vol] 16 U/L Normal 13 - 39 [facility] Comment on above: Performed By: #### 2 34177 #### [facility],[address] [place] [address] 17421 B/C RATIO 22 ratio Normal 0 - 30 [facility] Comment on above: Performed By: #### 2 68717 #### [facility],[address] [place] [address] 63654 Bilirubin [Mass/Vol] 0.2 mg/dL Normal 0.2 - 1.0 [facility] Comment on above: Performed By: #### 2 77572 #### [facility],[address] [place] [address] 97729 Calcium [Mass/Vol] 8.8 mg/dL Normal 8.5 - 10.1 [facility] Comment on above: Performed By: #### 2 16457 #### [facility],[address] [place] [address] Chloride [Moles/Vol] 111 mmol/L High 98 - 107 [facility] Comment on above: Performed By: #### 2 33452 #### [facility],[address] [place] [address] CMP with eGFR Normal [facility] Comment on above: Result Comment: COMP REHENSIVE METABOLIC PANEL Performed By: #### 2 90318 #### [facility],[address] [place] [address] CO2 [Moles/Vol] 28.4 mmol/L Normal 21.0 - 32.0 [facility] Comment on above: Performed By: #### 2 41076 #### [facility],[address] [place] [address] Creatinine [Mass/Vol] 0.77 mg/dL Normal 0.55 - 1.02 [facility] Comment on above: Performed By: #### 2 91791 #### [facility],[address] [place] [address] GFR/1.73 sq M.predicted among non-blacks MDRD (S/P/Bld) [Vol rate/Area] mL/min/{1.73_m2} Normal 60 - 999 [facility] Comment on above: Performed By: #### 2 40190 #### [facility],[address] [place] [address] Result Comment: ACCO RDING TO THE NATIONAL KIDNEY DISEASE EDUCATION PROGRAM(NKDE), A NORMAL eGFR IS A VALUE GREATER THAN OR EQUAL TO 60 ML/MIN/1.73 SQ METERS. CHRONIC KIDNEY DISEASE: <60mL/MIN/1.73 SQ METERS KIDNEY FAILURE: <15mL/MIN/1.73 SQ METERS THIS TEST SHOULD ONLY BE USED FOR PATIENTS 18 YEARS OF AGE AND OLDER. Globulin (S) [Mass/Vol] 3.5 g/dL Normal 1.5 - 3.8 [facility] Comment on above: Performed By: #### 2 72207 #### [facility],[address] [place] [address] 23980 Glucose [Mass/Vol] 93 mg/dL Normal 74 - 106 [facility] Comment on above: Performed By: #### 2 11525 #### [facility] [facility],[address] [place] [address] 49987 Potassium [Moles/Vol] 4.3 mmol/L Normal 3.5 - 5.1 [facility] Comment on above: Performed By: #### 2 59275 #### [facility],[address] [place] [address] 21978 Protein [Mass/Vol] 6.9 g/dL Normal 6.4 - 8.2 [facility] Comment on above: Performed By: #### 2 70675 #### [facility],[address] [place] [address] 17161 Sodium [Moles/Vol] 148 mmol/L High 136 - 145 [facility] Comment on above: Performed By: #### 2 29453 #### [facility],[address] [place] [address] 67161 Urea nitrogen [Mass/Vol] 17 mg/dL Normal 7 - 18 [facility] Comment on above: Performed By: #### 2 93377 #### [facility],[address] [place] [address] 10392 CORONAVIRUS (SARS) ANTIGEN T ESTon 07-08-2023 EXTERNAL QC DONE? YES Normal [facility] Comment on above: Performed By: #### 2 78837 #### [facility],[address] [place] [address] 99899 INTERNAL CONTROL PASS Normal [facility] Comment on above: Performed By: #### 2 27365 #### [facility],[address] [place] [address] 49673 SARS ANTIGEN Negative Normal NORMAL: NEGATIVE [facility] Comment on above: Performed By: #### 2 22324 #### [facility],[address] [place] [address] 03508 SEND TO ? NO Normal [facility] Comment on above: Result Comment: SARS -CoV-2 THIS TEST IS BEING USED UNDER THE FDA EUA PROCEDURE. THIS ASSAY HAS BEEN VALIDATED AT THE [facility] FOR USE WITH NASAL AND NASOPHARYNGEAL SWAB SPECIMENS. INTERPRETIVE DATA TEST RESULTS SHOULD ALWAYS BE CONSIDERED IN THE CONTEXT OF CLINICAL OBSERVATIONS AND EPIDEMIOLOGICAL DATA IN MAKING FINAL DIAGNOSIS AND PATIENT MANAGEMENT DECISIONS. PATIENT MANAGEMENT SHOULD FOLLOW CURRENT CDC GUIDELINES. THE GRZEGORZ SARS ANTIGEN SYLVIA DOES NOT DIFFERENTIATE BETWEEN SARS-CoV & SARS-CoV-2. A POSITIVE TEST RESULT INDICATES THE PRESENCE OF SARS-CoV-2 NUCLEOCAPSID PROTEIN ANTIGEN, AND THE PATIENT IS INFECTED WITH THE VIRUS AND PRESUMED TO BE CONTAGIOUS. A NEGATIVE TEST RESULT FOR THIS TEST MEANS THAT SARS-CoV-2 NUCLEOCAPSID PROTEIN ANTIGEN WAS NOT PRESENT IN THE SPECIMEN ABOVE THE LIMIT OF DETECTION. HOWEVER, A NEGATIVE RESULT DOES NOT RULE OUT COVID-19 AND SHOULD NOT BE USED THE SOLE BASIS FOR TREATMENT OR PATIENT MANAGEMENT DECISIONS. A NEGATIVE RESULT DOES NOT EXCLUDE THE POSSIBILITY OF COVID-19. NEGATIVE RESULTS, FROM PATIENTS WITH SYMPTOM ONSET BEYOND FIVE DAYS, SHOULD BE TREATED PRESUMPTIVE AND CONFIRMATION WITH A MOLECULAR ASSAY, IF NECESSARY, FOR PATIENT MANAGEMENT, MAY BE PERFORMED. WHEN DIAGNOSTIC TESTING IS NEGATIVE, THE POSSIBLILTY OF A FALSE NEGATIVE RESULT SHOULD BE CONSIDERED IN THE CONTEXT OF A PATIENT'S RECENT EXPOSURES AND THE PRESENCE OF CLINICAL SIGNS AND SYMPTOMS CONSISTENT WITH COVID-19. THE POSSIBILITY OF A FALSE NEGATIVE RESULT SHOULD ESPECIALLY BE CONSIDERED IF THE PATIENT'S RECENT EXPOSURES OR CLINICAL PRESENTATION INDICATE THAT COVID-19 IS LIKELY, AND DIAGNOSTIC TESTS FOR OTHER CAUSES OF ILLNESS (e.g., OTHER RESPIRATORY ILLNESS) ARE NEGATIVE. IF COVID-19 IS STILL SUSPECTED BASED ON EXPOSURE HISTORY TOGETHER WITH OTHER CLINICAL FINDINGS, RE-TESTING SHOULD BE CONSIDERED BY HEALTHCARE PROVIDERS IN CONSULTATION WITH PUBLIC HEALTH AUTHORITIES. Performed By: #### 2 55754 #### [facility],[address] [place] [address] 74335 LIPASEon 07-08-2023 Lipase [Catalytic activity/Vol] 66.0 U/L Low 73.0 - 393 [facility] Comment on above: Performed By: #### 2 86166 #### [facility],[address] [place] [address] 49465 TROPONIN I, HIGH SENSITIVITY on 07-08-2023 HS TROPONIN 5.1 pg/mL Normal 0.0 - 51.4 [facility] Comment on above: Performed By: #### 2 76388 #### [facility],[address] [place] [address] 35787 HS TROPONIN 5.5 pg/mL Normal 0.0 - 51.4 [facility] Comment on above: Performed By: #### 2 80404 #### [facility],[address] [place] [address] 84627 URINALYSISon 07-08-2023 Amorphous NONE Normal [facility] Comment on above: Performed By: #### 2 46877 #### [facility],[address] [place] [address] 65852 Bacteria 4+ Normal [facility] Comment on above: Performed By: #### 2 35483 #### [facility],[address] [place] [address] 90393 Bilirubin Ql (U) Negative Normal NORMAL: NEGATIVE [facility] Comment on above: Performed By: #### 2 94911 #### [facility],[address] [place] [address] 54646 Casts NONE Normal [facility] Comment on above: Performed By: #### 2 66542 #### [facility],[address] [place] [address] 17159 Clarity (U) very cloudy Normal NORMAL: CLEAR [facility] Comment on above: Performed By: #### 2 23441 #### [facility],[address] [place] [address] 84799 Color (U) yellow Normal NORMAL: YELLOW [facility] Comment on above: Performed By: #### 2 79445 #### [facility],[address] [place] [address] 76242 Crystals LM Nom (Urine sed) NONE Normal [facility] Comment on above: Performed By: #### 2 57456 #### [facility],[address] [place] [address] 96538 Epi Cells FEW Normal [facility] Comment on above: Performed By: #### 2 46084 #### [facility],[address] [place] [address] 56565 Glucose Ql (U) NORM Normal NORMAL: NORMAL [facility] Comment on above: Performed By: #### 2 62212 #### [facility],[address] [place], [place] [address] Hemoglobin Ql (U) 10 Abnormal NORMAL: NEGATIVE [facility] Comment on above: Performed By: #### 2 22849 #### [facility],[address] [place], [place] [address] Ketone Negative Normal NORMAL: NEGATIVE [facility] Comment on above: Performed By: #### 2 89088 #### [facility],[address] [place] [address] 98862 Leukocytes 25 Abnormal NORMAL: NEGATIVE [facility] Comment on above: Performed By: #### 2 55393 #### [facility],[address] [place] [address] 52033 Mucous NONE Normal [facility] Comment on above: Performed By: #### 2 26944 #### [facility],[address] [place] [address] 65524 Nitrite Ql (U) Positive Normal NORMAL: NEGATIVE [facility] Comment on above: Performed By: #### 2 71759 #### [facility],[address] [place] [address] 23162 pH (U) 6.5 [pH] Normal NORMAL: 5.0-8.0 [facility] Comment on above: Performed By: #### 2 81698 #### [facility],[address] [place] [address] 09101 Protein Ql (U) 15 Abnormal NORMAL: NEGATIVE [facility] Comment on above: Performed By: #### 2 89092 #### [facility],[address] [place] [address] 04601 Rbc 0-5 Normal 0-3/hpf [facility] Comment on above: Performed By: #### 2 94996 #### [facility],[address] [place] [address] Sp [place] 1.015 Normal NORMAL: 1.010-1.030 [facility] Comment on above: Performed By: #### 2 12368 #### [facility],[address] [place] [address] Specimen Type Void Normal [facility] Comment on above: Performed By: #### 2 35974 #### [facility],[address] [place] [address] Urinalysis dipstick W Reflex Microscopic panel (U) SEE BELOW Normal [facility] Comment on above: Result Comment: MICR OSCOPIC Performed By: #### 2 06457 #### [facility],[address] [place] [address] Urobilinog 1 Abnormal NORMAL: NORMAL [facility] Comment on above: Performed By: #### 2 59015 #### [facility],[address] [place] [address] 16277 Wbc 1-5 Normal 0-5/hpf [facility] Comment on above: Performed By: #### 2 68326 #### [facility],[address] [place] [address] 23329 Yeast NONE Normal [facility] Comment on above: Performed By: #### 2 55541 #### [facility],[address] [place], [place] [address] CBC AND DIFFERENTIALon 02-23 ABSOLUTE BASOPHIL 0.1 x10*3/uL Normal 0.0-0.1 [facility] Comment on above: Performed By: #### 4 [id number] #### [address] ABSOLUTE EOSINOPHIL 0.3 x10*3/uL Normal 0.1-0.3 [facility] Comment on above: Performed By: #### 4 [id number] #### [address] ABSOLUTE IMMATURE GRANULOCYTES 0.0 x10*3/uL Normal 0.0-0.[address] [facility] Comment on above: Performed By: #### 4 [id number] #### [address] ABSOLUTE LYMPH 2.2 x10*3/uL Normal 1.2-3.[address] [facility] Comment on above: Performed By: #### 4 [id number] #### [address] ABSOLUTE MONO 0.6 x10*3/uL Normal 0.2-0.[address] [facility] Comment on above: Performed By: #### 4 [id number] #### [address] ABSOLUTE NEUTROPHIL 5.2 x10*3/uL Normal 2.4-6.6 [facility] Comment on above: Performed By: #### 4 7577325 #### [address] Basophils/100 WBC (Bld) 1.2 % Normal [facility] Comment on above: Performed By: #### 4 [id number] #### [address] Eosinophils/100 WBC (Bld) 3.5 % Normal [facility] Comment on above: Performed By: #### 4 [id number] #### [address] Erythrocyte distribution width (RBC) [Ratio] 14.6 % High 11.5-14.[address] [facility] Comment on above: Performed By: #### 4 2352458 #### [address] Hematocrit (Bld) [Volume fraction] 42.8 % Normal 33.6-46.[address] [facility] Comment on above: Performed By: #### 4 [id number] #### [address] Hemoglobin (Bld) [Mass/Vol] 13.6 g/dL Normal 11.7-15.8 [facility] Comment on above: Performed By: #### 4 [id number] #### [address] Immature granulocytes/100 WBC (Bld) 0.5 % Normal [facility] Comment on above: Performed By: #### 4 [id number] #### [address] Lymphocytes/100 WBC (Bld) 26.0 % Normal [facility] Comment on above: Performed By: #### 4 9342875 #### [address] MCH (RBC) [Entitic mass] 30.4 pg Normal 27.5-32.3 [facility] Comment on above: Performed By: #### 4 [id number] #### [address] MCHC (RBC) [Mass/Vol] 31.8 g/dL Normal 30.7-35.5 [facility] Comment on above: Performed By: #### 4 [id number] #### [address] MCV (RBC) [Entitic vol] 95.5 fL Normal 80.2-99 [facility] Comment on above: Performed By: #### 4 6425886 #### [address] Monocytes/100 WBC (Bld) 7.4 % Normal [facility] Comment on above: Performed By: #### 4 2150309 #### [address] Neutrophils/100 WBC (Bld) 61.4 % Normal [facility] Comment on above: Performed By: #### 4 3168812 #### [address] NUCLEATED RED BLOOD CELLS AUTO 0.0 % Normal 0.0-1.0 [facility] Comment on above: Performed By: #### 4 5557530 #### [address] PLATELET COUNT 266 x10*3/uL Normal 150-400 [facility] Comment on above: Performed By: #### 4 4403292 #### [address] RED BLOOD CELL COUNT 4.48 x10*6/uL Normal 3.60-5.20 [facility] Comment on above: Performed By: #### 4 3173414 #### [address] WHITE BLOOD CELLS 8.5 x10*3/uL Normal 4.3-10.3 [facility] Comment on above: Performed By: #### 4 4817974 #### [address] COMPREHENSIVE METABOLIC PANE Guy 02-23-2023 Albumin [Mass/Vol] 4.3 g/dL Normal 3.5-5.0 [facility] Comment on above: Performed By: #### 4 2193888, [id number], 87441738, 10497381 #### [address] ALK PHOS 175 U/L High 24-126 [facility] Comment on above: Performed By: #### 4 6493199, 46038796, 70031245, 50849995 #### [address] ALT [Catalytic activity/Vol] 22 U/L Normal 4-35 [facility] Comment on above: Performed By: #### 4 3415626, 61801465, 94976219, 52186023 #### [place] [address] AST [Catalytic activity/Vol] 24 U/L Normal 3-47 [facility] Comment on above: Performed By: #### 4 8717231, 75595931, 37264551, 43664092 #### [address] Bilirubin [Mass/Vol] 0.4 mg/dL Normal 0.2-1.6 [facility] Comment on above: Performed By: #### 4 1829774, 96878805, 43575588, 43177731 #### [address] [place] [address] [facility] Calcium [Mass/Vol] 9.2 mg/dL Normal 8.4-10.4 [facility] Comment on above: Performed By: #### 4 3454618, 25138556, 59715688, 05118214 #### [address] [place] [address] [facility] Chloride [Moles/Vol] 103 mmol/L Normal 96-109 [facility] Comment on above: Performed By: #### 4 8681450, 74570161, 68599506, 53952856 #### [address] [place] [address] [facility] CO2 [Moles/Vol] 26 mmol/L Normal 22-30 [facility] Comment on above: Performed By: #### 4 0377130, 83918543, 61997114, 57090752 #### [address] [address] [facility] Creatinine [Mass/Vol] 0.84 mg/dL Normal 0.52-1.04 [facility] Comment on above: Performed By: #### 4 1613328, 77906940, 57244993, 75609633 #### [address] [place] [address] [place] GLOMERULAR FILTRATION RATE ML/MIN/1.73 SQ M.PREDICTED 84.3 mL/min/1.73m*2 Normal >=60.0 [facility] Comment on above: Result Comment: eGFR calculation based on the Chronic Kidney Disease Epidemiology Collaboration (CKD-EPI) equation refit without adjustment for race. Categories in Chronic Kidney Disease (CKD) Category: GFR(mL/min/1.73m^2) Interpretation: G1* 90 or greater Normal or high G2* 60-89 Mild decrease G3a 45-59 Mild to moderate decrease G3b 30-44 Moderate to severe decrease G4 15-29 Severe decrease G5 14 or less Kidney failure *G1&G2: In the absence of evidence of kidney damage, neither GFR category G1 nor G2 fulfill the criteria for CKD Kidney Int Suppl.2013;3:1-150 Performed By: #### 4 [id number], [id number], 75583508, 04113129 #### [address] [place] [address] [place] Glucose [Mass/Vol] 81 mg/dL Normal 65-100 [facility] Comment on above: Performed By: #### 4 9708689, 62787127, 58045987, 11416758 #### [address] Potassium [Moles/Vol] 4.5 mmol/L Normal 3.6-5.1 [facility] Comment on above: Performed By: #### 4 7342590, 59674229, 01933869, 20855132 #### [address] [address] Protein [Mass/Vol] 7.3 g/dL Normal 6.3-8.2 [facility] Comment on above: Performed By: #### 4 7630817, 67140839, 44266038, 46302091 #### [address] [address] Sodium [Moles/Vol] 139 mmol/L Normal 135-147 [facility] Comment on above: Performed By: #### 4 6262227, 65722203, 20420858, 95206973 #### [address] Urea nitrogen [Mass/Vol] 22 mg/dL Normal 8-26 [facility] Comment on above: Performed By: #### 4 2857290, 26623235, 50627939, 19162072 #### [address] HEMOGLOBIN A1Con 02-23-2023 HbA1c (Bld) [Mass fraction] 5.6 % Normal 4.8-5.6 [facility] Comment on above: Order Comment: Perfo rmed at: 01 - [facility] [address] [id number] Used Car Salesperson: Otilio Delacruz PhD, Phone: [phone] Result Comment: Pred iabetes: 5.7 - 6.4 Diabetes: >6.4 Glycemic control for adults with diabetes: <7.0 Performed By: #### 4 [id number] #### [facility] [address] [place] [address] LIPID PANELon 02-23-2023 Cholesterol [Mass/Vol] 123 mg/dL Normal <=200 [facility] Comment on above: Performed By: #### 4 8405140, 70240762, 27559906, 54451419 #### [address] Cholesterol in HDL [Mass/Vol] 63.0 mg/dL High 40.0-59.9 [facility] Comment on above: Performed By: #### 4 5579907, 64539739, 10839906, 07231207 #### [address] LDL CHOLESTEROL CALCULATED 39 mg/dL Normal <=100 [facility] Comment on above: Result Comment: LDL REFERENCE RANGE: Optimal <100 mg/dl Near Optimal 100-129 mg/dL Borderline High 130-159 mg/dL High 160-189 mg/dL Very High >=190 mg/dL Performed By: #### 4 0859100, 28455566, 69538896, 04987550 #### [address] Triglyceride [Mass/Vol] 107 mg/dL Normal <=150 [facility] Comment on above: Performed By: #### 4 6261126, 50496420, 18310539, 69795385 #### [address] VLDL CHOLESTEROL MARCELO 21 mg/dL Normal <=41 [facility] Comment on above: Performed By: #### 4 9674407, 63644304, 91497111, 01668541 #### [address] TSHon 02-23-2023 TSH 2.160 uIU/mL Normal 0.465-4.680 [facility] Comment on above: Performed By: #### 4 2109564, 17568306, 66514176, 25832035 #### [address] VITAMIN D 25 HYDROXYon 02-23 VITAMIN D 25 HYDROXY 26.4 ng/mL Normal [facility] Comment on above: Result Comment: Refe rence Range: Deficiency: <20 ng/mL Insufficiency: 21-29 ng/mL Optimal Level: >=30 ng/mL Possible Toxicity: >80 ng/mL 80 ng/mL is the lowest reported level associated with toxicity in patients without primary hyperthyroidism who have normal renal function. Performed By: #### 4 3095321, 41149699, 02312302, 09386610 #### [address] Leonard 01-26-2023 [facility] QUINTEN YARBROUGH ([id number]) 1970 F Date Time Provider Department 01/26/23 DINA WADE [facility] During your visit today, we recorded the following information about you: Petra Sultana 01/26/2023 10:45 AM Signed Patient is requesting to re-establish her care under [facility]. Patient was discharged from the services of Dr. Wade in 2019. Since he is the only provider accepting new patients at this time, she is requesting to be allowed back into his services. Patient is currently at [facility] but will need a PCP to follow up with after she is discharged. Please advise patient of provider's decision at ph. [phone]. Abebe Vincent LPN 01/26/2023 11:05 AM Signed Pt was dismissed from the Department on 06/20/19, she CANNOT establish care with anyone in [facility]. Also, [facility] is closed so she should remain with her current PCP (Dr. Eliane Gonsalez) or she can look at a different [facility] or outside [facility]. Abebe Bergmanley Kayy 01/26/2023 12:08 PM Signed Patient was notified to contact her insurance to find a provider in her network. Allergies As of Date: 01/26/2023 Noted Allergy Reaction CONTRAST DYE 06/11/2009 4 - Hives AUGMENTIN (AMOXICILLIN-POT CLAVUL*08/11/2005 2 - Rash 4 - Hives BACLOFEN 02/26/2017 1 - Mental Status Change GABAPENTIN 02/11/2012 7 - Swelling IMITREX (SUMATRIPTAN) 02/17/2019 1 - Mental Status Change SHRIMP 09/11/2017 4 - Hives VALERIAN ROOT 04/16/2017 4 - Hives Date Reviewed: 10/29/2022 Reviewed by: Sangita Alas RN - Fully Assessed Reason for Visit: Patient Question [1477] Prescriptions as of 01/26/2023 - loperamide (IMODIUM A-D) 2 mg cap(s) Take 2 capsules, twice a day. - diphenoxylate-atropi ne (LOMOTIL) 2.5-0.025 mg per tablet Take 1 tablet by mouth four times daily as needed for up to 30 days. - dicyclomine (BENTYL) 10 mg capsule Take 1 capsule by mouth before meals and at bedtime. - isosorbide mononitrate ER (IMDUR) 60 mg 24 hr tablet Take 2 tablets by mouth once daily. NO further refills from this provider, patient has been instructed to find new PCP - albuterol HFA (PROVENTIL HFA, VENTOLIN HFA) 90 mcg/actuation inhaler Inhale 2 Puffs as instructed every 6 hours as needed. - furosemide (LASIX) 40 mg tablet Take 2 tablets by mouth twice daily. - spironolactone (ALDACTONE) 25 mg tablet Take 1 tablet by mouth once daily. - guaiFENesin (MUCINEX) 600 mg 12 hr tablet Take 2 tablets by mouth twice daily as needed for Cold/Allergy Symptoms. - ferrous sulfate 325 mg (65 mg iron) tablet Take 1 tablet by mouth twice daily. - Zinc 50 mg tab Take 1 tablet by mouth once daily. - EPINEPHrine (EPIPEN) 0.3 mg/0.3 mL auto-injector Inject 0.3 mL intramuscularly as needed (For allergic reaction). - cyclobenzaprine (FLEXERIL) 5 mg tablet Take 1 tablet by mouth three times daily as needed for Muscle Spasm. - omeprazole (PRILOSEC) 20 mg capsule Take 1 capsule by mouth once daily. - fluticasone (FLONASE) 50 mcg/actuation nasal spray USE 2 SPRAYS IN EACH NOSTRIL DAILY - ondansetron orally disintegrating (ZOFRAN ODT) 4 mg disintegrating tablet Take 1 tablet by mouth every 8 hours as needed for Nausea/Vomiting. - COMPOUNDED PRESCRIPTION Hospital bed with trapeze to be used nightly for morbidly obese patient with BMI >75 Dx: E66.01 - ergocalciferol, vitamin D2, (DRISDOL) 50,000 unit capsule Take 1 capsule by mouth twice a week. - clotrimazole (LOTRIMIN, CLOTRIM) 1 % cream Apply 1 application to affected area twice daily. - bacitracin 500 unit/gram ointment Apply 1 application to affected area twice daily. - sertraline (ZOLOFT) 50 mg tablet Take 1 tablet by mouth once daily. - ALPRAZolam (XANAX) 1 mg tablet Take 1 mg by mouth at bedtime as needed. - amitriptyline (ELAVIL) 25 mg tablet Take 25 mg by mouth daily at bedtime. - nystatin (NYSTOP) powder Apply 1 application to affected area four times daily. - hydrOXYzine pamoate (VISTARIL) 50 mg capsule TAKE 2 CAPSULES (100 MG) BY MOUTH THREE TIMES A DAY NEEDED FOR ANXIETY - amLODIPine (NORVASC) 10 mg tablet TAKE 1 TABLET DAILY - sotalol (BETAPACE) 80 mg tablet Take 1 tablet by mouth every 12 hours. - meclizine (ANTIVERT) 25 mg tab Take 25 mg by mouth three times daily. - topiramate (TOPAMAX) 100 mg tablet Take 100 mg by mouth three times daily. - apixaban (ELIQUIS) 5 mg tab tab(s) Take 1 tablet by mouth twice daily. Meds Comments as of 01/14/2019: 01/14/2019: Takes multiple medications daily including Eliquis. Takes multiple medications PRN. Corrine Vines RN (Nurse real estate operations manager). Not taking mobic or melatonin. Taking tramadol 50mg q6hr prn x1 week. Took stool softeners this morning and now and fleetz enema this morning. 01/29/18 Shruti Ag rn Patient states that meds are current. Reports does not take Prednisone- - (more content not included)... Normal [facility] HbA1c (Bld)on 01-13-2023 Average glucose Estimated from glycated hemoglobin (Bld) [Mass/Vol] 103 mg/dL Normal [facility] Comment on above: Order Comment: Speci men Type: BLOOD SPECIMEN Ordering Facility: [facility] Address: [address] [place] [address] Result Comment: eAG: (Estimated average glucose) is a calculated value from HgbA1c and is [employer] representatives of the average blood glucose level in the last 2-3 month period. Performed By: #### 5 5454-3 #### [facility] CLIA [id number] [address] [place] [address] [place] HbA1c (Bld) [Mass fraction] 5.2 % Normal 4.3-5.6 [facility] Comment on above: Order Comment: Speci men Type: BLOOD SPECIMEN Ordering Facility: [facility] [place] [address] Result Comment: [place] Diabetes Association guidelines indicate that patients with HgbA1c in the range 5.7-6.4% are at increased risk for development of diabetes, and intervention by lifestyle modification may be beneficial. HgbA1c greater or equal to 6.5% is considered diagnostic of diabetes. Performed By: #### 5 5454-3 #### [facility] CLIA [id number] [address] [place] [address] [place] NM CARDIAC PERF STRESS/PHARM on 10-29-2022 NM CARDIAC PERF STRESS/PHARM * * *Final Report* * * DATE OF EXAM: Oct 29 2022 1:20PM N 0006 - NM CARDIAC PERF STRESS/PHARM / PROCEDURE REASON: Other chest pain * * * * Physician Interpretation * * * * Stress Sash Clamp Operator Report: [facility] ARSEN-2 Date of service: 10/29/2022 1:20:08 PM Supervising physician: Briseida Torres MD PATIENT: Name: MS. QUINTEN YARBROUGH Age: 52 years Gender: F The supervising physician was in the department and immediately available. Final PATIENT: Name: MS. QUINTEN YARBROUGH Age: 52 years Gender: F CONCLUSIONS: 1. SPECT Perfusion Study: Normal. Poor quality (BMI of 70). Consider PET imaging in the future of clinically indicated. 2. There is no scintigraphic evidence for inducible ischemia. 3. No evidence of scarred myocardium. 4. Left ventricle is mildly dilated. The left ventricle systolic function is normal. 5. Right ventricle is normal in size. The right ventricle systolic function is normal. 6. This is a low risk scan. Gated Stress FBP Gated Rest FBP LVEF % 50 64 Prior Study Comparison No prior nuclear cardiology exam available for comparison. Nuclear Med Report:1-Day Gated SPECT Myocardial Perfusion with Regadenoson Stress: Myocardial perfusion imaging was performed at rest 30 minutes following the IV injection of the radiotracer. The patient received 0.4 mg of regadenoson, via rapid IV push, immediately followed by radiotracer IV. Gated post stress tomographic imaging was performed 30 to 60 minutes later. See administered radiotracer and doses below. Main [place] Date of service: 10/29/2022 1:20:08 PM Ordering Physician: JULIO C MORRISSEY. Requesting Physician: JULIO C MORRISSEY Indication: CP - ECG interpretable AND able to exercise with interm/high pre-test probability Fellow: Raquel White MD Interpreting physician: Briseida Torres MD Height: 163.80 cm BSA: 2.93 m? Weight: 188.20 kg BMI: 70.1 kg/m? Imaging Protocol Limitation Reason Patient motion and G.I. uptake. CT Dose-Length Product(DLP): 36.0 mGy*cm. CT Dose Reduction Employed: Yes. Exam Type: Rest Stress Radiopharm: Tc-99m Tetrofosmin Tc-99m Tetrofosmin Dosage(mCi): 15.5 50 Atten Correction: performed performed Stress Agent: Regadenoson 0.4mg Supply provided from [facility] Resting Blood Press: 152/70 mmHg Image Quality The overall study imaging quality was deemed to be poor. The following technical issues were noted: Patient motion and G.I. uptake. FINDINGS: Stress IR:3D Gated Stress FBP Gated Rest FBP LVEF: 50 % 64 % ED Volume: 136 ml 169 ml ES Volume: 68 ml 61 ml TID: 0.91 Perfusion Findings Stress IR:3D - Summed Score=0 All segments demonstrate normal perfusion. Rest IR:3D - Summed Score=0 All segments demonstrate normal perfusion. Stress IR:3D Rest IR:3D Summed Score=0 Summed Score=0 LEFT VENTRICLE The left ventricle is mildly dilated. Left ventricular systolic function is normal. Right Ventricle The right ventricle is normal in size. Right ventricle systolic function is normal. Stress Test Findings: There is no scintigraphic evidence for inducible ischemia. There is no evidence of scarring. The left ventricular cavity size is decreased with stress. Final [place] CTAC Report: [facility] Date of service: 10/29/2022 1:20:08 PM CTAC interpreting physician: Briseida Torres MD PATIENT: Name: MS. QUINTEN YARBROUGH Age: 52 years Gender: F Final Stress ECG Report: [facility] Date of service: 10/29/2022 1:20:08 PM Ordering physician: JULIO C MORRISSEY residential support specialist: Polly Davidson Internal Carver: Evelyn Mercer Fellow: Raquel White MD Interpreting physician: Briseida Torres MD Patient name: MS. QUINTEN YARBROUGH Age: 52 years Gender: F Height: 163.80 cm BSA: 2.93 m? Weight: 188.20 kg BMI: 70.1 kg/m? Indication: Non-angina chest pain Stress ECG Conclusion: Conclusion: Normal Stress ECG Summary: The patient's resting heart rate was 40 bpm and blood pressure was 152/70 mmHg. The test was terminated due to end of protocol. No symptoms provoked during stress. The maximum heart rate was 59 bpm, which is 35% of the predicted heart rate for age. Peak blood pressure was 148/79 mmHg. The double product achieved was 8732. Medications: Last Used SOTALOL LASIX ALDACTONE AMLODIPINE Resting ECG: Sinus Bradycardia Pharamcologic Protocol: Regadenoson Str (more content not included)... Normal [facility] Bacteria Ur Culton 2 Bacteria identified Cx Nom (U) CULTURE, URINE: Mixed microbiota: ORGANISM ID: 1 >=100,000 CFU/ml Escherichia coli ORGANISM ID: 2 10,000 -<50,000 CFU/ml Lactose positive gram negative bacilli Morphology 2 Insignificant colony count. No further workup. ORGANISM ID: 1 (ESCHERICHIA COLI) ANTIBIOTIC INTERPRETATION CHRISTINE STATUS REFERENCE RANGE Ampicillin R >=32 F Susceptible <=8 , Intermediate >8 , Resistant >16 Ampicillin/Sulbact I 16 F Susceptible <=8 , Intermediate >8 , Resistant >16 Cefazolin S <=4 F Susceptible 0-16 , Intermediate <0 or >16 , Resistant >16 Cefepime S <=1 F Susceptible <=2 , Intermediate >2 , Resistant >=16 Ceftriaxone S <=1 F Susceptible <=1 , Intermediate >1 , Resistant >=4 Ciprofloxacin R >=4 F Susceptible <0.5 , Intermediate >=.5 , Resistant >=1 Ertapenem S <=0.5 F Susceptible <=0.5 , Intermediate >.5 , Resistant >1 Gentamicin S <=1 F Susceptible <=4 , Intermediate >4 , Resistant >8 Meropenem S <=0.25 F Susceptible <=1 , Intermediate >1 , Resistant >2 Nitrofurantoin S <=16 F Susceptible <=32 , Intermediate >32 , Resistant >64 Piperacillin/Tazobac S <=4 F Susceptible <=16 , Intermediate >16 , Resistant >64 Tobramycin S <=1 F Susceptible <=4 , Intermediate >4 , Resistant >8 Trimeth sulfameth S <=20 F Susceptible <=40 , Resistant >40 Abnormal [facility] Comment on above: Performed By: #### 6 30-4 #### [facility] CLIA [id number] [address] [place] [address] [place] Bacteria [facility] 2 Bacteria identified Cx Nom (U) ORGANISM ID: 1 >=100,000 CFU/ml Escherichia coli ORGANISM ID: 1 (ESCHERICHIA COLI) ANTIBIOTIC INTERPRETATION CHRISTINE STATUS REFERENCE RANGE Ampicillin R >=32 F Susceptible <=8 , Intermediate >8 , Resistant >16 Ampicillin/Sulbact I 16 F Susceptible <=8 , Intermediate >8 , Resistant >16 Cefazolin S <=4 F Susceptible 0-16 , Intermediate <0 or >16 , Resistant >16 Cefepime S <=1 F Susceptible <=2 , Intermediate >2 , Resistant >=16 Ceftriaxone S <=1 F Susceptible <=1 , Intermediate >1 , Resistant >=4 Ciprofloxacin R >=4 F Susceptible <0.5 , Intermediate >=.5 , Resistant >=1 Ertapenem S <=0.5 F Susceptible <=0.5 , Intermediate >.5 , Resistant >1 Gentamicin S <=1 F Susceptible <=4 , Intermediate >4 , Resistant >8 Meropenem S <=0.25 F Susceptible <=1 , Intermediate >1 , Resistant >2 Nitrofurantoin S <=16 F Susceptible <=32 , Intermediate >32 , Resistant >64 Piperacillin/Tazobac S <=4 F Susceptible <=16 , Intermediate >16 , Resistant >64 Tobramycin S <=1 F Susceptible <=4 , Intermediate >4 , Resistant >8 Trimeth sulfameth S <=20 F Susceptible <=40 , Resistant >40 Abnormal [facility] Comment on above: Performed By: #### 6 30-4 #### [facility] CLIA [id number] [address] [place] [address] [place] HbA1c (Bld)on 07-20-2022 Average glucose Estimated from glycated hemoglobin (Bld) [Mass/Vol] 114 mg/dL Normal [facility] Comment on above: Order Comment: Domi weaver Type: BLOOD SPECIMEN Ordering Facility: [facility] Address: [address] [place] [address] Result Comment: eAG: (Estimated average glucose) is a calculated value from HgbA1c and is lifeline representatives of the average blood glucose level in the last 2-3 month period. Performed By: #### 5 5454-3 #### [facility] CLIA [id number] [address] [place] [address] [place] HbA1c (Bld) [Mass fraction] 5.6 % Normal 4.3-5.6 [facility] Comment on above: Order Comment: Domi weaver Type: BLOOD SPECIMEN Ordering Facility: [facility] Address: [address] [place] [address] Result Comment: [place] Diabetes Association guidelines indicate that patients with HgbA1c in the range 5.7-6.4% are at increased risk for development of diabetes, and intervention by lifestyle modification may be beneficial. HgbA1c greater or equal to 6.5% is considered diagnostic of diabetes. Performed By: #### 5 5454-3 #### [facility] CLIA [id number] [address] [place] [address] [place] PROCALCITONIN (LAB)on 2021 Procalcitonin [Mass/Vol] ng/mL Normal <0.09 [facility] Comment on above: Order Comment: Domi weaver Type: BLOOD SPECIMEN Ordering Facility: [facility] Address: [address] [place] [address] Result Comment: For a guided interpretation of test results, please visit the Change in Procalcitonin Calculator, [email or web address]. Performed By: #### P ROCAL #### [facility] CLIA [id number] [address] [place] [address] [place] Prolactin SerPl-mCncon 02-25 Prolactin [Mass/Vol] 3.8 ng/mL Low 4.5-26.8 [facility] Comment on above: Order Comment: Domi weaver Type: BLOOD SPECIMEN Ordering Facility: [facility] Address: [address] [place] [address] Performed By: #### 2 842-3 #### [facility] CLIA [id number] [address] [place] [address] [place] Hemoglobin A1con 09-21-2021 Glucose [Mass/Vol] 114 mg/dL Normal [facility] Comment on above: Performed By: #### H BA1C #### [facility] Routine Lab [address] [place] [address] HbA1c (Bld) [Mass fraction] 5.6 % Normal 4.3-5.6 [facility] Comment on above: Performed By: #### H BA1C #### [facility] Routine Lab [address] [place], [place] [id number] Hemoglobin A1con 06-18-2021 Glucose [Mass/Vol] 114 mg/dL Normal [facility] Comment on above: Performed By: #### H BA1C #### [facility] Routine Lab [address] [place], [place] [id number] HbA1c (Bld) [Mass fraction] 5.6 % Normal 4.3-5.6 [facility] Comment on above: Performed By: #### H BA1C #### [facility] Routine Lab [address] [place], [place] [id number] Basic Metabolic Panelon 12-02 Anion gap [Moles/Vol] 6 Normal [facility] Comment on above: Performed By: #### B MP3M, MG3 #### [facility] [address] [place] [address] Calcium [Mass/Vol] 8.2 mg/dL Low 8.4-10.4 [facility] Comment on above: Performed By: #### Amanda MP3M, MG3 #### [facility] [address] [place] [address] CO2 [Moles/Vol] 23 mmol/L Normal 22-30 [facility] Comment on above: Performed By: #### Amanda MP3M, MG3 #### [facility] [address] [place] [address] Glucose [Mass/Vol] 92 mg/dL Normal 70-100 [facility] Comment on above: Performed By: #### Amanda MP3M, MG3 #### [facility] [address] [place] [address] Urea nitrogen [Mass/Vol] 13 mg/dL Normal 7-20 [facility] Comment on above: Performed By: #### Amanda MP3M, MG3 #### [facility] [address] [place] [address] Creatinine [Mass/Vol] 0.80 mg/dL Normal 0.52-1.25 [facility] Comment on above: Performed By: #### B MP3M, MG3 #### [facility] [address] [place], [place] GFR/1.73 sq M predicted among blacks MDRD (S/P/Bld) [Vol rate/Area] mL/min/{1.73_m2} Normal >60 [facility] Comment on above: Performed By: #### B MP3M, MG3 #### [facility] [address] [place], [place] GFR/1.73 sq M predicted among non-blacks MDRD (S/P/Bld) [Vol rate/Area] mL/min/{1.73_m2} Normal >60 [facility] Comment on above: Result Comment: Sour ce- MDRD equation with creatinine calibration to IDMS(NKDEP) eGFR not recommended for drug dose adjustment Performed By: #### Amanda MP3M, MG3 #### [place] [address] [address] [place], [place] Potassium [Moles/Vol] 4.1 mmol/L Normal 3.5-5.1 [facility] Comment on above: Performed By: #### Amanda MP3M, MG3 #### [place] [address] [address] [place], [place] Sodium [Moles/Vol] 138 mmol/L Normal 135-145 [facility] Comment on above: Performed By: #### Amanda MP3M, MG3 #### [place] [address] [address] [place], [place] Chloride [Moles/Vol] 110 mmol/L High 98-107 [facility] Comment on above: Performed By: #### Amanda MP3M, MG3 #### [place] [address] [address] [place], [place] Basic Metabolic Panel w/ Ref jonathan to MGon 12-20-2019 Anion gap [Moles/Vol] 6 mmol/L [facility], [place] Calcium [Mass/Vol] 8.2 mg/dL Low 8.4 - 10. 4 mg/dL [facility], [place] Chloride [Moles/Vol] 110 mmol/L High 98 - 10 7 mmol/L [facility] CO2 [Moles/Vol] 23 mmol/L 22 - 30 mmol/L [place], [place] Creatinine [Mass/Vol] 0.8 mg/dL 0.52 - 1.25 mg/dL [place], [place] EGFR IF NonAfrican [place] >60.0 >60 mL/min [place] Comment on above: Source- MDRD equatio n with creatinine calibration to IDMS(NKDEP) eGFR not recommended for drug dose adjustment GFR/1.73 sq M predicted among blacks MDRD (S/P/Bld) [Vol rate/Area] mL/min/{1.73_m2} >60 mL/min [place] Glucose [Mass/Vol] 92 mg/dL 70 - 100 mg/dL [place] Interpretation and review of laboratory results Abnormal [place] Potassium [Moles/Vol] 4.1 mmol/L 3.5 - 5.1 mmol/L [place] Sodium [Moles/Vol] 138 mmol/L 135 - 145 mmol/L [place] Urea nitrogen [Mass/Vol] 13 mg/dL 7 - 20 mg/dL [place] CBC auto differentialon 12-02 Erythrocyte distribution width (RBC) [Ratio] 16.8 % High 11.5 - 14.5 % [place] Hematocrit (Bld) [Volume fraction] 23.7 % Low 35 - 47 % [place] Hemoglobin (Bld) [Mass/Vol] 7.9 g/dL Low 11.7 - 16 g/dL [place] Interpretation and review of laboratory results Abnormal [place] MCH (RBC) [Entitic mass] 30.5 pg 26 - 34 pg [place] MCHC (RBC) [Mass/Vol] 33.5 % 32 - 36 % [place], [place] MCV (RBC) [Entitic vol] 91.0 fL 79 - 98 fL [place], [place] Platelet mean volume (Bld) [Entitic vol] 8.2 fL 7.4 - 10.4 fL [place], [place] Platelets (Bld) [#/Vol] 222 10*3/uL 140 - 440 10*3/uL [place] RBC (Bld) [#/Vol] 2.60 10*6/uL Low 3.8 - 5.2 10*6/uL [place] WBC (Bld) [#/Vol] 8.3 10*3/uL 3.6 - 10.7 10*3/uL [place] Test Performed by [facility] [employer] [facility], [address] [place] [id number] [place] [address] Calcium,Ionizedon 12-20-2019 Ionized Ca,Measured 4.20 mg/dL Low 4.30-5.20 [facility] Comment on above: Performed By: #### M DIFF, HEMDF, ICA #### [address] pH, Ionized Calcium 7.39 Normal 7.31-7.46 [facility] Comment on above: Performed By: #### M DIFF, HEMDF, ICA #### [address] Hemogram w/ Autodiffon 12-19 Erythrocyte distribution width (RBC) [Ratio] 16.8 % High 11.5-14.5 [facility] Comment on above: Performed By: #### M DIFF, HEMDF, ICA #### [address] Hematocrit (Bld) [Volume fraction] 23.7 % Low 35.0-47.0 [facility] Comment on above: Performed By: #### M DIFF, HEMDF, ICA #### [address] Hemoglobin (Bld) [Mass/Vol] 7.9 g/dL Low 11.7-16.0 [facility] Comment on above: Performed By: #### M DIFF, HEMDF, ICA #### [address] MCH (RBC) [Entitic mass] 30.5 pg Normal 26.0-34.0 [facility] Comment on above: Performed By: #### M DIFF, HEMDF, ICA #### [address] MCHC (RBC) [Mass/Vol] 33.5 % Normal 32.0-36.0 [facility] Comment on above: Performed By: #### M DIFF, HEMDF, ICA #### [address] MCV (RBC) [Entitic vol] 91.0 fL Normal 79.0-98.0 [facility] Comment on above: Performed By: #### M DIFF, HEMDF, ICA #### [address] Platelet mean volume (Bld) [Entitic vol] 8.2 fL Normal 7.4-10.4 [facility] Comment on above: Performed By: #### M DIFF, HEMDF, ICA #### [address] Platelets (Bld) [#/Vol] 222 10*3/uL Normal 140-440 [facility] Comment on above: Performed By: #### M DIFF, HEMDF, ICA #### [address] RBC (Bld) [#/Vol] 2.60 10*6/uL Low 3.80-5.20 [facility] Comment on above: Performed By: #### M DIFF, HEMDF, ICA #### [address] WBC (Bld) [#/Vol] 8.3 10*3/uL Normal 3.6-10.7 [facility] Comment on above: Performed By: #### M DIFF, HEMDF, ICA #### [address] Ionized Calciumon 12-20-2019 Interpretation and review of laboratory results Abnormal [place] Ionized Ca 4.20 mg/dL Low 4.3 - 5.2 mg/dL [place] pH (Bld) 7.39 [pH] [place] Test Performed by [place] [address] [place] Magnesiumon 12-20-2019 Magnesium [Mass/Vol] 1.7 mg/dL Normal 1.6-2.3 [facility] Comment on above: Performed By: #### B MP3M, MG3 #### [place] [address] [address] [place], [place] Magnesium [Mass/Vol] 1.7 mg/dL 1.6 - 2 .3 mg/dL [place] Manual Diffon 12-20-2019 Abs Eosin Cnt 0.2 10*3/uL Normal 0.0-0.5 [facility] Comment on above: Performed By: #### M DIFF, HEMDF, ICA #### [place] [address] [address] [place], [place] Abs Lymph Cnt 1.9 10*3/uL Normal 1.1-4.5 [facility] Comment on above: Performed By: #### M DIFF, HEMDF, ICA #### [place] [address] [place], [place] Abs Monocyte Cnt 0.6 10*3/uL Normal 0.2-1.1 [facility] Comment on above: Performed By: #### M DIFF, HEMDF, ICA #### [address] Abs Neutrophile Cnt 5.3 10*3/uL Normal 2.2-8.2 [facility] Comment on above: Performed By: #### M DIFF, HEMDF, ICA #### [place] [address] [address] [place], [place] Bands 2 % Normal 0-3 [facility] Comment on above: Performed By: #### M DIFF, HEMDF, ICA #### [address] Eosinophils 3 % Normal 1-6 [facility] Comment on above: Performed By: #### M DIFF, HEMDF, ICA #### [place] [address] [place], [place] Lymphocytes 23 % Normal 20-40 [facility] Comment on above: Performed By: #### M DIFF, HEMDF, ICA #### [place] [address] [address] [place], [place] Metamyelocytes 3 % Abnormal <1 [facility] Comment on above: Performed By: #### M DIFF, HEMDF, ICA #### [place] [address] [address] [place], [place] Monocytes 7 % Normal 2-10 [facility] Comment on above: Performed By: #### M DIFF, HEMDF, ICA #### [place] [address] [address] [place], [place] RBC morphology finding Nom (Bld) See Prev Normal [facility] Comment on above: Performed By: #### M DIFF, HEMDF, ICA #### [place] [address] [address] [place], [place] Seg Neutrophils 62 % Normal 40-80 [facility] Comment on above: Performed By: #### M DIFF, HEMDF, ICA #### [place] [address] [address] [place], [place] Abs Baso Cnt 0.0 10*3/uL Normal 0.0-0.2 [facility] Comment on above: Performed By: #### M DIFF, HEMDF, ICA #### [place] [address] [address] [place], [place] Basophils 0 % Normal 0-2 [facility] Comment on above: Performed By: #### M DIFF, HEMDF, ICA #### [place] [address] [address] [place], [place] Cells counted 100 Normal [facility] Comment on above: Performed By: #### M DIFF, HEMDF, ICA #### [place] [address] [place], [place] Manual Differentialon 2019 Absolute Baso # 0.0 10*3/uL 0 - 0.2 10*3/uL [facility], [place] Absolute Eos # 0.2 10*3/uL 0 - 0.5 10*3/uL [facility], [place] Absolute Lymph # 1.9 10*3/uL 1.1 - 4.5 10*3/uL [facility], [place] Absolute [place] # 0.6 10*3/uL 0.2 - 1.1 10*3/uL [facility], [place] Absolute Neut # 5.3 10*3/uL 2.2 - 8.2 10*3/uL [facility], [place] Bands 2 % 0 - 3 % [facility] [place], [place] Basophils 0 % 0 - 2 % [facility], [place] Eosinophils 3 % 1 - 6 % [facility] [place], [place] Interpretation and review of laboratory results Abnormal [place] Lymphocytes 23 % 20 - 40 % [facility], [place] Metamyelocytes 3 % Abnormal <1 [facility], [place] Monocytes 7 % 2 - 10 % [facility] [place], [place] RBC morphology finding Nom (Bld) See Prev [facility], [place] Seg Neutrophils 62 % 40 - 80 % [facility], [place] TOTAL CELLS COUNTED 100 [place] Test Performed by [address] [address] [place] Otheron 12-20-2019 Test Performed by [address] [address] [place] Phosphoruson 12-20-2019 Phosphate [Mass/Vol] 3.1 mg/dL Normal 2.5-4.5 [facility] Comment on above: Performed By: #### B MP3M, MG3 #### [address] [address] Phosphate [Mass/Vol] 3.1 mg/dL 2.5 - 4 .5 mg/dL [place] Basic Metabolic Panelon 12-02 Calcium [Mass/Vol] 8.5 mg/dL Normal 8.4-10.4 [facility] Comment on above: Performed By: #### M DIFF, HEMDF, ICA #### [address] [address] Anion gap [Moles/Vol] 4 Normal [facility] Comment on above: Performed By: #### M DIFF, HEMDF, ICA #### [address] [address] CO2 [Moles/Vol] 24 mmol/L Normal 22-30 [facility] Comment on above: Performed By: #### M DIFF, HEMDF, ICA #### [place] [address] [place] [address] Creatinine [Mass/Vol] 0.75 mg/dL Normal 0.52-1.25 [facility] Comment on above: Performed By: #### M DIFF, HEMDF, ICA #### [place] [address] [place] [address] GFR/1.73 sq M predicted among blacks MDRD (S/P/Bld) [Vol rate/Area] mL/min/{1.73_m2} Normal >60 [facility] Comment on above: Performed By: #### M DIFF, HEMDF, ICA #### [place] [address] [place] GFR/1.73 sq M predicted among non-blacks MDRD (S/P/Bld) [Vol rate/Area] mL/min/{1.73_m2} Normal >60 [facility] Comment on above: Result Comment: Sour ce- MDRD equation with creatinine calibration to IDMS(NKDEP) eGFR not recommended for drug dose adjustment Performed By: #### M DIFF, HEMDF, ICA #### [place] [address] [address] [place], [place] Glucose [Mass/Vol] 91 mg/dL Normal 70-100 [facility] Comment on above: Performed By: #### M DIFF, HEMDF, ICA #### [place] [address] [address] [place], [place] Urea nitrogen [Mass/Vol] 18 mg/dL Normal 7-20 [facility] Comment on above: Performed By: #### M DIFF, HEMDF, ICA #### [place] [address] [address] [place] Chloride [Moles/Vol] 110 mmol/L High 98-107 [facility] Comment on above: Performed By: #### M DIFF, HEMDF, ICA #### [place] [address] [place] [address] Potassium [Moles/Vol] 3.6 mmol/L Normal 3.5-5.1 [facility] Comment on above: Performed By: #### M DIFF, HEMDF, ICA #### [facility] [address] [place] [address] Sodium [Moles/Vol] 138 mmol/L Normal 135-145 [facility] Comment on above: Performed By: #### M DIFF, HEMDF, ICA #### [facility] [address] [place] [address] Basic Metabolic Panel w/ Ref jonathan to MGon 12-19-2019 Anion gap [Moles/Vol] 4 mmol/L [place], [place] Calcium [Mass/Vol] 8.5 mg/dL 8.4 - 10. 4 mg/dL [place] Chloride [Moles/Vol] 110 mmol/L High 98 - 10 7 mmol/L [place] CO2 [Moles/Vol] 24 mmol/L 22 - 30 mmol/L [place] Creatinine [Mass/Vol] 0.75 mg/dL 0.52 - 1.25 mg/dL [place] EGFR IF NonAfrican [place] >60.0 >60 mL/min [place] Comment on above: Source- MDRD equatio n with creatinine calibration to IDMS(NKDEP) eGFR not recommended for drug dose adjustment GFR/1.73 sq M predicted among blacks MDRD (S/P/Bld) [Vol rate/Area] mL/min/{1.73_m2} >60 mL/min [place] Glucose [Mass/Vol] 91 mg/dL 70 - 100 mg/dL [place] Interpretation and review of laboratory results Abnormal [place] Potassium [Moles/Vol] 3.6 mmol/L 3.5 - 5.1 mmol/L [place] Sodium [Moles/Vol] 138 mmol/L 135 - 145 mmol/L [place] Urea nitrogen [Mass/Vol] 18 mg/dL 7 - 20 mg/dL [place] CBC auto differentialon 12-02 Erythrocyte distribution width (RBC) [Ratio] 16.7 % High 11.5 - 14.5 % [place] Hematocrit (Bld) [Volume fraction] 25.0 % Low 35 - 47 % [place] Hemoglobin (Bld) [Mass/Vol] 8.6 g/dL Low 11.7 - 16 g/dL [place] Interpretation and review of laboratory results Abnormal [place] MCH (RBC) [Entitic mass] 31.3 pg 26 - 34 pg [place] MCHC (RBC) [Mass/Vol] 34.6 % 32 - 36 % [place] MCV (RBC) [Entitic vol] 90.4 fL 79 - 98 fL [place] Platelet mean volume (Bld) [Entitic vol] 8.3 fL 7.4 - 10.4 fL [place] Platelets (Bld) [#/Vol] 242 10*3/uL 140 - 440 10*3/uL [place] RBC (Bld) [#/Vol] 2.77 10*6/uL Low 3.8 - 5.2 10*6/uL [place] WBC (Bld) [#/Vol] 10.8 10*3/uL High 3.6 - 10.7 10*3/uL [place] Test Performed by [facility], [address] [place] [address] [place], [place] Calcium,Ionizedon 12-19-2019 Ionized Ca,Measured 4.20 mg/dL Low 4.30-5.20 [facility] Comment on above: Performed By: #### M DIFF, HEMDF, ICA #### [facility] [address] [place] [address] pH, Ionized Calcium 7.40 Normal 7.31-7.46 [facility] Comment on above: Performed By: #### M DIFF, HEMDF, ICA #### [facility] [address] [place] [address] Culture, Blood 1on 0 Blood Culture, Routine No growth at 5 days. [place], [place] Test Performed by [address] [address] Specimen Source Comment:Blood [place] Culture, Blood 2on 0 Blood Culture, Routine Isolated: Contamination likely unless additional blood culture sets are found to be positive with the same organism. [place] Blood Culture, Routine Staphylococcus epidermidis Abnormal [place] Blood Culture, Routine POSITIVE: Staphylococcus species (probable Coagulase negative Staph) DETECTED. POSITIVE: mecA (methicillin resistance gene) DETECTED. Presumptive identification performed using [employer] PCR methodology; confirmatory identification to follow. _ The [employer] Blood Culture Identification PCR Panel can detect the following targets: Staphylococcus aureus, Staphylococcus species, Enterococcus species, Streptococcus species, Streptococcus agalactiae (Group B), Streptococcus pneumoniae, Streptococcus pyogenes (Group A), Listeria monocytogenes, Acinetobacter baumannii complex, Enterobacteriaceae, Enterobacter cloacae complex, Escherichia coli, Klebsiella oxytoca, Klebsiella pneumoniae, Proteus species, Serratia marcescens, Pseudomonas aeruginosa, Haemophilus influenzae, Neisseria meningitidis, Shari albicans, Shari glabrata, Shari krusei, Shari parapsilosis, Shari tropicalis Abnormal [place] Interpretation and review of laboratory results Abnormal [place] Test Performed by [address] [address] Specimen Source Comment:Blood [place] Hemogram w/ Autodiffon 12-18 Erythrocyte distribution width (RBC) [Ratio] 16.7 % High 11.5-14.5 [facility] Comment on above: Performed By: #### M DIFF, HEMDF, ICA #### [address] Hematocrit (Bld) [Volume fraction] 25.0 % Low 35.0-47.0 [facility] Comment on above: Performed By: #### M DIFF, HEMDF, ICA #### [address] Hemoglobin (Bld) [Mass/Vol] 8.6 g/dL Low 11.7-16.0 [facility] Comment on above: Performed By: #### M DIFF, HEMDF, ICA #### [address] [place], [place] MCH (RBC) [Entitic mass] 31.3 pg Normal 26.0-34.0 [facility] Comment on above: Performed By: #### M DIFF, HEMDF, ICA #### [facility] [address] [place], [place] MCHC (RBC) [Mass/Vol] 34.6 % Normal 32.0-36.0 [facility] Comment on above: Performed By: #### M DIFF, HEMDF, ICA #### [address] [address] [address] [place], [place] MCV (RBC) [Entitic vol] 90.4 fL Normal 79.0-98.0 [facility] Comment on above: Performed By: #### M DIFF, HEMDF, ICA #### [address] [address] [address] [place] Platelet mean volume (Bld) [Entitic vol] 8.3 fL Normal 7.4-10.4 [facility] Comment on above: Performed By: #### M DIFF, HEMDF, ICA #### [address] [address] [address] [place] Platelets (Bld) [#/Vol] 242 10*3/uL Normal 140-440 [facility] Comment on above: Performed By: #### M DIFF, HEMDF, ICA #### [address] [address] [address] [place], [place] RBC (Bld) [#/Vol] 2.77 10*6/uL Low 3.80-5.20 [facility] Comment on above: Performed By: #### M DIFF, HEMDF, ICA #### [address] [address] [address] [place] WBC (Bld) [#/Vol] 10.8 10*3/uL High 3.6-10.7 [facility] Comment on above: Performed By: #### M DIFF, HEMDF, ICA #### [address] [address] [address] [place] Ionized Calciumon 12-19-2019 Interpretation and review of laboratory results Abnormal [place] Ionized Ca 4.20 mg/dL Low 4.3 - 5.2 mg/dL [place] pH (Bld) 7.40 [pH] [place] Test Performed by [facility], [facility] [place], [place] [id number] [place] [address] Magnesiumon 12-19-2019 Magnesium [Mass/Vol] 1.7 mg/dL Normal 1.6-2.3 [facility] Comment on above: Performed By: #### M DIFF, HEMDF, ICA #### [facility] [address] [place], [place] Magnesium [Mass/Vol] 1.7 mg/dL 1.6 - 2 .3 mg/dL [place] Manual Diffon 12-19-2019 Abs Baso Cnt 0.1 10*3/uL Normal 0.0-0.2 [facility] Comment on above: Performed By: #### M DIFF, HEMDF, ICA #### [place] [address] [address] [place] Abs Lymph Cnt 0.8 10*3/uL Low 1.1-4.5 [facility] Comment on above: Performed By: #### M DIFF, HEMDF, ICA #### [place] [address] [address] [place], [place] Abs Monocyte Cnt 0.6 10*3/uL Normal 0.2-1.1 [facility] Comment on above: Performed By: #### M DIFF, HEMDF, ICA #### [address] [place] [address] [address] [place] Abs Neutrophile Cnt 9.0 10*3/uL High 2.2-8.2 [facility] Comment on above: Performed By: #### M DIFF, HEMDF, ICA #### [address] [place] [address] [address] [place] Anisocytosis Ql (Bld) Slight Normal [facility] Comment on above: Performed By: #### M DIFF, HEMDF, ICA #### [place] [address] [address] [place] Bands 2 % Normal 0-3 [facility] Comment on above: Performed By: #### M DIFF, HEMDF, ICA #### [facility] [address] [place], [place] Basophils 1 % Normal 0-2 [facility] Comment on above: Performed By: #### M DIFF, HEMDF, ICA #### [facility] [address] [place], [place] Lymphocytes 7 % Low 20-40 [facility] Comment on above: Performed By: #### M DIFF, HEMDF, ICA #### [facility] [address] [place], [place] Metamyelocytes 2 % Abnormal <1 [facility] Comment on above: Performed By: #### M DIFF, HEMDF, ICA #### [facility] [address] [place] Monocytes 6 % Normal 2-10 [facility] Comment on above: Performed By: #### M DIFF, HEMDF, ICA #### [facility] [address] [place], [place] Myelocytes 1 % Abnormal <1 [facility] Comment on above: Performed By: #### M DIFF, HEMDF, ICA #### [facility] [address] [place] Ovalocytes Slight Normal [facility] Comment on above: Performed By: #### M DIFF, HEMDF, ICA #### [facility] [address] [place] Poikilocytosis Slight Normal [facility] Comment on above: Performed By: #### M DIFF, HEMDF, ICA #### [facility] [address] [place], [place] Polychromasia Slight Normal [facility] Comment on above: Performed By: #### M DIFF, HEMDF, ICA #### [facility] [address] [place], [place] Seg Neutrophils 81 % High 40-80 [facility] Comment on above: Performed By: #### M DIFF, HEMDF, ICA #### [facility] [address] [place], [place] Abs Eosin Cnt 0.0 10*3/uL Normal 0.0-0.5 [facility] Comment on above: Performed By: #### M DIFF, HEMDF, ICA #### [facility] [address] [place], [place] Cells counted 100 Normal [facility] Comment on above: Performed By: #### M DIFF, HEMDF, ICA #### [facility] [address] [place] Eosinophils 0 % Low 1-6 [facility] Comment on above: Performed By: #### M DIFF, HEMDF, ICA #### [place] [address] [address] [place], [place] Manual Differentialon 2019 Absolute Baso # 0.1 10*3/uL 0 - 0.2 10*3/uL [facility] Absolute Eos # 0.0 10*3/uL 0 - 0.5 10*3/uL [facility] [place] Absolute Lymph # 0.8 10*3/uL Low 1.1 - 4.5 10*3/uL [facility] [place] Absolute [place] # 0.6 10*3/uL 0.2 - 1.1 10*3/uL [facility] [place] Absolute Neut # 9.0 10*3/uL High 2.2 - 8.2 10*3/uL [facility] [place] Anisocytosis Ql (Bld) Slight [facility] Bands 2 % 0 - 3 % [facility] Basophils 1 % 0 - 2 % [facility] [place] Eosinophils 0 % Low 1 - 6 % [facility] Interpretation and review of laboratory results Abnormal [facility] Lymphocytes 7 % Low 20 - 40 % [facility] Metamyelocytes 2 % Abnormal <1 [facility] [place] Monocytes 6 % 2 - 10 % [facility] Myelocytes 1 % Abnormal <1 [facility] [place] Ovalocytes Slight [facility] Poikilocytes Slight [facility] [place] Polychromasia Slight [facility] [place] Seg Neutrophils 81 % High 40 - 80 % [place] TOTAL CELLS COUNTED 100 [place] Test Performed by [facility], [facility] [place] [address] [facility], [place] Otheron 12-19-2019 Test Performed by [facility], [facility] [address] [facility] [place] [address] [facility], [place] Phosphoruson 12-19-2019 Phosphate [Mass/Vol] 3.2 mg/dL Normal 2.5-4.5 [facility] Comment on above: Performed By: #### M DIFF, HEMDF, ICA #### [address] [place] [address] [place] [address] Phosphate [Mass/Vol] 3.2 mg/dL 2.5 - 4 .5 mg/dL [place] Basic Metabolic Panelon 12-02 Calcium [Mass/Vol] 8.6 mg/dL Normal 8.4-10.4 [facility] Comment on above: Performed By: #### M DIFF, HEMDF, ICA #### [address] [address] [place] [address] Glucose [Mass/Vol] 90 mg/dL Normal 70-100 [facility] Comment on above: Performed By: #### M DIFF, HEMDF, ICA #### [address] [place] [address] [place] [address] Urea nitrogen [Mass/Vol] 30 mg/dL High 7-20 [facility] Comment on above: Performed By: #### M DIFF, HEMDF, ICA #### [facility] [address] [place] [address] Anion gap [Moles/Vol] 5 Normal [facility] Comment on above: Performed By: #### M DIFF, HEMDF, ICA #### [address] [address] [place] [address] CO2 [Moles/Vol] 25 mmol/L Normal 22-30 [facility] Comment on above: Performed By: #### M DIFF, HEMDF, ICA #### [place] [address] [address] [place] Creatinine [Mass/Vol] 0.85 mg/dL Normal 0.52-1.25 [facility] Comment on above: Performed By: #### M DIFF, HEMDF, ICA #### [place] [address] [address] [place] GFR/1.73 sq M predicted among blacks MDRD (S/P/Bld) [Vol rate/Area] mL/min/{1.73_m2} Normal >60 [facility] Comment on above: Performed By: #### M DIFF, HEMDF, ICA #### [address] [place] [address] [address] [place] GFR/1.73 sq M predicted among non-blacks MDRD (S/P/Bld) [Vol rate/Area] mL/min/{1.73_m2} Normal >60 [facility] Comment on above: Result Comment: Sour ce- MDRD equation with creatinine calibration to IDMS(NKDEP) eGFR not recommended for drug dose adjustment Performed By: #### M DIFF, HEMDF, ICA #### [place] [address] [address] [place] Chloride [Moles/Vol] 110 mmol/L High 98-107 [facility] Comment on above: Performed By: #### M DIFF, HEMDF, ICA #### [place] [address] [address] [place] Potassium [Moles/Vol] 3.4 mmol/L Low 3.5-5.1 [facility] Comment on above: Performed By: #### M DIFF, HEMDF, ICA #### [place] [address] [address] [place] Sodium [Moles/Vol] 140 mmol/L Normal 135-145 [facility] Comment on above: Performed By: #### M DIFF, HEMDF, ICA #### [place] [address] [address] [place] Anion gap [Moles/Vol] 5 mmol/L [facility], [place] Calcium [Mass/Vol] 8.6 mg/dL 8.4 - 10. 4 mg/dL [facility], [place] Chloride [Moles/Vol] 110 mmol/L High 98 - 10 7 mmol/L [place] CO2 [Moles/Vol] 25 mmol/L 22 - 30 mmol/L [place] Creatinine [Mass/Vol] 0.85 mg/dL 0.52 - 1.25 mg/dL [place] EGFR IF NonAfrican [place] >60.0 >60 mL/min [place] Comment on above: Source- MDRD equatio n with creatinine calibration to IDMS(NKDEP) eGFR not recommended for drug dose adjustment GFR/1.73 sq M predicted among blacks MDRD (S/P/Bld) [Vol rate/Area] mL/min/{1.73_m2} >60 mL/min [place] Glucose [Mass/Vol] 90 mg/dL 70 - 100 mg/dL [place] Interpretation and review of laboratory results Abnormal [place] Potassium [Moles/Vol] 3.4 mmol/L Low 3.5 - 5.1 mmol/L [place] Sodium [Moles/Vol] 140 mmol/L 135 - 145 mmol/L [place] Urea nitrogen [Mass/Vol] 30 mg/dL High 7 - 20 mg/dL [place] CBC auto differentialon 12-02 Erythrocyte distribution width (RBC) [Ratio] 17.0 % High 11.5 - 14.5 % [place] Hematocrit (Bld) [Volume fraction] 24.3 % Low 35 - 47 % [place] Hemoglobin (Bld) [Mass/Vol] 8.0 g/dL Low 11.7 - 16 g/dL [place] Interpretation and review of laboratory results Abnormal [place] MCH (RBC) [Entitic mass] 29.8 pg 26 - 34 pg [place] MCHC (RBC) [Mass/Vol] 32.8 % 32 - 36 % [place] MCV (RBC) [Entitic vol] 90.8 fL 79 - 98 fL [place] Platelet mean volume (Bld) [Entitic vol] 8.1 fL 7.4 - 10.4 fL [place], [place] Platelets (Bld) [#/Vol] 265 10*3/uL 140 - 440 10*3/uL [place] RBC (Bld) [#/Vol] 2.68 10*6/uL Low 3.8 - 5.2 10*6/uL [place] WBC (Bld) [#/Vol] 11.1 10*3/uL High 3.6 - 10.7 10*3/uL [place] Test Performed by [facility], [address] [place] [address] [place] Calcium,Ionizedon 12-18-2019 Ionized Ca,Measured 4.30 mg/dL Normal 4.30-5.20 [facility] Comment on above: Performed By: #### M DIFF, HEMDF, ICA #### [address] [address] pH, Ionized Calcium 7.40 Normal 7.31-7.46 [facility] Comment on above: Performed By: #### M DIFF, HEMDF, ICA #### [address] [address] EKG 12 [place] 12-18-2019 [facility] Test Date: 2019-12-18 Pat Name: Quinten Yarbrough Department: [facility] Room: 10 Gender: F [employer] Operator: ТАТЬЯНА : 1970 Requested By: LAQUITA MATTHEWS Order Number: [id number] Reading MD: Hiram Moraes Measurements Intervals [place] Rate: 80 P: 47 SD: 154 QRS: 14 QRSD: 97 T: 42 QT: 498 QTc: 575 Interpretive Statements Sinus rhythm diffuse non specific abnrm T, anterolateral leads Electronically Signed On 12-18-2019 16:07:15 EDT by Hiram Moraes [place], [place], [facility] Incoming Cardiology Results From [facility] - 12/18/2019 4:08 PM EDT [facility] Test Date: 2019-12-18 Pat Name: Quinten Yarbrough Department: [facility] Room: 10 Gender: F [employer] Operator: [place] : 1970 Requested By: LAQUITA MATTHEWS Order Number: [id number] Reading MD: Hiram Moraes Measurements Intervals [place] Rate: 80 P: 47 SD: 154 QRS: 14 QRSD: 97 T: 42 QT: 498 QTc: 575 Interpretive Statements Sinus rhythm diffuse non specific abnrm T, anterolateral leads Electronically Signed On 12-18-2019 16:07:15 EDT by Hiram Moraes [facility], [place] Hemogram w/ Autodiffon 12-17 Erythrocyte distribution width (RBC) [Ratio] 17.0 % High 11.5-14.5 [facility] Comment on above: Performed By: #### M DIFF, HEMDF, ICA #### [address] [address] [place], [place] Hematocrit (Bld) [Volume fraction] 24.3 % Low 35.0-47.0 [facility] Comment on above: Performed By: #### M DIFF, HEMDF, ICA #### [address] [place] [address] [address] [place] Hemoglobin (Bld) [Mass/Vol] 8.0 g/dL Low 11.7-16.0 [facility] Comment on above: Performed By: #### M DIFF, HEMDF, ICA #### [place] [address] [address] [place] MCH (RBC) [Entitic mass] 29.8 pg Normal 26.0-34.0 [facility] Comment on above: Performed By: #### M DIFF, HEMDF, ICA #### [place] [address] [address] [place] MCHC (RBC) [Mass/Vol] 32.8 % Normal 32.0-36.0 [facility] Comment on above: Performed By: #### M DIFF, HEMDF, ICA #### [address] [address] [place] MCV (RBC) [Entitic vol] 90.8 fL Normal 79.0-98.0 [facility] Comment on above: Performed By: #### M DIFF, HEMDF, ICA #### [place] [address] [address] [place] Platelet mean volume (Bld) [Entitic vol] 8.1 fL Normal 7.4-10.4 [facility] Comment on above: Performed By: #### M DIFF, HEMDF, ICA #### [facility] [address] [place], [place] Platelets (Bld) [#/Vol] 265 10*3/uL Normal 140-440 [facility] Comment on above: Performed By: #### M DIFF, HEMDF, ICA #### [place] [address] [address] [place] RBC (Bld) [#/Vol] 2.68 10*6/uL Low 3.80-5.20 [facility] Comment on above: Performed By: #### M DIFF, HEMDF, ICA #### [address] [place] [address] [address] [place] WBC (Bld) [#/Vol] 11.1 10*3/uL High 3.6-10.7 [facility] Comment on above: Performed By: #### M DIFF, HEMDF, ICA #### [address] [place] [address] [address] [place] Ionized Calciumon 12-18-2019 Ionized Ca 4.30 mg/dL 4.3 - 5.2 mg/dL [place] pH (Bld) 7.40 [pH] [place] Test Performed by [facility], [facility] [place] [address] [place] Magnesiumon 12-18-2019 Magnesium [Mass/Vol] 1.9 mg/dL Normal 1.6-2.3 [facility] Comment on above: Performed By: #### M DIFF, HEMDF, ICA #### [place] [address] [address] [place] Magnesium [Mass/Vol] 1.9 mg/dL 1.6 - 2 .3 mg/dL [place] Manual Diffon 12-18-2019 Abs Eosin Cnt 0.1 10*3/uL Normal 0.0-0.5 [facility] Comment on above: Performed By: #### M DIFF, HEMDF, ICA #### [facility] [address] [place], [place] Abs Lymph Cnt 2.1 10*3/uL Normal 1.1-4.5 [facility] Comment on above: Performed By: #### M DIFF, HEMDF, ICA #### [facility] [address] [place], [place] Abs Monocyte Cnt 0.4 10*3/uL Normal 0.2-1.1 [facility] Comment on above: Performed By: #### M DIFF, HEMDF, ICA #### [facility] [address] [place] Abs Neutrophile Cnt 8.2 10*3/uL Normal 2.2-8.2 [facility] Comment on above: Performed By: #### M DIFF, HEMDF, ICA #### [place] [address] [address] [place] Bands 3 % Normal 0-3 [facility] Comment on above: Performed By: #### M DIFF, HEMDF, ICA #### [place] [address] [address] [place] Eosinophils 1 % Normal 1-6 [facility] Comment on above: Performed By: #### M DIFF, HEMDF, ICA #### [place] [address] [address] [place] Lymphocytes 19 % Low 20-40 [facility] Comment on above: Performed By: #### M DIFF, HEMDF, ICA #### [facility] [address] [place] Metamyelocytes 2 % Abnormal <1 [facility] Comment on above: Performed By: #### M DIFF, HEMDF, ICA #### [place] [address] [address] [place] Monocytes 4 % Normal 2-10 [facility] Comment on above: Performed By: #### M DIFF, HEMDF, ICA #### [place] [address] [address] [place] NRBC 1 /100{WBCs} High -1-0 [facility] Comment on above: Result Comment: Newb orn (<60 days) 1-10 Adult <1 Performed By: #### M DIFF, HEMDF, ICA #### [facility] [address] [place], [place] RBC morphology finding Nom (Bld) See Prev Normal [facility] Comment on above: Performed By: #### M DIFF, HEMDF, ICA #### [facility] [address] [place], [place] Seg Neutrophils 71 % Normal 40-80 [facility] Comment on above: Performed By: #### M DIFF, HEMDF, ICA #### [facility] [address] [place] Abs Baso Cnt 0.0 10*3/uL Normal 0.0-0.2 [facility] Comment on above: Performed By: #### M DIFF, HEMDF, ICA #### [address] [place] [address] [address] [place] Basophils 0 % Normal 0-2 [facility] Comment on above: Performed By: #### M DIFF, HEMDF, ICA #### [facility] [address] [place], [place] Cells counted 100 Normal [facility] Comment on above: Performed By: #### M DIFF, HEMDF, ICA #### [address] [place] [address] [address] [place] Manual Differentialon 2019 Absolute Baso # 0.0 10*3/uL 0 - 0.2 10*3/uL [facility] [place] Absolute Eos # 0.1 10*3/uL 0 - 0.5 10*3/uL [facility] [place] Absolute Lymph # 2.1 10*3/uL 1.1 - 4.5 10*3/uL [facility] [place] Absolute [place] # 0.4 10*3/uL 0.2 - 1.1 10*3/uL [facility] [place] Absolute Neut # 8.2 10*3/uL 2.2 - 8.2 10*3/uL [facility] [place] Bands 3 % 0 - 3 % [facility] [place] Basophils 0 % 0 - 2 % [place] Eosinophils 1 % 1 - 6 % [place] Interpretation and review of laboratory results Abnormal [place] Lymphocytes 19 % Low 20 - 40 % [place] Metamyelocytes 2 % Abnormal <1 [place], [place] Monocytes 4 % 2 - 10 % [place] nRBC 1 /100{WBCs} High -1 - 0 /100{WBCs} [place] Comment on above: (<60 days) 1 -10 Adult <1 RBC morphology finding Nom (Bld) See Prev [place] Seg Neutrophils 71 % 40 - 80 % [place] TOTAL CELLS COUNTED 100 [place] Test Performed by [address] [address] [place] Otheron 12-18-2019 Test Performed by [address] [address] [place] Phosphoruson 12-18-2019 Phosphate [Mass/Vol] 3.2 mg/dL Normal 2.5-4.5 [facility] Comment on above: Performed By: #### M DIFF, HEMDF, ICA #### [address] [address] Phosphate [Mass/Vol] 3.2 mg/dL 2.5 - 4 .5 mg/dL [place] APTTon 12-17-2019 aPTT Coag (Bld) [Time] 105.2 s High 20.0-30.5 [facility] Comment on above: Result Comment: NOTE : The therapeutic time for Heparin anticoagulation, based on Xa activity inhibition, is an APTT of 46-80 seconds. Performed By: #### B MP3M, MG3 #### [address] [address] aPTT Coag (Bld) [Time] 105.2 s High 20 - 30.5 s [place] Comment on above: NOTE: The therapeuti c time for Heparin anticoagulation, based on Xa activity inhibition, is an APTT of 46-80 seconds. Interpretation and review of laboratory results Abnormal [place] Test Performed by [facility], [address] [place] [address] [place] Basic Metabolic Panelon 12-02 Anion gap [Moles/Vol] 6 Normal [facility] Comment on above: Performed By: #### B MP3M, MG3 #### [facility] [address] [place] [address] Calcium [Mass/Vol] 8.4 mg/dL Normal 8.4-10.4 [facility] Comment on above: Performed By: #### B MP3M, MG3 #### [facility] [address] [place] [address] CO2 [Moles/Vol] 24 mmol/L Normal 22-30 [facility] Comment on above: Performed By: #### B MP3M, MG3 #### [facility] [address] [place] [address] Glucose [Mass/Vol] 98 mg/dL Normal 70-100 [facility] Comment on above: Performed By: #### B MP3M, MG3 #### [facility] [address] [place] [address] Urea nitrogen [Mass/Vol] 43 mg/dL High 7-20 [facility] Comment on above: Performed By: #### B MP3M, MG3 #### [facility] [address] [place] [address] Creatinine [Mass/Vol] 0.94 mg/dL Normal 0.52-1.25 [facility] Comment on above: Performed By: #### B MP3M, MG3 #### [facility] [address] [place] [address] GFR/1.73 sq M predicted among blacks MDRD (S/P/Bld) [Vol rate/Area] mL/min/{1.73_m2} Normal >60 [facility] Comment on above: Performed By: #### B MP3M, MG3 #### [facility] [address] [place] [address] GFR/1.73 sq M predicted among non-blacks MDRD (S/P/Bld) [Vol rate/Area] mL/min/{1.73_m2} Normal >60 [facility] Comment on above: Result Comment: Sour ce- MDRD equation with creatinine calibration to IDMS(NKDEP) eGFR not recommended for drug dose adjustment Performed By: #### B MP3M, MG3 #### [facility] [address] [place], [place] Chloride [Moles/Vol] 110 mmol/L High 98-107 [facility] Comment on above: Performed By: #### B MP3M, MG3 #### [facility] [address] [place], [place] Potassium [Moles/Vol] 3.3 mmol/L Low 3.5-5.1 [facility] Comment on above: Performed By: #### B MP3M, MG3 #### [facility] [address] [place], [place] Sodium [Moles/Vol] 140 mmol/L Normal 135-145 [facility] Comment on above: Performed By: #### B MP3M, MG3 #### [facility] [address] [place], [place] Calcium [Mass/Vol] 8.5 mg/dL Normal 8.4-10.4 [place] Comment on above: Performed By: #### M DIFF, HEMDF, ICA #### [facility] [address] [place], [place] Glucose [Mass/Vol] 88 mg/dL Normal 70-100 [place] Comment on above: Performed By: #### M DIFF, HEMDF, ICA #### [facility] [address] [place], [place] Urea nitrogen [Mass/Vol] 55 mg/dL High 7-20 [place] Comment on above: Performed By: #### M DIFF, HEMDF, ICA #### [facility] [address] [place], [place] Anion gap [Moles/Vol] 7 Normal [facility] Comment on above: Performed By: #### M DIFF, HEMDF, ICA #### [facility] [address] [place], [place] CO2 [Moles/Vol] 24 mmol/L Normal 22-30 [facility] Comment on above: Performed By: #### M DIFF, HEMDF, ICA #### [facility] [address] [place], [place] Creatinine [Mass/Vol] 1.23 mg/dL Normal 0.52-1.25 [place] Comment on above: Performed By: #### M DIFF, HEMDF, ICA #### [place] [address] [place], [place] GFR/1.73 sq M predicted among blacks MDRD (S/P/Bld) [Vol rate/Area] 56.3 mL/min/{1.73_m2} Normal >60 [place] Comment on above: Performed By: #### M DIFF, HEMDF, ICA #### [place] [address] [place], [place] GFR/1.73 sq M predicted among non-blacks MDRD (S/P/Bld) [Vol rate/Area] 46.5 mL/min/{1.73_m2} Normal >60 [facility] Comment on above: Result Comment: Sour ce- MDRD equation with creatinine calibration to IDMS(NKDEP) eGFR not recommended for drug dose adjustment Performed By: #### M DIFF, HEMDF, ICA #### [place] [address] [place], [place] Chloride [Moles/Vol] 108 mmol/L High 98-107 [place], [place] Comment on above: Performed By: #### M DIFF, HEMDF, ICA #### [place] [address] [place], [place] Potassium [Moles/Vol] 3.3 mmol/L Low 3.5-5.1 [facility] Comment on above: Performed By: #### M DIFF, HEMDF, ICA #### [place] [address] [place], [place] Sodium [Moles/Vol] 139 mmol/L Normal 135-145 [place] Comment on above: Performed By: #### M DIFF, HEMDF, ICA #### [address] [address] Basic Metabolic Panel w/ Ref jonathan to MGon 12-17-2019 Anion gap [Moles/Vol] 6 mmol/L [place] Calcium [Mass/Vol] 8.4 mg/dL 8.4 - 10. 4 mg/dL [place] Chloride [Moles/Vol] 110 mmol/L High 98 - 10 7 mmol/L [place] Creatinine [Mass/Vol] 0.94 mg/dL 0.52 - 1.25 mg/dL [place] EGFR IF NonAfrican Iraqi >60.0 >60 mL/min [place] Comment on above: Source- MDRD equatio n with creatinine calibration to IDMS(NKDEP) eGFR not recommended for drug dose adjustment GFR/1.73 sq M predicted among blacks MDRD (S/P/Bld) [Vol rate/Area] mL/min/{1.73_m2} >60 mL/min [place] Glucose [Mass/Vol] 98 mg/dL 70 - 100 mg/dL [place] Interpretation and review of laboratory results Abnormal [place] Sodium [Moles/Vol] 140 mmol/L 135 - 145 mmol/L [place] Urea nitrogen [Mass/Vol] 43 mg/dL High 7 - 20 mg/dL [place] Test Performed by [facility], [address] [place] [address] [place] Anion gap [Moles/Vol] 7 mmol/L [place] EGFR IF NonAfrican [place] 46.5 mL/min >60 [place] Comment on above: Source- MDRD equatio n with creatinine calibration to IDMS(NKDEP) eGFR not recommended for drug dose adjustment CBC auto differentialon 12-02 Erythrocyte distribution width (RBC) [Ratio] 16.5 % High 11.5 - 14.5 % [place] Hematocrit (Bld) [Volume fraction] 24.5 % Low 35 - 47 % [place] Hemoglobin (Bld) [Mass/Vol] 8.2 g/dL Low 11.7 - 16 g/dL [place] Interpretation and review of laboratory results Abnormal [place] MCH (RBC) [Entitic mass] 30.0 pg 26 - 34 pg [place] MCHC (RBC) [Mass/Vol] 33.6 % 32 - 36 % [place] MCV (RBC) [Entitic vol] 89.3 fL 79 - 98 fL [place] Platelet mean volume (Bld) [Entitic vol] 8.7 fL 7.4 - 10.4 fL [place], [place] Platelets (Bld) [#/Vol] 306 10*3/uL 140 - 440 10*3/uL [place] RBC (Bld) [#/Vol] 2.75 10*6/uL Low 3.8 - 5.2 10*6/uL [place] WBC (Bld) [#/Vol] 13.1 10*3/uL High 3.6 - 10.7 10*3/uL [place] Test Performed by [address] Calcium,Ionizedon 12-17-2019 Ionized Ca,Measured 4.30 mg/dL Normal 4.30-5.20 [facility] Comment on above: Performed By: #### M DIFF, HEMDF, ICA #### [address] pH, Ionized Calcium 7.42 Normal 7.31-7.46 [facility] Comment on above: Performed By: #### M DIFF, HEMDF, ICA #### [address] Hemogram w/ Autodiffon 12-16 Erythrocyte distribution width (RBC) [Ratio] 16.5 % High 11.5-14.5 [facility] Comment on above: Performed By: #### M DIFF, HEMDF, ICA #### [address] [place] Hematocrit (Bld) [Volume fraction] 24.5 % Low 35.0-47.0 [facility] Comment on above: Performed By: #### M DIFF, HEMDF, ICA #### [facility] [address] [place], [place] Hemoglobin (Bld) [Mass/Vol] 8.2 g/dL Low 11.7-16.0 [facility] Comment on above: Performed By: #### M DIFF, HEMDF, ICA #### [place] [address] [place], [place] MCH (RBC) [Entitic mass] 30.0 pg Normal 26.0-34.0 [facility] Comment on above: Performed By: #### M DIFF, HEMDF, ICA #### [place] [address] [place], [place] MCHC (RBC) [Mass/Vol] 33.6 % Normal 32.0-36.0 [facility] Comment on above: Performed By: #### M DIFF, HEMDF, ICA #### [place] [address] [place] MCV (RBC) [Entitic vol] 89.3 fL Normal 79.0-98.0 [facility] Comment on above: Performed By: #### M DIFF, HEMDF, ICA #### [place] [address] [place], [place] Platelet mean volume (Bld) [Entitic vol] 8.7 fL Normal 7.4-10.4 [facility] Comment on above: Performed By: #### M DIFF, HEMDF, ICA #### [place] [address] [place], [place] Platelets (Bld) [#/Vol] 306 10*3/uL Normal 140-440 [facility] Comment on above: Performed By: #### M DIFF, HEMDF, ICA #### [place] [address] [place], [place] RBC (Bld) [#/Vol] 2.75 10*6/uL Low 3.80-5.20 [facility] Comment on above: Performed By: #### M DIFF, HEMDF, ICA #### [place] [address] [place], [place] WBC (Bld) [#/Vol] 13.1 10*3/uL High 3.6-10.7 [facility] Comment on above: Performed By: #### M DIFF, HEMDF, ICA #### [place] [address] [place] [address] Ionized Calciumon 12-17-2019 Ionized Ca 4.30 mg/dL 4.3 - 5.2 mg/dL [place] pH (Bld) 7.42 [pH] [place] Test Performed by [address] [address] [place] Magnesiumon 12-17-2019 Magnesium [Mass/Vol] 2.1 mg/dL Normal 1.6-2.3 [facility] Comment on above: Performed By: #### B MP3M, MG3 #### [place] [address] [place] Magnesium [Mass/Vol] 2.1 mg/dL 1.6 - 2 .3 mg/dL [place] Test Performed by [address] [address] [place] Magnesium [Mass/Vol] 1.8 mg/dL Normal 1.6-2.3 [place] Comment on above: Performed By: #### M DIFF, HEMDF, ICA #### [place] [address] [place] [address] Manual Diffon 12-17-2019 Abs Lymph Cnt 2.4 10*3/uL Normal 1.1-4.5 [facility] Comment on above: Performed By: #### M DIFF, HEMDF, ICA #### [place] [address] [place] [address] Abs Monocyte Cnt 0.3 10*3/uL Normal 0.2-1.1 [facility] Comment on above: Performed By: #### M DIFF, HEMDF, ICA #### [facility] [address] [place], [place] Abs Neutrophile Cnt 10.1 10*3/uL High 2.2-8.2 [facility] Comment on above: Performed By: #### M DIFF, HEMDF, ICA #### [place] [address] [place], [place] Bands 2 % Normal 0-3 [facility] Comment on above: Performed By: #### M DIFF, HEMDF, ICA #### [place] [address] [place], [place] Lymphocytes 18 % Low 20-40 [facility] Comment on above: Performed By: #### M DIFF, HEMDF, ICA #### [place] [address] [place] Metamyelocytes 3 % Abnormal <1 [facility] Comment on above: Performed By: #### M DIFF, HEMDF, ICA #### [place] [address] [place], [place] Monocytes 2 % Normal 2-10 [facility] Comment on above: Performed By: #### M DIFF, HEMDF, ICA #### [place] [address] [place], [place] RBC morphology finding Nom (Bld) See Prev Normal [facility] Comment on above: Performed By: #### M DIFF, HEMDF, ICA #### [place] [address] [place], [place] Seg Neutrophils 75 % Normal 40-80 [facility] Comment on above: Performed By: #### M DIFF, HEMDF, ICA #### [place] [address] [place], [place] Abs Baso Cnt 0.0 10*3/uL Normal 0.0-0.2 [facility] Comment on above: Performed By: #### M DIFF, HEMDF, ICA #### [place] [address] [place], [place] Abs Eosin Cnt 0.0 10*3/uL Normal 0.0-0.5 [facility] Comment on above: Performed By: #### M DIFF, HEMDF, ICA #### [facility] [address] [place], [place] Basophils 0 % Normal 0-2 [facility] Comment on above: Performed By: #### M DIFF, HEMDF, ICA #### [facility] [address] [place], [place] Cells counted 100 Normal [facility] Comment on above: Performed By: #### M DIFF, HEMDF, ICA #### [facility] [address] [place], [place] Eosinophils 0 % Low 1-6 [facility] Comment on above: Performed By: #### M DIFF, HEMDF, ICA #### [facility] [address] [place], [place] Manual Differentialon 2019 Absolute Baso # 0.0 10*3/uL 0 - 0.2 10*3/uL [facility] Absolute Eos # 0.0 10*3/uL 0 - 0.5 10*3/uL [facility], [place] Absolute Lymph # 2.4 10*3/uL 1.1 - 4.5 10*3/uL [facility], [place] Absolute [place] # 0.3 10*3/uL 0.2 - 1.1 10*3/uL [facility], [place] Absolute Neut # 10.1 10*3/uL High 2.2 - 8.2 10*3/uL [facility] [place], [place] Bands 2 % 0 - 3 % [facility] Basophils 0 % 0 - 2 % [facility] Eosinophils 0 % Low 1 - 6 % [facility] Lymphocytes 18 % Low 20 - 40 % [facility] [place] Metamyelocytes 3 % Abnormal <1 [facility] Monocytes 2 % 2 - 10 % [facility] RBC morphology finding Nom (Bld) See Prev [facility] Seg Neutrophils 75 % 40 - 80 % [facility] [place] TOTAL CELLS COUNTED 100 [facility], [place] Metabolic Panelon 12-17-2019 CO2 [Moles/Vol] 24 mmol/L 22 - 30 mmol/L [place] Potassium [Moles/Vol] 3.3 mmol/L Low 3.5 - 5.1 mmol/L [place] Otheron 12-17-2019 Interpretation and review of laboratory results Abnormal [place] Test Performed by [facility], [facility] [place] [address] [place] Phosphoruson 12-17-2019 Phosphate [Mass/Vol] 3.6 mg/dL Normal 2.5-4.5 [place] Comment on above: Performed By: #### M DIFF, HEMDF, ICA #### [place] [address] [place] [address] APTTon 12-16-2019 aPTT Coag (Bld) [Time] 133.1 s Critically high 20.0-30.5 [facility] Comment on above: Result Comment: repe ated NOTE: The therapeutic time for Heparin anticoagulation, based on Xa activity inhibition, is an APTT of 46-80 seconds. Performed By: #### A PTT #### [place] [address] [place] [address] aPTT Coag (Bld) [Time] 133.1 s Critically high 20 - 30.5 s [place] Comment on above: repeated NOTE: The therapeutic time for Heparin anticoagulation, based on Xa activity inhibition, is an APTT of 46-80 seconds. Interpretation and review of laboratory results Abnormal [place] Test Performed by [facility], [facility] [place] [address] [place] aPTT Coag (Bld) [Time] 42.9 s High 20.0-30.5 [facility] Comment on above: Result Comment: NOTE : The therapeutic time for Heparin anticoagulation, based on Xa activity inhibition, is an APTT of 46-80 seconds. Performed By: #### M DIFF, HEMDF, ICA #### [place] [address] [place] [address] aPTT Coag (Bld) [Time] 42.9 s High 20 - 30.5 s [place] Comment on above: NOTE: The therapeuti c time for Heparin anticoagulation, based on Xa activity inhibition, is an APTT of 46-80 seconds. Interpretation and review of laboratory results Abnormal [place] Test Performed by [address] [address] [place] Basic Metabolic Panelon 12-02 Anion gap [Moles/Vol] 8 Normal [facility] Comment on above: Performed By: #### B MP3M, MG3 #### [address] Creatinine [Mass/Vol] 1.92 mg/dL High 0.52-1.25 [facility] Comment on above: Performed By: #### Amanda MP3M, MG3 #### [address] [address] GFR/1.73 sq M predicted among blacks MDRD (S/P/Bld) [Vol rate/Area] 33.7 mL/min/{1.73_m2} Normal >60 [facility] Comment on above: Performed By: #### Amanda MP3M, MG3 #### [address] GFR/1.73 sq M predicted among non-blacks MDRD (S/P/Bld) [Vol rate/Area] 27.8 mL/min/{1.73_m2} Normal >60 [facility] Comment on above: Result Comment: Sour ce- MDRD equation with creatinine calibration to IDMS(NKDEP) eGFR not recommended for drug dose adjustment Performed By: #### B MP3M, MG3 #### [address] Potassium [Moles/Vol] 3.2 mmol/L Low 3.5-5.1 [facility] Comment on above: Performed By: #### B MP3M, MG3 #### [address] [address] Chloride [Moles/Vol] 105 mmol/L Normal 98-107 [facility] Comment on above: Performed By: #### B MP3M, MG3 #### [facility] [address] [place] [address] Sodium [Moles/Vol] 138 mmol/L Normal 135-145 [facility] Comment on above: Performed By: #### B MP3M, MG3 #### [facility] [address] [place] [address] Calcium [Mass/Vol] 8.6 mg/dL Normal 8.4-10.4 [place] Comment on above: Performed By: #### B MP3M, MG3 #### [place] [place] [address] CO2 [Moles/Vol] 25 mmol/L Normal 22-30 [place] Comment on above: Performed By: #### B MP3M, MG3 #### [address] [place] [place] [address] Glucose [Mass/Vol] 103 mg/dL High 70-100 [place] Comment on above: Performed By: #### B MP3M, MG3 #### [address] [place] [place] [address] Urea nitrogen [Mass/Vol] 69 mg/dL High 7-20 [place] Comment on above: Performed By: #### B MP3M, MG3 #### [facility] [address] [place] [address] Calcium [Mass/Vol] 8.3 mg/dL Low 8.4-10.4 [facility] Comment on above: Performed By: #### M DIFF, HEMDF, ICA #### [facility] [address] [place] [address] Anion gap [Moles/Vol] 11 Normal [facility] Comment on above: Performed By: #### M DIFF, HEMDF, ICA #### [facility] [address] [place] [address] CO2 [Moles/Vol] 23 mmol/L Normal 22-30 [facility] Comment on above: Performed By: #### M DIFF, HEMDF, ICA #### [place] [place] [address] Creatinine [Mass/Vol] 2.86 mg/dL High 0.52-1.25 [facility] Comment on above: Performed By: #### M DIFF, HEMDF, ICA #### [facility] [address] [place] [address] GFR/1.73 sq M predicted among blacks MDRD (S/P/Bld) [Vol rate/Area] 21.3 mL/min/{1.73_m2} Normal >60 [facility] Comment on above: Performed By: #### M DIFF, HEMDF, ICA #### [facility] [address] [place] [address] GFR/1.73 sq M predicted among non-blacks MDRD (S/P/Bld) [Vol rate/Area] 17.5 mL/min/{1.73_m2} Normal >60 [facility] Comment on above: Result Comment: Sour ce- MDRD equation with creatinine calibration to IDMS(NKDEP) eGFR not recommended for drug dose adjustment Performed By: #### M DIFF, HEMDF, ICA #### [place] [place] [address] Glucose [Mass/Vol] 106 mg/dL High 70-100 [facility] Comment on above: Performed By: #### M DIFF, HEMDF, ICA #### [facility] [address] [place] [address] Urea nitrogen [Mass/Vol] 76 mg/dL High 7-20 [facility] Comment on above: Performed By: #### M DIFF, HEMDF, ICA #### [facility] [address] [place] [address] Potassium [Moles/Vol] 3.0 mmol/L Low 3.5-5.1 [facility] Comment on above: Performed By: #### M DIFF, HEMDF, ICA #### [facility] [address] [place] [address] Sodium [Moles/Vol] 138 mmol/L Normal 135-145 [facility] Comment on above: Performed By: #### M DIFF, HEMDF, ICA #### [facility] [address] [place] [address] Chloride [Moles/Vol] 103 mmol/L Normal 98-107 [facility] Comment on above: Performed By: #### M DIFF, HEMDF, ICA #### [address] [address] [place] [address] Basic Metabolic Panel w/ Ref jonathan to MGon 12-16-2019 Anion gap [Moles/Vol] 8 mmol/L [facility] [employer] Chloride [Moles/Vol] 105 mmol/L 98 - 10 7 mmol/L [facility], [place] Creatinine [Mass/Vol] 1.92 mg/dL High 0.52 - 1.25 mg/dL [facility], [place] EGFR IF NonAfrican [place] 27.8 mL/min >60 [facility] Comment on above: Source- MDRD equatio n with creatinine calibration to IDMS(NKDEP) eGFR not recommended for drug dose adjustment GFR/1.73 sq M predicted among blacks MDRD (S/P/Bld) [Vol rate/Area] 33.7 mL/min/{1.73_m2} >60 [facility] Interpretation and review of laboratory results Abnormal [facility] [place] Potassium [Moles/Vol] 3.2 mmol/L Low 3.5 - 5.1 mmol/L [facility] [place], [place] Sodium [Moles/Vol] 138 mmol/L 135 - 145 mmol/L [facility] [place] Test Performed by [facility] [employer] [facility], [address] [place] [address] [facility], [place] Anion gap [Moles/Vol] 11 mmol/L [place] [employer] Calcium [Mass/Vol] 8.3 mg/dL Low 8.4 - 10. 4 mg/dL [facility] [place] Chloride [Moles/Vol] 103 mmol/L 98 - 10 7 mmol/L [facility] [place] CO2 [Moles/Vol] 23 mmol/L 22 - 30 mmol/L [facility] [place] Creatinine [Mass/Vol] 2.86 mg/dL High 0.52 - 1.25 mg/dL [facility] [place] EGFR IF NonAfrican [place] 17.5 mL/min >60 [place] Comment on above: Source- MDRD equatio n with creatinine calibration to IDMS(NKDEP) eGFR not recommended for drug dose adjustment GFR/1.73 sq M predicted among blacks MDRD (S/P/Bld) [Vol rate/Area] 21.3 mL/min/{1.73_m2} >60 [place] Glucose [Mass/Vol] 106 mg/dL High 70 - 100 mg/dL [place] Potassium [Moles/Vol] 3.0 mmol/L Low 3.5 - 5.1 mmol/L [place] Sodium [Moles/Vol] 138 mmol/L 135 - 145 mmol/L [place] Urea nitrogen [Mass/Vol] 76 mg/dL High 7 - 20 mg/dL [place] CBCon 12-16-2019 Erythrocyte distribution width (RBC) [Ratio] 16.5 % High 11.5 - 14.5 % [place] Hematocrit (Bld) [Volume fraction] 25.0 % Low 35 - 47 % [place] Hemoglobin (Bld) [Mass/Vol] 8.3 g/dL Low 11.7 - 16 g/dL [place] Interpretation and review of laboratory results Abnormal [place] MCH (RBC) [Entitic mass] 29.4 pg 26 - 34 pg [place] MCHC (RBC) [Mass/Vol] 33.2 % 32 - 36 % [place] MCV (RBC) [Entitic vol] 88.5 fL 79 - 98 fL [place] Platelet mean volume (Bld) [Entitic vol] 8.6 fL 7.4 - 10.4 fL [place], [place] Platelets (Bld) [#/Vol] 309 10*3/uL 140 - 440 10*3/uL [place] RBC (Bld) [#/Vol] 2.82 10*6/uL Low 3.8 - 5.2 10*6/uL [place] WBC (Bld) [#/Vol] 12.9 10*3/uL High 3.6 - 10.7 10*3/uL [place] Test Performed by [facility], [address] [place] [address] [place] CBC auto differentialon 12-02 Erythrocyte distribution width (RBC) [Ratio] 17.1 % High 11.5 - 14.5 % [place] Hematocrit (Bld) [Volume fraction] 26.2 % Low 35 - 47 % [place] Hemoglobin (Bld) [Mass/Vol] 8.7 g/dL Low 11.7 - 16 g/dL [place] MCH (RBC) [Entitic mass] 29.4 pg 26 - 34 pg [place] MCHC (RBC) [Mass/Vol] 33.2 % 32 - 36 % [place] MCV (RBC) [Entitic vol] 88.6 fL 79 - 98 fL [place] Platelet mean volume (Bld) [Entitic vol] 8.8 fL 7.4 - 10.4 fL [place] Platelets (Bld) [#/Vol] 349 10*3/uL 140 - 440 10*3/uL [place] RBC (Bld) [#/Vol] 2.96 10*6/uL Low 3.8 - 5.2 10*6/uL [place] WBC (Bld) [#/Vol] 13.4 10*3/uL High 3.6 - 10.7 10*3/uL [place] CR Chest Portableon 12-16-19 20 CR Chest Portable Patient Name: QUINTEN YARBROUGH Diagnostic Radiology Exam Date/Time 12/16/2019 11:05:09 EDT Exam CR Chest Portable Ordering Physician MD BG, JERRI Accession Number [id number] CPT4 Codes 23846 () Reason For Exam vascular congestion? consolidation? Report CHEST: CLINICAL INDICATION: Dyspnea TECHNIQUE: AP portable chest COMPARISON: 12/14/2019 FINDINGS: Stable right IJ central venous catheter. The cardiomediastinal silhouette appears unchanged from the prior exam. The lungs are clear. There is no sizable pleural effusion. Degenerative change of the thoracic spine is noted. IMPRESSION: No acute process. Report Dictated on Final Dictated: 12/16/2019 11:02 am Dictating Physician: MD HENDRICKSON NICHOLAS Signed Date and Time: 12/16/2019 11:03 am Signed by: MD HENDRICKSON NICHOLAS Transcribed Date and Time: 12/16/2019 11:02 Normal [facility] CR Femur 2+ Views Lefton CR Femur 2+ Views Left Patient Name: QUINTEN YARBROUGH Diagnostic Radiology Exam Date/Time 12/16/2019 20:39:30 EDT Exam CR Femur 2+ Views Left n Ordering Physician MD HOFFMANN ALEX Accession Number [id number] CPT4 Codes 73256 () Reason For Exam left thigh pain Report LEFT FEMUR 2 VIEWS CLINICAL INDICATION: left thigh pain TECHNIQUE: Frontal and lateral views of the left femur, excluding left hip joint. COMPARISON: None. FINDINGS: Patient's body habitus limits evaluation somewhat. No apparent fracture or dislocation. Soft tissues grossly unremarkable. IMPRESSION: 1. No acute osseous abnormality. Report Dictated on Workstation: [id number] Final Dictated: 12/16/2019 9:04 pm Dictating Physician: MD HUMPHREYS WENDELL Signed Date and Time: 12/16/2019 9:06 pm Signed by: MD HUMPHREYS WENDELL Transcribed Date and Time: 12/16/2019 9:04 Normal [facility] CR Hip w/ Pelvis 2 or 3 View s Lefton 12-16-2019 CR Hip w/ Pelvis 2 or 3 Views Left Patient Name: QUINTEN YARBROUGH Diagnostic Radiology Exam Date/Time 12/16/2019 13:58:14 EDT Exam CR Hip w/ Pelvis 2 or 3 Views Left n Ordering Physician MD PEDERSON ERINN Accession Number [id number] CPT4 Codes 80110 () Reason For Exam Hx. osteoarthritis,worse racheal pain radiating to groin. Report LEFT HIP CLINICAL INDICATION: Left hip pain A single AP view of the pelvis followed by AP and lateral views of the left hip were obtained. COMPARISON: None FINDINGS: No fracture or dislocation of the pelvis or left hip is identified. The left hip joint space is relatively well-preserved. The sacroiliac joints appear grossly unremarkable. No lytic or blastic bony lesions are seen. IMPRESSION: No fracture or dislocation of the pelvis or left hip. No significant degenerative changes are identified. Report Dictated on Final Dictated: 12/16/2019 2:33 pm Dictating Physician: MD NAQVI JONATHAN R Signed Date and Time: 12/16/2019 2:33 pm Signed by: MD NAQVI JONATHAN R Transcribed Date and Time: 12/16/2019 2:33 Normal [facility] Calcium,Ionizedon 12-16-2019 Ionized Ca,Measured 3.80 mg/dL Low 4.30-5.20 [facility] Comment on above: Performed By: #### Amanda MP3M, MG3 #### [address] [address] pH, Ionized Calcium 7.44 Normal 7.31-7.46 [facility] Comment on above: Performed By: #### Amanda MP3M, MG3 #### [address] [address] ECHO Complete 2D W Doppler W Coloron 12-16-2019 Kevin, [facility] Incoming Cardiology Results From Merge/Cailin - 12/16/2019 10:46 AM EDT TRANSTHORACIC ECHOCARDIOGRAM PATIENT: Quinten Yarbrough STUDY DATE: 12/16/2019 : 1970 AGE: 49 HT/WT: 165.1 cm (65 173.7 kg in) (382.2 lb) GENDER: F BP: 119 / 67 LOCATION: [facility] PATIENT Inpatient [facility] STATUS: *ORDERING PHYSICIAN: * Yadira Dias *READING PHYSICIAN: * David, YonnyRECREATION ADVISER: * Petra Gonzalez [facility] INDICATIONS: Edema. CONCLUSIONS SUMMARY: 1. Findings suggest pulmonary hypertension and secondary RV pressure overload load. 2. Right ventricle: Mildly dilated, normal systolic function. Estimated PA systolic pressure 51 mmHg, RA pressure 15 mmHg. 3. Ventricular septum: There is mild systolic flattening, RV pressure overload pattern. 4. Left ventricle: Normal size and wall thickness. Systolic function is normal by visual assessment. LVEF 60%. STUDY DATA: Complete transthoracic echocardiogram. Procedure: Image quality was suboptimal. The study was technically limited due to restricted patient mobility, body habitus, respiratory interference, and patient unable to be in left lateral position, so test was done supine. PATIENT DECLINED DEFINITY. M-mode, complete 2D, complete spectral Doppler, and color flow Doppler images were acquired and archived for permanent storage and are available for subsequent review. Study status: Routine. Patient status: Inpatient. ECG RHYTHM: NSR FINDINGS LEFT VENTRICLE: Not well visualized. The cavity size is normal. Wall thickness is normal. Systolic function is normal by visual assessment. The estimated ejection fraction is 60%. There are no regional wall motion abnormalities. Unable to assess LV diastolic function due to suboptimal technical data RIGHT VENTRICLE: The cavity size is mildly dilated. Systolic function is normal. Right ventricular systolic pressure is increased. VENTRICULAR SEPTUM: There is mild systolic flattening, RV pressure overload pattern. LEFT ATRIUM: The atrium is normal in size. RIGHT ATRIUM: The atrium is mildly dilated. ATRIAL SEPTUM: Color Doppler shows no shunt. MITRAL VALVE: Structurally normal valve. Leaflet separation is normal. Doppler: Transvalvular velocity is within the normal range. There is no evidence for stenosis. There is no regurgitation. The peak diastolic gradient is 2 mm Hg. AORTIC VALVE: Not well visualized. Structurally normal valve. Trileaflet. Doppler: There is no regurgitation. Dimensionless index: 0.72. The valve area by the velocity-time integral method is 2.5 cm^2. The valve area index by the velocity-time integral method is 1 cm^2/m^2. The mean systolic gradient is 5 mm Hg. The peak systolic gradient is 13 mm Hg. The peak systolic velocity is 1.8 m/sec. TRICUSPID VALVE: Structurally normal valve. Doppler: There is mild, 1+ regurgitation. PULMONIC VALVE: Structurally normal valve. Doppler: There is trivial, less than 1+ regurgitation. AORTA: The aorta is normal. PERICARDIUM: There is no pericardial effusion. SYSTEMIC VEINS: Inferior vena cava: The IVC is dilated and plethoric, without inspiratory collapse. Measurements Value Reference Aortic root ID 2.4 cm <4.6 Aortic root ID, STJ, ED (L) 1.7 cm 2.0 - 3.2 Aortic root ID/bsa, STJ, ED (L) 0.7 cm/m^2 1.1 - 1.9 Value Reference Ascending aorta ID 2.6 cm 1.9 - 3.5 Ascending aorta ID/bsa, A-P 1.0 cm/m^2 1.0 - 2.2 Ascending aorta ID, A-P, S 2.6 cm Ascending aorta ID/bsa, A-P, S 1.0 cm/m^2 Left ventricle Value Reference LV ID, ED (H) 5.4 cm 3.8 - 5.2 LV ID, ES 2.9 cm 2.2 - 3.5 LV ID/bsa, ED (L) 2.1 cm/m^2 2.3 - 3.1 LV ID/bsa, ES (L) 1.1 cm/m^2 1.3 - 2.1 LV PW thickness, ED (H) 1.0 cm 0.6 - 0.9 LV PW/LV ID ratio, ED 0.18 LV wall mass (H) 214 g 66 - 150 LV wall mass/bsa 82 g/m^2 44 - 88 LV ejection fraction, 2-p 60 % 54 - 74 LV E/e', lateral 4.7 LV E/e', medial 6.3 LV E/e', average 5.4 Ventricular septum Value Reference IVS thickness, ED (H) 1.1 cm 0.6 - 0.9 LVOT Value Reference LVOT ID, A-P 2.1 cm LVOT mean velocity, S 0.8 m/sec LVOT peak gradient, S 8 mm Hg Stroke volume (SV), LVOT DP 85 ml Stroke index (SV/bsa), LVOT DP 33 ml/m^2 Aortic valve Value Reference Aortic valve peak velocity, S 1.8 m/sec Aortic valve mean velocity, S 1 m/sec Aortic mean gradient, S 5 mm Hg Aortic peak gradient, S 13 mm Hg DI 0.72 Aortic valve area, VTI 2.5 cm^2 Aortic valve area/bsa, VTI 1 cm^2/m^2 Left atrium Value Reference LA volume/bsa, ES, 2-p 18 ml/m^2 16 - 34 Mitral valve Value Reference Mitral E-wave peak velocity 0.8 m/sec Mitral A-wave peak velocity 0.5 m/sec Mitral deceleration time 208 ms Mitral peak gradient, D 2 mm Hg Mitral E/A ratio, peak 1.5 Pulmonary arteries Value Reference PA pressure, S, DP 51 mm Hg Tricuspid valve Value Reference Tricuspid regurg peak velocity (H) 3 m/sec <=2.8 Tricuspid peak RV-RA gradient 36 mm Hg Tricuspid maximal regurg velocity, 3.01 m/sec PISA Right atrium Value Reference RA area, ES, A4C (H) 20 cm^2 10 - 18 Systemic veins Value Reference Estimated RAP 15 mm Hg Right ventricle Value Reference RV ID, minor axis, ED, A4C base (H) 4.3 cm 2.5 - 4.1 RV ID, minor axis, ED, A4C mid 3.4 cm 1.9 - 3.5 TAPSE, 2D (H) 3.2 cm 1.7 - 3.1 RV pressure, S, DP 51 mm Hg RV s', lateral (H) 16.9 cm/sec 6.0 - 13.4 Legend: (L) and (H) dina values outside specified reference range. Electronically signed by Daniella Hernandez 12/16/2019 10:45 Prior Signatures[facility] [place] [place] TRANSTHORACIC ECHOCARDIOGRAM PATIENT: Quinten Yarbrough STUDY DATE: 12/16/2019 : 1970 AGE: 49 HT/WT: 165.1 cm (65 173.7 kg in) (382.2 lb) GENDER: F BP: 119 / 67 LOCATION: [facility] PATIENT Inpatient [facility] STATUS: *ORDERING PHYSICIAN: * Yadira Dias *READING PHYSICIAN: * Yonny HernandezRECREATION ADVISER: * Petra Gonzalez [facility] Daniella INDICATIONS: Edema. CONCLUSIONS SUMMARY: 1. Findings suggest pulmonary hypertension and secondary RV pressure overload load. 2. Right ventricle: Mildly dilated, normal systolic function. Estimated PA systolic pressure 51 mmHg, RA pressure 15 mmHg. 3. Ventricular septum: There is mild systolic flattening, RV pressure overload pattern. 4. Left ventricle: Normal size and wall thickness. Systolic function is normal by visual assessment. LVEF 60%. STUDY DATA: Complete transthoracic echocardiogram. Procedure: Image quality was suboptimal. The study was technically limited due to restricted patient mobility, body habitus, respiratory interference, and patient unable to be in left lateral position, so test was done supine. PATIENT DECLINED DEFINITY. M-mode, complete 2D, complete spectral Doppler, and color flow Doppler images were acquired and archived for permanent storage and are available for subsequent review. Study status: Routine. Patient status: Inpatient. ECG RHYTHM: NSR FINDINGS LEFT VENTRICLE: Not well visualized. The cavity size is normal. Wall thickness is normal. Systolic function is normal by visual assessment. The estimated ejection fraction is 60%. There are no regional wall motion abnormalities. Unable to assess LV diastolic function due to suboptimal technical data RIGHT VENTRICLE: The cavity size is mildly dilated. Systolic function is normal. Right ventricular systolic pressure is increased. VENTRICULAR SEPTUM: There is mild systolic flattening, RV pressure overload pattern. LEFT ATRIUM: The atrium is normal in size. RIGHT ATRIUM: The atrium is mildly dilated. ATRIAL SEPTUM: Color Doppler shows no shunt. MITRAL VALVE: Structurally normal valve. Leaflet separation is normal. Doppler: Transvalvular velocity is within the normal range. There is no evidence for stenosis. There is no regurgitation. The peak diastolic gradient is 2 mm Hg. AORTIC VALVE: Not well visualized. Structurally normal valve. Trileaflet. Doppler: There is no regurgitation. Dimensionless index: 0.72. The valve area by the velocity-time integral method is 2.5 cm^2. The valve area index by the velocity-time integral method is 1 cm^2/m^2. The mean systolic gradient is 5 mm Hg. The peak systolic gradient is 13 mm Hg. The peak systolic velocity is 1.8 m/sec. TRICUSPID VALVE: Structurally normal valve. Doppler: There is mild, 1+ regurgitation. PULMONIC VALVE: Structurally normal valve. Doppler: There is trivial, less than 1+ regurgitation. AORTA: The aorta is normal. PERICARDIUM: There is no pericardial effusion. SYSTEMIC VEINS: Inferior vena cava: The IVC is dilated and plethoric, without inspiratory collapse. Measurements Value Reference Aortic root ID 2.4 cm <4.6 Aortic root ID, STJ, ED (L) 1.7 cm 2.0 - 3.2 Aortic root ID/bsa, STJ, ED (L) 0.7 cm/m^2 1.1 - 1.9 Value Reference Ascending aorta ID 2.6 cm 1.9 - 3.5 Ascending aorta ID/bsa, A-P 1.0 cm/m^2 1.0 - 2.2 Ascending aorta ID, A-P, S 2.6 cm Ascending aorta ID/bsa, A-P, S 1.0 cm/m^2 Left ventricle Value Reference LV ID, ED (H) 5.4 cm 3.8 - 5.2 LV ID, ES 2.9 cm 2.2 - 3.5 LV ID/bsa, ED (L) 2.1 cm/m^2 2.3 - 3.1 LV ID/bsa, ES (L) 1.1 cm/m^2 1.3 - 2.1 LV PW thickness, ED (H) 1.0 cm 0.6 - 0.9 LV PW/LV ID ratio, ED 0.18 LV wall mass (H) 214 g 66 - 150 LV wall mass/bsa 82 g/m^2 44 - 88 LV ejection fraction, 2-p 60 % 54 - 74 LV E/e', lateral 4.7 LV E/e', medial 6.3 LV E/e', average 5.4 Ventricular septum Value Reference IVS thickness, ED (H) 1.1 cm 0.6 - 0.9 LVOT Value Reference LVOT ID, A-P 2.1 cm LVOT mean velocity, S 0.8 m/sec LVOT peak gradient, S 8 mm Hg Stroke volume (SV), LVOT DP 85 ml Stroke index (SV/bsa), LVOT DP 33 ml/m^2 Aortic valve Value Reference Aortic valve peak velocity, S 1.8 m/sec Aortic valve mean velocity, S 1 m/sec Aortic mean gradient, S 5 mm Hg Aortic peak gradient, S 13 mm Hg DI 0.72 Aortic valve area, VTI 2.5 cm^2 Aortic valve area/bsa, VTI 1 cm^2/m^2 Left atrium Value Reference LA volume/bsa, ES, 2-p 18 ml/m^2 16 - 34 Mitral valve Value Reference Mitral E-wave peak velocity 0.8 m/sec Mitral A-wave peak velocity 0.5 m/sec Mitral deceleration time 208 ms Mitral peak gradient, D 2 mm Hg Mitral E/A ratio, peak 1.5 Pulmonary arteries Value Reference PA pressure, S, DP 51 mm Hg Tricuspid valve Value Reference Tricuspid regurg peak velocity (H) 3 m/sec <=2.8 Tricuspid peak RV-RA gradient 36 mm Hg Tricuspid maximal regurg velocity, 3.01 m/sec PISA Right atrium Value Reference RA area, ES, A4C (H) 20 cm^2 10 - 18 Systemic veins Value Reference Estimated RAP 15 mm Hg Right ventricle Value Reference RV ID, minor axis, ED, A4C base (H) 4.3 cm 2.5 - 4.1 RV ID, minor axis, ED, A4C mid 3.4 cm 1.9 - 3.5 TAPSE, 2D (H) 3.2 cm 1.7 - 3.1 RV pressure, S, DP 51 mm Hg RV s', lateral (H) 16.9 cm/sec 6.0 - 13.4 Legend: (L) and (H) dina values outside specified reference range. Electronically signed by Daniella Hernandez 12/16/2019 10:45 Prior Signatures: [facility] [place], [place] Echo Complete w/wo Contrasto n 12-16-2019 Echo Complete w/wo Contrast Patient Name: QUINTEN YARBROUGH Ultrasound Exam Date/Time 12/16/2019 08:41:03 EDT Exam Echo Complete w/wo Contrast Ordering Physician Michael DIAS KAUNG H Accession Number [id number] Reason For Exam edema Report TRANSTHORACIC ECHOCARDIOGRAM PATIENT: Quinten Yarbrough STUDY DATE: 12/16/2019 : 1970 AGE: 49 HT/WT: 165.1 cm (65 173.7 kg in) (382.2 lb) GENDER: F BP: 119 / 67 LOCATION: [facility] PATIENT Inpatient [facility] STATUS: *ORDERING PHYSICIAN: * Yadira Dias *READING PHYSICIAN: Yonny Hernandez, YonnyRECREATION ADVISER: Yonny Gonzalez [facility] INDICATIONS: Edema. CONCLUSIONS SUMMARY: 1. Findings suggest pulmonary hypertension and secondary RV pressure overload load. 2. Right ventricle: Mildly dilated, normal systolic function. Estimated PA systolic pressure 51 mmHg, RA pressure 15 mmHg. 3. Ventricular septum: There is mild systolic flattening, RV pressure overload pattern. 4. Left ventricle: Normal size and wall thickness. Systolic function is normal by visual assessment. LVEF 60%. STUDY DATA: Complete transthoracic echocardiogram. Procedure: Image quality was suboptimal. The study was technically limited due to restricted patient mobility, body habitus, respiratory interference, and patient unable to be in left lateral position, so test was done supine. PATIENT DECLINED DEFINITY. M-mode, complete 2D, complete spectral Doppler, and color flow Doppler images were acquired and archived for permanent storage and are available for subsequent review. Study status: Routine. Patient status: Inpatient. ECG RHYTHM: NSR FINDINGS LEFT VENTRICLE: Not well visualized. The cavity size is normal. Wall thickness is normal. Systolic function is normal by visual assessment. The estimated ejection fraction is 60%. There are no regional wall motion abnormalities. Unable to assess LV diastolic function due to suboptimal technical data RIGHT VENTRICLE: The cavity size is mildly dilated. Systolic function is normal. Right ventricular systolic pressure is increased. VENTRICULAR SEPTUM: There is mild systolic flattening, RV pressure overload pattern. LEFT ATRIUM: The atrium is normal in size. RIGHT ATRIUM: The atrium is mildly dilated. ATRIAL SEPTUM: Color Doppler shows no shunt. MITRAL VALVE: Structurally normal valve. Leaflet separation is normal. Doppler: Transvalvular velocity is within the normal range. There is no evidence for stenosis. There is no regurgitation. The peak diastolic gradient is 2 mm Hg. AORTIC VALVE: Not well visualized. Structurally normal valve. Trileaflet. Doppler: There is no regurgitation. Dimensionless index: 0.72. The valve area by the velocity-time integral method is 2.5 cm^2. The valve area index by the velocity-time integral method is 1 cm^2/m^2. The mean systolic gradient is 5 mm Hg. The peak systolic gradient is 13 mm Hg. The peak systolic velocity is 1.8 m/sec. TRICUSPID VALVE: Structurally normal valve. Doppler: There is mild, 1+ regurgitation. PULMONIC VALVE: Structurally normal valve. Doppler: There is trivial, less than 1+ regurgitation. AORTA: The aorta is normal. PERICARDIUM: There is no pericardial effusion. SYSTEMIC VEINS: Inferior vena cava: The IVC is dilated and plethoric, without inspiratory collapse. Measurements Value Reference Aortic root ID 2.4 cm <4.6 Aortic root ID, STJ, ED (L) 1.7 cm 2.0 - 3.2 Aortic root ID/bsa, STJ, ED (L) 0.7 cm/m^2 1.1 - 1.9 Value Reference Ascending aorta ID 2.6 cm 1.9 - 3.5 Ascending aorta ID/bsa, A-P 1.0 cm/m^2 1.0 - 2.2 Ascending aorta ID, A-P, S 2.6 cm Ascending aorta ID/bsa, A-P, S 1.0 cm/m^2 Left ventricle Value Reference LV ID, ED (H) 5.4 cm 3.8 - 5.2 LV ID, ES 2.9 cm 2.2 - 3.5 LV ID/bsa, ED (L) 2.1 cm/m^2 2.3 - 3.1 LV ID/bsa, ES (L) 1.1 cm/m^2 1.3 - 2.1 LV PW thickness, ED (H) 1.0 cm 0.6 - 0.9 LV PW/LV ID ratio, ED 0.18 LV wall mass (H) 214 g 66 - 150 LV wall mass/bsa 82 g/m^2 44 - 88 LV ejection fraction, 2-p 60 % 54 - 74 LV E/e', lateral 4.7 LV E/e', medial 6.3 LV E/e', average 5.4 Ventricular septum Value Reference IVS thickness, ED (H) 1.1 cm 0.6 - 0.9 LVOT Value Reference LVOT ID, A-P 2.1 cm LVOT mean velocity, S 0.8 m/sec LVOT peak gradient, S 8 mm Hg Stroke volume (SV), LVOT DP 85 ml Stroke index (SV/bsa), LVOT DP 33 ml/m^2 Aortic valve Value Reference Aortic valve peak velocity, S 1.8 m/sec Aortic valve mean velocity, S 1 m/sec Aortic mean gradient, S 5 mm Hg Aortic peak gradient, S 13 mm Hg DI 0.72 Aortic valve area, VTI 2.5 cm^2 Aortic valve area/bsa, VTI 1 cm^2/m^2 Left atrium Value Reference LA volume/bsa, ES, 2-p 18 ml/m^2 16 - 34 Mitral valve Value Reference Mitral E-wave peak velocity 0.8 m/sec Mitral A-wave peak velocity 0.5 m/sec Mitral deceleration time 208 ms Mitral peak gradient, D 2 mm Hg Mitral E/A ratio, peak 1.5 Pulmonary arteries Value Reference PA pressure, S, DP 51 mm Hg Tricuspid valve Value Reference Tricuspid regurg peak velocity (H) 3 m/sec <=2.8 Tricuspid peak RV-RA gradient 36 mm Hg Tricuspid maximal regurg velocity, 3.01 m/sec PISA Right atrium Value Reference RA area, ES, A4C (H) 20 cm^2 10 - 18 Systemic veins Value Reference Estimated RAP 15 mm Hg Right ventricle Value Reference RV ID, minor axis, ED, A4C base (H) 4.3 cm 2.5 - 4.1 RV ID, minor axis, ED, A4C mid 3.4 cm 1.9 - 3.5 TAPSE, 2D (H) 3.2 cm 1.7 - 3.1 RV pressure, S, DP 51 mm Hg RV s', lateral (H) 16.9 cm/sec 6.0 - 13.4 Legend: (L) and (H) dina values outside specified reference range. Electronically signed by Daniella Hernandez 12/16/2019 10:45 Prior Signatures: Final Dictated: 12/16/2019 10:46 am Dictating Physician: MD HERNANDEZ WISSAM Signed Date and Time: 12/16/2019 10:45 am Signed by: MD HERNANDEZ WISSAM Normal [facility] Hemogramon 12-16-2019 Erythrocyte distribution width (RBC) [Ratio] 16.5 % High 11.5-14.5 [facility] Comment on above: Performed By: #### M DIFF, HEMDF, ICA #### [facility] [address] [place] [address] Hematocrit (Bld) [Volume fraction] 25.0 % Low 35.0-47.0 [facility] Comment on above: Performed By: #### Anupam DIFF, HEMDF, ICA #### [facility] [address] [place] [address] Hemoglobin (Bld) [Mass/Vol] 8.3 g/dL Low 11.7-16.0 [facility] Comment on above: Performed By: #### M DIFF, HEMDF, ICA #### [facility] [address] [place] [address] MCH (RBC) [Entitic mass] 29.4 pg Normal 26.0-34.0 [facility] Comment on above: Performed By: #### M DIFF, HEMDF, ICA #### [facility] [address] [place] [address] MCHC (RBC) [Mass/Vol] 33.2 % Normal 32.0-36.0 [facility] Comment on above: Performed By: #### M DIFF, HEMDF, ICA #### [place] [address] [address] [place], [place] MCV (RBC) [Entitic vol] 88.5 fL Normal 79.0-98.0 [facility] Comment on above: Performed By: #### M DIFF, HEMDF, ICA #### [place] [address] [address] [place], [place] Platelet mean volume (Bld) [Entitic vol] 8.6 fL Normal 7.4-10.4 [facility] Comment on above: Performed By: #### M DIFF, HEMDF, ICA #### [place] [address] [address] [place], [place] Platelets (Bld) [#/Vol] 309 10*3/uL Normal 140-440 [facility] Comment on above: Performed By: #### M DIFF, HEMDF, ICA #### [place] [address] [address] [place], [place] RBC (Bld) [#/Vol] 2.82 10*6/uL Low 3.80-5.20 [facility] Comment on above: Performed By: #### M DIFF, HEMDF, ICA #### [place] [address] [address] [place], [place] WBC (Bld) [#/Vol] 12.9 10*3/uL High 3.6-10.7 [facility] Comment on above: Performed By: #### M DIFF, HEMDF, ICA #### [place] [address] [address] [place], [place] Hemogram w/ Autodiffon 12-15 Erythrocyte distribution width (RBC) [Ratio] 17.1 % High 11.5-14.5 [facility] Comment on above: Performed By: #### B MP3Anupam MG3 #### [place] [address] [address] [place], [place] Hematocrit (Bld) [Volume fraction] 26.2 % Low 35.0-47.0 [facility] Comment on above: Performed By: #### B MP3M MG3 #### [place] [address] [address] [place], [place] Hemoglobin (Bld) [Mass/Vol] 8.7 g/dL Low 11.7-16.0 [facility] Comment on above: Performed By: #### Amanda VÁSQUEZ3M, MG3 #### [facility] [address] [place], [place] MCH (RBC) [Entitic mass] 29.4 pg Normal 26.0-34.0 [facility] Comment on above: Performed By: #### Amanda VÁSQUEZ3M, MG3 #### [place] [address] [address] [place], [place] MCHC (RBC) [Mass/Vol] 33.2 % Normal 32.0-36.0 [facility] Comment on above: Performed By: #### Amanda VÁSQUEZ3M, MG3 #### [place] [address] [address] [place], [place] MCV (RBC) [Entitic vol] 88.6 fL Normal 79.0-98.0 [facility] Comment on above: Performed By: #### Amanda MP3M, MG3 #### [place] [address] [address] [place], [place] Platelet mean volume (Bld) [Entitic vol] 8.8 fL Normal 7.4-10.4 [facility] Comment on above: Performed By: #### Amanda MP3M, MG3 #### [place] [address] [address] [place], [place] Platelets (Bld) [#/Vol] 349 10*3/uL Normal 140-440 [facility] Comment on above: Performed By: #### Amanda MP3M, MG3 #### [place] [address] [address] [place], [place] RBC (Bld) [#/Vol] 2.96 10*6/uL Low 3.80-5.20 [facility] Comment on above: Performed By: #### Amanda MP3M, MG3 #### [place] [address] [address] [place], [place] WBC (Bld) [#/Vol] 13.4 10*3/uL High 3.6-10.7 [facility] Comment on above: Performed By: #### B MP3M, MG3 #### [facility] [address] [place], [place] Hepatic Functionon 0 ALT [Catalytic activity/Vol] 12 U/L Normal 0-34 [facility] Comment on above: Result Comment: The ALT test is performed by an updated assay method. Please note that the reference intervals have been changed and are now sex specific. Performed By: #### M DIFF, HEMDF, ICA #### [facility] [address] [place], [place] ALP [Catalytic activity/Vol] 96 U/L Normal 38-126 [facility] Comment on above: Performed By: #### M DIFF, HEMDF, ICA #### [facility] [address] [place], [place] AST [Catalytic activity/Vol] 24 U/L Normal 15-46 [facility] Comment on above: Performed By: #### M DIFF, HEMDF, ICA #### [facility] [address] [place], [place] Bilirubin [Mass/Vol] 0.4 mg/dL Normal 0.2-1.3 [facility] Comment on above: Performed By: #### M DIFF, HEMDF, ICA #### [facility] [address] [place], [place] Bilirubin.direct [Mass/Vol] 0.0 mg/dL Normal 0.0-0.3 [facility] Comment on above: Performed By: #### M DIFF, HEMDF, ICA #### [facility] [address] [place], [place] Protein [Mass/Vol] 5.8 g/dL Low 6.3-8.2 [facility] Comment on above: Performed By: #### M DIFF, HEMDF, ICA #### [facility] [address] [place], [place] Albumin [Mass/Vol] 2.9 g/dL Low 3.5-5.0 [facility] Comment on above: Performed By: #### M DIFF, HEMDF, ICA #### [address] [address] Hepatic Function Panelon Albumin [Mass/Vol] 2.9 g/dL Low 3.5 - 5 g/dL [place], [place] ALP [Catalytic activity/Vol] 96 U/L 38 - 126 U/L [place], [place] ALT [Catalytic activity/Vol] 12 U/L 0 - 34 U/L [place], [place] Comment on above: The ALT test is perf ormed by an updated assay method. Please note that the reference intervals have been changed and are now sex specific. AST [Catalytic activity/Vol] 24 U/L 15 - 46 U/L [place] Bilirubin Ql (U) 0.4 mg/dL 0.2 - 1.3 mg/dL [place] Bilirubin.direct [Mass/Vol] 0.0 mg/dL 0 - 0.3 mg/dL [place] Protein [Mass/Vol] 5.8 g/dL Low 6.3 - 8.2 g/dL [place] Ionized Calciumon 12-16-2019 Interpretation and review of laboratory results Abnormal [place] Ionized Ca 3.80 mg/dL Low 4.3 - 5.2 mg/dL [place] pH (Bld) 7.44 [pH] [place] Test Performed by [facility], [address] [place] [address] [place], [place] Magnesiumon 12-16-2019 Magnesium [Mass/Vol] 1.9 mg/dL Normal 1.6-2.3 [facility] Comment on above: Performed By: #### B MP3M, MG3 #### [address] [address] Magnesium [Mass/Vol] 1.9 mg/dL 1.6 - 2 .3 mg/dL [place] Test Performed by [facility], [address] [place] [address] [place] Magnesium [Mass/Vol] 2.0 mg/dL Normal 1.6-2.3 [facility] Comment on above: Performed By: #### M G3, PHOS3, BMP3M, LFT3 #### [place] [address] [address] [place], [place] Magnesium [Mass/Vol] 2.0 mg/dL 1.6 - 2 .3 mg/dL [facility] [place], [place] Manual Diffon 12-16-2019 Abs Eosin Cnt 0.1 10*3/uL Normal 0.0-0.5 [facility] Comment on above: Performed By: #### B MP3M, MG3 #### [place] [address] [address] [place], [place] Abs Lymph Cnt 2.1 10*3/uL Normal 1.1-4.5 [facility] Comment on above: Performed By: #### Amanda MP3M, MG3 #### [place] [address] [address] [place], [place] Abs Monocyte Cnt 0.9 10*3/uL Normal 0.2-1.1 [facility] Comment on above: Performed By: #### Amanda MP3M, MG3 #### [place] [address] [address] [place], [place] Abs Neutrophile Cnt 9.5 10*3/uL High 2.2-8.2 [facility] Comment on above: Performed By: #### Amanda MP3M, MG3 #### [place] [address] [address] [place], [place] Anisocytosis Ql (Bld) Slight Normal [facility] Comment on above: Performed By: #### Amanda MP3M, MG3 #### [place] [address] [address] [place], [place] Bands 4 % High 0-3 [facility] Comment on above: Performed By: #### Amanda MP3M, MG3 #### [place] [address] [address] [place], [place] Eosinophils 1 % Normal 1-6 [facility] Comment on above: Performed By: #### Amanda MP3M, MG3 #### [place] [address] [address] [place], [place] Hypochromia Slight Normal [facility] Comment on above: Performed By: #### B MP3M, MG3 #### [facility] [address] [place], [place] Lymphocytes 16 % Low 20-40 [facility] Comment on above: Performed By: #### B MP3M, MG3 #### [facility] [address] [place], [place] Metamyelocytes 5 % Abnormal <1 [facility] Comment on above: Performed By: #### B MP3M, MG3 #### [facility] [address] [place], [place] Microcytosis Slight Normal [facility] Comment on above: Performed By: #### B MP3M, MG3 #### [facility] [address] [place], [place] Monocytes 7 % Normal 2-10 [facility] Comment on above: Performed By: #### B MP3M, MG3 #### [facility] [address] [place], [place] RBC morphology finding Nom (Bld) ABNORMAL Normal [facility] Comment on above: Performed By: #### B MP3M, MG3 #### [facility] [address] [place], [place] Seg Neutrophils 67 % Normal 40-80 [facility] Comment on above: Performed By: #### B MP3M, MG3 #### [facility] [address] [place], [place] Abs Baso Cnt 0.0 10*3/uL Normal 0.0-0.2 [facility] Comment on above: Performed By: #### B MP3M, MG3 #### [facility] [address] [place] Basophils 0 % Normal 0-2 [facility] Comment on above: Performed By: #### B MP3M, MG3 #### [facility] [address] [place], [place] Cells counted 100 Normal [facility] Comment on above: Performed By: #### B MP3M, MG3 #### [address] Manual Differentialon 2019 Absolute Baso # 0.0 10*3/uL 0 - 0.2 10*3/uL [facility] [place] Absolute Eos # 0.1 10*3/uL 0 - 0.5 10*3/uL [facility] [place] Absolute Lymph # 2.1 10*3/uL 1.1 - 4.5 10*3/uL [facility] [place] Absolute [place] # 0.9 10*3/uL 0.2 - 1.1 10*3/uL [facility] [place] Absolute Neut # 9.5 10*3/uL High 2.2 - 8.2 10*3/uL [facility] [place] Anisocytosis Ql (Bld) Slight [facility] [place] Bands 4 % High 0 - 3 % [facility] Basophils 0 % 0 - 2 % [facility] [place] Eosinophils 1 % 1 - 6 % [facility] [place] Hypochromia Slight [facility] [place] Interpretation and review of laboratory results Abnormal [facility] [place] Lymphocytes 16 % Low 20 - 40 % [facility] [place] Metamyelocytes 5 % Abnormal <1 [facility] [place] Microcytosis Slight [facility] [place] Monocytes 7 % 2 - 10 % [facility] [place] RBC morphology finding Nom (Bld) ABNORMAL [facility] [place], [place] Seg Neutrophils 67 % 40 - 80 % [facility] [place] TOTAL CELLS COUNTED 100 [facility] [place] Test Performed by [facility] [address] [address] [facility] [place], [place] Otheron 12-16-2019 Interpretation and review of laboratory results Abnormal [facility], [place] Test Performed by [facility] [address] [address] [facility] Phosphoruson 12-16-2019 Phosphate [Mass/Vol] 5.2 mg/dL High 2.5-4.[address] [facility] Comment on above: Performed By: #### M DIFF, HEMDF, ICA #### [address] [address] Phosphate [Mass/Vol] 5.2 mg/dL High 2.5 - 4 .5 mg/dL [place] XR CHEST PORTABLEon 12-16-19 Kevin, [facility] Incoming Radiology Results From [facility] - 12/16/2019 11:05 AM EDT Patient Name: QUINTEN YARBROUGH ---Diagnostic Radiology--- Exam Date/Time 12/16/2019 11:05:09 EDT Exam CR Chest Portable Ordering Physician MD BG, JERRI Accession Number [id number] CPT4 Codes 11763 () Reason For Exam vascular congestion? consolidation? Report CHEST: CLINICAL INDICATION: Dyspnea TECHNIQUE: AP portable chest COMPARISON: 12/14/2019 FINDINGS: Stable right IJ central venous catheter. The cardiomediastinal silhouette appears unchanged from the prior exam. The lungs are clear. There is no sizable pleural effusion. Degenerative change of the thoracic spine is noted. IMPRESSION: No acute process. Report Dictated on --- Final --- Dictated: 12/16/2019 11:02 am Dictating Physician: MD HENDRICKSON NICHOLAS Signed Date and Time: 12/16/2019 11:03 am Signed by: MD HENDRICKSON NICHOLAS Transcribed Date and Time: 12/16/2019 11:02 [place] Patient Name: QUINTEN YARBROUGH ---Diagnostic Radiology--- Exam Date/Time 12/16/2019 11:05:09 EDT Exam CR Chest Portable Ordering Physician MD BG, JERRI Accession Number [id number] CPT4 Codes 66689 () Reason For Exam vascular congestion? consolidation? Report CHEST: CLINICAL INDICATION: Dyspnea TECHNIQUE: AP portable chest COMPARISON: 12/14/2019 FINDINGS: Stable right IJ central venous catheter. The cardiomediastinal silhouette appears unchanged from the prior exam. The lungs are clear. There is no sizable pleural effusion. Degenerative change of the thoracic spine is noted. IMPRESSION: No acute process. Report Dictated on --- Final --- Dictated: 12/16/2019 11:02 am Dictating Physician: MD HENDRICKSON NICHOLAS Signed Date and Time: 12/16/2019 11:03 am Signed by: MD HENDRICKSON NICHOLAS Transcribed Date and Time: 12/16/2019 11:02 [place] XR FEMUR LEFT (MIN 2 VIEWS)o n 12-16-2019 [facility] Results From [facility] - 12/16/2019 9:07 PM EDT Patient Name: QUINTEN YARBROUGH ---Diagnostic Radiology--- Exam Date/Time 12/16/2019 20:39:30 EDT Exam CR Femur 2+ Views Left n Ordering Physician MD HOFFMANN ALEX Accession Number [id number] CPT4 Codes 80116 () Reason For Exam left thigh pain Report LEFT FEMUR 2 VIEWS CLINICAL INDICATION: left thigh pain TECHNIQUE: Frontal and lateral views of the left femur, excluding left hip joint. COMPARISON: None. FINDINGS: Patient's body habitus limits evaluation somewhat. No apparent fracture or dislocation. Soft tissues grossly unremarkable. IMPRESSION: 1. No acute osseous abnormality. Report Dictated on Workstation: [id number] --- Final --- Dictated: 12/16/2019 9:04 pm Dictating Physician: MD HUMPHREYS WENDELL Signed Date and Time: 12/16/2019 9:06 pm Signed by: MD HUMPHREYS WENDELL Transcribed Date and Time: 12/16/2019 9:04 [place] Patient Name: QUINTEN YARBROUGH ---Diagnostic Radiology--- Exam Date/Time 12/16/2019 20:39:30 EDT Exam CR Femur 2+ Views Left n Ordering Physician MD HOFFMANN ALEX Accession Number [id number] CPT4 Codes 06664 () Reason For Exam left thigh pain Report LEFT FEMUR 2 VIEWS CLINICAL INDICATION: left thigh pain TECHNIQUE: Frontal and lateral views of the left femur, excluding left hip joint. COMPARISON: None. FINDINGS: Patient's body habitus limits evaluation somewhat. No apparent fracture or dislocation. Soft tissues grossly unremarkable. IMPRESSION: 1. No acute osseous abnormality. Report Dictated on Workstation: [id number] --- Final --- Dictated: 12/16/2019 9:04 pm Dictating Physician: MD HUMPHREYS WENDELL Signed Date and Time: 12/16/2019 9:06 pm Signed by: MD HUMPHREYS WENDELL Transcribed Date and Time: 12/16/2019 9:04 [facility] [place] XR HIP LEFT (2-3 VIEWS)on Patient Name: QUINTEN YARBROUGH ---Diagnostic Radiology--- Exam Date/Time 12/16/2019 13:58:14 EDT Exam CR Hip w/ Pelvis 2 or 3 Views Left n Ordering Physician MD PEDERSON ERINN Accession Number [id number] CPT4 Codes 38172 () Reason For Exam Hx. osteoarthritis,worse racheal pain radiating to groin. Report LEFT HIP CLINICAL INDICATION: Left hip pain A single AP view of the pelvis followed by AP and lateral views of the left hip were obtained. COMPARISON: None FINDINGS: No fracture or dislocation of the pelvis or left hip is identified. The left hip joint space is relatively well-preserved. The sacroiliac joints appear grossly unremarkable. No lytic or blastic bony lesions are seen. IMPRESSION: No fracture or dislocation of the pelvis or left hip. No significant degenerative changes are identified. Report Dictated on --- Final --- Dictated: 12/16/2019 2:33 pm Dictating Physician: MD NAQVI JONATHAN R Signed Date and Time: 12/16/2019 2:33 pm Signed by: MD NAQVI JONATHAN R Transcribed Date and Time: 12/16/2019 2:33 [place] [facility], [facility] Incoming Radiology Results From [facility] - 12/16/2019 2:35 PM EDT Patient Name: QUINTEN YARBROUGH ---Diagnostic Radiology--- Exam Date/Time 12/16/2019 13:58:14 EDT Exam CR Hip w/ Pelvis 2 or 3 Views Left n Ordering Physician MD PEDERSON ERINN Accession Number [id number] CPT4 Codes 13048 () Reason For Exam Hx. osteoarthritis,worse racheal pain radiating to groin. Report LEFT HIP CLINICAL INDICATION: Left hip pain A single AP view of the pelvis followed by AP and lateral views of the left hip were obtained. COMPARISON: None FINDINGS: No fracture or dislocation of the pelvis or left hip is identified. The left hip joint space is relatively well-preserved. The sacroiliac joints appear grossly unremarkable. No lytic or blastic bony lesions are seen. IMPRESSION: No fracture or dislocation of the pelvis or left hip. No significant degenerative changes are identified. Report Dictated on --- Final --- Dictated: 12/16/2019 2:33 pm Dictating Physician: MD NAQVI JONATHAN R Signed Date and Time: 12/16/2019 2:33 pm Signed by: MD NAQVI JONATHAN R Transcribed Date and Time: 12/16/2019 2:33 [place] BLOOD GAS, ARTERIALon 2019 Base Excess, Arterial -3.9 mmol/L Low -3 - 3 mmol/L [place] HCO3, Arterial 19.2 mmol/L Low 21 - 25 mmol/L [place] Hemoglobin (Bld) [Mass/Vol] 10.8 g/dL ScreenOnly [place] Interpretation and review of laboratory results Abnormal [place] Oxygen saturation in Blood 98.4 % 95 - 100 % [place] pCO2, Arterial 28.6 mm[Hg] Low 35 - 45 mm[Hg] [place] pH, Arterial 7.445 [place], [place] pO2, Arterial 132.9 mm[Hg] High 80 - 100 mm[Hg] [place] Sodium [Moles/Vol] No data [place] TCO2, Arterial 20.1 mmol/L Low 23 - 27 mmol/L [place] Test Performed by [facility], [address] [place] [id number] [place] [address] Basic Metabolic Panel w/ Ref jonathan to MGon 12-15-2019 Anion gap [Moles/Vol] 11 mmol/L [place] Calcium [Mass/Vol] 8.1 mg/dL Low 8.4 - 10. 4 mg/dL [place] Chloride [Moles/Vol] 101 mmol/L 98 - 10 7 mmol/L [place] CO2 [Moles/Vol] 24 mmol/L 22 - 30 mmol/L [place] Creatinine [Mass/Vol] 3.87 mg/dL High 0.52 - 1.25 mg/dL [place] EGFR IF NonAfrican [place] 12.4 mL/min >60 [place] Comment on above: Source- MDRD equatio n with creatinine calibration to IDMS(NKDEP) eGFR not recommended for drug dose adjustment GFR/1.73 sq M predicted among blacks MDRD (S/P/Bld) [Vol rate/Area] 15.0 mL/min/{1.73_m2} >60 [place] Glucose [Mass/Vol] 132 mg/dL High 70 - 100 mg/dL [place] Potassium [Moles/Vol] 2.7 mmol/L Low 3.5 - 5.1 mmol/L [place] Sodium [Moles/Vol] 137 mmol/L 135 - 145 mmol/L [place] Urea nitrogen [Mass/Vol] 85 mg/dL High 7 - 20 mg/dL [place] Anion gap [Moles/Vol] 13 mmol/L [place] Calcium [Mass/Vol] 8.0 mg/dL Low 8.4 - 10. 4 mg/dL [place] Chloride [Moles/Vol] 102 mmol/L 98 - 10 7 mmol/L [place] CO2 [Moles/Vol] 22 mmol/L 22 - 30 mmol/L [place] Creatinine [Mass/Vol] 4.29 mg/dL High 0.52 - 1.25 mg/dL [place] EGFR IF NonAfrican [place] 11.0 mL/min >60 [place] Comment on above: Source- MDRD equatio n with creatinine calibration to IDMS(NKDEP) eGFR not recommended for drug dose adjustment GFR/1.73 sq M predicted among blacks MDRD (S/P/Bld) [Vol rate/Area] 13.3 mL/min/{1.73_m2} >60 [place] Glucose [Mass/Vol] 178 mg/dL High 70 - 100 mg/dL [place] Potassium [Moles/Vol] 2.9 mmol/L Low 3.5 - 5.1 mmol/L [place] Sodium [Moles/Vol] 137 mmol/L 135 - 145 mmol/L [place] Urea nitrogen [Mass/Vol] 85 mg/dL High 7 - 20 mg/dL [place] Anion gap [Moles/Vol] 15 mmol/L [place] Calcium [Mass/Vol] 7.9 mg/dL Low 8.4 - 10. 4 mg/dL [place] Chloride [Moles/Vol] 102 mmol/L 98 - 10 7 mmol/L [place] CO2 [Moles/Vol] 19 mmol/L Low 22 - 30 mmol/L [place] Creatinine [Mass/Vol] 4.69 mg/dL High 0.52 - 1.25 mg/dL [place] EGFR IF NonAfrican [place] 9.9 mL/min >60 [place] Comment on above: Source- MDRD equatio n with creatinine calibration to IDMS(NKDEP) eGFR not recommended for drug dose adjustment GFR/1.73 sq M predicted among blacks MDRD (S/P/Bld) [Vol rate/Area] 12.0 mL/min/{1.73_m2} >60 [place] Glucose [Mass/Vol] 200 mg/dL High 70 - 100 mg/dL [place] Potassium [Moles/Vol] 3.0 mmol/L Low 3.5 - 5.1 mmol/L [place] Sodium [Moles/Vol] 136 mmol/L 135 - 145 mmol/L [place] Urea nitrogen [Mass/Vol] 85 mg/dL High 7 - 20 mg/dL [place] Anion gap [Moles/Vol] 18 mmol/L [place] Calcium [Mass/Vol] 7.7 mg/dL Low 8.4 - 10. 4 mg/dL [place] Chloride [Moles/Vol] 101 mmol/L 98 - 10 7 mmol/L [place] CO2 [Moles/Vol] 16 mmol/L Low 22 - 30 mmol/L [place] Creatinine [Mass/Vol] 5.4 mg/dL High 0.52 - 1.25 mg/dL [place] EGFR IF NonAfrican [place] 8.4 mL/min >60 [place] Comment on above: Source- MDRD equatio n with creatinine calibration to IDMS(NKDEP) eGFR not recommended for drug dose adjustment GFR/1.73 sq M predicted among blacks MDRD (S/P/Bld) [Vol rate/Area] 10.2 mL/min/{1.73_m2} >60 [place] Glucose [Mass/Vol] 181 mg/dL High 70 - 100 mg/dL [place] Potassium [Moles/Vol] 2.8 mmol/L Low 3.5 - 5.1 mmol/L [place] Sodium [Moles/Vol] 135 mmol/L 135 - 145 mmol/L [place] Urea nitrogen [Mass/Vol] 85 mg/dL High 7 - 20 mg/dL [place] CBC auto differentialon 12-02 Erythrocyte distribution width (RBC) [Ratio] 17.0 % High 11.5 - 14.5 % [place] Hematocrit (Bld) [Volume fraction] 29.7 % Low 35 - 47 % [place] Hemoglobin (Bld) [Mass/Vol] 10.2 g/dL Low 11.7 - 16 g/dL [place] Interpretation and review of laboratory results Abnormal [place] MCH (RBC) [Entitic mass] 29.8 pg 26 - 34 pg [place] MCHC (RBC) [Mass/Vol] 34.5 % 32 - 36 % [place] MCV (RBC) [Entitic vol] 86.6 fL 79 - 98 fL [place] Platelet mean volume (Bld) [Entitic vol] 8.9 fL 7.4 - 10.4 fL [place] Platelets (Bld) [#/Vol] 448 10*3/uL High 140 - 440 10*3/uL [place] RBC (Bld) [#/Vol] 3.43 10*6/uL Low 3.8 - 5.2 10*6/uL [place] WBC (Bld) [#/Vol] 17.9 10*3/uL High 3.6 - 10.7 10*3/uL [place] Test Performed by [employer] [facility], [address] [place] [address] [place] EKG 12 Leadon 12-15-2019 Kevin, [facility] Incoming Cardiology Results From [facility] - 12/15/2019 1:44 PM EDT [facility] Test Date: 2019-12-14 Pat Name: Quinten Zenon Department: 1AT3 Room: [facility] Gender: F [employer] Operator: JESS : 1970 Requested By: YADIRA DIAS Order Number: [id number] Reading MD: Dionicio Velazco Measurements Intervals [place] Rate: 78 P: 23 SD: 148 QRS: 0 QRSD: 113 T: 143 QT: 531 QTc: 606 Interpretive Statements NORMAL SINUS RHYTHM PACs Incomplete left bundle branch block Prolonged QT interval Electronically Signed On 12-15-2019 13:42:56 EDT by Dionicio Velazco [place] C4M [facility] Test Date: 2019-12-14 Pat Name: Quinten Zenon Department: 1AT3 Room: [facility] Gender: F [employer] Operator: : 1970 Requested By: YADIRA DIAS Order Number: [id number] Reading MD: Dionicio Velazco Measurements Intervals [place] Rate: 78 P: 23 SD: 148 QRS: 0 QRSD: 113 T: 143 QT: 531 QTc: 606 Interpretive Statements NORMAL SINUS RHYTHM PACs Incomplete left bundle branch block Prolonged QT interval Electronically Signed On 12-15-2019 13:42:56 EDT by Dionicio Velazco [place] Hepatic Function Panelon Albumin [Mass/Vol] 2.9 g/dL Low 3.5 - 5 g/dL [place], [place] ALP [Catalytic activity/Vol] 128 U/L High 38 - 126 U/L [place] ALT [Catalytic activity/Vol] 13 U/L 0 - 34 U/L [place] Comment on above: The ALT test is perf ormed by an updated assay method. Please note that the reference intervals have been changed and are now sex specific. AST [Catalytic activity/Vol] 27 U/L 15 - 46 U/L [place] Bilirubin Ql (U) 0.4 mg/dL 0.2 - 1.3 mg/dL [place] Bilirubin.direct [Mass/Vol] 0.0 mg/dL 0 - 0.3 mg/dL [place] Protein [Mass/Vol] 6.0 g/dL Low 6.3 - 8.2 g/dL [place] Ionized Calciumon 12-15-2019 Interpretation and review of laboratory results Abnormal [place] Ionized Ca 3.60 mg/dL Low 4.3 - 5.2 mg/dL [place] pH (Bld) 7.42 [pH] [place] Test Performed by [address] [address] [place] Magnesiumon 12-15-2019 Magnesium [Mass/Vol] 2.1 mg/dL 1.6 - 2 .3 mg/dL [place] Magnesium [Mass/Vol] 2.1 mg/dL 1.6 - 2 .3 mg/dL [place] Magnesium [Mass/Vol] 2.1 mg/dL 1.6 - 2 .3 mg/dL [place] Magnesium [Mass/Vol] 2.2 mg/dL 1.6 - 2 .3 mg/dL [place] Manual Differentialon 2019 Absolute Baso # 0.0 10*3/uL 0 - 0.2 10*3/uL [place] Absolute Eos # 0.2 10*3/uL 0 - 0.5 10*3/uL [place] Absolute Lymph # 1.6 10*3/uL 1.1 - 4.5 10*3/uL [place] Absolute [place] # 0.2 10*3/uL 0.2 - 1.1 10*3/uL [facility] [place] Absolute Neut # 15.2 10*3/uL High 2.2 - 8.2 10*3/uL [facility] [place] Bands 10 % High 0 - 3 % [facility] [place] Basophils 0 % 0 - 2 % [facility] [place] Eosinophils 1 % 1 - 6 % [facility] [place] Interpretation and review of laboratory results Abnormal [facility] [place] Lymphocytes 9 % Low 20 - 40 % [facility] [place] Metamyelocytes 1 % Abnormal <1 [facility] [place] Monocytes 1 % Low 2 - 10 % [facility] [place] Myelocytes 3 % Abnormal <1 [facility] [place] RBC morphology finding Nom (Bld) See Prev [facility] [place] Seg Neutrophils 75 % 40 - 80 % [facility] [place] TOTAL CELLS COUNTED 100 [facility] [place] Test Performed by [facility], [address] [place] [address] [facility] [place] Osmolality, Urineon 12-15-19 20 Osmolality (U) [Osmolality] 307 mosm/kg 300 - 1000 mosm/kg [facility] [place] Test Performed by [facility], [address] [place] [address] [facility] [place] Otheron 12-15-2019 Interpretation and review of laboratory results Abnormal [facility] [place] Test Performed by [facility], [address] [place] [address] [facility] [place] Interpretation and review of laboratory results Abnormal [facility] [place] Test Performed by [facility], [address] [place] [address] [facility] [place] Interpretation and review of laboratory results Abnormal [facility] [place] Test Performed by [facility], [address] [place] [address] [facility] [place] Interpretation and review of laboratory results Abnormal [facility] [place] Test Performed by [facility], [address] [place] [address] [facility] [place] Phosphoruson 12-15-2019 Phosphate [Mass/Vol] 5.4 mg/dL High 2.5 - 4 .5 mg/dL [facility] Phosphate [Mass/Vol] 5.5 mg/dL High 2.5 - 4 .5 mg/dL [facility] Phosphate [Mass/Vol] 5.8 mg/dL High 2.5 - 4 .5 mg/dL [facility] Phosphate [Mass/Vol] 5.7 mg/dL High 2.5 - 4 .5 mg/dL [facility] URINE DRUG SCREENon 12-15-19 20 Amphetamines, urine Negative [facility] [place] Barbiturates, Ur Negative [facility] [place] Benzodiazepine Ur Qual Negative [facility] [place] Cocaine Metabolites, Ur Negative [facility] [place] Methadone, Urine Negative [facility] [place] Opiates, [facility]rine Negative [facility] [place] Oxycodone Screen, Ur Negative [facility] [place] PCP, Urine Negative [facility] [place] Comment on above: The expected value f or all of the drugs listed above is Negative. The following drugs or drug groups have been screened for by Immunoassay at the following thresholds: Amphetamine class (1000 ng/mL), Barbiturates (200 ng/mL), Benzodiazepines (200 ng/mL), Cocaine (300 ng/mL), Methadone (300 ng/mL), Opiates (300 ng/mL), Oxycodone (100 ng/mL), and PCP (25 ng/mL). NOTE: These results are for medical treatment only. Analysis performed using non-forensic procedures. POSITIVE results are NOT confirmed by a more specific alternative method unless requested. If confirmation is needed, request confirmation under separate order. Test Performed by [facility], [address] [place] [address] [facility] [place] VANCOMYCIN, RANDOMon 020 Vancomycin 11.9 ug/mL Low 15 - 20 ug/mL [place] Comment on above: . VL DUP LOWER EXTREMITY VENOU S BILATERALon 12-15-2019 [facility] Lower Extremity Venous Duplex Report Ordering Physician: Yadira Dias Yardmaster: Megan Miller RVT Interpreting Physician: Arden Underwood Location: [facility] Indications: BLE swelling Conclusions 1. There is no evidence of acute deep or superficial venous thrombosis noted in the right lower extremity. 2. There is no evidence of acute deep or superficial venous thrombosis noted in the left lower extremity. 3. Limited study bilateral due to body habitus. History: Risk factors: Obese. Immobility. Study data: Complete lower extremity venous duplex evaluation. Grayscale 2D imaging, color Doppler imaging, and spectral Doppler analysis. Location: Bedside. Procedure: A vascular evaluation was performed with the patient in the supine position. Images were obtained using a [employer] E9 vascular ultrasound machine. The study was technically limited due to immobility, patient positioning, and obesity. Venous flow and imaging: + +--- +------- +------- + +Location +Overall +Properties +Comments + + +--- +------- +------- + +R CFV +Patent +Normal phasicity; + + + + +spontaneous; normal+ + + + +augmentation; + + + + +compressible + + + +--- +------- +------- + +R +Patent +Compressible + + +saphenofemoral + + + + +junction + + + + + +--- +------- +------- + +R profunda +Patent +Normal phasicity; + + +femoral + +spontaneous; normal+ + + + +augmentation + + + +--- +------- +------- + +R FV - prox. +Patent +Compressible + + + +--- +------- +------- + +R FV - mid +Patent +Normal phasicity; + + + + +spontaneous; normal+ + + + +augmentation; + + + + +compressible + + + +--- +------- +------- + +R FV - distal +Not visualized + +Unable to + + + + +visualize, + + + + +patient with + + + + +morbid obesity. + + +--- +------- +------- + +R popliteal +Not visualized + +Unable to + + + + +evaluate + + + + +popliteal fossa, + + + + +patient unable to+ + + + +move her leg. + + +--- +------- +------- + +R gastrocnemius+Not visualized + + + + +--- +------- +------- + +R PTV +Difficult study+Compressible +Visualized only + + + + +at mid and distal+ + + + +calf. + + +--- +------- +------- + +R peroneal +Not visualized + + + + +--- +------- +------- + +R soleal +Not visualized + + + + +--- +------- +------- + +R GSV +Patent +Compressible + + + +--- +------- +------- + +L CFV +Not visualized + +Unable to + + + + +evaluate left + + + + +groin due to + + + + +patients + + + + +positioning of + + + + +her stomach + + + + +resting on her + + + + +thigh. + + +--- +------- +------- + +L +Not visualized + + + +saphenofemoral + + + + +junction + + + + + +--- +------- +------- + +L profunda +Not visualized + + + +femoral + + + + + +--- +------- +------- + +L FV - prox. +Patent +Normal phasicity +Patent with color+ + +--- +------- +------- + +L FV - mid +Patent +Normal phasicity; + + + + +spontaneous; normal+ + + + +augmentation; + + + + +compressible + + + +--- +------- +------- + +L FV - distal +Not visualized + +Unable to + + + + +visualize due to + + + + +obesity + + +--- +------- +------- + +L popliteal +Not visualized + +Unable to + + + + +evaluate + + + + +popliteal fossa, + + + + +patient unable to+ + + + +move her leg. + + +--- +------- +------- + +L gastrocnemius+Not visualized + + + + +--- +------- +------- + +L PTV +Difficult study+Compressible + + + +--- +------- +------- + +L peroneal +Patent +Compressible + + + +--- +------- +------- + +L soleal +Not visualized + + + + +--- +------- +------- + +L GSV +Patent +Compressible + + + +--- +------- +------- + Prepared and electronically signed by Arden Underwood 12/15/2019 13:56 [facility] [place], [place] [facility] Results From [facility] - 12/15/2019 1:56 PM EDT [facility] Lower Extremity Venous Duplex Report Ordering Physician: Yadira Dias Yardmaster: Megan Miller RVT Interpreting Physician: Arden Underwood Location: [facility] Indications: BLE swelling Conclusions 1. There is no evidence of acute deep or superficial venous thrombosis noted in the right lower extremity. 2. There is no evidence of acute deep or superficial venous thrombosis noted in the left lower extremity. 3. Limited study bilateral due to body habitus. History: Risk factors: Obese. Immobility. Study data: Complete lower extremity venous duplex evaluation. Grayscale 2D imaging, color Doppler imaging, and spectral Doppler analysis. Location: Bedside. Procedure: A vascular evaluation was performed with the patient in the supine position. Images were obtained using a [employer] E9 vascular ultrasound machine. The study was technically limited due to immobility, patient positioning, and obesity. Venous flow and imaging: + +--- +------- +------- + +Location +Overall +Properties +Comments + + +--- +------- +------- + +R CFV +Patent +Normal phasicity; + + + + +spontaneous; normal+ + + + +augmentation; + + + + +compressible + + + +--- +------- +------- + +R +Patent +Compressible + + +saphenofemoral + + + + +junction + + + + + +--- +------- +------- + +R profunda +Patent +Normal phasicity; + + +femoral + +spontaneous; normal+ + + + +augmentation + + + +--- +------- +------- + +R FV - prox. +Patent +Compressible + + + +--- +------- +------- + +R FV - mid +Patent +Normal phasicity; + + + + +spontaneous; normal+ + + + +augmentation; + + + + +compressible + + + +--- +------- +------- + +R FV - distal +Not visualized + +Unable to + + + + +visualize, + + + + +patient with + + + + +morbid obesity. + + +--- +------- +------- + +R popliteal +Not visualized + +Unable to + + + + +evaluate + + + + +popliteal fossa, + + + + +patient unable to+ + + + +move her leg. + + +--- +------- +------- + +R gastrocnemius+Not visualized + + + + +--- +------- +------- + +R PTV +Difficult study+Compressible +Visualized only + + + + +at mid and distal+ + + + +calf. + + +--- +------- +------- + +R peroneal +Not visualized + + + + +--- +------- +------- + +R soleal +Not visualized + + + + +--- +------- +------- + +R GSV +Patent +Compressible + + + +--- +------- +------- + +L CFV +Not visualized + +Unable to + + + + +evaluate left + + + + +groin due to + + + + +patients + + + + +positioning of + + + + +her stomach + + + + +resting on her + + + + +thigh. + + +--- +------- +------- + +L +Not visualized + + + +saphenofemoral + + + + +junction + + + + + +--- +------- +------- + +L profunda +Not visualized + + + +femoral + + + + + +--- +------- +------- + +L FV - prox. +Patent +Normal phasicity +Patent with color+ + +--- +------- +------- + +L FV - mid +Patent +Normal phasicity; + + + + +spontaneous; normal+ + + + +augmentation; + + + + +compressible + + + +--- +------- +------- + +L FV - distal +Not visualized + +Unable to + + + + +visualize due to + + + + +obesity + + +--- +------- +------- + +L popliteal +Not visualized + +Unable to + + + + +evaluate + + + + +popliteal fossa, + + + + +patient unable to+ + + + +move her leg. + + +--- +------- +------- + +L gastrocnemius+Not visualized + + + + +--- +------- +------- + +L PTV +Difficult study+Compressible + + + +--- +------- +------- + +L peroneal +Patent +Compressible + + + +--- +------- +------- + +L soleal +Not visualized + + + + +--- +------- +------- + +L GSV +Patent +Compressible + + + +--- +------- +------- + Prepared and electronically signed by Arden Underwood 12/15/2019 13:56 [place] XR CHEST PORTABLEon 12-15-19 20 [facility] Incoming Radiology Results From [facility] - 12/15/2019 5:54 AM EDT Patient Name: QUINTEN YARBROUGH ---Diagnostic Radiology--- Exam Date/Time 12/14/2019 19:36:05 EDT Exam CR Chest Portable Ordering Physician DO BELLO MICHAEL W Accession Number [id number] CPT4 Codes 93344 () Reason For Exam Right IJ vascular catheter Report CHEST X-RAY AP CLINICAL INDICATION: IJ catheter placement AP radiograph of the chest was obtained. COMPARISON: Earlier on 12/14/2019 FINDINGS: The cardiac silhouette is within normal limits. Satisfactory appearance/location of the right-sided internal jugular line. No focal consolidation or opacification is seen within the lungs. No pleural effusion or pneumothorax is identified. Degenerative changes of the thoracic spine are noted. IMPRESSION: 1. No acute cardiopulmonary process. 2. Satisfactory appearance/location of the right-sided internal jugular line. Report Dictated on --- Final --- Dictated: 12/15/2019 5:51 am Dictating Physician: MD MCMANUS JASON Signed Date and Time: 12/15/2019 5:53 am Signed by: MD MCMANUS JASON Transcribed Date and Time: 12/15/2019 5:51 [place] Patient Name: QUINTEN YARBROUGH ---Diagnostic Radiology--- Exam Date/Time 12/14/2019 19:36:05 EDT Exam CR Chest Portable Ordering Physician DO BELLO MICHAEL W Accession Number [id number] CPT4 Codes 03960 () Reason For Exam Right IJ vascular catheter Report CHEST X-RAY AP CLINICAL INDICATION: IJ catheter placement AP radiograph of the chest was obtained. COMPARISON: Earlier on 12/14/2019 FINDINGS: The cardiac silhouette is within normal limits. Satisfactory appearance/location of the right-sided internal jugular line. No focal consolidation or opacification is seen within the lungs. No pleural effusion or pneumothorax is identified. Degenerative changes of the thoracic spine are noted. IMPRESSION: 1. No acute cardiopulmonary process. 2. Satisfactory appearance/location of the right-sided internal jugular line. Report Dictated on --- Final --- Dictated: 12/15/2019 5:51 am Dictating Physician: MD MCMANUS JASON Signed Date and Time: 12/15/2019 5:53 am Signed by: MD MCMANUS JASON Transcribed Date and Time: 12/15/2019 5:51 [place] Acetaminophen Levelon 2019 Acetaminophen [Mass/Vol] <10.0 10 - 30 ug/mL [place] Test Performed by [employer], [facility] [place] [address] [place] Add On Lab Teston 12-14-2019 Sodium [Moles/Vol] Accepted [place] Comment on above: Specimen available & acceptable for analysis. Test Performed by [employer], [facility] [place] [address] [place] Sodium [Moles/Vol] Accepted [place] Comment on above: Specimen available & acceptable for analysis. Test Performed by [facility], [facility] [place] [address] [place] Sodium [Moles/Vol] Accepted [place] Comment on above: Specimen available & acceptable for analysis. Test Performed by [facility], [facility] [place] [address] [place] Basic Metabolic Panelon 12-02 Anion gap [Moles/Vol] 21 mmol/L [place] Calcium [Mass/Vol] 7.6 mg/dL Low 8.4 - 10. 4 mg/dL [place] Chloride [Moles/Vol] 108 mmol/L High 98 - 10 7 mmol/L [place] CO2 [Moles/Vol] 7 mmol/L Low 22 - 30 mmol/L [place] Creatinine [Mass/Vol] 9.09 mg/dL High 0.52 - 1.25 mg/dL [place] EGFR IF NonAfrican Iraqi 4.6 mL/min >60 [place] Comment on above: Source- MDRD equatio n with creatinine calibration to IDMS(NKDEP) eGFR not recommended for drug dose adjustment GFR/1.73 sq M predicted among blacks MDRD (S/P/Bld) [Vol rate/Area] 5.6 mL/min/{1.73_m2} >60 [place], [place] Glucose [Mass/Vol] 157 mg/dL High 70 - 100 mg/dL [place] Interpretation and review of laboratory results Abnormal [place] Potassium [Moles/Vol] 4.2 mmol/L 3.5 - 5.1 mmol/L [place] Sodium [Moles/Vol] 136 mmol/L 135 - 145 mmol/L [place] Urea nitrogen [Mass/Vol] 138 mg/dL High 7 - 20 mg/dL [place] Test Performed by [facility] [employer] [facility], [facility] [place] [address] [place] Basic Metabolic Panel w/ Ref jonathan to MGon 12-14-2019 Anion gap [Moles/Vol] 21 mmol/L [facility], [place] Calcium [Mass/Vol] 8.1 mg/dL Low 8.4 - 10. 4 mg/dL [place] Chloride [Moles/Vol] 104 mmol/L 98 - 10 7 mmol/L [place] CO2 [Moles/Vol] 12 mmol/L Low 22 - 30 mmol/L [place] Creatinine [Mass/Vol] 5.7 mg/dL High 0.52 - 1.25 mg/dL [place] EGFR IF NonAfrican [place] 7.9 mL/min >60 [place] Comment on above: Source- MDRD equatio n with creatinine calibration to IDMS(NKDEP) eGFR not recommended for drug dose adjustment GFR/1.73 sq M predicted among blacks MDRD (S/P/Bld) [Vol rate/Area] 9.6 mL/min/{1.73_m2} >60 [place], [place] Glucose [Mass/Vol] 140 mg/dL High 70 - 100 mg/dL [place] Potassium [Moles/Vol] 3.3 mmol/L Low 3.5 - 5.1 mmol/L [place] Sodium [Moles/Vol] 138 mmol/L 135 - 145 mmol/L [place] Urea nitrogen [Mass/Vol] 86 mg/dL High 7 - 20 mg/dL [place] Anion gap [Moles/Vol] 21 mmol/L [place] Calcium [Mass/Vol] 7.5 mg/dL Low 8.4 - 10. 4 mg/dL [place] Chloride [Moles/Vol] 107 mmol/L 98 - 10 7 mmol/L [place] CO2 [Moles/Vol] 8 mmol/L Low 22 - 30 mmol/L [place] Creatinine [Mass/Vol] 8.81 mg/dL High 0.52 - 1.25 mg/dL [place] EGFR IF NonAfrican [place] 4.8 mL/min >60 [place] Comment on above: Source- MDRD equatio n with creatinine calibration to IDMS(NKDEP) eGFR not recommended for drug dose adjustment GFR/1.73 sq M predicted among blacks MDRD (S/P/Bld) [Vol rate/Area] 5.8 mL/min/{1.73_m2} >60 [facility], [place] Glucose [Mass/Vol] 169 mg/dL High 70 - 100 mg/dL [facility], [place] Interpretation and review of laboratory results Abnormal [place] Potassium [Moles/Vol] 3.9 mmol/L 3.5 - 5.1 mmol/L [facility], [place] Sodium [Moles/Vol] 137 mmol/L 135 - 145 mmol/L [facility], [place] Urea nitrogen [Mass/Vol] 134 mg/dL High 7 - 20 mg/dL [place] Test Performed by [address] [address] [place] Anion gap [Moles/Vol] 22 mmol/L [place] Calcium [Mass/Vol] 7.6 mg/dL Low 8.4 - 10. 4 mg/dL [place] Chloride [Moles/Vol] 111 mmol/L High 98 - 10 7 mmol/L [facility], [place] CO2 [Moles/Vol] 5 mmol/L Low 22 - 30 mmol/L [place] Creatinine [Mass/Vol] 9.46 mg/dL High 0.52 - 1.25 mg/dL [place] EGFR IF NonAfrican [place] 4.4 mL/min >60 [place] Comment on above: Source- MDRD equatio n with creatinine calibration to IDMS(NKDEP) eGFR not recommended for drug dose adjustment GFR/1.73 sq M predicted among blacks MDRD (S/P/Bld) [Vol rate/Area] 5.3 mL/min/{1.73_m2} >60 [facility] [place], [place] Glucose [Mass/Vol] 95 mg/dL 70 - 100 mg/dL [facility], [place] Interpretation and review of laboratory results Abnormal [place] Potassium [Moles/Vol] 4.4 mmol/L 3.5 - 5.1 mmol/L [place] Sodium [Moles/Vol] 138 mmol/L 135 - 145 mmol/L [place] Urea nitrogen [Mass/Vol] 138 mg/dL High 7 - 20 mg/dL [place] Test Performed by [facility], [address] [place] [address] [place] Blood Gas, Arterialon 2019 Base Excess, Arterial -8.4 mmol/L Low -3 - 3 mmol/L [place] HCO3, Arterial 13.1 mmol/L Low 21 - 25 mmol/L [place] Hemoglobin (Bld) [Mass/Vol] 11.9 g/dL [facility] [place] Interpretation and review of laboratory results Abnormal [place] Oxygen saturation in Blood 99.3 % 95 - 100 % [place] pCO2, Arterial 18.7 mm[Hg] Low 35 - 45 mm[Hg] [place] pH, Arterial 7.464 High [place] pO2, Arterial 215.8 mm[Hg] High 80 - 100 mm[Hg] [place] Sodium [Moles/Vol] 40% [place] TCO2, Arterial 13.7 mmol/L Low 23 - 27 mmol/L [place] Test Performed by [address] [address] [place] CBC auto differentialon 12-02 Erythrocyte distribution width (RBC) [Ratio] 17.9 % High 11.5 - 14.5 % [place] Hematocrit (Bld) [Volume fraction] 32.1 % Low 35 - 47 % [place] Hemoglobin (Bld) [Mass/Vol] 10.5 g/dL Low 11.7 - 16 g/dL [place] MCH (RBC) [Entitic mass] 29.6 pg 26 - 34 pg [place] MCHC (RBC) [Mass/Vol] 32.6 % 32 - 36 % [place] MCV (RBC) [Entitic vol] 90.8 fL 79 - 98 fL [place] Platelet mean volume (Bld) [Entitic vol] 9.7 fL 7.4 - 10.4 fL [place], [place] Platelets (Bld) [#/Vol] 432 10*3/uL 140 - 440 10*3/uL [place] RBC (Bld) [#/Vol] 3.54 10*6/uL Low 3.8 - 5.2 10*6/uL [place] WBC (Bld) [#/Vol] 21.4 10*3/uL High 3.6 - 10.7 10*3/uL [place] CREATININE, RANDOM URINEon 0 12-14-2019 Creatinine (U) [Mass/Vol] 139.5 mg/dL No Range [place] ETHYLENE GLYCOLon 12-14-2019 Ethylene Glycol Lvl NONE DETECTED mg/dL [place], [place] Comment on above: Reporting limit 5 mg/dL Test Performed by [facility] [address] [address] [place] Hepatic Function Panelon Albumin [Mass/Vol] 2.9 g/dL Low 3.5 - 5 g/dL [place], [place] ALP [Catalytic activity/Vol] 124 U/L 38 - 126 U/L [place] ALT [Catalytic activity/Vol] 12 U/L 0 - 34 U/L [place] Comment on above: The ALT test will be performed by an updated assay method starting December 13 at 09:00am. Please note that the reference intervals will be changed to be sex specific. AST [Catalytic activity/Vol] 30 U/L 15 - 46 U/L [place] Bilirubin Ql (U) 0.4 mg/dL 0.2 - 1.3 mg/dL [place] Bilirubin.direct [Mass/Vol] 0.0 mg/dL 0 - 0.3 mg/dL [place] Interpretation and review of laboratory results Abnormal [place] Protein [Mass/Vol] 6.1 g/dL Low 6.3 - 8.2 g/dL [place] Test Performed by [facility], [address] [place] [address] [place] Hepatitis B Surface Antibody on 12-14-2019 HBV surface Ab (S) [Titer] <8.0 m[IU]/mL [place] Comment on above: Interpretation: <8.0 Non-Reactive 8.0-11.9 Equivocal >= 12.0 Ab Detected Hepatitis Panel, Acuteon HAV IgM IA Qn (S) NOT DETECTED Not-Detect ed NA [place] Hep B Core Ab, IgM NOT DETECTED Not-Detec hiram NA [place] Hepatitis B Surface Ag NOT DETECTED Not-Detected NA [place] Hepatitis C Ab NOT DETECTED Not-Detected [place], [place] Comment on above: Patients with DETECT ED Hepatitis C Ab results should have a new specimen submitted for supplemental testing with a Hepatitis C Quantitative RNA assay (viral load), if clinically indicated. Ionized Calciumon 12-14-2019 Ionized Ca 3.60 mg/dL Low 4.3 - 5.2 mg/dL [place] pH (Bld) 7.13 [pH] Low [place] Lactic Acid, Plasmaon 2019 Interpretation and review of laboratory results Abnormal [place] Lactate [Moles/Vol] 0.6 mmol/L Low 0.7 - 2 mmol/L [place] Test Performed by [facility], [address] [place] [address] [place] Legionella Antigen, Urineon 12-14-2019 LEGIONELLA ANTIGEN Legionella antigen NOT DETECTED. [place] Lipaseon 12-14-2019 Lipase [Catalytic activity/Vol] 1120 U/L High 23 - 300 U/L [place] Magnesiumon 12-14-2019 Magnesium [Mass/Vol] 2.3 mg/dL 1.6 - 2 .3 mg/dL [place] Magnesium [Mass/Vol] 2.6 mg/dL High 1.6 - 2 .3 mg/dL [place] Magnesium [Mass/Vol] 2.8 mg/dL High 1.6 - 2 .3 mg/dL [facility] [place], [place] Manual Differentialon 2019 Absolute Baso # 0.0 10*3/uL 0 - 0.2 10*3/uL [facility] Absolute Eos # 0.0 10*3/uL 0 - 0.5 10*3/uL [facility] [place], [place] Absolute Lymph # 1.9 10*3/uL 1.1 - 4.5 10*3/uL [facility] [place] Absolute [place] # 0.0 10*3/uL Low 0.2 - 1.1 10*3/uL [facility] [place] Absolute Neut # 18.4 10*3/uL High 2.2 - 8.2 10*3/uL [facility] [place] Anisocytosis Ql (Bld) SLIGHT [facility] Bands 18 % [facility], [place] Basophils 0 % 0 - 2 % [facility] [place] Cells MODERATE [facility], [place] Comment SLIDE SCANNED [facility] [place] Eosinophils 0 % Low 1 - 6 % [facility], [place] Interpretation and review of laboratory results Abnormal [facility], [place] Lymphocytes 9 % [facility] [place] Metamyelocytes 4 % High 0 - 1 % [facility] Microcytosis SLIGHT [facility] - [place], [place] Monocytes 0 % Low 2 - 10 % [facility] [place] Myelocytes 1.0 % Abnormal <1 [facility] [place] Poikilocytes MODERATE [facility] [place], [place] RBC morphology finding Nom (Bld) ABNORMAL [facility], [place] Seg Neutrophils 68 % [facility], [place] TOTAL CELLS COUNTED 100 [facility], [place] Test Performed by [employer] [address] [facility], [place] Osmolalityon 12-14-2019 Interpretation and review of laboratory results Abnormal [facility], [place] Serum Osmolality 339 mosm/kg High 280 - 300 mosm/kg [facility], [place] Test Performed by [employer] [facility], [address] [place] [address] [facility], [place] Osmolality, Urineon 12-14-19 20 Osmolality (U) [Osmolality] 365 mosm/kg 300 - 1000 mosm/kg [facility] [place] Test Performed by [employer] [facility], [facility] [address] [facility] [place] [address] [facility] Otheron 12-14-2019 Interpretation and review of laboratory results Abnormal [facility] [place] Test Performed by [facility], [address] [place] [address] [facility] Test Performed by [facility], [facility] [place] [place] [address] [facility] Interpretation and review of laboratory results Abnormal [facility] [place] Test Performed by [facility], [facility] [place] [address] [facility] [place] Test Performed by [facility], [facility] [place] [address] Specimen Source Comment:Urine, clean catch [facility] Test Performed by [facility], [facility] [place] [place] [address] [facility] Interpretation and review of laboratory results Abnormal [facility] Test Performed by [facility], [facility] [address] [place] [address] [facility] Interpretation and review of laboratory results Abnormal [facility] Test Performed by [facility], [facility] [place] [address] [facility] POC Arterial Respiratory Zhu el - Rapid Responseon 12-14-2019 Base Excess, Arterial -18.7 mmol/L Low -3 - 3 mmol/ L [facility] HCO3, Arterial 8.2 mmol/L Low 21 - 25 mmol/L [facility] [place] Hematocrit (Bld) [Volume fraction] 30 % Low 38 - 51 % [facility] [place] Comment on above: Performed by CLIA ID : [id number] [facility], [place] Interpretation and review of laboratory results Abnormal [facility] Oxygen saturation in Blood 98.6 % 95 - 100 % [facility] pCO2, Arterial 22.7 mm[Hg] Low 35 - 45 mm[Hg] [facility] pH, Arterial 7.167 Critically low [facility] [place] pO2, Arterial 143.3 mm[Hg] High 80 - 100 mm[Hg] [place] Potassium [Moles/Vol] 4.1 mmol/L 3.5 - 5.1 mmol/L [place] Sodium [Moles/Vol] 138 mmol/L 133 - 145 mmol/L [place] Sodium [Moles/Vol] 4 mmol/L [place] TCO2, Arterial 8.9 mmol/L Low 23 - 27 mmol/L [place] Test Performed by [address] [address] [place] Phosphoruson 12-14-2019 Phosphate [Mass/Vol] 5.7 mg/dL High 2.5 - 4 .5 mg/dL [place] Phosphate [Mass/Vol] 9.9 mg/dL High 2.5 - 4 .5 mg/dL [place] Phosphate [Mass/Vol] 10.7 mg/dL High 2.5 - 4 .5 mg/dL [place] Procalcitoninon 12-14-2019 Interpretation and review of laboratory results Abnormal [place] Procalcitonin 1.15 ng/mL Abnormal <0.10 [place] Sodium [Moles/Vol] See Below [place] Comment on above: PCT <0.50 = Low risk of severe sepsis and/or septic shock. PCT >2.00 = High risk of severe sepsis and/or septic shock. Test Performed by [address] [address] [place] Respiratory Virus PCR Panelo n 12-14-2019 Respiratory Panel PCR NEGATIVE: No targe ts were detected by the [employer] Upper Respiratory Pathogens PCR Panel. PLEASE NOTE: This assay DOES NOT detect SARS-CoV-2/COVID-19. _ The [employer] Upper Respiratory Pathogens PCR Panel can detect the following targets: Adenovirus, Coronavirus 229E, Coronavirus HKU1, Coronavirus NL63, Coronavirus OC43, Human Metapneumovirus, Human Rhinovirus/Enterovir us, Influenza A, Influenza B, Parainfluenza Virus 1, Parainfluenza Virus 2, Parainfluenza Virus 3, Parainfluenza Virus 4, Respiratory Syncytial Virus, Bordetella pertussis, Bordetella parapertussis, Chlamydia pneumoniae, Mycoplasma pneumoniae [place] Test Performed by [facility], [address] [place] [address] Specimen Source Comment:Nasopharynge al [place] STREP PNEUMONIAE ANTIGENon 0 12-14-2019 STREP PNEUMONIAE ANTIGEN, URINE Strep pneumo antigen NOT DETECTED. [place] Sodium, Urine, Randomon 12-02 Sodium (U) [Moles/Vol] 40 mmol/L No Range [place] Troponinon 12-14-2019 Troponin I.cardiac [Mass/Vol] ng/mL 0 - 0.034 ng/mL [place] Comment on above: . US RETROPERITONEAL LIMITEDon 12-14-2019 Patient Name: QUINTEN YARBROUGH ---Ultrasound--- Exam Date/Time 12/14/2019 12:49:15 EDT Exam US Retroperitoneal Limited Ordering Physician Michael DIAS KAUNG H Accession Number [id number] CPT4 Codes 34913 () Reason For Exam COLETTE Report ULTRASOUND RENAL CLINICAL INFORMATION: Acute kidney injury, hypotension Sonogram of the kidneys was performed. Comparison: None Findings: Examination somewhat limited by patient habitus. The renal cortical echogenicity is within normal limits. The right kidney measures 11.6 x 5.6 x 5.0 cm. The left kidney measures 11.3 x 6.1 x 6.0 cm. There are no mass lesions identified. No hydronephrosis or calculus is seen. There are no perinephric fluid collections. Urinary bladder is not visualized. IMPRESSION: No hydronephrosis. Report Dictated on Workstation: [id number] --- Final --- Dictated: 12/14/2019 1:29 pm Dictating Physician: MD FRAZIER BRIAN Signed Date and Time: 12/14/2019 1:30 pm Signed by: MD FRAZIER BRIAN Transcribed Date and Time: 12/14/2019 1:29 [place], [place] Kevin, [facility] Incoming Radiology Results From [facility] - 12/14/2019 1:31 PM EDT Patient Name: QUINTEN YARBROUGH ---Ultrasound--- Exam Date/Time 12/14/2019 12:49:15 EDT Exam US Retroperitoneal Limited Ordering Physician Michael DIAS KAUNG H Accession Number [id number] CPT4 Codes 40939 () Reason For Exam COLETTE Report ULTRASOUND RENAL CLINICAL INFORMATION: Acute kidney injury, hypotension Sonogram of the kidneys was performed. Comparison: None Findings: Examination somewhat limited by patient habitus. The renal cortical echogenicity is within normal limits. The right kidney measures 11.6 x 5.6 x 5.0 cm. The left kidney measures 11.3 x 6.1 x 6.0 cm. There are no mass lesions identified. No hydronephrosis or calculus is seen. There are no perinephric fluid collections. Urinary bladder is not visualized. IMPRESSION: No hydronephrosis. Report Dictated on Workstation: [facility] --- Final --- Dictated: 12/14/2019 1:29 pm Dictating Physician: MD FRAZIER BRIAN Signed Date and Time: 12/14/2019 1:30 pm Signed by: MD FRAZIER BRIAN Transcribed Date and Time: 12/14/2019 1:29 [facility], [place] Urinalysison 12-14-2019 AMORPHOUS CRYSTAL Few Negative /[HPF] [facility] Appearance (U) Turbid Clear NA [place], [place] Bacteria, UA Moderate Negative /[HPF] [facility] Bilirubin Urine Negative Negative mg/dL [place] Color (U) Light-Yellow Lt. Yellow NA [facility], [place] Glucose, Ur Normal Normal (<70) mg/dL [facility] Hyaline Casts, UA 51-100 Negative /[LPF] [facility] Ketones Ql (U) Negative Negative mg/dL [facility] LEUKOCYTES, UA 500 Negative Celsa/uL [place] Mucous Threads Few Negative /[LPF] [facility] Nitrite, Urine Negative Negative NA [facility], [place] Occult Blood,Urine 0.5 mg/dL Negative [place] pH (U) 5.5 [pH] [place] Protein (U) [Mass/Vol] 50 mg/dL Negative [place] RBC (U) [#/Vol] /uL 0 - 2 /[HPF] [place], [place] Specific [place], Urine 1.019 [place], [place] Squam Epithel, UA 3-5 3 - 5 /[HPF] [place] Urobilinogen, Urine Normal Normal ( 0-1) mg/dL [place] WBC, UA 51-100 0 - 5 /[HPF] [place], [place] Test Performed by [facility], [address] [place] [address] [place] Urine Drug Screenon 12-14-19 20 Amphetamines, urine Negative [place], [place] Barbiturates, Ur Negative [facility], [place] Benzodiazepine Ur Qual Negative [place] Cocaine Metabolites, Ur Negative [place] Methadone, Urine Negative [facility], [place] Opiates, Urine Negative [place] Oxycodone Screen, Ur Negative [place], [place] PCP, Urine Negative [place] Comment on above: The expected value f or all of the drugs listed above is Negative. The following drugs or drug groups have been screened for by Immunoassay at the following thresholds: Amphetamine class (1000 ng/mL), Barbiturates (200 ng/mL), Benzodiazepines (200 ng/mL), Cocaine (300 ng/mL), Methadone (300 ng/mL), Opiates (300 ng/mL), Oxycodone (100 ng/mL), and PCP (25 ng/mL). NOTE: These results are for medical treatment only. Analysis performed using non-forensic procedures. POSITIVE results are NOT confirmed by a more specific alternative method unless requested. If confirmation is needed, request confirmation under separate order. Test Performed by [facility], [address] [place] [address] [place] VOLATILE PANEL, SERUMon 12-02 Acetone, Serum Quant 5.1 mg/dL 0 - 20 mg/dL [place], [place] Comment on above: Toxic>20 Reporting Limit 5 mg/dL NOTE:These results are for medical treatment only. Analysis performed using non-forensic procedures. Ethanol [Mass/Vol] NONE DETECTED [place] Comment on above: Reporting limit 0.01g/dL NOTE:These results are for medical treatment only. Analysis performed using non-forensic procedures. Isopropanol NONE DETECTED mg/dL [place] Comment on above: Toxic>150 Reporting Limit 5 mg/dL NOTE:These results are for medical treatment only. Analysis performed using non-forensic procedures. Sodium [Moles/Vol] NONE DETECTED [place] Comment on above: Toxic >20 mg/dL Reporting Limit 5 mg/dL NOTE:These results are for medical treatment only. Analysis performed using non-forensic procedures. Test Performed by [facility], [address] [place] [address] [place] XR CHEST PORTABLEon 12-14-19 Kevin, [facility] Incoming Radiology [facility] - 12/14/2019 12:15 PM EDT Patient Name: QUINTEN YARBROUGH ---Diagnostic Radiology--- Exam Date/Time 12/14/2019 11:28:41 EDT Exam CR Chest Portable Ordering Physician MD BG, JERRI Accession Number [id number] CPT4 Codes 89287 () Reason For Exam hypoxic respiratory failure Report PORTABLE CHEST Clinical indication: hypoxic respiratory failure Comparison: None. Right internal jugular catheter is noted with the tip projecting in the region of the junction of the internal jugular vein with the innominate vein and vena cava. No pneumothorax is identified. The cardiac silhouette is not enlarged. Lung volumes are very shallow with no definite focal infiltrates noted. There are no pleural effusions. IMPRESSION: Shallow lung volumes with no definite focal infiltrate Report Dictated on --- Final --- Dictated: 12/14/2019 12:13 pm Dictating Physician: MD BOWERS DIANE Signed Date and Time: 12/14/2019 12:14 pm Signed by: MD BOWERS DIANE Transcribed Date and Time: 12/14/2019 12:13 [place] Patient Name: QUINTEN YARBROUGH ---Diagnostic Radiology--- Exam Date/Time 12/14/2019 11:28:41 EDT Exam CR Chest Portable Ordering Physician MD PEDERSON ERINN Accession Number [id number] CPT4 Codes 52642 () Reason For Exam hypoxic respiratory failure Report PORTABLE CHEST Clinical indication: hypoxic respiratory failure Comparison: None. Right internal jugular catheter is noted with the tip projecting in the region of the junction of the internal jugular vein with the innominate vein and vena cava. No pneumothorax is identified. The cardiac silhouette is not enlarged. Lung volumes are very shallow with no definite focal infiltrates noted. There are no pleural effusions. IMPRESSION: Shallow lung volumes with no definite focal infiltrate Report Dictated on --- Final --- Dictated: 12/14/2019 12:13 pm Dictating Physician: MD BOWERS DIANE Signed Date and Time: 12/14/2019 12:14 pm Signed by: MD BOWERS DIANE Transcribed Date and Time: 12/14/2019 12:13 [place] Vital Signs Date Time Vital Sign Value Performing Clinician Facility 12-17-2023 15:01-[address] Cuff Size DR SARAH FANG MD [facility] 12-17-2023 15:01-[address] SARAH FANG MD [facility] 12-17-2023 15:01-[address] SARAH FANG MD [facility] 12-17-2023 15:01-0400 Body temperature 97.88 [degF] DR SARAH FANG MD [facility] 12-17-2023 15:01-0400 Diastolic Blood Pressure Non-Invasive 53 mm[Hg] DR SARAH FANG MD [facility] 12-17-2023 15:01-0400 Heart rate 67 /min DR SARAH FANG MD [address] [place] [address] 12-17-2023 15:01-0400 Reason For Taking VItal Signs DR SARAH FANG MD [address] [place] [address] 12-17-2023 15:01-0400 Respiratory rate 16 /min DR SARAH FANG MD [address] [place] [address] 12-17-2023 15:01-0400 Systolic Blood Pressure Non-Invasive 87 mm[Hg] DR SARAH FANG MD [address] [place] [address] 12-17-2023 09:26-[address] SARAH FANG MD [address] [place] [address] 12-17-2023 09:26-[address] SARAH FANG MD [address] [place] [address] 12-17-2023 09:26-0400 Diastolic Blood Pressure Non-Invasive 54 mm[Hg] DR SARAH FANG MD [address] [place] [address] 12-17-2023 09:26-0400 Systolic Blood Pressure Non-Invasive 90 mm[Hg] DR SARAH FANG MD [address] [place] [address] 12-17-2023 09:15-[address] SARAH FANG MD [address] [place] [address] 12-17-2023 09:15-[address] SARAH FANG MD [address] [place] [address] 12-17-2023 09:15-0400 Diastolic Blood Pressure Non-Invasive 60 mm[Hg] DR SARAH FANG MD [address] [place] [address] 12-17-2023 09:15-0400 Heart rate 71 /min DR SARAH FANG MD [address] [place] [address] 12-17-2023 09:15-0400 Systolic Blood Pressure Non-Invasive 93 mm[Hg] DR SARAH FANG MD [address] [place] [address] 12-17-2023 08:13-0400 Body temperature 97.52 [degF] DR SARAH FANG MD [address] [place] [address] 12-17-2023 08:13-0400 Heart rate 59 /min DR SARAH FANG MD [address] [place] [address] 12-17-2023 08:13-0400 Reason For Taking VItal Signs DR SARAH FANG MD [address] [place] [address] 12-17-2023 08:13-0400 Respiratory rate 16 /min DR SARAH FANG MD [address] [place] [address] 12-16-2023 22:57-0400 Body temperature 98.06 [degF] DR SARAH FANG MD [address] [place] [address] 12-16-2023 22:57-0400 Heart rate 80 /min DR SARAH FANG MD [address] [place] [address] 12-16-2023 22:57-0400 Mean blood pressure 56 mm[Hg] DR SARAH FANG MD [address] [place] [address] 12-16-2023 22:57-0400 Reason For Taking VItal Signs DR SARAH FANG MD [address] [place] [address] 12-16-2023 22:57-0400 Respiratory rate 20 /min DR SARAH FANG MD [address] [place] [address] 12-15-2023 06:44-[address] Cuff Size DR SARAH FANG MD [address] [place] [address] 12-14-2023 07:05-0400 Blood Pressure Cuff Size DR SARAH FANG MD [address] [place] [address] 12-13-2023 21:33-0400 Heart rate 79 /min DR SARAH FANG MD [address] [place] [address] 12-13-2023 20:41-0400 Heart rate 78 /min DR SARAH FANG MD [address] [place] [address] 12-13-2023 20:41-0400 Mean blood pressure 82 mm[Hg] DR SARAH FANG MD [address] [place] [address] 12-13-2023 11:57-0400 Body temperature 97.16 [degF] DR SARAH FANG MD [address] [place] [address] 12-13-2023 11:57-0400 Mean blood pressure 87 mm[Hg] DR SARAH FANG MD [address] [place] [address] 12-13-2023 10:55-0400 Body temperature 96.98 [degF] DR SARAH FANG MD [address] [place] [address] 12-13-2023 10:50-0400 Respiratory Rate - Anes 0 br/min DR SARAH FANG MD [address] [place] [address] 12-13-2023 10:45-0400 Respiratory Rate - Anes 15 br/min DR SARAH FANG MD [address] [place] [address] 12-13-2023 10:40-0400 Respiratory Rate - Anes 22 br/min DR SARAH FANG MD [address] [place] [address] 12-13-2023 10:05-0400 Body temperature 96.76 [degF] DR SARAH AFNG MD [address] [place] [address] 12-13-2023 10:00-0400 Body temperature 96.82 [degF] DR SARAH FANG MD [address] [place] [address] 12-13-2023 09:55-0400 Body temperature 96.84 [degF] DR SARAH FANG MD [address] [place] [address] 12-13-2023 04:10-0400 Body weight 76.97 kg/m2 DR SARAH FANG MD [facility] 12-10-2023 08:47-0500 Heart rate 66 /min DR SARAH FANG MD [address] [place] [address] 12-08-2023 08:23-0500 Heart rate 61 /min DR SARAH FANG MD [address] [place] [address] 12-07-2023 19:32-0500 Body temperature 97.7 [degF] DR SARAH FANG MD [address] [place] [address] 12-07-2023 17:06-0500 Body height 165.[address] SARAH FANG MD [address] [place] [address] 12-07-2023 17:06-0500 Body weight 209.[address] SARAH FANG MD [address] [place] [address] 12-07-2023 17:06-0500 Body weight 76.97 kg/m2 DR SARAH FANG MD [address] [place] [address] 12-07-2023 15:35-0500 Body temperature 97.52 [degF] DR SARAH FANG MD [facility] 12-07-2023 04:13-0500 Heart rate 75 /min DR SARAH FANG MD [address] [place] [address] 12-06-2023 12:01-0500 Body weight 209.[address] SARAH FANG MD [facility] 08-18-2023 18:03-0500 SaO2% (BldA) [Mass fraction] 96 % ANANT AKBAR [facility] Comment on above: Performed By: #### [id number] #### [facility],[address] [place] [address] 12-20-2019 18:22-0400 Body Temperature 97.7 [degF] Kobi Emanuel [place], [place] 12-20-2019 18:22-0400 BP Diastolic 71 mm[Hg] Kobi Emanuel [facility] [place] , RAIM[place] 12-20-2019 18:22-0400 BP Systolic 111 mm[Hg] Kobi Emanuel [facility] [place] , [place] 12-20-2019 18:22-0400 Pulse (Heart Rate) 100 /min Kobi [facility], RAIMUNDO 12-20-2019 18:22-0400 Pulse Oximetry 94 % Kobi Emanuel [facility] [place] , [place]IM[place] 12-20-2019 18:22-0400 Respiratory Rate 20 /[facility], [place] 12-20-2019 06:21-0400 BMI (Body Mass Index) 72.4 kg/m2 [facility] Adelfo [facility] [place], [place] 12-20-2019 06:21-0400 Body weight 197.36 kg Aggiepravin Emanuel [facility] , [place]IM[place] 12-14-2019 10:37-0400 Height 165.[address] [facility] Adelfo [facility] , [place] Encounters Encounter Date Encounter Type Care Provider Facility Start: 06-15-2024 [facility] Start: 06-14-2024 ambulatory [facility] Start: 06-14-2024 End: 06-15-2024 Emergency department [facility] Start: 12-06-2023 End: 12-17-2023 Evaluation and management of inpatient DR SARAH FANG MD Facility:A Start: 12-06-2023 End: 12-17-2023 Evaluation and management of inpatient DR SARAH FANG MD [facility] Start: 12-06-2023 End: 12-06-2023 Emergency department [facility] Start: 10-29-2023 End: 10-29-2023 Emergency department patient visit [facility] Start: 09-12-2023 End: 09-12-2023 [facility] Start: 08-24-2023 End: 08-25-2023 ambulatory JASWINDER MICHAUD [facility] Start: 08-23-2023 End: 08-24-2023 Emergency department patient visit DEVIN Menendez [facility] Start: 08-18-2023 End: 08-19-2023 Emergency department patient visit DEVIN Menendez [facility] Start: 08-15-2023 End: 08-15-2023 Emergency department patient visit [facility] Start: 08-11-2023 End: 08-13-2023 ambulatory [facility] Start: 08-11-2023 ambulatory RAH MONREAL MD~[id number] Facility:[facility] Start: 08-09-2023 End: 08-09-2023 [facility] Start: 07-28-2023 ambulatory CINDY WHITE APRN~[id number] Facility:[facility] Start: 07-24-2023 End: 07-24-2023 Emergency department patient visit ANANT AKBAR [facility] Start: 07-16-2023 End: 07-16-2023 Emergency department patient visit [facility] Start: 07-08-2023 End: 07-09-2023 Emergency department patient visit JIMENA COOLEY [facility] Start: 06-01-2023 End: 06-01-[address] [facility] Start: 05-25-2023 End: 05-25-[address] [facility] Start: 03-25-2023 End: 03-25-[address] [facility] Start: 02-23-2023 End: 02-23-[address] [facility] Start: 01-26-2023 Telephone encounter Andres Wade MD Work Phone: [facility] Comment on above: Patient Question Start: 10-29-2022 End: 10-29-2022 ambulatory JULIO C MORRISSEY Facility:[facility] Start: 10-29-2022 End: 10-29-2022 Subsequent hospital visit by physician [facility] Comment on above: Other chest pain [R0 7.89] Start: 09-10-2022 Orders Only Julio C Ritchie i, MD Work Phone: Cardiology Comment on above: Other chest pain (Pr imary Dx) Start: 08-21-2021 End: 08-21-2021 Subsequent hospital visit by physician Reynaldo Kent Work Phone: [facility] Start: 08-07-2021 End: 08-07-2021 Subsequent hospital visit by physician Reynaldo Kent Work Phone: [facility] Start: 07-11-2021 End: 07-11-2021 Subsequent hospital visit by physician Reynaldo Kent Work Phone: [facility] Start: 07-03-2021 End: 07-03-2021 Subsequent hospital visit by physician Reynaldo Kent Work Phone: [facility] Start: 05-29-2021 End: 05-29-2021 Subsequent hospital visit by physician Reynaldo Kent Work Phone: [facility] Start: 05-26-2021 End: 05-26-2021 Subsequent hospital visit by physician Reynaldo Kent Work Phone: [facility] Start: 05-08-2021 End: 05-08-2021 Subsequent hospital visit by physician Reynaldo Kent Work Phone: [facility] Start: 04-24-2021 End: 04-24-2021 Subsequent hospital visit by physician Reynaldo Kent Work Phone: [facility] Start: 04-10-2021 End: 04-10-2021 Subsequent hospital visit by physician Reynaldo Kent Work Phone: [facility] Start: 03-13-2021 End: 03-13-2021 Subsequent hospital visit by [facility] Start: 02-27-2021 End: 02-27-2021 Subsequent hospital visit by physician Reynaldo Kent [facility] Start: 02-20-2021 End: 02-20-2021 Subsequent hospital visit by physician Reynaldo Kent [facility] Phone: [facility] Start: 01-02-2021 End: 01-02-2021 Subsequent hospital visit by physician Reynaldo Kent Work Phone: [facility] Start: 12-19-2020 End: 12-19-2020 Subsequent hospital visit by physician Reynaldo Kent [facility] Phone[facility] Start: 12-14-2019 End: 12-20-2019 Evaluation and management of inpatient Kobi Emanuel Work Phone: [facility] Comment on above: Wound cellulitis (Pr imary Dx) Procedures Date Procedure Procedure Detail Performing Clinician Start: 10-29-2023 Urinalysis ANANT AKBAR Comment on above: Result Comment: URIN ALYSIS Performed By: #### [id number] #### [place] [id number] Start: 07-16-2023 Urinalysis ANANT AKBAR Comment on above: Result Comment: URIN ALYSIS Performed By: #### [id number] #### [place] [id number] Start: 07-08-2023 Urinalysis ANANT AKBAR Comment on above: Result Comment: URIN ALYSIS Performed By: #### [id number] #### [place] [id number] Start: 10-29-2022 Myocardial spect mul tiple studies Julio C Morrissey MD Work Phone: Start: 12-20-2019 Assay of magnesium Anika th Protacio Work Phone: Start: 12-20-2019 Assay of phosphorus inorganic Vilma Protacio Work Phone: Start: 12-20-2019 BASIC METABOLIC PANE L W/ REFLEX TO MG FOR LOW K Vilma Protacio Work Phone: Start: 12-20-2019 Blood count complete auto&auto difrntl wbc Vilma Protacio Work Phone: Start: 12-20-2019 Calcium ionized Vilma Protacio Work Phone: Start: 12-20-2019 MANUAL DIFFERENTIAL [place] ith Protacio Work Phone: Start: 12-19-2019 Assay of magnesium Anika th Protacio Work Phone: Start: 12-19-2019 Assay of phosphorus inorganic Vilma Protacio Work Phone: Start: 12-19-2019 BASIC METABOLIC PANE L W/ REFLEX TO MG FOR LOW K Vilma Protacio Work Phone: Start: 12-19-2019 Blood count complete auto&auto difrntl wbc Vilma Protacio Work Phone: Start: 12-19-2019 Calcium ionized Vilma Protacio Work Phone: Start: 12-19-2019 MANUAL DIFFERENTIAL [place] ith Protacio Work Phone: Start: 12-18-2019 Ecg routine ecg w/le ast 12 lds w/i&r Laquita Matthews Work Phone: Start: 12-18-2019 Assay of magnesium Anika th Protacio Work Phone: Start: 12-18-2019 Assay of phosphorus inorganic Vilma Protacio Work Phone: Start: 12-18-2019 Basic metabolic pane l calcium total Vilma Protacio Work Phone: Start: 12-18-2019 Blood count complete auto&auto difrntl wbc Vilma Protacio Work Phone: Start: 12-18-2019 Calcium ionized Vilma Protacio Work Phone: Start: 12-18-2019 MANUAL DIFFERENTIAL [place] ith Protacio Work Phone: Start: 12-17-2019 Assay of magnesium Unkn own Provider Result Start: 12-17-2019 BASIC METABOLIC PANE L W/ REFLEX TO MG FOR LOW K Vilma Protacio Work Phone: Start: 12-17-2019 Thromboplastin time partial plasma/whole blood Jerri K Bg Work Phone: Start: 12-17-2019 Assay of magnesium Unkn own Provider Result Start: 12-17-2019 Assay of phosphorus inorganic Unknown Provider Result Start: 12-17-2019 BASIC METABOLIC PANE L W/ REFLEX TO MG FOR LOW K Vilma Protacio Work Phone: Start: 12-17-2019 Blood count complete auto&auto difrntl wbc Vilma Protacio Work Phone: Start: 12-17-2019 Calcium ionized Vilma Protacio Work Phone: Start: 12-17-2019 MANUAL DIFFERENTIAL Kau ng H Dias Work Phone: Start: 12-16-2019 Thromboplastin time partial plasma/whole blood Jerri K Bg Work Phone: Start: 12-16-2019 Radiologic examinati on femur minimum 2 views Yifan Hoffmann Work Phone: Start: 12-16-2019 Radex hip unilateral with pelvis 2-3 views Jerri K Bg Work Phone: Start: 12-16-2019 Assay of magnesium Unkn own Provider Result Start: 12-16-2019 BASIC METABOLIC PANE L W/ REFLEX TO MG FOR LOW K Vilma Protacio Work Phone: Start: 12-16-2019 Blood count complete automated Jerri K Bg Work Phone: Start: 12-16-2019 Thromboplastin time partial plasma/whole blood Jerri K Bg Work Phone: Start: 12-16-2019 Radiologic exam ches t single view Jerri K Bg Work Phone: Start: 12-16-2019 Echo tthrc r-t 2d w/ wom-mode compl spec&colr d Kaung H Dias Work Phone: Start: 12-16-2019 Assay of magnesium Kaun g H Dias Work Phone: Start: 12-16-2019 Assay of phosphorus inorganic Kaung H Dias Work Phone: Start: 12-16-2019 BASIC METABOLIC PANE L W/ REFLEX TO MG FOR LOW K Vilma Protacio Work Phone: Start: 12-16-2019 Blood count complete auto&auto difrntl wbc Vilma Protacio Work Phone: Start: 12-16-2019 Calcium ionized Vilma Protacio Work Phone: Start: 12-16-2019 Hepatic function panel Kaung H Dias Work Phone: Start: 12-16-2019 MANUAL DIFFERENTIAL Kau ng H Dias Work Phone: Start: 12-15-2019 Assay of magnesium Kaun g H Dias Work Phone: Start: 12-15-2019 Assay of phosphorus inorganic Kaung H Dias Work Phone: Start: 12-15-2019 BASIC METABOLIC PANE L W/ REFLEX TO MG FOR LOW K Kaung H Dias Work Phone: Start: 12-15-2019 Drug screen quantita tive vancomycin Kaung H Dias Work Phone: Start: 12-15-2019 Assay of magnesium Kaun g H Dias Work Phone: Start: 12-15-2019 Assay of phosphorus inorganic Kaung H Dias Work Phone: Start: 12-15-2019 BASIC METABOLIC PANE L W/ REFLEX TO MG FOR LOW K Kaung H Dias Work Phone: Start: 12-15-2019 Dup-scan xtr veins c omplete bilateral study Kaung H Dias Work Phone: Start: 12-15-2019 Assay of magnesium Kaun g H Dias Work Phone: Start: 12-15-2019 Assay of phosphorus inorganic Kaung H Dias Work Phone: Start: 12-15-2019 BASIC METABOLIC PANE L W/ REFLEX TO MG FOR LOW K Kaung H Dias Work Phone: Start: 12-15-2019 BLOOD GAS, ARTERIAL Byron id Szilagy Work Phone: Start: 12-15-2019 Assay of magnesium Kaun g H Dias Work Phone: Start: 12-15-2019 Assay of phosphorus inorganic Kaung H Dias Work Phone: Start: 12-15-2019 BASIC METABOLIC PANE L W/ REFLEX TO MG FOR LOW K Kaung H Dias Work Phone: Start: 12-15-2019 Blood count complete auto&auto difrntl wbc Vilma Protacio Work Phone: Start: 12-15-2019 Calcium ionized Vilma Protacio Work Phone: Start: 12-15-2019 Culture bacterial bl ood aerobic w/id isolates Kaung H Dias Work Phone: Start: 12-15-2019 Hepatic function panel Kaung H Dias Work Phone: Start: 12-15-2019 MANUAL DIFFERENTIAL Kau ng H Dias Work Phone: Start: 12-14-2019 Assay of osmolality urine Kaung H Dias Work Phone: Start: 12-14-2019 Drug screen class list a Kaung H Dias Work Phone: Start: 12-14-2019 Assay of magnesium Kaun g H Dias Work Phone: Start: 12-14-2019 Assay of phosphorus inorganic Kaung H Dias Work Phone: Start: 12-14-2019 BASIC METABOLIC PANE L W/ REFLEX TO MG FOR LOW K Kaung H Dias Work Phone: Start: 12-14-2019 BLOOD GAS, ARTERIAL Kau ng H Dias Work Phone: Start: 12-14-2019 Acute hepatitis panel A yoselin Freed Work Phone: Start: 12-14-2019 Assay of magnesium Kaun g Ayse Dias Work Phone: Start: 12-14-2019 Assay of phosphorus inorganic Yadira Tavera Dias Work Phone: Start: 12-14-2019 BASIC METABOLIC PANE L W/ REFLEX TO MG FOR LOW K Yadira Tavera Dias Work Phone: Start: 12-14-2019 Hepatitis b surf ant ibody hbsab Valentino Freed Work Phone: Start: 12-14-2019 Radiologic exam ches t single view Reynaldo Bello Work Phone: Start: 12-14-2019 End: 12-14-2019 ADD ON LAB TEST Yadira Dias [employer] Phone: Start: 12-14-2019 Assay of acetaminophen Yadira Tavera [employer] Phone: Start: 12-14-2019 Assay of ethylene glycol Yadira Tavera [employer] Work Phone: Start: 12-14-2019 Assay of osmolality blood Valentino Freed Work Phone: Start: 12-14-2019 Basic metabolic pane l calcium total Yadira Tavera [employer] Phone: Start: 12-14-2019 Hepatic function panel Yadira Tavera [employer] Phone: Start: 12-14-2019 Procalcitonin (pct) Kau ng Ayse [employer] Phone: Start: 12-14-2019 VOLATILE PANEL, SERUM K tenzin H [employer] Phone: Start: 12-14-2019 Us retroperitoneal r eal time w/image limited Yadira Tavera [employer] Phone: Start: 12-14-2019 POC ARTERIAL REPIRAT ORY PANEL - RAPID RESPONSE Unknown Provider Result Start: 12-14-2019 Iadna respiratry pro be & rev trnscr 12-25 target Yadira Tavera [employer] Phone: Start: 12-14-2019 Ecg routine ecg w/le ast 12 lds w/i&r Yadira Tavera Dias Work Phone: Start: 12-14-2019 Assay of osmolality urine Yadira Tavera Dias Work Phone: Start: 12-14-2019 Assay of urine sodium K tenzin H Dias Work Phone: Start: 12-14-2019 Creatinine other source Yadira Dias Work Phone: Start: 12-14-2019 Drug screen class list a Yadira Tavera Dias Work Phone: Start: 12-14-2019 Iaad ia mult step me thod nos each organism Yadira Tavera Dias Work Phone: Start: 12-14-2019 STREP PNEUMONIAE ANTIGEN Yadira Tavera Dias Work Phone: Start: 12-14-2019 Urnls dip stick/tabl et rgnt auto w/o microscopy Yadira Tavera Dias Work Phone: Start: 12-14-2019 Assay of lactate Yadira Tavera Dias Work Phone: Start: 12-14-2019 Assay of lipase Yadira Tavera Dias Work Phone: Start: 12-14-2019 Assay of magnesium Franklinun rafael Tavera Dias Work Phone: Start: 12-14-2019 Assay of phosphorus inorganic Yadira Tavera Dias Work Phone: Start: 12-14-2019 Assay of troponin quantitative Yadira Tavera Dias Work Phone: Start: 12-14-2019 BASIC METABOLIC PANE L W/ REFLEX TO MG FOR LOW K Yadira Tavera Dias Work Phone: Start: 12-14-2019 Blood count complete auto&auto difrntl wbc Vilma Protacio Work Phone: Start: 12-14-2019 Calcium ionized Vilma Protacio Work Phone: Start: 12-14-2019 CULTURE, BLOOD 1 Yadira Tavera Dias Work Phone: Start: 12-14-2019 MANUAL DIFFERENTIAL Kau ng Ayse Dias Work Phone: Start: 12-14-2019 Radiologic exam ches t single view Jerri K Bg Work Phone: Start: 12-14-2019 RESPIRATORY CARE YASIR LUATION ONLY Jerri Pederson Work Phone: Start: 07-24-2016 Mammography Julio C Bear MD Work Phone: Start: 05-21-2013 Bypass of stomach Gastric bypass DR SARAH FANG MD Start: 01-21-2011 Colonoscopy Julio C Bear MD Work Phone: Start: 05-21-[address] LARY FANG MD Appendectomy DR SARAH CARROLL MD Bypass of stomach DR LARY FANG MD Cardiac catheterization DR Sho FANG MD Cholecystectomy DR SARAH FANG MD Hysterectomy DR SARAH CARROLL MD Repair of musculoten dinous cuff of shoulder DR SARAH FANG MD Plan of Treatment Date Care Activity Detail Author Start: 03-09-2029 Urine microalbumin profile DTAP,TDAP,TD (3 - Td or Tdap) [facility] Start: 03-29-2028 Screening for malign ant neoplasm of colon Colon cancer screen colonoscopy [facility] Start: 01-13-2026 DIABETES SCREEN DIABETES SCREEN [facility] Start: 07-20-2025 DIABETES SCREEN DIABETES SCREEN [facility] Start: 12-13-2023 LIPID SCREEN LIPID SCREEN [facility] Start: 06-08-2023 ambulatory Ambulatory [facility] Start: 06-04-2023 Influenza vaccination INFLUENZ A (Season Ended) [facility] Start: 09-12-2022 End: 10-10-2023 NM CARDIAC PERF STRESS/PHARM NM CARDIAC PERF STRESS/PHARM Radiology Routine Other chest pain Expected: 09/12/2022, Expires: 10/10/2023 [facility] Work Phone: Comment on above: Expected: 09/12/2022 , Expires: 10/10/2023 Start: 06-04-2022 Influenza vaccination INFLUENZA (#1) [facility] Start: 06-04-2021 Influenza vaccination S [facility] Start: 2021 Screening for malign ant neoplasm of breast Breast cancer screen [facility] Start: 2021 Shingles Vaccine (1 of 2) Shingles Vaccine (1 of 2) [facility] Start: 2021 SHINGRIX VACCINE (1 of 2) SHINGRIX VACCINE (1 of 2) [facility] Start: 12-19-2020 Creatinine monitoring Creatinine mon [place], [place] Start: 12-19-2020 Potassium monitoring Potassium monit [place], [place] Start: 06-04-2020 Influenza vaccination Flu vaccine (# 1) [facility] Work Phone: Start: 06-02-2020 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 Start: 07-24-2017 Mammography MAMMOGRAM [facility] Start: 2016 COLOGUARD (FIT-DNA) COLOGUARD (FIT-D NA) [facility] Start: 2016 Colonoscopy COLONOSCOPY [facility] Start: 2016 COLORECTAL CANCER SCREENING COLORECTAL CANCER SCREENING [facility] Start: [address] COLONOGRAPHY [facility] Start: 2016 FECAL OCCULT BLOOD FECAL OCCULT BLOO D [facility] Start: 2016 SIGMOIDOSCOPY SIGMOIDOSCOPY [facility] Start: 2011 Lipid panel Lipid screen [facility] Start: 2011 Lipid screen Lipid screen [place], [place] Start: 2001 Screening for malign ant neoplasm of cervix [facility] Start: 1992 Cervical cancer screen Cervical canc er screen [place], [place] Start: 1992 Screening for malign ant neoplasm of cervix [facility] Start: 1990 DTaP/Tdap/Td vaccine (1 - Tdap) DTaP/Tdap/Td vaccine (1 - Tdap) [facility] Start: 1989 BP CONTROLLED (<130/80) BP CONTROLLE D (<130/80) [facility] Start: 1989 HIV SCREENING HIV SCREENING [facility] Start: 1987 COVID-19 Vaccine (1) COVID-19 Vaccin e (1) [facility] Work Phone: Start: 1986 HIV screen HIV screen [facility] [place] Start: 1986 HIV screening [facility] screen [facility] Start: 1983 COVID-19 Vaccine (1) COVID-19 Vaccin e (1) [facility] Start: 1971 COVID-19 VACCINE (#1) COVID-19 VACCI NE (#1) [facility] Start: 1971 HEPATITIS B (1 of 3 - 3-dose series) HEPATITIS B (1 of 3 - 3-dose series) [facility] End: 12-14-2019 Basic metabolic 2000 panel Basic Metabolic Panel Lab STAT One Time for 1 Occurrences starting 12/14/2019 until 12/14/2019 [place] Comment on above: One Time for 1 Occur rences starting 12/14/2019 until 12/14/2019 Basic metabolic 2000 panel Basic Metabolic Panel Lab STAT 12/14/2019 2:59 PM EDT [place] End: 12-22-2019 Basic Metabolic Panel w/ Reflex to MG Basic Metabolic Panel w/ Reflex to MG Lab Routine Every 12 hours (Lab) for 7 Days starting 12/16/2019 until 12/22/2019, 6 completed [facility] [place] Comment on above: Every 12 hours (Lab) for 7 Days starting 12/16/2019 until 12/22/2019, 6 completed BIPAP BIPAP Respirator y Care Routine Every 4hr until discontinued starting 12/17/2019 [place] Comment on above: Every 4hr until disc ontinued starting 12/17/2019 CBC auto differential CBC auto d ifferential Lab Routine Daily until discontinued starting 12/14/2019, 7 completed [place] Comment on above: Daily until disconti nued starting 12/14/2019, 7 completed End: 12-15-2019 Hemodialysis inpatient Hemodialysis inpatient Dialysis Routine One Time for 1 Occurrences starting 12/15/2019 until 12/15/2019 [facility] [place] Comment on above: One Time for 1 Occur rences starting 12/15/2019 until 12/15/2019 Hepatic Function Panel Hepatic F unction Panel Lab Routine 12/15/2019 2:58 AM EDT [place] Initiate Oxygen Ther apy Protocol Initiate Oxygen Therapy Protocol Respiratory Care Routine Daily until discontinued starting 12/14/2019 [place] Comment on above: Daily until disconti nued starting 12/14/2019 Ionized Calcium Ionized Calcium Lab Routine Daily until discontinued starting 12/14/2019, 7 completed [place] Comment on above: Daily until disconti nued starting 12/14/2019, 7 completed End: 01-16-2020 Magnesium [Mass/Vol] Magnesium Lab Routine Daily for 31 Occurrences starting 12/17/2019 until 01/16/2020, 1 completed [place] Comment on above: Daily for 31 Occurre nces starting 12/17/2019 until 01/16/2020, 1 completed Magnesium [Mass/Vol] Magnesium L ab Routine 12/17/2019 2:10 AM EDT [facility] [place] End: 12-23-2019 Phosphate [Mass/Vol] Phosphorus Lab Routine Daily for 7 Days starting 12/17/2019 until 12/23/2019, 1 completed [place] Comment on above: Daily for 7 Days sta rting 12/17/2019 until 12/23/2019, 1 completed Phosphate [Mass/Vol] Phosphorus Lab Routine 12/17/2019 2:10 AM EDT [facility] [place] End: 12-14-2019 Salicylate Salicylate Lab Routine One Time for 1 Occurrences starting 12/14/2019 until 12/14/2019 [place] Comment on above: One Time for 1 Occur rences starting 12/14/2019 until 12/14/2019 Salicylate Salicylate Lab R outine 12/14/2019 2:59 PM EDT [place] End: 12-14-2019 Troponin I.cardiac [Mass/Vol] Troponin Lab Timed One Time for 1 Occurrences starting 12/14/2019 until 12/14/2019 [place] Comment on above: One Time for 1 Occur rences starting 12/14/2019 until 12/14/2019 Troponin I.cardiac [Mass/Vol] Troponin Lab Timed 12/14/2019 11:33 AM EDT [facility] End: 12-18-2019 Urinalysis Urinalysis Lab Routine One Time for 1 Occurrences starting 12/18/2019 until 12/18/2019 [facility] Comment on above: One Time for 1 Occur rences starting 12/18/2019 until 12/18/2019 Immunizations Immunization Date Immunization Notes Care Provider Lenora donahue 06-28-2018 influenza, injectabl e, quadrivalent, contains preservative Julio C Morrissey MD Work Phone: [facility] 07-27-2016 influenza, injectabl e, quadrivalent, contains preservative Julio C Morrissey MD Work Phone: [facility] 07-06-2016 influenza, injectabl e, quadrivalent, preservative free DR SARAH FANG MD [facility] 08-01-2015 influenza, injectabl e, quadrivalent, preservative free DR SARAH FANG MD [facility] 07-24-2011 influenza virus vacc ine, unspecified formulation Julio C Morrissey MD Work Phone: [facility] 06-30-2009 pneumococcal polysaccharide vaccine, 23 valent Julio C Morrissey MD Work Phone: [facility] Work Phone: 06-27-2009 influenza virus vacc ine, unspecified formulation Julio C Morrissey MD Work Phone: [facility] Work Phone: Payers Date Payer Category Payer Medicare [id number] 2022 Unknown [facility] [id number] 2022-Present [phone] [address] [place] [address] O [id number] 2022 Unknown [id number] 2019 Medicare HUMANA MEDICARE HUMANA CHOICE-PPO MEDICARE xxxxxxxxx 2019-Present [address] [address] [place] [address] xxxxxxxxx [id number] 2019 Medicare [id number] .[id number] 2019 Medicare [id number] .[id number] 2018 Medicaid MEDICAID [facility] DEPT OF JOB xxxxxxxxxxxx 2018-Present [phone] [address] [place] [address] xxxxxxxxxxxx [id number] 2011 Medicaid [id number] .[id number] 2011 Medicaid MEDICAID [facility] MEDICAID [id number] 2011-Present [phone] [address] [place] [address] Medicaid [id number] 2010 Self-pay 1971 Unknown [id number]7 1971 Unknown [id number] 2.16.840.1.531283.3.579.2.297 1971 Unknown [id number] 2.16.840.1.523446.3.579.2.297 1971 Unknown [id number] 2.16.840.1.790217.3.579.2.297 1971 Unknown [id number] 2.16.840.1.187325.3.579.2.297 1971 Unknown [id number] 2.16.840.1.473979.3.579.2.419 1971 Unknown [id number] 2.16.840.1.004303.3.579.2.419 1971 Unknown [id number] 2.16.840.1.952885.3.579.2.627 1971 Unknown [id number] 2.16.840.1.838581.3.579.2.651 1971 Unknown [id number] 2.16.840.1.686242.3.579.2.651 1971 Unknown [id number] 2.16.840.1.316740.3.579.2.651 1971 Unknown [id number] 2.16.840.1.781869.3.579.2.651 1971 Unknown [id number] 2.16.840.1.953591.3.579.2.651 1971 Unknown [id number] 2.16.840.1.501031.3.579.2.651 1971 Unknown [id number] 2.16.840.1.157463.3.579.2.651 1971 Unknown [id number] 2.16.840.1.667987.3.579.2.651 1971 Unknown [id number] 2.16.840.1.333358.3.579.2.651 1971 Unknown [id number] 2.16.840.1.645419.3.579.2.651 1971 Unknown [id number] 2.16.840.1.234797.3.579.2.651 1971 Unknown [id number] 2.16.840.1.136555.3.579.2.651 1971 Unknown [id number] 2.16.840.1.911920.3.579.2.651 1971 Unknown [id number] 2.16.840.1.231021.3.579.2.651 1971 Unknown [id number] 2.16.840.1.126978.3.579.2.651 1971 Unknown [id number] 2.16.840.1.654659.3.579.2.651 Social History Date Type Detail Facility Start: 07-11-2018 End: 12-17-2020 Tobacco smoking status NHIS Never smoker [place] Start: 07-11-2018 End: 09-10-2020 Alcohol intake Current non-drinker of alcohol (finding) [place], [place] Start: 1970 Sex Assigned At Not on file [place], [place] Start: 11-16-2016 End: 07-11-2018 Tobacco use and exposure Never used [employer] Work Phone: Start: 1970 Sex Assigned At Female C [facility] Medical Equipment Procedure Code Equipment Code Equipment Original Text Equipment Identifier Dates Extremity Herpetology Teacher al Fixator Application L Unknown 12/07/23 Unknown Unknown FDA Start: 12-07-2023 Extremity Herpetology Teacher al Fixator Application L Unknown 12/07/23 Unknown Unknown FDA Start: 12-07-2023 Extremity Herpetology Teacher al Fixator Application L Unknown 12/07/23 Unknown Unknown FDA Start: 12-07-2023 Extremity Herpetology Teacher al Fixator Application L Unknown 12/07/23 Unknown Unknown FDA Start: 12-07-2023 Extremity Herpetology Teacher al Fixator Application L Unknown 12/07/23 Unknown Unknown FDA Start: 12-07-2023 Extremity Herpetology Teacher al Fixator Application L Unknown 12/07/23 Unknown Unknown FDA Start: 12-07-2023 Extremity Herpetology Teacher al Fixator Application L Unknown 12/07/23 Unknown Unknown FDA Start: 12-07-2023 Extremity Herpetology Teacher al Fixator Application L Unknown 12/07/23 Unknown Unknown FDA Start: 12-07-2023 Tibia/Fibula Ope n Reduction Internal Fix Unknown 12/13/23 Unknown Unknown FDA Start: 12-13-2023 Tibia/Fibula Ope n Reduction Internal Fix Unknown 12/13/23 Unknown Unknown FDA Start: 12-13-2023 Tibia/Fibula Ope n Reduction Internal Fix Unknown 12/13/23 Unknown Unknown FDA Start: 12-13-2023 Tibia/Fibula Ope n Reduction Internal Fix Unknown 12/13/23 Unknown Unknown FDA Start: 12-13-2023 Tibia/Fibula Ope n Reduction Internal Fix Unknown 12/13/23 Unknown Unknown FDA Start: 12-13-2023 Tibia/Fibula Ope n Reduction Internal Fix Unknown 12/13/23 Unknown Unknown FDA Start: 12-13-2023 Tibia/Fibula Ope n Reduction Internal Fix Unknown 12/13/23 Unknown Unknown FDA Start: 12-13-2023 Tibia/Fibula Ope n Reduction Internal Fix Unknown 12/13/23 Unknown Unknown FDA Start: 12-13-2023 Tibia Rodding Intramedullary Unknown 12/13/23 Unknown Unknown FDA Start: 12-13-2023 Tibia Rodding Intramedullary Unknown 12/13/23 Unknown Unknown FDA Start: 12-13-2023 Tibia Rodding Intramedullary Unknown 12/13/23 Unknown Unknown FDA Start: 12-13-2023 Tibia Rodding Intramedullary Unknown 12/13/23 Unknown Unknown FDA Start: 12-13-2023 Unknown Unknown 12/13/23 Unknown Unknown FDA Start: 12-13-2023 Functional Status Date Assessment Result Facility 12-17-2023 Functional Status Identified as high risk, Fall ID band on, Room located near nursing station, Door open, Bathroom light on, Non-Slip footwear, Room check performed [facility] 12-17-2023 Functional Status Lunch Percent 75 [facility] 12-17-2023 Functional Status Total [facility] 12-17-[address] [facility] [address] [facility] 12-16-2023 Functional Status [facility] 12[facility]16-2023 Functional Status [facility] 12-16-2023 Functional Status [facility] 12[facility]15-2023 Functional Status [facility] 12[facility]14-2023 Functional Status [facility] 12-14-2023 Functional Status [facility] 12-14-2023 Functional Status [facility] 12-14-2023 Functional Status [facility] 12-14-2023 Functional Status [facility] 12-14-2023 Functional Status [facility] 12-14-2023 Functional Status [facility] 12-14-2023 Functional Status Antiembolism S tocking Off/Removed right knee high [facility] 12-13-2023 Functional Status Patient Identified Iden tification band [facility] 12-13-2023 Functional Status NPO Status Maryellen ntained, More than 8 hours [facility] 12-13-2023 Functional Status [facility] 12-12-2023 Functional Status [facility] 12-12-2023 Functional Status [facility] 12-12-2023 Functional Status Done [facility] 12-12-2023 Functional Status Reason SCD Removed/Off Patient refused [facility] 12-11-2023 Functional Status [facility] 12-11-2023 Functional Status [facility] 12-10-2023 Functional Status [facility] 12-10-2023 Functional Status [facility] 12-10-2023 Functional Status [facility] 12-08-2023 Functional Status [facility] 12-07-2023 Functional Status Sensory Deficits None [facility] 12-07-2023 Functional Status [facility] 12-07-2023 Functional Status Single level home [facility] 12-07-2023 Functional Status [facility] 12-07-2023 Functional Status [facility] 12-06-2023 Functional Status Evening Snack Percent 1 00 [facility] Mental Status Date Assessment Result Facility 12-17-2023 Mental Status Oriented x [facility] 12-17-2023 [facility]-17[facility]23 [facility] Clinical Notes 03-29-2018 to 12-17-2023 Note Date & Type Note Facility 12-17-2023 Discharge summary Date of Service 12/17/2023 Discharge Diagnosis Acute mechanical fall. Acute comminuted, displaced and impacted fracture of the proximal tibial metadiaphysis with additional nondisplaced oblique fracture through the fibular head. Acute blood loss anemia Chronic paroxysmal atrial fibrillation on chronic anticoagulation with Eliquis. Chronic heart failure with preserved ejection fraction and lymphedema. Chronic essential hypertension. Chronic hyperlipidemia. Chronic anxiety and depression. Morbid Obesity Newly diagnosed elevated liver enzymes. Ordered: Percocet 5 mg-325 mg oral tablet; Dose = 1 tab(s), Oral, q6hr, PRN as needed for pain, X 3 day(s), # 12 tab(s), 0 Refill(s), Post-op pain, 209.8 Additional Orders: Other status: CBC,12/17/23 5:00:00 EDT, Next AM Draw (one day only), Blood, Once, Preferred Lab: Other lab service, Stop date 12/17/23 5:00:00 EDT(Complete) Other status: CMP,12/17/23 5:00:00 EDT, Next AM Draw (one day only), Blood, Once, Preferred Lab: Other lab service, Stop date 12/17/23 5:00:00 EDT(Complete) Ordered: Discharge,12/17/23 11:31:00 EDT, Discharged to: [facility] Facility Ordered: MiraLax oral powder for reconstitution,Oral, BID, 0 Refill(s) Ordered: Robaxin,Dose : 1,000 mg = 2 tab(s), Oral, QID, 0 Refill(s) Ordered: Transfer of Care Activity,Non-Weight Bearing Activity Only, NWAmanda LLE, 12/17/23 11:22:00 EDT Ordered: Transfer of Care Admission Level of Care,Level of Care SNF, 12/17/23 11:32:53 EDT Ordered: Transfer of Care Code Status,Full Code, Constant Order Ordered: Transfer of Care Communication Order,Expect less than 30 day stay., 12/17/23 11:23:05 EDT Ordered: Transfer of Care Diet,Type of Diet: Regular Diet, Diet Restrictions: Lactose free, 12/17/23 11:22:00 EDT Ordered: Transfer of Care Labwork,CBC, anemia, follow-up within: 3-5 days, Results Notify to: in house physician, 12/17/23 11:32:00 EDT Ordered: Transfer of Care OT,Reason for therapy: weakness, 12/17/23 11:22:00 EDT Ordered: Transfer of Care Orders Electronically Signed By,12/17/23 11:22:00 EDT, WINNIE RIVAS MD Ordered: Transfer of Care PT,Reason for therapy: weakness, 12/17/23 11:22:00 EDT Ordered: Transfer of Care Prognosis,Fair, Patient Aware: Yes Ordered: Transfer of Care Rehab Potential,Rehab potential fair, 12/17/23 11:23:05 EDT Ordered: Transfer of Care Wound Care,Dressing Type: Vacuum drsg, Leg, lower left, 12/17/23 11:22:00 EDT Ordered: Tylenol 325 mg oral capsule,Dose : 650 mg =, Oral, q4h, PRN Pain, scale 1-3, 0 Refill(s) Ordered: Vitamin D3 50 mcg (2000 intl units) oral tablet,Dose : 50 mcg = 1 tab(s), Oral, qDay, 0 Refill(s) Ordered: ferrous sulfate 325 mg (65 mg elemental iron) oral delayed release tablet,Dose : 325 mg = 1 tab(s), Oral, Every other day, # 15 tab(s), 0 Refill(s), other reason (Rx) End of Orders Hospital Course Patient is a 53-year-old female with past medical history significant for atrial fibrillation on chronic anticoagulation with Eliquis, heart failure with preserved ejection fraction, lymphedema, hypertension, hyperlipidemia, anxiety and depression. Patient was admitted to [facility] from 12/06/2023 following a mechanical fall. Patient was unable to ambulate. X-rays were performed that showed close displaced left proximal tibial fracture. Patient was unable to undergo CT of the hip due to weight limits for which she was transferred to [facility] for further evaluation treatment. CT left knee was performed on arrival that showed a comminuted, displaced and impacted fracture of the proximal tibial metadiaphysis with an additional nondisplaced oblique fracture through the fibular head. Orthopedic surgery was consulted. Patient underwent 12/07/2023 left knee spanning external fixator. [1] On 12/13/23 patient underwent left knee spanning external fixator removal, Left tibia intramedullary nailing with open reduction internal fixation medial plate fixation and irrigation and debridement of 4 right leg wounds 2 x 2 centimeter wounds of skin, subcutaneous tissue, fascia, bone of external fixator pin sites. Wound VAC in place. Pain symptoms managed with Percocet as needed. Patient had acute blood loss anemia. Hemoglobin improving, 7.6 today. No active signs of bleeding. Continue Eliquis for atrial fibrillation. She is also iron deficient and vitamin D deficient. Continue oral supplementation. She has been mildly hypotensive at times. Hold lisinopril and Lasix at discharge. Discussed with PCP before resuming. Patient eval by physical therapy and Occupational Therapy. Patient plans to be discharged to [facility]. She will continue with Tylenol, Percocet and Robaxin for pain control. She was provided a 3-day prescription of opioids. Follow-up with orthopedic surgeon in 1 to 2 weeks for postoperative visit. Nonweightbearing to the left lower extremity. She is hemodynamically stable. Plan of care discussed with patient. All questions answered. Patient verbalized understanding is agreeable to plan of care. Discussed with my collaborating physician Dr. Rivas. This dictation was performed using voice recognition software and may include grammatical and/or spelling errors. Allergies Augmentin (Swelling of throat, Hives) Contrast Dye(s) (Swelling of throat, Hives) Augmentin XR (unspecified) amoxicillin (unspecified) amoxicillin-clavulanate (Unknown) iodine (unspecified) Consults Consult to Anesthesia - Ordered -- 12/06/23 16:53:00 EST, surgery pending Consult to Anesthesia - Ordered -- 12/12/23 14:20:00 EDT, surgery pending Consult to Physician - Ordered -- 12/06/23 16:14:00 EST, STUART NYE MD, Routine, left knee fracture Physical Exam Vitals and Measurements T: 36.6 C (Oral) TMIN: 36.4 C (Oral) TMAX: 36.7 C (Oral) HR: 67 RR: 16 BP: 87/53 SpO2: 97% Weight Dosing Weight: 209.8 kg (12/07/23) Dosing Weight: 209.8 kg (12/06/23) Vitals Signs(Last 24 hrs)__ Last Charted Minimum Maximum Temp 36.6(DEC 16 15:01) 36.6(DEC 16 15:01) 36.7(DEC 15 22:57) Heart Rate 80(DEC 15 22:57) 80(DEC 15 22:57) 80(DEC 15 22:57) SBP L 87(DEC 16 15:01) L 87(DEC 16 15:01) 107(DEC 16 08:13) DBP L 53(DEC 16 15:) C 44(DEC 15 18:32) 60(DEC 16 09:15) Physical Exam General: No acute distress. Alert and Appropriate. Lungs: Bilaterally diminished breath sounds with no crepitation or wheeze. Unlabored Cardiovascular: Heart is regular rhythm, S1S2, No extra-audible heart tones Abdomen: Abdomen is soft, nontender. Rounded/Obese. Bowel sounds positive all four quadrants. Extremities: No clubbing, cyanosis or edema. Peripheral pulses palpable. No calf tenderness. Adequate peripheral circulation. Left lower extremity wound VAC in place. Draining serosanguineous. Neurological: The patient is awake, oriented to time, people and place. Following simple commands, moving all extremities. Poor mobility. Requires 2-3 person assist to sit at the edge of the bed. Code Status Code Status - Ordered -- 12/06/23 14:51:00 EST, Full Code, Constant Order Admission Date 12/06/2023 Discharge Date 12/17/2023 Patient Instructions Follow-up with PCP and orthopedics, call office to set up appointments Continue nonweightbearing to left lower extremity per orthopedic discretion Return to the ED for new or worsening symptoms Medications New Prescription acetaminophen (Tylenol 325 mg oral capsule)650 Milligram by mouth every 4 hours as needed Pain, scale 1-3. acetaminophen-oxyCODONE (Percocet 5 mg-325 mg oral tablet)1 tab(s) by mouth every 6 hours as needed as needed for pain for 3 Days. Refills: 0. cholecalciferol (Vitamin D3 50 mcg (2000 intl units) oral tablet)1 tab(s) by mouth once a day. docusate (Colace 100 mg oral capsule)1 cap by mouth two (2) times a day as needed Constipation. ferrous sulfate (ferrous sulfate 325 mg (65 mg elemental iron) oral delayed release tablet)1 tab(s) by mouth every other day for 30 Days. Refills: 0. methocarbamol (Robaxin)1,000 Milligram by mouth four (4) times a day. polyethylene glycol 3350 (MiraLax oral powder for reconstitution)by mouth two (2) times a day. Unchanged amLODIPine (amLODIPine 10 mg oral tablet)1 tab(s) by mouth once a day. apixaban (Eliquis 5 mg oral tablet)1 tab(s) by mouth two (2) times a day. atorvastatin (atorvastatin 10 mg oral tablet)1 tab(s) by mouth once a day. busPIRone (busPIRone 15 mg oral tablet)1 tab(s) by mouth three (3) times a day. clonazePAM (KlonoPIN 0.5 mg oral tablet)1 tab(s) by mouth daily at bedtime. fluticasone nasal (fluticasone proprionate NASAL 50 mcg/ spray)1 spray(s) by inhalation two (2) times a day as needed as needed for allergy symptoms. gabapentin (gabapentin 300 mg oral capsule)2 cap by mouth two (2) times a day. hydrOXYzine (hydrOXYzine hydrochloride 25 mg oral tablet)1 tab(s) by mouth every 8 hours as needed as needed for itching. isosorbide mononitrate (isosorbide mononitrate 60 mg oral tablet, extended release)1 tab(s) by mouth once a day (in the morning). levocetirizine (levocetirizine 5 mg oral tablet)1 tab(s) by mouth once a day (in the evening). olopatadine ophthalmic (Pataday 0.2% ophthalmic solution)1 Drops Both eyes once a day. omeprazole (omeprazole 20 mg oral delayed release capsule)1 cap by mouth once a day before a meal. potassium chloride (potassium chloride 10 mEq oral capsule, extended release)1 cap by mouth once a day as needed Control symptoms. prazosin (Minipress 1 mg oral capsule)1 cap by mouth daily at bedtime. QUEtiapine (QUEtiapine 300 mg oral tablet)1 tab(s) by mouth daily at bedtime. sotalol (sotalol 120 mg oral tablet)1 tab(s) by mouth two (2) times a day. topiramate (topiramate 25 mg oral capsule)2 cap by mouth once a day (in the morning). topiramate (topiramate 25 mg oral tablet)1 tab(s) by mouth once a day (in the evening). Discontinued furosemide (Lasix 20 mg oral tablet)1 tab(s) by mouth two (2) times a day. lisinopril (lisinopril 10 mg oral tablet)1 tab(s) by mouth once a day. Follow Up Follow Up with [facility], report to [phone] When Within 1-2 days Follow Up with NOT PHYSICIAN When Within 1-2 days Follow Up with CLARENCE LOPEZ DO, Orthopedic When In 1 week Why: Schedule appointment as soon as possible for 1-2 weeks from discharge for post-op visit Where: [address] [place] [address]- [phone] Follow Up with JASWINDER CONTRERAS CNP When Within 1-2 days Why: Please call the office to schedule a follow-up appointment. Where: [id number] [place], [place] [address]- Follow Up Appointments Transfer of Care OT - Ordered -- Reason for therapy: weakness, 12/17/23 11:22:00 EDT Transfer of Care PT - Ordered -- Reason for therapy: weakness, 12/17/23 11:22:00 EDT Follow Up Labs/Studies Discharge Labs Transfer of Care Labwork - Ordered -- CBC, anemia, follow-up within: 3-5 days, Results Notify to: in house physician, 12/17/23 11:32:00 EDT Discharge Studies No Follow-up Studies Discharge Diet Transfer of Care Diet - Ordered -- Type of Diet: Regular Diet, Diet Restrictions: Lactose free, 12/17/23 11:22:00 EDT Discharge Activity Transfer of Care Activity - Ordered -- Non-Weight Bearing Activity Only, NWB LLE, 12/17/23 11:22:00 EDT Condition on Discharge stable Discharge Disposition SNF Information Provided To Patient Time Spent 40 minutes Digitally Signed by RL ESTRADA on 12/17/2023 04:14 PM [facility] 12-17-2023 Hospital Discharg e instructions Patient Education 12/17/2023 11:57:57 Pain Relief Before and After Surgery Pain Relief Before and After Surgery Pain relief is an important part of your overall care before, during, and after surgery. You and your health care provider will work together to make a plan to manage pain that you have before surgery (preoperative) and after surgery (postoperative). Addressing pain before surgery lessens the pain that you will have after surgery. Make sure that you fully understand and agree with your pain relief plan. If you have questions or concerns, it is important to discuss them with your health care provider. If you have pain that is not controlled by medicine, tell your health care provider. Severe pain after surgery may: Prevent sleep. Decrease your ability to breathe deeply and to cough. This can result in pneumonia or upper airway infections. Cause your heart to beat more quickly. Cause your blood pressure to be higher. Increase your risk for stomach and digestive problems. Slow down wound healing. Lead to depression, anxiety, and feelings of helplessness. Your health care provider may use more than one method at a time to help relieve your pain. Using this approach may allow you to eat, move around, and possibly leave the hospital sooner. What are options for managing pain before and after surgery? Oral pain medicines Pain medicines taken by mouth (orally) include: Non-narcotic medicines: ?Acetaminophen. ?NSAIDs, such as ibuprofen and naproxen. Muscle relaxants. These may relieve pain caused by muscle spasms. Anticonvulsants. These medicines are usually used to treat seizures. They may help to lessen nerve pain. Opioids. These medicines relieve pain by binding to pain receptors in the brain and spinal cord (narcotic pain medicines). Opioids may help relieve short-term (acute) postoperative pain that is moderate to moderately severe. ?Opioids are often combined with non-narcotic medicines to improve pain relief, lower the risk of side effects, and lower the chance of addiction. ?To help prevent addiction, opioids are given for short periods of time in careful doses. If you follow instructions from your health care provider and you do not have a history of substance abuse, your risk of becoming addicted to opioids is low. Some of these medicines may be available in injectable form. They may be given through an IV if you are unable to eat or drink. As-needed pain control You can receive pain medicine when you need it, through an IV or as a pill or liquid. When you tell your health care provider that you are having pain, he or she will give you the proper pain medicine. Medicine that numbs an area You may be given pain medicine that numbs an area (local anesthetic): As an injection near your painful area (local infiltration). As an injection near the nerve that provides feeling to a specific part of your body (peripheral nerve block). As an injection in your spine (spinal block). Through a local anesthetic reservoir pump. For this method, one or more catheters are inserted into your incision at the end of your procedure. These catheters are connected to a device that is filled with a non-narcotic pain medicine. Medicine gradually empties into your incision area over the next several days. Continuous epidural pain control With this method, you receive pain medicine through a small, thin tube (catheter) that is inserted into your back, near your spinal cord. Medicine flows through the catheter to lessen pain in areas of your body that are below the catheter. The catheter is usually put into the back shortly before surgery. It may be left in until you can eat, take medicine by mouth, pass urine, and have a bowel movement. This method may be recommended if you are having surgery on your abdomen, hip area, or legs. This method of pain relief may help you heal faster because you may be able to do these things sooner: Regain normal bowel and bladder function. Return to eating. Get up and walk. IV patient-controlled analgesia (PROPELLER LAYOUT WORKER) pump With this method, you receive pain medicine through an IV that is connected to a PROPELLER LAYOUT WORKER pump. The PROPELLER LAYOUT WORKER pump gives you a specific amount of medicine when you push a button. This lets you control how much medicine you receive. You are the only person who should push this button. The pump is set up so that you cannot accidentally give yourself too much medicine. You will be able to start using your PROPELLER LAYOUT WORKER pump in the recovery room after your procedure. Tell your health care provider: If you are having too much pain. If you cannot push the button. If you are feeling too sleepy or nauseous. Other pain control methods Other methods of pain relief after surgery include: Heat and cold therapy. Massage. Topical analgesics. These are patches, creams, and gels that can be applied on the skin. Steroid medicines. These medicines may be given to lessen swelling. Physical therapy. A physical therapist will work with you to meet goals, such as feeling and functioning better. Physical therapy usually includes specific exercises that are tailored to your needs. Transcutaneous electrical nerve stimulation (TENS). This method sends electrical signals through the skin to interrupt pain signals. Cognitive behavioral therapy (CBT). This therapy helps you learn coping skills for dealing with pain. What are some questions to ask my health care provider? What pain relief options would be best for me? What are the risks of each option? What are the benefits of each option? How long will I need pain relief after surgery? Summary A plan to manage pain that you may have before surgery (preoperative) and after surgery (postoperative) is an important part of your overall care. Pain management options include medicines and non-medical therapies, such as physical therapy, massage, and heat or cold therapy. Pain management medicines include opioids and non-narcotic medicines such as NSAIDs, steroids, or local anesthetics. Pain medicines can have side effects. Side effects of opioids include constipation, nausea, excessive sleepiness, and risk of addiction. Your health care provider will work with you to prevent or manage these side effects and risks. This information is not intended to replace advice given to you by your health care provider. Make sure you discuss any questions you have with your health care provider. Document Released: 12/11/2003 Document Revised: 09/23/2018 Document Reviewed: 12/31/2017 [employer] Patient Education [employer]. Follow Up Care 12/06/2023 11:59:25 With:[facility], report to [phone] Address:Unknown When:1-2 days With:NOT PHYSICIAN Address:Unknown When:1-2 days With:CLARENCE LOPEZ DO, Orthopedic Address: [address] [place] [address]- [phone] When:Within 1 Week(s) Comments:Schedule appointment as soon as possible for 1-2 weeks from discharge for post-op visit With:JASWINDER CONTRERAS [facility] Address: [id number] [place], [place] [address]- When:1-2 days Comments:Please call the office to schedule a follow-up appointment. [facility] 12-17-2023 Note Discharge Instructions Thank you for allowing [facility] to assist you with your healthcare needs. The following is important discharge information regarding your hospital visit. Your Care Team PHYSICIAN, NOT RECORDED Your Diagnosis Fall Post-op pain What to do next Instructions From Your Doctor Follow-up with PCP and orthopedics, call office to set up appointments Continue nonweightbearing to left lower extremity per orthopedic discretion Return to the ED for new or worsening symptoms Scheduled Follow-Up Appointments Appointment Type When Where Contact InformationCV OV 12/24/2023 02:00 PM EDT [facility]ments Follow Up with [facility], report to [phone] When Within 1-2 days Follow Up with NOT PHYSICIAN When Within 1-2 days Follow Up with CLARENCE LOPEZ DO, Orthopedic When In 1 week Why: Schedule appointment as soon as possible for 1-2 weeks from discharge for post-op visit Where: [address] [place] [address]- [phone] Follow Up with JASWINDER CONTRERAS CNP When Within 1-2 days Why: Please call the office to schedule a follow-up appointment. Where: [id number] [place], [place] [address]- The Following Activity and Diet Have Been Ordered for You Transfer of Care Activity - Ordered -- Non-Weight Bearing Activity Only, NWB LLE, 12/17/23 11:22:00 EDT Transfer of Care Diet - Ordered -- Type of Diet: Regular Diet, Diet Restrictions: Lactose free, 12/17/23 11:22:00 EDT The Following Equipment Has Been Ordered for You Discharge Home Equipment Discharge Wound Care - Ordered -- Dressing Type: Dry sterile drsg, Ankle, left, Keep Clean dry and intact, replace for saturation as needed., 12/13/23 11:02:00 EDT Discharge Wound Vac Care - Ordered -- Left lower extremity, Continuous suction, 125 cmH20, Purple foam, 12/13/23 11:01:00 EDT Transfer of Care Wound Care - Ordered -- Dressing Type: Vacuum drsg, Leg, lower left, 12/17/23 11:22:00 EDT The Following Treatments Have Been Ordered for You Discharge Labs Transfer of Care Labwork - Ordered -- CBC, anemia, follow-up within: 3-5 days, Results Notify to: in house physician, 12/17/23 11:32:00 EDT Discharge Radiology No qualifying data available. Other Therapies Transfer of Care OT - Ordered -- Reason for therapy: weakness, 12/17/23 11:22:00 EDT Transfer of Care PT - Ordered -- Reason for therapy: weakness, 12/17/23 11:22:00 EDT Post Acute Orders Transfer of Care Admission Level of Care - Ordered -- Level of Care SNF, 12/17/23 11:32:53 EDT Transfer of Care Code Status - Ordered -- Full Code, Constant Order Transfer of Care Communication Order - Ordered -- Expect less than 30 day stay., 12/17/23 11:23:05 EDT Transfer of Care Labwork - Ordered -- CBC, anemia, follow-up within: 3-5 days, Results Notify to: in house physician, 12/17/23 11:32:00 EDT Transfer of Care Orders Electronically Signed By - Ordered -- 12/17/23 11:22:00 EDT, WINNIE RIVAS MD Transfer of Care Prognosis - Ordered -- Fair, Patient Aware: Yes Transfer of Care Rehab Potential - Ordered -- Rehab potential fair, 12/17/23 11:23:05 EDT Someone Will Contact You Regarding These Home Health Referrals No home referrals have been ordered for you. No one will call you. Allergies Augmentin (Swelling of throat, Hives) Contrast Dye(s) (Swelling of throat, Hives) Augmentin XR (unspecified) amoxicillin (unspecified) amoxicillin-clavulanate (Unknown) iodine (unspecified) Medications Please ask your primary doctor or pharmacist before taking any other medication not listed, including over the counter drugs, herbal medications, vitamins and or supplements as they may interact with your home medications. What How Much When Why Instructions Last Dose New acetaminophen (Tylenol 325 mg oral capsule) 650 Milligram by mouth Every 4 hours as needed for Pain, scale 1-3 New acetaminophen-oxyCODONE (Percocet 5 mg-325 mg oral tablet) 1 tab(s) by mouth Every 6 hours as needed for as needed for pain Post-op pain Duration: 3 Days Printed Prescription New cholecalciferol (Vitamin D3 50 mcg (2000 intl units) oral tablet) 1 tab(s) by mouth Once a day New docusate (Colace 100 mg oral capsule) 1 cap by mouth Two (2) times a day as needed for Constipation New ferrous sulfate (ferrous sulfate 325 mg (65 mg elemental iron) oral delayed release tablet) 1 tab(s) by mouth Every other day Duration: 30 Days New methocarbamol (Robaxin) 1,000 Milligram by mouth Four (4) times a day New polyethylene glycol 3350 (MiraLax oral powder for reconstitution) by mouth Two (2) times a day Unchanged amLODIPine (amLODIPine 10 mg oral tablet) 1 tab(s) by mouth Once a day Unchanged apixaban (Eliquis 5 mg oral tablet) 1 tab(s) by mouth Two (2) times a day Unchanged atorvastatin (atorvastatin 10 mg oral tablet) 1 tab(s) by mouth Once a day Unchanged busPIRone (busPIRone 15 mg oral tablet) 1 tab(s) by mouth Three (3) times a day Unchanged clonazePAM (KlonoPIN 0.5 mg oral tablet) 1 tab(s) by mouth Daily at bedtime Unchanged fluticasone nasal (fluticasone proprionate NASAL 50 mcg/ spray) 1 spray(s) by inhalation Two (2) times a day as needed for as needed for allergy symptoms Unchanged gabapentin (gabapentin 300 mg oral capsule) 2 cap by mouth Two (2) times a day Unchanged hydrOXYzine (hydrOXYzine hydrochloride 25 mg oral tablet) 1 tab(s) by mouth Every 8 hours as needed for as needed for itching Unchanged isosorbide mononitrate (isosorbide mononitrate 60 mg oral tablet, extended release) 1 tab(s) by mouth Once a day (in the morning) Unchanged levocetirizine (levocetirizine 5 mg oral tablet) 1 tab(s) by mouth Once a day (in the evening) Unchanged olopatadine ophthalmic (Pataday 0.2% ophthalmic solution) 1 Drops Both eyes Once a day Unchanged omeprazole (omeprazole 20 mg oral delayed release capsule) 1 cap by mouth Once a day before a meal Unchanged potassium chloride (potassium chloride 10 mEq oral capsule, extended release) 1 cap by mouth Once a day as needed for Control symptoms Unchanged prazosin (Minipress 1 mg oral capsule) 1 cap by mouth Daily at bedtime Unchanged QUEtiapine (QUEtiapine 300 mg oral tablet) 1 tab(s) by mouth Daily at bedtime Unchanged sotalol (sotalol 120 mg oral tablet) 1 tab(s) by mouth Two (2) times a day Unchanged topiramate (topiramate 25 mg oral capsule) 2 cap by mouth Once a day (in the morning) Unchanged topiramate (topiramate 25 mg oral tablet) 1 tab(s) by mouth Once a day (in the evening) What How Much When Comments Stop Taking furosemide (Lasix 20 mg oral tablet) 1 tab(s) by mouth Two (2) times a day Stop Taking lisinopril (lisinopril 10 mg oral tablet) 1 tab(s) by mouth Once a day Please take this list to your next doctor s visit. Bring all medications you take, including over the counter medications, herbals and other supplements with you to your doctor s visit. Patients and families are reminded to discard old lists and to update any records with all medication providers or retail pharmacies. Medication Leaflets acetaminophen and oxycodone (a SEET a MIN oh fen and OX i KOE done) Endocet 10/325, Endocet 2.5/325, Endocet 5/325, Endocet 7.5/325, Nalocet, Percocet, Prolate What is the most important information I should know about acetaminophen and oxycodone? MISUSE OF OPIOID MEDICINE CAN CAUSE ADDICTION, OVERDOSE, OR . Keep the medication in a place where others cannot get to it. Taking opioid medicine during may cause life-threatening withdrawal symptoms in the . Fatal side effects can occur if you use opioid medicine with alcohol, or with other drugs that cause drowsiness or slow your breathing. Stop taking this medicine and call your doctor right away if you have skin redness or a rash that spreads and causes blistering and peeling. What is acetaminophen and oxycodone? Acetaminophen and oxycodone is a combination medicine used to relieve moderate to severe pain. Acetaminophen and oxycodone contains an opioide medicine and may be habit-forming. Acetaminophen and oxycodone may also be used for purposes not listed in this medication guide. What should I discuss with my healthcare provider before taking acetaminophen and oxycodone? You should not use this medicine if you are allergic to acetaminophen or oxycodone, or if you have: severe asthma or breathing problems; or a blockage in your stomach or intestines. Tell your doctor if you have ever had: breathing problems, sleep apnea; liver disease; a drug or alcohol addiction; kidney disease; a head injury or seizures; urination problems; or problems with your thyroid, pancreas, or gallbladder. If you use opioid medicine while you are , your baby could become dependent on the drug. This can cause life-threatening withdrawal symptoms in the baby after it is born. Babies born dependent on opioids may need medical treatment for several weeks. Ask a doctor before using opioid medicine if you are . Tell your doctor if you notice severe drowsiness or slow breathing in the nursing baby. How should I take acetaminophen and oxycodone? Follow all directions on your prescription label. Never take this medicine in larger amounts, or for longer than prescribed. An overdose can damage your liver or cause . Tell your doctor if you feel an increased urge to use more of this medicine. Never share opioid medicine with another person, especially someone with a history of drug abuse or addiction. MISUSE CAN CAUSE ADDICTION, OVERDOSE, OR . Keep the medicine in a place where others cannot get to it. Selling or giving away opioid medicine is against the law. Measure liquid medicine carefully. Use the dosing syringe provided, or use a medicine dose-measuring device (not a kitchen spoon). If you need surgery or medical tests, tell the doctor ahead of time that you are using this medicine. You should not stop using this medicine suddenly. Follow your doctor's instructions about tapering your dose. Store at room temperature away from moisture and heat. Keep track of your medicine. You should be aware if anyone is using it improperly or without a prescription. Do not keep leftover opioid medication. Just one dose can cause in someone using this medicine accidentally or improperly. Ask your pharmacist where to locate a drug take-back disposal program. If there is no take-back program, flush the unused medicine down the toilet. What happens if I miss a dose? Since this medicine is used for pain, you are not likely to miss a dose. Skip any missed dose if it is almost time for your next dose. Do not use two doses at one time. What happens if I overdose? Seek emergency medical attention or call the Poison Help line at . An overdose of this medicine can be fatal, especially in a child or other person using the medicine without a prescription. Overdose symptoms may include nausea, vomiting, sweating, severe drowsiness, pinpoint pupils, slow breathing, or no breathing. Your doctor may recommend you get naloxone (a medicine to reverse an opioid overdose) and keep it with you at all times. A person caring for you can give the naloxone if you stop breathing or don't wake up. Your caregiver must still get emergency medical help and may need to perform CPR (cardiopulmonary resuscitation) on you while waiting for help to arrive. Anyone can buy naloxone from a pharmacy or local health department. Make sure any person caring for you knows where you keep naloxone and how to use it. What should I avoid while taking acetaminophen and oxycodone? Avoid driving or operating machinery until you know how this medicine will affect you. Dizziness or drowsiness can cause falls, accidents, or severe injuries. Do not drink alcohol. Dangerous side effects or could occur. Ask a doctor or pharmacist before using any other medicine that may contain acetaminophen (sometimes abbreviated as APAP). Taking certain medications together can lead to a fatal overdose. What are the possible side effects of acetaminophen and oxycodone? Get emergency medical help if you have signs of an allergic reaction: hives; difficulty breathing; swelling of your face, lips, tongue, or throat. Opioid medicine can slow or stop your breathing, and may occur. A person caring for you should give naloxone and/or seek emergency medical attention if you have slow breathing with long pauses, blue colored lips, or if you are hard to wake up. In rare cases, acetaminophen may cause a severe skin reaction that can be fatal. This could occur even if you have taken acetaminophen in the past and had no reaction. Stop taking this medicine and call your doctor right away if you have skin redness or a rash that spreads and causes blistering and peeling. Call your doctor at once if you have: noisy breathing, sighing, shallow breathing, breathing that stops; a light-headed feeling, like you might pass out; weakness, tiredness, fever, unusual bruising or bleeding; confusion, unusual thoughts or behavior; problems with urination; liver problems--nausea, upper stomach pain, tiredness, loss of appetite, dark urine, riaz-colored stools, jaundice (yellowing of the skin or eyes); low cortisol levels-- nausea, vomiting, loss of appetite, dizziness, worsening tiredness or weakness; or high levels of serotonin in the body--agitation, hallucinations, fever, sweating, shivering, fast heart rate, muscle stiffness, twitching, loss of coordination, nausea, vomiting, diarrhea. Serious breathing problems may be more likely in older adults and in those who are debilitated or have wasting syndrome or chronic breathing disorders. Common side effects include: dizziness, drowsiness, feeling tired; feelings of extreme happiness or sadness; nausea, vomiting, stomach pain; constipation; or headache. This is not a complete list of side effects and others may occur. Call your doctor for medical advice about side effects. You may report side effects to FDA at 1-106-YFG-9255. What other drugs will affect acetaminophen and oxycodone? You may have breathing problems or withdrawal symptoms if you start or stop taking certain other medicines. Tell your doctor if you also use an antibiotic, antifungal medication, heart or blood pressure medication, seizure medication, or medicine to treat HIV or hepatitis C. Opioid medication can interact with many other drugs and cause dangerous side effects or . Be sure your doctor knows if you also use: cold or allergy medicines, bronchodilator asthma/COPD medication, or a diuretic ('water pill'); medicines for motion sickness, irritable bowel syndrome, or overactive bladder; other opioids--opioid pain medicine or prescription cough medicine; a sedative like Valium--diazepam, alprazolam, lorazepam, Xanax, Klonopin, Versed, and others; drugs that make you sleepy or slow your breathing--a sleeping pill, muscle relaxer, medicine to treat mood disorders or mental illness; drugs that affect serotonin levels in your body--a stimulant, or medicine for depression, Parkinson's disease, migraine headaches, serious infections, or nausea and vomiting. This list is not complete. Other drugs may affect acetaminophen and oxycodone, including prescription and [id number] medicines, vitamins, and herbal products. Not all possible interactions are listed here. Where can I get more information? Your doctor or pharmacist can provide more information about acetaminophen and oxycodone. Remember, keep this and all other medicines out of the reach of children, never share your medicines with others, and use this medication only for the indication prescribed. Every effort has been made to ensure that the information provided by [employer]') is accurate, up-to-date, and complete, but no guarantee is made to that effect. Drug information contained herein may be time sensitive. [employer] information has been compiled for use by healthcare practitioners and consumers in the [place] and therefore [employer] does not warrant that uses outside of the [place] are appropriate, unless specifically indicated otherwise. [employer]'s drug information does not endorse drugs, diagnose patients or recommend therapy. [employer] drug information is an informational resource designed to assist licensed healthcare practitioners in caring for their patients and/or to serve consumers viewing this service as a supplement to, and not a substitute for, the expertise, skill, knowledge and judgment of healthcare practitioners. The absence of a warning for a given drug or drug combination in no way should be construed to indicate that the drug or drug combination is safe, effective or appropriate for any given patient. [facility] does not assume any responsibility for any aspect of healthcare administered with the aid of information [facility] provides. The information contained herein is not intended to cover all possible uses, directions, precautions, warnings, drug interactions, allergic reactions, or adverse effects. If you have questions about the drugs you are taking, check with your doctor, nurse or pharmacist. Copyright [id number] [facility]. Version: 22.. Revision Date: 05/06/2023. ferrous sulfate (FARE us SUL fate) Feosol, Jacinto-In-[place], FeroSul, Fe-Juan José Drops, and Toddler Iron Drops, Slow Fe, Slow Iron, Slow Release Iron What is the most important information I should know about ferrous sulfate? Use only as directed. Tell your doctor if you use other medicines or have other medical conditions or allergies. What is ferrous sulfate? Ferrous sulfate is a type of iron. You normally get iron from the foods you eat. In the body, iron helps your blood carry oxygen to tissues and organs and helps your muscle cells store oxygen. Ferrous sulfate is used to treat iron deficiency. Ferrous sulfate may also be used for purposes not listed in this medication guide. What should I discuss before taking ferrous sulfate? Ask a doctor or pharmacist if this medicine is safe to use if you have ever had: iron overload syndrome; a red blood cell disorder such as thalassemia; or a condition for which you receive regular blood transfusions. Ask a doctor before using this medicine if you are or . Do not give ferrous sulfate to a child without medical advice. How should I take ferrous sulfate? Use exactly as directed on the label, or as prescribed by your doctor. Take on an empty stomach, at least 1 hour before or 2 hours after a meal. Measure liquid medicine carefully. Use the dosing syringe provided, or use a medicine dose-measuring device (not a kitchen spoon). Swallow the tablet whole and do not crush, chew, or break it. You may need to follow a special diet. Follow all instructions of your doctor or dietitian. Learn about the foods you should eat or avoid. Store at room temperature, away from moisture and heat. What happens if I miss a dose? Take the medicine as soon as you can, but skip the missed dose if it is almost time for your next dose. Do not take two doses at one time. What happens if I overdose? Seek emergency medical attention or call the Poison Help line at . Get emergency medical help if a child has accidentally swallowed a tablet. An overdose of iron can be fatal to a young child. Overdose symptoms may include severe vomiting, coughing up blood, bloody diarrhea, urinating less, thirst, dry skin, muscle cramps, dizziness, or fainting. What should I avoid while taking ferrous sulfate? Avoid taking other iron supplements. Do not take any vitamin or mineral supplements without asking a doctor or pharmacist. What are the possible side effects of ferrous sulfate? Get emergency medical help if you have signs of an allergic reaction: hives; difficulty breathing; swelling of your face, lips, tongue, or throat. Call your doctor at once if you have: severe stomach pain or vomiting; cough with bloody mucus or vomit that looks like coffee grounds; fever; or bloody or tarry stools. Common side effects may include: diarrhea, constipation; nausea, stomach pain; green-colored stools; or loss of appetite. This is not a complete list of side effects and others may occur. Call your doctor for medical advice about side effects. You may report side effects to FDA at 3-519-PTS-0289. What other drugs will affect ferrous sulfate? Take your ferrous sulfate dose 2 to 6 hours before or after taking any of the following: an antacid; an antibiotic; or a laxative. This list is not complete. Other drugs may affect ferrous sulfate, including prescription and rgnt-bet-lrmxjwt medicines, vitamins, and herbal products. Not all possible drug interactions are listed here. Where can I get more information? Your pharmacist can provide more information about ferrous sulfate. Remember, keep this and all other medicines out of the reach of children, never share your medicines with others, and use this medication only for the indication prescribed. Every effort has been made to ensure that the information provided by [employer]') is accurate, up-to-date, and complete, but no guarantee is made to that effect. Drug information contained herein may be time sensitive. [employer] information has been compiled for use by healthcare practitioners and consumers in the [place] and therefore [employer] does not warrant that uses outside of the [place] are appropriate, unless specifically indicated otherwise. [employer] drug information does not endorse drugs, diagnose patients or recommend therapy. [employer] drug information is an informational resource designed to assist licensed healthcare practitioners in caring for their patients and/or to serve consumers viewing this service as a supplement to, and not a substitute for, the expertise, skill, knowledge and judgment of healthcare practitioners. The absence of a warning for a given drug or drug combination in no way should be construed to indicate that the drug or drug combination is safe, effective or appropriate for any given patient. [employer] does not assume any responsibility for any aspect of healthcare administered with the aid of information [employer] provides. The information contained herein is not intended to cover all possible uses, directions, precautions, warnings, drug interactions, allergic reactions, or adverse effects. If you have questions about the drugs you are taking, check with your doctor, nurse or pharmacist. Copyright [id number] [facility] [employer] Version: 7.02. Revision Date: 06/23/2023. Education Materials Pain Relief Before and After Surgery Pain relief is an important part of your overall care before, during, and after surgery. You and your health care provider will work together to make a plan to manage pain that you have before surgery (preoperative) and after surgery (postoperative). Addressing pain before surgery lessens the pain that you will have after surgery. Make sure that you fully understand and agree with your pain relief plan. If you have questions or concerns, it is important to discuss them with your health care provider. If you have pain that is not controlled by medicine, tell your health care provider. Severe pain after surgery may: Prevent sleep. Decrease your ability to breathe deeply and to cough. This can result in pneumonia or upper airway infections. Cause your heart to beat more quickly. Cause your blood pressure to be higher. Increase your risk for stomach and digestive problems. Slow down wound healing. Lead to depression, anxiety, and feelings of helplessness. Your health care provider may use more than one method at a time to help relieve your pain. Using this approach may allow you to eat, move around, and possibly leave the hospital sooner. What are options for managing pain before and after surgery? Oral pain medicines Pain medicines taken by mouth (orally) include: Non-narcotic medicines: ? Acetaminophen. ? NSAIDs, such as ibuprofen and naproxen. Muscle relaxants. These may relieve pain caused by muscle spasms. Anticonvulsants. These medicines are usually used to treat seizures. They may help to lessen nerve pain. Opioids. These medicines relieve pain by binding to pain receptors in the brain and spinal cord (narcotic pain medicines). Opioids may help relieve short-term (acute) postoperative pain that is moderate to moderately severe. ? Opioids are often combined with non-narcotic medicines to improve pain relief, lower the risk of side effects, and lower the chance of addiction. ? To help prevent addiction, opioids are given for short periods of time in careful doses. If you follow instructions from your health care provider and you do not have a history of substance abuse, your risk of becoming addicted to opioids is low. Some of these medicines may be available in injectable form. They may be given through an IV if you are unable to eat or drink. As-needed pain control You can receive pain medicine when you need it, through an IV or as a pill or liquid. When you tell your health care provider that you are having pain, he or she will give you the proper pain medicine. Medicine that numbs an area You may be given pain medicine that numbs an area (local anesthetic): As an injection near your painful area (local infiltration). As an injection near the nerve that provides feeling to a specific part of your body (peripheral nerve block). As an injection in your spine (spinal block). Through a local anesthetic reservoir pump. For this method, one or more catheters are inserted into your incision at the end of your procedure. These catheters are connected to a device that is filled with a non-narcotic pain medicine. Medicine gradually empties into your incision area over the next several days. Continuous epidural pain control With this method, you receive pain medicine through a small, thin tube (catheter) that is inserted into your back, near your spinal cord. Medicine flows through the catheter to lessen pain in areas of your body that are below the catheter. The catheter is usually put into the back shortly before surgery. It may be left in until you can eat, take medicine by mouth, pass urine, and have a bowel movement. This method may be recommended if you are having surgery on your abdomen, hip area, or legs. This method of pain relief may help you heal faster because you may be able to do these things sooner: Regain normal bowel and bladder function. Return to eating. Get up and walk. IV patient-controlled analgesia (PROPELLER LAYOUT WORKER) pump With this method, you receive pain medicine through an IV that is connected to a PROPELLER LAYOUT WORKER pump. The PROPELLER LAYOUT WORKER pump gives you a specific amount of medicine when you push a button. This lets you control how much medicine you receive. You are the only person who should push this button. The pump is set up so that you cannot accidentally give yourself too much medicine. You will be able to start using your PROPELLER LAYOUT WORKER pump in the recovery room after your procedure. Tell your health care provider: If you are having too much pain. If you cannot push the button. If you are feeling too sleepy or nauseous. Other pain control methods Other methods of pain relief after surgery include: Heat and cold therapy. Massage. Topical analgesics. These are patches, creams, and gels that can be applied on the skin. Steroid medicines. These medicines may be given to lessen swelling. Physical therapy. A physical therapist will work with you to meet goals, such as feeling and functioning better. Physical therapy usually includes specific exercises that are tailored to your needs. Transcutaneous electrical nerve stimulation (TENS). This method sends electrical signals through the skin to interrupt pain signals. Cognitive behavioral therapy (CBT). This therapy helps you learn coping skills for dealing with pain. What are some questions to ask my health care provider? What pain relief options would be best for me? What are the risks of each option? What are the benefits of each option? How long will I need pain relief after surgery? Summary A plan to manage pain that you may have before surgery (preoperative) and after surgery (postoperative) is an important part of your overall care. Pain management options include medicines and non-medical therapies, such as physical therapy, massage, and heat or cold therapy. Pain management medicines include opioids and non-narcotic medicines such as NSAIDs, steroids, or local anesthetics. Pain medicines can have side effects. Side effects of opioids include constipation, nausea, excessive sleepiness, and risk of addiction. Your health care provider will work with you to prevent or manage these side effects and risks. This information is not intended to replace advice given to you by your health care provider. Make sure you discuss any questions you have with your health care provider. Document Released: 12/11/2003 Document Revised: 09/23/2018 Document Reviewed: 12/31/2017 [employer] Patient Education 2020 [employer]. Additional Information VACCINATE! IT SAVES LIVES! Members of the community who have not yet received the COVID-19 vaccine and would like to receive it can visit one of [facility] vaccine clinics. There are many vaccine clinic locations within the [facility]. For locations and available times, please visit [email or web address] It is important to note that some COVID mobile vaccine clinics are held outdoors and may be canceled in rainy or stormy conditions. To learn more about pediatric vaccinations (ages 5-11), we invite you to visit the [employer] webpage. [email or web address] To learn more about the COVID-19 vaccine, we invite you to visit the CDC website for a list of frequently asked questions.[email or web address].cdc.gov/co ronavirus/2019-ncov/vaccines/faq .html [facility] Patient Portal Access Instructions: Stay connected with your healthcare team and access your personal medical information anytime with the [facility] Patient Portal. Please follow the directions below to create your [facility] account: 1.Access the email account you provided upon registration to the hospital/physician office.2.Look for an invitation email from [facility].3.Open the email and access the invitation link: Accept Invitation to [facility].4.Fill in the required childers to create your account. To access your account, visit [employer]One[employer]. Click the blue button labeled Access Patient Portal and then log in with the username and password that you created in the steps above. You will be able to view your test results, lab results, a summary of your visits, upcoming appointments and more. There is also a convenient messaging option where you can send secure messages to your provider. In addition, you will have the ability to download any documents or summaries to your computer and/or send the information securely to a physician. Remember that your healthcare information is confidential, so carefully consider who you will allow to register on the [facility] for access to your information. You can also access the [facility] on the [facility] chris. Simply click on Patient Portal and then log into your account. If you would like to receive a full copy of your medical records, please contact the [facility] Medical Records Department by calling [phone], Wednesday through Wednesday between 8 a.m. and 4:30 p.m. HOW TO SAFELY DISPOSE OF PRESCRIPTION MEDICATIONS Please use one of the following methods to safely dispose of your unused medications. 1.Use a drug disposal kit: the drug disposal pouch allows you to safely discard your old and unused drugs. Ask your nurse to give you one when you are discharged.2.Visit a local take-back location: Many local pharmacies and police departments have programs that collect old and unwanted prescription drugs. Call your local pharmacy or go to http://Daojia/0H8Kv1b to find one close to you.3.Make use of household items: Use cat litter or old coffee grounds to dispose medications if other options are not available. Mix your drugs with these household products, seal them in an airtight container and throw it into the garbage. Call [facility]: [phone] to be sure your drugs can be disposed of in this way. Some medicines may require a different approach.4.Never flush your medications down the toilet. IF YOU HAVE BEEN PRESCRIBED AN OPIOID FOR PAIN If you have been prescribed an opioid (such as hydrocodone, oxycodone or morphine), it is critical to understand the possible side effects and risks of opioid pain medications. Even when taken as directed, opioids can have several side effects including: Tolerance, meaning you might need to take more of a medication for the same pain relief. Nausea, vomiting and/or constipation. Sleepiness, dizziness, dry mouth, confusion, depression or itching. Physical dependence, meaning you have withdrawal symptoms when a medication is stopped, can develop within a few days. KNOW YOUR RESPONSIBILITIES It is important to know exactly how much and how often to take the opioid pain medications you are prescribed. Never take opioids in higher amounts or more often than prescribed. Do not combine opioids with alcohol or other drugs that cause drowsiness, such as benzodiazepines, also known as benzos, including diazepam and alprazolam, muscle relaxants or sleep aids. Never sell or share prescription opioids. This is illegal. Store opioids in a secure place and out of reach of others (including children, family, friends and visitors). The last page of this document has been signed and retained as a CHART COPY. Signatures Patient Education Materials Pain Relief Before and After Surgery Medication Leaflets acetaminophen and oxycodone, ferrous sulfate My discharge plan and instructions have been reviewed and explained to me and IZENON PATRICIA E understand my current condition and have read and understand these discharge instructions. I have received a written copy of the plan/instructions. If I have questions, I am aware that I should contact my doctor. Patient/Director E Learning Signature: Date/Time: Relationship to Patient: Witness Name/Signature: Date/Time: [facility] 12-17-2023 Note Discharge Instructions Thank you for allowing [facility] to assist you with your healthcare needs. The following is important discharge information regarding your hospital visit. Your Care Team PHYSICIAN, NOT RECORDED Your Diagnosis Fall Post-op pain What to do next Instructions From Your Doctor Follow-up with PCP and orthopedics, call office to set up appointments Continue nonweightbearing to left lower extremity per orthopedic discretion Return to the ED for new or worsening symptoms Scheduled Follow-Up Appointments Appointment Type When Where Contact InformationCV OV 12/24/2023 02:00 PM EDT [facility] Follow Up Appointments Follow Up with [facility] care, report to [phone] When Within 1-2 days Follow Up with NOT PHYSICIAN When Within 1-2 days Follow Up with CLARENCE LOPEZ DO, Orthopedic When In 1 week Why: Schedule appointment as soon as possible for 1-2 weeks from discharge for post-op visit Where: [address] [place] [address]- [phone] Follow Up with JASWINDER CONTRERAS CNP When Within 1-2 days Why: Please call the office to schedule a follow-up appointment. Where: [id number] [place], [place] [address]- The Following Activity and Diet Have Been Ordered for You Transfer of Care Activity - Ordered -- Non-Weight Bearing Activity Only, NWB LLE, 12/17/23 11:22:00 EDT Transfer of Care Diet - Ordered -- Type of Diet: Regular Diet, Diet Restrictions: Lactose free, 12/17/23 11:22:00 EDT The Following Equipment Has Been Ordered for You Discharge Home Equipment Discharge Wound Care - Ordered -- Dressing Type: Dry sterile drsg, Ankle, left, Keep Clean dry and intact, replace for saturation as needed., 12/13/23 11:02:00 EDT Discharge Wound Vac Care - Ordered -- Left lower extremity, Continuous suction, 125 cmH20, Purple foam, 12/13/23 11:01:00 EDT Transfer of Care Wound Care - Ordered -- Dressing Type: Vacuum drsg, Leg, lower left, 12/17/23 11:22:00 EDT The Following Treatments Have Been Ordered for You Discharge Labs Transfer of Care Labwork - Ordered -- CBC, anemia, follow-up within: 3-5 days, Results Notify to: in house physician, 12/17/23 11:32:00 EDT Discharge Radiology No qualifying data available. Other Therapies Transfer of Care OT - Ordered -- Reason for therapy: weakness, 12/17/23 11:22:00 EDT Transfer of Care PT - Ordered -- Reason for therapy: weakness, 12/17/23 11:22:00 EDT Post Acute Orders Transfer of Care Admission Level of Care - Ordered -- Level of Care SNF, 12/17/23 11:32:53 EDT Transfer of Care Code Status - Ordered -- Full Code, Constant Order Transfer of Care Communication Order - Ordered -- Expect less than 30 day stay., 12/17/23 11:23:05 EDT Transfer of Care Labwork - Ordered -- CBC, anemia, follow-up within: 3-5 days, Results Notify to: in house physician, 12/17/23 11:32:00 EDT Transfer of Care Orders Electronically Signed By - Ordered -- 12/17/23 11:22:00 EDT, WINNIE RIVAS MD Transfer of Care Prognosis - Ordered -- Neisha, Patient Aware: Yes Transfer of Care Rehab Potential - Ordered -- Rehab potential neisha, 12/17/23 11:23:05 EDT Someone Will Contact You Regarding These Home Health Referrals No home referrals have been ordered for you. No one will call you. Allergies Augmentin (Swelling of throat, Hives) Contrast Dye(s) (Swelling of throat, Hives) Augmentin XR (unspecified) amoxicillin (unspecified) amoxicillin-clavulanate (Unknown) iodine (unspecified) Medications Please ask your primary doctor or pharmacist before taking any other medication not listed, including over the counter drugs, herbal medications, vitamins and or supplements as they may interact with your home medications. What How Much When Why Instructions Last Dose New acetaminophen (Tylenol 325 mg oral capsule) 650 Milligram by mouth Every 4 hours as needed for Pain, scale 1-3 New acetaminophen-oxyCODONE (Percocet 5 mg-325 mg oral tablet) 1 tab(s) by mouth Every 6 hours as needed for as needed for pain Post-op pain Duration: 3 Days Printed Prescription New cholecalciferol (Vitamin D3 50 mcg (2000 intl units) oral tablet) 1 tab(s) by mouth Once a day New ferrous sulfate (ferrous sulfate 325 mg (65 mg elemental iron) oral delayed release tablet) 1 tab(s) by mouth Every other day Duration: 30 Days New methocarbamol (Robaxin) 1,000 Milligram by mouth Four (4) times a day New polyethylene glycol 3350 (MiraLax oral powder for reconstitution) by mouth Two (2) times a day Unchanged amLODIPine (amLODIPine 10 mg oral tablet) 1 tab(s) by mouth Once a day Unchanged apixaban (Eliquis 5 mg oral tablet) 1 tab(s) by mouth Two (2) times a day Unchanged atorvastatin (atorvastatin 10 mg oral tablet) 1 tab(s) by mouth Once a day Unchanged busPIRone (busPIRone 15 mg oral tablet) 1 tab(s) by mouth Three (3) times a day Unchanged clonazePAM (KlonoPIN 0.5 mg oral tablet) 1 tab(s) by mouth Daily at bedtime Unchanged fluticasone nasal (fluticasone proprionate NASAL 50 mcg/ spray) 1 spray(s) by inhalation Two (2) times a day as needed for as needed for allergy symptoms Unchanged furosemide (Lasix 20 mg oral tablet) 1 tab(s) by mouth Two (2) times a day Unchanged gabapentin (gabapentin 300 mg oral capsule) 2 cap by mouth Two (2) times a day Unchanged hydrOXYzine (hydrOXYzine hydrochloride 25 mg oral tablet) 1 tab(s) by mouth Every 8 hours as needed for as needed for itching Unchanged isosorbide mononitrate (isosorbide mononitrate 60 mg oral tablet, extended release) 1 tab(s) by mouth Once a day (in the morning) Unchanged levocetirizine (levocetirizine 5 mg oral tablet) 1 tab(s) by mouth Once a day (in the evening) Unchanged lisinopril (lisinopril 10 mg oral tablet) 1 tab(s) by mouth Once a day Unchanged olopatadine ophthalmic (Pataday 0.2% ophthalmic solution) 1 Drops Both eyes Once a day Unchanged omeprazole (omeprazole 20 mg oral delayed release capsule) 1 cap by mouth Once a day before a meal Unchanged potassium chloride (potassium chloride 10 mEq oral capsule, extended release) 1 cap by mouth Once a day as needed for Control symptoms Unchanged prazosin (Minipress 1 mg oral capsule) 1 cap by mouth Daily at bedtime Unchanged QUEtiapine (QUEtiapine 300 mg oral tablet) 1 tab(s) by mouth Daily at bedtime Unchanged sotalol (sotalol 120 mg oral tablet) 1 tab(s) by mouth Two (2) times a day Unchanged topiramate (topiramate 25 mg oral capsule) 2 cap by mouth Once a day (in the morning) Unchanged topiramate (topiramate 25 mg oral tablet) 1 tab(s) by mouth Once a day (in the evening) Please take this list to your next doctor s visit. Bring all medications you take, including over the counter medications, herbals and other supplements with you to your doctor s visit. Patients and families are reminded to discard old lists and to update any records with all medication providers or retail pharmacies. Additional Information VACCINATE! IT SAVES LIVES! Members of the community who have not yet received the COVID-19 vaccine and would like to receive it can visit one of [facility] vaccine clinics. There are many vaccine clinic locations within the [facility]. For locations and available times, please visit [email or web address].[place].gov/. It is important to note that some COVID mobile vaccine clinics are held outdoors and may be canceled in rainy or stormy conditions. To learn more about pediatric vaccinations (ages 5-11), we invite you to visit the [facility] webpage. [email or web address]/p [email or web address] [email or web address].[email or web address] To learn more about the COVID-19 vaccine, we invite you to visit the CDC website for a list of frequently asked questions.https://www.cdc.gov/co ronavirus/2019-ncov/vaccines/faq .html [facility] Patient Portal Access Instructions: Stay connected with your healthcare team and access your personal medical information anytime with the [facility] Patient Portal. Please follow the directions below to create your [facility] account: 1.Access the email account you provided upon registration to the hospital/physician office.2.Look for an invitation email from [facility].3.Open the email and access the invitation link: Accept Invitation to [facility].4.Fill in the required childers to create your account. To access your account, visit [employer]One[facility]. Click the blue button labeled Access Patient Portal and then log in with the username and password that you created in the steps above. You will be able to view your test results, lab results, a summary of your visits, upcoming appointments and more. There is also a convenient messaging option where you can send secure messages to your provider. In addition, you will have the ability to download any documents or summaries to your computer and/or send the information securely to a physician. Remember that your healthcare information is confidential, so carefully consider who you will allow to register on the [facility] Patient Portal for access to your information. You can also access the [facility] Patient Portal on the [employer] Anywhere chris. Simply click on Patient Portal and then log into your account. If you would like to receive a full copy of your medical records, please contact the [facility] Medical Records Department by calling [phone], Wednesday through Wednesday between 8 a.m. and 4:30 p.m. HOW TO SAFELY DISPOSE OF PRESCRIPTION MEDICATIONS Please use one of the following methods to safely dispose of your unused medications. 1.Use a drug disposal kit: the drug disposal pouch allows you to safely discard your old and unused drugs. Ask your nurse to give you one when you are discharged.2.Visit a local take-back location: Many local pharmacies and police departments have programs that collect old and unwanted prescription drugs. Call your local pharmacy or go to http://Daojia/1Z0Nl0o to find one close to you.3.Make use of household items: Use cat litter or old coffee grounds to dispose medications if other options are not available. Mix your drugs with these household products, seal them in an airtight container and throw it into the garbage. Call [facility]: [phone] to be sure your drugs can be disposed of in this way. Some medicines may require a different approach.4.Never flush your medications down the toilet. IF YOU HAVE BEEN PRESCRIBED AN OPIOID FOR PAIN If you have been prescribed an opioid (such as hydrocodone, oxycodone or morphine), it is critical to understand the possible side effects and risks of opioid pain medications. Even when taken as directed, opioids can have several side effects including: Tolerance, meaning you might need to take more of a medication for the same pain relief. Nausea, vomiting and/or constipation. Sleepiness, dizziness, dry mouth, confusion, depression or itching. Physical dependence, meaning you have withdrawal symptoms when a medication is stopped, can develop within a few days. KNOW YOUR RESPONSIBILITIES It is important to know exactly how much and how often to take the opioid pain medications you are prescribed. Never take opioids in higher amounts or more often than prescribed. Do not combine opioids with alcohol or other drugs that cause drowsiness, such as benzodiazepines, also known as benzos, including diazepam and alprazolam, muscle relaxants or sleep aids. Never sell or share prescription opioids. This is illegal. Store opioids in a secure place and out of reach of others (including children, family, friends and visitors). The last page of this document has been signed and retained as a CHART COPY. Signatures Patient Education Materials Medication Leaflets My discharge plan and instructions have been reviewed and explained to me and I,QUINTEN YARBROUGH understand my current condition and have read and understand these discharge instructions. I have received a written copy of the plan/instructions. If I have questions, I am aware that I should contact my doctor. Patient/Director E Learning Signature: Date/Time: Relationship to Patient: Witness Name/Signature: Date/Time: [facility] 12-16-2023 Note Date of Service 12/16/2023 Chief Complaint Left lower extremity pain Subjective Patient is a 53-year-old female with past medical history significant for atrial fibrillation on chronic anticoagulation with Eliquis, heart failure with preserved ejection fraction, lymphedema, hypertension, hyperlipidemia, anxiety and depression. Patient was admitted to [facility] from 12/06/2023 following a mechanical fall. Patient was unable to ambulate. X-rays were performed that showed close displaced left proximal tibial fracture. Patient was unable to undergo CT of the hip due to weight limits for which she was transferred to [facility] for further evaluation treatment. CT left knee was performed on arrival that showed a comminuted, displaced and impacted fracture of the proximal tibial metadiaphysis with an additional nondisplaced oblique fracture through the fibular head. Orthopedic surgery was consulted. Patient underwent 12/07/2023 left knee spanning external fixator. [1] On 12/13/23 patient underwent left knee spanning external fixator removal, Left tibia intramedullary nailing with open reduction internal fixation medial plate fixation and irrigation and debridement of 4 right leg wounds 2 x 2 centimeter wounds of skin, subcutaneous tissue, fascia, bone of external fixator pin sites. Patient eval by physical therapy and Occupational Therapy. Patient plans to be discharged to [facility]. Awaiting pre-CERT. On exam, patient resting comfortably in bed. States her pain medication is starting to take effect although she is frustrated that the IV Dilaudid was discontinued. She is alert and oriented. Conversational. Denies chest pain or shortness of breath. Wound VAC to the left lower extremity intact, functioning properly. Ice pack applied to that area, endorses short-term relief. Objective Vitals and Measurements T: 36.4 C (Oral) TMIN: 36.4 C (Oral) TMAX: 36.6 C (Oral) HR: 61 RR: 16 BP: 101/61 SpO2: 98% Intake and Output 7AM Yesterday to 7AM Today Intake and Output (Last 24 hours) Intake Oral Intake 700.00 Supplement Intake 120.00 Output Urine Voided 1.00 Urinary Catheter Output: 3545.00 Stool Count 2.00 Total Summary Total Intake 820.00 Total Output 3546.00 Fluid Balance -2726.00 Physical Exam Vitals Signs(Last 24 hrs)__ Last Charted Minimum Maximum Temp 36.4(DEC 15 07:05) 36.4(DEC 15 07:05) 36.6(DEC 14 23:17) SBP 101(DEC 15 07:05) 97(DEC 15 06:55) 101(DEC 14 23:17) DBP 61(DEC 15 07:05) C 49(DEC 14 23:17) 61(DEC 15 07:05) Physical Exam General: No acute distress. Alert and Appropriate. Skin: No rash. Warm, Dry, Intact Lungs: Bilaterally diminished breath sounds with no crepitation or wheeze. Unlabored Cardiovascular: Heart is regular rhythm, S1S2, No extra-audible heart tones Abdomen: Abdomen is soft, nontender. Morbidly obese.. Bowel sounds positive all four quadrants. Extremities: No clubbing, cyanosis. No calf tenderness. Adequate peripheral circulation. Bilateral lower extremity lymphedema. Neurological: The patient is awake, oriented to time, people and place. Following simple commands, moving all extremities. Weight Dosing Weight: 209.8 kg (12/07/23) Dosing Weight: 209.8 kg (12/06/23) Medications Medications (42) Active Scheduled: (23) amLODIPine 10 mg tablet 10 mg 1 tab(s), Oral, qDay apixaban 5 mg tablet 5 mg 1 tab(s), Oral, BID busPIRone 15 mg Tablet 15 mg 1 tab(s), Oral, TID clonazePAM 0.5 mg tablet 0.5 mg 1 tab(s), Oral, qHS famotidine 20 mg tablet 20 mg 1 tab(s), Oral, qHS furosemide 20 mg tablet 20 mg 1 tab(s), Oral, BID gabapentin 300 mg Capsule 600 mg 2 cap(s), Oral, BID isosorbide mononitrate 60 mg ER tablet 60 mg 1 tab(s), Oral, qAM lisinopril 10 mg tablet 10 mg 1 tab(s), Oral, qDay loratadine 10 mg Tablet 10 mg 1 tab(s), Oral, qDay menthol-zinc oxide topical ointment 4oz 1 chris, Topical, amhs methocarbamol 500 mg Tablet 1,000 mg 2 tab(s), Oral, QID miconazole topical 2% Powder 1 chris, Topical, BID Misc communication order lovenox dose, Miscellaneous, qDay mupirocin 2% Ointment 22 Gram(s) tube 1 chris, Nostril, each, BID olopatadine ophthalmic 0.2% Soln 2.5 mL 1 drop(s), Eyes, both, qDay polyethylene glycol 3350 - UD packet 17 gram(s) 15 mL, Oral, BID prazosin 1 mg Capsule 1 mg 1 cap(s), Oral, qHS QUEtiapine 300 mg tablet 300 mg 1 tab(s), Oral, qHS senna 8.6 mg Tablet 17.2 mg 2 tab(s), Oral, qDay sotalol 120 mg Tablet 120 mg 1 tab(s), Oral, BID topiramate 25 mg Sprinkle Capsule 50 mg 2 cap(s), Oral, qAM topiramate 25 mg Tablet 25 mg 1 tab(s), Oral, qPM Continuous: (0) PRN: (19) acetaminophen 325 mg Tablet 650 mg 2 tab(s), Oral, q4h acetaminophen-OXYcodone 325 mg-5 mg Tablet 1 tab(s), Oral, q4h acetaminophen-OXYcodone 325 mg-5 mg Tablet 2 tab(s), Oral, q4h albuterol - ipratropium 2.5 mg-0.5 mg/3 mL Inhal [place] UD 3 mL, Inhalation, q4hRT dextrose 50% Solution Disp syringe 50 mL 12.5 gram(s) 25 mL, IV Push, AsDirected dextrose 50% Solution Disp syringe 50 mL 12.5 gram(s) 25 mL, IV Push, AsDirected docusate sodium 100 mg Capsule 100 mg 1 cap(s), Oral, BID fluticasone nasal 0.05 mg/inh [place] 50 mcg 1 spray(s), Inhalation, BID hydromorphone 1 mg/mL (1mL) INJ 1 mg 1 mL, IV Push, q4h hydroxyzine hcl 25 mg tablet 25 mg 1 tab(s), Oral, q8h magnesium hydroxide 8% Suspension 30 mL UD 30 mL, Oral, qHS magnesium hydroxide 8% Suspension 30 mL UD 30 mL, Oral, qHS melatonin 3 mg tablet 3 mg 1 tab(s), Oral, qHS menthol-zinc oxide topical ointment 4oz 1 chris, Topical, BID morphine 4 mg/mL 1mL INJ 5 mg 1.25 mL, IV Push, q3h ondansetron 2 mg/ 1 mL 2 mL INJ 4 mg 2 mL, IV Push, q4h ondansetron 2 mg/ 1 mL 2 mL INJ 4 mg 2 mL, IV Push, q4h potassium chloride 10 mEq ER capsule 10 mEq 1 cap(s), Oral, qDay prochlorperazine 10 mg/2 mL vial 5 mg 1 mL, IV Push, q6h Lab Results 12/15 04:33 WBC: 7.6 Hgb: 7.4 L Hct: 22.5 L Platelet: 252 Glucose Level: 98 Sodium Level: 132 L Potassium Level: 3.8 BUN: 30.0 H Creatinine Lvl (s): 1.05 12/14 09:24 Hgb: 7.9 L Hct: 23.1 L 12/14 04:55 WBC: 7.4 Hgb: 7.3 L Hct: 21.9 L Platelet: 236 Neutrophil %: 57.9 Glucose Level: 107 Sodium Level: 136 Potassium Level: 4.2 BUN: 23.0 H Creatinine Lvl (s): 0.94 EKG EKG - Completed -- 12/12/23 14:20:00 EDT, Surgery Clearance, Complete by Nursing Assessment/Plan Orders: Diet Order 1. Acute mechanical fall. 2. Acute comminuted, displaced and impacted fracture of the proximal tibial metadiaphysis with additional nondisplaced oblique fracture through the fibular head. 3. Acute blood loss anemia 4. Chronic paroxysmal atrial fibrillation on chronic anticoagulation with Eliquis. 5. Chronic heart failure with preserved ejection fraction and lymphedema. 6. Chronic essential hypertension. 7. Chronic hyperlipidemia. 8. Chronic anxiety and depression. 10. Morbid Obesity 11. Newly diagnosed elevated liver enzymes. Acute comminuted, displaced and impacted fracture of the proximal tibial metadiaphysis with additional nondisplaced oblique fracture through the fibular head. Followed by orthopedic surgery, appreciate input Postop day 3 from left tibial intramedullary nail and ORIF with irrigation and debridement of right leg wounds. Wound VAC in place. Patient continues to require Percocet every 4 hours to control pain symptoms. DC Dilaudid. Acute blood loss anemia no signs of active bleeding. Hemoglobin 7.4 today. CBC in the morning. Ordered iron studies and vitamin D level. Iron saturation 8, vitamin D 18.2. Venofer x 3 days. Start vitamin D replacement 2000 units daily. Elevated liver enzymes improving. CMP in the morning. Skilled for inpatient rehab per PT OT. Pending precertification, plan to [place] to [facility]. Plan of care discussed with patient. All questions answered. Patient verbalized understanding is agreeable to plan of care. Discussed with my collaborating physician Dr. Rivas. This dictation was performed using voice recognition software and may include grammatical and/or spelling errors. Time Spent 40 minutes Digitally Signed by RL ESTRADA on 12/16/2023 03:36 PM [facility] 12-15-2023 Note Date of Service 12/15/23 Chief Complaint LLE Pain Subjective Patient is a 53-year-old female with past medical history significant for atrial fibrillation on chronic anticoagulation with Eliquis, heart failure with preserved ejection fraction, lymphedema, hypertension, hyperlipidemia, anxiety and depression. Patient was admitted to [facility] from 12/06/2023 following a mechanical fall. Patient was unable to ambulate. X-rays were performed that showed close displaced left proximal tibial fracture. Patient was unable to undergo CT of the hip due to weight limits for which she was transferred to [facility] for further evaluation treatment. CT left knee was performed on arrival that showed a comminuted, displaced and impacted fracture of the proximal tibial metadiaphysis with an additional nondisplaced oblique fracture through the fibular head. Orthopedic surgery was consulted. Patient underwent 12/07/2023 left knee spanning external fixator. [1] On 12/13/23 patient underwent left knee spanning external fixator removal, Left tibia intramedullary nailing with open reduction internal fixation medial plate fixation and irrigation and debridement of 4 right leg wounds 2 x 2 centimeter wounds of skin, subcutaneous tissue, fascia, bone of external fixator pin sites. Patient eval by physical therapy and Occupational Therapy. Patient plans to be discharged to [facility]. Awaiting pre-CERT. Patient resting in bed. No family bedside. Patient is alert. She is oriented. Answer questions properly. Patient states the pain is well-controlled at this time. Patient states she is feeling well. She denies any shortness of breath, nausea, vomiting, lightness, dizziness, fever and chills. Objective Vitals and Measurements T: 36.8 C (Oral) TMIN: 36.7 C (Oral) TMAX: 37.2 C (Oral) HR: 67 RR: 18 BP: 104/61 SpO2: 98% Intake and Output 7AM Yesterday to 7AM Today Intake and Output (Last 24 hours) Intake Oral Intake 1620.00 Output Urinary Catheter Output: 2175.00 Stool Count 0.00 Total Summary Total Intake 1620.00 Total Output 2175.00 Fluid Balance -555.00 Physical Exam Vitals Signs(Last 24 hrs)__ Last Charted Minimum Maximum Temp 36.5(DEC 14 15:) 36.5(DEC 14 15:) 36.7(DEC 13 22:42) SBP 95(DEC 14:) 95(DEC 14:) 108(DEC 13 22:42) DBP 62(DEC 14 15:) L 53(DEC 13 22:42) 62(DEC 14:) Physical Exam General: Morbidly Obese. No acute distress. Alert and Appropriate Skin: No rash. Warm, Dry, Intact HEENT: Head is normocephalic and atraumatic. No lesions. Pupils equal in size. Extraocular movements within normal limits. Nose: No septal deviation. Mouth: Oropharynx mucosa is without lesion. Neck: Supple. No lymphadenopathy, thyromegaly noted. Lungs: Bilaterally diminished breath sounds with no crepitation or wheeze. Unlabored Cardiovascular: Heart is regular rhythm, S1S2, No extra-audible heart tones Abdomen: Abdomen is soft, nontender. Rounded/obese. Bowel sounds positive all four quadrants. Extremities: No clubbing, cyanosis or edema. Peripheral pulses palpable. No calf tenderness. Adequate peripheral circulation. Wound VAC and Isreal dressing to left lower extremity. Neurological: The patient is awake, oriented to time, people and place. Following simple commands, moving all extremities. Very weak Weight Dosing Weight: 209.8 kg (12/07/23) Dosing Weight: 209.8 kg (12/06/23) Medications Medications (43) Active Scheduled: (24) amLODIPine 10 mg tablet 10 mg 1 tab(s), Oral, qDay apixaban 5 mg tablet 5 mg 1 tab(s), Oral, BID busPIRone 15 mg Tablet 15 mg 1 tab(s), Oral, TID ceFAZolin bag 3 gram(s) 80 mL, IV Piggyback, q8hr clonazePAM 0.5 mg tablet 0.5 mg 1 tab(s), Oral, qHS famotidine 20 mg tablet 20 mg 1 tab(s), Oral, qHS furosemide 20 mg tablet 20 mg 1 tab(s), Oral, BID gabapentin 300 mg Capsule 600 mg 2 cap(s), Oral, BID isosorbide mononitrate 60 mg ER tablet 60 mg 1 tab(s), Oral, qAM lisinopril 10 mg tablet 10 mg 1 tab(s), Oral, qDay loratadine 10 mg Tablet 10 mg 1 tab(s), Oral, qDay menthol-zinc oxide topical ointment 4oz 1 chris, Topical, amhs methocarbamol 500 mg Tablet 1,000 mg 2 tab(s), Oral, QID miconazole topical 2% Powder 1 chris, Topical, BID Misc communication order lovenox dose, Miscellaneous, qDay mupirocin 2% Ointment 22 Gram(s) tube 1 chris, Nostril, each, BID olopatadine ophthalmic 0.2% Soln 2.5 mL 1 drop(s), Eyes, both, qDay polyethylene glycol 3350 - UD packet 17 gram(s) 15 mL, Oral, BID prazosin 1 mg Capsule 1 mg 1 cap(s), Oral, qHS QUEtiapine 300 mg tablet 300 mg 1 tab(s), Oral, qHS senna 8.6 mg Tablet 17.2 mg 2 tab(s), Oral, qDay sotalol 120 mg Tablet 120 mg 1 tab(s), Oral, BID topiramate 25 mg Sprinkle Capsule 50 mg 2 cap(s), Oral, qAM topiramate 25 mg Tablet 25 mg 1 tab(s), Oral, qPM Continuous: (0) PRN: (19) acetaminophen 325 mg Tablet 650 mg 2 tab(s), Oral, q4h acetaminophen-OXYcodone 325 mg-5 mg Tablet 1 tab(s), Oral, q4h acetaminophen-OXYcodone 325 mg-5 mg Tablet 2 tab(s), Oral, q4h albuterol - ipratropium 2.5 mg-0.5 mg/3 mL Inhal [place] UD 3 mL, Inhalation, q4hRT dextrose 50% Solution Disp syringe 50 mL 12.5 gram(s) 25 mL, IV Push, AsDirected dextrose 50% Solution Disp syringe 50 mL 12.5 gram(s) 25 mL, IV Push, AsDirected docusate sodium 100 mg Capsule 100 mg 1 cap(s), Oral, BID fluticasone nasal 0.05 mg/inh [place] 50 mcg 1 spray(s), Inhalation, BID hydromorphone 1 mg/mL (1mL) INJ 1 mg 1 mL, IV Push, q4h hydroxyzine hcl 25 mg tablet 25 mg 1 tab(s), Oral, q8h magnesium hydroxide 8% Suspension 30 mL UD 30 mL, Oral, qHS magnesium hydroxide 8% Suspension 30 mL UD 30 mL, Oral, qHS melatonin 3 mg tablet 3 mg 1 tab(s), Oral, qHS menthol-zinc oxide topical ointment 4oz 1 chris, Topical, BID morphine 4 mg/mL 1mL INJ 5 mg 1.25 mL, IV Push, q3h ondansetron 2 mg/ 1 mL 2 mL INJ 4 mg 2 mL, IV Push, q4h ondansetron 2 mg/ 1 mL 2 mL INJ 4 mg 2 mL, IV Push, q4h potassium chloride 10 mEq ER capsule 10 mEq 1 cap(s), Oral, qDay prochlorperazine 10 mg/2 mL vial 5 mg 1 mL, IV Push, q6h Lab Results 12/14 09:24 Hgb: 7.9 L Hct: 23.1 L 12/14 04:55 WBC: 7.4 Hgb: 7.3 L Hct: 21.9 L Platelet: 236 Neutrophil %: 57.9 Glucose Level: 107 Sodium Level: 136 Potassium Level: 4.2 BUN: 23.0 H Creatinine Lvl (s): 0.94 12/13 11:45 Hgb: 8.8 L Hct: 26.2 L 12/13 06:20 WBC: 8.3 Hgb: 8.8 L Hct: 26.3 L Platelet: 280 Neutrophil %: 68.3 EKG No qualifying data available. Assessment/Plan 1. Acute mechanical fall. 2. Acute comminuted, displaced and impacted fracture of the proximal tibial metadiaphysis with additional nondisplaced oblique fracture through the fibular head. 3. Acute blood loss anemia 4. Chronic paroxysmal atrial fibrillation on chronic anticoagulation with Eliquis. 5. Chronic heart failure with preserved ejection fraction and lymphedema. 6. Chronic essential hypertension. 7. Chronic hyperlipidemia. 8. Chronic anxiety and depression. 10. Morbid Obesity 11. Newly diagnosed elevated liver enzymes. Acute mechanical fall resulting in a acute comminuted, displaced and impacted fracture of the proximal tibial metadiaphysis with additional nondisplaced oblique fracture through the fibular head. -Ortho involved appreciate input -post application of external fixator on 12/07/2023. - S/P 12/13/2023 left knee spanning external fixator removal, Left tibia intramedullary nailing with open reduction internal fixation medial plate fixation and irrigation and debridement of 4 right leg wounds 2 x 2 centimeter wounds of skin, subcutaneous tissue, fascia, bone of external fixator pin sites. -Wound VAC management per orthopedics. Acute blood loss anemia. Patient is hemodynamically stable and asymptomatic. Repeat hemoglobin slightly improved. Continue to monitor. No indication of blood transfusion at this time. Acute pain related to above. Continue as needed pain medications. Per patient pain is controlled with medications at this time. Chronic paroxysmal atrial fibrillation with chronic anticoagulation apixaban -Apixaban has been resumed Morbid obesity complicating all aspects of care Continue all home medications Physical therapy and Occupational Therapy involved. Appreciate input. [facility] Awaiting pre-CERT. Discussed with social worker clinical. Plan of care discussed in depth with patient. Patient verbalizes understanding and is agreeable plan of care. Discussed with my collaborating physician Dr. Emmanuel Sun This dictation was performed using voice recognition software and may include grammatical and/or spelling errors Digitally Signed by MARIAJOSE CHAN on 12/15/2023 03:59 PM [facility] 12-15-2023 Orthopaedic surge ry Progress note Date of Service 12/15/2023 Chief Complaint Postop day 2 left tibial intramedullary nail and ORIF Subjective No acute events overnight. Patient was resting comfortably in bed. Patient states that her pain in her leg is much better at this time. She states that she is now having a little bit of pain over the lateral aspect of her thigh near her pinhole sites, But it is well-controlled. She denies any numbness, tingling, shortness of breath, chest pain. Objective Vitals and Measurements T: 36.8 C (Oral) TMIN: 36.6 C (Oral) TMAX: 37.2 C (Oral) HR: 67 RR: 18 BP: 104/61 SpO2: 98% Intake and Output 7AM Yesterday to 7AM Today Intake and Output (Last 24 hours) Intake Oral Intake 2100.00 Output Urine Voided 300.00 Urinary Catheter Output: 1525.00 Stool Count 0.00 Total Summary Total Intake 2100.00 Total Output 1825.00 Fluid Balance 275.00 Physical Exam General: NAD, A&Ox3 Psych: calm and cooperative Left lower extremity: -Dressing is clean dry and intact without signs of infection -Wound VAC in place with good seal -Skin pink and well perfused -Sensation intact to light touch L3-S1 -Gross motor function intact to dorsi/plantarflexion of ankle and toes -DP, TP pulses palpable -Compartments are soft and compressible -No calf tenderness Weight Dosing Weight: 209.8 kg (12/07/23) Dosing Weight: 209.8 kg (12/06/23) Medications Medications (44) Active Scheduled: (24) amLODIPine 10 mg tablet 10 mg 1 tab(s), Oral, qDay apixaban 5 mg tablet 5 mg 1 tab(s), Oral, BID busPIRone 15 mg Tablet 15 mg 1 tab(s), Oral, TID ceFAZolin bag 3 gram(s) 80 mL, IV Piggyback, q8hr clonazePAM 0.5 mg tablet 0.5 mg 1 tab(s), Oral, qHS famotidine 20 mg tablet 20 mg 1 tab(s), Oral, qHS furosemide 20 mg tablet 20 mg 1 tab(s), Oral, BID gabapentin 300 mg Capsule 600 mg 2 cap(s), Oral, BID isosorbide mononitrate 60 mg ER tablet 60 mg 1 tab(s), Oral, qAM lisinopril 10 mg tablet 10 mg 1 tab(s), Oral, qDay loratadine 10 mg Tablet 10 mg 1 tab(s), Oral, qDay menthol-zinc oxide topical ointment 4oz 1 chris, Topical, amhs methocarbamol 500 mg Tablet 1,000 mg 2 tab(s), Oral, QID miconazole topical 2% Powder 1 chris, Topical, BID Misc communication order lovenox dose, Miscellaneous, qDay mupirocin 2% Ointment 22 Gram(s) tube 1 chris, Nostril, each, BID olopatadine ophthalmic 0.2% Soln 2.5 mL 1 drop(s), Eyes, both, qDay polyethylene glycol 3350 - UD packet 17 gram(s) 15 mL, Oral, BID prazosin 1 mg Capsule 1 mg 1 cap(s), Oral, qHS QUEtiapine 300 mg tablet 300 mg 1 tab(s), Oral, qHS senna 8.6 mg Tablet 17.2 mg 2 tab(s), Oral, qDay sotalol 120 mg Tablet 120 mg 1 tab(s), Oral, BID topiramate 25 mg Sprinkle Capsule 50 mg 2 cap(s), Oral, qAM topiramate 25 mg Tablet 25 mg 1 tab(s), Oral, qPM Continuous: (1) Lactated Ringers 1,000 mL 1,000 mL, Intravenous, 125 mL/hr PRN: (19) acetaminophen 325 mg Tablet 650 mg 2 tab(s), Oral, q4h acetaminophen-OXYcodone 325 mg-5 mg Tablet 1 tab(s), Oral, q4h acetaminophen-OXYcodone 325 mg-5 mg Tablet 2 tab(s), Oral, q4h albuterol - ipratropium 2.5 mg-0.5 mg/3 mL Inhal [place] UD 3 mL, Inhalation, q4hRT dextrose 50% Solution Disp syringe 50 mL 12.5 gram(s) 25 mL, IV Push, AsDirected dextrose 50% Solution Disp syringe 50 mL 12.5 gram(s) 25 mL, IV Push, AsDirected docusate sodium 100 mg Capsule 100 mg 1 cap(s), Oral, BID fluticasone nasal 0.05 mg/inh [place] 50 mcg 1 spray(s), Inhalation, BID hydromorphone 1 mg/mL (1mL) INJ 1 mg 1 mL, IV Push, q4h hydroxyzine hcl 25 mg tablet 25 mg 1 tab(s), Oral, q8h magnesium hydroxide 8% Suspension 30 mL UD 30 mL, Oral, qHS magnesium hydroxide 8% Suspension 30 mL UD 30 mL, Oral, qHS melatonin 3 mg tablet 3 mg 1 tab(s), Oral, qHS menthol-zinc oxide topical ointment 4oz 1 chris, Topical, BID morphine 4 mg/mL 1mL INJ 5 mg 1.25 mL, IV Push, q3h ondansetron 2 mg/ 1 mL 2 mL INJ 4 mg 2 mL, IV Push, q4h ondansetron 2 mg/ 1 mL 2 mL INJ 4 mg 2 mL, IV Push, q4h potassium chloride 10 mEq ER capsule 10 mEq 1 cap(s), Oral, qDay prochlorperazine 10 mg/2 mL vial 5 mg 1 mL, IV Push, q6h Lab Results 12/14 04:55 WBC: 7.4 Hgb: 7.3 L Hct: 21.9 L Platelet: 236 Neutrophil %: 57.9 Glucose Level: 107 Sodium Level: 136 Potassium Level: 4.2 BUN: 23.0 H Creatinine Lvl (s): 0.94 12/13 11:45 Hgb: 8.8 L Hct: 26.2 L 12/13 06:20 WBC: 8.3 Hgb: 8.8 L Hct: 26.3 L Platelet: 280 Neutrophil %: 68.3 EKG No qualifying data available. Assessment/Plan Postoperative day #2 from a left tibial intramedullary nail and ORIF -PT/OT: Appreciate recommendations -SCDs and HIRAM castillo for DVT prophylaxis -Maintain dressing, reinforce as needed. May change if oversaturated -Maintain wound VAC -Medical management per hospitalist service -Case management consulted for discharge planning -Patient is stable from an orthopedic perspective at this time. Orthopedic surgery will sign off, please reach out to the on-call resident with any questions or concerns. -We will discuss with attending, Dr. Nye Digitally Signed by CYNTHIA GALLARDO DO on 12/15/2023 06:55 AM [facility] 12-15-2023 Orthopaedic surge ry Progress note Date of Service 12/15/2023 Chief Complaint Postop day 2 left tibial intramedullary nail and ORIF Subjective No acute events overnight. Patient was resting comfortably in bed. Patient states that her pain in her leg is much better at this time. She states that she is now having a little bit of pain over the lateral aspect of her thigh near her pinhole sites, But it is well-controlled. She denies any numbness, tingling, shortness of breath, chest pain. Objective Vitals and Measurements T: 36.8 C (Oral) TMIN: 36.6 C (Oral) TMAX: 37.2 C (Oral) HR: 67 RR: 18 BP: 104/61 SpO2: 98% Intake and Output 7AM Yesterday to 7AM Today Intake and Output (Last 24 hours) Intake Oral Intake 2100.00 Output Urine Voided 300.00 Urinary Catheter Output: 1525.00 Stool Count 0.00 Total Summary Total Intake 2100.00 Total Output 1825.00 Fluid Balance 275.00 Physical Exam General: NAD, A&Ox3 Psych: calm and cooperative Left lower extremity: -Dressing is clean dry and intact without signs of infection -Wound VAC in place with good seal -Skin pink and well perfused -Sensation intact to light touch L3-S1 -Gross motor function intact to dorsi/plantarflexion of ankle and toes -DP, TP pulses palpable -Compartments are soft and compressible -No calf tenderness Weight Dosing Weight: 209.8 kg (12/07/23) Dosing Weight: 209.8 kg (12/06/23) Medications Medications (44) Active Scheduled: (24) amLODIPine 10 mg tablet 10 mg 1 tab(s), Oral, qDay apixaban 5 mg tablet 5 mg 1 tab(s), Oral, BID busPIRone 15 mg Tablet 15 mg 1 tab(s), Oral, TID ceFAZolin bag 3 gram(s) 80 mL, IV Piggyback, q8hr clonazePAM 0.5 mg tablet 0.5 mg 1 tab(s), Oral, qHS famotidine 20 mg tablet 20 mg 1 tab(s), Oral, qHS furosemide 20 mg tablet 20 mg 1 tab(s), Oral, BID gabapentin 300 mg Capsule 600 mg 2 cap(s), Oral, BID isosorbide mononitrate 60 mg ER tablet 60 mg 1 tab(s), Oral, qAM lisinopril 10 mg tablet 10 mg 1 tab(s), Oral, qDay loratadine 10 mg Tablet 10 mg 1 tab(s), Oral, qDay menthol-zinc oxide topical ointment 4oz 1 chris, Topical, amhs methocarbamol 500 mg Tablet 1,000 mg 2 tab(s), Oral, QID miconazole topical 2% Powder 1 chris, Topical, BID Misc communication order lovenox dose, Miscellaneous, qDay mupirocin 2% Ointment 22 Gram(s) tube 1 chris, Nostril, each, BID olopatadine ophthalmic 0.2% Soln 2.5 mL 1 drop(s), Eyes, both, qDay polyethylene glycol 3350 - UD packet 17 gram(s) 15 mL, Oral, BID prazosin 1 mg Capsule 1 mg 1 cap(s), Oral, qHS QUEtiapine 300 mg tablet 300 mg 1 tab(s), Oral, qHS senna 8.6 mg Tablet 17.2 mg 2 tab(s), Oral, qDay sotalol 120 mg Tablet 120 mg 1 tab(s), Oral, BID topiramate 25 mg Sprinkle Capsule 50 mg 2 cap(s), Oral, qAM topiramate 25 mg Tablet 25 mg 1 tab(s), Oral, qPM Continuous: (1) Lactated Ringers 1,000 mL 1,000 mL, Intravenous, 125 mL/hr PRN: (19) acetaminophen 325 mg Tablet 650 mg 2 tab(s), Oral, q4h acetaminophen-OXYcodone 325 mg-5 mg Tablet 1 tab(s), Oral, q4h acetaminophen-OXYcodone 325 mg-5 mg Tablet 2 tab(s), Oral, q4h albuterol - ipratropium 2.5 mg-0.5 mg/3 mL Inhal [place] UD 3 mL, Inhalation, q4hRT dextrose 50% Solution Disp syringe 50 mL 12.5 gram(s) 25 mL, IV Push, AsDirected dextrose 50% Solution Disp syringe 50 mL 12.5 gram(s) 25 mL, IV Push, AsDirected docusate sodium 100 mg Capsule 100 mg 1 cap(s), Oral, BID fluticasone nasal 0.05 mg/inh [place] 50 mcg 1 spray(s), Inhalation, BID hydromorphone 1 mg/mL (1mL) INJ 1 mg 1 mL, IV Push, q4h hydroxyzine hcl 25 mg tablet 25 mg 1 tab(s), Oral, q8h magnesium hydroxide 8% Suspension 30 mL UD 30 mL, Oral, qHS magnesium hydroxide 8% Suspension 30 mL UD 30 mL, Oral, qHS melatonin 3 mg tablet 3 mg 1 tab(s), Oral, qHS menthol-zinc oxide topical ointment 4oz 1 chris, Topical, BID morphine 4 mg/mL 1mL INJ 5 mg 1.25 mL, IV Push, q3h ondansetron 2 mg/ 1 mL 2 mL INJ 4 mg 2 mL, IV Push, q4h ondansetron 2 mg/ 1 mL 2 mL INJ 4 mg 2 mL, IV Push, q4h potassium chloride 10 mEq ER capsule 10 mEq 1 cap(s), Oral, qDay prochlorperazine 10 mg/2 mL vial 5 mg 1 mL, IV Push, q6h Lab Results 12/14 04:55 WBC: 7.4 Hgb: 7.3 L Hct: 21.9 L Platelet: 236 Neutrophil %: 57.9 Glucose Level: 107 Sodium Level: 136 Potassium Level: 4.2 BUN: 23.0 H Creatinine Lvl (s): 0.94 / 11:45 Hgb: 8.8 L Hct: 26.2 L 12/13 06:20 WBC: 8.3 Hgb: 8.8 L Hct: 26.3 L Platelet: 280 Neutrophil %: 68.3 EKG No qualifying data available. Assessment/Plan Postoperative day #2 from a left tibial intramedullary nail and ORIF -PT/OT: Appreciate recommendations -SCDs and HIRAM castillo for DVT prophylaxis -Maintain dressing, reinforce as needed. May change if oversaturated -Maintain wound VAC -Medical management per hospitalist service -Case management consulted for discharge planning -Patient is stable from an orthopedic perspective at this time. Orthopedic surgery will sign off, please reach out to the on-call resident with any questions or concerns. -We will discuss with attending, Dr. Nye Digitally Signed by CYNTHIA GALLARDO DO on 12/15/2023 06:55 AM [facility] 12-14-2023 Note Date of Service 12/14/2023 Chief Complaint Fall Subjective No acute issues reported by nursing staff I saw the patient and she complains of excruciating pain to her right lower extremity. Tolerating oral intake, no nausea or vomitings. Objective Vitals and Measurements T: 36.6 C (Oral) TMIN: 36.2 C (Temporal Artery) TMAX: 36.6 C (Oral) HR: 79 RR: 16 BP: 115/84 SpO2: 97% Intake and Output 7AM Yesterday to 7AM Today Intake and Output (Last 24 hours) Intake Oral Intake 1320.00 Administration Information 2000.00 Output Urine Voided 600.00 Urinary Catheter Output: 1150.00 Stool Count 0.00 Total Summary Total Intake 3320.00 Total Output 1750.00 Fluid Balance 1570.00 Physical Exam GENERAL: Obese female sitting up in chair in no acute distress. HEENT: Mucous membranes pink and moist NEURO: Alert and oriented X 3 CVS: S1 & S2 audible, Regular Rate and Rhythm CHEST : No accesory muscle use, equal air entry bilaterally, no adventitious breath sounds GI: Normoactive BS, abdomen soft and non tender EXTREMITIES: Surgical dressing clean and dry, wound VAC in situ, no distal neurovascular deficits. Weight Dosing Weight: 209.8 kg (12/07/23) Dosing Weight: 209.8 kg (12/06/23) Medications Medications (43) Active Scheduled: (23) amLODIPine 10 mg tablet 10 mg 1 tab(s), Oral, qDay busPIRone 15 mg Tablet 15 mg 1 tab(s), Oral, TID ceFAZolin bag 3 gram(s) 80 mL, IV Piggyback, q8hr clonazePAM 0.5 mg tablet 0.5 mg 1 tab(s), Oral, qHS famotidine 20 mg tablet 20 mg 1 tab(s), Oral, qHS furosemide 20 mg tablet 20 mg 1 tab(s), Oral, BID gabapentin 300 mg Capsule 600 mg 2 cap(s), Oral, BID isosorbide mononitrate 60 mg ER tablet 60 mg 1 tab(s), Oral, qAM lisinopril 10 mg tablet 10 mg 1 tab(s), Oral, qDay loratadine 10 mg Tablet 10 mg 1 tab(s), Oral, qDay menthol-zinc oxide topical ointment 4oz 1 chris, Topical, amhs methocarbamol 500 mg Tablet 1,000 mg 2 tab(s), Oral, QID miconazole topical 2% Powder 1 chris, Topical, BID Misc communication order lovenox dose, Miscellaneous, qDay mupirocin 2% Ointment 22 Gram(s) tube 1 chris, Nostril, each, BID olopatadine ophthalmic 0.2% Soln 2.5 mL 1 drop(s), Eyes, both, qDay polyethylene glycol 3350 - UD packet 17 gram(s) 15 mL, Oral, BID prazosin 1 mg Capsule 1 mg 1 cap(s), Oral, qHS QUEtiapine 300 mg tablet 300 mg 1 tab(s), Oral, qHS senna 8.6 mg Tablet 17.2 mg 2 tab(s), Oral, qDay sotalol 120 mg Tablet 120 mg 1 tab(s), Oral, BID topiramate 25 mg Sprinkle Capsule 50 mg 2 cap(s), Oral, qAM topiramate 25 mg Tablet 25 mg 1 tab(s), Oral, qPM Continuous: (1) Lactated Ringers 1,000 mL 1,000 mL, Intravenous, 125 mL/hr PRN: (19) acetaminophen 325 mg Tablet 650 mg 2 tab(s), Oral, q4h acetaminophen-OXYcodone 325 mg-5 mg Tablet 1 tab(s), Oral, q4h acetaminophen-OXYcodone 325 mg-5 mg Tablet 2 tab(s), Oral, q4h albuterol - ipratropium 2.5 mg-0.5 mg/3 mL Inhal [place] UD 3 mL, Inhalation, q4hRT dextrose 50% Solution Disp syringe 50 mL 12.5 gram(s) 25 mL, IV Push, AsDirected dextrose 50% Solution Disp syringe 50 mL 12.5 gram(s) 25 mL, IV Push, AsDirected docusate sodium 100 mg Capsule 100 mg 1 cap(s), Oral, BID fluticasone nasal 0.05 mg/inh [place] 50 mcg 1 spray(s), Inhalation, BID hydromorphone 1 mg/mL (1mL) INJ 1 mg 1 mL, IV Push, q4h hydroxyzine hcl 25 mg tablet 25 mg 1 tab(s), Oral, q8h magnesium hydroxide 8% Suspension 30 mL UD 30 mL, Oral, qHS magnesium hydroxide 8% Suspension 30 mL UD 30 mL, Oral, qHS melatonin 3 mg tablet 3 mg 1 tab(s), Oral, qHS menthol-zinc oxide topical ointment 4oz 1 chris, Topical, BID morphine 4 mg/mL 1mL INJ 5 mg 1.25 mL, IV Push, q3h ondansetron 2 mg/ 1 mL 2 mL INJ 4 mg 2 mL, IV Push, q4h ondansetron 2 mg/ 1 mL 2 mL INJ 4 mg 2 mL, IV Push, q4h potassium chloride 10 mEq ER capsule 10 mEq 1 cap(s), Oral, qDay prochlorperazine 10 mg/2 mL vial 5 mg 1 mL, IV Push, q6h Lab Results 12/13 06:20 WBC: 8.3 Hgb: 8.8 L Hct: 26.3 L Platelet: 280 Neutrophil %: 68.3 12/12 04:56 WBC: 6.9 Hgb: 11.2 L Hct: 33.5 L Platelet: 248 Neutrophil %: 58.0 Glucose Level: 93 Sodium Level: 140 Potassium Level: 4.0 BUN: 18.0 Creatinine Lvl (s): 0.89 Imaging Results and Diagnostics XR Fluoro 2 Hrs Tech Time Result Date: December 13, 2023 Verified By: ARNIE NATION MD CLINICAL STATEMENT: IMPRESSION: Intraprocedural fluoroscopic spot images as above. See separate procedurereport for more information. XR Fluoro 1-2 Hrs Tech Time Result Date: December 07, 2023 Verified By: JHOAN CORBETT MD CLINICAL STATEMENT: IMPRESSION: Fluoroscopic time: 3 minutes 15.4 seconds Total dose (Reference Air Kerma): 49.56 MGy Number of fluoroscopic images: 24 Detail is limited. Please see intraoperative notes for additional details ofthe procedure. CT Pelvis w/o Contrast Result Date: December 06, 2023 Verified By: ARNIE NATION MD CLINICAL STATEMENT: IMPRESSION: Patient body habitus results in severe quantum mottle limiting some detail.In that context, no acute osseous abnormality is identified. I have personally reviewed the images of this examination and agree with theresident's findings and interpretation. CT Knee w/o Contrast Left Result Date: December 06, 2023 Verified By: ARNIE NATION MD CLINICAL STATEMENT: IMPRESSION: Comminuted, displaced, and impacted fracture of the proximal tibialmetadiaphysis. Additional nondisplaced oblique fracture through the fibularhead. No intra-articular extension is identified for either fracture. I have personally reviewed the images of this examination and agree with theresident's findings and interpretation. XR Chest 1 View Result Date: December 06, 2023 Verified By: ARNIE NATION MD CLINICAL STATEMENT: IMPRESSION: No acute radiographic findings. EKG No qualifying data available. Assessment/Plan 1. Fall 2. Comminuted fracture left tibia status post ORIF 3. Postop anemia 4. Transaminitis 5. History of atrial fibrillation on anticoagulation 6. History of heart failure preserved ejection fraction Plan: Patient is complaining of excruciating pain to her left lower extremity, on physical examination she really does not seem without much distress. Orthopedics is managing her pain meds so we will leave this up to her. I have encouraged limb elevation and ice pack as well. We need to be careful not to give her too much opioids as with her body habitus I am sure that there is some underlying component of OHS/PARAMJIT in this patient. Her hemoglobin this morning is 8.8 g/dL. Previously she was 11.2 g/dL. Will get repeat H&H now to ensure that her hemoglobin is stable, once hemoglobin is stable will resume her Eliquis Transaminitis initially elevated, these have normalized since hospitalization. Will follow-up with morning CMP Blood pressure stable Heart rate adequately controlled Awaiting pre-CERT for placement. Her medical readiness for discharge will depend on her hemoglobin being stable and her pain being adequately controlled. Digitally Signed by EMMANUEL SUN MD on 12/14/2023 11:28 AM [facility] 12-14-2023 Orthopaedic surge ry Progress note Date of Service 12/14/23 Chief Complaint POD 1 L Tibial ORIF Subjective Patient was resting comfortably in bed upon exam this morning. No acute events overnight. She states that she is still having a good amount of pain in her L knee area post-op. Patient was told that she would most likely have some pain in the knee moving forward from the surgery. Denies numbness, tingling, SOB, chest pain. Objective Vitals and Measurements T: 36.4 C (Oral) TMIN: 35.98 C TMAX: 36.8 C HR: 71 RR: 16 BP: 115/68 SpO2: 93% Intake and Output 7AM Yesterday to 7AM Today Intake and Output (Last 24 hours) Intake Oral Intake 600.00 Administration Information 3400.00 Output Urine Voided 300.00 Urinary Catheter Output: 1250.00 Intra-Op Urine Catheter 500.00 Intra-Op EBL 250.00 Stool Count 1.00 Total Summary Total Intake 4000.00 Total Output 2300.00 Fluid Balance 1700.00 Physical Exam LLE: - Wound vacs in place with good seal -Dressing is clean dry and intact without signs of infection -Skin pink and well perfused -Sensation intact to light touch L3-S1 -Gross motor function intact to dorsi/plantarflexion of ankle and toes -DP, TP pulses palpable -Compartments are soft and compressible -No calf tenderness Weight Dosing Weight: 209.8 kg (12/07/23) Dosing Weight: 209.8 kg (12/06/23) Medications Medications (42) Active Scheduled: (22) amLODIPine 10 mg tablet 10 mg 1 tab(s), Oral, qDay busPIRone 15 mg Tablet 15 mg 1 tab(s), Oral, TID clonazePAM 0.5 mg tablet 0.5 mg 1 tab(s), Oral, qHS famotidine 20 mg tablet 20 mg 1 tab(s), Oral, qHS furosemide 20 mg tablet 20 mg 1 tab(s), Oral, BID gabapentin 300 mg Capsule 600 mg 2 cap(s), Oral, BID isosorbide mononitrate 60 mg ER tablet 60 mg 1 tab(s), Oral, qAM lisinopril 10 mg tablet 10 mg 1 tab(s), Oral, qDay loratadine 10 mg Tablet 10 mg 1 tab(s), Oral, qDay menthol-zinc oxide topical ointment 4oz 1 chris, Topical, amhs methocarbamol 500 mg Tablet 1,000 mg 2 tab(s), Oral, QID miconazole topical 2% Powder 1 chris, Topical, BID Misc communication order lovenox dose, Miscellaneous, qDay mupirocin 2% Ointment 22 Gram(s) tube 1 chris, Nostril, each, BID olopatadine ophthalmic 0.2% Soln 2.5 mL 1 drop(s), Eyes, both, qDay polyethylene glycol 3350 - UD packet 17 gram(s) 15 mL, Oral, BID prazosin 1 mg Capsule 1 mg 1 cap(s), Oral, qHS QUEtiapine 300 mg tablet 300 mg 1 tab(s), Oral, qHS senna 8.6 mg Tablet 17.2 mg 2 tab(s), Oral, qDay sotalol 120 mg Tablet 120 mg 1 tab(s), Oral, BID topiramate 25 mg Sprinkle Capsule 50 mg 2 cap(s), Oral, qAM topiramate 25 mg Tablet 25 mg 1 tab(s), Oral, qPM Continuous: (1) Lactated Ringers 1,000 mL 1,000 mL, Intravenous, 125 mL/hr PRN: (19) acetaminophen 325 mg Tablet 650 mg 2 tab(s), Oral, q4h acetaminophen-OXYcodone 325 mg-5 mg Tablet 1 tab(s), Oral, q4h acetaminophen-OXYcodone 325 mg-5 mg Tablet 2 tab(s), Oral, q4h albuterol - ipratropium 2.5 mg-0.5 mg/3 mL Inhal [place] UD 3 mL, Inhalation, q4hRT dextrose 50% Solution Disp syringe 50 mL 12.5 gram(s) 25 mL, IV Push, AsDirected dextrose 50% Solution Disp syringe 50 mL 12.5 gram(s) 25 mL, IV Push, AsDirected docusate sodium 100 mg Capsule 100 mg 1 cap(s), Oral, BID fluticasone nasal 0.05 mg/inh [place] 50 mcg 1 spray(s), Inhalation, BID HYDROmorphone 0.5 mg/0.5 mL PF syringe 0.5 mg 0.5 mL, IV Push, q4h hydroxyzine hcl 25 mg tablet 25 mg 1 tab(s), Oral, q8h magnesium hydroxide 8% Suspension 30 mL UD 30 mL, Oral, qHS magnesium hydroxide 8% Suspension 30 mL UD 30 mL, Oral, qHS melatonin 3 mg tablet 3 mg 1 tab(s), Oral, qHS menthol-zinc oxide topical ointment 4oz 1 chris, Topical, BID morphine 4 mg/mL 1mL INJ 5 mg 1.25 mL, IV Push, q3h ondansetron 2 mg/ 1 mL 2 mL INJ 4 mg 2 mL, IV Push, q4h ondansetron 2 mg/ 1 mL 2 mL INJ 4 mg 2 mL, IV Push, q4h potassium chloride 10 mEq ER capsule 10 mEq 1 cap(s), Oral, qDay prochlorperazine 10 mg/2 mL vial 5 mg 1 mL, IV Push, q6h Lab Results 12/12 04:56 WBC: 6.9 Hgb: 11.2 L Hct: 33.5 L Platelet: 248 Neutrophil %: 58.0 Glucose Level: 93 Sodium Level: 140 Potassium Level: 4.0 BUN: 18.0 Creatinine Lvl (s): 0.89 EKG No qualifying data available. Assessment/Plan Postoperative day #1 status post L tibial ORIF -Weight-bear Nonweightbearing LLE -PT and OT -DVT prophylaxis with SCDs, HIRAM hose, chemoprophylaxis per primary team -will adjust pain medications - Keep wound vac in place -Medical management per hospitalist service -Case management consult for discharge planning -Discussed with Dr. Lopez Digitally Signed by CYNTHIA GALLARDO DO on 12/14/2023 05:46 AM [facility] 12-14-2023 Orthopaedic surge ry Progress note Date of Service 12/14/23 Chief Complaint POD 1 L Tibial ORIF Subjective Patient was resting comfortably in bed upon exam this morning. No acute events overnight. She states that she is still having a good amount of pain in her L knee area post-op. Patient was told that she would most likely have some pain in the knee moving forward from the surgery. Denies numbness, tingling, SOB, chest pain. Objective Vitals and Measurements T: 36.4 C (Oral) TMIN: 35.98 C TMAX: 36.8 C HR: 71 RR: 16 BP: 115/68 SpO2: 93% Intake and Output 7AM Yesterday to 7AM Today Intake and Output (Last 24 hours) Intake Oral Intake 600.00 Administration Information 3400.00 Output Urine Voided 300.00 Urinary Catheter Output: 1250.00 Intra-Op Urine Catheter 500.00 Intra-Op EBL 250.00 Stool Count 1.00 Total Summary Total Intake 4000.00 Total Output 2300.00 Fluid Balance 1700.00 Physical Exam LLE: - Wound vacs in place with good seal -Dressing is clean dry and intact without signs of infection -Skin pink and well perfused -Sensation intact to light touch L3-S1 -Gross motor function intact to dorsi/plantarflexion of ankle and toes -DP, TP pulses palpable -Compartments are soft and compressible -No calf tenderness Weight Dosing Weight: 209.8 kg (12/07/23) Dosing Weight: 209.8 kg (12/06/23) Medications Medications (42) Active Scheduled: (22) amLODIPine 10 mg tablet 10 mg 1 tab(s), Oral, qDay busPIRone 15 mg Tablet 15 mg 1 tab(s), Oral, TID clonazePAM 0.5 mg tablet 0.5 mg 1 tab(s), Oral, qHS famotidine 20 mg tablet 20 mg 1 tab(s), Oral, qHS furosemide 20 mg tablet 20 mg 1 tab(s), Oral, BID gabapentin 300 mg Capsule 600 mg 2 cap(s), Oral, BID isosorbide mononitrate 60 mg ER tablet 60 mg 1 tab(s), Oral, qAM lisinopril 10 mg tablet 10 mg 1 tab(s), Oral, qDay loratadine 10 mg Tablet 10 mg 1 tab(s), Oral, qDay menthol-zinc oxide topical ointment 4oz 1 chris, Topical, amhs methocarbamol 500 mg Tablet 1,000 mg 2 tab(s), Oral, QID miconazole topical 2% Powder 1 chris, Topical, BID Misc communication order lovenox dose, Miscellaneous, qDay mupirocin 2% Ointment 22 Gram(s) tube 1 chris, Nostril, each, BID olopatadine ophthalmic 0.2% Soln 2.5 mL 1 drop(s), Eyes, both, qDay polyethylene glycol 3350 - UD packet 17 gram(s) 15 mL, Oral, BID prazosin 1 mg Capsule 1 mg 1 cap(s), Oral, qHS QUEtiapine 300 mg tablet 300 mg 1 tab(s), Oral, qHS senna 8.6 mg Tablet 17.2 mg 2 tab(s), Oral, qDay sotalol 120 mg Tablet 120 mg 1 tab(s), Oral, BID topiramate 25 mg Sprinkle Capsule 50 mg 2 cap(s), Oral, qAM topiramate 25 mg Tablet 25 mg 1 tab(s), Oral, qPM Continuous: (1) Lactated Ringers 1,000 mL 1,000 mL, Intravenous, 125 mL/hr PRN: (19) acetaminophen 325 mg Tablet 650 mg 2 tab(s), Oral, q4h acetaminophen-OXYcodone 325 mg-5 mg Tablet 1 tab(s), Oral, q4h acetaminophen-OXYcodone 325 mg-5 mg Tablet 2 tab(s), Oral, q4h albuterol - ipratropium 2.5 mg-0.5 mg/3 mL Inhal [place] UD 3 mL, Inhalation, q4hRT dextrose 50% Solution Disp syringe 50 mL 12.5 gram(s) 25 mL, IV Push, AsDirected dextrose 50% Solution Disp syringe 50 mL 12.5 gram(s) 25 mL, IV Push, AsDirected docusate sodium 100 mg Capsule 100 mg 1 cap(s), Oral, BID fluticasone nasal 0.05 mg/inh [place] 50 mcg 1 spray(s), Inhalation, BID HYDROmorphone 0.5 mg/0.5 mL PF syringe 0.5 mg 0.5 mL, IV Push, q4h hydroxyzine hcl 25 mg tablet 25 mg 1 tab(s), Oral, q8h magnesium hydroxide 8% Suspension 30 mL UD 30 mL, Oral, qHS magnesium hydroxide 8% Suspension 30 mL UD 30 mL, Oral, qHS melatonin 3 mg tablet 3 mg 1 tab(s), Oral, qHS menthol-zinc oxide topical ointment 4oz 1 chris, Topical, BID morphine 4 mg/mL 1mL INJ 5 mg 1.25 mL, IV Push, q3h ondansetron 2 mg/ 1 mL 2 mL INJ 4 mg 2 mL, IV Push, q4h ondansetron 2 mg/ 1 mL 2 mL INJ 4 mg 2 mL, IV Push, q4h potassium chloride 10 mEq ER capsule 10 mEq 1 cap(s), Oral, qDay prochlorperazine 10 mg/2 mL vial 5 mg 1 mL, IV Push, q6h Lab Results 12/12 04:56 WBC: 6.9 Hgb: 11.2 L Hct: 33.5 L Platelet: 248 Neutrophil %: 58.0 Glucose Level: 93 Sodium Level: 140 Potassium Level: 4.0 BUN: 18.0 Creatinine Lvl (s): 0.89 EKG No qualifying data available. Assessment/Plan Postoperative day #1 status post L tibial ORIF -Weight-bear Nonweightbearing LLE -PT and OT -DVT prophylaxis with SCDs, HIRAM hose, chemoprophylaxis per primary team -will adjust pain medications - Keep wound vac in place -Medical management per hospitalist service -Case management consult for discharge planning -Discussed with Dr. Lopez Digitally Signed by CYNTHIA GALLARDO DO on 12/14/2023 05:46 AM [facility] 12-13-2023 Note ORIGINAL EXAMINATION: SPOT FLUOROSCOPIC IMAGES 12/13/2023 3:45 pm TECHNIQUE: Fluoroscopy was provided by the radiology department for procedure. Radiologist was not present during examination. FLUOROSCOPY DOSE AND TYPE: Radiation Exposure Index: 23.973 mGy, 181.7 seconds, 24 images COMPARISON: 12/06/2023 HISTORY: ORDERING SYSTEM PROVIDED HISTORY: Reason for Exam: LT TIBIA FX Intraprocedural imaging. FINDINGS: Spot intraoperative images are obtained demonstrating placement of an intramedullary nail in the tibia with proximal and distal locking screws as well as a medial fixation plate and screws in the proximal to mid tibia. IMPRESSION: Intraprocedural fluoroscopic spot images as above. See separate procedure report for more information. Interpreted by: Arnie Nation Preliminary Report By: Arnie Nation Electronically signed By Arnie Nation Dictated Date: 12/13/2023 4:48:48 PM Prelim Date: 12/13/2023 4:50:45 PM Sign Date: 12/13/2023 4:50:45 PM Ordering Provider: CLARENCE LOPEZ [facility] 12-13-2023 Anesthesiology Consult note Patient: QUINTEN YARBROUGH Age: 53 years Sex: Female : 1970 Associated Diagnoses: None Author: CHASITY ZALDIVAR DO Postoperative Information Post Operative Info: Post op day: Post Anesthesia Care Unit. Patient location: PACU. Assessment Postanesthesia assessment Vitals. Mental status: at preoperative baseline. Respiratory function: respirations are non-labored, Stable. Respiratory support: none. CV function: Stable. Cardiovascular support: none. Pain: Satisfactory. Nausea status: Satisfactory. Postoperative hydration status: within normal limits. Notes: Patient is sufficiently recovered from anesthesia to participate in the evaluation. No follow-up care needed. No complications post-anesthesia.. Digitally Signed by CHASITY ZALDIVAR DO on 12/13/2023 12:41 PM [facility] 12-13-2023 Anesthesiology Consult note Patient: QUINTEN YARBROUGH Age: 53 years Sex: Female : 1970 Associated Diagnoses: None Author: DINA AEST MD Preoperative Information NPO > 8 hrs Anesthesia history Patient's history: negative. Family's history: negative. History of Present Illness The patient presents for preanesthesia evaluation with 53yoF with PMH atrial fibrillation on Eliquis, bipolar, morbid obesity, heart failure with preserved ejection fraction, hypothyroidism, ovarian cancer, hypertension, PARAMJIT not on CPAP, gastric bypass presenting for LLE ex fix removal and ORIF. Patient denies recent CP, SOB, NVD, GERD symptoms.. Review of Systems Ear/Nose/Mouth/Throat: Negative except as documented in history of present illness. Respiratory: Negative except as documented in history of present illness. Cardiovascular: Negative except as documented in history of present illness. Gastrointestinal: Negative except as documented in history of present illness. Genitourinary: Negative except as documented in history of present illness. Endocrine: Negative except as documented in history of present illness. Musculoskeletal: Negative except as documented in history of present illness. Integumentary: Negative except as documented in history of present illness. Neurologic: Negative except as documented in history of present illness. Health Status Allergies: Allergic Reactions (Selected) Severe Augmentin- Swelling of throat and hives. Contrast Dye(s)- Hives and swelling of throat. Severity Not Documented Amoxicillin- Unspecified. Amoxicillin-clavulanate- Unknown. Augmentin XR- Unspecified. Iodine- Unspecified., Allergies (6) ActiveReaction AugmentinHives Contrast Dye(s)Hives amoxicillinunspecified amoxicillin-clavulanateUnknown Augmentin XRunspecified iodineunspecified Current medications: (Selected) Inpatient Medications Ordered Ancef: 3 gram(s), 80 mL, 240 mL/hr, IV Piggyback, PREOP pharm Calmoseptine or equivalent topical ointment: 1 chris, Topical, BID, PRN: Diaper rash Calmoseptine or equivalent topical ointment: 1 chris, Topical, amhs Claritin: 10 mg, 1 tab(s), Oral, qDay Colace: 100 mg, 1 cap(s), Oral, BID, PRN: Constipation Dextrose 50% IV Push: 12.5 gram(s), 25 mL, IV Push, AsDirected, PRN: Hypoglycemia Dilaudid: 0.5 mg, 0.5 mL, IV Push, q4h, PRN: Pain, breakthrough DuoNeb: 3 mL, Inhalation, q4hRT, PRN: Shortness of breath or wheezing KlonoPIN: 0.5 mg, 1 tab(s), Oral, qHS Lasix: 20 mg, 1 tab(s), Oral, BID Milk of Magnesia: 30 mL, Oral, qHS, PRN: Constipation Minipress: 1 mg, 1 cap(s), Oral, qHS Miralax Powder Packet: 17 gram(s), 15 mL, Oral, BID [place] 0.2% ophthalmic solution: 1 drop(s), Eyes, both, qDay Pepcid: 20 mg, 1 tab(s), Oral, qHS Percocet 325/5: 1 tab(s), Oral, q4h, PRN: Pain, scale 4-6 Percocet 325/5: 2 tab(s), Oral, q4h, PRN: Pain, scale 7-10 Pharmacy See ORDER COMMENTS: lovenox dose, Miscellaneous, qDay QUEtiapine: 300 mg, 1 tab(s), Oral, qHS Robaxin: 1,000 mg, 2 tab(s), Oral, QID Tylenol: 650 mg, 2 tab(s), Oral, q4h, PRN: Pain, scale 1-3 Zofran: 4 mg, 2 mL, IV Push, q4h, PRN: Nausea/Vomiting amLODIPine: 10 mg, 1 tab(s), Oral, qDay busPIRone: 15 mg, 1 tab(s), Oral, TID fluticasone 50 mcg/inh NASAL spray: 50 mcg, 1 spray(s), Inhalation, BID, PRN: Allergy symptoms gabapentin: 600 mg, 2 cap(s), Oral, BID hydrOXYzine hydrochloride 25 mg oral tablet: 25 mg, 1 tab(s), Oral, q8h, PRN: Itching isosorbide mononitrate 60 mg oral tablet, extended release: 60 mg, 1 tab(s), Oral, qAM lisinopril: 10 mg, 1 tab(s), Oral, qDay melatonin: 3 mg, 1 tab(s), Oral, qHS, PRN: Sleep miconazole 2% topical powder: 1 chris, Topical, BID mupirocin 2% topical ointment: 1 chris, Nostril, each, BID pantoprazole: 20 mg, 1 tab(s), Oral, qDayAC potassium chloride 10 mEq oral capsule, extended release: 10 mEq, 1 cap(s), Oral, qDay, PRN: Control symptoms prochlorperazine: 5 mg, 1 mL, IV Push, q6h, PRN: Nausea/Vomiting senna: 17.2 mg, 2 tab(s), Oral, qDay sotalol 120 mg oral tablet: 120 mg, 1 tab(s), Oral, BID topiramate: 25 mg, 1 tab(s), Oral, qPM topiramate: 50 mg, 2 cap(s), Oral, qAM Suspended Eliquis: 5 mg, 1 tab(s), Oral, BID Prescriptions Prescribed Percocet 5 mg-325 mg oral tablet: 1 tab(s), Oral, q6h, for 7 day(s), PRN: Pain, 28 tab(s), 0 Refill(s) Documented Medications Documented Eliquis 5 mg oral tablet: 5 mg, 1 tab(s), Oral, BID KlonoPIN 0.5 mg oral tablet: 0.5 mg, 1 tab(s), Oral, qHS, 0 Refill(s) Lasix 20 mg oral tablet: 20 mg, 1 tab(s), Oral, BID, 0 Refill(s) Minipress 1 mg oral capsule: 1 mg, 1 cap(s), Oral, qHS, 0 Refill(s) [place] 0.2% ophthalmic solution: 1 drop(s), Eyes, both, qDay QUEtiapine 300 mg oral tablet: 300 mg, 1 tab(s), Oral, qHS, 0 Refill(s) amLODIPine 10 mg oral tablet: 10 mg, 1 tab(s), Oral, qDay atorvastatin 10 mg oral tablet: 10 mg, 1 tab(s), Oral, qDay busPIRone 15 mg oral tablet: 15 mg, 1 tab(s), Oral, TID fluticasone proprionate NASAL 50 mcg/ spray: 50 mcg, 1 spray(s), Inhalation, BID, PRN: as needed for allergy symptoms gabapentin 300 mg oral capsule: 600 mg, 2 cap(s), Oral, BID, 0 Refill(s) hydrOXYzine hydrochloride 25 mg oral tablet: 25 mg, 1 tab(s), Oral, q8h, PRN: as needed for itching isosorbide mononitrate 60 mg oral tablet, extended release: 60 mg, 1 tab(s), Oral, qAM levocetirizine 5 mg oral tablet: 5 mg, 1 tab(s), Oral, qPM lisinopril 10 mg oral tablet: 10 mg, 1 tab(s), Oral, qDay, 0 Refill(s) omeprazole 20 mg oral delayed release capsule: 20 mg, 1 cap(s), Oral, qDayAC potassium chloride 10 mEq oral capsule, extended release: 10 mEq, 1 cap(s), Oral, qDay, PRN: Control symptoms sotalol 120 mg oral tablet: 120 mg, 1 tab(s), Oral, BID topiramate 25 mg oral capsule: 50 mg, 2 cap(s), Oral, qAM topiramate 25 mg oral tablet: 25 mg, 1 tab(s), Oral, qPM, 0 Refill(s), Medications (39) Active Scheduled: (24) amLODIPine 10 mg tablet 10 mg 1 tab(s), Oral, qDay busPIRone 15 mg Tablet 15 mg 1 tab(s), Oral, TID ceFAZolin bag 3 gram(s) 80 mL, IV Piggyback, PREOP pharm clonazePAM 0.5 mg tablet 0.5 mg 1 tab(s), Oral, qHS famotidine 20 mg tablet 20 mg 1 tab(s), Oral, qHS furosemide 20 mg tablet 20 mg 1 tab(s), Oral, BID gabapentin 300 mg Capsule 600 mg 2 cap(s), Oral, BID isosorbide mononitrate 60 mg ER tablet 60 mg 1 tab(s), Oral, qAM lisinopril 10 mg tablet 10 mg 1 tab(s), Oral, qDay loratadine 10 mg Tablet 10 mg 1 tab(s), Oral, qDay menthol-zinc oxide topical ointment 4oz 1 chris, Topical, amhs methocarbamol 500 mg Tablet 1,000 mg 2 tab(s), Oral, QID miconazole topical 2% Powder 1 chris, Topical, BID Misc communication order lovenox dose, Miscellaneous, qDay mupirocin 2% Ointment 22 Gram(s) tube 1 chris, Nostril, each, BID olopatadine ophthalmic 0.2% Soln 2.5 mL 1 drop(s), Eyes, both, qDay pantoprazole 20 mg EC tablet 20 mg 1 tab(s), Oral, qDayAC polyethylene glycol 3350 - UD packet 17 gram(s) 15 mL, Oral, BID prazosin 1 mg Capsule 1 mg 1 cap(s), Oral, qHS QUEtiapine 300 mg tablet 300 mg 1 tab(s), Oral, qHS senna 8.6 mg Tablet 17.2 mg 2 tab(s), Oral, qDay sotalol 120 mg Tablet 120 mg 1 tab(s), Oral, BID topiramate 25 mg Sprinkle Capsule 50 mg 2 cap(s), Oral, qAM topiramate 25 mg Tablet 25 mg 1 tab(s), Oral, qPM Continuous: (0) PRN: (15) acetaminophen 325 mg Tablet 650 mg 2 tab(s), Oral, q4h acetaminophen-OXYcodone 325 mg-5 mg Tablet 1 tab(s), Oral, q4h acetaminophen-OXYcodone 325 mg-5 mg Tablet 2 tab(s), Oral, q4h albuterol - ipratropium 2.5 mg-0.5 mg/3 mL Inhal [place] UD 3 mL, Inhalation, q4hRT dextrose 50% Solution Disp syringe 50 mL 12.5 gram(s) 25 mL, IV Push, AsDirected docusate sodium 100 mg Capsule 100 mg 1 cap(s), Oral, BID fluticasone nasal 0.05 mg/inh [place] 50 mcg 1 spray(s), Inhalation, BID HYDROmorphone 0.5 mg/0.5 mL PF syringe 0.5 mg 0.5 mL, IV Push, q4h hydroxyzine hcl 25 mg tablet 25 mg 1 tab(s), Oral, q8h magnesium hydroxide 8% Suspension 30 mL UD 30 mL, Oral, qHS melatonin 3 mg tablet 3 mg 1 tab(s), Oral, qHS menthol-zinc oxide topical ointment 4oz 1 chris, Topical, BID ondansetron 2 mg/ 1 mL 2 mL INJ 4 mg 2 mL, IV Push, q4h potassium chloride 10 mEq ER capsule 10 mEq 1 cap(s), Oral, qDay prochlorperazine 10 mg/2 mL vial 5 mg 1 mL, IV Push, q6h Problem list: Medical Atrial fibrillation / SNOMED CT 37827753 / Confirmed BIPOLAR DISORDER / SNOMED CT 52531728 / Confirmed Bipolar 1 disorder / SNOMED CT 7421018881 / Confirmed Chest pain / SNOMED CT 37117653 / Confirmed CHF (congestive heart failure) / SNOMED CT 55438440 / Confirmed DEPRESSION (Renamed from BLUES) / SNOMED CT 75894138 / Confirmed SOB (SHORTNESS OF BREATH) ON EXERTION / SNOMED CT 909506561 / Confirmed HYPERTENSION, UNSPECIFIED (Renamed from ESSENTIAL (PRIMARY) HYPERTENSION) / SNOMED CT 54517092 / Confirmed Gastric bypass / SNOMED CT 8816458221 / Confirmed GASTROESOPHAGEAL REFLUX DISEASE, ESOPHAGITIS PRESENCE NOT SPECIFIED / SNOMED CT 668247835 / Confirmed heart catheterization / Complaint of HTN - Hypertension / SNOMED CT 0150615865 / Complaint of HYPOTHYROIDISM (Renamed from ADULT HYPOTHYROIDISM) / SNOMED CT 52924262 / Confirmed Hysterectomy / SNOMED CT 065834702 / Confirmed MORBID OBESITY WITH BMI OF 70 AND OVER, ADULT / SNOMED CT 274370223 / Confirmed MRSA R breast, HTN, depression / Complaint of PARAMJIT (obstructive sleep apnea) / SNOMED CT 320101404 / Confirmed Ovarian cancer, disseminated / SNOMED CT 5005574255 / Complaint of INCREASED BMI (Renamed from OVERWEIGHT) / SNOMED CT 566781276 / Confirmed Palpitations / SNOMED CT 663677867 / Confirmed PAROXYSMAL ATRIAL FIBRILLATION / SNOMED CT 343813586 / Confirmed Inactive: CHEST PAIN / ICD-9-CM 786.5 Canceled: Anxiety / SNOMED CT 73421021 Canceled: chest pain Canceled: CHEST PAIN / ICD-9-CM 786.5, Active Problems (21) Atrial fibrillation Bipolar 1 disorder BIPOLAR DISORDER Chest pain CHF (congestive heart failure) DEPRESSION (Renamed from BLUES) Gastric bypass GASTROESOPHAGEAL REFLUX DISEASE, ESOPHAGITIS PRESENCE NOT SPECIFIED heart catheterization HTN - Hypertension HYPERTENSION, UNSPECIFIED (Renamed from ESSENTIAL (PRIMARY) HYPERTENSION) HYPOTHYROIDISM (Renamed from ADULT HYPOTHYROIDISM) Hysterectomy INCREASED BMI (Renamed from OVERWEIGHT) MORBID OBESITY WITH BMI OF 70 AND OVER, ADULT MRSA R breast, HTN, depression PARAMJIT (obstructive sleep apnea) Ovarian cancer, disseminated Palpitations PAROXYSMAL ATRIAL FIBRILLATION SOB (SHORTNESS OF BREATH) ON EXERTION Histories Past Medical History: Active CHF (congestive heart failure) (88588672) Chest pain (73658462) Procedure history: Rotator cuff repair (722225054). Cardiac catheterization (90893873). Cholecystectomy (84937018). Appendectomy (392137913). Hysterectomy (078674414). Gastric bypass (8285563924). Social History Social & Psychosocial Habits Alcohol 06/25/2023 Use: None Substance Abuse 06/25/2023 Use: Never Tobacco 06/25/2023 Tobacco Use: Never (less than 100 in l Nutrition/Health 06/25/2023 Caffeine intake amount: 2 cups per day . Physical Examination Vital Signs(last 24 hrs) Last Charted Temp Oral36.4 DegC (DEC 11 22:47) YGJ173 mmHg (DEC 11 22:47) DBP76 mmHg (DEC 11 22:47) BMI76.97 (DEC 12 04:10) Measurements from flowsheet : Measurements 12/13/2023 4:10 EDT Body Mass Index 76.97 kg/m2 General: Alert and oriented, No acute distress. Airway: Normal temporomandibular joint mobility, Normal mouth, Normal neck range of motion. Mallampati classification: I (soft palate, fauces, uvula, pillars visible). Dentition Evaluation: Intact, Own teeth. Respiratory: Lungs are clear to auscultation. Cardiovascular: Normal rate, Regular rhythm. Heart Sounds: Normal. Neurologic: Alert, Oriented, No focal deficits. Review / Management Results review: Labs (Last four charted values) WBC 6.9(DEC 12)7.5(DEC 11)6.5(DEC 08)6.8(DEC 07) Hgb L 11.2(DEC 12)L 10.7(DEC 11)L 10.3(DEC 08)L 11.2(DEC 07) Hct L 33.5(DEC 12)L 31.9(DEC 11)L 30.9(DEC 08)L 33.5(DEC 07) Plt 248(DEC 12)230(DEC 11)194(DEC 08)195(DEC 07) Na 140(DEC 12)139(DEC 11)140(DEC 08)142(DEC 07) K 4.0(DEC 12)3.8(DEC 11)3.9(DEC 08)4.3(DEC 07) CO2 29(DEC 12)27(DEC 11)28(DEC 08)29(DEC 07) Cl 106(DEC 12)110(DEC 11)H 112(DEC 08)109(DEC 06) Cr 0.89(DEC 12)0.71(DEC 11)0.71(DEC 08)0.71(DEC 07) BUN 18.0(DEC 12)18.0(DEC 11)13.0(DEC 08)15.0(DEC 07) Glucose 93(DEC 12)100(DEC 11)94(DEC 07)107(DEC 06) Mg 2.1(DEC 11)1.8(DEC 08)1.9(DEC 07) Ca L 8.6(DEC 12)L 8.5(DEC 11)L 8.1(DEC 08)L 8.3(DEC 07) PT 13.7(DEC 11)11.8(DEC 05)12.0(DEC 05) INR 1.2(DEC 11)1.0(DEC 05)1.0(DEC 05) PTT H 38.8(DEC 05) . Documentation reviewed: Current records. Assessment and Plan [place] [employer] (ASA) physical status classification: Class III. Anesthetic Preoperative Plan Premedication: intravenous. Anesthetic technique: General. Induction: intravenously. Maintenance airway: Oral endotracheal tube. Postoperative pain management: Per surgeon. Risks discussed: nausea, vomiting, sore throat, dental injury, hypotension, allergic reaction, serious complications. Informed consent: signed by patient. Digitally Signed by DINA EAST MD on 12/15/2023 11:16 AM [facility] 12-12-2023 Note SINUS RHYTHM Electronic Signature: SONG HERNDON MD 12/15/2023 21:28:07 [facility] 12-12-2023 Orthopaedic surge ry Progress note Date of Service 12/12/2023 Subjective Patient seen and examined. Resting comfortably bed. Her pain is well-controlled. No acute overnight events Objective Vitals and Measurements T: 36.8 C (Oral) TMIN: 36.7 C (Oral) TMAX: 36.8 C (Oral) HR: 64 RR: 18 BP: 102/73 SpO2: 96% Intake and Output 7AM Yesterday to 7AM Today Intake and Output (Last 24 hours) Intake Oral Intake 1800.00 Output Urinary Catheter Output: 2250.00 Stool Count 1.00 Total Summary Total Intake 1800.00 Total Output 2250.00 Fluid Balance -450.00 Physical Exam General: Alert and oriented x 3, no acute distress Left lower extremity: Ex-Fix is in appropriate alignment, there is no pin site drainage noted Compartment soft and compressible Patient is able to actively flex extend her toes, no pain with passive stretch of toes EHL/FHL/TA/GS intact Sensation tact light touch L4-S1 2+ dorsalis pedis pulse Weight Dosing Weight: 209.8 kg (12/07/23) Dosing Weight: 209.8 kg (12/06/23) Medications Medications (37) Active Scheduled: (23) amLODIPine 10 mg tablet 10 mg 1 tab(s), Oral, qDay busPIRone 15 mg Tablet 15 mg 1 tab(s), Oral, TID clonazePAM 0.5 mg tablet 0.5 mg 1 tab(s), Oral, qHS enoxaparin 150 mg/mL syringe 150 mg 1 mL, Subcutaneous, q12h famotidine 20 mg tablet 20 mg 1 tab(s), Oral, qHS furosemide 20 mg tablet 20 mg 1 tab(s), Oral, BID gabapentin 300 mg Capsule 600 mg 2 cap(s), Oral, BID isosorbide mononitrate 60 mg ER tablet 60 mg 1 tab(s), Oral, qAM lisinopril 10 mg tablet 10 mg 1 tab(s), Oral, qDay loratadine 10 mg Tablet 10 mg 1 tab(s), Oral, qDay menthol-zinc oxide topical ointment 4oz 1 chris, Topical, amhs methocarbamol 500 mg Tablet 1,000 mg 2 tab(s), Oral, QID miconazole topical 2% Powder 1 chris, Topical, BID Misc communication order lovenox dose, Miscellaneous, qDay olopatadine ophthalmic 0.2% Soln 2.5 mL 1 drop(s), Eyes, both, qDay pantoprazole 20 mg EC tablet 20 mg 1 tab(s), Oral, qDayAC polyethylene glycol 3350 - UD packet 17 gram(s) 15 mL, Oral, BID prazosin 1 mg Capsule 1 mg 1 cap(s), Oral, qHS QUEtiapine 300 mg tablet 300 mg 1 tab(s), Oral, qHS senna 8.6 mg Tablet 17.2 mg 2 tab(s), Oral, qDay sotalol 120 mg Tablet 120 mg 1 tab(s), Oral, BID topiramate 25 mg Sprinkle Capsule 50 mg 2 cap(s), Oral, qAM topiramate 25 mg Tablet 25 mg 1 tab(s), Oral, qPM Continuous: (0) PRN: (14) acetaminophen 325 mg Tablet 650 mg 2 tab(s), Oral, q4h acetaminophen-OXYcodone 325 mg-5 mg Tablet 1 tab(s), Oral, q4h acetaminophen-OXYcodone 325 mg-5 mg Tablet 2 tab(s), Oral, q4h albuterol - ipratropium 2.5 mg-0.5 mg/3 mL Inhal [place] UD 3 mL, Inhalation, q4hRT dextrose 50% Solution Disp syringe 50 mL 12.5 gram(s) 25 mL, IV Push, AsDirected docusate sodium 100 mg Capsule 100 mg 1 cap(s), Oral, BID fluticasone nasal 0.05 mg/inh [place] 50 mcg 1 spray(s), Inhalation, BID hydroxyzine hcl 25 mg tablet 25 mg 1 tab(s), Oral, q8h magnesium hydroxide 8% Suspension 30 mL UD 30 mL, Oral, qHS melatonin 3 mg tablet 3 mg 1 tab(s), Oral, qHS menthol-zinc oxide topical ointment 4oz 1 chris, Topical, BID ondansetron 2 mg/ 1 mL 2 mL INJ 4 mg 2 mL, IV Push, q4h potassium chloride 10 mEq ER capsule 10 mEq 1 cap(s), Oral, qDay prochlorperazine 10 mg/2 mL vial 5 mg 1 mL, IV Push, q6h Lab Results 12/11 04:36 WBC: 7.5 Hgb: 10.7 L Hct: 31.9 L Platelet: 230 Neutrophil %: 59.7 Glucose Level: 100 Sodium Level: 139 Potassium Level: 3.8 BUN: 18.0 Creatinine Lvl (s): 0.71 Imaging Results and Diagnostics XR Fluoro 1-2 Hrs Tech Time Result Date: December 07, 2023 Verified By: JHOAN CORBETT MD CLINICAL STATEMENT: IMPRESSION: Fluoroscopic time: 3 minutes 15.4 seconds Total dose (Reference Air Kerma): 49.56 MGy Number of fluoroscopic images: 24 Detail is limited. Please see intraoperative notes for additional details ofthe procedure. CT Pelvis w/o Contrast Result Date: December 06, 2023 Verified By: ARNIE NATION MD CLINICAL STATEMENT: IMPRESSION: Patient body habitus results in severe quantum mottle limiting some detail.In that context, no acute osseous abnormality is identified. I have personally reviewed the images of this examination and agree with theresident's findings and interpretation. CT Knee w/o Contrast Left Result Date: December 06, 2023 Verified By: ARNIE NATION MD CLINICAL STATEMENT: IMPRESSION: Comminuted, displaced, and impacted fracture of the proximal tibialmetadiaphysis. Additional nondisplaced oblique fracture through the fibularhead. No intra-articular extension is identified for either fracture. I have personally reviewed the images of this examination and agree with theresident's findings and interpretation. XR Chest 1 View Result Date: December 06, 2023 Verified By: ARNIE NATION MD CLINICAL STATEMENT: IMPRESSION: No acute radiographic findings. EKG No qualifying data available. Assessment/Plan Fall Closed left proximal tibia fracture -I explained to the patient the need for surgical intervention to prevent major morbidity mortality with nonoperative treatment. Patient voiced understanding and was agreeable to proceed. -Will obtain informed consent and plan for left tibia IM nail versus open reduction internal fixation of left tibia versus cast application with Dr. Lopez on 12/13/2023. -Hold any chemical DVT prophylaxis at this time - will order SCDs -Pain control -Percocet/morphine -Bedrest, NWB left lower extremity -N.p.o. at midnight -Ancef on-call to the OR -We will order type and screen preoperatively. Patient's current hemoglobin 10.7, platelets 230 -Awaiting medical optimization -Plan discussed with Dr. Lopez Post-op pain Digitally Signed by ANATOLIY AYALA DO on 12/12/2023 02:18 PM [facility] 12-12-2023 Orthopaedic surge ry Progress note Date of Service 12/12/2023 Subjective Patient seen and examined. Resting comfortably bed. Her pain is well-controlled. No acute overnight events Objective Vitals and Measurements T: 36.8 C (Oral) TMIN: 36.7 C (Oral) TMAX: 36.8 C (Oral) HR: 64 RR: 18 BP: 102/73 SpO2: 96% Intake and Output 7AM Yesterday to 7AM Today Intake and Output (Last 24 hours) Intake Oral Intake 1800.00 Output Urinary Catheter Output: 2250.00 Stool Count 1.00 Total Summary Total Intake 1800.00 Total Output 2250.00 Fluid Balance -450.00 Physical Exam General: Alert and oriented x 3, no acute distress Left lower extremity: Ex-Fix is in appropriate alignment, there is no pin site drainage noted Compartment soft and compressible Patient is able to actively flex extend her toes, no pain with passive stretch of toes EHL/FHL/TA/GS intact Sensation tact light touch L4-S1 2+ dorsalis pedis pulse Weight Dosing Weight: 209.8 kg (12/07/23) Dosing Weight: 209.8 kg (12/06/23) Medications Medications (37) Active Scheduled: (23) amLODIPine 10 mg tablet 10 mg 1 tab(s), Oral, qDay busPIRone 15 mg Tablet 15 mg 1 tab(s), Oral, TID clonazePAM 0.5 mg tablet 0.5 mg 1 tab(s), Oral, qHS enoxaparin 150 mg/mL syringe 150 mg 1 mL, Subcutaneous, q12h famotidine 20 mg tablet 20 mg 1 tab(s), Oral, qHS furosemide 20 mg tablet 20 mg 1 tab(s), Oral, BID gabapentin 300 mg Capsule 600 mg 2 cap(s), Oral, BID isosorbide mononitrate 60 mg ER tablet 60 mg 1 tab(s), Oral, qAM lisinopril 10 mg tablet 10 mg 1 tab(s), Oral, qDay loratadine 10 mg Tablet 10 mg 1 tab(s), Oral, qDay menthol-zinc oxide topical ointment 4oz 1 chris, Topical, amhs methocarbamol 500 mg Tablet 1,000 mg 2 tab(s), Oral, QID miconazole topical 2% Powder 1 chris, Topical, BID Misc communication order lovenox dose, Miscellaneous, qDay olopatadine ophthalmic 0.2% Soln 2.5 mL 1 drop(s), Eyes, both, qDay pantoprazole 20 mg EC tablet 20 mg 1 tab(s), Oral, qDayAC polyethylene glycol 3350 - UD packet 17 gram(s) 15 mL, Oral, BID prazosin 1 mg Capsule 1 mg 1 cap(s), Oral, qHS QUEtiapine 300 mg tablet 300 mg 1 tab(s), Oral, qHS senna 8.6 mg Tablet 17.2 mg 2 tab(s), Oral, qDay sotalol 120 mg Tablet 120 mg 1 tab(s), Oral, BID topiramate 25 mg Sprinkle Capsule 50 mg 2 cap(s), Oral, qAM topiramate 25 mg Tablet 25 mg 1 tab(s), Oral, qPM Continuous: (0) PRN: (14) acetaminophen 325 mg Tablet 650 mg 2 tab(s), Oral, q4h acetaminophen-OXYcodone 325 mg-5 mg Tablet 1 tab(s), Oral, q4h acetaminophen-OXYcodone 325 mg-5 mg Tablet 2 tab(s), Oral, q4h albuterol - ipratropium 2.5 mg-0.5 mg/3 mL Inhal [place] UD 3 mL, Inhalation, q4hRT dextrose 50% Solution Disp syringe 50 mL 12.5 gram(s) 25 mL, IV Push, AsDirected docusate sodium 100 mg Capsule 100 mg 1 cap(s), Oral, BID fluticasone nasal 0.05 mg/inh [place] 50 mcg 1 spray(s), Inhalation, BID hydroxyzine hcl 25 mg tablet 25 mg 1 tab(s), Oral, q8h magnesium hydroxide 8% Suspension 30 mL UD 30 mL, Oral, qHS melatonin 3 mg tablet 3 mg 1 tab(s), Oral, qHS menthol-zinc oxide topical ointment 4oz 1 chris, Topical, BID ondansetron 2 mg/ 1 mL 2 mL INJ 4 mg 2 mL, IV Push, q4h potassium chloride 10 mEq ER capsule 10 mEq 1 cap(s), Oral, qDay prochlorperazine 10 mg/2 mL vial 5 mg 1 mL, IV Push, q6h Lab Results 12/11 04:36 WBC: 7.5 Hgb: 10.7 L Hct: 31.9 L Platelet: 230 Neutrophil %: 59.7 Glucose Level: 100 Sodium Level: 139 Potassium Level: 3.8 BUN: 18.0 Creatinine Lvl (s): 0.71 Imaging Results and Diagnostics XR Fluoro 1-2 Hrs Tech Time Result Date: December 07, 2023 Verified By: JHOAN CORBETT MD CLINICAL STATEMENT: IMPRESSION: Fluoroscopic time: 3 minutes 15.4 seconds Total dose (Reference Air Kerma): 49.56 MGy Number of fluoroscopic images: 24 Detail is limited. Please see intraoperative notes for additional details ofthe procedure. CT Pelvis w/o Contrast Result Date: December 06, 2023 Verified By: ARNIE NATION MD CLINICAL STATEMENT: IMPRESSION: Patient body habitus results in severe quantum mottle limiting some detail.In that context, no acute osseous abnormality is identified. I have personally reviewed the images of this examination and agree with theresident's findings and interpretation. CT Knee w/o Contrast Left Result Date: December 06, 2023 Verified By: ARNIE NATION MD CLINICAL STATEMENT: IMPRESSION: Comminuted, displaced, and impacted fracture of the proximal tibialmetadiaphysis. Additional nondisplaced oblique fracture through the fibularhead. No intra-articular extension is identified for either fracture. I have personally reviewed the images of this examination and agree with theresident's findings and interpretation. XR Chest 1 View Result Date: December 06, 2023 Verified By: ARNIE NATION MD CLINICAL STATEMENT: IMPRESSION: No acute radiographic findings. EKG No qualifying data available. Assessment/Plan Fall Closed left proximal tibia fracture -I explained to the patient the need for surgical intervention to prevent major morbidity mortality with nonoperative treatment. Patient voiced understanding and was agreeable to proceed. -Will obtain informed consent and plan for left tibia IM nail versus open reduction internal fixation of left tibia versus cast application with Dr. Lopez on 12/13/2023. -Hold any chemical DVT prophylaxis at this time - will order SCDs -Pain control -Percocet/morphine -Bedrest, NWB left lower extremity -N.p.o. at midnight -Ancef on-call to the OR -We will order type and screen preoperatively. Patient's current hemoglobin 10.7, platelets 230 -Awaiting medical optimization -Plan discussed with Dr. Lopez Post-op pain Digitally Signed by ANATOLIY AYALA DO on 12/12/2023 02:18 PM [facility] 12-08-2023 Orthopaedic surge ry Consult note Date of Service 12/06/2023 Reason for Consultation Left tibia fracture History of Present Illness 53-year-old female presents the [place] emergency department with left knee pain after a mechanical ground-level fall. Patient was at home attempting to walk with her walker when suddenly she felt her knee give out and she fell onto her left side. She was unable to ambulate and initially presented to [facility] where x-rays were performed. They demonstrated a closed displaced left proximal tibia fracture, they requested a CT however the patient exceeded the weight limit on the CT scanner at [facility] so she was transferred here to [facility] for further care. She currently denies any numbness or tingling distally in her left lower extremity, she denies any other orthopedic complaints. She does report a history of A-fib and also admits to regularly vaping nicotine however she denies history of diabetes. Review of Systems REVIEW OF SYSTEMS: No fever, no chills, no weight change. HEENT: No sore throat, earache, or congestion. No neck pain. Heart: No chest pain. No palpitations. Lungs: No shortness of breath or cough. GI: No nausea, no vomiting, no diarrhea, no constipation, no anorexia. : No dysuria, frequency or urgency. No hematuria. Musculoskeletal: see above Skin: No rash or itching. Psychiatric: No anxiety, no depression. Endocrine: No polyuria or polydipsia. Physical Exam Vitals and Measurements T: 36.1 C (Oral) HR: 61 RR: 20 BP: 102/68 SpO2: 96% WT: 209.8 kg Weight Dosing Weight: 209.8 kg (12/06/23) General: NAD, A&Ox3 HEENT: normocephalic, atraumatic, EOMI intact CV: pulses regular throughout, brisk cap refill throughout, Pulm: normal work of breathing, equal chest rise bilaterally, no intercostal retractions or conversational dyspnea GI: abdomen is soft, nontender, nondistended, no rigidity or guarding Psych: calm and cooperative Left lower extremity: Skin is dry intact over the left lower extremity There is mild swelling about the left proximal tibia although it is difficult to appreciate given the patient's body habitus Patient has no pain with active or passive extension and flexion of ankle and toes Sensation intact to light touch L4-S1 2+ dorsalis pedis pulse Remainder secondary survey is negative Lab Results 12/05 12:23 WBC: 8.3 Hgb: 11.8 L Hct: 36.3 Platelet: 242 Neutrophil %: 77.1 H Protime: 12.0 PT International Ratio: 1.0 Glucose Level: 104 Sodium Level: 141 Potassium Level: 4.5 BUN: 19.0 Creatinine Lvl (s): 0.88 Imaging Results and Diagnostics CT Pelvis w/o Contrast Result Date: December 06, 2023 Verified By: ARNIE NATION MD CLINICAL STATEMENT: IMPRESSION: Patient body habitus results in severe quantum mottle limiting some detail.In that context, no acute osseous abnormality is identified. I have personally reviewed the images of this examination and agree with theresident's findings and interpretation. CT Knee w/o Contrast Left Result Date: December 06, 2023 Verified By: ARNIE NATION MD CLINICAL STATEMENT: IMPRESSION: Comminuted, displaced, and impacted fracture of the proximal tibialmetadiaphysis. Additional nondisplaced oblique fracture through the fibularhead. No intra-articular extension is identified for either fracture. I have personally reviewed the images of this examination and agree with theresident's findings and interpretation. XR Chest 1 View Result Date: December 06, 2023 Verified By: ARNIE NATION MD CLINICAL STATEMENT: IMPRESSION: No acute radiographic findings. Assessment/Plan Fall Closed displaced left proximal tibial shaft fracture -53-year-old female presents after mechanical ground-level fall this was a closed, isolated injury. Patient is NV intact. -I explained to the patient the need for surgical intervention to prevent major morbidity mortality with nonoperative treatment. Patient voiced understanding and was agreeable to proceed. -Will obtain informed consent and plan for left knee spanning external fixator with Dr. Nye on 12/07/2023. -Patient placed in a knee immobilizer -Hold any chemical DVT prophylaxis at this time - will order SCDs -Pain control -Percocet/morphine -Bedrest, NWB left lower extremity -N.p.o. at midnight -Ancef on-call to the OR -We will order type and screen preoperatively. Patient's current hemoglobin 11.8, platelets 242 - test pending -Appreciate medical optimization from Dr. Mejia and hospitalist team -Plan discussed with Dr. Nye Orders: Assign to Observation status Problem List/Past Medical History Ongoing Atrial fibrillation Bipolar 1 disorder BIPOLAR DISORDER CHEST PAIN Chest pain CHF (congestive heart failure) DEPRESSION (Renamed from BLUES) Gastric bypass GASTROESOPHAGEAL REFLUX DISEASE, ESOPHAGITIS PRESENCE NOT SPECIFIED heart catheterization HTN - Hypertension HYPERTENSION, UNSPECIFIED (Renamed from ESSENTIAL (PRIMARY) HYPERTENSION) HYPOTHYROIDISM (Renamed from ADULT HYPOTHYROIDISM) Hysterectomy INCREASED BMI (Renamed from OVERWEIGHT) MORBID OBESITY WITH BMI OF 70 AND OVER, ADULT MRSA R breast, HTN, depression PARAMJIT (obstructive sleep apnea) Ovarian cancer, disseminated Palpitations PAROXYSMAL ATRIAL FIBRILLATION SOB (SHORTNESS OF BREATH) ON EXERTION Historical No qualifying data Procedure/Surgical History Cholecystectomy Gastric bypass Rotator cuff repair Appendectomy Hysterectomy Cardiac catheterization Medications Inpatient No active inpatient medications Home amLODIPine 10 mg oral tablet, 10 mg= 1 tab(s), Oral, qDay atorvastatin 10 mg oral tablet, 10 mg= 1 tab(s), Oral, qDay busPIRone 15 mg oral tablet, 15 mg= 1 tab(s), Oral, TID Eliquis 5 mg oral tablet, 5 mg= 1 tab(s), Oral, BID fluticasone proprionate NASAL 50 mcg/ spray, 50 mcg= 1 spray(s), Inhalation, BID, PRN gabapentin 300 mg oral capsule, 600 mg= 2 cap(s), Oral, BID hydrOXYzine hydrochloride 25 mg oral tablet, 25 mg= 1 tab(s), Oral, q8h, PRN isosorbide mononitrate 60 mg oral tablet, extended release, 60 mg= 1 tab(s), Oral, qAM KlonoPIN 0.5 mg oral tablet, 0.5 mg= 1 tab(s), Oral, qHS Lasix 20 mg oral tablet, 20 mg= 1 tab(s), Oral, BID levocetirizine 5 mg oral tablet, 5 mg= 1 tab(s), Oral, qPM lisinopril 10 mg oral tablet, 10 mg= 1 tab(s), Oral, qDay Minipress 1 mg oral capsule, 1 mg= 1 cap(s), Oral, qHS omeprazole 20 mg oral delayed release capsule, 20 mg= 1 cap(s), Oral, qDayAC [place] 0.2% ophthalmic solution, 1 drop(s), Eyes, both, qDay potassium chloride 10 mEq oral capsule, extended release, 10 mEq= 1 cap(s), Oral, qDay, PRN QUEtiapine 300 mg oral tablet, 300 mg= 1 tab(s), Oral, qHS sotalol 120 mg oral tablet, 120 mg= 1 tab(s), Oral, BID topiramate 25 mg oral capsule, 50 mg= 2 cap(s), Oral, qAM topiramate 25 mg oral tablet, 25 mg= 1 tab(s), Oral, qPM Allergies Augmentin (Swelling of throat, Hives) Contrast Dye(s) (Swelling of throat, Hives) Augmentin XR (unspecified) amoxicillin (unspecified) amoxicillin-clavulanate (Unknown) iodine (unspecified) Social History Smoking Status - 07/05/2016 Never smoker Alcohol Use: None., 12/17/2020 Nutrition/Health Caffeine intake amount: 2 cups per day., 12/17/2020 Substance Abuse Use: Never., 12/17/2020 Tobacco Nicotine Use: Never (less than 100 in lifetime)., 12/17/2020 Family History Asthma: Father. Cancer: Father. Diabetes mellitus: Mother. HTN - Hypertension: Mother. Heart disease: Father. Hyperchloremia: Mother. Mental illness: Father. Seizure: Father. Immunizations No qualifying data available. Digitally Signed by ANATOLIY AYALA DO on 12/06/2023 04:16 PM [facility] 12-08-2023 Note Date of Service 12/08/23 Reason for Consultation Admission From: Home Consult Skin Team re: Pressure Staging - Ordered -- 12/06/23 21:01:48 EST Skin Team Findings Vitals and Measurements T: 36.5 C (Oral) TMIN: 36.4 C (Axillary) TMAX: 37.74 C HR: 61(Apical) RR: 18 BP: 118/68 SpO2: 97% HT: 165.1 cm WT: 209.8 kg BMI: 76.97 Pressure Area Details ------Incision/Wound------ Coccyx - Incision, Wound Cleansing: Cleaned with normal saline Coccyx - Incision, Wound Dressing Assessment: Drainage present Coccyx - Incision, Wound Dressing/Activity: Removed Coccyx - Incision, Wound Dressing: Transparent silicone dressing Coccyx - Incision, Wound Surrounding Tissue: Moist Coccyx - Skin Abnormality Color: [place] 100% viable tissue Coccyx - Skin Abnormality Pattern: Linear Coccyx - Skin Abnormality Type: Fissure Coccyx - Wound Associated Pain: With activity, mobilization Coccyx - Wound Edge: Attached to wound bed Coccyx - Wound Exudate Amount: Small Coccyx - Wound Exudate Odor: None Coccyx - Wound Exudate Type: Serosanguineous Coccyx - Wound Status: Unchanged, No complications Groin - Incision, Wound Dressing/Activity: Open to air Groin - Incision, Wound Surrounding Tissue: Normal Groin - Skin Abnormality Pattern: Other: mild Groin - Skin Abnormality Type: Moisture associated dermatitis Groin - Wound Associated Pain: None Groin - Wound Exudate Amount: None Groin - Wound Status: No complications Leg Left - External Fixation Device: Pins, Rods Leg Left - Incision, Wound Dressing Assessment: Clean, Dry, Intact Leg Left - Incision, Wound Dressing/Activity: Assessed Leg Left - Incision, Wound Dressing: Elastic wrap bandage Leg Left - Skin, Pin Assessment: Fixator intact ------Incision/Wound Measurements------ Coccyx - Incision, Wound Depth: 0.1 cm Coccyx - Incision, Wound Length: 2 cm Coccyx - Incision, Wound Width: 0.4 cm Assessments and Recommendations ------Assessments------ Current Skin/Wound Interventions: Bariatric bed, Transparent silicone dressing Present For Wound Observation: Patient Seating Captain ------Recommendations------ Recommended Skin/Wound Interventions: Bariatric bed, Seat cushion, Turn and position system, Barrier cream, Turn and reposition every 2 hours, Proposed orders sent to physician, Other: calmoseptine coccyx, continue miconazole to skin folds Education Individuals Taught: Patient Learning Readiness: Willing to learn Barriers to Learning: Emotional state Teaching Method: Explanation Problem List/Past Medical History Ongoing Atrial fibrillation Bipolar 1 disorder BIPOLAR DISORDER CHEST PAIN Chest pain CHF (congestive heart failure) DEPRESSION (Renamed from BLUES) Gastric bypass GASTROESOPHAGEAL REFLUX DISEASE, ESOPHAGITIS PRESENCE NOT SPECIFIED heart catheterization HTN - Hypertension HYPERTENSION, UNSPECIFIED (Renamed from ESSENTIAL (PRIMARY) HYPERTENSION) HYPOTHYROIDISM (Renamed from ADULT HYPOTHYROIDISM) Hysterectomy INCREASED BMI (Renamed from OVERWEIGHT) MORBID OBESITY WITH BMI OF 70 AND OVER, ADULT MRSA R breast, HTN, depression PARAMJIT (obstructive sleep apnea) Ovarian cancer, disseminated Palpitations PAROXYSMAL ATRIAL FIBRILLATION SOB (SHORTNESS OF BREATH) ON EXERTION Historical No qualifying data Digitally Signed by CHAD Brower on 12/08/2023 11:19 AM [facility] 12-07-2023 Anesthesiology Consult note Patient: QUINTEN YARBROUGH Age: 53 years Sex: Female : 1970 Associated Diagnoses: None Author: SOLIS BUSH MD Postoperative Information Post Operative Info: Post op day: Post Anesthesia Care Unit. Patient location: PACU. Assessment Postanesthesia assessment Vitals: Vital signs from flowsheet : Vital Signs 12/07/2023 15:35 EST Temperature Axillary 36.4 DegC Peripheral Pulse Rate 75 bpm Respiratory Rate 20 br/min Systolic Blood Pressure Non-Invasive 141 mmHg HI Diastolic Blood Pressure Non-Invasive 83 mmHg Mean Arterial Pressure (NBP) 100 mmHg Reason For Taking VItal Signs Routine 12/07/2023 15:12 EST Heart Rate Monitored 69 bpm Respiratory Rate 20 br/min Systolic Blood Pressure Non-Invasive 143 mmHg HI Diastolic Blood Pressure Non-Invasive 85 mmHg Mean Arterial Pressure (NBP) 102 mmHg 12/07/2023 14:57 EST Heart Rate Monitored 71 bpm Respiratory Rate 24 br/min HI Systolic Blood Pressure Non-Invasive 140 mmHg Diastolic Blood Pressure Non-Invasive 81 mmHg Mean Arterial Pressure (NBP) 98 mmHg 12/07/2023 14:41 EST Heart Rate Monitored 80 bpm Respiratory Rate 24 br/min HI Systolic Blood Pressure Non-Invasive 134 mmHg Diastolic Blood Pressure Non-Invasive 81 mmHg Mean Arterial Pressure (NBP) 97 mmHg 12/07/2023 14:33 EST Systolic Blood Pressure Non-Invasive 140 mmHg Diastolic Blood Pressure Non-Invasive 81 mmHg 12/07/2023 14:27 EST Heart Rate Monitored 76 bpm Respiratory Rate 24 br/min HI Systolic Blood Pressure Non-Invasive 139 mmHg Diastolic Blood Pressure Non-Invasive 113 mmHg >HHI Mean Arterial Pressure (NBP) 123 mmHg 12/07/2023 14:20 EST Heart Rate Monitored 81 bpm bpm Respiratory Rate - Anes 0 br/min br/min 12/07/2023 14:17 EST Systolic Blood Pressure Non-Invasive 129 mmHg mmHg Diastolic Blood Pressure Non-Invasive 107 mmHg mmHg 12/07/2023 14:15 EST Heart Rate Monitored 84 bpm bpm Respiratory Rate - Anes 24 br/min br/min 12/07/2023 14:14 EST Systolic Blood Pressure Non-Invasive 146 mmHg mmHg Diastolic Blood Pressure Non-Invasive 97 mmHg mmHg 12/07/2023 14:11 EST Systolic Blood Pressure Non-Invasive 150 mmHg mmHg Diastolic Blood Pressure Non-Invasive 82 mmHg mmHg 12/07/2023 14:10 EST Temperature (Route Not Specified) 37.08 DegC DegC Heart Rate Monitored 79 bpm bpm Respiratory Rate - Anes 7 br/min br/min 12/07/2023 14:08 EST Systolic Blood Pressure Non-Invasive 125 mmHg mmHg Diastolic Blood Pressure Non-Invasive 76 mmHg mmHg 12/07/2023 14:05 EST Temperature (Route Not Specified) 37.06 DegC DegC Heart Rate Monitored 66 bpm bpm Respiratory Rate - Anes 11 br/min br/min Systolic Blood Pressure Non-Invasive 121 mmHg mmHg Diastolic Blood Pressure Non-Invasive 73 mmHg mmHg 12/07/2023 14:02 EST Systolic Blood Pressure Non-Invasive 113 mmHg mmHg Diastolic Blood Pressure Non-Invasive 64 mmHg mmHg 12/07/2023 14:00 EST Temperature (Route Not Specified) 37.05 DegC DegC Heart Rate Monitored 64 bpm bpm Respiratory Rate - Anes 10 br/min br/min 12/07/2023 13:59 EST Systolic Blood Pressure Non-Invasive 117 mmHg mmHg Diastolic Blood Pressure Non-Invasive 62 mmHg mmHg 12/07/2023 13:56 EST Systolic Blood Pressure Non-Invasive 106 mmHg mmHg Diastolic Blood Pressure Non-Invasive 66 mmHg mmHg 12/07/2023 13:55 EST Temperature (Route Not Specified) 37.04 DegC DegC Heart Rate Monitored 63 bpm bpm Respiratory Rate - Anes 10 br/min br/min 12/07/2023 13:53 EST Systolic Blood Pressure Non-Invasive 101 mmHg mmHg Diastolic Blood Pressure Non-Invasive 69 mmHg mmHg 12/07/2023 13:50 EST Temperature (Route Not Specified) 37.05 DegC DegC Heart Rate Monitored 63 bpm bpm Respiratory Rate - Anes 20 br/min br/min Systolic Blood Pressure Non-Invasive 102 mmHg mmHg Diastolic Blood Pressure Non-Invasive 56 mmHg mmHg 12/07/2023 13:47 EST Systolic Blood Pressure Non-Invasive 103 mmHg mmHg Diastolic Blood Pressure Non-Invasive 62 mmHg mmHg 12/07/2023 13:45 EST Temperature (Route Not Specified) 37.07 DegC DegC Heart Rate Monitored 64 bpm bpm Respiratory Rate - Anes 20 br/min br/min 12/07/2023 13:44 EST Systolic Blood Pressure Non-Invasive 94 mmHg mmHg Diastolic Blood Pressure Non-Invasive 59 mmHg mmHg 12/07/2023 13:41 EST Systolic Blood Pressure Non-Invasive 99 mmHg mmHg Diastolic Blood Pressure Non-Invasive 58 mmHg mmHg 12/07/2023 13:40 EST Temperature (Route Not Specified) 37.09 DegC DegC Heart Rate Monitored 64 bpm bpm Respiratory Rate - Anes 20 br/min br/min 12/07/2023 13:38 EST Systolic Blood Pressure Non-Invasive 102 mmHg mmHg Diastolic Blood Pressure Non-Invasive 59 mmHg mmHg 12/07/2023 13:35 EST Temperature (Route Not Specified) 37.11 DegC DegC Heart Rate Monitored 66 bpm bpm Respiratory Rate - Anes 20 br/min br/min Systolic Blood Pressure Non-Invasive 103 mmHg mmHg Diastolic Blood Pressure Non-Invasive 57 mmHg mmHg 12/07/2023 13:32 EST Systolic Blood Pressure Non-Invasive 105 mmHg mmHg Diastolic Blood Pressure Non-Invasive 60 mmHg mmHg 12/07/2023 13:30 EST Temperature (Route Not Specified) 37.11 DegC DegC Heart Rate Monitored 67 bpm bpm Respiratory Rate - Anes 20 br/min br/min 12/07/2023 13:29 EST Systolic Blood Pressure Non-Invasive 109 mmHg mmHg Diastolic Blood Pressure Non-Invasive 64 mmHg mmHg 12/07/2023 13:26 EST Systolic Blood Pressure Non-Invasive 110 mmHg mmHg Diastolic Blood Pressure Non-Invasive 63 mmHg mmHg 12/07/2023 13:25 EST Temperature (Route Not Specified) 37.13 DegC DegC Heart Rate Monitored 70 bpm bpm Respiratory Rate - Anes 18 br/min br/min 12/07/2023 13:23 EST Systolic Blood Pressure Non-Invasive 107 mmHg mmHg Diastolic Blood Pressure Non-Invasive 62 mmHg mmHg 12/07/2023 13:20 EST Temperature (Route Not Specified) 37.16 DegC DegC Heart Rate Monitored 66 bpm bpm Respiratory Rate - Anes 20 br/min br/min Systolic Blood Pressure Non-Invasive 101 mmHg mmHg Diastolic Blood Pressure Non-Invasive 52 mmHg mmHg 12/07/2023 13:17 EST Systolic Blood Pressure Non-Invasive 109 mmHg mmHg Diastolic Blood Pressure Non-Invasive 58 mmHg mmHg 12/07/2023 13:15 EST Temperature (Route Not Specified) 37.18 DegC DegC Heart Rate Monitored 67 bpm bpm Respiratory Rate - Anes 20 br/min br/min 12/07/2023 13:14 EST Systolic Blood Pressure Non-Invasive 110 mmHg mmHg Diastolic Blood Pressure Non-Invasive 65 mmHg mmHg 12/07/2023 13:10 EST Temperature (Route Not Specified) 37.2 DegC DegC Heart Rate Monitored 67 bpm bpm Respiratory Rate - Anes 20 br/min br/min Systolic Blood Pressure Non-Invasive 106 mmHg mmHg Diastolic Blood Pressure Non-Invasive 64 mmHg mmHg 12/07/2023 13:08 EST Systolic Blood Pressure Non-Invasive 106 mmHg mmHg Diastolic Blood Pressure Non-Invasive 55 mmHg mmHg 12/07/2023 13:05 EST Temperature (Route Not Specified) 37.19 DegC DegC Heart Rate Monitored 67 bpm bpm Respiratory Rate - Anes 18 br/min br/min 12/07/2023 13:04 EST Systolic Blood Pressure Non-Invasive 107 mmHg mmHg Diastolic Blood Pressure Non-Invasive 59 mmHg mmHg 12/07/2023 13:02 EST Systolic Blood Pressure Non-Invasive 108 mmHg mmHg Diastolic Blood Pressure Non-Invasive 64 mmHg mmHg 12/07/2023 13:00 EST Temperature (Route Not Specified) 37.2 DegC DegC Heart Rate Monitored 69 bpm bpm Respiratory Rate - Anes 18 br/min br/min 12/07/2023 12:59 EST Systolic Blood Pressure Non-Invasive 114 mmHg mmHg Diastolic Blood Pressure Non-Invasive 63 mmHg mmHg 12/07/2023 12:56 EST Systolic Blood Pressure Non-Invasive 101 mmHg mmHg Diastolic Blood Pressure Non-Invasive 60 mmHg mmHg 12/07/2023 12:55 EST Temperature (Route Not Specified) 37.2 DegC DegC Heart Rate Monitored 73 bpm bpm Respiratory Rate - Anes 18 br/min br/min 12/07/2023 12:53 EST Systolic Blood Pressure Non-Invasive 111 mmHg mmHg Diastolic Blood Pressure Non-Invasive 60 mmHg mmHg 12/07/2023 12:50 EST Temperature (Route Not Specified) 37.19 DegC DegC Heart Rate Monitored 73 bpm bpm Respiratory Rate - Anes 18 br/min br/min Systolic Blood Pressure Non-Invasive 107 mmHg mmHg Diastolic Blood Pressure Non-Invasive 62 mmHg mmHg 12/07/2023 12:47 EST Systolic Blood Pressure Non-Invasive 109 mmHg mmHg Diastolic Blood Pressure Non-Invasive 62 mmHg mmHg 12/07/2023 12:45 EST Temperature (Route Not Specified) 37.24 DegC DegC Heart Rate Monitored 75 bpm bpm Respiratory Rate - Anes 18 br/min br/min 12/07/2023 12:43 EST Systolic Blood Pressure Non-Invasive 119 mmHg mmHg Diastolic Blood Pressure Non-Invasive 78 mmHg mmHg 12/07/2023 12:41 EST Systolic Blood Pressure Non-Invasive 115 mmHg mmHg Diastolic Blood Pressure Non-Invasive 67 mmHg mmHg 12/07/2023 12:40 EST Temperature (Route Not Specified) 37.42 DegC DegC Heart Rate Monitored 77 bpm bpm Respiratory Rate - Anes 18 br/min br/min 12/07/2023 12:39 EST Systolic Blood Pressure Non-Invasive 133 mmHg mmHg Diastolic Blood Pressure Non-Invasive 70 mmHg mmHg 12/07/2023 12:36 EST Systolic Blood Pressure Non-Invasive 120 mmHg mmHg Diastolic Blood Pressure Non-Invasive 68 mmHg mmHg 12/07/2023 12:35 EST Temperature (Route Not Specified) 37.59 DegC DegC Heart Rate Monitored 79 bpm bpm Respiratory Rate - Anes 18 br/min br/min 12/07/2023 12:30 EST Temperature (Route Not Specified) 37.74 DegC DegC Heart Rate Monitored 91 bpm bpm Respiratory Rate - Anes 18 br/min br/min Systolic Blood Pressure Non-Invasive 109 mmHg mmHg Diastolic Blood Pressure Non-Invasive 72 mmHg mmHg 12/07/2023 12:27 EST Systolic Blood Pressure Non-Invasive 99 mmHg mmHg Diastolic Blood Pressure Non-Invasive 70 mmHg mmHg 12/07/2023 12:25 EST Heart Rate Monitored 84 bpm bpm Respiratory Rate - Anes 10 br/min br/min 12/07/2023 12:24 EST Systolic Blood Pressure Non-Invasive 94 mmHg mmHg Diastolic Blood Pressure Non-Invasive 72 mmHg mmHg 12/07/2023 12:21 EST Systolic Blood Pressure Non-Invasive 102 mmHg mmHg Diastolic Blood Pressure Non-Invasive 80 mmHg mmHg 12/07/2023 12:20 EST Heart Rate Monitored 76 bpm bpm Respiratory Rate - Anes 16 br/min br/min (Modified) 12/07/2023 12:18 EST Systolic Blood Pressure Non-Invasive 131 mmHg mmHg Diastolic Blood Pressure Non-Invasive 86 mmHg mmHg 12/07/2023 10:32 EST Temperature Oral 36.9 DegC Peripheral Pulse Rate 73 bpm Respiratory Rate 20 br/min Systolic Blood Pressure Non-Invasive 137 mmHg Diastolic Blood Pressure Non-Invasive 89 mmHg 12/07/2023 8:03 EST Temperature Oral 37 DegC Peripheral Pulse Rate 77 bpm Respiratory Rate 21 br/min HI Systolic Blood Pressure Non-Invasive 137 mmHg Diastolic Blood Pressure Non-Invasive 76 mmHg 12/07/2023 4:13 EST Temperature Oral 36.9 DegC Apical Heart Rate 75 bpm Respiratory Rate 20 br/min Systolic Blood Pressure Non-Invasive 119 mmHg Diastolic Blood Pressure Non-Invasive 68 mmHg Blood Pressure Method Automatic Blood Pressure Location Left arm Reason For Taking VItal Signs Routine 12/06/2023 23:37 EST Temperature Oral 36.8 DegC Apical Heart Rate 90 bpm Respiratory Rate 20 br/min Systolic Blood Pressure Non-Invasive 117 mmHg Diastolic Blood Pressure Non-Invasive 75 mmHg Reason For Taking VItal Signs Routine 12/06/2023 19:43 EST Temperature Oral 36.9 DegC Apical Heart Rate 77 bpm Respiratory Rate 20 br/min Systolic Blood Pressure Non-Invasive 158 mmHg HI Diastolic Blood Pressure Non-Invasive 78 mmHg Reason For Taking VItal Signs Routine 12/06/2023 16:45 EST Temperature Oral 36.5 DegC Heart Rate Monitored 72 bpm Respiratory Rate 20 br/min Systolic Blood Pressure Non-Invasive 144 mmHg HI Diastolic Blood Pressure Non-Invasive 90 mmHg HI Reason For Taking VItal Signs Admission 12/06/2023 12:01 EST Temperature Oral 36.1 DegC Peripheral Pulse Rate 61 bpm Respiratory Rate 20 br/min Systolic Blood Pressure Non-Invasive 102 mmHg Diastolic Blood Pressure Non-Invasive 68 mmHg . Mental status: at preoperative baseline. Respiratory function: respirations are non-labored, Stable. Respiratory support: none. CV function: Stable. Cardiovascular support: none. Pain: Satisfactory. Nausea status: Satisfactory. Postoperative hydration status: within normal limits. Notes: Patient is sufficiently recovered from anesthesia to participate in the evaluation. No follow-up care needed. No complications post-anesthesia.. Digitally Signed by SOLIS BUSH MD on 12/07/2023 04:37 PM [facility] 12-07-2023 Note ORIGINAL EXAMINATION: FLUORO MD - > 1 HR12/07/2023 2:35 pm Intraoperative fluoroscopy and image intensifier views of the left knee/tib fib COMPARISON: Radiographs 12/06/2023 HISTORY: ORDERING SYSTEM PROVIDED HISTORY: Reason for Exam: ex fix, , intraoperative imaging FINDINGS/IMPRESSION: Fluoroscopic time: 3 minutes 15.4 seconds Total dose (Reference Air Kerma): 49.56 MGy Number of fluoroscopic images: 24 Detail is limited. Please see intraoperative notes for additional details of the procedure. Interpreted by: Jhoan Corbett MD Preliminary Report By: Jhoan Corbett MD Electronically signed By Jhoan Corbett MD Dictated Date: 12/07/2023 3:05:22 PM Prelim Date: 12/07/2023 3:06:34 PM Sign Date: 12/07/2023 3:06:34 PM Ordering Provider: [facility] 12-06-2023 History and physical note Date of Service 12/06/23 Chief Complaint fall History of Present Illness 54-year-old female past medical history of atrial fibrillation on Eliquis, bipolar, morbid obesity, heart failure with ejection fraction, hypothyroidism, ovarian cancer, hypertension, PARAMJIT not on CPAP, gastric bypass presented after a fall. Patient was in the morning walk when her knees just gave out. She presented to [facility] due to pain and was found to have a comminuted proximal tibial fracture. Given that they have no orthopedic coverage she was transferred here. CT knee obtained here showed comminuted displaced and impacted fracture of the proximal tibia metadiaphysis and also nondisplaced oblique fracture of the fibular head. She denies history of diabetes, stroke or coronary disease. Review of Systems 14 point review of system was discussed and reviewed as negative unless otherwise specified above Physical Exam Vitals and Measurements T: 36.1 C (Oral) HR: 61 RR: 20 BP: 102/68 SpO2: 96% WT: 209.8 kg Weight Dosing Weight: 209.8 kg (12/06/23) Difficult due to patient's body habitus General- in no acute distress, alert Cardiac- Normal S1 S2, with no murmur rubs or gallops, no edema HEENT- PERRLA, eyes- sclera nonicteric, oral mucosa moist Lungs- Clear to auscultation bilaterally Abdomen- Nontender to palpation, positive bowel sounds Neurology- No focal neuro deficit, follows command Skin- no rash Psychiatry- oriented x3 Lab Results 12/05 12:23 WBC: 8.3 Hgb: 11.8 L Hct: 36.3 Platelet: 242 Neutrophil %: 77.1 H Protime: 12.0 PT International Ratio: 1.0 Glucose Level: 104 Sodium Level: 141 Potassium Level: 4.5 BUN: 19.0 Creatinine Lvl (s): 0.88 Assessment/Plan Fall Assessment 1. Comminuted proximal tibial fracture, left 2. Nondisplaced oblique fracture of the left fibular head 3. Atrial fibrillation Eliquis 4. Hypertension 5. PARAMJIT not on CPAP Chronic heart failure preserved ejection fraction 6. Other medical history including ovarian cancer, gastric bypass, hypothyroidism, morbid obesity Plan 1. EKG reviewed sinus rhythm heart rate controlled. She mentioned that the last time she took Eliquis was yesterday. Of note she does mention that she has a history of sleep apnea but does not use CPAP. She will benefit from end-tidal monitoring postoperatively. Noncardiac surgical score of 1, low risk, patient is medically optimized for surgery. Orthopedic consult. Hold Eliquis. N.p.o. after midnight Initially she was hypoxic on presentation documented 84% but when I did see her she was on room air. She does not use oxygen or CPAP. This document was transcribed using a voice recognition software and may contain typographical errors. Orders: HYDROmorphone, Start: 12/06/23 16:15:00 EST, Dose = 0.5 mg, = 0.5 mL, IV Push, Once, Stop: 12/06/23 16:15:00 EST, 12/06/23 16:14:00 EST Assign to Observation status Consult to Physician Problem List/Past Medical History Ongoing Atrial fibrillation Bipolar 1 disorder BIPOLAR DISORDER CHEST PAIN Chest pain CHF (congestive heart failure) DEPRESSION (Renamed from BLUES) Gastric bypass GASTROESOPHAGEAL REFLUX DISEASE, ESOPHAGITIS PRESENCE NOT SPECIFIED heart catheterization HTN - Hypertension HYPERTENSION, UNSPECIFIED (Renamed from ESSENTIAL (PRIMARY) HYPERTENSION) HYPOTHYROIDISM (Renamed from ADULT HYPOTHYROIDISM) Hysterectomy INCREASED BMI (Renamed from OVERWEIGHT) MORBID OBESITY WITH BMI OF 70 AND OVER, ADULT MRSA R breast, HTN, depression PARAMJIT (obstructive sleep apnea) Ovarian cancer, disseminated Palpitations PAROXYSMAL ATRIAL FIBRILLATION SOB (SHORTNESS OF BREATH) ON EXERTION Historical No qualifying data Procedure/Surgical History Cholecystectomy Gastric bypass Rotator cuff repair Appendectomy Hysterectomy Cardiac catheterization Medications Home Medications (20) Active amLODIPine 10 mg oral tablet 10 mg = 1 tab(s), Oral, qDay atorvastatin 10 mg oral tablet 10 mg = 1 tab(s), Oral, qDay busPIRone 15 mg oral tablet 15 mg = 1 tab(s), Oral, TID Eliquis 5 mg oral tablet 5 mg = 1 tab(s), Oral, BID fluticasone proprionate NASAL 50 mcg/ spray 50 mcg = 1 spray(s), PRN, Inhalation, BID gabapentin 300 mg oral capsule 600 mg = 2 cap(s), Oral, BID hydrOXYzine hydrochloride 25 mg oral tablet 25 mg = 1 tab(s), PRN, Oral, q8h isosorbide mononitrate 60 mg oral tablet, extended release 60 mg = 1 tab(s), Oral, qAM KlonoPIN 0.5 mg oral tablet 0.5 mg = 1 tab(s), Oral, qHS Lasix 20 mg oral tablet 20 mg = 1 tab(s), Oral, BID levocetirizine 5 mg oral tablet 5 mg = 1 tab(s), Oral, qPM lisinopril 10 mg oral tablet 10 mg = 1 tab(s), Oral, qDay Minipress 1 mg oral capsule 1 mg = 1 cap(s), Oral, qHS omeprazole 20 mg oral delayed release capsule 20 mg = 1 cap(s), Oral, qDayAC Pataday 0.2% ophthalmic solution 1 drop(s), Eyes, both, qDay potassium chloride 10 mEq oral capsule, extended release 10 mEq = 1 cap(s), PRN, Oral, qDay QUEtiapine 300 mg oral tablet 300 mg = 1 tab(s), Oral, qHS sotalol 120 mg oral tablet 120 mg = 1 tab(s), Oral, BID topiramate 25 mg oral capsule 50 mg = 2 cap(s), Oral, qAM topiramate 25 mg oral tablet 25 mg = 1 tab(s), Oral, qPM Allergies Augmentin (Swelling of throat, Hives) Contrast Dye(s) (Swelling of throat, Hives) Augmentin XR (unspecified) amoxicillin (unspecified) amoxicillin-clavulanate (Unknown) iodine (unspecified) Social History Smoking Status - 07/05/2016 Never smoker Alcohol Use: None., 12/17/2020 Nutrition/Health Caffeine intake amount: 2 cups per day., 12/17/2020 Substance Abuse Use: Never., 12/17/2020 Tobacco Nicotine Use: Never (less than 100 in lifetime)., 12/17/2020 Family History Asthma: Father. Cancer: Father. Diabetes mellitus: Mother. HTN - Hypertension: Mother. Heart disease: Father. Hyperchloremia: Mother. Mental illness: Father. Seizure: Father. Immunizations No qualifying data available. Code Status Code Status - Ordered -- 12/06/23 14:51:00 EST, Full Code, Constant Order Digitally Signed by SARAH FANG MD on 12/06/2023 04:17 PM Digitally Signed by SARAH FANG MD on 12/06/2023 04:21 PM Digitally Signed by SARAH FANG MD on 12/06/2023 05:53 PM Digitally Signed by SARAH FANG MD on 12/06/2023 05:54 PM [facility] 12-06-2023 Orthopaedic surge ry Consult note Date of Service 12/06/2023 Reason for Consultation Left tibia fracture History of Present Illness 53-year-old female presents the [place] emergency department with left knee pain after a mechanical ground-level fall. Patient was at home attempting to walk with her walker when suddenly she felt her knee give out and she fell onto her left side. She was unable to ambulate and initially presented to [facility] where x-rays were performed. They demonstrated a closed displaced left proximal tibia fracture, they requested a CT however the patient exceeded the weight limit on the CT scanner at [facility] so she was transferred here to [facility] for further care. She currently denies any numbness or tingling distally in her left lower extremity, she denies any other orthopedic complaints. She does report a history of A-fib and also admits to regularly vaping nicotine however she denies history of diabetes. Review of Systems REVIEW OF SYSTEMS: No fever, no chills, no weight change. HEENT: No sore throat, earache, or congestion. No neck pain. Heart: No chest pain. No palpitations. Lungs: No shortness of breath or cough. GI: No nausea, no vomiting, no diarrhea, no constipation, no anorexia. : No dysuria, frequency or urgency. No hematuria. Musculoskeletal: see above Skin: No rash or itching. Psychiatric: No anxiety, no depression. Endocrine: No polyuria or polydipsia. Physical Exam Vitals and Measurements T: 36.1 C (Oral) HR: 61 RR: 20 BP: 102/68 SpO2: 96% WT: 209.8 kg Weight Dosing Weight: 209.8 kg (12/06/23) General: NAD, A&Ox3 HEENT: normocephalic, atraumatic, EOMI intact CV: pulses regular throughout, brisk cap refill throughout, Pulm: normal work of breathing, equal chest rise bilaterally, no intercostal retractions or conversational dyspnea GI: abdomen is soft, nontender, nondistended, no rigidity or guarding Psych: calm and cooperative Left lower extremity: Skin is dry intact over the left lower extremity There is mild swelling about the left proximal tibia although it is difficult to appreciate given the patient's body habitus Patient has no pain with active or passive extension and flexion of ankle and toes Sensation intact to light touch L4-S1 2+ dorsalis pedis pulse Remainder secondary survey is negative Lab Results 12/05 12:23 WBC: 8.3 Hgb: 11.8 L Hct: 36.3 Platelet: 242 Neutrophil %: 77.1 H Protime: 12.0 PT International Ratio: 1.0 Glucose Level: 104 Sodium Level: 141 Potassium Level: 4.5 BUN: 19.0 Creatinine Lvl (s): 0.88 Imaging Results and Diagnostics CT Pelvis w/o Contrast Result Date: December 06, 2023 Verified By: ARNIE NATION MD CLINICAL STATEMENT: IMPRESSION: Patient body habitus results in severe quantum mottle limiting some detail.In that context, no acute osseous abnormality is identified. I have personally reviewed the images of this examination and agree with theresident's findings and interpretation. CT Knee w/o Contrast Left Result Date: December 06, 2023 Verified By: ARNIE NATION MD CLINICAL STATEMENT: IMPRESSION: Comminuted, displaced, and impacted fracture of the proximal tibialmetadiaphysis. Additional nondisplaced oblique fracture through the fibularhead. No intra-articular extension is identified for either fracture. I have personally reviewed the images of this examination and agree with theresident's findings and interpretation. XR Chest 1 View Result Date: December 06, 2023 Verified By: ARNIE NATION MD CLINICAL STATEMENT: IMPRESSION: No acute radiographic findings. Assessment/Plan Fall Closed displaced left proximal tibial shaft fracture -53-year-old female presents after mechanical ground-level fall this was a closed, isolated injury. Patient is NV intact. -I explained to the patient the need for surgical intervention to prevent major morbidity mortality with nonoperative treatment. Patient voiced understanding and was agreeable to proceed. -Will obtain informed consent and plan for left knee spanning external fixator with Dr. Nye on 12/07/2023. -Patient placed in a knee immobilizer -Hold any chemical DVT prophylaxis at this time - will order SCDs -Pain control -Percocet/morphine -Bedrest, NWB left lower extremity -N.p.o. at midnight -Ancef on-call to the OR -We will order type and screen preoperatively. Patient's current hemoglobin 11.8, platelets 242 - test pending -Appreciate medical optimization from Dr. Mejia and hospitalist team -Plan discussed with Dr. Nye Orders: Assign to Observation status Problem List/Past Medical History Ongoing Atrial fibrillation Bipolar 1 disorder BIPOLAR DISORDER CHEST PAIN Chest pain CHF (congestive heart failure) DEPRESSION (Renamed from BLUES) Gastric bypass GASTROESOPHAGEAL REFLUX DISEASE, ESOPHAGITIS PRESENCE NOT SPECIFIED heart catheterization HTN - Hypertension HYPERTENSION, UNSPECIFIED (Renamed from ESSENTIAL (PRIMARY) HYPERTENSION) HYPOTHYROIDISM (Renamed from ADULT HYPOTHYROIDISM) Hysterectomy INCREASED BMI (Renamed from OVERWEIGHT) MORBID OBESITY WITH BMI OF 70 AND OVER, ADULT MRSA R breast, HTN, depression PARAMJIT (obstructive sleep apnea) Ovarian cancer, disseminated Palpitations PAROXYSMAL ATRIAL FIBRILLATION SOB (SHORTNESS OF BREATH) ON EXERTION Historical No qualifying data Procedure/Surgical History Cholecystectomy Gastric bypass Rotator cuff repair Appendectomy Hysterectomy Cardiac catheterization Medications Inpatient No active inpatient medications Home amLODIPine 10 mg oral tablet, 10 mg= 1 tab(s), Oral, qDay atorvastatin 10 mg oral tablet, 10 mg= 1 tab(s), Oral, qDay busPIRone 15 mg oral tablet, 15 mg= 1 tab(s), Oral, TID Eliquis 5 mg oral tablet, 5 mg= 1 tab(s), Oral, BID fluticasone proprionate NASAL 50 mcg/ spray, 50 mcg= 1 spray(s), Inhalation, BID, PRN gabapentin 300 mg oral capsule, 600 mg= 2 cap(s), Oral, BID hydrOXYzine hydrochloride 25 mg oral tablet, 25 mg= 1 tab(s), Oral, q8h, PRN isosorbide mononitrate 60 mg oral tablet, extended release, 60 mg= 1 tab(s), Oral, qAM KlonoPIN 0.5 mg oral tablet, 0.5 mg= 1 tab(s), Oral, qHS Lasix 20 mg oral tablet, 20 mg= 1 tab(s), Oral, BID levocetirizine 5 mg oral tablet, 5 mg= 1 tab(s), Oral, qPM lisinopril 10 mg oral tablet, 10 mg= 1 tab(s), Oral, qDay Minipress 1 mg oral capsule, 1 mg= 1 cap(s), Oral, qHS omeprazole 20 mg oral delayed release capsule, 20 mg= 1 cap(s), Oral, qDayAC Pataday 0.2% ophthalmic solution, 1 drop(s), Eyes, both, qDay potassium chloride 10 mEq oral capsule, extended release, 10 mEq= 1 cap(s), Oral, qDay, PRN QUEtiapine 300 mg oral tablet, 300 mg= 1 tab(s), Oral, qHS sotalol 120 mg oral tablet, 120 mg= 1 tab(s), Oral, BID topiramate 25 mg oral capsule, 50 mg= 2 cap(s), Oral, qAM topiramate 25 mg oral tablet, 25 mg= 1 tab(s), Oral, qPM Allergies Augmentin (Swelling of throat, Hives) Contrast Dye(s) (Swelling of throat, Hives) Augmentin XR (unspecified) amoxicillin (unspecified) amoxicillin-clavulanate (Unknown) iodine (unspecified) Social History Smoking Status - 07/05/2016 Never smoker Alcohol Use: None., 12/17/2020 Nutrition/Health Caffeine intake amount: 2 cups per day., 12/17/2020 Substance Abuse Use: Never., 12/17/2020 Tobacco Nicotine Use: Never (less than 100 in lifetime)., 12/17/2020 Family History Asthma: Father. Cancer: Father. Diabetes mellitus: Mother. HTN - Hypertension: Mother. Heart disease: Father. Hyperchloremia: Mother. Mental illness: Father. Seizure: Father. Immunizations No qualifying data available. Digitally Signed by ANATOLIY AYALA DO on 12/06/2023 04:16 PM [facility] 12-06-2023 Evaluation + Plan note Extrac hiram from: Title:History and Physical Author:ERIS FANG MD Date:12/06/23 Fall Assessment 1. Comminuted proximal tibial fracture, left 2. Nondisplaced oblique fracture of the left fibular head 3. Atrial fibrillation Eliquis 4. Hypertension 5. PARAMJIT not on CPAP Chronic heart failure preserved ejection fraction 6. Other medical history including ovarian cancer, gastric bypass, hypothyroidism, morbid obesity Plan 1. EKG reviewed sinus rhythm heart rate controlled. She mentioned that the last time she took Eliquis was yesterday. Of note she does mention that she has a history of sleep apnea but does not use CPAP. She will benefit from end-tidal monitoring postoperatively. Noncardiac surgical score of 1, low risk, patient is medically optimized for surgery. Orthopedic consult. Hold Eliquis. N.p.o. after midnight Initially she was hypoxic on presentation documented 84% but when I did see her she was on room air. She does not use oxygen or CPAP. This document was transcribed using a voice recognition software and may contain typographical errors. Orders: HYDROmorphone, Start: 12/06/23 16:15:00 EST, Dose = 0.5 mg, = 0.5 mL, IV Push, Once, Stop: 12/06/23 16:15:00 EST, 12/06/23 16:14:00 EST Assign to Observation status Consult to Physician Future Appointments Appointment Date:12/24/2023 02:00:00 PM Scheduled Provider: Location:[facility] Appointment Type:CV OV Future Scheduled Tests Radiology* NM Myocardial Spect Rest/Stress 07/16/22 [facility] 03-04-2024 Note ORIGINAL EXAMINATION: CT OF THE LEFT KNEE WITHOUT CONTRAST 12/06/2023 1:48 pm TECHNIQUE: CT of the left knee was performed without the administration of intravenous contrast. Multiplanar reformatted images are provided for review. Automated exposure control, iterative reconstruction, and/or weight based adjustment of the mA/kV was utilized to reduce the radiation dose to as low as reasonably achievable. COMPARISON: Same day knee x-ray HISTORY ORDERING SYSTEM PROVIDED HISTORY: Reason for Exam: Comminuted proximal tibial fracture FINDINGS: Bones: There are is a comminuted mildly displaced, impacted, and laterally apex angulated fracture involving the proximal tibial metadiaphysis. There is approximately 2.1 cm of impaction noted medially as well as approximately 1.1 cm of medial displacement of the distal fracture. There is no apparent involvement of the tibial plateau. There is an additional subtle oblique nondisplaced she has its fracture through the fibular head best appreciated on the coronal series image 25. There is no intra-articular extension of either fracture identified. Soft Tissue: There is moderate soft tissue swelling particularly along the lateral aspect of the leg adjacent to the fracture sites. No localized hematoma is identified. Joint: The tibia/femur and tibia/fibula articulation are maintained. There is mild tricompartmental degenerative changes. IMPRESSION: Comminuted, displaced, and impacted fracture of the proximal tibial metadiaphysis. Additional nondisplaced oblique fracture through the fibular head. No intra-articular extension is identified for either fracture. I have personally reviewed the images of this examination and agree with the resident's findings and interpretation. Interpreted by: Arnie Nation Preliminary Report By: Lit Gambino Electronically signed By Arnie Nation Dictated Date: 12/06/2023 1:49:27 PM Prelim Date: 12/06/2023 2:04:44 PM Sign Date: 12/06/2023 2:04:44 PM Ordering Provider: [facility]03-04-2024 Note ORIGINAL EXAMINATION: CT OF THE PELVIS WITHOUT CONTRAST 12/06/2023 1:37 pm TECHNIQUE: CT of the pelvis was performed without the administration of intravenous contrast. Multiplanar reformatted images are provided for review. Adjustment of mA and/or kV according to patient size was utilized. Automated exposure control, iterative reconstruction, and/or weight based adjustment of the mA/kV was utilized to reduce the radiation dose to as low as reasonably achievable. COMPARISON: Same day left knee x-ray. HISTORY ORDERING SYSTEM PROVIDED HISTORY: Reason for Exam: Comminuted proximal tibial fracture, PT IS A TRANSFER, STATES FELL ON KNEE WHEN TRYING TO SIT DOWN, PAIN IN LEFT HIP fall let hip pain FINDINGS: Patient body habitus results in significant quantum mottle limiting some details. Bones: No evidence of acute fracture or dislocation. No aggressive appearing osseous abnormality or periostitis. Soft Tissue: No significant soft tissue edema or fluid collections. Visualized peritoneal/pelvic contents are without obvious acute abnormality. Joint: There is mild degenerative changes of bilateral hip and SI joints. Severe degenerative changes L5-S1. IMPRESSION: Patient body habitus results in severe quantum mottle limiting some detail. In that context, no acute osseous abnormality is identified. I have personally reviewed the images of this examination and agree with the resident's findings and interpretation. Interpreted by: Arnie Nation Preliminary Report By: Lit Gambino Electronically signed By Arnie Nation Dictated Date: 12/06/2023 1:38:19 PM Prelim Date: 12/06/2023 2:06:29 PM Sign Date: 12/06/2023 2:06:29 PM Ordering Provider: [facility]03-04-2024 Note ORIGINAL EXAMINATION: ONE XRAY VIEW OF THE CHEST12/06/2023 12:13 pm COMPARISON: 11/12/2020 HISTORY: ORDERING SYSTEM PROVIDED HISTORY: Reason for Exam: pain; trauma patient FINDINGS: The heart size is stable. The pulmonary vascularity is within normal limits. There is no pleural effusion or pneumothorax. The lungs are clear. IMPRESSION: No acute radiographic findings. Interpreted by: Arnie Nation Preliminary Report By: Arnie Nation Electronically signed By Arnie Nation Dictated Date: 12/06/2023 1:19:42 PM Prelim Date: 12/06/2023 1:20:15 PM Sign Date: 12/06/2023 1:20:15 PM Ordering Provider: [facility]11-26-2023 Note. MICRO - Microbiology PROCEDURE: Blood Culture (bacterial) [*1] SOURCE: Blood BODY SITE: COLLECTED DATE/TIME: 08/23/2023 18:34 EST RECEIVED DATE/TIME: 08/24/2023 15:11 EST START DATE/TIME: 08/24/2023 15:12 EST FREE TEXT SOURCE: FINAL REPORTS Final Report [] Verified Date/Time/Personnel: 08/29/2023 15:59 EST Blood Culture: No Growth at 5 days. PRELIMINARY REPORTS Preliminary Report [] Verified Date/Time/Personnel: 08/24/2023 15:59 EST Culture has been received in lab and is no growth to date. Routine cultures are held for 5 days. Performing Locations *1: This test was performed at: [address]08-29-2023 Note. MICRO - Microbiology PROCEDURE: Blood Culture (bacterial) [*1] SOURCE: Blood BODY SITE: COLLECTED DATE/TIME: 08/23/2023 18:34 EST RECEIVED DATE/TIME: 08/24/2023 15:11 EST START DATE/TIME: 08/24/2023 15:12 EST FREE TEXT SOURCE: FINAL REPORTS Final Report [] Verified Date/Time/Personnel: 08/29/2023 15:59 EST Blood Culture: No Growth at 5 days. PRELIMINARY REPORTS Preliminary Report [] Verified Date/Time/Personnel: 08/24/2023 15:59 EST Culture has been received in lab and is no growth to date. Routine cultures are held for 5 days. Performing Locations *1: This test was performed at: [address], [address] [place] [address] ([facility]05-25-2023 Note. MICRO - Microbiology PROCEDURE: Blood Culture (bacterial) [*1] SOURCE: Blood BODY SITE: COLLECTED DATE/TIME: 05/19/2023 21:15 EDT RECEIVED DATE/TIME: 05/20/2023 14:59 EDT START DATE/TIME: 05/20/2023 15:00 EDT FREE TEXT SOURCE: FINAL REPORTS Final Report [] Verified Date/Time/Personnel: 05/25/2023 15:59 EDT Blood Culture: No Growth at 5 days. PRELIMINARY REPORTS Preliminary Report [] Verified Date/Time/Personnel: 05/20/2023 15:59 EDT Culture has been received in lab and is no growth to date. Routine cultures are held for 5 days. Performing Locations *1: This test was performed at: [address], [facility] , [facility] ([place])05-25-2023 Note. MICRO - Microbiology PROCEDURE: Blood Culture (bacterial) [*1] SOURCE: Blood BODY SITE: COLLECTED DATE/TIME: 05/19/2023 21:00 EDT RECEIVED DATE/TIME: 05/20/2023 14:57 EDT START DATE/TIME: 05/20/2023 15:00 EDT FREE TEXT SOURCE: FINAL REPORTS Final Report [] Verified Date/Time/Personnel: 05/25/2023 15:59 EDT Blood Culture: No Growth at 5 days. PRELIMINARY REPORTS Preliminary Report [] Verified Date/Time/Personnel: 05/20/2023 15:59 EDT Culture has been received in lab and is no growth to date. Routine cultures are held for 5 days. Performing Locations *1: This test was performed at: [address], [facility] , [facility] ([place])01-26-2023 Miscellaneous Notes* Telephone Encounter - Petra Sultana - 01/26/2023 12:07 PM EDT Patient was notified to contact her insurance to find a provider in her network. * Telephone Encounter - Abebe Vincent LPN - 01/26/2023 11:03 AM EDT Pt was dismissed from the Department on 06/20/19, she CANNOT establish care with anyone in [facility]. Also, [facility] is closed so she should remain with her current PCP (Dr. Eliane Gonsalez) or she can look at a different health center or outside [facility]. Abebe Vincent LPN * Telephone Encounter - Petra Sultana - 01/26/2023 10:42 AM EDT Patient is requesting to re-establish her care under [facility]. Patient was discharged from the services of Dr. Wade in 2019. Since he is the only provider accepting new patients at this time, she is requesting to be allowed back into his services. Patient is currently at [facility] but will need a PCP to follow up with after she is discharged. Please advise patient of provider's decision at ph. [phone]. [facility]23 NoteHNO ID: [id number] Author: Sangita Alas RN Service: Radiology Author Type: Registered Nurse Type: Progress Notes Filed: 10/29/2022 2:19 PM Note Text: RADIOLOGY SERVICE PROGRESS NOTE SERVICE DATE: 10/29/2022 SERVICE TIME: 2:13 PM PATIENT IDENTITY VERIFICATION COMPLETED USING TWO (2) STANDARD IDENTIFIERS: Name and Date of confirmed by patient verbally and Name and Date of confirmed by identification band PATIENT GENDER DATA: female ALLERGIES: Reviewed and unchanged MEDICATIONS REVIEWED BY: Modern Languages Professor PROCEDURE TYPE: NM STRESS: 0.4 mg of Lexiscan was administered IV at 1418 by Sangita Alas RN . Reversal agent used: None. Expiration date: 04MAY2026 Lot#: [id number] IV SITE: Ambulatory: A Saline lock was inserted per protocol POST EXAM PIV STATUS: Discontinued PATIENT DISCHARGED TO: Ambulatory patient, left [place] department area. A Diagnostic radioactive procedure has taken place, with no further precautions necessary other than routine body substance precautions. 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 No PATIENT GENDER DATA: .female ALLERGIES: Reviewed and unchanged MEDICATIONS REVIEWED: Yes PATIENT RELEVANT IMPLANT DATA REVIEWED: Not Applicable CREATININE: Creatinine Date Value Ref Range Status 12/12/2018 0.81 0.58 - 0.96 mg/dL Final 06/28/2018 0.76 0.58 - 0.96 mg/dL Final Creatinine, Whole Blood (iSTAT) Date Value Ref Range Status 03/31/2018 1.00 0.70 - 1.40 mg/dL Final eGFR-All Other Races Date Value Ref Range Status 12/12/2018 >60 . Final Comment: eGFR (Estimated GFR) Units of measure: mL/min/1.73 meters squared eGFR is derived from the reexpressed MDRD Study equation using the following parameters: serum creatinine, age, gender and race. The creatinine assay has been calibrated to be traceable to IDMS. An eGFR <60 mL/min/1.73m2 for >3 months is consistent with chronic kidney disease. Refer to KDOQI guidelines for clinical interpretation. In patients with unstable renal function, e.g. those with acute kidney injury, the eGFR may not accurately reflect actual GFR. eGFR- Date Value Ref Range Status 12/12/2018 >60 Final P.O.C.T. RESULTS: N/A October 29, [address] PERFORMED: No IV SITE: Ambulatory: A peripheral IV was started in the Left hand with a Angio cath: 24 gauge. POST EXAM PIV STATUS: Discontinued PROCEDURE TYPE: NM Stress: 15.5 mCi [id number] was administered IV for Rest Imaging at 13:00 by . 50 mCi [id number]-Iktrwzj was administered IV for Stress Imaging at 1418 by yomi. ADMINISTRATION TIME: PATIENT DISCHARGED TO: Ambulatory patient, left [place] department area. A Diagnostic radioactive procedure has taken place, with no further precautions necessary other than routine body substance precautions. More information regarding radiation safety can be found using this link: [email or web address] [email or web address]%20Nuclear%20Medicine%[email or web address] SIGNATURE: RT Echo(R) PATIENT NAME: Quinten Yarbrough DATE: October 29, 2022 TIME: 1:03 PM PAGER[facility]CONTACT #:[facility]01-26-2023 History of Present illness Narrative* RT Zuhair(R) - 10/29/2022 1:30 PM EST RADIOLOGY SERVICE PROGRESS NOTE SERVICE DATE: 10/29/2022 SERVICE TIME: 1:03 PM PATIENT IDENTITY VERIFICATION COMPLETED USING TWO (2) STANDARD IDENTIFIERS: Name and Date of confirmed by patient verbally FALL SCREENING: Has the patient had 2 falls in the last year or 1 fall with injury or currently using an Ambulatory Assistive Device (Walker, Cane, Wheelchair, Crutches, etc.)? No PATIENT GENDER DATA: .female ALLERGIES: Reviewed and unchanged MEDICATIONS REVIEWED: Yes PATIENT RELEVANT IMPLANT DATA REVIEWED: Not Applicable CREATININE: Creatinine Date Value Ref Range Status 12/12/2018 0.81 0.58 - 0.96 mg/dL Final 06/28/2018 0.76 0.58 - 0.96 mg/dL Final Creatinine, Whole Blood (iSTAT) Date Value Ref Range Status 03/31/2018 1.00 0.70 - 1.40 mg/dL Final eGFR-All Other Races Date Value Ref Range Status 12/12/2018 >60 . Final Comment: eGFR (Estimated GFR) Units of measure: mL/min/1.73 meters squared eGFR is derived from the reexpressed MDRD Study equation using the following parameters: serum creatinine, age, gender and race. The creatinine assay has been calibrated to be traceable to IDMS. An eGFR <60 mL/min/1.73m2 for >3 months is consistent with chronic kidney disease. Refer to KDOQI guidelines for clinical interpretation. In patients with unstable renal function, e.g. those with acute kidney injury, the eGFR may not accurately reflect actual GFR. eGFR- Date Value Ref Range Status 12/12/2018 >60 Final P.O.C.T. RESULTS: N/A October 29, [address] PERFORMED: No IV SITE: Ambulatory: A peripheral IV was started in the Left hand with a Angio cath: 24 gauge. POST EXAM PIV STATUS: Discontinued PROCEDURE TYPE: NM Stress: 15.5 mCi [id number]-Kkyowyu was administered IV for Rest Imaging at 13:00 by .. 50 mCi [id number]-Gfugjtp was administered IV for Stress Imaging at 1418 by yomi. ADMINISTRATION TIME: PATIENT DISCHARGED TO: Ambulatory patient, left [place] department area. A Diagnostic radioactive procedure has taken place, with no further precautions necessary other than routine body substance precautions. More information regarding radiation safety can be found usingthis link: [email or web address]-% 20Diagnostic%20Nuclear%20Medicine%20Procedures.pdf SIGNATURE: KAMALJIT Dodge) PATIENT NAME: uQinten Yarbrough DATE: October 29, 2022 TIME: 1:03 PM PAGER/CONTACT #: * Sangita Alas RN - 10/29/2022 1:30 PM EST RADIOLOGY SERVICE PROGRESS NOTE SERVICE DATE: 10/29/2022 SERVICE TIME: 2:13 PM PATIENT IDENTITY VERIFICATION COMPLETED USING TWO (2) STANDARD IDENTIFIERS: Name and Date of confirmed by patient verbally and Name and Date of confirmed by identification band PATIENT GENDER DATA: female ALLERGIES: Reviewed and unchanged MEDICATIONS REVIEWED BY: Modern Languages Professor PROCEDURE TYPE: NM STRESS: 0.4 mg of Lexiscan was administered IV at 1418 by Sangita Alas RN . Reversal agent used: None. Expiration date: 04MAY2026 Lot#: [id number] IV SITE: Ambulatory: A Saline lock was inserted per protocol POST EXAM PIV STATUS: Discontinued PATIENT DISCHARGED TO: Ambulatory patient, left [place] department area. A Diagnostic radioactive procedure has taken place, with no further precautions necessary other than routine body substance precautions. More information regarding radiation safety can be found usingOptaHEALTHs link: [email or web address] 20Diagnostic%20Nuclear%20Medicine%20Procedures.[email or web address] SIGNATURE: Sangita Alas RN PATIENT NAME: Quinten Yarbrough DATE: October 29, 2022 TIME: 2:13 PM PAGER/CONTACT #: [phone] [facility] History of Past illness Narrative* Problem Noted Date Resolved Date Obesity, Class III, BMI >= 40 03/29/2018 Abdominal pain 09/15/2011 06/30/2017 Hypothyroidism 05/01/2011 06/30/2017 Morbid obesity 11/29/2008 12/12/2018 documented as of this encounter (statuses as of 09/11/2022) [facility] History of Past illness Narrative* Problem Noted Date Resolved Date Obesity, Class III, BMI >= 40 03/29/2018 Abdominal pain 09/15/2011 06/30/2017 Hypothyroidism 05/01/2011 06/30/2017 Morbid obesity 11/29/2008 12/12/2018 documented as of this encounter (statuses as of 10/30/2022) [facility] History of Past illness Narrative* Problem Noted Date Resolved Date Obesity, Class III, BMI >= 40 03/29/2018 Abdominal pain 09/15/2011 06/30/2017 Hypothyroidism 05/01/2011 06/30/2017 Morbid obesity 11/29/2008 12/12/2018 documented as of this encounter (statuses as of 01/26/2023) [facility] Diagnosis Other chest pain- Primary [facility] Other chest pain documented in this encounter [facility] course Narrative No data available for this section [facility] Reason for referral (narrative)* Diagnostic Procedure Only (Routine) - Pending Review Specialty Diagnoses / Procedures Referred By Contac t Referred To Contact MOLECULAR & FUNCTIONAL IMAGING Diagnoses Other chest pain Procedures NM CARDIAC PERF STRESS/PHARM MYOCARDIAL SPECT MULTIPLE STUDIES Julio C Morrissey MD [address] [place] [address] Molecular & Functional Imaging [address] [place] [address] Referral ID Status Reason Start Date Expiration Date Visits Requested Visits Authorized [id number] Pending Review Auto-Generat ed Referral 2 10/10/2023 1 1 [facility] for referral (narrative)* Diagnostic Procedure Only (Routine) - Closed Specialty Diagnoses / Procedures Referred By Contac t Referred To Contact MOLECULAR & FUNCTIONAL IMAGING Diagnoses Other chest pain Procedures NM CARDIAC PERF STRESS/PHARM MYOCARDIAL SPECT MULTIPLE STUDIES Julio C Morrissey MD [address] [place] [address] Molecular & Functional Imaging [address] [place] [address] Referral ID Status Reason Start Date Expiration Date V isits Requested Visits Authorized [id number] Closed Auto-Generate d Referral 10/15/2022 11/15/2022 2 2 [facility] Course * Marianna Casiano MD - 12/20/2019 12:13 PM EDT Hospitalist Discharge Summary Quinten Yarbrough : 1970 Admit date: 12/14/2019 Discharge date: 12/20/19 Admitting Physician: No admitting provider for patient encounter. Discharge Physician: MARIANNA CASIANO MD Primary Care Physician: Dina Wade MD Visit Status: Admission Code Status: Full Code Discharge Diagnoses: Primary Problem Hypovolemic shock (HCC) Hospital Problems Septic shock resolving-Likely leg wounds-Blood cultures coagulase negative staph likely contaminant -Metabolic encephalopathy. -Acute renal failure with anion gap metabolic acidosis-resolved. HD 1 -Paroxysmal A. Fib-on home eliquis -Chronic right leg wounds - shari intertrigo - polypharmacy -Debility -? Pancreatitis Chronic problems -Bipolar disorder -Morbid obesity -Normocytic normochromic anemia -Obstructive sleep apnea Hospital Course: Patient is a morbidly obese (>40.0) 49 y.o. female with Morbid obesity, with paramjit on cpap, lymphedema, leg wounds was brought to [facility] ED with enecphalopathy and was found to be in colette., hypovolemic, and has been resuscitated with IVF and norepinephrine via peripheral vein and care [facility] ICU. ID consulted, she was treated with IV Teflaro, de-escalate oral cephalexin on discharge. Nephrologyconsulted. She had HD 1, creatinine improved. Nephrology signed off. Psychiatric consulted, recommending to hold home Lexapro, Vistaril, Topamax, started on Abilify. Blood cultures grew Staphylococcus hominis- contaminant Discharge Concerns/Recommendations: Consider referral to bariatric surgery Procedures: As above Consults: IP CONSULT TO NEPHROLOGY IP WOUND CARE NURSE CONSULT TO EVAL IP CONSULT TO INFECTIOUS DISEASES IP CONSULT TO DIETITIAN IP CONSULT TO PSYCHIATRY Discharge Instructions: Diet: DIET CARDIAC; Low Sodium (2 GM); Dental Soft Dietary Nutrition Supplements: Wound Healing Oral Supplement Activity: as tolerated Follow Up: Dina Wade MD [address] [place] [address] [address] [address] Call in 2 days Hospital f/u, JOSE LUIS visit with in week Disposition: Patient discharged in stable condition to SNF. Vitals: BP 122/65 Pulse 72 Temp 97.6 F (36.4 C) (Temporal) Resp 18 Ht 5' 5 (1.651 m) Wt (!) 435 lb 1.6 oz (197.4 kg) SpO2 97% BMI 72.40 kg/m Pulse Ox: SpO2 Av.5 % Min: 97 % Max: 98 % Supplemental O2: O2 Flow Rate (L/min): 2 L/min General appearance: alert and cooperative with exam Lungs: clear to auscultation bilaterally Heart: regular rate and rhythm, S1, S2 normal, no murmur, click, rub or gallop Abdomen: soft, non-tender; bowel sounds normal; no masses, no organomegaly Extremities: Chronic edema,Large area of peeling skin on the right thigh, right calf, moist erythematous rash in skin folds, decubitus ulcer coccyx Neurologic: No obvious focal neurologic deficits. Discharge Medications: Medication List START taking these medications ARIPiprazole 2 MG tablet Commonly known as: ABILIFY Take 1 tablet by mouth daily Start taking on: December 21, 2019 cephALEXin 500 MG capsule Commonly known as: KEFLEX Take 1 capsule by mouth 4 times daily for 4 days doxycycline monohydrate 100 MG capsule Commonly known as: MONODOX Take 1 capsule by mouth every 12 hours for 4 days lidocaine 4 % external patch Place 1 patch onto the skin daily Start taking on: December 21, 2019 miconazole 2 % powder Commonly known as: MICOTIN Apply topically 2 times daily. mineral oil-hydrophilic petrolatum ointment Apply topically as needed. oxyCODONE 5 MG immediate release tablet Commonly known as: ROXICODONE Take 1 tablet by mouth every 6 hours as needed for Pain for up to 3 days. potassium chloride 20 MEQ extended release tablet Commonly known as: KLOR-CON M Take 2 tablets by mouth daily (with breakfast) Start taking on: December 21, 2019 Venelex Oint ointment Apply topically every 8 hours CONTINUE taking these medications apixaban 5 MG Tabs tablet Commonly known as: ELIQUIS lansoprazole 30 MG delayed release capsule Commonly known as: PREVACID sucralfate 1 GM tablet Commonly known as: CARAFATE SUMAtriptan 100 MG tablet Commonly known as: IMITREX Ventolin HFA 108 (90 Base) MCG/ACT inhaler Generic drug: albuterol sulfate HFA STOP taking these medications amLODIPine 10 MG tablet Commonly known as: NORVASC baclofen 10 MG tablet Commonly known as: LIORESAL cyclobenzaprine 5 MG tablet Commonly known as: FLEXERIL escitalopram 20 MG tablet Commonly known as: LEXAPRO furosemide 40 MG tablet Commonly known as: LASIX meclizine 25 MG tablet Commonly known as: ANTIVERT metoclopramide 10 MG tablet Commonly known as: REGLAN topiramate 100 MG tablet Commonly known as: TOPAMAX Vistaril 50 MG capsule Generic drug: hydrOXYzine Where to Get Your Medications These medications were sent to [facility] [address] [place] [address] - P [phone] - F [phone] [id number] [facility] [id number] ARIPiprazole 2 MG tablet cephALEXin 500 MG capsule doxycycline monohydrate 100 MG capsule lidocaine 4 % external patch miconazole 2 % powder mineral oil-hydrophilic petrolatum ointment potassium chloride 20 MEQ extended release tablet Venelex Oint ointment Information about where to get these medications is not yet available Ask your nurse or doctor about these medications oxyCODONE 5 MG immediate release tablet Complexity of Follow up: [] Moderate Complexity: follow up within 7-14 calendar days (77891) [x] Severe Complexity: follow up within 7 calendar days (08988) Follow up Testing, Pending results or Referrals at Transitional Care Visit: [x] yes [] no Instructions to MA: Please call patient on day after discharge (must document patient contacted within 2 business days of discharge). Follow up questions for MA: 1. Did you get medications filled and taking them as instructed from discharge? 2. Are you following your discharge instructions from your hospital stay? 3. Please confirm patient is scheduled for a follow up appointment within the above time frame. Time Spent on discharge is 35 mins in patient examination, evaluation, counseling as well as medication reconciliation, prescriptions for required medications, discharge plan and follow up. Signed: MARIANNA CASIANO MD 12/20/2019, 12:[address] Dina Wade MD for the opportunity to be involved in this patient's care. documented in this encounter Discharge Instructions * Discharge Instr - DONNIE* Riaz Dodge RN - 12/20/2019 12:13 PM EDT Continuity of Care Form Patient Name: Quinten Yarbrough : 1970 Admit date: 12/14/2019 Discharge date: 12/20/2019 Code Status Order: Full Code Advance Directives: Admitting Physician: No admitting provider for patient encounter. PCP: Dina Wade MD Discharging Nurse: Riaz Barber Discharging Hospital Unit/Room#: [id number] Discharging Unit Emergency Contact: Extended Emergency Contact Information Primary Emergency Contact: Brittani Marquez [facility] Relation: Brother/Sister Past Surgical History: Past Surgical History: Procedure Laterality Date APPENDECTOMY CHOLECYSTECTOMY GASTRIC BYPASS SURGERY HYSTERECTOMY SHOULDER SURGERY Left Immunization History: There is no immunization history on file for this patient. Active Problems: Patient Active Problem List Diagnosis Code Tear of left rotator cuff M75.102 Hypovolemic shock ([facility]) R57.1 Acute renal failure (ARF) ([facility]) N17.9 Metabolic acidosis E87.2 Hypokalemia E87.6 Hypocalcemia E83.51 A-fib ([facility]) I48.91 Anxiety F41.9 Depression F32.9 Bipolar disorder, in partial remission, most recent episode depressed ([facility]) F31.75 Wound cellulitis L03.90 Isolation/Infection: Isolation No Isolation Patient Infection Status None to display Nurse Assessment: Last Vital Signs: BP 122/65 Pulse 72 Temp 97.6 F (36.4 C) (Temporal) Resp 18 Ht 5' 5 (1.651 m) Wt (!) 435 lb 1.6 oz (197.4 kg) SpO2 97% BMI 72.40 kg/m Last documented pain score (0-10 scale): Pain Level: 6 Last Weight: Wt Readings from Last 1 Encounters: 12/20/19 (!) 435 lb 1.6 oz (197.4 kg) Mental Status: oriented IV Access: - None Nursing Mobility/ADLs: Walking Assisted Transfer Assisted Bathing Assisted Dressing Assisted Toileting Assisted Feeding Independent Workforce Development Vice President Independent Med Delivery whole Wound Care Documentation and Therapy: Wound 12/14/19 Thigh Right;Medial right inner thigh with purple area (Active) Wound Other 12/17/2019 2:00 PM Dressing Status Changed;Clean;Dry;Intact 12/20/2019 5:23 AM Dressing Changed Changed/New 12/20/2019 5:23 AM Dressing/Treatment Non adherent 12/20/2019 5:23 AM Wound Cleansed Rinsed/Irrigated with saline 12/20/2019 5:23 AM Dressing Change Due 12/18/19 12/18/2019 4:00 PM Wound Length (cm) 3 cm 12/15/2019 8:00 AM Wound Width (cm) 2 cm 12/15/2019 8:00 AM Wound Surface Area (cm^2) 6 cm^2 12/15/2019 8:00 AM Wound Assessment Painful;Slough 12/20/2019 5:23 AM Odor Mild 12/20/2019 5:23 AM Number of days: 6 Wound 12/14/19 Other (Comment) Right right lower leg, mid thigh to ankle red shiny with several open areas weeping (Active) Wound Venous 12/20/2019 5:23 AM Dressing Status Changed;Clean;Dry;Intact 12/20/2019 5:23 AM Dressing Changed Changed/New 12/20/2019 5:23 AM Dressing/Treatment Dry dressing;Non adherent 12/20/2019 5:23 AM Wound Cleansed Rinsed/Irrigated with saline 12/20/2019 5:23 AM Dressing Change Due 12/18/19 12/18/2019 4:00 PM Wound Assessment Bleeding;Painful;Slough 12/20/2019 5:23 AM Drainage Amount Small 12/20/2019 5:23 AM Drainage Description Serosanguinous 12/20/2019 5:23 AM Odor Mild 12/20/2019 5:23 AM Number of days: 6 Wound 12/14/19 Breast Lateral;Left;Lower very red painful odorous under breast to axilla (Active) Offloading for Diabetic Foot Ulcers Other (comment) 12/15/2019 8:00 AM Dressing/Treatment Pharmaceutical agent (see MAR) 12/19/2019 8:00 PM Wound Cleansed Rinsed/Irrigated with saline 12/18/2019 9:30 PM Dressing Change Due 12/18/19 12/18/2019 4:00 PM Wound Assessment Red;Painful 12/19/2019 8:00 PM Drainage Amount None 12/18/2019 4:00 PM Drainage Description Serous 12/18/2019 4:00 PM Odor Strong 12/18/2019 4:00 PM Number of days: 6 Wound 12/14/19 Groin Anterior;Left very red painful odorous groin (Active) Dressing/Treatment Pharmaceutical agent (see MAR) 12/19/2019 8:00 PM Wound Cleansed Soap and water 12/19/2019 8:00 PM Dressing Change Due 12/18/19 12/18/2019 4:00 PM Wound Assessment Red;Painful 12/19/2019 8:00 PM Drainage Amount Scant 12/18/2019 4:00 PM Odor Strong 12/18/2019 4:00 PM Number of days: 6 Elimination: Continence: Bowel: Yes Bladder: Yes Urinary Catheter: None Colostomy/Ileostomy/Ileal Conduit: No Date of Last BM: 12/20/2019 No intake or output data in the 24 hours ending 12/20/19 1213 No intake/output data recorded. Safety Concerns: History of Falls (last 30 days) and At Risk for Falls Impairments/Disabilities: None Nutrition Therapy: Current Nutrition Therapy: - Oral Diet: General Routes of Feeding: Oral Liquids: No Restrictions Daily Fluid Restriction: no Last Modified Barium Swallow with Video (Video Swallowing Test): not done Treatments at the Time of Hospital Discharge: Respiratory Treatments: N/A Oxygen Therapy: is not on home oxygen therapy. Ventilator: - No ventilator support Rehab Therapies: Physical Therapy and Occupational Therapy Weight Bearing Status/Restrictions: No weight bearing restirctions Other Medical Equipment (for information only, NOT a DME order): walker and bedside commode Other Treatments: N/A Patient's personal belongings (please select all that are sent with patient): None RN SIGNATURE: CASE MANAGEMENT/SOCIAL WORK SECTION Inpatient Status Date:12-14-19 Readmission Risk Assessment Score: Readmission Risk Risk of Unplanned Readmission: 20 Discharging to Facility/ Agency Name: [facility] Address:[address] [place] [address] Dialysis Facility (if applicable) Name: Address: Dialysis Schedule: Phone: Fax: Communication Skills Instructor/Fisher Crab signature: PHYSICIAN SECTION Prognosis: Fair Condition at Discharge: Stable Rehab Potential (if transferring to Rehab): Fair Recommended Labs or Other Treatments After Discharge: cbc, bmp weekly Physician Certification: I certify the above information and transfer of Quinten Yarbrough is necessary for the continuing treatment of the diagnosis listed and that she requires [facility] Facility for less 30 days. Update Admission H&P: Changes in H&P as follows - see DC summary PHYSICIAN SIGNATURE: * Additional Instructions* Marianna Casiano MD - 12/20/2019 Your instructions: Recommended diet: diabetic diet Recommended activity: activity as tolerated continue with current treatment plan of adaptic/maxsorb to right LE every 12hrs, Venelex ointment and ET mix to coccyx every 8hrs, aquaphor every 12hrs to LE's/feet, waffle chair cushion, turn/position every 2hrs, [place] bed, Heelmedix boots while in bed. GENERAL ZONES GREEN ZONE: All Clear- Your Symptoms Are Under Control No recurrence of symptoms that led to hospitalization Able to do usual activities No fever No chest pain No shortness of breath This Means You Should: Continue taking your medications as prescribed Continue activity as tolerated Keep all doctor appointments YELLOW ZONE: Caution Recurrence of symptoms that led to hospitalization Fever of 100 degrees or higher Increased fatigue or restlessness Intolerant side-effects of medications Uneasy feeling or that something is wrong This Means You Should: Call your doctor for further instructions RED ZONE: Medical Alert Severe or unrelieved shortness of breath at rest Unrelieved chest pain Confusion or you can't think clearly This Means You Should Call 911 Immediately documented in this encounter History of Present Illness * Valentino Freed MD - 12/20/2019 4:44 PM EDT [facility] Progress Note [facility] H6 TELEMETRY Patient: Quinten Yarbrough Unit/Bed: 6110/[id number] Date of : 1970 Acct: [id number] Admitting Diagnosis: Hypovolemic shock (HCC) [R57.1] Admit Date: 12/14/2019 Hospital Day: 6 Subjective: 49 y.o. year old female who we are seeing in consultation for Colette/ATN and severe acidosis. Interval Hx: No events overnight AF, BP stable Last IHD 12/13 UOP is good and noted Scr at baseline In good spirits No issues Swelling persistent Patient Seen, Chart, Labs, Radiology studies, and Consults reviewed Objective: BP 122/65 Pulse 72 Temp 97.6 F (36.4 C) (Temporal) Resp 18 Ht 5' 5 (1.651 m) Wt (!) 435 lb 1.6 oz (197.4 kg) SpO2 97% BMI 72.40 kg/m No intake or output data in the 24 hours ending 12/20/19 1644 Nad, aox3, sitting in chair dmm ,no jvd Anterior chest is b/l clear Tachycardic, no mrg or rubs +bs soft, nttp, nd +2 bilateral lower ext edema KIM, No asterixis + maloney in place with clear yellow urine noted in the bag Diet: DIET CARDIAC; Low Sodium (2 GM); Dental Soft Dietary Nutrition Supplements: Wound Healing Oral Supplement Medications: mineral oil-hydrophilic petrolatum Topical BID cephALEXin 500 mg Oral 4 times per day doxycycline monohydrate 100 mg Oral 2 times per day potassium chloride 40 mEq Oral Daily with breakfast ARIPiprazole 2 mg Oral Daily apixaban 5 mg Oral BID pantoprazole 40 mg Oral QAM AC lidocaine 1 patch Transdermal Daily miconazole Topical Q8H Venelex Topical Q8H stomahesive in petrolatum Topical 3 times per day sodium chloride flush 10 mL Intravenous 2 times per day sodium chloride flush 10 mL Intracatheter Q8H Continuous Infusions: PRN Meds:acetaminophen, oxyCODONE OR oxyCODONE, sodium chloride flush, magnesium hydroxide, promethazine OR ondansetron, sodium chloride flush DVT Prophylaxis: apixaban Data: CBC: Recent Labs 12/18/194 12/19/19 0246 12/20/19 0049 WBC 11.1* 10.8* 8.3 RBC 2.68* 2.77* 2.60* HGB 8.0* 8.6* 7.9* HCT 24.3* 25.0* 23.7* MCV 90.8 90.4 91.0 RDW 17.0* 16.7* 16.8* PLT 265 242 222 BMP: Recent Labs 12/18/194 12/19/19 0246 12/20/19 0049 NA 140 138 138 K 3.4* 3.6 4.1 CL 110* 110* 110* CO2 25 24 23 PHOS 3.2 3.2 3.1 BUN 30* 18 13 CREATININE 0.85 0.75 0.80 BNP: No results for input(s): BNP in the last 72 hours. PT/INR: No results for input(s): PROTIME, INR in the last 72 hours. APTT: No results for input(s): APTT in the last 72 hours. CARDIAC ENZYMES: No results for input(s): CKMB, CKMBINDEX, TROPONINT in the last 72 hours. Invalid input(s): CKTOTAL;3 FASTING LIPID PANEL:No results found for: CHOL, HDL, TRIG LIVER PROFILE: No results for input(s): AST, ALT, ALB, BILIDIR, BILITOT, ALKPHOS in the last 72 hours. ABGs: Lab Results Component Value Date PH 7.39 12/20/2019 Assessment/Plan: COLETTE/ATN - Severe high anion gap metabolic acidosis (improvng) - metabolic encephalopathy - Septic shock from left leg cellulitis - Htn - afib Dg: Colette/ATN severe acidosis from multifactorial Pacreatitis vs Septic shock vs other. Noted baclofen and topamax listed on home meds per niece patient not taking meds. Plan/ - Scr improving at baseline, uop appropriate, BP stable. - K 4.1 - Cont to encouraged po intake - Do not anticipate any further need of AFLOAT CRYPTOLOGIC MANAGER, ok to remove central Line - Hgb 7.9 stable - keep MAPS > 65 at all times - Ok to use lasix PRN SOB/Hypoxia - Renally dose all meds - will follow/call if any questions - OK to d/c from renal stand point Please do no hesitate to call with any questions Pager [phone] * Ruth Nuno SAP SPECIALIST - 12/20/2019 2:45 PM EDT Physical Therapy Facility/Department: [facility] TELEMETRY Daily Treatment Note NAME: Quinten Yarbrough : 1970 Date of Service: 12/20/2019 Discharge Recommendations: Subacute/[facility] Facility PT Equipment Recommendations Other: pt has bariatric FWW Assessment Body structures, Functions, Activity limitations: Decreased functional mobility ;Decreased safe awareness;Decreased balance;Decreased endurance;Decreased strength;Decreased ADL status Assessment: Pt demos decreased strength, balance, and overall functional mobility. Pt did much better this session. Only requiring min assist for mobility. No PT goals met this session. Recommend SNFat discharge. REQUIRES PT FOLLOW UP: Yes Activity Tolerance Activity Tolerance: Patient limited by fatigue;Patient limited by endurance Patient Diagnosis(es): The encounter diagnosis was Wound cellulitis. has a past medical history of Anxiety and depression, Atrial fibrillation (HCC), and Hypertension. has a past surgical history that includes Gastric bypass surgery; Hysterectomy; Cholecystectomy; Appendectomy; and shoulder surgery (Left). Restrictions Restrictions/Precautions Restrictions/Precautions: (catheter, high fall risk, elevate bed to 30 degrees, waffle cushion, IV) Subjective General Chart Reviewed: Yes Additional Pertinent Hx: wound care center 1x per week. Originally admitted for acute renal failure, fall and inability to get up. + NIV for respiratory distress, + confusion due to encephalopathy Family / Caregiver Present: No Subjective Subjective: Pt supine in the bed. agrees to PT. Wants to get up to chair and use FWW Pain Screening Patient Currently in Pain: Yes Pain Assessment Pain Assessment: 0-10 Pain Level: 3 Pain Type: Acute pain Pain Location: Leg Pain Orientation: Right;Lower Vital Signs Patient Currently in Pain: Yes Orientation Cognition Cognition Overall Cognitive Status: WFL Objective Bed mobility Supine to Sit: Minimal assistance Scooting: Minimal assistance Transfers Sit to Stand: Minimal Assistance Stand to sit: Minimal Assistance Ambulation Ambulation?: Yes Ambulation 1 Surface: level tile Device: Rolling Walker(Bariatric) Assistance: Minimal assistance Distance: 5 feet Stairs/Curb Stairs?: No Exercises Quad Sets: x 10 Gluteal Sets: x 10 Hip Flexion: x 10 Hip Abduction: x 10 Ankle Pumps: x 10 Comments: AROM BLE G-Code OutComes Score AM-PAC Score AM-PAC Inpatient Mobility Raw Score : 9 (12/20/191445) AM-PAC Inpatient T-Scale Score : 30.55 (12/20/191445) Mobility Inpatient CMS 0-100% Score: 81.38 (12/20/191445) Mobility Inpatient CMS G-Code Modifier : CM (12/20/191445) Goals Short term goals Time Frame for Short term goals: 2 weeks Short term goal 1: Bed mobility SBA x1- PROGRESSING Short term goal 2: Transfers SBA x1- PROGRESSING Short term goal 3: Ambulate 50 feet x1 with bariatric FWW with SBA x1 - PROGRESSING Short term goal 4: Standing tolerance >3 minutes without balance loss - PROGRESSING Patient Goals Patient goals : to get better Plan Plan Times per week: 5 Plan weeks: 2 weeks Current Treatment Recommendations: Strengthening, Transfer Training, Endurance Training, ROM, Balance Training, Gait Training, Functional Mobility Training, Safety Education & Training, Home Exercise Program, Positioning Safety Devices Type of devices: Left in chair, Call light within reach, Patient at risk for falls, All fall risk precautions in place Therapy Time Individual Concurrent Group Co-treatment Time In 1355 Time Out 1420 Minutes 25 Timed Code Treatment Minutes: (FA, TP) Ruth Nuno PTA * Aidee Burleson RN - 12/20/2019 11:30 AM EDT Wound Care follow up: Pt premedicated for pain per entry level staff accountant prior to assessment of wounds. Pt's right LE much improved from 12/14 assessment. Medial thighs almost completely healed with dry peeling skin. Multiple partial thickness open areas measured as one area on right posterior to lateral calf, measuring 31 x 14cm (see 3 photos below) Periwounds with dry peeling skin. No erythema or induration. Large amount of serosang drainage, no odor. No purulence noted. Entire leg cleansed with saline, patted dry and Aquaphor applied to dry peeling skin. Adaptic applied over open areas, topped with maxsorb and secured with kerlix and net bandage. Pt tolerated the dressing change well and was able to assist with lifting herleg up for the dressing change. (Right posterior calf) (Right anterior to medial calf-thigh) (right lateral to posterior calf) Coccyx with Unstageable pressure injury measuring 13 x 1.5cm, obscured with 100% thin yellow sloughtissues (see photo below) Periwound clear, no erythema or induration. Small amount of serous drainage noted. Cleansed with saline, patted dry and Venelex ointment applied, topped with ET mix. Yeast rash improved in abdominal folds and left breast fold. +2 palpable DP pulses bilaterally. No LE edema noted. Heels intact. Would recommend to continue with current treatment plan of adaptic/maxsorb to right LE every 12hrs,Venelex ointment and ET mix to coccyx every 8hrs, aquaphor every 12hrs to LE's/feet, waffle chair cushion, turn/position every 2hrs, [place] bed, Heelmedix boots while in bed. * Ar Ordoñez RCP - 12/19/2019 10:35 PM EDT [facility] Respiratory Care Department Progress Note Patient was seen in attempts to fulfill CPAP/BiPAP/AutoPAP order. Patient refused PAP therapy/studyat this time. Patient was educated on medical need and reasoning for physician order to ensure patient was making an informed medical decision. All of the patient's questions were answered at this time and patient was informed that if the patient changes their mind regarding wearing PAP to hit their call light or inform their nurse to contact Respiratory. A second, consecutive night of refusing PAP therapy/study results in order completion in the EMR. If future CPAP/BiPAP/AutoPAP therapy or study is indicated please place another order in the EMR and the assigned Respiratory Therapist will reattempt to fulfill orders. Comment or reasoning for refusal: She tried it last night with a couple types of masks but could not tolerate it and doesn't want to try again tonight Thank you for involving Respiratory in the care of this patient, * Marianna Casiano MD - 12/19/2019 3:06 PM EDT Hospitalist Progress Note 12/19/2019 3:06 PM [phone]: Please page me for patient care issues. [phone]: Please page [facility] night Hospitalist for any issues. Subjective: Admit Date: 12/14/2019 PCP: Dina Wade MD Room#: 6110/[id number] 49 y.o c. Female admitted 12/13 from [facility] w/ septic shock, acute renal failure and encephalopathy. Required HD X1. Interval History: Patient seen and examined No new event overnight. Transferred out of Intensive Care Unit on 12/17/19. Afebrile overnight DIET CARDIAC; Low Sodium (2 GM); Dental Soft Dietary Nutrition Supplements: Wound Healing Oral Supplement Patient Vitals for the past 96 hrs (Last 3 readings): Weight 12/19/19 0615 (!) 436 lb 4.8 oz (197.9 kg) 12/18/19 0402 (!) 399 lb (181 kg) Intake/Output Summary (Last 24 hours) at 12/19/2019 1506 Last data filed at 12/19/2019 0500 Gross per 24 hour Intake 800 ml Output 1700 ml Net -900 ml LABS: CBC: Recent Labs 12/17/19 0210 12/18/19 0414 12/19/19 0246 WBC 13.1* 11.1* 10.8* RBC 2.75* 2.68* 2.77* HGB 8.2* 8.0* 8.6* HCT 24.5* 24.3* 25.0* MCV 89.3 90.8 90.4 RDW 16.5* 17.0* 16.7* PLT 306 265 242 BMP: Recent Labs 12/17/19 1643 12/18/19 0414 12/19/19 0246 NA 140 140 138 K 3.3* 3.4* 3.6 CL 110* 110* 110* CO2 24 25 24 BUN 43* 30* 18 CREATININE 0.94 0.85 0.75 GLUCOSE 98 90 91 CALCIUM 8.4 8.6 8.5 ANIONGAP 6 5 4 LIVER PROFILE: No results for input(s): AST, ALT, BILITOT, ALKPHOS, LABALBU, PROT in the last 72 hours. PT/INR: No results for input(s): PROTIME, INR in the last 72 hours. CARDIAC ENZYMES: No results for input(s): TROPONINI in the last 72 hours. Procalcitonin: Lab Results Component Value Date PROCAL 1.15 12/14/2019 Objective: Vitals: BP 112/75 Pulse 92 Temp 98.2 F (36.8 C) (Oral) Resp 20 Ht 5' 5 (1.651 m) Wt (!) 436 lb 4.8 oz (197.9 kg) SpO2 100% BMI 72.60 kg/m Pulse Ox: SpO2 Av % Min: 100 % Max: 100 % Supplemental O2: O2 Flow Rate (L/min): 2 L/min General appearance: Obese ,No apparent distress,awake alert HEENT: Eyes: No scleral icterus,No pallor Oral: Tongue is semi-moist Cardiovascular: S1S2 heard, RRR Respiratory: Clear to auscultation bilaterally Abdomen: Soft, non-tender, non-distended with normal bowel sounds. Musculoskeletal: No obvious deformities seen Skin: Large area of peeling skin on the right thigh, right calf, moist erythematous rash in skin folds, decubitus ulcer coccyx Neurology- no focal neurological deficits Extremity- no peripheral edema both lower extremities Assessment Active Problems -Septic shock resolving-Likely leg wounds-Blood cultures coagulation-negative staph likely contaminant -Metabolic encephalopathy. -Acute renal failure with anion gap metabolic acidosis-resolved. HD 1 -Paroxysmal A. Fib-on home eliquis -Chronic right leg wounds shari intertrigo - polypharmacy -Debility -? Pancreatitis Chronic problems -Bipolar disorder -Morbid obesity -Normocytic normochromic anemia -Obstructive sleep apnea Plan - on Teflaro.per [id number] to oral cephalexin and doxycycline for 5 more days -Nephrology following. -Psychiatry consulted, recommending to hold home Lexapro, vistaril, topamax . On DVT/ GI prophylaxis Labs ordered for AM Patient was informed about all work up and treatment plan Discussed with nursing staff Advance Directive: Full Code Discharge planning: [facility] in [place] pending precert MARIANNA CASIANO MD Division of Hospitalist Medicine Inpatient Medical Services * Jennifer Zavaleta, RD, LD - 12/19/2019 11:32 AM EDT Nutrition Assessment Type and Reason for Visit: Reassess Nutrition Recommendations: 1. Continue with current diet. 2. Per MNT protocol will send wound healing supplement: fruit punch Emilio at 2 pm (1 packet provides 95 kcals, 14 gm amino acids, 2.5 gm protein). Monitor tolerance and acceptance for need to increase frequency to BID. 3. Recommend MVI and Vitamin C daily to assist with healing. 4. Monitor weight, labs, fluid, and nutritional status. 5. RD will follow up weekly. Nutrition Assessment: Patient reports that she did not eat well this am due to nausea and vomiting-pt reports this is an ongoing issue. She reports gastric sleeve in 2008. Weight prior to this was > 600 lbs. She reports current weight 399 lbs prior to admit. Pt states that she is unable to tolerate oral nutrition supplements; however, she is willing to try wound healing supplement: Emilio. Encouraged high protein food sources at each meal and try consume first. Pt reports upper dentures at home- she reports sores in her mouth. Malnutrition Assessment: Malnutrition Status: At risk for malnutrition Context: Acute illness or injury Nutrition Risk Level: High Nutrient Needs: Estimated Daily Total Kcal: 25-30 kcals per kg = 5953-5115 kcals per day Estimated Daily Protein (g): 1.3-1.5 gm per kg = 74-85 gm per day Estimated Daily Total Fluid (ml/day): Per MD Objective Information: Nutrition-Focused Physical Findings: Abdomen soft, rounded, active bowel sounds, + 3 BLE edema, I/O: +[id number]. Labs: K+ 3.6, BUN 18, Cr .75, Ionized Ca++ 4.20 Wound Type: Multiple, Open Wounds, Pressure Ulcer, Venous Stasis(Colin = 14) Current Nutrition Therapies: Oral Diet Orders: 2gm Sodium, Cardiac(Dental Soft) Oral Diet intake: 76-100%(x 1 meal) Oral Nutrition Supplement (ONS) Orders: None ONS intake: (no supplements ordered) Anthropometric Measures: Ht: 5' 5 (165.1 cm) Current Body Wt: 436 lb (197.8 kg)(bed scale weight appears inaccurate today) Admission Body Wt: 387 lb (175.5 kg) [place] Body Wt: 125 lb (56.7 kg), Nutrition Interventions: Continue current diet, Start ONS Continued Inpatient Monitoring Nutrition Evaluation: Evaluation: Goals set Goals: Patient consume > 75% of her meals. Pt tolerate Emilio without GI complaints. Monitoring: Meal Intake, Supplement Intake, Skin Integrity, Wound Healing, I&O, Weight, Pertinent Labs, Chewing/Swallowing, Nausea or Vomiting, Patient/Family Education Contact Number: [phone] * Valentino Freed MD - 12/19/2019 10:49 AM EDT [facility] Progress Note [facility] H6 TELEMETRY Patient: Quinten Yarbrough Unit/Bed: 6110/842244 Date of : 1970 Acct: [id number] Admitting Diagnosis: Hypovolemic shock (HCC) [R57.1] Admit Date: 12/14/2019 Hospital Day: 5 Subjective: 49 y.o. year old female who we are seeing in consultation for Colette/ATN and severe acidosis. Interval Hx: No events overnight AF, BP stable Last IHD 12/13 UOP is good and noted Scr at baseline K low In good spirits No issues Swelling persistent Patient Seen, Chart, Labs, Radiology studies, and Consults reviewed Objective: BP 112/75 Pulse 92 Temp 98.2 F (36.8 C) (Oral) Resp 20 Ht 5' 5 (1.651 m) Wt (!) 436 lb 4.8 oz (197.9 kg) SpO2 100% BMI 72.60 kg/m Intake/Output Summary (Last 24 hours) at 12/19/2019 1049 Last data filed at 12/19/2019 0500 Gross per 24 hour Intake 800 ml Output 1700 ml Net -900 ml Nad, aox3, sitting in chair dmm ,no jvd Anterior chest is b/l clear Tachycardic, no mrg or rubs +bs soft, nttp, nd +2 bilateral lower ext edema KIM, No asterixis + maloney in place with clear yellow urine noted in the bag Diet: DIET CARDIAC; Low Sodium (2 GM); Dental Soft Medications: potassium chloride 40 mEq Oral Daily with breakfast ARIPiprazole 2 mg Oral Daily apixaban 5 mg Oral BID pantoprazole 40 mg Oral QAM AC ceftaroline fosamil (TEFLARO) IVPB 300 mg Intravenous Q12H lidocaine 1 patch Transdermal Daily miconazole Topical Q8H Venelex Topical Q8H stomahesive in petrolatum Topical 3 times per day mineral oil-hydrophilic petrolatum Topical Daily sodium chloride flush 10 mL Intravenous 2 times per day sodium chloride flush 10 mL Intracatheter Q8H Continuous Infusions: PRN Meds:acetaminophen, oxyCODONE OR oxyCODONE, sodium chloride flush, magnesium hydroxide, promethazine OR ondansetron, sodium chloride flush DVT Prophylaxis:apixaban Data: CBC: Recent Labs 12/17/19 0210 12/18/19 0414 12/19/19 0246 WBC 13.1* 11.1* 10.8* RBC 2.75* 2.68* 2.77* HGB 8.2* 8.0* 8.6* HCT 24.5* 24.3* 25.0* MCV 89.3 90.8 90.4 RDW 16.5* 17.0* 16.7* PLT 306 265 242 BMP: Recent Labs 12/17/19 0210 12/17/19 1643 12/18/19 0414 12/19/19 0246 NA 139 140 140 138 K 3.3* 3.3* 3.4* 3.6 CL 108* 110* 110* 110* CO2 24 24 25 24 PHOS 3.6 -- 3.2 3.2 BUN 55* 43* 30* 18 CREATININE 1.23 0.94 0.85 0.75 BNP: No results for input(s): BNP in the last 72 hours. PT/INR: No results for input(s): PROTIME, INR in the last 72 hours. APTT: Recent Labs 12/16/19 1232 12/16/19 2124 12/17/19 0459 APTT 42.9* 133.1* 105.2* CARDIAC ENZYMES: No results for input(s): CKMB, CKMBINDEX, TROPONINT in the last 72 hours. Invalid input(s): CKTOTAL;3 FASTING LIPID PANEL:No results found for: CHOL, HDL, TRIG LIVER PROFILE: No results for input(s): AST, ALT, ALB, BILIDIR, BILITOT, ALKPHOS in the last 72 hours. ABGs: Lab Results Component Value Date PH 7.40 12/19/2019 Assessment/Plan: - COLETTE/ATN - Severe high anion gap metabolic acidosis (improvng) - metabolic encephalopathy - Septic shock from left leg cellulitis - Htn - afib Dg: Colette/ATN severe acidosis from multifactorial Pacreatitis vs Septic shock vs other. Noted baclofen and topamax listed on home meds per niece patient not taking meds. Plan/ - Scr improving at baseline, uop appropriate, BP stable. Will remove maloney and order bladder scan x1. 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 Will discuss with ID - Hgb 8.0-> 8.6 stable - keep MAPS > 65 at all times - Ok to use lasix PRN SOB/Hypoxia - Renally dose all meds - will follow/call if any questions Please do no hesitate to call with any questions Pager [phone] * Laquita Matthews APRN - JACKSPOOLER - 12/19/2019 9:20 AM EDT Department of Psychiatry Progress Note Reason for Consult/Chief Complaint: Renal failure Consulting Practitioner: Laquita Matthews APRN Identifying data: Quinten Yarbrough is a 49 y.o. female HISTORY OF PRESENT ILLNESS: Pt seen today for follow up regarding bipolar disorder, help with psychmeds due to renal failure associated with polypharmacy. Pt states that sleep was good last night, struggles with her c-pap but otherwise feels well rested this am. Pt states that overall mood is feeling good. Has some situational anxiety regarding what meds she will go home on. Expresses feeling overwhelmed with the amount of medication she had been on before. States I was taking thirty pills a day! I felt like my breakfast was medicine. Reassured that she will be discharged with a recommended medication list once she leaves the hospital. Recommended attempting to manage her bipolar disorder with abilify as monotherapy for the time being given her continued fragility and the fact that of didn't feel like her mood was much better even with all of the medication she was on. Pt voices understanding of the need for conservative medication management of her mood disorder. Past Medical and Psychiatric History: Bipolar 1 Diagnosis Date Anxiety and depression Atrial fibrillation (HCC) Hypertension Family Psychiatric and Medical History: no known family psych history No family history on file. Social History: Lives at home alone, has niece whom comes in to help take care of her. Social History Socioeconomic History Marital status: Single Spouse name: Not on file Number of children: Not on file Years of education: Not on file Highest education level: Not on file Occupational History Not on file Social Needs Financial resource strain: Not on file Food insecurity Worry: Not on file Inability: Not on file Transportation needs Medical: Not on file Non-medical: Not on file Tobacco Use Smoking status: Never Smoker Smokeless tobacco: Never Used Substance and Sexual Activity Alcohol use: No Drug use: No Sexual activity: Not on file Lifestyle Physical activity Days per week: Not on file Minutes per session: Not on file Stress: Not on file Relationships Social connections Talks on phone: Not on file Gets together: Not on file Attends faith service: Not on file Active member of club or organization: Not on file Attends meetings of clubs or organizations: Not on file Relationship status: Not on file Intimate partner violence Fear of current or ex partner: Not on file Emotionally abused: Not on file Physically abused: Not on file Forced sexual activity: Not on file Other Topics Concern Not on file Social History Narrative Not on file PAST SURGICAL HISTORY Procedure Laterality Date APPENDECTOMY CHOLECYSTECTOMY GASTRIC BYPASS SURGERY HYSTERECTOMY SHOULDER SURGERY Left Allergies: Iodides; Gabapentin; and Amoxicillin-pot clavulanate REVIEW OF SYSTEMS: ROS: Review of Systems Constitutional: Positive for fatigue. Negative for appetite change. Cardiovascular: Negative for chest pain and palpitations. Psychiatric/Behavioral: Positive for decreased concentration. Negative for agitation, behavioral problems, confusion, dysphoric mood, hallucinations, self- injury, sleep disturbance and suicidal ideas. The patient is nervous/anxious. The patient is not hyperactive. PHYSICAL EXAM: Vitals: BP 112/75 Pulse 92 Temp 98.2 F (36.8 C) (Oral) Resp 20 Ht 5' 5 (1.651 m) Wt (!) 436 lb 4.8 oz (197.9 kg) SpO2 100% BMI 72.60 kg/m Physical Examination: Physical Exam Vitals signs reviewed. HENT: Head: Normocephalic and atraumatic. Eyes: Pupils: Pupils are equal, round, and reactive to light. Cardiovascular: Rate and Rhythm: Normal rate. Pulmonary: Effort: Pulmonary effort is normal. No respiratory distress. Skin: General: Skin is warm and dry. Neurological: Mental Status: She is alert and oriented to person, place, and time. Psychiatric: Attention and Perception: Attention and perception normal. Mood and Affect: Mood and affect normal. Speech: Speech normal. Behavior: Behavior normal. Behavior is cooperative. Thought Content: Thought content is not paranoid. Thought content does not include homicidal or suicidal ideation. Cognition and Memory: Cognition normal. Comments: Judgement and insight currently fair. DATA: Recent Results (from the past 24 hour(s)) Basic Metabolic Panel w/ Reflex to MG Collection Time: 12/19/19 2:46 AM Result Value Ref Range Sodium 138 135 - 145 mmol/L Potassium 3.6 3.5 - 5.1 mmol/L Chloride 110 (H) 98 - 107 mmol/L CO2 24 22 - 30 mmol/L Anion Gap 4 NA Glucose 91 70 - 100 mg/dL BUN 18 7 - 20 mg/dL CREATININE 0.75 0.52 - 1.25 mg/dL eGFR >60.0 >60 mL/min EGFR IF NonAfrican Iraqi >60.0 >60 mL/min Calcium 8.5 8.4 - 10.4 mg/dL CBC auto differential Collection Time: 12/19/19 2:46 AM Result Value Ref Range WBC 10.8 (H) 3.6 - 10.7 10*3/uL RBC 2.77 (L) 3.80 - 5.20 10*6/uL Hemoglobin 8.6 (L) 11.7 - 16.0 g/dL Hematocrit 25.0 (L) 35.0 - 47.0 % MCV 90.4 79.0 - 98.0 fL MCH 31.3 26.0 - 34.0 pg MCHC 34.6 32.0 - 36.0 % RDW 16.7 (H) 11.5 - 14.5 % Platelets 242 140 - 440 10*3/uL MPV 8.3 7.4 - 10.4 fL Ionized Calcium Collection Time: 12/19/19 2:46 AM Result Value Ref Range Ionized Ca 4.20 (L) 4.30 - 5.20 mg/dL pH, Bld 7.40 7.31 - 7.46 NA Magnesium Collection Time: 12/19/19 2:46 AM Result Value Ref Range Magnesium 1.7 1.6 - 2.3 mg/dL Phosphorus Collection Time: 12/19/19 2:46 AM Result Value Ref Range Phosphorus 3.2 2.5 - 4.5 mg/dL Manual Differential Collection Time: 12/19/19 2:46 AM Result Value Ref Range Seg Neutrophils 81 (H) 40 - 80 % Bands 2 0 - 3 % Lymphocytes 7 (L) 20 - 40 % Monocytes 6 2 - 10 % Eosinophils 0 (L) 1 - 6 % Basophils 1 0 - 2 % Metamyelocytes 2 (A) <1 % Myelocytes 1 (A) <1 % Absolute Neut # 9.0 (H) 2.2 - 8.2 10*3/uL Absolute Lymph # 0.8 (L) 1.1 - 4.5 10*3/uL Absolute Hutchinson # 0.6 0.2 - 1.1 10*3/uL Absolute Eos # 0.0 0.0 - 0.5 10*3/uL Absolute Baso # 0.1 0.0 - 0.2 10*3/uL Anisocytosis Slight NA Poikilocytes Slight NA Polychromasia Slight NA Ovalocytes Slight NA TOTAL CELLS COUNTED 100 NA Narrative & Impression [facility] Test Date: 2019-12-18 Pat Name: Quinten Yarbrough Department: 1A6 Room: 6110 Gender: 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 Would recommend attempting to manage patient with abilify as monotherapy for treatment of bipolar disorder at this point. Pt amenable to this plan and agreeable to to attempting management with single agent at this point. Plan remains for pt to discharge to [facility] for SNF stay on discharge. Pt remains amenable to this plan. Will continue to follow through patient's hospital stay. Please page myself or signs and displays salesperson provider for emergent issues. * Mehul Allen DO - 12/19/2019 8:[address] [facility] - Infectious Diseases Attending Progress Note Subjective: Following for sepsis syndrome, coagulase-negative Staphylococcus bacteremia and multiple wounds. Reviewed interim history and available chart/notes/labs and studies. Patient stable and nonew complaints. Renal function back to normal. Objective: Vitals: BP 112/75 Pulse 92 Temp 98.2 F (36.8 C) (Oral) Resp 20 Ht 5' 5 (1.651 m) Wt (!) 436 lb 4.8 oz (197.9 kg) SpO2 100% BMI 72.60 kg/m Intake/Output Summary (Last 24 hours) at 12/19/2019 0824 Last data filed at 12/19/2019 0500 Gross per 24 hour Intake 800 ml Output 1700 ml Net -900 ml Physical Exam Exam conducted with a clay miller present. Constitutional: General: She is not in acute distress. Appearance: She is well-developed. She is obese. She is not ill-appearing (chronically-ill) or diaphoretic. Interventions: She is not intubated. HENT: Head: Normocephalic and atraumatic. Right Ear: Ear canal and external ear normal. Left Ear: Ear canal and external ear normal. Nose: Nose normal. Mouth/Throat: Mouth: Mucous membranes are dry. Pharynx: Oropharynx is clear. No oropharyngeal exudate. Comments: Poor dentition Eyes: General: No scleral icterus. Right eye: No discharge. Left eye: No discharge. Conjunctiva/sclera: Conjunctivae normal. Pupils: Pupils are equal, round, and reactive to light. Neck: Musculoskeletal: Normal range of motion and neck supple. No neck rigidity or muscular tenderness. Thyroid: No thyromegaly. Trachea: Trachea normal. No tracheal deviation. Cardiovascular: Rate and Rhythm: Normal rate and regular rhythm. Heart sounds: Heart sounds are distant. No murmur. Pulmonary: Effort: Pulmonary effort is normal. No respiratory distress. She is not intubated. Breath sounds: Decreased air movement present. Examination of the right-upper field reveals wheezing. Decreased breath sounds and wheezing present. No rales. Abdominal: General: Abdomen is flat and protuberant. Bowel sounds are normal. There is no distension. Palpations: Abdomen is soft. There is no hepatomegaly or splenomegaly. Tenderness: There is abdominal tenderness. Hernia: No hernia is present. Comments: Extensive maceration and intertrigo in abdominal folds and underneath breasts Genitourinary: Pubic Area: No rash. Comments: Maloney in place Musculoskeletal: Normal range of motion. General: No tenderness or deformity. Lymphadenopathy: Cervical: No cervical adenopathy. Skin: General: Skin is warm. Findings: Ecchymosis, erythema, signs of injury and rash present. Comments: See photos from consult note- multiple wounds on R leg and sacral area, no obvious bone exposure on sacral area Neurological: General: No focal deficit present. Mental Status: She is alert and oriented to person, place, and time. Mental status is at baseline. Cranial Nerves: Cranial nerves are intact. No cranial nerve deficit. Sensory: Sensation is intact. Motor: No weakness. Psychiatric: Attention and Perception: She is inattentive. Mood and Affect: Mood is depressed. Affect is flat. Speech: Speech is delayed. Behavior: Behavior is cooperative. Cognition and Memory: Cognition is impaired. Labs: Component Value Date/Time NA 138 12/19/2019 0246 K 3.6 12/19/2019 0246 CL 110 (H) 12/19/2019 0246 CO2 24 12/19/2019 0246 BUN 18 12/19/2019 0246 CREATININE 0.75 12/19/2019 0246 GLUCOSE 91 12/19/2019 0246 CALCIUM 8.5 12/19/2019 0246 PROT 5.8 (L) 12/16/2019 0147 LABALBU 2.9 (L) 12/16/2019 0147 BILITOT 0.4 12/16/2019 0147 ALKPHOS 96 12/16/2019 0147 AST 24 12/16/2019 0147 ALT 12 12/16/2019 0147 PROCAL 1.15 (A) 12/14/2019 1459 Component Value Date/Time WBC 10.8 (H) 12/19/2019 0246 HGB 8.6 (L) 12/19/2019 0246 HCT 25.0 (L) 12/19/2019 0246 PLT 242 12/19/2019 0246 MONOPCT 6 12/19/2019 0246 LABEOS 0 (L) 12/19/2019 0246 BASOPCT 1 12/19/2019 0246 NEUTROABS 9.0 (H) 12/19/2019 0246 Micro: Blood cultures: Lab Results Component Value Date BC 12/15/2019 POSITIVE: Staphylococcus species (probable Coagulase negative Staph) DETECTED. POSITIVE: mecA (methicillin resistance gene) DETECTED. Presumptive identification performed using [employer] PCR methodology; confirmatory identification to follow. _ The [employer] Blood Culture Identification PCR Panel can detect the following targets: Staphylococcus aureus, Staphylococcus species, Enterococcus species, Streptococcus species, Streptococcus agalactiae (Group B), Streptococcus pneumoniae, Streptococcus pyogenes (Group A), Listeria monocytogenes, Acinetobacter baumannii complex, Enterobacteriaceae, Enterobacter cloacae complex, Escherichia coli, Klebsiella oxytoca, Klebsiella pneumoniae, Proteus species, Serratia marcescens, Pseudomonas aeruginosa, Haemophilus influenzae, Neisseria meningitidis, Shari albicans, Shari glabrata, Shari krusei, Shari parapsilosis, Shari tropicalis Staphylococcus epidermidis 12/15/2019 BC 12/15/2019 Isolated: Contamination likely unless additional blood culture sets are found to be positive with the same organism. 12/14/2019 No growth at 1 day. No growth at 2 days. No growth at 3 days. No growth at 4 days. Streptococcus/Legionella urinary antigen (-) RVP (-) Reviewed all relevant labs and microbiology data. Lines: Vascath Radiography/Echo/Other: No new imaging Antimicrobials, Start/End Dates: Ceftaroline Impression: 1. Sepsis syndrome 2. Coagulase-negative Staphylococcus - contaminant 3. COLETTE - resolved 4. Extensive R LE wound and sacral area 5. Prior MRSA, Streptococcus and GNB LE infection 6. Morbid obesity 7. Polypharmacy Plan: 1. Will de-escalate to oral cephalexin and doxycycline for 5 more days 2. Needs wound care 3. OK to DC from ID standpoint Will sign-off please call with questions Pager: [phone] * Marianna Casiano MD - 12/18/2019 4:42 PM EDT Hospitalist Progress Note 12/18/2019 4:42 PM [phone]: Please page me for patient care issues. [phone]: Please page IMS night Hospitalist for any issues. Subjective: Admit Date: 12/14/2019 PCP: Dina Wade MD Room#: 6110/790737 49 y.o c. Female admitted 12/13 from [place] w/ septic shock, acute renal failure and encephalopathy. Required HD X1. Interval History: Patient seen and examined No new event overnight. Transferred out of Intensive Care Unit on 12/17/19. Afebrile overnight DIET CARDIAC; Low Sodium (2 GM); Dental Soft Patient Vitals for the past 96 hrs (Last 3 readings): Weight 12/18/19 0402 (!) 399 lb (181 kg) 12/14/19 2200 (!) 383 lb 6.1 oz (173.9 kg) 12/14/19 1915 (!) 387 lb 12.6 oz (175.9 kg) Intake/Output Summary (Last 24 hours) at 12/18/2019 1642 Last data filed at 12/18/2019 0625 Gross per 24 hour Intake 1200 ml Output 1500 ml Net -300 ml LABS: CBC: Recent Labs 12/16/19 1232 12/17/19 0210 12/18/19 0414 WBC 12.9* 13.1* 11.1* RBC 2.82* 2.75* 2.68* HGB 8.3* 8.2* 8.0* HCT 25.0* 24.5* 24.3* MCV 88.5 89.3 90.8 RDW 16.5* 16.5* 17.0* PLT 309 306 265 BMP: Recent Labs 12/17/19 0210 12/17/19 1643 12/18/19 0414 NA 139 140 140 K 3.3* 3.3* 3.4* CL 108* 110* 110* CO2 24 24 25 BUN 55* 43* 30* CREATININE 1.23 0.94 0.85 GLUCOSE 88 98 90 CALCIUM 8.5 8.4 8.6 ANIONGAP 7 6 5 LIVER PROFILE: Recent Labs 12/16/19 0147 AST 24 ALT 12 BILITOT 0.4 ALKPHOS 96 LABALBU 2.9* PROT 5.8* PT/INR: No results for input(s): PROTIME, INR in the last 72 hours. CARDIAC ENZYMES: No results for input(s): TROPONINI in the last 72 hours. Procalcitonin: Lab Results Component Value Date PROCAL 1.15 12/14/2019 Objective: Vitals: BP 106/66 Pulse 97 Temp 97.5 F (36.4 C) (Temporal) Resp 18 Ht 5' 5 (1.651 m) Wt (!) 399 lb (181 kg) SpO2 99% BMI 66.40 kg/m Pulse Ox: SpO2 Av.2 % Min: 96 % Max: 99 % Supplemental O2: O2 Flow Rate (L/min): 3 L/min General appearance: Obese ,No apparent distress,awake alert HEENT: Eyes: No scleral icterus,No pallor Oral: Tongue is semi-moist Cardiovascular: S1S2 heard, RRR Respiratory: Clear to auscultation bilaterally Abdomen: Soft, non-tender, non-distended with normal bowel sounds. Musculoskeletal: No obvious deformities seen Skin: Large area of peeling skin on the right thigh, right calf, moist erythematous rash in skin folds, decubitus ulcer coccyx Neurology- no focal neurological deficits Extremity- no peripheral edema both lower extremities Assessment Active Problems -Septic shock resolving-Likely leg wounds-Blood cultures coagulation-negative staph likely contaminant -Metabolic encephalopathy. -Acute renal failure with anion gap metabolic acidosis-resolved. HD 1 -Paroxysmal A. Fib-on home eliquis -Chronic right leg wounds shari intertrigo - polypharmacy -Debility -Hypokalemia -? Pancreatitis Chronic problems -Bipolar disorder -Morbid obesity -Normocytic normochromic anemia -Obstructive sleep apnea Plan -ID following, on Teflaro. -Nephrology following. -Replaced potassium. -Psychiatry consulted, recommending to hold home Lexapro, vistaril, topamax . On DVT/ GI prophylaxis Labs ordered for AM Patient was informed about all work up and treatment plan Discussed with nursing staff Advance Directive: Full Code Discharge planning: DONALDO CASIANO MD Division of Hospitalist Medicine Inpatient Medical Services * Valentino Freed MD - 12/18/2019 2:37 PM EDT [facility] Progress Note [facility] H6 TELEMETRY Patient: Quinten Yarbrough Unit/Bed: 61/209298 Date of : 1970 Acct: [id number] Admitting Diagnosis: Hypovolemic shock (HCC) [R57.1] Admit Date: 12/14/2019 Hospital Day: 4 Subjective: 49 y.o. year old female who we are seeing in consultation for Colette/ATN and severe acidosis. Interval Hx: No events overnight AF, BP stable Last IHD 12/13 UOP is good and noted Scr at baseline K low In good spirits No issues Swelling persistent Patient Seen, Chart, Labs, Radiology studies, and Consults reviewed Objective: BP 106/66 Pulse 97 Temp 97.5 F (36.4 C) (Temporal) Resp 18 Ht 5' 5 (1.651 m) Wt (!) 399 lb (181 kg) SpO2 99% BMI 66.40 kg/m Intake/Output Summary (Last 24 hours) at 12/18/2019 1437 Last data filed at 12/18/2019 0625 Gross per 24 hour Intake 1685 ml Output 2050 ml Net -365 ml Nad, aox3, sitting in chair dmm ,no jvd Anterior chest is b/l clear Tachycardic, no mrg or rubs +bs soft, nttp, nd +2 bilateral lower ext edema KIM, No asterixis + maloney in place with clear yellow urine noted in the bag Diet: DIET CARDIAC; Low Sodium (2 GM); Dental Soft Medications: [Held by provider] QUEtiapine 25 mg Oral Nightly apixaban 5 mg Oral BID pantoprazole 40 mg Oral QAM AC ceftaroline fosamil (TEFLARO) IVPB 300 mg Intravenous Q12H lidocaine 1 patch Transdermal Daily miconazole Topical Q8H Venelex Topical Q8H stomahesive in petrolatum Topical 3 times per day mineral oil-hydrophilic petrolatum Topical Daily sodium chloride flush 10 mL Intravenous 2 times per day sodium chloride flush 10 mL Intracatheter Q8H Continuous Infusions: PRN Meds:[Held by provider] QUEtiapine, acetaminophen, oxyCODONE OR oxyCODONE, sodium chloride flush, magnesium hydroxide, promethazine OR ondansetron, sodium chloride flush DVT Prophylaxis:apixaban Data: CBC: Recent Labs 12/16/19 1232 12/17/19 0210 12/18/19 0414 WBC 12.9* 13.1* 11.1* RBC 2.82* 2.75* 2.68* HGB 8.3* 8.2* 8.0* HCT 25.0* 24.5* 24.3* MCV 88.5 89.3 90.8 RDW 16.5* 16.5* 17.0* PLT 309 306 265 BMP: Recent Labs 12/16/19 0147 12/17/19 0210 12/17/19 1643 12/18/19 0414 NA 138 < > 139 140 140 K 3.0* < > 3.3* 3.3* 3.4* CL 103 < > 108* 110* 110* CO2 23 < > 24 24 25 PHOS 5.2* -- 3.6 -- 3.2 BUN 76* < > 55* 43* 30* CREATININE 2.86* < > 1.23 0.94 0.85 < > = values in this interval not displayed. BNP: No results for input(s): BNP in the last 72 hours. PT/INR: No results for input(s): PROTIME, INR in the last 72 hours. APTT: Recent Labs 12/16/19 1232 12/16/194 12/17/19 0459 APTT 42.9* 133.1* 105.2* CARDIAC ENZYMES: No results for input(s): CKMB, CKMBINDEX, TROPONINT in the last 72 hours. Invalid input(s): CKTOTAL;3 FASTING LIPID PANEL:No results found for: CHOL, HDL, TRIG LIVER PROFILE: Recent Labs 12/16/19 014 AST 24 ALT 12 BILIDIR 0.0 BILITOT 0.4 ALKPHOS 96 ABGs: Lab Results Component Value Date PH 7.40 12/18/2019 Assessment/Plan: - COLETTE/ATN - Severe high anion gap metabolic acidosis (improvng) - metabolic encephalopathy - Septic shock from left leg cellulitis - Htn - afib Dg: Colette/ATN severe acidosis from multifactorial Pacreatitis vs Septic shock vs other. Noted baclofen and topamax listed on home meds per niece patient not taking meds. 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 - Hgb 8.0 stable - keep MAPS > 65 at all times - Ok to use lasix PRN SOB/Hypoxia - repeat UA tomorrow r/o hematuria. - Renally dose all meds - will follow/call if any questions Please do no hesitate to call with any questions Pager [phone] * Naveen Gordillo, PT - 12/18/2019 11:01 AM EDT Physical Therapy Facility/Department: [facility]LE[facility] Initial Assessment NAME: Quinten Yarbrough : 1970 Date of Service: 12/18/2019 Discharge Recommendations: Subacute/Chcf Facility PT Equipment Recommendations Equipment Needed: (Pt has bariatric FWW) Assessment Body structures, Functions, Activity limitations: Decreased functional mobility ;Decreased safe awareness;Decreased balance;Decreased endurance;Decreased strength;Decreased ADL status Assessment: Pt admitted for septic shock, acute renal failiure, and encephalopathy. 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 Pt is A&Ox3. Pt this date requires 2 people with mod assist to be safe. Pt has + retrograde lean and unsteady. Session limited by R posterior calf bleeding (RN jean aware and left in care). Pt not safe to go home. Recommend SNF Prognosis: Good Decision Making: Medium Complexity PT Education: PT Role;Plan of Care;Goals REQUIRES PT FOLLOW UP: Yes Activity Tolerance Activity Tolerance: Patient limited by fatigue;Patient limited by endurance Patient Diagnosis(es): There were no encounter diagnoses. has a past medical history of Anxiety and depression, Atrial fibrillation (HCC), and Hypertension. has a past surgical history that includes Gastric bypass surgery; Hysterectomy; Cholecystectomy; Appendectomy; and shoulder surgery (Left). Restrictions Restrictions/Precautions Restrictions/Precautions: (catheter, high fall risk, elevate bed to 30 degrees, waffle cushion, IV) Vision/Hearing Vision: Impaired Vision Exceptions: Wears glasses at all times Hearing: Within functional limits Subjective General Chart Reviewed: Yes Patient assessed for rehabilitation services?: Yes Additional Pertinent Hx: wound care center 1x per week. Originally admitted for acute renal failure, fall and inability to get up. + NIV for respiratory distress, + confusion due to encephalopathy Family / Caregiver Present: No Follows Commands: Within Functional Limits General Comment Comments: Upon sitting pt up and standing up, noted to have saturated R posterior calf with fresh blood. Pt reports no scraping of skin. RN (jean) immediately notified Subjective Subjective: Pt agreeable for therapy. Pt states feeling much weaker than normal and wanted to get up. Pain Screening Patient Currently in Pain: Yes Pain Assessment Pain Assessment: 0-10 Pain Level: 2 Pain Type: Acute pain Pain Location: (central line site) Pain Orientation: Right Vital Signs Patient Currently in Pain: Yes Orientation Orientation Overall Orientation Status: Impaired Orientation Level: Oriented to person;Oriented to situation;Oriented to place(Pt knew it was december but not specific day) Social/Functional History Social/Functional History Lives With: Family(niece) Type of Home: Apartment Home Layout: One level Home Access: Level entry Bathroom Shower/Tub: Walk-in shower Bathroom Toilet: Standard Bathroom Accessibility: Walker accessible Home Equipment: Rolling walker(bariatric FWW) Receives Help From: Family ADL Assistance: Independent Homemaking Assistance: Needs assistance Meal Prep: Minimal Laundry: Moderate Vacuuming: Moderate Cleaning: Moderate Driving: Total Shopping: Moderate Homemaking Responsibilities: No Ambulation Assistance: Independent Transfer Assistance: Independent Active Distillery Manager: No Patient's Distillery Manager Info: family Additional Comments: Pt states normally independent. Pt states able to dress/bath herself. Pt states using bariatric fWW. USes taxi for mobility Cognition Cognition Overall Cognitive Status: WFL Objective Observation/Palpation Posture: Fair Observation: R distal enciso wrapping; proximal thigh left medial wound (mild bleeding); cheyanne pad put around saturated dressing until RN arrived AROM RLE (degrees) RLE General AROM: ankle is WFL; knee and thigh NT due to bleeding AROM LLE (degrees) LLE AROM : WFL AROM RUE (degrees) RUE AROM : WFL AROM LUE (degrees) LUE AROM : WFL Spine Cervical: no ROM tested due to central line Strength RLE Comment: ankle is 4/5; hip/knee NT Strength LLE Comment: 3+/5 Tone RLE RLE Tone: Normotonic Tone LLE LLE Tone: Normotonic Motor Control Gross Motor?: WNL Sensation Overall Sensation Status: (Denies N/Ting) Bed mobility Sit to Supine: Moderate assistance(x2) Comment: + retrograde lean with sitting Transfers Sit to Stand: Moderate Assistance(x2 people) Stand to sit: Moderate Assistance(x2 people) Bed to Chair: (hand held assist x2 from bed to chair) Ambulation Ambulation?: No Balance Sitting - Static: Fair Sitting - Dynamic: Fair;- Standing - Static: Fair;- Standing - Dynamic: Fair;- Plan Plan Times per week: 5 Plan weeks: 2 weeks Current Treatment Recommendations: Strengthening, Transfer Training, Endurance Training, ROM, Balance Training, Gait Training, Functional Mobility Training, Safety Education & Training, Home Exercise Program, Positioning Safety Devices Type of devices: Left in chair, Call light within reach, Patient at risk for falls, All fall risk precautions in place G-Code OutComes Score [facility] Score [facility] Inpatient Mobility Raw Score : 6 (12/18/191099) [facility] Inpatient T-Scale Score : 23.55 (12/18/191099) Mobility Inpatient CMS 0-100% Score: 100 (12/18/191099) Mobility Inpatient [facility] G-Code Modifier : CN (12/18/191099) Goals Short term goals Time Frame for Short term goals: 2 weeks Short term goal 1: Bed mobility SBA x1 Short term goal 2: Transfers SBA x1 Short term goal 3: Ambulate 50 feet x1 with bariatric FWW with SBA x1 Short term goal 4: Standing tolerance >3 minutes without balance loss Patient Goals Patient goals : to get better Therapy Time Individual Concurrent Group Co-treatment Time In 1020 Time Out 1031 Minutes 11 Transfer Plan of care over to [facility] Physical Therapy staff. Goals and/or treatment plan was established in collaboration with patient/family/other (specify). No Bed/chair alarm on prior to session and no alarm after session Pt left with waffle cushion underneath and left in RN care to deal with RLE wound Naveen Gordillo PT * Laquita Matthews APRN - JACKSPOOLER - 12/18/2019 9:33 AM EDT Department of Psychiatry Progress Note Reason for Consult/Chief Complaint: Renal failure Consulting Practitioner: Laquita Matthews APRN Identifying data: Quinten Yarbrough is a 49 y.o. female HISTORY OF PRESENT ILLNESS: Pt seen today for follow up regarding bipolar disorder, help with psychmeds due to renal failure associated with polypharmacy. Pt was seen for full consult by Dr. Michelle dawson weekend, please see her note for full consult. Met with patient, has been getting seroquel per PRN order on occasion for her anxiety, feels that it has been helpful. States that mood has been pretty good, but sleep has been poor at night. Denies SI/HI, manic symptoms, agitation. Discussed medoptions, including utilizing seroquel as potential monotherapy for management of psychiatric symptoms. Pt amenable to this plan at this point given the fact that her polypharmacy likely contributed to her renal issues. Past Medical and Psychiatric History: Bipolar 1 Diagnosis Date Anxiety and depression Atrial fibrillation (HCC) Hypertension Family Psychiatric and Medical History: no known family psych history No family history on file. Social History: Lives at home alone, has niece whom comes in to help take care of her. Social History Socioeconomic History Marital status: Single Spouse name: Not on file Number of children: Not on file Years of education: Not on file Highest education level: Not on file Occupational History Not on file Social Needs Financial resource strain: Not on file Food insecurity Worry: Not on file Inability: Not on file Transportation needs Medical: Not on file Non-medical: Not on file Tobacco Use Smoking status: Never Smoker Smokeless tobacco: Never Used Substance and Sexual Activity Alcohol use: No Drug use: No Sexual activity: Not on file Lifestyle Physical activity Days per week: Not on file Minutes per session: Not on file Stress: Not on file Relationships Social connections Talks on phone: Not on file Gets together: Not on file Attends faith service: Not on file Active member of club or organization: Not on file Attends meetings of clubs or organizations: Not on file Relationship status: Not on file Intimate partner violence Fear of current or ex partner: Not on file Emotionally abused: Not on file Physically abused: Not on file Forced sexual activity: Not on file Other Topics Concern Not on file Social History Narrative Not on file PAST SURGICAL HISTORY Procedure Laterality Date APPENDECTOMY CHOLECYSTECTOMY GASTRIC BYPASS SURGERY HYSTERECTOMY SHOULDER SURGERY Left Allergies: Iodides; Gabapentin; and Amoxicillin-pot clavulanate REVIEW OF SYSTEMS: ROS: Review of Systems Constitutional: Positive for fatigue. Negative for appetite change. Cardiovascular: Negative for chest pain and palpitations. Psychiatric/Behavioral: Positive for decreased concentration and sleep disturbance. Negative for agitation, behavioral problems, confusion, dysphoric mood, hallucinations, self-injury and suicidal ideas. The patient is nervous/anxious. The patient is not hyperactive. PHYSICAL EXAM: Vitals: BP 127/63 Pulse 86 Temp 98.5 F (36.9 C) (Temporal) Resp 18 Ht 5' 5 (1.651 m) Wt (!) 399 lb (181 kg) SpO2 99% BMI 66.40 kg/m Physical Examination: Physical Exam Vitals signs reviewed. HENT: Head: Normocephalic and atraumatic. Eyes: Pupils: Pupils are equal, round, and reactive to light. Cardiovascular: Rate and Rhythm: Normal rate. Pulmonary: Effort: Pulmonary effort is normal. No respiratory distress. Skin: General: Skin is warm and dry. Neurological: Mental Status: She is alert and oriented to person, place, and time. Psychiatric: Attention and Perception: Attention and perception normal. Mood and Affect: Mood and affect normal. Speech: Speech normal. Behavior: Behavior normal. Behavior is cooperative. Thought Content: Thought content is not paranoid. Thought content does not include homicidal or suicidal ideation. Cognition and Memory: Cognition normal. Comments: Difficulty remembering circumstances leading up to IP hospitalization, but is able to remember speaking with Dr. Martinez this weekend. Judgement and insight currently fair. DATA: Recent Results (from the past 24 hour(s)) Basic Metabolic Panel w/ Reflex to MG Collection Time: 12/17/19 4:43 PM Result Value Ref Range Sodium 140 135 - 145 mmol/L Potassium 3.3 (L) 3.5 - 5.1 mmol/L Chloride 110 (H) 98 - 107 mmol/L CO2 24 22 - 30 mmol/L Anion Gap 6 NA Glucose 98 70 - 100 mg/dL BUN 43 (H) 7 - 20 mg/dL CREATININE 0.94 0.52 - 1.25 mg/dL eGFR >60.0 >60 mL/min EGFR IF NonAfrican Iraqi >60.0 >60 mL/min Calcium 8.4 8.4 - 10.4 mg/dL Magnesium Collection Time: 12/17/19 4:43 PM Result Value Ref Range Magnesium 2.1 1.6 - 2.3 mg/dL CBC auto differential Collection Time: 12/18/19 4:14 AM Result Value Ref Range WBC 11.1 (H) 3.6 - 10.7 10*3/uL RBC 2.68 (L) 3.80 - 5.20 10*6/uL Hemoglobin 8.0 (L) 11.7 - 16.0 g/dL Hematocrit 24.3 (L) 35.0 - 47.0 % MCV 90.8 79.0 - 98.0 fL MCH 29.8 26.0 - 34.0 pg MCHC 32.8 32.0 - 36.0 % RDW 17.0 (H) 11.5 - 14.5 % Platelets 265 140 - 440 10*3/uL MPV 8.1 7.4 - 10.4 fL Ionized Calcium Collection Time: 12/18/19 4:14 AM Result Value Ref Range Ionized Ca 4.30 4.30 - 5.20 mg/dL pH, Bld 7.40 7.31 - 7.46 NA Magnesium Collection Time: 12/18/19 4:14 AM Result Value Ref Range Magnesium 1.9 1.6 - 2.3 mg/dL Phosphorus Collection Time: 12/18/19 4:14 AM Result Value Ref Range Phosphorus 3.2 2.5 - 4.5 mg/dL Basic Metabolic Panel Collection Time: 12/18/19 4:14 AM Result Value Ref Range Sodium 140 135 - 145 mmol/L Potassium 3.4 (L) 3.5 - 5.1 mmol/L Chloride 110 (H) 98 - 107 mmol/L CO2 25 22 - 30 mmol/L Anion Gap 5 NA Glucose 90 70 - 100 mg/dL BUN 30 (H) 7 - 20 mg/dL CREATININE 0.85 0.52 - 1.25 mg/dL eGFR >60.0 >60 mL/min EGFR IF NonAfrican Iraqi >60.0 >60 mL/min Calcium 8.6 8.4 - 10.4 mg/dL Manual Differential Collection Time: 12/18/19 4:14 AM Result Value Ref Range Seg Neutrophils 71 40 - 80 % Bands 3 0 - 3 % Lymphocytes 19 (L) 20 - 40 % Monocytes 4 2 - 10 % Eosinophils 1 1 - 6 % Basophils 0 0 - 2 % Metamyelocytes 2 (A) <1 % Absolute Neut # 8.2 2.2 - 8.2 10*3/uL Absolute Lymph # 2.1 1.1 - 4.5 10*3/uL Absolute Hutchinson # 0.4 0.2 - 1.1 10*3/uL Absolute Eos # 0.1 0.0 - 0.5 10*3/uL Absolute Baso # 0.0 0.0 - 0.2 10*3/uL nRBC 1 (H) -1 - 0 /100[WBCs] RBC Morphology See Prev NA TOTAL CELLS COUNTED 100 NA Narrative & Impression [facility] Test Date: 2019-12-14 Pat Name: Quinten Yarbrough Department: 1AT3 Room: [facility] 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: 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 Will consider ordering seroquel 25 mg PO QHS scheduled to help with sleep/wake cycle consolidation depending on QTC on repeat EKG. Per pt likely to discharge to SNF for rehab stay after IP stay, she is insightful and amenable to this plan. Will continue to follow as patient progresses. Please call myself or signs and displays salesperson psychiatrist if emergent issues arise. remains prolonged on EKG recheck, concern for TDP dysrhythmia risk. Discussed risks/benefits with patient. Pt has been a abilify prior. This med has less documented risk of dysrhythmias. Pt amenable to restarting at low dose in am instead of seroquel. Will order scheduled abilify to start in the am. * Mheul Allen - 12/18/2019 8:[address] [facility] - Infectious Diseases Attending Progress Note Subjective: Following for sepsis syndrome, coagulase-negative Staphylococcus bacteremia and multiple wounds. Reviewed interim history and available chart/notes/labs and studies. Patient been transferred to [facility] now. Objective: Vitals: BP 116/66 Pulse 80 Temp 97.8 F (36.6 C) (Temporal) Resp 18 Ht 5' 5 (1.651 m) Wt (!) 399 lb (181 kg) SpO2 98% BMI 66.40 kg/m Intake/Output Summary (Last 24 hours) at 12/18/2019 0847 Last data filed at 12/18/2019 0625 Gross per 24 hour Intake 2685 ml Output 2275 ml Net 410 ml Physical Exam Exam conducted with a clay miller present. Constitutional: General: She is not in acute distress. Appearance: She is well-developed. She is obese. She is not ill-appearing (chronically-ill) or diaphoretic. Interventions: She is not intubated. HENT: Head: Normocephalic and atraumatic. Right Ear: Ear canal and external ear normal. Left Ear: Ear canal and external ear normal. Nose: Nose normal. Mouth/Throat: Mouth: Mucous membranes are dry. Pharynx: Oropharynx is clear. No oropharyngeal exudate. Comments: Poor dentition Eyes: General: No scleral icterus. Right eye: No discharge. Left eye: No discharge. Conjunctiva/sclera: Conjunctivae normal. Pupils: Pupils are equal, round, and reactive to light. Neck: Musculoskeletal: Normal range of motion and neck supple. No neck rigidity or muscular tenderness. Thyroid: No thyromegaly. Trachea: Trachea normal. No tracheal deviation. Cardiovascular: Rate and Rhythm: Normal rate and regular rhythm. Heart sounds: Heart sounds are distant. No murmur. Pulmonary: Effort: Pulmonary effort is normal. No respiratory distress. She is not intubated. Breath sounds: Decreased air movement present. Examination of the right-upper field reveals wheezing. Decreased breath sounds and wheezing present. No rales. Abdominal: General: Abdomen is flat and protuberant. Bowel sounds are normal. There is no distension. Palpations: Abdomen is soft. There is no hepatomegaly or splenomegaly. Tenderness: There is abdominal tenderness. Hernia: No hernia is present. Comments: Extensive maceration and intertrigo in abdominal folds and underneath breasts Genitourinary: Pubic Area: No rash. Comments: Maloney in place Musculoskeletal: Normal range of motion. General: No tenderness or deformity. Lymphadenopathy: Cervical: No cervical adenopathy. Skin: General: Skin is warm. Findings: Ecchymosis, erythema, signs of injury and rash present. Comments: See photos from consult note- multiple wounds on R leg and sacral area, no obvious bone exposure on sacral area Neurological: General: No focal deficit present. Mental Status: She is alert and oriented to person, place, and time. Mental status is at baseline. Cranial Nerves: Cranial nerves are intact. No cranial nerve deficit. Sensory: Sensation is intact. Motor: No weakness. Psychiatric: Attention and Perception: She is inattentive. Mood and Affect: Mood is depressed. Affect is flat. Speech: Speech is delayed. Behavior: Behavior is cooperative. Cognition and Memory: Cognition is impaired. Labs: Component Value Date/Time NA 140 12/18/2019 0414 K 3.4 (L) 12/18/2019 0414 CL 110 (H) 12/18/2019 0414 CO2 25 12/18/2019 0414 BUN 30 (H) 12/18/2019 0414 CREATININE 0.85 12/18/2019 0414 GLUCOSE 90 12/18/2019 0414 CALCIUM 8.6 12/18/2019 0414 PROT 5.8 (L) 12/16/2019 0147 LABALBU 2.9 (L) 12/16/2019 0147 BILITOT 0.4 12/16/2019 0147 ALKPHOS 96 12/16/2019 0147 AST 24 12/16/2019 0147 ALT 12 12/16/2019 0147 PROCAL 1.15 (A) 12/14/2019 1459 Component Value Date/Time WBC 11.1 (H) 12/18/2019 0414 HGB 8.0 (L) 12/18/2019 0414 HCT 24.3 (L) 12/18/2019 0414 PLT 265 12/18/2019 0414 MONOPCT 4 12/18/2019 0414 LABEOS 1 12/18/2019 0414 BASOPCT 0 12/18/2019 0414 NEUTROABS 8.2 12/18/2019 0414 Micro: Blood cultures: Lab Results Component Value Date BC 12/15/2019 POSITIVE: Staphylococcus species (probable Coagulase negative Staph) DETECTED. POSITIVE: mecA (methicillin resistance gene) DETECTED. Presumptive identification performed using ARPUArray PCR methodology; confirmatory identification to follow. _ The [employer] Blood Culture Identification PCR Panel can detect the following targets: Staphylococcus aureus, Staphylococcus species, Enterococcus species, Streptococcus species, Streptococcus agalactiae (Group B), Streptococcus pneumoniae, Streptococcus pyogenes (Group A), Listeria monocytogenes, Acinetobacter baumannii complex, Enterobacteriaceae, Enterobacter cloacae complex, Escherichia coli, Klebsiella oxytoca, Klebsiella pneumoniae, Proteus species, Serratia marcescens, Pseudomonas aeruginosa, Haemophilus influenzae, Neisseria meningitidis, Shari albicans, Shari glabrata, Shari krusei, Shari parapsilosis, Shari tropicalis BC Staphylococcus epidermidis 12/15/2019 BC 12/15/2019 Isolated: Contamination likely unless additional blood culture sets are found to be positive with the same organism. 12/14/2019 No growth at 1 day. No growth at 2 days. No growth at 3 days. Streptococcus/Legionella urinary antigen (-) RVP (-) Reviewed all relevant labs and microbiology data. Lines: Vascath Radiography/Echo/Other: No new imaging Antimicrobials, Start/End Dates: Ceftaroline Impression: 1. Sepsis syndrome 2. Coagulase-negative Staphylococcus - contaminant 3. COLETTE - resolved 4. Extensive R LE wound and sacral area 5. Prior MRSA, Streptococcus and GNB LE infection 6. Morbid obesity 7. Polypharmacy Plan: 1. Continue ceftaroline for cellulitis coverage 2. Eventually a short oral course when placed Following Pager: [phone] * Vilma Kolb APRN - JACKSPOOLER - 12/17/2019 9:44 AM EDT CRITICAL CARE DAILY PROGRESS NOTE Admit Date: 12/14/2019 PCP: Dina Wade MD Subjective 49 y.o c. Female admitted 12/13 from [place] w/ septic shock, acute renal failure and encephalopathy. Required HD X1. EVENTS OF LAST 24 HOURS: Seen in bed this am, c.o. pain to hip and R leg wounds, also c.o. nausea. Tolerated breakfast this am. Wants out of bed to chair today INVASIVE LINES: RIJ HD (12/13) D#3 IV: heparin (porcine) 1,700 Units/hr (12/17/19 0725) lactated ringers 75 mL/hr at 12/16/19 1336 norepinephrine Stopped (12/16/19 1030) dexmedetomidine Stopped (12/16/19 1300) MEDICATIONS Scheduled Meds: ceftaroline fosamil (TEFLARO) IVPB 300 mg Intravenous Q12H lidocaine 1 patch Transdermal Daily miconazole Topical Q8H Venelex Topical Q8H stomahesive in petrolatum Topical 3 times per day mineral oil-hydrophilic petrolatum Topical Daily sodium chloride flush 10 mL Intravenous 2 times per day sodium chloride flush 10 mL Intracatheter Q8H PRN meds: heparin (porcine), heparin (porcine), QUEtiapine, acetaminophen, oxyCODONE OR oxyCODONE, sodiumchloride flush, magnesium hydroxide, promethazine OR ondansetron, sodium chloride flush, perflutren lipid microspheres, sodium chloride flush Objective EXAM: VITALS: BP (!) 108/51 Pulse 78 Temp 99.3 F (37.4 C) (Temporal) Resp 23 Ht 5' 5 (1.651 m) Wt (!) 383 lb 6.1 oz (173.9 kg) SpO2 96% BMI 63.80 kg/m Temp (24hrs), Av.8 F (37.1 C), Min:98 F (36.7 C), Max:99.3 F (37.4 C) 12/15 0701 - 12/16 0700 In: 3370 [P.O.:550; I.V.:2820] Out: 5375 [Urine:5375] Physical Exam Vitals signs and nursing note reviewed. Constitutional: Appearance: She is obese. She is not ill-appearing or toxic-appearing. HENT: Nose: Nose normal. Mouth/Throat: Mouth: Mucous membranes are moist. Pharynx: Oropharynx is clear. No oropharyngeal exudate. Eyes: Extraocular Movements: Extraocular movements intact. Conjunctiva/sclera: Conjunctivae normal. Pupils: Pupils are equal, round, and reactive to light. Neck: Musculoskeletal: Normal range of motion and neck supple. Cardiovascular: Rate and Rhythm: Normal rate and regular rhythm. Heart sounds: Murmur present. Comments: 3/6 holo systolic murmur-best 2ICS, LSB Pulmonary: Effort: Pulmonary effort is normal. Breath sounds: Normal breath sounds. No wheezing, rhonchi or rales. Comments: decr BS to bilateral bases Abdominal: General: Bowel sounds are normal. There is distension. Palpations: Abdomen is soft. Hernia: No hernia is present. Comments: Abdominal distention with obese body habitus, no obvious ventral hernia Genitourinary: Comments: Maloney, clear yellow urine Musculoskeletal: Comments: Limited ROM to extremities d/t body habitus, 2+ peripheral edema bilateral feet-vs obesity?, hands 1+ Skin: General: Skin is warm and dry. Capillary Refill: Capillary refill takes 2 to 3 seconds. Bilateral toes Findings: Lesion present. Comments: Large area peeling skin wound to R thigh/R calf with bruising, yeasty rash to skin folds,decub to coccyx per report Neurological: General: No focal deficit present. Mental Status: She is alert and oriented to person, place, and time. Mental status is at baseline. Psychiatric: Behavior: Behavior normal. Thought Content: Thought content normal. Judgment: Judgment normal. Comments: Pleasant/cooperative this am RESULTS: CBC: Recent Labs 12/16/19 0147 12/16/19 1232 12/17/19 0210 WBC 13.4* 12.9* 13.1* HGB 8.7* 8.3* 8.2* HCT 26.2* 25.0* 24.5* MCV 88.6 88.5 89.3 PLT 349 309 306 BMP: Recent Labs 12/15/19 1550 12/16/19 0147 12/16/19 1232 12/17/19 0210 NA 137 138 138 139 K 2.7* 3.0* 3.2* 3.3* CL 101 103 105 108* CO2 24 23 25 24 PHOS 5.4* 5.2* -- 3.6 BUN 85* 76* 69* 55* CREATININE 3.87* 2.86* 1.92* 1.23 MG 2.1 2.0 1.9 1.8 LACTATE Recent Labs 12/14/19 1133 LACTA 0.6* LIVER PROFILE: Recent Labs 12/14/19 1133 12/14/19 1459 12/15/19 0258 12/16/19 0147 AST -- 30 27 24 ALT -- 12 12 LIPASE 1,120* -- -- -- BILIDIR -- 0.0 0.0 0.0 BILITOT -- 0.4 0.4 0.4 ALKPHOS -- 124 128* 96 APTT: Recent Labs 12/16/19 1232 12/16/19 2124 12/17/19 0459 APTT 42.9* 133.1* 105.2* UA: Recent Labs 12/14/19 1136 COLORU Light-Yellow WBCUA 51-100 RBCUA >100 BACTERIA Moderate LEUKOCYTESUR 500 UROBILINOGEN Normal BILIRUBINUR Negative GLUCOSEU Normal KETUA Negative AMORPHOUS Few CULTURES: [facility]@ Recent Labs 12/15/19 0258 POSITIVE: Staphylococcus species (probable Coagulase negative Staph) DETECTED. POSITIVE: mecA (methicillin resistance gene) DETECTED. Presumptive identification performed using [employer] PCR methodology; confirmatory identification to follow. _ The [employer] Blood Culture Identification PCR Panel can detect the following targets: Staphylococcus aureus, Staphylococcus species, Enterococcus species, Streptococcus species, Streptococcus agalactiae (Group B), Streptococcus pneumoniae, Streptococcus pyogenes (Group A), Listeria monocytogenes, Acinetobacter baumannii complex, Enterobacteriaceae, Enterobacter cloacae complex, Escherichia coli, Klebsiella oxytoca, Klebsiella pneumoniae, Proteus species, Serratia marcescens, Pseudomonas aeruginosa, Haemophilus influenzae, Neisseria meningitidis, Shari albicans, Shari glabrata, Shari krusei, Shari parapsilosis, Shari tropicalis * Gram positive cocci in clusters* Isolated: RADIOLOGY: CXR Portable: Results for orders placed during the hospital encounter of 12/14/19 XR CHEST PORTABLE Narrative Patient Name: QUINTEN YARBROUGH ---Diagnostic Radiology--- Exam Date/Time 12/16/2019 11:05:09 EDT Exam CR Chest Portable Ordering Physician MD PEDERSON ERINN Accession Number [id number] CPT4 Codes 71861 () Reason For Exam vascular congestion? consolidation? Report CHEST: CLINICAL INDICATION: Dyspnea TECHNIQUE: AP portable chest COMPARISON: 12/14/2019 FINDINGS: Stable right IJ central venous catheter. The cardiomediastinal silhouette appears unchanged from the prior exam. The lungs are clear. There is no sizable pleural effusion. Degenerative change of the thoracic spine is noted. IMPRESSION: No acute process. Report Dictated on --- Final --- Dictated: 12/16/2019 11:02 am Dictating Physician: MD HENDRICKSON NICHOLAS Signed Date and Time: 12/16/2019 11:03 am Signed by: MD HENDRICKSON NICHOLAS Transcribed Date and Time: 12/16/2019 11:02 Echo 12/16/2019: 1. Findings suggest pulmonary hypertension and secondary RV pressure overload load. 2. Right ventricle: Mildly dilated, normal systolic function. Estimated PA systolic pressure 51 mmHg, RA pressure 15 mmHg. 3. Ventricular septum: There is mild systolic flattening, RV pressure overload pattern. 4. Left ventricle: Normal size and wall thickness. Systolic function is normal by visual assessment. LVEF 60%. Assessment &Plan: 1. Sepsis: resolving, afebrile, WBC trending down ~13 (21 on admit), source likely leg wounds, noted 1of 2 Bld Cx Coa neg staph-likely contaminate tho monitor w/ HD cath-d/c when okay with nephro, Teflaro per ID 2. PARAMJIT/OHVS: RA while awake, Bipap w/ sleep, will need sleep study 3. Metabolic encephalopathy: episodes of agitation, calm this am w/ prn seroquel (given this am), off precedex, holding home flexeril, baclofen, monitor 4. Acute renal failure w/ high AGMA: resolved, HD X1 (12/13), Gap resolved, nephro following 5. Pafib: SR since admit, stop hep gtt & restart home Eliquis 6. NC-NC Anemia: hgb 8.2 (10.5 on admit w/ dehydration), no sign of bleeding while on hep gtt-transition to home Eliquis, plts wnl, monitor 7. Polypharmacy: holding home Lexapro, vistaril, topamx at this time-per psych recommendation, niece to bring in home meds for review 8. PMHx HTN: sBPs ~ 100-120, off levophed ~24hrs, R heart disease, EF 60% (12/15 ECHO), holding homeNorvasc 9. Chronic R leg wounds/skin folds: Miconazole powder to folds, wound care to R leg 10. Bipolar Disorder w/ depressed episode: holding home lexapro, prn seroquel bid, appreciate psychassist 11. Morbid Obesity: Needs lifestyle modification at recovery, consider bariatric evaluation if psych disease stable 12. Debility: PT/OT 13. PMHx GERD?: restart home PPI 14. Hypokalemia/Hypomag: replace K PO, Mag IV 15. FEN: Lashaun good PO, stop MIVF Dispo: Transfer to [facility] Prophylaxis: Stress ulcer: [x] PPI Agent [] H2RA [] Sucralfate [] Other: VTE: [] Enoxaparin [] SC Heparin [x] Eliquis Discussed with Dr. Pathak TRANSFER CHECKLIST Transfer Med Reconciliation (resume home meds if able, convert to PO if able) Complete Antibiotics (name, indication, duration, convert to PO if able) Yes, addressed in today's progress note Steroid (indication, duration, convert to PO if able) None Anticipated Govan Medications (ICU initiated) or Dose Changes and Indication All home medications need reviewed, neice to bring in Permanently Discontinued Home Medications and Reason for medication contraindication psych meds need adjusting Maloney Catheter (please remove if able) Yes, indication mk-wounds Central Line (please remove if able) Yes, indication HD cath, removal per nephro Transfer Discussed with: Adelfo If additional questions for ICU team within 24 hours of ICU transfer, page Dr. Pathak for clarifications. Associated attestation - Jean Pathak MD - 12/17/2019 6:07 PM EDT I reviewed the history, the documented findings, and performed a physical exam of the patient. I agree with ACNP assessment, and we discussed the management of the patient. See orders. * Willian Avitia MD - 12/17/2019 8:44 AM EDT [facility] Neph[facility] Progress Note Subjective/ 49 y.o. year old female who we are seeing in consultation for Colette/ATN and severe acidosis. Interval Hx: S/p IHD 12/13 AF, Blood Pressure noted UOP is good and noted Scr improving K low as expected More awake and alert today Swelling persistent Patient Seen, Chart, Labs, Radiology studies, and Consults reviewed. Objective/ Vitals: 12/17/19 0200 12/17/19 0300 12/17/19 0400 12/17/19 0500 BP: (!) 128/58 130/71 (!) 117/59 Pulse: 80 81 79 76 Resp: 18 18 21 18 Temp: 99 F (37.2 C) TempSrc: SpO2: 97% 100% 99% 100% Weight: Height: 24HR INTAKE/OUTPUT: Intake/Output Summary (Last 24 hours) at 12/17/2019 0844 Last data filed at 12/17/2019 0505 Gross per 24 hour Intake 3370 ml Output 4000 ml Net -630 ml Much more awake and following commands dmm ,no jvd Anterior chest is b/l clear RRR, no mrg or rubs +bs soft, nttp, nd +2 bilateral lower ext edema KIM, No asterixis + maloney in place with clear yellow urine noted in the bag Current Facility-Administered Medications Medication Dose Route Frequency Provider Last Rate Last Dose heparin (porcine) injection 10,000 Units 10,000 Units Intravenous PRN Jerri Pederson MD heparin (porcine) injection 5,000 Units 5,000 Units Intravenous PRN Jerri Pederson MD heparin 25,000 units in dextrose 5% 250 mL infusion 2,100 Units/hr Intravenous Continuous Jerri Pederson MD 17 mL/hr at 12/17/19 0725 1,700 Units/hr at 12/17/19 0725 QUEtiapine (SEROQUEL) tablet 25 mg 25 mg Oral BID PRN Connie Martinez MD acetaminophen (TYLENOL) tablet 1,000 mg 1,000 mg Oral Q8H PRN Jerri Pederson MD oxyCODONE (ROXICODONE) immediate release tablet 5 mg 5 mg Oral Q4H PRN Yifan Hoffmann JD, MD 5 mg at 12/16/19 2127 Or oxyCODONE (ROXICODONE) immediate release tablet 10 mg 10 mg Oral Q4H PRN Yifan Hoffmann JD, MD lactated ringers infusion Intravenous Continuous Jerri Pederson MD 75 mL/hr at 12/16/19 1336 ceftaroline fosamil (TEFLARO) 300 mg in dextrose 5 % 50 mL IVPB 300 mg Intravenous Q12H Mehul Allen DO Stopped at 12/17/19 0330 lidocaine 4 % external patch 1 patch 1 patch Transdermal Daily Bing Tamayo MD 1 patch at 12/16/19 1002 miconazole (MICOTIN) 2 % powder Topical Q8H JAREK Purvis CNP Venelex ointment Topical Q8H JAREK Purvis CNP stomahesive in petrolatum (ET MIX) Topical 3 times per day JAREK Purvis CNP mineral oil-hydrophilic petrolatum (AQUAPHOR) ointment Topical Daily JAREK Purvis CNP sodium chloride flush 0.9 % injection 10 mL 10 mL Intravenous 2 times per day Jerri Pederson MD 10 mLat 12/16/19 1004 sodium chloride flush 0.9 % injection 10 mL 10 mL Intravenous PRN Jerri Pederson MD magnesium hydroxide (MILK OF MAGNESIA) 400 MG/5ML suspension 30 mL 30 mL Oral Daily PRN Jerri Pederson MD promethazine (PHENERGAN) tablet 12.5 mg 12.5 mg Oral Q6H PRN Jerri Pederson MD Or ondansetron (ZOFRAN) injection 4 mg 4 mg Intravenous Q6H PRN Jerri Pederson MD 4 mg at 12/17/19 0119 norepinephrine (LEVOPHED) 16 mg in sodium chloride 0.9 % 250 mL infusion 2 mcg/min Intravenous Continuous Jerri Pederson MD Stopped at 12/16/19 1030 sodium chloride flush 0.9 % injection 10 mL 10 mL Intracatheter Q8H Reynaldo Bello MD Stopped at12/16/19 1145 sodium chloride flush 0.9 % injection 10 mL 10 mL Intracatheter PRN Reynaldo Bello MD perflutren lipid microspheres (DEFINITY) injection 1.65 mg 1.5 mL Intravenous ONCE PRN Kaung H Dias,DO sodium chloride flush 0.9 % injection 10 mL 10 mL Intravenous PRN Kaung H Dias, DO dexmedetomidine (PRECEDEX) 400 mcg in sodium chloride 0.9 % 100 mL infusion 0.2 mcg/kg/hr Intravenous Continuous Genia Corrales, Stopped at 12/16/19 1300 heparin (porcine) 1,700 Units/hr (12/17/19 0725) lactated ringers 75 mL/hr at 12/16/19 1336 norepinephrine Stopped (12/16/19 1030) dexmedetomidine Stopped (12/16/19 1300) Data/ Recent Labs 12/16/19 0147 12/16/19 1232 12/17/19 0210 WBC 13.4* 12.9* 13.1* HGB 8.7* 8.3* 8.2* HCT 26.2* 25.0* 24.5* MCV 88.6 88.5 89.3 PLT 349 309 306 Recent Labs 12/15/19 1550 12/16/19 0147 12/16/19 1232 12/17/19 0210 NA 137 138 138 139 K 2.7* 3.0* 3.2* 3.3* CL 101 103 105 108* CO2 24 23 25 24 GLUCOSE 132* 106* 103* 88 PHOS 5.4* 5.2* -- 3.6 MG 2.1 2.0 1.9 1.8 BUN 85* 76* 69* 55* CREATININE 3.87* 2.86* 1.92* 1.23 Assessment/ - COLETTE - Severe high anion gap metabolic acidosis (improvng) - metabolic encephalopathy - Septic shock - Htn - afib Dg: Colette/ATN severe acidosis from multifactorial Pacreatitis vs Septic shock vs other. Noted baclofen and topamax listed on home meds per niece patient not taking meds. 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 Additionally states she has advance directives. Mental status is waxing and waning and patient was agitated and not oriented at the time and therefore felt to lack capacity. Contacted patient's NOK listed in chart (sister, Brittani) who is not actively involved in patient's life and doesn't know anything about advance directives. Patient lives with her niece Shanel and requested she be called and updated. Phone number for Shanel given by patient ([phone]). Attempted to call but got voicemail. Will continue to attempt to contact niece and obtain further information regarding advance directives. At this point, patient to remain full code given lack of documented advance directives and capacity. Addendum: Was able to contact patient's niece Shanel who is her primary career development coordinator. She states she had been away for about 3 months and patient was living alone and was completely independent in all ADLs and iADLs. About a week before admission she rapidly deteriorated. She expressed concern about all of the medications the patient takes and was interested in bringing them to the hospital tomorrow to go through/dispose of extras. She states to the best of her knowledge the patient does not have any advance directives; however, they have discussed making Shanel HCPOA. Plans to come tomorrow to discuss further. * Reynaldo Stack, [facility] - 12/16/2019 8:24 AM EDT Infectious Diseases has been consulted and will manage Vancomycin at this time. Thank you for the consult. Pharmacy signing off for vancomycin dosing. Reynaldo Stack [facility] Date: 12/16/19 Time: 8:24 AM * Jerri Pederson MD - 12/16/2019 8:19 AM EDT ICU Progress Note Quinten Yarbrough : 1970(49 y.o.) Date: December 15, 2019 Team: ICU Attending: Dr. Gomez Chief Complaint: Unable to obtain Subjective: Remained agitated overnight despite Precedex. Given Versed with little improvement. Per RN, patientdid not sleep at all overnight. This am, patient is alert and oriented, sitting up in bed drinking,responds appropriately to questions. Endorses continued pain in her L hip and R leg 2/2 skin breakdown. Review of Systems Constitutional: Negative for chills and fever. Eyes: Negative for photophobia and visual disturbance. Respiratory: Negative for cough, chest tightness, shortness of breath and wheezing. Cardiovascular: Negative for chest pain, palpitations and leg swelling. Gastrointestinal: Negative for abdominal pain, constipation, diarrhea, nausea and vomiting. Endocrine: Positive for polydipsia. Negative for polyuria. Genitourinary: Negative for dysuria and hematuria. Musculoskeletal: Positive for arthralgias and myalgias. Skin: Positive for wound. Negative for rash. Neurological: Negative for dizziness, syncope, light-headedness and headaches. Scheduled Meds: ceftaroline fosamil (TEFLARO) IVPB 300 mg Intravenous Q12H lidocaine 1 patch Transdermal Daily acetaminophen 1,000 mg Intravenous Q8H miconazole Topical Q8H Venelex Topical Q8H stomahesive in petrolatum Topical 3 times per day mineral oil-hydrophilic petrolatum Topical Daily sodium chloride flush 10 mL Intravenous 2 times per day sodium chloride flush 10 mL Intracatheter Q8H vancomycin (VANCOCIN) intermittent dosing (placeholder) Other RX Placeholder heparin (porcine) 5,000 Units Subcutaneous 3 times per day Continuous Infusions: lactated ringers 125 mL/hr at 12/15/19 1355 norepinephrine 7 mcg/min (12/15/19 1430) dexmedetomidine 0.3 mcg/kg/hr (12/15/19 1430) PRN meds used in last 24hrs: Versed 2mg x1 Objective: VITALS: BP (!) 106/46 Pulse 64 Temp 99.1 F (37.3 C) (Temporal) Resp 17 Ht 5' 5 (1.651 m) Wt (!) 383 lb 6.1 oz (173.9 kg) SpO2 96% BMI 63.80 kg/m CURRENT PULSE OXIMETRY: SpO2: 96 % I/O: 12/13 0701 - 12/14 0700 In: 5112 [I.V.:4612] Out: 3625 [Urine:1125] Ventilator Settings: FiO2 : 30 % Oxygen Delivery - O2 Flow Rate (L/min): 4 L/min Invasive Lines and Dates: [facility] Intubation Date: N/A General Appearance: []WDWN [x]Obese []Cachectic []Thin [x]ill Skin: Temperature [x]Warm []Cool Rash [x]Yes (chronic wounds) []No Tattoo(s) []Yes []No HEENT: Pupils round and react [x]Yes []No Sclera []Icteric [x]Non-Icteric Conjunctiva []Injected [x]Non-Injected Pinnae []Normal []Other Dentitian [][place] Teeth []Dentures Oral Mucosa [x][place] []Moist [x]Dry Oral ETT []Present [x]Absent Neck: Trachea midline [x]Yes []No Thyromegaly []Yes []No Crepitus []Present [x]Absent Jvd []Present [x]Absent Lungs: [x]Clear []Crackles []Wheezes []Rhonchi Respiratory effort []Labored [x]Non-Labored Heart: Rate [x]Regular []Irregular []Tachycardia []Bradycardia Rhythm [x]Regular []Irregular Murmur [x]Present []Absent Peripheral Edema [x]Present []Absent Abdomen: [x]Soft Bowel Sounds [x]Present []Absent []Tender [x]Non-Tender []Distended [x]Non-distended Hernia []Present []Absent Organomegaly []Present []Absent []Scar Extremities: Cyanosis []Present [x]Absent KIM ([x]RUE [x]RLE [x]LUE [x]LLE) Neurologic: SELDOVIA []Yes []No Corneal reflexes []Present []Absent Plantar reflexes []Up []Down []Absent Withdraws to tactile [x]Yes []No Follows Commands [x]Yes []No []Unresponsive to verbal [x]Cranial nerves grossly intact []Sensation grossly intact Psych: Alert [x]yes []no Oriented []x0 []x1 []x2 [x]x3 Affect [x]Normal []Flat []Agitated []Anxious []Calm []Sedated []NAD [facility] within last 72 hours BMP: Recent Labs 12/15/19 0258 12/15/19 0819 12/15/19 1158 NA 135 136 137 K 2.8* 3.0* 2.9* CL 101 102 102 CO2 16* 19* 22 BUN 85* 85* 85* CREATININE 5.40* 4.69* 4.29* CALCIUM 7.7* 7.9* 8.0* MG 2.2 2.1 2.1 PHOS 5.7* 5.8* 5.5* LFTS: Recent Labs 12/14/19 1459 12/15/19 0258 AST 30 27 ALT 12 13 PROT 6.1* 6.0* LABALBU 2.9* 2.9* BILITOT 0.4 0.4 ALKPHOS 124 128* Glucose: Recent Labs 12/14/19 1133 12/14/19 1459 12/14/19 1847 12/14/19 2305 12/15/19 0258 12/15/19 0819 12/15/19 1158 GLUCOSE 95 157* 169* 140* 181* 200* 178* CBC: Recent Labs 12/14/19 1133 12/15/19 0258 WBC 21.4* 17.9* HGB 10.5* 10.2* HCT 32.1* 29.7* PLT 432 448* MCV 90.8 86.6 RDW 17.9* 17.0* ABGs: Recent Labs 12/14/19 1159 12/14/199 12/15/19 0502 PHART 7.167* 7.464* 7.445 KTU3THG 22.7* 18.7* 28.6* PO2ART 143.3* 215.8* 132.9* XUI0BXC 8.2* 13.1* 19.2* C8VONOJE 98.6 99.3 98.4 FIO2A 4 40% No data Lactic Acid: Recent Labs 12/14/19 1133 LACTA 0.6* INR: No results for input(s): INR in the last 72 hours. pro-BNP: No results for input(s): NTPROBNP in the last 72 hours. Cardiac Injury Profile: Recent Labs 12/14/19 1133 TROPONINI <0.012 Labs in Last 3 months: No results found for: CHOL, TRIG, HDL, LDLCHOLESTEROL, TSH, VITD25, PSA, INR, GLUF, NTPROBNP, LABA1C, MALBCR Imaging: No new imaging Cultures: Blood cx 12/13 NGTD Respiratory cx 12/13 pending RVP and urine Ag negative Assessment and Plan: Active Problems: Hypovolemic shock (HCC) Acute renal failure (ARF) (HCC) Metabolic acidosis Hypokalemia Hypocalcemia A-fib (HCC) Anxiety Depression Resolved Problems: * No resolved hospital problems. * Shock - Hypovolemic vs sepsis - Aggressively fluid resuscitated in outside ED, on Levophed - Cultures sent, on renally dosed ceftaroline - ID following, appreciate recs - Procal 1.15, LA WNL - LR @ 150 Acute renal failure, improving - Vascath placed 12/12 for emergent HD - Most recent Scr 2.86 (significantly improved), BUN 76, HCO3 23 - Likely 2/2 polypharmacy as well as diarrhea and dehydration - Nephrology on board, appreciate recs - RP US unremarkable as above - UOP improving, net +4.3L since admission - Renally dose all meds HAGMA, resolved - Suspect 2/2 polypharmacy, dehydration, diarrhea as above - Most recent AG 11 - UDS, volatile panel, ethylene glycol normal - Bicarb gtt stopped yesterday, on LR - Nephrology following, appreciate recs Polypharmacy - Extensive home medication list including many psychiatric drugs - Attempted to advance PO yesterday but pt too lethargic - Psych consulted today to aid in restarting psychiatric medications to minimize risk of drug/drug interactions and further renal toxicity - Patient very emotionally labile, intermittently agitated, would likely benefit from restarting atleast some home antipsychotics Elevated lipase, alk phos - Abdominal exam benign - LFTs normalized, will d/c trend - Hepatitis panel normal Electrolyte disturbances - iCa 3.8 this am - replaced - K 3.0 this am - replaced - Phos 5.2 - improving w/improved kidney fx Chronic wounds - Wound care consult placed, appreciate recs - Miconazole powder for skin folds HTN - Still requiring Levo to maintain MAP > 65 - Hold all home antihypertensives Afib - Anticoagulated on Eliquis at home - Currently NSR - Currently on DVT prophylaxis only - Will restart Eliquis once able to take PO Anxiety/depression - W/polypharmacy as above - Mental status/agitation would likely improve if able to restart some home PO medications GI Prophylaxis: none DVT Prophylaxis: heparin 5000 q 8 hour and SCDs Associated attestation - Arpit Gomez MD - 12/16/2019 10:47 AM EDT This patient was seen and personally examined by me. Labs, imaging studies and electronic medical record reviewed. See [x]progress note []H&P []Consult documented by [x]house wrecker []CHRIS which reflects my hpi, pmh, psh, ros, fh, sh as well with my additions, as I discussed with the [x]house wrecker []CHRIS. For my exam, assessment and plan see below. Tolerating PO Assessment/Plan Encephalopathy: ARF: improving, off NIV during day, will leave on NIV at night Sepsis: improving, on low dose norpinephrine ID:Ceftaroline per ID recs COLETTE/Met acidemia: Non oliguric,improving, received one HD last night, follow nephrology recs Psych: consult psych Full Code * Willian Avitia MD - 12/16/2019 7:49 AM EDT [facility] Progress Note Subjective/ 49 y.o. year old female who we are seeing in consultation for Colette/ATN and severe acidosis. Interval Hx: S/p IHD 12/13 AF, Blood Pressure noted UOP picking up noted Scr improving +sob, orthopnea, no n/v/d Mental status waxing and waning per nursing Swelling persistent Low K is again noted Patient Seen, Chart, Labs, Radiology studies, and Consults reviewed. Objective/ Vitals: 12/16/19 0615 12/16/19 0630 12/16/19 0645 12/16/19 0700 BP: 121/71 (!) 108/56 128/65 (!) 110/56 Pulse: 63 63 62 63 Resp: 17 13 17 20 Temp: TempSrc: SpO2: 98% 98% 98% 98% Weight: Height: 24HR INTAKE/OUTPUT: Intake/Output Summary (Last 24 hours) at 12/16/2019 0750 Last data filed at 12/16/2019 0708 Gross per 24 hour Intake 4985 ml Output 2135 ml Net 2850 ml Much more awake and following commands dmm ,no jvd Distant and diminish RRR, no mrg or rubs +bs soft, nttp, nd +2 bilateral lower ext edema KIM, No asterixis Current Facility-Administered Medications Medication Dose Route Frequency Provider Last Rate Last Dose potassium chloride 20 mEq/50 mL IVPB (Central Line) 20 mEq Intravenous Once Jerri Pederson MD calcium gluconate 1 g in dextrose 5 % 100 mL IVPB 1 g Intravenous Once Jerri Pederson MD lactated ringers infusion Intravenous Continuous Valentino Freed MD 125 mL/hr at 12/15/19 1355 ceftaroline fosamil (TEFLARO) 300 mg in dextrose 5 % 50 mL IVPB 300 mg Intravenous Q12H Mehul Allen, DO Stopped at 12/16/19 0253 lidocaine 4 % external patch 1 patch 1 patch Transdermal Daily Bing Tamayo MD 1 patch at 12/15/19 1523 acetaminophen (OFIRMEV) infusion 1,000 mg 1,000 mg Intravenous Q8H Bing Tamayo MD Stopped at 12/16/19 0627 miconazole (MICOTIN) 2 % powder Topical Q8H JAREK Purvis CNP Venelex ointment Topical Q8H JAREK Purvis CNP stomahesive in petrolatum (ET MIX) Topical 3 times per day JAREK Purvis CNP mineral oil-hydrophilic petrolatum (AQUAPHOR) ointment Topical Daily JAREK Purvis CNP sodium chloride flush 0.9 % injection 10 mL 10 mL Intravenous 2 times per day Jerri Pederson MD 10 mLat 12/15/19 0856 sodium chloride flush 0.9 % injection 10 mL 10 mL Intravenous PRN Jerri Pederson MD acetaminophen (TYLENOL) tablet 650 mg 650 mg Oral Q6H PRN Jerri Pederson MD Or acetaminophen (TYLENOL) suppository 650 mg 650 mg Rectal Q6H PRN Jerri Pederson MD magnesium hydroxide (MILK OF MAGNESIA) 400 MG/5ML suspension 30 mL 30 mL Oral Daily PRN Jerri Pederson MD promethazine (PHENERGAN) tablet 12.5 mg 12.5 mg Oral Q6H PRN Jerri Pederson MD Or ondansetron (ZOFRAN) injection 4 mg 4 mg Intravenous Q6H PRN Jerri Pederson MD norepinephrine (LEVOPHED) 16 mg in sodium chloride 0.9 % 250 mL infusion 2 mcg/min Intravenous Continuous Jerri Pederson MD 2.8 mL/hr at 12/16/19 0708 3 mcg/min at 12/16/19 0708 sodium chloride flush 0.9 % injection 10 mL 10 mL Intracatheter Q8H Reynaldo Bello MD 10 mL at 12/15/19 1355 sodium chloride flush 0.9 % injection 10 mL 10 mL Intracatheter PRN Reynaldo Bello MD vancomycin (VANCOCIN) intermittent dosing (placeholder) Other RX Placeholder Yadira Dias DO heparin (porcine) injection 5,000 Units 5,000 Units Subcutaneous 3 times per day Yadira Disa DO 5,000 Units at 12/16/19 0530 perflutren lipid microspheres (DEFINITY) injection 1.65 mg 1.5 mL Intravenous ONCE PRN Kaung H Dias,DO sodium chloride flush 0.9 % injection 10 mL 10 mL Intravenous PRN Kaung H Dias, DO dexmedetomidine (PRECEDEX) 400 mcg in sodium chloride 0.9 % 100 mL infusion 0.2 mcg/kg/hr Intravenous Continuous Genia Corrales, DO 34.8 mL/hr at 12/16/19 0529 0.8 mcg/kg/hr at 12/16/19 0529 lactated ringers 125 mL/hr at 12/15/19 1355 norepinephrine 3 mcg/min (12/16/19 0708) dexmedetomidine 0.8 mcg/kg/hr (12/16/19 0529) Data/ Recent Labs 12/14/19 1133 12/15/19 0258 12/16/19 0147 WBC 21.4* 17.9* 13.4* HGB 10.5* 10.2* 8.7* HCT 32.1* 29.7* 26.2* MCV 90.8 86.6 88.6 PLT 432 448* 349 Recent Labs 12/15/19 1158 12/15/19 1550 12/16/19 0147 NA 137 137 138 K 2.9* 2.7* 3.0* CL 102 101 103 CO2 22 24 23 GLUCOSE 178* 132* 106* PHOS 5.5* 5.4* 5.2* MG 2.1 2.1 2.0 BUN 85* 85* 76* CREATININE 4.29* 3.87* 2.86* Assessment/ - COLETTE - Severe high anion gap metabolic acidosis - metabolic encephalopathy - Septic shock - Htn - afib Dg: Colette/ATN severe acidosis from multifactorial Pacreatitis vs Septic shock vs other. Noted baclofen and topamax listed on home meds per niece patient not taking meds. Plan/ - Scr improving as UO is picking up (non-oliguric now), suspect pt is going into post-ATN diuresis recovery phase Agree with dc bicarb drip today However will replace at least 50 percent of her UO. No acute AFLOAT CRYPTOLOGIC MANAGER needs today and expect recovery to continue unless any further renal insults, keep MAPS > 65 at all times - Ok to use lasix PRN SOB/Hypoxia - Will replace electrolytes, PRN Noted prior UA with + WBC, + RBC, Up/Uc 0.5, will need repeat UA once she recovers - Agree with septic work up- and defer to ICU team - wean of levo, will defer to MICU team - Renally dose all meds - will follow/call if any questions Complex mdm [facility] * Aidee Burleson, RN - 12/15/2019 1:00 PM EDT Wound Care consulted for evaluation of Right LE. 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 Wound assessed with Dr Allen, ID. Pt reports the areas on her right LE began about 6 weeks ago. Pt does not know what dressing was being used at home. Right medial thigh down to ankle and circumferentially around calf, with partial thickness wounds, sloughing skin and dry krueger thin eschars. (see 2 photos below) Crusted drainage and dog hair noted within wounds. (pt reports she has 1 dog) Wounds measured as cluster, 55 x 50cm Largeamount of serous drainage noted on pad under pt. No odor noted. Periwound clear, no erythema or induration. Wounds cleansed with saline, patted dry and adaptic topped with maxsorb and ABD pads applied to calf, secured with kerlix. Medial thigh cleansed with saline, patted dry and left open to air. Coccyx to deep gluteal cleft with DTI pressure injury measuring 8 x 1.5cm, dark purple nonblanchable. (see photo below) Periwound pink and blanchable. No drainage. Sacral foam dressing removed and left off. Cleansed with saline and left open to air. Left LE intact. Left DP doppler pulse +2. Heels intact with blanchable erythema. Right DP doppler pulse +2, Pt doppler pulse +1. 12/13 Venous ultrasound= no evidence of acute deep or superficial venous thrombosis. Pt's left abdominal fold, groin and left breast fold with yeast like rash and very moist. Pt did not participate much during wound assessment and dressing application. 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 [facility] (due to pt's girth) Adaptic topped with maxsorb to right lower leg, secure with kerlix every 12hrs. Cleanse first with saline Aquaphor to both legs/feet daily Elevate heels off bed Heelmedix boots Nystatin powder to abdominal folds, groin and left breast fold every 8hrs, apply maxsorb to left abdominal fold and left breast fold. Consult to Medical Laboratory Assistant Bariatric waffle chair cushion Venelex ointment to coccyx every 8hrs, top with ET Mix to buttocks/coccyx every 8hrs Turn/position every 2hrs with glide sheet and wedges Associated attestation - Celsa Nation APRN - CNP - 12/15/2019 5:06 PM EDT ICelsa saw and evaluated patient's wounds. I personally obtained lind elements of the history and physical exam. I reviewed the chart, wound care nurse, Maeve Burleson RN, documentation and discussed the patient with her. I agree with Maeve Burleson RN wound assessment and treatment plan. Celsa Nation CNP * Jennifer Zavaleta, RD, LD - 12/15/2019 12:09 PM EDT Nutrition Assessment Type and Reason for Visit: Initial, RD Nutrition Re-Screen Nutrition Recommendations: 1. Begin nutrition: If EN started, recommend goal of Semi Elemental- Pivot 1.5 @ 40 ml per hour goal rate. This provides 1440 kcals, 90 gm protein, 728 ml free water, 1920 mg potassium or 25 kcals/kg, 1.59 gm protein/kgof IBW 56.7 kg. 2. If po deemed safe to start, recommend advance dit to goal of 2 gm sodium, low phosphorus diet. Monitor need for renal diet restrictions with COLETTE. 3. Monitor weight, labs, fluid, and nutritional status. 4. RD will follow up weekly. Nutrition Assessment: Patient admitted for shock and COLETTE. Vasc cath placed for emergent iHD. Pt requring NIV this am. PMH: Anxiety, Depression, HTN, Carmen, Gastric Bypass. Malnutrition Assessment: Malnutrition Status: At risk for malnutrition Context: Acute illness or injury Nutrition Risk Level: High Nutrient Needs: Estimated Daily Total Kcal: 25-30 kcals per kg = 7556-6469 kcals per day Estimated Daily Protein (g): 1.3-1.5 gm per kg = 74-85 gm per day Estimated Daily Total Fluid (ml/day): Per MD Nutrition Diagnosis: Problem: Inadequate energy intake Etiology: related to Impaired respiratory function-inability to consume food, Cognitive or neurological impairment ? Signs and symptoms: as evidenced by NPO status due to medical condition Objective Information: Nutrition-Focused Physical Findings: Abdomen rounded, rotund, hypoactive bowel sounds, I/O: +1487. 3/11/23 HD 3K+ Bath, 2000 ml net removed. Labs: K+ 2.8, BUN 85, Cr 5.40, Ionized Calcium 3.6, BG 181,Phos 5.7, Alb 2.9, Alk Phos 128 Wound Type: (Colin = 13; noted chronic BLE wounds) Current Nutrition Therapies: Oral Diet Orders: NPO Oral Diet intake: NPO Oral Nutrition Supplement (ONS) Orders: None ONS intake: NPO Anthropometric Measures: Ht: 5' 5 (165.1 cm) Current Body Wt: 383 lb (173.7 kg)(bed scale) Admission Body Wt: 387 lb (175.5 kg) [place] Body Wt: 125 lb (56.7 kg), % [place] Body 306% BMI Classification: BMI > or equal to 40.0 Obese Class III Nutrition Interventions: Continue NPO Continued Inpatient Monitoring Nutrition Evaluation: Evaluation: Goals set Goals: Patient receive nutrition within next 48 hours. Monitoring: Nutrition Progression, Skin Integrity, Wound Healing, I&O, Mental Status/Confusion,Weight, Pertinent Labs, Diarrhea, Patient/Family Education, Monitor Hemodynamic Status, Monitor Bowel Function Contact Number: [phone] * Valentino Freed MD - 12/15/2019 8:18 AM EDT [facility] Progress Note [facility] ICU T3 Patient: Quinten Yarbrough Unit/Bed: [facility]/[id number] Date of : 1970 Acct: [id number] Admitting Diagnosis: Hypovolemic shock (HCC) [R57.1] Admit Date: 12/14/2019 Hospital Day: 1 Subjective: Patient is having problems with COLETTE/ATN Severe Acidosis S/p IHD 12/13 AF, Blood Pressure with low fluctuations UOP appropriate Scr improving +sob, orthopnea, no n/v/d Mental status improved Swelling persistent Patient Seen, Chart, Labs, Radiology studies, and Consults reviewed. Objective: BP (!) 103/49 Pulse 70 Temp 98.2 F (36.8 C) (Temporal) Resp 19 Ht 5' 5 (1.651 m) Wt (!) 383 lb 6.1 oz (173.9 kg) SpO2 100% BMI 63.80 kg/m Intake/Output Summary (Last 24 hours) at 12/15/2019 0819 Last data filed at 12/15/2019 0500 Gross per 24 hour Intake 5112 ml Output 3625 ml Net 1487 ml Much more awake and following commands dmm ,no jvd Distant and diminish RRR, no mrg or rubs +bs soft, nttp, nd +2 bilateral lower ext edema KIM, No asterixis Diet: Diet NPO Effective Now Medications: sodium chloride flush 10 mL Intravenous 2 times per day sodium chloride flush 10 mL Intracatheter Q8H vancomycin (VANCOCIN) intermittent dosing (placeholder) Other RX Placeholder heparin (porcine) 5,000 Units Subcutaneous 3 times per day miconazole Topical BID meropenem 1 g Intravenous Q12H Continuous Infusions: norepinephrine 8 mcg/min (12/15/19 0702) sodium bicarbonate infusion 250 mL/hr at 12/15/19 0457 dexmedetomidine 0.4 mcg/kg/hr (12/15/19 0457) PRN Meds:sodium chloride flush, acetaminophen OR acetaminophen, magnesium hydroxide, promethazine OR ondansetron, sodium chloride flush, perflutren lipid microspheres, sodium chloride flush DVT Prophylaxis:heparin Data: CBC: Recent Labs 12/14/19 1133 12/15/19 0258 WBC 21.4* 17.9* RBC 3.54* 3.43* HGB 10.5* 10.2* HCT 32.1* 29.7* MCV 90.8 86.6 RDW 17.9* 17.0* PLT 432 448* BMP: Recent Labs 12/14/19 1847 12/14/19 2305 12/15/19 0258 NA 137 138 135 K 3.9 3.3* 2.8* CL 107 104 101 CO2 8* 12* 16* PHOS 9.9* 5.7* 5.7* BUN 134* 86* 85* CREATININE 8.81* 5.70* 5.40* BNP: No results for input(s): BNP in the last 72 hours. PT/INR: No results for input(s): PROTIME, INR in the last 72 hours. APTT: No results for input(s): APTT in the last 72 hours. CARDIAC ENZYMES: No results for input(s): CKMB, CKMBINDEX, TROPONINT in the last 72 hours. Invalid input(s): CKTOTAL;3 FASTING LIPID PANEL:No results found for: CHOL, HDL, TRIG LIVER PROFILE: Recent Labs 12/14/19 1459 12/15/19 0258 AST 30 27 ALT 12 13 BILIDIR 0.0 0.0 BILITOT 0.4 0.4 ALKPHOS 124 128* ABGs: Lab Results Component Value Date PH 7.42 12/15/2019 Assessment/Plan: - COLETTE - Severe high anion gap metabolic acidosis - metabolic encephalopathy - Septic shock - Htn - afib Volume:euvolemic to mild hypovolemic Electrolytes: hypocalcemia Acid Base d/o:severe hagma, compensating for UOP: Hemodynamics/Hgb Renal Function:bl 1.0 MBD: PTH Vit D, Phos 10.7 UA:pyruia high rbc and wbc TP/Cr: 0.5g FeNA/Urea 1.97 No fevers, eos, no rash No NSAID No Contrast exposure Average SBP at HOME: Dg: Colette/ATN severe acidosis from multifactorial Pacreatitis vs Septic shock vs other. Noted baclofen and topamax listed on home meds per niece patient not taking meds. Plan/ - Scr improve as expected per HD, good response to IV lasix, BP unstable. Hold on HD for today. Will re-evaluate this afternoon. - Volume status: hypervolemic - HAGMA improved, volatile panel pending, peyman - AB status: metabolic acidosis with resp alkalosis, Osm gap 8, delta < 0.75 co- existing nagma (diarrhea). Unlikely methanol and ethy glycol poisoning. Suspected HAGMA from Uremia + sepsis UTI?Wound? - Noted hypokalemia and hypocalcemia replaced 12/14 - Will decrease sodium bicarbonate from 250 to 150cc/hr - Ok to use lasix PRN SOB/Hypoxia - Will replace electrolytes - No hyperkalemia - High risk for decompensation and needing AFLOAT CRYPTOLOGIC MANAGER in next 24 hrs - Agree with septic work up - Renally dose all meds Thank you for asking us to participate in the management of your patient, please do not hesitate tocontact me for any concerns regarding my recommendations as outlined above. Please do no hesitate to call with any questions Pager [phone] / * Jerri Pederson MD - 12/15/2019 6:14 AM EDT ICU Progress Note Quinten Yarbrough : 1970(49 y.o.) Date: December 15, 2019 Team: ICU Attending: Dr. Gomez Chief Complaint: Unable to obtain Subjective: Patient admitted yesterday from OSH for shock and ARF. Vascath placed yesterday and patient dialyzed w/removal of 2L. Extremely agitated overnight so started on Precedex and prn Ativan. Restraints placed. This am, patient more hypotensive on 12mcg of Levo w/MAPs in the 40s-50s. Intermittently bradycardic. Still very agitated, reaching for NIV, yelling for mask to be removed. Patient is not redirectable or oriented, unable to answer questions. Review of Systems Unable to perform ROS: Mental status change Scheduled Meds: albumin human 50 g Intravenous Once sodium chloride flush 10 mL Intravenous 2 times per day sodium chloride flush 10 mL Intracatheter Q8H vancomycin (VANCOCIN) intermittent dosing (placeholder) Other RX Placeholder heparin (porcine) 5,000 Units Subcutaneous 3 times per day miconazole Topical BID meropenem 1 g Intravenous Q12H Continuous Infusions: norepinephrine 10 mcg/min (12/15/19 0632) sodium bicarbonate infusion 250 mL/hr at 12/15/19 045 dexmedetomidine 0.4 mcg/kg/hr (12/15/19456) PRN meds used in last 24hrs: Benadryl 25mg 2255 Objective: VITALS: BP (!) 110/55 Pulse 76 Temp 98.2 F (36.8 C) (Temporal) Resp 15 Ht 5' 5 (1.651 m) Wt (!) 383 lb 6.1 oz (173.9 kg) SpO2 100% BMI 63.80 kg/m CURRENT PULSE OXIMETRY: SpO2: 100 % I/O: 12/13 0701 - 12/14 07 In: 5112 [I.V.:4612] Out: 3625 [Urine:1125] Ventilator Settings: FiO2 : 30 % Oxygen Delivery - O2 Flow Rate (L/min): 4 L/min Invasive Lines and Dates: [facility] Intubation Date: N/A General Appearance: []WDWN [x]Obese []Cachectic []Thin [x]ill Skin: Temperature [x]Warm []Cool Rash [x]Yes (chronic wounds) []No Tattoo(s) []Yes []No HEENT: Pupils round and react [x]Yes []No Sclera []Icteric [x]Non-Icteric Conjunctiva []Injected [x]Non-Injected Pinnae []Normal []Other Dentitian [][place] Teeth []Dentures Oral Mucosa [][place] []Moist []Dry Oral ETT []Present [x]Absent Neck: Trachea midline [x]Yes []No Thyromegaly []Yes []No Crepitus []Present [x]Absent Jvd []Present [x]Absent Lungs: []Clear []Crackles []Wheezes [x]Rhonchi Respiratory effort [x]Labored []Non-Labored Heart: Rate [x]Regular []Irregular []Tachycardia []Bradycardia Rhythm [x]Regular []Irregular Murmur []Present [x]Absent Peripheral Edema [x]Present []Absent Abdomen: [x]Soft Bowel Sounds [x]Present []Absent []Tender [x]Non-Tender []Distended [x]Non-distended Hernia []Present []Absent Organomegaly []Present []Absent []Scar Extremities: Cyanosis []Present [x]Absent KIM ([x]RUE [x]RLE [x]LUE [x]LLE) Neurologic: SELDOVIA []Yes []No Corneal reflexes []Present []Absent Plantar reflexes []Up []Down []Absent Withdraws to tactile [x]Yes []No Follows Commands [x]Yes []No []Unresponsive to verbal [x]Cranial nerves grossly intact []Sensation grossly intact Psych: Alert [x]yes []no Oriented []x0 [x]x1 []x2 []x3 Affect []Normal []Flat [x]Agitated [x]Anxious []Calm []Sedated []NAD Select Labs within last 72 hours BMP: Recent Labs 12/14/19 18412/14/19230412/15/19 0258 NA 137 138 135 K 3.9 3.3* 2.8* CL 107 104 101 CO2 8* 12* 16* BUN 134* 86* 85* CREATININE 8.81* 5.70* 5.40* CALCIUM 7.5* 8.1* 7.7* MG 2.6* 2.3 2.2 PHOS 9.9* 5.7* 5.7* LFTS: Recent Labs 12/14/19 14512/15/19 0258 AST 30 27 ALT 12 13 PROT 6.1* 6.0* LABALBU 2.9* 2.9* BILITOT 0.4 0.4 ALKPHOS 124 128* Glucose: Recent Labs 12/14/19 1133 12/14/19 1459 12/14/19 18412/14/19 2305 12/15/19 0258 GLUCOSE 95 157* 169* 140* 181* CBC: Recent Labs 12/14/19 11312/15/19 0258 WBC 21.4* 17.9* HGB 10.5* 10.2* HCT 32.1* 29.7* PLT 432 448* MCV 90.8 86.6 RDW 17.9* 17.0* ABGs: Recent Labs 12/14/19 1159 12/14/19203812/15/19 0502 PHART 7.167* 7.464* 7.445 NOJ3SIZ 22.7* 18.7* 28.6* PO2ART 143.3* 215.8* 132.9* ZDS5OTU 8.2* 13.1* 19.2* [id number] 98.6 99.3 98.4 FIO2A 4 40% No data Lactic Acid: Recent Labs 12/14/19 1133 LACTA 0.6* INR: No results for input(s): INR in the last 72 hours. pro-BNP: No results for input(s): NTPROBNP in the last 72 hours. Cardiac Injury Profile: Recent Labs 12/14/19 1133 TROPONINI <0.012 Labs in Last 3 months: No results found for: CHOL, TRIG, HDL, LDLCHOLESTEROL, TSH, VITD25, PSA, INR, GLUF, NTPROBNP, LABA1C, MALBCR Imaging: RP ultrasound 12/13 demonstrated no hydronephrosis CXR 12/13: unremarkable, good placement of Vascath Cultures: Blood and respiratory cultures 12/14 pending RVP and urine Ag negative Assessment and Plan: Active Problems: Hypovolemic shock (HCC) Acute renal failure (ARF) (HCC) Metabolic acidosis Hypokalemia Hypocalcemia A-fib (HCC) Anxiety Depression Resolved Problems: * No resolved hospital problems. * Shock - Hypovolemic vs sepsis - Aggressively fluid resuscitated in outside ED, on Levophed - Cultures sent, continue empiric vanc and Zosyn - Procal 1.15, LA WNL - Remains on bicarb gtt @ 250cc/hr - Given albumin 50g x1 this am w/significant improvement in MAPs Acute renal failure - Vascath placed yesterday for emergent IHD - Most recent Scr 5.4 (downtrending), BUN 85, HCO3 16 - Likely 2/2 polypharmacy as well as diarrhea and dehydration - Nephrology on board, appreciate recs - RP US unremarkable as above - Still having some UOP (1125 cc total yesterday) - Renally dose all meds HAGMA, improving - Most recent AG 18, pH 7.445 - UDS, volatile panel, ethylene glycol normal - Remains on bicarb gtt as above - Nephrology following, continue prn IHD Polypharmacy - Extensive home medication list including many psychiatric drugs - Patient remains on NIV and encephalopathy, unable to take PO - Will discuss with pharmacy regarding which medications to restart to avoid withdrawal - Will benefit from polypharmacy consult when more stable Elevated lipase, alk phos - Abdominal exam benign - LFTs relatively unchanged - Hepatitis panel normal Electrolyte disturbances - iCa 3.6 this am - replaced - K 2.8 this am - replace beginning w/40mEq so as to avoid hyperkalemia - Phos 5.7 - correct w/IHD Chronic wounds - Wound care consult placed - Miconazole powder for skin folds HTN - Currently hypotensive, on Levo as above - Hold all home antihypertensives Afib - Anticoagulated on Eliquis at home - Currently NSR - Currently on DVT prophylaxis only Anxiety/depression - W/polypharmacy as above - Will discuss which medications to continue holding vs restart w/pharmacy today GI Prophylaxis: none DVT Prophylaxis: heparin 5000 q 8 hour and SCDs Associated attestation - Arpit Gomez MD - 12/15/2019 6:22 PM EDT This patient was seen and personally examined by me. Labs, imaging studies and electronic medical record reviewed. See [x]progress note []H&P []Consult documented by [x]house wrecker []CHRIS which reflects my hpi, pmh, psh, ros, fh, sh as well with my additions, as I discussed with the [x]house wrecker []CHRIS. For my exam, assessment and plan see below. Assessment/Plan Encephalopathy: improving ARF: improving, off NIV during day, will leave on NIV at night Sepsis: improving, on low dose norpinephrine ID:Ceftaroline per ID recs COLETTE?Met acidemia: Non oliguric,improving, received one HD last night, follow nephrology recs Psych: will assess wakefulness and swallowing and decide about Full Code Start time Hours, stop time Hours. Excluding procedures, the total critical care time caring for this patient with life threatening, unstable organ failure, including direct patient contact, review of medical record, management of life support systems, review of data including imaging and labs, discussions with other team members, patient's family and physicians at least 32 minutes so far today. * Jonathan Ulloa RN - 12/14/2019 7:56 PM EDT Patient Name: Quinten Yarbrough Patient : 1970 Acct: [id number] Date of Admission: 12/14/2019 Room/Bed: [facility]/[place] Code Status: Full Code Allergies: Allergies Allergen Reactions Iodides Hives Gabapentin Swelling Amoxicillin-Pot Clavulanate Hives and Rash Diagnosis: Patient Active Problem List Diagnosis Tear of left rotator cuff Hypovolemic shock (HCC) Treatment: Hemodialysis 1:1 Priority: STAT Location: ICU Diabetic: No NPO: Yes Isolation Precautions: Dialysis Consent for Treatment Verified: Yes Blood Consent Verified: Not Applicable Safety Verified: Identify (I), Consent (C), Equipment (E), HepB Status (B), Orders Complete (O), Access Verified (A) and Timeliness (T) Time out performed prior to access at 1925 hours. Report Received from Primary RN at 1900 hours. Primary RN (First Initial, Last Name, Title): Anupam Gardiner RN Incapacitated Nurse Education Completed: Yes HBsAg ONLY: Date Drawn: Results: Unknown HBsAb: Date Drawn: Results: Unknown Order Dialysis Bath K+ (Potassium): 3 Ca+ (Calcium): 2.5 Na+ (Sodium): 137 HCO3 (Bicarb): 32 Na+ Modeling: Not Applicable Dialyzer: [id number] Dialysate Temperature (C): 36 Blood Flow Rate (BFR): 350 Dialysate Flow Rate (DFR): 700 Access to be Utilized Access: Non-tunneled Catheter Location: Internal Jugular Side: Right Needle gauge: Not Applicable + Bruit/Thrill: Not Applicable First Use X-ray Verified: Yes OK to use line order: Yes Site Assessment: Signs and Symptoms of Infection/Inflammation: None If yes: Not Applicable Dressing: Dry and Intact Site Prep: Medical Aseptic Technique Dressing Changed this Treatment: No If yes, by whom: Bedside RN Date of Last Dressing Change: December 14, [address]?: Yes Red Alcohol Caps in place?: Yes Gauze Dressing?: No Non Dialysis Use?: No Comment: Flows: Good, Patent If access problem, who was notified: Pre and Post-Assessment Patient Vitals for the past 8 hrs: Level of Consciousness Heart Rhythm Respiratory Quality/Effort O2 Device Bilateral Breath Sounds Skin Color Skin Condition/Temp Abdomen Inspection Edema Edema Generalized Pain Level 12/14/19 1730 1 Accessory muscle use;Dyspnea with exertion Rotund;Rounded Generalized +1 12/14/191914 1 Irregular Accessory muscle use;Dyspnea with exertion PAP (positive airway pressure)Diminished Pale Cool Rotund;Rounded Generalized +2 0 12/14/192199 Diminished Generalized +2 0 Labs Recent Labs 12/14/19 1133 WBC 21.4* HGB 10.5* HCT 32.1* PLT 432 Recent Labs 12/14/19 1133 12/14/19 1459 12/14/19 1847 NA 138 136 137 K 4.4 4.2 3.9 CL 111* 108* 107 CO2 5* 7* 8* BUN 138* 138* 134* CREATININE 9.46* 9.09* 8.81* GLUCOSE 95 157* 169* IV Drips and Rate/Dose norepinephrine 10 mcg/min (12/14/192217) sodium bicarbonate infusion 250 mL/hr at 12/14/19 165 Safety - Before each treatment: Dialysis Machine No.: [id number] RO Machine No.: [id number] Dialyzer Lot No.: [id number] RO Machine Log Sheet Completed: Yes Machine Alarm Self Test: Completed;Passed (12/14/191914) Machine Autotest: Completed, Passed Air Foam Detector: Tested, Proper Function Extracorporeal Circuit Tested for Integrity: Yes Machine Conductivity: 14.0 Manual Conductivity: 14.1 Manual Ph: 7 Bleach Test (Neg): Yes Bath Temperature: 96.8 F (36 C) Tubing Lot#: [id number] Conductivity Meter Serial #: [id number] [employer] Secure?: Yes Venous Parameters Set?: Yes Arterial Parameters Set?: Yes Saline Line Double Clamped?: Yes Air Foam Detector Engaged?: Yes Machine Functioning Alarm Free? Yes Prime Given: 200ml Chlorine Testing - Before each treatment and every 4 hours: Treatment Treatment Number: 1 Time On: 1931 Time Off: 2199 Weight: (!) 383 lb 6.1 oz (173.9 kg) (12/14/192199) 1st check: less than 0.1 ppm at: 1923 hours 2nd check: less than 0.1 ppm at: Not Applicable 3rd check: Not Applicable (if greater than 0.1 ppm, then check every 30 minutes from secondary) Access Flows and Pressures Patient Vitals for the past 8 hrs: Blood Flow Rate (ml/min) Ultrafiltration Rate (ml/hr) Ultrafiltration Total Arterial Pressure (mmHg) Venous Pressure (mmHg) TMP DFR Comments Access Visible 12/14/19 193 200 ml/min 1000 ml/hr -90 mmHg 110 40 700 Tx initiated Yes 12/14/19 194 200 ml/min 1000 ml/hr 250 ml -90 mmHg 120 50 700 Stable Yes 12/14/191999 350 ml/min 1000 ml/hr 498 ml -210 mmHg 220 50 700 Stable. Resting Yes 12/14/192014 350 ml/min 1000 ml/hr 810 ml -230 mmHg 220 50 700 Stable Yes 12/14/192029 350 ml/min 1000 ml/hr 968 ml -230 mmHg 220 50 700 RT at bedside getting ABG. Unable to take SBP Yes 12/14/19 2045 350 ml/min 1000 ml/hr 1298 ml -230 mmHg 220 50 700 Stable. Yes 12/14/19 2100 350 ml/min 1000 ml/hr 1427 ml -230 mmHg 220 50 700 Stable Yes 12/14/19 2115 350 ml/min 1000 ml/hr 1647 ml -230 mmHg 220 50 700 Stable Yes 12/14/19 2130 350 ml/min 1000 ml/hr 1984 ml -230 mmHg 220 50 700 Stable Yes 12/14/19 2145 350 ml/min 1000 ml/hr 2238 ml -230 mmHg 220 50 700 Pt requesting PAP mask to be takenoff Yes 12/14/19 2200 350 ml/min 1000 ml/hr 2500 ml -230 mmHg 220 50 700 Tx complete Yes Vital Signs Patient Vitals for the past 8 hrs: BP Temp Pulse Resp SpO2 Weight Weight Method Percent Weight Change 12/14/19 1430 108/81 75 16 100 % 12/14/19 1445 (!) 77/54 87 18 100 % 12/14/19 1500 (!) 159/140 75 21 100 % 12/14/19 1515 (!) 96/50 72 17 100 % 12/14/19 1530 83/63 85 17 100 % 12/14/19 1545 (!) 78/55 66 15 100 % 12/14/19 1600 108/68 74 15 100 % 12/14/19 1615 93/81 77 17 100 % 12/14/19 1630 (!) 105/41 66 17 100 % 12/14/19 1645 (!) 104/90 98.2 F (36.8 C) 68 17 100 % 12/14/19 1700 (!) 68/53 68 15 100 % 12/14/19 1715 (!) 71/61 78 16 100 % 12/14/19 1730 (!) 143/127 70 17 100 % 12/14/19 1745 (!) 70/61 82 16 100 % 12/14/19 1800 99/76 86 18 100 % 12/14/19 1815 (!) 79/52 70 16 100 % 12/14/19 1830 (!) 71/51 80 19 100 % 12/14/19 1845 (!) 73/39 74 16 94 % 12/14/19 1915 (!) 127/97 98.4 F (36.9 C) 75 15 99 % (!) 387 lb 12.6 oz (175.9 kg) Bed scale 0 12/14/19 193 (!) 110/98 83 12/14/191944 (!) 99/53 73 12/14/191999 94/70 66 12/14/192014 (!) 96/59 70 12/14/192022 17 12/14/192024 17 99 % 12/14/19 2030 63 12/14/192044 104/61 65 21 100 % 12/14/19 2100 92/61 75 21 100 % 12/14/195 105/68 67 22 100 % 12/14/19 2130 84/64 96 25 100 % 12/14/19 2145 89/65 69 12/14/19 2200 108/77 98.4 F (36.9 C) 71 (!) 383 lb 6.1 oz (173.9 kg) Bed scale -1.14 Post-Dialysis Arterial Catheter Locking Solution: Heparin (1000units:1ml) Volume (ml): 1.1 Venous Catheter Locking Solution: Heparin (1000units:1ml) Volume (ml): 1.1 Post-Treatment Procedures: Blood returned, Catheter capped, clamped and heparinized x 2 ports Machine Disinfection Process: Bleach Rinseback Volume (ml): 300 ml Dialyzer Clearance: Lightly streaked Duration of Treatment (minutes): 150 minutes Hemodialysis Intake (ml): 500 ml Hemodialysis Output (ml): 2500 ml NET Removed (ml): 2000 ml Tolerated Treatment: Good Patient Response to Treatment: Stable. Pt anxious at end of tx Physician Notified?: No Provider Notification Handoff complete and report given to Primary RN at 2215 hours. Primary RN (First Initial, Last Name, Title): Shruti Harper RN Education Person Educated: Patient Knowledge Base: None Barriers to Learning?: None Preferred method of Learning: Oral Topic(s): Procedural Teaching Tools: Explanation Response to Education: Verbalized Understanding * Arpit Gomez MD - 12/14/2019 2:19 PM EDT This patient was seen and personally examined by me. Labs, imaging studies and electronic medical record reviewed. See []progress note [x]H&P []Consult documented by [x]house wrecker []CHRIS which reflects my hpi, pmh, psh, ros, fh, sh as well with my additions, as I discussed with the [x]house wrecker []CHRIS. For my exam, assessment and plan see below. 49 yr old lady with Morbid obesity, with paramjit on cpap, lymphedema, leg wounds was brought to [facility] ED with enecphalopathy and was found to be in colette., hypovolemic, and has been resuscitated with IVF and norepinephrine via peripheral vein and care transferred to [facility] ICU. With resuscitation ,she now response to voice but minimal PHYSICAL EXAM: VITALS: BP 112/86 Pulse 76 Temp 97.2 F (36.2 C) (Temporal) Resp 19 Ht 5' 5 (1.651 m) Wt (!) 387 lb 12.6 oz (175.9 kg) SpO2 100% BMI 64.53 kg/m Objective: 24HR INTAKE/OUTPUT: Intake/Output Summary (Last 24 hours) at 12/14/2019 1419 Last data filed at 12/14/2019 1147 Gross per 24 hour Intake Output 25 ml Net -25 ml CURRENT PULSE OXIMETRY: SpO2: 100 % 24HR PULSE OXIMETRY RANGE: SpO2 Av.5 % Min: 97 % Max: 100 % Physical Exam: General Appearance: []WDWN [x]Obese []Cachectic []Thin []ill Skin: Temperature [x]Warm []Cool Rash []Yes []No Tattoo(s) []Yes []No HEENT: Pupils round and react [x]Yes []No Sclera []Icteric []Non-Icteric Conjunctiva []Injected [x]Non-Injected Pinnae [x]Normal []Other Dentitian [][place] Teeth []Dentures []Poor dentition Oral Mucosa [][place] [x]Moist []Dry Oral ETT []Present [x]Absent Neck: Trachea midline [x]Yes []No Thyromegaly []Yes [x]No Crepitus []Present [x]Absent Jvd []Present []Absent Lungs: [x]Clear LIMITED []Crackles []Wheezes []Rhonchi Respiratory effort [x]Labored HYPERVENTILAZTING []Non-Labored Heart: Rate []Regular []Irregular [x]Tachycardia []Bradycardia Rhythm [x]Regular []Irregular Murmur []Present [x]Absent Peripheral Edema [x]Present []Absent Abdomen: []Soft Bowel Sounds []Present []Absent []Diminished []Tender []Non-Tender []Distended []Non-distended Hernia []Present []Absent Organomegaly []Present []Absent []Unable to assess due to size []Scar Extremities: LE Grossly edema, with multiple wounds Cyanosis []Present [x]Absent KIM ([x]RUE []RLE [x]LUE []LLE) Neurologic: SELDOVIA []Yes []No Corneal reflexes []Present []Absent Plantar reflexes []Up []Down []Absent Withdraws to tactile []Yes []No Follows Commands [x]Yes intermittently []No []Unresponsive to verbal []Cranial nerves grossly intact []Sensation grossly intact Psych: Alert []yes [x]no but responds to voice Oriented []x0 [x]x1 []x2 []x3 Affect []Normal []Flat []Agitated []Anxious []Calm []Sedated []NAD Assessment/Plan 1. Encephalopathy: Metabolic sec to Uremia, suspected sepsis 2. COLETTE: profound, 3. Metabolic Acidemia; 4. Sepsis/UTI 5. PARAMJIT 6. Elevated Lipase P: Resuscitate-IVF, vasoactive meds, sodium bicarbonate, central line and art line NIV Renal consult Panculture, viral panel, and empiric atbx Full Code Start time Hours, stop time Hours. Excluding procedures, the total critical care time caring for this patient with life threatening, unstable organ failure, including direct patient contact, review of medical record, management of life support systems, review of data including imaging and labs, discussions with other team members, patient's family and physicians at least 50 minutes so far today. documented in this encounter Assessments Diagnosis Wound cellulitis Cellulitis and abscess of unspecified site Hypovolemic shock (HCC) Other shock without mention of trauma Acute renal failure (ARF) (HCC) Acute kidney failure, unspecified Metabolic acidosis Acidosis Hypokalemia Hypopotassemia Hypocalcemia A-fib (HCC) Atrial fibrillation Anxiety Anxiety state, unspecified Depression Depressive disorder, not elsewhere classified Bipolar disorder, in partial remission, most recent episode depressed (HCC) Bipolar I disorder, most recent episode (or current) depressed, in partial or unspecified remission Advance Directives No Advanced Directives Records FoundDocuments on File Type Date Recorded Patient Director E Learning Expl anation Advance Directives and Living Will Power of Graining Machine Operator Latest Code Status on File Code Status Date Activated Date Inactivated Comments Full Code 12/14/2019 10:27 AM Documents on File Type Date Recorded Patient Director E Learning Expl anation ACP-Advance Directive ACP-Power of Graining Machine Operator Latest Code Status on File Code Status Date Activated Date Inactivated Comments Full Code 12/14/2019 10:27 AM 12/20/2019 10:59 PM Summary Purpose Family History No Family History Records FoundNo Family History Records FoundNo Family History Records FoundNo Family History Records FoundNo Family History Records Found No data available for this section No Family History Records FoundNo Family History Records Found Additional Source Comments Reason for Visit (unrecogniz ed section and content) Reason Comments Reason Comments Radiology NM Specialty Diagnoses / Procedures Referred By Contac t Referred To Contact MOLECULAR & FUNCTIONAL IMAGING Diagnoses Other chest pain Procedures NM CARDIAC PERF STRESS/PHARM MYOCARDIAL SPECT MULTIPLE STUDIES Julio C Morrissey MD [address] [place] [address] Molecular & Functional Imaging [address] [place] [address] Referral ID Status Reason Start Date Expiration Date V isits Requested Visits Authorized [id number] Closed Auto-Generate d Referral 10/15/2022 11/15/2022 2 2 Reason Comments Patient Question INFORMATION SOURCE (unrecogn ized section and content) DATE CREATED AUTHOR 12/14/2020 [facility] DATE CREATED AUTHOR AUTHOR'S ORGANIZ ATION 09/21/2021 [facility] DATE CREATED AUTHOR AUTHOR'S ORGANIZ ATION 01/28/2023 [facility] DATE CREATED AUTHOR AUTHOR'S ORGANIZ ATION 06/02/2023 [facility] DATE CREATED AUTHOR AUTHOR'S ORGANIZ ATION 08/10/2023 [facility] DATE CREATED AUTHOR AUTHOR'S ORGANIZ ATION 01/11/2024 [facility] ([place] DATE CREATED AUTHOR AUTHOR'S ORGANIZ ATION 06/16/2024 [facility] Care Teams (unrecognized sec tion and content) Prepress Stripper Relationship Specialty Start Date End Date Dina Wade MD PCP - General Family Medicine 01/11/17 [employer] Relationship Specialty Start Date End Date Eliane Gonsalez MD PCP - General Internal Medicine 09/10/20 [employer]pper Relationship Specialty Start Date End Date Eliane Gonsalez MD PCP - General Internal Medicine 09/10/20 Prep[employer]pper Relationship Specialty Start Date End Date Eliane Gonsalez MD PCP - General Internal Medicine 09/10/20 Source Comments (unrecognize d section and content) In the event this informatio n is protected by the Federal Confidentiality of Alcohol and Drug Abuse Patient Records regulations: The Federal rules restrict any use of the information to criminally investigate or prosecute any alcohol or drug abuse patient.[facility] the event this information is protected by the Federal Confidentiality of Alcohol and Drug Abuse Patient Records regulations: The Federal rules restrict any use of the information to criminally investigate or prosecute any alcohol or drug abuse patient.[facility] the event this information is protected by the Federal Confidentiality of Alcohol and Drug Abuse Patient Records regulations: The Federal rules restrict any use of the information to criminally investigate or prosecute any alcohol or drug abuse patient.[facility] FOR RECORDS PERTAINING TO PATIENTS WHO ARE OR HAVE BEEN ENROLLED IN A CHEMICAL DEPENDENCY/SUBSTANCEABUSE PROGRAM, SOME INFORMATION MAY BE OMITTED. This clinical summary was aggregated from multiple sources. Caution should be exercised in using it in the provision of clinical care. This summary normalizes information from multiple sources, and as a consequence, information in this document may materially change the coding, format and clinical context of patient data. In addition, data may be omitted in some cases. CLINICAL DECISIONS SHOULD BE BASED ON THE PRIMARY CLINICAL RECORDS. [facility] [employer] [facility] [facility]. provides no warranty or guarantee of the accuracy or completeness of information in this document.
[2024-07-25] MEDS: DiphenhydrAMINE 50 MG/ML Syringe 25 MG IV (22:30)
[2024-07-25] MEDS: Metoclopramide 10 MG/2 ML Vial IV (22:31)
[2024-07-25] MEDS: dexAMETHasone 10 MG/ML Vial IV (22:31)
[2024-07-25 22:35] LABS: Absolute Lymphocyte Count 2.48 X10^3/uL (0.83-4.51); Absolute Neutrophil Count 4.4 X10^3/uL (2.0-7.7); Basophil# 0.07 X10^3/uL; Basophil% 0.9 % (0-1); Eosinophil# 0.38 X10^3/uL; Eosinophils% 4.8 % (0-5); Hematocrit 34.2 % (37-47); Hemoglobin 10.9 g/dL (12.0-15.0); Lymphocyte # 2.48 X10^3/ul (0.83-4.51); Lymphocyte % 31.3 % (19-41); Mean Corp Hgb Conc 31.9 g/dL (32-36); Mean Corpuscular Hgb 30.3 pg (27.0-32.0); Mean Platelet Vol. 11.9 fl (6.2-12.0); Monocyte# 0.54 X10^3/uL; Monocyte% 6.8 % (0-10); NRBC Flagged by Analyzer 0 % (0-5); Neutrophil # 4.37 X10^3/uL (2.7-7.7); Neutrophil % 55.1 % (47-70); Platelet Count 205 K/mm3 (150-450); RBC Distribution Width CV 16.7 % (11.6-14.6); RBC Distribution Width SD 58.5 fl (35.1-43.9); White Blood Count 7.9 K/mm3 (4.4-11.0)
--- NOTE | 2024-07-25 22:55 | RAD_ITS ---
EXAM: XR CHEST, 1 VIEW CLINICAL INDICATION: weakness TECHNIQUE: Frontal view of the chest. COMPARISON: May 07, 2017 FINDINGS: LUNGS AND PLEURAL SPACES: Subtle patchy opacities involving the central left lung (suprahilar/perihilar/infrahilar). Low lung volumes limits assessment. Right lung is clear. No pneumothorax. No effusion. HEART: Unremarkable. Cardiac silhouette not enlarged. MEDIASTINUM: Central airways and mediastinal contour are unremarkable. BONES/JOINTS: Unremarkable. No acute fracture. SOFT TISSUES: Unremarkable. RAD/Chest 1 View (Portable) IMPRESSION: Suspected pneumonia involving the central left lung. Electronically Signed: Danie Tiwari MD at 23:49 EDT ,
[2024-07-25 23:00] VITALS: BP 126/86; PULSE 55; RESP 16; O2SAT 95
[2024-07-25 23:18] LABS: AST(SGOT) 26 U/L (15-37); Alanine Aminotransfer ALT/SGPT 44 U/L (13-56); Albumin, Serum 3.1 g/dL (3.2-5.0); Alkaline Phosphatase 95 U/L (45-117); Anion Gap 3 (5-15); BUN 17 mg/dL (7-18); BUN/Creat Ratio 22.9 RATIO (10-20); Calcium,Total 8.4 mg/dL (8.5-10.1); Chloride 113 mmol/L (98-107); Creatinine, Serum 0.74 mg/dL (0.55-1.02); EST Glomerular Filtration Rate 87 mL/min (>60); Est Glom Filt Rate - Afr Amer 105 mL/min (>60); Estimated Creatinine Clearance 166.42 ml/min; Globulin 3.3 g/dL (2.2-4.2); Glucose 83 mg/dL (74-106); Magnesium 2.5 mg/dL (1.6-2.6); Potassium 3.5 mmol/L (3.5-5.1); Protein, Total 6.4 g/dL (6.4-8.2); Sodium Level 144 mmol/L (136-145)
[2024-07-25 23:32] LABS: Mucous, Urine 0 SEEN /hpf (<or=2+); Red Blood Cells-Urine 0 SEEN /hpf (0-5); Squamous Epithelial Cells - UA 0 SEEN /hpf (5-10)
[2024-07-25 23:34] LABS: Color, Urine Yellow (Yellow); Glucose, Dipstick Normal (Normal); Ketone-Dipstick Negative (Negative); Leukocyte Esterase-Dipstick 100 /ul (Negative); Nitrite-Dipstick Negative (Negative); Occult Blood-Urine Negative /ul (Negative); Protein-Dipstick Negative (Negative); Specific Gravity, Urine 1.015 (1.002-1.030); Urine Bilirubin Dipstick Negative (Negative); Urine Clarity Sl. Cloudy (Clear); Urine Urobilinogen Normal (Normal)
[2024-07-25] MEDS: Ipratropium/Albuterol Sulfate 3 ML AMPUL.NEB INHALATION (23:44)
[2024-07-25 23:45] VITALS: PULSE 60; RESP 14
[2024-07-25 23:50] LABS: Bacteria RARE /hpf (None Seen); White Blood Cells 0-5 SEEN /hpf (0-5)
[2024-07-26] VITALS (7 sets, daily range): BP systolic 136–145; BP diastolic 84–88; PULSE 52–56; RESP 11–18; TEMP 36.6; O2SAT 94–97
--- NOTE | 2024-07-26 01:54 | EDS_ITS ---
HPI History of Present Illness Chief Complaint: Alt LOC Informant: patient, EMS and SNF Narrative Narrative: Patient is a 54-year-old female from the half-way with history of bipolar disorder hypothyroidism obstructive sleep apnea hypertension hyperlipidemia. Peripherally the patient began complaining of a headache today and then would not speak to people at the half-way and there was concern that she was having altered mental status or strokelike symptoms and was sent to the hospital for evaluation [facility] Medical History (Updated 07/28/24 @ 22:[address] Danie Olea, DO) History of ESBL E. coli infection CKD (chronic kidney disease), stage III Anxiety and depression HLD (hyperlipidemia) HTN (hypertension) PAF (paroxysmal atrial fibrillation) Bilateral lower extremity edema Morbid obesity Sacroiliitis Home Medications ?Medication ?Instructions ?Recorded ?Last Taken ?Type apixaban 5 mg tablet (Eliquis) 5 mg PO BID AFIB 05/07/17 07/21/24 History omeprazole 20 mg capsule,delayed 20 mg PO DAILY GERD 05/07/17 07/21/24 History release amlodipine 10 mg tablet 10 mg PO QHS BP 11/10/18 07/21/24 History acetaminophen 325 mg tablet 650 mg PO Q4H PRN fever or pain 07/21/24 07/19/24 History atorvastatin 10 mg tablet 10 mg PO QHS 07/21/24 07/20/24 History azelastine 137 mcg (0.1 %) nasal 1 spray intranasal Q12H 07/21/24 07/21/24 History spray buspirone 15 mg tablet 15 mg PO TID ANXIETY 07/21/24 07/21/24 History clonazepam 0.5 mg tablet 0.5 mg PO QHS 07/21/24 07/20/24 History escitalopram oxalate 10 mg tablet 10 mg PO DAILY 07/21/24 07/21/24 History escitalopram oxalate 5 mg tablet 5 mg PO DAILY 07/21/24 07/21/24 History furosemide 20 mg tablet 20 mg PO DAILY 07/21/24 07/21/24 History gabapentin 600 mg tablet 600 mg PO BID 07/21/24 07/21/24 History levocetirizine 5 mg tablet 5 mg PO QHS 07/21/24 07/20/24 History lisinopril 10 mg tablet 10 mg PO DAILY 07/21/24 07/21/24 History loperamide 2 mg tablet 2 mg PO Q12H PRN IBS 07/21/24 07/11/24 History (Anti-Diarrheal (loperamide)) methocarbamol 750 mg tablet 750 mg PO Q12H PRN muscle pain 07/21/24 07/20/24 H istory multivitamin (Daily Multi-Vitamin 1 tab PO DAILY 07/21/24 07/21/24 History tablet) ondansetron 4 mg disintegrating 4 mg PO Q8H PRN Nausea 07/21/24 Unknown History tablet prazosin 1 mg capsule 2 mg PO QHS 07/21/24 07/20/24 History quetiapine 100 mg tablet 100 mg PO DAILY 07/21/24 07/20/24 History sotalol 120 mg tablet 120 mg PO BID 07/21/24 07/21/24 History tramadol 50 mg tablet 100 mg (2 x 50 mg) PO Q8H PRN 07/23/24 Unknown Rx headache #6 tabs acetaminophen 650 mg rectal 650 mg IA Q4H PRN fever or pain 07/25/24 Unknown History suppository aluminum-magnesium hydroxide 200 5 ml PO Q4H PRN dyspepsia 07/25/24 Unknown History mg-200 mg/5 mL oral suspension bisacodyl 10 mg rectal suppository 10 mg IA DAILY PRN constipation 07/25/24 Unknown History guaifenesin 100 mg/5 mL oral 200 mg PO Q4H PRN cough 07/25/24 Unknown History liquid (Adult Tussin Chest Congestion) magnesium hydroxide 400 mg/5 mL 30 ml PO DAILY PRN constipation 07/25/24 Unknown History oral suspension (Dulcolax (magnesium hydroxide)) polyvinyl alcohol 1.4 % eye drops 2 drp EACH EYE BID 07/25/24 Unknown History (Artificial Tears (polyvinyl alcohol)) sodium phosphates 19 gram-7 118 ml IA DAILY PRN constipation 07/25/24 Unknown History gram/118 mL enema (Enema) azithromycin 250 mg tablet See Rx Instructions PO .COMPLEX #6 07/26/24 Unknown Rx (Zithromax) tabs Allergy/AdvReac Type Severity Reaction Status Date / Time amoxicillin trihydrate (From Allergy Hives Verified 07/25/24 20:49 Augmentin) baclofen Allergy Unknown Verified 07/25/24 20:49 gabapentin Allergy Unknown Verified 07/25/24 20:49 Iodinated Contrast Media Allergy Anaphylaxis Verified 07/25/24 20:49 (CONTRASTS) potassium clavulanate (From Allergy Hives Verified 07/25/24 20:49 Augmentin) shrimp Allergy Unknown Verified 07/25/24 20:49 valerian AdvReac NEEDS Verified 07/25/24 20:49 FOLLOW-UP Family History Mother Hypertension Father Heart disease Surgical History History of hysterectomy History of appendectomy History of cholecystectomy History of gastric bypass Status post incision and drainage Social History Smoking Status: Smoker, status unknown tobacco type: e-cigarettes ROS ROS ED ROS Narrative Review of systems is unobtainable secondary to patient noncompliance Review of Systems ROS Unobtainable: due to mental condition EXAM Physical Exam Const Vital Signs: 07/25/24 20:48 07/25/24 21:48 07/25/24 22:00 Temperature 98.1 F Temperature Source Oral Pulse Rate 57 L 58 L 57 L Respiratory Rate 19 H 14 14 Respiratory Pattern Blood Pressure 159/85 H 148/79 H 148/79 H Blood Pressure Mean 109 102 102 Pulse Ox 97 95 96 Oxygen Delivery Method Room Air Room Air Room Air 07/25/24 23:00 07/25/24 23:45 07/26/24 00:00 Temperature Temperature Source Pulse Rate 55 L 60 54 L Respiratory Rate 16 14 12 Respiratory Pattern Normal Blood Pressure 126/86 H 136/86 H Blood Pressure Mean 99 102 Pulse Ox 95 95 Oxygen Delivery Method Room Air Room Air 07/26/24 01:00 Temperature Temperature Source Pulse Rate 56 L Respiratory Rate 11 L Respiratory Pattern Blood Pressure 137/86 H Blood Pressure Mean 103 Pulse Ox 94 Oxygen Delivery Method Room Air Positive well nourished, well developed and obese General Appearance ED: well developed; Negative for pallor Nutritional Appearance: obese HEENT Reports moist mucous membranes HEENT Narrative: No tongue or lip swelling no oral lesions no airway edema or compromise Eyes PERRL and EOMs intact bilaterally General Eye ED: Negative for scleral icterus Neck supple Neck Narrative: No nuchal rigidity or meningeal signs Chest Wall palpation of chest normal Resp normal respiratory effort and clear to auscultation bilaterally Resp Narrative: Breath sounds are diminished throughout but overall clear to auscultation without signs of respiratory distress Cardio regular rate and regular rhythm Rate: other Other Details: Radial and carotid pulses are equal and symmetric GI normal to inspection, nondistended, normoactive bowel sounds, non-tender, non- distended and no masses GI Narrative: No voluntary guarding or rigidity or pulsatile mass Auscultation: normoactive bowel sounds Palpation: soft Extremity Extremity Narrative: Diffuse nonpitting edema to the lower extremities bilaterally with negative Homans' sign bilaterally Neuro CN's II-XII intact bilaterally and no sensory deficits noted Neuro Narrative: GCS of 14 Cranial nerves II through XII are grossly intact without focal neurologic deficit No pronator drift or dysmetria Please note that the patient is refusing to speak but will follow commands and does not have any focal neurologic deficit Sensorium / Orientation: alert Motor Exam: strength 5/5 throughout Psych Psych Narrative: Patient has a flat affect Skin no rashes or lesions noted Skin Narrative: No overlying soft tissue changes to suggest trauma or infection General Skin Exam: Negative for jaundice or pallor MDM MDM MDM Narrative Medical decision making narrative: Patient arrived to the ER hypertensive but has a past medical history of this and otherwise with stable vitals. She was refusing to speak but could follow all commands and had no focal deficits indicating that this is a mental aspect causing her to not speak and not a true acute stroke CVA. Therefore there is no need to activate an acute stroke alert. As the patient had reported a headache there is concern for underlying spontaneous subdural or epidural hematoma or even a potential infectious process making her feel this way such as UTI or pneumonia. There is also concern for potential electrolyte abnormality. Therefore basic labs were obtained with a chest x-ray and head CT. Head CT revealed no signs of acute changes such as bleed or mass. Labs revealed no clinically significant abnormalities such as acute kidney injury or severe hypokalemia. Urine sample revealed no signs of infection either. The patient's chest x-ray questioned a developing pneumonia. She does not have a cough or shortness of breath she is not in respiratory distress but as this could be a cause for her symptoms I do feel is necessary to put her on a round of antibiotics. However at this time after receiving IV Toradol Benadryl Reglan and Decadron the patient's had resolution of her headache she is talking and able to ambulate and therefore there is no need to admit her to the hospital and she is otherwise safe to return to the half-way. Lab Data Attestation: I reviewed the patient's lab results. Labs: Laboratory Results - last 24 hr 07/25/24 07/25/24 20:50 23:28 WBC 7.9 RBC 3.60 L Hgb 10.9 L Hct 34.2 L MCV 95.0 MCH 30.3 MCHC 31.9 L RDW Std Deviation 58.5 H RDW Coeff of Jaylen 16.7 H Plt Count 205 MPV 11.9 Immature Gran % (Auto) 1.100 H Neut % (Auto) 55.1 Lymph % (Auto) 31.3 [place] % (Auto) 6.8 Eos % (Auto) 4.8 Baso % (Auto) 0.9 Absolute Neuts (auto) 4.4 Absolute Lymphs (auto) 2.48 Nucleated RBC % 0 Sodium 144 Potassium 3.5 Chloride 113 H Carbon Dioxide 28.0 Anion Gap 3 L BUN 17 Creatinine 0.74 Estim Creat Clear Calc 166.42 Est GFR (MDRD) Af Amer 105 Est GFR (MDRD) Non-Af 87 BUN/Creatinine Ratio 22.9 H Glucose 83 Calcium 8.4 L Magnesium 2.5 Total Bilirubin 0.20 Direct Bilirubin 0.10 AST 26 ALT 44 Alkaline Phosphatase 95 Total Protein 6.4 Albumin 3.1 L Globulin 3.3 TSH 2.610 Urine Color Yellow Urine Clarity Sl. Cloudy Urine pH 6.0 Ur Specific [place] 1.015 Urine Protein Negative Urine Glucose (UA) Normal Urine Ketones Negative Urine Occult Blood Negative Urine Nitrite Negative Urine Bilirubin Negative Urine Urobilinogen Normal Ur Leukocyte Esterase 100 H Urine RBC 0 SEEN Urine WBC 0-5 SEEN Ur Squamous Epith Cells 0 SEEN Urine Bacteria RARE Urine Mucus 0 SEEN Radiography Diagnostic Testing: Clinical Impression(s) from Imaging Studies Brain CT 07/25/24 22:22 IMPRESSION: Negative head/brain CT without intravenous contrast. AIDOC was utilized to assist in identifying pertinent positive findings. Electronically Signed: Danie Tiwari MD at 0:20 EDT , Chest X-Ray 07/25/24 22:55 IMPRESSION: Suspected pneumonia involving the central left lung. Electronically Signed: Danie Tiwari MD at 23:49 EDT , Chest x-ray as interpreted by the emergency medicine physician reveals haziness in the left lung base concerning for developing pneumonia Discharge Plan Triage Chief Complaint: Alt LOC ED Provider: Danie Olea Dx/Rx/DC Orders Clinical Impression: Cephalgia, Viral syndrome, HTN (hypertension), HLD (hyperlipidemia), Bipolar 1 disorder Instructions: Understanding Headache Pain, ED Viral Syndrome (Adult) Prescriptions: New azithromycin [Zithromax] 250 mg tablet See Rx Instructions .ROUTE .COMPLEX Qty: 6 0RF Rx Instructions: For 250 mg dose pack: take 500 mg today (day 1), then 250 mg for 4 days (days 2-5) No Action omeprazole 20 MG capsule 20 mg PO DAILY Eliquis 5 MG tablet 5 mg PO BID amlodipine 10 MG tablet 10 mg PO QHS atorvastatin 10 mg tablet 10 mg PO QHS clonazepam 0.5 mg tablet 0.5 mg PO QHS furosemide 20 mg tablet 20 mg PO DAILY levocetirizine 5 mg tablet 5 mg PO QHS escitalopram oxalate 10 mg tablet 10 mg PO DAILY Patient Comments: GIVE 1 10MG TABLET AND 1 5MG TABLET TO EQUAL TOTAL DOSE OF 15MG IN THE MORNING escitalopram oxalate 5 mg tablet 5 mg PO DAILY Patient Comments: GIVE 1 10MG TABLET AND 1 5MG TABLET TO EQUAL TOTAL DOSE OF 15MG IN THE MORNING lisinopril 10 mg tablet 10 mg PO DAILY multivitamin [Daily Multi-Vitamin] Tablet 1 tab PO DAILY prazosin 1 mg capsule 2 mg PO QHS quetiapine 100 mg tablet 100 mg PO DAILY azelastine 137 mcg (0.1 %) spray,non-aerosol 1 spray INTRANASAL Q12H Rx Instructions: INSTILL 1 SPRAY INTO EACH NOSTRIL gabapentin 600 mg tablet 600 mg PO BID sotalol 120 mg tablet 120 mg PO BID buspirone 15 mg tablet 15 mg PO TID loperamide [Anti-Diarrheal (loperamide)] 2 mg tablet 2 mg PO Q12H PRN (Reason: IBS) methocarbamol 750 mg tablet 750 mg PO Q12H PRN (Reason: muscle pain) ondansetron 4 MG tablet 4 mg PO Q8H PRN (Reason: Nausea) acetaminophen 325 mg tablet 650 mg PO Q4H PRN (Reason: fever or pain) tramadol 50 mg Tablet 100 mg PO Q8H PRN (Reason: headache) Qty: 6 0RF magnesium hydroxide [Dulcolax (magnesium hydroxide)] 400 mg/5 mL suspension 30 ml PO DAILY PRN (Reason: constipation) guaifenesin [Adult Tussin Chest Congestion] 100 mg/5 mL liquid 200 mg PO Q4H PRN (Reason: cough) Enema 19-7 gram/118 mL enema 118 ml IA DAILY PRN (Reason: constipation) bisacodyl 10 mg suppository 10 mg IA DAILY PRN (Reason: constipation) polyvinyl alcohol [Artificial Tears (polyvin alc)] 1.4 % drops 2 drp EACH EYE BID aluminum-magnesium hydroxide 200-200 mg/5 mL suspension 5 ml PO Q4H PRN (Reason: dyspepsia) acetaminophen 650 mg suppository 650 mg IA Q4H PRN (Reason: fever or pain) Primary Care Provider: Ashwini Oconnell Referrals: Ashwini Oconnell MD [Primary Care Provider] - Activity Restrictions/Additional Instructions: Your x-ray questions a developing pneumonia however your head CT and the remainder of your labs revealed no clinically significant findings. This is most likely viral in nature but as your COVID influenza and RSV swab was negative please take the prescribed antibiotic to cover you for the abnormal finding on your x-ray and return to the ER should you have any further concerns Print Language: Albanian Disposition Disposition: Home, Self Care Discharge Date/Time: 07/26/24 05:38
[2024-07-26] MEDS: Azithromycin 250 MG Tablet 500 MG PO (02:15)
== END 2024-07-26 05:38 | disposition home or self-care (01) ==
PROVIDERS: Emergency Provider Emergency Medicine; PCP Internal Medicine; Visit Provider Emergency Medicine
DX: R51.9 Headache, unspecified (principal); F31.9 Bipolar disorder, unspecified; I48.0 Paroxysmal atrial fibrillation; E66.01 Morbid (severe) obesity due to excess calories; N18.30 Chronic kidney disease, stage 3 unspecified; B34.9 Viral infection, unspecified; R91.8 Other nonspecific abnormal finding of lung field; F17.290 Nicotine dependence, other tobacco product, uncomplicated; I12.9 Hypertensive chronic kidney disease with stage 1 through stage 4 chronic kidney disease, or unspecified chronic kidney disease; F41.9 Anxiety disorder, unspecified; F32.A Depression, unspecified; E78.5 Hyperlipidemia, unspecified; G47.33 Obstructive sleep apnea (adult) (pediatric); Z88.0 Allergy status to penicillin; Z88.1 Allergy status to other antibiotic agents; Z86.19 Personal history of other infectious and parasitic diseases; Z90.49 Acquired absence of other specified parts of digestive tract; Z98.84 Bariatric surgery status; Z79.01 Long term (current) use of anticoagulants; Z79.899 Other long term (current) drug therapy; Z91.199 Patient's noncompliance with other medical treatment and regimen due to unspecified reason
CPT/HCPCS: 70450; 71045; 80048; 80076; 81001; 83735; 84443; 85025; 87631; 94640; 96374; 96375; 99285; A4216

== ENCOUNTER → 2024-07-31 | Outpatient (REF) | payer MEDICARE, MEDICAID, SELFPAY ==
[2024-07-31 07:58] LABS: Absolute Lymphocyte Count 1.91 X10^3/uL (0.83-4.51); Absolute Neutrophil Count 2.3 X10^3/uL (2.0-7.7); Basophil# 0.08 X10^3/uL; Basophil% 1.6 % (0-1); Eosinophil# 0.28 X10^3/uL; Eosinophils% 5.6 % (0-5); Hematocrit 32.7 % (37-47); Hemoglobin 10.5 g/dL (12.0-15.0); Lymphocyte # 1.91 X10^3/ul (0.83-4.51); Mean Corp Hgb Conc 32.1 g/dL (32-36); Mean Corpuscular Hgb 30.3 pg (27.0-32.0); Mean Corpuscular Volume 94.5 fL (81-99); Mean Platelet Vol. 12.1 fl (6.2-12.0); NRBC Flagged by Analyzer 0 % (0-5); Neutrophil % 45.8 % (47-70); Platelet Count 202 K/mm3 (150-450); RBC Distribution Width CV 16.7 % (11.6-14.6); RBC Distribution Width SD 58.3 fl (35.1-43.9); Red Blood Count 3.46 M/mm3 (4.2-5.4)
[2024-07-31 08:14] LABS: Anion Gap 6 (5-15); BUN 7 mg/dL (7-18); BUN/Creat Ratio 12.5 RATIO (10-20); Calcium,Total 8.4 mg/dL (8.5-10.1); Chloride 112 mmol/L (98-107); Creatinine, Serum 0.56 mg/dL (0.55-1.02); EST Glomerular Filtration Rate 120 mL/min (>60); Est Glom Filt Rate - Afr Amer 145 mL/min (>60); Glucose 84 mg/dL (74-106); Magnesium 2.5 mg/dL (1.6-2.6); Potassium 3.8 mmol/L (3.5-5.1); Sodium Level 143 mmol/L (136-145)
== END ==
LOC: OLS.SW 04:00
PROVIDERS: PCP Internal Medicine; Visit Provider Internal Medicine
DX: I48.91 Unspecified atrial fibrillation (principal); E78.5 Hyperlipidemia, unspecified; E03.9 Hypothyroidism, unspecified
CPT/HCPCS: 36415; 80048; 83735; 85025

== ENCOUNTER → 2024-08-09 | Outpatient (REF) | payer MEDICARE, MEDICAID, SELFPAY ==
[2024-08-09 08:29] LABS: Vitamin B12 200 pg/mL (211-911)
== END ==
LOC: OLS.SW 05:00
PROVIDERS: PCP Internal Medicine; Visit Provider Internal Medicine
DX: Z79.899 Other long term (current) drug therapy (principal)
CPT/HCPCS: 36415; 82607

== ENCOUNTER → 2024-08-14 | Outpatient (REF) | payer MEDICARE, MEDICAID, SELFPAY ==
[2024-08-14 08:14] LABS: Absolute Lymphocyte Count 1.65 X10^3/uL (0.83-4.51); Absolute Neutrophil Count 1.9 X10^3/uL (2.0-7.7); Basophil# 0.04 X10^3/uL; Eosinophil# 0.19 X10^3/uL; Eosinophils% 4.6 % (0-5); Hematocrit 31.3 % (37-47); Lymphocyte # 1.65 X10^3/ul (0.83-4.51); Lymphocyte % 39.7 % (19-41); Mean Corp Hgb Conc 31.9 g/dL (32-36); Mean Corpuscular Hgb 30.3 pg (27.0-32.0); Mean Corpuscular Volume 94.8 fL (81-99); Mean Platelet Vol. 11.9 fl (6.2-12.0); Monocyte# 0.39 X10^3/uL; Monocyte% 9.4 % (0-10); NRBC Flagged by Analyzer 0 % (0-5); Neutrophil # 1.87 X10^3/uL (2.7-7.7); Neutrophil % 44.8 % (47-70); Platelet Count 233 K/mm3 (150-450); RBC Distribution Width CV 16.2 % (11.6-14.6); White Blood Count 4.2 K/mm3 (4.4-11.0)
[2024-08-14 08:44] LABS: Anion Gap 4 (5-15); BUN 11 mg/dL (7-18); BUN/Creat Ratio 15.6 RATIO (10-20); Calcium,Total 8.5 mg/dL (8.5-10.1); Chloride 112 mmol/L (98-107); EST Glomerular Filtration Rate 92 mL/min (>60); Est Glom Filt Rate - Afr Amer 112 mL/min (>60); Glucose 81 mg/dL (74-106); Sodium Level 141 mmol/L (136-145)
== END ==
LOC: OLS.SW 05:00
PROVIDERS: PCP Internal Medicine; Visit Provider Internal Medicine
DX: R53.83 Other fatigue (principal)
CPT/HCPCS: 36415; 80048; 85025

== ENCOUNTER → 2024-09-18 | Outpatient (REF) | payer MEDICARE, MEDICAID, SELFPAY ==
[2024-09-18 08:38] LABS: Hematocrit 37.6 % (37-47); Hemoglobin 11.9 g/dL (12.0-15.0); Mean Corp Hgb Conc 31.6 g/dL (32-36); Mean Corpuscular Hgb 29.9 pg (27.0-32.0); Mean Corpuscular Volume 94.5 fL (81-99); Mean Platelet Vol. 11.9 fl (6.2-12.0); Platelet Count 232 K/mm3 (150-450); RBC Distribution Width CV 16.5 % (11.6-14.6); RBC Distribution Width SD 57.4 fl (35.1-43.9); Red Blood Count 3.98 M/mm3 (4.2-5.4); White Blood Count 4.6 K/mm3 (4.4-11.0)
[2024-09-18 09:40] LABS: ALB/GLOB Ratio 0.9 RATIO (0.9-2.4); AST(SGOT) 28 U/L (15-37); Alanine Aminotransfer ALT/SGPT 42 U/L (13-56); Albumin, Serum 3.3 g/dL (3.2-5.0); Alkaline Phosphatase 198 U/L (45-117); Anion Gap 6 (5-15); BUN 10 mg/dL (7-18); BUN/Creat Ratio 13.7 RATIO (10-20); Calcium,Total 8.8 mg/dL (8.5-10.1); Chloride 110 mmol/L (98-107); Creatinine, Serum 0.73 mg/dL (0.55-1.02); EST Glomerular Filtration Rate 89 mL/min (>60); Est Glom Filt Rate - Afr Amer 107 mL/min (>60); Globulin 3.6 g/dL (2.2-4.2); Glucose 87 mg/dL (74-106); Potassium 3.5 mmol/L (3.5-5.1); Protein, Total 6.9 g/dL (6.4-8.2); Sodium Level 139 mmol/L (136-145)
== END ==
LOC: OLS.SW 05:00
PROVIDERS: PCP Internal Medicine; Visit Provider Internal Medicine
DX: I48.91 Unspecified atrial fibrillation (principal)
CPT/HCPCS: 36415; 80053; 85027

== ENCOUNTER 2024-10-10 11:52 | Emergency (ER) | payer MEDICARE, MEDICAID, SELFPAY ==
[2024-10-10] VITALS (14 sets, daily range): BP systolic 111–139; BP diastolic 56–108; PULSE 52–83; RESP 16–19; TEMP 35.6; O2SAT 96–100; BMI 74.2
--- NOTE | 2024-10-10 12:54 | EKG12_ITS ---
Test Reason : CP Blood Pressure : */* mmHG Vent. Rate : 53 BPM Atrial Rate : 53 BPM P-R Int : 142 ms QRS Dur : 88 ms QT Int : 462 ms P-R-T Axes : 40 13 19 degrees QTcB Int : 433 ms Sinus bradycardia Otherwise normal ECG Confirmed by Reynaldo England ([id number]), video news editor JIMI CHEN ([id number]) on 10/11/2024 8:26:56 AM Referred By: AK/ALBA Confirmed By: Reynaldo England
--- NOTE | 2024-10-10 12:57 | ED.VIS.CHEST ---
HPI History of Present Illness Chief Complaint: Chest Pain Narrative Narrative: 54-year-old female past medical history of atrial fibrillation on Eliquis presents via EMS with chest pressure and shortness of breath. She has had in the past. She states that she had a few years ago, and the gave her something in the ED that helped. She denies any exacerbating or alleviating factors. She states she has a lot of pressure in her midsternal chest. No nausea or vomiting, no diaphoresis. She has been compliant with her Eliquis. [facility] Medical History History of ESBL E. coli infection CKD (chronic kidney disease), stage III Anxiety and depression HLD (hyperlipidemia) HTN (hypertension) PAF (paroxysmal atrial fibrillation) Bilateral lower extremity edema Morbid obesity Sacroiliitis Home Medications ?Medication ?Instructions ?Recorded ?Last Taken ?Type apixaban 5 mg tablet (Eliquis) 5 mg PO BID AFIB 05/07/17 07/21/24 History amlodipine 10 mg tablet 10 mg PO QHS BP 11/10/18 07/21/24 History acetaminophen 325 mg tablet 650 mg PO Q4H PRN fever or pain 07/21/24 07/19/24 History atorvastatin 10 mg tablet 10 mg PO QHS 07/21/24 07/20/24 History azelastine 137 mcg (0.1 %) nasal 1 spray intranasal Q12H 07/21/24 07/21/24 History spray buspirone 15 mg tablet 15 mg PO TID ANXIETY 07/21/24 07/21/24 History clonazepam 0.5 mg tablet 0.5 mg PO QHS 07/21/24 07/20/24 History escitalopram oxalate 10 mg tablet 10 mg PO DAILY 07/21/24 07/21/24 History escitalopram oxalate 5 mg tablet 5 mg PO DAILY 07/21/24 07/21/24 History furosemide 20 mg tablet 20 mg PO DAILY 07/21/24 07/21/24 History gabapentin 600 mg tablet 600 mg PO BID 07/21/24 07/21/24 History levocetirizine 5 mg tablet 5 mg PO QHS 07/21/24 07/20/24 History lisinopril 10 mg tablet 10 mg PO DAILY 07/21/24 07/21/24 History loperamide 2 mg tablet 2 mg PO Q12H PRN IBS 07/21/24 07/11/24 History (Anti-Diarrheal (loperamide)) methocarbamol 750 mg tablet 750 mg PO Q6H PRN muscle pain 07/21/24 07/20/24 History multivitamin (Daily Multi-Vitamin 1 tab PO DAILY 07/21/24 07/21/24 History tablet) ondansetron 4 mg disintegrating 4 mg PO Q8H PRN Nausea 07/21/24 Unknown History tablet prazosin 1 mg capsule 2 mg PO QHS 07/21/24 07/20/24 History sotalol 120 mg tablet 120 mg PO BID 07/21/24 07/21/24 History acetaminophen 650 mg rectal [address] Q4H PRN fever or pain 07/25/24 Unknown History suppository aluminum-magnesium hydroxide 200 5 ml PO Q4H PRN dyspepsia 07/25/24 Unknown History mg-200 mg/5 mL oral suspension bisacodyl 10 mg rectal suppository [address] DAILY PRN constipation 07/25/24 Unknown History guaifenesin 100 mg/5 mL oral 200 mg PO Q4H PRN cough 07/25/24 Unknown History liquid (Adult Tussin Chest Congestion) magnesium hydroxide 400 mg/5 mL 30 ml PO DAILY PRN constipation 07/25/24 Unknown History oral suspension (Dulcolax (magnesium hydroxide)) polyvinyl alcohol 1.4 % eye drops 2 drp EACH EYE BID 07/25/24 Unknown History (Artificial Tears (polyvinyl alcohol)) sodium phosphates 19 gram-[address] DAILY PRN constipation 07/25/24 Unknown History gram/118 mL enema (Enema) azithromycin 250 mg tablet See Rx Instructions PO .COMPLEX #6 07/26/24 Unknown Rx (Zithromax) tabs albuterol sulfate 90 mcg/actuation 2 puff inhalation Q8H 10/10/24 Unknown History aerosol inhaler (Ventolin HFA) hydroxyzine pamoate 25 mg capsule 25 mg PO BID 10/10/24 Unknown History isosorbide mononitrate 20 mg tablet 60 mg PO DAILY 10/10/24 Unknown History melatonin 5 mg capsule 5 mg PO QHS 10/10/24 Unknown History potassium chloride 10 mEq 10 meq PO DAILY 10/10/24 Unknown History tablet,extended release topiramate 25 mg tablet (Topamax) 25 mg PO QHS 10/10/24 Unknown History tramadol 50 mg tablet 50 mg PO BID headache 10/10/24 Unknown History Allergy/AdvReac Type Severity Reaction Status Date / Time amoxicillin trihydrate (From Allergy Hives Verified 10/10/24 11:58 Augmentin) baclofen Allergy Unknown Verified 10/10/24 11:58 gabapentin Allergy Unknown Verified 10/10/24 11:58 Iodinated Contrast Media Allergy Anaphylaxis Verified 10/10/24 11:58 (CONTRASTS) potassium clavulanate (From Allergy Hives Verified 10/10/24 11:58 Augmentin) shrimp Allergy Unknown Verified 10/10/24 11:58 valerian AdvReac NEEDS Verified 10/10/24 11:58 FOLLOW-UP Family History Mother Hypertension Father Heart disease Surgical History History of hysterectomy History of appendectomy History of cholecystectomy History of gastric bypass Status post incision and drainage Social History Smoking Status: Former smoker ROS ROS ED ROS Narrative Constitutional: No fever, no chills. HEENT: No sore throat. No neck pain. No loss of vision. No rhinorrhea. Cardiovascular: Positive midsternal chest pressure/chest pain. No palpitations. No pedal edema. Respiratory: No cough, positive shortness of breath. Abdominal: No abdominal pain. No nausea. No vomiting. Genitourinary: No dysuria. No hematuria. Musculoskeletal: No myalgias. No arthralgias. Neurologic: No headaches. No dizziness. No lightheadedness. Skin: No rash. No change in color. Psychiatric: No depression. No anxiety. EXAM Physical Exam Narrative Exam Narrative: Afebrile. Vital signs noted. HEENT: Normocephalic. Atraumatic. PERRL, EOMI. Neck soft and supple. No point tenderness or step off. Cardiovascular: Positive bradycardia, no murmurs, rubs, or gallops appreciated. Respiratory: No tachypnea. Lungs clear to auscultation bilaterally. Gastrointestinal: Abdomen soft, obese, nontender, with normoactive bowel sounds. No rebound or guarding. Neurological: Awake. Alert. Nonfocal, nonlateralizing. Skin: No rash. Normal color. No pallor. Musculoskeletal: No pedal edema. Full range of motion extremities. Const Vital Signs: 10/10/24 11:53 10/10/24 11:56 10/10/24 12:42 Temperature 96.0 F L 96.0 F L Temperature Source Oral Oral Pulse Rate 56 L 54 L Respiratory Rate 18 18 Respiratory Effort Normal Blood Pressure 139/83 H 139/83 H Blood Pressure Mean 101 101 Pulse Ox 100 98 Oxygen Delivery Method Room Air Room Air 10/10/24 12:52 10/10/24 13:00 10/10/24 13:15 Temperature Temperature Source Pulse Rate 52 L 57 L Respiratory Rate 19 H Respiratory Effort Blood Pressure 129/70 H 131/79 H Blood Pressure Mean 89 96 Pulse Ox 99 100 Oxygen Delivery Method Room Air Room Air 10/10/24 14:00 Temperature Temperature Source Pulse Rate 53 L Respiratory Rate Respiratory Effort Blood Pressure 135/73 H Blood Pressure Mean 93 Pulse Ox Oxygen Delivery Method Heart Score History: Slightly/Non-Suspicious ECG: Normal Age: >45 - <65 years Risk Factors: 1 or 2 Risk Factors Score: 2 MDM MDM MDM Narrative Medical decision making narrative: Differential diagnosis includes but not limited to ACS versus pulmonary embolism versus pneumonia versus pneumothorax. I have very low suspicion for pulmonary embolism because she is bradycardic, satting normally, and is on Eliquis and has been compliant. I reviewed her prior EMR. She has received Toradol in the past. I do not feel narcotics are indicated. EKG was obtained and interpreted by myself independently as sinus bradycardia at 53 bpm without ectopy or acute ST changes. No STEMI. Chest pain workup was pursued. I do not feel that she requires a D-dimer. She is already on Eliquis. I reviewed her laboratory work and she has normal white count of 6.2 with hemoglobin stable at 10.8, platelet count normal at 227. Chloride is elevated at 114 which I think is nonspecific, BUN of 10 and creatinine 0.74 with sodium normal at 141 and potassium 4.9. Glucose normal at 81. Initial high-sensitivity troponin is 4. Chest x-ray in 1 view interpreted by myself independently shows no evidence of an acute process, no pneumonia, no pneumothorax. I reviewed the radiology report which confirms my independent interpretation. Initially, she was given Toradol 15 mg for analgesia. She complained that her chest pain was worsening. She was then given Tylenol. I do not feel that narcotic pain medication is indicated for her chest pain/pressure. After return of her initial laboratory studies and while waiting for her second troponin, she complained that her chest pressure was worsening. I do not feel she requires a CTA and I have very low suspicion for an aortic dissection because she has an appropriate blood pressure and the pain does not radiate to her back and there is no tearing sensation. Her vital signs remain normal, no tachycardia, no oxygen desaturation. Rather, I asked her if she had a hiatal hernia and if she has problems with anxiety, and in review of her medication list, she is on clonazepam and Vistaril. She will be given Ativan 1 mg intravenously as well as a GI cocktail as she awaits her second troponin. 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 Patient will be signed out to the oncoming physician, Dr. Vasquez to check the second troponin and make final disposition on this patient. She is in stable condition. History & Record Review Discussion w/independent historian: Patient Lab Data Attestation: I reviewed the patient's lab results. Labs: Laboratory Results - last 24 hr 10/10/24 13:20 WBC 6.2 RBC 3.67 L Hgb 10.8 L Hct 35.0 L MCV 95.4 MCH 29.4 MCHC 30.9 L RDW Std Deviation 55.6 H RDW Coeff of Jaylen 15.9 H Plt Count 227 MPV 11.6 Immature Gran % (Auto) 0.300 Neut % (Auto) 54.8 Lymph % (Auto) 33.1 Traill % (Auto) 7.1 Eos % (Auto) 3.4 Baso % (Auto) 1.3 H Absolute Neuts (auto) 3.4 Absolute Lymphs (auto) 2.04 Nucleated RBC % 0 Sodium 141 Potassium 4.9 Chloride 114 H Carbon Dioxide 25.0 Anion Gap 2 L BUN 10 Creatinine 0.74 Estim Creat Clear Calc 159.89 Est GFR (MDRD) Af Amer 105 Est GFR (MDRD) Non-Af 87 BUN/Creatinine Ratio 13.5 Glucose 81 Calcium 8.7 Troponin I High Sens 4 Radiography Chest X-Ray - ED: 1 View, Read by ED Physician and Read by Radiologist Diagnostic Testing: Clinical Impression(s) from Imaging Studies Chest X-Ray 10/10/24 13:15 IMPRESSION: No radiographic evidence of acute cardiopulmonary disease. Electronically Signed: Danie Tiwari MD at 14:21 EST Reading Location ID and State: [address] [place] [address] Tel , Service support , Discharge Plan Triage Chief Complaint: Chest Pain ED Provider: Yifan Victor Dx/Rx/DC Orders Prescriptions: No Action Eliquis 5 MG tablet 5 mg PO BID amlodipine 10 MG tablet 10 mg PO QHS atorvastatin 10 mg tablet 10 mg PO QHS clonazepam 0.5 mg tablet 0.5 mg PO QHS furosemide 20 mg tablet 20 mg PO DAILY levocetirizine 5 mg tablet 5 mg PO QHS escitalopram oxalate 10 mg tablet 10 mg PO DAILY Patient Comments: GIVE 1 10MG TABLET AND 1 5MG TABLET TO EQUAL TOTAL DOSE OF 15MG IN THE MORNING escitalopram oxalate 5 mg tablet 5 mg PO DAILY Patient Comments: GIVE 1 10MG TABLET AND 1 5MG TABLET TO EQUAL TOTAL DOSE OF 15MG IN THE MORNING lisinopril 10 mg tablet 10 mg PO DAILY multivitamin [Daily Multi-Vitamin] Tablet 1 tab PO DAILY prazosin 1 mg capsule 2 mg PO QHS azelastine 137 mcg (0.1 %) spray,non-aerosol 1 spray INTRANASAL Q12H Rx Instructions: INSTILL 1 SPRAY INTO EACH NOSTRIL gabapentin 600 mg tablet 600 mg PO BID sotalol 120 mg tablet 120 mg PO BID buspirone 15 mg tablet 15 mg PO TID loperamide [Anti-Diarrheal (loperamide)] 2 mg tablet 2 mg PO Q12H PRN (Reason: IBS) methocarbamol 750 mg tablet 750 mg PO Q6H PRN (Reason: muscle pain) ondansetron 4 MG tablet 4 mg PO Q8H PRN (Reason: Nausea) acetaminophen 325 mg tablet 650 mg PO Q4H PRN (Reason: fever or pain) magnesium hydroxide [Dulcolax (magnesium hydroxide)] 400 mg/5 mL suspension 30 ml PO DAILY PRN (Reason: constipation) guaifenesin [Adult Tussin Chest Congestion] 100 mg/5 mL liquid 200 mg PO Q4H PRN (Reason: cough) Enema 19-7 gram/118 mL enema [address] DAILY PRN (Reason: constipation) bisacodyl 10 mg suppository [address] DAILY PRN (Reason: constipation) polyvinyl alcohol [Artificial Tears (polyvin alc)] 1.4 % drops 2 drp EACH EYE BID aluminum-magnesium hydroxide 200-200 mg/5 mL suspension 5 ml PO Q4H PRN (Reason: dyspepsia) acetaminophen 650 mg suppository [address] Q4H PRN (Reason: fever or pain) azithromycin [Zithromax] 250 mg tablet See Rx Instructions .ROUTE .COMPLEX Qty: 6 0RF Rx Instructions: For 250 mg dose pack: take 500 mg today (day 1), then 250 mg for 4 days (days 2-5) albuterol sulfate [Ventolin HFA] 90 mcg/actuation HFA aerosol inhaler 2 puff inhalation Q8H hydroxyzine pamoate 25 mg capsule 25 mg PO BID isosorbide mononitrate 20 mg tablet 60 mg PO DAILY Rx Instructions: orally twice a day; give doses 7 hrs apart melatonin 5 mg capsule 5 mg PO QHS potassium chloride 10 mEq tablet extended release 10 meq PO DAILY topiramate [Topamax] 25 mg tablet 25 mg PO QHS tramadol 50 mg Tablet 50 mg PO BID Primary Care Provider: Ashwini Oconnell Referrals: Ashwini Oconnell MD [Primary Care Provider] - Print Language: Cape Verdean
--- NOTE | 2024-10-10 13:15 | RAD_ITS ---
EXAM: XR CHEST, 1 VIEW CLINICAL INDICATION: chest pain TECHNIQUE: Frontal view of the chest. COMPARISON: 07/25/24. FINDINGS: LUNGS AND PLEURAL SPACES: Unremarkable. No consolidation or edema. No pneumothorax. No effusion. HEART: Unremarkable. Cardiac silhouette not enlarged. MEDIASTINUM: Central airways and mediastinal contour are unremarkable. BONES/JOINTS: Unremarkable. No acute fracture. SOFT TISSUES: Unremarkable. RAD/Chest 1 View (Portable) IMPRESSION: No radiographic evidence of acute cardiopulmonary disease. Electronically Signed: Danie Tiwari MD at 14:21 EST ,
[2024-10-10] MEDS: Ketorolac 15 MG/ML Vial IV (13:21)
[2024-10-10] MEDS: Aspirin 81 MG TAB.CHEW 324 MG PO (13:21)
[2024-10-10 13:26] LABS: Absolute Lymphocyte Count 2.04 X10^3/uL (0.83-4.51); Absolute Neutrophil Count 3.4 X10^3/uL (2.0-7.7); Basophil# 0.08 X10^3/uL; Basophil% 1.3 % (0-1); Eosinophil# 0.21 X10^3/uL; Eosinophils% 3.4 % (0-5); Hemoglobin 10.8 g/dL (12.0-15.0); Lymphocyte # 2.04 X10^3/ul (0.83-4.51); Lymphocyte % 33.1 % (19-41); Mean Corp Hgb Conc 30.9 g/dL (32-36); Mean Corpuscular Hgb 29.4 pg (27.0-32.0); Mean Corpuscular Volume 95.4 fL (81-99); Mean Platelet Vol. 11.6 fl (6.2-12.0); Monocyte# 0.44 X10^3/uL; Monocyte% 7.1 % (0-10); NRBC Flagged by Analyzer 0 % (0-5); Neutrophil # 3.38 X10^3/uL (2.7-7.7); Neutrophil % 54.8 % (47-70); Platelet Count 227 K/mm3 (150-450); RBC Distribution Width CV 15.9 % (11.6-14.6); RBC Distribution Width SD 55.6 fl (35.1-43.9); Red Blood Count 3.67 M/mm3 (4.2-5.4); White Blood Count 6.2 K/mm3 (4.4-11.0)
[2024-10-10 13:47] LABS: Anion Gap 2 (5-15); BUN 10 mg/dL (7-18); BUN/Creat Ratio 13.5 RATIO (10-20); Calcium,Total 8.7 mg/dL (8.5-10.1); Chloride 114 mmol/L (98-107); Creatinine, Serum 0.74 mg/dL (0.55-1.02); EST Glomerular Filtration Rate 87 mL/min (>60); Est Glom Filt Rate - Afr Amer 105 mL/min (>60); Estimated Creatinine Clearance 159.89 ml/min; Glucose 81 mg/dL (74-106); Potassium 4.9 mmol/L (3.5-5.1); Sodium Level 141 mmol/L (136-145); Troponin-I HS (w/2H Reflex) 4 pg/mL (3.0-54.0)
[2024-10-10 15:23] LABS: Reflex Troponin-HS? (from REC) Y
[2024-10-10] MEDS: Lidocaine 2% Viscous15 ML UDC 15 ML PO (15:46)
[2024-10-10] MEDS: LORazepam 2 MG/ML Syringe 1 MG IV (15:46)
[2024-10-10] MEDS: Mag Hydrox/Al Hydrox/Simeth 30 ML UDC PO (15:46)
[2024-10-10 16:05] LABS: Troponin-I HS 5 pg/mL (3.0-54.0)
--- NOTE | 2024-10-10 20:37 | ED.RN ---
Patient updated on transportation ETA.
== END 2024-10-10 21:07 | disposition home or self-care (01) ==
PROVIDERS: Emergency Provider Emergency Medicine; PCP Internal Medicine; Visit Provider Emergency Medicine
DX: R07.89 Other chest pain (principal); I48.0 Paroxysmal atrial fibrillation; E66.01 Morbid (severe) obesity due to excess calories; E11.22 Type 2 diabetes mellitus with diabetic chronic kidney disease; N18.30 Chronic kidney disease, stage 3 unspecified; R03.1 Nonspecific low blood-pressure reading; I12.9 Hypertensive chronic kidney disease with stage 1 through stage 4 chronic kidney disease, or unspecified chronic kidney disease; F32.A Depression, unspecified; F41.9 Anxiety disorder, unspecified; E78.5 Hyperlipidemia, unspecified; Z88.0 Allergy status to penicillin; Z88.1 Allergy status to other antibiotic agents; Z79.01 Long term (current) use of anticoagulants; Z86.19 Personal history of other infectious and parasitic diseases; Z79.899 Other long term (current) drug therapy; Z90.49 Acquired absence of other specified parts of digestive tract; Z87.891 Personal history of nicotine dependence
CPT/HCPCS: 71045; 80048; 84484; 85025; 93005; 96374; 96375; 99285; A4216

== ENCOUNTER → 2025-07-31 | Outpatient (CLI) | payer BC, MEDICAID, SELFPAY ==
[2025-07-31 15:43] LABS: Hematocrit 37.7 % (37-47); Hemoglobin 12.2 g/dL (12.0-15.0); Immature Granulocytes Count 0.020 X10^3/uL (0.0-0.0); Mean Corp Hgb Conc 32.4 g/dL (32-36); Mean Corpuscular Volume 91.7 fL (81-99); Mean Platelet Vol. 11.9 fl (6.2-12.0); NRBC Flagged by Analyzer 0 % (0-5); Platelet Count 229 K/mm3 (150-450); RBC Distribution Width CV 15.1 % (11.6-14.6); RBC Distribution Width SD 50.5 fl (35.1-43.9); Red Blood Count 4.11 M/mm3 (4.2-5.4); White Blood Count 6.7 K/mm3 (4.4-11.0)
[2025-07-31 16:29] LABS: AST(SGOT) 30 U/L (<=31); Alanine Aminotransfer ALT/SGPT 50 U/L (<=34); Albumin, Serum 4.0 g/dL (3.5-5.0); Alkaline Phosphatase 131 U/L (35-104); Anion Gap 10 (5-15); BUN 24 mg/dL (4-19); BUN/Creat Ratio 26.1 RATIO (10-20); Calcium,Total 9.0 mg/dL (7.6-11.0); Carbon Dioxide 22.4 mmol/L (21.0-32.0); Chloride 106 mmol/L (98-108); Globulin 2.8 g/dL (2.2-4.2); Glucose 95 mg/dL (70-99); Potassium 4.8 mmol/L (3.3-5.1)
== END | disposition home or self-care (01) ==
PROVIDERS: PCP Internal Medicine; Referring Provider Nurse Practitioner Acute Care; Visit Provider Nurse Practitioner Acute Care
DX: E66.01 Morbid (severe) obesity due to excess calories (principal); R19.7 Diarrhea, unspecified; R11.2 Nausea with vomiting, unspecified; R10.12 Left upper quadrant pain
CPT/HCPCS: 36415; 80053; 85025

== ENCOUNTER → 2025-08-20 | Outpatient (CLI) | payer MEDICARE, MEDICAID, SELFPAY ==
--- NOTE | 2025-08-20 07:35 | US_ITS ---
PROCEDURE: ABD LIMITED W/ ELASTOGRAPHY REASON FOR EXAM: ELEVATED TRANSAMINASES AND ALP COMPARISON: None. TECHNIQUE: Procedure Code: [id number] Modality: US Procedure: ABD LIMITED W/ ELASTOGRAPHY Right upper quadrant abdominal ultrasound. SensorCath ElastQ Imaging shear wave elastography for non-invasive assessment of liver tissue stiffness. Malu EPIQ Elite. FINDINGS: LIVER: Size: Enlarged (hepatomegaly) Length: 19.2 cm Echotexture: Normal Contour: Normal Lesions: None identified Elastography: EQI Med: 3.8 kPa EQI Med [place]: 1.1 m/s IQR/Med: 44 %*. Limited study due to patient's body habitus. GALLBLADDER: Surgically absent. COMMON BILE DUCT: Dilated measuring up to 9.1 mm . PANCREAS: Obscured by bowel gas. Visualized portions of the right kidney are unremarkable. No right upper quadrant ascites. US/ABD Limited w/ Elastography IMPRESSION: NO TO MILD HEPATIC FIBROSIS Hepatomegaly. Limited examination due to patient's body habitus. Reference Values: SRU <1.37 m/s (5.7kPa): No to mild fibrosis 1.37 m/s - 2.2 m/s: Moderate to severe fibrosis >2.2 m/s (15kPa): Significant fibrosis / cirrhosis METAVIR Score F2 or higher: 1.34 m/s (5.7kPa) F3 or higher: 1.55 m/s (7.3kPa) F4: 1.80 m/s (10kPa) * If the IQR/Med is >30%, the variance in the measurements is a large and the a ccuracy of the measurement may be in question. Reading Location: [id number]
[2025-08-20 09:30] LABS: Ferritin 108 ng/mL (22-378); Hepatitis B Surface Antigen Nonreactive (Nonreactive); Hepatitis C Antibody Nonreactive (Nonreactive); Iron 46 ug/dL (50-170); Iron Binding Capacity,Total 272 ug/dL (250-450); Iron Binding Capacity,Unsat 226 ug/dL (228-428)
[2025-08-21 04:07] LABS: GGTP 66 IU/L (0-60)
== END | disposition home or self-care (01) ==
PROVIDERS: Referring Provider Nurse Practitioner Acute Care; Visit Provider Nurse Practitioner Acute Care
DX: R74.01 Elevation of levels of liver transaminase levels (principal); E66.01 Morbid (severe) obesity due to excess calories; R74.8 Abnormal levels of other serum enzymes; R19.7 Diarrhea, unspecified; E03.9 Hypothyroidism, unspecified
CPT/HCPCS: 36415; 76705; 76981; 82728; 82977; 83540; 83550; 84443; 86704; 86706; 86708; 86803; 87340

== ENCOUNTER 2025-08-21 12:32 | Day surgery (SDC) | payer MEDICARE, MEDICAID, SELFPAY ==
--- NOTE | 2025-08-17 14:33 | PAT.ANESEVAL ---
Pre-Assessment Diagnosis/Proposed Procedure Planned Operative Procedure(s): EGD/CSCOPE Anesthesia History Anesthesia History - primary montessori teacher: Anesthesia History - primary montessori teacher Hx Hospitalization No 08/17/25 11:14 Any Problems With Anesthesia No 08/17/25 11:14 Cholinesterase deficiency No 08/17/25 11:14 You/Your Family Experience No 08/17/25 11:14 fever (hyperthermia) with Relationship Recent Exposure to Contagious No 05/22/19 09:13 Disease Does patient have nerve No 08/17/25 11:14 stimulator Patient instructed to have device shut off --Does patient have Pacemaker or ICD? When Was Last Pacemaker Check QUESTION #4 FULL TEXT: You/Your Family Experience fever (hyperthermia) with Anesthesia Last Oral Intake Last Oral intake: Last Oral Intake NPO since Meds taken in AM with sips of water? Meds patient instructed to take am of surgery PONV PONV - primary montessori teacher: PONV - primary montessori teacher Female Yes 08/17/25 11:14 HX of Motion Sickness No 08/17/25 11:14 HX of N/V After Surgery No 08/17/25 11:14 Non-Smoker No 08/17/25 11:14 Duration of Surgery greater No 08/17/25 11:14 than 60 minutes Number of Risk Factors 1 08/17/25 11:14 PONV Score Low Risk 08/17/25 11:14 Height & Weight Height & Weight: Anesthesia: Height & Weight Height 5 ft 5 in 07/31/25 14:41 Respiratory Assessment Respiratory Assessment - primary montessori teacher: Respiratory Tract Infection Hx - primary montessori teacher Hx Respiratory Tract Infection No 08/17/25 11:14 STOP Sleep Apnea STOP Sleep Apnea - primary montessori teacher: STOP Sleep Apnea - primary montessori teacher Hx Hypertension Yes: CONTROLLED WITH MEDS 08/17/25 11:14 Hx Sleep Apnea Yes 08/17/25 11:14 CPAP Yes: NO LONGER HAS MACHINE 08/17/25 11:14 BIPAP No 08/17/25 11:14 Do you snore loudly (louder than talking or can be heard Do you often feel tired/ fatigued/ sleepy during daytime? Has anyone observed you stop breathing during sleep? STOP Results Positive 08/17/25 11:14 QUESTION #5 FULL TEXT : Do you snore loudly (louder than talking or can be heard through closed doors)? 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 Specify any problems Hx of Preganancy in last 3 No 08/17/25 11:14 Months Nurse Filling Out Transfusion DSCHRIBER 08/17/25 11:14 & Questions: Date: 08/17/25 08/17/25 11:14 Time: 11:17 08/17/25 11:14 Patient unable to answer at this time (ie. confused, unrespo /Reproduction History /Reproductive History - primary montessori teacher: /Reproductive Hx- primary montessori teacher Hx Now No 08/17/25 11:14 Gestational Age (in weeks): EDC: Hx Hx Para Hx Section SAB No 08/17/25 11:14 Does the father of the baby or his family experience fever w Father of the baby Malignant Hypertension history comment [facility] Medical History (Updated 08/17/25 @ 11:34 by Brittany Bull) Wears glasses History of Clostridium difficile infection Cancer Depression Anxiety Rash Thyroid disease Walker as ambulation aid Rheumatoid arthritis Bladder disease Low iron High cholesterol Back pain Migraine headache Stroke/cerebrovascular accident Vertigo Dietary restriction Difficulty swallowing History of IBS History of atrial fibrillation Gastric reflux Vapes nicotine containing substance COPD (chronic obstructive pulmonary disease) CPAP (continuous positive airway pressure) dependence Shortness of breath on exertion Leg cramps History of edema History of echocardiogram History of stress test Cardiology follow-up encounter History of CHF (congestive heart failure) Pain HTN (hypertension) Home Medications ?Medication ?Instructions ?Recorded ?Last Taken ?Type apixaban 5 mg tablet (Eliquis) 5 mg PO BID AFIB 05/07/17 08/15/25 History amlodipine 10 mg tablet 10 mg PO QHS BP 11/10/18 07/21/24 History atorvastatin 10 mg tablet 10 mg PO QHS 07/21/24 07/20/24 History azelastine 137 mcg (0.1 %) nasal 1 spray intranasal Q12H 07/21/24 07/21/24 History spray buspirone 15 mg tablet 15 mg PO TID ANXIETY 07/21/24 07/21/24 History furosemide 20 mg tablet 20 mg PO DAILY 07/21/24 07/21/24 History levocetirizine 5 mg tablet 5 mg PO QHS 07/21/24 07/20/24 History lisinopril 10 mg tablet 10 mg PO DAILY 07/21/24 07/21/24 History loperamide 2 mg tablet 2 mg PO Q12H PRN IBS 07/21/24 07/11/24 History (Anti-Diarrheal (loperamide)) methocarbamol 750 mg tablet 750 mg PO Q6H PRN muscle pain 07/21/24 07/20/24 History ondansetron 4 mg disintegrating 4 mg PO Q8H PRN Nausea 07/21/24 Unknown History tablet sotalol 120 mg tablet 120 mg PO BID 07/21/24 07/21/24 History albuterol sulfate 90 mcg/actuation 2 puff inhalation Q8H PRN 10/10/24 Unknown History aerosol inhaler (Ventolin HFA) shortness of breath or wheezing isosorbide mononitrate 20 mg tablet 60 mg PO QHS 10/10/24 Unknown History melatonin 5 mg capsule 5 mg PO QHS 10/10/24 Unknown History potassium chloride 10 mEq 10 meq PO DAILY 10/10/24 Unknown History tablet,extended release topiramate 25 mg tablet (Topamax) 25 mg PO QHS 10/10/24 Unknown History cetirizine 10 mg tablet 10 mg PO QDAY PRN allergy symptoms 07/31/25 Unknown History escitalopram oxalate 5 mg tablet 20 mg PO DAILY 07/31/25 Unknown History hydroxyzine pamoate 25 mg capsule 50 mg PO BID 07/31/25 Unknown History phentermine 8 mg tablet 8 mg PO TID 07/31/25 08/15/25 History prazosin 1 mg capsule 1 mg PO QHS 07/31/25 Unknown History rabeprazole 20 mg tablet,delayed 20 mg PO QDAY #30 tabs 07/31/25 Unknown Rx release trazodone 100 mg tablet 100 mg PO QHS 07/31/25 Unknown History peg 3350-electrolytes 236 240 ml PO Q10M #4,000 mL 08/13/25 Unknown Rx gram-22.74 gram-6.74 gram-5.86 gram solution (Golytely) ferrous sulfate 325 mg (65 mg 325 mg PO DAILY 08/17/25 08/15/25 History iron) tablet (iron) Allergy/AdvReac Type Severity Reaction Status Date / Time amoxicillin trihydrate (From Allergy Hives Verified 08/17/25 11:08 Augmentin) baclofen Allergy Unknown Verified 08/17/25 11:08 gabapentin Allergy Unknown Verified 08/17/25 11:08 Iodinated Contrast Media Allergy Anaphylaxis Verified 08/17/25 11:08 (CONTRASTS) potassium clavulanate (From Allergy Hives Verified 08/17/25 11:08 Augmentin) shrimp Allergy Unknown Verified 08/17/25 11:08 valerian AdvReac NEEDS Verified 08/17/25 11:08 FOLLOW-UP Family History Mother Hypertension Father Heart disease Surgical History (Updated 08/17/25 @ 11:34 by Brittany Bull) History of cardiac catheterization Hx of colonoscopy History of esophagogastroduodenoscopy (EGD) History of hysterectomy History of appendectomy History of cholecystectomy History of gastric bypass Status post incision and drainage Social History Smoking Status: Current every day smoker tobacco type: e-cigarettes alcohol intake: never substance use type: does not use what type of physical activity do you participate in: walking frequency: daily Audit: Pertinent Findings Pertinent Findings EKG Perinent findings: 03/01/2025. Sinus bradycardia at 55 bpm. 10/10/2024. Sinus bradycardia at 53 bpm. Echo (EF%) pertinent findings: June 13, 2025. Preserved EF. No significant aortic stenosis. Consult pertinent findings: 08/14/2025. Dr. Melendez-cardiology. 1. Aortic stenosis-latest echo does not show any significant aortic stenosis. 2. Atrial fibrillation?on Eliquis. 3. CHF?compensated at this time. 4. Hypertension?controlled. 5. Preop cardiovascular exam-low to intermediate cardiac risk. Okay to hold Eliquis for couple days prior to colonoscopy. Resume PATTIE postop. Continue all other medications perioperative. Recommendation Anesthesia Recommendation Anesthesia recommendation: OPTIMIZED for anesthesia
[2025-08-21] VITALS (7 sets, daily range): BP systolic 107–153; BP diastolic 66–88; PULSE 59–68; RESP 14–18; TEMP 36.4–36.9; O2SAT 93–98; BMI 75.6
--- NOTE | 2025-08-21 12:42 | PCM.HP.STD ---
HPI - General General Date of Admission: 08/21/25 Date of Service: 08/21/25 HPI Narrative QUINTEN YARBROUGH, is a 55 F who presents [Chief Complaint: schedule colonoscopy and EGD Details: - personal h/o colon polyps, per patient last exam was 4 years ago at [facility] - denies any family h/o colon CA - she does experience diarrhea, urgency, fecal incontinence, post prandial, for the past 3 weeks - denies any dietary or medication changes - recently on Macrobid for UTI, although this was after onset of diarrhea - normal stools for her are formed 2x a day - denies any bleeding - denies any unexplained weight loss - generalized abdominal pain, sharp stabbing pain post prandial and improved with a BM - denies any stool testing - reports she is taking loperamide 2mg PRN - she does have occasional formed stools - denies any HB - nausea constant x3-4 weeks - vomiting frequently over the past 3 weeks, improves with phenergan - A. Fib on Eliquis - denies any h/o lung disease - denies any kidney disease - lives with her nephew - no longer drives - denies any falls - prepares her own meals - she is not diabetic - H/O CCX many years ago - denies taking any NSAIDS PFSH Medical History Wears glasses History of Clostridium difficile infection Cancer Depression Anxiety Rash Thyroid disease Walker as ambulation aid Rheumatoid arthritis Bladder disease Low iron High cholesterol Back pain Migraine headache Stroke/cerebrovascular accident Vertigo Dietary restriction Difficulty swallowing History of IBS History of atrial fibrillation Gastric reflux Vapes nicotine containing substance COPD (chronic obstructive pulmonary disease) CPAP (continuous positive airway pressure) dependence Shortness of breath on exertion Leg cramps History of edema History of echocardiogram History of stress test Cardiology follow-up encounter History of CHF (congestive heart failure) Pain HTN (hypertension) Home Medications ?Medication ?Instructions ?Recorded ?Last Taken ?Type apixaban 5 mg tablet (Eliquis) 5 mg PO BID AFIB 05/07/17 08/15/25 History amlodipine 10 mg tablet 10 mg PO QHS BP 11/10/18 07/21/24 History atorvastatin 10 mg tablet 10 mg PO QHS 07/21/24 07/20/24 History azelastine 137 mcg (0.1 %) nasal 1 spray intranasal Q12H 07/21/24 07/21/24 History spray buspirone 15 mg tablet 15 mg PO TID ANXIETY 07/21/24 07/21/24 History furosemide 20 mg tablet 20 mg PO DAILY 07/21/24 07/21/24 History levocetirizine 5 mg tablet 5 mg PO QHS 07/21/24 07/20/24 History lisinopril 10 mg tablet 10 mg PO DAILY 07/21/24 07/21/24 History loperamide 2 mg tablet 2 mg PO Q12H PRN IBS 07/21/24 07/11/24 History (Anti-Diarrheal (loperamide)) methocarbamol 750 mg tablet 750 mg PO Q6H PRN muscle pain 07/21/24 07/20/24 History ondansetron 4 mg disintegrating 4 mg PO Q8H PRN Nausea 07/21/24 Unknown History tablet sotalol 120 mg tablet 120 mg PO BID 07/21/24 07/21/24 History albuterol sulfate 90 mcg/actuation 2 puff inhalation Q8H PRN 10/10/24 Unknown History aerosol inhaler (Ventolin HFA) shortness of breath or wheezing isosorbide mononitrate 20 mg tablet 60 mg PO QHS 10/10/24 Unknown History melatonin 5 mg capsule 5 mg PO QHS 10/10/24 Unknown History potassium chloride 10 mEq 10 meq PO DAILY 10/10/24 Unknown History tablet,extended release topiramate 25 mg tablet (Topamax) 25 mg PO QHS 10/10/24 Unknown History cetirizine 10 mg tablet 10 mg PO QDAY PRN allergy symptoms 07/31/25 Unknown History escitalopram oxalate 5 mg tablet 20 mg PO DAILY 07/31/25 Unknown History hydroxyzine pamoate 25 mg capsule 50 mg PO BID 07/31/25 Unknown History phentermine 8 mg tablet 8 mg PO TID 07/31/25 08/15/25 History prazosin 1 mg capsule 1 mg PO QHS 07/31/25 Unknown History rabeprazole 20 mg tablet,delayed 20 mg PO QDAY #30 tabs 07/31/25 Unknown Rx release trazodone 100 mg tablet 100 mg PO QHS 07/31/25 Unknown History peg 3350-electrolytes 236 240 ml PO Q10M #4,000 mL 08/13/25 Unknown Rx gram-22.74 gram-6.74 gram-5.86 gram solution (Golytely) ferrous sulfate 325 mg (65 mg 325 mg PO DAILY 08/17/25 08/15/25 History iron) tablet (iron) Allergy/AdvReac Type Severity Reaction Status Date / Time amoxicillin trihydrate (From Allergy Hives Verified 08/17/25 11:08 Augmentin) baclofen Allergy Unknown Verified 08/17/25 11:08 gabapentin Allergy Unknown Verified 08/17/25 11:08 Iodinated Contrast Media Allergy Anaphylaxis Verified 08/17/25 11:08 (CONTRASTS) potassium clavulanate (From Allergy Hives Verified 08/17/25 11:08 Augmentin) shrimp Allergy Unknown Verified 08/17/25 11:08 valerian AdvReac NEEDS Verified 08/17/25 11:08 FOLLOW-UP Family History Mother Hypertension Father Heart disease Surgical History History of cardiac catheterization Hx of colonoscopy History of esophagogastroduodenoscopy (EGD) History of hysterectomy History of appendectomy History of cholecystectomy History of gastric bypass Status post incision and drainage Social History Smoking Status: Current every day smoker tobacco type: e-cigarettes alcohol intake: never substance use type: does not use what type of physical activity do you participate in: walking frequency: daily ROS Constitutional Constitutional: Denies fatigue, fever(s), poor appetite, weight gain or weight loss Gastrointestinal Gastrointestinal: Denies belching, bloating, change in bowel habits, change in stool character, chewing difficulty, coffee ground emesis, constipation, cramping, diarrhea, dyspepsia, dysphagia, early satiety, excessive flatus, fecal incontinence, heartburn, hematemesis, hematochezia, hemorrhoids, loose stools, melena, nausea, odynophagia, rectal bleeding, tenesmus, vomiting or weight changes Physical Exam Const alert, oriented x3, no apparent distress and healthy appearing General Appearance: cooperative GI normal to inspection, nondistended, normoactive bowel sounds, soft to palpation, non-tender and non-distended Percussion: normal to percussion Rectal Exam: deferred Assessment & Plan Assessment/Plan (1) LUQ pain: (2) Nausea and vomiting: (3) Diarrhea: PLAN: Assessment and Plan Assessment and Plan (1) Morbid obesity: Status: Chronic (2) Diarrhea: Status: Acute (3) Nausea and vomiting: Status: Acute (4) LUQ pain: Status: Acute (5) Personal history of colonic polyps: Status: Acute Orders: Orders CBC W/Diff, Automated Today E66.01 - Morbid (severe) obesity due to excess calories, R10.12 - Left upper quadrant pain, R11.2 - Nausea with vomiting, unspecified, R19.7 - Diarrhea, unspecified CDIFF (PCR) Today E66.01 - Morbid (severe) obesity due to excess calories, R10.12 - Left upper quadrant pain, R11.2 - Nausea with vomiting, unspecified, R19.7 - Diarrhea, unspecified ENTERIC PATHOGEN PANEL STOOL Today E66.01 - Morbid (severe) obesity due to excess calories, K58.9 - Irritable bowel syndrome, unspecified, R10.12 - Left upper quadrant pain, R11.2 - Nausea with vomiting, unspecified, R19.7 - Diarrhea, unspecified Giardia Lamblia, Stool EIA Today E66.01 - Morbid (severe) obesity due to excess calories, R10.12 - Left upper quadrant pain, R11.2 - Nausea with vomiting, unspecified, R19.7 - Diarrhea, unspecified Ova and Parasites [id number] Today E66.01 - Morbid (severe) obesity due to excess calories, K58.9 - Irritable bowel syndrome, unspecified, R10.12 - Left upper quadrant pain, R11.2 - Nausea with vomiting, unspecified, R19.7 - Diarrhea, unspecified Comprehensive Metabolic Profil Today R10.12 - Left upper quadrant pain, R11.2 - Nausea with vomiting, unspecified, R19.7 - Diarrhea, unspecified Medications: New rabeprazole take once daily 30 minutes before first meal 20 mg PO QDAY 30 tabs 3RF Discontinued azithromycin (Zithromax) Discontinued Reason: Order Changed For 250 mg dose pack: take 500 mg today (day 1), then 250 mg for 4 days (days 2-5) 6 tabs 0RF Plan 55-year-old female presents with 3-week history of change in bowel habits characterized by diarrhea, urgency, and episodes of fecal incontinence, occurring close plan yearly follow-up updated by myself, vomiting, generalized postprandial abdominal pain relieved by bowel movement. Symptoms began prior to antibiotic use and without dietary or medication changes. Exam reveals mild LUQ with tenderness. Plan to obtain stool studies. Given history of colon polyps with new symptom onset, recommend bidirectional endoscopies for further evaluation. She will continue use of loperamide as needed for symptom control. She will start a daily PPI. Patient Instructions: EGD & colonoscopy - [place] Start Rabeprazole daily Continue Imodium as needed Follow-up in office post procedures Coding Level of Care Code Off britney,chasity,level 4 ]
[2025-08-21] MEDS: Lactated Ringers 1,000 ML 15 ML IV (13:25)
--- NOTE | 2025-08-21 13:45 | COLBX_PTH ---
PATIENT: QUINTEN YARBROUGH LOC: EN U#:[id number] AGE/SX: 55/F ROOM: RE08/21/[address]: Dr. Dave Álvarez DO : 1970 BED: DIS: 08/21/2025 SPEC #: [id number] RECD: 08/21/25 14:50 STATUS: ZAY REKasi #: [id number] NYLA: 08/21/25 13:[address]: Dave Álvarez DEPT: SURGICAL PATHOLOGY RECD BY: Kemar Julian Tissues: A - Esophagus, NOS B - Ileum, NOS C - COLON BIOPSY Procedures: Surgery Specimen Level IV HEADER OPERATION: Colonoscopy with biopsy, EGD with biopsy PRE-OP DIAGNOSIS: Left upper quadrant pain, nausea / vomiting, diarrhea TISSUE SUBMITTED: A- Distal esophagus biopsy, B- Terminal ileum biopsy, C- Random colon biopsy MICROSCOPIC DIAGNOSIS A. Distal esophagus, biopsy: * Benign squamous epithelium * Oxyntocardiac type mucosa with chronic active inflammation and reactive changes, negative for goblet cells B. Small intestine, terminal ileum, biopsy: * Small bowel mucosa with no pathologic change C. Colon, random biopsy: * Colonic mucosa with no pathologic change MICROSCOPIC DESCRIPTION Slides are reviewed. GROSS DESCRIPTION A. Received in fixative is one container labeled with the patient's name and designated Distal esophagus biopsy. The specimen consists of two irregular fragments of krueger tissue that measure 0.4 and 0.5 cm. The specimen is totally submitted in one cassette. B. Received in fixative is one container labeled with the patient's name and designated Terminal ileum biopsy. The specimen consists of two irregular fragments of krueger tissue that measure 0.3 and 0.5 cm. The specimen is totally submitted in one cassette. C. Received in fixative is one container labeled with the patient's name and designated Random colon biopsy. The specimen consists of multiple irregular fragments of krueger tissue that in aggregate measure 0.8 x 0.4 x 0.1 cm. The specimen is totally submitted in one cassette. NE 08/21/2025 CPT:16610l8
--- NOTE | 2025-08-21 14:04 | PCM.PRE.AN2 ---
ASA Classification* ASA Classification ASA Classification: 3 Assessment & Plan Anesthesia* Anesthesia Assessment Anesthesia Assessment: Discussed sedation and/or anesthesia options, risks, benefits, and alternatives with patient/parents/legal guardian/POA. Questions invited. The patient/parents/legal guardian/POA seems to understand and agrees to proceed with anesthesia plan. Reviewed the physical assessment, medical history, allergy history and patient home medications list prior to surgery/procedure/anesthetic and documented any changes. Performed airway and anesthesia risk assessments. Anesthesia Type Anesthesia Type: MAC History Source History Obtained from:: Patient and Chart Anesthesia Focused Assessment* Temperature: 98.1 F Pulse Rate: 62 Blood Pressure: 153/88 Respiratory Rate: 18 Pulse Ox: 93 Oxygen Delivery Method: Room Air Airway Assessment Mouth opens: >3 cm Mallampati Score: II Teeth Condition: Dentures (Edentulous) Neck Range of motion (ROM): Full ROM Labs Anesthesia Preop lab: CBC WBC, (4.4-11.0) 6.7 K/mm3 07/31/25, 15:09 RBC, (4.2-5.4) 4.11 M/mm3 L 07/31/25, 15:09 Hgb, (12.0-15.0) 12.2 g/dL 07/31/25, 15:09 Hct, (37-47) 37.7 % 07/31/25, 15:09 Plt Count, (150-450) 229 K/mm3 07/31/25, 15:09 CHEMISTRY Potassium, (3.3-5.1) 4.8 mmol/L 07/31/25, 15:09 Sodium, (133-145) 139 mmol/L 07/31/25, 15:09 Magnesium, (1.6-2.6) 2.5 mg/dL 07/31/24, 06:20 Phosphorus, (2.5-4.9) 3.4 mg/dL 07/21/24, 13:30 BUN, (4-19) 24 mg/dL H 07/31/25, 15:09 Creatinine, (0.70-1.20) 0.93 mg/dL 07/31/25, 15:09 Glucose, (70-99) 95 mg/dL 07/31/25, 15:09 TSH, (0.300-4.200) 1.880 uIU/mL 08/20/25, 08:04 COAG PT, (11.7-14.9) 14.7 SECONDS 07/21/24, 13:30 Pre-Assessment Diagnosis/Proposed Procedure Planned Operative Procedure(s): EGD/CSCOPE Anesthesia History Anesthesia History - fast food shift lead: Anesthesia History - fast food shift lead Hx Hospitalization No 08/17/25 11:14 Any Problems With Anesthesia No 08/17/25 11:14 Cholinesterase deficiency No 08/17/25 11:14 You/Your Family Experience No 08/17/25 11:14 fever (hyperthermia) with Relationship Recent Exposure to Contagious No 08/21/25 13:16 Disease Does patient have nerve No 08/17/25 11:14 stimulator Patient instructed to have device shut off --Does patient have Pacemaker No 08/21/25 13:16 or ICD? When Was Last Pacemaker Check QUESTION #4 FULL TEXT: You/Your Family Experience fever (hyperthermia) with Anesthesia Last Oral Intake Last Oral intake: Last Oral Intake NPO since 06:30 08/21/25 13:16 Meds taken in AM with sips of Yes 08/21/25 13:16 water? Meds patient instructed to take am of surgery PONV PONV - fast food shift lead: PONV - fast food shift lead Female Yes 08/17/25 11:14 HX of Motion Sickness No 08/17/25 11:14 HX of N/V After Surgery No 08/17/25 11:14 Non-Smoker No 08/17/25 11:14 Duration of Surgery greater No 08/17/25 11:14 than 60 minutes Number of Risk Factors 1 08/17/25 11:14 PONV Score Low Risk 08/17/25 11:14 Height & Weight Height & Weight: Anesthesia: Height & Weight Height 5 ft 4 in 08/21/25 13:16 Weight: 200 kg 08/21/25 13:16 Body Mass Index (BMI) 75.6 08/21/25 13:16 Respiratory Assessment Respiratory Assessment - fast food shift lead: Respiratory Tract Infection Hx - fast food shift lead Hx Respiratory Tract Infection No 08/17/25 11:14 STOP Sleep Apnea STOP Sleep Apnea - fast food shift lead: STOP Sleep Apnea - fast food shift lead Hx Hypertension Yes: CONTROLLED WITH MEDS 08/17/25 11:14 Hx Sleep Apnea Yes 08/17/25 11:14 CPAP Yes: NO LONGER HAS MACHINE 08/17/25 11:14 BIPAP No 08/17/25 11:14 Do you snore loudly (louder than talking or can be heard Do you often feel tired/ fatigued/ sleepy during daytime? Has anyone observed you stop breathing during sleep? STOP Results Positive 08/17/25 11:14 QUESTION #5 FULL TEXT : Do you snore loudly (louder than talking or can be heard through closed doors)? 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 Specify any problems Hx of Preganancy in last 3 No 08/17/25 11:14 Months Nurse Filling Out Transfusion DSCHRIBER 08/17/25 11:14 & Questions: Date: 08/17/25 08/17/25 11:14 Time: 11:17 08/17/25 11:14 Patient unable to answer at this time (ie. confused, unrespo /Reproduction History /Reproductive History - fast food shift lead: /Reproductive Hx- fast food shift lead Hx Now No 08/17/25 11:14 Gestational Age (in weeks): EDC: Hx Hx Para Hx Section SAB No 08/17/25 11:14 Does the father of the baby or his family experience fever w Father of the baby Malignant Hypertension history comment Active Medications Active Medications: Current Medications Generic Name Dose Route Start Last Admin Trade Name Freq PRN Reason Stop Dose Admin Lactated Ringer's 1,000 mls @ 15 mls/hr 08/21/25 12:45 08/21/25 13:25 IV 15 mls/hr .Q48H KIKE Administration PFSH Medical History Wears glasses History of Clostridium difficile infection Cancer Depression Anxiety Rash Thyroid disease Walker as ambulation aid Rheumatoid arthritis Bladder disease Low iron High cholesterol Back pain Migraine headache Stroke/cerebrovascular accident Vertigo Dietary restriction Difficulty swallowing History of IBS History of atrial fibrillation Gastric reflux Vapes nicotine containing substance COPD (chronic obstructive pulmonary disease) CPAP (continuous positive airway pressure) dependence Shortness of breath on exertion Leg cramps History of edema History of echocardiogram History of stress test Cardiology follow-up encounter History of CHF (congestive heart failure) Pain HTN (hypertension) Home Medications ?Medication ?Instructions ?Recorded ?Last Taken ?Type apixaban 5 mg tablet (Eliquis) 5 mg PO BID AFIB 05/07/17 08/15/25 History amlodipine 10 mg tablet 10 mg PO QHS BP 11/10/18 08/21/25 History atorvastatin 10 mg tablet 10 mg PO QHS 07/21/24 07/20/24 History azelastine 137 mcg (0.1 %) nasal 1 spray intranasal Q12H 07/21/24 07/21/24 History spray buspirone 15 mg tablet 15 mg PO TID ANXIETY 07/21/24 07/21/24 History furosemide 20 mg tablet 20 mg PO DAILY 07/21/24 07/21/24 History levocetirizine 5 mg tablet 5 mg PO QHS 07/21/24 07/20/24 History lisinopril 10 mg tablet 10 mg PO DAILY 07/21/24 07/21/24 History loperamide 2 mg tablet 2 mg PO Q12H PRN IBS 07/21/24 07/11/24 History (Anti-Diarrheal (loperamide)) methocarbamol 750 mg tablet 750 mg PO Q6H PRN muscle pain 07/21/24 07/20/24 History ondansetron 4 mg disintegrating 4 mg PO Q8H PRN Nausea 07/21/24 Unknown History tablet sotalol 120 mg tablet 120 mg PO BID 07/21/24 08/21/25 History albuterol sulfate 90 mcg/actuation 2 puff inhalation Q8H PRN 10/10/24 Unknown History aerosol inhaler (Ventolin HFA) shortness of breath or wheezing isosorbide mononitrate 20 mg tablet 60 mg PO QHS 10/10/24 Unknown History melatonin 5 mg capsule 5 mg PO QHS 10/10/24 Unknown History potassium chloride 10 mEq 10 meq PO DAILY 10/10/24 Unknown History tablet,extended release topiramate 25 mg tablet (Topamax) 25 mg PO QHS 10/10/24 Unknown History cetirizine 10 mg tablet 10 mg PO QDAY PRN allergy symptoms 07/31/25 Unknown History escitalopram oxalate 5 mg tablet 20 mg PO DAILY 07/31/25 Unknown History hydroxyzine pamoate 25 mg capsule 50 mg PO BID 07/31/25 Unknown History phentermine 8 mg tablet 8 mg PO TID 07/31/25 08/15/25 History prazosin 1 mg capsule 1 mg PO QHS 07/31/25 Unknown History rabeprazole 20 mg tablet,delayed 20 mg PO QDAY #30 tabs 07/31/25 08/21/25 Rx release trazodone 100 mg tablet 100 mg PO QHS 07/31/25 Unknown History peg 3350-electrolytes 236 240 ml PO Q10M #4,000 mL 08/13/25 Unknown Rx gram-22.74 gram-6.74 gram-5.86 gram solution (Golytely) ferrous sulfate 325 mg (65 mg 325 mg PO DAILY 08/17/25 08/15/25 History iron) tablet (iron) Allergy/AdvReac Type Severity Reaction Status Date / Time amoxicillin trihydrate (From Allergy Hives Verified 08/17/25 11:08 Augmentin) baclofen Allergy Unknown Verified 08/17/25 11:08 gabapentin Allergy Unknown Verified 08/17/25 11:08 Iodinated Contrast Media Allergy Anaphylaxis Verified 08/17/25 11:08 (CONTRASTS) potassium clavulanate (From Allergy Hives Verified 08/17/25 11:08 Augmentin) shrimp Allergy Unknown Verified 08/17/25 11:08 valerian AdvReac NEEDS Verified 08/17/25 11:08 FOLLOW-UP Family History Mother Hypertension Father Heart disease Surgical History History of cardiac catheterization Hx of colonoscopy History of esophagogastroduodenoscopy (EGD) History of hysterectomy History of appendectomy History of cholecystectomy History of gastric bypass Status post incision and drainage Social History Smoking Status: Current every day smoker tobacco type: e-cigarettes alcohol intake: never substance use type: does not use what type of physical activity do you participate in: walking frequency: daily Review of Systems (Anesthesia) ROS Narrative System reviewed and no additional complaints, except as documented.
--- NOTE | 2025-08-21 14:42 | OP.PROVAT_ITS ---
08/21/2025 Unknown Referring Re : Upper GI endoscopy procedure for Sienna Molina Dear Dr. Shelley This procedure was performed on Thursday, August 21, 2025. My impressions and recommendations are as follows: Impressions : - LA Grade A reflux esophagitis with no bleeding. Biopsied. - Adrian-en-Y gastrojejunostomy with gastrojejunal anastomosis characterized by healthy appearing mucosa. - Normal examined jejunum. Recommendations : - Discharge patient to home. - Resume previous diet. - Continue present medications. - Await pathology results. My findings are described in the full procedure note, which is enclosed. If I can be of further assistance, please feel free to contact me at . Sincerely, Dave Ávlarez, 08/21/2025 2:42:04 PM This report has been signed electronically.
--- NOTE | 2025-08-21 14:42 | OP.EGD_ITS ---
Patient Name: Sienna Molina Procedure Date: 08/21/2025 2:06 PM Date of : 1970 Age: 55 Procedure: Upper GI endoscopy Indications: Epigastric abdominal pain, Iron deficiency anemia, Functional Dyspepsia Providers: Dave Álvarez DO Referring MD: Polo Referring Medicines: Monitored Anesthesia Care Patient Profile: This is a 55 year old female. Refer to note in patient chart for documentation of history and physical. Patient has symptoms of chronic abdominal cramping, chronic epigastric abdominal pain, chronic dyspepsia and chronic nausea. Complications: No immediate complications. Procedure: Pre-Anesthesia Assessment: - Prior to the procedure, a History and Physical was performed, and patient medications and allergies were reviewed. The patient is competent. The risks and benefits of the procedure and the sedation options and risks were discussed with the patient. All questions were answered and informed consent was obtained. Patient identification and proposed procedure were verified by the physician in the pre-procedure area. Mental Status Examination: alert and oriented. Airway Examination: normal oropharyngeal airway and neck mobility. Respiratory Examination: clear to auscultation. CV Examination: normal. Prophylactic Antibiotics: The patient does not require prophylactic antibiotics. Prior Anticoagulants: The patient has taken no anticoagulant or antiplatelet agents. ASA Grade Assessment: II - A patient with mild systemic disease. After reviewing the risks and benefits, the patient was deemed in satisfactory condition to undergo the procedure. The anesthesia plan was to use monitored anesthesia care (MAC). Immediately prior to administration of medications, the patient was re-assessed for adequacy to receive sedatives. The heart rate, respiratory rate, oxygen saturations, blood pressure, adequacy of pulmonary ventilation, and response to care were monitored throughout the procedure. The physical status of the patient was re-assessed after the procedure. After obtaining informed consent, the endoscope was passed under direct vision. Throughout the procedure, the patient's blood pressure, pulse, and oxygen saturations were monitored continuously. The Colonoscope was introduced through the mouth, and advanced to the third part of the duodenum. Small bowel enteroscopy was deemed necessary. The upper GI endoscopy was accomplished without difficulty. The patient tolerated the procedure well. Scope In: 2:18:52 PM Scope Out: 2:21:11 PM Total Procedure Duration Time 0 hours 2 minutes 19 seconds Findings: LA Grade A (one or more mucosal breaks less than 5 mm, not extending between tops of 2 mucosal folds) esophagitis with no bleeding was found 37 to 40 cm from the incisors. Biopsies were taken with a cold forceps for histology. Verification of patient identification for the specimen was done. Estimated blood loss was minimal. Evidence of a Adrian-en-Y gastrojejunostomy was found. The gastrojejunal anastomosis was characterized by healthy appearing mucosa. This was traversed. The sgizj-gb-voedemi limb was characterized by healthy appearing mucosa. The jejunojejunal anastomosis was characterized by healthy appearing mucosa. The wsuevuky-ur-lvvzrfw limb was not examined as it could not be found. The excluded stomach was not examined as it could not be found. The examined jejunum was normal. Impression: - LA Grade A reflux esophagitis with no bleeding. Biopsied. - Adrian-en-Y gastrojejunostomy with gastrojejunal anastomosis characterized by healthy appearing mucosa. - Normal examined jejunum. Recommendation: - Discharge patient to home. - Resume previous diet. - Continue present medications. - Await pathology results. Procedure Code(s): --- Professional --- 03580, Small intestinal endoscopy, enteroscopy beyond second portion of duodenum, not including ileum; with biopsy, single or multiple CPT copyright 2021 [employer]. All rights reserved. The codes documented in this report are preliminary and upon fish flipper review may be revised to meet current compliance requirements. Dave Álvarez DO 08/21/2025 2:42:04 PM This report has been signed electronically. Number of Addenda: 0 Note Initiated On: 08/21/2025 2:06 PM
--- NOTE | 2025-08-21 14:46 | OP.COLON_ITS ---
Patient Name: Sienna Molina Procedure Date: 08/21/2025 2:21 PM Date of : 1970 Age: 55 Procedure: Colonoscopy Indications: Clinically significant diarrhea of unexplained origin Providers: Dave Álvarez DO Referring MD: Unknown Referring Medicines: Monitored Anesthesia Care Patient Profile: This is a 55 year old female. Refer to note in patient chart for documentation of history and physical. Patient has symptoms of chronic abdominal cramping, chronic epigastric abdominal pain, chronic dyspepsia and chronic nausea. Last Colonoscopy: none. The patient's first colonoscopy is today. Complications: No immediate complications. Procedure: Pre-Anesthesia Assessment: - Prior to the procedure, a History and Physical was performed, and patient medications and allergies were reviewed. The patient is competent. The risks and benefits of the procedure and the sedation options and risks were discussed with the patient. All questions were answered and informed consent was obtained. Patient identification and proposed procedure were verified by the physician in the pre-procedure area. Mental Status Examination: alert and oriented. Airway Examination: normal oropharyngeal airway and neck mobility. Respiratory Examination: clear to auscultation. CV Examination: normal. Prophylactic Antibiotics: The patient does not require prophylactic antibiotics. Prior Anticoagulants: The patient has taken no anticoagulant or antiplatelet agents. ASA Grade Assessment: II - A patient with mild systemic disease. After reviewing the risks and benefits, the patient was deemed in satisfactory condition to undergo the procedure. The anesthesia plan was to use monitored anesthesia care (MAC). Immediately prior to administration of medications, the patient was re-assessed for adequacy to receive sedatives. The heart rate, respiratory rate, oxygen saturations, blood pressure, adequacy of pulmonary ventilation, and response to care were monitored throughout the procedure. The physical status of the patient was re-assessed after the procedure. After I obtained informed consent, the scope was passed under direct vision. Throughout the procedure, the patient's blood pressure, pulse, and oxygen saturations were monitored continuously. The Colonoscope was introduced through the anus and advanced to the terminal ileum. The colonoscopy was performed without difficulty. The patient tolerated the procedure well. The quality of the bowel preparation was adequate. The terminal ileum, ileocecal valve, appendiceal orifice, and rectum were photographed. Scope In: 2:23:11 PM Scope Withdrawal Time 0 hours 6 minutes 15 seconds Scope Out: 2:36:10 PM Total Procedure Duration Time 0 hours 12 minutes 59 seconds Findings: An area of mildly congested mucosa was found in the recto-sigmoid colon, in the sigmoid colon, in the ascending colon and in the cecum. Biopsies were taken with a cold forceps for histology. Verification of patient identification for the specimen was done. Estimated blood loss was minimal. Stool was found in the rectum, in the recto-sigmoid colon, in the descending colon, in the transverse colon and in the cecum. A patchy area of the terminal ileum was congested. Biopsies were taken with a cold forceps for histology. Verification of patient identification for the specimen was done. Estimated blood loss was minimal. Impression: - Congested mucosa in the recto-sigmoid colon, in the sigmoid colon, in the ascending colon and in the cecum. Biopsied. - Stool in the rectum, in the recto-sigmoid colon, in the descending colon, in the transverse colon and in the cecum. - Congested mucosa in the terminal ileum. Biopsied. Recommendation: - Discharge patient to home. - Resume previous diet. - Continue present medications. - Await pathology results. - Repeat colonoscopy in 5 years for surveillance. Procedure Code(s): --- Professional --- 63832, Colonoscopy, flexible; with biopsy, single or multiple CPT copyright 2021 [employer]. All rights reserved. The codes documented in this report are preliminary and upon casing machine operator review may be revised to meet current compliance requirements. Dave Álvarez DO 08/21/2025 2:45:50 PM This report has been signed electronically. Number of Addenda: 0 Note Initiated On: 08/21/2025 2:21 PM
--- NOTE | 2025-08-21 14:46 | OP.PROVAT_ITS ---
08/21/2025 Unknown Referring Re : Colonoscopy procedure for Sienna Molina Dear Dr. Shelley This procedure was performed on Thursday, August 21, 2025. My impressions and recommendations are as follows: Impressions : - Congested mucosa in the recto-sigmoid colon, in the sigmoid colon, in the ascending colon and in the cecum. Biopsied. - Stool in the rectum, in the recto-sigmoid colon, in the descending colon, in the transverse colon and in the cecum. - Congested mucosa in the terminal ileum. Biopsied. Recommendations : - Discharge patient to home. - Resume previous diet. - Continue present medications. - Await pathology results. - Repeat colonoscopy in 5 years for surveillance. My findings are described in the full procedure note, which is enclosed. If I can be of further assistance, please feel free to contact me at . Sincerely, Dave Álvarez, 08/21/2025 2:45:50 PM This report has been signed electronically.
--- NOTE | 2025-08-21 14:47 | PCM.POST.ANE ---
Anesthesia: Postop Eval I Current Vital Signs Temperature: 98.4 F Pulse Rate: 68 Blood Pressure: 110/74 Respiratory Rate: 16 Pulse Ox: 97 Oxygen Delivery Method: Room Air Assessment Airway patent: Yes Spontaneous unlabored respirations: Yes Mental status: Awake and Calm nausea: No Vomiting: No Anesthesia Complication: No Fluid Hydration Crystalloid volume administer (ml): 500 Total IV fluid infused: 500 Progress Note Anesthesia document: Postop Eval 1 completed: Yes
--- NOTE | 2025-08-21 16:25 | PCM.POSTANE2 ---
Anesthesia Postop Eval I Sum Postop Eval Completion status Anesthesia document: Postop Eval 1 completed: Yes Anesthesia Postop Eval I Summary Anesthesia Postop Eval I Summary: Anesthesia Postop Eval I: Assessment Summary Airway patent Yes 08/21/25 14:48 [email or web address] Spontaneous unlabored Yes 08/21/25 14:48 [email or web address] respirations Mental status Awake,Calm 08/21/25 14:48 [email or web address] nausea No 08/21/25 14:48 [email or web address] Vomiting No 08/21/25 14:48 [email or web address] Anesthesia Postop Eval I: Fluid Summary Crystalloid volume administer 500 08/21/25 14:48 [email or web address] (ml) Colloids volume administered ( ml) Blood Product volume administered (ml) Total IV fluid infused 500 08/21/25 14:48 [email or web address] Anesthesia Postop Eval I: Summary Notes Anesthesia Complication No 08/21/25 14:48 [email or web address] Anesthesia Complication Comment: Post-operative progress note Anesthesia: Postop Eval II Evaluation Mental status: Awake and Calm Pain Level: 1 nausea: No Vomiting: No Complications Anesthesia Complication: No
== END 2025-08-21 15:29 | disposition home or self-care (01) ==
LOC: EN 12:33 → AC 12:34
PROVIDERS: Visit Provider Internal Medicine Gastroenterology
PROC: 0DJD8ZZ Inspection of Lower Intestinal Tract, Via Natural or Artificial Opening Endoscopic (ICD-10-PCS; CPT 45378; principal; 2025-08-21 13:40)
DX: R19.7 Diarrhea, unspecified (principal); I11.0 Hypertensive heart disease with heart failure; I50.9 Heart failure, unspecified; J44.9 Chronic obstructive pulmonary disease, unspecified; I48.91 Unspecified atrial fibrillation; E66.01 Morbid (severe) obesity due to excess calories; E78.00 Pure hypercholesterolemia, unspecified; Z79.01 Long term (current) use of anticoagulants; Z86.0100 Personal history of colon polyps, unspecified; K21.00 Gastro-esophageal reflux disease with esophagitis, without bleeding; R10.12 Left upper quadrant pain; D50.9 Iron deficiency anemia, unspecified; Z86.73 Personal history of transient ischemic attack (TIA), and cerebral infarction without residual deficits; Z79.899 Other long term (current) drug therapy; F41.9 Anxiety disorder, unspecified; F32.A Depression, unspecified; Z90.710 Acquired absence of both cervix and uterus; Z90.49 Acquired absence of other specified parts of digestive tract; F17.290 Nicotine dependence, other tobacco product, uncomplicated; K22.89 Other specified disease of esophagus; K63.89 Other specified diseases of intestine
CPT/HCPCS: 44361; 88305; J2405